=== PATIENT | female | born 1975 | race Caucasian/White ===

== ENCOUNTER 2017-11-22 15:17 | Emergency (ER) | payer OTHER ==
[2017-11-22 16:37] LABS: Absolute Lymphocytes (CBC) 1.5 K/uL (0.7-4.9); Absolute Monocytes 0.5 K/uL (0.1-1.3); Absolute Neutrophil 6.2 K/uL (1.8-8.0); Basophils % 0.7 % (0-1.3); Eosinophils % 3.8 % (0-4.4); Hematocrit 44.1 % (36.0-45.0); Lymphocytes % 17.9 % (15.3-44.8); MCH 28.2 pg (27.0-35.0); MCV 85.8 fL (80-100); MPV 7.6 fL (7.6-11.3); Monocytes % 6.1 % (3.3-12.3); RBC Red Blood Cell Count 5.14 M/uL (3.86-4.86)
[2017-11-22 16:46] LABS: ALT/SGPT 32 U/L (12-78); AST/SGOT 16 U/L (15-37); Albumin 3.3 g/dL (3.4-5.0); Alkaline Phosphatase 123 U/L (45-117); BUN Blood Urea Nitrogen 10 mg/dL (7-18); Bicarbonate 27 mmol/L (21-32); Bilirubin Direct < 0.1 mg/dL (0-0.2); Bilirubin Total 0.3 mg/dL (0.2-1.0); Glucose Level 90 mg/dL (74-106); Protein, Total 7.1 g/dL (6.4-8.2); Sodium Level 141 mmol/L (136-145)
--- NOTE | 2017-11-22 16:50 | ER ---
Nurse's Notes [facility] Name: Skye Figueroa Age: 42 yrs Sex: Female : 1975 Arrival Date: 11/22/2017 Time: 15:19 Bed 25 Private MD: Terry Felix E Diagnosis: Tinea corporis Presentation: 11/22 15:29 Presenting complaint: Patient states: " I was dx w/ a fungal infection at Dr Hood's ph office and he gave me some cream to put on it. It started getting better but then yesterday it started swelling up and burning." Rash noted to L outer calve, redness and swelling noted, pt reports itching, burning and pain, denies fever. Transition of care: patient was not received from another setting of care. Onset of symptoms was November 22, 2017. Risk Assessment: Do you want to hurt yourself or someone else? Patient reports no desire to harm self or others. Initial Sepsis Screen: Does the patient meet any 2 criteria? No. Patient's initial sepsis screen is negative. Does the patient have a suspected source of infection? No. Patient's initial sepsis screen is negative. Care prior to arrival: None. 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 - Social history:: Smoking status: Patient/guardian denies using tobacco. - Ebola Screening: : No symptoms or risks identified at this time. Screenin:26 Abuse screen: Denies threats or abuse. Denies injuries from another. Nutritional kr2 screening: No deficits noted. Tuberculosis screening: No symptoms or risk factors identified. Fall Risk None identified. Assessment: 15:40 General: Appears in no apparent distress. comfortable, obese, Behavior is calm, kr2 cooperative. Pain: Complains of pain in left lower leg Pain does not radiate. Pain currently is 2 out of 10 on a pain scale. Quality of pain is described as burning, tender, Is continuous, Alleviated by nothing. Neuro: Level of Consciousness is awake, alert, obeys commands, Oriented to person, place, time, situation. Cardiovascular: Capillary refill < 3 seconds in bilateral fingers Patient's skin is warm and dry. Respiratory: Airway is patent Respiratory effort is even, unlabored, Respiratory pattern is regular. Derm: Skin is healthy with good turgor, Skin is pink, warm \\T\\ dry. Rash noted that is itchy, red, Patient reports she was seen by her primary doctor and given an antifungal cream. Initially it got better but today it was worse. Rash is contained to small area on left lower leg. 17:02 Reassessment: Patient appears in no apparent distress at this time. Patient and/or kr2 family updated on plan of care and expected duration. Pain level reassessed. Patient is alert, oriented x 3, equal unlabored respirations, skin warm/dry/pink. Vital Signs: 15:34 BP 132 / 70; Pulse 75; Resp 18; Temp 98.3; Pulse Ox 97% on R/A; Pain 7/10; ph ED Course: 15:19 Patient arrived in ED. mr 15:19 Terry Felix MD is Private Physician. mr 15:32 Triage completed. ph 15:34 Arm band placed on Patient placed in an exam room. ph 15:35 Gallito Kincaid PA is PHCP. cp 15:36 Gallito Navarrete MD is Attending Physician. cp 15:40 Patient has correct armband on for positive identification. Bed in low position. Call kr2 light in reach. Side rails up X 1. Pulse ox on. NIBP on. Head of bed elevated. 15:46 Jazmin Nj, CALEB is Primary Nurse. kr2 16:18 Inserted saline lock: 20 gauge antecubital area, using aseptic technique. Blood ss collected. 16:49 Terry Felix MD is Referral Physician. cp 17:02 No provider procedures requiring assistance completed. IV discontinued, intact, kr2 bleeding controlled, No redness/swelling at site. Pressure dressing applied. Administered Medications: No medications were administered Outcome: 16:49 Discharge ordered by . cp 17:02 Discharged to home ambulatory. kr2 17:02 Condition: good 17:02 Discharge instructions given to patient, Instructed on discharge instructions, follow up and referral plans. medication usage, Demonstrated understanding of instructions, follow-up care, medications, Prescriptions given X 2. 17:03 Patient left the ED. kr2 Signatures: Maya Roe Shelby, RN RN Geri Almeida RN RN Gallito Corbett PA PA cp Reaves, Karey, RN RN kr2
--- NOTE | 2017-11-22 16:51 | EDPHYS ---
Physician Documentation [facility] Name: Skye Figueroa Age: 42 yrs Sex: Female : 1975 Arrival Date: 11/22/2017 Time: 15:19 Bed 25 Private MD: Terry Felix E ED Physician Gallito Navarrete HPI: 11/22 16:00 This 42 yrs old Female presents to ER via Ambulatory with complaints of Leg cp Infection. 16:00 Onset: The symptoms/episode began/occurred at an unknown time. cp 16:00 Associated signs and symptoms: Pertinent positives: burning pain, Pertinent negatives: cp fever. Patient reports she was prescribed antifungual and steroid cream to use twice per day. Has been using cream for past 1 week. Initial improvement, but now appears worse. 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 - Social history:: Smoking status: Patient/guardian denies using tobacco. - Ebola Screening: : No symptoms or risks identified at this time. ROS: 16:05 Constitutional: Negative for body aches, chills, fever, poor PO intake. cp 16:05 Eyes: Negative for injury, pain, redness, and discharge. cp 16:05 ENT: Negative for drainage from ear(s), ear pain, sore throat, difficulty swallowing, difficulty handling secretions. 16:05 Cardiovascular: Negative for chest pain, palpitations. 16:05 Respiratory: Negative for cough, shortness of breath, wheezing. 16:05 Abdomen/GI: Negative for abdominal pain, nausea, vomiting, and diarrhea, constipation. 16:05 MS/extremity: Positive for pain, of the left lower leg. 16:05 Skin: Positive for rash, of the left lower leg. 16:05 All other systems are negative. Exam: 16:11 Constitutional: The patient appears in no acute distress, alert, awake, non-toxic, well cp developed, well nourished. 16:11 Head/Face: Normocephalic, atraumatic. cp 16:11 Eyes: Periorbital structures: appear normal, Conjunctiva: normal, no exudate, no injection, Lids and lashes: appear normal, bilaterally. 16:11 ENT: External ear(s): are unremarkable, Nose: is normal, Mouth: is normal, Posterior pharynx: is normal, airway is patent. 16:11 Chest/axilla: Inspection: normal. 16:11 Cardiovascular: Rate: normal. 16:11 Respiratory: the patient does not display signs of respiratory distress, Respirations: normal, no use of accessory muscles, no retractions, no splinting, no tachypnea, labored breathing, is not present. 16:11 Skin: abscess, not appreciated, cellulitis, is not appreciated, injury, is not appreciated, consistent with ringworm, on the lateral aspect left lower leg. Vital Signs: 15:34 BP 132 / 70; Pulse 75; Resp 18; Temp 98.3; Pulse Ox 97% on R/A; Pain 7/10; ph MDM: 15:37 Patient medically screened. 11/22 15:54 Order name: CBC with Diff; Complete Time: 16:44 cp 11/22 16:45 Interpretation: Normal except: RBC 5.14; MCV 85.8. cp 11/22 15:54 Order name: BMP; Complete Time: 16:48 cp 11/22 16:48 Interpretation: Normal except: GFR 79. cp 11/22 15:54 Order name: LFT's; Complete Time: 16:48 cp 11/22 16:48 Interpretation: Normal except: ALK 123; ALB 3.3; GLOB 3.8; A/G 0.9. cp Administered Medications: No medications were administered Disposition: 11/23 06:44 Co-signature as Attending Physician, Gallito Navarrete MD I agree with the assessment and cj plan of care. Disposition: 11/22/17 16:49 Discharged to Home. Impression: Tinea corporis. - Condition is Stable. - Discharge Instructions: Body Ringworm. - Prescriptions for Diflucan 100 mg Oral tablet - take 1 tablet by ORAL route once daily for 7 days; 7 tablet. Clotrimazole 1 % Topical Cream - Apply to affected area 1 application by TOPICAL route every 12 hours; 15 gram. - Medication Reconciliation Form, Thank You Letter, Antibiotic Education, Prescription Opioid Use form. - Follow up: Terry Felix MD; When: 1 week; Reason: rash persists. - Problem is new. - Symptoms are unchanged. Signatures: Dispatcher [employer] EDOK Gallito Navarrete MD MD cha Hall, Patricia RN RN Galilto Kincaid PA PA cp Jazmin Nj RN RN kr2 Corrections: (The following items were deleted from the chart) 11/22 17:03 16:49 11/22/2017 16:49 Discharged to Home. Impression: Tinea corporis. Condition is kr2 Stable. Forms are Medication Reconciliation Form, Thank You Letter, Antibiotic Education, Prescription Opioid Use. Follow up: Terry Felix; When: 1 week; Reason: rash persists. Problem is new. Symptoms are unchanged. cp
[2017-11-22 17:08] VITALS: BP 132/70; TEMP 98.3; O2SAT 97
== END 2017-11-22 17:03 | disposition home or self-care (01) ==
LOC: ER 15:17
DX: B35.4 Tinea corporis (principal); Z88.5 Allergy status to narcotic agent; Z88.6 Allergy status to analgesic agent
CPT/HCPCS: 36415; 80048; 80076; 85025; 99284

== ENCOUNTER 2018-05-14 02:03 | Emergency (ER) | payer OTHER ==
--- OUTSIDE RECORDS SUMMARY | 2018-05-14 02:06 | XMS REPORT ---
:1975 [facility] Address [address] [place] [address] Dr. Antoine. [address] [place] [id number] Care Team Providers Name Role Phone Unavailable Unavailable Unavailable Problems This patient has no known problems. Allergies, Adverse Reactions, Alerts This patient has no known allergies or adverse reactions. Medications This patient has no known medications.
--- NOTE | 2018-05-14 02:40 | EDPHYS ---
Physician Documentation [facility] Name: Skye Figueroa Age: 43 yrs Sex: Female : 1975 Arrival Date: 05/14/2018 Time: 02:08 Bed 14 Private MD: Terry Felix E ED Physician Tima Black HPI: 05/14 02:34 This 43 yrs old Female presents to ER via Ambulatory with complaints of Rash. pkl 02:34 The rash is located on the both upper extremities, neck and anterior chest. The rash pkl can be described as papular. Onset: The symptoms/episode began/occurred 2 week(s) ago. Associated signs and symptoms: Pertinent positives: itching. The patient has not experienced similar symptoms in the past. 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 - Social history:: Smoking status: Patient/guardian denies using tobacco, Patient/guardian denies using alcohol. - Ebola Screening: : No symptoms or risks identified at this time. ROS: 02:34 Eyes: Negative for injury, pain, redness, and discharge, ENT: Negative for injury, pkl pain, and discharge, Neck: Negative for injury, pain, and swelling, Cardiovascular: Negative for chest pain, palpitations, and edema, Respiratory: Negative for shortness of breath, cough, wheezing, and pleuritic chest pain, Abdomen/GI: Negative for abdominal pain, nausea, vomiting, diarrhea, and constipation, Back: Negative for injury and pain, : Negative for injury, bleeding, discharge, and swelling, MS/Extremity: Negative for injury and deformity, Neuro: Negative for headache, weakness, numbness, tingling, and seizure. 02:34 Skin: Positive for rash, of the both upper extremities, neck and anterior chest. Exam: 02:34 Head/Face: Normocephalic, atraumatic. Eyes: Pupils equal round and reactive to light, pkl extra-ocular motions intact. Lids and lashes normal. Conjunctiva and sclera are non-icteric and not injected. Cornea within normal limits. Periorbital areas with no swelling, redness, or edema. ENT: Nares patent. No nasal discharge, no septal abnormalities noted. Tympanic membranes are normal and external auditory canals are clear. Oropharynx with no redness, swelling, or masses, exudates, or evidence of obstruction, uvula midline. Mucous membranes moist. Neck: Trachea midline, no thyromegaly or masses palpated, and no cervical lymphadenopathy. Supple, full range of motion without nuchal rigidity, or vertebral point tenderness. No Meningismus. Chest/axilla: Normal chest wall appearance and motion. Nontender with no deformity. No lesions are appreciated. Cardiovascular: Regular rate and rhythm with a normal S1 and S2. No gallops, murmurs, or rubs. Normal PMI, no JVD. No pulse deficits. Respiratory: Lungs have equal breath sounds bilaterally, clear to auscultation and percussion. No rales, rhonchi or wheezes noted. No increased work of breathing, no retractions or nasal flaring. Abdomen/GI: Soft, non-tender, with normal bowel sounds. No distension or tympany. No guarding or rebound. No evidence of tenderness throughout. Back: No spinal tenderness. No costovertebral tenderness. Full range of motion. MS/ Extremity: Pulses equal, no cyanosis. Neurovascular intact. Full, normal range of motion. Neuro: Awake and alert, GCS 15, oriented to person, place, time, and situation. Cranial nerves II-XII grossly intact. Motor strength 5/5 in all extremities. Sensory grossly intact. Cerebellar exam normal. Normal gait. 02:34 Skin: on the both upper extremities, neck and anterior chest. Vital Signs: 02:10 BP 131 / 96; Pulse 77; Resp 16; Temp 97.9(O); Pulse Ox 100% on R/A; Weight 113.4 kg jb4 (R); Height 5 ft. 4 in. (162.56 cm) (R); Pain 0/10; 02:45 BP 126 / 69; Pulse 81; Resp 16; Pulse Ox 95% ; jb4 02:10 Body Mass Index 42.91 (113.40 kg, 162.56 cm) jb4 MDM: 02:28 Patient medically screened. pkl 02:34 Data reviewed: vital signs, nurses notes. pkl Administered Medications: 02:44 Drug: Decadron 10 mg Route: IM; Site: right gluteus; jb4 03:09 Follow up: Response: No adverse reaction jb4 Disposition: 05/14/18 02:40 Discharged to Home. Impression: Contact dermatitis. - Condition is Stable. - Medication Reconciliation Form, Thank You Letter, Antibiotic Education, Prescription Opioid Use form. - Follow up: Christiano Cool MD; When: 2 - 3 days; Reason: Re-evaluation by your physician. - Problem is new. - Symptoms are unchanged. Signatures: Tima Black MD MD pkl Charlie Abbott RN RN jb4 Corrections: (The following items were deleted from the chart) 03:10 02:40 05/14/2018 02:40 Discharged to Home. Impression: Contact dermatitis. Condition is jb4 Stable. Forms are Medication Reconciliation Form, Thank You Letter, Antibiotic Education, Prescription Opioid Use. Follow up: Christiano Cool; When: 2 - 3 days; Reason: Re-evaluation by your physician. Problem is new. Symptoms are unchanged. pkl
--- NOTE | 2018-05-14 02:40 | ER ---
Nurse's Notes [facility] Name: Skye Figueroa Age: 43 yrs Sex: Female : 1975 Arrival Date: 05/14/2018 Time: 02:08 Bed 14 Private MD: Terry Felix E Diagnosis: Contact dermatitis Presentation: 05/14 02:10 Presenting complaint: Patient states: I have had a rash for the past 2 weeks and it has jb4 not gotten any better and is now getting worse. I took Benadryl at 2330 tonight. Transition of care: patient was not received from another setting of care. Onset of symptoms was April 29, 2018. Risk Assessment: Do you want to hurt yourself or someone else? Patient reports no desire to harm self or others. Initial Sepsis Screen: Does the patient meet any 2 criteria? No. Patient's initial sepsis screen is negative. Does the patient have a suspected source of infection? No. Patient's initial sepsis screen is negative. Care prior to arrival: None. 02:10 Method Of Arrival: Ambulatory jb4 02:10 Acuity: NIDA 4 jb4 Triage Assessment: 02:10 General: Appears in no apparent distress. comfortable, Behavior is calm, cooperative, jb4 appropriate for age. Pain: Denies pain. EENT: No signs and/or symptoms were reported regarding the EENT system. Neuro: Level of Consciousness is awake, alert, obeys commands, Oriented to person, place, time, situation. Cardiovascular: Patient's skin is warm and dry. Respiratory: Airway is patent Respiratory effort is even, unlabored, Respiratory pattern is regular, symmetrical, Breath sounds are clear bilaterally. Denies shortness of breath labored breathing. GI: No signs and/or symptoms were reported involving the gastrointestinal system. : No signs and/or symptoms were reported regarding the genitourinary system. Derm: Skin is intact, Skin is pink, warm \T\ dry. Rash noted that is itchy, red, Reports itching. Musculoskeletal: Circulation, motion, and sensation intact. 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 - Social history:: Smoking status: Patient/guardian denies using tobacco, Patient/guardian denies using alcohol. - Ebola Screening: : No symptoms or risks identified at this time. Screenin:10 Abuse screen: Denies threats or abuse. Nutritional screening: No deficits noted. jb4 Tuberculosis screening: No symptoms or risk factors identified. Fall Risk None identified. Assessment: 02:10 General: see triage assessment.. jb4 03:00 Reassessment: Patient appears in no apparent distress at this time. Patient and/or jb4 family updated on plan of care and expected duration. Pain level reassessed. Patient is alert, oriented x 3, equal unlabored respirations, skin warm/dry/pink. Vital Signs: 02:10 BP 131 / 96; Pulse 77; Resp 16; Temp 97.9(O); Pulse Ox 100% on R/A; Weight 113.4 kg jb4 (R); Height 5 ft. 4 in. (162.56 cm) (R); Pain 0/10; 02:45 BP 126 / 69; Pulse 81; Resp 16; Pulse Ox 95% ; jb4 02:10 Body Mass Index 42.91 (113.40 kg, 162.56 cm) jb4 ED Course: 02:08 Patient arrived in ED. es 02:08 Terry Felix MD is Private Physician. es 02:10 Arm band placed on left wrist. jb4 02:10 Patient has correct armband on for positive identification. Bed in low position. Call jb4 light in reach. Side rails up X 1. Pulse ox on. NIBP on. 02:16 Charlie Abbott, CALEB is Primary Nurse. jb4 02:18 Triage completed. jb4 02:28 Tima Black MD is Attending Physician. pkl 02:39 Christiano Cool MD is Referral Physician. pkl 03:08 No provider procedures requiring assistance completed. Patient did not have IV access jb4 during this emergency room visit. Administered Medications: 02:44 Drug: Decadron 10 mg Route: IM; Site: right gluteus; jb4 03:09 Follow up: Response: No adverse reaction jb4 Outcome: 02:40 Discharge ordered by . roman 03:08 Discharged to home ambulatory. jb4 03:08 Condition: stable 03:08 Discharge instructions given to patient, Instructed on discharge instructions, follow up and referral plans. medication usage, Demonstrated understanding of instructions, follow-up care, medications, Prescriptions given X 3. 03:10 Patient left the ED. jb4 Signatures: Tima Black MD MD pkl Salyer, Edna es Bryson, James, RN RN jb4
[2018-05-14] MEDS ORDERED: DEXAMETHASONE 4 MG/ML VIAL ONE (02:48)
[2018-05-14 03:14] VITALS: TEMP 97.9
[2018-05-14 03:15] VITALS: BP 126/69; O2SAT 95
== END 2018-05-14 03:10 | disposition home or self-care (01) ==
LOC: ER 02:03
DX: L25.9 Unspecified contact dermatitis, unspecified cause (principal); G43.909 Migraine, unspecified, not intractable, without status migrainosus; Z79.899 Other long term (current) drug therapy
CPT/HCPCS: 96372; 99283

== ENCOUNTER 2018-06-21 17:14 | Emergency (ER) | payer OTHER ==
--- OUTSIDE RECORDS SUMMARY | 2018-06-21 17:17 | XMS REPORT ---
:1975 [facility] Address [address] [place] [address] Dr. Antoine. [address] [place] [id number] Care Team Providers Name Role Phone Unavailable Unavailable Unavailable Problems This patient has no known problems. Allergies, Adverse Reactions, Alerts This patient has no known allergies or adverse reactions. Medications This patient has no known medications.
--- NOTE | 2018-06-21 18:12 | ER ---
Nurse's Notes [facility] Name: Skye Figueroa Age: 43 yrs Sex: Female : 1975 Arrival Date: 06/21/2018 Time: 17:17 Bed 12 Private MD: Terry Felix E Diagnosis: Allergic contact dermatitis Presentation: 06/21 17:18 Presenting complaint: Patient states: "rash all over my body. Last time this came up I sv was seen here and Dr Navarrete gave me some prescriptions. I'm under a lot of stress and that's what flares it up.". Transition of care: patient was not received from another setting of care. Onset of symptoms was June 19, 2018. Care prior to arrival: None. 17:18 Method Of Arrival: Ambulatory sv 17:18 Acuity: NIDA 5 sv 18:17 Risk Assessment: Do you want to hurt yourself or someone else? Patient reports no sv desire to harm self or others. Initial Sepsis Screen: Does the patient meet any 2 criteria? No. Patient's initial sepsis screen is negative. Does the patient have a suspected source of infection? No. Patient's initial sepsis screen is negative. Triage Assessment: 17:18 General: Appears in no apparent distress. comfortable, obese, well groomed, well sv developed, Behavior is calm, cooperative, appropriate for age. Pain: Denies pain. Neuro: Level of Consciousness is awake, alert, obeys commands, Oriented to person, place, time, situation, Moves all extremities. Full function Gait is steady. Respiratory: Respiratory effort is even, unlabored, Respiratory pattern is regular, symmetrical. Derm: Skin is pink, warm \\T\\ dry. Rash noted that is itchy, raised, on chest, right arm and left arm. Musculoskeletal: Range of motion: intact in all extremities. Historical: - Allergies: 17:20 Naproxen; sv 17:20 tramadol; sv - PMHx: 17:20 BRAIN TUMOR; Hydrocephalus; Migraines; sv - PSHx: 17:20 shunt; Knee surgery; Appendectomy; Cholecystectomy; new shunt 2010; eye sx; brain; sv - Immunization history:: Flu vaccine is not up to date. - Social history:: Smoking status: Patient/guardian denies using tobacco. - Ebola Screening: : No symptoms or risks identified at this time. Screenin:18 Abuse screen: Denies threats or abuse. Denies injuries from another. Nutritional sv screening: No deficits noted. Tuberculosis screening: No symptoms or risk factors identified. Fall Risk None identified. Assessment: 18:01 Reassessment: Patient appears in no apparent distress at this time. No changes from sv previously documented assessment. Patient and/or family updated on plan of care and expected duration. Pain level reassessed. Patient is alert, oriented x 3, equal unlabored respirations, skin warm/dry/pink. 18:16 Reassessment: Patient appears in no apparent distress at this time. No changes from sv previously documented assessment. Patient and/or family updated on plan of care and expected duration. Pain level reassessed. Patient is alert, oriented x 3, equal unlabored respirations, skin warm/dry/pink. Vital Signs: 17:20 BP 155 / 90; Pulse 90; Resp 18; Temp 98.2; Pulse Ox 96% ; Weight 127.01 kg; Height 5 sv ft. 4 in. (162.56 cm); Pain 0/10; 17:20 Body Mass Index 48.06 (127.01 kg, 162.56 cm) sv ED Course: 17:17 Patient arrived in ED. mr 17:18 Terry Felix MD is Private Physician. mr 17:18 Patient has correct armband on for positive identification. Call light in reach. Door sv closed. 17:19 Triage completed. sv 17:20 Arm band placed on. sv 17:39 Susan Wilson FNP-C is PHCP. snw 17:39 Gallito Navarrete MD is Attending Physician. snw 17:59 Hollie Marks, ACLEB is Primary Nurse. iw 18:11 Terry Felix MD is Referral Physician. snw 18:16 No provider procedures requiring assistance completed. Patient did not have IV access sv during this emergency room visit. Administered Medications: 18:16 Drug: Atarax 50 mg Route: PO; sv 18:16 Follow up: Response: Medication administered at discharge. sv Outcome: 18:11 Discharge ordered by . snw 18:16 Discharged to home ambulatory. sv 18:16 Condition: stable 18:16 Discharge instructions given to patient, Instructed on discharge instructions, follow up and referral plans. medication usage, Demonstrated understanding of instructions, follow-up care, medications, Prescriptions given X 2. 18:17 Patient left the ED. sv Signatures: Antonieta Bullock, RN RN Susan Morrison, ESTHETICIAN FACIALIST-C ESTHETICIAN FACIALIST-Csnw Bhupinder Talita mr Hollie Marks, CALEB RN iw
--- NOTE | 2018-06-21 18:12 | EDPHYS ---
Physician Documentation [facility] Name: Skye Figueroa Age: 43 yrs Sex: Female : 1975 Arrival Date: 06/21/2018 Time: 17:17 Bed 12 Private MD: Terry Felix E ED Physician Gallito Navarrete HPI: 06/21 18:09 This 43 yrs old Female presents to ER via Ambulatory with complaints of Rash. snw 18:09 The patient's rash thought to be caused by Dermatitis. The rash is located on the left snw arm and right arm and chest. The rash can be described as erythematous, papular, patchy. Onset: The symptoms/episode began/occurred suddenly. Associated signs and symptoms: Pertinent positives: itching. Severity of symptoms: At their worst the symptoms were mild moderate. The patient has experienced similar episodes in the past. It is unknown whether or not the patient has recently seen a physician. Historical: - Allergies: 17:20 Naproxen; sv 17:20 tramadol; sv - PMHx: 17:20 BRAIN TUMOR; Hydrocephalus; Migraines; sv - PSHx: 17:20 shunt; Knee surgery; Appendectomy; Cholecystectomy; new shunt 2010; eye sx; brain; sv - Immunization history:: Flu vaccine is not up to date. - Social history:: Smoking status: Patient/guardian denies using tobacco. - Ebola Screening: : No symptoms or risks identified at this time. ROS: 18:09 Constitutional: Negative for fever, chills, and weight loss, Eyes: Negative for injury, snw pain, redness, and discharge, ENT: Negative for injury, pain, and discharge, Neck: Negative for injury, pain, and swelling, Cardiovascular: Negative for chest pain, palpitations, and edema, Respiratory: Negative for shortness of breath, cough, wheezing, and pleuritic chest pain, Abdomen/GI: Negative for abdominal pain, nausea, vomiting, diarrhea, and constipation, Back: Negative for injury and pain, : Negative for injury, bleeding, discharge, and swelling, MS/Extremity: Negative for injury and deformity, Neuro: Negative for headache, weakness, numbness, tingling, and seizure, Psych: Negative for depression, anxiety, suicide ideation, homicidal ideation, and hallucinations. 18:09 Skin: Positive for rash. Exam: 18:10 Constitutional: This is a well developed, well nourished patient who is awake, alert, snw and in no acute distress. Head/Face: Normocephalic, atraumatic. Eyes: Pupils equal round and reactive to light, extra-ocular motions intact. Lids and lashes normal. Conjunctiva and sclera are non-icteric and not injected. Cornea within normal limits. Periorbital areas with no swelling, redness, or edema. ENT: Nares patent. No nasal discharge, no septal abnormalities noted. Tympanic membranes are normal and external auditory canals are clear. Oropharynx with no redness, swelling, or masses, exudates, or evidence of obstruction, uvula midline. Mucous membranes moist. Neck: Trachea midline, no thyromegaly or masses palpated, and no cervical lymphadenopathy. Supple, full range of motion without nuchal rigidity, or vertebral point tenderness. No Meningismus. Chest/axilla: Normal chest wall appearance and motion. Nontender with no deformity. No lesions are appreciated. Cardiovascular: Regular rate and rhythm with a normal S1 and S2. No gallops, murmurs, or rubs. Normal PMI, no JVD. No pulse deficits. Respiratory: Lungs have equal breath sounds bilaterally, clear to auscultation and percussion. No rales, rhonchi or wheezes noted. No increased work of breathing, no retractions or nasal flaring. Abdomen/GI: Soft, non-tender, with normal bowel sounds. No distension or tympany. No guarding or rebound. No evidence of tenderness throughout. Back: No spinal tenderness. No costovertebral tenderness. Full range of motion. MS/ Extremity: Pulses equal, no cyanosis. Neurovascular intact. Full, normal range of motion. Neuro: Awake and alert, GCS 15, oriented to person, place, time, and situation. Cranial nerves II-XII grossly intact. Motor strength 5/5 in all extremities. Sensory grossly intact. Cerebellar exam normal. Normal gait. Psych: Awake, alert, with orientation to person, place and time. Behavior, mood, and affect are within normal limits. 18:10 Skin: Appearance: normal except for affected area, rash can be described as erythematous, papular, contact dermatitis, on the left arm and right arm and chest. Vital Signs: 17:20 BP 155 / 90; Pulse 90; Resp 18; Temp 98.2; Pulse Ox 96% ; Weight 127.01 kg; Height 5 sv ft. 4 in. (162.56 cm); Pain 0/10; 17:20 Body Mass Index 48.06 (127.01 kg, 162.56 cm) sv MDM: 17:39 Patient medically screened. [facility] 18:12 Data reviewed: vital signs, nurses notes. Data interpreted: Pulse oximetry: on room air snw is 96 %. Interpretation: normal. Counseling: I had a detailed discussion with the patient and/or guardian regarding: the historical points, exam findings, and any diagnostic results supporting the discharge/admit diagnosis, the need for outpatient follow up, to return to the emergency department if symptoms worsen or persist or if there are any questions or concerns that arise at home. Special discussion: Based on the history and exam findings, there is no indication for further emergent testing or inpatient evaluation. I discussed with the patient/guardian the need to see the primary care provider for further evaluation of the symptoms. Administered Medications: 18:16 Drug: Atarax 50 mg Route: PO; 18:16 Follow up: Response: Medication administered at discharge. Disposition: 06/22 08:22 Co-signature as Attending Physician, Gallito Navarrete MD I agree with the assessment and [facility] plan of care. Disposition: 06/21/18 18:11 Discharged to Home. Impression: Allergic contact dermatitis. - Condition is Stable. - Discharge Instructions: Allergies, Adult, Contact Dermatitis. - Prescriptions for Vistaril 25 mg Oral capsule - take 1 capsule by ORAL route 3 times per day As needed; 30 capsule. Pepcid 20 mg Oral Tablet - take 1 tablet by ORAL route every 12 hours for 10 days; 20 tablet. - Medication Reconciliation Form, Thank You Letter, Antibiotic Education, Prescription Opioid Use form. - Follow up: Terry Felix MD; When: 2 - 3 days; Reason: Recheck today's complaints, Continuance of care, Re-evaluation by your physician. Follow up: Emergency Department; When: As needed; Reason: Worsening of condition. Signatures: Antonieta Bullock RN RN sv Anderson, Corey, MD MD cha Therrien, Shelly, SOLID DIE CUTTER-C SOLID DIE CUTTER-Csnw Corrections: (The following items were deleted from the chart) 06/21 18:17 18:11 06/21/2018 18:11 Discharged to Home. Impression: Allergic contact dermatitis. sv Condition is Stable. Forms are Medication Reconciliation Form, Thank You Letter, Antibiotic Education, Prescription Opioid Use. Follow up: Terry Felix; When: 2 - 3 days; Reason: Recheck today's complaints, Continuance of care, Re-evaluation by your physician. Follow up: Emergency Department; When: As needed; Reason: Worsening of condition. snw
[2018-06-21] MEDS ORDERED: hydrOXYzine HCl 25 MG TAB ONE (18:23)
[2018-06-21 18:53] VITALS: BP 155/90; TEMP 98.2; O2SAT 96
== END 2018-06-21 18:17 | disposition home or self-care (01) ==
LOC: ER 17:14
DX: L23.9 Allergic contact dermatitis, unspecified cause (principal); Z88.5 Allergy status to narcotic agent; Z98.2 Presence of cerebrospinal fluid drainage device
CPT/HCPCS: 99283

== ENCOUNTER 2018-09-21 14:51 | Emergency (ER) | payer OTHER ==
--- OUTSIDE RECORDS SUMMARY | 2018-09-21 14:53 | XMS REPORT ---
:1975 [facility] Address [address] [place] [address] Dr. Antoine. [address] [place] [id number] Care Team Providers Name Role Phone Unavailable Unavailable Unavailable Problems This patient has no known problems. Allergies, Adverse Reactions, Alerts This patient has no known allergies or adverse reactions. Medications This patient has no known medications.
--- NOTE | 2018-09-21 15:49 | RAD REPORT ---
EXAM DESCRIPTION: CT - Head Brain Wo Cont - 09/21/2018 3:39 pm CLINICAL HISTORY: brain tumor Headache, drowsiness COMPARISON: Head Brain Wo Cont dated 07/18/2015; HEAD BRAIN W O CONTRAST dated 12/19/2013; Head C Spin e Mpr Wo Con dated 08/02/2016 TECHNIQUE: All CT scans are performed using dose optimization technique as appropriate and may inclu de automated exposure control or mA/KV adjustment according to patient size. FINDINGS: No intracranial hemorrhage, hydrocephalus or extra-axial fluid collection.Right-sided shun t tubing is unchanged. Ventricular caliber is stable since comparative studies.No midline shift or ne w intracranial abnormality detected. The paranasal sinuses and mastoids are clear. Left posterior fossa postsurgical changes involving the calvarium. Vertebral arteries are atherosclerotic. IMPRESSION: No acute intracranial abnormality.
[2018-09-21] MEDS ORDERED: ACYCLOVIR 400 MG TABLET ONE (18:15)
[2018-09-21] MEDS ORDERED: predniSONE 20 MG TAB ONE (18:16)
--- NOTE | 2018-09-21 19:26 | EDPHYS ---
Physician Documentation [facility] Name: Skye Figueroa Age: 43 yrs Sex: Female : 1975 Arrival Date: 09/21/2018 Time: 14:52 Bed 13 Private MD: ED Physician Rigo Espino HPI: 09/21 15:42 This 43 yrs old Female presents to ER via Ambulatory with complaints of snw Numbness Of Face. 15:42 The patient's problem is reported as paresthesias, in left side of face. Onset: The snw symptoms/episode began/occurred 1 week(s) ago, and became persistent. Duration: The episodes are intermittent, the symptoms became persistent. Context: occurred at home, occurred while the patient was at rest, Possible contributing factors include: stress, pt with hx of vp of technology shunt, last revised 7 years ago. . Associated signs and symptoms: The patient has no apparent associated signs or symptoms. Severity of symptoms: At their worst the symptoms were mild moderate. Patient's baseline: Neuro: alert and fully oriented, Motor: no deficits, Ambulation: walks without assistance, Speech: normal, The patient has a previous history of hydrocephalus, vp of technology shunt. It is unknown whether or not the patient has had similar symptoms in the past. sees Dr. Eid. 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 - Social history:: Smoking status: Patient/guardian denies using tobacco. - Ebola Screening: : Patient denies travel to an Ebola-affected area in the 21 days before illness onset. ROS: 15:41 Constitutional: Negative for fever, chills, and weight loss, Eyes: Negative for injury, snw pain, redness, and discharge, ENT: Negative for injury, pain, and discharge, Neck: Negative for injury, pain, and swelling, Cardiovascular: Negative for chest pain, palpitations, and edema, Respiratory: Negative for shortness of breath, cough, wheezing, and pleuritic chest pain, Abdomen/GI: Negative for abdominal pain, nausea, vomiting, diarrhea, and constipation, Back: Negative for injury and pain, : Negative for injury, bleeding, discharge, and swelling, MS/Extremity: Negative for injury and deformity, Skin: Negative for injury, rash, and discoloration, Psych: Negative for depression, anxiety, suicide ideation, homicidal ideation, and hallucinations. 15:41 Neuro: Positive for numbness, of the left mormon, left zygomatic area and left cheek. Exam: 15:40 Constitutional: This is a well developed, well nourished patient who is awake, alert, snw and in no acute distress. Eyes: Pupils equal round and reactive to light, extra-ocular motions intact. Lids and lashes normal. Conjunctiva and sclera are non-icteric and not injected. Cornea within normal limits. Periorbital areas with no swelling, redness, or edema. ENT: Nares patent. No nasal discharge, no septal abnormalities noted. Tympanic membranes are normal and external auditory canals are clear. Oropharynx with no redness, swelling, or masses, exudates, or evidence of obstruction, uvula midline. Mucous membranes moist. Neck: Trachea midline, no thyromegaly or masses palpated, and no cervical lymphadenopathy. Supple, full range of motion without nuchal rigidity, or vertebral point tenderness. No Meningismus. Chest/axilla: Normal chest wall appearance and motion. Nontender with no deformity. No lesions are appreciated. Cardiovascular: Regular rate and rhythm with a normal S1 and S2. No gallops, murmurs, or rubs. Normal PMI, no JVD. No pulse deficits. Respiratory: Lungs have equal breath sounds bilaterally, clear to auscultation and percussion. No rales, rhonchi or wheezes noted. No increased work of breathing, no retractions or nasal flaring. Abdomen/GI: Soft, non-tender, with normal bowel sounds. No distension or tympany. No guarding or rebound. No evidence of tenderness throughout. Back: No spinal tenderness. No costovertebral tenderness. Full range of motion. Skin: Warm, dry with normal turgor. Normal color with no rashes, no lesions, and no evidence of cellulitis. MS/ Extremity: Pulses equal, no cyanosis. Neurovascular intact. Full, normal range of motion. Neuro: Awake and alert, GCS 15, oriented to person, place, time, and situation. Cranial nerves II-XII grossly intact. Motor strength 5/5 in all extremities. Sensory grossly intact. Cerebellar exam normal. Normal gait. Psych: Awake, alert, with orientation to person, place and time. Behavior, mood, and affect are within normal limits. 15:40 Head/face: Noted is no obvious of injury or deformity except paresthesias and numbness to left face and tongue. 17:43 Radiologist reports: negative for acute findings snw Vital Signs: 15:07 BP 133 / 82; Pulse 95; Resp 18; Temp 98.4; Pulse Ox 97% on R/A; Height 5 ft. 4 in. aj1 (162.56 cm) (R); Pain 0/10; 16:00 BP 132 / 90; Pulse 92; Resp 17; Temp 98.6(O); Pulse Ox 96% on R/A; Pain 0/10; rb1 16:53 BP 123 / 93; Pulse 94; Resp 17; Pulse Ox 96% on R/A; Pain 0/10; rb1 17:50 BP 161 / 89; Pulse 89; Resp 18; Temp 98.5(O); Pulse Ox 97% on R/A; Pain 0/10; rb1 MDM: 15:13 Patient medically screened. snw 17:42 Data reviewed: vital signs, nurses notes. Data interpreted: Pulse oximetry: on room air snw is 96 %. Interpretation: normal. Counseling: I had a detailed discussion with the patient and/or guardian regarding: the historical points, exam findings, and any diagnostic results supporting the discharge/admit diagnosis, the presence of at least one elevated blood pressure reading (>120/80) during this emergency department visit, radiology results, the need for outpatient follow up, to return to the emergency department if symptoms worsen or persist or if there are any questions or concerns that arise at home. Special discussion: Based on the history and exam findings, there is no indication for further emergent testing or inpatient evaluation. I discussed with the patient/guardian the need to see the primary care provider for further evaluation of the symptoms. 09/21 17:34 Order name: Head Brain Wo Cont; Complete Time: 17:43 EDMS Administered Medications: 18:03 Drug: predniSONE 40 mg Route: PO; rb1 18:09 Follow up: Response: Medication administered at discharge. rb1 18:03 Drug: Acyclovir 800 mg Route: PO; rb1 18:09 Follow up: Response: Medication administered at discharge. rb1 Disposition: 09/22 13:51 Co-signature as Attending Physician, Rigo Espino MD I agree with the assessment and kdr plan of care. Disposition: 09/21/18 17:39 Discharged to Home. Impression: Paresthesia of skin, Peter's palsy. - Condition is Stable. - Discharge Instructions: Peter Palsy, Adult, Paresthesia. - Prescriptions for Valtrex 1 g Oral Tablet - take 1 tablet by ORAL route every 8 hours for 7 days; 21 tablet. Prednisone 20 mg Oral Tablet - take 2 tablet by ORAL route once daily for 5 days; 10 tablet. Pepcid 20 mg Oral Tablet - take 1 tablet by ORAL route once daily for 10 days; 10 tablet. - Medication Reconciliation Form, Thank You Letter, Antibiotic Education, Prescription Opioid Use form. - Follow up: Private Physician; When: 2 - 3 days; Reason: Recheck today's complaints, Continuance of care, Re-evaluation by your physician. Follow up: Emergency Department; When: As needed; Reason: Worsening of condition. Signatures: Dispatcher [employer] [facility] Elma Waldrop RN RN aj1 Rigo Espino MD MD [facility] Susan Wilson, ADULT SCHOOL TEACHER-C ADULT SCHOOL TEACHER-Csnw Tara Hanson, RN RN rb1 Corrections: (The following items were deleted from the chart) 09/21 17:53 17:38 Head Brain Wo Cont+CT.RAD.BRZ ordered. [facility] 18:11 17:39 09/21/2018 17:39 Discharged to Home. Impression: Paresthesia of skin; Peter's rb1 palsy. Condition is Stable. Forms are Medication Reconciliation Form, Thank You Letter, Antibiotic Education, Prescription Opioid Use. Follow up: Private Physician; When: 2 - 3 days; Reason: Recheck today's complaints, Continuance of care, Re-evaluation by your physician. Follow up: Emergency Department; When: As needed; Reason: Worsening of condition. snw
--- NOTE | 2018-09-21 19:26 | ER ---
Nurse's Notes [facility] Name: Skye Figueroa Age: 43 yrs Sex: Female : 1975 Arrival Date: 09/21/2018 Time: 14:52 Bed 13 Private MD: Diagnosis: Paresthesia of skin;Peter's palsy Presentation: 09/21 15:03 Presenting complaint: Patient states: "For the last week I've been having off and on aj1 numbness on the left side of my tongue and mouth. I took Benadryl but it isn't helping." It comes and goes. Patient reports that she is having some numbness right now that started 10 minutes ago. 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 Transition of care: patient was not received from another setting of care. Onset of symptoms was September 21, 2018 at 15:06. Risk Assessment: Do you want to hurt yourself or someone else? Patient reports no desire to harm self or others. Initial Sepsis Screen: Does the patient meet any 2 criteria? No. Patient's initial sepsis screen is negative. Does the patient have a suspected source of infection? No. Patient's initial sepsis screen is negative. Care prior to arrival: None. 15:03 Method Of Arrival: Ambulatory aj1 15:03 Acuity: NIDA 3 aj1 Triage Assessment: 15:07 General: Appears in no apparent distress. comfortable, Behavior is calm, cooperative, aj1 appropriate for age. Pain: Denies pain. Neuro: Level of Consciousness is awake, alert, obeys commands, Oriented to person, place, time, situation, [place] are equal bilaterally Moves all extremities. Full function Speech is normal, Facial symmetry appears normal, Reports numbness left side of face. Cardiovascular: Patient's skin is warm and dry. Respiratory: Airway is patent Respiratory effort is even, unlabored, Respiratory pattern is regular, symmetrical. 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 - Social history:: Smoking status: Patient/guardian denies using tobacco. - Ebola Screening: : Patient denies travel to an Ebola-affected area in the 21 days before illness onset. Screenin:10 Abuse screen: Denies threats or abuse. Nutritional screening: No deficits noted. rb1 Tuberculosis screening: No symptoms or risk factors identified. Fall Risk None identified. Assessment: 15:10 General: Appears in no apparent distress. comfortable, Behavior is calm, cooperative. rb1 Pain: Denies pain. Neuro: Level of Consciousness is awake, alert, obeys commands, Oriented to person, place, time, situation, Reports numbness in left cheek and lips. Cardiovascular: Capillary refill < 3 seconds is brisk in bilateral fingers. Respiratory: Airway is patent Respiratory effort is even, unlabored, Respiratory pattern is regular, symmetrical. GI: No signs and/or symptoms were reported involving the gastrointestinal system. : No signs and/or symptoms were reported regarding the genitourinary system. Derm: Skin is pink, warm \\T\\ dry. Musculoskeletal: Range of motion: intact in all extremities. 16:00 Reassessment: Patient appears in no apparent distress at this time. No changes from rb1 previously documented assessment. 16:48 Reassessment: Called CT to get an update on when we would receive the results. They rb1 said that the results should be sent by fax. 17:00 Reassessment: Patient appears in no apparent distress at this time. Patient and/or rb1 family updated on plan of care and expected duration. Pain level reassessed. Patient is alert, oriented x 3, equal unlabored respirations, skin warm/dry/pink. Patient denies pain at this time. 18:00 Reassessment: Patient appears in no apparent distress at this time. No changes from rb1 previously documented assessment. Vital Signs: 15:07 BP 133 / 82; Pulse 95; Resp 18; Temp 98.4; Pulse Ox 97% on R/A; Height 5 ft. 4 in. aj1 (162.56 cm) (R); Pain 0/10; 16:00 BP 132 / 90; Pulse 92; Resp 17; Temp 98.6(O); Pulse Ox 96% on R/A; Pain 0/10; rb1 16:53 BP 123 / 93; Pulse 94; Resp 17; Pulse Ox 96% on R/A; Pain 0/10; rb1 17:50 BP 161 / 89; Pulse 89; Resp 18; Temp 98.5(O); Pulse Ox 97% on R/A; Pain 0/10; rb1 ED Course: 14:52 Patient arrived in ED. as 15:06 Triage completed. aj1 15:07 Arm band placed on. aj1 15:13 Susan Wilson FNP-C [facility] snw 15:13 Rigo Espino MD is Attending Physician. snw 16:06 Tara Hanson, RN is Primary Nurse. rb1 17:00 Patient has correct armband on for positive identification. Bed in low position. Call rb1 light in reach. Side rails up X 1. Pulse ox on. NIBP on. Warm blanket given. Pillow given. 17:34 Head Brain Wo Cont In Process Unspecified. EDMS 18:09 No provider procedures requiring assistance completed. Patient did not have IV access rb1 during this emergency room visit. Administered Medications: 18:03 Drug: predniSONE 40 mg Route: PO; rb1 18:09 Follow up: Response: Medication administered at discharge. rb1 18:03 Drug: Acyclovir 800 mg Route: PO; rb1 18:09 Follow up: Response: Medication administered at discharge. rb1 Outcome: 17:39 Discharge ordered by . snw 18:09 Discharged to home ambulatory. rb1 18:09 Condition: stable 18:09 Discharge instructions given to patient, Instructed on discharge instructions, follow up and referral plans. medication usage, Demonstrated understanding of instructions, follow-up care, medications, Prescriptions given X 3. 18:11 Patient left the ED. rb1 Signatures: Dispatcher [employer] EDDC Elma Waldrop, RN RN aj1 Susan Wilson FNP-C FNP-Dania Douglas as Tara Hanson, RN RN rb1
[2018-09-21 21:40] VITALS: BP 161/89; TEMP 98.5; O2SAT 97
== END 2018-09-21 18:11 | disposition home or self-care (01) ==
LOC: ER 14:51
DX: G51.0 Bell's palsy (principal); Z88.5 Allergy status to narcotic agent; Z88.6 Allergy status to analgesic agent; Z98.2 Presence of cerebrospinal fluid drainage device
CPT/HCPCS: 70450; 99284; J7512

== ENCOUNTER 2019-04-19 19:07 | Emergency (ER) | payer OTHER ==
--- OUTSIDE RECORDS SUMMARY | 2019-04-19 19:09 | XMS REPORT ---
:1975 [facility] Address [address] [place] [address] Dr. Antoine. [address] [place] [id number] Care Team Providers Name Role Phone Unavailable Unavailable Unavailable Problems This patient has no known problems. Allergies, Adverse Reactions, Alerts This patient has no known allergies or adverse reactions. Medications This patient has no known medications.
--- OUTSIDE RECORDS SUMMARY | 2019-04-19 19:09 | XMS REPORT | Summary of Care ---
:1975 Author Organization [facility] Address [address] [place] [id number] Care Team Providers Name Role Phone [facility] Primary [facility] Provider Unavailable Reason for Visit Reason Comments Notification The patient is requesting pain medication for her left knee. She fell on it and she is in pain Encounter Details Date Type Department Care Team Description 11/27/2018 Telephone [facility] Orthopaedic Denys Vázquez Notification ( The Surgery- Mirella Huston MD patient is requesting [address], [address] pain medication for her [address] left [place]. [place] [address] [place], [place] it and she is in pain ) [phone] [id number] Allergies Active Allergy Reactions Severity Noted Date Comments Tramadol Hallucinations 11/15/2014 documented as of this encounter (statuses as of 11/28/2018) Medications Medication Sig Dispensed Refills Start Date End Date Status gabapentin (NEURONTIN) Take 300 mg 0 Active 300 mg capsule by mouth 2 (two) times daily. norethin-e.estradiol Take 1 1 Package 12 09/29/2016 Active triphasic (ORTHO-NOVUM tablet by , ,) 0.5/0.75/1 mouth daily. mg- 35 mcg tabletIndications: control counseling, Menorrhagia with irregular cycle ibuprofen 800 mg Take 1 30 tablet 0 03/17/2017 Active tabletIndications: Pain tablet by pelvic mouth every 6 (six) hours as needed (heavy vaginal bleeding). HYDROCHLOROTHIAZIDE ORAL Take 10 mg 0 Active by mouth daily. acetaminophen-codeine Take 1 20 tablet 0 08/15/2017 Active 300-30 mg tablet tablet by mouth every 4 (four) hours as needed for Pain (scale 4-6) or Pain (scale 7-10). diclofenac 75 mg EC Take 1 60 tablet 1 11/28/2018 Active tablet tablet by mouth 2 (two) times daily with meals. diclofenac 75 mg EC Take 1 60 tablet 1 05/29/2018 11/29/19 Discontinued tablet tablet by 19 mouth 2 (two) times daily with meals. documented as of this encounter (statuses as of 11/28/2018) Active Problems Problem Noted Date Immune to varicella 09/30/2016 BMI 45.0-49.9, adult 09/29/2016 Excessive or frequent menstruation 09/22/2016 Knee pain, left 07/08/2015 documented as of this encounter (statuses as of 11/28/2018) Social History Tobacco Use Types Packs/Day Years Used Date Never Smoker Smokeless Tobacco: Never Used Alcohol Use Drinks/Week oz/Week Comments No 0 Standard drinks or equivalent 0.0 Sex Assigned at Date Recorded Not on file Job Start Date Occupation Industry Not on file Not on file Not on file Travel History Travel Start Travel End No recent travel history available. documented as of this encounter Last Filed Vital Signs Not on filedocumented in this encounter Plan of Treatment Health Maintenance Due Date Last Done Comments DTaP,Tdap,and Td Vaccines (1 - 1994 Tdap) MAMMOGRAM 2015 INFLUENZA VACCINE (#1) 2018 PAP SMEAR 09/30/2019 09/29/2016 PNEUMOCOCCAL 0-64 YEARS COMBINED Aged Out No longer eligible based on SERIES patient's age to complete this topic documented as of this encounter Results Not on filedocumented in this encounter Insurance Payer Benefit Plan / Subscriber ID Effective Dates Phone Address Type Group [facility] xxxxxxxxx 2016-Present Medicaid COMM PLAN - PLUS MANAGED MEDICAID documented as of this encounter
--- OUTSIDE RECORDS SUMMARY | 2019-04-19 19:09 | XMS REPORT | Summary of Care ---
:1975 Author Organization [facility] Address [address] [place] [address] Care Team Providers Name Role Phone Chrissie Francis [facility] Primary Care Provider Unavailable Reason for Visit Reason Comments Rx Concern/Question Encounter Details Date Type Department Care Team Description 11/28/2018 Telephone [facility] Orthopaedic Ismael Bradshaw, PAC Rx Concern/Question Surgery- [place] [address] [facility], [place] [address] [place] [id number] Allergies Active Allergy Reactions Severity Noted Date Comments Tramadol Hallucinations 11/15/2014 documented as of this encounter (statuses as of 11/29/2018) Medications Medication Sig Dispensed Refills Start Date End Date Status gabapentin (NEURONTIN) 300 Take 300 mg 0 Active mg capsule by mouth 2 (two) times daily. norethin-e.estradiol Take 1 tablet 1 Package 12 09/29/2016 Active triphasic (ORTHO-NOVUM by mouth , ,) 0.5/0.75/1 mg- daily. 35 mcg tabletIndications: control counseling, Menorrhagia with irregular cycle ibuprofen 800 mg Take 1 tablet 30 tablet 0 03/17/2017 Active tabletIndications: Pain by mouth pelvic every 6 (six) hours as needed (heavy vaginal bleeding). HYDROCHLOROTHIAZIDE ORAL Take 10 mg by 0 Active mouth daily. acetaminophen-codeine Take 1 tablet 20 tablet 0 08/15/2017 Active 300-30 mg tablet by mouth every 4 (four) hours as needed for Pain (scale 4-6) or Pain (scale 7-10). diclofenac 75 mg EC tablet Take 1 tablet 60 tablet 1 11/28/2018 Active by mouth 2 (two) times daily with meals. meloxicam (MOBIC) 7.5 mg Take 1 tablet 30 tablet 0 11/29/2018 12/29/2018 Active tablet by mouth daily before a meal for 30 days. documented as of this encounter (statuses as of 11/29/2018) Active Problems Problem Noted Date Immune to varicella 09/30/2016 BMI 45.0-49.9, adult 09/29/2016 Excessive or frequent menstruation 09/22/2016 Knee pain, left 07/08/2015 documented as of this encounter (statuses as of 11/29/2018) Social History Tobacco Use Types Packs/Day Years [...] ID Effective Dates Phone Address Type Group [facility] xxxxxxxxx 2016-Present Medicaid COMM PLAN - PLUS MANAGED MEDICAID documented as of this encounter
[2019-04-19] MEDS ORDERED: NA CHLORIDE 0.9% 500 ML ONE (19:55)
[2019-04-19 20:16] LABS: Absolute Lymphocytes (CBC) 1.6 K/uL (0.7-4.9); Basophils % 0.6 % (0-1.3); Hematocrit 43.7 % (36.0-45.0); Lymphocytes % 13.9 % (15.3-44.8); MPV 7.5 fL (7.6-11.3); RBC Red Blood Cell Count 5.39 M/uL (3.86-4.86)
[2019-04-19 20:29] LABS: Potassium 4.2 mmol/L (3.5-5.1)
--- NOTE | 2019-04-19 20:37 | RAD REPORT ---
EXAM DESCRIPTION: RAD - Chest Pa And Lat (2 Views) - 04/19/2019 8:22 pm CLINICAL HISTORY: Cough;SOB COMPARISON: Chest Single View dated 04/01/2017; Chest Pa And Lat (2 Views) dated 03/26/2017 TECHNIQUE: Frontal and lateral views of the chest were obtained. FINDINGS: The lungs are clear. Lung markings are similar to comparison. COUNTER ATTENDANT shunt tubing overlies th e right-side of the chest. Heart size is normal and central vasculature is within normal limits. No pleural effusion or pneumothorax seen. No acute bony finding noted. No aortic abnormality. Chest f indings are similar to comparison. IMPRESSION: No acute cardiopulmonary process.
--- NOTE | 2019-04-19 20:58 | ER ---
Nurse's Notes [facility] Name: Skye Figueroa Age: 44 yrs Sex: Female : 1975 Arrival Date: 04/19/2019 Time: 19:09 Bed 26 Private MD: Diagnosis: Acute laryngitis;Bronchitis, not specified as acute or chronic Presentation: 04/19 19:22 Presenting complaint: Patient states: "I've been feeling a little bad for the last 4 ca1 days. Then all of a sudden today I lost my voice, I started coughing, it hurts to breathe in and I get short of breath even with just sitting here right now". Reports vomiting 2 days ago. Reports chest pain with coughing. Denies N/V at this time. Denies fever. Transition of care: patient was not received from another setting of care. Onset of symptoms was April 19, 2019. Risk Assessment: Do you want to hurt yourself or someone else? Patient reports no desire to harm self or others. Initial Sepsis Screen: Does the patient meet any 2 criteria? No. Patient's initial sepsis screen is negative. Does the patient have a suspected source of infection? No. Patient's initial sepsis screen is negative. Care prior to arrival: None. 19:22 Method Of Arrival: Ambulatory ca1 19:22 Acuity: NIDA 3 ca1 Triage Assessment: 20:19 General: Appears in no apparent distress. comfortable. Respiratory: Onset: The mg2 symptoms/episode began/occurred 4 days ago, the patient has mild shortness of breath. 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 - Social history:: Smoking status: Patient/guardian denies using tobacco. - Ebola Screening: : Patient negative for fever greater than or equal to 101.5 degrees Fahrenheit, and additional compatible Ebola Virus Disease symptoms Patient denies exposure to infectious person Patient denies travel to an Ebola-affected area in the 21 days before illness onset No symptoms or risks identified at this time. Screenin:17 Abuse screen: Denies threats or abuse. Denies injuries from another. Nutritional mg2 screening: No deficits noted. Tuberculosis screening: No symptoms or risk factors identified. Fall Risk IV access (20 points). Assessment: 20:14 General: Appears in no apparent distress. comfortable, Behavior is calm, cooperative. mg2 Pain: Denies pain. Neuro: Level of Consciousness is awake, alert, obeys commands, Oriented to person, place, time, situation. Cardiovascular: Capillary refill < 3 seconds Patient's skin is warm and dry. Cardiovascular: Rhythm is regular. Respiratory: Airway is patent Respiratory effort is even, unlabored, Respiratory pattern is regular, symmetrical, Respiratory: Reports shortness of breath. GI: No signs and/or symptoms were reported involving the gastrointestinal system. : No signs and/or symptoms were reported regarding the genitourinary system. EENT: No signs and/or symptoms were reported regarding the EENT system. Derm: Skin is intact, is healthy with good turgor, Skin is pink, warm \\T\\ dry. normal. Musculoskeletal: Circulation, motion, and sensation intact. Capillary refill < 3 seconds. 21:09 Reassessment: Patient appears in no apparent distress at this time. Patient states mg2 feeling better. Vital Signs: 19:25 BP 133 / 78; Pulse 108; Resp 20 S; Temp 98.4(O); Pulse Ox 97% on R/A; Weight 117.93 kg ca1 (R); Height 5 ft. 4 in. (162.56 cm) (R); Pain 5/10; 21:00 BP 125 / 78; Pulse 98; Resp 18; Temp 98; Pulse Ox 100% on R/A; mg2 19:25 Body Mass Index 44.63 (117.93 kg, 162.56 cm) ca1 ED Course: 19:09 Patient arrived in ED. as 19:24 Triage completed. ca1 19:25 Arm band placed on right wrist. ca1 19:31 Barron Tinsley FNP-C [facility]. la1 19:31 Sam Parada MD is Attending Physician. la1 19:50 Gardose, Ajay, RN is Primary Nurse. mg2 20:10 Inserted saline lock: 20 gauge in right antecubital area, using aseptic technique. mg2 Blood collected. 20:17 Patient has correct armband on for positive identification. mg2 20:17 No provider procedures requiring assistance completed. mg2 20:23 Chest Pa And Lat (2 Views) XRAY In Process Unspecified. EDMS 21:01 IV discontinued, intact, bleeding controlled, No redness/swelling at site. Pressure mg2 dressing applied. Administered Medications: 20:14 Drug: NS 0.9% 500 ml Route: IV; Rate: bolus; Site: right antecubital; mg2 21:01 Follow up: Response: No adverse reaction; IV Status: Completed infusion; IV Intake: mg2 500ml Intake: 21:01 IV: 500ml; Total: 500ml. mg2 Outcome: 20:57 Discharge ordered by . la1 21:01 Discharged to home ambulatory, with family. mg2 21:01 Condition: stable 21:01 Discharge instructions given to patient, family, Instructed on discharge instructions, follow up and referral plans. medication usage, Demonstrated understanding of instructions, follow-up care, medications, Prescriptions given X 2. 21:10 Patient left the ED. mg2 Signatures: Dispatcher [employer] EDMS Dania Flynn Lee, ASBESTOS CEMENT SHEET SUPERVISOR-C ASBESTOS CEMENT SHEET SUPERVISOR-Cla1 Ajay North RN RN mg2 Candice Salgado RN RN ca1 Corrections: (The following items were deleted from the chart) 19:27 19:22 Presenting complaint: Patient states: "I've been feeling a little bad for the ca1 last 4 days. Then all of a sudden today I lost my voice, I started coughing, it hurts to breathe in and I get short of breath even with just sitting here right now". Reports vomiting 2 days ago. Denies N/V at this time. Denies fever. ca1 22:00 21:10 BP 125 / 78; Pulse 98bpm; Resp 18bpm; Pulse Ox 100% RA; Temp 98F; mg2 mg2
--- NOTE | 2019-04-19 20:58 | EDPHYS ---
Physician Documentation [facility] Name: Skye Figueroa Age: 44 yrs Sex: Female : 1975 Arrival Date: 04/19/2019 Time: 19:09 Bed 26 Private MD: ED Physician Sam Parada HPI: 04/19 19:49 This 44 yrs old Female presents to ER via Ambulatory with complaints of la1 Shortness Of Breath. 19:49 The patient has shortness of breath with light activity. Onset: The symptoms/episode la1 began/occurred 4 day(s) ago. Duration: The symptoms are continuous. The patient's shortness of breath is aggravated by nothing, is alleviated by nothing. Associated signs and symptoms: Pertinent positives: non-productive cough. Severity of symptoms: At their worst the symptoms were moderate. The patient has experienced a previous episode. Pt reports not feeling well for the last four days but cough that is getting worse in the last day along with some SOB. pt reports last time she felt this way she had pneumonia. 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 - Social history:: Smoking status: Patient/guardian denies using tobacco. - Ebola Screening: : Patient negative for fever greater than or equal to 101.5 degrees Fahrenheit, and additional compatible Ebola Virus Disease symptoms Patient denies exposure to infectious person Patient denies travel to an Ebola-affected area in the 21 days before illness onset No symptoms or risks identified at this time. ROS: 19:50 Eyes: Negative for injury, pain, redness, and discharge, ENT: Negative for injury, la1 pain, and discharge, Neck: Negative for injury, pain, and swelling, Cardiovascular: Negative for chest pain, palpitations, and edema. 19:50 Abdomen/GI: Negative for abdominal pain, nausea, vomiting, diarrhea, and constipation, Back: Negative for injury and pain, MS/Extremity: Negative for injury and deformity, Neuro: Negative for headache, weakness, numbness, tingling, and seizure. 19:50 Constitutional: Positive for malaise. 19:50 Respiratory: Positive for cough, with no reported sputum. Exam: 19:51 Constitutional: This is a well developed, well nourished patient who is awake, alert, la1 and in no acute distress. Head/Face: Normocephalic, atraumatic. Eyes: Pupils equal round and reactive to light, extra-ocular motions intact. Periorbital areas with no swelling, redness, or edema. ENT: Mucous membranes moist. Neck: Trachea midline, no thyromegaly or masses palpated, and no cervical lymphadenopathy. Supple, full range of motion without nuchal rigidity, or vertebral point tenderness. No Meningismus. Chest/axilla: Normal chest wall appearance and motion. Nontender with no deformity. No lesions are appreciated. Cardiovascular: Regular rate and rhythm with a normal S1 and S2. No gallops, murmurs, or rubs. Normal PMI, no JVD. No pulse deficits. 19:51 Abdomen/GI: Soft, non-tender, with normal bowel sounds. No distension or tympany. No guarding or rebound. No evidence of tenderness throughout. MS/ Extremity: Pulses equal, no cyanosis. Neurovascular intact. Full, normal range of motion. Neuro: Awake and alert, GCS 15, oriented to person, place, time, and situation. . Normal gait. 19:51 Respiratory: the patient does not display signs of respiratory distress, Respirations: normal, Breath sounds: decreased breath sounds, that are mild. Vital Signs: 19:25 BP 133 / 78; Pulse 108; Resp 20 S; Temp 98.4(O); Pulse Ox 97% on R/A; Weight 117.93 kg ca1 (R); Height 5 ft. 4 in. (162.56 cm) (R); Pain 5/10; 21:00 BP 125 / 78; Pulse 98; Resp 18; Temp 98; Pulse Ox 100% on R/A; mg2 19:25 Body Mass Index 44.63 (117.93 kg, 162.56 cm) ca1 MDM: 19:31 Patient medically screened. la1 20:55 Data reviewed: vital signs, nurses notes, lab test result(s), radiologic studies, and la1 as a result, I will discharge patient. Counseling: I had a detailed discussion with the patient and/or guardian regarding: the historical points, exam findings, and any diagnostic results supporting the discharge/admit diagnosis, lab results, the need for outpatient follow up, a family practitioner, to return to the emergency department if symptoms worsen or persist or if there are any questions or concerns that arise at home. Special discussion: Based on the patient's history, exam, and Dx evaluation, there is no indication for emergent intervention or inpatient Tx. It is understood by the patient/guardian that if the Sx's persist or worsen they need to return immediately for re-evaluation. 04/19 19:48 Order name: CBC with Diff; Complete Time: 20:42 la1 04/19 19:48 Order name: BMP; Complete Time: 20:42 la1 04/19 19:48 Order name: IV; Complete Time: 20:13 la1 04/19 19:48 Order name: Flu; Complete Time: 20:42 la1 04/19 19:48 Order name: Chest Pa And Lat (2 Views) XRAY; Complete Time: 20:42 la1 Administered Medications: 20:14 Drug: NS 0.9% 500 ml Route: IV; Rate: bolus; Site: right antecubital; mg2 21:01 Follow up: Response: No adverse reaction; IV Status: Completed infusion; IV Intake: mg2 500ml Disposition: 04/20 07:34 Co-signature as Attending Physician, Sam Parada MD I agree with the assessment and tw4 plan of care. Disposition: 04/19/19 20:57 Discharged to Home. Impression: Acute laryngitis, Bronchitis, not specified as acute or chronic. - Condition is Stable. - Discharge Instructions: Acute Bronchitis, Adult, Upper Respiratory Infection, Adult, Viral Respiratory Infection, Laryngitis, Yovv-uc-Uptm. - Prescriptions for Tessalon Perles 100 mg Oral Capsule - take 1 capsule by ORAL route every 8 hours As needed; 15 capsule. Zithromax Z- Pancho 250 mg Oral Tablet - take 1 tablet by ORAL route as directed for 5 days Day 1 - take two (2) tablets one time. Day 2, 3, 4 , 5 take one (1) tablet once daily.; 6 tablet. - Medication Reconciliation Form, Thank You Letter, Antibiotic Education, Family Work Release form. - Follow up: Private Physician; When: 2 - 3 days; Reason: Recheck today's complaints, Re-evaluation by your physician. Follow up: Emergency Department; When: As needed. - Problem is new. - Symptoms have improved. Signatures: Dispatcher [employer] EDMS Barron Tinsley, ENGRAVER BLOCK-C ENGRAVER BLOCK-Cla1 Sam Parada MD MD tw4 Ajay North, RN RN mg2 Candice Salgado RN RN ca1 Corrections: (The following items were deleted from the chart) 04/19 20:57 20:57 04/19/2019 20:57 Discharged to Home. Impression: Acute laryngitis; Bronchitis, la1 not specified as acute or chronic. Condition is Stable. Forms are Medication Reconciliation Form, Thank You Letter, Antibiotic Education, Prescription Opioid Use. Follow up: Private Physician; When: 2 - 3 days; Reason: Recheck today's complaints, Re-evaluation by your physician. Follow up: Emergency Department; When: As needed. la1 21:10 20:57 04/19/2019 20:57 Discharged to Home. Impression: Acute laryngitis; Bronchitis, mg2 not specified as acute or chronic. Condition is Stable. Forms are Medication Reconciliation Form, Thank You Letter, Antibiotic Education, Prescription Opioid Use. Follow up: Private Physician; When: 2 - 3 days; Reason: Recheck today's complaints, Re-evaluation by your physician. Follow up: Emergency Department; When: As needed. Problem is new. Symptoms have improved. la1
[2019-04-19 21:41] VITALS: BP 125/78; TEMP 98; O2SAT 100
== END 2019-04-19 21:10 | disposition home or self-care (01) ==
LOC: ER 19:07
DX: J40 Bronchitis, not specified as acute or chronic (principal); J04.0 Acute laryngitis; Z88.6 Allergy status to analgesic agent; G43.909 Migraine, unspecified, not intractable, without status migrainosus
CPT/HCPCS: 85025; 80048; 36415; 87804 ×2; 71046; 96360; 99284; J7040

== ENCOUNTER 2019-05-06 19:23 | Emergency (ER) | payer OTHER ==
--- OUTSIDE RECORDS SUMMARY | 2019-05-06 19:26 | XMS REPORT ---
:1975 [facility] Address [address] [place] [address] Dr. Antoine. [address] [place] [id number] Care Team Providers Name Role Phone Unavailable Unavailable Unavailable Problems This patient has no known problems. Allergies, Adverse Reactions, Alerts This patient has no known allergies or adverse reactions. Medications This patient has no known medications.
[2019-05-06] MEDS ORDERED: LEVALBUTEROL 1.25 MG/3 ML NEB ONE (20:20)
[2019-05-06] MEDS ORDERED: dexAMETHasone 10 MG/ML VIAL ONE (20:59)
[2019-05-06] MEDS ORDERED: WATER FOR INJ,STERILE 10 ML ONE (20:59)
[2019-05-06] MEDS ORDERED: CEFTRIAXONE 1000 MG/VIAL ONE (20:59)
--- NOTE | 2019-05-06 21:27 | EDPHYS ---
Physician Documentation [facility] Name: Skye Figueroa Age: 44 yrs Sex: Female : 1975 Arrival Date: 05/06/2019 Time: 19:26 Bed 23 Private MD: Terry Felix E ED Physician Tima Black HPI: 05/06 20:08 This 44 yrs old Female presents to ER via Ambulatory with complaints of Flu jmm Symptoms. 20:08 Onset: The symptoms/episode began/occurred gradually, 3 day(s) ago. Modifying factors: jmm The symptoms are alleviated by nothing. the symptoms are aggravated by nothing. Associated signs and symptoms: Pertinent positives: chest pain, with cough, with breathing, sore throat. This is a 44 year old female with a history of hydrocephalus that presents to the ED with complaints of cough, congestion, chest pain beginning 3 days ago worsening today. Patient states she awoke to sore throat today. Patient was recently treated for bronchitis. . 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 - Coronavirus screen:: The patient has NOT traveled to [place], [place], or [place] in the past 14 days. - Social history:: Smoking status: Patient/guardian denies using tobacco. - Ebola Screening: : Patient denies travel to an Ebola-affected area in the 21 days before illness onset. ROS: 20:08 Constitutional: Negative for fever, chills, and weight loss. jmm 20:08 ENT: Positive for sore throat. 20:08 Cardiovascular: Positive for chest pain, with cough. 20:08 Respiratory: Positive for cough. 20:08 All other systems are negative. Exam: 20:08 Constitutional: This is a well developed, well nourished patient who is awake, alert, jmm and in no acute distress. Head/Face: atraumatic. Eyes: EOMI, no conjunctival erythema appreciated 20:08 Neck: Trachea midline, Supple Chest/axilla: Normal chest wall appearance and motion. 20:08 Abdomen/GI: Non distended, soft Back: Normal ROM Skin: General appearance color normal MS/ Extremity: Moves all extremities, no obvious deformities appreciated, no edema noted to the lower extremities Neuro: Awake and alert, normal gait Psych: Behavior is normal, Mood is normal, Patient is cooperative and pleasant 20:08 ENT: Posterior pharynx: erythema, that is mild. 20:08 Cardiovascular: Rate: normal, Rhythm: regular, Pulses: no pulse deficits are appreciated. 20:08 Respiratory: the patient does not display signs of respiratory distress, Respirations: normal, Breath sounds: are clear throughout. Vital Signs: 19:55 BP 157 / 91; Pulse 92; Resp 20; Temp 98.9; Pulse Ox 98% on R/A; Weight 111.13 kg (R); aj1 Height 5 ft. 4 in. (162.56 cm) (R); Pain 6/10; 21:47 BP 122 / 90; Pulse 89; Resp 18; Temp 98.5(O); Pulse Ox 100% ; mg2 19:55 Body Mass Index 42.05 (111.13 kg, 162.56 cm) aj1 MDM: 20:08 Patient medically screened. [facility] 21:24 Data reviewed: vital signs, nurses notes. Counseling: I had a detailed discussion with presley the patient and/or guardian regarding: the historical points, exam findings, and any diagnostic results supporting the discharge/admit diagnosis, lab results, radiology results, the need for outpatient follow up, to return to the emergency department if symptoms worsen or persist or if there are any questions or concerns that arise at home. 21:24 ED course: Patient is alert and non toxic in appearance. CXR clear. Labs negative. presley Patient is advised to follow up with pcp and otherwise given strict return precautions. patient understood and agrees with the plan of care. . 05/06 20:01 Order name: Flu; Complete Time: 20:45 mg2 05/06 20:01 Order name: Strep; Complete Time: 20:45 mg2 05/06 20:09 Order name: Chest Single View XRAY [facility] 05/06 20:38 Order name: Throat Culture EDMS Administered Medications: 20:19 Drug: Xopenex (3) 1.25 mg Route: Inhalation; mg2 21:13 Follow up: Response: No adverse reaction; Marked relief of symptoms mg2 21:23 Drug: Rocephin (cefTRIAXone) 1 grams Route: IM; Site: right gluteus; mg2 21:47 Follow up: Response: No adverse reaction mg2 21:23 Drug: Decadron 10 mg Route: IM; Site: right gluteus; mg2 21:46 Follow up: Response: No adverse reaction mg2 Disposition: 22:04 Co-signature as Attending Physician, Tima Black MD. roman Disposition: 05/06/19 21:26 Discharged to Home. Impression: Acute bronchitis, Acute pharyngitis. - Condition is Stable. - Discharge Instructions: Acute Bronchitis, Adult, Pharyngitis. - Prescriptions for Bromfed DM 2- 30-10 mg/5 mL Oral syrup - take 10 milliliter by ORAL route every 4 hours; 1 bottle. cefdinir 300 mg Oral capsule - take 1 capsule by ORAL route every 12 hours; 20 capsule. Albuterol Sulfate 90 mcg/actuation - inhale 1-2 puff by INHALATION route every 4-6 hours; 1 Inhaler. - Medication Reconciliation Form, Thank You Letter, Antibiotic Education, Prescription Opioid Use form. - Follow up: Private Physician; When: 2 - 3 days; Reason: Recheck today's complaints, Continuance of care, Re-evaluation by your physician. Signatures: Dispatcher [employer] EDElma Valdes RN RN aj1 Tima Black MD MD pkl Oz Cote PA PA jmm Gardose, Michele, RN RN mg2 Corrections: (The following items were deleted from the chart) 21:49 21:26 05/06/2019 21:26 Discharged to Home. Impression: Acute bronchitis; Acute mg2 pharyngitis. Condition is Stable. Forms are Medication Reconciliation Form, Thank You Letter, Antibiotic Education, Prescription Opioid Use. Follow up: Private Physician; When: 2 - 3 days; Reason: Recheck today's complaints, Continuance of care, Re-evaluation by your physician. presley
--- NOTE | 2019-05-06 21:27 | ER ---
Nurse's Notes [facility] Name: Skye Figueroa Age: 44 yrs Sex: Female : 1975 Arrival Date: 05/06/2019 Time: 19:26 Bed 23 Private MD: Terry Felix E Diagnosis: Acute bronchitis;Acute pharyngitis Presentation: 05/06 19:53 Presenting complaint: Patient states: "My chest hurts, my whole body aches, I just got aj1 over bronchitis 2 weeks ago, I was feeling fine and then all the sudden, I got sick again" Reports cough, chills. Denies fever. Transition of care: patient was not received from another setting of care. Onset of symptoms was May 2019. Risk Assessment: Do you want to hurt yourself or someone else? Patient reports no desire to harm self or others. Initial Sepsis Screen: Does the patient meet any 2 criteria? Altered Mental Status. No. Patient's initial sepsis screen is negative. Does the patient have a suspected source of infection? Yes: Productive cough/pneumonia. Care prior to arrival: None. 19:53 Method Of Arrival: Ambulatory aj1 19:53 Acuity: NIDA 3 aj1 Triage Assessment: 19:55 General: Appears in no apparent distress. comfortable, Behavior is calm, cooperative, aj1 appropriate for age. Pain: Complains of pain in chest, left aspect of posterior pharynx and right aspect of posterior pharynx. EENT: Reports nasal congestion nasal discharge sore throat. Neuro: Level of Consciousness is awake, alert, obeys commands. Cardiovascular: Reports chest pain, Patient's skin is warm and dry. Respiratory: Reports cough that is hacking, persistent Airway is patent Respiratory effort is even, unlabored, Respiratory pattern is regular, symmetrical. 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 - Coronavirus screen:: The patient has NOT traveled to [place], [place], or [place] in the past 14 days. - Social history:: Smoking status: Patient/guardian denies using tobacco. - Ebola Screening: : Patient denies travel to an Ebola-affected area in the 21 days before illness onset. Screenin:52 Abuse screen: Denies threats or abuse. Denies injuries from another. Nutritional mg2 screening: No deficits noted. Tuberculosis screening: No symptoms or risk factors identified. Fall Risk None identified. Assessment: 20:51 General: Appears in no apparent distress. comfortable, Behavior is calm, cooperative. mg2 Pain: Denies pain. Neuro: Level of Consciousness is awake, alert, obeys commands, Oriented to person, place, time, situation. Cardiovascular: Capillary refill < 3 seconds Patient's skin is warm and dry. Respiratory: Airway is patent Respiratory effort is even, unlabored, Respiratory pattern is regular, symmetrical. Respiratory: Reports cough that is. GI: No signs and/or symptoms were reported involving the gastrointestinal system. : No signs and/or symptoms were reported regarding the genitourinary system. EENT: No signs and/or symptoms were reported regarding the EENT system. Derm: Skin is intact, is healthy with good turgor, Skin is pink, warm \\T\\ dry. normal. Musculoskeletal: Circulation, motion, and sensation intact. Capillary refill < 3 seconds. 21:24 Reassessment: Patient appears in no apparent distress at this time. Patient and/or mg2 family updated on plan of care and expected duration. Pain level reassessed. Patient is alert, oriented x 3, equal unlabored respirations, skin warm/dry/pink. Vital Signs: 19:55 BP 157 / 91; Pulse 92; Resp 20; Temp 98.9; Pulse Ox 98% on R/A; Weight 111.13 kg (R); aj1 Height 5 ft. 4 in. (162.56 cm) (R); Pain 6/10; 21:47 BP 122 / 90; Pulse 89; Resp 18; Temp 98.5(O); Pulse Ox 100% ; mg2 19:55 Body Mass Index 42.05 (111.13 kg, 162.56 cm) aj1 ED Course: 19:26 Patient arrived in ED. es 19:27 Terry Felix MD is Private Physician. es 19:54 Triage completed. aj1 19:55 Arm band placed on Patient placed in an exam room. aj1 19:57 Oz Cote PA is PHCP. [facility] 19:57 Tima Black MD is Attending Physician. [facility] 19:58 Ajay North, RN is Primary Nurse. mg2 20:11 Flu and/or RSV swab sent to lab. Strep swab sent to lab. lt1 20:11 Strep Sent. lt1 20:11 Flu Sent. lt1 20:49 Chest Single View XRAY In Process Unspecified. EDMS 20:52 Patient has correct armband on for positive identification. mg2 20:52 No provider procedures requiring assistance completed. Patient did not have IV access mg2 during this emergency room visit. Administered Medications: 20:19 Drug: Xopenex (3) 1.25 mg Route: Inhalation; mg2 21:13 Follow up: Response: No adverse reaction; Marked relief of symptoms mg2 21:23 Drug: Rocephin (cefTRIAXone) 1 grams Route: IM; Site: right gluteus; mg2 21:47 Follow up: Response: No adverse reaction mg2 21:23 Drug: Decadron 10 mg Route: IM; Site: right gluteus; mg2 21:46 Follow up: Response: No adverse reaction mg2 Outcome: 21:26 Discharge ordered by MD. [facility] 21:48 Discharged to home ambulatory, with family. mg2 21:48 Condition: stable 21:48 Discharge instructions given to patient, family, Instructed on discharge instructions, follow up and referral plans. medication usage, Demonstrated understanding of instructions, follow-up care, medications, Prescriptions given X 2. 21:49 Patient left the ED. mg2 Signatures: Dispatcher [employer] EDMS Elma Waldrop, RN RN aj Oz Cote PA PA jmm Salyer, Edna Ajay North, CALEB RN mg2 Sabi Avina lt1
[2019-05-06 22:11] VITALS: BP 122/90; TEMP 98.5; O2SAT 100
--- NOTE | 2019-05-07 08:03 | RAD REPORT ---
EXAM DESCRIPTION: RAD - Chest Single View - 05/06/2019 8:48 pm CLINICAL HISTORY: fever, cough COMPARISON: Chest Pa And Lat (2 Views) dated 04/19/2019 TECHNIQUE: AP portable chest image was obtained 05/06/2019 8:48 pm . FINDINGS: Lungs are clear. Heart and vasculature are normal. No measurable pleural effusion and no p neumothorax. No acute bony abnormality seen. No acute aortic findings suspected. Shunt tubing overlie s the right side of the chest. IMPRESSION: No acute cardiopulmonary process. No change from prior imaging.
== END 2019-05-06 21:49 | disposition home or self-care (01) ==
LOC: ER 19:23
DX: J20.9 Acute bronchitis, unspecified (principal); Z88.5 Allergy status to narcotic agent; Z88.6 Allergy status to analgesic agent
CPT/HCPCS: 87070; 87081; 87804 ×2; 71045; 96372; 99284; J1100

== ENCOUNTER 2019-09-10 18:50 | Emergency (ER) | payer OTHER ==
--- OUTSIDE RECORDS SUMMARY | 2019-09-10 19:45 | XMS REPORT | Continuity of Care Document ---
:1975 Author Organization [facility] t Address [address] Antoine[address] [place] [address] Care Team Providers Name Role Phone Kenneth Meyers Attending Clinician Betzaida Vázquez MD Attending Clinician Problems This patient has no known problems. Allergies, Adverse Reactions, Alerts This patient has no known allergies or adverse reactions. Medications This patient has no known medications. Procedures This patient has no known procedures. Encounters Start End Encounter Admission Attending Care Care Encounter Source Date/Time Date/Time Type Type Clinicians Facility Department ID 2018-11-28 2018-11-28 Telephone JACKIE Bradshaw [id number] 00:00:00 00:00:00 [facility] [id number] Surgical [id number] Specialti [id number] [address] [place] 2018-11-27 2018-11-27 Telephone JACKIE Vázquez [id number] 00:00[facility]00 [id number] [facility] [id number] Specialti [id number] [address] [place] Results This patient has no known results.
--- NOTE | 2019-09-10 20:34 | EDPHYS ---
Physician Documentation [facility] Name: Skye Figueroa Age: 44 yrs Sex: Female : 1975 Arrival Date: 09/10/2019 Time: 18:51 Bed 8 Private MD: ED Physician Alexander Amezcua HPI: 09/09 20:20 This 44 yrs old Female presents to ER via Ambulatory with complaints of cp Abscess. 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 - Social history:: Smoking status: Patient denies any tobacco usage or history of. ROS: 20:25 Constitutional: Negative for body aches, chills, fever. cp 20:25 ENT: Negative for ear pain, sore throat. cp 20:25 Respiratory: Negative for cough, shortness of breath, wheezing. 20:25 Abdomen/GI: Positive for rectal pain, Negative for abdominal pain, vomiting, diarrhea, constipation, rectal bleeding. 20:25 : Negative for urinary symptoms, flank pain, vaginal bleeding, vaginal discharge. 20:25 Skin: Negative for rash. 20:25 All other systems are negative. Exam: 20:28 Constitutional: The patient appears in no acute distress, alert, awake, well developed, cp well nourished. 20:28 Head/Face: Normocephalic, atraumatic. cp 20:28 Chest/axilla: Inspection: normal. 20:28 Cardiovascular: Rate: tachycardic. 20:28 Respiratory: the patient does not display signs of respiratory distress, Respirations: normal. 20:28 Abdomen/GI: Inspection: abdomen appears normal, Palpation: abdomen is soft and non-tender, in all quadrants, Rectal exam: hemorrhoid(s), external, with pain. Vital Signs: 19:00 Pulse 110; Resp 20; Temp 98.2(TE); Pulse Ox 98% ; Height 5 ft. 4 in. (162.56 cm); Pain ss 5/10; 19:03 BP 133 / 85; ss 20:30 BP 128 / 84; Pulse 98; Resp 18; Pulse Ox 99% on R/A; wh MDM: 20:16 Patient medically screened. 20:30 Differential diagnosis: hemorrhoids, fissure, abscess, pilonidal cyst. 20:33 Data reviewed: vital signs, nurses notes, and as a result, I will discharge patient. 20:33 Counseling: I had a detailed discussion with the patient and/or guardian regarding: the historical points, exam findings, and any diagnostic results supporting the discharge/admit diagnosis, to return to the emergency department if symptoms worsen or persist or if there are any questions or concerns that arise at home. Administered Medications: No medications were administered Disposition: 20:40 Chart complete. 09/10 02:12 Co-signature as Attending Physician, Alexander Amezcua MD. [email or web address] Disposition: 09/10/19 20:33 Discharged to Home. Impression: Hemorrhoids and perianal venous thrombosis. - Condition is Stable. - Discharge Instructions: Hemorrhoids, How to Take a Sitz Bath. - Prescriptions for Colace 100 mg Oral Tablet - take 1 tablet by ORAL route every 12 hours; 14 tablet. Anusol- HC 25 mg Rectal Suppository - insert 1 suppository by RECTAL route every 12 hours As needed; 20 suppository. - Medication Reconciliation Form, Thank You Letter, Antibiotic Education, Prescription Opioid Use form. - Follow up: Edgar Wall MD; When: 2 - 3 days; Reason: Worsening of condition. - Problem is new. - Symptoms are unchanged. Signatures: Raquel Watson RN RN Gallito Hernandez PA PA Tee Fernandez Alexander Amezcua MD MD [email or web address] Corrections: (The following items were deleted from the chart) 09/09 21:00 20:33 09/10/2019 20:33 Discharged to Home. Impression: Hemorrhoids and perianal venous wh thrombosis. Condition is Stable. Forms are Medication Reconciliation Form, Thank You Letter, Antibiotic Education, Prescription Opioid Use. Follow up: Edgar Wall; When: 2 - 3 days; Reason: Worsening of condition. Problem is new. Symptoms are unchanged. cp
--- NOTE | 2019-09-10 20:34 | ER ---
Nurse's Notes [facility] Name: Skye Figueroa Age: 44 yrs Sex: Female : 1975 Arrival Date: 09/10/2019 Time: 18:51 Bed 8 Private MD: Diagnosis: Hemorrhoids and perianal venous thrombosis Presentation: 09/09 19:00 Chief complaint: Patient states: possible abscess to rectal area that began yesterday. ss Denies fever. Coronavirus screen: Proceed with normal triage. Patient denies a cough. Patient denies shortness of breath or difficulty breathing. Patient denies measured and/or subjective temperature greater than 100.4F prior to today's visit. Patient denies travel on a cruise ship or to a country the [facility] currently lists as an affected area. Patient denies contact with known and/or suspected case of COVID-19. Ebola Screen: Patient denies exposure to infectious person. Patient denies travel to an Ebola-affected area in the 21 days before illness onset. Initial Sepsis Screen: Does the patient meet any 2 criteria? No. Patient's initial sepsis screen is negative. Does the patient have a suspected source of infection? No. Patient's initial sepsis screen is negative. Risk Assessment: Do you want to hurt yourself or someone else? Patient reports no desire to harm self or others. Onset of symptoms was September 09, 2019. 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 - Social history:: Smoking status: Patient denies any tobacco usage or history of. Screenin:20 Abuse screen: Denies threats or abuse. Denies injuries from another. Nutritional wh screening: No deficits noted. Tuberculosis screening: No symptoms or risk factors identified. Fall Risk None identified. Assessment: 20:20 General: Appears in no apparent distress. Behavior is calm, cooperative, appropriate wh for age. Pain: Complains of pain in Perianal Area. Neuro: Level of Consciousness is awake, alert, obeys commands, Oriented to person, place, time, situation, Appropriate for age. Cardiovascular: Capillary refill < 3 seconds. Respiratory: Airway is patent Respiratory effort is even, unlabored, Respiratory pattern is regular, symmetrical. GI: Abdomen is flat, non-distended, Reports Perianal Pain. : No signs and/or symptoms were reported regarding the genitourinary system. EENT: No signs and/or symptoms were reported regarding the EENT system. Derm: Skin is intact, is healthy with good turgor, Skin is pink, warm \T\ dry. normal. Musculoskeletal: Circulation, motion, and sensation intact. 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 Vital Signs: 19:00 Pulse 110; Resp 20; Temp 98.2(TE); Pulse Ox 98% ; Height 5 ft. 4 in. (162.56 cm); Pain ss 5/10; 19:03 BP 133 / 85; ss 20:30 BP 128 / 84; Pulse 98; Resp 18; Pulse Ox 99% on R/A; ED Course: 18:51 Patient arrived in ED. as 19:03 Triage completed. ss 19:03 Arm band placed on right wrist. ss 20:07 Tee Fernandez is Primary Nurse. 20:11 Gallito Kincaid PA is PHCP. cp 20:11 Alexander Amezcua MD is Attending Physician. cp 20:20 Patient has correct armband on for positive identification. Placed in gown. Bed in low wh position. Call light in reach. Side rails up X 1. Pulse ox on. NIBP on. 20:32 Edgar Wall MD is Referral Physician. cp 20:57 No provider procedures requiring assistance completed. Patient did not have IV access wh during this emergency room visit. Administered Medications: No medications were administered Outcome: 20:33 Discharge ordered by . cp 20:58 Discharged to home ambulatory. 20:58 Condition: stable 20:58 Discharge instructions given to patient, Instructed on discharge instructions, follow up and referral plans. medication usage, POC Demonstrated understanding of instructions, follow-up care, medications, POC 21:00 Patient left the ED. 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
[2019-09-10 21:13] VITALS: TEMP 98.2
[2019-09-10 21:16] VITALS: BP 128/84; O2SAT 99
== END 2019-09-10 21:00 | disposition home or self-care (01) ==
LOC: ER 18:50
DX: K64.5 Perianal venous thrombosis (principal); Z88.6 Allergy status to analgesic agent; Z88.5 Allergy status to narcotic agent
CPT/HCPCS: 99283

== ENCOUNTER 2019-10-17 01:57 | Emergency (ER) | payer OTHER ==
--- OUTSIDE RECORDS SUMMARY | 2019-10-17 02:01 | XMS REPORT ---
:1975 Author Organization [employer] Care Team Providers Name Role Phone Cal Sunil Provider Role Unavailable Allergies, Adverse Reactions, Alerts Substance Reaction Event Type N.K.D.A. Info Not Available Non Drug Allergy Problems Problem Type Condition Code Onset Dates Condition Statu s Assessment Allergic rhinitis, unspecified J30.9 Active seasonality, unspecified trigger Assessment Migraine without aura and without G43.009 Active status migrainosus, not intractable Assessment Insomnia, unspecified type G47.00 A ctive Assessment Rectal pain K62.89 Active Assessment Hemorrhoids, unspecified hemorrhoid K64.9 Active type Assessment History of benign brain tumor Z86.011 Active Assessment 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 Problem Migraine without aura and without G43.009 Active status migrainosus, not intractable Problem Insomnia, unspecified type G47.00 A ctive Problem Essential hypertension I10 Activ e Assessment Essential hypertension I10 Activ e Assessment Neuropathic pain M79.2 Active Problem Allergic rhinitis, unspecified J30.9 Active seasonality, unspecified trigger Medications Medication Code Code Instructions Start End Status Dosage System Date Date Sumatriptan Succinate [facility] 88262604540 50 MG Orally A ctive 1 tablet Once a day as needed Montelukast Sodium [facility] 61840359698 10 MG Orally Acti ve 1 tablet Once a day Lyrica [facility] 41139658303 75 MG Orally Active 1 capsu le twice a day Hydrochlorothiazide [facility] 73301522757 25 MG Orally Act vivi 1 tablet Once a day in the morning Gabapentin [facility] [address]-03 100 MG Orally Active 1 capsule three times a day Ambien [facility] 87527153447 5 MG Orally Active 1 tablet Once a day at bedtime as needed Results No Known Results Summary Purpose eClinicalWorks Submission
--- OUTSIDE RECORDS SUMMARY | 2019-10-17 02:01 | XMS REPORT | Summary of Care ---
:1975 Author Organization [facility] - Health Address [address] [place] [address] Care Team Providers Name Role Phone Unavailable Primary Care Provider Unavailable Encounter Details Date Type Department Care Team Description 09/20/2019 Orders Only [facility] Doctor Unassigned, No [address] [facility] [place] [address] [address] [place] [address] Allergies Active Allergy Reactions Severity Noted Date Comments Tramadol Hallucinations 11/15/2014 documented as of this encounter (statuses as of 09/24/2019) Medications Medication Sig Dispensed Refills Start Date End Date Status gabapentin (NEURONTIN) 300 Take 300 mg by 0 Active mg capsule mouth 2 (two) times daily. norethin-e.estradiol Take 1 tablet 1 Package 12 09/29/2016 Active triphasic (ORTHO-NOVUM by mouth , ,) 0.5/0.75/1 mg- daily. 35 mcg tabletIndications: control counseling, Menorrhagia with irregular cycle ibuprofen 800 mg Take 1 tablet 30 tablet 0 03/17/2017 Active tabletIndications: Pain by mouth every pelvic 6 (six) hours as needed (heavy vaginal bleeding). HYDROCHLOROTHIAZIDE ORAL Take 10 mg by 0 Active mouth daily. acetaminophen-codeine Take 1 tablet 20 tablet 0 08/15/2017 Active 300-30 mg tablet by mouth every 4 (four) hours as needed for Pain (scale 4-6) or Pain (scale 7-10). diclofenac 75 mg EC tablet Take 1 tablet 60 tablet 1 9 Active by mouth 2 (two) times daily with meals. documented as of this encounter (statuses as of 09/24/2019) Active Problems Problem Noted Date Immune to varicella 09/30/2016 BMI 45.0-49.9, adult 09/29/2016 Excessive or frequent menstruation 09/22/2016 Knee pain, left 07/08/2015 documented as of this encounter (statuses as of 09/24/2019) Social History Tobacco Use Types Packs/Day Years [...] filedocumented in this encounter Plan of Treatment Date Type Specialty Care Team Description 10/11/2019 Office Visit Surgery Angelina Quinones MD [address] [facility] [address] [place] [address] [phone] Health Maintenance Due Date Last Done Comments DTaP,Tdap,and Td Vaccines (1 - 1986 Tdap) Depression Screening 1987 Breast Cancer Screening 2015 (MAMMOGRAM) PAP SMEAR 09/30/2019 09/29/2016 INFLUENZA VACCINE (Season Ended) 2019 PNEUMOCOCCAL 0-64 YEARS COMBINED Aged Out No longer eligible based on SERIES patient's age to complete this topic documented as of this encounter Procedures Procedure Name Priority Date/Time Associated Diagnosis Comme nts REFERRAL- Routine 09/20/2019 12:01 AM CDT REQUEST/RESPONSE documented in this encounter Results Not on filedocumented in this encounter Insurance Payer Benefit Plan / Subscriber ID Effective Dates Phone Addre ss Type Group [facility] xxxxxxxxx 2016-Present Medicaid COMM PLAN - PLUS MANAGED MEDICAID documented as of this encounter
--- OUTSIDE RECORDS SUMMARY | 2019-10-17 02:01 | XMS REPORT | Continuity of Care Document ---
:1975 Author Organization [facility] t Address [address] [place] [address] Care Team Providers Name Role Phone Doctor Unassigned, Name Attending Clinician Unavailable Leeann NAVARRETE, S Attending Clinician Gurpreet HAHN L Attending Clinician Problems Condition Condition Condition Status Onset Resolution Last Treating Co mments Source Name Details Category Date Date Treatment Clinician Date Allergic Allergic Problem [facility], [facility] - unspecifie unspecifie Me moria d d l seasonalit seasonalit Ou tpati y, y, ent unspecifie unspecifie Cl inics d trigger d trigger Migraine [facility]raine Problem [facility] without without [facility] - aura and aura and Memori a without without l status status Outpati migrainosu migrainosu en t s, not s, not Clinics intractabl intractabl e e Insomnia, Insomnia, Problem Active [facility] unspecifie unspecifie Mary kes - d type d type [facility] l [facility] Rectal Rectal Diagnosis Active [facility] pain pain [facility] - Memoria l [facility] Hemorrhoid Hemorrhoid Diagnosis Active [facility] s, s, [facility] - unspecifie unspecifie Me moria d d l hemorrhoid hemorrhoid Ou tpati type type ent Clinics History of History of Diagnosis Active [facility] benign benign [facility] - brain brain Memoria tumor tumor l [facility] S/P S/P Diagnosis Active [facility] ventricula ventricula Mary kes - r shunt r shunt Memoria placement placement l [facility] Essential Essential Diagnosis Active [facility] hypertensi hypertensi Mary kes - on on [facility] ent [facility] Neuropathi Neuropathi Diagnosis Active [facility] c pain c pain [facility] Clinics Allergies, Adverse Reactions, Alerts This patient has no known allergies or adverse reactions. Medications Ordered Filled Start Stop Current Ordering Indication Dosage Frequency Signature Comments Components Source Medication Medication Date Date Medication? Clinician (SIG) Name Name Sumatriptan Sumatriptan Yes Sunil [address] [facility] Succinate Succinate Mccall as needed [facility] Clinics Montelukast Montelukast Yes Sunil [address] [facility] Sodium Sodium Mccall [facility] Clin[facility] Lyrica Lyrica Yes Sunil [address] [facility] [facility] [address] [facility]ics Hydrochloro Hydrochloro Yes Sunil [address] [facility] thiazide thiazide M[place]all in the Luke s - morning [facility] ent Clinics Gabapentin Gabapentin Yes Sunil [address] [facility] Ambien Ambien Yes Sunil 1 tablet [facility] at bedtime [facility] - as needed [facility] Procedures This patient has no known procedures. Encounters Start End Encounter Admission Attending Care Care Encounter Source Date/Time Date/Time Type Type Clinicians Facility Department ID 2019-09-20 2019-09-20 Outpatient Asher Saucedo [id number] 09:00:00 09:00:00 [employer] [facility] Medicine Medicine [facility] 2019-09-20 2019-09-20 Orders Doctor LAUREN [id number] 00:00:00 00:00:00 Only Unassigned, NICHOLAS [id number] [place] [facility] [id number] 2018-11-28 2018-11-28 Telephone JACKIE Bradshaw [id number] 00:00:00 00:00:00 [facility] [id number] Surgical [id number] Specialti [id number] [address] 2018-11-27 2018-11-27 Telephone JACKIE Vázquez [id number] 00:00:00 00:00:00 [facility] [id number] Surgical [id number] Specialti [id number] [address] Results This patient has no known results.
[2019-10-17] MEDS ORDERED: predniSONE 20 MG TAB ONE (02:48)
--- NOTE | 2019-10-17 02:55 | EDPHYS ---
Physician Documentation [facility] Name: Skye Figueroa Age: 44 yrs Sex: Female : 1975 Arrival Date: 10/17/2019 Time: 02:00 Bed 20 Private MD: ED Physician Alexander Amezcua HPI: 10/16 02:37 This 44 yrs old Female presents to ER via Ambulatory with complaints of Rash. [facility] 02:37 The patient's rash thought to be caused by an unknown cause. The rash is located on the mh7 body diffusely. The rash can be described as papular. 02:38 Onset: The symptoms/episode began/occurred 5 day(s) ago. Associated signs and symptoms: [facility] Pertinent positives: itching, Pertinent negatives: burning sensation, difficulty breathing, fever, nausea, Pain swelling of lips, swelling of throat, swelling of tongue, vomiting, wheezing. Severity of symptoms: At their worst the symptoms were moderate last night, in the emergency department the symptoms have improved moderately. Treatment given at home: OTC lotion/cream. Historical: - Allergies: 02:10 Naproxen; jb4 02:10 tramadol; jb4 - Home Meds: 02:10 diclofenac Oral [Active]; Hydrochlorothiazide Oral [Active]; Imitrex Oral [Active]; jb4 Neurontin Oral [Active]; Singulair Oral [Active]; Ambien Oral [Active]; Lyrica Oral [Active]; montelukast oral oral [Active]; - PMHx: 02:10 BRAIN TUMOR; Hydrocephalus; Migraines; Chronic pain; jb4 - PSHx: 02:10 ARISTIDES eyes; Appendectomy; Cholecystectomy; jb4 - Immunization history:: Adult Immunizations up to date. - Social history:: Smoking status: Patient denies any tobacco usage or history of. Patient/guardian denies using alcohol, street drugs. ROS: 02:38 Constitutional: Negative for fever, chills, and weight loss, Eyes: Negative for injury, mh7 pain, redness, and discharge, ENT: Negative for injury, pain, and discharge, Neck: Negative for injury, pain, and swelling, Cardiovascular: Negative for chest pain, palpitations, and edema, Respiratory: Negative for shortness of breath, cough, wheezing, and pleuritic chest pain, Abdomen/GI: Negative for abdominal pain, nausea, vomiting, diarrhea, and constipation, Back: Negative for injury and pain, : Negative for injury, bleeding, discharge, and swelling, MS/Extremity: Negative for injury and deformity, Neuro: Negative for headache, weakness, numbness, tingling, and seizure, Psych: Negative for depression, anxiety, suicide ideation, homicidal ideation, and hallucinations, Allergy/Immunology: Negative for hives, rash, and allergies, Endocrine: Negative for neck swelling, polydipsia, polyuria, polyphagia, and marked weight changes, Hematologic/Lymphatic: Negative for swollen nodes, abnormal bleeding, and unusual bruising. Exam: 02:38 Constitutional: This is a well developed, well nourished patient who is awake, alert, mh7 and in no acute distress. Head/Face: Normocephalic, atraumatic. Eyes: Pupils equal round and reactive to light, extra-ocular motions intact. Lids and lashes normal. Conjunctiva and sclera are non-icteric and not injected. Cornea within normal limits. Periorbital areas with no swelling, redness, or edema. ENT: Nares patent. No nasal discharge, no septal abnormalities noted. Tympanic membranes are normal and external auditory canals are clear. Oropharynx with no redness, swelling, or masses, exudates, or evidence of obstruction, uvula midline. Mucous membranes moist. Neck: Trachea midline, no thyromegaly or masses palpated, and no cervical lymphadenopathy. Supple, full range of motion without nuchal rigidity, or vertebral point tenderness. No Meningismus. Chest/axilla: Normal chest wall appearance and motion. Nontender with no deformity. No lesions are appreciated. Cardiovascular: Regular rate and rhythm with a normal S1 and S2. No gallops, murmurs, or rubs. Normal PMI, no JVD. No pulse deficits. Respiratory: Lungs have equal breath sounds bilaterally, clear to auscultation and percussion. No rales, rhonchi or wheezes noted. No increased work of breathing, no retractions or nasal flaring. Abdomen/GI: Soft, non-tender, with normal bowel sounds. No distension or tympany. No guarding or rebound. No evidence of tenderness throughout. Back: No spinal tenderness. No costovertebral tenderness. Full range of motion. 02:38 MS/ Extremity: Pulses equal, no cyanosis. Neurovascular intact. Full, normal range of motion. Neuro: Awake and alert, GCS 15, oriented to person, place, time, and situation. Cranial nerves II-XII grossly intact. Motor strength 5/5 in all extremities. Sensory grossly intact. Cerebellar exam normal. Normal gait. Psych: Awake, alert, with orientation to person, place and time. Behavior, mood, and affect are within normal limits. 02:38 Skin: rash a mild rash is noted, rash can be described as papular, on the back, abdomen, right arm, left arm, right leg and left leg. Vital Signs: 02:10 BP 133 / 96; Pulse 84; Resp 16; Temp 97.4; Pulse Ox 96% on R/A; Weight 111.13 kg (R); jb4 Height 5 ft. 4 in. (162.56 cm) (R); Pain 0/10; 02:43 BP 119 / 63; Pulse 84; Resp 16; Pulse Ox 98% on R/A; jb4 02:10 Body Mass Index 42.05 (111.13 kg, 162.56 cm) [facility] MDM: 02:[address] [facility] 02:38 Differential diagnosis: allergic reaction, Urticaria, dermatitis, non specific rash. [facility] Data reviewed: vital signs, nurses notes. 02:52 Counseling: I had a detailed discussion with the patient and/or guardian regarding: the [facility] historical points, exam findings, and any diagnostic results supporting the discharge/admit diagnosis, the need for outpatient follow up, to return to the emergency department if symptoms worsen or persist or if there are any questions or concerns that arise at home. Administered Medications: 02:43 Drug: predniSONE 60 mg Route: PO; [facility] 03:00 Follow up: Response: No adverse reaction [facility] 02:43 Not Given (Medication is unavailable at this time.): Pepcid 20 mg PO once 4 Disposition: 10/17/19 02:53 Discharged to Home. Impression: Rash and other nonspecific skin eruption. - Condition is Stable. - Discharge Instructions: Rash, [id number]. - Prescriptions for Benadryl 25 mg Oral Capsule - take 2 capsule by ORAL route every 6 hours As needed; 30 tablet. Pepcid 20 mg Oral Tablet - take 1 tablet by ORAL route every 12 hours for 5 days; 10 tablet. Prednisone 20 mg Oral Tablet - take 2 tablet by ORAL route once daily for 5 days; 10 tablet. - Medication Reconciliation Form, Thank You Letter, Antibiotic Education, Prescription Opioid Use form. - Follow up: Private Physician; When: 1 - 2 days; Reason: Worsening of condition, Recheck today's complaints, Continuance of care, Re-evaluation by your physician. Follow up: Christiano Cool MD; When: 2 - 3 days; Reason: Worsening of condition, Recheck today's complaints. - Problem is an ongoing problem. - Symptoms have improved. Signatures: Charlie Abbott RN RN jb4 Alexander Amezcua MD MD mh7 Corrections: (The following items were deleted from the chart) 03:02 02:53 10/17/2019 02:53 Discharged to Home. Impression: Rash and other nonspecific skin jb4 eruption. Condition is Stable. Forms are Medication Reconciliation Form, Thank You Letter, Antibiotic Education, Prescription Opioid Use. Follow up: Private Physician; When: 1 - 2 days; Reason: Worsening of condition, Recheck today's complaints, Continuance of care, Re-evaluation by your physician. Follow up: Christiano Cool; When: 2 - 3 days; Reason: Worsening of condition, Recheck today's complaints. Problem is an ongoing problem. Symptoms have improved. mh7
--- NOTE | 2019-10-17 02:55 | ER ---
Nurse's Notes [facility] Name: Skye Figueroa Age: 44 yrs Sex: Female : 1975 Arrival Date: 10/17/2019 Time: 02:00 Bed 20 Private MD: Diagnosis: Rash and other nonspecific skin eruption Presentation: 10/16 02:10 Chief complaint: Patient states: I have a rash that started on Tuesday. I came here to [facility] get it looked at and was sent home. It got better until last night when I started to break out again. It's on my lower legs, upper arms, chest, and back. It doesn't hurt really, it just duffy and itches. Coronavirus screen: Proceed with normal triage. Ebola Screen: No symptoms or risks identified at this time. Initial Sepsis Screen: Does the patient meet any 2 criteria? No. Patient's initial sepsis screen is negative. Does the patient have a suspected source of infection? No. Patient's initial sepsis screen is negative. Risk Assessment: Do you want to hurt yourself or someone else? Patient reports no desire to harm self or others. Onset of symptoms was October 12, 2019. Transition of care: patient was not received from another setting of care. 02:10 Method Of Arrival: Ambulatory 4 02:10 Acuity: NIDA 4 jb4 Historical: - Allergies: 02:10 Naproxen; jb4 02:10 tramadol; jb4 - Home Meds: 02:10 diclofenac Oral [Active]; Hydrochlorothiazide Oral [Active]; Imitrex Oral [Active]; jb4 Neurontin Oral [Active]; Singulair Oral [Active]; Ambien Oral [Active]; Lyrica Oral [Active]; montelukast oral oral [Active]; - PMHx: 02:10 BRAIN TUMOR; Hydrocephalus; Migraines; Chronic pain; jb4 - PSHx: 02:10 ARISTIDES eyes; Appendectomy; Cholecystectomy; jb4 - Immunization history:: Adult Immunizations up to date. - Social history:: Smoking status: Patient denies any tobacco usage or history of. Patient/guardian denies using alcohol, street drugs. Screenin:10 Abuse screen: Denies threats or abuse. Nutritional screening: No deficits noted. jb4 Tuberculosis screening: No symptoms or risk factors identified. Fall Risk None identified. Assessment: 02:10 General: Appears in no apparent distress. comfortable, Behavior is calm, cooperative, jb4 appropriate for age. Pain: Denies pain. Neuro: Level of Consciousness is awake, alert, obeys commands, Oriented to person, place, time, situation. Cardiovascular: Patient's skin is warm and dry. Respiratory: Airway is patent Respiratory effort is even, unlabored, Respiratory pattern is regular, symmetrical. GI: No signs and/or symptoms were reported involving the gastrointestinal system. : No signs and/or symptoms were reported regarding the genitourinary system. EENT: No signs and/or symptoms were reported regarding the EENT system. Derm: Skin is intact, Skin is pink, warm \T\ dry. Rash noted that is itchy, red, raised, on ARISTIDES lower extremities and upper extremities, back, and chest. Musculoskeletal: Circulation, motion, and sensation intact. Range of motion: intact in all extremities. 02:43 Reassessment: Patient appears in no apparent distress at this time. Patient and/or jb4 family updated on plan of care and expected duration. Pain level reassessed. Patient is alert, oriented x 3, equal unlabored respirations, skin warm/dry/pink. Vital Signs: 02:10 BP 133 / 96; Pulse 84; Resp 16; Temp 97.4; Pulse Ox 96% on R/A; Weight 111.13 kg (R); jb4 Height 5 ft. 4 in. (162.56 cm) (R); Pain 0/10; 02:43 BP 119 / 63; Pulse 84; Resp 16; Pulse Ox 98% on R/A; jb4 02:10 Body Mass Index 42.05 (111.13 kg, 162.56 cm) jb4 ED Course: 02:00 Patient arrived in ED. ds1 02:10 Arm band placed on right wrist. jb4 02:10 Patient has correct armband on for positive identification. Bed in low position. Call jb4 light in reach. Side rails up X 1. Pulse ox on. NIBP on. 02:12 Tee Fernandez is Primary Nurse. 02:13 Triage completed. jb4 02:16 Alexander Amezcua MD is Attending Physician. 7 02:53 Christiano Cool MD is Referral Physician. 7 03:02 No provider procedures requiring assistance completed. Patient did not have IV access jb4 during this emergency room visit. Administered Medications: 02:43 Drug: predniSONE 60 mg Route: PO; jb4 03:00 Follow up: Response: No adverse reaction jb4 02:43 Not Given (Medication is unavailable at this time.): Pepcid 20 mg PO once jb4 Outcome: 02:53 Discharge ordered by . mh7 03:02 Discharged to home ambulatory. jb4 03:02 Condition: stable 03:02 Discharge instructions given to patient, Instructed on discharge instructions, follow up and referral plans. medication usage, Demonstrated understanding of instructions, follow-up care, medications, Prescriptions given X 3. 03:02 Patient left the ED. jb4 Signatures: Christine Godfrey ds1 Charlie Abbott RN RN jb4 Tee Fernandez Maurice, MD MD mh7
[2019-10-17 03:13] VITALS: TEMP 97.4
[2019-10-17 03:14] VITALS: BP 119/63; O2SAT 98
== END 2019-10-17 03:02 | disposition home or self-care (01) ==
LOC: ER 01:57
DX: R21 Rash and other nonspecific skin eruption (principal); Z88.5 Allergy status to narcotic agent; Z88.6 Allergy status to analgesic agent
CPT/HCPCS: 99283; J7512

== ENCOUNTER 2019-11-25 23:42 | Emergency (ER) | payer OTHER ==
--- OUTSIDE RECORDS SUMMARY | 2019-11-25 23:45 | XMS REPORT | Continuity of Care Document ---
:1975 Author Organization [facility] t Address [address] [place] [address] Care Team Providers Name Role Phone Christiano Mccall DO Primary Care Physician Scarlett Mccall Attending Clinician Unavailable Christiano Mccall DO Attending Clinician Bridgette Mccall MD Attending Clinician Unavailable Joni HAHN Attending Clinician Payers Payer Name Policy Policy Number Effective Expiration Source Type Date Date MEDICAID - MEDICAID MGD xxxxxxxxx [facility] - PLANxxxxxxxxxMedicaid Med ical Contracted Center Problems Condition Condition Condition Status Onset Resolution [...] - d type d type [facility] Essential Essential Problem Active [facility] hypertensi hypertensi [facility] - on on [facility] Hyperthyro Hyperthyro Problem Active [facility] idism idism [facility] Abnormal Abnormal Problem Active [facility] mamm[facility] - of left of left [facility] breast breast l Outpati ent Clinics Morbid Morbid Problem Active [facility] (severe) (severe) [facility] - obesity obesity [facility] due to due to l excess excess Outpati calories calories ent Clinics Body mass Body mass Problem Active [facility] index index [facility] - (BMI) (BMI) Memoria 45.0-49.9, 45.0-49.9, l adult adult [facility] Abnormal Abnormal Problem Active [facility] - test test [facility] Allergies, Adverse Reactions, Alerts This patient has no known allergies or adverse reactions. Social History Social Habit Start Date Stop Date Quantity Comments Source Sex Assigned At [facility] Medications Ordered Filled Start Stop Current Ordering Indication Dosage Frequency Signature Comments Components Source Medication Medication Date Date Medication? Clinician (SIG) Name Name Ondansetron Ondansetron 2019-0 Yes Sunil [address] [facility] 8-18 Mccall on the [facility] - 00:00: tongue and Memoria 00 allow to l dissolve Outpati 30 minutes ent prior to Clinics meals Methimazole Methimazole 2019-0 Yes Sunil [address] [facility] Mccall once a day [facility] - 00:00: x 2 days [facility] 00 then l [facility] Procedures Procedure Date / Time Performed Performing Clinician [facility] THYROID UPTAKE AND 2019-11-08 12:32:00 [facility]all [facility] Encounters Start End Encounter Admission Attending Care Care Encounter Source Date/Time Date/Time Type Type Clinicians Facility Department ID 2019-11-22 2019-11-22 Outpatient Asher Saucedo [id number] [facility] 16:03:00 16:03:00 [facility] l Medicine Outpati ent Clinics 2019-11-19 2019-11-19 Outpatient Asher Saucedo [id number] [facility] 14:35:00 14:35:00 [facility] l Medicine Outpati ent Clinics 2019-11-16 2019-11-16 Outpatient Asher Saucedo [id number] 09:15:00 09:15:00 [facility] Medicine Outpati [facility] Clinics 2019-11-08 2019-11-08 [facility] [id number] [facility] 09[facility]12:00 09:12:00 [facility] Medicine Outpati ent Clinics 2019-10-30 2019-10-30 [facility] [id number] [facility] 17:05:00 17:05:00 [facility] Medicine Outpati ent Clinics 2019-10-29 2019-10-29 [facility] [id number] 15:04:00 15:04:00 [facility] Medicine Outpati ent Clinics 2019-10-29 2019-10-29 [facility] [id number] 08:06:00 08:06:00 [facility] Medicine Outpati ent Clinics 2019-10-23 2019-10-23 [email or web address] [phone] [id number] 15:00:23 15:30:23 Visit Angelina Vu [id number] [place] [id number] [address] 2019-10-22 2019-10-22 [facility] [id number] 12:23:00 12:23:00 [facility] Medicine Outpati ent Clinics 2019-10-18 2019-10-18 [facility] [id number] 14:30:00 14:30:00 [facility] Medicine Outpati ent Clinics 2019-09-20 2019-09-20 [facility] [id number] 09:00:00 09:00:00 t [facility] Medicine Outpati ent Clinics Results Test Description Test Time Test Comments Results Result Sourc e Comments THYROID IMAGING 2019-11-09 FINAL REPORT PATIENT W/ UPTAKE, 09:03:00 ID: [id number] MULTIPLE PROCEDURE: THYROID SCAN AND UPTAKES CPT CODE: 77650 INDICATION: Hyperthyroidism PROTOCOL: 0.238 mCi of I-123 sodium iodide was administered orally. Thyroid radioiodide uptake was measured approximately 4 and 24 hours later. Anterior and anterior-oblique thyroid images were obtained approximately 24 hours after tracer injection. FINDINGS: Thyroid iodide uptake was approximately 18% at four hours and 28% at 24 hours. (Reference Ranges: 4 hours: 5-15%; 24 hours: 10-25%.) Tracer distribution is physiological in the thyroid gland. It has a plump appearance with the left lobe being greater in size in the right. Otherwise the gland has a normal size, shape, and location. IMPRESSION: 1. Normal thyroid scan.2. Borderline elevated overall iodide uptakes. Signed: Indigo Hi Verified Date/Time: 11/09/2019 09:03:02 Reading Location: [address] Reading Room thyroid uptake 2019-11-09 Interface, External [facility] and scan-24 only 09:03:00 Ris In - 11/09/2019 - Medical 9:05 AM [facility] Center REPORT PROCEDURE: THYROID SCAN AND UPTAKES CPT CODE: [id number] INDICATION: Hyperthyroidism PROTOCOL: 0.238 mCi of I-123 sodium iodide was administered orally. Thyroid radioiodide uptake was measured approximately 4 and 24 hours later. Anterior and anterior-oblique thyroid images were obtained approximately 24 hours after tracer injection. FINDINGS: Thyroid iodide uptake was approximately 18% at four hours and 28% at 24 hours. (Reference Ranges: 4 hours: 5-15%; 24 hours: 10-25%.) Tracer distribution is physiological in the thyroid gland. It has a plump appearance with the left lobe being greater in size in the right. Otherwise the gland has a normal size, shape, and location.
--- OUTSIDE RECORDS SUMMARY | 2019-11-25 23:45 | XMS REPORT ---
:1975 Author Organization [employer] Care Team Providers Name Role Phone Mccall [facility] Provider Role Unavailable Allergies No Known Allergies Problems Problem Type Condition Code Onset Dates Condition Statu s Problem Migraine without aura and without G43.009 Active status migrainosus, not intractable Problem Insomnia, unspecified type G47.00 A ctive Problem Subclinical hyperthyroidism E05.90 Active Problem Allergic rhinitis, unspecified J30.9 Active seasonality, unspecified trigger Problem Essential hypertension I10 Activ e Medications No Known Medications Results No Known Results Summary Purpose [employer] Submission
--- OUTSIDE RECORDS SUMMARY | 2019-11-25 23:45 | XMS REPORT ---
:1975 Author Organization [employer] Care Team Providers Name Role Phone [facility] Provider Role Unavailable Allergies No Known Allergies Problems Problem Type Condition Code Onset Dates Condition Statu s Problem Migraine without aura and without G43.009 Active status migrainosus, not intractable Problem Insomnia, unspecified type G47.00 A ctive Problem Subclinical hyperthyroidism E05.90 Active Assessment Abnormal mammogram of both breasts R92.8 Active Problem Allergic rhinitis, unspecified J30.9 Active seasonality, unspecified trigger Problem Essential hypertension I10 Activ e Medications No Known Medications Results No Known Results Summary Purpose eClinicalWorks Submission
--- OUTSIDE RECORDS SUMMARY | 2019-11-25 23:45 | XMS REPORT | Clinical Summary ---
:1975 Author Organization [facility] Address [address] [place] [address] Care Team Providers Name Role Phone Christiano Mccall DO Primary Care Provider Allergies Not on File Medications Not on file Active Problems Not on file Encounters Date Type Specialty Care Team Description 11/08/2019 Hospital Encounter Sunil Mccall 11/08/2019 Hospital Encounter Sunil Mccall Subclini orin hyperthyroidism DO Christiano 10/30/2019 Outside Orders Sunil Mccall Subclinical hyperthyroidism MD Bridgette (Primary Dx) after 11/24/2018 Social History Tobacco Use Types Packs/Day Years Used Date Never Assessed Sex Assigned at Date Recorded Not on file Job Start Date Occupation Industry Not on file Not on file Not on file Travel History Travel Start Travel End No recent travel history available. Last Filed Vital Signs Not on file Plan of Treatment Not on file Procedures Procedure Name Priority Date/Time Associated Diagnosis Comme nts NM THYROID UPTAKE Routine 11/08/2019 12:32 Subclinical Result s for this AND SCAN SINGLE PM CDT hyperthyroidism procedure are in the results section. after 11/24/2018 Results NM thyroid uptake and scan-24 only (11/08/2019 12:32 PM CDT) Specimen Narrative Performed At FINAL REPORT [facility] PROCEDURE: THYROID SCAN AND UPTA KES CPT CODE: [id number] INDICATION: Hyperthyroidism PROTOCOL: 0.238 mCi of I-123 sodium iodide was administered orally. Thyroidradioiodide uptake wa s measured approximately 4 and 24 hours later.Anterior and anterior -oblique thyroid images were obtained approximately 24 hours after tr acer injection. FINDINGS: Thyroid iodide uptake was ap proximately 18% at four hours and 28% at 24 hours. (Reference Ranges:4 hours: 5-15%; 24 hours: 10-25%.) Tracer distribution is physiological in the thyroid gland. It has a plump appearance with the left lobe bein g greater in size in the right. Otherwise the gland has a normal size, shape, and location. IMPRESSION: 1. Normal thyroid scan. 2. Borderline elevated overall iodide up takes. Signed: Indigo Hi MD Report Verified Date/Time:11/09/2019 09:03:02 Reading Location: [address] Nuc Med Reading Room Procedure Note Interface, External Ris In - 11/09/2019 9:05 AM CDT FINAL REPORT PROCEDURE: THYROID SCAN AND UPTAKES CPT CODE: [id number] INDICATION: Hyperthyroidism PROTOCOL: 0.238 mCi of I-123 sodiu m iodide was administered orally. Thyroid radioiodide uptake was measured approximately 4 and 24 hours later. Anterior and anterior-o blique thyroid images were obtained approximately 24 hours after tr acer injection. FINDINGS: Thyroid iodide uptake was approximately 18% at four hours and 28% at 24 hours. (Reference Ranges: 4 hours: 5-15%; 24 hours: 10-25%.) Tracer distribution is physiological in the thyroid gland. It has a plump appearance with the left lobe bein g greater in size in the right. Otherwise the gland has a normal size, shape, and location. IMPRESSION: 1. Normal thyroid scan. 2. Borderline elevated overall iodide up takes. Signed: Indigo Hi MD Report Verified Date/Time: 11/09/2019 0 9:03:02 Reading Location: [address] [employer] Med Reading Room Performing Organization Address City/State/Zipcode Phone Number GE RIS after 11/24/2018 Insurance Payer Benefit Plan / Subscriber ID Type Phone Address Group MEDICAID - MEDICAID [facility] STAR xxxxxxxxx Medicaid Contracted MGD CARE PLAN
--- OUTSIDE RECORDS SUMMARY | 2019-11-25 23:45 | XMS REPORT ---
:1975 Author Organization eClinicalWorks Care Team Providers Name Role Phone Sunil Mccall Provider Role Unavailable Allergies, Adverse Reactions, Alerts Substance Reaction Event Type N.K.D.A. 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 Problem Hyperthyroidism E05.90 Active Problem Insomnia, unspecified type G47.00 A ctive Problem Allergic rhinitis, unspecified J30.9 Active seasonality, unspecified trigger Problem Abnormal mammogram of left breast R92.8 Active Problem Migraine without aura and without G43.009 Active status migrainosus, not intractable Assessment Hemorrhoids, unspecified hemorrhoid K64.9 Active type Assessment History of benign brain tumor Z86.011 Active Assessment Unspecified lump in the left N63.20 Active breast, unspecified quadrant Assessment Rectal pain K62.89 Active Assessment Insomnia, unspecified type G47.00 A ctive Assessment Migraine without aura and without G43.009 Active status migrainosus, not intractable Assessment Body mass index (BMI) 45.0-49.9, Z68.42 Active adult Assessment 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 Assessment Neuropathic pain M79.2 Active Assessment Morbid (severe) obesity due to E66.01 Active excess calories Assessment Allergic rhinitis, unspecified J30.9 Active seasonality, unspecified trigger Assessment Essential hypertension I10 Activ e Medications Medication Code Code Instructions Start End Status Dosage System Date Date Sumatriptan Succinate ND 69500762768 50 MG Orally A ctive 1 tablet Once a day as needed Hydrochlorothiazide ND 78911489055 25 MG Orally Act vivi 1 tablet Once a day in the morning Montelukast Sodium [facility] 86722906898 10 MG Orally Acti ve 1 tablet Once a day Ambien [facility] 54621872519 5 MG Orally Active 1 tablet Once a day at bedtime as needed Lyrica [facility] 25030331317 75 MG Orally Active 1 capsu le twice a day Results No Known Results Summary Purpose eClinicalWorks Submission
--- OUTSIDE RECORDS SUMMARY | 2019-11-25 23:45 | XMS REPORT ---
:1975 Author Organization eClinicalWorks Care Team Providers Name Role Phone Mccall [facility] Provider Role Unavailable Allergies No Known Allergies Problems Problem Type Condition Code Onset Dates Condition Statu s Problem Migraine without aura and without G43.009 Active status migrainosus, not intractable Problem Insomnia, unspecified type G47.00 A ctive Problem Subclinical hyperthyroidism E05.90 Active Assessment Subclinical hyperthyroidism E05.90 Active Problem Allergic rhinitis, unspecified J30.9 Active seasonality, unspecified trigger Problem Essential hypertension I10 Activ e Medications No Known Medications Results No Known Results Summary Purpose eClinicalWorks Submission
--- OUTSIDE RECORDS SUMMARY | 2019-11-25 23:45 | XMS REPORT ---
:1975 Author Organization eClinicalWorks Care Team Providers Name Role Phone Cal [facility] Provider Role Unavailable Allergies No Known Allergies Problems Problem Type Condition Code Onset Dates Condition Statu s Assessment Low TSH level R79.89 Active Problem Migraine without aura and without [...]
--- OUTSIDE RECORDS SUMMARY | 2019-11-25 23:45 | XMS REPORT ---
[...] Status Dosage System Date Date Sumatriptan Succinate [facility] 97759820929 50 MG Orally A ctive 1 tablet Once a day as needed Montelukast Sodium [facility] 23746248340 10 MG Orally Acti ve 1 tablet Once a day Lyrica [facility] 06087706910 75 MG Orally Active 1 capsu le twice a day Hydrochlorothiazide [facility] 77539915537 25 MG Orally Act vivi 1 tablet Once a day in the morning Gabapentin [facility] [address]-91 100 MG Orally Active 1 capsule three times a day Ambien [facility] 16237224964 5 MG Orally Active 1 tablet Once a day at bedtime as needed Results No Known Results Summary Purpose eClinicalWorks Submission
--- OUTSIDE RECORDS SUMMARY | 2019-11-25 23:46 | XMS REPORT ---
:1975 Author Organization eClinicalWorks Care Team Providers Name Role Phone [facility] Provider Role Unavailable Allergies No Known Allergies Problems Problem Type Condition Code Onset Dates Condition Statu s Problem Insomnia, unspecified type G47.00 A ctive Problem Allergic rhinitis, unspecified J30.9 Active seasonality, unspecified trigger Problem Morbid (severe) obesity due to E66.01 Active excess calories Problem Body mass index (BMI) 45.0-49.9, Z68.42 Active adult Problem Abnormal laboratory test R89.9 Act vivi Problem Essential hypertension I10 Activ e Problem Migraine without aura and without G43.009 Active status migrainosus, not intractable Problem Abnormal mammogram of left breast R92.8 Active Problem Hyperthyroidism E05.90 Active Medications No Known Medications Results No Known Results Summary Purpose eClinicalWorks Submission
--- OUTSIDE RECORDS SUMMARY | 2019-11-25 23:46 | XMS REPORT ---
:1975 Author Organization eClinicalWorks Care Team Providers Name Role Phone Sunil Mccall Provider Role Unavailable Allergies No Known Allergies Problems Problem Type Condition Code Onset Dates Condition Statu s Problem Insomnia, unspecified type G47.00 A ctive Problem Allergic rhinitis, unspecified J30.9 Active seasonality, unspecified trigger Assessment Vomiting R11.10 Active Assessment Abnormal laboratory test R89.9 Act vivi Assessment Hyperthyroidism E05.90 Active Problem Morbid (severe) obesity due to E66.01 Active excess calories Problem Body mass index (BMI) 45.0-49.9, Z68.42 Active adult Problem Abnormal laboratory test R89.9 Act vivi Problem Essential hypertension I10 Activ e Problem Migraine without aura and without G43.009 Active status migrainosus, not intractable Problem Abnormal mammogram of left breast R92.8 Active Problem Hyperthyroidism E05.90 Active Medications Medication Code Code Instructions Start End Date Status Dosage System Date Ondansetron [facility] 05263631238 4 MG Orally Nov 19, Active 1 ta blet on three times a 2019 the day and allow to dissolve 30 minutes prior to meals Methimazole ND 88585100603 5 MG Orally Nov 19, Active 1 ta blet twice a day 2019 once a day x 2 days then Results No Known Results Summary Purpose eClinicalWorks Submission
[2019-11-26] MEDS ORDERED: ONDANSETRON 4 MG/2 ML VIAL ONE (00:19)
[2019-11-26] MEDS ORDERED: NA CHLORIDE 0.9% 1,000 ML ONE (00:19)
[2019-11-26 00:30] LABS: Absolute Lymphocytes (CBC) 2.2 K/uL (0.7-4.9); Basophils % 0.6 % (0-1.3); Hematocrit 40.2 % (36.0-45.0); MPV 7.7 fL (7.6-11.3); RBC Red Blood Cell Count 4.86 M/uL (3.86-4.86)
[2019-11-26 00:34] LABS: Protime INR 0.99
[2019-11-26] MEDS ORDERED: LORazepam 2 MG/ML VIAL ONE (00:44)
[2019-11-26 01:20] LABS: ALT/SGPT 18 U/L (12-78); AST/SGOT 8 U/L (15-37); Albumin 3.1 g/dL (3.4-5.0); Alkaline Phosphatase 133 U/L (45-117); BUN Blood Urea Nitrogen 11 mg/dL (7-18); Bicarbonate 27 mmol/L (21-32); Bilirubin Direct < 0.1 mg/dL (0-0.2); Bilirubin Total 0.3 mg/dL (0.2-1.0); Glucose Level 112 mg/dL (74-106); Magnesium 1.9 mg/dL (1.8-2.4); NT PRO-BNP 52 pg/mL (<125); Potassium 3.4 mmol/L (3.5-5.1); Protein, Total 6.7 g/dL (6.4-8.2); Sodium Level 143 mmol/L (136-145); Troponin (Emerg Dept Use Only) < 0.02 ng/mL (0.0-0.045)
[2019-11-26 01:23] LABS: Thyroid Stimulating Hormone < 0.005 uIU/mL (0.360-3.740)
--- NOTE | 2019-11-26 01:56 | EDPHYS ---
Physician Documentation [facility] Name: Skye Figueroa Age: 44 yrs Sex: Female : 1975 Arrival Date: 11/25/2019 Time: 23:46 Bed 20 Private MD: ED Physician Alec Nair HPI: 11/25 00:16 This 44 yrs old Female presents to ER via EMS with complaints of Chest Pain. [facility] 00:16 The patient or guardian reports chest pain that is located primarily in the substernal [facility] area. Onset: today. The pain does not radiate. Associated signs and symptoms: Pertinent positives: palpitations, shortness of breath. Patient presents to the ED with complaints of elevated heart rate throughout the day with sharp chest pain and palpitations. Patient currently takes methimazole 10 mg daily. . 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 - Social history:: Smoking status: Patient denies any tobacco usage or history of. ROS: 00:16 Constitutional: Negative for fever, chills, and weight loss. m 00:16 Cardiovascular: Positive for chest pain, palpitations, Negative for 00:16 Respiratory: Positive for shortness of breath. 00:16 All other systems are negative. Exam: 00:16 Constitutional: This is a well developed, well nourished patient who is awake, alert, jmm and in no acute distress. Head/Face: atraumatic. Eyes: EOMI, no conjunctival erythema appreciated ENT: Moist Mucus Membranes Neck: Trachea midline, Supple Chest/axilla: Normal chest wall appearance and motion. 00:16 Respiratory: Normal respirations, no respiratory distress appreciated Abdomen/GI: Non distended, soft Back: Normal ROM Skin: General appearance color normal MS/ Extremity: Moves all extremities, no obvious deformities appreciated, no edema noted to the lower extremities Neuro: Awake and alert, normal gait Psych: Behavior is normal, Mood is normal, Patient is cooperative and pleasant 00:16 Cardiovascular: Rate: normal, Rhythm: regular, Pulses: no pulse deficits are appreciated. 00:22 ECG was reviewed by the Attending Physician. [facility] Vital Signs: 11/24 23:47 BP 142 / 70; Pulse 100; Resp 17; Temp 98.9(O); Pulse Ox 98% on R/A; Pain 10/10; mt2 11/25 00:05 BP 135 / 61; Pulse 99; Resp 19; Temp 98.1(O); Pulse Ox 97% on R/A; Weight 117.93 kg; mt2 Pain 10/10; 01:03 BP 131 / 45; Pulse 89; Resp 15; Pulse Ox 96% on R/A; Pain 4/10; mt2 02:28 BP 128 / 91; Pulse 78; Resp 16; Pulse Ox 97% on R/A; Pain 0/10; mt2 MDM: 11/24 23:50 Patient medically screened. [facility] 11/25 00:49 Transition of care: After a detail discussion of the patient's case, care is [facility] transferred to Alec Nair MD. 01:55 Differential diagnosis: acute pericarditis, anxiety, costochondritis, pleurisy, rn pneumonia, pneumothorax, pulmonary embolus. Data reviewed: vital signs, nurses notes, lab test result(s), EKG, radiologic studies, plain films, and as a result, I will discharge patient. Counseling: I had a detailed discussion with the patient and/or guardian regarding: the historical points, exam findings, and any diagnostic results supporting the discharge/admit diagnosis, lab results, radiology results, the need for outpatient follow up, to return to the emergency department if symptoms worsen or persist or if there are any questions or concerns that arise at home. Response to treatment: the patient's symptoms have markedly improved after treatment, and as a result, I will discharge patient. Special discussion: I discussed with the patient/guardian in detail that at this point there is no indication for admission to the hospital. It is understood, however, that if the symptoms persist or worsen the patient needs to return immediately for re-evaluation. ED course: Pt with known hyperthyroidism, labs confirm that, already on methimazole, trop neg, ecg no ischemia, cxr clear, will dc home with pcp f/u and endocrine f/u. . 11/24 23:51 Order name: Basic Metabolic Panel [facility] 11/24 23:51 Order name: CBC with Diff; Complete Time: 00:35 [facility] 11/24 23:51 Order name: LFT's [facility] 11/24 23:51 Order name: Magnesium; Complete Time: 01:53 [facility] 11/24 23:51 Order name: NT PRO-BNP; Complete Time: 01:53 [facility] 11/24 23:51 Order name: Troponin (emerg Dept Use Only); Complete Time: 01:53 [facility] 11/24 23:51 Order name: XRAY Chest (1 view); Complete Time: 15:03 [facility] 11/24 23:52 Order name: Basic Metabolic Panel; Complete Time: 01:53 [facility] 11/24 23:52 Order name: Liver (Hepatic) Function; Complete Time: 01:53 [facility] 11/24 23:52 Order name: D-Dimer; Complete Time: 00:41 [facility] 11/24 23:52 Order name: TSH; Complete Time: 01:53 [facility] 11/25 00:20 Order name: Protime (+INR); Complete Time: 00:41 [facility] 11/24 23:51 Order name: EKG; Complete Time: 23:52 [facility] 11/24 23:51 Order name: Cardiac monitoring; Complete Time: 00:17 [facility] 11/24 23:51 Order name: EKG - Nurse/Tech; Complete Time: 23:56 [facility] 11/24 23:51 Order name: IV Saline Lock; Complete Time: 00:02 [facility] 11/24 23:51 Order name: Labs collected and sent; Complete Time: 00:02 [facility] 11/24 23:51 Order name: O2 Per Protocol; Complete Time: 00:17 [facility] 11/24 23:51 Order name: O2 Sat Monitoring; Complete Time: 00:17 [facility] EC:22 Rate is 102 beats/min. Rhythm is regular. QRS [place] is Normal. ID interval is normal. jmm QRS interval is normal. QT interval is normal. No Q waves. T waves are Normal. No ST changes noted. Reviewed by me. Administered Medications: 00:15 Drug: NS 0.9% 1000 ml Route: IV; Rate: 1 bolus; Site: right antecubital; mt2 01:00 Follow up: Response: No adverse reaction; IV Status: Completed infusion mt2 00:17 Drug: Zofran (Ondansetron) 4 mg Route: IVP; Site: right antecubital; mt2 00:47 Follow up: Response: No adverse reaction; Nausea is decreased mt2 00:47 Drug: Ativan 0.5 mg Route: IVP; Site: right antecubital; mt2 01:22 Follow up: Response: No adverse reaction; Anxiety decreased mt2 Disposition: 03:37 Co-signature as Attending Physician, Alec Nair MD. rn Disposition: 11/26/19 01:56 Discharged to Home. Impression: Palpitations, Chest pain, unspecified. - Condition is Stable. - Discharge Instructions: Nonspecific Chest Pain, Palpitations. - Medication Reconciliation Form, Thank You Letter, Antibiotic Education, Prescription Opioid Use form. - Follow up: Emmanuel Durant; When: 2 - 3 days; Reason: Recheck today's complaints, Continuance of care, Re-evaluation by your physician. Signatures: Dispatcher [employer] [facility] Oz Cote PA PA Alec Burton MD MD rn Toscano, Marlene, RN RN mt2 Corrections: (The following items were deleted from the chart) 00:19 11/24 23:52 PROTIME (+INR)+COAG.LAB.BRZ ordered. [facility] 11/25 02:30 01:56 11/26/2019 01:56 Discharged to Home. Impression: Palpitations; Chest pain, mt2 unspecified. Condition is Stable. Discharge Instructions: Nonspecific Chest Pain, Palpitations. Forms are Medication Reconciliation Form, Thank You Letter, Antibiotic Education, Prescription Opioid Use. Follow up: Emmanuel Durant; When: 2 - 3 days; Reason: Recheck today's complaints, Continuance of care, Re-evaluation by your physician. rn
--- NOTE | 2019-11-26 01:56 | ER ---
Nurse's Notes [facility] Name: Skye Figueroa Age: 44 yrs Sex: Female : 1975 Arrival Date: 11/25/2019 Time: 23:46 Bed 20 Private MD: Diagnosis: Palpitations;Chest pain, unspecified Presentation: 11/24 23:47 Coronavirus screen: At this time, the client does not indicate any symptoms associated mt2 with coronavirus-19. Ebola Screen: No symptoms or risks identified at this time. Initial Sepsis Screen: Does the patient meet any 2 criteria? No. Patient's initial sepsis screen is negative. Does the patient have a suspected source of infection? No. Patient's initial sepsis screen is negative. Risk Assessment: Do you want to hurt yourself or someone else? Patient reports no desire to harm self or others. Onset of symptoms was November 25, 2019. 23:47 Method Of Arrival: EMS: [facility] me2 23:47 Acuity: NIDA 2 mt2 23:47 Chief complaint: EMS states: BIBA FROM HOME WITH CP AND EPIGASTRIC PAIN. N/V X 2 DAYS. mt2 C/O PALPITATIONS AND SOB WAS DIAGNOSED WITH GRAVES DS. 11/25 00:02 Chief complaint:. Chief complaint:. Chief complaint:. Chief complaint:. 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 - Social history:: Smoking status: Patient denies any tobacco usage or history of. Screenin:06 Abuse screen: Denies threats or abuse. Nutritional screening: No deficits noted. mt2 Tuberculosis screening: No symptoms or risk factors identified. Fall Risk None identified. Assessment: 00:10 Musculoskeletal: No deficits noted. mt2 00:45 General: Appears distressed, uncomfortable, Behavior is anxious. Pain: Complains of mt2 pain in chest Pain began gradually. Neuro: No deficits noted. Cardiovascular: Reports chest pain, shortness of breath. Respiratory: Reports shortness of breath on exertion Airway is patent Respiratory effort is labored, Respiratory pattern is regular. GI: Reports upper abdominal pain, epigastric pain, nausea. : No deficits noted. EENT: No deficits noted. Derm: No deficits noted. 01:02 Reassessment: Patient and/or family updated on plan of care and expected duration. Pain mt2 level reassessed. Patient is alert, oriented x 3, equal unlabored respirations, skin warm/dry/pink. Patient states symptoms have improved. General: Appears comfortable, Behavior is calm. 02:28 Reassessment: Patient and/or family updated on plan of care and expected duration. Pain mt2 level reassessed. Patient is alert, oriented x 3, equal unlabored respirations, skin warm/dry/pink. Patient denies pain at this time. Reassessment: Patient states symptoms have improved. General: Appears comfortable, Behavior is calm, cooperative. Pain: Denies pain. Vital Signs: 11/24 23:47 BP 142 / 70; Pulse 100; Resp 17; Temp 98.9(O); Pulse Ox 98% on R/A; Pain 10/10; mt2 11/25 00:05 BP 135 / 61; Pulse 99; Resp 19; Temp 98.1(O); Pulse Ox 97% on R/A; Weight 117.93 kg; mt2 Pain 10/10; 01:03 BP 131 / 45; Pulse 89; Resp 15; Pulse Ox 96% on R/A; Pain 4/10; mt2 02:28 BP 128 / 91; Pulse 78; Resp 16; Pulse Ox 97% on R/A; Pain 0/10; mt2 ED Course: 11/24 23:46 Patient arrived in ED. mt2 23:47 Susan Macario, CALEB is Primary Nurse. mt2 23:48 Oz Cote PA is PHCP. [facility] 23:48 Alec Nair MD is Attending Physician. manny 23:49 Triage completed. mt2 11/25 00:00 Arm band placed on. EKG completed in triage. Results shown to MD. mt2 00:06 Initial lab(s) drawn, by me, sent to lab. Inserted saline lock: 20 gauge in right mt2 antecubital area, using aseptic technique. Blood collected. Patient maintains SpO2 saturation greater than 95% on room air. 00:06 Patient has correct armband on for positive identification. Bed in low position. Call mt2 light in reach. Side rails up X 1. 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 Pulse ox on. NIBP on. 01:01 XRAY Chest (1 view) In Process Unspecified. EDMS 01:56 Emmanuel uDrant MD is Referral Physician. rn 02:28 No provider procedures requiring assistance completed. IV discontinued, intact, mt2 bleeding controlled, No redness/swelling at site. Pressure dressing applied. Administered Medications: 00:15 Drug: NS 0.9% 1000 ml Route: IV; Rate: 1 bolus; Site: right antecubital; mt2 01:00 Follow up: Response: No adverse reaction; IV Status: Completed infusion mt2 00:17 Drug: Zofran (Ondansetron) 4 mg Route: IVP; Site: right antecubital; mt2 00:47 Follow up: Response: No adverse reaction; Nausea is decreased mt2 00:47 Drug: Ativan 0.5 mg Route: IVP; Site: right antecubital; mt2 01:22 Follow up: Response: No adverse reaction; Anxiety decreased mt2 Outcome: 01:56 Discharge ordered by . rn 02:29 Discharged to home via wheelchair. mt2 02:29 Condition: good 02:29 Discharge instructions given to patient, Instructed on discharge instructions, follow up and referral plans. Demonstrated understanding of instructions, follow-up care. 02:30 Patient left the ED. mt2 Signatures: Dispatcher [employer] EDNM Oz Cote PA PA jmm Nieto, Roman, MD MD rn Toscano, Marlene, RN RN mt2 Corrections: (The following items were deleted from the chart) 00:05 11/24 23:47 Chief complaint: EMS states: BIBA FROM HOME WITH CP AND EPIGASTRIC PAIN. mt2 DENIES N/V C/O PALPITATIONS AND SOB mt2 11/25 00:05 0823 23:47 Coronavirus screen: At this time, the client does not indicate any symptoms mt2 associated with coronavirus-19. mt2 11/25 00:05 08 23:47 Initial Sepsis Screen: Does the patient meet any 2 criteria? No. Patient's mt2 initial sepsis screen is negative. Does the patient have a suspected source of infection? No. Patient's initial sepsis screen is negative. mt2
--- NOTE | 2019-11-26 08:46 | RAD REPORT ---
EXAM DESCRIPTION: RAD - Chest Single View - 11/26/2019 1:01 am CLINICAL HISTORY: CHEST PAIN Chest pain. COMPARISON: Chest Single View dated 05/06/2019; Chest Pa And Lat (2 Views) dated 04/19/2019; Chest Sing le View dated 04/01/2017; Chest Pa And Lat (2 Views) dated 03/26/2017 FINDINGS: Portable technique limits examination quality. The lungs are grossly clear. The heart is normal in size. No displaced fractures.Right-sided ventricu lostomy tubing traverses the right chest. IMPRESSION: No acute intrathoracic process suspected.
== END 2019-11-26 02:30 | disposition home or self-care (01) ==
LOC: ER 23:42
DX: R00.2 Palpitations (principal); Z88.5 Allergy status to narcotic agent
CPT/HCPCS: 93005; 85025; 80048; 36415; 83735; 85610; 85379; 80076; 84443; 84484; 83880; 71045; J7030; J2405; 96361; 96374; 96375; 99285

== ENCOUNTER 2019-12-09 18:11 | Emergency (ER) | payer OTHER ==
--- OUTSIDE RECORDS SUMMARY | 2019-12-09 18:13 | XMS REPORT | Clinical Summary ---
:1975 Author Organization [facility] Address [address] [place] [address] Care Team Providers Name Role Phone Christiano Mccall DO Primary Care Provider Allergies Not on File Medications Not on file Active Problems Not on file Encounters Date Type Specialty Care Team Description 11/08/2019 Hospital Encounter Sunil Mccall 11/08/2019 Hospital Encounter Sunil Mccall Subclini orin hyperthyroidism DO Christiano 10/30/2019 Outside Orders Sunil Mccall Subclinical hyperthyroidism MD Bridgette (Primary Dx) after 12/08/2018 Social History Tobacco Use Types Packs/Day Years [...] procedure are in the results section. after 12/08/2018 Results NM thyroid uptake and scan-24 only (11/08/2019 12:32 PM CDT) Specimen Narrative Performed At FINAL REPORT [facility] PROCEDURE: THYROID SCAN AND UPTA KES CPT CODE: 10419 INDICATION: Hyperthyroidism PROTOCOL: 0.238 mCi of I-123 [...] MD Report Verified Date/Time:11/09/2019 09:03:02 Reading Location: [address] Nuc Med Reading Room Procedure Note Interface, External Ris In - 11/09/2019 9:05 AM CDT FINAL REPORT PROCEDURE: THYROID SCAN AND UPTAKES CPT CODE: 30336 INDICATION: Hyperthyroidism PROTOCOL: 0.238 mCi of I-123 [...] Verified Date/Time: 11/09/2019 0 9:03:02 Reading Location: [address] Hello Chair Med Reading Room Performing Organization Address City/State/Zipcode Phone Number GE RIS after 12/08/2018 Insurance Payer Benefit Plan / Subscriber ID Type Phone Address Group MEDICAID - MEDICAID [facility] xxxxxxxxx Medicaid Contracted [employer] CARE PLAN
--- OUTSIDE RECORDS SUMMARY | 2019-12-09 18:14 | XMS REPORT | Continuity of Care Document ---
:1975 Author Organization [facility] t Address [address] [place] [address] Care Team Providers Name Role Phone Christiano Mccall DO Primary Care Physician Scarlett Mccall Attending Clinician Unavailable Christiano Mccall DO Attending Clinician Bridgette Mccall MD Attending Clinician Unavailable Joni HAHN Attending Clinician Payers Payer Name Policy Policy Number Effective Expiration Source Type Date Date MEDICAID - MEDICAID MGD xxxxxxxxx C HI [facility] CARED [facility] STAR [facility] - PLANxxxxxxxxxMedicaid Med ical [...] St idism idism [facility] Clinics Abnormal Abnormal Problem [facility] - of left of left Memoria breast breast l [facility] Clinics Morbid Morbid Problem Active [facility] (severe) (severe[facility] - obesity obesity [facility] due to due to l excess excess [facility] calories calories ent Clinics Body mass Body mass Problem Active [facility] index index [facility] - (BMI) (BMI) Memoria 45.0-49.9, 45.0-49.9, l adult adult [facility] Clinics Abnormal Abnormal Problem Active [facility] Mary kes - test test Memoria l [facility] Clinics Allergies, Adverse Reactions, Alerts This patient has no known allergies or adverse reactions. Social History Social Habit Start Date Stop Date Quantity Comments Source Sex Assigned [facility] Medications Ordered Filled Start Stop Current Ordering Indication Dosage Frequency Signature Comments Components Source Medication Medication Date Date Medication? Clinician (SIG) Name Name Atenolol Atenolol Yes Sunil 1 tablet [facility] 11-25 Cal Rojas - 00:00: Memoria 00 l [facility] ent Clinics Procedures Procedure Date / Time Performed Performing Clinician Becki e NM THYROID UPTAKE AND 2019-11-08 12:32:00 Sunil [facility]ccall [facility] Encounters Start End Encounter Admission Attending Care Care Encounter Source Date/Time Date/Time Type Type Clinicians Facility Department ID 2019-11-26 2019-11-26 Outpatient [facility] [id number] [facility] 15:17:00 15:17:00 [facility] [place] [facility] Medicine Outpati ent Clinics 2019-11-24 2019-11-24 [place] [place] [id number] [facility] 15:24:00 15:24:00 [facility] [place] [facility] Medicine Medicine Outpati ent Clinics 2019-11-22 2019-11-22 [place] [place] [id number] [facility] 16:03:00 16:03:00 [place] [facility] Medicine Outpati ent Clinics 2019-11-19 2019-11-19 [place] [place] [place] [id number] [facility] 14:35:00 14:35:00 [place] [facility] Medicine Outpati ent Clinics 2019-11-16 2019-11-16 [facility] [id number] 09:15:00 09:15:00 [place] [facility] Medicine Outpati ent Clinics 2019-11-08 2019-11-08 [facility] [id number] 09:12:00 09:12:00 [place] [facility] Medicine Outpati ent Clinics 2019-10-30 2019-10-30 [place] [id number] 17:05:00 17:05:00 [place] [facility] Medicine Outpati ent Clinics 2019-10-29 2019-10-29 [facility] [id number] 15:04:00 15:04:00 [place] [facility] Medicine Outpati ent Clinics 2019-10-29 2019-10-29 [facility] [id number] 08:06:00 08:06:00 [place] [facility] Medicine Outpati ent Clinics 2019-10-23 2019-10-23 Office [facility] [id number] 15:00:23 15:30:23 Visit Angelina Vu [id number] [place] [id number] [facility] [id number] [address] 2019-10-22 2019-10-22 [facility] [id number] 12:23:00 12:23:00 [place] [facility] Medicine Outpati ent Clinics 2019-10-18 2019-10-18 [facility] [id number] 14:30:00 14:30:00 [place] [facility] Medicine Outpati ent Clinics 2019-09-20 2019-09-20 [facility] [id number] 09:00:00 09:00:00 [place] [facility] Medicine Outpati ent Clinics Results Test Description Test Time Test Comments Results Result [facility] e Comments THYROID IMAGING 2019-11-09 FINAL REPORT PATIENT W/ UPTAKE, 09:03:00 ID: [id number] MULTIPLE PROCEDURE: THYROID SCAN AND UPTAKES CPT CODE: [id number] INDICATION: Hyperthyroidism PROTOCOL: 0.238 mCi of I-123 [...] Hi Verified Date/Time: 11/09/2019 09:03:02 Reading Location: [address] Reading Room thyroid uptake 2019-11-09 Interface, External [facility] and scan-24 only 09:03:00 Ris In - 11/09/2019 - [facility] 9[facility]05 [facility] PROCEDURE: THYROID SCAN AND UPTAKES CPT CODE: [id number] INDICATION: Hyperthyroidism PROTOCOL: 0.238 mCi of I-123 [...] Hi Verified Date/Time: 11/09/2019 09:03:02 Reading Location: [place] [id number] [facility] Reading Room
--- OUTSIDE RECORDS SUMMARY | 2019-12-09 18:14 | XMS REPORT ---
:1975 Author Organization [employer] Care Team Providers Name Role Phone Cal Replaced By [facility] Provider Role Unavailable Allergies No Known Allergies [...]
--- OUTSIDE RECORDS SUMMARY | 2019-12-09 18:14 | XMS REPORT ---
:1975 Author Organization [employer] Care Team Providers Name Role Phone Cal [facility] Provider Role Unavailable Allergies No [...]
--- OUTSIDE RECORDS SUMMARY | 2019-12-09 18:14 | XMS REPORT ---
:1975 Author Organization [employer] Care Team Providers Name Role Phone Sunil Mccall Provider Role Unavailable Allergies, Adverse Reactions, Alerts Substance Reaction Event Type N.K.D.A. Info Not Available Non Drug Allergy Problems Problem Type Condition Code Onset Dates Condition Statu s Assessment Migraine without aura and without G43.009 Active status migrainosus, not intractable Assessment Neuropathic pain M79.2 Active Assessment Screening mammogram, encounter for Z12.31 Active Problem Migraine without aura and without G43.009 Active status migrainosus, not intractable Problem Insomnia, unspecified type G47.00 A ctive Problem Essential hypertension I10 Activ e Assessment Encounter for wellness examination Z00.00 Active in adult Assessment Essential hypertension I10 Activ e Problem Allergic rhinitis, unspecified J30.9 Active seasonality, unspecified trigger Assessment History of benign brain tumor Z86.011 Active Assessment 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 Assessment Rectal pain K62.89 Active Assessment Allergic rhinitis, unspecified J30.9 Active seasonality, unspecified trigger Assessment Hemorrhoids, unspecified hemorrhoid K64.9 Active type Assessment Insomnia, unspecified type G47.00 A ctive Medications Medication Code Code Instructions Start End Status Dosage System Date Date Hydrochlorothiazide ND 51665781100 25 MG Orally Act vivi 1 tablet Once a day in the morning Sumatriptan Succinate ND 02613297112 50 MG Orally A ctive 1 tablet Once a day as needed Ambien ND 86857168398 5 MG Orally Active 1 tablet Once a day at bedtime as needed Montelukast Sodium ND 95953493239 10 MG Orally Acti ve 1 tablet Once a day Lyrica ND 22710815145 75 MG Orally Active 1 capsu le twice a day Results No Known Results Summary Purpose eClinicalWorks Submission
--- OUTSIDE RECORDS SUMMARY | 2019-12-09 18:14 | XMS REPORT ---
:1975 Author Organization [employer] Care Team Providers Name Role Phone Mccall [facility] Provider Role Unavailable Allergies No [...]
--- OUTSIDE RECORDS SUMMARY | 2019-12-09 18:14 | XMS REPORT ---
[...] Status Dosage System Date Date Sumatriptan Succinate [facility] 22658726652 50 MG Orally A ctive 1 tablet Once a day as needed Montelukast Sodium [facility] 17228449864 10 MG Orally Acti ve 1 tablet Once a day Lyrica [facility] 02673421484 75 MG Orally Active 1 capsu le twice a day Hydrochlorothiazide [facility] 16195568424 25 MG Orally Act vivi 1 tablet Once a day in the morning Gabapentin [facility] [address]-74 100 MG Orally Active 1 capsule three times a day Ambien [facility] 16545926070 5 MG Orally Active 1 tablet Once a day at bedtime as needed Results No Known Results Summary Purpose e[employer]Works Submission
--- OUTSIDE RECORDS SUMMARY | 2019-12-09 18:14 | XMS REPORT ---
[...] End Date Status Dosage System Date Ondansetron [facility] 04224131735 4 MG Orally Nov 19, Active 1 ta blet on three times a 2019 the day and allow to dissolve 30 minutes prior to meals Methimazole ND 33284435501 5 MG Orally Nov 19, Active 1 ta blet twice a day 2019 once a day x 2 days then Results No Known Results Summary Purpose e[employer]Works Submission
--- OUTSIDE RECORDS SUMMARY | 2019-12-09 18:14 | XMS REPORT ---
:1975 Author Organization [employer] Care Team Providers Name Role Phone Cal Sunil Provider Role Unavailable Allergies No Known Allergies Problems Problem Type Condition Code Onset Dates Condition Statu s Problem Insomnia, unspecified type G47.00 A ctive Problem Allergic rhinitis, unspecified J30.9 Active seasonality, unspecified trigger Assessment Essential hypertension I10 Activ e Problem Morbid [...] Problem Hyperthyroidism E05.90 Active Medications Medication Code System Code Instructions Start Date End Date Status Dosage Atenolol [facility] 19387636051 25 MG Orally Once Nov 25, Active 1 tablet a day 2019 Results No Known Results Summary Purpose eClinicalWorks Submission
--- OUTSIDE RECORDS SUMMARY | 2019-12-09 18:14 | XMS REPORT ---
:1975 Author Organization [employer] Care Team Providers Name Role Phone Cal [facility] Provider Role Unavailable Allergies No Known Allergies [...]
--- OUTSIDE RECORDS SUMMARY | 2019-12-09 18:14 | XMS REPORT ---
[...] Dosage System Date Date Sumatriptan Succinate ND 66204010197 50 MG Orally A ctive 1 tablet Once a day as needed Hydrochlorothiazide ND 71045094727 25 MG Orally Act vivi 1 tablet Once a day in the morning Montelukast Sodium [facility] 33244474865 10 MG Orally Acti ve 1 tablet Once a day Ambien [facility] 22495243272 5 MG Orally Active 1 tablet Once a day at bedtime as needed Lyrica [facility] 51112451270 75 MG Orally Active 1 capsu le twice a day Results No Known Results Summary Purpose eClinicalWorks Submission
--- OUTSIDE RECORDS SUMMARY | 2019-12-09 18:14 | XMS REPORT ---
:1975 Author Organization [employer] Care Team Providers Name Role Phone Cal Sunil Provider Role Unavailable Allergies No Known Allergies Problems Problem Type Condition Code Onset Dates Condition Statu s Problem Insomnia, unspecified type G47.00 A ctive Problem Allergic rhinitis, unspecified J30.9 Active seasonality, unspecified trigger Assessment Heart palpitations R00.2 Active Problem Morbid (severe) obesity due to [...]
--- OUTSIDE RECORDS SUMMARY | 2019-12-09 18:14 | XMS REPORT ---
:1975 Author Organization [employer] Care Team Providers Name Role Phone Mccall [facility] Provider Role Unavailable Allergies No Known Allergies [...]
--- OUTSIDE RECORDS SUMMARY | 2019-12-09 18:14 | XMS REPORT ---
:1975 Author Organization e[employer]Works Care Team Providers Name Role Phone Mccall [facility] Provider Role Unavailable Allergies No Known [...]
[2019-12-09 18:51] LABS: Protime INR 1.05
[2019-12-09 18:52] LABS: Absolute Lymphocytes (CBC) 1.7 K/uL (0.7-4.9); Basophils % 0.7 % (0-1.3); Hematocrit 43.8 % (36.0-45.0); Lymphocytes % 19.2 % (15.3-44.8); MPV 7.6 fL (7.6-11.3); RBC Red Blood Cell Count 5.27 M/uL (3.86-4.86)
--- NOTE | 2019-12-09 19:12 | RAD REPORT ---
EXAM DESCRIPTION: [facility] Single View12/09/2019 6:46 pm CLINICAL HISTORY: Chest pain COMPARISON: November 2000 FINDINGS: Lung bases are hazy. Ventricular shunt courses the right hemithorax The lungs appear clear of acute infiltrate. The heart is upper limits normal size IMPRESSION: Lung bases are hazy which could be secondary to infiltrates or overlying soft tissue. PA and lateral chest series recommended
[2019-12-09 19:18] LABS: ALT/SGPT 20 U/L (12-78); AST/SGOT 8 U/L (15-37); Albumin 3.5 g/dL (3.4-5.0); Alkaline Phosphatase 145 U/L (45-117); BUN Blood Urea Nitrogen 11 mg/dL (7-18); Bicarbonate 28 mmol/L (21-32); Bilirubin Direct < 0.1 mg/dL (0-0.2); Bilirubin Total 0.3 mg/dL (0.2-1.0); Glucose Level 90 mg/dL (74-106); Magnesium 2.2 mg/dL (1.8-2.4); NT PRO-BNP 17 pg/mL (<125); Potassium 3.6 mmol/L (3.5-5.1); Protein, Total 7.3 g/dL (6.4-8.2); Sodium Level 140 mmol/L (136-145); Troponin (Emerg Dept Use Only) < 0.02 ng/mL (0.0-0.045)
[2019-12-09 19:20] LABS: Thyroid Stimulating Hormone < 0.005 uIU/mL (0.360-3.740)
[2019-12-09] MEDS ORDERED: MORPHINE 4 MG/ML SYR ONE (19:31)
[2019-12-09] MEDS ORDERED: ONDANSETRON 4 MG/2 ML VIAL ONE (19:31)
--- NOTE | 2019-12-09 19:57 | RAD REPORT ---
EXAM DESCRIPTION: Chapo Adames (2 Views)12/09/2019 7:50 pm CLINICAL HISTORY: Chest pain COMPARISON: December 08 FINDINGS: The lungs appear clear of acute infiltrate. The heart is normal size IMPRESSION: No acute abnormalities displayed
--- NOTE | 2019-12-09 22:54 | ER ---
Nurse's Notes [facility] Name: Skye Figueroa Age: 44 yrs Sex: Female : 1975 Arrival Date: 12/09/2019 Time: 18:13 Bed 14 Private MD: Sunil Mccall Diagnosis: Palpitations;Chest pain, unspecified Presentation: 12/08 18:16 Chief complaint: Patient states: "I've been feeling tired all day today and about 30 aa5 minutes ago I started feeling my heart rate on my back and I checked it and my heart rate was 120 but then it was 50". Pt also reports numbness to jarret arms and legs and chest pain. 18:16 Coronavirus screen: Client denies travel out of the [place] in the last 14 days. At this aa5 time, the client does not indicate any symptoms associated with coronavirus-19. Ebola Screen: Patient negative for fever greater than or equal to 101.5 degrees Fahrenheit, and additional compatible Ebola Virus Disease symptoms. Initial Sepsis Screen: Does the patient meet any 2 criteria? No. Patient's initial sepsis screen is negative. Does the patient have a suspected source of infection? No. Patient's initial sepsis screen is negative. Risk Assessment: Do you want to hurt yourself or someone else? Patient reports no desire to harm self or others. Onset of symptoms was December 09, 2019. 18:16 Acuity: NIDA 3 aa5 18:16 Method Of Arrival: Ambulatory aa5 Triage Assessment: 18:20 General: Appears distressed, uncomfortable, obese, Behavior is cooperative, appropriate bp for age, agitated, anxious. Pain: Complains of pain in chest. EENT: No deficits noted. Neuro: No deficits noted. Cardiovascular: Rhythm is sinus rhythm. Respiratory: No deficits noted. GI: No signs and/or symptoms were reported involving the gastrointestinal system. : No signs and/or symptoms were reported regarding the genitourinary system. Derm: No deficits noted. Musculoskeletal: No deficits noted. Historical: - Allergies: 18:16 Naproxen; aa5 18:16 tramadol; aa5 - PMHx: 18:16 BRAIN TUMOR; Hydrocephalus; Migraines; Graves Disease; aa5 - PSHx: 18:16 Brain Tumor; Brain Shunt; aa5 - Immunization history:: Adult Immunizations unknown. - Social history:: Smoking status: Patient denies any tobacco usage or history of. Screenin:30 Abuse screen: Denies threats or abuse. Denies injuries from another. Nutritional bp screening: No deficits noted. Tuberculosis screening: No symptoms or risk factors identified. Fall Risk None identified. Assessment: 18:30 General: SEE TRIAGE NOTE. bp 21:39 Pain: Complains of pain in chest Pain does not radiate. Pain currently is 4 out of 10 rv on a pain scale. Neuro: Level of Consciousness is awake, alert, obeys commands, Oriented to person, place, time, situation. Cardiovascular: Patient's skin is warm and dry. Rhythm is sinus rhythm. 22:57 Reassessment: Patient states feeling better. Patient states symptoms have improved. rv General: Appears comfortable, Behavior is calm, cooperative. Pain: Denies pain. Neuro: Level of Consciousness is awake, alert, obeys commands, Oriented to person, place, time, situation. Cardiovascular: Rhythm is sinus rhythm. Vital Signs: 18:16 BP 126 / 78; Pulse 82; Resp 18 S; Temp 98.5(O); Pulse Ox 99% on R/A; Weight 120.2 kg aa5 (R); Height 5 ft. 4 in. (162.56 cm) (R); Pain 7/10; 18:30 BP 116 / 63; Pulse 85; Resp 19; Pulse Ox 100% ; bp 19:00 BP 124 / 71; Pulse 75; Resp 15; Pulse Ox 97% on R/A; rv 19:30 BP 117 / 82; Pulse 70; Resp 18; Pulse Ox 96% on R/A; rv 20:05 BP 134 / 73; Pulse 77; Resp 17; Pulse Ox 98% on R/A; rv 21:00 BP 110 / 62; Pulse 69; Resp 16; Pulse Ox 97% on R/A; rv 21:30 BP 105 / 49; Pulse 66; Resp 16; Pulse Ox 97% on R/A; rv 22:30 BP 118 / 66; Pulse 68; Resp 16; Pulse Ox 99% on R/A; rv 23:00 BP 112 / 71; Pulse 77; Resp 17; Temp 98.3; Pulse Ox 98% on R/A; rv 18:16 Body Mass Index 45.49 (120.20 kg, 162.56 cm) aa5 ED Course: 18:13 Patient arrived in ED. as 18:13 Sunil Mccall DO is Private Physician. as 18:16 Delvis Agrawal, RN is Primary Nurse. bp 18:16 Arm band placed on Patient placed in an exam room, on a stretcher. aa5 18:21 Konrad Cardona NP is PHCP. pm1 18:21 Sarmad Hall MD is Attending Physician. pm1 18:30 Patient has correct armband on for positive identification. Bed in low position. Call bp light in reach. Side rails up X2. community cultural development officer on. Pulse ox on. NIBP on. 18:30 Inserted saline lock: 20 gauge in right forearm, using aseptic technique. Blood bp collected. Patient maintains SpO2 saturation greater than 95% on room air. 18:31 Triage completed. aa5 18:46 XRAY Chest (1 view) In Process Unspecified. EDMS 19:50 Chest Pa And Lat (2 Views) XRAY In Process Unspecified. EDMS 22:58 No provider procedures requiring assistance completed. IV discontinued, intact, rv bleeding controlled, No redness/swelling at site. Pressure dressing applied. Administered Medications: 19:30 Drug: morphine 4 mg {Note: rass 0.} Route: IVP; Site: left forearm; rv 21:40 Follow up: Response: No adverse reaction; Marked relief of symptoms; Pain is decreased; rv RASS: Drowsy (-1) 19:56 Drug: Zofran (Ondansetron) 4 mg Route: IVP; Site: right forearm; rv 21:39 Follow up: Response: No adverse reaction rv Outcome: 22:54 Discharge ordered by MD. pm1 23:23 Discharged to home ambulatory. rv 23:23 Condition: good 23:23 Discharge instructions given to patient, Instructed on discharge instructions, follow up and referral plans. Demonstrated understanding of instructions, follow-up care. 23:23 Patient left the ED. rv Signatures: Dispatcher [employer] EDMS Dania Flynn Audri, RN RN aa5 Konrad Cardona, TODD STRAIGHT KNIFE MACHINE CUTTER pm1 Delvis Agrawal, CALEB RN bp Darien Borden RN RN rv Corrections: (The following items were deleted from the chart) 18:32 18:16 Chief complaint: Patient states: "I've been feeling tired all day today and about aa5 30 minutes ago I started feeling my heart rate on my back and I checked it and my heart rate was 120 but then it was 50". Pt also reports numbness to jarret arms and legs and chest pain. aa5
--- NOTE | 2019-12-09 22:54 | EDPHYS ---
Physician Documentation [facility] Name: Skye Figueroa Age: 44 yrs Sex: Female : 1975 Arrival Date: 12/09/2019 Time: 18:13 Bed 14 Private MD: Cal [facility] ED Physician Sarmad Hall HPI: 12/08 18:28 This 44 yrs old Female presents to ER via Ambulatory with complaints of Chest pm1 Pain, Palpitations. 18:28 The patient presents with a history of irregular heart beat. Context: The symptoms pm1 occur at rest, and the patient has a history of grave's disease that is being managed with medications, antithyroid agent and betablocker. Onset: The symptoms/episode began/occurred 1 hour(s) ago. Duration: The patient or guardian reports a single episode, that is now resolved. Associated signs and symptoms: Pertinent positives: chest pain, right arm numbness, Pertinent negatives: cough, nausea, SOB, vomiting. Severity of symptoms: in the emergency department the symptoms have improved. The patient has not experienced similar symptoms in the past. Historical: - Allergies: 18:16 Naproxen; aa5 18:16 tramadol; aa5 - PMHx: 18:16 BRAIN TUMOR; Hydrocephalus; Migraines; Graves Disease; aa5 - PSHx: 18:16 Brain Tumor; Brain Shunt; aa5 - Immunization history:: Adult Immunizations unknown. - Social history:: Smoking status: Patient denies any tobacco usage or history of. ROS: 18:28 Constitutional: Negative for fever, chills, and weight loss, Eyes: Negative for injury, pm1 pain, redness, and discharge, ENT: Negative for injury, pain, and discharge, Neck: Negative for injury, pain, and swelling. 18:28 Respiratory: Negative for shortness of breath, cough, wheezing, and pleuritic chest pain, Abdomen/GI: Negative for abdominal pain, nausea, vomiting, diarrhea, and constipation, Back: Negative for injury and pain, MS/Extremity: Negative for injury and deformity, Skin: Negative for injury, rash, and discoloration. 18:28 Cardiovascular: Positive for chest pain, palpitations, Negative for edema. 18:28 Neuro: Positive for numbness, of the right arm, Negative for headache, weakness. Exam: 18:28 Constitutional: This is a well developed, well nourished patient who is awake, alert, pm1 and in no acute distress. Head/Face: Normocephalic, atraumatic. Neck: Trachea midline, no thyromegaly or masses palpated, and no cervical lymphadenopathy. Supple, full range of motion without nuchal rigidity, or vertebral point tenderness. No Meningismus. Chest/axilla: Normal chest wall appearance and motion. Nontender with no deformity. No lesions are appreciated. Cardiovascular: Regular rate and rhythm with a normal S1 and S2. No gallops, murmurs, or rubs. Respiratory: Lungs have equal breath sounds bilaterally, clear to auscultation and percussion. No rales, rhonchi or wheezes noted. No increased work of breathing, no retractions or nasal flaring. Abdomen/GI: Soft, non-tender. No evidence of tenderness throughout. Back: No spinal tenderness. No costovertebral tenderness. Full range of motion. Skin: Warm, dry with normal turgor. Normal color with no rashes, no lesions, and no evidence of cellulitis. MS/ Extremity: Pulses equal, no cyanosis. Neurovascular intact. Full, normal range of motion. 18:28 Neuro: Exam negative for acute changes, Orientation: is normal, Mentation: is normal, Sensation: no obvious gross deficits. Vital Signs: 18:16 BP 126 / 78; Pulse 82; Resp 18 S; Temp 98.5(O); Pulse Ox 99% on R/A; Weight 120.2 kg aa5 (R); Height 5 ft. 4 in. (162.56 cm) (R); Pain 7/10; 18:30 BP 116 / 63; Pulse 85; Resp 19; Pulse Ox 100% ; bp 19:00 BP 124 / 71; Pulse 75; Resp 15; Pulse Ox 97% on R/A; rv 19:30 BP 117 / 82; Pulse 70; Resp 18; Pulse Ox 96% on R/A; rv 20:05 BP 134 / 73; Pulse 77; Resp 17; Pulse Ox 98% on R/A; rv 21:00 BP 110 / 62; Pulse 69; Resp 16; Pulse Ox 97% on R/A; rv 21:30 BP 105 / 49; Pulse 66; Resp 16; Pulse Ox 97% on R/A; rv 22:30 BP 118 / 66; Pulse 68; Resp 16; Pulse Ox 99% on R/A; rv 23:00 BP 112 / 71; Pulse 77; Resp 17; Temp 98.3; Pulse Ox 98% on R/A; rv 18:16 Body Mass Index 45.49 (120.20 kg, 162.56 cm) aa5 MDM: 18:28 Patient medically screened. pm1 22:53 Data reviewed: vital signs. Data interpreted: Pulse oximetry: on room air is 97 %. pm1 Interpretation: normal. Counseling: I had a detailed discussion with the patient and/or guardian regarding: the historical points, exam findings, and any diagnostic results supporting the discharge/admit diagnosis, lab results, radiology results, the need for outpatient follow up, to return to the emergency department if symptoms worsen or persist or if there are any questions or concerns that arise at home. 12/08 18:28 Order name: Basic Metabolic Panel; Complete Time: 19:23 pm1 12/08 18:28 Order name: CBC with Diff; Complete Time: 18:57 pm1 12/08 18:28 Order name: LFT's; Complete Time: 19:23 pm1 12/08 18:28 Order name: Magnesium; Complete Time: 19:23 pm1 12/08 18:28 Order name: NT PRO-BNP; Complete Time: 19:23 pm1 12/08 18:28 Order name: PT-INR; Complete Time: 18:57 pm1 12/08 18:28 Order name: Troponin (emerg Dept Use Only); Complete Time: 19:23 pm1 12/08 18:28 Order name: XRAY Chest (1 view); Complete Time: 19:16 pm1 12/08 18:57 Order name: TSH pm1 12/08 18:59 Order name: Thyroid Stimulating Hormone; Complete Time: 19:23 EDMS 12/08 19:17 Order name: Chest Pa And Lat (2 Views) XRAY; Complete Time: 20:25 pm1 12/08 21:27 Order name: Troponin (emerg Dept Use Only); Complete Time: 22:55 rv 12/08 18:28 Order name: EKG; Complete Time: 18:29 pm1 12/08 18:28 Order name: Cardiac monitoring; Complete Time: 18:31 pm1 12/08 18:28 Order name: EKG - Nurse/Tech; Complete Time: 18:29 pm1 12/08 18:28 Order name: IV Saline Lock; Complete Time: 18:51 pm1 12/08 18:28 Order name: Labs collected and sent; Complete Time: 18:51 pm1 12/08 18:28 Order name: O2 Per Protocol; Complete Time: 18:30 pm1 12/08 18:28 Order name: O2 Sat Monitoring; Complete Time: 18:30 pm1 12/08 18:28 Order name: Urine Dipstick-Ancillary (obtain specimen); Complete Time: 20:12 pm1 12/08 18:28 Order name: Urine Test (obtain specimen); Complete Time: 20:12 pm1 Administered Medications: 19:30 Drug: morphine 4 mg {Note: rass 0.} Route: IVP; Site: left forearm; rv 21:40 Follow up: Response: No adverse reaction; Marked relief of symptoms; Pain is decreased; rv RASS: Drowsy (-1) 19:56 Drug: Zofran (Ondansetron) 4 mg Route: IVP; Site: right forearm; rv 21:39 Follow up: Response: No adverse reaction rv Disposition: 12/09 07:37 Co-signature as Attending Physician, Sarmad Hall MD. al2 Disposition: 12/09/19 22:54 Discharged to Home. Impression: Palpitations, Chest pain, unspecified. - Condition is Stable. - Discharge Instructions: Nonspecific Chest Pain, Palpitations. - Medication Reconciliation Form, Thank You Letter, Antibiotic Education, Prescription Opioid Use form. - Follow up: Emergency Department; When: As needed; Reason: Worsening of condition. Follow up: Private Physician; When: 2 - 3 days; Reason: Recheck today's complaints, Continuance of care, Re-evaluation by your physician. - Problem is new. - Symptoms have improved. Signatures: Dispatcher [employer] EDMS Monae Horton, RN RN aa5 Konrad Cardona, TODD ROTARY ROCK DRILLING MACHINE OPERATOR pm1 Sarmad Hall MD MD ma2 Darien Borden RN RN rv Corrections: (The following items were deleted from the chart) 12/08 18:59 18:57 Thyroid Stimulating Hormone ordered. EDMS EDMS 23:23 22:54 12/09/2019 22:54 Discharged to Home. Impression: Palpitations; Chest pain, rv unspecified. Condition is Stable. Forms are Medication Reconciliation Form, Thank You Letter, Antibiotic Education, Prescription Opioid Use. Follow up: Emergency Department; When: As needed; Reason: Worsening of condition. Follow up: Private Physician; When: 2 - 3 days; Reason: Recheck today's complaints, Continuance of care, Re-evaluation by your physician. Problem is new. Symptoms have improved. pm1
[2019-12-10 18:04] VITALS: BP 112/71; TEMP 98.3; O2SAT 98
--- NOTE | 2019-12-11 05:21 | EKG ---
Test Date: 2019-12-09 Test Time: 18:25:56 Blanket Maker: SOTO MEASUREMENT RESULTS: Intervals: Rate: 80 [place]: 152 QRSD: 82 QT: 370 QTc: 426 [place]: P: 30 [place]: 152 QRS: 47 T: 18 INTERPRETIVE STATEMENTS: Normal sinus rhythm with sinus arrhythmia Normal ECG Compared to ECG 11/25/2019 23:56:28 Sinus tachycardia no longer present Myocardial infarct finding no longer present Electronically Signed On 12-11-19 05:20:33 CDT by Neel Sosa
--- NOTE | 2019-12-11 20:03 | EKG ---
Test Date: 2019-12-10 Test Time: 00:53:03 Music Teacher: SOTO MEASUREMENT RESULTS: Intervals: Rate: 64 DC: 222 QRSD: 92 QT: 432 QTc: 445 [place]: P: 45 DC: 222 QRS: -29 T: 40 INTERPRETIVE STATEMENTS: Sinus rhythm with 1st degree AV block Cannot rule out Anterior infarct, age undetermined Abnormal ECG Compared to ECG 12/09/2019 18:25:56 First degree AV block now present Myocardial infarct finding now present Sinus arrhythmia no longer present Electronically Signed On 12-11-19 19:59:36 CDT by Neel Sosa
== END 2019-12-09 23:23 | disposition home or self-care (01) ==
LOC: ER 18:11
DX: R00.2 Palpitations (principal); E05.00 Thyrotoxicosis with diffuse goiter without thyrotoxic crisis or storm; Z88.5 Allergy status to narcotic agent; Z86.011 Personal history of benign neoplasm of the brain
CPT/HCPCS: 93005; 85025; 80048; 36415; 83735; 85610; 80076; 84443; 84484 ×2; 83880; 71045; 71046; 99285; J2405

== ENCOUNTER 2020-01-15 00:55 | Emergency (ER) | payer OTHER ==
--- OUTSIDE RECORDS SUMMARY | 2020-01-15 00:59 | XMS REPORT | Continuity of Care Document ---
:1975 Author Organization [facility] t Address [address] [place] [address] Care Team Providers Name Role Phone Christiano Mccall DO Primary Care Physician Doctor Unassigned, Name Attending Clinician Unavailable Joni HAHN Attending Clinician Scarlett Mccall Attending Clinician Unavailable Christiano Mccall DO Attending Clinician Bridgette Mccall MD Attending Clinician Unavailable Payers Payer Name Policy Type Policy Effective Date Expiration Date Sour ce Number MEDICAID - [id number] 2019 [facility] MEDICAID MGD 00:00:00 - [facility] [id number] caid Contracted Problems This patient has no known problems. Allergies, Adverse Reactions, Alerts This patient has no known allergies or adverse reactions. Social History Social Habit Start Date Stop Date Quantity Comments Source Sex Assigned At [facility] Medications Ordered Filled Start Stop Current Ordering Indication Dosage Frequency Signature Comments Components Source Medication Medication Date Date Medication? Clinician (SIG) Name Name Propranolol Propranolol 0 Yes Sunil [address] [facility] HCl HCl 9-10 [facility] Ondansetron Ondansetron Yes Sunil [address] [facility] 8-18 [facility] - [facility]: tongue and [facility] 00 allow to l dissolve Outpati 30 minutes ent prior to Clinics meals Ambien Ambien Yes Sunil [facility] Sumatriptan Sumatriptan Yes Sunil [address] [facility] Succinate Succinate [facility] as [facility] Methimazole Methimazole Yes Sunil [address] [facility] Montelukast Montelukast Yes Sunil [address] [facility] Sodium Sodium [facility] Lyrica Lyrica Yes Sunil [address] [facility] Hydrochloro Hydrochloro Yes Sunil [address] [facility] thiazide thiazide [facility] Procedures Procedure Date / Time Performed Performing Clinician [facility] e NM THYROID UPTAKE AND 2019-11-08 12:32:00 Sunil [facility]onya [facility] Plan of Care Planned Activity Planned Date Details Comments Source Future Scheduled 2020-01-[address] [facility] Test 00:00:00 (procedure) [code = [facility] [id number]] Future Scheduled 2019-12-[address] [facility] - Test 00:00:00 (#1) [code = [facility] INFLUENZA VACCINE (#1)] Future Scheduled 1996-01-[address] [facility] - Test 00:00:00 malignant neoplasm Medical C enter of cervix (procedure) [code = [id number]] Encounters Start End Encounter Admission Attending Care Care Encounter Source Date/Time Date/Time Type Type Clinicians Facility Department ID 2020-01-07 2020-01-07 Outpatient [facility] [id number] [facility] 2020-01-07 2020-01-07 Orders Doctor AGUILAR [id number] 00:00:00 00:00:00 Only Unassigned, NICHOLAS [id number] [place] [facility] [id number] 2020-01-03 2020-01-03 Office JACKIE Quinones [id number] 11:07:14 12:05:52 Visit Angelina Vu [id number] [place] [id number] [facility] [id number] [address] 2019-12-19 2019-12-19 [facility] [id number] [facility] 16:30:00 16:30:00 t [employer] TROD Medical [facility] Medicine l Medicine Outpati ent Clinics 2019-12-18 2019-12-18 [facility] [id number] [facility] 13:33:00 13:33:00 t [employer] TROD Medical [facility] Medicine l Medicine Outpati ent Clinics 2019-12-09 2019-12-09 [facility] [id number] [facility] 17:43:00 17:43:00 t [employer] s - tuul [facility] Medicine l Medicine Outpati ent Clinics 2019-11-26 2019-11-26 [facility] [id number] [facility] 15:17:00 15:17:00 t [employer] TROD Medical [facility] Medicine l Medicine Outpati ent Clinics 2019-11-24 2019-11-24 [facility] [id number] [facility] 15:24:00 15:24:00 t [employer] TROD Medical [facility] l Medicine Outpati ent Clinics 2019-11-22 2019-11-22 [facility] [id number] [address] 16[facility]03:00 16:03:00 t [employer] TROD Medical [facility] l Medicine Outpati ent Clinics 2019-11-19 2019-11-19 [facility] [id number] [facility] 14:35:00 14:35:00 t [employer] TROD Medical [facility] Medicine l Medicine Outpati ent Clinics 2019-11-16 2019-11-16 [facility] [id number] [address] 09:15:00 09:15:00 t [employer] TROD Medical [facility] l Medicine Outpati ent Clinics 2019-11-08 2019-11-08 [facility] [id number] [facility] 09:12:00 09:12:00 t Notable Limited [facility] Medicine Outpati ent Clinics 2019-10-30 2019-10-30 Outpatient Catalin[facility] [id number] [facility] [address] 17:05:00 17:05:00 t HeTexted - tuul [facility] Medicine Outpati ent Clinics 2019-10-29 2019-10-29 [facility] [id number] [facility] 15:04:00 15:04:00 t HeTexted - tuul [facility] Medicine Outpati ent Clinics 2019-10-29 2019-10-29 [facility] [id number] [address] 08:06:00 08:06:00 t HeTexted - tuul [facility] Medicine Outpati ent Clinics 2019-10-22 2019-10-22 [facility] [id number] [facility] 12:23:00 12:23:00 t Notable Limited [facility] Medicine Outpati ent Clinics 2019-10-18 2019-10-18 [facility] [id number] [facility] 14:30:00 14:30:00 t Notable Limited [facility] Medicine Outpati ent Clinics 2019-09-20 2019-09-20 [facility] [id number] [address] 09:00:00 09:00:00 t Notable Limited [facility] Medicine Outpati ent Clinics Results Test Description Test Time Test Comments Results Result [facility] e Comments THYROID IMAGING 2019-11-09 FINAL REPORT PATIENT W/ UPTAKE, 09:03:00 ID: [id number] MULTIPLE PROCEDURE: THYROID SCAN AND UPTAKES CPT CODE: 07313 INDICATION: Hyperthyroidism PROTOCOL: 0.238 mCi of I-123 [...] scan.2. Borderline elevated overall iodide uptakes. Signed: Konrad Hi Verified Date/Time: 11/09/2019 09:03:02 Reading Location: [address] Reading Room thyroid uptake 2019-11-09 Interface, External [facility] and scan-24 only 09:03:00 Ris In - 11/09/2019 - Medical 9:05 AM CDTFINAL Center REPORT PROCEDURE: THYROID SCAN AND UPTAKES CPT CODE: 41444 INDICATION: Hyperthyroidism PROTOCOL: 0.238 mCi of I-123 [...]
--- OUTSIDE RECORDS SUMMARY | 2020-01-15 00:59 | XMS REPORT ---
[...] Status Dosage System Date Date Hydrochlorothiazide ND 73566417624 25 MG Orally Act vivi 1 tablet Once a day in the morning Sumatriptan Succinate ND 37168530922 50 MG Orally A ctive 1 tablet Once a day as needed Ambien ND 14496795145 5 MG Orally Active 1 tablet Once a day at bedtime as needed Montelukast Sodium ND 37863897673 10 MG Orally Acti ve 1 tablet Once a day Lyrica ND 10887018767 75 MG Orally Active 1 capsu le twice a day Results No Known Results Summary Purpose eClinicalWorks Submission
--- OUTSIDE RECORDS SUMMARY | 2020-01-15 00:59 | XMS REPORT | Clinical Summary ---
:1975 Author Organization [facility] Address [address] [place] [address] Care Team Providers Name Role Phone Christiano Mccall DO Primary Care Provider Allergies Not on File Medications Not on file Active Problems Not on file Encounters Date Type Specialty Care Team Description 11/08/2019 Hospital Encounter Sunil Mccall 11/08/2019 Hospital Encounter Sunil Mccall Subclini orin hyperthyroidism DO Christiano 10/30/2019 Outside Orders Sunil Mccall Subclinical hyperthyroidism MD Bridgette (Primary Dx) after 01/14/2019 Social History Tobacco Use Types Packs/Day Years Used Date Never Assessed Sex Assigned at Date Recorded Not on file Last Filed Vital Signs Not on file Plan of Treatment Health Maintenance Due Date Last Done Comments CERVICAL CANCER SCREENING PAP ONLY (Age 21-65) 01/05/1996 INFLUENZA VACCINE (#1) 2019 LIPID PANEL 01/05/2020 Procedures Procedure Name Priority Date/Time Associated Diagnosis Comme nts NM THYROID UPTAKE Routine 11/08/2019 12:32 Subclinical Result s for this AND SCAN SINGLE PM CDT hyperthyroidism procedure are in the results section. after 01/14/2019 Results NM thyroid uptake and scan-24 only (11/08/2019 12:32 PM CDT) Specimen Narrative Performed At FINAL REPORT [facility] PROCEDURE: THYROID SCAN AND UPTAKE S CPT CODE: [id number] INDICATION: Hyperthyroidism PROTOCOL: 0.238 mCi of I-123 so dium iodide was administered orally. Thyroid radioiodide uptake was measured approximately 4 and 24 hours later. Anterior and anterior- oblique thyroid images were obtained approximately 24 hours after tr acer injection. FINDINGS: Thyroid iodide uptake was approx imately 18% at four hours and 28% at 24 hours. (Reference Ranges: 4 hours: 5-15 %; 24 hours: 10-25%.) Tracer distribution is physiological in the thyroid gland. It has a plump appearance with the left lobe bein g greater in size in the right. Otherwise the gland has a normal size, shape, and location. IMPRESSION: 1. Normal thyroid scan. 2. Borderline elevated overall iodide up takes. Signed: Indigo Hi MD Report Verified Date/Time: 11/09/2019 09:03:02 Reading Location: [address] Nuc Med Reading Room Procedure Note Interface, External Ris In - 11/09/2019 9:05 AM CDT FINAL REPORT PROCEDURE: THYROID SCAN AND UPTAKES CPT CODE: [id number] INDICATION: Hyperthyroidism PROTOCOL: 0.238 mCi of I-123 [...] Verified Date/Time: 11/09/2019 0 9:03:02 Reading Location: [address] [place] Med Reading Room Performing Organization Address City/State/Zipcode Phone Number GE RIS after 01/14/2019 Insurance Payer Benefit Plan Subscriber ID Effective Dates Phone Address Type / Group MEDICAID - [facility] [id number] 2019-Merary Adkins [place]ke MEDICAID MGD STAR PLAN [facility]
--- OUTSIDE RECORDS SUMMARY | 2020-01-15 00:59 | XMS REPORT ---
:1975 Author Organization e[employer] Care Team Providers Name Role Phone Mccall [facility] Provider Role Unavailable Allergies No Known Allergies [...]
--- OUTSIDE RECORDS SUMMARY | 2020-01-15 01:00 | XMS REPORT ---
:1975 Author Organization eClinicalWorks Care Team Providers Name Role Phone Cal [facility] Provider Role Unavailable Allergies No Known [...]
--- OUTSIDE RECORDS SUMMARY | 2020-01-15 01:00 | XMS REPORT ---
:1975 Author Organization eClinicalWorks Care Team Providers Name Role Phone [facility] Provider Role Unavailable Allergies [...]
--- OUTSIDE RECORDS SUMMARY | 2020-01-15 01:00 | XMS REPORT ---
[...] Dosage System Date Date Sumatriptan Succinate ND 32379505035 50 MG Orally A ctive 1 tablet Once a day as needed Hydrochlorothiazide ND 41109340905 25 MG Orally Act vivi 1 tablet Once a day in the morning Montelukast Sodium [facility] 71223834970 10 MG Orally Acti ve 1 tablet Once a day Ambien [facility] 68209617453 5 MG Orally Active 1 tablet Once a day at bedtime as needed Lyrica [facility] 92519458823 75 MG Orally Active 1 capsu le twice a day Results No Known Results Summary Purpose eClinicalWorks Submission
--- OUTSIDE RECORDS SUMMARY | 2020-01-15 01:00 | XMS REPORT ---
:1975 Author Organization eClinicalWorks Care Team Providers Name Role Phone Cal [facility] Provider Role Unavailable Allergies No Known [...]
--- OUTSIDE RECORDS SUMMARY | 2020-01-15 01:00 | XMS REPORT ---
:1975 Author Organization eClinicalWorks Care Team Providers Name Role Phone Mccall [facility] Provider Role Unavailable Allergies No Known [...]
--- OUTSIDE RECORDS SUMMARY | 2020-01-15 01:01 | XMS REPORT ---
[...] Start Date End Date Status Dosage Atenolol [facility] 25486491828 25 MG Orally Once Nov 25, Active 1 tablet a day 2019 Results No Known Results Summary Purpose eClinicalWorks Submission
--- OUTSIDE RECORDS SUMMARY | 2020-01-15 01:01 | XMS REPORT ---
[...] End Date Status Dosage System Date Ondansetron [facility] 36235925555 4 MG Orally Nov 19, Active 1 ta blet on three times a 2019 the day and allow to dissolve 30 minutes prior to meals Methimazole ND 24494828239 5 MG Orally Nov 19, Active 1 ta blet twice a day 2019 once a day x 2 days then Results No Known Results Summary Purpose eClinicalWorks Submission
--- OUTSIDE RECORDS SUMMARY | 2020-01-15 01:01 | XMS REPORT ---
:1975 Author Organization eClinicalWorks Care Team Providers Name Role Phone Cal [facility] Provider Role Unavailable Allergies No Known Allergies [...]
--- OUTSIDE RECORDS SUMMARY | 2020-01-15 01:02 | XMS REPORT ---
:1975 Author Organization eClinicalWorks Care Team Providers Name Role Phone Sunil Mccall Provider Role Unavailable Allergies No Known Allergies Problems Problem Type Condition Code Onset Dates Condition Statu s Problem Essential hypertension I10 Activ e Problem Insomnia, unspecified type G47.00 A ctive Problem Allergic rhinitis, unspecified J30.9 Active seasonality, unspecified trigger Assessment Graves disease E05.00 Active Problem Abnormal laboratory test R89.9 Act vivi Problem Hyperthyroidism E05.90 Active Problem Graves disease E05.00 Active Problem Abnormal mammogram of left breast R92.8 Active Problem Migraine without aura and without G43.009 Active status migrainosus, not intractable Problem Morbid (severe) obesity due to E66.01 Active excess calories Problem Body mass index (BMI) 45.0-49.9, Z68.42 Active adult Medications Medication Code Code Instructions Start End Status Dosage System Date Date Propranolol HCl [facility] 57754871956 20 MG Orally Dec 12, Active 1 tablet three times a 2019 day Atenolol [facility] 36897627424 25 MG Orally Nov 25, Inactive 1 tab let Once a day 2019 Results No Known Results Summary Purpose eClinicalWorks Submission
--- OUTSIDE RECORDS SUMMARY | 2020-01-15 01:03 | XMS REPORT | Summary of Care ---
:1975 Author Organization [facility] Address [address] [place] [address] Care Team Providers Name Role Phone Sunil Mccall Primary Care Provider Reason for Visit Reason Comments Refill Request Encounter Details Date Type Department Care Team Description 12/13/2019 Refill [facility] Cardiology- Imani De Leon MD Refill Request [address], [address] [facility] [address] [place] [address] [place] [address] [phone] Allergies Active Allergy Reactions Severity Noted Date Comments Tramadol Hallucinations 11/15/2014 documented as of this encounter (statuses as of 12/14/2019) Medications Medication Sig Dispensed Refills Start Date End Date Status HYDROCHLOROTHIAZIDE ORAL Take 10 mg 0 Active by mouth daily. pregabalin (LYRICA ORAL) Take by 0 Active mouth daily. montelukast 10 mg tablet Take 10 mg 0 Active by mouth daily. methazolAMIDE 50 mg Take 50 mg 0 Active tablet by mouth daily. sumatriptan Take by 0 Active succ/naproxen sod mouth as (SUMATRIPTAN-NAPROXEN needed. ORAL) PROPRANOLOL 20 mg TAKE 1 270 tablet 2 12/14/2019 01/13/20 Active tabletIndications: TABLET BY 20 Atypical chest pain MOUTH 3 (THREE) TIMES DAILY FOR 30 DAYS. propranoloL 20 mg Take 1 90 tablet 3 12/13/2019 12/14/19 D iscontinued tabletIndications: tablet by 20 Atypical chest pain mouth 3 (three) times daily for 30 days. documented as of this encounter (statuses as of 12/14/2019) Active Problems Problem Noted Date Immune to varicella 09/30/2016 BMI 45.0-49.9, adult 09/29/2016 Excessive or frequent menstruation 09/22/2016 Knee pain, left 07/08/2015 documented as of this encounter (statuses as of 12/14/2019) Social History Tobacco Use Types Packs/Day Years Used Date Never Smoker Smokeless Tobacco: Never Used Alcohol Use Drinks/Week oz/Week Comments No 0 Standard drinks or equivalent 0.0 Sex Assigned at Date Recorded Not on file COVID-19 Exposure Response Date Recorded In the last month, have you been in contact with No / Unsure 12/13/2019 10:58 AM CDT someone who was confirmed or suspected to have Coronavirus / COVID-19? documented as of this encounter Last Filed Vital Signs Not on filedocumented in this encounter Plan of Treatment Date Type Specialty Care Team Description 12/18/2019 Laboratory Only Cardiology Pc, Adc Echo Room 1 - 12/18/2019 Office Visit Surgery Angelina Quinones MD [address] [facility] [address] [place] [address] [phone] 01/29/2020 Office Visit Cardiology Imani De Leon MD [address] [facility] [place] [phone] Health Maintenance Due Date Last Done Comments DTaP,Tdap,and Td Vaccines (1 - 1994 Tdap) Breast Cancer Screening 2015 (MAMMOGRAM) PAP SMEAR 09/30/2019 09/29/2016 INFLUENZA VACCINE (#1) 2019 Depression Screening 12/12/2020 12/13/2019 PNEUMOCOCCAL 0-64 YEARS COMBINED Aged Out No longer eligible based on SERIES patient's age to complete this topic documented as of this encounter Results Not on filedocumented in this encounter Visit Diagnoses Diagnosis Atypical chest pain Other chest pain documented in this encounter Insurance Payer Benefit Plan / Subscriber ID Effective Dates Phone Addre ss Type Group [facility] [id number] 2019-Present Medicaid COMM PLAN - PLUS MANAGED MEDICAID documented as of this encounter
--- OUTSIDE RECORDS SUMMARY | 2020-01-15 01:03 | XMS REPORT | Summary of Care ---
:1975 Author Organization [facility] - [facility] Address [address] [place] [address] Care Team Providers Name Role Phone CalMarizolh Jed Primary Care Provider Reason for Referral (Routine) Status Reason Specialty Diagnoses / Referred By Referred To Procedures Contact Contact Authorized Cardiology Diagnoses Atypical chest pain De Leon Sendtequila Procedures ECHO ROUTINE W/DOPPLER COLOR Preferred Location: [facility] MD Sheyla [address] [place] [address] Reason for Visit Reason Comments New Patient Establish Care Ekg Done today in office Encounter Details Date Type Department Care Team Description 12/13/2019 Office Visit [facility] De LeonImani aranda Atypical ches t pain (Primary Dx); Cardiology- Mirella Carrion MD Palpitations; [address] Hyperthyroidism; Drive, [address] OROPEZA (dyspnea on exertion) [place] [phone] Allergies Active Allergy Reactions Severity Noted Date Comments Tramadol Hallucinations 11/15/2014 documented as of this encounter (statuses as of 12/16/2019) Medications Medication Sig Dispensed Refills Start End Date Status Date HYDROCHLOROTHIAZIDE Take 10 mg 0 Active ORAL by mouth daily. pregabalin (LYRICA Take by 0 A ctive ORAL) mouth daily. montelukast 10 mg Take 10 mg 0 A ctive tablet by mouth daily. methazolAMIDE 50 mg Take 50 mg 0 Active tablet by mouth daily. sumatriptan Take by 0 Active succ/naproxen sod mouth as (SUMATRIPTAN-NAPROXEN needed. ORAL) gabapentin (NEURONTIN) Take 300 mg 0 12/12 Discontinued 300 mg capsule by mouth 2 20 (The rapy (two) times complete d) daily. norethin-e.estradiol Take 1 1 Package 12 12/13/19 Discontinued triphasic (ORTHO-NOVUM tablet by 7 20 (Therapy ,) 0.5/0.75/1 mouth completed) mg- 35 mcg daily. tabletIndications: control counseling, Menorrhagia with irregular cycle ibuprofen 800 mg Take 1 30 tablet 0 12/13/19 Dis continued tabletIndications: Pain tablet by 7 20 (Therapy pelvic mouth every complete d) 6 (six) hours as needed (heavy vaginal bleeding). acetaminophen-codeine Take 1 20 tablet 0 12/13/19 Discontinued 300-30 mg tablet tablet by 8 20 (Th erapy mouth every complete d) 4 (four) hours as needed for Pain (scale 4-6) or Pain (scale 7-10). diclofenac 75 mg EC Take 1 60 tablet 1 12/13/19 Discontinued tablet tablet by 9 20 (Therapy mouth 2 completed) (two) times daily with meals. atenoloL 50 mg tablet Take 50 mg 0 0 Discontinued by mouth 20 daily. propranoloL 20 mg Take 1 90 tablet 3 12/14/19 Di scontinued tabletIndications: tablet by 0 20 Atypical chest pain mouth 3 (three) times daily for 30 days. documented as of this encounter (statuses as of 12/16/2019) Active Problems Problem Noted Date Immune to varicella 09/30/2016 BMI 45.0-49.9, adult 09/29/2016 Excessive or frequent menstruation 09/22/2016 Knee pain, left 07/08/2015 documented as of this encounter (statuses as of 12/16/2019) Social History Tobacco Use Types Packs/Day Years [...] of this encounter Last Filed Vital Signs Vital Sign Reading Time Taken Comments Blood Pressure 126/80 12/13/2019 11:05 AM CDT Pulse 79 12/13/2019 11:05 AM CDT Temperature - - Respiratory Rate 19 12/13/2019 11:05 AM CDT Oxygen Saturation 93% 12/13/2019 11:05 AM CDT Inhaled Oxygen Concentration - - Weight 123 kg (271 lb 3.2 oz) 12/13/2019 11:05 AM CDT Height 162.6 cm (5' 4") 12/13/2019 11:05 AM CDT Body Mass Index 46.55 12/13/2019 11:05 AM CDT documented in this encounter Progress Notes Imani De Leon MD - 12/13/2019 11:00 AM CDT [facility] Cardiology Consult Note Patient: Skye Figueroa Date of : 1975 Date of service: 12/13/2019 Primary Care Physician: Sunil Mccall CHIEF COMPLAINT: Chief Complaint Patient presents with New Patient Establish Care Ekg Done today in office HISTORY OF PRESENT ILLNESS: Skye Figueroa is a 44 year old female presented to the clinic for evaluation for chest pain/palpitations. History from patient. Patient seen and examined in the room. Pertinent cardiac related history reviewed from chart Reports in last one month, noted to have hyperthyroidism. Saw Endo. Diagnosed to have grave's diease. Started on methimazole and atenolol. Reports in last 2 weeks, noted to have chest pain Patient reports has been having chest pain, felt like tightness/squeezing in her retrosternal area, lasted for few mins to 15 mins, with no clear aggravating or alleviating factors. No radiation. No typical exertional symptoms noted. OROPEZA NYHA Class II. Palpitations at random. Frequency varies. Happens fews times in a month. Starts and stops quickly. No associated complaints noted. No syncope. No PND or orthopnea. No pedal edema. No exertional palpitations or palpitations at rest. No syncopalattacks. Previous Cardiac Studies: IMAGING - I personally reviewed, pertinent results as below: ECG awaiting from PCP office Labs reviewed from Care everywhere PAST MEDICAL HISTORY Past Medical History: Diagnosis Date Cancer brain cancer Nerve damage Past Surgical History: Procedure Laterality Date APPENDECTOMY CHOLECYSTECTOMY ENDOSCOPIC V-P SHUNT PLACEMENT 2009 EYE SURGERY EYE SURGERY "lazy eye" KNEE ARTHROSCOPY Left 11/2014 SURGERY,BRAIN/SPINE,W/COMPUTER Family History Problem Relation Age of Onset Cancer Mother Diabetes Father Diabetes Maternal Grandmother Heart Maternal Grandmother SOCIAL HISTORY Social History Socioeconomic History Marital status: Single Spouse name: Not on file Number of children: Not on file Years of education: Not on file Highest education level: Not on file Occupational History Not on file Social Needs Financial resource strain: Not on file Food insecurity Worry: Not on file Inability: Not on file Transportation needs Medical: Not on file Non-medical: Not on file Tobacco Use Smoking status: Never Smoker Smokeless tobacco: Never Used Substance and Sexual Activity Alcohol use: No Alcohol/week: 0.0 standard drinks Drug use: Not on file Sexual activity: Not on file Lifestyle Physical activity Days per week: Not on file Minutes per session: Not on file Stress: Not on file Relationships Social connections Talks on phone: Not on file Gets together: Not on file Attends jewish service: Not on file Active member of club or organization: Not on file Attends meetings of clubs or organizations: Not on file Relationship status: Not on file Intimate partner violence Fear of current or ex partner: Not on file Emotionally abused: Not on file Physically abused: Not on file Forced sexual activity: Not on file Other Topics Concern Not on file Social History Narrative Not on file ALLERGIES Allergies Allergen Reactions Tramadol Hallucinations MEDICATIONS Patient's Medications START taking these medications PROPRANOLOL 20 MG TABLET TAKE 1 TABLET BY MOUTH 3 (THREE) TIMES DAILY FOR 30 DAYS. CONTINUE taking these medications which have NOT CHANGED HYDROCHLOROTHIAZIDE ORAL Take 10 mg by mouth daily. METHAZOLAMIDE 50 MG TABLET Take 50 mg by mouth daily. MONTELUKAST 10 MG TABLET Take 10 mg by mouth daily. PREGABALIN (LYRICA ORAL) Take by mouth daily. SUMATRIPTAN SUCC/NAPROXEN SOD (SUMATRIPTAN-NAPROXEN ORAL) Take by mouth as needed. START taking Modified Medications as Prescribed No medications on file STOP taking these medications ACETAMINOPHEN-CODEINE 300-30 MG TABLET Take 1 tablet by mouth every 4 (four) hours as needed forPain (scale 4-6) or Pain (scale 7-10). ATENOLOL 50 MG TABLET Take 50 mg by mouth daily. DICLOFENAC 75 MG EC TABLET Take 1 tablet by mouth 2 (two) times daily with meals. GABAPENTIN (NEURONTIN) 300 MG CAPSULE Take 300 mg by mouth 2 (two) times daily. IBUPROFEN 800 MG TABLET Take 1 tablet by mouth every 6 (six) hours as needed (heavy vaginal bleeding). NORETHIN-E.ESTRADIOL TRIPHASIC (ORTHO-NOVUM , 28,) 0.5/0.75/1 MG- 35 MCG TABLET Take 1 tablet by mouth daily. REVIEW OF SYSTEMS: Comprehensive 10-system review was conducted and were negative except for what's noted in the HPI. The following systems were reviewed: Constitutional, cardiovascular, respiratory, gastrointestinal, genitourinary, musculoskeletal, neurologic, psychiatric, endocrinological, and hematological. PHYSICAL EXAMINATION: Vitals: 12/13/19 1105 BP: 126/80 BP Location: Left arm Patient Position: Sitting BP CUFF SIZE: Adult Large Pulse: 79 Resp: 19 SpO2: 93% Weight: 271 lb 3.2 oz (123 kg) Height: 5' 4" (1.626 m) General: no apparent distress HEENT: normocephalic atraumatic Neck: supple, no lymphadenopathy, no bruits, no JVD Lungs: clear to auscultation bilaterally. No wheezes or rhonchi. No increased work of breathing. Cardio: Regular rate and rhythm, S1&S2 normal, no murmurs, rubs or gallops Abdomen: soft; non-tender; non-distended; normoactive bowel sounds. : not examined Rectal: not examined Extremities: no clubbing, cyanosis, or edema. Skin: no rashes, no visible lesions. Neuro: no gross focal deficits LABS - Reviewed pertinent labs as below: CBC BMP PT/INR WBC (10*3/L) Date Value 09/22/2016 8.35 NA (mmol/L) Date Value 08/15/2017 138 No results found for: PT PLT (10*3/L) Date Value 09/22/2016 409 (H) K (mmol/L) Date Value 08/15/2017 4.5 No results found for: PTINR HGB (g/dL) Date Value 09/22/2016 15.0 BUN (mg/dL) Date Value 08/15/2017 13 HCT (%) Date Value 09/22/2016 45.8 (H) CREATININE (mg/dL) Date Value 08/15/2017 0.80 LIPID PROFILE GLUCOSE (mg/dL) Date Value 08/15/2017 92 No results found for: CHOL TSH No results found for: LDL TSH (mIU/L) Date Value 09/22/2016 2.51 CARDIAC ENZYMES No results found for: HDL No results found for: CK No results found for: TRIG LFTs No results found for: CKMB No results found for: AST No results found for: TROPNI No results found for: ALT No results found for: BNP No results found for: LDL There are no current results on file for these tests and/or test for 1 year. There are no current results on file for these tests and/or test for 1 year. No results found for: LDL No results found for: NTBNP Labs 12.09.2019 BMP: Normal Trop: neg BNP Normal CBC Normal CMP Normal except ALK Phos 145 ASSESSMENT/PLAN 1. Atypical chest pain ECHO ROUTINE W/DOPPLER COLOR Preferred Location: [facility] DISCONTINUED: propranoloL 20 mg tablet 2. Palpitations 3. Hyperthyroidism 4. OROPEZA (dyspnea on exertion) Atypical chest pain by history/OROPEZA: Awaiting ECG from PCP office Labs reviewed from Care everywhere which was within acceptable limits. In view of symptoms of OROPEZA NYHA Class II/atypical chest pain and palpitations, recommended echo to assess for structural abnormalities in terms of regional wall abnormalities, VHD, diastolic dysfunction and RV function. Based on Echo, may need event monitor or Ex TMT. Palpitations: like Sinus tachycardiac in the setting of hyperthyroidism Recommend to change Atenolol to Inderal 20 mg TID. Will titrate based on HR. BP/HR log in 2 weeks. Recommend to keep resting HR around 80 Hyperthyroidism: Follows [facility]. Follow up in 6 weeks. Orders Placed This Encounter Procedures ECHO ROUTINE W/DOPPLER COLOR Preferred Location: [facility] Requested Prescriptions No prescriptions requested or ordered in this encounter Patient's diease process and its evaluation and treatment were discussed. We discussed each of for cardio vascular-related problems and discussed long-term goals and expectations for the each problem.I reviewed each of the cardiac medications in detail. Reviewed the medication with patient in detail recommended to continue taking the current medications without further changes other than changes mentioned above. Recommended goal BP < 130/80 consistently, LDL << 70, HbA1c < 6.5. Recommended, explained and stressed the importance of healthy eating habits and exercises and lifestyle modifications Follow up as planned is predicated on symptoms stability and/or acceptable test results. Patient is urged to call in sooner should problems arise or if there is no improvement in cardiac symptoms. ER warning signs and symptoms explained and patient verbalized understanding. My diagnostic impression and treatment plans were discussed at length with the patient. All side effects as well as drug-drug interactions and risks discussed at length. Ample opportunity was offered and encouraged to ask questions during this visit and patient appreciated the answers given by me [email or web address] statisfcation in the answers given. We reviewed the [place] [employer] recommendations for reduction of overall cardio vascular risk. The importance of monitoring the blood pressure carefully both at home on regular basis along with other physicians appointment was stressed in detail. In addition we discussed target LDL levels for optimal risk reduction. It was advised that to daily physical activity be performed with 30 minutes of sustained exercise for both cardio vascular fitness and improvement for generalized medical health and well-being. Thank you for allowing us to participate in the care of Skye Figueroa. If you have any questions or concerns please feel free to call our office at [phone]. I would be happy to be of further assistance for Skye Figueroa wellbeing. Rommel De Leon MD Crime Scene Photographer, Division of Cardiology [facility] documented in this encounter Plan of Treatment Date Type Specialty Care Team Description 12/18/2019 Laboratory Only Cardiology Pc, Adc Echo Room 1 - 12/18/2019 Office Visit Surgery Angelina Quinones MD [address] [facility] [address] [place], [place] [address] 01/29/2020 Office Visit Cardiology Imani De Leon MD [address] [place] [phone] Health Maintenance Due Date Last Done [...] encounter Visit Diagnoses Diagnosis Atypical chest pain - Primary Other chest pain Palpitations Hyperthyroidism Thyrotoxicosis without mention of goiter or other cause, without mention of thyrotoxic crisis or storm OROPEZA (dyspnea on exertion) Other dyspnea and respiratory abnormalit y documented in this encounter Insurance Payer Benefit Plan / Subscriber ID Effective Dates Phone Addre ss Type Group [facility] [id number] 2019-Present Medicaid COMM PLAN - PLUS MANAGED MEDICAID documented as of this encounter
--- OUTSIDE RECORDS SUMMARY | 2020-01-15 01:03 | XMS REPORT | Summary of Care ---
:1975 Author Organization [facility] - [facility] Address [address] [place] [address] Care Team Providers Name Role Phone CalMarizolh Jed Primary Care Provider Reason for Referral (Routine) Status Reason Specialty Diagnoses / Referred By Referred To Procedures Contact Contact Authorized Cardiology Diagnoses Atypical chest pain De Leon Sendtequila Procedures ECHO ROUTINE W/DOPPLER COLOR Preferred Location: [facility] MD Sheyla [address] [place] [address] Reason for Visit Reason Comments New Patient Establish Care Ekg Done today in office Encounter Details Date Type Department Care Team Description 12/13/2019 Office Visit [facility] De LeonImani aranda Atypical ches t pain (Primary Dx); Cardiology- Mirella Carrion MD Palpitations; [address] Hyperthyroidism; Drive, [address] [address] OROPEZA (dyspnea on exertion) [place] [phone] Allergies Active Allergy Reactions [...] Leon MD - 12/13/2019 11:00 AM CDT [facility] Cardiology Consult Note Patient: Skye Figueroa Date [...] file Gets together: Not on file Attends yazidi service: Not on file Active member of [...] pain ECHO ROUTINE W/DOPPLER COLOR Preferred Location: [facility] DISCONTINUED: propranoloL 20 mg tablet 2. [...] Procedures ECHO ROUTINE W/DOPPLER COLOR Preferred Location: [facility] Requested Prescriptions No prescriptions requested or [...] in the answers given. We reviewed the [place] [employer] recommendations for reduction of overall [...] feel free to call our office at [phone]. I would be happy to be of further assistance for Skye Figueroa wellbeing. Rommel De Leno MD Business Information Analyst, Division of Cardiology [facility] documented in this encounter Plan of Treatment Date Type Specialty Care Team Description 12/18/2019 Laboratory Only Cardiology Pc, Adc Echo Room 1 - 12/18/2019 Office Visit Surgery Angelina Quinones MD [address] [facility] [address] [place], [place] [address] 01/29/2020 Office Visit Cardiology Imani De Leon MD [address] [place] [phone] Health Maintenance Due Date Last Done [...] Effective Dates Phone Addre ss Type Group [facility] [id number] 2019-Present Medicaid COMM PLAN - PLUS MANAGED MEDICAID documented as of this encounter
--- OUTSIDE RECORDS SUMMARY | 2020-01-15 01:04 | XMS REPORT ---
:1975 Author Organization [employer] Care Team Providers Name Role Phone Sunil Mccall Provider Role Unavailable Allergies, Adverse Reactions, Alerts Substance Reaction Event Type N.K.D.A. Info Not Available Non Drug Allergy Problems Problem Type Condition Code Onset Dates Condition Statu s Assessment Body mass index (BMI) 45.0-49.9, Z68.42 Active adult Assessment Morbid (severe) obesity due to E66.01 Active excess calories Assessment Thyroid receptor antibody positive R76.8 Active Assessment Hyperthyroidism E05.90 Active Assessment Abnormal mammogram of both breasts R92.8 Active Assessment Unspecified lump in the right N63.10 Active breast, unspecified quadrant Problem Essential hypertension I10 Activ e Problem Insomnia, unspecified type G47.00 A ctive Problem Allergic rhinitis, unspecified J30.9 Active seasonality, unspecified trigger Problem Abnormal laboratory test R89.9 Act vivi Problem Hyperthyroidism E05.90 Active Assessment Hemorrhoids, unspecified hemorrhoid K64.9 Active type Assessment Rectal pain K62.89 Active Problem Graves disease E05.00 Active Assessment Unspecified lump in the left N63.20 Active breast, unspecified quadrant Problem Abnormal mammogram of left breast R92.8 Active Problem Migraine without aura and without G43.009 Active status migrainosus, not intractable Problem Morbid (severe) obesity due to E66.01 Active excess calories Problem Body mass index (BMI) 45.0-49.9, Z68.42 Active adult Assessment Allergic rhinitis, unspecified J30.9 Active seasonality, unspecified trigger Assessment Insomnia, unspecified type G47.00 A ctive Assessment History of benign brain tumor Z86.011 Active Assessment 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 Assessment Neuropathic pain M79.2 Active Assessment Essential hypertension I10 Activ e Assessment Tachycardia R00.0 Active Assessment Migraine without aura and without G43.009 Active status migrainosus, not intractable Medications Medication Code Code Instructions Start End Status Dosage System Date Date [facility] 08544245181 5 MG Orally Active 1 tablet Once a day at bedtime as needed Sumatriptan Succinate ND 42481943618 50 MG Orally A ctive 1 tablet Once a day as needed Ondansetron ND 10338535088 4 MG Orally Nov 19, Active 1 ta blet three times a 2019 on the day tongue and allow to dissolve 30 minutes prior to meals Methimazole ND 96285333692 5 MG Orally Active 3 ta blet Once a day Montelukast Sodium ND 87521756332 10 MG Orally Acti ve 1 tablet Once a day Propranolol HCl ND 65766150577 20 MG Orally Sept Active 1 tablet three times a 2019 Lyrica ND 69929256501 75 MG Orally Active 1 capsu le twice a day Hydrochlorothiazide ND 67771951072 25 MG Orally Act vivi 1 tablet Once a day in the morning Results No Known Results Summary Purpose [employer]Clinical[employer] Submission
--- OUTSIDE RECORDS SUMMARY | 2020-01-15 01:04 | XMS REPORT | Summary of Care ---
:1975 Author Organization [facility] - Health Address [address] [place] [address] Care Team Providers Name Role Phone Sunil Mccall Primary Care Provider Encounter Details Date Type Department Care Team Description 12/13/2019 Orders Only [facility] Doctor Unassigned, No [address] [facility] [place] [address] [address] [place] [address] Allergies Active Allergy Reactions Severity Noted Date Comments Tramadol Hallucinations 11/15/2014 documented as of this encounter (statuses as of 12/27/2019) Medications Medication Sig Dispensed Refills Start Date End Date Status HYDROCHLOROTHIAZIDE ORAL Take 10 mg 0 Active by mouth daily. pregabalin (LYRICA ORAL) Take by 0 Active mouth daily. montelukast 10 mg tablet Take 10 mg 0 Active by mouth daily. methazolAMIDE 50 mg tablet Take 50 mg 0 Active by mouth daily. sumatriptan succ/naproxen Take by 0 Active sod (SUMATRIPTAN-NAPROXEN mouth as ORAL) needed. PROPRANOLOL 20 mg TAKE 1 270 tablet 2 12/14/2019 01/13/2020 Active tabletIndications: TABLET BY Atypical chest pain MOUTH 3 (THREE) TIMES DAILY FOR 30 DAYS. documented as of this encounter (statuses as of 12/27/2019) Active Problems Problem Noted Date Immune to varicella 09/30/2016 BMI 45.0-49.9, adult 09/29/2016 Excessive or frequent menstruation 09/22/2016 Knee pain, left 07/08/2015 documented as of this encounter (statuses as of 12/27/2019) Social History Tobacco Use Types Packs/Day Years [...] Treatment Date Type Specialty Care Team Description 01/01/2020 Office Visit Surgery Angelina Quinones MD [address] [facility] [address] [place] [address] [phone] 01/29/2020 Office Visit Cardiology Imani De Leon MD [address] [facility] [address] [place], [place] [phone] Health Maintenance Due Date Last Done [...] Name Priority Date/Time Associated Diagnosis Comme nts AUTHORIZATION TO RELEASE Routine 12/13/2019 12:01 AM [facility] TO [facility] CDT documented in this encounter Results Not on filedocumented in this encounter Insurance Payer Benefit Plan / Subscriber ID Effective Dates Phone Addre ss Type Group [facility] STAR [id number] 2019-Present Medicaid COMM PLAN - PLUS MANAGED MEDICAID documented as of this encounter
--- OUTSIDE RECORDS SUMMARY | 2020-01-15 01:04 | XMS REPORT | Summary of Care ---
:1975 Author Organization [facility] - [facility] Address [address] [place] [id number] Care Team Providers Name Role Phone Sunil Mccall Jed Primary Care Provider Reason for Visit (Routine) Status Reason Specialty Diagnoses / Procedures Referred By C ontact Referred To Contact Closed Cardiology Diagnoses Atypical chest pain Imani Martino Procedures ECHO ROUTINE W/DOPPLER COLOR Preferred Location: [facility] Sheyla [address] [address] Phone: Encounter Details Date Type Department Care Team Description 12/18/2019 Laboratory Only [facility] Imani Martino MD [address] [facility] [address] [place] [address] [place] [phone] Atypical chest pain Cardiology- [facility] [address] [place] [address], [address] [address] Allergies Active Allergy Reactions Severity Noted Date Comments Tramadol Hallucinations 11/15/2014 documented as of this encounter (statuses as of 12/18/2019) Medications Medication Sig Dispensed Refills Start Date [...] 3 (THREE) TIMES DAILY FOR 30 DAYS. Hospital, Clinic, or Other Ordered Dose Route Frequency Start Date End Date Status Facility Administered Medication sulfur hexafluoride 5 mL IV ONCE 12/18/2019 0 Ended microsphr (LUMASON) injection 5 mL documented as of this encounter (statuses as of 12/18/2019) Active Problems Problem Noted Date Immune to varicella 09/30/2016 BMI 45.0-49.9, adult 09/29/2016 Excessive or frequent menstruation 09/22/2016 Knee pain, left 07/08/2015 documented as of this encounter (statuses as of 12/18/2019) Social History Tobacco Use Types Packs/Day Years [...] Sign Reading Time Taken Comments Blood Pressure 117/70 12/18/2019 10:10 AM CDT Pulse 66 12/18/2019 10:10 AM CDT Temperature - - Respiratory Rate - - Oxygen Saturation - - Inhaled Oxygen Concentration - - Weight 122.9 kg (271 lb) 12/18/2019 10:10 AM CDT Height 162.6 cm (5' 4") 12/18/2019 10:10 AM CDT Body Mass Index 46.52 12/18/2019 10:10 AM CDT documented in this encounter Plan of Treatment Date Type Specialty Care Team Description 01/01/2020 Office Visit Surgery Angelina Quinones MD [address] [facility] [address] [place] [address] [phone] 01/29/2020 Office Visit Cardiology Imani Martino MD [address] [place] [address] [place] [phone] Health Maintenance Due Date Last Done [...] Other chest pain documented in this encounter Administered Medications Medication Order MAR Action Action Date Dose Rate Site sulfur hexafluoride microsphr Given 12/18/2019 10:41 AM CDT 5 mL (LUMASON) injection 5 mL 5 mL, Intravenous, ONCE, 1 dose, 12/18/19 at 1045, Routine, 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
--- OUTSIDE RECORDS SUMMARY | 2020-01-15 01:04 | XMS REPORT ---
[...] index (BMI) 45.0-49.9, Z68.42 Active adult Medications No Known Medications Results No Known Results Summary Purpose eClinicalWorks Submission
--- OUTSIDE RECORDS SUMMARY | 2020-01-15 01:05 | XMS REPORT ---
:[address] [facility] Address [address] Cardenas, Ar[address]. [address] [place] [address] Care Team Providers Name Role Phone Sunil Mccall Unavailable [phone] PROBLEMS Type Condition ICD9-CM [id number] Onset Condition SNOMED Code Notes Code Code Dates Status Problem Allergic rhinitis, J30.9 Active 36567797 unspecified seasonality, unspecified trigger Problem Insomnia, G47.00 Active 346551174 unspecified type Problem Migraine without G43.009 Active 708354152 aura and without status migrainosus, not intractable Problem Abnormal R89.9 Active 400933874 laboratory test Problem Essential I10 Active 57283681 hypertension Problem Graves disease E05.00 Active 418256120 Problem Abnormal mammogram R92.8 Active 960686546 of left breast Problem Body mass index Z68.42 Active 603747842 (BMI) 45.0-49.9, adult Problem Morbid (severe) E66.01 Active 00462538279117 obesity due to excess calories Problem Hyperthyroidism E05.90 Active 03602453 ALLERGIES No Known Allergies ENCOUNTERS from 1975 to 2020-01-08 Encounter Location Date Provider Diagnosis [facility] [place] [address], Sunil [place] [address]th[address] o[address] [place], [place] [address] test R89.9 IMMUNIZATIONS No Information SOCIAL HISTORY Tobacco Use: Social History Observation Description Date Details (start date - stop date) Never Smoker Sex Assigned At : Social History Observation Description Sex Assigned At Unknown PHQ9 Question Answer Notes Little interest or pleasure in doing things Several days Feeling down, depressed, or hopeless Several days Trouble falling or staying asleep or sleeping too much Sever al days Feeling tired or having little energy Several days Poor appetite or overeating Several days Feeling bad about yourself, or that you are a failure, or mendez ve Not at all let yourself or your family down Trouble concentrating on things, such as reading the newspap er Not at all or watching television Moving or speaking so slowly that other people could have No t at all noticed; or the opposite, being so fidgety or restless that you have been moving around a lot more than usual Total Score 5 Interpretation Mild Depression Thoughts that you would be better off or of hurting Not at all yourself in some way Alcohol Screen Question Answer Notes Did you have a drink containing alcohol in the past year? No Points 0 Interpretation Negative Tobacco Use/Smoking Question Answer Notes Are you a never smoker REASON FOR REFERRAL No Information VITAL SIGNS No information MEDICATIONS Medication SIG (Take, Route, Frequency, Start Date End Date Status Duration) Lyrica 75 MG 1 capsule Orally twice a day Active for 90 days Methimazole 5 MG 3 tablet Orally Once a day Active for 90 days Montelukast Sodium 10 MG 1 tablet Orally Once a day Active for 90 days Ondansetron 4 MG 1 tablet on the tongue and Nov, Active allow to dissolve 30 minutes prior to meals Orally three times a day for 5 days Sumatriptan Succinate 50 MG 1 tablet as needed Orally Active Once a day for 30 days Hydrochlorothiazide 25 MG 1 tablet in the morning Active Orally Once a day for 90 days Ambien 5 MG 1 tablet at bedtime as Activ e needed Orally Once a day for 30 days Propranolol HCl 20 MG 1 tablet Orally three times Dec, Active a day for 90 days PROCEDURES No Information RESULTS No Results REASON FOR VISIT Lab Result Request MEDICAL (GENERAL) HISTORY Type Description Date Medical History allergies Medical History memory problems Medical History swelling Surgical History brain tumor 1977 Surgical History lazy eye 1977 Surgical History appendix removed 1997 Surgical History gallbladder 2005 Surgical History brain stunt replaced 2010 Goals Section No Information Health Concerns No Information MEDICAL EQUIPMENT No Information MENTAL STATUS No Information FUNCTIONAL STATUS No Information ASSESSMENTS Encounter Date Diagnosis Notes Jan, Abnormal laboratory test (ICD-10 - R89.9 ) Jan, Hyperthyroidism (ICD-10 - E05.90) PLAN OF TREATMENT Medication Medication Name Sig Start Date Stop Date Lyrica 75 MG 1 capsule Orally twice a day for 90 days Hydrochlorothiazide 25 MG 1 tablet in the morning Orally Once a day for 90 days Ambien 5 MG 1 tablet at bedtime as needed Orally Once a day for 30 days Sumatriptan Succinate 50 MG 1 tablet as needed Orally Once a day for 30 days Methimazole 5 MG 3 tablet Orally Once a day for 90 days Montelukast Sodium 10 MG 1 tablet Orally Once a day for 90 days Propranolol HCl 20 MG 1 tablet Orally three times a day Dec, for 90 days Treatment Notes Test Name Order Date TSH+T3+Free T4+T3 Free 2020-01-08 Next Appt Details Provider Name:[facility], 2020-03-20 1 1:30:00 AM, [address], [address], [place], [address], Insurance Providers Payer Name Payer Payer Insured Patient Coverage Coverage End Address Phone Name Relationship to Start Date Shane e Insured [employer] [phone] Kaleb Figueroa [employer] [id number] [facility] [address] [facility] [address]
--- OUTSIDE RECORDS SUMMARY | 2020-01-15 01:05 | XMS REPORT | Summary of Care ---
:1975 Author Organization [facility] - [facility] Address [address] [place] [id number] Care Team Providers Name Role Phone Sunil Mccall Primary Care Provider Reason for Visit Reason Comments Follow-up fissure follow up Encounter Details Date Type Department Care Team Description 01/03/2020 Office Visit [facility] General Angelina Quinones Ana l fissure (Primary Dx); Surgery- [place] Anal itching; [address] [place] [address] [address] [facility] Anal or rectal pain [address] [place], [place] Arash [address] [place], [place] [phone] Allergies Active Allergy Reactions Severity Noted Date Comments Tramadol Hallucinations 11/15/2014 documented as of this encounter (statuses as of 01/03/2020) Medications Medication Sig Dispensed Refills Start Date [...] as of this encounter (statuses as of 01/03/2020) Active Problems Problem Noted Date Immune to varicella 09/30/2016 BMI 45.0-49.9, adult 09/29/2016 Excessive or frequent menstruation 09/22/2016 Knee pain, left 07/08/2015 documented as of this encounter (statuses as of 01/03/2020) Social History Tobacco Use Types Packs/Day Years [...] Sign Reading Time Taken Comments Blood Pressure 133/87 01/03/2020 11:41 AM CDT Pulse 64 01/03/2020 11:41 AM CDT Temperature 36.7 C (98.1 F) 01/03/2020 11:41 AM CDT Respiratory Rate - - Oxygen Saturation 97% 01/03/2020 11:41 AM CDT Inhaled Oxygen Concentration - - Weight 127 kg (280 lb) 01/03/2020 11:41 AM CDT Height 162.6 cm (5' 4") 01/03/2020 11:41 AM CDT Body Mass Index 48.06 01/03/2020 11:41 AM CDT documented in this encounter Progress Notes Angelina Quinones MD - 01/03/2020 11:15 AM CDT GENERAL SURGERY CLINIC NOTE Reason for Visit / Chief Complaint: Perianal itching History of Present Illness: Skye Figueroa is a 44 year old female with PMHx as below who presents for evaluation of perianal itching. Approximately 3 weeks ago she was seen at an outside ED for perianal itching after failed outpatient management of her symptoms with Preparation H. She was given a "shot" and discharged with a diagnosis of "hemorrhoids". She states the itching resolved until a few days ago. She states soaking in a bath helps control the itching. She has a BM daily. She denies diarrhea, constipation, straining, rectal bleeding. She does report rectal "discomfort" after defecation. She has had 3 children. She denies abnormal PAP smears or history of HPV. She denies anal intercourse. She does not have a family history of colon or rectal cancer. Patient has not had prior endoscopy. 01/03/2020 Interval follow up: The patient is doing well and has no further anal pain or itching. She denies rectal bleeding. Her BM's are soft, she takes a stool softener if she feels she is getting constipated. 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 METHAZOLAMIDE 50 MG TABLET Take 50 mg by mouth daily. MONTELUKAST 10 MG TABLET Take 10 mg by mouth daily. PREGABALIN (LYRICA ORAL) Take by mouth daily. PROPRANOLOL 20 MG TABLET TAKE 1 TABLET BY MOUTH 3 (THREE) TIMES DAILY FOR 30 DAYS. SUMATRIPTAN SUCC/NAPROXEN SOD (SUMATRIPTAN-NAPROXEN ORAL) Take by mouth as needed. START taking Modified Medications as Prescribed No medications on file STOP taking these medications No medications on file Current Outpatient Medications Medication Sig Dispense Refill PROPRANOLOL 20 mg tablet TAKE 1 TABLET BY MOUTH 3 (THREE) TIMES DAILY FOR 30 DAYS. 270 tablet 2 methazolAMIDE 50 mg tablet Take 50 mg by mouth daily. montelukast 10 mg tablet Take 10 mg by mouth daily. pregabalin (LYRICA ORAL) Take by mouth daily. HYDROCHLOROTHIAZIDE ORAL Take 10 mg by mouth daily. sumatriptan succ/naproxen sod (SUMATRIPTAN-NAPROXEN ORAL) Take by mouth as needed. No current facility-administered medications for this visit. Family History: Family History Problem Relation Age of Onset Cancer Mother Diabetes Father Diabetes Maternal Grandmother Heart Maternal Grandmother Social History: Social History Socioeconomic History Marital status: Single [...] file Gets together: Not on file Attends restoration service: Not on file Active member of [...] file Social History Narrative Not on file Review of Systems: A 14 point ROS was obtained, only positive responses are in BOLD Constitutional: Fever, chills, loss of appetite, fatigue, unexplained weight loss, unexplained weight gain, weakness Head/Ears/Nose/Mouth/Throat: Head: Headache, head injury, neck pain, neck stiffness Ears: Ear discharge, hearing loss, ear pain, tinnitus Nose: Nose bleeds, sinus congestion, runny nose, postnasal drip, sneezing, sinus pressure Mouth: Dental problems, mouth sores, sore tongue, dry mouth Throat: Sore throat, trouble swallowing, voice change Eyes: Discharge, itching, pain, redness, pain, vision disturbance, blurred vision, vision loss, cataracts, glaucoma CV: Chest pain, palpitations, arrhythmias, dyspnea on exertion, othopnea, claudication, edema, coronary artery disease/history of [place] Respiratory: Cough, sputum production, hemoptysis, wheezing, shortness of breath, sleep apnea GI: Dysphagia, abdominal pain, abdominal distention, indigestion, nausea, vomiting, diarrhea, constipation, hematemesis, blood in stool or dark stool, rectal bleeding, rectal pain, jaundice : Frequency, urgency, pain or burning with urination, flank pain, hematuria, incontinence, change in urinary stream, discharge, bleeding, pelvic pain, irregular menses Musculoskeletal: Muscle pain, joint pain, joint swelling, back pain, stiffness, weakness, limitationof motion, arthritis, trauma Integumentary/Breast: Integumentary: Rash, itching, pigmented lesions, lumps, tenderness, swelling, wound Breast: Pain, lumps, nipple discharge, skin changes Neurological: Weakness, sensory changes, syncope, seizures, headache, numbness, tingling, tremor, trauma Hematologic/Lymphatic: Hematologic: Bleeding tendency, easy bruising, history of blood clots, anticoagulation/antiplatelet therapy Lymphatic: Lymphadenopathy Endocrine: Polyuria, polydipsia, polyphagia, heat or cold intolerance, hair loss, appetite changes Allergic/Immunologic: Allergic: Allergic reactions Immunologic: Recurrent infections Psychiatric: Agitation, confusion, decreased concentration, hallucinations, anxiety, self-injury, sleep disturbance, suicidal ideation Physical Exam: BP 133/87 (BP Location: Left arm, Patient Position: Sitting, BP CUFF SIZE: Adult Medium) | Pulse 64 | Temp 36.7 C (98.1 F) (Temporal Artery) | Ht 1.626 m (5' 4") | Wt 127 kg (280 lb) | SpO2 97% | BMI 48.06 kg/m Constitutional: Awake, alert, oriented, in no acute distress Head: Normocephalic, atraumatic Eyes: Extraocular movements grossly intact, pupils equal and reactive to light and accomodation, anicteric sclerae Ears: Normal external exam Nose: Normal external exam Mouth: Moist mucous membranes Neck: Supple, no jugular venous distention Respiratory: No respiratory distress GI: Soft, nontender, non-distended Rectal: Normal sphincter tone, no tenderness with KAYDEN, no masses, no gross blood, anal skin tags Extremities: No clubbing, cyanosis, or edema Musculoskeletal: Normal tone and strength, normal range of motion Neurologic: CN II through XII grossly intact, no focal deficits Skin: Warm and dry, capillary refill <2 seconds, no jaundice, rashes, lesions, or erythema Hematologic/lymphatic: No inguinal lymphadenopathy Psychiatric: Appropriate mood and affect, no obvious deficits of insight or judgment Assessment: Skye Figueroa is a 44 year old female with resolved perianal itching, and discomfort after BM's and healed anal fissure. Plan: 1. RTC as needed Angelina Quinones M.D. 01/03/2020 13:20 Quintin Chaparro/01/2020 11:15 AM CDT GENERAL SURGERY CLINIC NOTE Reason for Visit / Chief Complaint: 6 week follow up History of Present Illness: Skye Figueroa is a 44 year old female with PMHx as below who presents for 6 week follow up of anal fissure. She reports feeling very well and is no longer in pain. She denies nausea, vomiting, diarrhea, constipation, melena, hematochezia, and changes in bowel habit or alfonso cterization. 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 METHAZOLAMIDE 50 MG TABLET Take 50 mg by mouth daily. MONTELUKAST 10 MG TABLET Take 10 mg by mouth daily. PREGABALIN (LYRICA ORAL) Take by mouth daily. PROPRANOLOL 20 MG TABLET TAKE 1 TABLET BY MOUTH 3 (THREE) TIMES DAILY FOR 30 DAYS. SUMATRIPTAN SUCC/NAPROXEN SOD (SUMATRIPTAN-NAPROXEN ORAL) Take by mouth as needed. START taking Modified Medications as Prescribed No medications on file STOP taking these medications No medications on file Current Outpatient Medications Medication Sig Dispense Refill PROPRANOLOL 20 mg tablet TAKE 1 TABLET BY MOUTH 3 (THREE) TIMES DAILY FOR 30 DAYS. 270 tablet 2 methazolAMIDE 50 mg tablet Take 50 mg by mouth daily. montelukast 10 mg tablet Take 10 mg by mouth daily. pregabalin (LYRICA ORAL) Take by mouth daily. HYDROCHLOROTHIAZIDE ORAL Take 10 mg by mouth daily. sumatriptan succ/naproxen sod (SUMATRIPTAN-NAPROXEN ORAL) Take by mouth as needed. No current facility-administered medications for this visit. Family History: Family History Problem Relation Age of Onset Cancer Mother Diabetes Father Diabetes Maternal Grandmother Heart Maternal Grandmother Social History: Social History Socioeconomic History Marital status: Single [...] file Gets together: Not on file Attends restoration service: Not on file Active member of [...] file Social History Narrative Not on file Review of Systems (BOLDED if positive. Otherwise negative.) General: weight changes, fatigue, fever Eyes: corrective lenses, pain, blurred vision ENT: hearing problems, earaches, allergies, nose bleeds Skin: rashes, lumps Respiratory: cough, wheeze, shortness of breath Cardiac: chest discomfort, palpitations Gastrointestinal: swallowing problems, nausea/vomiting, blood in stool, abdominal pain Musculoskeletal: muscle cramps, back pain, joint pain, weakness, tingling, pain in feet Immunologic: food allergies, recurrent infections Urinary: increased frequency, burning, urinating at night, incontinence, blood in urine Psychiatric: anxiety, depression Endocrine: thyroid trouble, diabetes Neurologic: fainting, seizures, loss of memory, headaches, numbness, stroke Hematologic: anemia, bleeding problems, transfusion reaction Physical Exam: BP 133/87 (BP Location: Left arm, Patient Position: Sitting, BP CUFF SIZE: Adult Medium) | Pulse 64 | Temp 36.7 C (98.1 F) (Temporal Artery) | Ht 5' 4" (1.626 m) | Wt 280 lb (127 kg) | SpO2 97% | BMI 48.06 kg/m General: alert and oriented in no apparent distress Head: normocephalic, atraumatic Eyes: extraocular movements intact; no scleral icterus ENT: no rhinorrhea, moist mucus membranes Neck: supple, trachea midline CV: hemodynamically stable Resp: unlabored, no increased work of breathing, equal bilateral chest rise Gi: abdomen soft, nondistended, no tenderness to palpation, no peritonitis Extremities/Musculoskeletal: moves extremities well, no edema or cyanosis Skin: skin color, texture, and turgor normal; no rashes or lesions Neuro: unremarkable without focal findings Psych: normal mood and affect; judgement intact : skin tag on anterior anus, mild tenderness on anal penetration, rectal tone normal, stool in rectal vault, no palpable masses or strictures, no visible anal fissure, no blood on glove. Assessment: Skye Figueroa is a 44 year old female presenting for 6 week follow up of anal fissure. No longer in pain. Plan: 1. RTC as needed. 2. Discussed lifestyle modifications including stool softeners, and increased fiber and water intake. 3. May continue to use topical diltiazem PRN. Quintin Root, MS3 documented in this encounter Plan of Treatment Date Type Specialty Care Team Description 01/29/2020 Office Visit Cardiology Imani De Leon MD [address] [place] [phone] Health Maintenance Due Date Last Done [...] filedocumented in this encounter Visit Diagnoses Diagnosis Anal fissure - Primary Anal itching Pruritus ani Anal or rectal pain documented in this encounter Insurance Payer Benefit Plan / Subscriber ID Effective Dates Phone Addre ss Type Group [facility] [id number] 2019-Present Medicaid COMM PLAN - PLUS MANAGED MEDICAID documented as of this encounter
--- OUTSIDE RECORDS SUMMARY | 2020-01-15 01:05 | XMS REPORT | Summary of Care ---
:1975 Author Organization [facility] - [facility] Address [address] [place] [id number] Care Team Providers Name Role Phone Sunil Mccall Primary Care Provider Reason for Visit Reason Comments Follow-up fissure follow up Encounter Details Date Type Department Care Team Description 01/03/2020 Office Visit [facility] General Angelina Quinones Ana l fissure (Primary Dx); Surgery- [place] Anal itching; [address] [place] [address] [address] [facility] Anal or rectal pain [address] [place], [place] [id number] [place], [place] [phone] Allergies Active Allergy Reactions Severity Noted Date [...] "lazy eye" KNEE ARTHROSCOPY Left 11/2014 SURGERY,BRAIN/SPINE,W/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 Allergies: Allergies Allergen Reactions Tramadol Hallucinations [...] file Gets together: Not on file Attends cheondoism service: Not on file Active member of [...] othopnea, claudication, edema, coronary artery disease/history of [place] Respiratory: Cough, sputum production, hemoptysis, wheezing, shortness [...] file Gets together: Not on file Attends cheondoism service: Not on file Active member of [...] Imani De Leon MD [address] [place] [phone] Health Maintenance Due Date Last Done [...] Effective Dates Phone Addre ss Type Group [facility] [id number] 2019-Present Medicaid COMM PLAN - PLUS MANAGED MEDICAID documented as of this encounter
--- OUTSIDE RECORDS SUMMARY | 2020-01-15 01:06 | XMS REPORT | Summary of Care ---
:1975 Author Organization [facility] - Health Address [address] [place] [address] Care Team Providers Name Role Phone Sunil Mccall Primary Care Provider Encounter Details Date Type Department Care Team Description 01/07/2020 Orders Only [facility] Doctor Unassigned, No [address] [facility] [place] [address] [address] [place] [address] Allergies Active Allergy Reactions Severity Noted Date Comments Tramadol Hallucinations 11/15/2014 documented as of this encounter (statuses as of 01/10/2020) Medications Medication Sig Dispensed Refills Start Date [...] as of this encounter (statuses as of 01/10/2020) Active Problems Problem Noted Date Immune to varicella 09/30/2016 BMI 45.0-49.9, adult 09/29/2016 Excessive or frequent menstruation 09/22/2016 Knee pain, left 07/08/2015 documented as of this encounter (statuses as of 01/10/2020) Social History Tobacco Use Types Packs/Day Years [...] Leon MD [address] [place] [address] [place] [address] [phone] Health Maintenance Due Date Last Done Comments DTaP,Tdap,and Td Vaccines (1 - 1994 Tdap) Breast Cancer Screening 2015 (MAMMOGRAM) PAP SMEAR 09/30/2019 09/29/2016 INFLUENZA VACCINE (#1) 2019 Depression Screening 12/12/2020 12/13/2019 Colorectal Cancer Screening 2025 PNEUMOCOCCAL 0-64 YEARS COMBINED Aged Out No longer eligible based on SERIES patient's age to complete this topic documented as of this encounter Procedures Procedure Name Priority Date/Time Associated Diagnosis Comme nts EXTERNAL PROVIDER - ADC Routine 01/07/2020 12:01 AM CARDIOLOGY CDT documented in this encounter Results Not on filedocumented in this encounter Insurance Payer Benefit Plan / Subscriber ID Effective Dates Phone Addre ss Type Group [facility] [id number] 2019-Present Medicaid COMM PLAN - PLUS MANAGED MEDICAID documented as of this encounter
[2020-01-15 01:32] LABS: Absolute Lymphocytes (CBC) 2.4 K/uL (0.7-4.9); Basophils % 0.9 % (0-1.3); Hematocrit 42.7 % (36.0-45.0); Lymphocytes % 23.7 % (15.3-44.8); MPV 7.3 fL (7.6-11.3); RBC Red Blood Cell Count 5.17 M/uL (3.86-4.86)
[2020-01-15 01:34] LABS: Protime INR 1.02
[2020-01-15 01:50] LABS: ALT/SGPT 26 U/L (12-78); AST/SGOT 12 U/L (15-37); Albumin 3.6 g/dL (3.4-5.0); Alkaline Phosphatase 165 U/L (45-117); BUN Blood Urea Nitrogen 11 mg/dL (7-18); Bicarbonate 30 mmol/L (21-32); Bilirubin Direct < 0.1 mg/dL (0-0.2); Bilirubin Total 0.3 mg/dL (0.2-1.0); Glucose Level 114 mg/dL (74-106); Magnesium 2.2 mg/dL (1.8-2.4); NT PRO-BNP 27 pg/mL (<125); Potassium 3.3 mmol/L (3.5-5.1); Protein, Total 7.5 g/dL (6.4-8.2); Sodium Level 138 mmol/L (136-145); Troponin (Emerg Dept Use Only) < 0.02 ng/mL (0.0-0.045)
[2020-01-15] MEDS ORDERED: MORPHINE 4 MG/ML SYR ONE (02:36)
[2020-01-15] MEDS ORDERED: ONDANSETRON 4 MG/2 ML VIAL ONE (02:36)
--- NOTE | 2020-01-15 05:46 | EDPHYS ---
Physician Documentation [facility] Name: Skye Figueroa Age: 45 yrs Sex: Female : 1975 Arrival Date: 01/15/2020 Time: 00:57 Bed 13 Private MD: Cal [facility] ED Physician Alexander Amezcua HPI: 01/14 03:33 This 45 yrs old Female presents to ER via Ambulatory with complaints of Chest mh7 Pain, high hr. 03:34 The patient or guardian reports chest pain that is located primarily in the substernal mh7 area. 03:34 Onset: yesterday. The pain does not radiate. Associated signs and symptoms: Pertinent mh7 positives: palpitations, Pertinent negatives: abdominal pain, cough, diaphoresis, dizziness, headache, lower extremity pain, lower extremity swelling, lightheadedness, nausea, near syncope, recent travel, shortness of breath, syncope, vomiting. The chest pain is described as sharp. Duration: The patient or guardian reports multiple episodes, that are intermittent, that wax and wane. Modifying factors: The symptoms are alleviated by nothing. the symptoms are aggravated by nothing. Severity of pain: At its worst the pain was moderate yesterday, in the emergency department the pain has improved moderately. The patient has experienced similar episodes in the past, multiple times. Historical: - Allergies: 01:17 Naproxen; fc 01:17 tramadol; fc - Home Meds: 01:17 propranolol 20 mg Oral tab 1 tab 3 times per day [Active]; Lyrica 75 mg Oral 1 cap 2 fc times per day for Fibromyalgia [Active]; methimazole 10 mg Oral tab 1 tab once daily [Active]; hydrochlorothiazide 25 mg oral tab 1 tab once daily [Active]; Singulair 10 mg Oral tab 1 tab once daily [Active]; - PMHx: 01:17 graves disease; BRAIN TUMOR; Hydrocephalus; Migraines; Seizures; fc - PSHx: 01:17 Brain Tumor; Brain Shunt; Appendectomy; Cholecystectomy; fc - Immunization history:: Last tetanus immunization: up to date Flu vaccine is not up to date. - Social history:: Smoking status: Patient denies any tobacco usage or history of. Patient/guardian denies using alcohol, street drugs. ROS: 03:34 Constitutional: Negative for fever, chills, and weight loss, Eyes: Negative for injury, mh7 pain, redness, and discharge, ENT: Negative for injury, pain, and discharge, Neck: Negative for injury, pain, and swelling, Respiratory: Negative for shortness of breath, cough, wheezing, and pleuritic chest pain, Abdomen/GI: Negative for abdominal pain, nausea, vomiting, diarrhea, and constipation, Back: Negative for injury and pain, : Negative for injury, bleeding, discharge, and swelling, MS/Extremity: Negative for injury and deformity, Skin: Negative for injury, rash, and discoloration, Neuro: Negative for headache, weakness, numbness, tingling, and seizure, Psych: Negative for depression, anxiety, suicide ideation, homicidal ideation, and hallucinations, Allergy/Immunology: Negative for hives, rash, and allergies, Endocrine: Negative for neck swelling, polydipsia, polyuria, polyphagia, and marked weight changes, Hematologic/Lymphatic: Negative for swollen nodes, abnormal bleeding, and unusual bruising. Exam: 03:34 Constitutional: This is a well developed, well nourished patient who is awake, alert, mh7 and in no acute distress. Head/Face: Normocephalic, atraumatic. Eyes: Pupils equal round and reactive to light, extra-ocular motions intact. Lids and lashes normal. Conjunctiva and sclera are non-icteric and not injected. Cornea within normal limits. Periorbital areas with no swelling, redness, or edema. Chest/axilla: Normal chest wall appearance and motion. Nontender with no deformity. No lesions are appreciated. Cardiovascular: Regular rate and rhythm with a normal S1 and S2. No gallops, murmurs, or rubs. Normal PMI, no JVD. No pulse deficits. Respiratory: Lungs have equal breath sounds bilaterally, clear to auscultation and percussion. No rales, rhonchi or wheezes noted. No increased work of breathing, no retractions or nasal flaring. Abdomen/GI: Soft, non-tender, with normal bowel sounds. No distension or tympany. No guarding or rebound. No evidence of tenderness throughout. Back: No spinal tenderness. No costovertebral tenderness. Full range of motion. Skin: Warm, dry with normal turgor. Normal color with no rashes, no lesions, and no evidence of cellulitis. MS/ Extremity: Pulses equal, no cyanosis. Neurovascular intact. Full, normal range of motion. Neuro: Awake and alert, GCS 15, oriented to person, place, time, and situation. Cranial nerves II-XII grossly intact. Motor strength 5/5 in all extremities. Sensory grossly intact. Cerebellar exam normal. Normal gait. Psych: Awake, alert, with orientation to person, place and time. Behavior, mood, and affect are within normal limits. Vital Signs: 01:00 BP 138 / 93; Pulse 77; Resp 18; Temp 98.3(O); Pulse Ox 99% on R/A; Weight 122.47 kg fc (R); Height 5 ft. 4 in. (162.56 cm) (R); Pain 5/10; 01:05 BP 138 / 93; Pulse 83; Resp 20; Pulse Ox 98% ; Pain 5/10; bb3 02:02 BP 123 / 64; Pulse 70; Resp 17; Pulse Ox 96% ; Pain 6/10; bb3 02:40 BP 116 / 61; Pulse 74; Resp 19; Pulse Ox 99% ; Pain 6/10; bb3 03:57 BP 104 / 53; Pulse 74; Resp 18; Pulse Ox 95% ; Pain 0/10; bb3 05:00 BP 100 / 53; Pulse 62; Resp 15; Pulse Ox 96% ; Pain 0/10; bb3 01:00 Body Mass Index 46.34 (122.47 kg, 162.56 cm) MDM: 01:34 Patient medically screened. [facility] 05:42 Differential diagnosis: acute myocardial infarction, acute pericarditis, anxiety, [facility] coronary artery disease chest wall pain, congestive heart failure pleurisy, pneumonia, pneumothorax. HEART Score: History: Slightly Suspicious (0), ECG: Normal (0), Age: < or = 45 years (0), Risk Factors: No Risk Factors Known (0), Troponin: < or = 1 x Normal Limit (0), Total Score = 0. Data reviewed: vital signs, nurses notes, old medical records, lab test result(s), cardiac enzymes, CBC, electrolytes, urinalysis. Data interpreted: Pulse oximetry: on room air is 96 %. Interpretation: normal. Counseling: I had a detailed discussion with the patient and/or guardian regarding: the historical points, exam findings, and any diagnostic results supporting the discharge/admit diagnosis, lab results, radiology results, the need for outpatient follow up, to return to the emergency department if symptoms worsen or persist or if there are any questions or concerns that arise at home. Response to treatment: the patient's symptoms have resolved after treatment, the patient's blood pressure is in an acceptable range, mental status has returned to baseline, the patient no longer shows bradycardia, the patient is not short of breath, the patient is not tachycardic, the patient's pain is gone, the patient's temperature has normalized. 01/14 01:05 Order name: Basic Metabolic Panel; Complete Time: 03:53 01/14 01:05 Order name: CBC with Diff; Complete Time: 03:53 01/14 01:05 Order name: LFT's; Complete Time: 03:53 01/14 01:05 Order name: Magnesium; Complete Time: 03:53 01/14 01:05 Order name: NT PRO-BNP; Complete Time: 03:53 01/14 01:05 Order name: PT-INR; Complete Time: 03:53 01/14 01:05 Order name: Troponin (emerg Dept Use Only); Complete Time: 03:53 01/14 01:05 Order name: XRAY Chest (1 view) 01/14 01:05 Order name: EKG; Complete Time: 01:06 01/14 01:05 Order name: Cardiac monitoring; Complete Time: : 01/14 01:05 Order name: EKG - Nurse/Tech; Complete Time: : 01/14 04:24 Order name: Troponin (emerg Dept Use Only); Complete Time: 05:39 01/14 01:05 Order name: IV Saline Lock; Complete Time: : 01/14 01:05 Order name: Labs collected and sent; Complete Time: : 01/14 01:05 Order name: O2 Per Protocol; Complete Time: : 01/14 01:05 Order name: O2 Sat Monitoring; Complete Time: 01:16 ea Administered Medications: 02:38 Drug: Zofran (Ondansetron) 4 mg Route: IVP; Site: right antecubital; bb3 06:12 Follow up: Response: No adverse reaction bb3 02:39 Drug: morphine 4 mg Route: IVP; Site: right antecubital; bb3 06:11 Follow up: Response: No adverse reaction; Marked relief of symptoms; Pain is decreased bb3 Disposition: 01/15/20 05:45 Discharged to Home. Impression: Chest pain, unspecified, Palpitations. - Condition is Stable. - Discharge Instructions: Nonspecific Chest Pain, Opry-ae-Cdtw, Palpitations, Hzus-bz-Ookg. - Medication Reconciliation Form, Thank You Letter, Antibiotic Education, Prescription Opioid Use form. - Follow up: Private Physician; When: 1 - 2 days; Reason: Worsening of condition, Recheck today's complaints, Continuance of care, Re-evaluation by your physician. - Problem is an acute exacerbation. - Symptoms have improved. Signatures: Dispatcher [employer] EDMS Patricia Swenson RN Di Braswell RN RN ea Borel, Brandy bb3 Alexander Amezcua MD MD mh7 Corrections: (The following items were deleted from the chart) 06:06 05:45 01/15/2020 05:45 Discharged to Home. Impression: Chest pain, unspecified; bb3 Palpitations. Condition is Stable. Forms are Medication Reconciliation Form, Thank You Letter, Antibiotic Education, Prescription Opioid Use. Follow up: Private Physician; When: 1 - 2 days; Reason: Worsening of condition, Recheck today's complaints, Continuance of care, Re-evaluation by your physician. Problem is an acute exacerbation. Symptoms have improved. mh7 06:10 06:06 01/15/2020 05:45 Discharged to Home. Impression: Chest pain, unspecified; bb3 Palpitations. Condition is Stable. Discharge Instructions: Nonspecific Chest Pain, Ozvs-nh-Jzmg, Palpitations, Vwpk-md-Ctyd. Forms are Medication Reconciliation Form, Thank You Letter, Antibiotic Education, Prescription Opioid Use. Follow up: Private Physician; When: 1 - 2 days; Reason: Worsening of condition, Recheck today's complaints, Continuance of care, Re-evaluation by your physician. Problem is an acute exacerbation. Symptoms have improved. bb3
--- NOTE | 2020-01-15 05:46 | ER ---
Nurse's Notes [facility] Name: Skye Figueroa Age: 45 yrs Sex: Female : 1975 Arrival Date: 01/15/2020 Time: 00:57 Bed 13 Private MD: Sunil Mccall Diagnosis: Chest pain, unspecified;Palpitations Presentation: 01/14 01:00 Chief complaint: Patient states: that she has been having issues all night with heart fc rate going up and down which is causing her to have chest pain. States that she called and spoke with [facility] from her Dr's office and was told to go to ER because things could go bad quickly due to her Grave's disease. Coronavirus screen: Client denies travel out of the [place] in the last 14 days. Client indicates they have traveled out of the [place] in the last 14 days. At this time, unable to obtain information related to travel outside the [place] Ebola Screen: Patient negative for fever greater than or equal to 101.5 degrees Fahrenheit, and additional compatible Ebola Virus Disease symptoms Patient denies exposure to infectious person. Patient denies travel to an Ebola-affected area in the 21 days before illness onset. Initial Sepsis Screen: Does the patient meet any 2 criteria? No. Patient's initial sepsis screen is negative. Does the patient have a suspected source of infection? No. Patient's initial sepsis screen is negative. Risk Assessment: Do you want to hurt yourself or someone else? Patient reports no desire to harm self or others. Onset of symptoms was January 14, 2020. 01:00 Method Of Arrival: Ambulatory fc 01:00 Acuity: NIDA 3 fc Triage Assessment: 06:00 General: Appears in no apparent distress. comfortable, Behavior is calm, cooperative. bb3 Pain: Denies pain. Historical: - Allergies: 01:17 Naproxen; fc 01:17 tramadol; fc - Home Meds: 01:17 propranolol 20 mg Oral tab 1 tab 3 times per day [Active]; Lyrica 75 mg Oral 1 cap 2 fc times per day for Fibromyalgia [Active]; methimazole 10 mg Oral tab 1 tab once daily [Active]; hydrochlorothiazide 25 mg oral tab 1 tab once daily [Active]; Singulair 10 mg Oral tab 1 tab once daily [Active]; - PMHx: 01:17 graves disease; BRAIN TUMOR; Hydrocephalus; Migraines; Seizures; fc - PSHx: 01:17 Brain Tumor; Brain Shunt; Appendectomy; Cholecystectomy; fc - Immunization history:: Last tetanus immunization: up to date Flu vaccine is not up to date. - Social history:: Smoking status: Patient denies any tobacco usage or history of. Patient/guardian denies using alcohol, street drugs. Screenin:00 Abuse screen: Denies threats or abuse. Denies injuries from another. Nutritional fc screening: No deficits noted. Tuberculosis screening: No symptoms or risk factors identified. Fall Risk None identified. Assessment: 01:29 Reassessment: No changes from previously documented assessment. Patient and/or family bb3 updated on plan of care and expected duration. Pain level reassessed. Patient is alert, oriented x 3, equal unlabored respirations, skin warm/dry/pink. General: Appears distressed, uncomfortable. Pain: Complains of pain in anterior aspect of left upper chest and mid-sternal area Pain radiates to left wrist Pain currently is 5 out of 10 on a pain scale. Quality of pain is described as heavy, pressure, Pain began 1 day ago. 02:01 Cardiovascular: Reports chest pain, fatigue, Chest pain quality is heaviness, pressure, bb3 is located in substernal area. 02:40 Reassessment: Patient and/or family updated on plan of care and expected duration. Pain bb3 level reassessed. Patient is alert, oriented x 3, equal unlabored respirations, skin warm/dry/pink. Pain: Pain currently is 6 out of 10 on a pain scale. 03:22 Reassessment: Patient appears in no apparent distress at this time. Patient and/or bb3 family updated on plan of care and expected duration. Pain level reassessed. Patient is alert, oriented x 3, equal unlabored respirations, skin warm/dry/pink. General: Appears in no apparent distress. comfortable. Pain: Pain currently is 3 out of 10 on a pain scale. 04:36 Reassessment: Patient appears in no apparent distress at this time. Patient and/or bb3 family updated on plan of care and expected duration. Pain level reassessed. Patient is alert, oriented x 3, equal unlabored respirations, skin warm/dry/pink. General: Appears comfortable. Pain: Denies pain. 05:37 Reassessment: Patient appears in no apparent distress at this time. No changes from bb3 previously documented assessment. Patient and/or family updated on plan of care and expected duration. Pain level reassessed. Patient is alert, oriented x 3, equal unlabored respirations, skin warm/dry/pink. General: Appears in no apparent distress. comfortable. Pain: Denies pain. Vital Signs: 01:00 BP 138 / 93; Pulse 77; Resp 18; Temp 98.3(O); Pulse Ox 99% on R/A; Weight 122.47 kg fc (R); Height 5 ft. 4 in. (162.56 cm) (R); Pain 5/10; 01:05 BP 138 / 93; Pulse 83; Resp 20; Pulse Ox 98% ; Pain 5/10; bb3 02:02 BP 123 / 64; Pulse 70; Resp 17; Pulse Ox 96% ; Pain 6/10; bb3 02:40 BP 116 / 61; Pulse 74; Resp 19; Pulse Ox 99% ; Pain 6/10; bb3 03:57 BP 104 / 53; Pulse 74; Resp 18; Pulse Ox 95% ; Pain 0/10; bb3 05:00 BP 100 / 53; Pulse 62; Resp 15; Pulse Ox 96% ; Pain 0/10; bb3 01:00 Body Mass Index 46.34 (122.47 kg, 162.56 cm) ED Course: 00:57 Patient arrived in ED. am2 00:58 Sunil Mccall, DO is Private Physician. am2 01:00 Arm band placed on Patient placed in an exam room, on a stretcher. 01:00 Patient has correct armband on for positive identification. Bed in low position. Call light in reach. Side rails up X 1. quality assurance monitor on. Pulse ox on. NIBP on. 01:00 No provider procedures requiring assistance completed. Patient maintains SpO2 saturation greater than 95% on room air. 01:13 Triage completed. 01:13 Alexander Amezcua MD is Attending Physician. 7 01:14 Inserted saline lock: 20 gauge in right antecubital area, using aseptic technique. ea Blood collected. 01:26 XRAY Chest (1 view) In Process Unspecified. EDMS 04:36 Troponin (emerg Dept Use Only) Sent. bb3 06:12 IV discontinued, intact, bleeding controlled, No redness/swelling at site. Pressure bb3 dressing applied. Administered Medications: 02:38 Drug: Zofran (Ondansetron) 4 mg Route: IVP; Site: right antecubital; bb3 06:12 Follow up: Response: No adverse reaction bb3 02:39 Drug: morphine 4 mg Route: IVP; Site: right antecubital; bb3 06:11 Follow up: Response: No adverse reaction; Marked relief of symptoms; Pain is decreased bb3 Outcome: 05:45 Discharge ordered by . 7 06:10 Patient left the ED. bb3 06:12 Discharged to home bb3 06:12 Condition: improved 06:12 Discharge instructions given to patient, Instructed on discharge instructions, follow up and referral plans. Demonstrated understanding of instructions, follow-up care, Prescriptions given X Signatures: Dispatcher [employer] EDMS Patricia Swenson RN RN fc Moreno, Amanda am2 Di Zafar RN Sanjuanita Rainey ea bb3 Alexander Amezcua MD MD 7 Corrections: (The following items were deleted from the chart) 06:11 06:10 General: Appears in no apparent distress. comfortable, Behavior is calm, bb3 cooperative, appropriate for age, bb3 06:11 06:10 Pain: Denies pain. bb3 bb3
[2020-01-15 06:39] VITALS: TEMP 98.3
[2020-01-15 06:47] VITALS: BP 100/53; O2SAT 96
--- NOTE | 2020-01-15 15:28 | RAD REPORT ---
EXAM DESCRIPTION: Chest Single View CLINICAL HISTORY: CHEST PAIN COMPARISON: None. FINDINGS: Single frontal radiograph view of the chest. Cardiomediastinal silhouette: Normal size and contour. Lungs: No consolidation, pneumothorax, or pleural effusion. Bones: No acute osseous abnormality. Right abdominal wall [employer]GER shunt tubing and abandoned PROPERTY CLAIMS [employer]GER shunt tubi ng tract. Leads overlie the chest. Upper abdomen: No abnormality identified. IMPRESSION: 1. No acute pulmonary process identified. Electronically signed by: Reece Cortes 01/15/2020 4:29 AM CDT Due to temporary technical issues with the PACS/Fluency reporting system, reports are being signed by the in house radiologist without review as a courtesy to ensure prompt reporting. The interpreting r adiologist is fully responsible for the content of the report.
--- NOTE | 2020-01-16 07:15 | EKG ---
Test Date: 2020-01-15 Test Time: 01:11:00 Store Promoter: DIAMANTE MEASUREMENT RESULTS: Intervals: Rate: 76 GA: 176 QRSD: 86 QT: 366 QTc: 411 Kingsley: P: 38 GA: 176 QRS: 21 T: 39 INTERPRETIVE STATEMENTS: Normal sinus rhythm Cannot rule out Anterior infarct, age undetermined Abnormal ECG Compared to ECG 12/10/2019 00:53:03 First degree AV block no longer present Myocardial infarct finding still present Electronically Signed On 01-16-20 07:13:35 CDT by Neel Sosa
== END 2020-01-15 06:10 | disposition home or self-care (01) ==
LOC: ER 00:55
DX: R00.2 Palpitations (principal); G40.909 Epilepsy, unspecified, not intractable, without status epilepticus; Z88.5 Allergy status to narcotic agent; Z88.6 Allergy status to analgesic agent; Z86.011 Personal history of benign neoplasm of the brain
CPT/HCPCS: 93005; 85025; 80048; 36415; 83735; 85610; 80076; 84484 ×2; 83880; 71045; 96375; 96374; 99285; J2405

== ENCOUNTER 2020-06-02 00:34 | Emergency (ER) | payer OTHER ==
--- OUTSIDE RECORDS SUMMARY | 2020-06-02 00:38 | XMS REPORT | Continuity of Care Document ---
:[address] [facility] t Address [address] Antoine. [address] [place] [address] Care Team Providers Name Role Phone Christiano Mccall DO Primary Care Physician Moises HAHN, K.H. Attending Clinician Doctor Unassigned, Name Attending Clinician Unavailable Ramses Cool MD Attending Clinician Scarlett Mccall Attending Clinician Unavailable Christiano Mccall DO Attending Clinician Bridgette Mccall MD Attending Clinician Unavailable Payers Payer Name Policy Type Policy Effective Date Expiration Date Sour ce Number MEDICAID - [id number] 2019 [facility] MEDICAID MGD 00:00:00 - [facility] STAR [id number] caid Contracted Problems This patient has no [...] Medication? Clinician (SIG) Name Name Propranolol Propranolol Yes Sunil [address] [facility] [...] Procedure Date / Time Performed Performing Clinician Sourc e NM THYROID UPTAKE AND 2019-11-08 12:32:00 Mccall, Sunil J[facility] Plan of Care Planned Activity Planned Date Details Comments Source Future Scheduled 2020-04-[address] [facility] - Test 00:00:00 (12+) [code = [facility] DEPRESSION SCREENING (12+)] Future Scheduled 2020-01-[address] [facility]00 (procedure) [code = [facility] [id number]] Future Scheduled 2019-12-[address] [facility] Test 00:00:00 (#1) [code = [facility] INFLUENZA VACCINE (#1)] Future Scheduled 1996-01-[address] [facility] 00:00:00 malignant neoplasm of [facility] cervix (procedure) [code = 524249911] Future Scheduled 1993 HEPATITIS C [facility]CRE[facility]ING [facility] 00:00:00 [code = HEPATITIS C [facility] SCREENING] Future Scheduled 1982 DTAP/TDAP/TD VACCINES [facility] Test 00:00:00 (1 - Tdap) [code = Medical C enter DTAP/TDAP/TD VACCINES (1 - Tdap)] Encounters Start End Encounter Admission Attending Care Care Encounter Source Date/Time Date/Time Type Type Clinicians Facility Department ID 2020-05-07 2020-05-07 Outpatient [facility] [id number] [facility] 2020-05-05 2020-05-05 [facility] [id number] 00:00:00 00:00:00 Sendtequila K.HDonya Vu [id number] [place] [id number] [facility] [id number] nal 059 [facility] 2020-05-02 2020-05-02 [facility] [id number] 08:58:15 23:59:00 Encounter [facility] SPECIAL[facility] [id number] CARE [id number] CENTER AT [id number] [address] 2020-05-02 2020-05-02 [facility] [id number] 08:32:07 08:57:00 Encounter Sendil [facility]. SPECIALTY [id number] CARE [id number] CENTER AT [id number] [facility] [address] [place] [address] 2020-05-02 2020-05-02 [facility] [id number] 08:31:50 08:31:50 Encounter Sendil [facility] SPECIALTY [id number] CARE [id number] CENTER AT [id number] [facility] [address] [place] [address] 2020-05-02 2020-05-02 [facility] [id number] 08:31:12 08:31:12 Encounter Sendil [facility] SPECIALTY [id number] CARE [id number] CENTER AT [id number] [facility] [address] [place] [address] 2020-04-16 2020-04-16 Outpatient [facility] [id number] [facility] 2020-04-11 2020-04-11 Orders Doctor LAUREN [id number] 00:00:00 00:00:00 Only Unassigned, NICHOLAS [id number] [place] [facility] 4.2.7.2.686 [id number] 2020-04-08 2020-04-08 Telephone De Leon [facility] [id number] 00:00:00 00:00:00 Imani Vu [id number] [place] 4.2.7.2.686 [facility] [id number] [facility], [id number] [facility] 2020-04-01 2020-04-01 Outpatient [facility] [id number] [facility] 2020-03-31 2020-03-31 Outpatient [facility] [id number] [facility] 2020-03-27 2020-03-27 Office [place], LO [id number] 13:04:09 13:34:09 Visit Pratibha Pearce AMBULATOR 350.1.13.21 Y 0.2.7.2.686 [id number] 2020-03-24 2020-03-24 Outpatient [facility] [id number] [facility] 2020-03-17 2020-03-17 Outpatient [facility] [id number] [facility] 2020-03-12 2020-03-12 Outpatient [facility] [id number] [facility] 2020-03-11 2020-03-11 Outpatient [facility] [id number] [facility] 2020-03-03 2020-03-03 Outpatient [facility] [id number] [facility] 2020-02-14 2020-02-14 Outpatient [facility] [id number] [facility] 2020-02-11 2020-02-11 Outpatient [facility] [id number] [facility] 2020-02-08 2020-02-08 Outpatient [facility] [id number] [facility] 2020-01-30 2020-01-30 Outpatient [facility] [id number] [facility] 2020-01-23 2020-01-23 Outpatient [facility] [id number] [facility] 2020-01-22 2020-01-22 Outpatient [facility] [id number] [facility] 2020-01-15 2020-01-15 Outpatient [facility] [id number] [facility] 2020-01-09 2020-01-09 Outpatient [facility] [id number] [facility] 2020-01-07 2020-01-07 Outpatient [facility] [id number] [facility] 2019-12-19 2019-12-19 [facility] [id number] [address] 16:30:00 16:30:00 t [employer] [facility] Medicine Outpati ent Clinics 2019-12-18 2019-12-18 [facility] [id number] 13:33:00 13:33:00 [employer] [facility] Clinics 2019-12-09 2019-12-09 [facility] [id number] 17:43:00 17:43:00 t [employer] - [employer] [facility] Outpati ent Clinics 2019-11-26 2019-11-26 [facility] [id number] 15:17:00 15:17:00 [employer] [facility] Outpati ent Clinics 2019-11-24 2019-11-24 [facility] [id number] 15:24:00 15:24:00 [employer] [facility] Outpati ent Clinics 2019-11-22 2019-11-22 [facility] [id number] 16:03:00 16:03:00 [employer] [facility] Outpati ent Clinics 2019-11-19 2019-11-19 [facility] [id number] 14:35:00 14:35:00 [employer] [facility] Outpati ent Clinics 2019-11-16 2019-11-16 [facility] [id number] 09:15:00 09:15:00 [employer] [facility] Medicine Outpati ent Clinics 2019-11-08 2019-11-08 [facility] [id number] 09:12:00 09:12:00 [employer] [facility] Outpati ent Clinics 2019-10-30 2019-10-30 [facility] [id number] 17:05:00 17:05:00 [employer] [facility] Outpat[facility] ent Clinics 2019-10-29 2019-10-29 [facility] [id number] 15:04:00 15:04:00 [employer] [facility] Outpati ent Clinics 2019-10-29 2019-10-29 [facility] [id number] 08:06:00 08:06:00 [facility] Clin[facility] 2019-10-22 2019-10-22 Outpatient Asher Saucedo [id number] 12:23:00 12:23:00 [facility] ent Clinics 2019-10-18 2019-10-18 Outpatient Asher Sterlingt [id number] 14:30:00 14:30:00 [facility] 2019-09-20 2019-09-20 Outpatient Asher Sterlingt [id number] 09:00:00 09:00:00 [facility] Results Test Description Test Time Test Comments Results Result Sourc e Comments THYROID IMAGING 2019-11-09 FINAL REPORT PATIENT W/ UPTAKE, 09:03:00 ID: [id number] MULTIPLE PROCEDURE: THYROID SCAN AND UPTAKES CPT CODE: 79440 INDICATION: Hyperthyroidism PROTOCOL: 0.238 mCi of I-123 [...] elevated overall iodide uptakes. Signed: Konrad Hi MDReport Verified Date/Time: 11/09/2019 09:03:02 Reading Location: [address] Reading Room thyroid uptake 2019-11-09 Interface, External [facility] and scan-24 only 09:03:00 Ris In - 11/09/2019 - Medical 9:05 AM [facility] Center REPORT PROCEDURE: THYROID SCAN AND UPTAKES CPT CODE: 59588 INDICATION: Hyperthyroidism PROTOCOL: 0.238 mCi of I-123 [...] elevated overall iodide uptakes. Signed: Konrad Hi MDReport Verified Date/Time: 11/09/2019 09:03:02 Reading Location: [address] [place] [address] Reading Room
[2020-06-02 02:57] LABS: SARS-COV-2 RT PCR POSITIVE (NEGATIVE)
[2020-06-02 03:05] LABS: Absolute Lymphocytes (CBC) 1.2 K/uL (0.7-4.9); Basophils % 0.6 % (0-1.3); Hematocrit 41.8 % (36.0-45.0); Lymphocytes % 20.7 % (15.3-44.8); MPV 7.7 fL (7.6-11.3); RBC Red Blood Cell Count 4.83 M/uL (3.86-4.86)
[2020-06-02 03:06] LABS: Protime INR 1.04
[2020-06-02 03:17] LABS: ALT/SGPT 24 U/L (12-78); AST/SGOT 14 U/L (15-37); Albumin 3.3 g/dL (3.4-5.0); Alkaline Phosphatase 152 U/L (45-117); BUN Blood Urea Nitrogen 11 mg/dL (7-18); Bicarbonate 29 mmol/L (21-32); Bilirubin Direct < 0.1 mg/dL (0-0.2); Bilirubin Total 0.2 mg/dL (0.2-1.0); Glucose Level 101 mg/dL (74-106); Lipase 137 U/L (73-393); Magnesium 2.3 mg/dL (1.8-2.4); NT PRO-BNP 58 pg/mL (<125); Protein, Total 7.1 g/dL (6.4-8.2); Sodium Level 140 mmol/L (136-145); Troponin (Emerg Dept Use Only) < 0.02 ng/mL (0.0-0.045)
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
[2020-06-02] MEDS ORDERED: predniSONE 20 MG TAB ONE (04:00)
[2020-06-02 07:20] VITALS: TEMP 98.6
[2020-06-02 07:22] VITALS: BP 104/89; O2SAT 98
--- NOTE | 2020-06-02 11:00 | RAD REPORT ---
EXAM DESCRIPTION: RAD - Chest Single View - 06/02/2020 1:46 am CLINICAL HISTORY: The patient is 45 years old and is Female; COUGH TECHNIQUE: Frontal view of the chest. COMPARISON: Chest x-ray 01/15/2020. FINDINGS: Lungs: Low lung volumes bilaterally. There is pulmonary vascular congestion versus vascular crowding. Left hemidiaphragm is obscured which can be seen with left lower lobe consolidation or atele ctasis. Pleural space: Left costophrenic angle is obscured; cannot exclude left pleural effusion. No pneumothorax. Heart: Unremarkable. Mediastinum: Unremarkable. Bones/joints: Unremarkable. Tubes, lines and devices: There is right CUSTOMER RETENTION REPRESENTATIVE shunt tubing overlying the chest. There is an abandoned right CUSTOMER RETENTION REPRESENTATIVE shunt tract overlying the chest. IMPRESSION: 1. Low lung volumes bilaterally. 2. There is pulmonary vascular congestion versus vascular crowding. 3. Left hemidiaphragm is obscured which can be seen with left lower lobe consolidation or atelectas is. 4. Left costophrenic angle is obscured; cannot exclude left pleural effusion. Electronically signed by: Jose Luis Valdes MD 06/02/2020 1:57 AM C WPF DEVELOPER Due to temporary technical issues with the PACS/Fluency reporting system, reports are being signed by the in house radiologist without review as a courtesy to ensure prompt reporting. The interpreting r adiologist is fully responsible for the content of the report.
--- NOTE | 2020-06-02 17:08 | EKG ---
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
== END 2020-06-02 03:53 | disposition home or self-care (01) ==
LOC: ER 00:34
DX: U07.1 COVID-19 (principal); Z88.5 Allergy status to narcotic agent
CPT/HCPCS: 93005; 87040 ×2; 87070; 85025; 80048; 36415; 83735; 85610; 80076; 87081; 85730; 84484; 83690; 83880; 0240U; 71045; 99284; J7512

== ENCOUNTER 2020-06-06 10:58 | Emergency (ER) | payer OTHER ==
--- OUTSIDE RECORDS SUMMARY | 2020-06-06 21:01 | XMS REPORT | Continuity of Care Document ---
:1975 Author Organization [facility] t Address [address] Anto[place]. [address] [place] [id number] Care Team Providers Name Role Phone Christiano Mccall DO Primary Care Physician Moises HAHN, K.H. Attending Clinician Doctor Unassigned, Name Attending Clinician Unavailable Ramses Cool MD Attending Clinician Scarlett Mccall Attending Clinician Unavailable Christiano Mccall DO Attending Clinician Bridgette Mccall MD Attending Clinician Unavailable Payers Payer Name Policy Type Policy Effective Date Expiration Date Sour ce Number MEDICAID - [id number] 2019 [facility] MEDICAID MGD 00:00:00 - Medical [facility] STAR [id number] caid Contracted Problems This patient has no known problems. Allergies, Adverse Reactions, Alerts This patient has no known allergies or adverse reactions. Social History Social Habit Start Date Stop Date Quantity Comments Source Sex Assigned At [facility] Medications Ordered Filled Start Stop Current [...] [facility] Plan of Care Planned Activity Planned Date Details Comments Source Future Scheduled 2020-04-[address] [facility] - Test 00:00:00 (12+) [code = [facility] DEPRESSION SCREENING (12+)] Future Scheduled 2020-01-[address] [facility] Test 00:00:00 (procedure) [code = [facility] 97065597] Future Scheduled 2019-12-[address] [facility] - Test 00:00:00 (#1) [code = [facility] INFLUENZA VACCINE (#1)] Future Scheduled 1996-01-[address] [facility] Test 00:00:00 malignant neoplasm of [facility] cervix (procedure) [code = 577206631] Future Scheduled 1993 HEPATITIS C [facility]CRE[facility]ING [facility] Test 00:00:00 [code = [facility]IS [facility] SCREENING] Future Scheduled 1982 DTAP/TDAP/TD VACCINES [facility] Test 00:00:00 (1 - Tdap) [code = Medical C enter DTAP/TDAP/TD VACCINES (1 - Tdap)] Encounters Start End Encounter Admission Attending Care Care Encounter Source Date/Time Date/Time Type Type Clinicians Facility Department ID 2020-06-03 2020-06-[address] [facility] [id number] [facility] 00:00:00 00:00:00 [facility] Outpati ent [facility] 2020-06-02 2020-06-02 [facility] [id number] 00:00:00 00:00:00 Imani Vu [id number] [place] [id number] Professio [phone] nal [address] [place] [address] 2020-05-31 2020-05-[address] [facility] [id number] [facility] 00[facility]00:00 00:00:00 [facility] Outpati [facility] Clinics 2020-05-07 2020-05-[address] [facility] [id number] [facility] 00:00:00 00:00:00 [facility] Outpati ent [facility] 2020-05-05 2020-05-05 [facility] [id number] 00:00:00 00:00:00 Imani Vu [id number] [place] [id number] Professio [phone] nal 9 [facility] 2020-05-02 2020-05-02 [facility] [id number] 08:58:15 23:59:00 Encounter Sendil KDonyaHDonya SPECIALTY [id number] CARE [id number] CENTER AT [id number] DANIELLE 805 [facility] 2020-05-02 2020-05-02 [facility] [id number] 08:32:07 08:57:00 Encounter Sendil KDonyaHDonya SPECIALTY [id number] CARE [id number] CENTER AT [id number] DANIELLE 805 [facility] 2020-05-02 2020-05-02 [facility] [id number] 08:31:50 08:31:50 Encounter Imani Carrion SPECIALTY [id number] [facility] [id number] CENTER AT [id number] DANIELLE 805 [facility] 2020-05-02 2020-05-02 [facility] [id number] 08:31:12 08:31:12 Encounter Imani Carrion SPECIALTY [id number] CARE [id number] CENTER AT [id number] DANIELLE 805 [facility] 2020-04-16 2020-04-16 [facility] [id number] 2020-04-11 2020-04-11 Orders Doctor AGUILAR [id number] 00:00:00 00:00:00 Only Unassigned, NICHOLAS [id number] [place] [facility] [id number] 2020-04-08 2020-04-08 [facility] [id number] 00:00:00 00:00:00 Imani Vu [id number] [place] [id number] [facility] [id number] [facility] health9 [facility] 2020-04-01 2020-04-[facility] [id number] 2020-03-31 2020-03-31 Outpatient [facility] [id number] [facility] 2020-03-27 2020-03-27 Office LO Cool [id number] 13:04:09 13:34:09 Visit Pratibha Pearce AMBULATOR [id number] Y [id number] [id number] 2020-03-24 2020-03-24 Outpatient [facility] [id number] [facility] 2020-03-17 2020-03-17 Outpatient [facility] [id number] [facility] 2020-03-12 2020-03-12 Outpatient [facility] [id number] [facility] 2020-03-11 2020-03-11 Outpatient [facility] [id number] [facility] 2020-03-03 2020-03-03 Outpatient [facility] [id number] [facility] 2020-02-14 2020-02-14 Outpatient [facility] [id number] [facility] 2020-02-11 2020-02-11 Outpatient [facility] [id number] [facility] 2020-02-08 2020-02-08 Outpatient [facility] [id number] [facility] 2020-01-30 2020-01-30 Outpatient [facility] [id number] [facility] 2020-01-23 2020-01-23 Outpatient [facility] [id number] [facility] 2020-01-22 2020-01-22 Outpatient [facility] [id number] [facility] 2020-01-15 2020-01-15 Outpatient [facility] [id number] [facility] 2020-01-09 2020[facility]01-09 [id number] 2020-01-07 2020[facility]01-[facility] [id number] [facility] 2019-12-19 2019-12-19 [facility] [id number] 16:30:00 16:30:00 t Instaradio s Droplr [facility] Medicine Outpati ent Clinics 2019-12-18 2019-12-18 [facility] [id number] 13:33:00 13:33:00 t Instaradio s - PellePharm [facility] Outpati ent Clinics 2019-12-09 2019-12-09 [facility] [id number] 17:43:00 17:43:00 t Instaradio s Droplr [facility] Outpati [facility] Clinics 2019-11-26 2019-11-26 [facility] [id number] 15:17:00 15:17:00 t Instaradio s Droplr [facility] Outpati [facility] Clinics 2019-11-24 2019-11-24 [facility] [id number] 15:24:00 15:24:00 t Instaradio s Droplr [facility] Outpat[facility] Clinics 2019-11-22 2019-11-22 [facility] [id number] 16:03:00 16:03:00 t Instaradio s Droplr [facility] Outpati [facility] Clinics 2019-11-19 2019-11-19 [facility] [id number] 14:35:00 14:35:00 t Instaradio s Droplr [facility] Outpati [facility] Clinics 2019-11-16 2019-11-16 [facility] [id number] 09:15:00 09:15:00 t Instaradio s Droplr [facility] Out[facility] Clinics 2019-11-08 2019-11-08 [facility] [id number] 09:12:00 09:12:[address] [facility] Outpati [facility] Clinics 2019-10-30 2019-10-30 [facility] [id number] 17:05:00 17:05:[address] [facility] Outpati [facility] Clinics 2019-10-29 2019-10-29 [facility] [id number] 15:04:00 15:04:[address] [facility] Outpati [facility] Clinics 2019-10-29 2019-10-29 [facility] [id number] 08:06:00 08:06:[address] [facility] Outpati [facility] Clinics 2019-10-22 2019-10-22 [facility] [id number] 12:23:00 12:23:[address] [facility] Outpati [facility] Clinics 2019-10-18 2019-10-18 [facility] [id number] 14:30:00 14:30:[address] [facility] Outpat[facility] Clin[facility] 2019-09-20 2019-09-20 [facility] [id number] 09:00:00 09:00:00 t Talend [facility] Outpati ent Clinics Results Test Description Test Time Test Comments Results Result [facility] e Comments THYROID IMAGING 2019-11-09 FINAL REPORT PATIENT W/ UPTAKE, 09:03:00 ID: [id number] MULTIPLE PROCEDURE: THYROID SCAN AND UPTAKES CPT CODE: 62582 INDICATION: Hyperthyroidism PROTOCOL: 0.238 mCi of I-123 [...] Hi Verified Date/Time: 11/09/2019 09:03:02 Reading Location: [address] [employer] [facility] Reading Room thyroid uptake 2019-11-09 Interface, External [facility] and scan-24 only 09:03:00 Ris In - 11/09/2019 - Medical 9:05 AM [facility] Center REPORT PROCEDURE: THYROID SCAN AND UPTAKES CPT CODE: 20700 INDICATION: Hyperthyroidism PROTOCOL: 0.238 mCi of I-123 [...]
--- NOTE | 2020-06-06 21:58 | ER ---
Nurse's Notes [facility] Name: Skye Figueroa Age: 45 yrs Sex: Female : 1975 Arrival Date: 06/06/2020 Time: 20:59 Bed 26 Private MD: Diagnosis: Coronavirus infection, unspecified Presentation: 06/06 21:05 Chief complaint: Patient states: COVID+ 05/31/2020, SS started 05/28/2020. Meds completed ca1 for Covid but I lost my voice. I had Grave's disease and brain tumor so maybe I need more treatment. Denies cough, Denies SOB at this time. Coronavirus screen: Client reports previous positive COVID test result. Date of collection: May 31, 2020 Staff notified of need for isolation. Ebola Screen: Patient negative for fever greater than or equal to 101.5 degrees Fahrenheit, and additional compatible Ebola Virus Disease symptoms Patient denies exposure to infectious person. Patient denies travel to an Ebola-affected area in the 21 days before illness onset. No symptoms or risks identified at this time. Initial Sepsis Screen: Does the patient meet any 2 criteria? No. Patient's initial sepsis screen is negative. Does the patient have a suspected source of infection? No. Patient's initial sepsis screen is negative. Risk Assessment: Do you want to hurt yourself or someone else? Patient reports no desire to harm self or others. Onset of symptoms was June 06, 2020. 21:05 Method Of Arrival: Ambulatory ca1 21:05 Acuity: NIDA 3 ca1 [employer] INS[employer]OR: 21:22 LMP N/A - Irregular menses ca1 Historical: - Allergies: 21:22 Naproxen; ca1 21:22 tramadol; ca1 - PMHx: 21:22 BRAIN TUMOR; graves disease; Hydrocephalus; Migraines; Seizures; ca1 - PSHx: 21:22 Appendectomy; Cholecystectomy; ca1 - Immunization history:: Flu vaccine is not up to date. - Social history:: Smoking status: Patient denies any tobacco usage or history of. Screenin:10 Abuse screen: Denies threats or abuse. Denies injuries from another. Nutritional zb screening: No deficits noted. Tuberculosis screening: No symptoms or risk factors identified. Fall Risk None identified. Assessment: :28 Reassessment: ECP at bedside. zb 22:00 Musculoskeletal: Capillary refill < 3 seconds, in bilateral fingers. Range of motion: zb intact in all extremities. 22:09 General: Appears in no apparent distress. comfortable, Behavior is calm, cooperative, zb appropriate for age. Pain: Denies pain. Neuro: Level of Consciousness is awake, alert, obeys commands, Oriented to person, place, time, situation. Cardiovascular: Denies chest pain, diaphoresis, fatigue, lightheadedness, nausea, palpitations, shortness of breath, syncope, vomiting, Capillary refill < 3 seconds in bilateral fingers Patient's skin is warm and dry. Respiratory: Reports cough that is productive, persistent Airway is patent Respiratory effort is even, unlabored, Respiratory pattern is regular, symmetrical. GI: Abdomen is round. : No signs and/or symptoms were reported regarding the genitourinary system. EENT: No signs and/or symptoms were reported regarding the EENT system. Derm: Skin is intact, is healthy with good turgor, Skin is dry, Skin is normal, Skin temperature is warm. 22:15 Reassessment: d/c instructions given. patient aox4. states she feels better. gait even zb and steady. ambulated out. Vital Signs: 21:05 BP 125 / 68; Pulse 64; Resp 16 S; Temp 97.4(TE); Pulse Ox 97% on R/A; Weight 122.47 kg ca1 (R); Height 5 ft. 4 in. (162.56 cm) (R); Pain 0/10; 22:14 BP 120 / 70; Pulse 64; Resp 16; Pulse Ox 94% on R/A; zb 21:05 Body Mass Index 46.34 (122.47 kg, 162.56 cm) ca1 ED Course: 20:59 Patient arrived in ED. am4 21:13 Gallito Kincaid PA is PHCP. cp 21:13 Alexander Amezcua MD is Attending Physician. cp 21:21 Triage completed. ca1 21:22 Arm band placed on right wrist. ca1 21:28 Liza Lauren, CALEB is Primary Nurse. zb 22:10 Patient has correct armband on for positive identification. Pulse ox on. NIBP on. zb 22:10 No provider procedures requiring assistance completed. Patient did not have IV access zb during this emergency room visit. Administered Medications: 21:48 Drug: SOLU-Medrol 125 mg Route: IM; Site: right deltoid; zb 22:07 Follow up: Response: No adverse reaction zb Outcome: 21:58 Discharge ordered by . cp 22:10 Discharged to home ambulatory. zb 22:10 Condition: good 22:10 Discharge instructions given to patient, Instructed on discharge instructions, follow up and referral plans. medication usage, Demonstrated understanding of instructions, follow-up care, medications, Prescriptions given X 1. 22:15 Patient left the ED. zb Signatures: Gallito Kincaid PA PA cp Acob, Cheryl RN RN ca1 Liza Lauren RN RN zb Jennifer Flynn Corrections: (The following items were deleted from the chart) 22:11 22:09 Respiratory: Airway is patent Respiratory effort is even, unlabored, Respiratory zb pattern is regular, symmetrical, zb 22:11 22:09 EENT: No signs and/or symptoms were reported regarding the EENT system. zb zb
--- NOTE | 2020-06-06 21:58 | EDPHYS ---
Physician Documentation [facility] Name: Skye Figueroa Age: 45 yrs Sex: Female : 1975 Arrival Date: 06/06/2020 Time: 20:59 Bed 26 Private MD: ED Physician Alexander Amezcua HPI: 06/06 21:47 This 45 yrs old Female presents to ER via Ambulatory with complaints of cp DOESNT FEEL RIGHT. 21:47 Patient reports symptoms of cough, congestion started 05-28-2020. Diagnosed with cp COVID-19 05-31-20 and completed 5 days course of antibiotic and oral steroids. Patient reports overall symptoms have improved, but continues to have cough and loss of voice. Requesting injection of steroid to help symptoms. 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 - Social history:: Smoking status: Patient denies any tobacco usage or history of. ROS: 21:50 Constitutional: Negative for body aches, chills, fever, poor PO intake. cp 21:50 Eyes: Negative for injury, pain, redness, and discharge. cp 21:50 ENT: Positive for hoarseness, Negative for drainage from ear(s), ear pain, sore throat, difficulty swallowing, difficulty handling secretions. 21:50 Cardiovascular: Negative for chest pain, edema, palpitations. 21:50 Respiratory: Positive for cough, with no reported sputum, Negative for shortness of breath, wheezing. 21:50 Abdomen/GI: Negative for abdominal pain, nausea, vomiting, and diarrhea. 21:50 Neuro: Negative for altered mental status, headache. 21:50 All other systems are negative. Exam: 21:55 Constitutional: The patient appears in no acute distress, alert, awake, non-toxic, well cp developed, well nourished, obese. 21:55 Head/Face: Normocephalic, atraumatic. cp 21:55 Eyes: Periorbital structures: appear normal, Conjunctiva: normal, no exudate, no injection, Lids and lashes: appear normal, bilaterally. 21:55 ENT: External ear(s): are unremarkable, Nose: is normal, Posterior pharynx: Airway: no evidence of obstruction, patent. 21:55 Neck: ROM/movement: is normal, is supple, without pain, no range of motions limitations, no meningismus. 21:55 Chest/axilla: Inspection: normal. 21:55 Cardiovascular: Rate: normal. 21:55 Respiratory: the patient does not display signs of respiratory distress, Respirations: normal, no use of accessory muscles, no retractions, labored breathing, is not present, Breath sounds: bronchial sounds, that are mild, are heard diffusely, decreased breath sounds, are not appreciated, stridor, is not appreciated, + upper airway congestion. wheezing: is not appreciated. 21:55 Abdomen/GI: Exam negative for discomfort, distension, guarding, Inspection: abdomen appears normal. Vital Signs: 21:05 BP 125 / 68; Pulse 64; Resp 16 S; Temp 97.4(TE); Pulse Ox 97% on R/A; Weight 122.47 kg ca1 (R); Height 5 ft. 4 in. (162.56 cm) (R); Pain 0/10; 22:14 BP 120 / 70; Pulse 64; Resp 16; Pulse Ox 94% on R/A; zb 21:05 Body Mass Index 46.34 (122.47 kg, 162.56 cm) ca1 MDM: 21:46 Patient medically screened. cp 21:55 Differential diagnosis: viral Infection, bacterial infection, URI, pneumonia meningitis.cp 21:57 Data reviewed: vital signs, nurses notes, and as a result, I will discharge patient. cp 21:57 Counseling: I had a detailed discussion with the patient and/or guardian regarding: the cp historical points, exam findings, and any diagnostic results supporting the discharge/admit diagnosis, to return to the emergency department if symptoms worsen or persist or if there are any questions or concerns that arise at home. Administered Medications: 21:48 Drug: SOLU-Medrol 125 mg Route: IM; Site: right deltoid; zb 22:07 Follow up: Response: No adverse reaction zb Disposition: 06/07 03:14 Co-signature as Attending Physician, Alexander Amezcua MD. [email or web address] Disposition: 06/06/20 21:58 Discharged to Home. Impression: Coronavirus infection, unspecified. - Condition is Stable. - Discharge Instructions: Cough, Adult, COVID-19. - Prescriptions for Tessalon Perles 100 mg Oral Capsule - take 2 capsule by ORAL route every 8 hours As needed; 30 capsule. - Medication Reconciliation Form, Thank You Letter, Antibiotic Education, Prescription Opioid Use form. - Follow up: Private Physician; When: 2 - 3 days; Reason: Worsening of condition. - Problem is new. - Symptoms have improved. Signatures: Gallito Kincaid PA PA cp Candice Salgado, RN RN ca1 Alexander Amezcua MD MD 7 Liza Lauren RN RN zb Corrections: (The following items were deleted from the chart) 06/06 22:15 21:58 06/06/2020 21:58 Discharged to Home. Impression: Coronavirus infection, zb unspecified. Condition is Stable. Forms are Medication Reconciliation Form, Thank You Letter, Antibiotic Education, Prescription Opioid Use. Follow up: Private Physician; When: 2 - 3 days; Reason: Worsening of condition. Problem is new. Symptoms have improved. cp
[2020-06-06] MEDS ORDERED: METHYLPREDNISOLONE 125 MG INJ ONE (22:01)
[2020-06-07 00:59] VITALS: TEMP 97.4
[2020-06-07 01:00] VITALS: BP 120/70; O2SAT 94
== END 2020-06-06 22:15 | disposition home or self-care (01) ==
LOC: ER 20:58
DX: U07.1 COVID-19 (principal); Z88.5 Allergy status to narcotic agent; Z88.6 Allergy status to analgesic agent
CPT/HCPCS: 96372; 99283; J2930

== ENCOUNTER 2020-06-10 19:32 | Emergency (ER) | payer OTHER ==
--- OUTSIDE RECORDS SUMMARY | 2020-06-10 19:35 | XMS REPORT | Continuity of Care Document ---
:[address] [facility] t Address [address] [place] [address] Care Team Providers Name Role Phone Christiano Mccall DO Primary Care Physician Moises HAHN, K.H. Attending Clinician Doctor Unassigned, Name Attending Clinician Unavailable Ramses Cool MD Attending Clinician Scarlett Mccall Attending Clinician Unavailable Christiano Mccall DO Attending Clinician Bridgette Mccall MD Attending Clinician Unavailable Payers Payer Name Policy Type Policy Effective Date Expiration Date Sour ce Number MEDICAID - [id number] 2019 [facility] MEDICAID MGD 00:00:00 - Medical CAREFORMERLY [facility] Center STAR [id number] caid Contracted Problems This patient has no known problems. Allergies, Adverse Reactions, Alerts This patient has no known allergies or adverse reactions. Social History Social Habit Start Date Stop Date Quantity Comments Source Sex Assigned At [facility] Medications Ordered Filled Start Stop [...] [facility] Plan of Care Planned Activity Planned Date Details Comments Source Future Scheduled 2020-04-[address] [facility] - Test 00:00:00 (12+) [code = [facility] DEPRESSION SCREENING (12+)] Future Scheduled 2020-01-[address] [facility] Test 00:00:00 (procedure) [code = [facility] [id number]] Future Scheduled 2019-12-[address] [facility] - Test 00:00:00 (#1) [code = [facility] INFLUENZA VACCINE (#1)] Future Scheduled 1996-01-[address] [facility] Test 00:00:00 malignant neoplasm of [facility] cervix (procedure) [code = 241868890] Future Scheduled 1993 HEPATITIS C SCREENING CH [...] Clinicians Facility Department ID 2020-06-03 2020-06-03 Outpatient [facility] [id number] [facility] St 00:00:00 00:00:00 [facility] Outpati ent [facility] 2020-06-02 2020-06-02 [facility] [id number] 00:00:00 00:00:00 Imani Vu [id number] [place] [id number] Professio [phone] nal [address] [place] [address] 2020-05-31 2020-05-31 Outpatient [facility] [id number] [facility] St 00:00:00 00:00:00 [facility] Outpati ent Clinics 2020-05-07 2020-05-07 Outpatient [facility] [id number] [facility] St 00:00:00 00:00:00 [facility] Outpati ent [facility] 2020-05-05 2020-05-05 [facility] [id number] 00:00:00 00:00:00 Imani Vu [id number] [place] [id number] Professio [phone] nal 9 [facility] 2020-05-02 2020-05-02 [facility] [id number] 08:58:15 23:59:00 Encounter Sendil KDonyaHDonya SPECIALTY [id number] CARE [id number] CENTER AT [id number] DANIELLE 805 [facility] 2020-05-02 2020-05-02 [facility] [id number] 08:32:07 08:57:00 Encounter Sendil KDonyaHDonya SPECIALTY [id number] CARE [id number] CENTER AT [id number] DANIELLE 805 [facility] 2020-05-02 2020-05-02 [facility] [id number] 08:31:50 08:31:50 Encounter Imani Carrion SPECIALTY [id number] [facility] [id number] CENTER AT [id number] DANIELLE 805 [facility] 2020-05-02 2020-05-02 [facility] [id number] 08:31:12 08:31:12 Encounter Imani Carrion SPECIALTY [id number] CARE [id number] CENTER AT [id number] DANIELLE 805 [facility] 2020-04-16 2020-04-16 Outpatient [facility] [id number] [facility] 2020-04-11 2020-04-11 Orders Doctor AGUILAR [id number] 00:00:00 00:00:00 Only Unassigned, NICHOLAS [id number] [place] [facility] [id number] 2020-04-08 2020-04-08 [facility] [id number] 00:00:00 00:00:00 Imani Vu [id number] [place] [id number] [facility] [phone] [email or web address] 2020-04-01 2020-04-01 Outpatient [facility] [id number] 2020-03-31 2020-03-31 Outpatient [facility] [id number] [facility] 2020-03-27 2020-03-27 Office LO Cool [id number] 13:04:09 13:34:09 Visit Pratibha Pearce AMBULATOR [id number] Y [id number] [id number] 2020-03-24 2020-03-24 Outpatient [facility] [id number] [facility] 2020-03-17 2020-03-17 Outpatient [facility] [id number] [facility] 2020-03-12 2020-03-12 Outpatient [facility] [id number] [facility] 2020-03-11 2020-03-11 Outpatient [facility] [id number] [facility] 2020-03-03 2020-03-03 Outpatient [facility] [id number] [facility] 2020-02-14 2020-02-14 Outpatient [facility] [id number] [facility] 2020-02-11 2020-02-11 Outpatient [facility] [id number] [facility] 2020-02-08 2020-02-08 Outpatient [facility] [id number] [facility] 2020-01-30 2020-01-30 Outpatient [facility] [id number] [facility] 2020-01-23 2020-01-23 Outpatient [facility] [id number] [facility] 2020-01-22 2020-01-22 Outpatient [facility] [id number] [facility] 2020-01-15 2020-01-15 Outpatient [facility] [id number] [facility] 2020-01-09 2020-01-09 [facility] [id number] 2020-01-07 2020-01-07 [facility] [id number] [facility] 2019-12-19 2019-12-19 [facility] [id number] 16:30:00 16:30:00 t [employer] [place] [facility] Outpati [facility] Clinics 2019-12-18 2019-12-18 [facility] [id number] 13:33:00 13:33:00 t BigML s - [place] [facility] 2019-12-09 2019-12-09 [facility] [id number] 17:43:00 17:43:00 t [employer] [place] [facility] 2019-11-26 2019-11-26 [facility] [id number] 15:17:00 15:17:00 t [employer] [place] [facility] 2019-11-24 2019-11-24 [facility] [id number] 15:24:00 15:24:00 t [employer] [place] [facility] 2019-11-22 2019-11-22 [facility] [id number] 16:03:00 16:03:00 t [employer] [place] [facility] 2019-11-19 2019-11-19 [facility] [id number] 14:35:00 14:35:00 t [employer] [place] [facility] 2019-11-16 2019-11-16 [facility] [id number] 09:15:00 09:15:00 t [employer] [place] [facility] 2019-11-08 2019-11-08 [facility] [id number] 09:12:00 09:12:00 t [employer] [facility] 2019-10-30 2019-10-30 [facility] [id number] 17:05:00 17:05:00 t [employer] [facility] 2019-10-29 2019-10-29 [facility] [id number] 15:04:00 15:04:00 t [employer] [facility] 2019-10-29 2019-10-29 [facility] [id number] 08:06:00 08:06:00 t [employer] [facility] 2019-10-22 2019-10-22 [facility] [id number] 12:23:00 12:23:00 t [employer] [facility] 2019-10-18 2019-10-18 [facility] [id number] 14:30:00 14:30:00 t [employer] [facility] 2019-09-20 2019-09-20 [facility] [id number] 09:00:00 09:00:00 t [employer] [facility] Outpati ent Clinics Results Test Description Test Time Test Comments Results Result [facility] e Comments THYROID IMAGING 2019-11-09 FINAL REPORT PATIENT W/ UPTAKE, 09:03:00 ID: [id number] MULTIPLE PROCEDURE: THYROID SCAN AND UPTAKES CPT CODE: 72014 INDICATION: Hyperthyroidism PROTOCOL: 0.238 mCi of I-123 [...] Hi Verified Date/Time: 11/09/2019 09:03:02 Reading Location: [address] [email or web address] [facility] Reading Room thyroid uptake 2019-11-09 Interface, External [facility] and scan-24 only 09:03:00 Ris In - 11/09/2019 - Medical 9:05 AM [facility] Center REPORT PROCEDURE: THYROID SCAN AND UPTAKES CPT CODE: 32100 INDICATION: Hyperthyroidism PROTOCOL: 0.238 mCi of I-123 [...]
[2020-06-10] MEDS ORDERED: LEVALBUTEROL 1.25 MG/3 ML NEB ONE (21:29)
--- NOTE | 2020-06-10 22:24 | ER ---
Nurse's Notes [facility] Name: Skye Figueroa Age: 45 yrs Sex: Female : 1975 Arrival Date: 06/10/2020 Time: 19:34 Bed 19 Private MD: Diagnosis: Coronavirus infection, unspecified Presentation: 06/10 19:49 Chief complaint: Patient states: Took azithromycin and steroids for her covid, hasn't ll1 gotten better yet. Fatigue. Coronavirus screen: Client denies travel out of the [place] in the last 14 days. congestion, cough unrelated to allergies, difficulty breathing, nausea, Client presents with at least one sign or symptom that may indicate coronavirus-19. Standard/surgical mask placed on the client. Ebola Screen: Patient denies travel to an Ebola-affected area in the 21 days before illness onset. Initial Sepsis Screen: Does the patient meet any 2 criteria? No. Patient's initial sepsis screen is negative. Does the patient have a suspected source of infection? Yes: Productive cough/pneumonia. Risk Assessment: Do you want to hurt yourself or someone else? Patient reports no desire to harm self or others. Onset of symptoms was May 20, 2020. 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 - Social history:: Smoking status: Patient denies any tobacco usage or history of. Screenin:00 Abuse screen: Denies threats or abuse. Denies injuries from another. Nutritional wh screening: No deficits noted. Tuberculosis screening: No symptoms or risk factors identified. Fall Risk None identified. Assessment: 21:00 General: Appears in no apparent distress. Behavior is calm, cooperative, appropriate wh for age. Pain: Complains of pain in sore throat. Neuro: Level of Consciousness is awake, alert, obeys commands, Oriented to person, place, time, situation, Appropriate for age. Cardiovascular: Heart tones S1 S2. Respiratory: Reports shortness of breath cough that is Airway is patent Respiratory effort is even, unlabored, Respiratory pattern is regular, symmetrical, Breath sounds are clear bilaterally. GI: Abdomen is flat, non-distended. : No signs and/or symptoms were reported regarding the genitourinary system. EENT: Throat is pink. Derm: Skin is intact, is healthy with good turgor, Skin is pink, warm \T\ dry. normal. Musculoskeletal: Circulation, motion, and sensation intact. 22:30 Reassessment: Patient appears in no apparent distress at this time. No changes from previously documented assessment. Patient and/or family updated on plan of care and expected duration. Pain level reassessed. Patient is alert, oriented x 3, equal unlabored respirations, skin warm/dry/pink. Vital Signs: 19:49 BP 118 / 86; Pulse 87; Resp 17; Temp 99.4; Pulse Ox 96% ; Weight 124.74 kg; Height 5 ll1 ft. 4 in. (162.56 cm); Pain 8/10; 22:15 BP 110 / 58; Pulse 72; Resp 18; Pulse Ox 96% on R/A; wh 19:49 Body Mass Index 47.20 (124.74 kg, 162.56 cm) ll1 ED Course: 19:34 Patient arrived in ED. bp1 19:51 Triage completed. ll1 19:51 Arm band placed on. ll1 20:46 Tee Fernandez, RN is Primary Nurse. 20:58 Oz Cote PA is PHCP. [facility] 20:58 Alexander Amezcua MD is Attending Physician. [facility] 21:00 Patient has correct armband on for positive identification. Bed in low position. Call light in reach. Side rails up X 1. Pulse ox on. NIBP on. 21:57 Chest Single View XRAY In Process Unspecified. EDMS 22:42 No provider procedures requiring assistance completed. Patient did not have IV access during this emergency room visit. Administered Medications: 21:27 Drug: Xopenex (3) 1.25 mg Route: Inhalation; 22:44 Follow up: Response: No adverse reaction; Marked relief of symptoms Outcome: 22:24 Discharge ordered by . [facility] 22:42 Discharged to home ambulatory. 22:42 Condition: stable 22:42 Discharge instructions given to patient, Instructed on discharge instructions, follow up and referral plans. medication usage, POC Demonstrated understanding of instructions, follow-up care, medications, POC Prescriptions given X 1. 22:44 Patient left the ED. Signatures: Dispatcher [employer] EDMS Oz Cote PA PA jmm Habalo, Winsy, RN RN Yamil Ledezma RN RN [facility] Juana Mccrary [facility]
--- NOTE | 2020-06-10 22:24 | EDPHYS ---
Physician Documentation [facility] Name: Skye Figueroa Age: 45 yrs Sex: Female : 1975 Arrival Date: 06/10/2020 Time: 19:34 Bed 19 Private MD: ED Physician Alexander Amezcua HPI: 06/10 22:10 This 45 yrs old Female presents to ER via Wheelchair with complaints of jmm Chills. 22:10 The patient or guardian reports cough. Onset: The symptoms/episode began/occurred jmm gradually, 10 day(s) ago. Modifying factors: The symptoms are alleviated by nothing. the symptoms are aggravated by nothing. Associated signs and symptoms: Pertinent positives: fever, sore throat. This is a 45 year old female with a history of graves disease that presents to the ED with complaints of cough, fatigue, chills beginning approx 10 days ago. Patient has been seen multiple times since diagnosis of covid 19. Today her pcp was concerned about what her chest xray would show as well has how the virus has been affected by graves disease. Patient states her home pulse ox has been around 95 to 96. 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 - Social history:: Smoking status: Patient denies any tobacco usage or history of. ROS: 22:10 Constitutional: Positive for chills. jmm 22:10 ENT: Positive for sore throat. 22:10 Respiratory: Positive for cough. 22:10 All other systems are negative. Exam: 22:10 Constitutional: This is a well developed, well nourished patient who is awake, alert, jmm and in no acute distress. Head/Face: atraumatic. Eyes: EOMI, no conjunctival erythema appreciated ENT: Moist Mucus Membranes Neck: Trachea midline, Supple Chest/axilla: Normal chest wall appearance and motion. Cardiovascular: Regular rate and rhythm. No edema appreciated Respiratory: Normal respirations, no respiratory distress appreciated Abdomen/GI: Non distended, soft Back: Normal ROM Skin: General appearance color normal MS/ Extremity: Moves all extremities, no obvious deformities appreciated, no edema noted to the lower extremities Neuro: Awake and alert, normal gait Psych: Behavior is normal, Mood is normal, Patient is cooperative and pleasant Vital Signs: 19:49 BP 118 / 86; Pulse 87; Resp 17; Temp 99.4; Pulse Ox 96% ; Weight 124.74 kg; Height 5 ll1 ft. 4 in. (162.56 cm); Pain 8/10; 22:15 BP 110 / 58; Pulse 72; Resp 18; Pulse Ox 96% on R/A; wh 19:49 Body Mass Index 47.20 (124.74 kg, 162.56 cm) ll1 MDM: 21:06 Patient medically screened. [facility] 22:22 Data reviewed: vital signs, nurses notes. Counseling: I had a detailed discussion with presley the patient and/or guardian regarding: the historical points, exam findings, and any diagnostic results supporting the discharge/admit diagnosis, radiology results, to return to the emergency department if symptoms worsen or persist or if there are any questions or concerns that arise at home. ED course: Patient is alert and non toxic in appearance in the ED. No signs of resp distress. Patient advised to follow up with pcp for further evaluation. patient understood and agrees with the plan of care. . 06/10 21:06 Order name: Chest Single View XRAY [facility] Administered Medications: 21:27 Drug: Xopenex (3) 1.25 mg Route: Inhalation; 22:44 Follow up: Response: No adverse reaction; Marked relief of symptoms Disposition: 06/11 07:15 Co-signature as Attending Physician, Alexander Amezcua MD. [email or web address] Disposition: 06/10/20 22:24 Discharged to Home. Impression: Coronavirus infection, unspecified. - Condition is Stable. - Discharge Instructions: COVID-19. - Prescriptions for ivermectin 3 mg Oral tablet - take 6 tablet by ORAL route every 4-6 hours one dose now and one dose on day 3; 12 tablet. - Medication Reconciliation Form, Thank You Letter, Antibiotic Education, Prescription Opioid Use form. - Follow up: Private Physician; When: 2 - 3 days; Reason: Recheck today's complaints, Continuance of care, Re-evaluation by your physician. - Notes: Please take 10,000 IU of vitamin D daily along with zinc and vitamin C Please take 1000 MG of NAC three times a day. Signatures: Dispatcher [employer] EDOz Scott PA PA jmm Habalo, Winsy, RN RN Yamil Ledezma RN RN ll1 Alexander Amezcua MD MD [email or web address] Corrections: (The following items were deleted from the chart) 06/10 22:44 22:24 06/10/2020 22:24 Discharged to Home. Impression: Coronavirus infection, wh unspecified. Condition is Stable. Forms are Medication Reconciliation Form, Thank You Letter, Antibiotic Education, Prescription Opioid Use. Follow up: Private Physician; When: 2 - 3 days; Reason: Recheck today's complaints, Continuance of care, Re-evaluation by your physician. presley
--- NOTE | 2020-06-11 12:04 | RAD REPORT ---
EXAM DESCRIPTION: Chest Single View RadLex: XR CHEST 1 VIEW CLINICAL HISTORY: Cough, fever, vrad. COMPARISON: Chest radiograph from June 02, 2020. TECHNIQUE: Single view AP chest radiograph(s). FINDINGS: Slightly increased mild to moderate diffuse pulmonary interstitial thickening and hazy pat doni opacities. Low lung volumes. No definite pleural effusion. No pneumothorax. Mild cardiomegaly. No significant osseous abnormality. Right-sided ventriculoperitoneal shunt catheter tubing. IMPRESSION: 1. Slightly increased mild to moderate diffuse pulmonary interstitial thickening and h azy patchy opacities. 2. Mild cardiomegaly. 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 The interpreting r adiologist is fully responsible for the content of the report.
[2020-06-11 15:51] VITALS: TEMP 99.4; O2SAT 96
[2020-06-11 15:52] VITALS: BP 110/58
== END 2020-06-10 22:44 | disposition home or self-care (01) ==
LOC: ER 19:32
DX: U07.1 COVID-19 (principal); Z88.5 Allergy status to narcotic agent; Z88.6 Allergy status to analgesic agent
CPT/HCPCS: 71045; 99284

== ENCOUNTER 2020-08-20 23:37 | Emergency (ER) | payer OTHER ==
--- OUTSIDE RECORDS SUMMARY | 2020-08-20 23:41 | XMS REPORT | Continuity of Care Document ---
:1975 Author Organization [facility] t Address [address] [place] [address] Care Team Providers Name Role Phone Christiano Mccall DO Primary Care Physician Moises HAHN, K.H. Attending Clinician Doctor Unassigned, Name Attending Clinician Unavailable Scarlett Mccall Attending Clinician Unavailable Christiano Mccall DO Attending Clinician Bridgette Mccall MD Attending Clinician Unavailable Payers Payer Name Policy Type Policy Effective Date Expiration Date Sour ce Number MEDICAID - [id number] 2019 [facility] MEDICAID MGD 00:00[facility]00 [facility] [id number] [facility] Contracted Problems This patient has no known problems. Allergies, Adverse Reactions, Alerts This patient has no known allergies or adverse reactions. Social History Social Habit Start Date Stop Date Quantity Comments Source Sex Assigned At [facility] Medications Ordered Filled Start Stop Current [...] Mccall [facility] Plan of Care Planned Activity Planned Date Details Comments Source Future Scheduled 2020-04-[address] [facility] Test 00:00:00 (12+) [code = [facility] DEPRESSION SCREENING (12+)] Future Scheduled 2020-01-[address] [facility]:00 (procedure) [code = [facility] 90704608] Future Scheduled 2019-12-[address] [facility] Test 00:00:00 (#1) [code = [facility] INFLUENZA VACCINE (#1)] Future Scheduled 1996-01-[address] [facility]00 malignant neoplasm of Medica l Center cervix (procedure) [code = 435852618] Future Scheduled 1993 HEPATITIS C [facility]CRE[facility]ING [facility] 00:[facility]:00 [code = HEPATITIS C Medical Center SCREENING] Future Scheduled 1982 DTAP/TDAP/TD VACCINES [facility] Test 00:[facility]:00 (1 - Tdap) [code = Medical C enter DTAP/TDAP/TD VACCINES (1 - Tdap)] Encounters Start End Encounter Admission Attending Care Care Encounter Source Date/Time Date/Time Type Type Clinicians Facility Department ID 2020-07-11 2020-07-11 Outpatient [facility] [id number] [facility] 2020-07-10 2020-07-10 Outpatient [facility] [id number] [facility] 2020-07-02 2020-07-02 Outpatient [facility] [id number] [facility] 2020-06-29 2020-06-29 Outpatient [facility] [id number] [facility] 2020-06-10 2020-06-10 Outpatient [facility] [id number] [facility] 2020-06-03 2020-06-03 Outpatient [facility] [id number] [facility] 2020-06-02 2020-06-02 Telephone Moises [facility] [id number] 00:00:00 00:00:00 Imani Vu [id number] [place] [id number] Professio [id number] nal 9 [facility] 2020-05-31 2020-05-31 Outpatient [facility] [id number] [facility] 2020-05-07 2020-05-07 Outpatient [facility] [id number] [facility] 2020-05-05 2020-05-05 Telephone Moises [facility] [id number] 00:00:00 00:00:00 Imani Vu [id number] [place] [id number] [place] [id number] nal 059 [facility] 2020-05-02 2020-05-02 [facility] [id number] 08:58:15 23:59:00 Encounter [facility] [id number] CARE [id number] CENTER AT [id number] [facility] [address] [place] [address] 2020-05-02 2020-05-02 [facility] [id number] 08:32:07 08:57:00 Encounter [facility] [id number] CARE [id number] CENTER AT [id number] [address] 2020-05-02 2020-05-02 [facility] [id number] 08:31:50 08:31:50 Encounter [facility] [id number] CARE [id number] CENTER AT [id number] [address] 2020-05-02 2020-05-02 [facility] [id number] 08:31:12 08:31:12 Encounter [facility] [id number] CARE [id number] CENTER AT [id number] [address] 2020-04-16 2020-04-16 Outpatient [facility] [id number] [facility] 00:00:00 00:00:00 [facility] 2020-04-11 2020-04-11 Orders Doctor LAUREN [id number] 00:00:00 00:00:00 Only Unassigned, NICHOLAS [id number] [place] [facility] [id number] 2020-04-08 2020-04-08 [facility] [id number] 00:00:00 00:00:00 Sendtequila K.HDonya Vu [id number] [place] [id number] [facility] [id number] [address] 2020-04-01 2020-04-01 Outpatient [facility] [id number] [facility] 2020-03-31 2020-03-31 Outpatient [facility] [id number] [facility] 2020-03-24 2020-03-24 Outpatient [facility] [id number] [facility] 2020-03-17 2020-03-17 Outpatient [facility] [id number] [facility] 2020-03-12 2020-03-12 Outpatient [facility] [id number] [facility] 2020-03-11 2020-03-11 Outpatient [facility] [id number] [facility] 2020-03-03 2020-03-03 Outpatient [facility] [id number] [facility] 2020-02-14 2020-02-14 Outpatient [facility] [id number] [facility] 2020-02-11 2020-02-11 Outpatient [facility] [id number] [facility] 2020-02-08 2020-02-08 Outpatient [facility] [id number] [facility] 2020-01-30 2020-01-30 Outpatient [facility] [id number] [facility] 2020-01-23 2020-01-23 Outpatient [facility] [id number] [facility] 2020-01-22 2020-01-22 Outpatient [facility] [id number] [facility] 2020-01-15 2020-01-15 Outpatient [facility] [id number] [facility] 2020-01-09 2020-01-09 Outpatient [facility] [id number] [facility] 2020-01-07 2020-01-07 Outpatient [facility] [id number] [facility] 2019-12-19 2019-12-19 [facility] [id number] 16:30:00 16:30:00 t Forever His Transport s Viewpoints [facility] Medicine l Medicine Outpati ent Clinics 2019-12-18 2019-12-18 [facility] [id number] 13:33:00 13:33:00 t Forever His Transport s - Healcerion [facility] Medicine l Medicine Outpati ent Clinics 2019-12-09 2019-12-09 [facility] [id number] 17:43:00 17:43:00 t Forever His Transport s - Healcerion [facility] l Medicine Outpati ent Clinics 2019-11-26 2019-11-26 [facility] [id number] 15:17:00 15:17:00 t Forever His Transport s - Healcerion [facility] Medicine l Medicine Outpati ent Clinics 2019-11-24 2019-11-24 [facility] [id number] [facility] 15:24:00 15:24:00 t Forever His Transport s - Healcerion [facility] Medicine l Medicine Outpati ent Clinics 2019-11-22 2019-11-22 [facility] [id number] [facility] 16:03:00 16:03:00 t Forever [employer] s Viewpoints [facility] Medicine l Medicine Outpati ent Clinics 2019-11-19 2019-11-19 [facility] [id number] 14:35:00 14:35:00 t [place] [email or web address] s Viewpoints [facility] Medicine l Medicine Outpati ent Clinics 2019-11-16 2019-11-16 [facility] [id number] 09:15:00 09:15:00 t Forever [employer] s Viewpoints [facility] Medicine l Medicine Outpati ent Clinics 2019-11-08 2019-11-08 [facility] [id number] 09:12:00 09:12:00 t Forever His [employer] s Viewpoints [facility] Medicine l Medicine Outpati ent Clinics 2019-10-30 2019-10-30 [facility] [id number] 17:05:00 17:05:00 t Forever [employer] s Viewpoints [facility] Medicine l Medicine Outpati ent Clinics 2019-10-29 2019-10-29 [facility] [id number] 15:04:00 15:04:00 t Forever His Transport s Viewpoints [facility] l Medicine Outpati ent Clinics 2019-10-29 2019-10-29 [facility] [id number] 08:06:00 08:06:00 t Forever His [employer] s Viewpoints [facility] l Medicine Outpati ent Clinics 2019-10-22 2019-10-22 [facility] [id number] 12:23:00 12:23:00 t Forever [employer] s Viewpoints [facility] Medicine l Medicine Outpati ent Clinics 2019-10-18 2019-10-18 [facility] [id number] 14:30:00 14:30:00 t Forever [employer] s Viewpoints [facility] Medicine Medicine Outpati ent Clinics 2019-09-20 2019-09-20 [facility] [id number] 09:00:00 09:00:00 t Forever His Transport s Viewpoints [facility] Medicine Outpati ent Clinics Results Test Description Test Time Test Comments Results Result Sourc e Comments THYROID IMAGING 2019-11-09 FINAL REPORT PATIENT W/ UPTAKE, 09:03:00 ID: [id number] MULTIPLE PROCEDURE: THYROID SCAN AND UPTAKES CPT CODE: [id number] INDICATION: Hyperthyroidism PROTOCOL: 0.238 mCi of I-123 [...] Hi Verified Date/Time: 11/09/2019 09:03:02 Reading Location: [address] Reading Room thyroid uptake 2019-11-09 Interface, External [facility] and scan-24 only 09:03:00 Ris In - 11/09/2019 - [facility]05 [facility] PROCEDURE: THYROID SCAN AND UPTAKES CPT CODE: [id number] INDICATION: Hyperthyroidism PROTOCOL: 0.238 mCi of I-123 [...] Hi Verified Date/Time: 11/09/2019 09:03:02 Reading Location: [address] [email or web address] [facility] Reading Room
[2020-08-21] MEDS ORDERED: ASPIRIN 81 MG CHEWABLE TABLET ONE (00:45)
[2020-08-21] MEDS ORDERED: NA CHLORIDE 0.9% 1,000 ML ONE (00:46)
[2020-08-21 01:11] LABS: Absolute Lymphocytes (CBC) 2.3 K/uL (0.7-4.9); Hematocrit 43.2 % (36.0-45.0); Lymphocytes % 20.5 % (15.3-44.8); MPV 8.1 fL (7.6-11.3); RBC Red Blood Cell Count 4.94 M/uL (3.86-4.86)
[2020-08-21 01:27] LABS: Protime INR 1.03
[2020-08-21 01:28] LABS: ALT/SGPT 27 U/L (12-78); AST/SGOT 13 U/L (15-37); Albumin 3.6 g/dL (3.4-5.0); Alkaline Phosphatase 150 U/L (45-117); BUN Blood Urea Nitrogen 13 mg/dL (7-18); Bicarbonate 30 mmol/L (21-32); Bilirubin Direct < 0.1 mg/dL (0-0.2); Bilirubin Total 0.3 mg/dL (0.2-1.0); Glucose Level 97 mg/dL (74-106); Lipase 139 U/L (73-393); Magnesium 2.1 mg/dL (1.8-2.4); NT PRO-BNP 41 pg/mL (<125); Potassium 3.3 mmol/L (3.5-5.1); Protein, Total 7.4 g/dL (6.4-8.2); Sodium Level 140 mmol/L (136-145); Troponin (Emerg Dept Use Only) 0.02 ng/mL (0.0-0.045)
[2020-08-21] MEDS ORDERED: MORPHINE 4 MG/ML SYR ONE (02:38)
[2020-08-21] MEDS ORDERED: POTASSIUM 25 MEQ EFFERV TAB ONE (02:39)
[2020-08-21] MEDS ORDERED: ONDANSETRON 4 MG/2 ML VIAL ONE (02:39)
--- NOTE | 2020-08-21 03:45 | ER ---
Nurse's Notes [facility] Name: Skye Figueroa Age: 45 yrs Sex: Female : 1975 Arrival Date: 08/20/2020 Time: 23:42 Bed 24 Private MD: Sunil Mccall Diagnosis: Chest pain, unspecified;Thyrotoxicosis [hyperthyroidism];Hypokalemia Presentation: 08/20 23:53 Chief complaint: Patient states: I have graves disease and yesterday my blood pressure iw has been low and yesterday I passed out. I saw my Dr today and he changed my propanolol and now I feel like I am having chest spasms. Last time I had blood work my TSH was high so my Dr wanted me to come get checked out. Coronavirus screen: Client denies travel out of the [place] in the last 14 days. At this time, the client does not indicate any symptoms associated with coronavirus-19. Ebola Screen: Patient negative for fever greater than or equal to 101.5 degrees Fahrenheit, and additional compatible Ebola Virus Disease symptoms Patient denies exposure to infectious person. Patient denies travel to an Ebola-affected area in the 21 days before illness onset. Initial Sepsis Screen: Does the patient meet any 2 criteria? No. Patient's initial sepsis screen is negative. Does the patient have a suspected source of infection? No. Patient's initial sepsis screen is negative. Risk Assessment: Do you want to hurt yourself or someone else? Patient reports no desire to harm self or others. Onset of symptoms was August 18, 2018. 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 [facility] 08/17/2020 iw Historical: - Allergies: 08/21 00:00 Naproxen; iw 00:00 tramadol; iw - Home Meds: 00:00 hydrochlorothiazide 25 mg Oral tab 1 tab once daily for Hypertension [Active]; Lyrica iw 75 mg Oral 1 cap 2 times per day for Fibromyalgia [Active]; methimazole 10 mg Oral tab 1 tab once daily [Active]; propranolol 20 mg oral tab [Active]; Singulair 10 mg Oral tab 1 tab once daily [Active]; 00:02 Zoloft 100 mg Oral tab 1 tab once daily [Active]; iw - PMHx: 00:00 BRAIN TUMOR; graves disease; Hydrocephalus; Migraines; Seizures; iw - PSHx: 00:00 Cholecystectomy; Appendectomy; eye surgery; brain tumor removal; evp operations shunt; iw - Immunization history:: Adult Immunizations up to date. - Social history:: Smoking status: Patient denies any tobacco usage or history of. Patient/guardian denies using alcohol, street drugs. Screenin:33 Abuse screen: Denies threats or abuse. Denies injuries from another. Nutritional iw screening: No deficits noted. Tuberculosis screening: No symptoms or risk factors identified. Fall Risk IV access (20 points). Assessment: 00:32 General: Appears in no apparent distress. Behavior is calm, cooperative. Pain: iw Complains of pain in chest Pain does not radiate. Pain began Is intermittent, episodic, lasting a few seconds. Neuro: Level of Consciousness is awake, alert, obeys commands, Oriented to person, place, time, situation, Moves all extremities. Full function. Cardiovascular: Patient's skin is warm and dry. Respiratory: Respiratory effort is even, unlabored, Respiratory pattern is regular, symmetrical. Derm: Skin is intact, is healthy with good turgor. Musculoskeletal: Range of motion: intact in all extremities. 03:43 Reassessment: Patient appears in no apparent distress at this time. Patient and/or iw family updated on plan of care and expected duration. Pain level reassessed. Patient is alert, oriented x 3, equal unlabored respirations, skin warm/dry/pink. Vital Signs: 08/20 23:57 BP 101 / 67; Pulse 84; Resp 17; Temp 98.5; Pulse Ox 97% ; Weight 122.47 kg; Height 5 iw ft. 4 in. (162.56 cm); Pain 8/10; 08/21 03:19 BP 128 / 74; Pulse 74; Resp 16; Pulse Ox 98% on R/A; iw 04:54 BP 109 / 56; Pulse 86; Resp 16 S; Pulse Ox 95% on R/A; Pain 0/10; ad5 08/20 23:57 Body Mass Index 46.34 (122.47 kg, 162.56 cm) iw ED Course: 08/20 23:42 Patient arrived in ED. am4 23:42 Sunil Mccall DO is Private Physician. am4 23:57 Triage completed. iw 23:58 Gallito Navarrete MD is Attending Physician. cj 08/21 00:00 Arm band placed on right wrist. iw 00:01 Hollie Marks, RN is Primary Nurse. iw 00:30 Patient has correct armband on for positive identification. secured entrance monitor on. iw 00:32 Initial lab(s) drawn, by me, sent to lab. Inserted saline lock: 20 gauge in right iw antecubital area, using aseptic technique. Blood collected. Patient maintains SpO2 saturation greater than 95% on room air. 02:13 XRAY Chest (1 view) In Process Unspecified. EDMS 03:19 Troponin (emerg Dept Use Only): 300 am Sent. iw 03:19 No provider procedures requiring assistance completed. iw 03:43 Sunil Mccall DO is Referral Physician. cj 03:43 Neel Sosa MD is Referral Physician. cj 04:57 IV discontinued, intact, bleeding controlled, No redness/swelling at site. Pressure ad5 dressing applied. Administered Medications: 00:29 Drug: NS 0.9% 1000 ml Route: IV; Rate: 125 ml/hr; Site: right antecubital; ad5 04:56 Follow up: IV Status: Completed infusion ad5 00:29 Drug: Aspirin Chewable Tablet 162 mg Route: PO; ad5 04:55 Follow up: Response: No adverse reaction; Pain is decreased ad5 02:30 Drug: morphine 4 mg Route: IVP; Site: right antecubital; iw 04:55 Follow up: Response: No adverse reaction; Pain is decreased ad5 02:30 Drug: Zofran (Ondansetron) 4 mg Route: IVP; Site: right antecubital; iw 04:55 Follow up: Response: No adverse reaction; Nausea is decreased ad5 02:41 Drug: Potassium Effervescent Tablet 50 mEq Route: PO; iw 04:54 Follow up: Response: No adverse reaction ad5 Outcome: 03:44 Discharge ordered by . cj 04:56 Discharged to home ambulatory. ad5 04:56 Condition: stable 04:56 Discharge instructions given to patient, Instructed on discharge instructions, follow up and referral plans. medication usage, Demonstrated understanding of instructions, follow-up care, medications, Prescriptions given X 1. 05:03 Patient left the ED. ad5 Signatures: Dispatcher [employer] EDUT Gallito Navarrete MD MD cha Williams, Irene, RN RN Jennifer Sanders am4 Gonzalo, Shan ad5
--- NOTE | 2020-08-21 03:45 | EDPHYS ---
Physician Documentation [facility] Name: Skye Figueroa Age: 45 yrs Sex: Female : 1975 Arrival Date: 08/20/2020 Time: 23:42 Bed 24 Private MD: Cal [facility] ED Physician Gallito Navarrete HPI: 08/21 00:15 This 45 yrs old Female presents to ER via Ambulatory with complaints of Chest cj Pain, Shortness Of Breath, High Blood Pressure. 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 LMP 08/17/2020 iw Historical: - Allergies: 08/21 00:00 Naproxen; iw 00:00 tramadol; iw - Home Meds: 00:00 hydrochlorothiazide 25 mg Oral tab 1 tab once daily for Hypertension [Active]; Lyrica iw 75 mg Oral 1 cap 2 times per day for Fibromyalgia [Active]; methimazole 10 mg Oral tab 1 tab once daily [Active]; propranolol 20 mg oral tab [Active]; Singulair 10 mg Oral tab 1 tab once daily [Active]; 00:02 Zoloft 100 mg Oral tab 1 tab once daily [Active]; iw - PMHx: 00:00 BRAIN TUMOR; graves disease; Hydrocephalus; Migraines; Seizures; iw - PSHx: 00:00 Cholecystectomy; Appendectomy; eye surgery; brain tumor removal; vp of 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 - Social history:: Smoking status: Patient denies any tobacco usage or history of. Patient/guardian denies using alcohol, street drugs. ROS: 00:16 Constitutional: Negative for fever, chills, and weight loss, Eyes: Negative for injury, cj pain, redness, and discharge, ENT: Negative for injury, pain, and discharge, Neck: Negative for injury, pain, and swelling, Respiratory: Negative for shortness of breath, cough, wheezing, and pleuritic chest pain, Abdomen/GI: Negative for abdominal pain, nausea, vomiting, diarrhea, and constipation, Back: Negative for injury and pain, : Negative for injury, bleeding, discharge, and swelling, MS/Extremity: Negative for injury and deformity, Skin: Negative for injury, rash, and discoloration, Neuro: Negative for headache, weakness, numbness, tingling, and seizure, Psych: Negative for depression, anxiety, suicide ideation, homicidal ideation, and hallucinations, Allergy/Immunology: Negative for hives, rash, and allergies, Endocrine: Negative for neck swelling, polydipsia, polyuria, polyphagia, and marked weight changes. 00:16 Cardiovascular: Positive for chest pain, of the chest. 00:16 MS/extremity: Negative for acute changes. Exam: 00:16 Constitutional: This is a well developed, well nourished patient who is awake, alert, cj and in no acute distress. Head/Face: Normocephalic, atraumatic. Eyes: Pupils equal round and reactive to light, extra-ocular motions intact. Lids and lashes normal. Conjunctiva and sclera are non-icteric and not injected. Cornea within normal limits. Periorbital areas with no swelling, redness, or edema. ENT: Nares patent. No nasal discharge, no septal abnormalities noted. Tympanic membranes are normal and external auditory canals are clear. Oropharynx with no redness, swelling, or masses, exudates, or evidence of obstruction, uvula midline. Mucous membranes moist. Neck: Trachea midline, no thyromegaly or masses palpated, and no cervical lymphadenopathy. Supple, full range of motion without nuchal rigidity, or vertebral point tenderness. No Meningismus. Chest/axilla: Normal chest wall appearance and motion. Nontender with no deformity. No lesions are appreciated. Cardiovascular: Regular rate and rhythm with a normal S1 and S2. No gallops, murmurs, or rubs. Normal PMI, no JVD. No pulse deficits. Respiratory: Lungs have equal breath sounds bilaterally, clear to auscultation and percussion. No rales, rhonchi or wheezes noted. No increased work of breathing, no retractions or nasal flaring. Abdomen/GI: Soft, non-tender, with normal bowel sounds. No distension or tympany. No guarding or rebound. No evidence of tenderness throughout. Back: No spinal tenderness. No costovertebral tenderness. Full range of motion. Skin: Warm, dry with normal turgor. Normal color with no rashes, no lesions, and no evidence of cellulitis. MS/ Extremity: Pulses equal, no cyanosis. Neurovascular intact. Full, normal range of motion. Neuro: Awake and alert, GCS 15, oriented to person, place, time, and situation. Cranial nerves II-XII grossly intact. Motor strength 5/5 in all extremities. Sensory grossly intact. Cerebellar exam normal. Normal gait. Psych: Awake, alert, with orientation to person, place and time. Behavior, mood, and affect are within normal limits. 00:16 Musculoskeletal/extremity: DVT Exam: No signs of deep vein thrombosis. no pain, no swelling, no tenderness, negative Homans' sign noted on exam, no appreciated bluish discoloration, no erythema, no increased warmth. 01:26 ECG was reviewed by the Attending Physician. cj Vital Signs: 08/20 23:57 BP 101 / 67; Pulse 84; Resp 17; Temp 98.5; Pulse Ox 97% ; Weight 122.47 kg; Height 5 iw ft. 4 in. (162.56 cm); Pain 8/10; 08/21 03:19 BP 128 / 74; Pulse 74; Resp 16; Pulse Ox 98% on R/A; iw 04:54 BP 109 / 56; Pulse 86; Resp 16 S; Pulse Ox 95% on R/A; Pain 0/10; ad5 08/20 23:57 Body Mass Index 46.34 (122.47 kg, 162.56 cm) iw MDM: 00:02 Patient medically screened. cj 00:18 Differential diagnosis: abnormal EKG, acute pericarditis, congestive heart failure cj cholecystitis, Cholelithiasis esophagitis, gastroesophageal reflux disease (GERD), hiatal hernia, pancreatitis, pneumonia, pneumothorax, pulmonary embolus, stable angina, unstable angina. HEART Score: History: Slightly Suspicious (0), ECG: Normal (0), Age: < or = 45 years (0), Risk Factors: 1 or 2 risk factors (1), [Hypertension] [+ Family HX]. The patient was given aspirin in the Emergency Department. The patient's deep vein thrombosis risk score was calculated as follows: Total Score: 0. This patient was found to be at low risk for a deep vein thrombosis by using the Well's assessment criteria. The patient's pulmonary embolism risk score was calculated as follows: Total Score: 0-2 points. This patient was found to be at low risk for a pulmonary embolism by using the Well's assessment criteria. AMANDA Risk Score: TOTAL SCORE = 0. Data reviewed: vital signs, nurses notes, lab test result(s), EKG, radiologic studies, plain films. Data interpreted: property assessment monitor: rate is 84 beats/min, rhythm is regular, Pulse oximetry: on room air is 97 %. Test interpretation: by ED physician or midlevel provider: ECG, plain radiologic studies. 08/21 00:06 Order name: Basic Metabolic Panel [facility] 08/21 00:06 Order name: CBC with Diff [facility] 08/21 00:06 Order name: LFT's [facility] 08/21 00:06 Order name: Magnesium [facility] 08/21 00:06 Order name: NT PRO-BNP [facility] 08/21 00:06 Order name: PT-INR [facility] 08/21 00:06 Order name: Troponin (emerg Dept Use Only) [facility] 08/21 00:06 Order name: TSH [facility] 08/21 00:06 Order name: Lipase [facility] 08/21 00:16 Order name: D-Dimer [facility] 08/21 01:15 Order name: CBC with Automated Diff; Complete Time: 01:22 [facility] 08/21 01:31 Order name: Basic Metabolic Panel; Complete Time: 02:07 [facility] 08/21 01:31 Order name: Liver (Hepatic) Function; Complete Time: 02:07 [facility] 08/21 01:31 Order name: Troponin (Emerg Dept Use Only); Complete Time: 02:07 [facility] 08/21 00:06 Order name: XRAY Chest (1 view) [facility] 08/21 00:06 Order name: EKG; Complete Time: 00:08 [facility] 08/21 00:06 Order name: Cardiac monitoring; Complete Time: 00:45 [facility] 08/21 01:31 Order name: NT PRO-BNP; Complete Time: 02:07 [facility] 08/21 01:31 Order name: Magnesium; Complete Time: 02:07 [facility] 08/21 01:31 Order name: Lipase; Complete Time: 02:07 [facility] 08/21 01:31 Order name: Thyroid Stimulating Hormone; Complete Time: 02:07 [facility] 08/21 01:32 Order name: Protime (+INR); Complete Time: 01:35 [facility] 08/21 01:32 Order name: D-Dimer; Complete Time: 01:35 [facility] 08/21 01:37 Order name: Troponin (emerg Dept Use Only): 300 am; Complete Time: 03:50 [facility] 08/21 01:45 Order name: T4 Free; Complete Time: 02:07 [facility] 08/21 00:06 Order name: EKG - Nurse/Tech; Complete Time: 00:45 [facility] 08/21 00:06 Order name: IV Saline Lock; Complete Time: 00: [facility] 08/21 00:06 Order name: Labs collected and sent; Complete Time: 00: [facility] 08/21 00:06 Order name: O2 Per Protocol; Complete Time: 00:45 [facility] 08/21 00:06 Order name: O2 Sat Monitoring; Complete Time: 00:45 [facility] EC:26 Rate is 68 beats/min. Rhythm is regular. QRS [place] is Normal. [place] interval is normal. QRS cj interval is normal. QT interval is normal. No Q waves. T waves are Normal. No ST changes noted. Clinical impression: NSR w/ Non-specific ST/T Changes and No evidence of ischemia. Interpreted by me. Reviewed by me. Administered Medications: 00:29 Drug: NS 0.9% 1000 ml Route: IV; Rate: 125 ml/hr; Site: right antecubital; ad5 04:56 Follow up: IV Status: Completed infusion ad5 00:29 Drug: Aspirin Chewable Tablet 162 mg Route: PO; ad5 04:55 Follow up: Response: No adverse reaction; Pain is decreased ad5 02:30 Drug: morphine 4 mg Route: IVP; Site: right antecubital; iw 04:55 Follow up: Response: No adverse reaction; Pain is decreased ad5 02:30 Drug: Zofran (Ondansetron) 4 mg Route: IVP; Site: right antecubital; iw 04:55 Follow up: Response: No adverse reaction; Nausea is decreased ad5 02:41 Drug: Potassium Effervescent Tablet 50 mEq Route: PO; iw 04:54 Follow up: Response: No adverse reaction ad5 Disposition: 08/21/20 03:44 Discharged to Home. Impression: Chest pain, unspecified, Thyrotoxicosis [hyperthyroidism], Hypokalemia. - Condition is Stable. - Discharge Instructions: Nonspecific Chest Pain, Chest Wall Pain, Potassium Content of Foods, Chest Wall Pain, [id number], Nonspecific Chest Pain, [id number], Aspirin and Your Heart, Hypokalemia. - Prescriptions for Pepcid 20 mg Oral Tablet - take 1 tablet by ORAL route every 12 hours for 10 days; 20 tablet. - Medication Reconciliation Form, Thank You Letter, Antibiotic Education, Prescription Opioid Use form. - Follow up: Sunil Mccall; When: 2 - 3 days; Reason: Recheck today's complaints, Continuance of care, Re-evaluation by your physician. Follow up: Neel Sosa; When: 2 - 3 days; Reason: Recheck today's complaints, Re-evaluation by your physician. - Problem is new. - Symptoms have improved. Signatures: Dispatcher [employer] EDMS Gallito Navarrete MD MD cha Williams, Irene, RN RN iw Davidson, Andrea ad5 Corrections: (The following items were deleted from the chart) 05:03 03:44 08/21/2020 03:44 Discharged to Home. Impression: Chest pain, unspecified; ad5 Thyrotoxicosis [hyperthyroidism]; Hypokalemia. Condition is Stable. Discharge Instructions: Nonspecific Chest Pain, Chest Wall Pain, Chest Wall Pain, [id number], Nonspecific Chest Pain, Iwry-[id number], Aspirin and Your Heart, Potassium Content of Foods, Hypokalemia. Prescriptions for Pepcid 20 mg Oral Tablet - take 1 tablet by ORAL route every 12 hours for 10 days; 20 tablet. and Forms are Medication Reconciliation Form, Thank You Letter, Antibiotic Education, Prescription Opioid Use. Follow up: Sunil Mccall; When: 2 - 3 days; Reason: Recheck today's complaints, Continuance of care, Re-evaluation by your physician. Follow up: Neel Sosa; When: 2 - 3 days; Reason: Recheck today's complaints, Re-evaluation by your physician. Problem is new. Symptoms have improved. cj
[2020-08-21 05:13] VITALS: TEMP 98.5
[2020-08-21 05:16] VITALS: BP 109/56; O2SAT 95
--- NOTE | 2020-08-21 07:23 | RAD REPORT ---
EXAM DESCRIPTION: [facility] Single View08/21/2020 12:26 am CLINICAL HISTORY: Chest pain COMPARISON: June 2020 FINDINGS: The lungs appear clear of acute infiltrate. The heart is normal size IMPRESSION: No acute abnormalities displayed
== END 2020-08-21 05:03 | disposition home or self-care (01) ==
LOC: ER 23:37
DX: E05.90 Thyrotoxicosis, unspecified without thyrotoxic crisis or storm (principal); E87.6 Hypokalemia; I10 Essential (primary) hypertension; Z98.2 Presence of cerebrospinal fluid drainage device; Z88.5 Allergy status to narcotic agent
CPT/HCPCS: 96361; 93005; 85025; 80048; 36415; 83735; 85610; 85379; 80076; 84443; 84484 ×2; 84439; 83690; 83880; 71045; 96375; 96374; 99285; J7030; J2405

== ENCOUNTER 2021-01-25 22:04 | Emergency (ER) | payer OTHER ==
[2021-01-25 22:53] LABS: Hematocrit 41.8 % (36.0-45.0); Lymphocytes % 26.7 % (15.3-44.8); MPV 7.6 fL (7.6-11.3); RBC Red Blood Cell Count 4.74 M/uL (3.86-4.86)
[2021-01-25 23:00] LABS: Protime INR 0.94
[2021-01-25 23:05] LABS: Urine Blood Trace-intact (Negative); Urine Glucose Negative (Negative); Urine Protein Negative (Negative); Urine Specific Gravity 1.025 (1.005-1.030)
[2021-01-25 23:17] LABS: ALT/SGPT 29 U/L (12-78); AST/SGOT 15 U/L (15-37); Albumin 3.6 g/dL (3.4-5.0); Alkaline Phosphatase 148 U/L (45-117); BUN Blood Urea Nitrogen 13 mg/dL (7-18); Bicarbonate 31 mmol/L (21-32); Bilirubin Direct < 0.1 mg/dL (0-0.2); Bilirubin Total 0.3 mg/dL (0.2-1.0); Glucose Level 83 mg/dL (74-106); Magnesium 2.3 mg/dL (1.8-2.4); NT PRO-BNP 245 pg/mL (<125); Potassium 3.7 mmol/L (3.5-5.1); Protein, Total 7.4 g/dL (6.4-8.2); Sodium Level 142 mmol/L (136-145); Troponin (Emerg Dept Use Only) < 0.02 ng/mL (0.0-0.045)
[2021-01-25 23:40] LABS: Barbiturates NEGATIVE (NEGATIVE); Benzodiazepines NEGATIVE (NEGATIVE); Cocaine NEGATIVE (NEGATIVE); METHAMPHETAM NEGATIVE (NEGATIVE); Methadone NEGATIVE (NEGATIVE); Opiates NEGATIVE (NEGATIVE); Phencyclidine NEGATIVE (NEGATIVE); THC Cannibis NEGATIVE (NEGATIVE)
[2021-01-26 00:01] LABS: SARS-COV-2 RT PCR NEGATIVE (NEGATIVE)
[2021-01-26] MEDS ORDERED: MORPHINE 4 MG/ML SYR ONE (00:22)
[2021-01-26] MEDS ORDERED: ONDANSETRON 4 MG/2 ML VIAL ONE (00:22)
--- NOTE | 2021-01-26 02:53 | ER ---
Nurse's Notes [facility] Name: Skye Figueroa Age: 46 yrs Sex: Female : 1975 Arrival Date: 01/25/2021 Time: 22:06 Bed 20 Private MD: Diagnosis: Palpitations;Chest pain, unspecified Presentation: 01/25 22:17 Chief complaint: Patient states: had low BP at home, 76/58, reports palpitations and em dizziness, also reports chest pain, hx of graves disease. Coronavirus screen: Vaccine status: Patient reports being unvaccinated. Ebola Screen: Patient negative for fever greater than or equal to 101.5 degrees Fahrenheit, and additional compatible Ebola Virus Disease symptoms Patient denies exposure to infectious person. Patient denies travel to an Ebola-affected area in the 21 days before illness onset. No symptoms or risks identified at this time. Initial Sepsis Screen: Does the patient meet any 2 criteria? No. Patient's initial sepsis screen is negative. Does the patient have a suspected source of infection? No. Patient's initial sepsis screen is negative. Risk Assessment: Do you want to hurt yourself or someone else? Patient reports no desire to harm self or others. Onset of symptoms was January 25, 2021. 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 - Social history:: Smoking status: Patient denies any tobacco usage or history of. Screenin:00 Abuse screen: Denies threats or abuse. Denies injuries from another. Nutritional mr2 screening: No deficits noted. Tuberculosis screening: No symptoms or risk factors identified. Fall Risk Assessment: 23:00 Pain: Complains of pain in chest Pain does not radiate. mr2 Vital Signs: 22:17 BP 131 / 78; Pulse 66; Resp 18; Temp 98.6; Pulse Ox 99% on R/A; Weight 120.2 kg; Height em 5 ft. 4 in. (162.56 cm); Pain 8/10; 01/26 03:03 BP 118 / 73; Pulse 55; Resp 18; Pulse Ox 95% ; Pain 0/10; dc2 01/25 22:17 Body Mass Index 45.49 (120.20 kg, 162.56 cm) ED Course: 01/25 22:06 Patient arrived in ED. 22:20 Triage completed. em 22:20 Arm band placed on. em 22:21 Alexander Amezcua MD is Attending Physician. [facility] 22:24 Inserted saline lock: 20 gauge in right antecubital area, using aseptic technique. dc2 Blood collected. 22:24 Basic Metabolic Panel Sent. dc2 22:24 CBC with Diff Sent. dc2 22:25 LFT's Sent. dc2 22:25 NT PRO-BNP Sent. dc2 22:25 PT-INR Sent. dc2 22:25 Troponin (emerg Dept Use Only) Sent. dc2 22:34 Manas Sanz, CALEB is Primary Nurse. mr2 22:58 XRAY Chest (1 view) In Process Unspecified. EDAK 01/26 02:52 Neel Sosa MD is Referral Physician. [facility] 03:04 IV discontinued, intact, bleeding controlled, No redness/swelling at site. Pressure dc2 dressing applied. Administered Medications: 01/25 22:58 Drug: NS 0.9% 1000 ml Route: IV; Rate: 1000 ml; Site: right antecubital; mr2 01/26 00:01 Drug: Zofran (Ondansetron) 4 mg Route: IVP; Site: right antecubital; mr2 00:02 Drug: morphine 4 mg Route: IVP; Site: right antecubital; mr2 Outcome: 02:52 Discharge ordered by . [facility] 03:05 Discharged to home ambulatory. dc2 03:05 Condition: stable 03:05 Discharge instructions given to patient, Instructed on discharge instructions, follow up and referral plans. Demonstrated understanding of instructions, follow-up care. 03:27 Patient left the ED. dc2 Signatures: Dispatcher [employer] EDAK Eben Bush RN RN Alexander Amezcua MD MD [facility] Megan Peres Manas Sanz RN RN 2 RonitTamika contreras RN RN dc2
--- NOTE | 2021-01-26 02:53 | EDPHYS ---
Physician Documentation [facility] Name: Skye Figueroa Age: 46 yrs Sex: Female : 1975 Arrival Date: 01/25/2021 Time: 22:06 Bed 20 Private MD: ED Physician Alexander Amezcua HPI: 01/25 22:37 This 46 yrs old Female presents to ER via Wheelchair with complaints of mh7 Palpitations, High Blood Pressure - and low. 22:37 The patient presents with a history of heart racing. Context: The symptoms occur at mh7 rest. Onset: The symptoms/episode began/occurred today. Duration: The patient or guardian reports multiple episodes, that are intermittent, that wax and wane, with no pattern. Modifying factors: The symptoms are aggravated by nothing. The symptoms are alleviated by nothing. Associated signs and symptoms: Pertinent positives: chest pain, Low blood pressure, Pertinent negatives: anxiety, cough, fever, nausea, SOB, syncope, near-syncope, unusual stressors, vertigo. Severity of symptoms: At their worst the symptoms were moderate today, in the emergency department the symptoms have improved moderately. The patient has experienced similar episodes in the past, multiple times. 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 - Social history:: Smoking status: Patient denies any tobacco usage or history of. ROS: 22:37 Constitutional: Negative for fever, chills, and weight loss, Eyes: Negative for injury, mh7 pain, redness, and discharge, ENT: Negative for injury, pain, and discharge, Neck: Negative for injury, pain, and swelling, Respiratory: Negative for shortness of breath, cough, wheezing, and pleuritic chest pain, Abdomen/GI: Negative for abdominal pain, nausea, vomiting, diarrhea, and constipation, Back: Negative for injury and pain, : Negative for injury, bleeding, discharge, and swelling, MS/Extremity: Negative for injury and deformity, Skin: Negative for injury, rash, and discoloration, Neuro: Negative for headache, weakness, numbness, tingling, and seizure, Psych: Negative for depression, anxiety, suicide ideation, homicidal ideation, and hallucinations, Allergy/Immunology: Negative for hives, rash, and allergies, Endocrine: Negative for neck swelling, polydipsia, polyuria, polyphagia, and marked weight changes, Hematologic/Lymphatic: Negative for swollen nodes, abnormal bleeding, and unusual bruising. Exam: 22:37 Constitutional: This is a well developed, well nourished patient who is awake, alert, mh7 and in no acute distress. Head/Face: Normocephalic, atraumatic. Eyes: Pupils equal round and reactive to light, extra-ocular motions intact. Lids and lashes normal. Conjunctiva and sclera are non-icteric and not injected. Cornea within normal limits. Periorbital areas with no swelling, redness, or edema. Neck: Trachea midline, no thyromegaly or masses palpated, and no cervical lymphadenopathy. Supple, full range of motion without nuchal rigidity, or vertebral point tenderness. No Meningismus. 22:37 Cardiovascular: Regular rate and rhythm with a normal S1 and S2. No gallops, murmurs, mh7 or rubs. Normal PMI, no JVD. No pulse deficits. Respiratory: Lungs have equal breath sounds bilaterally, clear to auscultation and percussion. No rales, rhonchi or wheezes noted. No increased work of breathing, no retractions or nasal flaring. Abdomen/GI: Soft, non-tender, with normal bowel sounds. No distension or tympany. No guarding or rebound. No evidence of tenderness throughout. Back: No spinal tenderness. No costovertebral tenderness. Full range of motion. Skin: Warm, dry with normal turgor. Normal color with no rashes, no lesions, and no evidence of cellulitis. MS/ Extremity: Pulses equal, no cyanosis. Neurovascular intact. Full, normal range of motion. Neuro: Awake and alert, GCS 15, oriented to person, place, time, and situation. Cranial nerves II-XII grossly intact. Motor strength 5/5 in all extremities. Sensory grossly intact. Cerebellar exam normal. Normal gait. Psych: Awake, alert, with orientation to person, place and time. Behavior, mood, and affect are within normal limits. 22:37 Chest/axilla: Inspection: normal, Palpation: tenderness, that is moderate, of the mid-sternal area, that totally reproduces the patient's complaints, Axilla: are normal, Lymph nodes: lymphadenopathy is not appreciated. Vital Signs: 22:17 BP 131 / 78; Pulse 66; Resp 18; Temp 98.6; Pulse Ox 99% on R/A; Weight 120.2 kg; Height em 5 ft. 4 in. (162.56 cm); Pain 8/10; 01/26 03:03 BP 118 / 73; Pulse 55; Resp 18; Pulse Ox 95% ; Pain 0/10; dc2 01/25 22:17 Body Mass Index 45.49 (120.20 kg, 162.56 cm) em MDM: 02:49 Differential diagnosis: arrythmia, dehydration, stress disorder, Palpitations, chest mh7 pain, chest wall pain. Data reviewed: vital signs, nurses notes, old medical records, lab test result(s), cardiac enzymes, CBC, electrolytes, urinalysis, urine drug screen, EKG, radiologic studies, plain films. Data interpreted: Pulse oximetry: on room air is 99 %. Interpretation: normal. Counseling: I had a detailed discussion with the patient and/or guardian regarding: the historical points, exam findings, and any diagnostic results supporting the discharge/admit diagnosis, lab results, radiology results, the need for outpatient follow up, to return to the emergency department if symptoms worsen or persist or if there are any questions or concerns that arise at home. Response to treatment: the patient's symptoms have resolved after treatment, the patient's blood pressure is in an acceptable range, mental status has returned to baseline, the patient no longer shows bradycardia, the patient is not short of breath, the patient is not tachycardic, the patient's pain is gone, the patient's temperature has normalized. 02:52 Patient medically screened. mh7 01/25 22:21 Order name: Basic Metabolic Panel em 01/25 22:21 Order name: CBC with Diff; Complete Time: 23:02 em 01/25 22: Order name: LFT's; Complete Time: 23:38 em 01/25 22:21 Order name: Magnesium; Complete Time: 23:38 em 01/25 22: Order name: NT PRO-BNP; Complete Time: 23:38 em 01/25 22:21 Order name: PT-INR; Complete Time: 23:24 em 01/25 22:21 Order name: Troponin (emerg Dept Use Only); Complete Time: 23:38 em 01/25 22:21 Order name: Basic Metabolic Panel; Complete Time: 23:38 EDMS 01/25 22:36 Order name: UDS; Complete Time: 23:52 [facility] 01/25 22:53 Order name: Thyroid Stimulating Hormone; Complete Time: 23:38 EDMS 01/25 22:21 Order name: XRAY Chest (1 view) em 01/25 22:21 Order name: EKG; Complete Time: 22:22 em 01/25 22:21 Order name: Cardiac monitoring; Complete Time: 22:24 01/25 22:21 Order name: EKG - Nurse/Tech 01/25 22:21 Order name: IV Saline Lock; Complete Time: 22:24 01/25 22:21 Order name: Labs collected and sent; Complete Time: 22:24 01/25 22:21 Order name: O2 Per Protocol; Complete Time: 22:24 01/25 22:53 Order name: D-Dimer; Complete Time: 23:24 EDMS 01/25 23:04 Order name: Urine Dipstick-Ancillary; Complete Time: 23:24 MS 01/25 23:22 Order name: T4 Free; Complete Time: 23:38 EDMS 01/26 00:01 Order name: COVID-19/FLU A+B; Complete Time: 00:50 EDMS 01/26 01:20 Order name: Troponin (emerg Dept Use Only) [facility] 01/26 01:21 Order name: Troponin (Emerg Dept Use Only); Complete Time: 02:45 EDMS 01/25 22:21 Order name: O2 Sat Monitoring; Complete Time: 22:24 01/25 22:36 Order name: Urine Dipstick-Ancillary (obtain specimen); Complete Time: 23:10 [facility] 01/25 22:36 Order name: Urine Test (obtain specimen); Complete Time: 23:10 [facility] 01/25 22:36 Order name: Orthostatics [facility] Administered Medications: 01/25 22:58 Drug: NS 0.9% 1000 ml Route: IV; Rate: 1000 ml; Site: right antecubital; mr2 01/26 00:01 Drug: Zofran (Ondansetron) 4 mg Route: IVP; Site: right antecubital; mr2 00:02 Drug: morphine 4 mg Route: IVP; Site: right antecubital; mr2 Disposition Summary: 01/26/21 02:52 Discharge Ordered Location: Home [facility] Problem: an acute exacerbation [facility] Symptoms: have improved [facility] Condition: Stable 7 Diagnosis - Palpitations mh7 - Chest pain, unspecified mh7 Followup: [facility] - With: Private Physician - When: 1 - 2 days - Reason: Worsening of condition, Recheck today's complaints, Continuance of care, Re-evaluation by your physician Followup: [facility] - With: Neel Sosa MD - When: 1 - 2 days - Reason: Worsening of condition, Recheck today's complaints Discharge Instructions: - Discharge Summary Sheet [facility] - Palpitations 7 - Chest Wall Pain, Uxrm-sg-Prel 7 - Nonspecific Chest Pain, Adult, [id number]-[id number] [facility] Forms: - Medication Reconciliation Form [facility] - Thank You Letter [facility] - Antibiotic Education [facility] - Prescription Opioid Use [facility] Signatures: Dispatcher [employer] EDMS Eben Bush RN RN Alexander Mcmahon MD MD 7 Manas Sanz RN RN mr2 Corrections: (The following items were deleted from the chart) 01/25 22:53 22:37 THYROID STIMULAT HORMONE+C.LAB.BRZ ordered. EDAK EDMS 22:53 22:37 D-DIMER+COAG.LAB.BRZ ordered. EDAK EDMS 23:07 22:37 Influenza Screen (A \T\ B)+BA.LAB.BRZ ordered. EDAK EDMS 23:08 22:37 CORONAVIRUS+MR.LAB.BRZ ordered. EDAK EDMS 01/26 01:26 01/25 22:37 Constitutional: This is a well developed, well nourished patient who is 7 awake, alert, and in no acute distress. Head/Face: Normocephalic, atraumatic. Eyes: Pupils equal round and reactive to light, extra-ocular motions intact. Lids and lashes normal. Conjunctiva and sclera are non-icteric and not injected. Cornea within normal limits. Periorbital areas with no swelling, redness, or edema. Neck: Trachea midline, no thyromegaly or masses palpated, and no cervical lymphadenopathy. Supple, full range of motion without nuchal rigidity, or vertebral point tenderness. No Meningismus. Chest/axilla: Normal chest wall appearance and motion. Nontender with no deformity. No lesions are appreciated. Cardiovascular: Regular rate and rhythm with a normal S1 and S2. No gallops, murmurs, or rubs. Normal PMI, no JVD. No pulse deficits. Respiratory: Lungs have equal breath sounds bilaterally, clear to auscultation and percussion. No rales, rhonchi or wheezes noted. No increased work of breathing, no retractions or nasal flaring. Abdomen/GI: Soft, non-tender, with normal bowel sounds. No distension or tympany. No guarding or rebound. No evidence of tenderness throughout. Back: No spinal tenderness. No costovertebral tenderness. Full range of motion. Skin: Warm, dry with normal turgor. Normal color with no rashes, no lesions, and no evidence of cellulitis. MS/ Extremity: Pulses equal, no cyanosis. Neurovascular intact. Full, normal range of motion. Neuro: Awake and alert, GCS 15, oriented to person, place, time, and situation. Cranial nerves II-XII grossly intact. Motor strength 5/5 in all extremities. Sensory grossly intact. Cerebellar exam normal. Normal gait. Psych: Awake, alert, with orientation to person, place and time. Behavior, mood, and affect are within normal limits. mh7
[2021-01-26 03:33] VITALS: TEMP 98.6
[2021-01-26 03:34] VITALS: BP 118/73; O2SAT 95
--- NOTE | 2021-01-26 08:46 | RAD REPORT ---
EXAM DESCRIPTION: RAD - Chest Single View - 01/25/2021 10:58 pm CLINICAL HISTORY: CHEST PAIN Chest pain. COMPARISON: Chest Single View dated 08/21/2020; Chest Single View dated 06/10/2020; Chest Single View d ated 06/02/2020; Chest Single View dated 01/15/2020 FINDINGS: Portable technique limits examination quality. Mild interstitial prominence likely represents mild interstitial pulmonary edema or volume overload. The heart is upper limit of normal in size. Right-sided shunt tubing noted.
== END 2021-01-26 03:27 | disposition home or self-care (01) ==
LOC: ER 22:04
DX: R00.2 Palpitations (principal); R07.9 Chest pain, unspecified; Z88.6 Allergy status to analgesic agent; Z20.822 Contact with and (suspected) exposure to COVID-19
CPT/HCPCS: 93005; 85025; 80048; 36415; 83735; 85610; 85379; 80076; 84443; 81003; 84484 ×2; 84439; 83880; 0240U; 80307; 71045; 96375; 96374; 99284

== ENCOUNTER 2021-02-13 12:11 | Emergency (ER) | payer OTHER ==
--- NOTE | 2021-02-13 13:29 | EDPHYS ---
Physician Documentation [facility] Name: Skye Figueroa Age: 46 yrs Sex: Female : 1975 Arrival Date: 02/13/2021 Time: 12:12 Bed 6 Private MD: Cal [facility]ly [facility] ED Physician Rigo Espino HPI: 02/13 13:25 This 46 yrs old Female presents to ER via Ambulatory with complaints of kb Allergic Reaction, Facial Swelling. 13:25 The patient has not experienced similar symptoms in the past. kb 13:26 The patient presents with broken tooth/teeth, pain, redness, swelling. The problem is kb located in the upper left third molar (#16) and upper left second molar (#15). Onset: The symptoms/episode began/occurred 4 day(s) ago. Duration: The symptoms are continuous. Modifying factors: The symptoms are alleviated by nothing, the symptoms are aggravated by nothing. Associated signs and symptoms: Pertinent positives: pain, redness in area, swelling. Severity of symptoms: At their worst the symptoms were moderate, in the emergency department the symptoms are unchanged. The patient has been recently seen by a physician: a dentist, in the office, yesterday, with similar presenting complaints, and apparently given a diagnosis of dental abscess, was given a prescription for antibiotics. Pt states she developed some swelling after a tooth broke. States she went to the dentist yesterday and was told he couldn't pull the tooth until the infection was down. Started Clindamycin last night, but swelling is worse today so she came in. . 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 kb 13:24 ENT: Positive for Teeth pain 13:24 Skin: Positive for swelling, of the left cheek. 13:24 All other systems are negative. Exam: 13:24 Constitutional: This is a well developed, well nourished patient who is awake, alert, kb and in no acute distress. Head/Face: Normocephalic, atraumatic. Respiratory: Respirations even and unlabored. No increased work of breathing, no retractions or nasal flaring. Skin: Warm, dry with normal turgor. Normal color. MS/ Extremity: Pulses equal, no cyanosis. Neurovascular intact. Full, normal range of motion. Neuro: Awake and alert, GCS 15, oriented to person, place, time, and situation. Moves all extremities. Normal gait. Psych: Awake, alert, with orientation to person, place and time. Behavior, mood, and affect are within normal limits. 13:24 ENT: Dental exam: dental caries, gum swelling, that is moderate, specifically in the upper left second molar (#15) and upper left third molar (#16), pain, that is moderate. 13:24 Skin: Appearance: normal except for affected area, swelling, noted on the left cheek, that are moderate. Vital Signs: 12:42 BP 137 / 63; Pulse 63; Resp 16; Pulse Ox 94% on R/A; Height 5 ft. 4 in. (162.56 cm); ss Pain 8/10; MDM: 12:36 Patient medically screened. kb 13:22 Data reviewed: vital signs, nurses notes. Data interpreted: Pulse oximetry: on room air kb is 94 %. Interpretation: normal. Counseling: I had a detailed discussion with the patient and/or guardian regarding: the historical points, exam findings, and any diagnostic results supporting the discharge/admit diagnosis, the need for outpatient follow up, a dentist, to return to the emergency department if symptoms worsen or persist or if there are any questions or concerns that arise at home. Administered Medications: 13:40 Drug: SOLU-Medrol (methylPREDNISolone sodium succinate) 125 mg Route: IM; Site: right tw2 ventrogluteal; 13:48 Follow up: Response: No adverse reaction tw2 13:40 Drug: Augmentin (Amoxicillin-Clavulanate) 875 mg Route: PO; tw2 13:48 Follow up: Response: No adverse reaction tw2 Disposition: 14:20 Co-signature as Attending Physician, Rigo Espino MD I agree with the assessment and kdr plan of care. Disposition Summary: 02/13/21 13:28 Discharge Ordered Location: Home kb Condition: Stable kb Diagnosis - Periapical abscess without sinus kb Followup: kb - With: Private Physician - When: 2 - 3 days - Reason: Recheck today's complaints, Continuance of care, Re-evaluation by your physician Followup: kb - With: Emergency Department - When: As needed - Reason: Worsening of condition Discharge Instructions: - Discharge Summary Sheet kb - Dental Pain, [id number]-[id number] kb - Dental Abscess, Yeml-[id number]-Iuyk kb Forms: - Medication Reconciliation Form kb - Thank You Letter kb - Antibiotic Education kb - Prescription Opioid Use kb Prescriptions: - Augmentin 875-125 mg Oral Tablet - take 1 tablet by ORAL route every 12 hours for 10 days; 20 tablet; Refills: 0, kb Product Selection Permitted Signatures: Mattie Mi, BERHANE BRUMFIELD-Rigo Medina MD MD [facility] Raquel Watson RN RN ss Deonna Monterroso RN RN tw2 Corrections: (The following items were deleted from the chart) 13:28 13:25 The patient has not recently seen a physician, kb braden 13:28 13:25 The patient presents with kb kb
--- NOTE | 2021-02-13 13:29 | ER ---
Nurse's Notes [facility] Name: Skye Figueroa Age: 46 yrs Sex: Female : 1975 Arrival Date: 02/13/2021 Time: 12:12 Bed 6 Private MD: Sunil Mccall Diagnosis: Periapical abscess without sinus Presentation: 02/13 12:38 Chief complaint: Patient states: L sided facial swelling that began this morning. Pt ss was seen at this dentist yesterday and told to take Clindamycin prior to having tooth extracted. Coronavirus screen: Client denies travel out of the [place] in the last 14 days. Ebola Screen: Patient denies exposure to infectious person. Patient denies travel to an Ebola-affected area in the 21 days before illness onset. Onset: The symptoms/episode began/occurred this morning. Anaphylaxis evaluation, no signs or symptoms of anaphylaxis were noted. Initial Sepsis Screen: Does the patient have a suspected source of infection? Yes: Other: dental. Initial Sepsis Screen: Does the patient meet any 2 criteria? No. Patient's initial sepsis screen is negative. Risk Assessment: Do you want to hurt yourself or someone else? Patient reports no desire to harm self or others. Onset of symptoms was February 12, 2021. 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 Nutritional screening: No deficits noted. tw2 Tuberculosis screening: No symptoms or risk factors identified. Fall Risk None identified. Assessment: 12:33 General: Appears in no apparent distress. Behavior is calm, cooperative, appropriate tw2 for age. Pain: Complains of pain in upper left third molar (#16) and upper left second molar (#15). Neuro: Level of Consciousness is awake, alert, obeys commands, Oriented to person, place, time, situation. Respiratory: Airway is patent Respiratory effort is even, unlabored, Respiratory pattern is regular, symmetrical. EENT: Reports pain in upper left second molar (#15) and upper left third molar (#16). 13:48 Reassessment: Patient appears in no apparent distress at this time. No changes from tw2 previously documented assessment. Patient and/or family updated on plan of care and expected duration. Pain level reassessed. Patient is alert, oriented x 3, equal unlabored respirations, skin warm/dry/pink. Vital Signs: 12:42 BP 137 / 63; Pulse 63; Resp 16; Pulse Ox 94% on R/A; Height 5 ft. 4 in. (162.56 cm); ss Pain 8/10; ED Course: 12:12 Patient arrived in ED. as 12:12 Sunil Mccall DO is Private Physician. as 12:33 Bed in low position. Call light in reach. Pulse ox on. NIBP on. tw2 12:36 Mattie Mi FNP-C is PSYCHIATRICP. kb 12:36 Rigo Espino MD is Attending Physician. kb 12:41 Triage completed. ss 12:41 Arm band placed on right wrist. ss 13:21 Ayla David, CALEB is Primary Nurse. ll3 13:48 Primary Nurse role handed off by Ayla David RN tw2 13:48 Deonna Monterroso, CALEB is Primary Nurse. tw2 13:48 No provider procedures requiring assistance completed. Patient did not have IV access tw2 during this emergency room visit. Administered Medications: 13:40 Drug: SOLU-Medrol (methylPREDNISolone sodium succinate) 125 mg Route: IM; Site: right tw2 ventrogluteal; 13:48 Follow up: Response: No adverse reaction tw2 13:40 Drug: Augmentin (Amoxicillin-Clavulanate) 875 mg Route: PO; tw2 13:48 Follow up: Response: No adverse reaction tw2 Outcome: 13:28 Discharge ordered by . kb 13:48 Patient left the ED. tw2 13:48 Discharged to home ambulatory. tw2 13:48 Condition: stable 13:48 Discharge instructions given to patient, Instructed on discharge instructions, follow up and referral plans. medication usage, Demonstrated understanding of instructions, follow-up care, medications, Prescriptions given X 1. Signatures: Mattie Mi FNP-C FNP-Dania Wyatt Shelby RN RN ss Monterroso, Deonna, RN RN tw2 Ayla David, RN RN ll3
[2021-02-13] MEDS ORDERED: METHYLPREDNISOLONE 125 MG INJ ONE (13:34)
[2021-02-13] MEDS ORDERED: AMOX/K CLAV 875 MG TAB ONE (13:35)
[2021-02-13 15:00] VITALS: BP 137/63; O2SAT 94
--- OUTSIDE RECORDS SUMMARY | 2021-02-14 22:40 | XMS REPORT | Continuity of Care Document ---
:[address] [facility] t Address [address] [place] [address] Care Team Providers Name Role Phone MCCALL MANJINDER MATT Primary Care Physician Unavailable SALENA, K.H. Attending Clinician Unavailable Kenneth BRAMBILA Attending Clinician Unavailable Kosta NAVARRETE S Attending Clinician Doctor Unassigned, Name Attending Clinician Unavailable Salena HAHN, K.H. Attending Clinician Ramses Cool MD Attending Clinician CHEMA Attending Clinician Unavailable Payers Payer Name Policy Type Policy Number Effective Date Expiration Date S ource [facility] [place] STAR [id number] 2019 00:00:00 PLUS WILFREDO [facility] STAR [id number] 2019 00:00:00 PLAN Problems Condition Condition Condition Status Onset Resolution Last Treating Co mments Source Name Details Category Date Date Treatment Clinician Date Immune to Immune to Disease Active Uni vers varicella varicella 6- ity of 00:00: [place] [address] Medical Branch BMI BMI Disease Active Univers 45.0-49.9, 45.0-49.9, 6-28 it y of adult adult 00:00: [place] 00 Medical Branch Excessive Excessive Disease Active Uni vers or or 6-21 ity of frequent frequent 00:00: [place] menstruati menstruati 00 Me dical on on Branch Knee pain, Knee pain, Disease Active U nivers left left 4-05 ity of 00:00: [place] 00 Medical Branch No known No known Disease [facility] problems problems of Medicin e Allergies, Adverse Reactions, Alerts Allergy Allergy Status Severity Reaction(s) Onset Inactive Treating Comm ents Source Name Type Date Date Clinician Tramadol Propensi Active Hallucinatio [facility] ty to 8-14 [place] adverse 00:00: of reaction 00 Medicin s to e drug Tramadol Propensi Active Hallucinatio [facility] ty to ns 814 ity of adverse 00:00: [place] reaction 00 Medical s Branch TRAMADOL DRUG Active Hallucinates Un vale INGREDI 11-15 ity of 00:00: [place] 00 Medical Branch Social History Social Habit Start Date Stop Date Quantity Comments Source Exposure to Not sure University of SARS-CoV-2 [place] Medical (event) Branch History [facility] ge of Alcohol Std Medicine Drinks History [facility] ge of Alcohol Binge Medicine Tobacco use and 2020-03-27 2020-03-27 Never used [facility] llege of exposure 00:00:00 00:00:00 Medicine Alcohol intake 2020-03-27 2020-03-27 Current drinker [facility] of 00:00:00 00:00:00 of alcohol Medicine (finding) History [facility] 2019-11-22 2019-11-22 3 [facility] ge of Alcohol Frequency 00:00:00 00:00:00 Medicin e Sex [birth year] [facility] llege of 00:00:00 00:00:00 Medicine Smoking Status Start Date Stop Date Source Never smoker [facility] o f Medicine Medications Ordered Filled Start Stop Current Ordering Indication Dosage Frequency Signature Comments Components Source Medication Medication Date Date Medication? Clinician (SIG) Name Name ketorolac 2020-04- No 60mg 60 mg, Unive rs (TORADOL) 04-12 Intramuscu ity of injection 05:30: 05:30 lar, ONCE, [place] 60 mg 00 :00 1 dose, On Medical Mon Branch 02/09/21 at 2330, JOSE LUIS
Fa [facility] member approving Restricted medication : FANNIE BRAMBILA ondansetron 2020-04 No 4mg 4 mg, Univ ers (ZOFRAN-ODT 04-12 Oral, ity of ) 04:15: 03:45 ONCE, 1 [place] disintegrat 00 :00 dose, On Medi orin ing tablet Mon Branch 4 mg 02/09/21 at 2215, Routine ondansetron 2020-04 Yes [id number] 4mg Take 1 Univers (ZOFRAN 1-08 tablet by ity of ODT) 4 mg 00:00: mouth [place] disintegrat 00 every 8 Medic al ing tablet (eight) Branch hours as needed for Nausea and Vomiting (N/V). meclizine 2020-04 Yes [id number] 25mg Take 1 Un vale 25 mg 1-08 tablet by ity of tablet 00:00: mouth [place] 00 every 6 Medical (six) Branch hours. naproxen 2020-04 Yes [id number] 500mg Take 1 Un vale (NAPROSYN) 1-08 tablet by ity of 500 mg 00:00: mouth 2 [place] tablet 00 (two) Medical times Branch daily with meals. methocarbam 2020-04 Yes [id number] 500mg Take 1 Univers oL 500 mg 1-08 tablet by ity o f tablet 00:00: mouth 4 [place] 00 (four) Medical times Branch daily as needed for Pain (scale 4-6). SERTraline 2020-04 Yes 100mg Take 100 Un vale 100 mg 0-26 mg by ity of tablet 08:49: mouth [place] 58 daily. Medical Branch SERTraline 2020-04 Yes 100mg Take 100 Un vale 100 mg 0-26 mg by ity of tablet 08:49: mouth [place] 58 daily. Medical Branch SERTraline 2020-04 Yes 100mg Take 100 Un vale 100 mg 0-26 mg by ity of tablet 08:49: mouth [place] 58 daily. Medical Branch SERTraline 2020-04 Yes 100mg Take 100 Un vale 100 mg 0-26 mg by ity of tablet 08:49: mouth [place] 58 daily. Medical Branch HYDROCHLORO 2020-04 Yes 10mg Take 10 mg Univers THIAZIDE 0-26 by mouth ity of ORAL 08:48: daily. [address] Branch pregabalin 2020-04 Yes Take by Uni vers (LYRICA 0-26 mouth ity of ORAL) 08:48: daily. [address] Branch montelukast 2020-04 Yes 10mg Take 10 mg Univers 10 mg 0-26 by mouth ity of tablet 08:48: daily. [address] sumatriptan 2020-04 Yes Take by Un vale succ/naprox 0-26 mouth as ity of en sod 08:48: needed. [place] (SUMATRIPTA 52 Medical N-NAPROXEN Branch ORAL) propranoloL 2020-04 Yes 10mg Take 10 mg Univers 10 mg 0-26 by mouth 2 ity of tablet 08:48: (two) [place] [address] times Medical daily. Branch HYDROCHLORO 2020-04 Yes 10mg Take 10 mg Univers THIAZIDE 0-26 by mouth ity of ORAL 08:48: daily. [address] pregabalin 2020-04 Yes Take by Uni vers (LYRICA 0-26 mouth ity of ORAL) 08:48: daily. [address] montelukast 2020-04 Yes 10mg Take 10 mg Univers 10 mg 0-26 by mouth ity of tablet 08:48: daily. [address] sumatriptan 2020-04 Yes Take by Un vale succ/naprox 0-26 mouth as ity of en sod 08:48: needed. [place] (SUMATRIPTA Medical N-NAPROXEN Branch ORAL) propranoloL 2020-04 Yes 10mg Take 10 mg Univers 10 mg 0-26 by mouth 2 ity of tablet 08:48: (two) [place] [address] times Medical daily. Branch HYDROCHLORO 2020-04 Yes 10mg Take 10 mg Univers THIAZIDE 0-26 by mouth ity of ORAL 08:48: daily. [address] pregabalin 2020-04 Yes Take by Uni vers (LYRICA 0-26 mouth ity of ORAL) 08:48: daily. [address] montelukast 2020-04 Yes 10mg Take 10 mg Univers 10 mg 0-26 by mouth ity of tablet 08:48: daily. [address] sumatriptan 2020-04 Yes Take by Un vale succ/naprox 0-26 mouth as ity of en sod 08:48: needed. [place] (SUMATRIPTA 52 Medical N-NAPROXEN Branch ORAL) propranoloL 2020-04 Yes 10mg Take 10 mg Univers 10 mg 0-26 by mouth 2 ity of tablet 08:48: (two) [place] 52 times Medical daily. Branch HYDROCHLORO 2020-04 Yes 10mg Take 10 mg Univers THIAZIDE 0-26 by mouth ity of ORAL 08:48: daily. [address] Branch pregabalin 2020-04 Yes Take by Uni vers (LYRICA 0-26 mouth ity of ORAL) 08:48: daily. [address] Branch montelukast 2020-04 Yes 10mg Take 10 mg Univers 10 mg 0-26 by mouth ity of tablet 08:48: daily. [address] Branch sumatriptan 2020-04 Yes Take by Un vale succ/naprox 0-26 mouth as ity of en sod 08:48: needed. [place] (SUMATRIPTA 52 Medical N-NAPROXEN Branch ORAL) propranoloL 2020-04 Yes 10mg Take 10 mg Univers 10 mg 0-26 by mouth 2 ity of tablet 08:48: (two) [place] [address] times Medical daily. Branch methIMAzole 2019-04 Yes 10mg Take 1 Univ ers 10 mg 2-29 tablet by ity of tablet 00:00: mouth. [address] Branch methIMAzole 2019-04 Yes 10mg Take 1 Univ ers 10 mg 2-29 tablet by ity of tablet 00:00: mouth. [address] methIMAzole 2019-04 Yes 10mg Take 1 Univ ers 10 mg 2-29 tablet by ity of tablet 00:00: mouth. [address] Branch methIMAzole 2019-04 Yes 10mg Take 1 Univ ers 10 mg 2-29 tablet by ity of tablet 00:00: mouth. [address] Branch methazolAMI 2019-04 Yes 50mg Take 50 mg [facility] DE 50 MG 2-24 by mouth College TABS 19:13: daily. of 25 Medicin e Pregabalin 2019-04 Yes Take by Quinn esthela (LYRICA OR) 2-24 mouth. Colleg e 19:13: of 10 Medicin e zolpidem 2019-04 Yes 5mg Take 5 mg [facility] (AMBIEN) 5 2-24 by mouth Colle ge MG tablet 19:13: nightly as of 10 needed for Medicin Sleep. e montelukast 2019-04 Yes 10mg Take 10 mg [facility] (SINGULAIR) 2-24 by mouth Mayra ege 10 MG 19:13: daily. of tablet 10 Medicin e propranolol 2019-04 Yes 10mg Take 10 mg [facility] (INDERAL) 2-24 by mouth Colleg e 10 MG 19:13: two times of tablet 10 daily. Medicin e methimazole 0 Yes [id number] 15mg Take 1.5 [facility] (TAPAZOLE) 9-14 Tabs by Colleg e 10 MG 00:00: mouth of tablet 00 daily. Medicin e Propranolol Propranolol 0 Yes Manjinder [address] HCl HCl 9-10 [facility] - 00:[facility]: [facility] atenolol Yes 50mg Take 2 [facility] (TENORMIN) 9-09 Tabs by Rahatg e 25 MG 00:00: mouth of tablet 00 daily. Medicin e Ondansetron Ondansetron Yes Manjinder [address] 8-18 [facility] on the [facility] - 00:00: tongue and Memoria 00 allow to l dissolve Outpati 30 minutes ent prior to Clinics meals Ambien Ambien Yes Manjinder 1 [facility] at bedtime [facility] - as needed [facility] Sumatriptan Sumatriptan Yes Manjinder [address] Succinate Succinate [facility] as needed [facility] Methimazole Methimazole Yes Manjinder [address] [facility] Montelukast Montelukast Yes Manjinder [address] Sodium Sodium [facility] Lyrica Lyrica Yes Manjinder [address] [facility] [facility] Hydrochloro Hydrochloro Yes Manjinder [address] thiazide thiazide [facility] in the Luke s - morning [facility]ics Immunizations Ordered Filled Immunization Date Status Comments Sour e Immunization Name Name Influenza Virus 2020-04-01 Completed Universit y of Vaccine [place] .5 mL 00:00:00 [facility] 6+ MO Branch Influenza Virus 2020-04-01 Completed Universit y of Vaccine [place] .5 mL 00:00:00 [facility] [place] IM 6+ MO Branch Influenza Virus 2020-04-01 Completed Universit y of Vaccine [place] .5 mL 00:00:00 [facility] [place] IM 6+ MO Branch Influenza Virus 2020-04-01 Completed Universit y of Vaccine Quad .5 mL 00:00:00 [facility] 6+ MO Branch TDAP (ADACEL) 2019-10-03 Completed University of VACCINE 00:00:00 [facility] TDAP (ADACEL) 2019-10-03 Completed University of VACCINE 00:00:00 [facility] TDAP (ADACEL) 2019-10-03 Completed University of VACCINE 00:00:00 [facility] TDAP (ADACEL) 2019-10-03 Completed [place] of VACCINE 00:00:00 [facility] Vital Signs Vital Name Observation Time Observation Value Comments Source Systolic blood 2021-02-10 03:01:00 152 mm[Hg] Univer sity of pressure [facility] Diastolic blood 2021-02-10 03:01:00 75 mm[Hg] Unive rsity of pressure [facility] Heart rate 2021-02-10 03:01:00 61 /min [facility] Body temperature 2021-02-10 03:01:[address] [facility] Respiratory rate 2021-02-10 03:01:00 20 /min [facility] Body weight 2021-02-10 03:01:00 136.079 kg [facility] BMI 2021-02-10 03:01:00 51.49 kg/m2 [facility] Oxygen saturation in 2021-02-10 03:01:00 100 /min [facility] Arterial blood by [facility] Pulse oximetry Branch Systolic blood 2021-01-27 13:51:00 110 mm[Hg] Univer sity of pressure [facility] Diastolic blood 2021-01-27 13:51:00 67 mm[Hg] Unive rsity of pressure [facility] Heart rate 2021-01-27 13:51:00 62 /min [facility] Respiratory rate 2021-01-27 13:48:00 19 /min [facility] Body height 2021-01-27 13:48:00 162.6 cm [facility] Body weight 2021-01-27 13:48:00 136.034 kg [facility] BMI 2021-01-27 13:48:00 51.48 kg/m2 [facility] Oxygen saturation in 2021-01-27 13:48:00 93 /min [facility] blood by [facility] Pulse oximetry Branch Systolic blood 2020-03-27 19:08:00 118 mm[Hg] [facility] of pressure Medicine Diastolic blood 2020-03-27 19:08:00 74 mm[Hg] [facility] Medicine Heart rate 2020-03-27 19:08:00 60 /min [facility] ollege of Medicine Respiratory rate 2020-03-27 19:08:00 18 /min [facility] Body height 2020-03-27 19:08:00 162.6 cm [facility] ollege of [facility] Body weight 2020-03-27 19:08:00 130.999 kg [facility] ollege of Medicine BMI 2020-03-27 19:08:00 49.57 kg/m2 [facility] Systolic blood 2020-03-27 19:08:00 118 mm[Hg] [facility] pressure Medicine Diastolic blood 2020-03-27 19:08:00 74 mm[Hg] [facility] Medicine Heart rate 2020-03-27 19:08:00 60 /min [facility] ollege of Medicine Respiratory rate 2020-03-27 19:08:00 18 /min [facility] Body height 2020-03-27 19:08:00 162.6 cm [facility] ollege of [facility] Body weight 2020-03-27 19:08:00 130.999 kg [facility] ollege of Medicine BMI 2020-03-27 19:08:00 49.57 kg/m2 [facility] Procedures Procedure Date / Time Performed Performing Clinician Sourc e CT HEAD WO CONTRAST 2021-02-10 03:42:17 Fannie Brambila [facility] NOTICE OF PRIVACY 2021-02-10 02:58:16 Doctor Unassigned, No Univ [facility] PRACTICES Name Medical Branch CONSENT/REFUSAL FOR 2021-02-10 02:52:19 Doctor Unassigned, No Un [facility] [place] DIAGNOSIS AND Name [facility] Branch TREATMENT Plan of Care Planned Activity Planned Date Details Comments Source Future Scheduled TSH [code = Ordered: [facility] Mayra ege of Test 59024-9] 03/27/2020 Medicine Future Scheduled T4 FREE [code = Ordered: Yared C ollege of Test 3024-7] 03/27/2020 Medicine Future Scheduled T3 [code = 3053-6] Ordered: [facility] [employer] of Test 03/27/2020 Medicine Future Scheduled MAMMOGRAM ANNUAL [facility] College of Test [code = MAMMOGRAM Medicine ANNUAL] Future Scheduled TETANUS SHOT [facility] Mayra ege of Test (ADULT) [code = Medicine TETANUS SHOT (ADULT)] Future Scheduled BMI FOLLOW UP PLAN [facility] r College of Test [code = BMI FOLLOW Medicine UP PLAN] Future Scheduled HEPATITIS C [facility] Mayra ege of Test SCREENING [code = Medicine HEPATITIS C SCREENING] Future Scheduled HIV SCREENING [code [facility] [employer] of Test = HIV SCREENING] Medicine Future Scheduled CERVICAL CANCER [facility] C ollege of Test SCREENING 3 YEAR Medicine FOLLOW UP [code = CERVICAL CANCER SCREENING 3 YEAR FOLLOW UP] Future Scheduled FLU VACCINE > 6 Y[facility] C ollege of Test MONTHS [code = FLU Medicine VACCINE > 6 MONTHS] Encounters Start End Encounter Admission Attending Care Care Encounter Source Date/Time Date/Time Type Type Clinicians Facility Department ID 2021-07-28 2021-07-28 Outpatient R SALENA [facility] [id number] Univers 09:00:00 09:00:00 SENDIL [id number] [facility] 2021-02-12 2021-02-12 ambulatory [facility] [id number] St 00:00:00 00:00:00 [facility] 2021-02-09 2021-02-09 Emergency X KOSTA MOYAAKOV ERT [id number] Univers 21:28:00 23:35:00 [facility] 2021-02-09 2021-02-09 Emergency Kosta MOYAAKOV [id number] Univers 21:28:00 23:35:00 Fannie S BEAMAN [id number] i ty of [place] [id number] [facility] [phone] [address] 2021-02-09 2021-02-09 Orders Doctor LAUREN [id number] Univers 00:00:00 00:00:00 Only Unassigned, NICHOLAS [id number] ity of [facility] [id number] Ronnie as [phone] [facility] 009 [place] 2021-02-05 2021-02-05 [facility] [id number] Univers 14:00:00 14:00:00 SENDIL [id number] [facility] 2021-01-29 2021-01-29 ambulatory [facility]LMLC [facility] [id number] [facility] 2021-01-27 2021-01-27 Office Salena [facility] [id number] Univers 08:24:21 09:10:00 Visit Sendalcira Vu [id number] ity [facility] [id number] [place] Profess[place] [phone] [place]ical [facility] 059 [facility] 2021-01-27 2021-01-27 [facility] [id number] Univers 08:30:00 08:30:00 SENDIL [id number] [facility] 2021-01-27 2021-01-27 Outpatient Tayler MARTINO [facility] [id number] Univers 08:30:00 08:30:00 SENDIL [facility] 2021-01-25 2021-01-25 Outpatient [facility]LMLC [facility] [id number] [facility] 2021-01-22 2021-01-22 Outpatient [facility]MLC [facility] [id number] [facility] 2021-01-19 2021-01-19 Outpatient [facility]MLC [facility] [id number] [facility] 2020-12-10 2020-12-10 Outpatient [facility]MLC [facility] [id number] [facility] 2020-11-21 2020-11-21 Outpatient [facility]MLC [facility] [id number] [facility] 2020-11-18 2020-11-18 Outpatient [facility]MLC [facility] [id number] [facility] 2020-11-05 2020-11-05 Outpatient [facility]MLC [facility] [id number] [facility] 2020-10-30 2020-10-30 Outpatient Tayler MARTINO [facility] [id number] Univers 11:30:00 11:30:00 SENDIL [id number] [facility] 2020-10-30 2020-10-30 Outpatient Tayler MARTINO [facility] [id number] Univers 11:30:00 11:30:00 SENDIL [facility] 2020-10-02 2020-10-02 Outpatient Tayler MARTINO [facility] [id number] Univers 09:00:00 09:00:00 SENDIL [id number] [facility] 2020-09-15 2020-09-15 Outpatient [facility]LMLC [facility] [id number] [facility] 2020-09-04 2020-09-04 Outpatient Tayler MARTINO [facility] [id number] Univers 11:00:00 11:00:00 SENDIL [id number] [facility] 2020-09-04 2020-09-04 Outpatient Tayler MARTINO [facility] [id number] Univers 11:00:00 11:00:00 SENDIL [facility] 2020-08-20 2020-08-20 Outpatient [facility]LMLC [facility] [id number] [facility] 2020-08-19 2020-08-19 Outpatient [facility]MLC [facility] [id number] [facility] 2020-07-15 2020-07-15 Outpatient Tayler SALENA [facility] [id number] Univers 10:00:00 10:00:00 SENDIL [id number] [facility] 2020-07-15 2020-07-15 Outpatient Tayler MARTINO [facility] [id number] Univers 10:00:00 10:00:00 SENDIL [facility] 2020-07-11 2020-07-11 Outpatient [facility]MLC [facility] [id number] [facility] 2020-07-10 2020-07-10 Outpatient [facility]MLC [facility] [id number] [facility] 2020-07-02 2020-07-02 Outpatient [facility]MLC [facility] [id number] [facility] 2020-06-29 2020-06-29 Outpatient [facility]MLC [facility] [id number] [facility] 2020-06-10 2020-06-10 Outpatient [facility]MLC [facility] [id number] [facility] 2020-06-03 2020-06-03 Outpatient [facility]MLC [facility] [id number] [facility] 2020-06-02 2020-06-02 [facility] [id number] 00:00:00 00:00:00 Imani Vu [id number] Yohan [id number] [place] [id number] [facility] 059 [facility] 2020-05-31 2020-05-31 Outpatient STLMLC ST[facility] [id number] [facility] 2020-05-07 2020-05-07 Outpatient STLMLC [facility] [id number] [facility] 00[facility]:00 [facility] l Outpati ent Clinics 2020-05-05 2020-05-05 [facility] [id number] 00:00:00 00:00:00 Sendalcira [place] [id number] [place] [id number] [facility] [id number] nal 059 [facility] 2020-05-02 2020-05-02 [facility] [id number] 08:58:15 23:59:00 Encounter Sendil [facility] [id number] CARE [id number] CENTER AT [id number] DANIELLE [address] [place] [address] 2020-05-02 2020-05-02 Outpatient R [facility] [id number] [facility] 09:00:00 09:00:00 SENDALCIRA howard [facility] 2020-05-02 2020-05-02 [facility] [id number] 08:32:07 08:57:00 Encounter Sendalcira [facility]. SPECIALTY [id number] CARE [id number] CENTER AT [id number] [address] 2020-05-02 2020-05-02 [facility] [id number] 08:31:50 08:31:50 Encounter Sendil [facility] SPECIALTY [id number] CARE [id number] CENTER AT [id number] DANIELLE 805 [facility] 2020-05-02 2020-05-02 [facility] [id number] 08:31:12 08:31:12 Encounter Sendil [facility] SPECIALTY [id number] CARE [id number] CENTER AT [id number] DANIELLE 805 [facility] 2020-04-24 2020-04-24 Outpatient R [facility] [id number] Univers 13:00:00 13:00:00 [id number] [facility] 2020-04-24 2020-04-24 [facility] [id number] Univers 10:30:00 10:30:00 SENDIL [facility] 2020-04-16 2020-04-[address] [id number] 2020-04-11 2020-04-11 Orders Doctor LAUREN [id number] 00:00:00 00:00:00 Only Unassigned, NICHOLAS [id number] [place] [facility] [id number] [id number] 2020-04-08 2020-04-08 [facility]phone [facility] [id number] 00:00:00 00:00:00 Sendil Sheyla Vu [id number] [place] [id number] Professio [phone] [facility]9 [facility] 2020-04-01 2020-04-01 [facility] [id number] Univers 11:00:00 11:00:00 SENDIL [id number] [facility] 2020-04-01 2020-04-01 [facility] [id number] Univers 11:00:00 11:00:00 SENDIL [facility] 2020-04-01 2020-04-[address] [id number] 2020-03-31 2020-03-31 [id number] 2020-03-27 2020-03-27 Office LO Cool [id number] 13:04:09 13:34:09 Visit Pratibha Pearce AMBULATOR [id number] Y [id number] [id number] 2020-03-27 2020-03-27 Office Travon, BCJed [id number] [place] [address] 13:04:09 13:34:09 Visit Pratibha Pearce AMBULATOR [id number] College Y [id number] of [id number] [facility] 310 e 2020-03-24 2020-03-24 Outpatient STLMLC [facility] [id number] [facility] 2020-03-17 2020-03-17 Outpatient [facility]MLC [facility] [id number] [facility] 2020-03-12 2020-03-12 Outpatient [facility]MLC [facility] [id number] [facility] Clinics 2020-03-11 2020-03-11 Outpatient [facility] [id number] [facility] 2020-03-03 2020-03-03 Outpatient [facility] [id number] [facility] 2020-02-14 2020-02-14 Outpatient [facility] [id number] [facility] 2020-02-11 2020-02-11 Outpatient [facility] [id number] [facility] 2020-02-08 2020-02-08 Outpatient [facility] [id number] [facility] 2020-02-01 2020-02-01 Outpatient [facility] [id number] [facility] 16:00[facility]00 [facility]00[facility]00 [id number] 2020-02-01 Outpatient R [facility] [id number] Univers 16:00:00 16:00:00 [facility] 2020-01-30 2020-01-30 Outpatient [facility] [id number] [facility] 2020-01-29 2020-01-29 Outpatient Tayler [place] [facility] [id number] Univers 11:30:00 11:30:00 SENDIL [id number] [facility] 2020-01-29 2020-01-29 Outpatient Tayler MARTINO [facility] [id number] Univers 11:30:00 11:30:00 SENDIL [facility] 2020-01-23 2020-01-23 Outpatient [facility] [id number] [facility] 2020-01-22 2020-01-22 Outpatient [facility] [id number] [facility] 2020-01-15 2020-01-15 Outpatient [facility] [id number] [facility] 2020-01-09 2020-01-09 Outpatient [facility] [id number] [facility] 2020-01-07 2020-01-07 Outpatient [facility] [id number] [facility] 2020-01-03 2020-01-03 Outpatient Tayler BEAR [facility] [id number] Univers 11:15:00 11:15:00 ISAMAR [facility] 2020-01-03 2020-01-03 Outpatient Tayler BEAR [facility] [id number] Univers 11:15:00 11:15:00 ISAMAR [facility] 2020-01-01 2020-01-01 Outpatient Tayler BEAR [facility] [id number] Univers 15:30:00 15:30:00 ISAMAR [id number] [facility] 2020-01-01 2020-01-01 Outpatient Tayler BEAR [facility] [id number] Univers 15:30:00 15:30:00 ISAMAR [facility]y of [facility] 2019-12-19 2019-12-19 [facility] [id number] 16:30:00 16:30:00 [employer] [facility] 2019-12-18 2019-12-18 Outpatient R CHEMA, [facility] [id number] Univers 15:30:00 15:30:00 ISAMAR [id number] [facility] 2019-12-18 2019-12-18 [facility] [id number] 13:33:00 13:33:00 Siine [employer] [facility] 2019-12-18 2019-12-18 Outpatient R [facility] [id number] Univers 10:00:00 10:00:00 [facility] of [facility] 2019-12-13 2019-12-13 Outpatient [place], [facility] [id number] Univers 11:00:00 11:00:00 SENDIL ity of [facility] 2019-12-13 2019-12-13 Outpatient R MARTINO, [facility] [id number] Univers 11:00:00 11:00:00 SENDIL [facility] of [facility] 2019-12-09 2019-12-09 [facility] [id number] 17:43:00 17:43:00 Siine [employer] [facility] 2019-12-04 2019-12-04 Outpatient R BEAR, [facility] [id number] Univers 13:30:00 13:30:00 ISAMAR it[facility] of [facility] 2019-12-04 2019-12-04 Outpatient R BEAR, [facility] [id number] Univers 13:30:00 13:30:00 ISAMAR [facility] of [facility] 2019-11-26 2019-11-26 [facility] [id number] 15:17:00 15:17:00 Siine [employer] [facility] 2019-11-24 2019-11-24 [facility] [id number] 15:24:00 15:24:00 t [place] [employer] [place] [place] [facility] 2019-11-22 2019-11-22 [facility] [id number] [facility] 16:03:00 16:03:00 t [place] [facility] 2019-11-19 2019-11-19 [facility] [id number] [facility] 14:35:00 14:35:00 t [place] [facility] 2019-11-16 2019-11-16 [facility] [id number] [facility] 09:15:00 09:15:00 t [employer] [facility] 2019-11-09 2019-11-09 Outpatient SLSL [facility] [id number] [facility] 00:00:00 00:00:00 2019-11-08 2019-11-08 [facility] [id number] 09:12:00 09:12:00 t [employer] [facility] 2019-11-08 2019-11-08 Outpatient [facility] [id number] [facility] 00:00:00 00:00:00 2019-11-08 2019-11-08 Outpatient EL [facility]SL [facility] [id number] [facility] 00:00:00 00:00:00 2019-11-02 2019-11-02 Outpatient SLSL [facility] [id number] [facility] 00:00:00 00:00:00 2019-11-01 2019-11-01 Outpatient SLSL [facility] [id number] [facility] 00:00:00 00:00:00 2019-11-01 2019-11-01 Outpatient EL [facility]SL [facility] [id number] [facility] 00:00:00 00:00:00 2019-10-30 2019-10-30 [facility] [id number] 17:05:00 17:05:00 t [place] [facility] 2019-10-29 2019-10-29 [facility] [id number] [facility] 15:04:00 15:04:00 [facility] NotesFirst [facility] 2019-10-29 2019-10-29 Outpatient Asher Ashert [id number] 08:06:00 08:06:00 [facility] [employer] [facility] 2019-10-23 2019-10-23 Outpatient Tayler [facility] [id number] Univers 15:00:00 15:00:00 ISAMAR [id number] [facility] 2019-10-23 2019-10-23 [facility] [id number] Univers 15:00:00 15:00:00 ISAMAR [facility] 2019-10-22 2019-10-22 Outpatient Asher Ashert [id number] [facility] 12:23:00 12:23:00 [facility] Out[facility] ent Clin[facility] 2019-10-18 2019-10-18 Outpatient Catalinodiane Ashert [id number] 14:30:00 14:30:00 [facility] Clin[facility] 2019-10-11 2019-10-11 Outpatient Tayler BEAR [facility] [id number] Univers 09:45:00 09:45:00 ISAMAR [id number] [facility] 2019-09-20 2019-09-20 Outpatient Asher Ashert [id number] [facility] 09:00:00 09:00:00 [facility] [place] [facility] Results Test Description Test Time Test Comments Results Result Sour e Comments THYROID IMAGING / 2019-11-09 FINAL REPORT PATIENT UPTAKE, MULTIPLE 09:03:00 ID: [id number] PROCEDURE: THYROID SCAN AND UPTAKES CPT CODE: 40586 INDICATION: Hyperthyroidism PROTOCOL: 0.238 mCi of I-123 [...] MDReport Verified Date/Time: 11/09/2019 09:03:02 Reading Location: [address] Reading Room
== END 2021-02-13 13:48 | disposition home or self-care (01) ==
LOC: ER 12:11
DX: K04.7 Periapical abscess without sinus (principal); E05.00 Thyrotoxicosis with diffuse goiter without thyrotoxic crisis or storm
CPT/HCPCS: 96372; 99283; J2930

== ENCOUNTER 2021-05-14 02:46 | Emergency (ER) | payer OTHER ==
--- OUTSIDE RECORDS SUMMARY | 2021-05-14 02:50 | XMS REPORT | Continuity of Care Document ---
:1975 Author Organization [facility] t Address [address] [place] [address] Care Team Providers Name Role Phone MATT MCCALL Primary Care Physician Unavailable Jed Mccall Attending Clinician Unavailable SALENA, K.H. Attending Clinician Unavailable KOSTA, Kenneth Attending Clinician Unavailable Kosta PAC, S Attending Clinician Doctor Unassigned, Name Attending Clinician Unavailable Salena HAHN, K.H. Attending Clinician Ramses Cool MD Attending Clinician CHEMA Attending Clinician Unavailable KOSTA, S Admitting Clinician Unavailable Payers Payer Name Policy Type Policy Number Effective Date Expiration Date S wilmabarbara [facility] STAR [id number] 2019 00:00:00 PLUS [facility] [id number] 2019 00:00:00 PLAN Problems Condition Condition Condition Status Onset Resolution Last Treating Co mments Source Name Details Category Date Date Treatment Clinician Date Immune to Immune to Disease Active Uni vers varicella varicella 09-30 ity of 00:00: [place] 00 Medical Branch BMI BMI Disease Active Univers 45.0-49.9, 45.0-49.9, 6-28 it y of adult adult 00:00: [place] Medical Branch Excessive Excessive Disease Active Uni vers or or 6-21 ity of frequent frequent 00:00: [place] menstruati menstruati 00 Me dical on on Branch Knee pain, Knee pain, Disease Active U nivers left left 4-05 ity of 00:00: [place] [address] Medical Branch No known No known Disease [facility] problems problems of Medicin e Allergies, Adverse Reactions, Alerts Allergy Allergy Status Severity Reaction(s) Onset Inactive Treating Comm ents Source Name Type Date Date Clinician Tramadol Propensi Active Hallucinatio [facility] ty to 8-14 [place] adverse 00:00: of reaction 00 Medicin s to e drug Tramadol Propensi Active Hallucinatio [facility] ty to ns 8 ity of adverse 00:00: [place] reaction 00 Medical s Branch TRAMADOL DRUG Active Hallucinates Un vale INGREDI 11-15 ity of 00:00: [place] [address] Medical Branch Social History Social Habit Start Date Stop Date Quantity Comments Source Exposure to Not sure [facility] SARS-CoV-2 [place] Medical (event) Branch History [facility] ge of Alcohol Std Medicine Drinks History [facility] ge of Alcohol Binge Medicine Tobacco use and 2020-03-27 2020-03-27 Never used [facility] llege of exposure 00:00:00 00:00:00 Medicine Alcohol intake 2020-03-27 2020-03-27 Current drinker [facility] of 00:00:00 00:00:00 of alcohol Medicine (finding) History [facility] 2019-11-22 2019-11-22 3 [facility] ge of Alcohol Frequency 00:00:00 00:00:00 Medicin e Sex [birth year] [facility] llege of 00:00:00 00:00:00 Medicine Smoking Status Start Date Stop Date Source Never smoker [facility] o f Medicine Medications Ordered [...] Branch 02/09/21 at 2330, JOSE LUIS
[facility] medication : FANNIE BRAMBILA ondansetron 2020-04- No 4mg 4 mg, Univ ers (ZOFRAN-ODT 04-12 Oral, ity of ) 04:15: 03:45 ONCE, 1 [place] disintegrat 00 :00 dose, On Medi orin ing tablet Mon Branch 4 mg 02/09/21 at 2215, Routine ondansetron 2020-04 Yes [id number] 4mg Take 1 Univers (ZOFRAN 1-08 tablet by ity of ODT) 4 mg 00:00: mouth [place] disintegrat 00 every 8 Medic al ing tablet (eight) Branch hours as needed for Nausea and Vomiting (N/V). meclizine 2020-04 Yes [id number] 25mg Take 1 Un vale 25 mg 1-08 tablet by ity of tablet 00:00: mouth [place] 00 every 6 Medical (six) Branch hours. naproxen 2020-04 Yes [id number] 500mg Take 1 Un vale (NAPROSYN) 1-08 tablet by ity of 500 mg 00:00: mouth 2 [place] tablet 00 (two) Medical times Branch daily with meals. methocarbam 2020-04 Yes [id number] 500mg Take 1 Univers oL 500 mg [...] mouth [place] 58 daily. Medical Branch HYDROCHLORO 2020- Yes 10mg Take 10 mg Univers THIAZIDE 0-26 by mouth ity of ORAL 08:48: daily. [address] Branch pregabalin 2020-04 Yes Take by Uni vers (LYRICA 0-26 mouth ity of ORAL) 08:48: daily. [address] montelukast 2020-04 Yes 10mg Take 10 mg Univers 10 mg 0-26 by mouth ity of tablet 08:48: daily. [address] Branch sumatriptan 2020-04 Yes Take by Un vale succ/naprox 0-26 mouth as ity of en sod 08:48: needed. [place] (SUMATRIPTA Medical N-NAPROXEN Branch ORAL) propranoloL 2020-04 Yes 10mg Take 10 mg Univers 10 mg 0-26 by mouth 2 ity of tablet 08:48: (two) [address] Medical daily. Branch HYDROCHLORO 2020-04 Yes 10mg Take 10 mg Univers THIAZIDE 0-26 by mouth ity of ORAL 08:48: daily. [address] pregabalin 2020-04 Yes Take by Uni vers (LYRICA 0-26 mouth ity of ORAL) 08:48: daily. [address] montelukast 2020-04 Yes 10mg Take 10 mg Univers 10 mg 0-26 by mouth ity of tablet 08:48: daily. [address] sumatriptan 2020-04 Yes Take by Un vale succ/naprox 0-26 mouth as ity of en sod 08:48: needed. [place] (SUMATRIPTA Medical N-NAPROXEN Branch ORAL) propranoloL 2020-04 Yes 10mg Take 10 mg Univers 10 mg 0-26 by mouth 2 ity of tablet 08:48: (two) [place] [address] times Medical daily. Branch HYDROCHLORO 2020-04 Yes 10mg Take 10 mg Univers THIAZIDE 0-26 by mouth ity of ORAL 08:48: daily. [address] pregabalin 2020-04 Yes Take by Uni vers (LYRICA 0-26 mouth ity of ORAL) 08:48: daily. [address] montelukast 2020-04 Yes 10mg Take 10 mg Univers 10 mg 0-26 by mouth ity of tablet 08:48: daily. [address] sumatriptan 2020-04 Yes Take by Un vale succ/naprox 0-26 mouth as ity of en sod 08:48: needed. [place] (SUMATRIPTA 52 Medical N-NAPROXEN Branch ORAL) propranoloL 2020-04 Yes 10mg Take 10 mg Univers 10 mg 0-26 by mouth 2 ity of tablet 08:48: (two) [place] [address] times Medical daily. Branch HYDROCHLORO 2020-04 Yes 10mg Take 10 mg Univers THIAZIDE 0-26 by mouth ity of ORAL 08:48: daily. [address] Branch pregabalin 2020-04 Yes Take by Uni vers (LYRICA 0-26 mouth ity of ORAL) 08:48: daily. [address] montelukast 2020-04 Yes 10mg Take 10 mg Univers 10 mg 0-26 by mouth ity of tablet 08:48: daily. [address] sumatriptan 2020-04 Yes Take by Un vale succ/naprox 0-26 mouth as ity of en sod 08:48: needed. [place] (SUMATRIPTA 52 Medical N-NAPROXEN Branch ORAL) propranoloL 2020-04 Yes 10mg Take 10 mg Univers 10 mg 0-26 by mouth 2 ity of tablet 08:48: (two) [place] [address] times Medical daily. Branch methIMAzole 2019-04 Yes 10mg Take 1 Univ ers 10 mg 2-29 tablet by ity of tablet 00:00: mouth. [address] methIMAzole 2019-04 Yes 10mg Take 1 Univ ers 10 mg 2-29 tablet by ity of tablet 00:00: mouth. [address] methIMAzole 2019-04 Yes 10mg Take 1 Univ ers 10 mg 2-29 tablet by ity of tablet 00:00: mouth. [address] methIMAzole 2019-04 Yes 10mg Take 1 Univ ers 10 mg 2-29 tablet by ity of tablet 00:00: mouth. [address] methazolAMI 2019-04 Yes 50mg Take 50 mg [facility] DE 50 MG 2-24 by mouth College TABS 19:13: daily. of 25 Medicin e Pregabalin 2019-04 Yes Take by [place] esthela (LYRICA OR) 2-24 mouth. Colleg e [...] of tablet 10 daily. Medicin e methimazole Yes [id number] 15mg Take 1.5 Yared (TAPAZOLE) 9-14 Tabs by Colleg e 10 MG 00:00: mouth of tablet 00 daily. Medicin e Propranolol Propranolol Yes Sunil [address] HCl HCl 9-10 [facility] atenolol Yes 50mg Take 2 Yared (TENORMIN) 9-09 Tabs by Rahatg e 25 MG 00:00: mouth of tablet 00 daily. Medicin e Ondansetron Ondansetron Yes Sunil 1 tablet [facility] [...] Sodium Sodium [facility] Lyrica Lyrica Yes Sunil [address] [facility] Hydrochloro Hydrochloro Yes Sunil [address] thiazide thiazide Mccall in the [facility] Immunizations Ordered Filled Immunization Date Status Comments [facility] e Immunization Name Name Influenza Virus 2020-04-01 Completed Universit y of Vaccine Quad .5 mL 00:00:00 [facility] IM 6+ [place] Branch Influenza Virus 2020-04-01 Completed Universit y of Vaccine Quad .5 mL 00:00:00 [facility] IM 6+ [place] Branch Influenza Virus 2020-04-01 Completed Universit y of Vaccine Quad .5 mL 00:00:00 [facility] IM 6+ [place] Branch Influenza Virus 2020-04-01 Completed Universit y of Vaccine Quad .5 mL 00:00:00 [facility] IM 6+ [place] Branch TDAP (ADACEL) 2019-10-03 Completed University of VACCINE 00:00:00 [facility] TDAP (ADACEL) 2019-10-03 Completed University of VACCINE 00:00:00 [facility] TDAP (ADACEL) 2019-10-03 Completed University of VACCINE 00:00:00 [facility] TDAP (ADACEL) 2019-10-03 Completed University of VACCINE 00:00:00 [facility] Vital Signs Vital Name Observation Time Observation Value Comments Source Systolic blood 2021-02-10 03:01:00 152 mm[Hg] Univer sity of pressure [facility] Diastolic blood 2021-02-10 03:01:00 75 mm[Hg] Unive rsity of pressure [facility] Heart rate 2021-02-10 03:01:00 61 /min [facility] Body temperature 2021-02-10 03:01:00 36.78 Tegan [facility] Respiratory rate 2021-02-10 03:01:00 20 /min [facility] Body weight 2021-02-10 03:01:00 136.079 kg [facility] BMI 2021-02-10 03:01:00 51.49 kg/m2 [facility] Oxygen saturation in 2021-02-10 03:01:00 100 /min [facility] Arterial blood by [facility] Pulse oximetry Branch Systolic blood 2021-01-27 13:51:00 110 mm[Hg] Univer sity of pressure [facility] Diastolic blood 2021-01-27 13:51:00 67 mm[Hg] Unive rsity of pressure [facility] Heart rate 2021-01-27 13:51:00 62 /min [facility] Respiratory rate 2021-01-27 13:48:00 19 /min [facility] Branch Body height 2021-01-27 13:48:00 [facility] 2021-01-27 13:48:00 136.034 kg [facility] BMI 2021-01-27 13:48:00 51.48 kg/m2 [facility] Oxygen saturation in 2021-01-27 13:48:00 93 /min University Arterial blood by [facility] Pulse oximetry Branch Systolic blood 2020-03-27 19:08:00 118 mm[Hg] [facility] of pressure Medicine Diastolic blood 2020-03-27 19:08:00 74 mm[Hg] [facility] pressure Medicine Heart rate 2020-03-27 19:08:00 60 /min [facility] ollege of Medicine Respiratory rate 2020-03-27 19:08:00 18 /min [facility] Body height 2020-03-27 19:08:00 162.6 cm [facility] ollege of [facility] Body weight 2020-03-27 19:08:00 130.999 kg [facility] ollege of Medicine BMI 2020-03-27 19:08:00 49.57 [facility] Systolic blood 2020-03-27 19:08:00 118 mm[Hg] [facility] pressure Medicine Diastolic blood 2020-03-27 19:08:00 74 mm[Hg] [facility] Medicine Heart rate 2020-03-27 19:08:00 60 /min [facility] ollege of Medicine Respiratory rate 2020-03-27 19:08:00 18 /min [facility] Body height 2020-03-27 19:08:00 162.6 cm [facility] ollege of [facility] Body weight 2020-03-27 19:08:00 130.999 kg [facility] ollege of Medicine BMI 2020-03-27 19:08:00 49.57 kg/m2 [facility] ol[facility] of Medicine Procedures Procedure Date / Time Performed Performing Clinician Sourc e CT HEAD WO CONTRAST 2021-02-10 03:42:17 Fannie Brambila [facility] NOTICE OF PRIVACY 2021-02-10 02:58:16 Doctor Unassigned, No [facility] PRACTICES Name Medical Branch CONSENT/REFUSAL FOR 2021-02-10 02:52:19 Doctor Unassigned, No Un [facility] DIAGNOSIS AND Name Medical Branch TREATMENT Plan of Care Planned Activity Planned Date Details Comments Source Future Scheduled TSH [code = Ordered: Yared Mayra e[facility] of Test 86926-0] 03/27/2020 Medicine Future Scheduled T4 FREE [code = Ordered: [facility] C ollege of Test 3024-7] 03/27/2020 Medicine Future Scheduled T3 [code = 3053-6] Ordered: [employer] 03/27/2020 Medicine Future Scheduled MAMMOGRAM ANNUAL [facility] College of Test [code = MAMMOGRAM Medicine ANNUAL] Future Scheduled TETANUS SHOT [facility] Mayra e[facility] of Test (ADULT) [code = Medicine TETANUS SHOT (ADULT)] Future Scheduled BMI FOLLOW UP PLAN [employer] [facility] [employer] [facility] [code = BMI FOLLOW Medicine UP PLAN] Future Scheduled HEPATITIS C [facility] Mayra e[facility] of Test SCREENING [code = Medicine HEPATITIS C SCREENING] Future Scheduled HIV SCREENING [code [employer] [facility] = HIV SCREENING] Medicine Future Scheduled CERVICAL CANCER [facility] C ollege of Test SCREENING 3 YEAR Medicine FOLLOW UP [code = CERVICAL CANCER SCREENING 3 YEAR FOLLOW UP] Future Scheduled FLU VACCINE > 6 Yared C ollege of Test MONTHS [code = FLU Medicine VACCINE > 6 MONTHS] Encounters Start End Encounter Admission Attending Care Care Encounter Source Date/Time Date/Time Type Type Clinicians Facility Department ID 2021-05-07 Outpatient Mccall, [facility] [id number] 13:30:02 [facility] 2021-05-01 Outpatient Mccall, [facility] [id number] 08:23:02 [facility] 2021-04-29 Outpatient Mccall, [facility] [id number] 14:31:29 [facility] 2021-04-29 Outpatient Mccall, [facility] [id number] 14:12:21 [facility] 2021-04-29 Outpatient Mccall, [facility] [id number] 12:44:58 [facility]il 71622 [facility] 2021-04-29 Outpatient Mccall, [facility] [id number] 12:34:29 Sunil [id number] [facility] 2021-04-29 Outpatient Mccall, [facility] [id number] 12:27:16 Sunil 87075 [facility] 2021-04-29 Outpatient Mccall, [facility] [id number] 12:20:23 Sunil 77020 [facility] 2021-04-29 Outpatient Mccall, [facility] [id number] 11:59:35 Sunil [id number] [facility] 2021-04-29 [facility] 11:46[facility]14 Sunil 34136 [facility] 2021-04-29 [facility] 11:27:12 Sunil 73318 [facility] 2021-07-28 2021-07-28 Outpatient Tayler MARTINO [facility] [id number] Univers 09:00:00 09:00:00 SENDIL [id number] [facility] 2021-05-07 2021-05-07 ambulatory [facility] [id number] [facility] 2021-05-05 2021-05-05 ambulatory [facility] [id number] [facility] 2021-05-01 2021-05-01 ambulatory [facility] [id number] [facility] 2021-04-10 2021-04-10 ambulatory [facility] [id number] [facility] 2021-04-06 2021-04-06 ambulatory [facility] [id number] [facility] 2021-04-06 2021-04-06 ambulatory [facility] [id number] [facility] 2021-02-12 2021-02-12 ambulatory [facility] [id number] [facility] 2021-02-09 2021-02-09 [facility] [id number] Univers 21:28:00 23:35:00 [facility]-09 2021-02-09 [facility] [id number] Univers 21:28:00 23:35:00 Fannie VU [id number] i ty [facility] [id number] [place] [phone] [facility] 084 [place] 2021-02-09 2021-02-09 Orders Doctor LAUREN [id number] Univers 00:00:00 00:00:00 Only Unassigned, NICHOLAS [id number] ity of [facility] [id number] Ronnie as [phone] [facility] 009 Branch 2021-02-05 2021-02-05 Outpatient R SALENA [facility] [id number] Univers 14:00:00 14:00:00 SENDIL [id number] ity [facility] 2021-01-29 2021-01-29 [facility] [id number] [facility] 2021-01-27 2021-01-27 Office Salena [facility] [id number] Univers 08:24:21 09:10:00 Visit Nehemias Vu [id number] itkirill [facility] [place] [id number] [facility] [phone] [place] [id number] [facility] 2021-01-27 2021-01-27 Outpatient Tayler MARTINO [facility] [id number] Univers 08:30:00 08:30:00 SENDIL [id number] [facility] 2021-01-27 2021-01-27 Outpatient Tayler MARTINO [facility] [id number] Univers 08:30:00 08:30:00 SENDIL [facility] 2021-01-25 2021-01-25 Outpatient [facility] [id number] [facility] 2021-01-22 2021-01-22 Outpatient [facility] [id number] [facility] 2021-01-19 2021-01-19 Outpatient [facility] [id number] [facility] 2020-12-10 2020-12-10 Outpatient [facility] [id number] [facility] 2020-11-21 2020-11-21 Outpatient [facility] [id number] [facility] 2020-11-18 2020-11-18 Outpatient [facility] [id number] [facility] 2020-11-05 2020-11-05 Outpatient [facility] [id number] [facility] 2020-10-30 2020-10-30 Outpatient Tayler MARTINO [facility] [id number] Univers 11:30:00 11:30:00 SENDIL [id number] [facility] 2020-10-30 2020-10-30 Outpatient Tayler MARTINO [facility] [id number] Univers 11:30:00 11:30:00 SENDIL [facility] 2020-10-02 2020-10-02 Outpatient Tayler MARTINO [facility] [id number] Univers 09:00:00 09:00:00 SENDIL [id number] [facility] 2020-09-15 2020-09-15 Outpatient [facility] [id number] [facility] 2020-09-04 2020-09-04 Outpatient Tayler SALENA [facility] [id number] Univers 11:00:00 11:00:00 SENDIL [id number] [facility] 2020-09-04 2020-09-04 Outpatient Tayler MARTINO [facility] [id number] Univers 11:00:00 11:00:00 SENDIL [facility] 2020-08-20 2020-08-20 Outpatient [facility] [id number] [facility] 2020-08-19 2020-08-19 Outpatient [facility] [id number] [facility] 2020-07-15 2020-07-15 Outpatient Tayler MARTINO [facility] [id number] Univers 10:00:00 10:00:00 SENDIL [id number] [facility] 2020-07-15 2020-07-15 Outpatient Tayler MARTINO [facility] [id number] Univers 10:00:00 10:00:00 SENDIL [facility] 2020-07-11 2020-07-11 Outpatient [facility] [id number] [facility] 2020-07-10 2020-07-10 Outpatient [facility] [id number] [facility] 2020-07-02 2020-07-02 Outpatient [facility] [id number] [facility] 2020-06-29 2020-06-29 Outpatient [facility] [id number] [facility] 2020-06-10 2020-06-10 Outpatient [facility] [id number] [facility] 2020-06-03 2020-06-03 Outpatient [facility] [id number] [facility] 2020-06-02 2020-06-02 [id number] 00:00:00 00:00:00 Nehemias Vu [id number] Vass [id number] [phone] nal 059 [facility] 2020-05-31 2020-05-31 Outpatient [facility] [id number] [facility] 2020-05-07 2020-05-07 Outpatient [facility] [id number] [facility] 2020-05-05 2020-05-[id number] 00:00:00 00:00:00 Nehemias Vu [id number] Vass [id number] Professio [id number] nal 9 [facility] 2020-05-02 2020-05-02 [facility] [id number] 08:58:15 23:59:00 Encounter Nehemias CRAIN [id number] [facility] [id number] CENTER AT [id number] DANIELLE 805 [facility] 2020-05-02 2020-05-02 [facility] [id number] Univers 09:00:00 09:00:00 SENDIL [facility] 2020-05-02 2020-05-02 [facility] [id number] 08:32:07 08:57:00 Encounter Sendtequila K.HDonya SPECIALTY [id number] CARE [id number] CENTER AT [id number] RAFFY 805 [facility] 2020-05-02 2020-05-02 [facility] [id number] 08:31:50 08:31:50 Encounter Sendil K.HDonya SPECIALTY [id number] CARE [id number] CENTER AT [id number] [facility] 805 [facility] 2020-05-02 2020-05-02 [facility] [id number] 08:31:12 08:31:12 Encounter Sendtequila K.HDonya SPECIALTY [id number] CARE [id number] CENTER AT [id number] [facility] [address] [place] [address] 2020-04-24 2020-04-24 Outpatient R [facility] [id number] Univers 13:00:00 13:00:00 [id number] [facility] 2020-04-24 2020-04-24 Outpatient [facility] [id number] Univers 10:30:00 10:30:00 SENDIL [facility] 2020-04-16 2020-04-16 [facility]patient [facility] [id number] [facility] St 00:00:00 00:00:00 [facility] 2020-04-11 2020-04-11 Orders Doctor LAUREN [id number] 00:00:00 00:00:00 Only Unassigned, NICHOLAS [id number] [facility] [id number] 2020-04-08 2020-04-08 Telephone [facility] [id number] 00:00:00 00:00:00 Sendtequila Vu [id number] Yohan [id number] [facility] [phone] [facility] 059 [facility] 2020-04-01 2020-04-01 Outpatient Tayler MARTINO [facility] [id number] Univers 11:00:00 11:00:00 SENDIL [id number] [facility] 2020-04-01 2020-04-01 Outpatient Tayler MARTINO [facility] [id number] Univers 11:00:00 11:00:00 SENDIL [facility] 2020-04-01 2020-04-01 Outpatient [facility] [id number] [facility] 2020-03-31 2020-03-31 Outpatient [facility] [id number] [facility] 00:00:00 00:00:00 [facility] 2020-03-27 2020-03-27 Office Cool, BCM [id number] 13:04:09 13:34:09 Visit Dimpi Ramses AMBULATOR [id number] Y [id number] [facility] 2020-03-27 2020-03-27 Office Cool, BCM [id number] [facility] 13:04:09 13:34:09 Visit Dimpi Ramses AMBULATOR [id number] College Y [id number] of [id number] [facility] 310 e 2020-03-24 2020-03-24 Outpatient [facility] [id number] [facility] 2020-03-17 2020-03-17 Outpatient [facility] [id number] [facility] 2020-03-12 2020-03-12 Outpatient [facility] [id number] [facility] 2020-03-11 2020-03-11 Outpatient [facility] [id number] [facility] 2020-03-03 2020-03-03 Outpatient [facility] [id number] [facility] 2020-02-14 2020-02-14 Outpatient [facility] [id number] [facility] 2020-02-11 2020-02-11 Outpatient [facility] [id number] [facility] 2020-02-08 2020-02-08 Outpatient [facility] [id number] [facility] 2020-02-01 2020-02-01 Outpatient [facility] [id number] Univers 16:00:00 16:00:00 [facility] 2020-02-01 2020-02-01 Outpatient R [facility] [id number] [facility] 16:00:00 16:00:00 [facility] 2020-01-30 2020-01-30 Outpatient [facility] [id number] [facility] 2020-01-29 2020-01-29 Outpatient R [place], [facility] [id number] Univers 11:30:00 11:30:00 SENDIL [id number] [facility] 2020-01-29 2020-01-29 Outpatient R [place], [facility] [id number] Univers 11:30:00 11:30:00 SENDIL [facility] 2020-01-23 2020-01-23 Outpatient [facility] [id number] [facility] 2020-01-22 2020-01-22 Outpatient [facility] [id number] [facility] 2020-01-15 2020-01-15 Outpatient [facility] [id number] [facility] 2020-01-09 2020-01-09 [facility] [id number] [facility] 2020-01-07 2020-01-07 [facility] [id number] [facility] 2020-01-03 2020-01-03 Outpatient R BEAR [facility] [id number] [facility] 11:15:00 11:15:[facility] 2020-01-03 Outpatient R BEAR [facility] [id number] [facility] 11:15:00 11:15:00 ISAMAR [facility] 2020-01-01 2020-01-01 Outpatient R CHEMA [facility] [id number] Univers 15:30:00 15:30:00 [id number] [facility] 2020-01-01 2020-01-01 Outpatient R BEAR, [facility] [id number] Univers 15:30:00 15:30:00 ISAMAR [facility] 2019-12-19 2019-12-19 [facility] [id number] [facility] 16:30:00 16:30:00 [facility] Medicine Outpati ent [facility] 2019-12-18 2019-12-18 Outpatient R [facility]AR [facility] [id number] Univers 15:30:00 15:30:00 [facility] [id number] [facility] 2019-12-18 2019-12-18 [facility] [id number] [facility] 13:33:00 13:33:00 [facility] Medicine Medicine Outpati ent Clinics 2019-12-18 2019-12-18 Outpatient R [facility] [id number] Univers 10:00:00 10:00:[facility] 2019-12-13 2019-12-13 Outpatient [place], [facility] [id number] Univers 11:00:00 11:00:00 [facility] 2019-12-13 2019-12-13 Outpatient Tayler [place] [facility] [id number] Univers 11:00:00 11:00:00 SENDIL [facility] 2019-12-09 2019-12-09 [facility] [id number] [facility] 17:43:00 17:43:00 t [facility] Medicine Medicine Outpati ent Clinics 2019-12-04 2019-12-04 Outpatient Tayler [facility] [id number] Univers 13:30:00 13:30:00 ISAMAR [id number] [facility] 2019-12-04 2019-12-04 Outpatient Tayler [facility] [id number] Univers 13:30:00 13:30:00 ISAMAR [facility] 2019-11-26 2019-11-26 [facility] [id number] [facility] 15:17:00 15:17:00 t [facility] Medicine Medicine Outpati ent Clinics 2019-11-24 2019-11-24 [facility] [id number] [facility] 15:24:00 15:24:00 t [facility] Family Medicine l Medicine Outpati ent Clinics 2019-11-22 2019-11-22 [facility] [id number] 16:03:00 16:03:00 t [facility] Family Medicine l Medicine Outpati ent Clinics 2019-11-19 2019-11-19 [facility] [id number] [facility] 14:35:00 14:35:00 t [facility] Family Medicine l Medicine Outpati ent Clinics 2019-11-16 2019-11-16 [facility] [id number] 09:15:00 09:15:00 t [facility] Medicine l Medicine Outpati ent Clinics 2019-11-09 2019-11-09 Outpatient [facility] [id number] [facility] 00:00:00 00:00:00 2019-11-08 2019-11-08 [facility] [id number] [facility] 09:12:00 09:12:00 t [facility] Medicine Outpati ent Clinics 2019-11-08 2019-11-08 Outpatient [facility] [id number] [facility] 00:00:00 00:00:00 2019-11-08 2019-11-08 Outpatient EL [facility] [id number] [facility] 00:00:00 00:00:00 2019-11-02 2019-11-02 Outpatient [facility] [id number] [facility] 00:00:00 00:00:00 2019-11-01 2019-11-01 Outpatient [facility] [id number] [facility] 00:00:00 00:00:00 2019-11-01 2019-11-01 Outpatient EL [facility] [id number] [facility] 00:00:00 00:00:00 2019-10-30 2019-10-30 [facility] [id number] [facility] 17:05:00 17:05:00 t [facility] Medicine Outpati ent Clinics 2019-10-29 2019-10-29 [facility] [id number] 15:04:00 15:04:00 t [facility] Medicine Outpati ent Clinics 2019-10-29 2019-10-29 [facility] [id number] 08:06:00 08:06:00 t [facility] Medicine Outpati ent Clinics 2019-10-23 2019-10-23 Outpatient Tayler [facility] [id number] Univers 15:00:00 15:00:00 ISAMAR [id number] [facility] 2019-10-23 2019-10-23 Outpatient Tayler [facility] [id number] Univers 15:00:00 15:00:00 ISAMAR [facility] 2019-10-22 2019-10-22 [facility] [id number] 12:23:00 12:23:00 t [facility] Medicine Outpati ent Clinics 2019-10-18 2019-10-18 [facility] [id number] 14:30:00 14:30:00 [facility] 2019-10-11 2019-10-11 Outpatient Tayler [facility] [id number] Univers 09:45:00 09:45:00 ISAMAR [id number] [facility] 2019-09-20 2019-09-20 Outpatient Asher Saucedo [id number] 09:[facility] 09[facility] [facility] [place] [place] ent [facility] Results Test Description Test Time Test Comments Results Result Sourc e Comments THYROID IMAGING 2019-11-09 FINAL REPORT PATIENT UPTAKE, MULTIPLE 09:03:00 ID: [id number] PROCEDURE: THYROID SCAN AND UPTAKES CPT CODE: 94781 INDICATION: Hyperthyroidism PROTOCOL: 0.238 mCi of I-123 [...] Borderline elevated overall iodide uptakes. Signed: Konrad Goode MDReport Verified Date/Time: 11/09/2019 09:03:02 Reading Location: [address] Reading Room
[2021-05-14 03:26] LABS: Lymphocytes % 23.7 % (15.3-44.8); MPV 7.2 fL (7.6-11.3); RBC Red Blood Cell Count 4.71 M/uL (3.86-4.86)
[2021-05-14] MEDS ORDERED: NA CHLORIDE 0.9% 500 ML ONE (03:38)
[2021-05-14 04:25] LABS: Potassium 3.7 mmol/L (3.5-5.1)
[2021-05-14] MEDS ORDERED: HYDROCODONE/APAP 5/325 MG TAB ONE ×2 (06:07→06:12)
--- NOTE | 2021-05-14 06:11 | EDPHYS ---
Physician Documentation [facility] Name: Skye Figueroa Age: 46 yrs Sex: Female : 1975 Arrival Date: 05/14/2021 Time: 02:48 Bed 5 Private MD: ED Physician Alec Nair HPI: 05/14 02:49 This 46 yrs old Female presents to ER via Unassigned with complaints of chest pain. rn 02:49 The patient or guardian reports chest pain that is located primarily in the substernal rn area. Onset: 3 day(s) ago. The pain does not radiate. Associated signs and symptoms: Pertinent negatives: abdominal pain, cough, diaphoresis, palpitations, shortness of breath. The chest pain is described as cramping. Duration: The patient or guardian reports multiple episodes, that are intermittent, the episodes last approximately 15 minute(s). Modifying factors: The symptoms are alleviated by nothing. the symptoms are aggravated by nothing. Severity of pain: At its worst the pain was mild in the emergency department the pain is unchanged. The patient has not experienced similar symptoms in the past. The patient has not recently seen a physician. Denies fever/cough/hemoptysis. No pain with deep inspiration. No hx of dvt/pe. No hx of cardiac problems. . 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 ll3 Historical: - Allergies: 02:59 Naproxen; ll3 02:59 tramadol; ll3 03:03 Naproxen; st1 03:03 tramadol; st1 - Home Meds: 02:59 hydrochlorothiazide Oral [Active]; methimazole 10 mg Oral tab 1 tab once daily ll3 [Active]; Zoloft 100 mg Oral tab 1 tab once daily [Active]; propranolol 20 mg Oral tab [Active]; Singulair 10 mg Oral tab 1 tab once daily [Active]; Hydrochlorothiazide Oral [Active]; 03:03 Hydrochlorothiazide Oral for Hypertension [Active]; Lyrica 75 mg Oral 1 cap 2 times [address] st1 day for Fibromyalgia [Active]; methimazole 10 mg Oral tab 1 tab once daily [Active]; Singulair 10 mg Oral tab 1 tab once daily [Active]; propranolol 20 mg Oral tab [Active]; Zoloft 100 mg Oral tab 1 tab once daily [Active]; - PMHx: 02:59 BRAIN TUMOR; graves disease; Hydrocephalus; Migraines; Seizures; Anxiety; ll3 03:03 Anxiety; BRAIN TUMOR; graves disease; Hydrocephalus; Migraines; Seizures; st1 - PSHx: 02:59 Appendectomy; Cholecystectomy; GRINDER SET UP OPERATOR INTERNAL shunt; Eye SX; Brain SX; ll3 03:03 Appendectomy; Brain sx; Cholecystectomy; eye sx; GRINDER SET UP OPERATOR INTERNAL shunt; st1 - Immunization history:: Client reports having NOT received the Covid vaccine. Client reports having NOT received the Covid vaccine. - Family history:: not pertinent. - Social history:: Smoking status: Patient denies any tobacco usage or history of. Patient/guardian denies using alcohol, street drugs, IV drugs, tobacco products. - Hospitalizations: : No recent hospitalization is reported. - Code Status:: Full code. ROS: 02:51 Constitutional: Negative for fever, chills, and weight loss, Eyes: Negative for injury, rn pain, redness, and discharge, Neck: Negative for injury, pain, and swelling, Cardiovascular: Negative for edema Respiratory: Negative for shortness of breath, cough, wheezing, and pleuritic chest pain, Abdomen/GI: Negative for abdominal pain, nausea, vomiting, diarrhea, and constipation, Back: Negative for injury and pain, : Negative for injury, bleeding, discharge, and swelling, MS/Extremity: Negative for injury and deformity, Skin: Negative for injury, rash, and discoloration, Neuro: Negative for headache, weakness, numbness, tingling, and seizure. Exam: 02:51 Constitutional: Overweight female, no acute distress Head/Face: Normocephalic, rn atraumatic. Eyes: Periorbital areas with no swelling, redness, or edema. Cardiovascular: Regular rate and rhythm. No pulse deficits. Respiratory: No increased work of breathing, no retractions or nasal flaring. Abdomen/GI: soft, non-tender Skin: Warm, dry MS/ Extremity: Pulses equal, no cyanosis. Equal circumference. Neuro: Awake and alert, GCS 15 Vital Signs: 02:41 BP 123 / 61; Pulse 61; Resp 16; Pulse Ox 100% ; st1 02:55 BP 123 / 61; Pulse 55; Resp 17; Temp 97.8(O); Pulse Ox 100% on R/A; Weight 128.82 kg ll3 (R); Height 5 ft. 4 in. (162.56 cm) (R); Pain 9/10; 03:11 BP 100 / 63; Pulse 60; Resp 16; Pulse Ox 98% ; st1 04:15 BP 110 / 48; Pulse 58; Resp 14; Pulse Ox 97% on R/A; ll3 05:15 BP 101 / 53; Pulse 60; Resp 15; Pulse Ox 96% on R/A; ll3 06:10 BP 118 / 77; Pulse 83; Resp 16; Pulse Ox 100% on R/A; st1 02:55 Body Mass Index 48.75 (128.82 kg, 162.56 cm) ll3 Procedures: 06:08 Ultrasound: Type: Bedside ECHO, performed by the emergency department physician, rn Bedside ECHO performed to rule out pericardial effusion, no pericardial effusion noted, good contraction. MDM: 02:51 Patient medically screened. rn 06:08 Differential diagnosis: acute myocardial infarction, acute pericarditis, anxiety, chest rn wall pain, costochondritis, esophagitis, gastritis, gastroesophageal reflux disease (GERD), pericarditis, pleurisy, pneumonia, pneumothorax. Data reviewed: vital signs, nurses notes, lab test result(s), EKG, radiologic studies, plain films, and as a result, I will discharge patient. Counseling: I had a detailed discussion with the patient and/or guardian regarding: the historical points, exam findings, and any diagnostic results supporting the discharge/admit diagnosis, lab results, radiology results, the need for outpatient follow up, to return to the emergency department if symptoms worsen or persist or if there are any questions or concerns that arise at home. Special discussion: Based on the patient's history, exam, and Dx evaluation, there is no indication for emergent intervention or inpatient Tx. It is understood by the patient/guardian that if the Sx's persist or worsen they need to return immediately for re-evaluation. I discussed with the patient/guardian in detail that at this point there is no indication for admission to the hospital. It is understood, however, that if the symptoms persist or worsen the patient needs to return immediately for re-evaluation. 05/14 02:49 Order name: Basic Metabolic Panel; Complete Time: 05:26 rn 05/14 02:49 Order name: CBC with Diff; Complete Time: 03:35 rn 05/14 02:49 Order name: NT PRO-BNP; Complete Time: 05:26 rn 05/14 02:49 Order name: Troponin HS; Complete Time: 05:26 rn 05/14 02:49 Order name: XRAY Chest (1 view) rn 05/14 02:49 Order name: IV Start; Complete Time: 03:01 rn 05/14 02:49 Order name: EKG; Complete Time: 02:49 rn 05/14 02:49 Order name: Cardiac monitoring; Complete Time: 03:00 rn 05/14 02:49 Order name: EKG - Nurse/Tech; Complete Time: 03:01 rn 05/14 02:49 Order name: IV Saline Lock; Complete Time: 03:01 rn 05/14 02:49 Order name: Labs collected and sent; Complete Time: 03: rn 05/14 02:49 Order name: O2 Per Protocol; Complete Time: 03:01 rn 05/14 02:49 Order name: O2 Sat Monitoring; Complete Time: 03:01 rn Administered Medications: 03:52 Drug: NS 0.9% 500 ml Route: IV; Rate: bolus; Site: right antecubital; st1 06:10 Drug: HYDROcodone-acetaminophen 5 mg-325 mg 1 tabs Route: PO; st1 Disposition Summary: 05/14/21 06:10 Discharge Ordered Location: Home rn Problem: new rn Symptoms: have improved rn Condition: Stable rn Diagnosis - Chest pain, unspecified rn Followup: rn - With: Private Physician - When: As needed - Reason: Recheck today's complaints, Re-evaluation by your physician Discharge Instructions: - Discharge Summary Sheet rn - Nonspecific Chest Pain, Adult rn - Pain Without a Known Cause rn Forms: - Medication Reconciliation Form rn - Thank You Letter rn - Antibiotic or rn - Prescription Opioid Use rn - Work release form ll3 Signatures: Dispatcher [employer] Alec Hale MD MD rn Loubet, Lynsea RN RN ll3 Blanca Bowden RN RN st1 Corrections: (The following items were deleted from the chart) 03:03 02:59 PMHx: GRINDER SET UP OPERATOR INTERNAL Shunt; ll3 ll3
--- NOTE | 2021-05-14 06:11 | ER ---
Nurse's Notes [facility] Name: Skye Figueroa Age: 46 yrs Sex: Female : 1975 Arrival Date: 05/14/2021 Time: 02:48 Bed 5 Private MD: Diagnosis: Chest pain, unspecified Presentation: 05/14 02:55 Chief complaint: Patient states: EMS toned out for chest pain. Coronavirus screen: ll3 Vaccine status: Patient reports being unvaccinated. At this time, the client does not indicate any symptoms associated with coronavirus-19. Ebola Screen: No symptoms or risks identified at this time. Initial Sepsis Screen: Does the patient meet any 2 criteria? No. Patient's initial sepsis screen is negative. Does the patient have a suspected source of infection? No. Patient's initial sepsis screen is negative. Risk Assessment: Do you want to hurt yourself or someone else? Patient reports no desire to harm self or others. Onset of symptoms was May 13, 2021. Care prior to arrival: None. 02:55 Method Of Arrival: EMS: [facility] 3 02:55 Acuity: NIDA 3 ll3 Triage Assessment: 02:59 General: Appears in no apparent distress. uncomfortable, Behavior is calm, cooperative, ll3 anxious. Pain: Complains of pain in chest Pain currently is 9 out of 10 on a pain scale. Is continuous. Neuro: Level of Consciousness is awake, alert, obeys commands, Oriented to person, place, time, situation, Speech is normal, Facial symmetry appears normal. Cardiovascular: Chest pain is described as vague, Pain is 9 out of 10 on a pain scale. is located in right left anterior chest wall radiates to right arm(s). Respiratory: Respiratory effort is even, unlabored, Respiratory pattern is regular, symmetrical. Derm: Skin is pink, warm \T\ dry. 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 ll3 Historical: - Allergies: 02:59 Naproxen; ll3 02:59 tramadol; ll3 03:03 Naproxen; st1 03:03 tramadol; st1 - Home Meds: 02:59 hydrochlorothiazide Oral [Active]; methimazole 10 mg Oral tab 1 tab once daily ll3 [Active]; Zoloft 100 mg Oral tab 1 tab once daily [Active]; propranolol 20 mg Oral tab [Active]; Singulair 10 mg Oral tab 1 tab once daily [Active]; Hydrochlorothiazide Oral [Active]; 03:03 Hydrochlorothiazide Oral for Hypertension [Active]; Lyrica 75 mg Oral 1 cap 2 times per st1 day for Fibromyalgia [Active]; methimazole 10 mg Oral tab 1 tab once daily [Active]; Singulair 10 mg Oral tab 1 tab once daily [Active]; propranolol 20 mg Oral tab [Active]; Zoloft 100 mg Oral tab 1 tab once daily [Active]; - PMHx: 02:59 BRAIN TUMOR; graves disease; Hydrocephalus; Migraines; Seizures; Anxiety; ll3 03:03 Anxiety; BRAIN TUMOR; graves disease; Hydrocephalus; Migraines; Seizures; st1 - PSHx: 02:59 Appendectomy; Cholecystectomy; MANUFACTURING WORKER shunt; Eye SX; Brain SX; ll3 03:03 Appendectomy; Brain sx; Cholecystectomy; eye sx; MANUFACTURING WORKER shunt; st1 - Immunization history:: Client reports having NOT received the Covid vaccine. Client reports having NOT received the Covid vaccine. - Family history:: not pertinent. - Social history:: Smoking status: Patient denies any tobacco usage or history of. Patient/guardian denies using alcohol, street drugs, IV drugs, tobacco products. - Hospitalizations: : No recent hospitalization is reported. - Code Status:: Full code. Screenin:01 Abuse screen: Denies threats or abuse. Nutritional screening: No deficits noted. st1 Tuberculosis screening: No symptoms or risk factors identified. Fall Risk None identified. No fall in past 12 months (0 pts). No secondary diagnosis (0 pts). IV access (20 points). Ambulatory Aid- None/Bed Rest/Nurse Assist (0 pts). Gait- Normal/Bed Rest/Wheelchair (0 pts) Mental Status- Oriented to own ability (0 pts). Total Aburto Fall Scale indicates No Risk (0-24 pts). Assessment: 03:03 General: Appears in no apparent distress. uncomfortable, obese, well groomed, well ll3 developed, Behavior is cooperative, anxious, See triage assessment. 04:15 Reassessment: Patient and/or family updated on plan of care and expected duration. Pain ll3 level reassessed. Patient is alert, oriented x 3, equal unlabored respirations, skin warm/dry/pink. 05:15 Reassessment: Patient and/or family updated on plan of care and expected duration. Pain ll3 level reassessed. Patient is alert, oriented x 3, equal unlabored respirations, skin warm/dry/pink. Vital Signs: 02:41 BP 123 / 61; Pulse 61; Resp 16; Pulse Ox 100% ; st1 02:55 BP 123 / 61; Pulse 55; Resp 17; Temp 97.8(O); Pulse Ox 100% on R/A; Weight 128.82 kg ll3 (R); Height 5 ft. 4 in. (162.56 cm) (R); Pain 9/10; 03:11 BP 100 / 63; Pulse 60; Resp 16; Pulse Ox 98% ; st1 04:15 BP 110 / 48; Pulse 58; Resp 14; Pulse Ox 97% on R/A; ll3 05:15 BP 101 / 53; Pulse 60; Resp 15; Pulse Ox 96% on R/A; ll3 06:10 BP 118 / 77; Pulse 83; Resp 16; Pulse Ox 100% on R/A; st1 02:55 Body Mass Index 48.75 (128.82 kg, 162.56 cm) ll3 ED Course: 02:48 Patient arrived in ED. rn 02:50 Alec Nair MD is Attending Physician. rn 02:55 Arm band placed on right wrist. EKG completed in triage. Results shown to MD. st1 Antipyretics given from triage as ordered by an ER provider. Antipyretics given from triage as ordered by an ER provider. EKG done per protocol. Labs ordered per protocol. Drawn by ED staff. 02:59 Triage completed. ll3 03:00 Blanca Bowden, CALEB is Primary Nurse. st1 03:00 XRAY Chest (1 view) Sent. st1 03:01 Basic Metabolic Panel Sent. st1 03:01 CBC with Diff Sent. st1 03:01 NT PRO-BNP Sent. st1 03:01 Troponin HS Sent. st1 03:01 Patient has correct armband on for positive identification. Placed in gown. Bed in low st1 position. Call light in reach. Side rails up X2. lunchroom monitor on. Pulse ox on. NIBP on. Verbal reassurance given. 03:02 Inserted saline lock: 22 gauge in right antecubital area, using aseptic technique. st1 03:03 XRAY Chest (1 view) In Process Unspecified. EDMS 07:00 No provider procedures requiring assistance completed. IV discontinued, intact, ll3 bleeding controlled, No redness/swelling at site. Pressure dressing applied. Administered Medications: 03:52 Drug: NS 0.9% 500 ml Route: IV; Rate: bolus; Site: right antecubital; st1 06:10 Drug: HYDROcodone-acetaminophen 5 mg-325 mg 1 tabs Route: PO; st1 Outcome: 06:10 Discharge ordered by MD. rn 07:00 Discharged to home ambulatory. ll3 07:00 Condition: stable 07:00 Discharge instructions given to patient, Instructed on discharge instructions, follow up and referral plans. Demonstrated understanding of instructions, follow-up care. 07:01 Patient left the ED. 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 uncomfortable, obese, well groomed, ll3 well developed, Behavior is cooperative, anxious, st1 05:46 03:03 General: Appears in no apparent distress. uncomfortable, obese, well groomed, ll3 well developed, Behavior is cooperative, anxious, See triage assessment. ll3
[2021-05-14 07:21] VITALS: TEMP 97.8
[2021-05-14 07:25] VITALS: BP 118/77; O2SAT 100
--- NOTE | 2021-05-14 09:25 | RAD REPORT ---
EXAM DESCRIPTION: RAD - Chest Single View - 05/14/2021 3:03 am CLINICAL HISTORY: CHEST PAIN Chest pain. COMPARISON: Chest Single View dated 01/25/2021; Chest Single View dated 08/21/2020; Chest Single View dated 06/10/2020; Chest Single View dated 06/02/2020 FINDINGS: Portable technique limits examination quality. The lungs are grossly clear. The heart is normal in size. No displaced fractures.Right-sided shunt tu kristin is present. IMPRESSION: No acute intrathoracic process suspected.
== END 2021-05-14 07:01 | disposition home or self-care (01) ==
LOC: ER 02:46
DX: R07.9 Chest pain, unspecified (principal); F41.9 Anxiety disorder, unspecified; Z98.2 Presence of cerebrospinal fluid drainage device
CPT/HCPCS: 93005; 85025; 80048; 36415; 84484; 83880; 71045; 99285; J7040

== ENCOUNTER 2021-06-20 01:03 | Emergency (ER) | payer OTHER ==
--- OUTSIDE RECORDS SUMMARY | 2021-06-20 01:08 | XMS REPORT | Continuity of Care Document ---
:1975 Author Organization [facility] t Address [address] Anto[address]. [address] [place] [address] Care Team Providers Name Role Phone MATT MCCALL Primary Care Physician Unavailable Jed Mccall Attending Clinician Unavailable SALENA, K.H. Attending Clinician Unavailable Mendez ELLIS Attending Clinician Unavailable Kenneth BRAMBILA Attending Clinician Unavailable Kosta PAC, S Attending Clinician Doctor Unassigned, Name Attending Clinician Unavailable Salena HAHN, K.H. Attending Clinician Ramses Cool MD Attending Clinician CHEMA Attending Clinician Unavailable Kenneth BRAMBILA Admitting Clinician Unavailable Payers Payer Name Policy Type Policy Number Effective Date Expiration Date Kenneth hunter [employer] [id number] 2019 00:00:00 PLAN Problems Condition Condition Condition Status Onset Resolution Last Treating Co mments Source Name Details Category Date Date Treatment Clinician Date Immune to Immune to Disease Active Uni vers varicella varicella 6-29 ity of 00:00: [address] BMI BMI Disease Active Univers 45.0-49.9, 45.0-49.9, 6-28 it y of adult adult 00:00: [place] 00 Medical Branch Excessive Excessive Disease Active Uni vers or or 6-21 ity of frequent frequent 00:00: [place] menstruati menstruati 00 Me dical on on Branch Knee pain, Knee pain, Disease Active U nivers left left 4-05 ity of 00:00: [place] 00 Medical Branch No known No known Disease [facility] problems problems of Medicin e Allergies, Adverse Reactions, Alerts Allergy Allergy Status Severity Reaction(s) Onset Inactive Treating Comm ents Source Name Type Date Date Clinician Tramadol Propensi Active Hallucinatio [facility] ty to ns 8-14 ity of adverse 00:00: [place] reaction 00 Medical s Branch TRAMADOL DRUG Active Hallucinates Un vale INGREDI 814 ity of 00:00: [place] 00 Medical Branch Tramadol Propensi Active Hallucinatio [facility] ty to 8-14 College adverse 00:00: of reaction 00 Medicin s to e drug Social History Social Habit Start Date Stop Date Quantity Comments Source Exposure to Not sure [facility]-CoV2 [place] [facility] (event) Branch History [facility] ge of Alcohol Std Medicine Drinks History [facility] ge of Alcohol Binge Medicine Tobacco use and 2020-03-27 2020-03-27 Never used [facility] llege of exposure 00:00:00 00:00:00 Medicine Alcohol intake 2020-03-27 2020-03-27 Current drinker [facility] of 00:00:00 00:00:00 of alcohol Medicine (finding) History [facility] 2019-11-22 2019-11-22 3 [facility] ge of Alcohol Frequency 00:00:00 00:00:00 Medicin e Sex [birth year] [facility] llege of 00:00:00 00:00:00 Medicine Smoking Status Start Date Stop Date Source Never smoker [facility] Medical Branch Medications Ordered Filled Start Stop Current Ordering Indication Dosage Frequency Signature Comments Components Source Medication Medication Date Date Medication? Clinician (SIG) Name Name ketorolac 2020-04 60mg 60 mg, Unive rs (TORADOL) 04-12 Intramuscu ity of injection 05:30: 05:30 [place], [place]CE[place] 60 mg 00 :00 1 dose, On Medical Mon Branch 02/09/21 at 2330, JOSE LUIS
[facility] Restricted medication : FANNIE BRAMBILA ondansetron 2020-04 No 4mg 4 mg, Univ ers (ZOFRAN-ODT 04-12 Oral, ity of ) 04:15: 03:45 ONCE, 1 [place] disintegrat 00 :00 dose, On Medi orin ing tablet Mon Branch 4 mg 02/09/21 at 2215, Routine ondansetron 2020-04 Yes [id number] 4mg Take 1 Univers (ZOFRAN 1-08 tablet by ity of ODT) 4 mg 00:00: mouth [place] disintegrat 00 every 8 Medic al ing tablet (eight) Branch hours as needed for Nausea and Vomiting (N/V). meclizine 2020-04 Yes [id number] 25mg Take 1 Un vale 25 mg 1-08 tablet by ity of tablet 00:00: mouth [place] 00 every 6 Medical (six) Branch hours. naproxen 2020-04 Yes [id number] 500mg Take 1 Un vale (NAPROSYN) 1-08 tablet by ity of 500 mg 00:00: mouth 2 [place] tablet 00 (two) Medical times Branch daily with meals. methocarbam 2020-04 Yes [id number] 500mg Take 1 Univers oL 500 mg 1-08 tablet by ity o f tablet 00:00: mouth 4 [place] 00 (four) Medical times Branch daily as needed for Pain (scale 4-6). ondansetron 2020-04 Yes [id number] 4mg Take 1 Univers (ZOFRAN 1-08 tablet by ity of ODT) 4 mg 00:00: mouth [place] disintegrat 00 every 8 Medic al ing tablet (eight) Branch hours as needed for Nausea and Vomiting (N/V). meclizine 2020-04 Yes [id number] 25mg Take 1 Un vale 25 mg 1-08 tablet by ity of tablet 00:00: mouth [place] 00 every 6 Medical (six) Branch hours. naproxen 2020-04 Yes [id number] 500mg Take 1 Un vale (NAPROSYN) 1-08 tablet by ity of 500 mg 00:00: mouth 2 [place] tablet 00 (two) Medical times Branch daily with meals. methocarbam 2020-04 Yes [id number] 500mg Take 1 Univers oL 500 mg [...] by mouth ity of ORAL 08:48: daily. [address] Branch pregabalin 2020-04 Yes Take by Uni vers (LYRICA 0-26 mouth ity of ORAL) 08:48: daily. [address] Branch montelukast 2020-04 Yes 10mg Take 10 mg Univers 10 mg 0-26 by mouth ity of tablet 08:48: daily. [address] Branch sumatriptan 2020-04 Yes Take by Un vale succ/naprox 0-26 mouth as ity of en sod 08:48: needed. [place] (SUMATRIPTA Medical N-NAPROXEN Branch ORAL) propranoloL 2020-04 Yes 10mg Take 10 mg Univers 10 mg 0-26 by mouth 2 ity of tablet 08:48: (two) [place] [id number] times Medical daily. Branch HYDROCHLORO 2020-04 Yes 10mg Take 10 mg Univers THIAZIDE 0-26 by mouth ity of ORAL 08:48: daily. [address] Branch pregabalin 2020-04 Yes Take by Uni vers (LYRICA 0-26 mouth ity of ORAL) 08:48: daily. [address] montelukast 2020-04 Yes 10mg Take 10 mg Univers 10 mg 0-26 by mouth ity of tablet 08:48: daily. [address] sumatriptan 2020-04 Yes Take by Un vale succ/naprox 0-26 mouth as ity of en sod 08:48: needed. [place] (SUMATRIPTA Medical N-NAPROXEN Branch ORAL) propranoloL 2020-04 Yes 10mg Take 10 mg Univers 10 mg 0-26 by mouth 2 ity of tablet 08:48: (two) [place] [address] times Medical daily. Branch HYDROCHLORO 2020-04 Yes 10mg Take 10 mg Univers THIAZIDE 0-26 by mouth ity of ORAL 08:48: daily. [address] pregabalin 2020-04 Yes Take by Uni vers (LYRICA 0-26 mouth ity of ORAL) 08:48: daily. [address] montelukast 2020-04 Yes 10mg Take 10 mg Univers 10 mg 0-26 by mouth ity of tablet 08:48: daily. [address] sumatriptan 2020-04 Yes Take by Un vale succ/naprox 0-26 mouth as ity of en sod 08:48: needed. [place] (SUMATRIPTA Medical N-NAPROXEN Branch ORAL) propranoloL 2020-04 Yes 10mg Take 10 mg Univers 10 mg 0-26 by mouth 2 ity of tablet 08:48: (two) [place] [address] times Medical daily. Branch HYDROCHLORO 2020-04 Yes 10mg Take 10 mg Univers THIAZIDE 0-26 by mouth ity of ORAL 08:48: daily. [address] pregabalin 2020-04 Yes Take by Uni vers (LYRICA 0-26 mouth ity of ORAL) 08:48: daily. [address] montelukast 2020-04 Yes 10mg Take 10 mg Univers 10 mg 0-26 by mouth ity of tablet 08:48: daily. [address] sumatriptan 2020-04 Yes Take by Un vale succ/naprox 0-26 mouth as ity of en sod 08:48: needed. [place] (SUMATRIPTA Medical N-NAPROXEN Branch ORAL) propranoloL 2020 Yes 10mg Take 10 mg Univers 10 mg 0-26 by mouth 2 ity of tablet 08:48: (two) [place] [address] times Medical daily. Branch HYDROCHLORO 2020-04 Yes 10mg Take 10 mg Univers THIAZIDE 0-26 by mouth ity of ORAL 08:48: daily. [address] Branch pregabalin 2020-04 Yes Take by Uni vers (LYRICA 0-26 mouth ity of ORAL) 08:48: daily. [address] Branch montelukast 2020-04 Yes 10mg Take 10 mg Univers 10 mg 0-26 by mouth ity of tablet 08:48: daily. [address] Branch sumatriptan 2020-04 Yes Take by Un vale succ/naprox 0-26 mouth as ity of en sod 08:48: needed. [place] (SUMATRIPTA Medical N-NAPROXEN Branch ORAL) propranoloL 2020-04 Yes 10mg Take 10 mg Univers 10 mg 0-26 by mouth 2 ity of tablet 08:48: (two) [place] [address] times Medical daily. Branch methIMAzole 2019-04 Yes 10mg Take 1 Univ ers 10 mg 2-29 tablet by ity of tablet 00:00: mouth. [address] Branch methIMAzole 2019-04 Yes 10mg Take 1 Univ ers 10 mg 2-29 tablet by ity of tablet 00:00: mouth. [address] Branch methIMAzole 2019-04 Yes 10mg Take 1 Univ ers 10 mg 2-29 tablet by ity of tablet 00:00: mouth. [address] methIMAzole 2019-04 Yes 10mg Take 1 Univ ers 10 mg 2-29 tablet by ity of tablet 00:00: mouth. [address] Branch methIMAzole 2019-04 Yes 10mg Take 1 Univ ers 10 mg 2-29 tablet by ity of tablet 00:00: mouth. [address] Branch methazolAMI 2019-04 Yes 50mg Take 50 mg [facility] DE 50 MG 2-24 by mouth College TABS 19:13: daily. of 25 Medicin e Pregabalin 2019-04 Yes Take by [place] esthela (LYRICA OR) 2-24 mouth. Colleg e 19:13: of 10 Medicin e zolpidem 2019-04 Yes 5mg Take 5 mg [facility] (AMBIEN) 5 2-24 by mouth Colle ge MG tablet 19:13: nightly as of 10 needed for Medicin Sleep. e montelukast 2019-04 Yes 10mg Take 10 mg [facility] (SINGULAIR) 2-24 by mouth Mayra ege 10 MG 19:13: daily. of tablet 10 Medicin e propranolol 2019-04 Yes 10mg Take 10 mg Yared (INDERAL) 2-24 by mouth Colleg e 10 MG 19:13: two times of tablet 10 daily. Medicin e methimazole Yes [id number] 15mg Take 1.5 [facility] (TAPAZOLE) 9-14 Tabs by Tavo e 10 MG 00:00: mouth of tablet 00 daily. Medicin e Propranolol Propranolol 0 Yes Sunil [address] HCl HCl 9-10 [facility] atenolol Yes 50mg Take 2 Yared (TENORMIN) 9-09 Tabs by Tavo e 25 MG 00:00: mouth of tablet 00 daily. Medicin e Ondansetron Ondansetron Yes Sunil [address] [facility] 8-18 Mccall on the [facility] - 00:00: tongue and Memoria 00 allow to l dissolve Outpati 30 minutes ent prior to Clinics meals Ambien Ambien Yes Sunil 1 tablet [facility] at bedtime [facility] - as needed [facility] Sumatriptan Sumatriptan Yes Sunil [address] Succinate Succinate [facility] as needed [facility] Methimazole Methimazole Yes Sunil [address] [facility] [facility] Montelukast Montelukast Yes Sunil [address] Sodium Sodium [facility] Lyrica Lyrica Yes Sunil [address] [facility] [facility] Hydrochloro Hydrochloro Yes Sunil [address] thiazide thiazide Mccall in the Luke s - morning [facility] Immunizations Ordered Filled Immunization Date Status Comments [facility] e Immunization Name Name Influenza Virus 2020-04-01 Completed Universit y of Vaccine Quad .5 mL 00:00:00 [facility] 6+ MO Branch Influenza Virus 2020-04-01 Completed Universit y of Vaccine Quad .5 mL 00:00:00 [facility] IM 6+ MO Branch Influenza Virus 2020-04-01 Completed Universit y of Vaccine Quad .5 mL 00:00:00 [facility] IM 6+ MO Branch Influenza Virus 2020-04-01 Completed Universit y of Vaccine Quad .5 mL 00:00:00 [facility] IM 6+ MO Branch Influenza Virus 2020-04-01 Completed Universit y of Vaccine Quad .5 mL 00:00:00 [facility] 6+ MO Branch TDAP (ADACEL) 2019-10-03 Completed University of VACCINE 00:00:00 [facility] TDAP (ADACEL) 2019-10-03 Completed University of VACCINE 00:00:00 [facility] TDAP (ADACEL) 2019-10-03 Completed University of VACCINE 00:00:00 [facility] TDAP (ADACEL) 2019-10-03 Completed University of VACCINE 00:00:00 [facility] TDAP (ADACEL) 2019-10-03 Completed University of VACCINE 00:00:00 [facility] Vital Signs Vital Name Observation Time Observation Value Comments Source Systolic blood 2021-02-10 03:01:00 152 mm[Hg] Univer sity of pressure [facility] Diastolic blood 2021-02-10 03:01:00 75 mm[Hg] Unive rsity of [facility] Heart rate 2021-02-10 03:01:00 61 /min [facility] Body temperature 2021-02-10 03:01:00 36.78 Tegan [facility] Respiratory rate 2021-02-10 03:01:00 20 /min [facility] Body weight 2021-02-10 03:01:00 136.079 kg [facility] BMI 2021-02-10 03:01:00 51.49 kg/m2 [facility] Oxygen saturation in 2021-02-10 03:01:00 100 /min [facility] Arterial blood by [facility] Pulse oximetry Branch Systolic blood 2021-01-27 13:51:00 110 mm[Hg] Univer sity of pressure [facility] Diastolic blood 2021-01-27 13:51:00 67 mm[Hg] Unive rsity of pressure [facility] Heart rate 2021-01-27 13:51:00 62 /min [facility] Respiratory rate 2021-01-27 13:48:00 19 /min [facility] Body height 2021-01-27 13:48:00 162.6 cm [facility] Body weight 2021-01-27 13:48:00 136.034 kg [facility] BMI 2021-01-27 13:48:00 51.48 kg/m2 [facility] Oxygen saturation in 2021-01-27 13:48:00 93 /min [facility] Arterial blood by [facility] Pulse oximetry Branch Systolic blood 2020-03-27 19:08:00 118 mm[Hg] [facility] pressure Medicine Diastolic blood 2020-03-27 19:08:00 74 mm[Hg] [facility] Medicine Heart rate 2020-03-27 19:08:00 60 /min [facility] ollege of Medicine Respiratory rate 2020-03-27 19:08:00 18 /min [facility] Body height 2020-03-27 19:08:00 162.6 cm [facility] ollege of [facility] Body weight 2020-03-27 19:08:00 130.999 kg [facility] of Medicine BMI 2020-03-27 19:08:00 49.57 [facility] Systolic blood 2020-03-27 19:08:00 118 mm[Hg] [facility] pressure Medicine Diastolic blood 2020-03-27 19:08:00 74 mm[Hg] [facility] Medicine Heart rate 2020-03-27 19:08:00 60 /min [facility] of Medicine Respiratory rate 2020-03-27 19:08:00 18 /min [facility] Body height 2020-03-27 19:08:00 162.6 cm [facility] ollege of [facility] Body weight 2020-03-27 19:08:00 130.999 kg [facility] of Medicine BMI 2020-03-27 19:08:00 49.57 kg/m2 [facility] of Medicine Procedures Procedure Date / Time Performed Performing Clinician Sourc e CT HEAD WO CONTRAST 2021-02-10 03:42:17 Fannie Brambila [facility] NOTICE OF PRIVACY 2021-02-10 02:58:16 Doctor Unassigned, No [facility] [place] PR[facility] Name [facility] CONSENT/REFUSAL FOR 2021-02-10 02:52:19 Doctor Unassigned, No Un iversity [facility] DIAGNOSIS AND Name Medical Branch TREATMENT Plan of Care Planned Activity Planned Date Details Comments Source Future Scheduled TSH [code = Ordered: [facility] Mayra ege of Test 57348-7] 03/27/2020 Medicine Future Scheduled T4 FREE [code = Ordered: [facility] C ollege of Test 3024-7] 03/27/2020 Medicine Future Scheduled T3 [code = 3053-6] Ordered: [employer] of Test 03/27/2020 Medicine Future Scheduled MAMMOGRAM ANNUAL [facility] of Test [code = MAMMOGRAM Medicine ANNUAL] Future Scheduled TETANUS SHOT [facility] Mayra ege of Test (ADULT) [code = Medicine TETANUS SHOT (ADULT)] Future Scheduled BMI FOLLOW [place] PLAN [facility] of Test [code = BMI FOLLOW Medicine UP PLAN] Future Scheduled HEPATITIS C [facility] Mayra ege of Test SCREENING [code = Medicine HEPATITIS C SCREENING] Future Scheduled HIV SCREENING [code [facility] College of Test = HIV SCREENING] Medicine Future Scheduled CERVICAL CANCER [facility] C ollege of Test SCREENING 3 YEAR Medicine FOLLOW UP [code = CERVICAL CANCER SCREENING 3 YEAR FOLLOW UP] Future Scheduled FLU VACCINE > 6 Yared C ollege of Test MONTHS [code = FLU Medicine VACCINE > 6 MONTHS] Encounters Start End Encounter Admission Attending Care Care Encounter Source Date/Time Date/Time Type Type Clinicians Facility Department ID 2021-05-07 Outpatient Mccall, [facility] [id number] 13:30[facility]02 [facility] 2021-05-01 Outpatient Mccall, [facility] [id number] 08:23:02 [facility] 2021-04-29 Outpatient Mccall, [facility] [id number] 14:31:29 [facility] 2021-04-29 Outpatient Mccall, [facility] [id number] 14:12:21 [facility] 2021-04-29 [facility], [facility] [id number] 12:44:58 Sunil [id number] [facility] 2021-04-29 Outpatient Mccall, [facility] [id number] 12:34:29 Sunil [id number] [facility] 2021-04-29 [facility] [id number] 12:27:16 Sunil [id number] [facility] 2021-04-29 [facility] [id number] 12:20:23 Sunil [id number] [facility] 2021-04-29 [facility] [id number] 11:59:35 Sunil [id number] [facility] 2021-04-29 [facility] [id number] 11:46:14 Sunil [id number] [facility] 2021-04-29 [facility] [id number] 11:27:12 Sunil [id number] [facility] 2021-07-28 2021-07-28 Outpatient Tayler MARTINO [facility] [id number] Univers 09:00:00 09:00:00 SENDIL [id number] ity [facility] 2021-05-24 2021-05-24 Nurse LAUREN Simms [id number] Univers 00:00:00 00:00:00 Triage Rupinder PETERSON [id number] it [facility] [id number] Ronnie as [phone] [address] 2021-05-23 2021-05-23 ambulatory [facility] [id number] [facility] 2021-05-14 2021-05-14 [facility] [id number] [facility] 2021-05-07 2021-05-07 ambulatory [facility] [id number] [facility] 2021-05-05 2021-05-05 ambulatory [facility] [id number] [facility] 2021-05-01 2021-05-01 ambulatory [facility] [id number] [facility] 2021-04-10 2021-04-10 ambulatory [facility] [id number] [facility] 2021-04-06 2021-04-06 ambulatory [facility] [id number] [facility] 2021-04-06 2021-04-06 ambulatory [facility] [id number] [facility] 2021-02-12 2021-02-12 ambulatory [facility] [id number] [facility] 2021-02-09 2021-02-09 [facility] [id number] Univers 21:28:00 23:35:00 FANNIE howard [facility] 2021-02-09 2021-02-09 Emergency Kosta [facility] [id number] Univers 21:28:00 23:35:00 Fannie [place] [id number] i ty of [place] [id number] [facility] [phone] [address] 2021-02-09 2021-02-09 Orders Doctor LAUREN [id number] Univers 00:00:00 00:00:00 Only Unassigned, NICHOLAS [id number] ity of [place] [facility] [id number] [facility] [phone] [address] 2021-02-05 2021-02-05 [facility] [id number] Univers 14:00:00 14:00:00 SENDIL [id number] [facility] 2021-01-29 2021-01-29 ambulatory [facility] [id number] [facility] 2021-01-27 2021-01-27 [facility] [id number] Univers 08:24:21 09:10:00 Visit Sendil Sheyla Cunningham [id number] [facility] [id number] Airam Samson [id number] [address] 2021-01-27 2021-01-27 [facility] [id number] Univers 08:30:00 08:30:00 SENDIL [id number] [facility] 2021-01-27 2021-01-27 [facility] [id number] Univers 08:30:00 08:30:00 SENDIL [facility] 2021-01-25 2021-01-25 Outpatient [facility] [id number] [facility] 2021-01-22 2021-01-22 Outpatient [facility] [id number] [facility] 2021-01-19 2021-01-19 Outpatient [facility] [id number] [facility] 2020-12-10 2020-12-10 Outpatient [facility] [id number] [facility] 2020-11-21 2020-11-21 Outpatient [facility] [id number] [facility] 2020-11-18 2020-11-18 Outpatient [facility] [id number] [facility] 2020-11-05 2020-11-05 Outpatient [facility] [id number] [facility] 2020-10-30 2020-10-30 Outpatient Tayler MARTINO [facility] [id number] Univers 11:30:00 11:30:00 SENDIL [id number] [facility] 2020-10-30 2020-10-30 Outpatient Tayler MARTINO [facility] [id number] Univers 11:30:00 11:30:00 SENDIL [facility] 2020-10-02 2020-10-02 Outpatient Tayler MARTINO [facility] [id number] Univers 09:00:00 09:00:00 SENDIL [id number] [facility] 2020-09-15 2020-09-15 Outpatient [facility] [id number] [facility] 2020-09-04 2020-09-04 Outpatient Tayler MARTINO [facility] [id number] Univers 11:00:00 11:00:00 SENDIL [id number] [facility] 2020-09-04 2020-09-04 Outpatient Tayler MARTINO [facility] [id number] Univers 11:00:00 11:00:00 SENDIL [facility] 2020-08-20 2020-08-20 Outpatient [facility] [id number] [facility] 2020-08-19 2020-08-19 Outpatient [facility] [id number] [facility] 2020-07-15 2020-07-15 Outpatient Tayler MARTINO [facility] [id number] Univers 10:00:00 10:00:00 SENDIL [id number] [facility] 2020-07-15 2020-07-15 Outpatient R SALENA [facility] [id number] Univers 10:00:00 10:00:00 SENDIL [facility] 2020-07-11 2020-07-11 Outpatient [facility] [id number] [facility] 2020-07-10 2020-07-10 Outpatient [facility] [id number] [facility] 2020-07-02 2020-07-02 Outpatient [facility] [id number] [facility] 2020-06-29 2020-06-29 Outpatient [facility] [id number] [facility] 2020-06-10 2020-06-10 Outpatient [facility] [id number] [facility] 2020-06-03 2020-06-03 Outpatient [facility] [id number] [facility] 2020-06-02 2020-06-02 Telephone Salena [facility] [id number] 00:00:00 00:00:00 Sendil Sheyla Cunningham [id number] [place] [id number] [place] [id number] nal 059 [facility] 2020-05-31 2020-05-31 Outpatient [facility]ML[facility] [id number] [facility] 2020-05-07 2020-05-07 Outpatient [facility] [id number] [facility] 2020-05-05 2020-05-05 [facility] [id number] 00:00:00 00:00:00 [facility] 350.1.13.10 [place] 4.2.7[facility]2.686 [id number] nal 059 [facility] 2020-05-02 2020-05-02 [facility] [id number] 08:58:15 23:59:00 Encounter Sendil [facility]. SPECIALTY 350.1.13.10 CARE 4.2.7.2.686 CENTER AT [id number] [facility] [address] [place] [address] 2020-05-02 2020-05-02 Outpatient [facility] [id number] [facility] 09:00:00 09:00:00 SENDIL [facility] 2020-05-02 2020-05-02 [facility] [id number] 08:32:07 08:57:00 Encounter Sendil [facility] SPECIALTY 350.1.13.10 CARE 4.2.7.2.686 CENTER AT [id number] [facility] [address] [place] [address] 2020-05-02 2020-05-02 [facility] [id number] 08:31:50 08:31:50 Encounter Sendil [facility] SPECIALTY 350.1.13.10 CARE 4.2.7.2.686 CENTER AT [id number] [facility] [address] [place] [address] 2020-05-02 2020-05-02 [facility] [id number] 08:31:12 08:31:12 Encounter Sendil [facility] SPECIALTY 350.1.13.10 CARE 4.2.7.2.686 CENTER AT [id number] [facility] 80[facility] 2020-04-24 2020-04-24 Outpatient R [facility] [id number] Univers 13:00:00 13:00:00 [id number] [facility] 2020-04-24 2020-04-24 Outpatient [facility] [id number] [facility] 10:30:00 10:30:00 SEND[facility] 2020-04-16 2020-04-16 [id number] 2020-04-11 2020-04-11 Orders Doctor LAUREN [id number] 00:00:00 00:00:00 Only Unassigned, NICHOLAS 350.1.13.10 [place] [facility] 4.2.7.2.686 [id number] 2020-04-08 2020-04-08 [facility] [id number] 00:00:00 00:00:00 Sendil Sheyla Cunningham 350.1.13.10 [place] 4.2.7.2.686 [facility] [id number] [facility] 2020-04-01 2020-04-01 [facility] [id number] Univers 11:00:00 11:00:00 SENDIL [id number] [facility] 2020-04-01 2020-04-01 [facility] [id number] Univers 11:00:00 11:00:00 SENDIL [facility] 2020-04-01 2020-04-01 [facility] [id number] 2020-03-31 2020-03-31 [facility] [id number] 2020-03-27 2020-03-27 Office Cool, BCM [id number] 13:04:09 13:34:09 Visit Dimpi Ramses AMBULATOR 350.1.13.21 Y 0.2.7.2.686 [id number] 2020-03-27 2020-03-27 Office Cool, BCM [id number] [facility] 13:04:09 13:34:09 Visit Dimpi Ramses AMBULATOR 350.1.13.21 College Y 0.2.7.2.686 [id number] [facility] shin 310 e 2020-03-24 2020-03-24 Outpatient [facility]MLC [facility] [id number] [facility] 2020-03-17 2020-03-17 Outpatient [facility] [id number] [facility] 2020-03-12 2020-03-12 Outpatient [facility] [id number] [facility] 2020-03-11 2020-03-11 Outpatient [facility] [id number] [facility] 2020-03-03 2020-03-03 Outpatient [facility] [id number] [facility] 2020-02-14 2020-02-14 Outpatient [facility] [id number] [facility] 2020-02-11 2020-02-11 Outpatient [facility] [id number] [facility] 2020-02-08 2020-02-08 Outpatient [facility] [id number] [facility] 2020-02-01 2020-02-01 Outpatient [facility] [id number] Univers 16:00:00 16:00:00 [id number] ity [facility] 2020-02-01 2020-02-01 Outpatient R [facility] [id number] Univers 16:00:00 16:00:00 [facility] 2020-01-30 2020-01-30 Outpatient [facility] [id number] [facility] 2020-01-29 2020-01-29 Outpatient R SALENA [facility] [id number] Univers 11:30:00 11:30:00 SENDIL [id number] [facility] 2020-01-29 2020-01-29 Outpatient Tayler MARTINO [facility] [id number] Univers 11:30:00 11:30:00 SENDIL [facility] 2020-01-23 2020-01-23 Outpatient [facility] [id number] [facility] 2020-01-22 2020-01-22 Outpatient [facility] [id number] [facility] 2020-01-15 2020-01-15 Outpatient [facility] [id number] [facility] 2020-01-09 2020-01-09 Outpatient [facility] [id number] [facility] 2020-01-07 2020-01-07 Outpatient [facility] [id number] [facility] 2020-01-03 2020-01-03 Outpatient Tayler BEAR [facility] [id number] Univers 11:15:00 11:15:00 [facility] 2020-01-03 2020-01-03 Outpatient Tayler BEAR [facility] [id number] Univers 11:15:00 11:15:00 [facility] 2020-01-01 2020-01-01 Outpatient Tayler BEAR [facility] [id number] Univers 15:30:00 15:30:00 ISAMAR [id number] [facility] 2020-01-01 2020-01-01 Outpatient Tayler BEAR [facility] [id number] Univers 15:30:00 15:30:00 [facility] 2019-12-19 2019-12-19 [facility] [id number] 16:30:00 16:30:00 [employer] [facility] Medicine Outpati ent Clinics 2019-12-18 2019-12-18 Outpatient R BEAR, [facility] [id number] Univers 15:30:00 15:30:00 ISAMAR [id number] [facility] 2019-12-18 2019-12-18 [facility] [id number] [facility] 13:33:00 13:33:00 Chomp Drop Messages [facility] Medicine Outpati ent Clinics 2019-12-18 2019-12-18 Outpatient R [facility] [id number] Univers 10:00:00 10:00:00 [facility] 2019-12-13 2019-12-13 Outpatient MARTINO, [facility] [id number] Univers 11:00:00 11:00:00 SENDIL [id number] [facility] 2019-12-13 2019-12-13 Outpatient R SALENA, [facility] [id number] Univers 11:00:00 11:00:00 SENDIL ity [facility] 2019-12-09 2019-12-09 [facility] [id number] [facility] 17:43:00 17:43:00 Chomp Drop Messages [facility] Medicine Outpati ent Clinics 2019-12-04 2019-12-04 Outpatient R BEAR, [facility] [id number] Univers 13:30:00 13:30:00 ISAMAR [facility] 2019-12-04 2019-12-04 Outpatient R CHEMA, [facility] [id number] Univers 13:30:00 13:30:00 ISAMAR ity [facility] 2019-11-26 2019-11-26 [facility] [id number] [facility] 15:17:00 15:17:00 t Chomp Drop Messages [facility] Medicine Medicine Outpati ent Clinics 2019-11-24 2019-11-24 [facility] [id number] [facility] 15:24:00 15:24:00 t [employer] [facility] Medicine l Medicine Outpati ent Clinics 2019-11-22 2019-11-22 [facility] [id number] [facility] 16:03:00 16:03:00 t Todd Todd [employer] s - Drop Messages [facility] Medicine Outpati ent Clinics 2019-11-19 2019-11-19 [facility] [id number] [facility] 14:35:00 14:35:00 t [employer] [facility] Medicine Outpati ent Clinics 2019-11-16 2019-11-16 [facility] [id number] [facility] 09:15:00 09:15:00 t [employer] [facility] Medicine Outpati ent Clinics 2019-11-09 2019-11-09 Outpatient SLSL [facility] [id number] [facility] 00:00:00 00:00:00 2019-11-08 2019-11-08 [facility] [id number] [facility] 09:12:00 09:12:00 t [employer] [facility] Medicine Outpati ent Clinics 2019-11-08 2019-11-08 Outpatient SLSL [facility] [id number] [facility] 00:00:00 00:00:00 2019-11-08 2019-11-08 Outpatient EL [facility]SL [facility] [id number] [facility] 00:00:00 00:00:00 2019-11-02 2019-11-02 Outpatient SLSL [facility] [id number] [facility] 00:00:00 00:00:00 2019-11-01 2019-11-01 Outpatient EL SLSL [facility] [id number] [facility] 00:00:00 00:00:00 2019-11-01 2019-11-01 Outpatient SLSL [facility] [id number] [facility] 00:00:00 00:00:00 2019-10-30 2019-10-30 [facility] [id number] [facility] 17:05:00 17:05:00 t [employer] [facility] Medicine Outpati ent Clinics 2019-10-29 2019-10-29 [facility] [id number] [facility] 15:04:00 15:04:00 t [employer] [facility] Medicine Outpati ent Clinics 2019-10-29 2019-10-29 [facility] [id number] 08:06:00 08:06:00 [facility] Outpati ent [facility] 2019-10-23 2019-10-23 Outpatient Tayler BEAR [facility] [id number] Univers 15:00:00 15:00:00 ISAMAR [id number] [facility] 2019-10-23 2019-10-23 Outpatient Tayler BEAR [facility] [id number] Univers 15:00:00 15:00:00 [facility]AR [facility] 2019-10-22 2019-10-22 Outpatient Asher Sterlingt [id number] 12:23:00 12:23:00 [facility] Outpati ent [facility] 2019-10-18 2019-10-18 Outpatient Asher Sterlingt [id number] [facility] 14:30:00 14:30:00 [facility] Outpati ent [facility] 2019-10-11 2019-10-11 [facility] [id number] Univers 09:45:00 09:45:00 ISAMAR [id number] [facility] 2019-09-20 2019-09-20 Outpatient Asher Sterlingt [id number] [facility] 09:00:00 09:00:00 [facility] Results Test Description Test Time Test Comments Results Result Sour e Comments THYROID IMAGING 2019-11-09 FINAL REPORT PATIENT UPTAKE, MULTIPLE 09:03:00 ID: [id number] PROCEDURE: THYROID SCAN AND UPTAKES CPT CODE: 75339 INDICATION: Hyperthyroidism PROTOCOL: 0.238 mCi of I-123 [...] Hi Verified Date/Time: 11/09/2019 09:03:02 Reading Location: [address] Reading Room
[2021-06-20 01:57] LABS: Absolute Lymphocytes (CBC) 2.1 K/uL (0.7-4.9); Hematocrit 43.3 % (36.0-45.0); Lymphocytes % 22.7 % (15.3-44.8); RBC Red Blood Cell Count 4.96 M/uL (3.86-4.86)
[2021-06-20 02:16] LABS: ALT/SGPT 26 U/L (12-78); AST/SGOT 11 U/L (15-37); Albumin 3.6 g/dL (3.4-5.0); Alkaline Phosphatase 167 U/L (45-117); BUN Blood Urea Nitrogen 12 mg/dL (7-18); Bicarbonate 29 mmol/L (21-32); Bilirubin Total 0.2 mg/dL (0.2-1.0); Glucose Level 103 mg/dL (74-106); NT PRO-BNP 20 pg/mL (<125); Potassium 3.2 mmol/L (3.5-5.1); Protein, Total 7.8 g/dL (6.4-8.2); Sodium Level 138 mmol/L (136-145)
[2021-06-20 02:17] LABS: Bilirubin Direct < 0.1 mg/dL (0-0.2)
[2021-06-20] MEDS ORDERED: MORPHINE 4 MG/ML SYR ONE ×2 (02:54→04:36)
[2021-06-20] MEDS ORDERED: ONDANSETRON 4 MG/2 ML VIAL ONE (02:54)
[2021-06-20 04:22] LABS: T3 Free 2.46 pg/mL (2.18-3.98); Thyroid Stimulating Hormone 2.06 uIU/mL (0.360-3.740)
[2021-06-20] MEDS ORDERED: POTASSIUM CL SA 10 MEQ TAB PO ONE (04:36)
--- NOTE | 2021-06-20 07:19 | EDPHYS ---
Physician Documentation [facility] Name: Skye Figueroa Age: 46 yrs Sex: Female : 1975 Arrival Date: 06/20/2021 Time: 01:07 Bed 2 Private MD: [facility] ED Physician Rigo Espino HPI: 06/20 08:18 This 46 yrs old Female presents to ER via Wheelchair with complaints of Chest Pain, kdr Blood Pressure Problem. 08:18 The patient or guardian reports chest pain that is located primarily in the anterior kdr chest wall, bilaterally, chest diffusely. Onset: gradually, at 23:30. The pain does not radiate. Associated signs and symptoms: Pertinent positives: None. Pertinent negatives: abdominal pain, cough, diaphoresis, dizziness. The chest pain is described as aching, dull, a pressure. Duration: The patient or guardian reports a single episode, that is still ongoing, that lasted an unknown period of time, . Severity of pain: At its worst the pain was mild. The patient has not experienced similar symptoms in the past. Patient presents to the ED complaining of chest pressure since about 1130 last evening. Patient denies shortness of breath. Patient otherwise not in any acute distress and does not appear to be toxic or needing emergent intervention of any sort at this time her pain has been coming and going for several days. She states that her blood pressure and pulse have been very erratic.. Historical: - Allergies: 07:13 Naproxen; mendez 07:13 tramadol; mendez - Home Meds: 07:13 Hydrochlorothiazide Oral for Hypertension [Active]; pregabalin 50 mg oral cap [Active]; mendez methimazole 10 mg Oral tab 1 tab once daily [Active]; propranolol 20 mg Oral tab [Active]; Singulair 10 mg Oral tab 1 tab once daily [Active]; Zoloft 100 mg Oral tab 1 tab once daily [Active]; - PMHx: 01:27 Anxiety; BRAIN TUMOR; graves disease; Hydrocephalus; Migraines; Seizures; al4 - PSHx: 01:27 Appendectomy; Brain sx; Cholecystectomy; eye sx; [employer] shunt; al4 - Immunization history:: Adult Immunizations Pneumococcal vaccine is up to date, Flu vaccine is up to date. - Social history:: Smoking status: Patient denies any tobacco usage or history of. ROS: 08:18 Constitutional: Negative for fever, chills, and weight loss, Eyes: Negative for injury, kdr pain, redness, and discharge, ENT: Negative for injury, pain, and discharge, Neck: Negative for injury, pain, and swelling, Respiratory: Negative for shortness of breath, cough, wheezing, and pleuritic chest pain, Abdomen/GI: Negative for abdominal pain, nausea, vomiting, diarrhea, and constipation, Back: Negative for injury and pain, : Negative for injury, bleeding, discharge, and swelling, MS/Extremity: Negative for injury and deformity, Skin: Negative for injury, rash, and discoloration, Neuro: Negative for headache, weakness, numbness, tingling, and seizure activity. Psych: Negative for depression, anxiety, suicide ideation, homicidal ideation, and hallucinations, Allergy/Immunology: Negative for hives, rash, and allergies, Endocrine: Negative for neck swelling, polydipsia, polyuria, polyphagia, and marked weight changes, Hematologic/Lymphatic: Negative for swollen nodes, abnormal bleeding, and unusual bruising. 08:18 Cardiovascular: Positive for chest pain, Negative for edema, orthopnea, palpitations, paroxysmal nocturnal dyspnea, acute changes. Exam: 08:18 Constitutional: This is a well developed, well nourished obese patient who is awake, kdr alert, and in no acute distress. Head/Face: Normocephalic, atraumatic. Eyes: Pupils equal round and reactive to light, extra-ocular motions intact. Lids and lashes normal. Conjunctiva and sclera are non-icteric and not injected. Cornea within normal limits. Periorbital areas with no swelling, redness, or edema. Neck: Trachea midline, no thyromegaly or masses palpated, and no cervical lymphadenopathy. Supple, full range of motion without nuchal rigidity, or vertebral point tenderness. No Meningismus. Chest/axilla: Normal chest wall appearance and motion. Nontender with no deformity. No lesions are appreciated. Cardiovascular: Regular rate and rhythm with a normal S1 and S2. No gallops, murmurs, or rubs. Normal PMI, no JVD. No pulse deficits. Respiratory: Lungs have equal breath sounds bilaterally, clear to auscultation and percussion. No rales, rhonchi or wheezes noted. No increased work of breathing, no retractions or nasal flaring. Abdomen/GI: Soft, non-tender, with normal bowel sounds. No distension or tympany. No guarding or rebound. No evidence of tenderness throughout. Back: No spinal tenderness. No costovertebral tenderness. Full range of motion. Skin: Warm, dry with normal turgor. Normal color with no rashes, no lesions, and no evidence of cellulitis. MS/ Extremity: Pulses equal, no cyanosis. Neurovascular intact. Full, normal range of motion. Neuro: Awake and alert, GCS 15, oriented to person, place, time, and situation. Cranial nerves II-XII grossly intact. Motor strength 5/5 in all extremities. Sensory grossly intact. Cerebellar exam normal. Normal gait. Psych: Awake, alert, with orientation to person, place and time. Behavior, mood, and affect are within normal limits. Vital Signs: 01:12 BP 119 / 78; Pulse 70; Resp 16; Pulse Ox 100% on R/A; al4 02:15 BP 115 / 53; Pulse 66; Resp 25; Pulse Ox 96% on R/A; ll3 03:15 BP 121 / 59; Pulse 69; Resp 21; Pulse Ox 94% on R/A; ll3 04:41 BP 117 / 65; Pulse 76; Resp 20 S; Pulse Ox 98% on R/A; al4 06:02 BP 106 / 64; Pulse 60; Resp 16; Pulse Ox 94% on R/A; ll3 07:13 BP 112 / 60; Pulse 63; Resp 17; Pulse Ox 95% on R/A; mendez MDM: 07:19 Patient medically screened. kdr 08:22 Data reviewed: vital signs, nurses notes, lab test result(s), EKG, radiologic studies. kdr Counseling: I had a detailed discussion with the patient and/or guardian regarding: the need for further work-up and treatment in the hospital, the need to transfer to another facility. 08:22 Counseling: I had a detailed discussion with the patient and/or guardian regarding: lab kdr results, radiology results, the need for outpatient follow up. 06/20 01:27 Order name: Basic Metabolic Panel cp 06/20 01:27 Order name: CBC with Diff cp 06/20 01:27 Order name: LFT's cp 06/20 01:27 Order name: NT PRO-BNP cp 06/20 01:27 Order name: PT-INR; Complete Time: 04:17 cp 06/20 01:27 Order name: Troponin HS; Complete Time: 04:17 cp 06/20 01:28 Order name: Basic Metabolic Panel; Complete Time: 04:17 EDMS 06/20 01:28 Order name: Liver (Hepatic) Function; Complete Time: 04:17 EDMS 06/20 01:28 Order name: NT PRO-BNP; Complete Time: 04:17 EDMS 06/20 01:28 Order name: CBC with Automated Diff; Complete Time: 04:17 EDMS 06/20 03:40 Order name: TSH kdr 06/20 03:40 Order name: T3 Free kdr 06/20 03:40 Order name: T4 Free kdr 06/20 03:41 Order name: Thyroid Stimulating Hormone; Complete Time: 05:10 EDMS 06/20 01:27 Order name: XRAY Chest (1 view) cp 06/20 01:27 Order name: EKG; Complete Time: 01:28 cp 06/20 01:27 Order name: Cardiac monitoring; Complete Time: 01:34 cp 06/20 01:27 Order name: EKG - Nurse/Tech; Complete Time: 01:34 cp 06/20 01:27 Order name: IV Saline Lock; Complete Time: 01:54 cp 06/20 01:27 Order name: Labs collected and sent; Complete Time: 01:54 cp 06/20 01:27 Order name: O2 Per Protocol; Complete Time: 01:34 cp 06/20 01:27 Order name: O2 Sat Monitoring; Complete Time: 01:34 cp 06/20 03:41 Order name: T3 Free; Complete Time: 05:10 EDMS 06/20 03:41 Order name: T4 Free; Complete Time: 05:10 EDMS 06/20 05:10 Order name: Troponin High Sensitivity; Complete Time: 06:47 kdr Administered Medications: 03:00 Drug: morphine 4 mg Route: IVP; Site: right antecubital; ll3 03:55 Follow up: Response: No adverse reaction; Marked relief of symptoms ll3 03:00 Drug: Zofran (Ondansetron) 4 mg Route: IVP; Site: right antecubital; ll3 03:55 Follow up: Response: No adverse reaction ll3 04:41 Drug: Potassium Chloride 40 mEq Route: PO; al4 07:33 Follow up: Response: No adverse reaction mendez 04:41 Drug: morphine 4 mg Route: IVP; Site: right antecubital; al4 07:33 Follow up: Response: No adverse reaction mendez Disposition Summary: 06/20/21 07:19 Discharge Ordered Location: Home kdr Problem: an acute exacerbation kdr Symptoms: have improved kdr Condition: Stable kdr Diagnosis - Chest pain, unspecified kdr - Hypertensive heart disease without heart failure kdr - Other specified hypothyroidism kdr Followup: kdr - With: Sunil Mccall, DO - When: 2 - 3 days - Reason: If symptoms return, Further diagnostic work-up, Recheck today's complaints, Continuance of care, Re-evaluation by your physician Discharge Instructions: - Discharge Summary Sheet kdr - Hypothyroidism kdr - Nonspecific Chest Pain, Adult, [id number] kdr - Hypertension, Adult, [id number] kdr Forms: - Medication Reconciliation Form kdr - Thank You Letter kdr Signatures: Dispatcher [employer] Rigo Fagan MD MD kdr Gallito Kincaid PA PA cp Loubet, Lynsea, RN RN 3 Asif Saab al4 Pat Perez RN RN mendez
--- NOTE | 2021-06-20 07:19 | ER ---
Nurse's Notes [facility] Name: Skye Figueroa Age: 46 yrs Sex: Female : 1975 Arrival Date: 06/20/2021 Time: 01:07 Bed 2 Private MD: Sunil Mccall Diagnosis: Chest pain, unspecified;Hypertensive heart disease without heart failure;Other specified hypothyroidism Presentation: 06/20 01:12 Initial Sepsis Screen: Does the patient meet any 2 criteria? No. Patient's initial al4 sepsis screen is negative. Does the patient have a suspected source of infection? No. Patient's initial sepsis screen is negative. Risk Assessment: Do you want to hurt yourself or someone else? Patient reports no desire to harm self or others. Onset of symptoms was June 19, 2021. 01:12 Acuity: NIDA 3 al4 01:25 Chief complaint: Patient states: c/o chest pain that feels like pressure since 2330 al4 last night. denies sob. 01:25 Method Of Arrival: Wheelchair al4 01:25 Coronavirus screen: Vaccine status: Patient reports being unvaccinated. Ebola Screen: al4 No symptoms or risks identified at this time. Triage Assessment: 01:27 General: Appears in no apparent distress. uncomfortable, Behavior is calm, cooperative. al4 Pain: Complains of pain in chest. 01:27 Neuro: Level of Consciousness is awake, alert, obeys commands, Oriented to person, al4 place, time, situation. Cardiovascular: Capillary refill < 3 seconds Patient's skin is warm and dry. Chest pain quality is heaviness. Respiratory: Airway is patent Respiratory effort is unlabored, Respiratory pattern is regular. Musculoskeletal: Circulation, motion, and sensation intact. 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 - Social history:: Smoking status: Patient denies any tobacco usage or history of. Screenin:35 Abuse screen: Denies threats or abuse. Nutritional screening: No deficits noted. ll3 Tuberculosis screening: No symptoms or risk factors identified. 07:13 Fall Risk IV access (20 points). mendez Assessment: 01:35 General: Appears uncomfortable, Behavior is calm, cooperative. Pain: Complains of pain ll3 in chest Pain does not radiate. Pain currently is 9 out of 10 on a pain scale. at worst was 10 out of 10 on a pain scale. Quality of pain is described as heavy, pressure, Pain began 11:30 PM last night Is intermittent, Noted to be guarding. Neuro: Level of Consciousness is awake, alert, obeys commands, Oriented to person, place, time, situation. Cardiovascular: Reports chest pain, Denies shortness of breath, Patient's skin is warm and dry. Chest pain is described as Pain is 9 out of 10 on a pain scale. quality is heaviness, began 3 hours prior to arrival episodes are intermittent. Respiratory: Respiratory effort is even, unlabored, Respiratory pattern is regular, symmetrical. Derm: Skin is pink, warm \\T\\ dry. 02:30 Reassessment: Patient and/or family updated on plan of care and expected duration. Pain ll3 level reassessed. Patient is alert, oriented x 3, equal unlabored respirations, skin warm/dry/pink. States pain is 9/10. 03:48 Reassessment: Patient and/or family updated on plan of care and expected duration. Pain ll3 level reassessed. Patient is alert, oriented x 3, equal unlabored respirations, skin warm/dry/pink. Pain is 3/10 Patient states feeling better. 05:00 Reassessment: Patient and/or family updated on plan of care and expected duration. Pain ll3 level reassessed. Patient is alert, oriented x 3, equal unlabored respirations, skin warm/dry/pink. States pain is 4/10, "It feels like an elephant is sitting on my chest" Patient states feeling better. 06:02 Reassessment: Patient and/or family updated on plan of care and expected duration. Pain ll3 level reassessed. Patient is alert, oriented x 3, equal unlabored respirations, skin warm/dry/pink. Patient states feeling better. Vital Signs: 01:12 BP 119 / 78; Pulse 70; Resp 16; Pulse Ox 100% on R/A; al4 02:15 BP 115 / 53; Pulse 66; Resp 25; Pulse Ox 96% on R/A; ll3 03:15 BP 121 / 59; Pulse 69; Resp 21; Pulse Ox 94% on R/A; ll3 04:41 BP 117 / 65; Pulse 76; Resp 20 S; Pulse Ox 98% on R/A; al4 06:02 BP 106 / 64; Pulse 60; Resp 16; Pulse Ox 94% on R/A; ll3 07:13 BP 112 / 60; Pulse 63; Resp 17; Pulse Ox 95% on R/A; mendez ED Course: 01:07 Patient arrived in ED. es 01:07 Sunil Mccall DO is Private Physician. es 01:22 EKG done. al4 01:27 Triage completed. al4 01:27 Arm band placed on. al4 01:35 Rigo Espino MD is Attending Physician. kdr 01:35 Patient has correct armband on for positive identification. Placed in gown. Bed in low ll3 position. Call light in reach. Side rails up X 1. operations dispatcher on. Pulse ox on. NIBP on. 01:35 Patient maintains SpO2 saturation greater than 95% on room air. ll3 01:54 Initial lab(s) drawn, by me, sent to lab. Inserted saline lock: 22 gauge in right ll3 antecubital area, using aseptic technique. Blood collected. 02:00 XRAY Chest (1 view) In Process Unspecified. EDMS 07:13 No provider procedures requiring assistance completed. mendez 07:17 Sunil Mccall DO is Referral Physician. kdr 07:33 IV discontinued, intact, Pressure dressing applied. mendez Administered Medications: 03:00 Drug: morphine 4 mg Route: IVP; Site: right antecubital; ll3 03:55 Follow up: Response: No adverse reaction; Marked relief of symptoms ll3 03:00 Drug: Zofran (Ondansetron) 4 mg Route: IVP; Site: right antecubital; ll3 03:55 Follow up: Response: No adverse reaction ll3 04:41 Drug: Potassium Chloride 40 mEq Route: PO; al4 07:33 Follow up: Response: No adverse reaction mendez 04:41 Drug: morphine 4 mg Route: IVP; Site: right antecubital; al4 07:33 Follow up: Response: No adverse reaction mendez Outcome: 07:19 Discharge ordered by . kdr 07:33 Discharged to home ambulatory. mendez 07:33 Condition: good 07:33 Discharge instructions given to patient. 07:33 Patient left the ED. mendez Signatures: Dispatcher [employer] Rigo Fagan MD MD kdr Salyer, Edna es Loubet, Lynsea, RN RN 3 Asif Saab al4 Pat Perez RN RN mendez Corrections: (The following items were deleted from the chart) 01:27 01:12 Onset of symptoms was June 20, 2021 michael al4
[2021-06-20 07:45] VITALS: BP 112/60; O2SAT 95
--- NOTE | 2021-06-20 20:02 | RAD REPORT ---
EXAM DESCRIPTION: RAD - Chest Single View - 06/20/2021 2:00 am CLINICAL HISTORY: 46 years, Female, CHEST PAIN COMPARISON: 01/15/2020 FINDINGS: Single view of the chest was obtained portable. Prior films were compared. End there is tu bular structure within the right medial chest corresponding to most likely ventriculoperitoneal shunt s. External EKG leads within the [id number] limits diagnosis. The cardiomediastinal silhouette d emonstrate to be unremarkable. The heart is not enlarged. The thoracic aorta is unremarkable. Costo phrenic angles are sharp. No areas of consolidation or masses are seen. The rest of the soft tiss ue and bony structures demonstrate to be unremarkable. IMPRESSION: No acute cardiopulmonary disease. Ventriculoperitoneal shunts. Electronically signed by: Brendan Alejo MD 06/20/2021 2:15 AM CDT Due to temporary technical issues with the PACS/Fluency reporting system, reports are being signed by the in house radiologists without review as a courtesy to insure prompt reporting. The interpreting radiologist is fully responsible for the content of the report.
--- NOTE | 2021-06-22 08:24 | EKG ---
Test Date: 2021-06-20 Test Time: 01:23:07 C Engineer: DWAYNE MEASUREMENT RESULTS: Intervals: Rate: 66 MI: 178 QRSD: 80 QT: 406 QTc: 425 [place]: P: 34 MI: 178 QRS: 29 T: 38 INTERPRETIVE STATEMENTS: Normal sinus rhythm Cannot rule out Anterior infarct, age undetermined Abnormal ECG Compared to ECG 05/14/2021 05:50:46 Myocardial infarct finding now present Sinus bradycardia no longer present Electronically Signed On 06-22-21 08:21:02 CDT by Neel Sosa
== END 2021-06-20 07:33 | disposition home or self-care (01) ==
LOC: ER 01:03
DX: I11.9 Hypertensive heart disease without heart failure (principal); E03.8 Other specified hypothyroidism; F41.9 Anxiety disorder, unspecified; I10 Essential (primary) hypertension; Z98.2 Presence of cerebrospinal fluid drainage device; Z88.5 Allergy status to narcotic agent
CPT/HCPCS: 93005; 85025; 80048; 36415; 85610; 80076; 84443; 84484 ×2; 84481; 84439; 83880; 71045; 96375; 96374; 99285; J2405

== ENCOUNTER 2021-08-03 19:26 | Inpatient (IN) | payer OTHER ==
--- OUTSIDE RECORDS SUMMARY | 2021-08-03 19:28 | XMS REPORT | Continuity of Care Document ---
:1975 Author Organization [facility] t Address [address] [place] [address] Care Team Providers Name Role Phone Jed Mccall Primary Care Physician Jed Mccall Attending Clinician Unavailable Moises HAHN, K.H. Attending Clinician Doctor Unassigned, Name Attending Clinician Unavailable Ramses Cool MD Attending Clinician Payers Payer Name Policy Type Policy Number Effective Date Expiration Date Kenneth hunter [facility] [id number] 2019 00:00:00 PLAN Problems Condition Condition Condition Status Onset Resolution Last Treating Co mments Source Name Details Category Date Date Treatment Clinician Date Immune to Immune to Disease Active Uni vers varicella varicella 6- ity of 00:00: [address] BMI BMI Disease Active Univers 45.0-49.9, 45.0-49.9, 6-28 it y of adult adult 00:00: [address] Excessive Excessive Disease Active Uni vers or or 6-21 ity of frequent frequent 00:00: [place] menstruati menstruati 00 Me dical on on Branch Knee pain, Knee pain, Disease Active U nivers left left 4-05 ity of 00:00: [place] 00 Medical Branch No known No known [facility] problems problems of Medicin e Allergies, Adverse Reactions, Alerts Allergy Allergy Status Severity Reaction(s) Onset Inactive Treating Comm ents Source Name Type Date Date Clinician Tramadol Propensi Active Hallucinatio [facility] ty to 8-14 College adverse 00:00: of reaction 00 Medicin s to e drug Tramadol Propensi Active Hallucinatio [facility] ty to 814 ity of adverse 00:00: [place] reaction 00 Medical s Branch Social History Social Habit Start Date Stop Date Quantity Comments Source History [facility] of Alcohol Std Medicine Drinks History [facility] of Alcohol Binge Medicine Exposure to 2021-07-13 2021-07-23 Not sure [facility]-CoV-2 00:00:00 12:59:00 [place] Medical (event) Branch Tobacco use and 2020-03-27 2020-03-27 [facility]00 Medicine Alcohol intake 2020-03-27 2020-03-27 Current drinker [facility] of 00:00:00 00:00:00 of alcohol Medicine (finding) History [facility] 2019-11-22 2019-11-22 3 [facility] of Alcohol Frequency 00:00:00 00:00:00 Medicin e Sex [birth year] [facility] llege of 00:00:00 00:00:00 Medicine Smoking Status Start Date Stop Date Source Never smoker [facility] Medications Ordered Filled Start Stop Current Ordering Indication Dosage Frequency Signature Comments Components Source Medication Medication Date Date Medication? Clinician (SIG) Name Name SERTraline Yes 100mg Take 100 Un vale 100 mg 4-21 mg by ity of tablet 13:25: mouth [place] 20 daily. Medical Branch sertraline Yes Take by Uni vers HCl (ZOLOFT 4-21 mouth. ity of ORAL) 13:25: [place] 20 Medical Branch SERTraline 2022-0 Yes 100mg Take 100 Un vale 100 mg 4-21 mg by ity of tablet 13:25: mouth [place] 20 daily. Medical Branch sertraline Yes Take by Uni vers HCl (ZOLOFT 4-21 mouth. ity of ORAL) 13:25: [place] 20 Medical Branch sumatriptan 0 Yes Take by Un vale succ/naprox 4-21 mouth as ity of en sod 13:23: needed. [place] (SUMATRIPTA 09 Medical N-NAPROXEN Branch ORAL) propranoloL 0 Yes 10mg Take 10 mg Univers 10 mg 4-21 by mouth 2 ity of tablet 13:23: (two) [place] 09 times Medical daily. Branch sumatriptan Yes Take by Un vale succ/naprox 4-21 mouth as ity of en sod 13:23: needed. [place] (SUMATRIPTA 09 Medical N-NAPROXEN Branch ORAL) propranoloL 0 Yes 10mg Take 10 mg Univers 10 mg 4-21 by mouth 2 ity of tablet 13:23: (two) [place] 09 times Medical daily. Branch ondansetron 2020-04 Yes [id number] 4mg Take 1 Univers (ZOFRAN 1-08 tablet by ity of ODT) 4 mg 00:00: mouth [place] disintegrat 00 every 8 Medic al ing tablet (eight) Branch hours as needed for Nausea and Vomiting (N/V). meclizine 2020-04 Yes [id number] 25mg Take 1 Un vale 25 mg 1-08 tablet by ity of tablet 00:00: mouth [place] 00 every 6 Medical (six) Branch hours. naproxen 2020-04 Yes [id number] 500mg Take 1 Un vale (NAPROSYN) 1-08 tablet by ity of 500 mg 00:00: mouth 2 [place] tablet 00 (two) Medical times Branch daily with meals. methocarbam 2020-04 Yes [id number] 500mg Take 1 Univers oL 500 mg 1-08 tablet by ity o f tablet 00:00: mouth 4 [place] 00 (four) Medical times Branch daily as needed for Pain (scale 4-6). ondansetron 2020-04 Yes [id number] 4mg Take 1 Univers (ZOFRAN 1-08 tablet by ity of ODT) 4 mg 00:00: mouth [place] disintegrat 00 every 8 Medic al ing tablet (eight) Branch hours as needed for Nausea and Vomiting (N/V). meclizine 2020-04 Yes [id number] 25mg Take 1 Un vale 25 mg 1-08 tablet by ity of tablet 00:00: mouth [place] 00 every 6 Medical (six) Branch hours. naproxen 2020-04 Yes [id number] 500mg Take 1 Un vale (NAPROSYN) 1-08 tablet by ity of 500 mg 00:00: mouth 2 [place] tablet 00 (two) Medical times Branch daily with meals. methocarbam 2020-04 Yes [id number] 500mg Take 1 Univers oL 500 mg 1-08 tablet by ity o f tablet 00:00: mouth 4 [place] 00 (four) Medical times Branch daily as needed for Pain (scale 4-6). HYDROCHLORO 2020-04 Yes 10mg Take 10 mg Univers THIAZIDE 0-26 by mouth ity of ORAL 08:48: daily. [address] pregabalin 2020-04 Yes Take by Uni vers (LYRICA 0-26 mouth ity of ORAL) 08:48: daily. [address] montelukast 2020-04 Yes 10mg Take 10 mg Univers 10 mg 0-26 by mouth ity of tablet 08:48: daily. [address] HYDROCHLORO 2020-04 Yes 10mg Take 10 mg Univers THIAZIDE 0-26 by mouth ity of ORAL 08:48: daily. [address] pregabalin 2020-04 Yes Take by Uni vers (LYRICA 0-26 mouth ity of ORAL) 08:48: daily. [address] montelukast 2020-04 Yes 10mg Take 10 mg Univers 10 mg 0-26 by mouth ity of tablet 08:48: daily. [address] methIMAzole 2019-04 Yes 10mg Take 1 Univ ers 10 mg 2-29 tablet by ity of tablet 00:00: mouth. [address] methIMAzole 2019-04 Yes 10mg Take 1 Univ ers 10 mg 2-29 tablet by ity of tablet 00:00: mouth. [address] methazolAMI 2019-04 Yes 50mg Take [address] [facility] DE 50 MG 2-24 by mouth College TABS 19:13: daily. of 25 Medicin e propranolol 2019-04 Yes 10mg Take 10 mg [facility] (INDERAL) 2-24 by mouth Colleg e 10 MG 19:13: two times of tablet 10 daily. Medicin e Pregabalin 2019-04 Yes Take by [place] est[facility]a (LYRICA OR) 2-24 mouth. Colleg e 19:13: of 10 Medicin e zolpidem 2019-04 Yes 5mg Take 5 mg [facility] (AMBIEN) 5 2-24 by mouth Colle ge MG tablet 19:13: nightly as of 10 needed for Medicin Sleep. e montelukast 2019-04 Yes 10mg Take [address] [facility] (SINGULAIR) 2-24 by mouth Mayra ege 10 MG 19:13: daily. of tablet 10 Medicin e methimazole Yes [id number] 15mg Take 1.[address] [facility] (TAPAZOLE) 9-14 Tabs by Colleg e 10 MG 00:00: mouth of tablet 00 daily. Medicin e Propranolol Propranolol Yes Sunil [address] [facility] [address] HCl HCl 9-10 [facility] atenolol Yes 50mg Take [address] [facility] (TENORMIN) 9-09 Tabs by Colleg e 25 MG 00:00: mouth of tablet 00 daily. Medicin e Ondansetron Ondansetron Yes Sunil [address] [facility] 8-18 M[facility]all on the [facility] - 00:00: tongue and Memoria 00 allow to l dissolve Outpati 30 minutes ent prior to Clinics meals Ambien Ambien Yes Sunil [facility] - as needed [facility] Sumatriptan Sumatriptan Yes Sunil [address] Succinate Succinate [facility] as needed [facility] Methimazole Methimazole Yes Sunil [address] [facility] [address] [facility] Montelukast Montelukast Yes Sunil [address] Sodium Sodium [facility] Lyrica Lyrica Yes Sunil [address] [facility] [facility] Hydrochloro Hydrochloro Yes Sunil [address] thiazide thiazide Mccall in the Luke s - morning [facility] Immunizations Ordered Filled Immunization Date Status Comments Sour e Immunization Name Name Influenza Virus 2020-04-01 Completed Universit y of Vaccine Quad .5 mL 00:00:00 [facility] IM 6+ MO Branch Influenza Virus 2020-04-01 Completed Universit y of Vaccine Quad .5 mL 00:00:00 [facility] 6+ MO Branch TDAP (ADACEL) 2019-10-03 Completed University of VACCINE 00:00:00 [facility] TDAP (ADACEL) 2019-10-03 Completed University of VACCINE 00:00:00 [facility] Vital Signs Vital Name Observation Time Observation Value Comments Source Systolic blood 2021-07-23 18:20:00 114 mm[Hg] Univer sity of pressure [facility] Diastolic blood 2021-07-23 18:20:00 81 mm[Hg] Unive rsity of [facility] Heart rate 2021-07-23 18:20:00 72 /min Universi ty [facility] Respiratory rate 2021-07-23 18:20:00 18 /min [facility] Body height 2021-07-23 18:20:00 162.6 cm Universi ty [facility] Body weight 2021-07-23 18:20:00 135.535 kg Universi ty [facility] BMI 2021-07-23 18:20:00 51.29 kg/m2 [facility] Oxygen saturation in 2021-07-23 18:20:00 96 /min [facility] Arterial blood by [facility] Pulse oximetry Branch Systolic blood 2020-03-27 19:08:00 118 mm[Hg] [facility] pressure Medicine Diastolic blood 2020-03-27 19:08:00 74 mm[Hg] [facility] Medicine Heart rate 2020-03-27 19:08:00 60 /min [facility] Respiratory rate 2020-03-27 19:08:00 18 /min [facility] Body height 2020-03-27 19:08:00 162.6 cm [facility] Body weight 2020-03-27 19:08:00 130.999 kg [facility] BMI 2020-03-27 19:08:00 49.57 kg/m2 [facility] Systolic blood 2020-03-27 19:08:00 118 mm[Hg] [facility] pressure Medicine Diastolic blood 2020-03-27 19:08:00 74 mm[Hg] [facility] pressure Medicine Heart rate 2020-03-27 19:08:00 60 /min [facility] Respiratory rate 2020-03-27 19:08:00 18 /min [facility] Body height 2020-03-27 19:08:00 162.6 cm [facility] Body weight 2020-03-27 19:08:00 130.999 kg [facility] BMI 2020-03-27 19:08:00 49.57 kg/m2 [facility] Procedures This patient has no known procedures. Plan of Care Planned Activity Planned Date Details Comments Source Future Scheduled TSH [code = Ordered: [facility] ege of Test 70868-5] 03/27/2020 Medicine Future Scheduled T4 FREE [code = Ordered: [facility] ollege of Test 3024-7] 03/27/2020 Medicine Future Scheduled T3 [code = 3053-6] Ordered: [facility] [place] [facility] of Test 03/27/2020 Medicine Future Scheduled MAMMOGRAM ANNUAL [facility] Test [code = MAMMOGRAM Medicine ANNUAL] Future Scheduled TETANUS SHOT [facility] ege of Test (ADULT) [code = Medicine TETANUS SHOT (ADULT)] Future Scheduled BMI FOLLOW UP PLAN [facility] of Test [code = BMI FOLLOW Medicine UP PLAN] Future Scheduled HEPATITIS C [facility] Mayra ege of Test SCREENING [code = Medicine HEPATITIS C SCREENING] Future Scheduled HIV SCREENING [code [facility] of Test = HIV SCREENING] Medicine Future Scheduled CERVICAL CANCER [facility] ollege of Test SCREENING 3 YEAR Medicine FOLLOW UP [code = CERVICAL CANCER SCREENING 3 YEAR FOLLOW UP] Future Scheduled FLU VACCINE > 6 [facility] ollege of Test MONTHS [code = FLU Medicine VACCINE > 6 MONTHS] Encounters Start End Encounter Admission Attending Care Care Encounter Source Date/Time Date/Time Type Type Clinicians Facility Department ID 2021-08-03 Outpatient ABRAHAM Mccall [facility] [id number] 16:18:01 [facility]il [facility] 2021-05-07 Outpatient ABRAHAM Mccall [facility] [id number] 13:30:02 [facility] 2021-05-01 Outpatient [place]all, [place] [id number] 08:23:02 [facility] 2021-04-29 Outpatient Mccall, [place] [id number] 14:31:29 [facility] 2021-04-29 Outpatient Mccall, [place] [id number] 14:12:21 [facility]il [id number] [facility] 2021-04-29 Outpatient Mccall, [place] [id number] 12:44:58 Sunil [id number] [facility] 2021-04-29 Outpatient Mccall, [place] [id number] 12:34:29 Sunil [id number] [facility] 2021-04-29 Outpatient Mccall, [place] [id number] 12:27:16 Sunil [id number] [facility] 2021-04-29 Outpatient Mccall, [place] [id number] 12:20:23 Sunil [id number] [facility] 2021-04-29 Outpatient Mccall, [place] [id number] 11:59:35 Sunil [id number] [facility] 2021-04-29 Outpatient Mccall, [place] [id number] 11:46:14 Sunil [id number] [facility] 2021-04-29 Outpatient Mccall, [place] [id number] 11:27:12 Sunil [id number] [facility] 2021-08-03 2021-08-03 Telephone LAUREN De Leon [id number] Univers 00:00:00 00:00:00 Imani PETERSON [id number] [facility] [id number] Ronnie as [id number] [facility] orin 008 Branch 2021-07-23 2021-07-23 Office [facility] [id number] Univers 13:00:00 14:06:54 Visit Imani ShereenDonyaRohanDonya VU 350.1.13.10 kirill [facility] [id number] Ronniea s KAYLA [id number] Vt dical [facility] 059 [facility] 2021-06-23 2021-06-23 ambulatory [facility]LMLC [facility] [id number] [facility] 2021-05-23 2021-05-23 ambulatory [facility]LMLC [facility] [id number] [facility] 2021-05-14 2021-05-14 ambulatory [facility]LMLC [facility] [id number] [facility] 2021-05-07 2021-05-07 ambulatory [facility]LMLC [facility] [id number] [facility] 2021-05-05 2021-05-05 ambulatory [facility]LMLC [facility] [id number] [facility] 2021-05-01 2021-05-01 ambulatory [facility]LMLC [facility] [id number] [facility] 2021-04-10 2021-04-10 ambulatory [facility]LMLC [facility] [id number] [facility] 2021-04-06 2021-04-06 ambulatory [facility]LMLC [facility] [id number] [facility] 2021-04-06 2021-04-06 ambulatory [facility]MLC [facility] [id number] [facility] 2021-02-12 2021-02-12 ambulatory [facility]MLC [facility] [id number] [facility] 2021-01-29 2021-01-29 ambulatory [facility]ML[facility] [id number] [facility] 2021-01-25 2021-01-25 Outpatient [facility] [id number] [facility] 2021-01-22 2021-01-22 Outpatient [facility] [id number] [facility] 2021-01-19 2021-01-19 Outpatient [facility]MLC [facility] [id number] [facility] 2020-12-10 2020-12-10 Outpatient [facility]ML[facility] [id number] [facility] 2020-11-21 2020-11-21 Outpatient [facility]ML[facility] [id number] [facility] 2020-11-18 2020-11-18 Outpatient [facility]ML[facility] [id number] [facility] 2020-11-05 2020-11-05 Outpatient [facility] [id number] [facility] 2020-09-15 2020-09-15 Outpatient [facility] [id number] [facility] 2020-08-20 2020-08-20 Outpatient [facility]ML[facility] [id number] [facility] 2020-08-19 2020-08-19 Outpatient [facility] [id number] [facility] 2020-07-11 2020-07-11 Outpatient [facility] [id number] [facility] 2020-07-10 2020-07-10 Outpatient [facility] [id number] [facility] 2020-07-02 2020-07-02 Outpatient [facility] [id number] [facility] 2020-06-29 2020-06-29 [facility] [id number] [facility] 2020-06-10 2020-06-10 [id number] 2020-06-03 2020-06-03 [facility] [id number] [facility] 2020-06-02 2020-06-02 [facility] [id number] 00:00:00 00:00:00 Imani Vu [id number] [place] [id number] [facility] [id number] [facility]9 [facility] 2020-05-31 2020-05-31 [facility] [id number] [facility] 2020-05-07 2020-05-07 [facility] [id number] [facility] 2020-05-05 2020-05-05 [facility] [id number] 00:00:00 00:00:00 Sendil [facility] [id number] [place] 4.2.7.2.686 [place] [id number] nal 059 [facility] 2020-05-02 2020-05-02 [facility] [id number] 08:58:15 23:59:00 Encounter Sendil K.H. SPECIALTY [id number] CARE [id number] CENTER AT [id number] [facility] [address] [place] [address] 2020-05-02 2020-05-02 [facility] [id number] 08:32:07 08:57:00 Encounter Sendil K.H. SPECIALTY [id number] CARE [id number] CENTER AT [id number] [facility] [address] [place] [address] 2020-05-02 2020-05-02 [facility] [id number] 08:31:50 08:31:50 Encounter Sendil K.H. SPECIALTY [id number] CARE [id number] CENTER AT [id number] [facility] [address] [place] [address] 2020-05-02 2020-05-02 [facility] [id number] 08:31:12 08:31:12 Encounter Sendil K.[facility]. SPECIALTY [id number] CARE [id number] CENTER AT [id number] [address] 2020-04-16 2020-04-16 Outpatient STLMLC ST[facility] [id number] [facility] 00:00:00 00:00:00 [facility] 2020-04-11 2020-04-11 Orders Doctor LAUREN [id number] 00:00:00 00:00:00 Only Unassigned, NICHOLAS 350.1.13.10 [place] [facility] 4.2.7.2.686 [id number] 2020-04-08 2020-04-08 [facility] [id number] 00:00:00 00:00:00 Imani Vu 350.1.13.10 [place] 4.2.7.2.686 [facility] [id number] [address] 2020-04-01 2020-04-01 Outpatient [facility] [id number] [facility] 2020-03-31 2020-03-31 Outpatient [facility] [id number] [facility] St 00:00:00 00:00:00 [facility] 2020-03-27 2020-03-27 Office Cool, BCM [id number] [facility] 13:04:09 13:34:09 Visit Dimpi Ramses AMBULATOR 350.1.13.21 College Y 0.2.7.2.686 of [id number] [facility] 310 e 2020-03-27 2020-03-27 Office Cool, BCM [id number] 13:04:09 13:34:09 Visit Dimpi Ramses AMBULATOR 350.1.13.21 Y 0.2.7.2.686 [id number] 310 2020-03-24 2020-03-24 Outpatient [facility] [id number] [facility] St 00[facility]00:00 00:00:00 [facility] 2020-03-17 2020-03-17 [facility] [id number] [facility] St 00[facility]00:00 00:00:00 [facility] 2020-03-12 2020-03-12 [facility] [id number] [facility] 2020-03-11 2020-03-11 [facility] [id number] [facility] 2020-03-03 2020-03-03 Outpatient [facility] [id number] [facility] 2020-02-14 2020-02-14 Outpatient [facility] [id number] [facility] 2020-02-11 2020-02-11 Outpatient [facility] [id number] [facility] 2020-02-08 2020-02-08 Outpatient [facility] [id number] [facility] 2020-01-30 2020-01-30 Outpatient [facility] [id number] [facility] 2020-01-23 2020-01-23 Outpatient [facility] [id number] [facility] 2020-01-22 2020-01-22 Outpatient [facility] [id number] [facility] 2020-01-15 2020-01-15 Outpatient [facility] [id number] [facility] 2020-01-09 2020-01-09 Outpatient [facility] [id number] [facility] 2020-01-07 2020-01-07 Outpatient [facility] [id number] [facility] 2019-12-19 2019-12-19 [facility] [id number] 16:30:00 16:30:[address] [employer] s - Drive [facility] l Medicine Outpati ent Clinics 2019-12-18 2019-12-18 [facility] [id number] 13:33:00 13:33:00 [place] [employer] s - Drive [facility] l Medicine Outpati ent Clinics 2019-12-09 2019-12-09 [facility] [id number] 17:43:00 17:43:00 [place] [employer] [facility] [email or web address] [facility] Medicine Outpati ent Clinics 2019-11-26 2019-11-26 [facility] [id number] 15:17:00 15:17:00 [place] [employer] [facility] Medicine Outpati ent Clinics 2019-11-24 2019-11-24 [facility] [id number] 15:24:00 15:24:00 [place] [email or web address] [facility] Medicine Outpati ent Clinics 2019-11-22 2019-11-22 [facility] [id number] 16:03:00 16:03:00 [place] [email or web address] [facility] Medicine Outpati ent Clinics 2019-11-19 2019-11-19 [facility] [id number] 14:35:00 14:35:00 t [email or web address] [facility] Medicine Outpati ent Clinics 2019-11-16 2019-11-16 [facility] [id number] 09:15:00 09:15:00 t [email or web address] [facility] Medicine Outpati ent Clinics 2019-11-09 2019-11-09 Outpatient [facility] [id number] [facility] 00:00:00 00:00:00 2019-11-08 2019-11-08 [facility] [id number] 09:12:00 09:12:00 t [email or web address] [facility] Medicine Outpati ent Clinics 2019-11-08 2019-11-08 Outpatient [facility]SL [facility] [id number] [facility] 00:00:00 00:00:00 2019-11-08 2019-11-08 Outpatient EL [facility] [id number] [facility] 00:00:00 00:00:00 2019-11-02 2019-11-02 Outpatient SLSL [facility] [id number] [facility] 00:00:00 00:00:00 2019-11-01 2019-11-01 Outpatient SLSL [facility] [id number] [facility] 00:00:00 00:00:00 2019-11-01 2019-11-01 Outpatient EL [facility] [id number] [facility] 00:00:00 00:00:00 2019-10-30 2019-10-30 Outpatient Asher Baedianet [id number] [facility] 17:05:00 17:05:00 t Sympoz [facility] Out[facility] Clin[facility] 2019-10-29 2019-10-29 Outpatient Asher Ashert [id number] [facility] 15:04:00 15:04:00 t ClassBadges NOWBOX [facility] Out[facility] 2019-10-29 2019-10-29 Outpatient Asher Catalinoosport [id number] [facility] 08:06:00 08:06:00 t ClassBadges NOWBOX [facility] 2019-10-22 2019-10-22 Outpatient Catalinodiane Ashert [id number] [facility] 12:23:00 12:23:00 t ClassBadges NOWBOX [facility] Out[facility] Clin[facility] 2019-10-18 2019-10-18 Outpatient Catalinodiane Ashert [id number] [facility] 14:30:00 14:30:00 t ClassBadges NOWBOX [facility] Out[facility] Clin[facility] 2019-09-20 2019-09-20 Outpatient Catalinodiane Ashert [id number] [facility] 09:00:00 09:00:00 Sympoz [facility] Results Test Description Test Time Test Comments Results Result [facility] e Comments THYROID IMAGING W/ 2019-11-09 FINAL REPORT PATIENT UPTAKE, MULTIPLE 09:03:00 ID: [id number] PROCEDURE: THYROID SCAN AND UPTAKES CPT CODE: 12009 INDICATION: Hyperthyroidism PROTOCOL: 0.238 mCi of I-123 [...] Hi Verified Date/Time: 11/09/2019 09:03:02 Reading Location: [address] Reading Room
--- NOTE | 2021-08-03 20:33 | RAD REPORT ---
EXAM DESCRIPTION: CT - Ct Stroke Brain Wo Cont - 08/03/2021 8:23 pm CLINICAL HISTORY: Neuro deficit, acute, stroke suspected COMPARISON: Head Brain Wo Cont dated 07/08/2021Head Brain Wo Cont dated 09/21/2018 TECHNIQUE: Axial 5 millimeter thick images of the head were obtained without IV contrast. All CT scans are performed using dose optimization technique as appropriate and may include automated exposure control or mA/KV adjustment according to patient size. FINDINGS: No intracranial hemorrhage, mass, or cerebral edema. No acute cortical level infarction. N o cortical edema or sulcal effacement. Right parietal shunt tube is in place with the tip in the midl ine. Ventricles are decompressed 2009 study. This does not appear to be extrinsic compression of the cerebral edema. No significant atrophy changes are present. Decreased attenuation in the right occipi marcia lobe and posterior right temporal lobe white matter more prominent on the prior study. This is pr obably not acute. Stroke in this region would probably not result in motor sensory deficit. Masterson lashell er-white matter differentiation is preserved. Visualized portions of the mastoid air cells, paranasal sinuses, and orbits are unremarkable. Findings telephoned to Oz Cote at 8:29 p.m. IMPRESSION: No intracranial hemorrhage is present. No cortical based infarction seen. Diminished right occipital white matter attenuation is probably no t acute. Nonhemorrhagic CVA changes are potentially masked. If tolerable by the patient, follow-up MR imaging could be utilized for more sensitive parenchymal assessment.
[2021-08-03] MEDS ORDERED: TENECTEPLASE 50 MG/10 ML VIAL IV ONE (20:50)
[2021-08-03 20:52] LABS: Absolute Lymphocytes (CBC) 1.9 K/uL (0.7-4.9); Hematocrit 42.8 % (36.0-45.0); Lymphocytes % 19.5 % (15.3-44.8); MPV 7.4 fL (7.6-11.3)
[2021-08-03 20:58] LABS: Protime INR 1.01
[2021-08-03 21:16] LABS: ALT/SGPT 29 U/L (12-78); AST/SGOT 15 U/L (15-37); Albumin 3.4 g/dL (3.4-5.0); Alkaline Phosphatase 134 U/L (45-117); BUN Blood Urea Nitrogen 11 mg/dL (7-18); Bicarbonate 32 mmol/L (21-32); Bilirubin Direct 0.1 mg/dL (0-0.2); Bilirubin Total 0.3 mg/dL (0.2-1.0); Creatine Phosphokinase 72 U/L (26-192); Glomerular Filtration Rate 60 mL/min (=/>90); Glucose Level 91 mg/dL (74-106); Magnesium 2.1 mg/dL (1.8-2.4); Protein, Total 7.4 g/dL (6.4-8.2); Sodium Level 137 mmol/L (136-145)
[2021-08-03 21:19] LABS: CKMB Creatine Kinase MB < 1.0 ng/mL (1.0-3.6)
--- NOTE | 2021-08-03 21:34 | RAD REPORT ---
EXAM DESCRIPTION: US - Extremity Venous Uni Ltd - 08/03/2021 9:24 pm CLINICAL HISTORY: SWELLING COMPARISON: None. TECHNIQUE: Real-time sonographic evaluation of the left lower extremity deep venous system was perfo rmed. FINDINGS: Normal compressibility, flow augmentation, phasic flow and spontaneous flow are identified in the left lower extremity common femoral, superficial femoral, popliteal and posterior tibial vein s. No intraluminal filling defects seen. IMPRESSION: No DVT in the left lower extremity.
--- NOTE | 2021-08-03 21:36 | RAD REPORT ---
EXAM DESCRIPTION: RAD - Chest Single View - 08/03/2021 9:16 pm CLINICAL HISTORY: left sided weakness COMPARISON: Portable 06/20/2021 TECHNIQUE: AP portable chest image was obtained 08/03/2021 9:16 pm . FINDINGS: Lung volumes are low. Under penetrated technique and overlying prominent soft tissues acce ntuate lung markings. An acute lung parenchymal process is not seen. 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 Heart and vasculature are normal. No measurable pleural effusion a nd no pneumothorax. No acute bony abnormality seen. No acute aortic findings suspected. IMPRESSION: No acute cardiopulmonary process. No significant change from comparison study.
[2021-08-03 21:56] LABS: SARS-COV-2 RT PCR NEGATIVE (NEGATIVE)
[2021-08-03 21:58] LABS: Barbiturates NEGATIVE (NEGATIVE); Benzodiazepines NEGATIVE (NEGATIVE); Cocaine NEGATIVE (NEGATIVE); METHAMPHETAM NEGATIVE (NEGATIVE); Methadone NEGATIVE (NEGATIVE); Opiates NEGATIVE (NEGATIVE); Phencyclidine NEGATIVE (NEGATIVE); THC Cannibis NEGATIVE (NEGATIVE)
[2021-08-03] MEDS ORDERED: POTASSIUM 25 MEQ EFFERV TAB ONE (23:22)
[2021-08-03] MEDS ORDERED: ACETAMINOPHEN 325 MG TABLET ONE (23:35)
--- NOTE | 2021-08-03 23:48 | ER ---
Nurse's Notes [facility] Name: Skye Figueroa Age: 46 yrs Sex: Female : 1975 Arrival Date: 08/03/2021 Time: 19:44 Bed 8 Private MD: Diagnosis: Cerebral infarction, unspecified Presentation: 08/03 19:47 Chief complaint: Patient states: left leg swelling started yesterday. recently saw al4 mortgage loan processor who wants to get an angiogram scheduled for possible blood clot. patient wants to get leg checked out. Coronavirus screen: Vaccine status: Patient reports being unvaccinated. Ebola Screen: No symptoms or risks identified at this time. Initial Sepsis Screen: Does the patient meet any 2 criteria? Systolic BP < 90 mmHg. No. Patient's initial sepsis screen is negative. Does the patient have a suspected source of infection? No. Patient's initial sepsis screen is negative. Risk Assessment: Do you want to hurt yourself or someone else? Patient reports no desire to harm self or others. Onset of symptoms was August 02, 2021. 19:47 Method Of Arrival: Wheelchair al4 19:47 Acuity: NIDA 2 as6 20:00 An acute neurological deficit is present. The patients blood glucose was checked before as6 arriving to the hospital and was found to be normal. Triage Assessment: 19:50 General: Appears in no apparent distress. uncomfortable, Behavior is calm, cooperative, al4 patient able to wheel self into triage room from waiting room . Pain: Complains of pain in left leg. Neuro: Reports numbness in lateral aspect of left foot. Neuro: Level of Consciousness is awake, alert, obeys commands, Oriented to person, place, time, situation, Speech is normal. Cardiovascular: Patient's skin is warm and dry. Cardiovascular: Pulses are 2+ in right dorsalis pedis artery and left dorsalis pedis artery. Respiratory: Airway is patent Respiratory effort is unlabored, Respiratory pattern is regular. : Reports small amount of blood in urine, foul smell in urine. 20:00 The onset of the patients symptoms was August 03, 2021 at 16:45. 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 LMP 07/18/2021 al4 Stroke Activation: Symtpom onset >3 hours and < 6 hours Physician: Stroke Attending; Name: ; Notified At: ; Arrived At: Physician: Chief Stroke Resident; Name: ; Notified At: ; Arrived At: Physician: Stroke Resident; Name: ; Notified At: ; Arrived At: Physician: ED Attending; Name: ; Notified At: ; Arrived At: Physician: ED Resident; Name: ; Notified At: ; Arrived At: Historical: - Allergies: 19:50 Naproxen; al4 19:50 tramadol; al4 - PMHx: 19:50 Anxiety; BRAIN TUMOR; graves disease; Hydrocephalus; Migraines; Seizures; al4 - PSHx: 19:50 Appendectomy; Brain sx; Cholecystectomy; eye sx; IT ASSISTANT shunt; al4 - Immunization history:: Adult Immunizations up to date. - Social history:: Smoking status: Patient denies any tobacco usage or history of. Screenin:26 The patient has not been NPO before screening. The patient is currently on the as6 following diet: regular The patient is alert, able to follow commands. The patient does not exhibit slurred or garbled speech The patient is not exhibiting difficulty speaking. The patient does not exhibit difficulty understanding words. The patient is able to swallow own secretions with no drooling or need for suction. Patient tolerated one teaspoon of water. No drooling, immediate coughing, gurgling, or clearing of the throat was noted. The patient tolerated 90mL of water. No drooling, immediate coughing, gurgling, or clearing of the throat was noted. The patient passed the bedside swallow screening. Oral medications may be given as ordered. Contact Physician for further diet orders. Provider notified of bedside swallow screening results: Oz LORENZ. 08/04 00:32 Abuse screen: Denies threats or abuse. Denies injuries from another. Nutritional as6 screening: No deficits noted. Tuberculosis screening: No symptoms or risk factors identified. Fall Risk None identified. Assessment: 08/03 20:10 General: Appears in no apparent distress. obese, Behavior is cooperative, anxious. as6 Pain: Complains of pain in left leg. Neuro: Reports numbness in left arm and left leg since 1644 weakness in left arm and left leg since 1644. Cardiovascular: Reports chest pain. Respiratory: Respiratory effort is even, unlabored, Respiratory pattern is regular, symmetrical. 20:26 The patient has not been NPO before screening. The patient is currently on the as6 following diet: regular The patient is alert, and able to follow commands. The patient does not exhibit slurred or garbled speech. The patient is not exhibiting difficulty speaking. The patient does not exhibit difficulty understanding words. The patient is able to swallow own secretions with no drooling or need for suction. Patient tolerated one teaspoon of water. No drooling, immediate coughing, gurgling, or clearing of the throat was noted. The patient tolerated 90mL of water. No drooling, immediate coughing, gurgling, or clearing of the throat was noted. The patient passed the bedside swallow screening. Oral medications may be given as ordered. Contact Physician for further diet orders. Provider notified of bedside swallow screening results: Oz LORENZ. 20:36 VAN Scoring: Arm Drift: Severe drift Visual Disturbance: No visual disturbance noted. as6 Aphasia: No aphasia noted. Neglect: No neglect noted. T-PA (Activase) Screening: Indications: Definite evidence of stroke, ischemic, embolic, or hypertensive: Yes. Treatment will start within 4.5 hours onset of symptoms: Yes. No evidence of intracranial hemorrhage or CT of head and no evidence of peripheral hemorrhage or recent CVA: Yes. Consent for thrombolytic therapy: Yes. Vital Signs: 19:47 BP 84 / 69; Pulse 73; Resp 20; Temp 98.7; Pulse Ox 98% ; Weight 129.27 kg (R); Height 5 al4 ft. 4 in. (162.56 cm); Pain 8/10; 20:30 BP 100 / 50; Pulse 64; Resp 20 S; Pulse Ox 94% on R/A; as6 21:00 BP 142 / 61; Pulse 68; Resp 13 S; Pulse Ox 97% on R/A; as6 21:15 BP 126 / 74; Pulse 69; Resp 21 S; Pulse Ox 96% on R/A; as6 22:22 BP 110 / 57; Pulse 60; Resp 9 S; Pulse Ox 99% on R/A; as6 22:30 BP 116 / 58; Pulse 64; Resp 23 S; Pulse Ox 94% on R/A; as6 23:30 BP 110 / 63; Pulse 63; Resp 13 S; Pulse Ox 99% on R/A; as6 05/03 00:30 BP 109 / 83; Pulse 59; Resp 14 S; Pulse Ox 98% on R/A; as6 01:30 BP 115 / 55; Pulse 65; Resp 21 S; Pulse Ox 95% on R/A; as6 02:30 BP 116 / 64; Pulse 59; Resp 21 S; Pulse Ox 96% on R/A; as6 08/03 19:47 Body Mass Index 48.92 (129.27 kg, 162.56 cm) al4 NIH Stroke Scale Scores: 08/03 20:26 NIHSS Score: 9 as6 20:26 NIHSS Score: 9 as6 20:37 NIHSS Score: 7 [facility] ED Course: 19:44 Patient arrived in ED. kz 19:50 Triage completed. al4 19:54 Arm band placed on right wrist. al4 19:56 Oz Cote PA is PHCP. [facility] 19:56 Glalito Navarrete MD is Attending Physician. [facility] 19:56 Brett Oliveros, CALEB is Primary Nurse. as6 20:25 CT Stroke Brain w/o Contrast In Process Unspecified. EDMS 20:31 Inserted saline lock: 20 gauge in right antecubital area, using aseptic technique. as6 Blood collected. 21:17 Stroke CXR 1 View In Process Unspecified. EDMS 21:25 US Extremity Venous Unilateral Ltd In Process Unspecified. EDMS 21:57 CT Head Angio In Process Unspecified. EDMS 21:57 CT Neck Angio In Process Unspecified. EDMS 23:47 Sarmad Nolasco MD is Hospitalizing Provider. [facility] 08/04 04:53 Placed in gown. Bed in low position. Call light in reach. Side rails up X2. Client as6 placed on continuous cardiac and pulse oximetry monitoring. NIBP monitoring applied. Warm blanket given. 04:53 No provider procedures requiring assistance completed. Patient admitted, IV remains in as6 place. Administered Medications: 08/03 20:49 Drug: TNK FOR STROKE - Tenecteplase 0.25 mg/kg {Co-Signature: ridge (Guillermina Naranjo as6 RN).} Route: IV; Rate: per protocol; Site: right antecubital; 08/04 00:31 Follow up: Response: No adverse reaction; IV Status: Completed infusion; IV Intake: 5ml as6 05/02 23:21 Not Given (Other Intervention Used): Potassium Chloride Liquid 40 mEq PO once as6 23:28 Drug: Potassium Effervescent Tablet 50 mEq Route: PO; 6 08/04 00:31 Follow up: Response: No adverse reaction as6 08/03 23:34 Drug: Tylenol 650 mg Route: PO; as6 08/04 00:32 Follow up: Response: No adverse reaction as6 Point of Care Testing: Blood Glucose: 08/03 20:31 Blood Glucose: 91 mg/dL; as6 Ranges: Intake: 08/04 00:31 IV: 5ml; Total: 5ml. as6 Outcome: 08/03 23:47 Decision to Hospitalize by Provider. [facility] 08/04 04:53 Admitted to ER Hold. Please see [employer] for further documentation. as6 Condition: stable Instructed on the need for admit. 14:29 Patient left the ED. NIH Stroke Scale - NIH Stroke Score Date: 08/03/2021 Time: 20:26 Total Score = 9 1a. Level of Consciousness (LOC) - 0(Alert) 1b. Level of Consciousness (LOC) (Month \T\ Age) - 0(Both) 1c. LOC Commands (Open \T\ Closes Eyes/Merchandising Specialist) - 0(Both) 2. Best Gaze (Lateral Gaze Paresis) - 0(Normal) 3. Visual Field Loss - 0(No visual loss) 4. Facial Palsy - 1(Minor Paralysis) 5a. Left Arm: Motor (10-second hold) - 3(No effort against gravity) 5b. Right Arm: Motor (10-second hold) - 0(No drift) 6a. Left Leg: Motor (5-second hold - always test supine) - 3(No effort against gravity) 6b. Right Leg: Motor (5-second hold - always test supine) - 0(No drift) 7. Limb Ataxia (finger/nose \T\ heel/cintron - test with eyes open) - 1(Present in one limb) 8. Sensory Loss (pinprick arms/legs/face) - 1(Mild to moderate loss) 9. Best Language: Aphasia (description/naming/reading) - 0(No aphasia) 10. Dysarthria (speech clarity - read or repeat words) - 0(Normal) 11. Extinction and Inattention (visual/tactile/auditory/spatial/personal) - 0(No abnormality) Initials: as6 NIH Stroke Scale - NIH Stroke Score Date: 08/03/2021 Time: 20:26 Total Score = 9 1a. Level of Consciousness (LOC) - 0(Alert) 1b. Level of Consciousness (LOC) (Month \T\ Age) - 0(Both) 1c. LOC Commands (Open \T\ Closes Eyes/Merchandising Specialist) - 0(Both) 2. Best Gaze (Lateral Gaze Paresis) - 0(Normal) 3. Visual Field Loss - 0(No visual loss) 4. Facial Palsy - 1(Minor Paralysis) 5a. Left Arm: Motor (10-second hold) - 3(No effort against gravity) 5b. Right Arm: Motor (10-second hold) - 0(No drift) 6a. Left Leg: Motor (5-second hold - always test supine) - 3(No effort against gravity) 6b. Right Leg: Motor (5-second hold - always test supine) - 0(No drift) 7. Limb Ataxia (finger/nose \T\ heel/cintron - test with eyes open) - 1(Present in one limb) 8. Sensory Loss (pinprick arms/legs/face) - 1(Mild to moderate loss) 9. Best Language: Aphasia (description/naming/reading) - 0(No aphasia) 10. Dysarthria (speech clarity - read or repeat words) - 0(Normal) 11. Extinction and Inattention (visual/tactile/auditory/spatial/personal) - 0(No abnormality) Initials: as6 NIH Stroke Scale - NIH Stroke Score Date: 08/03/2021 Time: 20:37 Total Score = 7 1a. Level of Consciousness (LOC) - 0(Alert) 1b. Level of Consciousness (LOC) (Month \T\ Age) - 0(Both) 1c. LOC Commands (Open \T\ Closes Eyes/Merchandising Specialist) - 0(Both) 2. Best Gaze (Lateral Gaze Paresis) - 0(Normal) 3. Visual Field Loss - 0(No visual loss) 4. Facial Palsy - 0(Normal) 5a. Left Arm: Motor (10-second hold) - 3(No effort against gravity) 5b. Right Arm: Motor (10-second hold) - 0(No drift) 6a. Left Leg: Motor (5-second hold - always test supine) - 2(Drift, some effort against gravity) 6b. Right Leg: Motor (5-second hold - always test supine) - 0(No drift) 7. Limb Ataxia (finger/nose \T\ heel/cintron - test with eyes open) - 0(Absent) 8. Sensory Loss (pinprick arms/legs/face) - 2(Severe to total loss) 9. Best Language: Aphasia (description/naming/reading) - 0(No aphasia) 10. Dysarthria (speech clarity - read or repeat words) - 0(Normal) 11. Extinction and Inattention (visual/tactile/auditory/spatial/personal) - 0(No abnormality) Initials: presley Signatures: Dispatcher [employer] EDMS Oz Cote PA PA jmm Hall, Patricia, RN RN Brett Bach RN RN as6 Asif Saab alNarcisa Ballesteros RN bb Corrections: (The following items were deleted from the chart) 08/03 19:59 19:47 Acuity: NIDA 3 al4 as6 20:47 19:47 Chief complaint: Patient states: left leg swelling started yesterday. al4 recently saw mortgage loan processor who wants to get an angiogram scheduled for possible blood clot. al4 20:47 19:50 Neuro: Reports numbness in lateral aspect of left foot al4 al4 20:49 19:50 General: Appears in no apparent distress. uncomfortable, Behavior is al4 calm, cooperative, al4 20:58 19:50 Neuro: Level of Consciousness is awake, alert, obeys commands, Oriented al4 to person, place, time, situation, al4
--- NOTE | 2021-08-03 23:48 | EDPHYS ---
Physician Documentation [facility] Name: Skye Figueroa Age: 46 yrs Sex: Female : 1975 Arrival Date: 08/03/2021 Time: 19:44 Bed 8 Private MD: VLADIMIR Physician Gallito Navarrete HPI: 08/03 20:14 This 46 yrs old Female presents to ER via Wheelchair with complaints of Possible UTI, jmm Leg Swelling. 20:14 The patient presents with pain, swelling. This is a 46-year-old female with history of jmm anxiety, brain tumor, Graves' disease, migraines, epilepsy the presents emerged part with complaints of left lower leg extremity swelling beginning approximately 2 weeks ago. Patient states that about 2 hours prior to arrival she developed numbness to her left leg. Patient states that now she has weakness to the entire left side of her body.. 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 - Social history:: Smoking status: Patient denies any tobacco usage or history of. ROS: 20:14 Constitutional: Negative for fever, chills, and weight loss, Cardiovascular: Negative jmm for chest pain, palpitations, and edema, Respiratory: Negative for shortness of breath, cough, wheezing, and pleuritic chest pain. 20:14 MS/extremity: Positive for pain, paresthesias. 20:14 Neuro: Positive for weakness. 20:14 All other systems are negative. Exam: 20:14 Constitutional: This is a well developed, well nourished patient who is awake, alert, jmm and in no acute distress. Head/Face: atraumatic. Eyes: EOMI, no conjunctival erythema appreciated ENT: Moist Mucus Membranes Neck: Trachea midline, Supple Chest/axilla: Normal chest wall appearance and motion. Cardiovascular: Regular rate and rhythm. No edema appreciated Respiratory: Normal respirations, no respiratory distress appreciated Abdomen/GI: Non distended, soft Back: Normal ROM Skin: General appearance color normal 20:14 Musculoskeletal/extremity: ROM: intact in all extremities. 20:14 Skin: Appearance: Color: normal in color. 20:14 Neuro: Orientation: is normal, Mentation: is normal, Memory: is normal, Left upper extremity pronator drift appreciated, left lower extremity drift appreciated. 20:14 Psych: Behavior/mood is pleasant, cooperative, anxious. Vital Signs: 19:47 BP 84 / 69; Pulse 73; Resp 20; Temp 98.7; Pulse Ox 98% ; Weight 129.27 kg (R); Height 5 al4 ft. 4 in. (162.56 cm); Pain 8/10; 20:30 BP 100 / 50; Pulse 64; Resp 20 S; Pulse Ox 94% on R/A; as6 21:00 BP 142 / 61; Pulse 68; Resp 13 S; Pulse Ox 97% on R/A; as6 21:15 BP 126 / 74; Pulse 69; Resp 21 S; Pulse Ox 96% on R/A; as6 22:22 BP 110 / 57; Pulse 60; Resp 9 S; Pulse Ox 99% on R/A; as6 22:30 BP 116 / 58; Pulse 64; Resp 23 S; Pulse Ox 94% on R/A; as6 23:30 BP 110 / 63; Pulse 63; Resp 13 S; Pulse Ox 99% on R/A; as6 05/ 00:30 BP 109 / 83; Pulse 59; Resp 14 S; Pulse Ox 98% on R/A; as6 01:30 BP 115 / 55; Pulse 65; Resp 21 S; Pulse Ox 95% on R/A; as6 02:30 BP 116 / 64; Pulse 59; Resp 21 S; Pulse Ox 96% on R/A; as6 08/03 19:47 Body Mass Index 48.92 (129.27 kg, 162.56 cm) al4 NIH Stroke Scale Scores: 08/03 20:26 NIHSS Score: 9 as6 20:26 NIHSS Score: 9 as6 20:37 NIHSS Score: 7 presley MDM: 20:14 Patient medically screened. presley 20:16 Patient medically screened. presley 23:46 Data reviewed: vital signs, nurses notes. Counseling: I had a detailed discussion with presley the patient and/or guardian regarding: the historical points, exam findings, and any diagnostic results supporting the discharge/admit diagnosis, lab results, radiology results, the need for further work-up and treatment in the hospital. ED course: I discussed the patient with Dr. Mueller whom recommended admission for observation. Discussed the patient with Leonidas who accepted the patient to Dr. Brooklyn schumacher.. 08/03 20:16 Order name: Basic Metabolic Panel; Complete Time: 13:19 [facility] 08/03 20:16 Order name: CBC with Diff; Complete Time: 21:06 [facility] 08/03 20:16 Order name: CPK; Complete Time: 13:19 [facility] 08/03 20:16 Order name: Ckmb; Complete Time: 13:19 [facility] 08/03 20:16 Order name: Hepatic Function; Complete Time: 13:19 [facility] 08/03 20:16 Order name: Magnesium; Complete Time: 13:19 [facility] 08/03 20:16 Order name: Protime (+inr); Complete Time: 21: [facility] 08/03 20:16 Order name: Ptt, Activated; Complete Time: 21:06 [facility] 08/03 20:16 Order name: UDS; Complete Time: 21:59 [facility] 08/03 20:55 Order name: Glucose, Ancillary Testing; Complete Time: 21:06 [facility] 08/03 21:02 Order name: COVID-19/FLU A+B (Document "Date of Onset" if Symptomatic); Complete Time: as6 21:59 08/03 23:17 Order name: Thyroid Stimulating Hormone; Complete Time: 13:19 [facility] 08/04 05:28 Order name: Lipid Profile; Complete Time: 13:19 [facility] 08/03 20:16 Order name: CT Stroke Brain w/o Contrast; Complete Time: 20:36 [facility] 08/03 20:16 Order name: Stroke CXR 1 View; Complete Time: 21:45 [facility] 08/03 20:16 Order name: EKG; Complete Time: 20:17 [facility] 08/03 20:16 Order name: Accucheck; Complete Time: 20:43 [facility] 08/03 20:16 Order name: Cardiac monitoring; Complete Time: 20:43 [facility] 08/03 20:16 Order name: EKG - Nurse/Tech; Complete Time: 20:54 [facility] 08/03 20:16 Order name: IV Saline Lock; Complete Time: 20:43 [facility] 08/03 20:16 Order name: Labs collected and sent; Complete Time: 20:43 [facility] 08/03 20:16 Order name: NPO; Complete Time: 20:43 [facility] 08/03 20:24 Order name: US Extremity Venous Unilateral Ltd; Complete Time: 21:34 [facility] 08/03 20:42 Order name: CT Head Angio; Complete Time: 13:45 [facility] 08/03 20:42 Order name: CT Neck Angio; Complete Time: 13:45 [facility] 08/03 20:16 Order name: O2 Per Protocol; Complete Time: 20:43 [facility] 08/03 20:16 Order name: O2 Sat Monitoring; Complete Time: 20:43 [facility] 08/03 20:16 Order name: Stroke Swallow Screen; Complete Time: 20:43 [facility] Administered Medications: 20:49 Drug: TNK FOR STROKE - Tenecteplase 0.25 mg/kg {Co-Signature: ridge Naranjo as6 RN).} Route: IV; Rate: per protocol; Site: right antecubital; 08/04 00:31 Follow up: Response: No adverse reaction; IV Status: Completed infusion; IV Intake: 5ml 08/03 23:21 Not Given (Other Intervention Used): Potassium Chloride Liquid 40 mEq PO once as 23:28 Drug: Potassium Effervescent Tablet 50 mEq Route: PO; 6 08/04 00:31 Follow up: Response: No adverse reaction 08/03 23:34 Drug: Tylenol 650 mg Route: PO; 08/04 00:32 Follow up: Response: No adverse reaction Point of Care Testing: Blood Glucose: 08/03 20:31 Blood Glucose: 91 mg/dL; as6 Ranges: Critical Glucose Levels:Adult <50 mg/dl or >400 mg/dl <40 mg/dl or >180 mg/dl Disposition Summary: 08/03/21 23:47 Hospitalization Ordered Hospitalization Status: Inpatient [facility]mission [facility] Provider: Sarmad Nolasco Condition: Stable jmm Problem: new jmm Symptoms: are unchanged jmm Bed/Room Type: [facility] Location: Telemetry/MedSurg (Inpatient)(08/04/21 10:53) bd Room Assignment: 431(08/04/21 10:53) bd Diagnosis - Cerebral infarction, unspecified [facility] Forms: - Medication Reconciliation Form [facility] - SBAR form [facility] NIH Stroke Scale - NIH Stroke Score Date: 08/03/2021 Time: Total Score = 9 1a. Level of Consciousness (LOC) - 0(Alert) 1b. Level of Consciousness (LOC) (Month \\T\\ Age) - 0(Both) 1c. LOC Commands (Open \\T\\ Closes Eyes/Skimmer Reverberatory) - 0(Both) 2. Best Gaze (Lateral Gaze Paresis) - 0(Normal) 3. Visual Field Loss - 0(No visual loss) 4. Facial Palsy - 1(Minor Paralysis) 5a. Left Arm: Motor (10-second hold) - 3(No effort against gravity) 5b. Right Arm: Motor (10-second hold) - 0(No drift) 6a. Left Leg: Motor (5-second hold - always test supine) - 3(No effort against gravity) 6b. Right Leg: Motor (5-second hold - always test supine) - 0(No drift) 7. Limb Ataxia (finger/nose \\T\\ heel/cintron - test with eyes open) - 1(Present in one limb) 8. Sensory Loss (pinprick arms/legs/face) - 1(Mild to moderate loss) 9. Best Language: Aphasia (description/naming/reading) - 0(No aphasia) 10. Dysarthria (speech clarity - read or repeat words) - 0(Normal) 11. Extinction and Inattention (visual/tactile/auditory/spatial/personal) - 0(No abnormality) Initials: as6 NIH Stroke Scale - NIH Stroke Score Date: 08/03/2021 Time: Total Score = 9 1a. Level of Consciousness (LOC) - 0(Alert) 1b. Level of Consciousness (LOC) (Month \\T\\ Age) - 0(Both) 1c. LOC Commands (Open \\T\\ Closes Eyes/Skimmer Reverberatory) - 0(Both) 2. Best Gaze (Lateral Gaze Paresis) - 0(Normal) 3. Visual Field Loss - 0(No visual loss) 4. Facial Palsy - 1(Minor Paralysis) 5a. Left Arm: Motor (10-second hold) - 3(No effort against gravity) 5b. Right Arm: Motor (10-second hold) - 0(No drift) 6a. Left Leg: Motor (5-second hold - always test supine) - 3(No effort against gravity) 6b. Right Leg: Motor (5-second hold - always test supine) - 0(No drift) 7. Limb Ataxia (finger/nose \\T\\ heel/cintron - test with eyes open) - 1(Present in one limb) 8. Sensory Loss (pinprick arms/legs/face) - 1(Mild to moderate loss) 9. Best Language: Aphasia (description/naming/reading) - 0(No aphasia) 10. Dysarthria (speech clarity - read or repeat words) - 0(Normal) 11. Extinction and Inattention (visual/tactile/auditory/spatial/personal) - 0(No abnormality) Initials: as6 NIH Stroke Scale - NIH Stroke Score Date: 08/03/2021 Time: 20:37 Total Score = 7 1a. Level of Consciousness (LOC) - 0(Alert) 1b. Level of Consciousness (LOC) (Month \\T\\ Age) - 0(Both) 1c. LOC Commands (Open \\T\\ Closes Eyes/Skimmer Reverberatory) - 0(Both) 2. Best Gaze (Lateral Gaze Paresis) - 0(Normal) 3. Visual Field Loss - 0(No visual loss) 4. Facial Palsy - 0(Normal) 5a. Left Arm: Motor (10-second hold) - 3(No effort against gravity) 5b. Right Arm: Motor (10-second hold) - 0(No drift) 6a. Left Leg: Motor (5-second hold - always test supine) - 2(Drift, some effort against gravity) 6b. Right Leg: Motor (5-second hold - always test supine) - 0(No drift) 7. Limb Ataxia (finger/nose \\T\\ heel/cintron - test with eyes open) - 0(Absent) 8. Sensory Loss (pinprick arms/legs/face) - 2(Severe to total loss) 9. Best Language: Aphasia (description/naming/reading) - 0(No aphasia) 10. Dysarthria (speech clarity - read or repeat words) - 0(Normal) 11. Extinction and Inattention (visual/tactile/auditory/spatial/personal) - 0(No abnormality) Initials: [facility] Signatures: Dispatcher [employer] EDMS Dirrim, Oz Givens PA PA jmm Garcia, Cindy, RN RN Brett Oliveros, CALEB RN as6 Asif Saab4 Guillermina Naranjo RN bb Corrections: (The following items were deleted from the chart) 23:17 21:31 THYROID STIMULAT HORMONE+C.LAB.BRZ ordered. EDMS EDMS 08/04 00:08/03 23:47 Telemetry/MedSurg (Inpatient) [facility] 08/04 00:08/03 23:47 [facility] 08/04 10:53 00:26 [facility] ER HOLD cg bd 10:53 00:26 ERHOLD- cg bd
--- NOTE | 2021-08-04 02:18 | P.HP ---
Certification for Inpatient Patient admitted to: Observation With expected LOS: <2 Midnights Patient will require the following post-hospital care: None Practitioner: I am a practitioner with admitting privileges, knowledge of patient current condition, hospital course, and medical plan of care. Services: Services provided to patient in accordance with Admission requirements found in Title 42 Section 412.3 of the Code of Federal Regulations <Arti Lauren - Last Filed: 08/04/21 03:49> Patient History Date of Service: 08/04/21 Primary Care Provider: Cal Reason for admission: CVA History of Present Illness: Patient is a 46-year-old female with past medical history of Graves' disease, brain tumor, migraines who presented to the ED with complaints of left lower extremity weakness. There was initially concern for DVT however upon assessment her stroke screen was positive. CT head negative, CT head/neck angio showed no evidence of occlusion or stenosis and 2.2 cm rim-enhancing intra-axial stricture in the posterior right temporal lobe. She was given TNKase in the ED. Venous ultrasound negative for DVT. Upon my assessment, patient states that most of her symptoms have resolved. She states that she does not remember everything that happened when she initially got to the emergency department and feels very tired. She has decreased sensation and strength in her left lower extremity but improving. Dr. Kaur was notified and wishes for patient to be admitted for observation with him consulting and for MRI stroke protocol in the morning. Home medications list reviewed: Yes - Past Medical/Surgical History Diabetic: No -: Graves' disease -: Brain tumor -: Anxiety -: Migraine -: Seizures -: FORENSIC IDENTIFICATION SPECIALIST shunt -: Brain surgery -: Appendectomy -: Cholecystectomy Psychosocial/ Personal History: Patient lives at home with her daughter. - Family History Mother -: Cancer (Breast) Father -: Blood disorders (Blood clot) - Social History Smoking Status: Never smoker Alcohol use: No CD- Drugs: No Caffeine use: Yes Place of Residence: Home <Arti Lauren - Last Filed: 08/04/21 03:49> Date of Service: 08/04/21 <Sarmad Nolasco - Last Filed: 08/05/21 09:56> Allergies naproxen Allergy (Intermediate, Verified 08/04/21 14:56) Unknown tramadol Allergy (Intermediate, Verified 08/04/21 14:55) Hives Home Medications: Montelukast Sodium [Singulair] 10 mg PO DAILY 08/04/21 Pregabalin [Lyrica] 25 mg PO DAILY 08/04/21 Propranolol [Inderal*] 10 mg PO BID 08/04/21 SUMAtriptan succinate [Sumatriptan Succinate] 1 tab PO DAILY PRN 08/04/21 Sertraline [Zoloft] 50 mg PO DAILY 08/04/21 hydroCHLOROthiazide [Hydrochlorothiazide] 25 mg PO DAILY 08/04/21 Review of Systems Neurological: Weakness, Confusion, As per HPI <Arti Lauren - Last Filed: 08/04/21 03:49> Physical Examination - Physical Exam General: Alert, In no apparent distress, Oriented x3, Obese HEENT: Atraumatic, PERRLA, Mucous membr. moist/pink, EOMI, Sclerae nonicteric Neck: Supple, 2+ carotid pulse no bruit, No LAD, Without JVD or thyroid abnormality Respiratory: Clear to auscultation bilaterally, Normal air movement Cardiovascular: Regular rate/rhythm, Normal S1 S2 Gastrointestinal: Normal bowel sounds, No tenderness Musculoskeletal: No tenderness Integumentary: No rashes Neurological: Normal speech, Normal tone, Normal affect, Abnormal strength (Left lower extremity 2/5 strength), Abnormal sensation (Left lower extremity) - Studies Laboratory Data (last 24 hrs) 08/03/21 20:39: PT 11.1, INR 1.01, APTT 34.6 08/03/21 20:39: WBC 9.6, Hgb 14.4, Hct 42.8, Plt Count 373 08/03/21 20:39: Sodium 137, Potassium 3.0 L, BUN 11, Creatinine 1.00, Glucose 91, Magnesium 2.1, Total Bilirubin 0.3, AST 15, ALT 29, Alkaline Phosphatase 134 H <Arti Lauren - Last Filed: 08/04/21 03:49> Assessment and Plan - Problems (Diagnosis) (1) CVA (cerebral vascular accident) Current Visit: Yes Status: Acute Qualifiers: CVA mechanism: unspecified Qualified Code(s): I63.9 - Cerebral infarction, unspecified (2) S/P FORENSIC IDENTIFICATION SPECIALIST shunt Current Visit: Yes Status: Chronic (3) Graves disease Current Visit: Yes Status: Chronic (4) Hypokalemia Current Visit: Yes Status: Acute (5) Obesity Current Visit: Yes Status: Acute Qualifiers: Obesity type: due to excess calories Obesity classification: adult class 3 (BMI >= 40) Serious obesity comorbidity presence: without serious comorbidity Body mass index: BMI 45.0-49.9 Qualified Code(s): E66.01 - Morbid (severe) obesity due to excess calories; Z68.42 - Body mass index [BMI] 45.0-49.9, adult (6) Brain tumor Current Visit: Yes Status: Chronic - Plan -Patient admitted observation for CVA rule out. family history of blood clots and personal history of brain tumor -CT head negative for acute findings. CT head/neck angio negative for stenosis/occlusion -MRI stroke protocol and echo ordered for the morning. however, patient states that she cannot have an MRI due to her FORENSIC IDENTIFICATION SPECIALIST shunt that was placed 13 years ago. Need to verify. Dr. Kaur consulted. -Given TNKase in the ED. Folic acid and atorvastatin ordered daily -continue neuro checks overnight -Lovenox for VTE ppx Discharge Plan: Home Plan to discharge in: 24 Hours - Advance Directives Does patient have a Living Will: No Does patient have a Durable POA for Healthcare: No - Code Status/Comfort Care Code Status Assessed: Yes (Full) Critical Care: No Time Spent Managing Pts Care (In Minutes): 70 <Arti Lauren - Last Filed: 08/04/21 03:49> Date of Service: 08/04/21 Subjective: HPI as mentioned above Physical Examination: Vitals: Afebrile vital signs are stable Physical exam: Cardiovascular: Within normal limits. Lungs: Within normal limits Abdomen: Within normal limits Neuro: Awake, alert, oriented to person place and time Assessment: 1. TIA Plan: 1. Continue with current plan of care as mentioned above <Sarmad Nolasco - Last Filed: 08/05/21 09:56>
[2021-08-04] MEDS ORDERED: ONDANSETRON 4 MG/2 ML VIAL IV PRN (04:07)
[2021-08-04] MEDS ORDERED: ACETAMINOPHEN 500 MG TAB PO PRN (04:07)
[2021-08-04] MEDS: ATORVASTATIN 40 MG TAB PO SCH ×2 (04:07→20:48)
[2021-08-04] MEDS: FOLIC ACID 1 MG TABLET PO SCH (09:00)
[2021-08-04] MEDS ORDERED: ENOXAPARIN 40 MG/0.4 ML SQ ONE (09:14)
[2021-08-04] MEDS ORDERED: FOLIC ACID 1 MG TABLET ONE (09:14)
--- NOTE | 2021-08-04 10:50 | EKG ---
Test Date: 2021-08-03 Test Time: 20:49:19 Interlocking Installer: KAREN MEASUREMENT RESULTS: Intervals: Rate: 63 AL: 180 QRSD: 90 QT: 422 QTc: 431 [place]: P: 59 AL: 180 QRS: 3 T: 10 INTERPRETIVE STATEMENTS: Normal sinus rhythm Inferior infarct, age undetermined Cannot rule out Anterior infarct, age undetermined Abnormal ECG Compared to ECG 06/20/2021 01:23:07 No significant changes Electronically Signed On 08-04-21 10:50:01 CDT by Neel Sosa
--- NOTE | 2021-08-04 11:02 | ECHO ---
HEIGHT: 5 ft 4 in WEIGHT: 280 lb oz DATE OF STUDY: 08/04/[address]: Arti Lauren 2-DIMENSIONAL: YES M.MODE: YES DOPPLER: YES COLOR FLOW: YES TDS: NO PORTABLE: YES DEFINITY: NO BUBBLE STUDY: NO DIAGNOSIS: CEREBRAL VASCULAR ACCIDENT CARDIAC HISTORY: CATHERIZATION: SURGERY: PROSTHETIC VALVE: PACEMAKER: MEASUREMENTS (cm) DIASTOLIC (NORMALS) SYSTOLIC (NORMALS) IVSd 0.9 (0.6-1.2) LA Diam 3.8 (1.9-4.0) LVEF 55% LVIDd 3.9 (3.5-5.7) LVIDs 2.8 (2.0-3.5) %FS 28% LVPWd 1.1 (0.6-1.2) Ao Diam 2.3 (2.0-3.7) 2 DIMENSIONAL ASSESSMENT: RIGHT ATRIUM: NORMAL LEFT ATRIUM: NORMAL RIGHT VENTRICLE: NORMAL LEFT VENTRICLE: NORMAL TRICUSPID VALVE: NORMAL MITRAL VALVE: NORMAL PULMONIC VALVE: NORMAL AORTIC VALVE: NORMAL PERICARDIAL EFFUSION: NONE AORTIC ROOT: NORMAL LEFT VENTRICULAR WALL MOTION: NORMAL. DOPPLER/COLOR FLOW: NORMAL. COMMENTS: NORMAL 2D ECHO WITH DOPPLER. NO VEGETATION. NO THROMBUS. NO ATRIAL SEPTAL DEFECT. TECHNOLOGIST: VAIBHAV EDMONDS
--- NOTE | 2021-08-04 13:15 | RAD REPORT ---
EXAM DESCRIPTION: ADDENDUM #1 Urgent finding reported to KELECHI Cote at 08/03/2021 10: 42 PM CDT Electronically signed by: Reece Cortes 08/04/2021 12:38 AM CDT End of Addendum EXAM DESCRIPTION: 1. CTA of the head with contrast. 2. CTA of the neck with contrast. CLINICAL HISTORY: 46 years, Female, Transient ischemic attack (TIA) COMPARISON: None. TECHNIQUE: Axial CTA images of the head and neck obtained following the uncomplicated intravenous ad ministration of iodinated contrast. 3-D/MIP reformatted images available. This exam was performed acc ording to our departmental dose-optimization program, which includes automated exposure control, adju stment of the mA and/or kV according to patient size and/or use of iterative reconstruction technique . FINDINGS: CTA head: In the anterior circulation, the intracranial internal carotid arteries have normal course and calibe r. Nonflow limiting atherosclerotic plaque at the paraclinoid intracranial internal carotid arteries. The internal carotid arteries bifurcate into widely patent A1 and M1 segments of the anterior and mi ddle cerebral arteries respectively. No evidence of flow-limiting stenosis, aneurysm, occlusion, or d issection in the anterior circulation. The anterior communicating artery is patent. In the posterior circulation, the intracranial vertebral arteries combine to form a patent basilar ar katelyn. Circumferential atherosclerotic plaque of the proximal intracranial vertebral arteries. The bas ilar artery bifurcates into widely patent P1 segments of the posterior cerebral artery. No evidence o f stenosis, aneurysm, occlusion, or dissection in the posterior circulation. There is a rim-enhancing intra-axial structure in the posterior right temporal lobe measuring 2.2 cm best seen on image #47, series #605. Right ventriculoperitoneal shunt tubing is stable. No acute abno rmality of the osseous calvarium. Paranasal sinuses and mastoid air cells are well aerated. CTA NECK: The aortic arch has normal anatomic configuration. The origin of the great vessels are widely patent. The right common carotid artery is widely patent and bifurcates into widely patent internal and exter nal carotid arteries. Mild nonflow limiting atherosclerotic plaque at the carotid bulb. 0% stenosis b y NASCET criteria. No evidence of occlusion or dissection. The left common carotid artery is widely patent and bifurcates into widely patent internal and senior director of strategy al carotid arteries. 0% stenosis by NASCET criteria. No evidence of occlusion or dissection. The cervical vertebral arteries are widely patent throughout their course. No evidence of occlusion, stenosis, or dissection. No definite acute abnormalities in the neck soft tissues. No apical pneumothorax. No acute osseous ab normalities. Multilevel endplate spondylosis. IMPRESSION: 1. No evidence of occlusion, flow-limiting stenosis, or aneurysm in the intracranial a rterial circulation. 2. No evidence of stenosis/occlusion of the cervical carotid or vertebral arteries. 3. There is a 2.2 cm rim-enhancing intra-axial structure in the posterior right temporal lobe. Diff erential considerations include but are not limited to neoplasm, abscess, and inflammatory etiology. Follow-up contrast-enhanced MRI recommended for more complete characterization. Electronically signed by: Reece Cortes 08/03/2021 10:43 PM CDT Due to temporary technical issues with the PACS/Fluency reporting system, reports are being signed by the in house radiologists without review as a courtesy to insure prompt reporting. The interpreting radiologist is fully responsible for the content of the report.
--- NOTE | 2021-08-04 13:18 | RAD REPORT ---
EXAM DESCRIPTION: ADDENDUM #1 Urgent finding reported to KELECHI Cote at 08/03/2021 10: 42 PM CDT Electronically signed by: Reece Cortes 08/04/2021 12:38 AM CDT End of Addendum EXAM DESCRIPTION: 1. CTA of the head with contrast. 2. CTA of the neck with contrast. CLINICAL HISTORY: 46 years, Female, Transient ischemic attack (TIA) COMPARISON: None. TECHNIQUE: Axial CTA images of the head and neck obtained following the uncomplicated intravenous ad ministration of iodinated contrast. 3-D/MIP reformatted images available. This exam was performed acc ording to our departmental dose-optimization program, which includes automated exposure control, adju stment of the mA and/or kV according to patient size and/or use of iterative reconstruction technique . FINDINGS: CTA head: In the anterior circulation, the intracranial internal carotid arteries have normal course and calibe r. Nonflow limiting atherosclerotic plaque at the paraclinoid intracranial internal carotid arteries. The internal carotid arteries bifurcate into widely patent A1 and M1 segments of the anterior and mi ddle cerebral arteries respectively. No evidence of flow-limiting stenosis, aneurysm, occlusion, or d issection in the anterior circulation. The anterior communicating artery is patent. In the posterior circulation, the intracranial vertebral arteries combine to form a patent basilar ar katelyn. Circumferential atherosclerotic plaque of the proximal intracranial vertebral arteries. The bas ilar artery bifurcates into widely patent P1 segments of the posterior cerebral artery. No evidence o f stenosis, aneurysm, occlusion, or dissection in the posterior circulation. There is a rim-enhancing intra-axial structure in the posterior right temporal lobe measuring 2.2 cm best seen on image #47, series #605. Right ventriculoperitoneal shunt tubing is stable. No acute abno rmality of the osseous calvarium. Paranasal sinuses and mastoid air cells are well aerated. CTA NECK: The aortic arch has normal anatomic configuration. The origin of the great vessels are widely patent. The right common carotid artery is widely patent and bifurcates into widely patent internal and exter nal carotid arteries. Mild nonflow limiting atherosclerotic plaque at the carotid bulb. 0% stenosis b y NASCET criteria. No evidence of occlusion or dissection. The left common carotid artery is widely patent and bifurcates into widely patent internal and tomato pulper operator al carotid arteries. 0% stenosis by NASCET criteria. No evidence of occlusion or dissection. The cervical vertebral arteries are widely patent throughout their course. No evidence of occlusion, stenosis, or dissection. No definite acute abnormalities in the neck soft tissues. No apical pneumothorax. No acute osseous ab normalities. Multilevel endplate spondylosis. IMPRESSION: 1. No evidence of occlusion, flow-limiting stenosis, or aneurysm in the intracranial a rterial circulation. 2. No evidence of stenosis/occlusion of the cervical carotid or vertebral arteries. 3. There is a 2.2 cm rim-enhancing intra-axial structure in the posterior right temporal lobe. Diff erential considerations include but are not limited to neoplasm, abscess, and inflammatory etiology. Follow-up contrast-enhanced MRI recommended for more complete characterization. Electronically signed by: Reece Cortes 08/03/2021 10:43 PM CDT Due to temporary technical issues with the PACS/Fluency reporting system, reports are being signed by the in house radiologists without review as a courtesy to insure prompt reporting. The interpreting radiologist is fully responsible for the content of the report.
[2021-08-04 14:51] VITALS: BMI 48.0
[2021-08-04] MEDS: ENOXAPARIN 40 MG/0.4 ML SQ SCH (15:34)
[2021-08-04] MEDS: MORPHINE 2 MG/ML SYR IV PRN ×2 (15:34→15:51)
[2021-08-04 16:49] VITALS: O2SAT 96
[2021-08-04] MEDS ORDERED: POTASSIUM 25 MEQ EFFERV TAB PO ONE (20:00)
[2021-08-04] MEDS: DIAZEPAM 5 MG TABLET PO PRN (23:24)
[2021-08-05 03:00] LABS: Urine Appearance Cloudy (Clear); Urine Blood 3+ (Negative); Urine Color Yellow (Yellow); Urine Glucose Negative (Negative); Urine Protein 2+ (Negative); Urine Urobilinogen >=8.0 mg/dL (0.2-1.0)
[2021-08-05 03:02] LABS: Urine Microscopic Reflex ORDER UMIC
[2021-08-05 03:14] LABS: Urine Bacteria >50 /HPF (<20); Urine Urothelial Cells <5 /HPF (NONE SEEN)
[2021-08-05 03:36] LABS: Urine Bilirubin NEGATIVE (Negative)
[2021-08-05 04:27] LABS: Potassium 3.3 mmol/L (3.5-5.1)
[2021-08-05] MEDS: SERTRALINE HCL 50 MG TAB PO SCH (08:47)
[2021-08-05] MEDS: hydroCHLOROthiazide 25 MG TAB PO SCH (08:48)
[2021-08-05] MEDS: PROPRANOLOL HCL 10 MG TAB PO SCH ×2 (08:48→21:41)
[2021-08-05] MEDS: FOLIC ACID 1 MG TABLET PO SCH (08:48)
[2021-08-05] MEDS: ENOXAPARIN 40 MG/0.4 ML SQ SCH (08:49)
[2021-08-05] MEDS ORDERED: POTASSIUM 25 MEQ EFFERV TAB PO ONE (09:00)
--- NOTE | 2021-08-05 10:09 | P.PN ---
Subjective Date of Service: 08/05/21 CT Angio did reveal a 2.2 cm ring-enhancing lesion in the right temporal lobe. Spoke with neurology and we will do a EEG, CT abdomen pelvis and chest to rule out malignancy, lumbar puncture to rule out infectious acute etiology as well as cytology for malignancy. Started on Keppra and then if work-up is negative outpatient follow-up. Review of Systems 10-point ROS is otherwise unremarkable Physical Examination - Vital Signs Temperature: 96.9 F Blood Pressure: 106/54 Pulse: 64 Respirations: 14 Pulse Ox (%): 96 - Physical Exam General: Alert, In no apparent distress HEENT: Atraumatic, PERRLA, EOMI Neck: Supple, JVD not distended Respiratory: Clear to auscultation bilaterally, Normal air movement Cardiovascular: Regular rate/rhythm, Normal S1 S2 Gastrointestinal: Normal bowel sounds, No tenderness Musculoskeletal: No tenderness Integumentary: No rashes Neurological: Normal speech, Normal tone, Normal affect Lymphatics: No axilla or inguinal lymphadenopathy - Studies Medications List Reviewed: Yes Assessment & Plan - Problems (Diagnosis) (1) TIA (transient ischemic attack) Current Visit: Yes Status: Acute (2) Brain lesion Current Visit: Yes Status: Acute (3) S/P METAL PATTERNMAKER APPRENTICE shunt Current Visit: Yes Status: Chronic - Plan 1. MRI of the brain unable to obtain because of-METAL PATTERNMAKER APPRENTICE shunt 2. Antiplatelet and statin therapy; hold antiplatelet therapy 3. Lipid profile performed 4. Physical therapy and speech therapy consultation pending 5. DVT prophylaxis-on hold for lumbar puncture 6. Neurochecks every 4 hours 7. Reassess stroke scale 8. Appreciate neurology input 9. GI and DVT prophylaxis Discharge Plan: Home Plan to discharge in: Greater than 2 days - Advance Directives Does patient have a Living Will: No Does patient have a Durable POA for Healthcare: No - Code Status/Comfort Care Code Status Assessed: Yes Code Status: Full Code Critical Care: No Time Spent Managing PTS Care (In Minutes): 35
[2021-08-05] MEDS: levETIRAcetam 500 MG in NA CHLORIDE 0.9% 100 ML IV SCH ×2 (11:16→23:24)
--- NOTE | 2021-08-05 13:17 | RAD REPORT ---
EXAM DESCRIPTION: CT - Head Brain W Cont - 08/05/2021 12:51 pm CLINICAL HISTORY: brain lesion COMPARISON: Head angio dated 08/03/2021; Ct Stroke Brain Wo Cont dated 08/03/2021; Chest Abdomen Pelvis W Cont dated 08/05/2021 TECHNIQUE: All CT scans are performed using dose optimization technique as appropriate and may inclu de automated exposure control or mA/KV adjustment according to patient size. Contrast was administere d. FINDINGS: Right parietal approach ventriculostomy. No hydrocephalus. 2 cm peripherally enhancing mas s which contacts the dura along the right posterior temporal lobe with resultant vasogenic edema. As noted, the lesion does contact the right aspect of the cerebellar falx. It does however appear to be more intraparenchymal rather than an extra-axial mass such as a meningioma. There are some small calc ified masses along the inner table of the skull at the right frontal and parietal calvarium that may represent calcified meningiomas. Dural-based enhancing lesion along the left temporal lobe measures 1 2 millimeters. This lesion is extra-axial and may be a meningioma. . IMPRESSION: Peripherally enhancing brain lesion along the right posterior temporal lobe consistent w ith neoplasm. There are several other meningiomas identified. Whether this lesion also represents a m eningioma with aggressive features is unclear. Recommend neurosurgical consultation.
--- NOTE | 2021-08-05 13:23 | RAD REPORT ---
EXAM DESCRIPTION: CTChest Abdomen Pelvis W Cont - 08/05/2021 12:51 pm CLINICAL HISTORY: malignancy COMPARISON: Head Brain Wo Cont dated 09/21/2018 TECHNIQUE: CT of the chest, abdomen, and pelvis was performed. All CT scans are performed using dose optimization technique as appropriate and may include automated exposure control or mA/KV adjustment according to patient size. FINDINGS: Thorax: Chest Wall: 14 mm rounded presumed lymph node in the right axilla has a normal appearance of a lymph node in the coronal plane and is of doubtful significance. WALLPAPERER HELPER shunt tube in the anterior chest wall o n the right side. Lungs: No acute abnormality. Pleura: No effusions or pneumothorax. Belia/Mediastinum: No lymphadenopathy. Aorta/Pulmonary Arteries: Unremarkable Heart: Normal size. Abdomen/Pelvis: Liver: Hepatic steatosis. Biliary: Cholecystectomy Stomach: No significant focal abnormality. Duodenum: No significant focal abnormality. Pancreas: No significant abnormality. Spleen: No significant abnormality. Adrenal: No suspicious lesions. Kidney/ureter: No hydronephrosis. No renal calculi. Retroperitoneum: No retroperitoneal adenopathy. Vascular: No aneurysm. Bowel: No significant focal abnormality. Peritoneum: No ascites or free air. Bladder: Grossly unremarkable. Reproductive: No adnexal masses. Bones: No acute fracture. Other: n/a IMPRESSION: No primary lesion or evidence of metastatic disease is identified in the chest, abdomen, or pelvis.
[2021-08-05] MEDS: ATORVASTATIN 40 MG TAB PO SCH (21:41)
[2021-08-05] MEDS: MORPHINE 2 MG/ML SYR IV PRN (23:05)
--- NOTE | 2021-08-05 23:44 | CON ---
Reason For Consultation: Consultation called because of possible stroke. History Of Present Illness: Ms. Figueroa is a 46-year-old patient with a history of Graves disease and a history of benign central nervous system tumors that required resection due to mass eff ect and obstructive hydrocephalus since a young age, the patient said 2 years old. Surgery was done and she subsequently developed hydrocephalus and required a ventriculoperitoneal shunt. The shunt wa s working well until about 13 years ago when it became obstructed. She had worsening hydrocephalus a nd it was revised by her neurologist, Dr. Rogers, in [place] and has not been evaluated since the n. The direct reason for coming to [facility] is she developed left lower and then upper ex tremity weakness and was seen at [facility], had a negative head CT scan for any acute ische maninder or hemorrhagic change. She did have a CT scan finding, a 2.2 cm ring-enhancing structure in the right posterior temporal lobe. It should be noted she did come to [facility] within the [facility] for TNKs and did receive TNKs in the emergency room and her symptoms have not worsened any. She did have a negative ultrasound of the lower extremity for DVT. The MRI in addition to the right temp oral lobe possible meningioma identified several other meningiomas in the right frontal and parietal calvarium in addition to a 12 mm dural-based left temporal lobe extra-axial meningioma. There is no evidence of acute ischemic or hemorrhagic stroke in the patient's MRI. She had the possibility of a urinary tract infection with esterase 3+, white blood cells greater than 50, bacteria greater than 50 and she was treated with intravenous hydration. No antibiotics as cultures so far negative. She wa s given Keppra 500 mg IV and 250 mg twice daily given the possibility of seizures given the location of the meningiomas. Past Medical History: As noted including anxiety and migraines. Surgical History: Ventriculoperitoneal shunt, central nervous system meningioma resection, appendect fernando, and cholecystectomy. Social History: The patient denies alcohol, tobacco, or IV drug use. She lives at home with her bin freeman. Family History: Breast cancer in mother and father with history of blood clots. Current Medications: Zoloft 50 mg daily, Inderal 10 mg twice daily, Keppra 500 mg every 12 hours, fo lic acid 1 mg daily, HydroDIURIL 25 mg daily, Lovenox 40 mg subcutaneously daily, Lipitor 40 mg at be dtime, extra-strength Tylenol 500 mg every 4 hours as needed, and diazepam 5 mg at bedtime as needed for insomnia. Review of Systems: As mentioned above. She has had some issues with her balance, coordination, difficulty with articula tion and had some memory loss since having the hydrocephalus with shunt placement and more recent wea kness in the left arm and leg, which is left arm around 50% back to normal. Left leg also is slightl y weak as well. Physical Examination: VITAL SIGNS: Blood pressure 109/46, pulse 59, respiratory rate 14, temperature 97.9, and oxygen satu ration 96% on room air. Weight 280 pounds, height 5 feet 4 inches, BMI 48.1. GENERAL: Ms. Figueroa is resting in bed. She is in no significant distress. HEENT: She is normocephalic and atraumatic. Sclerae are anicteric. She does have left eye exotropi a. NEUROLOGIC: Otherwise, cranial nerves are intact. Motor examination, right upper and lower extremit ies mild weakness, but rated around 5-/5 in the left upper extremity, 3 to 4/5 in the lower extremity , 3 to 4/5 proximally and distally. Sensation is slightly decreased in the left arm and leg compared to the right side. Coordination is slow in the upper and lower extremities. No yolis dysmetria. T he patient was not ambulated. She will be ambulated with physical therapy using a gait belt in her h igh risk of falling and she does have a ventriculoperitoneal shunt. Laboratory Studies: Complete blood count with differential essentially unremarkable. Coagulation pa gina is normal. Chemistries showed low potassium on admission around 3, now corrected to 3.8. Her li larry function studies show elevated alkaline phosphate of 134, normal AST and ALT. LDL cholesterol 10 7, HDL 36. TSH 1.18. Urine drug screen is negative. COVID testing is negative. Assessment: Ms. Figueroa is a 46-year-old patient with multiple medical problems including Graves dis ease, multiple brain meningiomas, anxiety, migraine, seizures, and a potential new more aggressive ri ght posterior temporal masses showing ring enhancement suggestive of edema and compression. Plan: 1.Should be seen by her neurologist and neurosurgeon for possible intervention here, her neurosurgeo n is in [place]. 2.She should continue Keppra 500 mg twice daily. 3.The patient's mother will actually take her to [place] to follow up with her neurologist and jaquan potter. 4.The patient's shunt that was evaluated by CT scan of chest, abdomen, and pelvis did not show any a bnormalities and she has no evidence of any primary tumors in the chest, abdomen, and pelvis on CT sc an. 5.She did have an EEG, this study was normal. 6.She again may be discharged and follow up with her neurosurgeon in [place]. LIZET/CHARISMA Voice ID: [id number] Report ID: [id number]
[2021-08-06] MEDS: DIAZEPAM 5 MG TABLET PO PRN (00:50)
[2021-08-06 05:59] LABS: Hematocrit 40.3 % (36.0-45.0); Lymphocytes % 23.4 % (15.3-44.8); RBC Red Blood Cell Count 4.61 M/uL (3.86-4.86)
[2021-08-06 06:12] LABS: Potassium 3.5 mmol/L (3.5-5.1)
--- NOTE | 2021-08-06 08:03 | EEG ---
CHART: [id number] TEST ID#: [id number] DATE OF STUDY: 08/05/2021 THE EEG WAS RECORDED PORTABLE IN THE PATIENT'S ROOM ON A 17 CHANNEL MACHINE. ELECTRODES WERE APPLIED IN THE USUAL MANNER USING THE INTERNATIONAL 10-20 SYSTEM. THE WAKING BACKGROUND RHYTHM IN THIS RECORD CONSISTS OF WELL DEVELOPED AND WELL ORGANIZED WAVES OF 10 HZ., MAXIMAL IN THE POSTERIOR HEAD REGIONS WHICH ATTENUATE NORMALLY WITH EYE OPENING. LOW-VOLTAGE 18-22 HZ IS EXPRESSED IN THE FRONTAL REGIONS. THERE ARE NO FOCAL OR LATERALIZING FEATURES. NO EPILEPTIFORM ACTIVITY APPEARS. SLEEP DID NOT OCCUR. HYPERVENTILATION WAS NOT PERFORMED. PHOTIC STIMULATION PRODUCED FAIR DRIVING BILATERALLY. IMPRESSION: NORMAL EEG FOR THE AGE OF THE PATIENT IN [place].
[2021-08-06] MEDS: ENOXAPARIN 40 MG/0.4 ML SQ SCH (09:00)
[2021-08-06] MEDS ORDERED: POTASSIUM CL SA 10 MEQ TAB PO ONE (09:00)
[2021-08-06] MEDS: hydroCHLOROthiazide 25 MG TAB PO SCH (09:32)
[2021-08-06] MEDS: FOLIC ACID 1 MG TABLET PO SCH (09:32)
[2021-08-06] MEDS: SERTRALINE HCL 50 MG TAB PO SCH (09:32)
[2021-08-06] MEDS: PROPRANOLOL HCL 10 MG TAB PO SCH (09:35)
[2021-08-06] MEDS: levETIRAcetam 500 MG in NA CHLORIDE 0.9% 100 ML IV SCH (10:25)
[2021-08-06 13:05] VITALS: TEMP 97.3
[2021-08-06 17:37] VITALS: BP 116/65
--- NOTE | 2021-08-29 05:03 | P.DS ---
Discharge Date: 08/06/21 Primary Care Provider: Cal Disposition: ROUTINE DISCHARGE Discharge Condition: GOOD Reason for Admission: CVA - Problems (1) TIA (transient ischemic attack) Status: Acute (2) Brain lesion Status: Acute (3) S/P HAT RENOVATOR shunt Status: Chronic Brief History of Present Illness: Patient is a 46-year-old female with past medical history of Graves' disease, brain tumor, migraines who presented to the ED with complaints of left lower extremity weakness. There was initially concern for DVT however upon assessment her stroke screen was positive. CT head negative, CT head/neck angio showed no evidence of occlusion or stenosis and 2.2 cm rim-enhancing intra-axial stricture in the posterior right temporal lobe. She was given TNKase in the ED. Venous ultrasound negative for DVT. Upon my assessment, patient states that most of her symptoms have resolved. She states that she does not remember everything that happened when she initially got to the emergency department and feels very tired. She has decreased sensation and strength in her left lower extremity but improving. Dr. Kaur was notified and wishes for patient to be admitted for observation with him consulting and for MRI stroke protocol in the morning. Hospital Course: Had a lesion on the CT scan that will need to be followed up as an outpatient. Dr. Kaur will follow the patient, and he will arrange for outpatient neurosurgery follow-up. At this time, patient is clinically doing well and is stable for discharge home. Vital Signs/Physical Exam: Temp Pulse Resp BP Pulse Ox 97.3 F 63 18 116/65 93 08/06/21 16:00 08/06/21 16:00 08/06/21 16:00 08/06/21 16:00 08/06/21 16:00 General: Alert, In no apparent distress, Oriented x3 Laboratory Data at Discharge: WBC 8.3 K/uL (4.3-10.9) 08/06/21 05:44 Hgb 13.5 g/dL (12.0-15.0) 08/06/21 05:44 Hct 40.3 % (36.0-45.0) 08/06/21 05:44 Plt Count 329 K/uL (152-406) 08/06/21 05:44 PT 11.1 SECONDS (9.5-12.5) 08/03/21 20:39 INR 1.01 08/03/21 20:39 APTT 34.6 SECONDS (24.3-36.9) 08/03/21 20:39 Sodium 137 mmol/L (136-145) 08/06/21 05:44 Potassium 3.5 mmol/L (3.5-5.1) 08/06/21 05:44 BUN 8 mg/dL (7-18) 08/06/21 05:44 Creatinine 0.75 mg/dL (0.55-1.3) 08/06/21 05:44 Glucose 91 mg/dL (74-106) 08/06/21 05:44 Magnesium 2.1 mg/dL (1.8-2.4) 08/03/21 20:39 Total Bilirubin 0.3 mg/dL (0.2-1.0) 08/03/21 20:39 AST 15 U/L (15-37) 08/03/21 20:39 ALT 29 U/L (12-78) 08/03/21 20:39 Alkaline Phosphatase 134 U/L (45-117) H 08/03/21 20:39 Triglycerides 122 mg/dL (<150) 08/04/21 05:01 Cholesterol 167 mg/dL (<200) 08/04/21 05:01 HDL Cholesterol 36 mg/dL (40-60) L 08/04/21 05:01 Cholesterol/HDL Ratio 4.64 08/04/21 05:01 Home Medications: Montelukast Sodium [Singulair] 10 mg PO DAILY 08/04/21 Pregabalin [Lyrica] 25 mg PO DAILY 08/04/21 Propranolol [Inderal*] 10 mg PO BID 08/04/21 SUMAtriptan succinate [Sumatriptan Succinate] 1 tab PO DAILY PRN 08/04/21 Sertraline [Zoloft] 50 mg PO DAILY 08/04/21 hydroCHLOROthiazide [Hydrochlorothiazide] 25 mg PO DAILY 08/04/21 Physician Discharge Instructions: -DC IV and DC home -Follow-up with PCP in 1 to 2 weeks -Follow-up with Neurology-Vincent, and Neurosurgery in 1 to 2 weeks -Please call Dr. Nolasco at [phone] if any questions regarding hospital stay -Please call nursing station at [phone] if any nursing or medication questions -Return to the emergency room if symptoms worsen Diet: Regular Activity: Fall precautions Followup: Hema Kaur MD [ASSOCIATE-ACTIVE - CAN ADMIT] - 1-2 Weeks Sunil Mccall DO [Primary Care Provider] - (Call to schedule appointment.) Time spent managing pt's care (in minutes): 35
== END 2021-08-06 19:46 | disposition home or self-care (01) | DRG 62 ==
LOC: ER 19:26 → ERHOLD 08-04 00:45 → 4TH 08-04 10:58 → OBSVTOIN 08-04 18:06 → 2ND 08-05 18:09
PROVIDERS: ADMIT Hospitalist; ATTEND Hospitalist
DX: G45.9 Transient cerebral ischemic attack, unspecified (principal); Z68.42 Body mass index [BMI] 45.0-49.9, adult; E05.00 Thyrotoxicosis with diffuse goiter without thyrotoxic crisis or storm; E87.6 Hypokalemia; E66.01 Morbid (severe) obesity due to excess calories; D32.0 Benign neoplasm of cerebral meninges; G43.909 Migraine, unspecified, not intractable, without status migrainosus; F41.9 Anxiety disorder, unspecified; Z98.2 Presence of cerebrospinal fluid drainage device; Z80.3 Family history of malignant neoplasm of breast; Z20.822 Contact with and (suspected) exposure to COVID-19
CPT/HCPCS: 0240U; 36415; 70450; 70460; 70496; 70498; 71045; 71260; 74177; 80048; 80061; 80076; 80307; 81003; 81015; 82550; 82553; 82947; 83735; 84132; 84443; 85025; 85610; 85730; 87086; 87088; 92977; 93005; 93306; 93971; 95816; 96365; 96366; 97161; 97530; 99291; 99292; G0378; J1650; J1953; J2270; J2405; J3101; Q9967

== ENCOUNTER 2022-03-23 22:24 | Emergency (ER) | payer OTHER ==
--- OUTSIDE RECORDS SUMMARY | 2022-03-23 22:34 | XMS REPORT | Continuity of Care Document ---
:1975 Author Organization [facility] Address [address] [place] [address] Care Team Providers Name Role Phone MANJINDER CHACON MATT Primary Care Physician Unavailable Manjinder Chacon Attending Clinician Unavailable IMANI MARTINO K.H. Attending Clinician Unavailable Doctor Unassigned, [place] Attending Clinician Unavailable Katherine BROOKS, Kathryn Velasquez Attending Clinician [phone] Alonso Herrera MD Attending Clinician Norman Nguyễn RN Attending Clinician Unavailable Carol ELLIS, Shila Attending Clinician Unavailable Salena HAHN, Sendtequila K.H. Attending Clinician Acacia Lewis MD Attending Clinician Kelvin HAHN, Joel Mendez Attending Clinician [phone] Binu HAHN, Fredi Attending Clinician Lauren Francois MD Attending Clinician iRchelle Lowry MD Attending Clinician Alex Dillon MD Attending Clinician Mendez ELLIS, Rupinder Attending Clinician Unavailable FANNIE BRAMBILA Attending Clinician Unavailable Fannie Leonard Attending Clinician Pratibha Cool MD Attending Clinician Visit, Adc Nurse Attending Clinician Unavailable Angelina Quinones MD Attending Clinician ANGELINA QUINONES Attending Clinician Unavailable Pc, Adc Echo Room 1 - Attending Clinician Unavailable Ismael Meyers Attending Clinician Denys Vázquez MD Attending Clinician ACACIA LEWIS Admitting Clinician Unavailable FREDI SCHMID Admitting Clinician Unavailable FANNIE BRAMBILA Admitting Clinician Unavailable Payers Payer Name Policy Type Policy Number Effective Date Expiration Date S elsa [facility] STAR [id number] 2019 PLUS 00:00:00 [place] [id number] 2019 Common HEALTHCARE 00:00:00 [facility] STAR [id number] 2019 PLAN 00:00:00 Problems Condition Condition Condition Status Onset Resolution Last Treating Co mments Source Name Details Category Date Date Treatment Clinician Date Mass of Mass of Disease Active Methodi brain brain 08-26 00:00: Hospita 00 l Brain mass Brain mass Disease Active M ethodi 08-08 st 00:00: Hospita 00 l Immune to Immune to Disease Active Uni vers varicella varicella 6-29 ity of 00:00: [address] Excessive Excessive Disease Active Uni vers or or 6-21 ity of frequent frequent 00:00: [place] menstruati menstruati 00 Me dical on on Branch Knee pain, Knee pain, Disease Active U nivers left left 4-05 ity of 00:00: [place] [facility] [place] Knee pain, Knee pain, Disease Active U nivers left left 4-05 ity of 00:00: [address] Subclinica Subclinica Problem Active C ommon l l Spirit [facility]ro [facility] [id number] Allergic Problem Active Commo n rhinitis, Spirit unspecifie - [facility] d [facility] y, Medical unspecifie Center d trigger [id number] Morbid Problem Active Commo n 9104 (severe) Spirit obesity - [facility] due to [facility] [id number] Hyperthyro Problem Active Com mon idism Spirit - [facility] Laboratory Abnormal Problem Active Com mon test laboratory Spirit result test - CHI abnormal [facility] Graves Graves Problem Active Common disease disease Spirit - [facility] 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 of brain tumor [facility] [id number] Migraine Problem Active Comm on without Spirit aura and - CHI without [facility] migrainosu Medica l s, not Center intractabl e [id number] Abnormal Problem Active Comm on mammogram Spirit of left - CHI breast [facility] [id number] Body mass Problem Active Com mon index Spirit (BMI) - CHI 45.0-49.9, [facility] [id number] Essential Problem Active Comm on hypertensi Spirit on - CHI [facility] [id number] MARYBETH Problem Active Common (generaliz Spirit ed anxiety - CHI disorder) [facility] [id number] Insomnia, Problem Active Com mon unspecifie Spirit d type - CHI [facility] No known No known Disease [facility] active active [facility] problems problems of Medicin e Allergies, Adverse Reactions, Alerts Allergy Allergy Status Severity Reaction(s) Onset Inactive Treating Comm ents Source Name Type Date Date Clinician PECAN DRUG Active High Anaphylaxis Unive rs NUT INGREDI 09-09 ity of 00:: [address] Pecan Propensi Active Anaphylaxis Met hodi Nut ty to 09-09 st adverse 00:00: Hospita reaction 00 l s to drug IODINE DRUG Active Med Rash Univers INGREDI 08-10 ity of 00:00: [place] 00 Medical Branch Iodine Propensi Active Rash Methodi ty to 08-10 st adverse 00:00: Hospita reaction 00 l s to drug NAPROXEN DRUG Active Hives Univers INGREDI 08-08 ity of 00:00: [place] 00 Medical Branch Naproxen Propensi Active Hives Method i ty to 08-08 st adverse 00:00: Hospita reaction 00 l s to drug Tramadol Propensi Active Hives Method i ty to 08-08 st adverse 00:00: Hospita reaction 00 l s to drug Tramadol Propensi Active Hallucinatio [facility] ty to ns 814 College adverse 00:00: of reaction 00 Medicin s to e drug Tramadol Propensi Active Hallucinatio [facility] ty to ns 14 ity of adverse 00:00: [place] reaction 00 Medical s Branch TRAMADOL DRUG Active Hallucinates Un vale INGREDI 11-15 ity of 00:00: [place] 00 Medical Branch Social History Social Habit Start Date Stop Date Quantity Comments Source History of Common Spirit - Tobacco Use [facility] History [facility] ge of Alcohol Std Medicine Drinks History [facility] ge of Alcohol Binge Medicine Exposure to 2022-03-07 2022-03-17 Not sure University of SARS-CoV-2 00:00:00 15:21:00 [place] Medical (event) Branch Alcohol intake 2021-08-26 2021-08-26 Ex-drinker [facility] 00:00:00 00:00:00 (finding) Hospital Tobacco use and 2021-08-08 2021-08-08 Smokeless tobacco [facility] exposure 00:00:00 00:00:00 non-user Hospital History [facility] 2019-11-22 2019-11-22 3 [facility] ge of Alcohol Frequency 00:00:00 00:00:00 Medicin e Sex [birth year] At [birth year] [facility] 00:00:00 00:00:00 Hospital Smoking Status Start Date Stop Date Source Never Smoker [facility] Spirit - [facility] Medications Ordered Filled Start Stop Current Ordering Indication Dosage Frequency Signature Comments Components Source Medication Medication Date Date Medication? Clinician (SIG) Name Name Macrobid Macrobid 2021- No BID Macrobid 100 MG 100 MG 8-12 08-17 100 MG 00:00: 00:00 00 :00 diazePAM 2021- No Take 1 tab Me thodi (Valium) 5 - 07-19 (5mg) 60m [facility] MG tablet 00:00: 04:59 prior to Hos florencio 00 :00 MRI for l anxiety, may repeat up to one dose every 30m as needed diazePAM 2021- No Take 1 tab Me thodi (Valium) 5 09-29 07-19 (5mg) 60m st MG tablet 00:00: 04:59 prior to Hos florencio 00 :00 MRI for l anxiety, may repeat up to one dose every 30m as needed Pregabalin Pregabalin No Pregabalin 75 MG 75 MG 6-22 75 MG 00:00: 00 Pregabalin Pregabalin 2021-0 No Pregabalin 75 MG 75 MG 6-22 75 MG 00:00: 00 Pregabalin Pregabalin 2021-0 No Pregabalin 75 MG 75 MG 6-22 75 MG 00:00: 00 Pregabalin Pregabalin 2021-0 No Pregabalin 75 MG 75 MG 6-22 75 MG 00:00: 00 acetaminoph 2021- No [id number] 1{tbl} Q6H Take 1 Methodi en-codeine 09-[address] (TYLENOL 00:00: 04:59 mouth Hospita WITH 00 :00 every 6 l CODEINE #3) (six) 300-30 mg hours as per tablet needed for moderate pain for up to 10 [place] [id number] 1{tbl} Q6H Take 1 Methodi en-codeine 09-14-[address] (TYLENOL 00:00: 04:59 mouth Hospita WITH 00 :00 every 6 l CODEINE #3) (six) 300-30 mg hours as per tablet needed for moderate pain for up to 10 days .acute pain. sertraline 2022- No 50mg QD Take 1 Meth shay (ZOLOFT) 50 09-10-10 tablet (50 s t MG tablet 00:00: 04:59 mg total) Ho spita 00 :00 by mouth l daily. sertraline 2022- No 50mg QD Take 1 Meth shay (ZOLOFT) 50 09-10 tablet (50 s t MG tablet 00:00: 04:59 mg total) Ho spita 00 :00 by mouth l daily. hydroCHLORO 2021-0 Yes 25mg QD Take 25 mg Methodi thiazide 6-[address] (HYDRODIURI 20:07: daily. Hosp isael L) 25 MG 00 l tablet hydroCHLORO 2021-0 Yes 25mg QD Take 25 mg Methodi thiazide 6-[address] (HYDRODIURI 20:07: daily. Hosp isael L) 25 MG 00 l tablet butalbitaL- 2021-0 Yes 1{tbl} Q4H Take 1 Me thodi acetaminoph 6-[address] en (BUPAP) 00:00: mouth Hospit a 50-325 mg 00 every 4 l tablet (four) hours as needed (headaches ). butalbitaL- 2021-0 Yes 1{tbl} Q4H Take 1 Me thodi acetaminoph 6-[address] en (BUPAP) 00:00: mouth Hospit a 50-325 mg 00 every 4 l tablet (four) hours as needed (headaches ). levETIRAcet 2021-2022- No 500mg Q.5D Take 1 Me thodi am (KEPPRA) 09-[address] 500 MG 00:00: 04:59 (500 mg Hospita tablet 00 :00 total) by l mouth 2 (two) times a day. levETIRAcet 2021-0 2022- No 500mg Q.5D Take 1 Me thodi am (KEPPRA) 09-[address] 500 MG 00:00: 04:59 (500 mg Hospita tablet 00 :00 total) by l mouth 2 (two) times a day. dexamethaso 2021-2021- No 2mg Q.5D Take 1 Met hodi ne 09-0916 tablet (2 st (DECADRON) 00:00: 04:59 mg total) H ospita 2 MG tablet 00 :00 by mouth l every 12 (twelve) hours for 7 days. dexamethaso 2021-0 2021- No 2mg Q.5D Take 1 Met hodi ne 6-08 06-16 tablet (2 st (DECADRON) 00:00: 04:59 mg total) H ospita 2 MG tablet 00 :00 by mouth l every 12 (twelve) hours for 7 days. SERTraline 2-0 Yes 100mg Take 100 Un vale 100 mg 4-21 mg by ity of tablet 13:25: mouth [place] 20 daily. Medical Branch sertraline 2021-0 Yes Take by Univ ers HCl (ZOLOFT 4-21 mouth. ity of ORAL) 13:25: [place] 20 Medical Branch SERTraline 2-0 Yes 100mg Take 100 Un vale 100 mg 4-21 mg by ity of tablet 13:25: mouth [place] 20 daily. Medical Branch sertraline 2021-0 Yes Take by Univ ers HCl (ZOLOFT 4-21 mouth. ity of ORAL) 13:25: [place] 20 Medical Branch SERTraline 2-0 Yes 100mg Take 100 Un vale 100 mg 4-21 mg by ity of tablet 13:25: mouth [place] 20 daily. Medical Branch sertraline 2-0 Yes Take by Univ ers HCl (ZOLOFT 4-21 mouth. ity of ORAL) 13:25: [place] 20 Medical Branch SERTraline 2-0 Yes 100mg Take 100 Un vale 100 mg 4-21 mg by ity of tablet 13:25: mouth [place] 20 daily. Medical Branch sertraline 2-0 Yes Take by Univ ers HCl (ZOLOFT 4-21 mouth. ity of ORAL) 13:25: [place] 20 Medical Branch sumatriptan 2021-0 Yes Take by Uni vers succ/naprox 4-21 mouth as ity of en sod 13:23: needed. [place] (SUMATRIPTA 09 Medical N-NAPROXEN Branch ORAL) propranoloL 2-0 Yes 10mg Take 10 mg Univers 10 mg 4-21 by mouth 2 ity of tablet 13:23: (two) [place] 09 times Medical daily. Branch sumatriptan 2021-0 Yes Take by Uni vers succ/naprox 4-21 mouth as ity of en sod 13:23: needed. [place] (SUMATRIPTA 09 Medical N-NAPROXEN Branch ORAL) propranoloL 2022-0 Yes 10mg Take 10 mg Univers 10 mg 4-21 by mouth 2 ity of tablet 13:23: (two) [place] 09 times Medical daily. Branch sumatriptan 0 Yes Take by Uni vers succ/naprox 4-21 mouth as ity of en sod 13:23: needed. [place] (SUMATRIPTA 09 Medical N-NAPROXEN Branch ORAL) propranoloL 2021-0 Yes 10mg Take 10 mg Univers 10 mg 4-21 by mouth 2 ity of tablet 13:23: (two) [place] 09 times Medical daily. Branch sumatriptan 2021-0 Yes Take by Uni vers succ/naprox 4-21 mouth as ity of en sod 13:23: needed. [place] (SUMATRIPTA 09 Medical N-NAPROXEN Branch ORAL) propranoloL 2021-0 Yes 10mg Take 10 mg Univers 10 mg 4-21 by mouth 2 ity of tablet 13:23: (two) [place] 09 times Medical daily. Branch Lyrica 75 Lyrica 75 No 1{capsu QD Lyrica 75 MG MG 2-03 le} MG 00:00: 00 Lyrica 75 Lyrica 75 0 No 1{capsu QD Lyrica 75 MG MG 2-03 le} MG 00:00: 00 Lyrica 75 Lyrica 75 0 No 1{capsu QD Lyrica 75 MG MG 2-03 le} MG 00:00: 00 Lyrica 75 Lyrica 75 0 No 1{capsu QD Lyrica 75 MG MG 2-03 le} MG 00:00: 00 Lyrica 75 Lyrica 75 2021-0 No 1{capsu QD Lyrica 75 MG MG 2-03 le} MG 00:00: 00 Lyrica 75 Lyrica 75 0 No 1{capsu QD Lyrica 75 MG MG 2-03 le} MG 00:00: 00 Lyrica 75 Lyrica 75 2021-0 No 1{capsu QD Lyrica 75 MG MG 2-03 le} MG 00:00: 00 Lyrica 75 Lyrica 75 0 No 1{capsu QD Lyrica 75 MG MG 2-03 le} MG 00:00: 00 Lyrica 75 Lyrica 75 2021-0 No 1{capsu QD Lyrica 75 MG MG 2-03 le} MG 00:00: 00 Lyrica 75 Lyrica 75 2-0 No 1{capsu QD Lyrica 75 MG MG 2-03 le} MG 00:00: 00 Lyrica 75 Lyrica 75 2-0 No 1{capsu QD Lyrica 75 MG MG 2-03 le} MG 00:00: 00 Amoxicillin Amoxicillin 2-0 2022- No 1{table BID Amoxicilli -Pot -Pot 205-14 t} n-Pot Clavulanate Clavulanate 00:00: 00:00 Clavulanat 875-125 MG 875-125 MG 00 :00 e 875-125 MG Pregabalin Pregabalin 2-0 No Pregabalin 75 MG 75 MG 1-23 75 MG 00:00: 00 Pregabalin Pregabalin 2022-0 No Pregabalin 75 MG 75 MG 1-23 75 MG 00:00: 00 Pregabalin Pregabalin 2-0 No Pregabalin 75 MG 75 MG 1-23 75 MG 00:00: 00 Pregabalin Pregabalin 2022-0 No Pregabalin 75 MG 75 MG 1-23 75 MG 00:00: 00 Pregabalin Pregabalin 2022-0 No Pregabalin 75 MG 75 MG 1-23 75 MG 00:00: 00 Pregabalin Pregabalin 2022-0 No Pregabalin 75 MG 75 MG 1-23 75 MG 00:00: 00 Pregabalin Pregabalin 2022-0 No Pregabalin 75 MG 75 MG 1-23 75 MG 00:00: 00 Pregabalin Pregabalin 2022-0 No Pregabalin 75 MG 75 MG 1-23 75 MG 00:00: 00 Pregabalin Pregabalin 2022-0 No Pregabalin 75 MG 75 MG 1-23 75 MG 00:00: 00 Pregabalin Pregabalin 2022-0 No Pregabalin 75 MG 75 MG 1-23 75 MG 00:00: 00 Pregabalin Pregabalin 2022-0 No Pregabalin 75 MG 75 MG 1-23 75 MG 00:00: 00 Pregabalin Pregabalin 2022-0 No Pregabalin 75 MG 75 MG 1-23 75 MG 00:00: 00 Pregabalin Pregabalin 2022-0 No Pregabalin 75 MG 75 MG 1-23 75 MG 00:00: 00 Rocephin Rocephin 2021-0 No 1g Commo n (Ceftriaxon (Ceftriaxon 1-03 S pirit e) e) 00:00: - CHI 00 [facility] Rocephin Rocephin 2-0 No 1g Commo n (Ceftriaxon (Ceftriaxon 1-03 S pirit e) e) 00:00: - CHI 00 [facility] Rocephin Rocephin 2021-0 No 1g Commo n (Ceftriaxon (Ceftriaxon 1-03 S pirit e) e) 00:00: - CHI 00 [facility] Rocephin Rocephin 2021-0 No 1g Commo n (Ceftriaxon (Ceftriaxon 1-03 S pirit e) e) 00:00: - CHI 00 [facility] Rocephin Rocephin 2021-0 No 1g Commo n (Ceftriaxon (Ceftriaxon 1-03 S pirit e) e) 00:00: - CHI 00 [facility] Rocephin Rocephin 2021-0 No 1g Commo n (Ceftriaxon (Ceftriaxon 1-03 S pirit e) e) 00:00: - CHI 00 [facility] Rocephin Rocephin 2021-0 No 1g Commo n (Ceftriaxon (Ceftriaxon 1-03 S pirit e) e) 00:00: - CHI 00 [facility] Rocephin Rocephin 2-0 No 1g Commo n (Ceftriaxon (Ceftriaxon 1-03 S pirit e) e) 00:00: - CHI 00 [facility] Rocephin Rocephin 2021-0 No 1g Commo n (Ceftriaxon (Ceftriaxon 1-03 S pirit e) e) 00:00: - CHI 00 [facility] Rocephin Rocephin 2-0 No 1g Commo n (Ceftriaxon (Ceftriaxon 1-03 S pirit e) e) 00:00: - CHI 00 [facility] Rocephin Rocephin 2-0 No 1g Commo n (Ceftriaxon (Ceftriaxon 1-03 S pirit e) e) 00:00: - CHI 00 [facility] Rocephin Rocephin 0 No 1g Commo n (Ceftriaxon (Ceftriaxon 04-06 S pirit e) e) 00:00: - CHI 00 [facility] Sulfamethox Sulfamethox 202- No 1{table BID azole-Trime azole-Trime 04-06 t} thoprim thoprim 00:00: 00:00 800-160 MG 800-160 MG 00 :00 Sulfamethox Sulfamethox 2021- No 1{table BID Sulfametho azole-Trime azole-Trime 04-06 t} xazole-Tri thoprim thoprim 00:00: 00:00 methoprim 800-160 MG 800-160 MG 00 :00 800-160 MG Sulfamethox Sulfamethox 2021- No 1{table BID Sulfametho azole-Trime azole-Trime 04-06 t} xazole-Tri thoprim thoprim 00:00: 00:00 methoprim 800-160 MG 800-160 MG 00 :00 800-160 MG sertraline 2020-04- No 25mg QD Take 25 mg [facility] (ZOLOFT) 25 05-[address] MG tablet 00:00: 00:00 daily. Hospi ta 00 :00 l sertraline 2020-04- No 25mg QD Take 25 mg [facility] (ZOLOFT) 25 05-05-[address] MG tablet 00:00: 00:00 daily. Hospi ta 00 :00 l ondansetron 2020-04 Yes [id number] 4mg Take 1 Univers (ZOFRAN 1-08 tablet by ity of ODT) 4 mg 00:00: mouth [place] disintegrat 00 every 8 Medic al ing tablet (eight) Branch hours as needed for Nausea and Vomiting (N/V). meclizine 2020-04 Yes [id number] 25mg Take 1 Un vale 25 mg 1-08 tablet by ity of tablet 00:00: mouth [place] 00 every 6 Medical (six) Branch hours. naproxen 2020-04 Yes [id number] 500mg Take 1 Un vale (NAPROSYN) 1-08 tablet by ity of 500 mg 00:00: mouth 2 [place] tablet 00 (two) Medical times Branch daily with meals. methocarbam 2020-04 Yes [id number] 500mg Take 1 Univers oL 500 mg 1-08 tablet by ity o f tablet 00:00: mouth 4 [place] 00 (four) Medical times Branch daily as needed for Pain (scale 4-6). ondansetron 2020-04 Yes [id number] 4mg Take 1 Univers (ZOFRAN 1-08 tablet by ity of ODT) 4 mg 00:00: mouth [place] disintegrat 00 every 8 Medic al ing tablet (eight) Branch hours as needed for Nausea and Vomiting (N/V). meclizine 2020-04 Yes [id number] 25mg Take 1 Un vale 25 mg 1-08 tablet by ity of tablet 00:00: mouth [place] 00 every 6 Medical (six) Branch hours. naproxen 2020-04 Yes [id number] 500mg Take 1 Un vale (NAPROSYN) 1-08 tablet by ity of 500 mg 00:00: mouth 2 [place] tablet 00 (two) Medical times Branch daily with meals. methocarbam 2020-04 Yes [id number] 500mg Take 1 Univers oL 500 mg 1-08 tablet by ity o f tablet 00:00: mouth 4 [place] 00 (four) Medical times Branch daily as needed for Pain (scale 4-6). ondansetron 2020-04 Yes [id number] 4mg Take 1 Univers (ZOFRAN 1-08 tablet by ity of ODT) 4 mg 00:00: mouth [place] disintegrat 00 every 8 Medic al ing tablet (eight) Branch hours as needed for Nausea and Vomiting (N/V). meclizine 2020-04 Yes [id number] 25mg Take 1 Un vale 25 mg 1-08 tablet by ity of tablet 00:00: mouth [place] 00 every 6 Medical (six) Branch hours. naproxen 2020-04 Yes [id number] 500mg Take 1 Un vale (NAPROSYN) 1-08 tablet by ity of 500 mg 00:00: mouth 2 [place] tablet 00 (two) Medical times Branch daily with meals. methocarbam 2020-04 Yes [id number] 500mg Take 1 Univers oL 500 mg 1-08 tablet by ity o f tablet 00:00: mouth 4 [place] 00 (four) Medical times Branch daily as needed for Pain (scale 4-6). ondansetron 2020-04 Yes [id number] 4mg Take 1 Univers (ZOFRAN 1-08 tablet by ity of ODT) 4 mg 00:00: mouth [place] disintegrat 00 every 8 Medic al ing tablet (eight) Branch hours as needed for Nausea and Vomiting (N/V). meclizine 2020-04 Yes [id number] 25mg Take 1 Un vale 25 mg 1-08 tablet by ity of tablet 00:00: mouth [place] 00 every 6 Medical (six) Branch hours. naproxen 2020-04 Yes [id number] 500mg Take 1 Un vale (NAPROSYN) 1-08 tablet by ity of 500 mg 00:00: mouth 2 [place] tablet 00 (two) Medical times Branch daily with meals. methocarbam 2020-04 Yes [id number] 500mg Take 1 Univers oL 500 mg 1-08 tablet by ity o f tablet 00:00: mouth 4 [place] 00 (four) Medical times Branch daily as needed for Pain (scale 4-6). HYDROCHLORO 2020-04 Yes 10mg Take 10 mg Univers THIAZIDE 0-26 by mouth ity of ORAL 08:48: daily. [address] pregabalin 2020-04 Yes Take by [facility] [place] ers (LYRICA 0-26 mouth ity of ORAL) 08:48: daily. [address] montelukast 2020-04 Yes 10mg Take 10 mg Univers 10 mg 0-26 by mouth ity of tablet 08:48: daily. [address] HYDROCHLORO 2020-04 Yes 10mg Take 10 mg Univers THIAZIDE 0-26 by mouth ity of ORAL 08:48: daily. [address] pregabalin 2020-04 Yes Take by Univ ers (LYRICA 0-26 mouth ity of ORAL) 08:48: daily. [address] montelukast 2020-04 Yes 10mg Take 10 mg Univers 10 mg 0-26 by mouth ity of tablet 08:48: daily. [address] HYDROCHLORO 2020-04 Yes 10mg Take 10 mg Univers THIAZIDE 0-26 by mouth ity of ORAL 08:48: daily. [address] pregabalin 2020-04 Yes Take by Univ ers (LYRICA 0-26 mouth ity of ORAL) 08:48: daily. [address] montelukast 2020-04 Yes 10mg Take 10 mg Univers 10 mg 0-26 by mouth ity of tablet 08:48: daily. [address] HYDROCHLORO 2020-04 Yes 10mg Take 10 mg Univers THIAZIDE 0-26 by mouth ity of ORAL 08:48: daily. [address] pregabalin 2020-04 Yes Take by Univ ers (LYRICA 0-26 mouth ity of ORAL) 08:48: daily. [address] montelukast 2020-04 Yes 10mg Take 10 mg Univers 10 mg 0-26 by mouth ity of tablet 08:48: daily. [address] Lyrica 75 Lyrica 75 No 1{capsu QD Lyrica 75 MG MG 9-08 le} MG 00:00: 00 Lyrica 75 Lyrica 75 2020-0 No 1{capsu QD Lyrica 75 MG MG 9-08 le} MG 00:00: 00 Lyrica 75 Lyrica 75 2020-0 No 1{capsu QD Lyrica 75 MG MG 9-08 le} MG 00:00: 00 Lyrica 75 Lyrica 75 2020-0 No 1{capsu QD Lyrica 75 MG MG 9-08 le} MG 00:00: 00 Lyrica 75 Lyrica 75 2020-0 No 1{capsu QD Lyrica 75 MG MG 9-08 le} MG 00:00: 00 Lyrica 75 Lyrica 75 2020-0 No 1{capsu QD Lyrica 75 MG MG 9-08 le} MG 00:00: 00 propranoloL 2020-0 2021- No 10mg Q.5D Take 10 mg [facility] (INDERAL) 08-09-[address] 10 MG 00:00: 00:00 (two) Hospita tablet 00 :00 times a l day. propranoloL 2020-2021- No 10mg Q.5D Take 10 mg [facility] (INDERAL) 08-09-[address] 10 MG 00:00: 00:00 (two) Hospita tablet 00 :00 times a l day. methIMAzole 2019-04 Yes 10mg Take 1 Univ ers 10 mg 2-29 tablet by ity of tablet 00:00: mouth. [address] methIMAzole 2019- Yes 10mg Take 1 Univ ers 10 mg 2-29 tablet by ity of tablet 00:00: mouth. [address] methIMAzole 2019-04 Yes 10mg Take 1 Univ ers 10 mg 2-29 tablet by ity of tablet 00:00: mouth. [place] [facility] methIMAzole 2019- Yes 10mg Take 1 Univ ers 10 mg 2-29 tablet by ity of tablet 00:00: mouth. [address] methazolAMI 2019-04 Yes 50mg Take 50 mg [facility] DE 50 MG 2-24 by mouth College TABS 19:13: daily. of 25 Medicin e Pregabalin 2019-04 Yes Take by [facility] (LYRICA OR) 2-24 mouth. Colleg e 19:13: of 10 Medicin e zolpidem 2019-04 Yes 5mg Take 5 mg [facility] (AMBIEN) 5 2-24 by mouth Colle ge MG tablet 19:13: nightly as of 10 needed for Medicin Sleep. e montelukast 2019-04 Yes 10mg Take 10 mg [facility] (SINGULAIR) 2-24 by mouth Mayra ege 10 MG 19:13: daily. of tablet 10 Medicin e propranolol 2019-04 Yes 10mg Take 10 mg [facility] (INDERAL) 2-24 by mouth Colleg e 10 MG 19:13: two times of tablet 10 daily. Medicin e methimazole 2019-0 Yes [id number] 15mg Take 1.5 [facility] (TAPAZOLE) 9-14 Tabs by Colleg e 10 MG 00:00: mouth of tablet 00 daily. Medicin e Propranolol Propranolol 2020-0 Yes Manjinder 1 tablet Common HCl HCl 9-10 [place] [facility] 00:00: - CHI 00 [facility] atenolol 2020-0 Yes 50mg Take 2 [facility] (TENORMIN) 9-09 Tabs by Colleg e 25 MG 00:00: mouth of tablet 00 daily. Medicin e Ondansetron Ondansetron 2020-0 Yes Manjinder 1 tablet Common 8-18 [place] [facility] the Spirit 00:00: tongue and - CHI 00 allow to [facility] 30 minutes Medical prior to Center meals Ondansetron Ondansetron 2019-0 No TID Ondansetro 4 MG 4 MG 8-18 n 4 MG 00:00: 00 Ondansetron Ondansetron 2020-0 No TID Ondansetro 4 MG 4 MG 8-18 n 4 MG 00:00: 00 Ondansetron Ondansetron 2020-0 No TID Ondansetro 4 MG 4 MG 8-18 n 4 MG 00:00: 00 Ondansetron Ondansetron 2020-0 No TID Ondansetro 4 MG 4 MG 8-18 n 4 MG 00:00: 00 Ondansetron Ondansetron 2020-0 No TID Ondansetro 4 MG 4 MG 8-18 n 4 MG 00:00: 00 Ondansetron Ondansetron 2020-0 No TID Ondansetro 4 MG 4 MG 8-18 n 4 MG 00:00: 00 Ondansetron Ondansetron 2020-0 No TID Ondansetro 4 MG 4 MG 8-18 n 4 MG 00:00: 00 Ondansetron Ondansetron 2020-0 No TID Ondansetro 4 MG 4 MG 8-18 n 4 MG 00:00: 00 Ondansetron Ondansetron 2020-0 No TID 4 MG 4 MG 8-18 00:00: 00 Ondansetron Ondansetron 2020-0 No TID Ondansetro 4 MG 4 MG 8-18 n 4 MG 00:00: 00 Ondansetron Ondansetron 2020-0 No TID Ondansetro 4 MG 4 MG 8-18 n 4 MG 00:00: 00 Ondansetron Ondansetron 2020-0 No TID Ondansetro 4 MG 4 MG 8-18 n 4 MG 00:00: 00 Ondansetron Ondansetron 2020-0 No TID Ondansetro 4 MG 4 MG 8-18 n 4 MG 00:00: 00 Ondansetron Ondansetron 2020-0 No TID Ondansetro 4 MG 4 MG 8-18 n 4 MG 00:00: 00 Ondansetron Ondansetron 2020-0 No TID Ondansetro 4 MG 4 MG 8-18 n 4 MG 00:00: 00 Ondansetron Ondansetron 2020-0 No TID Ondansetro 4 MG 4 MG 8-18 n 4 MG 00:00: 00 Ondansetron Ondansetron 2020-0 No TID Ondansetro 4 MG 4 MG 8-18 n 4 MG 00:00: 00 Ondansetron Ondansetron 2020-0 No TID Ondansetro 4 MG 4 MG 8-18 n 4 MG 00:00: 00 Ondansetron Ondansetron 2020-0 No TID Ondansetro 4 MG 4 MG 8-18 n 4 MG 00:00: 00 Ondansetron Ondansetron 2020-0 No TID Ondansetro 4 MG 4 MG 8-18 n 4 MG 00:00: 00 Ondansetron Ondansetron 2020-0 No TID Ondansetro 4 MG 4 MG 8-18 n 4 MG 00:00: 00 Ondansetron Ondansetron 2020-0 No TID Ondansetro 4 MG 4 MG 8-18 n 4 MG 00:00: 00 Ondansetron Ondansetron 2020-0 No TID Ondansetro 4 MG 4 MG 8-18 n 4 MG 00:00: 00 Ondansetron Ondansetron 2020-0 No TID Ondansetro 4 MG 4 MG 8-18 n 4 MG 00:00: 00 Ondansetron Ondansetron 2020-0 No TID Ondansetro 4 MG 4 MG 8-18 n 4 MG 00:00: 00 Ondansetron Ondansetron 2020-0 No TID Ondansetro 4 MG 4 MG 8-18 n 4 MG 00:00: 00 Ondansetron Ondansetron 2020-0 No TID Ondansetro 4 MG 4 MG 8-18 n 4 MG 00:00: 00 Ondansetron Ondansetron 2020-0 No TID Ondansetro 4 MG 4 MG 8-18 n 4 MG 00:00: 00 pregabalin 2020-0 Yes 75mg QD Take 75 mg [facility] ([facility]RICA) 75 6-[address] MG capsule 00:00: daily. [facility] 00 [facility] pregabalin 2020-0 Yes 75mg QD Take 75 mg [facility] (LYRICA) 75 6-[address] MG capsule 00:00: daily. [facility]pi [facility] 00 l montelukast 2019-0 Yes 10mg QD Take 10 mg [facility] ([facility]) 4-[address] 10 mg 00:00: daily. [facility] tablet 00 l montelukast 2019-0 Yes 10mg QD Take 10 mg [facility] ([facility]) 4-[address] 10 mg 00:00: daily. [facility] tablet 00 l SUMAtriptan 0 Yes 50mg Take 50 mg [facility] (IMITREX) 08-[address] 50 MG 00:00: once as [facility] tablet 00 needed for l migraine. May repeat in 2 hours if unresolved . Do not exceed 200 mg in 24 hours. SUMAtriptan Yes 50mg Take 50 mg [facility] (IMITREX) 08-[address] 50 MG 00:00: once as [facility] tablet 00 needed for l migraine. May repeat in 2 hours if unresolved . Do not exceed 200 mg in 24 hours. methIMAzole methIMAzole No 1{table QD methIMAzol 10 MG 10 MG t} e 10 MG Propranolol Propranolol No BID Propranolo HCl 10 MG HCl 10 MG l HCl 10 MG Zoloft 50 Zoloft 50 No 1{table QD Zoloft 50 MG MG t} MG Phentermine Phentermine No 1{capsu QD Phentermin HCl 30 MG HCl 30 MG le} e HCl 30 MG hydroCHLORO hydroCHLORO No 1{table QD hydroCHLOR thiazide 25 thiazide 25 t_in_th Othiazide MG MG e_morni 25 MG ng} Montelukast Montelukast No 1{table QD Montelukas Sodium 10 Sodium 10 t} t Sodium MG MG 10 MG Propranolol Propranolol No 1{table BID Propranolo HCl 10 MG HCl 10 MG t} l HCl 10 MG SUMAtriptan SUMAtriptan No SUMAtripta Succinate Succinate n 50 MG 50 MG Succinate 50 MG hydroCHLORO hydroCHLORO No hydroCHLOR thiazide 25 thiazide 25 Othiazide MG MG 25 MG Zoloft 100 Zoloft 100 No 1{table QD Zoloft 100 MG MG t} MG Zoloft 100 Zoloft 100 No QD Zoloft 100 MG MG MG Montelukast Montelukast No Montelukas Sodium 10 Sodium 10 t Sodium MG MG 10 MG SUMAtriptan SUMAtriptan No 1{table QD SUMAtripta Succinate Succinate t_as_ne n 50 MG 50 MG eded} Succinate 50 MG methIMAzole methIMAzole No 1{table QD methIMAzol 10 MG 10 MG t} e 10 MG Propranolol Propranolol No BID Propranolo HCl 10 MG HCl 10 MG l HCl 10 MG Zoloft 50 Zoloft 50 No 1{table QD Zoloft 50 MG MG t} MG Phentermine Phentermine No 1{capsu QD Phentermin HCl 30 MG HCl 30 MG le} e HCl 30 MG hydroCHLORO hydroCHLORO No 1{table QD hydroCHLOR thiazide 25 thiazide 25 t_in_th Othiazide MG MG e_morni 25 MG ng} Montelukast Montelukast No 1{table QD Montelukas Sodium 10 Sodium 10 t} t Sodium MG MG 10 MG Propranolol Propranolol No 1{table BID Propranolo HCl 10 MG HCl 10 MG t} l HCl 10 MG SUMAtriptan SUMAtriptan No SUMAtripta Succinate Succinate n 50 MG 50 MG Succinate 50 MG hydroCHLORO hydroCHLORO No hydroCHLOR thiazide 25 thiazide 25 Othiazide MG MG 25 MG Zoloft 100 Zoloft 100 No 1{table QD Zoloft 100 MG MG t} MG Zoloft 100 Zoloft 100 No QD Zoloft 100 MG MG MG Montelukast Montelukast No Montelukas Sodium 10 Sodium 10 t Sodium MG MG 10 MG SUMAtriptan SUMAtriptan No 1{table QD SUMAtripta Succinate Succinate t_as_ne n 50 MG 50 MG eded} Succinate 50 MG methIMAzole methIMAzole No 1{table QD methIMAzol 10 MG 10 MG t} e 10 MG Propranolol Propranolol No BID Propranolo HCl 10 MG HCl 10 MG l HCl 10 MG Zoloft 50 Zoloft 50 No 1{table QD Zoloft 50 MG MG t} MG Phentermine Phentermine No 1{capsu QD Phentermin HCl 30 MG HCl 30 MG le} e HCl 30 MG hydroCHLORO hydroCHLORO No 1{table QD hydroCHLOR thiazide 25 thiazide 25 t_in_th Othiazide MG MG e_morni 25 MG ng} Montelukast Montelukast No 1{table QD Montelukas Sodium 10 Sodium 10 t} t Sodium MG MG 10 MG Propranolol Propranolol No 1{table BID Propranolo HCl 10 MG HCl 10 MG t} l HCl 10 MG SUMAtriptan SUMAtriptan No SUMAtripta Succinate Succinate n 50 MG 50 MG Succinate 50 MG hydroCHLORO hydroCHLORO No hydroCHLOR thiazide 25 thiazide 25 Othiazide MG MG 25 MG Zoloft 100 Zoloft 100 No 1{table QD Zoloft 100 MG MG t} MG Zoloft 100 Zoloft 100 No QD Zoloft 100 MG MG MG Montelukast Montelukast No Montelukas Sodium 10 Sodium 10 t Sodium MG MG 10 MG SUMAtriptan SUMAtriptan No 1{table QD SUMAtripta Succinate Succinate t_as_ne n 50 MG 50 MG eded} Succinate 50 MG methIMAzole methIMAzole No 1{table QD methIMAzol 10 MG 10 MG t} e 10 MG Propranolol Propranolol No BID Propranolo HCl 10 MG HCl 10 MG l HCl 10 MG Zoloft 50 Zoloft 50 No 1{table QD Zoloft 50 MG MG t} MG Phentermine Phentermine No 1{capsu QD Phentermin HCl 30 MG HCl 30 MG le} e HCl 30 MG hydroCHLORO hydroCHLORO No 1{table QD hydroCHLOR thiazide 25 thiazide 25 t_in_th Othiazide MG MG e_morni 25 MG ng} Montelukast Montelukast No 1{table QD Montelukas Sodium 10 Sodium 10 t} t Sodium MG MG 10 MG Propranolol Propranolol No 1{table BID Propranolo HCl 10 MG HCl 10 MG t} l HCl 10 MG SUMAtriptan SUMAtriptan No SUMAtripta Succinate Succinate n 50 MG 50 MG Succinate 50 MG hydroCHLORO hydroCHLORO No hydroCHLOR thiazide 25 thiazide 25 Othiazide MG MG 25 MG Zoloft 100 Zoloft 100 No 1{table QD Zoloft 100 MG MG t} MG Zoloft 100 Zoloft 100 No QD Zoloft 100 MG MG MG Montelukast Montelukast No Montelukas Sodium 10 Sodium 10 t Sodium MG MG 10 MG SUMAtriptan SUMAtriptan No 1{table QD SUMAtripta Succinate Succinate t_as_ne n 50 MG 50 MG eded} Succinate 50 MG methIMAzole methIMAzole No 1{table QD methIMAzol 10 MG 10 MG t} e 10 MG Propranolol Propranolol No BID Propranolo HCl 10 MG HCl 10 MG l HCl 10 MG Zoloft 50 Zoloft 50 No 1{table QD Zoloft 50 MG MG t} MG Phentermine Phentermine No 1{capsu QD Phentermin HCl 30 MG HCl 30 MG le} e HCl 30 MG hydroCHLORO hydroCHLORO No 1{table QD hydroCHLOR thiazide 25 thiazide 25 t_in_th Othiazide MG MG e_morni 25 MG ng} Montelukast Montelukast No 1{table QD Montelukas Sodium 10 Sodium 10 t} t Sodium MG MG 10 MG Propranolol Propranolol No 1{table BID Propranolo HCl 10 MG HCl 10 MG t} l HCl 10 MG SUMAtriptan SUMAtriptan No SUMAtripta Succinate Succinate n 50 MG 50 MG Succinate 50 MG hydroCHLORO hydroCHLORO No hydroCHLOR thiazide 25 thiazide 25 Othiazide MG MG 25 MG Zoloft 100 Zoloft 100 No 1{table QD Zoloft 100 MG MG t} MG Zoloft 100 Zoloft 100 No QD Zoloft 100 MG MG MG Montelukast Montelukast No Montelukas Sodium 10 Sodium 10 t Sodium MG MG 10 MG SUMAtriptan SUMAtriptan No 1{table QD SUMAtripta Succinate Succinate t_as_ne n 50 MG 50 MG eded} Succinate 50 MG methIMAzole methIMAzole No 1{table QD methIMAzol 10 MG 10 MG t} e 10 MG Propranolol Propranolol No BID Propranolo HCl 10 MG HCl 10 MG l HCl 10 MG Zoloft 50 Zoloft 50 No 1{table QD MG MG t} methIMAzole methIMAzole No 10 MG 10 MG Phentermine Phentermine No 1{capsu QD HCl 30 MG HCl 30 MG le} Zoloft 100 Zoloft 100 No 1{table QD MG MG t} Propranolol Propranolol No HCl 10 MG HCl 10 MG Sertraline Sertraline No HCl 100 MG HCl 100 MG Montelukast Montelukast No Sodium 10 Sodium 10 MG MG Propranolol Propranolol No 1{table BID HCl 10 MG HCl 10 MG t} SUMAtriptan SUMAtriptan No Succinate Succinate 50 MG 50 MG Zoloft 100 Zoloft 100 No QD MG MG Lyrica 75 Lyrica 75 No 1{capsu QD MG MG le} Montelukast Montelukast No 1{table QD Sodium 10 Sodium 10 t} MG MG hydroCHLORO hydroCHLORO No thiazide 25 thiazide 25 MG MG Sertraline Sertraline No Sertraline HCl 100 MG HCl 100 MG HCl 100 MG Phentermine Phentermine No 1{capsu QD Phentermin HCl 30 MG HCl 30 MG le} e HCl 30 MG Zoloft 100 Zoloft 100 No 1{table QD Zoloft 100 MG MG t} MG Propranolol Propranolol No Propranolo HCl 10 MG HCl 10 MG l HCl 10 MG SUMAtriptan SUMAtriptan No SUMAtripta Succinate Succinate n 50 MG 50 MG Succinate 50 MG Propranolol Propranolol No 1{table BID Propranolo HCl 10 MG HCl 10 MG t} l HCl 10 MG Montelukast Montelukast No Montelukas Sodium 10 Sodium 10 t Sodium MG MG 10 MG methIMAzole methIMAzole No methIMAzol 10 MG 10 MG e 10 MG hydroCHLORO hydroCHLORO No hydroCHLOR thiazide 25 thiazide 25 Othiazide MG MG 25 MG Lyrica 75 Lyrica 75 No 1{capsu QD Lyrica 75 MG MG le} MG Zoloft 100 Zoloft 100 No QD Zoloft 100 MG MG MG Zoloft 50 Zoloft 50 No 1{table QD Zoloft 50 MG MG t} MG Sertraline Sertraline No Sertraline HCl 100 MG HCl 100 MG HCl 100 MG Phentermine Phentermine No 1{capsu QD Phentermin HCl 30 MG HCl 30 MG le} e HCl 30 MG Zoloft 100 Zoloft 100 No 1{table QD Zoloft 100 MG MG t} MG Propranolol Propranolol No Propranolo HCl 10 MG HCl 10 MG l HCl 10 MG SUMAtriptan SUMAtriptan No SUMAtripta Succinate Succinate n 50 MG 50 MG Succinate 50 MG Propranolol Propranolol No 1{table BID Propranolo HCl 10 MG HCl 10 MG t} l HCl 10 MG Montelukast Montelukast No Montelukas Sodium 10 Sodium 10 t Sodium MG MG 10 MG methIMAzole methIMAzole No methIMAzol 10 MG 10 MG e 10 MG hydroCHLORO hydroCHLORO No hydroCHLOR thiazide 25 thiazide 25 Othiazide MG MG 25 MG Lyrica 75 Lyrica 75 No 1{capsu QD Lyrica 75 MG MG le} MG Zoloft 100 Zoloft 100 No QD Zoloft 100 MG MG MG Zoloft 50 Zoloft 50 No 1{table QD Zoloft 50 MG MG t} MG SUMAtriptan SUMAtriptan No SUMAtripta Succinate Succinate n 50 MG 50 MG Succinate 50 MG Zoloft 100 Zoloft 100 No QD Zoloft 100 MG MG MG Zoloft 100 Zoloft 100 No 1{table QD Zoloft 100 MG MG t} MG Propranolol Propranolol No 1{table BID Propranolo HCl 10 MG HCl 10 MG t} l HCl 10 MG Phentermine Phentermine No 1{capsu QD Phentermin HCl 30 MG HCl 30 MG le} e HCl 30 MG Montelukast Montelukast No Montelukas Sodium 10 Sodium 10 t Sodium MG MG 10 MG hydroCHLORO hydroCHLORO No hydroCHLOR thiazide 25 thiazide 25 Othiazide MG MG 25 MG methIMAzole methIMAzole No methIMAzol 10 MG 10 MG e 10 MG Zoloft 50 Zoloft 50 No 1{table QD Zoloft 50 MG MG t} MG Propranolol Propranolol No Propranolo HCl 10 MG HCl 10 MG l HCl 10 MG Sertraline Sertraline No Sertraline HCl 100 MG HCl 100 MG HCl 100 MG SUMAtriptan SUMAtriptan No SUMAtripta Succinate Succinate n 50 MG 50 MG Succinate 50 MG Zoloft 100 Zoloft 100 No QD Zoloft 100 MG MG MG Zoloft 100 Zoloft 100 No 1{table QD Zoloft 100 MG MG t} MG Propranolol Propranolol No 1{table BID Propranolo HCl 10 MG HCl 10 MG t} l HCl 10 MG Phentermine Phentermine No 1{capsu QD Phentermin HCl 30 MG HCl 30 MG le} e HCl 30 MG Montelukast Montelukast No Montelukas Sodium 10 Sodium 10 t Sodium MG MG 10 MG hydroCHLORO hydroCHLORO No hydroCHLOR thiazide 25 thiazide 25 Othiazide MG MG 25 MG methIMAzole methIMAzole No methIMAzol 10 MG 10 MG e 10 MG Zoloft 50 Zoloft 50 No 1{table QD Zoloft 50 MG MG t} MG Propranolol Propranolol No Propranolo HCl 10 MG HCl 10 MG l HCl 10 MG Sertraline Sertraline No Sertraline HCl 100 MG HCl 100 MG HCl 100 MG Propranolol Propranolol No Propranolo HCl 10 MG HCl 10 MG l HCl 10 MG hydroCHLORO hydroCHLORO No 1{table QD hydroCHLOR thiazide 25 thiazide 25 t_in_th Othiazide MG MG e_morni 25 MG ng} SUMAtriptan SUMAtriptan No SUMAtripta Succinate Succinate n 50 MG 50 MG Succinate 50 MG Montelukast Montelukast No 1{table QD Montelukas Sodium 10 Sodium 10 t} t Sodium MG MG 10 MG SUMAtriptan SUMAtriptan No 1{table QD SUMAtripta Succinate Succinate t_as_ne n 50 MG 50 MG eded} Succinate 50 MG Propranolol Propranolol No 1{table BID Propranolo HCl 10 MG HCl 10 MG t} l HCl 10 MG Zoloft 100 Zoloft 100 No 1{table QD Zoloft 100 MG MG t} MG Sertraline Sertraline No Sertraline HCl 100 MG HCl 100 MG HCl 100 MG hydroCHLORO hydroCHLORO No hydroCHLOR thiazide 25 thiazide 25 Othiazide MG MG 25 MG Phentermine Phentermine No 1{capsu QD Phentermin HCl 30 MG HCl 30 MG le} e HCl 30 MG Montelukast Montelukast No Montelukas Sodium 10 Sodium 10 t Sodium MG MG 10 MG methIMAzole methIMAzole No methIMAzol 10 MG 10 MG e 10 MG Propranolol Propranolol No Propranolo HCl 10 MG HCl 10 MG l HCl 10 MG Sertraline Sertraline No Sertraline HCl 100 MG HCl 100 MG HCl 100 MG Montelukast Montelukast No 1{table QD Montelukas Sodium 10 Sodium 10 t} t Sodium MG MG 10 MG SUMAtriptan SUMAtriptan No 1{table QD SUMAtripta Succinate Succinate t_as_ne n 50 MG 50 MG eded} Succinate 50 MG Propranolol Propranolol No 1{table BID Propranolo HCl 10 MG HCl 10 MG t} l HCl 10 MG Montelukast Montelukast No Montelukas Sodium 10 Sodium 10 t Sodium MG MG 10 MG Zoloft 100 Zoloft 100 No 1{table QD Zoloft 100 MG MG t} MG hydroCHLORO hydroCHLORO No hydroCHLOR thiazide 25 thiazide 25 Othiazide MG MG 25 MG SUMAtriptan SUMAtriptan No SUMAtripta Succinate Succinate n 50 MG 50 MG Succinate 50 MG methIMAzole methIMAzole No methIMAzol 10 MG 10 MG e 10 MG Phentermine Phentermine No 1{capsu QD Phentermin HCl 30 MG HCl 30 MG le} e HCl 30 MG hydroCHLORO hydroCHLORO No 1{table QD hydroCHLOR thiazide 25 thiazide 25 t_in_th Othiazide MG MG e_morni 25 MG ng} Propranolol Propranolol No Propranolo HCl 10 MG HCl 10 MG l HCl 10 MG Sertraline Sertraline No Sertraline HCl 100 MG HCl 100 MG HCl 100 MG Montelukast Montelukast No 1{table QD Montelukas Sodium 10 Sodium 10 t} t Sodium MG MG 10 MG SUMAtriptan SUMAtriptan No 1{table QD SUMAtripta Succinate Succinate t_as_ne n 50 MG 50 MG eded} Succinate 50 MG Propranolol Propranolol No 1{table BID Propranolo HCl 10 MG HCl 10 MG t} l HCl 10 MG Montelukast Montelukast No Montelukas Sodium 10 Sodium 10 t Sodium MG MG 10 MG Zoloft 100 Zoloft 100 No 1{table QD Zoloft 100 MG MG t} MG hydroCHLORO hydroCHLORO No hydroCHLOR thiazide 25 thiazide 25 Othiazide MG MG 25 MG SUMAtriptan SUMAtriptan No SUMAtripta Succinate Succinate n 50 MG 50 MG Succinate 50 MG methIMAzole methIMAzole No methIMAzol 10 MG 10 MG e 10 MG Phentermine Phentermine No 1{capsu QD Phentermin HCl 30 MG HCl 30 MG le} e HCl 30 MG hydroCHLORO hydroCHLORO No 1{table QD hydroCHLOR thiazide 25 thiazide 25 t_in_th Othiazide MG MG e_morni 25 MG ng} Propranolol Propranolol No Propranolo HCl 10 MG HCl 10 MG l HCl 10 MG Sertraline Sertraline No Sertraline HCl 100 MG HCl 100 MG HCl 100 MG Montelukast Montelukast No 1{table QD Montelukas Sodium 10 Sodium 10 t} t Sodium MG MG 10 MG SUMAtriptan SUMAtriptan No 1{table QD SUMAtripta Succinate Succinate t_as_ne n 50 MG 50 MG eded} Succinate 50 MG Propranolol Propranolol No 1{table BID Propranolo HCl 10 MG HCl 10 MG t} l HCl 10 MG Montelukast Montelukast No Montelukas Sodium 10 Sodium 10 t Sodium MG MG 10 MG Zoloft 100 Zoloft 100 No 1{table QD Zoloft 100 MG MG t} MG hydroCHLORO hydroCHLORO No hydroCHLOR thiazide 25 thiazide 25 Othiazide MG MG 25 MG SUMAtriptan SUMAtriptan No SUMAtripta Succinate Succinate n 50 MG 50 MG Succinate 50 MG methIMAzole methIMAzole No methIMAzol 10 MG 10 MG e 10 MG Phentermine Phentermine No 1{capsu QD Phentermin HCl 30 MG HCl 30 MG le} e HCl 30 MG hydroCHLORO hydroCHLORO No 1{table QD hydroCHLOR thiazide 25 thiazide 25 t_in_th Othiazide MG MG e_morni 25 MG ng} Propranolol Propranolol No Propranolo HCl 10 MG HCl 10 MG l HCl 10 MG Sertraline Sertraline No Sertraline HCl 100 MG HCl 100 MG HCl 100 MG Montelukast Montelukast No 1{table QD Montelukas Sodium 10 Sodium 10 t} t Sodium MG MG 10 MG SUMAtriptan SUMAtriptan No 1{table QD SUMAtripta Succinate Succinate t_as_ne n 50 MG 50 MG eded} Succinate 50 MG Propranolol Propranolol No 1{table BID Propranolo HCl 10 MG HCl 10 MG t} l HCl 10 MG Montelukast Montelukast No Montelukas Sodium 10 Sodium 10 t Sodium MG MG 10 MG Zoloft 100 Zoloft 100 No 1{table QD Zoloft 100 MG MG t} MG hydroCHLORO hydroCHLORO No hydroCHLOR thiazide 25 thiazide 25 Othiazide MG MG 25 MG SUMAtriptan SUMAtriptan No SUMAtripta Succinate Succinate n 50 MG 50 MG Succinate 50 MG methIMAzole methIMAzole No methIMAzol 10 MG 10 MG e 10 MG Phentermine Phentermine No 1{capsu QD Phentermin HCl 30 MG HCl 30 MG le} e HCl 30 MG hydroCHLORO hydroCHLORO No 1{table QD hydroCHLOR thiazide 25 thiazide 25 t_in_th Othiazide MG MG e_morni 25 MG ng} Propranolol Propranolol No Propranolo HCl 10 MG HCl 10 MG l HCl 10 MG Sertraline Sertraline No Sertraline HCl 100 MG HCl 100 MG HCl 100 MG Montelukast Montelukast No 1{table QD Montelukas Sodium 10 Sodium 10 t} t Sodium MG MG 10 MG SUMAtriptan SUMAtriptan No 1{table QD SUMAtripta Succinate Succinate t_as_ne n 50 MG 50 MG eded} Succinate 50 MG Propranolol Propranolol No 1{table BID Propranolo HCl 10 MG HCl 10 MG t} l HCl 10 MG Montelukast Montelukast No Montelukas Sodium 10 Sodium 10 t Sodium MG MG 10 MG Zoloft 100 Zoloft 100 No 1{table QD Zoloft 100 MG MG t} MG hydroCHLORO hydroCHLORO No hydroCHLOR thiazide 25 thiazide 25 Othiazide MG MG 25 MG SUMAtriptan SUMAtriptan No SUMAtripta Succinate Succinate n 50 MG 50 MG Succinate 50 MG methIMAzole methIMAzole No methIMAzol 10 MG 10 MG e 10 MG Phentermine Phentermine No 1{capsu QD Phentermin HCl 30 MG HCl 30 MG le} e HCl 30 MG hydroCHLORO hydroCHLORO No 1{table QD hydroCHLOR thiazide 25 thiazide 25 t_in_th Othiazide MG MG e_morni 25 MG ng} Propranolol Propranolol No Propranolo HCl 10 MG HCl 10 MG l HCl 10 MG Sertraline Sertraline No Sertraline HCl 100 MG HCl 100 MG HCl 100 MG Montelukast Montelukast No 1{table QD Montelukas Sodium 10 Sodium 10 t} t Sodium MG MG 10 MG SUMAtriptan SUMAtriptan No 1{table QD SUMAtripta Succinate Succinate t_as_ne n 50 MG 50 MG eded} Succinate 50 MG Propranolol Propranolol No 1{table BID Propranolo HCl 10 MG HCl 10 MG t} l HCl 10 MG Montelukast Montelukast No Montelukas Sodium 10 Sodium 10 t Sodium MG MG 10 MG Zoloft 100 Zoloft 100 No 1{table QD Zoloft 100 MG MG t} MG hydroCHLORO hydroCHLORO No hydroCHLOR thiazide 25 thiazide 25 Othiazide MG MG 25 MG SUMAtriptan SUMAtriptan No SUMAtripta Succinate Succinate n 50 MG 50 MG Succinate 50 MG methIMAzole methIMAzole No methIMAzol 10 MG 10 MG e 10 MG Phentermine Phentermine No 1{capsu QD Phentermin HCl 30 MG HCl 30 MG le} e HCl 30 MG hydroCHLORO hydroCHLORO No 1{table QD hydroCHLOR thiazide 25 thiazide 25 t_in_th Othiazide MG MG e_morni 25 MG ng} Propranolol Propranolol No Propranolo HCl 10 MG HCl 10 MG l HCl 10 MG Sertraline Sertraline No Sertraline HCl 100 MG HCl 100 MG HCl 100 MG Montelukast Montelukast No 1{table QD Montelukas Sodium 10 Sodium 10 t} t Sodium MG MG 10 MG SUMAtriptan SUMAtriptan No 1{table QD SUMAtripta Succinate Succinate t_as_ne n 50 MG 50 MG eded} Succinate 50 MG Propranolol Propranolol No 1{table BID Propranolo HCl 10 MG HCl 10 MG t} l HCl 10 MG Montelukast Montelukast No Montelukas Sodium 10 Sodium 10 t Sodium MG MG 10 MG Zoloft 100 Zoloft 100 No 1{table QD Zoloft 100 MG MG t} MG hydroCHLORO hydroCHLORO No hydroCHLOR thiazide 25 thiazide 25 Othiazide MG MG 25 MG SUMAtriptan SUMAtriptan No SUMAtripta Succinate Succinate n 50 MG 50 MG Succinate 50 MG methIMAzole methIMAzole No methIMAzol 10 MG 10 MG e 10 MG Phentermine Phentermine No 1{capsu QD Phentermin HCl 30 MG HCl 30 MG le} e HCl 30 MG hydroCHLORO hydroCHLORO No 1{table QD hydroCHLOR thiazide 25 thiazide 25 t_in_th Othiazide MG MG e_morni 25 MG ng} Propranolol Propranolol No Propranolo HCl 10 MG HCl 10 MG l HCl 10 MG Sertraline Sertraline No Sertraline HCl 100 MG HCl 100 MG HCl 100 MG Montelukast Montelukast No 1{table QD Montelukas Sodium 10 Sodium 10 t} t Sodium MG MG 10 MG SUMAtriptan SUMAtriptan No 1{table QD SUMAtripta Succinate Succinate t_as_ne n 50 MG 50 MG eded} Succinate 50 MG Propranolol Propranolol No 1{table BID Propranolo HCl 10 MG HCl 10 MG t} l HCl 10 MG Montelukast Montelukast No Montelukas Sodium 10 Sodium 10 t Sodium MG MG 10 MG Zoloft 100 Zoloft 100 No 1{table QD Zoloft 100 MG MG t} MG hydroCHLORO hydroCHLORO No hydroCHLOR thiazide 25 thiazide 25 Othiazide MG MG 25 MG SUMAtriptan SUMAtriptan No SUMAtripta Succinate Succinate n 50 MG 50 MG Succinate 50 MG methIMAzole methIMAzole No methIMAzol 10 MG 10 MG e 10 MG Phentermine Phentermine No 1{capsu QD Phentermin HCl 30 MG HCl 30 MG le} e HCl 30 MG hydroCHLORO hydroCHLORO No 1{table QD hydroCHLOR thiazide 25 thiazide 25 t_in_th Othiazide MG MG e_morni 25 MG ng} Propranolol Propranolol No Propranolo HCl 10 MG HCl 10 MG l HCl 10 MG Sertraline Sertraline No Sertraline HCl 100 MG HCl 100 MG HCl 100 MG Montelukast Montelukast No 1{table QD Montelukas Sodium 10 Sodium 10 t} t Sodium MG MG 10 MG SUMAtriptan SUMAtriptan No 1{table QD SUMAtripta Succinate Succinate t_as_ne n 50 MG 50 MG eded} Succinate 50 MG Propranolol Propranolol No 1{table BID Propranolo HCl 10 MG HCl 10 MG t} l HCl 10 MG Montelukast Montelukast No Montelukas Sodium 10 Sodium 10 t Sodium MG MG 10 MG Zoloft 100 Zoloft 100 No 1{table QD Zoloft 100 MG MG t} MG hydroCHLORO hydroCHLORO No hydroCHLOR thiazide 25 thiazide 25 Othiazide MG MG 25 MG SUMAtriptan SUMAtriptan No SUMAtripta Succinate Succinate n 50 MG 50 MG Succinate 50 MG methIMAzole methIMAzole No methIMAzol 10 MG 10 MG e 10 MG Phentermine Phentermine No 1{capsu QD Phentermin HCl 30 MG HCl 30 MG le} e HCl 30 MG hydroCHLORO hydroCHLORO No 1{table QD hydroCHLOR thiazide 25 thiazide 25 t_in_th Othiazide MG MG e_morni 25 MG ng} Propranolol Propranolol No Propranolo HCl 10 MG HCl 10 MG l HCl 10 MG Sertraline Sertraline No Sertraline HCl 100 MG HCl 100 MG HCl 100 MG Montelukast Montelukast No 1{table QD Montelukas Sodium 10 Sodium 10 t} t Sodium MG MG 10 MG SUMAtriptan SUMAtriptan No 1{table QD SUMAtripta Succinate Succinate t_as_ne n 50 MG 50 MG eded} Succinate 50 MG Propranolol Propranolol No 1{table BID Propranolo HCl 10 MG HCl 10 MG t} l HCl 10 MG Montelukast Montelukast No Montelukas Sodium 10 Sodium 10 t Sodium MG MG 10 MG Zoloft 100 Zoloft 100 No 1{table QD Zoloft 100 MG MG t} MG hydroCHLORO hydroCHLORO No hydroCHLOR thiazide 25 thiazide 25 Othiazide MG MG 25 MG SUMAtriptan SUMAtriptan No SUMAtripta Succinate Succinate n 50 MG 50 MG Succinate 50 MG methIMAzole methIMAzole No methIMAzol 10 MG 10 MG e 10 MG Phentermine Phentermine No 1{capsu QD Phentermin HCl 30 MG HCl 30 MG le} e HCl 30 MG hydroCHLORO hydroCHLORO No 1{table QD hydroCHLOR thiazide 25 thiazide 25 t_in_th Othiazide MG MG e_morni 25 MG ng} methIMAzole methIMAzole No methIMAzol 10 MG 10 MG e 10 MG hydroCHLORO hydroCHLORO No 1{table QD hydroCHLOR thiazide 25 thiazide 25 t_in_th Othiazide MG MG e_morni 25 MG ng} levETIRAcet levETIRAcet No 1{table BID levETIRAce am 500 MG am 500 MG t} howe 500 MG Montelukast Montelukast No 1{table QD Montelukas Sodium 10 Sodium 10 t} t Sodium MG MG 10 MG Phentermine Phentermine No 1{capsu QD Phentermin HCl 30 MG HCl 30 MG le} e HCl 30 MG Ly[place] 75 [place] 75 No 1{capsu QD Ly[place] 75 MG MG le} MG SUMAtriptan SUMAtriptan No 1{table QD SUMAtripta Succinate Succinate t_as_ne n 50 MG 50 MG eded} Succinate 50 MG Zoloft 100 Zoloft 100 No 1{table QD Zoloft 100 MG MG t} MG methIMAzole methIMAzole No methIMAzol 10 MG 10 MG e 10 MG hydroCHLORO hydroCHLORO No 1{table QD hydroCHLOR thiazide 25 thiazide 25 t_in_th Othiazide MG MG e_morni 25 MG ng} levETIRAcet levETIRAcet No 1{table BID levETIRAce am 500 MG am 500 MG t} howe 500 MG SUMAtriptan SUMAtriptan No SUMAtripta Succinate Succinate n 50 MG 50 MG Succinate 50 MG Phentermine Phentermine No 1{capsu QD Phentermin HCl 30 MG HCl 30 MG le} e HCl 30 MG [place] 75 [place] 75 No 1{capsu QD [place] 75 MG MG le} MG Montelukast Montelukast No 1{table QD Montelukas Sodium 10 Sodium 10 t} t Sodium MG MG 10 MG Zoloft 100 Zoloft 100 No 1{table QD Zoloft 100 MG MG t} MG Montelukast Montelukast No 1{table QD Montelukas Sodium 10 Sodium 10 t} t Sodium MG MG 10 MG Zoloft 100 Zoloft 100 No 1{table QD Zoloft 100 MG MG t} MG levETIRAcet levETIRAcet No 1{table BID levETIRAce am 500 MG am 500 MG t} howe 500 MG Phentermine Phentermine No 1{capsu QD Phentermin HCl 30 MG HCl 30 MG le} e HCl 30 MG [place] 75 [place] 75 No 1{capsu QD [place] 75 MG MG le} MG SUMAtriptan SUMAtriptan No SUMAtripta Succinate Succinate n 50 MG 50 MG Succinate 50 MG methIMAzole methIMAzole No methIMAzol 10 MG 10 MG e 10 MG hydroCHLORO hydroCHLORO No 1{table QD hydroCHLOR thiazide 25 thiazide 25 t_in_th Othiazide MG MG e_morni 25 MG ng} methIMAzole methIMAzole No methIMAzol 10 MG 10 MG e 10 MG Phentermine Phentermine No 1{capsu QD Phentermin HCl 30 MG HCl 30 MG le} e HCl 30 MG levETIRAcet levETIRAcet No 1{table BID levETIRAce am 500 MG am 500 MG t} howe 500 MG Montelukast Montelukast No 1{table QD Montelukas Sodium 10 Sodium 10 t} t Sodium MG MG 10 MG Lyrica 75 Lyrica 75 No 1{capsu QD Lyrica 75 MG MG le} MG Zoloft 100 Zoloft 100 No 1{table QD Zoloft 100 MG MG t} MG SUMAtriptan SUMAtriptan No SUMAtripta Succinate Succinate n 50 MG 50 MG Succinate 50 MG hydroCHLORO hydroCHLORO No 1{table QD hydroCHLOR thiazide 25 thiazide 25 t_in_th Othiazide MG MG e_morni 25 MG ng} Ambien Ambien Yes Manjinder 1 tablet Commo n [place] at bedtime [facility] as needed [facility] Sumatriptan Sumatriptan Yes Manjinder 1 tablet Common Succinate Succinate [place] as needed [facility] Methimazole Methimazole Yes Manjinder 3 tablet Common [place] [facility] Montelukast Montelukast Yes Manjinder 1 tablet Common Sodium Sodium [place] [facility] Lyrica Lyrica Yes Manjinder 1 capsule Comm on [place] [facility] Hydrochloro Hydrochloro Yes Manjinder 1 tablet Common thiazide thiazide [place] in the Spir it morning [facility] SUMAtriptan SUMAtriptan No SUMAtripta Succinate Succinate n 50 MG 50 MG Succinate 50 MG hydroCHLORO hydroCHLORO No hydroCHLOR thiazide 25 thiazide 25 Othiazide MG MG 25 MG SUMAtriptan SUMAtriptan No 1{table QD SUMAtripta Succinate Succinate t_as_ne n 50 MG 50 MG eded} Succinate 50 MG Propranolol Propranolol No 1{table BID Propranolo HCl 10 MG HCl 10 MG t} l HCl 10 MG Lyrica 75 Lyrica 75 No 1{capsu QD Lyrica 75 MG MG le} MG Montelukast Montelukast No 1{table QD Montelukas Sodium 10 Sodium 10 t} t Sodium MG MG 10 MG Montelukast Montelukast No Montelukas Sodium 10 Sodium 10 t Sodium MG MG 10 MG Propranolol Propranolol No BID Propranolo HCl 10 MG HCl 10 MG l HCl 10 MG Phentermine Phentermine No 1{capsu QD Phentermin HCl 30 MG HCl 30 MG le} e HCl 30 MG Zoloft 100 Zoloft 100 No QD Zoloft 100 MG MG MG methIMAzole methIMAzole No 2.5{tab QD methIMAzol 5 MG 5 MG let} e 5 MG hydroCHLORO hydroCHLORO No 1{table QD hydroCHLOR thiazide 25 thiazide 25 t_in_th Othiazide MG MG e_morni 25 MG ng} Zoloft 100 Zoloft 100 No 1{table QD Zoloft 100 MG MG t} MG Zoloft 50 Zoloft 50 No 1{table QD Zoloft 50 MG MG t} MG SUMAtriptan SUMAtriptan No SUMAtripta Succinate Succinate n 50 MG 50 MG Succinate 50 MG hydroCHLORO hydroCHLORO No hydroCHLOR thiazide 25 thiazide 25 Othiazide MG MG 25 MG SUMAtriptan SUMAtriptan No 1{table QD SUMAtripta Succinate Succinate t_as_ne n 50 MG 50 MG eded} Succinate 50 MG Propranolol Propranolol No 1{table BID Propranolo HCl 10 MG HCl 10 MG t} l HCl 10 MG Lyrica 75 Lyrica 75 No 1{capsu QD Lyrica 75 MG MG le} MG Montelukast Montelukast No 1{table QD Montelukas Sodium 10 Sodium 10 t} t Sodium MG MG 10 MG Montelukast Montelukast No Montelukas Sodium 10 Sodium 10 t Sodium MG MG 10 MG Propranolol Propranolol No BID Propranolo HCl 10 MG HCl 10 MG l HCl 10 MG Phentermine Phentermine No 1{capsu QD Phentermin HCl 30 MG HCl 30 MG le} e HCl 30 MG Zoloft 100 Zoloft 100 No QD Zoloft 100 MG MG MG methIMAzole methIMAzole No 2.5{tab QD methIMAzol 5 MG 5 MG let} e 5 MG hydroCHLORO hydroCHLORO No 1{table QD hydroCHLOR thiazide 25 thiazide 25 t_in_th Othiazide MG MG e_morni 25 MG ng} Zoloft 100 Zoloft 100 No 1{table QD Zoloft 100 MG MG t} MG Zoloft 50 Zoloft 50 No 1{table QD Zoloft 50 MG MG t} MG Zoloft 50 Zoloft 50 No 1{table QD Zoloft 50 MG MG t} MG Phentermine Phentermine No 1{capsu QD Phentermin HCl 30 MG HCl 30 MG le} e HCl 30 MG hydroCHLORO hydroCHLORO No 1{table QD hydroCHLOR thiazide 25 thiazide 25 t_in_th Othiazide MG MG e_morni 25 MG ng} Montelukast Montelukast No 1{table QD Montelukas Sodium 10 Sodium 10 t} t Sodium MG MG 10 MG Propranolol Propranolol No 1{table BID Propranolo HCl 10 MG HCl 10 MG t} l HCl 10 MG SUMAtriptan SUMAtriptan No SUMAtripta Succinate Succinate n 50 MG 50 MG Succinate 50 MG hydroCHLORO hydroCHLORO No hydroCHLOR thiazide 25 thiazide 25 Othiazide MG MG 25 MG Zoloft 100 Zoloft 100 No 1{table QD Zoloft 100 MG MG t} MG Zoloft 100 Zoloft 100 No QD Zoloft 100 MG MG MG Montelukast Montelukast No Montelukas Sodium 10 Sodium 10 t Sodium MG MG 10 MG SUMAtriptan SUMAtriptan No 1{table QD SUMAtripta Succinate Succinate t_as_ne n 50 MG 50 MG eded} Succinate 50 MG Immunizations Ordered Filled Immunization Date Status Comments [facility] e Immunization Name Name Influenza Virus 2020-04-01 Completed [facility]:00[facility]00 [facility] Influenza Virus 2020-04-01 Completed [facility] .5 mL 00:00:00 [facility] Influenza Virus 2020-04-01 Completed [facility] .5 mL 00:00:00 [facility] Influenza Virus 2020-04-01 Completed [facility] .5 mL 00:00:00 [facility] TDAP (ADACEL) 2019-10-03 Completed [facility] VACCINE 00:00:00 [facility] TDAP (ADACEL) 2019-10-03 Completed [facility] VACCINE 00:00:00 [facility] TDAP (ADACEL) 2019-10-03 Completed [facility] VACCINE 00:00:00 [facility] TDAP (ADACEL) 2019-10-03 Completed [facility] VACCINE 00:00:00 [facility] Vital Signs Vital Name Observation Time Observation Value Comments Source height 2021-11-13 16:20:00 64 [in_i] Common S pirit - [facility] weight 2021-11-13 16:20:00 305.3 [lb_av] Common [facility] temperature 2021-11-13 16:20:00 97.3 [degF] Common S pirit - [facility] bmi 2021-11-13 16:20:00 52.4 kg/m2 [facility] S pirit [facility] oximetry 2021-11-13 16:20:00 95 % Common S pirit - [facility] respiratory rate 2021-11-13 16:20:00 18 /min Comm on [facility] blood pressure 2021-11-13 16:20:00 129 mm[Hg] Common [facility] - systolic [facility] blood pressure 2021-11-13 16:20:00 67 mm[Hg] Common [facility] - diastolic [facility] height 2021-09-30 09:20:00 64 [in_i] Common S [facility] weight 2021-09-30 09:20:00 314.3 [lb_av] [facility] temperature 2021-09-30 09:20:00 97.2 [degF] Common S [facility] bmi 2021-09-30 09:20:00 53.94 kg/m2 [facility] oximetry 2021-09-30 09:20:00 93 % Common [facility] respiratory rate 2021-09-30 09:20:00 16 /min Comm on [facility] blood pressure 2021-09-30 09:20:00 132 mm[Hg] Common [facility] - systolic [facility] blood pressure 2021-09-30 09:20:00 67 mm[Hg] Common [facility] - diastolic [facility] height 2021-05-07 13:50:00 64 [in_i] Common S [facility] weight 2021-05-07 13:50:00 287.7 [lb_av] [facility] temperature 2021-05-07 13:50:00 97.2 [degF] Common S [facility] bmi 2021-05-07 13:50:00 49.38 kg/m2 Common S [facility] oximetry 2021-05-07 13:50:00 94 % Common [facility] respiratory rate 2021-05-07 13:50:00 16 /min Comm on [facility] blood pressure 2021-05-07 13:50:00 136 mm[Hg] Common [facility] - systolic [facility] blood pressure 2021-05-07 13:50:00 76 mm[Hg] Common [facility] - diastolic [facility] height 2021-04-06 16:00:00 64 [in_i] Common [facility] weight 2021-04-06 16:00:00 286.0 [lb_av] Common [facility] temperature 2021-04-06 16:00:00 97.6 [degF] Common [facility] bmi 2021-04-06 16:00:00 49.09 kg/m2 Common [facility] oximetry 2021-04-06 16:00:00 97 % Common [facility] respiratory rate 2021-04-06 16:00:00 17 /min Comm on [facility] blood pressure 2021-04-06 16:00:00 127 mm[Hg] Common [facility] - systolic [facility] blood pressure 2021-04-06 16:00:00 62 mm[Hg] Common [facility] - diastolic [facility] height 2020-12-10 10:20:00 64 [in_i] Common [facility] weight 2020-12-10 10:20:00 288.7 [lb_av] [facility] temperature 2020-12-10 10:20:00 97.5 [degF] Common [facility] bmi 2020-12-10 10:20:00 49.55 kg/m2 Common [facility] oximetry 2020-12-10 10:20:00 93 % Common [facility] respiratory rate 2020-12-10 10:20:00 17 /min Comm on [facility] blood pressure 2020-12-10 10:20:00 124 mm[Hg] Common [facility] - systolic [facility] blood pressure 2020-12-10 10:20:00 68 mm[Hg] Common [facility] - diastolic [facility] Systolic blood 2020-03-27 19:08:00 118 mm[Hg] [facility] pressure Medicine Diastolic blood 2020-03-27 19:08:00 74 mm[Hg] [facility] Medicine Heart rate 2020-03-27 19:08:00 60 /min [facility] [employer] [employer] Respiratory rate 2020-03-27 19:08:00 18 /min [facility] Body height 2020-03-27 19:08:00 162.6 cm [facility] Body weight 2020-03-27 19:08:00 130.999 kg [facility] BMI 2020-03-27 19:08:00 49.57 kg/m2 [facility] [employer] [facility] Systolic blood 2020-03-27 19:08:00 118 mm[Hg] [facility] Medicine Diastolic blood 2020-03-27 19:08:00 74 mm[Hg] [facility] Medicine Heart rate 2020-03-27 19:08:00 60 /min [facility] [facility] Respiratory rate 2020-03-27 19:08:00 18 /min [facility] Body height 2020-03-27 19:08:00 162.6 cm [facility] [facility] Body weight 2020-03-27 19:08:00 130.999 kg [facility] BMI 2020-03-27 19:08:00 49.57 kg/m2 [facility] Systolic blood 2021-09-09 22:24:07 133 mm[Hg] [facility] pressure Diastolic blood 2021-09-09 22:24:07 65 mm[Hg] [facility] pressure Heart rate 2021-09-09 22:24:07 62 /min [facility] Body temperature 2021-09-09 22:24:07 36.28 Tegan [facility] Respiratory rate 2021-09-09 22:24:07 18 /min [facility] Oxygen saturation in 2021-09-09 22:24:07 96 /min [facility] Arterial blood by Pulse oximetry Body weight 2021-09-02 08:51:24 136.896 kg [facility] BMI 2021-09-02 08:51:24 51.80 kg/m2 [facility] Body height 2021-08-27 02:47:26 162.6 cm [facility] Procedures Procedure Date / Time Performing Clinician Source Performed CONSENT/REFUSAL FOR 2022-03-17 21:23:03 Doctor Unassigned, [facility] DIAGNOSIS AND TREATMENT [facility] MRI HEAD EXTERNAL STUDY 2021-10-19 15:25:00 Alonso Herrera [facility] POC GLUCOSE 2021-09-09 22:23:00 JoglekShane leblancati [facility] POC GLUCOSE 2021-09-09 17:43:00 Joglekar Acacia [facility] POC GLUCOSE 2021-09-09 12:46:00 JoglekarShaneAcacia [facility] POC GLUCOSE 2021-09-09 02:10:00 Joglekar Acacia [facility] POC GLUCOSE 2021-09-08 22:50:00 Joglekar Acacia [facility] POC GLUCOSE 2021-09-08 18:35:00 Joglekar Acacia [facility] POC GLUCOSE 2021-09-08 13:10:00 Joglekar Acacia [facility] POC GLUCOSE 2021-09-08 02:28:00 Joglekar Acacia [facility] POC GLUCOSE 2021-09-07 23:10:00 Joglekar Acacia [facility] POC GLUCOSE 2021-09-07 17:46:00 JoglekarShaneAcacia [facility] POC GLUCOSE 2021-09-07 13:20:00 Joglekar Acacia [facility] POC GLUCOSE 2021-09-07 02:07:00 Joglekar Acacia [facility] POC GLUCOSE 2021-09-06 23:51:00 Joglekar Acacia [facility] POC GLUCOSE 2021-09-06 17:26:00 Joglekar Acacia [facility] POC GLUCOSE 2021-09-06 13:13:00 Joglekar Acacia [facility] POC GLUCOSE 2021-09-06 02:43:00 Joglekar Acacia [facility] POC GLUCOSE 2021-09-05 23:55:00 Joglekar Acacia [facility] POC GLUCOSE 2021-09-05 17:41:00 Joglekar, Acacia [facility] POC GLUCOSE 2021-09-05 13:45:00 Joglekar, Acacia [facility] ECG 12-LEAD 2021-09-05 05:50:02 Joglekar, Acacia [facility] POC GLUCOSE 2021-09-05 03:25:00 Joglekar, Acacia [facility] POC GLUCOSE 2021-09-05 01:53:00 Joglekar, Acacia [facility] POC GLUCOSE 2021-09-04 23:28:00 Joglekar, Acacia [facility] POC GLUCOSE 2021-09-04 17:44:00 Joglekar, Acacia [facility] SIX MINUTE WALK W/ PULSE 2021-09-04 16:54:41 JoglAcacia carrasco [facility] OXIMETRY POC GLUCOSE 2021-09-04 13:27:00 JoglekAcacia leblanc [facility] POC GLUCOSE 2021-09-04 02:14:00 Joglekar, Acacia [facility] POC GLUCOSE 2021-09-03 23:15:00 Joglekar, Acacia [facility] POC GLUCOSE 2021-09-03 17:35:00 Joglekar, Acacia [facility] POC GLUCOSE 2021-09-03 13:29:00 Joglekar, Acacia [facility] POC GLUCOSE 2021-09-03 03:43:00 Joglekar, Acacia [facility] POC GLUCOSE 2021-09-02 22:37:00 Joglekar, Acacia [facility] POC GLUCOSE 2021-09-02 17:32:00 Joglekar, Acacia [facility] POC GLUCOSE 2021-09-02 13:55:00 Joglekar, Acacia [facility] POC GLUCOSE 2021-09-02 02:06:00 Joglekar, Acacia [facility] POC GLUCOSE 2021-09-01 22:59:00 Joglekar, Acacia [facility] XR ABDOMEN 1 VW PORTABLE 2021-09-01 21:44:00 Daphney Bronw [facility] HC COMPLETE BLD COUNT 2021-09-01 17:49:00 Brown Daphney [facility] W/AUTO DIFF COMPREHENSIVE METABOLIC 2021-09-01 17:49:00 [facility] Daphney [facility] PANEL ESTIMATED GFR 2021-09-01 17:49:00 Daphney Brown Ho spital POC GLUCOSE 2021-09-01 17:31:00 JoglekarShaneAcacia [facility] POC GLUCOSE 2021-09-01 13:36:00 Joglekar, Acacia [facility] POC GLUCOSE 2021-09-01 01:58:00 JoglekarShaneAcacia [facility] POC GLUCOSE 2021-08-31 23:12:00 JoglekarShaneAcacia [facility] POC GLUCOSE 2021-08-31 17:21:00 JoglekarShaneAcacia [facility] POC GLUCOSE 2021-08-31 13:08:00 JoglekarShaneAcacia [facility] POC GLUCOSE 2021-08-31 01:41:00 Joglekar, Acacia [facility] POC GLUCOSE 2021-08-30 23:36:00 Joglekar, Acacia [facility] POC GLUCOSE 2021-08-30 17:36:00 Joglekar, Acacia [facility] POC GLUCOSE 2021-08-30 13:15:00 JoglekarShaneAcacia [facility] POC GLUCOSE 2021-08-30 02:00:00 Joglekar, Acacia [facility] POC GLUCOSE 2021-08-29 23:05:00 Joglekar, Acacia [facility] POC GLUCOSE 2021-08-29 17:57:00 Joglekar, Acacia [facility] POC GLUCOSE 2021-08-29 13:41:00 Joglekar, Acacia [facility] POC GLUCOSE 2021-08-29 01:29:00 Joglekar, Acacia [facility] POC GLUCOSE 2021-08-28 22:55:00 Joglekar, Acacia [facility] POC GLUCOSE 2021-08-28 17:23:00 Joglekar, Acacia [facility] POC GLUCOSE 2021-08-28 13:45:00 Joglekar, Acacia [facility] POC GLUCOSE 2021-08-28 01:28:00 Joglekar, Acacia [facility] COVID-19 QUALITATIVE 2021-08-27 22:41:00 Joglekbenji, [facility]SE 2021-08-27 22:33:00 Joglekar, Acacia [facility] POC GLUCOSE 2021-08-27 17:33:00 Joglekar, Acacia [facility] POC GLUCOSE 2021-08-27 12:35:00 Joglekar, Acacia [facility] POC GLUCOSE 2021-08-27 02:48:00 Joglekar, Acacia [facility] POC GLUCOSE 2021-08-26 22:44:00 Joglekar, Acacia [facility] POC GLUCOSE 2021-08-26 16:43:00 Joglekar, Acacia [facility] POC GLUCOSE 2021-08-26 13:42:00 Joglekar, Acacia [facility] POC GLUCOSE 2021-08-26 01:50:00 Joglekar, Acacia [facility] POC GLUCOSE 2021-08-25 23:14:00 Joglekar, Acacia [facility] COVID-19 QUALITATIVE 2021-08-25 21:42:00 [facility] POC GLUCOSE 2021-08-25 17:35:00 Joglekar, Acacia [facility] POC GLUCOSE 2021-08-25 12:51:00 Joglekar, Acacia [facility] POC GLUCOSE 2021-08-24 21:45:00 Joglekar, Acacia [facility] POC GLUCOSE 2021-08-24 16:30:00 Joglekar, Acacia [facility] POC GLUCOSE 2021-08-24 13:01:00 Joglekar, Acacia [facility] XR CHEST 1 VW PORTABLE 2021-08-24 06:11:07 [facility] ECG 12-LEAD 2021-08-24 05:35:00 [facility] TROPONIN T 2021-08-24 05:14:00 [facility] B NATRIURETIC PEPTIDE 2021-08-24 05:14:00 [facility] D-DIMER 2021-08-24 05:14:00 [facility] POC GLUCOSE 2021-08-24 01:34:00 JoglekAcacia leblanc [facility] POC GLUCOSE 2021-08-23 22:13:00 Shane Lewisati [facility] POC GLUCOSE 2021-08-23 16:50:00 JojacquelynekShane leblancati [facility] POC GLUCOSE 2021-08-23 12:50:00 Acacia Lewis [facility] POC GLUCOSE 2021-08-23 02:07:00 Posani, Richelle [facility] POC GLUCOSE 2021-08-22 22:43:00 Posani, Richelle [facility] POC GLUCOSE 2021-08-22 16:45:00 Posani, Richelle [facility] POC GLUCOSE 2021-08-22 12:29:00 Posani, Richelle Daigle [facility] XR SKULL < 4 VW 2021-08-22 04:41:17 Mary Jane Rico [facility] POC GLUCOSE 2021-08-22 00:46:00 Posani, Richelle [facility] POC GLUCOSE 2021-08-21 22:41:00 Posani, Richelle [facility] POC GLUCOSE 2021-08-21 16:36:00 Posani, Richelle [facility] POC GLUCOSE 2021-08-21 13:46:00 Posani, Richelle [facility] BASIC METABOLIC PANEL 2021-08-21 09:48:00 [facility] HC COMPLETE BLD COUNT 2021-08-21 09:48:00 [facility] W/AUTO DIFF PHOSPHORUS LEVEL 2021-08-21 09:48:00 Green, [facility] MAGNESIUM LEVEL 2021-08-21 09:48:00 Green [facility] ospital IONIZED CALCIUM 2021-08-21 09:48:00 Green [facility] ESTIMATED GFR 2021-08-21 09:48:00 Green [facility] MRI BRAIN W WO CONTRAST 2021-08-21 04:00:00 Norma [facility] POC GLUCOSE 2021-08-21 01:14:00 PosRichelle james Ho spital POC GLUCOSE 2021-08-20 20:59:00 PosRichelle james spital IR EPIDURAL BLOOD PATCH 2021-08-20 19:49:00 Bren [facility] [place] POC GLUCOSE 2021-08-20 16:26:00 Richelle Lowry spital POC GLUCOSE 2021-08-20 12:21:00 Richelle Lowry Ho spital POC GLUCOSE 2021-08-20 09:12:00 PosRichelle james Ho spital POC GLUCOSE 2021-08-20 05:11:00 PosRichelle james spital BASIC METABOLIC PANEL 2021-08-20 04:57:00 Desiree Baez [facility] HC COMPLETE BLD COUNT 2021-08-20 04:57:[address] [facility] W/AUTO DIFF THYROID STIMULATING 2021-08-20 04:57:00 Joelle Alvares [facility] HORMONE Liong T4, FREE 2021-08-20 04:57:00 Joelle Alvares [facility] Liong ESTIMATED GFR 2021-08-20 04:57:00 PosRichelle james spital MAGNESIUM LEVEL 2021-08-20 04:57:00 PosRichelle james spital PHOSPHORUS LEVEL 2021-08-20 04:57:00 Richelle Lowry H ospital IONIZED CALCIUM 2021-08-20 04:57:00 Richelle Lowry spital POC GLUCOSE 2021-08-20 01:05:[address] HEAD WO CONTRAST 2021-08-19 22:19:25 Nestor [facility] ARTERIAL LINE 2021-08-19 20:28:13 Alex Dillon spital Art MISCELLANEOUS REFERRAL 2021-08-19 19:31:00 Essence [facility] TEST SURGICAL PATHOLOGY 2021-08-19 19:31:00 Essence [facility] REQUEST URINE CULTURE 2021-08-19 17:20:00 Richelle Lowrytal [place] AN ELECTIVE 2021-08-19 17:02:00 Alex Dillon ENDOTRACHEAL AIRWAY Art CRANIOTOMY 2021-08-19 16:44:00 Alonso Herrera [facility] XR SKULL < 4 VW 2021-08-19 15:03:00 CorreiaLauren POC GLUCOSE 2021-08-19 12:52:00 Richelle Lowry POC GLUCOSE 2021-08-19 00:22:00 Richelle Lowrytal COVID-19 QUALITATIVE 2021-08-18 21:40:00 [facility] [place] ABO AND RH CONFIRMATION 2021-08-18 20:31:[address] [facility] BY PROTOCOL [place] PARTIAL THROMBOPLASTIN 2021-08-18 16:57:00 [facility] TIME (PTT) [place] PROTHROMBIN TIME WITH INR 2021-08-18 16:57:00 [facility] [place] TYPE AND SCREEN 2021-08-18 16:57:00 [facility] coty Salvador MRI BRAIN W WO CONTRAST 2021-08-18 15:18:[address] [facility] [place] POC GLUCOSE 2021-08-18 13:28:00 Richelle Lowry HC COMPLETE BLD COUNT 2021-08-18 10:06:00 [facility] W/AUTO DIFF [place] POC GLUCOSE 2021-08-17 22:14:00 Richelle Lowry spital POC GLUCOSE 2021-08-17 18:05:00 Richelle Lowry spital POC GLUCOSE 2021-08-17 14:36:00 Posani, Richelle Daigle [facility] spital TTE COMPLETE, W CONTRAST, 2021-08-17 13:00:00 PosRichelle james [facility] W DOPPLER ([id number]) HC COMPLETE BLD COUNT 2021-08-17 10:27:00 Conway [facility] W/AUTO DIFF [place] TROPONIN T 2021-08-17 10:27:00 Posani, Richelle Daigle [facility] BASIC METABOLIC PANEL 2021-08-17 10:27:00 Posani, Richelle [facility] ESTIMATED GFR 2021-08-17 10:27:00 PosaniRichelle Ho spital ECG 12-LEAD 2021-08-17 05:20:42 Posani, Richelle [facility] POC GLUCOSE 2021-08-17 03:20:00 Posani, Richelle [facility] POC GLUCOSE 2021-08-16 22:56:00 Posani, Richelle [facility] POC GLUCOSE 2021-08-16 17:38:00 Posani, Richelle Daigle [facility] POC GLUCOSE 2021-08-16 13:51:00 Posani, Richelle Daigle [facility] sp[facility] HC COMPLETE BLD COUNT 2021-08-16 10:14:00 [facility] W/AUTO DIFF [place] BASIC METABOLIC PANEL 2021-08-16 10:14:00 Posani, Richelle [facility] ESTIMATED GFR 2021-08-16 10:14:00 PosRichelle james Ho spital B NATRIURETIC PEPTIDE 2021-08-16 04:37:00 Zoie Rendon [facility] TROPONIN T 2021-08-16 04:37:00 JusticeZoie apodaca [facility] D-DIMER 2021-08-16 04:37:00 JusticeZioe apodaca [facility] ECG 12-LEAD 2021-08-16 04:34:46 Zoie Rendon [facility] POC GLUCOSE 2021-08-16 02:27:00 Posani, Richelle Daigle [facility] POC GLUCOSE 2021-08-15 23:05:00 Posani, Richelle Daigle Ho spital BASIC METABOLIC PANEL 2021-08-15 21:03:00 Poserika, [facility] ESTIMATED GFR 2021-08-15 21:03:00 Posani, Richelle Daigle [facility] spital POC GLUCOSE 2021-08-15 18:03:00 Posani, Richelle Daigle [facility]ital POC GLUCOSE 2021-08-15 13:24:00 Posani, Richelle Daig[facility] POC GLUCOSE 2021-08-15 02:11:00 Posani, [facility]helle [facility] POC GLUCOSE 2021-08-14 22:57:00 Posani, Richelle [employer] [facility] POC GLUCOSE 2021-08-14 17:36:00 Posani, Richelle [facility] POC GLUCOSE 2021-08-14 13:23:00 Posani, [facility]helle [facility] POC GLUCOSE 2021-08-14 01:21:00 Posani, [facility]helle [facility] POC GLUCOSE 2021-08-13 22:46:00 Posani, Richelle [facility] POC GLUCOSE 2021-08-13 17:17:00 Posani, Richelle [facility] POC GLUCOSE 2021-08-13 13:06:00 Posani, [facility]helle [facility] URINE CULTURE 2021-08-13 13:02:00 Charli Wang spital URINE DRUGS OF ABUSE 2021-08-13 10:52:00 [place] [facility] SCREEN URINALYSIS SCREEN AND 2021-08-13 10:52:00 [facility] MICROSCOPY, WITH REFLEX TO CULTURE HEMOGLOBIN A1C 2021-08-13 09:13:00 [facility]ital LIPID PANEL 2021-08-13 09:13[facility]00 [facility] 2021-08-13 09:13:00 [facility] FOLATE LEVEL 2021-08-13 09:13:00 [facility] VITAMIN B12 LEVEL 2021-08-13 09:13:00 [facility] THYROID STIMULATING 2021-08-13 09:13:00 [facility] HORMONE T4, FREE 2021-08-13 09:13:00 [facility] spital SEDIMENTATION RATE 2021-08-13 09:13:00 [facility] C-REACTIVE PROTEIN 2021-08-13 09:13:00 [facility] PROTHROMBIN TIME WITH INR 2021-08-13 09:13:00 [facility] PARTIAL THROMBOPLASTIN 2021-08-13 09:13:00 [facility] TIME (PTT) HIV 1/2 ANTIGEN/ANTIBODY, 2021-08-13 09:13:00 [facility] FOURTH GENERATION, WITH REFLEXES SYPHILIS TREPONEMA SCREEN 2021-08-13 09:13:00 [facility] WITH RPR CONFIRMATION (REVERSE ALGORITHM) POC GLUCOSE 2021-08-13 03:11:00 Lauren Francois spital POC GLUCOSE 2021-08-12 23:38:00 Lauren Francois spital TROPONIN T 2021-08-11 18:20:00 Lauren Francois spital THYROID STIMULATING 2021-08-11 18:20:00 Lauren Francois [facility] HORMONE T4, FREE 2021-08-11 18:20:00 Lauren Francois spital ECG 12-LEAD 2021-08-11 17:05:13 Lauren Francois spital MRI THORACIC SPINE W WO 2021-08-10 14:20:00 [facility] CONTRAST MRI LUMBAR SPINE W WO 2021-08-10 13:30:00 [facility] CONTRAST MRI CERVICAL SPINE W WO 2021-08-10 12:45:00 [facility] CONTRAST COVID-19 ANTI-SPIKE IGG 2021-08-10 08:20:00 [facility] ANTIBODY TITER Terry BENAVIDES COMPLETE BLD COUNT 2021-08-10 08:20:00 [facility] W/AUTO DIFF COMPREHENSIVE METABOLIC 2021-08-10 08:20:00 [facility] PANEL COVID-19 SEROLOGY PATIENT 2021-08-10 08:20:00 Modesto Sung [facility] SURVEILLANCE Terry ESTIMATED GFR 2021-08-10 08:20:00 Irene Elena [facility] TROPONIN T 2021-08-09 09:19:00 Manas Mcghee spital MRI BRAIN W WO CONTRAST 2021-08-09 06:35:00 Asim Almanza [facility] ECG ED PRELIMINARY 2021-08-09 03:18:13 Taz Manas [facility] INTERPRETATION CT HEAD WO CONTRAST 2021-08-09 03:04:32 [facility] 2021-08-09 02:52:00 Joel Warren [facility] Andrea COVID-19 QUALITATIVE 2021-08-09 02:37:00 Taz Manas [facility] RT-PCR HC COMPLETE BLD COUNT 2021-08-09 02:37:00 Taz Manas [facility] W/AUTO DIFF PROTHROMBIN TIME WITH INR 2021-08-09 02:37:00 Manas Mcghee [facility] PARTIAL THROMBOPLASTIN 2021-08-09 02:37:00 Taz Manas [facility] TIME (PTT) COMPREHENSIVE METABOLIC 2021-08-09 02:37:00 [facility] PANEL ESTIMATED GFR 2021-08-09 02:37:00 Manas Mcghee spital TROPONIN T 2021-08-09 02:37:00 [facility] B NATRIURETIC PEPTIDE 2021-08-09 02:37:00 Manas Mcghee [facility] XR SKULL < 4 VW 2021-08-09 02:09:31 Manas Mcghee spital ECG 12-LEAD 2021-08-09 01:42:14 Manas Mcghee spital XR ABDOMEN AP AND LATERAL 2021-08-09 01:40:26 Manas Mcghee [facility] XR CERVICAL SPINE 2 OR 3 2021-08-09 01:40:07 Manas Mcghee [facility] VW XR CHEST 2 VW 2021-08-09 01:39:53 Manas Mcghee spital Plan of Care Planned Activity Planned Date Details Comments Source Future Scheduled 2022-03-19 COVID-19 VACCINE (#1) [facility] 04:23:42 [code = COVID-19 Hospital VACCINE (#1)] Future Scheduled 2022-03-19 Hepatitis C screening [facility] 04:23:42 (procedure) [code = Hospital 312769337] Future Scheduled 2022-03-19 BREAST CANCER [facility] Test 04:23:42 SCREENING [code = Hospital BREAST CANCER SCREENING] Future Scheduled 2022-03-19 COLONOSCOPY SCREENING [facility] 04:23:42 [code = COLONOSCOPY Hospital SCREENING] Future Scheduled 2022-03-19 INFLUENZA VACCINE Method ist Test 04:23:42 [code = INFLUENZA Hospital VACCINE] Future Scheduled 2021-12-26 HEPATITIS B VACCINES [facility] 19:34:27 (1 of 3 - 3-dose Hospital series) [code = HEPATITIS B VACCINES (1 of 3 - 3-dose series)] Future Scheduled 2021-12-26 COVID-19 VACCINE (#1) [facility] 19:34:27 [code = COVID-19 Hospital VACCINE (#1)] Future Scheduled 2021-12-26 Hepatitis C screening [facility] 19:34:27 (procedure) [code = Hospital 923628986] Future Scheduled 2021-12-26 Screening for [facility] Test 19:34:27 malignant neoplasm of Hospit al cervix (procedure) [code = 379531554] Future Scheduled 2021-12-26 BREAST CANCER [facility] Test 19:34:27 SCREENING [code = Hospital BREAST CANCER SCREENING] Future Scheduled 2021-12-26 COLONOSCOPY SCREENING [facility] 19:34:27 [code = COLONOSCOPY Hospital SCREENING] Future Scheduled 2021-12-26 INFLUENZA VACCINE Method ist Test 19:34:27 [code = INFLUENZA Hospital VACCINE] Future Scheduled 2021-12-[address] [facility] Test 00:00:00 (#1) [code = Medical Center INFLUENZA VACCINE (#1)] Future Scheduled 2021-04-[address] [facility] Test 00:00:00 (12+) [code = Medical Center DEPRESSION SCREENING (12+)] Future Scheduled 2020-01-[address] [facility] Test 00:00:00 (procedure) [code = [facility] 43827738] Future Scheduled 1996-01-[address] [facility] Test 00:[facility]:00 malignant neoplasm of Medica l Center cervix (procedure) [code = 446749515] Future Scheduled 1994 DTAP/TDAP/TD VACCINES [facility] Test 00:00:00 (1 - Tdap) [code = Medical C enter DTAP/TDAP/TD VACCINES (1 - Tdap)] Future Scheduled 1993 HEPATITIS C SCRE[facility]ING [facility] Test 00:00:00 [code = HEPATITIS C Medical Center SCREENING] Future Scheduled [address] [facility] Test 00:00:00 Counseling and Medical Cente r Screening (12+) [code = Tobacco Cessation Counseling and Screening (12+)] Future Scheduled 1975 COVID-19 VACCINE (#1) [facility] Test 00:00:00 [code = COVID-[address] VACCINE (#1)] Future Scheduled [address] [facility] Test 00:00:00 (combo) [code = CT Medical C enter Colonography (combo)] Future Scheduled [address] [facility] [facility] Test 00:00:00 malignant neoplasm of Medica l Center colon (procedure) [code = 148962036] Future Scheduled [address] [facility] Test 00:00:00 malignant neoplasm of Medica l Center colon (procedure) [code = 437802827] Future Scheduled [address] [facility] [facility] Test 00:00:00 malignant neoplasm of Medica l Center colon (procedure) [code = 036021342] Future Scheduled [address] [facility] Test 00:00:00 malignant neoplasm of Medica l Center colon (procedure) [code = 918745857] Future Scheduled 1975 Sigmoidoscopy [code = [facility] Test 00:00:00 Sigmoidoscopy] Medical Cente r Future Scheduled TSH [code = 06675-8] Ordered: [facility] Test 03/27/2020 of Medicine Future Scheduled T4 FREE [code = Ordered: [facility] C ollege Test 3024-7] 03/27/2020 of Medicine Future Scheduled T3 [code = 3053-6] Ordered: [facility] Test 03/27/2020 of Medicine Future Scheduled MAMMOGRAM ANNUAL [facility] Test [code = MAMMOGRAM of Medicin e ANNUAL] Future Scheduled TETANUS SHOT (ADULT) [employer] Test [code = TETANUS SHOT of Medi cine (ADULT)] Future Scheduled BMI FOLLOW UP PLAN [facility] Test [code = BMI FOLLOW UP of Med icine PLAN] Future Scheduled HEPATITIS C SCREENING [employer] Test [code = HEPATITIS C of Medic ine SCREENING] Future Scheduled HIV SCREENING [code = [employer] Test HIV SCREENING] of Medicine Future Scheduled CERVICAL CANCER [facility] C ollege Test SCREENING 3 YEAR of Medicine FOLLOW UP [code = CERVICAL CANCER SCREENING 3 YEAR FOLLOW UP] Future Scheduled FLU VACCINE > 6 [facility] C ollege Test MONTHS [code = FLU of Medici ne VACCINE > 6 MONTHS] Encounters Start End Encounter Admission Attending Care Care Encounter Source Date/Time Date/Time Type Type Clinicians Facility Department ID 2022-03-10 Outpatient Chacon, [facility] [id number] Common 09:34:02 Manjinder [facility] 2022-02-03 Outpatient Chacon, [facility] [id number] Common 14:59:00 Manjinder [facility] 2022-02-01 Outpatient Chacon, [facility] [id number] Common 11:11:01 Manjinder [facility] 2021-08-03 Outpatient Chacon, [facility] [id number] Common 16:18:01 Manjinder [facility] 2021-05-07 Outpatient Chacon, [facility] [id number] Common 13:30:02 Manjinder [facility] 2021-05-01 Outpatient Chacon, [facility] [id number] Common 08:23:02 Manjinder [facility] 2021-04-29 Outpatient Chacon, [facility] [id number] Common 14:31:29 Manjinder [facility] 2021-04-29 Outpatient Chacon, [facility] [id number] Common 14:12:21 Manjinder [facility] 2021-04-29 Outpatient Chacon, [facility] [id number] Common 12:44:58 Manjinder [id number] [facility] 2021-04-29 Outpatient Chacon, [facility] [id number] Common 12:34:29 Manjinder [id number] [facility] 2021-04-29 Outpatient Chacon, STLMLC [facility] [id number] Common 12:27:16 Manjinder [id number] [facility] 2021-04-29 Outpatient Chacon, [facility] [id number] Common 12:20:23 Manjinder [id number] [facility] 2021-04-29 Outpatient Chacon, [facility] [id number] Common 11:59:35 Manjinder [id number] [facility] 2021-04-29 Outpatient Chacon, STLC [facility] [id number] Common 11:46:14 Manjinder [id number] [facility] 2021-04-29 Outpatient Chacon, [facility] [id number] Common 11:27:12 Manjinder [id number] [facility] 2022-04-12 2022-04-12 Outpatient Tayler [facility] [id number] Univers 08:00:00 08:00:[address] [facility] 2022-03-23 2022-03-23 Outpatient Tayler [facility] [id number] Univers 16:00:00 16:00:[address] [facility] 2022-03-17 2022-03-17 Outpatient Tayler [facility] [id number] Univers 15:30:00 15:30:[address] [facility] 2022-03-17 2022-03-17 Orders Doctor LAUREN 1.2.840.114 [id number] Univers 00:00:00 00:00:00 Only Unassigned, NICHOLAS 350.1.13.10 [place] [facility] 4.2.7.2.686 Ronnie as [phone] [address] 2022-02-18 2022-02-18 Documentat Katherine 1.2.840.1 [id number] Methodi 00:00:00 00:00:00 ion Kathryn 56904.1.[address] [place] 3.430.2.7 Hospit a .3.870943 l .8 2021-10-19 2021-12-27 Office [facility], 1.2.840.1 [id number] Methodi 13:30:00 00:12:59 Visit Alonso Buckner 50811.1.[address] 3.430.2.7 Hospit a .3.071686 l .8 2021-10-19 2021-12-27 Office [facility], 1.2.840.1 [id number] Methodi 13:30:00 00:12:59 Visit Alonso Buckner 52212.1.[address] 3.430.2.7 Hospit a .3.616821 l .8 2021-11-13 2021-11-13 OFFICE STLMLC STLMLC [id number] Co mmon 00:00:00 00:00:00 VISIT EST Spir it PT LEVEL 3 [facility] 2021-10-26 2021-10-26 (TEL) STLMLC STLMLC [id number] Co mmon 00:00:00 00:00:00 [facility] 2021-10-19 2021-10-19 [facility], 1.2.840.1 [id number] Methodi 13:21:54 23:59:00 Encounter Alonso Buckner 96184.1.[address] 3.430.2.7 Hospit a .3.327828 l .8 2021-10-19 2021-10-19 [facility], 1.2.840.1 [id number] Methodi 13:21:54 23:59:00 Encounter Alonso Buckner 36491.1.[address] 3.430.2.7 Hospit a .3.210251 l .8 2021-10-19 2021-10-19 Travel 1.2.840.1 1.2.451.257 [id number] Methodi 00:00:00 00:00:[address] 3.430.2.7 0.2.7.3.698 Ho spita .3.834281 084.8 l .8 2021-10-19 2021-10-19 Travel 1.2.840.1 1.2.548.422 5498 [id number] Methodi 00:00:00 00:00:[address] 3.430.2.7 0.2.7.3.698 Ho spita .3.007232 084.8 l .8 2021-10-14 2021-10-14 Outpatient R [facility] [id number] Univers 09:30:00 09:30:[address] [facility] 2021-10-14 2021-10-14 Outpatient R [facility] [id number] Univers 09:30:00 09:30:[address] [facility] 2021-10-13 2021-10-13 (TEL) STLMLC STLMLC [id number] Co mmon 00:00:00 00:00:00 [facility] 2021-09-30 2021-09-30 OFFICE STLMLC STLMLC [id number] Co mmon 00:00:00 00:00:00 VISIT Spirit ESTAB PT - CHI LEVEL 5 [facility] 2021-09-29 2021-09-29 Travel 1.2.840.1 1.2.041.919 [id number] Methodi 00:00:00 00:00:[address] 3.430.2.7 0.2.7.3.698 Ho spita .3.828020 084.8 l .8 2021-09-29 2021-09-29 Orders Katherine, 1.2.840.1 [id number] [id number] Methodi 00:00:00 00:00:00 Only Kathryn 83264.1.[address] [place] 3.430.2.7 Hospit a .3.420411 l .8 2021-09-29 2021-09-29 Travel 1.2.840.1 1.2.905.655 3380 [id number] Methodi 00:00:00 00:00:[address] 3.430.2.7 0.2.7.3.698 Ho spita .3.676144 084.8 l .8 2021-09-29 2021-09-29 Orders Katherine, 1.2.840.1 [id number] Methodi 00:00:00 00:00:00 Only Kathryn 89146.1.[address] [place] 3.430.2.7 Hospit a .3.282641 l .8 2021-09-19 2021-09-19 Nurse LAUREN Nguyễn 1.2.840.114 [id number] Univers 00:00:00 00:00:00 Triage Norman [facility] 4.2.7.2.686 Ronnie as [phone] [address] 2021-09-15 2021-09-15 Orders Katherine, 1.2.840.1 [id number] Methodi 00:00:00 00:00:00 Only Kathryn 75693.1.[address] [place] 3.430.2.7 Hospit a .3.779401 l .8 2021-09-15 2021-09-15 Orders Medina, 1.2.840.1 [id number] Methodi 00:00:00 00:00:00 Only Shila 07490.1.[address] 3.430.2.7 Hospit a .3.347855 l .8 2021-09-15 2021-09-15 Orders Katherine, 1.2.840.1 [id number] 85427 [id number] Methodi 00:00:00 00:00:00 Only Kathryn 66708.1.[address] [place] 3.430.2.7 Hospit a .3.731725 l .8 2021-09-15 2021-09-15 Orders Medina, 1.2.840.1 [id number] Methodi 00:00:00 00:00:00 Only Shila 48704.1.[address] 3.430.2.7 Hospit a .3.398300 l .8 2021-09-14 2021-09-14 Orders Katherine, 1.2.840.1 [id number] [id number] Methodi 00:00:00 00:00:00 Only Kathryn 53639.1.[address] [place] 3.430.2.7 Hospit a .3.073750 l .8 2021-09-14 2021-09-14 Documentat Medina, 1.2.840.1 [id number] Methodi 00:00:00 00:00:00 ion Shila 78688.1.[address] 3.430.2.7 Hospit a .3.344243 l .8 2021-09-14 2021-09-14 (TEL) STLMLC STLMLC [id number] Co mmon 00:00:00 00:00:00 [facility] 2021-09-14 2021-09-14 Orders Katherine, 1.2.840.1 [id number] [id number] Methodi 00:00:00 00:00:00 Only Kathryn 38893.1.[address] [place] 3.430.2.7 Hospit a .3.219408 l .8 2021-09-14 2021-09-14 Documentat Medina, 1.2.840.1 [id number] Methodi 00:00:00 00:00:00 ion Shila 40172.1.[address] 3.430.2.7 Hospit a .3.510334 l .8 2021-09-14 2021-09-[address] [facility] 1.2.628.510 [id number] Univers 00:00:00 00:00:00 [facility] 350.1.13.10 ity of [place] 4[place]2.7.2.686 [place] [facility] [phone] [place] [address] [address] OFFICE BUILDING 2021-08-26 2021-09-09 [facility], 1.2.840.1 [id number] Methodi 21:45:00 20:00:00 Encounter Acacia 36787.1.[address] 3.430.2.7 Hospit a .3.417750 l .8 2021-08-26 2021-09-09 [facility], 1.2.840.1 [id number] Methodi 21:45:00 20:00:00 Encounter Acacia 80171.1.[address] 3.430.2.7 Hospit a .3.986389 l .8 2021-09-09 2021-09-09 (TEL) STLMLC STLMLC [id number] Co mmon 00:00:00 00:00:00 [facility] 2021-08-08 2021-08-26 [facility] 1.2.840.1 [id number] Methodi 18:19:00 21:44:00 Encounter Fredi Schmid 52565.1.1 022 [facility], [place] 3.430.2.7 Hospita PriscilaLauren parr .3.358955 l Poserika, Richelle .8 2021-08-08 2021-08-26 [facility] 1.2.840.1 [id number] Methodi 18:19:00 21:44:00 Encounter Fredi Schmid 92697.1.1 022 [facility], [place] 3.430.2.7 Hospita Lauren Francois .3.400661 l Posani, Richelle .8 2021-08-19 2021-08-19 Anesthesia Groen, 1.2.840.1 [id number] 077 [id number] Methodi 11:42:00 16:30:00 Event Alex 63456.1.[address] [place] 3.430.2.7 Hospit a .3.742483 l .8 2021-08-19 2021-08-19 Anesthesia Groen, 1.2.840.1 [id number] [id number] Methodi 11:42:00 16:30:00 Event Alex 60221.1.[address] [place] 3.430.2.7 Hospit a .3.637316 l .8 2021-08-19 2021-08-19 Surgery Sharon, 1.2.840.1 [id number] 0446 Methodi 10:55:00 15:10:00 Alonso Buckner 10654.1.[address] 3.430.2.7 Hospit a .3.383475 l .8 2021-08-19 2021-08-19 Surgery Sharon, 1.2.840.1 [id number] 3313 Methodi 10:55:00 15:10:00 Alonso Buckner 03277.1.[address] 3.430.2.7 Hospit a .3.070721 l .8 2021-08-13 2021-08-13 (TEL) STLMLC STLMLC [id number] Co mmon 00:00:00 00:00:00 [facility] 2021-08-12 2021-08-12 (TEL) STLMLC STLMLC [id number] Co mmon 00:00:00 00:00:00 [facility] 2021-08-11 2021-08-11 (TEL) STLMLC STLMLC [id number] Co mmon 00:00:00 00:00:00 [facility] 2021-08-08 2021-08-08 Travel 1.2.840.1 1.2.617.672 [id number] [id number] Methodi 00:00:00 00:00:[address] 3.430.2.7 0.2.7.3.698 Ho spita .3.616736 084.8 l .8 2021-08-08 2021-08-08 Travel 1.2.840.1 1.2.401.453 9795 [id number] Methodi 00:00:00 00:00:[address] 3.430.2.7 0.2.7.3.698 Ho spita .3.015619 084.8 l .8 2021-08-07 2021-08-07 (TEL) STLMLC STLMLC [id number] Co mmon 00:00:00 00:00:00 [facility] 2021-08-04 2021-08-04 (TEL) STLMLC STLMLC [id number] Co mmon 00:00:00 00:00:00 [facility] 2021-08-03 2021-08-03 Telephone LAUREN Martino 1.2.195.932 [id number] [facility] 00:00:00 00:00:00 Sendil Sheyla PETERSON 350.1.13.10 ity [facility] 4.2.7.2.686 Ronnie as [phone] [facility] [address] 2021-07-23 2021-07-23 Outpatient R [facility] [id number] Univers 13:00:00 14:06:54 SENDIL ity [facility] 2021-07-23 2021-07-[address] [facility] 1.2.840.114 [id number] Univers 13:00:00 14:06:54 Visit Imani [place] [facility] 4.[place].7.2.[place] [phone] [place] [address] [facility] 2021-06-23 2021-06-23 (TEL) STLMLC STLMLC [id number] Co mmon 00:00:00 00:00:00 [facility] 2021-05-24 2021-05-24 Nurse LAUREN Simms 1.2.840.114 [id number] Univers 00:00:00 00:00:00 Triage Rupinder PETERSON 350.1.13.10 it y [facility] 4.2.7.2.686 Ronnie as [phone] [facility] [address] 2021-05-23 2021-05-23 (TEL) STLMLC STLMLC [id number] Co mmon 00:00:00 00:00:00 [facility] 2021-05-14 2021-05-14 (TEL) STLMLC STLMLC [id number] Co mmon 00:00:00 00:00:00 [facility] 2021-05-07 2021-05-07 OFFICE STLMLC STLMLC [id number] Co mmon 00:00:00 00:00:00 VISIT [facility] ESTAB PT - CHI LEVEL 4 [facility] 2021-05-05 2021-05-05 (TEL) STLMLC STLMLC [id number] Co mmon 00:00:00 00:00:00 [facility] 2021-05-01 2021-05-01 (TEL) STLMLC STLMLC [id number] Co mmon 00:00:00 00:00:00 [facility] 2021-04-10 2021-04-10 (TEL) STLMLC STLMLC [id number] Co mmon 00:00:00 00:00:00 [facility] 2021-04-06 2021-04-06 (TEL) STLMLC STLMLC [id number] Co mmon 00:00:00 00:00:00 [facility] 2021-04-06 2021-04-06 OFFICE STLMLC STLMLC [id number] Co mmon 00:00:00 00:00:00 VISIT [facility] PT - CHI LEVEL 4 [facility] 2021-02-12 2021-02-12 (TEL) STLMLC STLMLC [id number] Co mmon 00:00:00 00:00:00 [facility] 2021-02-09 2021-02-[address] [facility] ERT [id number] Univers 21:28:00 23:35:00 FANNIE howard [facility] 2021-02-09 2021-02-[address] [facility] 1.2.500.209 [id number] Univers 21:28:00 23:35:00 Fannie [place] 350.1.13.10 i Gee 4.2.7.2.686 [facility] [phone] [place] [address] [address] 2021-02-09 2021-02-09 Orders Doctor AGUILAR 1.2.840.114 [id number] Univers 00:00:00 00:00:00 Only Unassigned, NICHOLAS 350.1.13.10 ity [place] [facility] 4.2.7.2.686 Ronnie as [phone] [address] 2021-01-29 2021-01-29 (TEL) STLMLC STLMLC [id number] Co mmon 00:00:00 00:00:00 [facility] 2021-01-27 2021-01-27 [facility] 1.2.840.114 [id number] Univers 08:24:21 09:10:00 Visit Imani Cunningham 350.1.13.10 ity of [place].7.2.[place] [phone] Mt dicmi nal [address] [place] [address] 2021-01-27 2021-01-27 [facility] [id number] Univers 08:30:00 08:30:00 SENDIL ity [facility] 2021-01-27 2021-01-27 Orders Doctor AGUILAR 1.2.840.114 [id number] Univers 00:00:00 00:00:00 Only Unassigned, NICHOLAS 350.1.13.10 it[place] [facility] 4.2.7.2.686 Ronnie as [phone] [address] 2021-01-27 2021-01-27 Letter [facility] 1.2.840.114 [id number] Univers 00:00:00 00:00:00 (Out) Imani Cunningham 350.1.13.10 [place] [phone] Mt dical nal 9 [facility] 2021-01-25 2021-01-25 (TEL) STLMLC STLMLC [id number] Co mmon 00:00:00 00:00:00 [facility] 2021-01-22 2021-01-22 (TEL) STLMLC STLMLC [id number] Co mmon 00:00:00 00:00:00 [facility] 2021-01-19 2021-01-19 (TEL) STLMLC STLMLC [id number] Co mmon 00:00:00 00:00:00 [facility] 2020-12-10 2020-12-10 OFFICE STLMLC STLMLC [id number] Co mmon 00:00:00 00:00:00 VISIT [facility] LEVEL 4 [facility] 2020-11-21 2020-11-21 (TEL) STLMLC STLMLC [id number] Co mmon 00:00:00 00:00:00 [facility] 2020-11-18 2020-11-18 (TEL) STLMLC STLMLC [id number] Co mmon 00:00:00 00:00:00 [facility] 2020-11-05 2020-11-05 Outpatient STLMLC STLMLC [id number] Common 00:00:00 00:00:00 [facility] 2020-10-30 2020-10-30 Outpatient [place] [id number] Univers 11:30[facility]00 [facility] 2020-[facility]15 [facility] STLMLC STLMLC [id number] Common 00:00:00 00:00:00 [facility] 2020-09-04 2020-09-04 Outpatient [place] [id number] Univers 11:00:00 [facility] 2020-08-20 Outpatient STLMLC STLMLC [id number] Common 00:00:00 00:00:00 [facility] 2020-08-19 2020-08-19 Outpatient STLMLC STLMLC [id number] Common 00:00:00 00:00:00 [facility] 2020-07-15 2020-07-15 Outpatient Tayler [facility] [id number] Univers 10:00:00 10:00:[address] [facility] 2020-07-11 2020-07-11 Outpatient STLMLC STLMLC [id number] Common 00:00:00 00:00:00 [facility] 2020-07-10 2020-07-10 Outpatient STLMLC STLMLC [id number] Common 00:00:00 00:00:00 [facility] 2020-07-02 2020-07-02 Outpatient STLMLC STLMLC [id number] Common 00:00:00 00:00:00 [facility] 2020-06-29 2020-06-29 Outpatient STLMLC STLMLC [id number] Common 00:00:00 00:00:00 [facility] 2020-06-10 2020-06-10 Outpatient STLMLC STLMLC [id number] Common 00:00:00 00:00:00 [facility] 2020-06-03 2020-06-03 Outpatient STLMLC STLMLC [id number] Common 00:00:00 00:00:00 [facility] 2020-06-02 2020-06-[address] [facility] [id number] 00:00:00 00:00:00 Imani Cunningham [id number] [place] 4.2.7.2.686 Professio [phone] [address] 2020-06-02 2020-06-[address] [facility] 1.2.528.156 [id number] Univers 00:00:00 00:00:00 Imani Cunningham 350.1.13.10 it[place] [phone] [address] 2020-05-31 2020-05-31 Outpatient STLMLC STLMLC [id number] Common 00:00:00 00:00:00 [facility] 2020-05-07 2020-05-07 Outpatient STLMLC STLMLC [id number] Common 00:00:00 00:00:00 [facility] 2020-05-05 2020-05-[address] [facility] 1.2.349.036 [id number] 00:00:00 00:00:00 Sendil K.[facility]. Kittrell 350.1.13.10 [place] 4.2.7.2.686 Professio [phone] [address] 2020-05-05 2020-05-05 [facility] 1.2.579.257 [id number] Univers 00:00:00 00:00:00 Sendil K.[facility]. Kittrell 350.1.13.10 ity [place] [phone] Mt dical nal [address] [place] [address] 2020-05-02 2020-05-02 [facility] 1.2.840.114 [id number] 08:58:15 23:59:00 Encounter Sendil [facility]. SPECIALTY 350.1.13.10 CARE 4.2.7.2.686 CENTER AT [phone] [address] 2020-05-02 2020-05-02 [facility] 1.2.840.114 [id number] [facility] 08:58:15 23:59:00 Encounter Sendil K.[facility]. SPECIALTY 350.1.13.10 it[place] AT [phone] Mt aliza[address] 2020-05-02 2020-05-02 Outpatient R [facility] [id number] Univers 09:00:00 09:00:00 SENDIL ity of [facility] 2020-05-02 2020-05-02 [facility] 1.2.840.114 [id number] 08:32:07 08:57:00 Encounter Sendil K.[facility]. SPECIALTY 350.1.13.10 CARE 4.2.7.2.686 CENTER AT [phone] [address] 2020-05-02 2020-05-02 [facility] 1.2.840.114 [id number] Univers 08:32:07 08:57:00 Encounter Sendil K.[facility]. SPECIALTY 350.1.13.10 it[place] [phone] Me dicterry AKBAR[address] 2020-05-02 2020-05-02 [facility] 1.2.840.114 [id number] 08:31:50 08:31:50 Encounter Sendil [facility]. SPECIALTY 350.1.13.10 CARE 4.2.7.2.686 CENTER AT [phone] [address] 2020-05-02 2020-05-02 [facility] 1.2.840.114 [id number] Univers 08:31:50 08:31:50 Encounter Sendil K.[facility]. SPECIALTY 350.1.13.10 it[place] [phone] Mt dicterry SANTOS [address] [place] [address] 2020-05-02 2020-05-02 [facility] 1.2.840.114 [id number] 08:31:12 08:31:12 Encounter Sendil K.[facility]. SPECIALTY 350.1.13.10 CARE 4.2.7.2.686 CENTER AT [phone] [address] 2020-05-02 2020-05-02 [facility] 1.2.840.114 [id number] Univers 08:31:12 08:31:12 Encounter Sendil K.[facility]. SPECIALTY 350.1.13.10 ity [place] [phone] Mt pamella ROOSEVELTKirill [address] [place] [address] 2020-04-24 2020-04-24 Outpatient [facility] [id number] Univers 10:30:00 10:30:00 SENDIL ity [facility] 2020-04-16 2020-04-16 Outpatient STREGENCY MERIDIAN [id number] Common 00:00:00 00:00:00 [facility] 2020-04-11 2020-04-11 Orders Doctor AGUILAR 1.2.840.114 [id number] 00:00:00 00:00:00 Only Unassigned, NICHOLAS 350.1.13.10 [facility] 4.2.7.2.686 [phone] 009 2020-04-11 2020-04-11 Orders Doctor LAUREN 1.2.840.114 [id number] Univers 00:00:00 00:00:00 Only Unassigned, NICHOLAS 350.1.13.10 ity [place] [facility] 4.2.7.2.686 Ronnie as [phone] [address] 2020-04-10 2020-04-10 Telephone [facility] 1.2.971.204 [id number] Univers 00:00:00 00:00:00 Imani Cunningham 350.1.13.10 [place] [phone] [address] 2020-04-09 2020-04-09 [facility] 1.2.935.915 [id number] Univers 00:00:00 00:00:00 Imani Cunningham 350.1.13.10 it[place] [phone] [address] 2020-04-08 2020-04-08 [facility] 1.2.502.625 [id number] [facility] 00:00:00 00:00:00 Imani Cunningham 350.1.13.10 it[place] [phone] [address] 2020-04-08 2020-04-08 [facility] 1.2.729.757 [id number] 00:00:00 00:00:00 Imani Cunningham 350.1.13.10 [place] 4.2.7.2.686 Professio [phone] [address] 2020-04-01 2020-04-01 Office [facility] 1.2.840.114 [id number] Univers 10:44:06 12:00:21 Visit Imani Cunningham 350.1.13.10 ity [place] [phone] [address] 2020-04-01 2020-04-01 [facility] [id number] Univers 11:00:00 11:00:00 SENDIL ity [facility] 2020-04-01 2020-04-[address] [facility] 1.2.634.073 [id number] Univers 00:00:00 00:00:00 Sendil Sheyla Cunningham 350.1.13.10 it[place]2.[place] [phone] [address] 2020-04-01 2020-04-01 Outpatient STLMLC STLMLC [id number] Common 00:00:00 00:00:00 [facility] 2020-03-31 2020-03-31 Outpatient STLMLC STLMLC [id number] Common 00:00:00 00:00:00 [facility] 2020-03-27 2020-03-27 Office Cool, [facility] 1.2.840.114 [id number] [facility] 13:04:09 13:34:09 Visit Dimpi Ramses AMBULATOR 350.1.13.21 College Y 0.2.7.2.686 of [phone] [facility] 310 e 2020-03-27 2020-03-27 Office [place], [place] 1.2.840.114 [id number] 13:04:09 13:34:09 Visit Dimpi Ramses AMBULATOR 350.1.13.21 Y 0.2.7.2.686 [phone] 310 2020-03-24 2020-03-24 Outpatient STLMLC STLMLC [id number] Common 00:00:00 00:00:00 [facility] 2020-03-17 2020-03-17 [facility] [id number] Univers 00:00:00 00:00:00 Sendil Sheyla Cunningham 350.1.13.10 it[place] of [place]2.[place] [phone] [facility] nal [address] [place] [address] 2020-03-17 2020-03-17 Outpatient STLMLC STLMLC [id number] Common 00:00:00 00:00:00 [facility] 2020-03-12 2020-03-12 Outpatient STLMLC STLMLC [id number] Common 00:00:00 00:00:00 [facility] 2020-03-11 2020-03-11 Outpatient STLMLC STLMLC [id number] Common 00:00:00 00:00:00 [facility] 2020-03-03 2020-03-03 Outpatient STLMLC STLMLC [id number] Common 00:00:00 00:00:00 [facility] 2020-02-14 2020-02-14 Outpatient STLMLC STLMLC [id number] Common 00:00:00 00:00:00 [facility] 2020-02-11 2020-02-11 Outpatient STLMLC STLMLC [id number] Common 00:00:00 00:00:00 [facility] 2020-02-08 2020-02-08 Outpatient STLMLC STLMLC [id number] Common 00:00:00 00:00:00 [facility] 2020-02-01 2020-02-01 Outpatient R [facility] [id number] Univers 16:00:00 16:00:00 ity [facility] 2020-02-01 2020-02-01 Nurse Visit, Adc Nurse [facility] 1.2.840.1 [id number] [facility] 07:53:14 08:46:38 Visit [facility]mani [facility] 350.1.13. 10 [facility] [place] [phone] [address] 2020-01-30 2020-01-30 Outpatient STLMLC STLMLC [id number] Common 00:00:00 00:00:00 [facility] 2020-01-29 2020-01-[address] [facility] 1.2.840.114 [id number] Univers 11:10:54 12:45:41 Visit Imani Cunningham 350.1.13.10 ity [facility] 4[place]2.7.2.[place] [phone] Mt dical nal 059 [facility] 2020-01-29 2020-01-29 Outpatient R SALENA [facility] [id number] Univers 11:30:00 11:30:00 SENDIL ity of [facility] 2020-01-29 2020-01-29 Orders Doctor AGUILAR 1.2.840.114 [id number] Univers 00:00:00 00:00:00 Only Unassigned, NICHOLAS 350.1.13.10 [place]2.7.2.686 Ronnie as [phone] [address] 2020-01-23 2020-01-23 Outpatient STLMLC STLMLC [id number] Common 00:00:00 00:00:00 [facility] 2020-01-22 2020-01-22 Outpatient STLMLC STLMLC [id number] Common 00:00:00 00:00:00 [facility] 2020-01-16 2020-01-16 Orders Doctor AGUILAR 1.2.840.114 [id number] Univers 00:00:00 00:00:00 Only Unassigned, NICHOLAS 350.1.13.10 [place].2.686 Ronnie as [phone] [address] 2020-01-15 2020-01-15 Outpatient STLMLC STLMLC [id number] Common 00:00:00 00:00:00 [facility] 2020-01-10 2020-01-[address] [facility] 1.2.100.363 [id number] Univers 00:00:00 00:00:00 Sendil Sheyla Cunningham 350.1.13.10 it[place] [phone] Mt dical nal [address] [place] [address] 2020-01-09 2020-01-09 Outpatient STLMLC STLMLC [id number] Common 00:00:00 00:00:00 [facility] 2020-01-07 2020-01-07 Orders Doctor AGUILAR 1.2.840.114 [id number] Univers 00:00:00 00:00:00 Only Unassigned, NICHOLAS 350.1.13.10 it[place] [facility] 4.2.7.2.686 Ronnie as [phone] [address] 2020-01-07 2020-01-07 Outpatient STLMLC STLMLC [id number] Common 00:00:00 00:00:00 [facility] 2020-01-03 2020-01-[address] [facility] [id number] Univers 11:07:14 12:05:52 Visit Angelina Cunningham 350.1.13.10 i ty [facility] 4[place] [phone] Me dical nal 188 [facility] 2020-01-03 2020-01-03 [facility] [id number] Univers 11:15:00 11:15:00 ANGELINA kirill [facility] 2020-01-01 2020-01-01 [facility] [id number] Univers 15:30:00 15:30:00 [facility] 2019-12-19 2019-12-19 [facility] [id number] Common 16:30:00 16:30:[address] [facility] 2019-12-18 2019-12-18 Out[facility] [id number] Common 13:33:00 13:33:[address] [facility] 2019-12-18 2019-12-18 Laboratory Pc, Adc Echo Room 1 - [facility] 1 .2.840.114 [id number] Univers 09:52:20 11:27:29 Only Imain Martino 350.1.13. 10 ity [facility] 4[place]2.7.2.[place] [phone] Mt dical nal 059 [facility] 2019-12-18 2019-12-18 Outpatient R [facility] [id number] Univers 10:00:00 10:00:00 [facility] 2019-12-13 2019-12-[address] [facility] 1.2.840.114 [id number] Univers 10:43:37 11:48:34 Visit Imani Cunningham 350.1.13.10 ity [place] [phone] [address] 2019-12-13 2019-12-13 Outpatient Tayler MARTINO [facility] [id number] Univers 11:00:00 11:00:00 SENDIL ity [facility] 2019-12-13 2019-12-13 Orders Doctor LAUREN 1.2.840.114 [id number] Univers 00:00:00 00:00:00 Only Unassigned, NICHOLAS 350.1.13.10 it[place] [facility] 4.2.7.2.686 Ronnie as [phone] [address] 2019-12-13 2019-12-[address] [facility] 1.2.840.114 [id number] Univers 00:00:00 00:00:00 Imani Cunningham 350.1.13.10 it[place] [phone] Mt dicmi nal 9 [facility] 2019-12-09 2019-12-09 Out[facility] [id number] Common 17:43:00 17:43:00 [address] [place] [address] [facility] 2019-12-04 2019-12-04 Outpatient Tayler QUINONES [facility] [id number] Univers 13:30:00 13:30:00 ANGELINA howard [facility] 2019-11-26 2019-11-26 Out[facility] [id number] Common 15:17:00 15:17:00 [address] [place] [address] [facility] 2019-11-24 2019-11-24 Outpatient [facility] [id number] Common 15:24:00 15:24:00 [address] [place] [address] [facility] 2019-11-22 2019-11-22 Outpatient [facility] [id number] Common 16:03:00 16:03:00 [address] [place] [address] [facility] 2019-11-19 2019-11-19 Outpatient [facility] [id number] Common 14:35:00 14:35:00 [place] [address] [facility] 2019-11-16 2019-11-16 Outpatient [facility] [id number] Common 09:15:00 09:15:00 [address] [place] [address] [facility] 2019-11-09 2019-11-09 Outpatient SLSL SLSL [id number] SLSL 00:00:00 00:00:00 2019-11-08 2019-11-08 [facility] [id number] Common 09:12:00 09:12:00 [place] [address] [facility] 2019-11-08 2019-11-08 Outpatient SLSL SLSL [id number] SLSL 00:00:00 00:00:00 2019-11-08 2019-11-08 Outpatient EL SLSL [facility]SL [id number] SLSL 00:00:00 00:00:00 2019-11-02 2019-11-02 Outpatient SLSL SLSL [id number] SLSL 00:00:00 00:00:00 2019-11-01 2019-11-01 Outpatient SLSL SLSL [id number] SLSL 00:00:00 00:00:00 2019-11-01 2019-11-01 Outpatient EL SLSL SLSL [id number] SLSL 00:00:00 00:00:00 2019-10-30 2019-10-30 [facility] [id number] Common 17:05:00 17:05:00 [address] [place] [address] [facility] 2019-10-29 2019-10-29 Outpatient [facility] [id number] Common 15:04:00 15:04:00 [address] [place] [address] [facility] 2019-10-29 2019-10-29 Outpatient [facility] [id number] Common 08:06:00 08:06:00 [address] [place] [address] [facility] 2019-10-23 2019-10-[address] [facility] [id number] Univers 15:00:23 15:30:23 Visit Angelina Cunningham 350.1.13.10 i ty [place] [phone] Mt dical nal 377 [facility] 2019-10-23 2019-10-23 [facility] [id number] Univers 15:00:00 15:00:00 ANGELINA howard of [facility] 2019-10-23 2019-10-23 Orders Doctor LAUREN 1.2.840.114 [id number] Univers 00:00:00 00:00:00 Only Unassigned, NICHOLAS 350.1.13.10 [facility] [place] [facility] 4.2.7.2.686 Ronnie as [phone] [address] 2019-10-22 2019-10-22 Outpatient [facility] [id number] Common 12:23:00 12:23:00 [address] [place] [address] [facility] 2019-10-18 2019-10-18 Outpatient [facility] [id number] Common 14:30:00 14:30:00 [place] [address] [facility] 2019-09-20 2019-09-20 Outpatient [facility] [id number] Common 09:00:00 09:00:00 [address] [place] [address] [facility] 2019-09-20 2019-09-20 Orders Doctor LAUREN 1.2.840.114 [id number] Univers 00:00:00 00:00:00 Only Unassigned, NICHOLAS 350.1.13.10 [facility] [place] [facility] 4.2.7.2.686 Ronnie as [phone] [address] 2018-11-28 2018-11-[address] [facility] 1.2.435.432 [id number] Univers 00:00:00 00:00:[facility] 350.1.13.10 it y of Surgical 4.2.7.2.686 Ronnie as Specialti [phone] Mt dical es 198 [facility] 2018-11-27 2018-11-27 Telephone JACKIE Vázquez 1.2.840.114 [id number] Univers 00:00:00 00:00:00 Denys Xtraice 350.1.13.10 it y of Surgical 4.2.7.2.686 Ronnie as Specialti [phone] Mt dical es 198 Rodriguez Cunningham Results Test Description Test Time Test Comments Results Result Comments Source Miscellaneous referral test 2021-09-17 15:05:00 Test Item Value Reference Range Interpretation Comme nts Misc test name (test CUEVAS 79 GMT code = 2566) Misc test result see comment Neuro-Onc E xpanded Panel Result Provided (test code = 1730) diagnosis : Atypical meningioma The following CLINI SHEEBA RELEVANT VARIANT was identified: Gene: NF2DNA Change: c.599+1G>A NO r eportable SEQUENCE VARIANTS were i dentified in theremaining tested genes, i ncluding TERT, TRAF7, AKT1, PIK3CA,PO LR2A, SMO, SMARCB1, KLF4, SMARCE1 and BAP 1. NO reportable FUSIONS/TRANSCR IPT VARIANTS wereidentified involving the tested genes, includin g YAP1. Interpretation ASSOCIATIONS BE TWEEN NF2 MUTATIONS AND MENINGIOMAAppro ximately 33?60% of individuals wit h a meningioma have asomatic mutati on in the NF2 gene (1?4). NF2 encodes ed mira, astructural protein that functions as a tumor suppressor byregulating mu ltiple signaling pathways (e.g. MAPK, PI3 K/AKT,WNT/beta-catenin, hippo). Functio nal loss of NF2 results inaberrant sign aling of these pathways and is implicat ed inmeningioma tumorigenesis. Germline (i.e. inherited) [id number] ar e associated with neurofibromatos is type 2 (5).Among meningiomas, NF 2 mutations have been observedprimari ly in fibrous (fibroblastic) and transitional subtypes as wellas in hi gher grade (atypical and anaplastic) bladimir ors (6, 7). Lessfrequently, NF2 mutations have also been described in radiationinduce dmeningiomas (8?10), and in meningotheli al, secretoryand microcystic sub types (3).Of note, NF2 mutations in me ningiomas can be somatic (i.e.tumor-spec ific mutation in sporadic tumors) or germ line (i.e.inherited mutation in bladimir ors arising in the setting ofNeuro fibromatosis type 2) in origin. Neurofi bromatosis type2-associate d meningiomas harbor an NF2 mutation in mostcases and frequently present during childhood. This test doesnot disting uish between germline and somatic alterat ions.Consider follow-up germline testin g on a blood specimen inconjunction w ith genetic counseling if there is clinic al evidenceand/or family history suggest ing an underlying hereditary canc ersyndrome.Currently, there are no own clinically approved therapies thats pecifically target NF2 mutations. REFGhazala FLORES1. cancer-beta.[facility].ac.uk/CellCentricic; Nucleic Acids Res. 2017 ;45(D1):S154-W485 (PMID 29060963) 2. cbioportal.org (Version 1.5.1) ; Cancer discov. 2012;2(5):401?4 ([id number]); Sci Signal. 2013;6( 269):pl1 (PMID 50234198)3. Liz is DN, Abdoulaye Gaitan ,Nico Cordero , Rachelle, WDonyaK. (Eds). WHOClassificati on of Tumours of the Central Nervous System (Revised 4thedition). [place] RC: Frans[place] 2016.4. Brain Tumor Pathol. O ct 2016;33(4):237?47 (PMID 87413872) 5. [email or web address]. Nature communications. May 18 2017;8:16602 (PMID 48279801) 7. NPJ Genom Med. 2017;2 (PMID 91259484) 8. Int J Cancer. Jan 16 2001;94(2):218? 21 (PMID 77814231)9. Acta Neuropathol. Ju l 2017;134(1):155?8 (PMID 99475573)10. Mylene lemus communications. Nov 05 2017;8(1):186 (PMID 34705450)ADDITI ONAL INFORMATIONMicr oscopic examination was performed by a pathologist toidentify areas of tumor for enrichment by macrodissection . Nextgeneration sequencing was performed to test for the presence ofa mu tation within approximately 9 5% of exonic regions andexon/intron boundaries of the following 118 t argeted genes:ACVR1 (ALK2), AKT1, A KT2, AKT3, APC, ARID1A, ARID2, GREALDO,ATRX , BAP1, BCOR, BCORL1, BRAF, CBL, CDK6 , CDKN2A,CDKN2B, CDKN2C, CHEK2, CIC, CTD NEP1, CTNNB1, DAXX,DDX3X, DNMT3A, EGFR, E ZH2, FGFR1, FGFR2, FGFR3,FUBP1, GL I2, GLI3, GNA11, GNAQ, GNAS, GPS2, H3F 3A,DLJM7B8O, YCNB2C4G, IDH1, IDH2, TERRI 2, KDM5A, KDM5C,KDM6A, KLF4, KMT2B (ML L4), KMT2C (MLL3), KMT2D (MLL2),KRAS, LD B1, LRP1B, LZTR1, MAP2K1, MDM2, MLH1, MSH 2,MSH3, MSH6, MYB, MYBL1, MYC, MYCN, NF1, NF2,NOTCH1, NOTCH2, NRAS, PARP1, PD GFRA, UYY6E2Y,PIK3CA, PIK3R1, PIK3R2, POLE, POLR2A, POT1, PPM1D,VPCGF6T, PTCH1, PTCH2, PTEN, PTPN11, PTPRD, QKI,RAF1, RB1, RELA, RPL5, SDHA, SDH B, SDHC, SDHD, SETD2,SHH, SHOC2, SMARCA4 (BRG1), SMARCB1, SMARCE1, SMO,SOS1, STAG2 , STAT3, SUFU, TCF12, TERT (including promoterregion), TET1, TET2, TP53, TPT E2, TRAF7, TSC1, TSC2, WRN,WT1, YAP1 a nd ZBTB20.Next-generation sequencing was performed to test for thepresence of rearrangements in the following 81 ta rgeted genes,including 104 known gene fusions and 29 known abnormal genetr anscript variants: AFAP1, AGBL4, ATG7, BC AN, BEND2,BIRC5, BRAF, BTBD1, Z70tha70 , S9vhc82, CLCN6, CLIP2,CXXC5, DD X31, DIP2C, EGFR, ELAVL3, ESR1, ETV6, EWS R1,QMG142V, GRQ807S, FGFR1, FGFR3, F LI1, FOXR2, FXR1,FYCO1, GFI1, GFI1B, GL I1, GNAI1, JPX, QFJY8124,NTS923 643, MACF1, MAMLD1, MET, MKRN1, MMP16, M N1,MST1R, MYB, MYBL1, MYC, NAB2, NACC 2, NAV1, NDRG1,NELFE, NFASC, NRF1, NT RK1, NTRK2, NTRK3, PCDHGA1,PCSK5, PDGFRA, PKD1, PRKCA, PTPRZ1, PVT1, Q KI, RAF1,SUNI, RELA, FRU971, SEPT14, UXH72Y2, SLIT1, SRGAP3,GM2UPW8, STAT6, TACC1, TACC3, TFG, TPM3, UBE2 J2, VCL,WHSC1, and YAP1.Mutation n omenclature is based on build GRCh37 (h g19). Fordetails about gene reference transcripts (RefSeq accessionnumber s), specific targeted regions of each gene, andadditional information abo ut this test, seewww.[email or web address].[employer](Test ID NONCP). CLINICA L CORRELATIONSTest results should be interpreted in context of clinical fin dings,tumor sampling, histopathology, and other laboratory data. Ifresults obtained do not match other clinical or laboratoryfindings, please contact the laboratory for possible interpretation. Misinterpretation of results may occ ur if the information providedis [facility] curate or incomplete.This test does not d ifferentiate between somatic and jonas mlinealterations. Additional test ing may be necessary to clarify thesign ificance of results if there is a pote ntial hereditary risk.The presence or abs ence of a mutation or rearrangement m aynot be predictive of response to the rapy in all patients. TECHNICAL LIMIT ATIONSThe DNA mutation portion of the assay has been shown todetect >97% o f single base substitutions, insertions, anddeletions within the repo rtable range of this assay.The RNA f usion portion of the test exhibited 94.2% sensitivity(49/52) in detecting fusio n transcripts (confirmed detection byrev erse transcriptase polymerase ashley n reaction or chromosomalmicr oarray). No fusion transcripts wer e detected in 25 uniquesamples ( 100% specificity compared to chromosomalm icroarray) resulting in an overall conc ordance of 96.1%.This test does not d etect large insertions, deletions, ordu plications or genomic copy number spring iants (such asamplification ).Rare polymorphisms may be present that could lead to falsenegative o r false positive results.A negat vivi (wild-type) result does not rule o ut the presence of amutation or re arrangement that may be present but bel ow thelimits of detection of this assay. The analytical sensitivity of thisassay for sequence reportable alte rations is 15% mutant allelefrequency with a minimum coverage of 100X in a sa mple with?30% tumor content, and fo r rearrangements is a minimumcoverage of 10 targeted fusion reads with 5 un ique fusionmolecules in a sample with ?10 % tumor content.Genes may be added or rem mary based on updated clinicalrelevan ce. See [email or web address](Test ID NONCP) for the most up to date list of genes included inthis test. Additional Information CLI NICAL TRIALSPossible clinical trials of benefit for this patient can bef ound at the following sites:1) ClinicalTrials. gov:www.clinicaltrials.go v/ct2/search/ad vanced2) [facility]: www.[email or web address].[facility]/re search/clinical-trials/3) [facility] [place]: <www.cancer.gov /clinicaltrials/search> REFERENCETRANSC RIPTSequence variant nomenclature is based on the following RefSeqaccession number (build GRCh37 (hg19)):[id number]. Specimen Tissue, Tumor Tissue ID [id number] Released By Linda Yu M.D. Laboratory NotesThis test was developed and its performance cj racteristics determined by [facility] in a manner consistent with CLIA requi rements. This test has not been cleare d orapproved by the U.S. Food and Drug A dministration. Performing [facility] - [address] [address] BEHZAD (test code = [place] TEST ID: NONCP - BEHZAD) 79 GENE MUTATION ANALYSIS- RIGHT BRAIN [id number] (B9)DOS 08/[facility] [id number] 15:05:00 Test Item Value Reference Interpretation Comments Range [facility] [place] test [place] 79 GMT name (test code = 2566) [facility] [place] test see comment Neuro-Onc Expan ded Panel Result result Provided diagno sis: Atypical (test code meningioma The following = 1730) CLINICALLY RELE VANT VARIANT was identified:Gene : NF2DNA Change: c.599+1G>A NO r eportable SEQUENCE VARIAN TS were identified in t heremaining tested genes, i ncluding TERT, TRAF7, AKT1, PI K3CA,POLR2A, SMO, SMARCB1, KLF4, SMARCE1 and BAP1. NO reportable F USIONS/TRANSCRIPT VARIANTS wereid entified involving the t ested genes, including YAP1. Interpretation ASSOCIATIONS BE TWEEN NF2 MUTATIONS AND MENINGIOMAAppro ximately 33?60% of individuals with a meningioma have asomatic m utation in the NF2 gene (1?4). NF2 encodes heather, astruct ural protein that functions as a tumor suppressor byregulating mu ltiple signaling pathways (e.g. MAPK, PI3K/AKT,WNT/be ta-catenin, hippo). Functio nal loss of NF2 results inaberr ant signaling of these pathways and is implicated inmeningioma tu morigenesis. Germline (i.e. inherited) [id number] ar e associated with neurofibromatos is type 2 (5).Among menin giomas, NF2 mutations have been observedprimari ly in fibrous (fibroblastic) and transitional subtypes as wel las in higher grade (atypical and anaplastic) tumors (6, 7). Lessfrequently, NF2 mutations h ave also been described in radiationinduce dmeningiomas (8?10), and in meningothelial, secretoryand mi crocystic subtypes (3).Of note, NF2 mutations in me ningiomas can be somatic (i.e.tu mor-specific mutation in spo radic tumors) or germline (i.e.i nherited mutation in tumors arisi ng in the setting ofNeurofibromat osis type 2) in origin. Neurofi bromatosis type2-associate d meningiomas harbor an NF2 m utation in mostcases and f requently present during childhoo d. This test doesnot disting uish between germline and so matic alterations.Con sifting operator follow-up germline testin g on a blood specimen inconj unction with genetic cruise counselor ing if there is clinical eviden ceand/or family history suggest ing an underlying hereditary cancersyndrome. Currently, there are no known cl inically approved therapies thats pecifically target NF2 muta tions. REFERENCES1. cancer-beta.[facility].ac.uk/cosmic; Nucleic Acids R es. 2017 ;45(D1):D77 7-D783 (PMID [id number])2. cbi oportal.org (Version 1.5.1) ; Cancer discov. 2012;2(5):401?4 ([id number]); Sci Signal. 201 ;6(269):pl1 (PMID 49369026) 3. Mayank BERRIOS, Abdoulaye Gaitan ,Paulie goddard O.D., Rachelle WMaurice. ( Eds). WHOClassificati on of Tumours of the Central Ner vous System (Revised 4thedi tion). IARC: Moody 2016.4. Brain T umor Pathol. Jan 2016;33(4):237? 47 (PMID 43268123)5. [email or web address]. Nature communications. May 18 2017;8:65890 (P MID [id number])7. NPJ Genom Med. 2017;2 (PMID 65654255)8. Int J Cancer. Jan 16 2001;94(2):218? 21 (PMID 31577029)9. Act a Neuropathol. Oct 2016;134(1) :155?8 (PMID 15235121)10. Na ture communications. Nov 05 2017;8(1):186 ( PMID 30879389)ADDITI ONAL INFORMATIONMicr oscopic examination was performed by a pathologist davidghazala salguero areas of tumor for enric hment by macrodissection . Nextgeneration sequencing was performed to test for the presenc e ofa mutation within approxim ately 95% of exonic regions andexon/intron boundaries of t he following 118 targeted genes: ACVR1 (ALK2), AKT1, AKT2, AKT 3, APC, ARID1A, ARID2, GERALDO,ATRX , BAP1, BCOR, BCORL1, BRAF, C BL, CDK6, CDKN2A,CDKN2B, CDKN2C, CHEK2, CIC, CTDNEP1, C TNNB1, DAXX,DDX3X, DNM T3A, EGFR, EZH2, FGFR1, FGFR2, F GFR3,FUBP1, GLI2, GLI3, GNA11, GN AQ, GNAS, GPS2, H3F3A,JEJZ1I5E, AADD4A1B, IDH1, IDH2, JAK2, KDM 5A, KDM5C,KDM6A, KLF4, KMT2B (ML L4), KMT2C (MLL3), KMT2D ( MLL2),KRAS, LDB1, LRP1B, LZTR1, M AP2K1, MDM2, MLH1, MSH2,MSH3 , MSH6, MYB, MYBL1, MYC, MYC N, NF1, NF2,NOTCH1, NOT CH2, NRAS, PARP1, PDGFRA, PMA6T8Q ,PIK3CA, PIK3R1, PIK3R2, POLE, P OLR2A, POT1, PPM1D,SLFRH9T, PTCH1, PTCH2, PTEN, PTPN11, P TPRD, QKI,RAF1, RB1, RELA, RPL5 , SDHA, SDHB, SDHC, SDHD, SET D2,SHH, SHOC2, SMARCA4 (BRG1), SMARCB1, SMARCE1, SMO,SO S1, STAG2, STAT3, SUFU, TCF12, TE RT (including promoterregion) , TET1, TET2, TP53, TPTE2, TR AF7, TSC1, TSC2, WRN,WT1, YAP1 a nd ZBTB20.Next-gen eration sequencing was performed to test for thepresence of rearrangements in the following 81 targeted gen es,including 104 known gene fusi ons and 29 known abnormal genetr anscript variants: AFAP1 , AGBL4, ATG7, BCAN, BEND2,BIR C5, BRAF, BTBD1, Y11pmz11, C8orf 34, CLCN6, CLIP2,CXXC5, DD X31, DIP2C, EGFR, ELAVL3, ESR1, E TV6, EWSR1,UFR143P, LQK187I, FGFR1, FGFR3, FLI1, FO XR2, FXR1,FYCO1, GFI1, GFI1B, GL I1, GNAI1, JPX, JWQS5139,CQX822 643, MACF1, MAMLD1, MET, MK RN1, MMP16, MN1,MST1R, MYB, MYBL1, MYC, NAB2, NACC2, NA V1, NDRG1,NELFE, NFASC, NRF1, NT RK1, NTRK2, NTRK3, PCDHGA1, PCSK5, PDGFRA, PKD1, PRKCA, PT PRZ1, PVT1, QKI, RAF1,SUNI, RELA , JJK383, SEPT14, UKS24Q6, SLIT1, SRGAP3,JO0CGI8, STAT6, TACC1, T ACC3, TFG, TPM3, UBE2J2, VCL,WHS C1, and YAP1.Mutation n omenclature is based on build GRCh37 (hg19). Fordetails abou t gene reference transcripts (Re fSeq accessionnumber s), specific targeted region s of each gene, andadditional i nformation about this test, seewww.Genesant.[employer](Test ID NONCP). CLIN ICAL CORRELATIONSTes t results should be interpreted in context of clinical findin gs,tumor sampling, histo pathology, and other laborator y data. Ifresults obtained do not match other clinical or lab oratoryfindings, please contact the laboratory for possible interpretation. Misinterpretation of results may occur if the information pro videdis inaccurate or i ncomplete.This test does not d ifferentiate between somatic and germlinealterat ions. Additional testing may be necessary to clarify thesign ificance of results if ther e is a potential hereditary risk .The presence or absence of a mu tation or rearrangement m aynot be predictive of r esponse to therapy in all patients. TECHNICAL LIMIT ATIONSThe DNA mutation portio n of the assay has been shown todetect >97% of single base sub stitutions, insertions, and deletions within the reportable range of this assay.The RNA f usion portion of the test exhibi ramonita 94.2% sensitivity(49/ 52) in detecting fusion transcri pts (confirmed detection byrev erse transcriptase p olymerase chain reaction or chromosomalmicr oarray). No fusion transcri pts were detected in 25 [address]es (100% specificity com pared to chromosomalmicr oarray) resulting in an overall c oncordance of 96.1%.This test does not detect large insertion s, deletions, orduplications or genomic copy number variants (such asamplification ).Rare polymorphisms m ay be present that could lead to falsenegative or false positi ve results.A negative (wild- type) result does not rule out th e presence of amutation or re arrangement that may be present but below thelimits of de tection of this assay. The anal ytical sensitivity of thisassay for sequence report able alterations is 15% mutant a llelefrequency with a minimum coverage of 100X in a sample wit h?30% tumor content, and fo r rearrangements is a minimumcov erage of 10 targeted fusion reads with 5 unique fusionmo lecules in a sample with ?10 % tumor content.Genes m ay be added or removed based o n updated clinicalrelevan ce. See www.[email or web address] (H[employer]).com(Test ID NONCP) for the most up to date list of genes i ncluded inthis test. Additiona l Information CLINICAL TRIALS Possible clinical trials of benef it for this patient can bef ound at the following sites :1) ClinicalTrials. gov:www.clinicalt rials.gov/ct2/s earch/advanced2) [facility]: www.[place].[facility]/re search/clinical-t rials/3) [facility] [place]: <www.cancer.gov /clinicaltrials/s earch> REFERENCETRANSC RIPTSequence variant nomencl ature is based on the following R efSeqaccession number (build G RCh37 (hg19)):NF2 [id number]. Spec imen Tissue, Tumor Tissue ID [id number] Released By Katie Yu M.D. Laboratory NotesThis test was developed and its performance characteristics determined by doyle Polk in a manner consiste nt with CLIA requirements. T his test has not been cleared or approved by the U.S. Food and D rug Administration. Performing [facility] - [address] [address] BEHZAD (test [place] TEST ID: code = BEHZAD) NONCP - 79 GENE MUTATION ANALYSIS- RIGHT BRAIN [id number] (B9)DOS 08/19/2021 [facility] [id number] 22:24:00 Test Item Value Reference Range Interpretation Comments POC glucose (test code 125 mg/dL 65-99 H Opera tor Name: = [id number]) John Holloway Emilie ID : [id number] able: PENDING SALE TO [facility] Notified ethnoarchaeology professor Interpretation Abnormal (test code = 62724-1) [facility] [id number] 22:24:00 Test Item Value Reference Range Interpretation Comments POC glucose (test code 125 mg/dL 65-99 H Opera tor Name: = [id number]) Johncarlos Holloway Chenvice ID : [id number] able: PENDING SALE TO [facility] Notified ethnoarchaeology professor Interpretation Abnormal (test code = 63856-7) [place] [address] [id number] 14:47:26 Test Item Value Reference Range Interpretation Comments Ventricular rate (test code = 253) Atrial rate (test code = 255) NJ interval (test code = 266) QRSD interval (test code = 260) QT interval (test code = 264) QTC interval (test code = 265) P axis 1 (test code = 267) QRS axis 1 (test code = 268) T wave axis (test code = 270) EKG impression (test Normal sinus code = 273) rhythm-Normal ECG-In automated comparison with ECG of 24-AUG-2021 00:35,-No significant change was found- [place] [address] [id number] 14:47:26 Test Item Value Reference Range Interpretation Comments Ventricular rate (test code = 253) Atrial rate (test code = 255) NJ interval (test code = 266) QRSD interval (test code = 260) QT interval (test code = 264) QTC interval (test code = 265) P axis 1 (test code = 267) QRS axis 1 (test code = 268) T wave axis (test code = 270) EKG impression (test Normal sinus code = 273) rhythm-Normal ECG-In automated comparison with ECG of 24-AUG-2021 00:35,-No significant change was found- [facility]/ pulse [id number] 16:54:41 Test Item Value Reference Range Interpretation Comments Six Minute Walk Distance (ft) (test Feet code = 7665) Six Minute Walk Distance (m) (test 310 m 292.46-570.46 code = 7614) Six Minute Walk Distance Predicted (test code = 5645) Six Minute Walk Distance % 71.8 % Predicted (test code = 5646) SP02 at Rest (test code = 7617) 95 % SP02 at after 1 minute (test code = 95 % 7630) SP02 at after 2 minutes (test code 93 % = 7636) SP02 at after 3 minutes (test code 96 % = 7642) SP02 at after 4 minutes (test code 96 % = 7648) SP02 at after 5 minutes (test code 96 % = 7654) SP02 at after 6 minutes (test code 97 % = 7660) Heart Rate at Rest (test code = 66 1/min 7615) Heart Rate after 1 minute (test 104 1/min code = 7629) Heart Rate after 2 minutes (test 114 1/min code = 7635) Heart Rate after 3 minutes (test 111 1/min code = 7641) Heart Rate after 4 minutes (test 103 1/min code = 7647) Heart Rate after 5 minutes (test 96 1/min code = 7653) Heart Rate after 6 minutes (test 101 1/min code = 7659) Supplemental O2 During Rest (test 0 L/min code = 7624) Supplemental O2 after 1 minute 0 L/min (test code = 7634) Supplemental O2 after 2 minutes 0 L/min (test code = 7640) Supplemental O2 after 3 minutes 0 L/min (test code = 7646) Supplemental O2 after 4 minutes 0 L/min (test code = 7652) Supplemental O2 after 5 minutes 0 L/min (test code = 7658) Supplemental O2 after 6 minutes 0 L/min (test code = 7664) BP Systolic at Rest (test code = mmHg 7622) BP Systolic after 6 minutes (test mmHg code = 7662) BP Diastolic at Rest (test code = mmHg 7623) BP Diastolic after 6 minutes (test mmHg code = 7663) Telma Dyspnea Scale at Rest (test code = 7619) Telma Dyspnea Scale after 6 minutes (test code = 7661) Lowest SpO2 (test code = 7618) 93 % Highest Heart Rate (test code = BPM 7616) Lap Count (test code = 7625) Premature Stop (test code = 7621) Number of Stops (test code = 7626) Gait Speed (test code = 7627) sec Lap Distance in meters (test code = 40 m 7620) [facility] w/ pulse [id number] 16:54:41 Test Item Value Reference Range Interpretation Comments Six Minute Walk Distance (ft) (test Feet code = 7665) Six Minute Walk Distance (m) (test 310 m 292.46-570.46 code = 7614) Six Minute Walk Distance Predicted (test code = 5645) Six Minute Walk Distance % 71.8 % Predicted (test code = 5646) SP02 at Rest (test code = 7617) 95 % SP02 at after 1 minute (test code = 95 % 7630) SP02 at after 2 minutes (test code 93 % = 7636) SP02 at after 3 minutes (test code 96 % = 7642) SP02 at after 4 minutes (test code 96 % = 7648) SP02 at after 5 minutes (test code 96 % = 7654) SP02 at after 6 minutes (test code 97 % = 7660) Heart Rate at Rest (test code = 66 1/min 7615) Heart Rate after 1 minute (test 104 1/min code = 7629) Heart Rate after 2 minutes (test 114 1/min code = 7635) Heart Rate after 3 minutes (test 111 1/min code = 7641) Heart Rate after 4 minutes (test 103 1/min code = 7647) Heart Rate after 5 minutes (test 96 1/min code = 7653) Heart Rate after 6 minutes (test 101 1/min code = 7659) Supplemental O2 During Rest (test 0 L/min code = 7624) Supplemental O2 after 1 minute 0 L/min (test code = 7634) Supplemental O2 after 2 minutes 0 L/min (test code = 7640) Supplemental O2 after 3 minutes 0 L/min (test code = 7646) Supplemental O2 after 4 minutes 0 L/min (test code = 7652) Supplemental O2 after 5 minutes 0 L/min (test code = 7658) Supplemental O2 after 6 minutes 0 L/min (test code = 7664) BP Systolic at Rest (test code = mmHg 7622) BP Systolic after 6 minutes (test mmHg code = 7662) BP Diastolic at Rest (test code = mmHg 7623) BP Diastolic after 6 minutes (test mmHg code = 7663) Telma Dyspnea Scale at Rest (test code = 7619) Telma Dyspnea Scale after 6 minutes (test code = 7661) Lowest SpO2 (test code = 7618) 93 % Highest Heart Rate (test code = BPM 7616) Lap Count (test code = 7625) Premature Stop (test code = 7621) Number of Stops (test code = 7626) Gait Speed (test code = 7627) sec Lap Distance in meters (test code = 40 m 7620) [facility] [Presence] in Respiratory specimen by FELIPA with probe [id number] 23:48:49 Test Item Value Reference Range Interpretation Comments SARS-CoV-2 (COVID-19) RNA Not detected [Presence] in Respiratory specimen by FELIPA with probe detection (test code = 45400-5) Whether patient is employed in a Unknown healthcare setting (test code = 82337-8) Whether the patient has symptoms Unknown related to condition of interest (test code = 81013-1) Whether the patient was Unknown hospitalized for condition of interest (test code = 04468-5) Whether the patient was admitted Unknown to intensive care unit (ICU) for condition of interest (test code = 13242-7) Whether patient resides in a Unknown congregate care setting (test code = 93352-6) status (test code = Unknown 08641-9) Date and time of symptom onset Unknown (test code = 25006-8) [facility] [id number] 20:53:10 Test Item Value Reference Range Interpretation Comments Case number (test code = [id number]) Surgical pathology See link below for report (test code = PDF Lab Report 1573) Result status (test code This is Final Report = [id number]) [id number] [facility] [id number] 20:53:10 Test Item Value Reference Range Interpretation Comments Case number (test code = [id number]) Surgical pathology See link below for report (test code = PDF Lab Report 2256) Result status (test code This is Final Report = [id number]) [facility] [id number] [facility] RNA [Presence] in Respiratory specimen by FELIPA with probe [id number] 20:28:44 Test Item Value Reference Range Interpretation Comments SARS-CoV-2 (COVID-19) RNA Not detected [Presence] in Respiratory specimen by FELIPA with probe detection (test code = 91095-3) Whether patient is employed in a Unknown healthcare setting (test code = 69940-0) Whether the patient has symptoms Unknown related to condition of interest (test code = 63406-9) Whether the patient was Unknown hospitalized for condition of interest (test code = 27900-8) Whether the patient was admitted Unknown to intensive care unit (ICU) for condition of interest (test code = 34417-2) Whether patient resides in a Unknown congregate care setting (test code = 51655-5) status (test code = Unknown 56094-7) Date and time of symptom onset Unknown (test code = 60295-5) [facility] [id number] 07:40:00 Test Item Value Reference Range Interpretation Comments Urine culture No growth Specimen isolate (test [facility] 74992-3) hours Source: [facility] [id number] 07:40:00 Test Item Value Reference Range Interpretation Comments Urine culture No growth Specimen isolate (test after 24 [facility] code = 64791-4) hours Source: Urin eSpecimen Site: [facility] (COVID-19) RNA [Presence] in Respiratory specimen by FELIPA with probe [id number] 20:09:14 Test Item Value Reference Range Interpretation Comments SARS-CoV-2 (COVID-19) RNA Not detected [Presence] in Respiratory specimen by FELIPA with probe detection (test code = 93085-2) Whether patient is employed in a Unknown healthcare setting (test code = 73601-6) Whether the patient has symptoms Unknown related to condition of interest (test code = 92126-6) Whether the patient was Unknown hospitalized for condition of interest (test code = 00314-3) Whether the patient was admitted Unknown to intensive care unit (ICU) for condition of interest (test code = 20017-6) Whether patient resides in a Unknown congregate care setting (test code = 34740-2) status (test code = Unknown 64202-3) Date and time of symptom onset Unknown (test code = 95660-7) [facility] , [id number] 02:52:00 Test Item Value Reference Range Interpretation Comments test urine, POC (test Negative code = 8174562) Internal QC (test code = 257) QC acceptable [facility] , [id number] 02:52:00 Test Item Value Reference Range Interpretation Comments test urine, POC (test Negative code = 0107035) Internal QC (test code = 257) QC acceptable [facility] RNA [Presence] in Respiratory specimen by FELIPA with probe [id number] 00:32:04 Test Item Value Reference Range Interpretation Comments SARS-CoV-2 (COVID-19) RNA Not detected [Presence] in Respiratory specimen by FELIPA with probe detection (test code = 84456-2) Whether patient is employed in a Unknown healthcare setting (test code = 47131-4) Whether the patient has symptoms Unknown related to condition of interest (test code = 88208-1) Whether the patient was Unknown hospitalized for condition of interest (test code = 80163-1) Whether the patient was admitted Unknown to intensive care unit (ICU) for condition of interest (test code = 19646-6) Whether patient resides in a Unknown congregate care setting (test code = 79602-0) status (test code = Unknown 67462-5) Date and time of symptom onset Unknown (test code = 78883-1) [facility], [id number] 09:03:00 FINAL REPORT PROCEDURE: THYROID SCAN AND UPTAKES CPT CODE: 38178 INDICATION: Hyperthyroidism PROTOCOL: 0.238 mCi of I-123 sodium iodide was administered orally. Thyroid radioiodideuptake was measured approximately 4 and 24 hours later. Anterior and anterior-oblique thyroid imageswere obtained approximately 24 hours after tracer injection. [...] elevated overall iodide uptakes. Signed: [place] [facility] Verified Date/Time: 11/09/2019 09:03:02 Reading Location: [address] [address] Reading Room
[2022-03-23] MEDS ORDERED: FAMOTIDINE 20 MG TAB ONE (22:53)
[2022-03-23] MEDS ORDERED: hydrOXYzine HCL 25 MG TAB ONE (22:53)
[2022-03-23] MEDS ORDERED: predniSONE 20 MG TAB ONE (22:53)
--- NOTE | 2022-03-23 22:54 | ER ---
Nurse's Notes [facility] Name: Skye Figueroa Age: 47 yrs Sex: Female : 1975 Arrival Date: 03/23/2022 Time: 22:30 Bed 19 Private MD: Diagnosis: Rash and other nonspecific skin eruption Presentation: 03/23 22:34 Chief complaint: Patient states: RASH ON UPPER ARMS SINCE THANKSGI. TODAY STARTED jj7 WITH ITCHING AND BURNING. Coronavirus screen: At this time, the client does not indicate any symptoms associated with coronavirus-19. Ebola Screen: No symptoms or risks identified at this time. Onset: The symptoms/episode began/occurred last month. Anaphylaxis evaluation, no signs or symptoms of anaphylaxis were noted. Initial Sepsis Screen: Does the patient meet any 2 criteria? No. Patient's initial sepsis screen is negative. Does the patient have a suspected source of infection? No. Patient's initial sepsis screen is negative. Risk Assessment: Do you want to hurt yourself or someone else? Patient reports no desire to harm self or others. Onset of symptoms is unknown. 22:34 Method Of Arrival: Ambulatory [facility] 22:34 Acuity: NIDA 4 j7 Triage Assessment: 22:39 General: Appears in no apparent distress. comfortable, obese, Behavior is calm, jj7 cooperative, appropriate for age. Pain: Denies pain. Derm: Reports burning, itching, RASH. 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 Historical: - Allergies: 22:39 Iodine; jj7 22:39 Naproxen; jj7 22:39 tramadol; jj7 - PMHx: 22:39 Anxiety; BRAIN TUMOR; graves disease; Hydrocephalus; Migraines; Seizures; jj7 - PSHx: 22:39 Appendectomy; Brain sx; Cholecystectomy; eye sx; QUAHOGGER shunt; jj7 - Immunization history:: Adult Immunizations unknown. - Social history:: Smoking status: Patient denies any tobacco usage or history of. Patient/guardian denies using alcohol, street drugs. Screenin:07 [facility] ED Fall Risk Assessment (Adult) Score/Fall Risk Level 0 - 2 = Low Risk. Liamy as6 Dumpty Scale Fall Assessment Tool (age< 18yrs) Fall Risk Score/ Level Low Fall Risk: </= 11 points. Abuse screen: Denies threats or abuse. Denies injuries from another. Nutritional screening: No deficits noted. Tuberculosis screening: No symptoms or risk factors identified. Fall Risk Total Aburto Fall Scale indicates No Risk (0-24 pts). Assessment: 23:06 General: Appears in no apparent distress. Behavior is calm, cooperative. Pain: Denies as6 pain. Neuro: Level of Consciousness is awake, alert, obeys commands, Oriented to person, place, time, situation. Cardiovascular: Capillary refill < 3 seconds Patient's skin is warm and dry. Respiratory: Respiratory effort is even, unlabored. Derm: Rash noted that is itchy, red, raised, on left bicep. Vital Signs: 22:34 BP 130 / 78; Pulse 66; Resp 20; Temp 98.1; Pulse Ox 98% ; Weight 127.01 kg; Height 5 j7 ft. 4 in. (162.56 cm); Pain 0/10; 22:34 Body Mass Index 48.06 (127.01 kg, 162.56 cm) [facility] ED Course: 22:30 Patient arrived in ED. ja2 22:31 Brett Oliveros, CALEB is Primary Nurse. as6 22:33 Antonieta Ramires MD is Attending Physician. sd2 22:39 Triage completed. jj7 22:39 Arm band placed on right wrist. j7 23:07 Bed in low position. Call light in reach. as6 23:07 No provider procedures requiring assistance completed. Patient did not have IV access as6 during this emergency room visit. Administered Medications: 22:57 Drug: predniSONE 60 mg Route: PO; as6 23:06 Follow up: Response: No adverse reaction as6 22:57 Drug: hydrOXYzine 50 mg Route: PO; as6 23:06 Follow up: Response: No adverse reaction as6 22:57 Drug: Pepcid (famotidine) 20 mg Route: PO; as6 23:06 Follow up: Response: No adverse reaction as6 Medication: 23:07 VIS not applicable for this client. as6 Outcome: 22:54 Discharge ordered by . sd2 23:07 Discharged to home ambulatory, with family. as6 23:07 Condition: stable 23:07 Discharge instructions given to patient, Instructed on discharge instructions, follow up and referral plans. medication usage, Demonstrated understanding of instructions, follow-up care, medications, Prescriptions given X 2. 23:08 Patient left the ED. as6 Signatures: Judi Landry Ashby, RN RN as6 Antonieta Ramires MD MD sd2 Antonette Waldrop RN RN jj7
--- NOTE | 2022-03-23 22:55 | EDPHYS ---
Physician Documentation [facility] Name: Skye Figueroa Age: 47 yrs Sex: Female : 1975 Arrival Date: 03/23/2022 Time: 22:30 Bed 19 Private MD: ED Physician Antonieta Ramires HPI: 03/23 22:49 This 47 yrs old Female presents to ER via Ambulatory with complaints of Allergic sd2 Reaction. 22:49 47 yo F presents with CC of rash to bilateral arms. Reports rash has been present since august when she had a surgery for her brain tumor and had IVs in both arms. Reports the rash just started becoming burning and itching since last night though and was previously only present on the left arm and has now spread to the right arm. Took Benadryl yesterday and today without significant relief. Denies facial, lip or tongue swelling or difficulty breathing. . 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 - Social history:: Smoking status: Patient denies any tobacco usage or history of. Patient/guardian denies using alcohol, street drugs. ROS: 22:49 Constitutional: Negative for fever, chills, and weight loss, Eyes: Negative for injury, sd2 pain, redness, and discharge, ENT: Negative for injury, pain, and discharge, Cardiovascular: Negative for chest pain, palpitations, and edema, Respiratory: Negative for shortness of breath, cough, wheezing. Abdomen/GI: Negative for abdominal pain, nausea, vomiting, diarrhea. Skin: Negative for injury and discoloration, Positive for rash Neuro: Negative for headache, numbness and tingling. Exam: 22:49 Constitutional: This is a well developed, well nourished patient who is awake, alert, sd2 and in no acute distress. Head/Face: Normocephalic, atraumatic. Eyes: EOMI, normal conjunctiva bilaterally Chest/axilla: Normal chest wall appearance and motion. Nontender with no deformity. Cardiovascular: Regular rate and rhythm with a normal S1 and S2. No gallops, murmurs, or rubs. 2+ distal pulses. Respiratory: Lungs have equal breath sounds bilaterally, clear to auscultation and percussion. No rales, rhonchi or wheezes noted. No increased work of breathing, no retractions or nasal flaring. Abdomen/GI: Soft, non-tender, with normal bowel sounds. No guarding or rebound. No evidence of tenderness throughout. Skin: Warm, dry with normal turgor. Erythematous maculopapular rash noted to bilateral arms, mostly to bicep areas with some circular, well circumscribed areas that appear almost as bites. No warmth or induration to suggest infection. MS/ Extremity: Pulses equal, no cyanosis. Neurovascular intact. Full, normal range of motion. Ambulatory without difficulty. Psych: Awake, alert, with orientation to person, place and time. Behavior, mood, and affect are within normal limits. Vital Signs: 22:34 BP 130 / 78; Pulse 66; Resp 20; Temp 98.1; Pulse Ox 98% ; Weight 127.01 kg; Height 5 jj7 ft. 4 in. (162.56 cm); Pain 0/10; 22:34 Body Mass Index 48.06 (127.01 kg, 162.56 cm) jj7 MDM: 22:33 Patient medically screened. sd2 22:49 Differential diagnosis: anaphylaxis, urticaria, contact dermatitis, thrombophlebitis sd2 among others. Data reviewed: vital signs, nurses notes. Counseling: I had a detailed discussion with the patient and/or guardian regarding: the historical points, exam findings, and any diagnostic results supporting the discharge/admit diagnosis, the need for outpatient follow up, to return to the emergency department if symptoms worsen or persist or if there are any questions or concerns that arise at home. Medical screen evaluation completed. [facility] emergency medical condition absent. ED course: Clinical exam consistent with rash without signs of infection or anaphylaxis. Suspect contact dermatitis vs reaction to insect bite. Will treat with allergy medications and discharge home with supportive care. pt comfortable with plan for discharge and outpatient follow up and verbalizes understanding of strict return precautions. . Administered Medications: 22:57 Drug: predniSONE 60 mg Route: PO; as6 23:06 Follow up: Response: No adverse reaction as6 22:57 Drug: hydrOXYzine 50 mg Route: PO; as6 23:06 Follow up: Response: No adverse reaction as6 22:57 Drug: Pepcid (famotidine) 20 mg Route: PO; as6 23:06 Follow up: Response: No adverse reaction as6 Disposition Summary: 03/23/22 22:54 Discharge Ordered Location: Home sd2 Problem: an ongoing problem sd2 Symptoms: have improved sd2 Condition: Stable sd2 Diagnosis - Rash and other nonspecific skin eruption sd2 Followup: sd2 - With: Private Physician - When: 2 - 3 days - Reason: Recheck today's complaints, Continuance of care, Re-evaluation by your physician Discharge Instructions: - Discharge Summary Sheet sd2 - Allergies, Adult sd2 - Rash, Adult sd2 Forms: - Medication Reconciliation Form sd2 - Thank You Letter sd2 - Antibiotic Education sd2 - Prescription Opioid Use sd2 Prescriptions: - Hydroxyzine HCl 25 mg Oral Tablet - take 1 tablet by ORAL route every 6 hours As needed May increase to 2 tablets sd2 if needed; 20 tablet; Refills: 0, Product Selection Permitted - Prednisone 20 mg Oral Tablet - take 2 tablets by ORAL route once daily for 5 days; 10 tablet; Refills: 0, sd2 Product Selection Permitted Signatures: Brett Oliveros RN RN as6 Antonieta Ramires MD MD sd2 Antonette Waldrop RN RN jj7
[2022-03-23 23:14] VITALS: BP 130/78; TEMP 98.1; O2SAT 98
== END 2022-03-23 23:08 | disposition home or self-care (01) ==
LOC: ER 22:24
DX: R21 Rash and other nonspecific skin eruption (principal); Z88.5 Allergy status to narcotic agent; Z91.048 Other nonmedicinal substance allergy status; Z98.2 Presence of cerebrospinal fluid drainage device
CPT/HCPCS: 99283; J7512

== ENCOUNTER 2022-04-21 14:40 | Emergency (ER) | payer OTHER ==
--- OUTSIDE RECORDS SUMMARY | 2022-04-21 14:49 | XMS REPORT | Continuity of Care Document ---
:1975 Author Organization [facility] Address [address] [place] [address] Care Team Providers Name Role Phone Cal DANG [facility] Primary Care Physician [phone] [facility] Attending Clinician Unavailable IAMNI MARTINO K.H. Attending Clinician Unavailable Salena HAHN, Imani K.H. Attending Clinician Doctor Unassigned, [place] Attending Clinician Unavailable Katherine BROOKS, Kathryn Velasquez Attending Clinician [phone] Alonso Herrera MD Attending Clinician Gopi ELLIS, Norman Mckay Attending Clinician Unavailable Carol ELLIS, Shila Attending Clinician Unavailable Acacia Lewis MD Attending Clinician Joel Warren MD Attending Clinician [phone] Fredi Schmid MD Attending Clinician Lauren Francois MD Attending Clinician Richelle Lowry MD Attending Clinician Wilma HAHN, Alex Cordova Attending Clinician Mendez ELLIS, Rupinder Attending Clinician Unavailable FANNIE BRAMBILA Attending Clinician Unavailable Rayo PAC, Fannie Cooper Attending Clinician Travon HAHN, Pratibha Pearce Attending Clinician Visit, Adc Nurse Attending Clinician Unavailable Joni HAHN, Angelina Attending Clinician ANGELINA BEAR Attending Clinician Unavailable , Adc Echo Room 1 - Attending Clinician Unavailable Ismael Meyers Attending Clinician Denys Vázquez MD Attending Clinician ACACIA LEWIS Admitting Clinician Unavailable FREDI SCHMID Admitting Clinician Unavailable FANNIE BRAMBILA Admitting Clinician Unavailable Payers Payer Name Policy Type Policy Number Effective Date Expiration Date Kenneth hunter [place] [address] [id number] 2019 Common HEALTHCARE 00:00:00 [facility] - [facility] [id number] 2019 PLAN 00:00:00 Problems Condition Condition Condition [...] vers varicella varicella 6-29 ity of 00:00: [place] [address] Medical Branch Excessive Excessive Disease Active Uni vers or or 6-21 ity of frequent frequent 00:00: [place] menstruati menstruati 00 Me dical on on Branch Knee pain, Knee pain, Disease Active U nivers left left 4-05 ity of 00:00: [place] [facility] Knee pain, Knee pain, Disease Active U nivers left left 4-05 ity of 00:00: [place] [facility] Subclinica Subclinica Problem C ommon l l [id number] Allergic Problem Commo n rhinitis, Spirit unspecifie - [facility]I d [facility], Medical unspecifie Center d trigger [id number] Morbid Problem Commo n 9104 (severe) Spirit obesity - CHI due to [facility] [id number] Hyperthyro Problem Com mon idism Spirit - [facility] Laboratory Abnormal Problem Com mon test laboratory Spirit result test - [facility] abnormal [facility] Graves Graves Problem Common disease disease Spirit - [facility] 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 - CHI placement [facility] [id number] Mixed Problem Common hyperlipid Spirit emia [facility] 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 [facility] [id number] Migraine Problem Comm on without [facility] aura and - CHI without [facility] migrainosu Medica l s, not Center intractabl e [id number] Abnormal Problem Comm on mammogram Spirit of left - CHI breast [facility] [id number] Body mass Problem Com mon index [facility] (BMI) - CHI 45.0-49.9, [facility] [id number] Essential Problem Comm on hypertensi Spirit on [facility] [id number] MARYBETH Problem Common (generaliz Spirit ed anxiety - CHI disorder) [facility] [id number] Insomnia, Problem Com mon unspecifie Spirit d type - [facility] No known No known Disease [facility] r active active College problems problems of Medicin e Allergies, Adverse Reactions, Alerts Allergy Allergy Status Severity Reaction(s) Onset Inactive Treating Comm ents Source Name Type Date Date Clinician PECAN DRUG Active High Anaphylaxis Unive rs NUT INGREDI 09-09 ity of 00:00: [place] 00 Medical Branch Pecan Propensi Active Anaphylaxis Uni vers Nut ty to 09-09 ity of adverse 00:00: [place] reaction 00 Medical s Branch Pecan Propensi Active Anaphylaxis Met hodi Nut ty to 09-09 st adverse 00:00: Hospita reaction 00 l s to drug IODINE DRUG Active Med Rash Univers INGREDI 5-09 ity of 00:00: [place] 00 Medical Branch Iodine Propensi Active Rash 2021-0 Univers ty to 08-10 ity of adverse 00:00: [place] reaction 00 Medical s Branch Iodine Propensi Active Rash 2021-0 Methodi ty to 08-10 st adverse 00:00: Hospita reaction 00 l s to drug NAPROXEN DRUG Active Hives 2021-0 Univers INGREDI 08-08 ity of 00:00: [place] 00 Medical Branch Naproxen Propensi Active Hives 2021-0 Univer s ty to 08-08 ity of adverse 00:00: [place] reaction 00 Medical s Branch Naproxen Propensi Active Hives 2021-0 Method i ty to 08-08 st adverse 00:00: Hospita reaction 00 l s to drug Tramadol Propensi Active Hives 2021-0 Method i ty to 08-08 st adverse 00:00: Hospita reaction 00 l s to drug Tramadol Propensi Active [facility]uc[facility] ty to ns 8-14 ity of adverse 00:00: [place] reaction 00 Medical s Branch TRAMADOL DRUG Active Hallucinates 2014- Un vale INGREDI 8-14 ity of 00:00: [place] 00 Medical Branch Tramadol Propensi Active Hallucinatio 2014-0 [facility] ty to ns 8-14 College adverse 00:00: of reaction 00 Medicin s to e drug Social History Social Habit Start Date Stop Date Quantity Comments Source History of Common Spirit - Tobacco Use [facility] History [facility] ge of Alcohol Std Medicine Drinks History [facility] ge of Alcohol Binge Medicine Exposure to 2022-04-02 2022-04-12 Not sure University of SARS-CoV-2 00:00:00 07:44:00 [facility] (event) Branch Alcohol intake 2021-08-26 2021-08-26 Ex-drinker [employer] 00:00:00 00:00:00 (finding) Hospital Tobacco use and 2021-08-08 2021-08-08 Smokeless tobacco [facility] exposure 00:00:00 00:00:00 non-user Hospital History [facility] 2019-11-22 2019-11-22 3 [facility] ge of Alcohol Frequency 00:00:00 00:00:00 Medicin e Sex [birth year] [employer] 00:00:00 00:00:00 Hospital Smoking Status Start Date Stop Date Source Never Smoker [facility] Medications Ordered Filled Start Stop Current Ordering Indication Dosage Frequency Signature Comments Components Source Medication Medication Date Date Medication? Clinician (SIG) Name Name Pregabalin Pregabalin 2021-04 No Pregabalin 75 MG 75 MG 2-19 75 MG 00:00: 00 Pregabalin Pregabalin 2021-04 No Pregabalin 75 MG 75 MG 2-19 75 MG 00:00: 00 propranoloL 2021-04- No 10mg Take 10 mg Univers 10 mg 2-14 12-14 by mouth 2 ity of tablet 15:56: 00:00 (two) [place] 39 :00 times Medical daily. [place] propranoloL 2021-04 No 10mg Take 10 mg Univers 10 mg 2-14 12-14 by mouth 2 ity of tablet 15:56: 00:00 (two) [place] 39 :00 times Medical daily. [place] Macrobid Macrobid 2021- No BID Macrobid 100 MG 100 MG 8-12 08-17 100 MG 00:00: 00:00 00 :00 diazePAM 2021- No Take 1 tab Me thodi (Valium) 5 6-28 07-19 (5mg) 60[address] [facility] MG tablet 00:00: 04:59 prior to Hos florencio 00 :00 MRI for l anxiety, may repeat up to one dose every 30m as needed diazePAM 2021- No Take 1 tab Me thodi (Valium) 5 6-28 07-19 (5mg) 60[address] [facility] MG tablet 00:00: 04:59 prior to Hos florencio 00 :00 MRI for l anxiety, may repeat up to one dose every 30m as needed diazePAM 2021- No Take 1 tab Me thodi (Valium) 5 6-28 07-19 (5mg) 60m [facility] MG tablet 00:00: 04:59 prior to Hos florencio 00 :00 MRI for l anxiety, may repeat up to one dose every 30m as needed Pregabalin Pregabalin No Pregabalin 75 MG 75 MG 6-22 75 MG 00:00: 00 Pregabalin Pregabalin No Pregabalin 75 MG 75 MG 6-22 75 MG 00:00: 00 Pregabalin Pregabalin 2-0 No Pregabalin 75 MG 75 MG 6-22 75 MG 00:00: 00 Pregabalin Pregabalin 2022-0 No Pregabalin 75 MG 75 MG 6-22 75 MG 00:00: 00 acetaminoph 2021- No [id number] 1{tbl} Q6H Take 1 Methodi en-codeine -[address] (TYLENOL 00:00: 04:59 mouth Hospita WITH 00 :00 every 6 l CODEINE #3) (six) 300-30 mg hours as per tablet needed for moderate pain for up to 10 days .acute pain. acetaminoph 2021- [place] [id number] 1{tbl} Q6H Take 1 Methodi en-codeine -09-[address] (TYLENOL 00:00: 04:59 mouth Hospita WITH 00 :00 every 6 l CODEINE #3) (six) 300-30 mg hours as per tablet needed for moderate pain for up to 10 [place] [id number] 1{tbl} Q6H Take 1 Methodi en-codeine 09-[address] (TYLENOL 00:00: 04:59 mouth [...] 00 :00 by mouth l daily. sertraline 2021-0 2022- No 50mg QD Take 1 Meth shay (ZOLOFT) 50 09-10-10 tablet (50 s t MG tablet 00:00: 04:59 mg total) Ho spita 00 :00 by mouth l daily. sertraline 2021-2022- No 50mg QD Take 1 Meth shay (ZOLOFT) 50 09-10-10 tablet (50 s t MG tablet 00:00: 04:59 mg total) Ho spita 00 :00 by mouth l daily. hydroCHLORO 2022-0 Yes 25mg QD Take 25 mg Methodi thiazide 6-[address] (HYDRODIURI 20:07: daily. Hosp isael L) 25 MG 00 l tablet hydroCHLORO 2022-0 Yes 25mg QD Take 25 mg Methodi thiazide 6-[address] (HYDRODIURI 20:07: daily. Hosp isael L) 25 MG 00 l tablet hydroCHLORO 2022-0 Yes 25mg QD Take 25 mg Methodi [...] mouth 2 (two) times a day. levETIRAcet 2021-2022- No 500mg Q.5D Take 1 Me thodi am (KEPPRA) -11 07- tablet st 500 MG 00:00: 04:59 (500 mg Hospita tablet 00 :00 total) by l mouth 2 (two) times a day. levETIRAcet 2021-2022- No 500mg Q.5D Take 1 Me thodi am (KEPPRA) 09-[address] 500 MG 00:00: 04:59 (500 mg Hospita tablet 00 :00 total) by l mouth 2 (two) times a day. dexamethaso 2022-0 2022- No 2mg Q.5D Take 1 Met hodi ne 09-09-16 tablet (2 st (DECADRON) 00:00: 04:59 mg total) H ospita 2 MG tablet 00 :00 by mouth l every 12 (twelve) hours for 7 days. dexamethaso 2022-0 2022- No 2mg Q.5D Take 1 Met hodi ne 09-09-16 tablet (2 st (DECADRON) 00:00: 04:59 mg total) H ospita 2 MG tablet 00 :00 by mouth l every 12 (twelve) hours for 7 days. dexamethaso 2-0 2022- No 2mg Q.5D Take 1 Met hodi ne 09-0916 tablet (2 st (DECADRON) 00:00: 04:59 mg total) H ospita 2 MG tablet 00 :00 by mouth l every 12 (twelve) hours for 7 days. SERTraline 2021-0 Yes 100mg Take 100 Un vale 100 mg 4-21 mg by ity of tablet 13:25: mouth [place] 20 daily. Medical Branch sertraline 2021-0 Yes Take by Univ ers HCl (ZOLOFT 4-21 mouth. ity of ORAL) 13:25: [place] 20 Medical Branch SERTraline 2021-0 Yes 100mg Take 100 Un vale 100 mg 4-21 mg by ity of tablet 13:25: mouth [place] 20 daily. Medical Branch sertraline 2021-0 Yes Take by Univ ers HCl (ZOLOFT 4-21 mouth. ity of ORAL) 13:25: [place] 20 Medical Branch SERTraline 2021-0 Yes 100mg Take 100 Un vale 100 mg 4-21 mg by ity of tablet 13:25: mouth [place] 20 daily. Medical Branch sertraline 2021-0 Yes Take by Univ ers HCl (ZOLOFT 4-21 mouth. ity of ORAL) 13:25: [place] 20 Medical Branch SERTraline 2021-0 Yes 100mg Take 100 Un vale 100 mg 4-21 mg by ity of tablet 13:25: mouth [place] 20 daily. Medical Branch sertraline 2021-0 Yes Take by Univ ers HCl (ZOLOFT 4-21 mouth. ity of ORAL) 13:25: [place] [address] Medical Branch SERTraline 2021-0 Yes 100mg Take 100 Un vale 100 mg 4-21 mg by ity of tablet 13:25: mouth [place] 20 daily. Medical Branch sertraline 2021-0 Yes Take by Univ ers HCl (ZOLOFT 4-21 mouth. ity of ORAL) 13:25: [place] [address] Medical Branch SERTraline 2021-0 Yes 100mg Take 100 Un vale 100 mg 4-21 mg by ity of tablet 13:25: mouth [place] 20 daily. Medical Branch sertraline 2021-0 Yes Take by Univ ers HCl (ZOLOFT 4-21 mouth. ity of ORAL) 13:25: [place] [address] Medical Branch SERTraline 2021-0 Yes 100mg Take 100 Un vale 100 mg 4-21 mg by ity of tablet 13:25: mouth [place] 20 daily. Medical Branch sertraline 2021-0 Yes Take by Univ ers HCl (ZOLOFT 4-21 mouth. ity of ORAL) 13:25: [place] [address] Medical Branch sumatriptan 2021-0 Yes Take by Uni vers succ/naprox 4-21 mouth as ity of en sod 13:23: needed. [place] (SUMATRIPTA 09 Medical N-NAPROXEN Branch ORAL) propranoloL 2021-0 Yes 10mg Take 10 mg Univers 10 mg 4-21 by mouth 2 ity of tablet 13:23: (two) [place] 09 times Medical daily. Branch sumatriptan 2021-0 Yes Take by Uni vers succ/naprox 4-21 mouth as ity of en sod 13:23: needed. [place] (SUMATRIPTA 09 Medical N-NAPROXEN Branch ORAL) propranoloL 2-0 Yes 10mg Take 10 mg Univers 10 mg 4-21 by mouth 2 ity of tablet 13:23: (two) [place] 09 times Medical daily. Branch sumatriptan 2021-0 Yes Take by Uni vers succ/naprox 4-21 mouth as ity of en sod 13:23: needed. [place] (SUMATRIPTA 09 Medical N-NAPROXEN Branch ORAL) propranoloL 2-0 Yes 10mg Take 10 mg Univers 10 mg 4-21 by mouth 2 ity of tablet 13:23: (two) [place] 09 times Medical daily. Branch sumatriptan 2021-0 Yes Take by Uni vers succ/naprox 4-21 mouth as ity of en sod 13:23: needed. [place] (SUMATRIPTA 09 Medical N-NAPROXEN Branch ORAL) propranoloL 0 Yes 10mg Take 10 mg Univers 10 mg 4-21 by mouth 2 ity of tablet 13:23: (two) [place] 09 times Medical daily. Branch sumatriptan 2021-0 Yes Take by Uni vers succ/naprox 4-21 mouth as ity of en sod 13:23: needed. [place] (SUMATRIPTA 09 Medical N-NAPROXEN Branch ORAL) sumatriptan 2021-0 Yes Take by Uni vers succ/naprox 4-21 mouth as ity of en sod 13:23: needed. [place] (SUMATRIPTA 09 Medical N-NAPROXEN Branch ORAL) sumatriptan 2021-0 Yes Take by Uni vers succ/naprox 4-21 mouth as ity of en sod 13:23: needed. [place] (SUMATRIPTA 09 Medical N-NAPROXEN Branch ORAL) Lyrica 75 Lyrica 75 No 1{capsu QD [...] MG 00:00: 00 Lyrica 75 Lyrica 75 2022-0 No 1{capsu QD Lyrica 75 MG MG [...] 2022- No 1{table BID Amoxicilli -Pot -Pot 2-03 02-10 t} n-Pot Clavulanate Clavulanate 00:00: 00:00 Clavulanat [...] 1-23 75 MG 00:00: 00 Rocephin Rocephin 2-0 No 1g Commo n (Ceftriaxon (Ceftriaxon 1-03 S pirit e) e) 00:00: - CHI 00 [facility] Rocephin Rocephin 2-0 No 1g Commo n (Ceftriaxon (Ceftriaxon 1-03 S pirit e) e) 00:00: - CHI 00 [facility] Rocephin Rocephin 2-0 No 1g Commo n (Ceftriaxon (Ceftriaxon 1-03 S pirit e) e) 00:00: - CHI 00 [facility] Rocephin Rocephin 2-0 No 1g Commo n (Ceftriaxon (Ceftriaxon 1-03 S pirit e) e) 00:00: - CHI 00 [facility] Rocephin Rocephin 2-0 No 1g Commo n (Ceftriaxon (Ceftriaxon 1-03 S pirit e) e) 00:00: - CHI 00 [facility] Rocephin Rocephin 2-0 No 1g Commo n (Ceftriaxon (Ceftriaxon 1-03 S pirit e) e) 00:00: - CHI 00 [facility] Rocephin Rocephin 2-0 No 1g Commo n (Ceftriaxon (Ceftriaxon 1-03 S pirit e) e) 00:00: - CHI 00 [facility] Rocephin Rocephin 2-0 No 1g Commo n (Ceftriaxon (Ceftriaxon 1-03 S pirit e) e) 00:00: - CHI 00 [facility] Rocephin Rocephin 2-0 No 1g Commo n (Ceftriaxon (Ceftriaxon 1-03 S pirit e) e) 00:00: - CHI 00 [facility] Rocephin Rocephin 2-0 No 1g Commo n (Ceftriaxon (Ceftriaxon 1-03 S pirit e) e) 00:00: - CHI 00 [facility] Rocephin Rocephin 2-0 No 1g Commo n (Ceftriaxon (Ceftriaxon 1-03 S pirit e) e) 00:00: - CHI 00 [facility] Rocephin Rocephin 2-0 No 1g Commo n (Ceftriaxon (Ceftriaxon 1-03 S pirit e) e) 00:00: - CHI 00 [facility] Rocephin Rocephin 2-0 No 1g Commo n (Ceftriaxon (Ceftriaxon 1-03 S pirit e) e) 00:00: - CHI 00 [facility] Rocephin Rocephin 2-0 No 1g Commo n (Ceftriaxon (Ceftriaxon 1-03 S pirit e) e) 00:00: - CHI 00 [facility] Sulfamethox Sulfamethox 2-0 2022- No 1{table BID azole-Trime azole-Trime 04-06 t} thoprim thoprim 00:00: 00:00 800-160 MG 800-160 MG 00 :00 Sulfamethox Sulfamethox 2-0 2022- No 1{table BID Sulfametho azole-Trime azole-Trime 04-06 t} xazole-Tri thoprim thoprim 00:00: 00:00 methoprim 800-160 MG 800-160 MG 00 :00 800-160 MG Sulfamethox Sulfamethox 2022-0 2022- No 1{table BID Sulfametho azole-Trime azole-Trime 04-06 t} xazole-Tri thoprim thoprim 00:00: 00:00 methoprim 800-160 MG 800-160 MG 00 :00 800-160 MG sertraline 2020-2021- No 25mg QD Take 25 mg [facility] (ZOLOFT) 25 05-[address] MG tablet 00:00: 00:00 daily. Hospi ta 00 :00 l sertraline 2020-2021- No 25mg QD Take 25 mg [facility] (ZOLOFT) 25 05-05-[address] MG tablet 00:00: 00:00 daily. Hospi ta 00 :00 l sertraline 2020-04- No 25mg QD Take 25 mg [facility] (ZOLOFT) 25 2-[address] MG tablet 00:00: 00:00 daily. Hospi ta 00 :00 l ondansetron 2020-04 Yes [id number] 4mg Take 1 Univers (ZOFRAN 1-08 tablet by ity of ODT) 4 mg 00:00: mouth [place] disintegrat 00 every 8 Medic al ing tablet (eight) Branch hours as needed for Nausea and Vomiting (N/V). meclizine 2020-04 Yes [id number] 25mg Take 1 Un vale 25 mg 1-08 tablet by ity of tablet 00:00: mouth [place] 00 every 6 Medical (six) Branch hours. naproxen 2020-04 Yes [id number] 500mg Take 1 Un vale (NAPROSYN) 1-08 tablet by ity of 500 mg 00:00: mouth 2 [place] tablet 00 (two) Medical times Branch daily with meals. methocarbam 2020-04 Yes [id number] 500mg Take 1 Univers oL 500 mg 1-08 tablet by ity o f tablet 00:00: mouth 4 [place] 00 (four) Medical times Branch daily as needed for Pain (scale 4-6). ondansetron 2020-04 Yes [id number] 4mg Take 1 Univers (ZOFRAN 1-08 tablet by ity of ODT) 4 mg 00:00: mouth [place] disintegrat 00 every 8 Medic al ing tablet (eight) Branch hours as needed for Nausea and Vomiting (N/V). meclizine 2020-04 Yes [id number] 25mg Take 1 Un vale 25 mg 1-08 tablet by ity of tablet 00:00: mouth [place] 00 every 6 Medical (six) Branch hours. naproxen 2020-04 Yes [id number] 500mg Take 1 Un vale (NAPROSYN) 1-08 tablet by ity of 500 mg 00:00: mouth 2 [place] tablet 00 (two) Medical times Branch daily with meals. methocarbam 2020-04 Yes [id number] 500mg Take 1 Univers oL 500 mg 1-08 tablet by ity o f tablet 00:00: mouth 4 [place] 00 (four) Medical times Branch daily as needed for Pain (scale 4-6). ondansetron 2020-04 Yes [id number] 4mg Take 1 Univers (ZOFRAN 1-08 tablet by ity of ODT) 4 mg 00:00: mouth [place] disintegrat 00 every 8 Medic al ing tablet (eight) Branch hours as needed for Nausea and Vomiting (N/V). meclizine 2020-04 Yes [id number] 25mg Take 1 Un vale 25 mg 1-08 tablet by ity of tablet 00:00: mouth [place] 00 every 6 Medical (six) Branch hours. naproxen 2020-04 Yes [id number] 500mg Take 1 Un vale (NAPROSYN) 1-08 tablet by ity of 500 mg 00:00: mouth 2 [place] tablet 00 (two) Medical times Branch daily with meals. methocarbam 2020-04 Yes [id number] 500mg Take 1 Univers oL 500 mg 1-08 tablet by ity o f tablet 00:00: mouth 4 [place] 00 (four) Medical times Branch daily as needed for Pain (scale 4-6). ondansetron 2020-04 Yes [id number] 4mg Take 1 Univers (ZOFRAN 1-08 tablet by ity of ODT) 4 mg 00:00: mouth [place] disintegrat 00 every 8 Medic al ing tablet (eight) Branch hours as needed for Nausea and Vomiting (N/V). meclizine 2020-04 Yes [id number] 25mg Take 1 Un vale 25 mg 1-08 tablet by ity of tablet 00:00: mouth [place] 00 every 6 Medical (six) Branch hours. naproxen 2020-04 Yes [id number] 500mg Take 1 Un vale (NAPROSYN) 1-08 tablet by ity of 500 mg 00:00: mouth 2 [place] tablet 00 (two) Medical times Branch daily with meals. methocarbam 2020-04 Yes [id number] 500mg Take 1 Univers oL 500 mg 1-08 tablet by ity o f tablet 00:00: mouth 4 [place] 00 (four) Medical times Branch daily as needed for Pain (scale 4-6). ondansetron 2020-04 Yes [id number] 4mg Take 1 Univers (ZOFRAN 1-08 tablet by ity of ODT) 4 mg 00:00: mouth [place] disintegrat 00 every 8 Medic al ing tablet (eight) Branch hours as needed for Nausea and Vomiting (N/V). meclizine 2020-04 Yes [id number] 25mg Take 1 Un vale 25 mg 1-08 tablet by ity of tablet 00:00: mouth [place] 00 every 6 Medical (six) Branch hours. naproxen 2020-04 Yes [id number] 500mg Take 1 Un vale (NAPROSYN) 1-08 tablet by ity of 500 mg 00:00: mouth 2 [place] tablet 00 (two) Medical times Branch daily with meals. methocarbam 2020-04 Yes [id number] 500mg Take 1 Univers oL 500 mg 1-08 tablet by ity o f tablet 00:00: mouth 4 [place] 00 (four) Medical times Branch daily as needed for Pain (scale 4-6). ondansetron 2020-04 Yes [id number] 4mg Take 1 Univers (ZOFRAN 1-08 tablet by ity of ODT) 4 mg 00:00: mouth [place] disintegrat 00 every 8 Medic al ing tablet (eight) Branch hours as needed for Nausea and Vomiting (N/V). meclizine 2020-04 Yes [id number] 25mg Take 1 Un vale 25 mg 1-08 tablet by ity of tablet 00:00: mouth [place] 00 every 6 Medical (six) Branch hours. naproxen 2020-04 Yes [id number] 500mg Take 1 Un vale (NAPROSYN) 1-08 tablet by ity of 500 mg 00:00: mouth 2 [place] tablet 00 (two) Medical times Branch daily with meals. methocarbam 2020-04 Yes [id number] 500mg Take 1 Univers oL 500 mg 1-08 tablet by ity o f tablet 00:00: mouth 4 [place] 00 (four) Medical times Branch daily as needed for Pain (scale 4-6). ondansetron 2020-04 Yes [id number] 4mg Take 1 Univers (ZOFRAN 1-08 tablet by ity of ODT) 4 mg 00:00: mouth [place] disintegrat 00 every 8 Medic al ing tablet (eight) Branch hours as needed for Nausea and Vomiting (N/V). meclizine 2020-04 Yes [id number] 25mg Take 1 Un vale 25 mg 1-08 tablet by ity of tablet 00:00: mouth [place] 00 every 6 Medical (six) Branch hours. naproxen 2020-04 Yes [id number] 500mg Take 1 Un vale (NAPROSYN) 1-08 tablet by ity of 500 mg 00:00: mouth 2 [place] tablet 00 (two) Medical times Branch daily with meals. methocarbam 2020-04 Yes [id number] 500mg Take 1 Univers oL 500 mg 1-08 tablet by ity o f tablet 00:00: mouth 4 [place] 00 (four) Medical times Branch daily as needed for Pain (scale 4-6). HYDROCHLORO 2020-04 Yes 10mg Take 10 mg Univers THIAZIDE 0-26 by mouth ity of ORAL 08:48: daily. [address] pregabalin 2020-04 Yes Take by [employer] [facility] (LYRICA 0-26 mouth ity of ORAL) 08:48: daily. [address] montelukast 2020-04 Yes 10mg Take 10 mg Univers 10 mg 0-26 by mouth ity of tablet 08:48: daily. [address] HYDROCHLORO 2020-04 Yes 10mg Take 10 mg Univers THIAZIDE 0-26 by mouth ity of ORAL 08:48: daily. [address] pregabalin 2020-04 Yes Take by [employer] [facility] (LYRICA 0-26 mouth ity of ORAL) 08:48: daily. [address] montelukast 2020-04 Yes 10mg Take 10 mg Univers 10 mg 0-26 by mouth ity of tablet 08:48: daily. [address] HYDROCHLORO 2020-04 Yes 10mg Take 10 mg Univers THIAZIDE 0-26 by mouth ity of ORAL 08:48: daily. [address] pregabalin 2020-04 Yes Take by [employer] [facility] (LYRICA 0-26 mouth ity of ORAL) 08:48: daily. [address] montelukast 2020-04 Yes 10mg Take 10 mg Univers 10 mg 0-26 by mouth ity of tablet 08:48: daily. [address] HYDROCHLORO 2020-04 Yes 10mg Take 10 mg Univers THIAZIDE 0-26 by mouth ity of ORAL 08:48: daily. [address] pregabalin 2020-04 Yes Take by Univ ers (LYRICA 0-26 mouth ity of ORAL) 08:48: daily. [address] montelukast 2020-04 Yes 10mg Take 10 mg Univers 10 mg 0-26 by mouth ity of tablet 08:48: daily. [address] HYDROCHLORO 2020-04 Yes 10mg Take 10 mg Univers THIAZIDE 0-26 by mouth ity of ORAL 08:48: daily. [address] pregabalin 2020-04 Yes Take by Univ ers (LYRICA 0-26 mouth ity of ORAL) 08:48: daily. [address] montelukast 2020-04 Yes 10mg Take 10 mg Univers 10 mg 0-26 by mouth ity of tablet 08:48: daily. [address] HYDROCHLORO 2020-04 Yes 10mg Take 10 mg Univers THIAZIDE 0-26 by mouth ity of ORAL 08:48: daily. [address] pregabalin 2020-04 Yes Take by Univ ers (LYRICA 0-26 mouth ity of ORAL) 08:48: daily. [address] montelukast 2020-04 Yes 10mg Take 10 mg Univers 10 mg 0-26 by mouth ity of tablet 08:48: daily. [address] HYDROCHLORO 2020-04 Yes 10mg Take 10 mg Univers THIAZIDE 0-26 by mouth ity of ORAL 08:48: daily. [address] pregabalin 2020-04 Yes Take by Univ ers (LYRICA 0-26 mouth ity of ORAL) 08:48: daily. [address] montelukast 2020-04 Yes 10mg Take 10 mg Univers 10 mg 0-26 by mouth ity of tablet 08:48: daily. [address] Lyrica 75 Lyrica 75 No 1{capsu [...] MG 00:00: 00 Lyrica 75 Lyrica 75 No 1{capsu QD Lyrica 75 MG MG 9-08 le} MG 00:00: 00 propranoloL 2020-2021- No 10mg Q.5D Take 10 mg [facility] (INDERAL) 08-09-08 by mouth 2 [facility] 10 MG 00:00: 00:00 (two) [facility]osp[facility] tablet 00 :00 times a l day. propranoloL 2021- No 10mg Q.5D Take 10 mg [facility] (INDERAL) 08-09-[address] 10 MG 00:00: 00:00 (two) [facility]ospita tablet 00 :00 times a l day. propranoloL 2021- No 10mg Q.5D Take 10 mg [facility] (INDERAL) 08-09-[address] 10 MG 00:00: 00:00 (two) Hospita tablet 00 :00 times a l day. methIMAzole 2019-04 Yes 10mg Take 1 Univ ers 10 mg 2-29 tablet by ity of tablet 00:00: mouth. [address] methIMAzole 2019-04 Yes 10mg Take 1 Univ ers 10 mg 2-29 tablet by ity of tablet 00:00: mouth. [place] [facility] methIMAzole 2019-04 Yes 10mg Take 1 Univ ers 10 mg 2-29 tablet by ity of tablet 00:00: mouth. [place] [facility] methIMAzole 2019-04 Yes 10mg Take 1 Univ ers 10 mg 2-29 tablet by ity of tablet 00:00: mouth. [place] [facility] methIMAzole 2019-04- No 10mg Take 1 Uni vers 10 mg 2-29 12-14 tablet by ity of tablet 00:00: 00:00 mouth. [place] 00 :00 [facility] methIMAzole 2019-04- No 10mg Take 1 Uni vers 10 mg 2-29 12-14 tablet by ity of tablet 00:00: 00:00 mouth. [place] 00 :00 [facility] methazolAMI 2019-04 Yes 50mg Take 50 mg Yared DE 50 MG 2-24 by mouth College TABS 19:13: daily. of 25 Medicin e Pregabalin 2019-04 Yes Take by [facility] (LYRICA OR) 2-24 mouth. Colleg e 19:13: of 10 Medicin e zolpidem 2019-04 Yes 5mg Take 5 mg [facility] (AMBIEN) 5 2-24 by mouth Colle ge MG tablet 19:13: nightly as of 10 needed for Medicin Sleep. e montelukast 2019- Yes 10mg Take 10 mg Yared (SINGULAIR) 2-24 by mouth Mayra ege 10 MG 19:13: daily. of tablet 10 Medicin e propranolol 2019- Yes 10mg Take 10 mg [facility] (INDERAL) 2-24 by mouth [facility] e 10 MG 19:13: two times of tablet 10 daily. Medicin e methimazole 2019-0 Yes [id number] 15mg Take 1.5 [facility] (TAPAZOLE) 9-14 Tabs by [facility] 10 MG 00:00: mouth of tablet 00 daily. Medicin e Propranolol Propranolol 2019-0 Yes Sunil 1 tablet Common HCl HCl 9-10 [facility] 00:00: - [facility] 00 [facility] atenolol 2019-0 Yes 50mg Take 2 [facility] (TENORMIN) 9-09 Tabs by Rahatg e 25 MG 00:00: mouth of tablet 00 daily. Medicin e Ondansetron Ondansetron 2019-0 Yes Sunil 1 tablet Common 8-18 [facility] 00:00: tongue and - [facility] Medical prior to Center meals Ondansetron Ondansetron 2019-0 No TID Ondansetro 4 MG 4 MG 8-18 n 4 MG 00:00: 00 Ondansetron Ondansetron 2019-0 No TID Ondansetro 4 MG 4 MG 8-18 n 4 MG 00:00: 00 Ondansetron Ondansetron 2019-0 No TID Ondansetro 4 [...] 00:00: daily. Hospi ta 00 l montelukast 2020-0 Yes 10mg QD Take 10 mg [facility] (SINGULAIR) 4-[address] 10 mg 00:00: daily. Hospita tablet 00 l montelukast 2020-0 Yes 10mg QD Take 10 mg [facility] (SINGULAIR) 4-[address] 10 mg 00:00: daily. Hospita tablet 00 l montelukast 0 Yes 10mg QD Take 10 mg [facility] (SINGULAIR) 4- by mouth st 10 mg 00:00: daily. Hospita tablet 00 l SUMAtriptan Yes 50mg Take 50 mg [facility] (IMITREX) [address] 50 MG 00:00: once [...] not exceed 200 mg in 24 hours. Carito Arzate Yes Sunil 1 tablet Commo n [facility] at bedtime [facility] as needed - [facility] Sumatriptan Sumatriptan Yes Sunil 1 tablet Common Succinate Succinate [facility] as needed [facility] Methimazole Methimazole Yes Sunil 3 tablet Common [facility] Yes Sunil 1 tablet Common Sodium Sodium [facility] Lyrica Lyrica Yes Sunil 1 capsule Comm on [facility] Hydrochloro Hydrochloro Yes Sunil 1 tablet Common thiazide thiazide [facility] in the [facility] it morning [facility] SUMAtriptan SUMAtriptan No SUMAtripta Succinate Succinate [...] Othiazide MG MG e_morni 25 MG ng} Sertraline Sertraline No Sertraline HCl 100 MG [...] t} t Sodium MG MG 10 MG methIMAzole methIMAzole No methIMAzol 10 MG 10 MG e 10 MG Lyrica 75 Lyrica 75 No 1{capsu QD Lyrica 75 MG MG le} MG SUMAtriptan SUMAtriptan No SUMAtripta Succinate Succinate n 50 MG 50 MG Succinate 50 MG hydroCHLORO hydroCHLORO No hydroCHLOR thiazide 25 thiazide 25 Othiazide MG MG 25 MG Montelukast Montelukast No Montelukas Sodium 10 Sodium 10 t Sodium MG MG 10 MG levETIRAcet levETIRAcet No 1{table BID levETIRAce am 500 MG am 500 MG t} howe 500 MG Sertraline Sertraline No Sertraline HCl 100 [...] t} t Sodium MG MG 10 MG methIMAzole methIMAzole No methIMAzol 10 MG 10 MG e 10 MG Lyrica 75 Lyrica 75 No 1{capsu QD Lyrica 75 MG MG le} MG SUMAtriptan SUMAtriptan No SUMAtripta Succinate Succinate n 50 MG 50 MG Succinate 50 MG hydroCHLORO hydroCHLORO No hydroCHLOR thiazide 25 thiazide 25 Othiazide MG MG 25 MG Montelukast Montelukast No Montelukas Sodium 10 Sodium 10 t Sodium MG MG 10 MG levETIRAcet levETIRAcet No 1{table BID levETIRAce am 500 MG am 500 MG t} howe 500 MG Immunizations Ordered Filled Immunization Date Status Comments Sour e Immunization Name Name Influenza Virus 2020-04-01 Completed [facility]it [facility] of Vaccine Quad .5 mL 00:00:00 [facility] 6+ [place] Influenza Virus 2020-04-01 Completed Universit y of Vaccine Quad .5 mL 00:00:00 [facility] 6+ [place] Branch Influenza Virus 2020-04-01 Completed Universit y of Vaccine Quad .5 mL 00:00:00 [facility] 6+ MO Branch Influenza Virus 2020-04-01 Completed Universit y of Vaccine Quad .5 mL 00:00:00 [facility] 6+ MO Branch Influenza Virus 2020-04-01 Completed Universit y of Vaccine Quad .5 mL 00:00:00 [facility] 6+ MO Branch Influenza Virus 2020-04-01 Completed Universit y of Vaccine Quad .5 mL 00:00:00 [facility] 6+ MO Branch Influenza Virus 2020-04-01 Completed Universit y of Vaccine Quad .5 mL 00:00:00 [facility] 6+ MO Branch TDAP (ADACEL) 2019-10-03 Completed University of VACCINE 00:00:00 [facility] TDAP (ADACEL) 2019-10-03 Completed University of VACCINE 00:00:00 [facility] TDAP (ADACEL) 2019-10-03 Completed University of VACCINE 00:00:00 [facility] TDAP (ADACEL) 2019-10-03 Completed University of VACCINE 00:00:00 [facility] TDAP (ADACEL) 2019-10-03 Completed University of VACCINE 00:00:00 [facility] TDAP (ADACEL) 2019-10-03 Completed University of VACCINE 00:00:00 [facility] TDAP (ADACEL) 2019-10-03 Completed [facility] VACCINE 00:00:00 [facility] Vital Signs Vital Name Observation Time Observation Value Comments Source Systolic blood 2022-03-17 21:36:00 115 mm[Hg] Univer sity of pressure [facility] Diastolic blood 2022-03-17 21:36:00 69 mm[Hg] Unive rsity of pressure [facility] Heart rate 2022-03-17 21:36:00 76 /min Universi ty [facility] Body height 2022-03-17 21:36:00 162.6 cm Universi ty [facility] Body weight 2022-03-17 21:36:00 133.176 kg Universi [facility] BMI 2022-03-17 21:36:00 50.40 kg/m2 [facility] Oxygen saturation in 2022-03-17 21:36:00 95 /min [facility] blood by [facility] Pulse oximetry Branch height 2021-11-13 16:20:00 64 [in_i] [facility] weight 2021-11-13 16:20:00 305.3 [lb_av] [facility] temperature 2021-11-13 16:20:00 97.3 [degF] [facility] bmi 2021-11-13 16:20:00 52.4 kg/m2 [facility] oximetry 2021-11-13 16:20:00 95 % [facility] respiratory rate 2021-11-13 16:20:00 18 /min Comm on [facility] blood pressure 2021-11-13 16:20:00 129 mm[Hg] Common [facility] - systolic [facility] blood pressure 2021-11-13 16:20:00 67 mm[Hg] Common [facility] - diastolic [facility] height 2021-09-30 09:20:00 64 [in_i] [facility] weight 2021-09-30 09:20:00 314.3 [lb_av] [facility] temperature 2021-09-30 09:20:00 97.2 [degF] Common S pirit [facility] bmi 2021-09-30 09:20:00 53.94 kg/m2 [facility] oximetry 2021-09-30 09:20:00 93 % Common [facility] respiratory rate 2021-09-30 09:20:00 16 /min Comm on [facility] blood pressure 2021-09-30 09:20:00 132 mm[Hg] Common [facility] - systolic [facility] blood pressure 2021-09-30 09:20:00 67 mm[Hg] Common [facility] - diastolic [facility] height 2021-05-07 13:50:00 64 [in_i] Common [facility] weight 2021-05-07 13:50:00 287.7 [lb_av] [facility] temperature 2021-05-07 13:50:00 97.2 [degF] Common S [facility] bmi 2021-05-07 13:50:00 49.38 kg/m2 [facility] oximetry 2021-05-07 13:50:00 94 % [facility] respiratory rate 2021-05-07 13:50:00 16 /min Comm on [facility] blood pressure 2021-05-07 13:50:00 136 mm[Hg] Common [facility] - systolic [facility] blood pressure 2021-05-07 13:50:00 76 mm[Hg] Common [facility] - diastolic [facility] height 2021-04-06 16:00:00 64 [in_i] [facility] weight 2021-04-06 16:00:00 286.0 [lb_av] [facility] temperature 2021-04-06 16:00:00 97.6 [degF] Common S pirit [facility] bmi 2021-04-06 16:00:00 49.09 kg/m2 Common S pirit - [facility] oximetry 2021-04-06 16:00:00 97 % Common S [facility] respiratory rate 2021-04-06 16:00:00 17 /min Comm on [facility] blood pressure 2021-04-06 16:00:00 127 mm[Hg] Common [facility] - systolic [facility] blood pressure 2021-04-06 16:00:00 62 mm[Hg] Common [facility] - diastolic [facility] height 2020-12-10 10:20:00 64 [in_i] Common [facility] weight 2020-12-10 10:20:00 288.7 [lb_av] [facility] temperature 2020-12-10 10:20:00 97.5 [degF] Common [facility] bmi 2020-12-10 10:20:00 49.55 kg/m2 Common [facility] oximetry 2020-12-10 10:20:00 93 % Common [facility] respiratory rate 2020-12-10 10:20:00 17 /min Comm on [facility] blood pressure 2020-12-10 10:20:00 124 mm[Hg] Common [facility] - systolic [facility] blood pressure 2020-12-10 10:20:00 68 mm[Hg] Common [facility] - diastolic [facility] Systolic blood 2020-03-27 19:08:00 118 mm[Hg] [facility] Medicine Diastolic blood 2020-03-27 19:08:00 74 mm[Hg] [facility] Medicine Heart rate 2020-03-27 19:08:00 60 /min [facility] Respiratory rate 2020-03-27 19:08:00 18 /min [facility] Body height 2020-03-27 19:08:00 162.6 cm [facility] Body weight 2020-03-27 19:08:00 130.999 kg [facility] BMI 2020-03-27 19:08:00 49.57 kg/m2 [facility] Systolic blood 2020-03-27 19:08:00 118 mm[Hg] [facility] pressure Medicine Diastolic blood 2020-03-27 19:08:00 74 mm[Hg] [facility] Medicine Heart rate 2020-03-27 19:08:00 60 /min [facility] Respiratory rate 2020-03-27 19:08:00 18 /min [facility] Body height 2020-03-27 19:08:00 162.6 cm [facility] Body weight 2020-03-27 19:08:00 130.999 kg [facility] BMI 2020-03-27 19:08:00 49.57 kg/m2 [facility] Systolic blood 2021-09-09 22:24:07 133 mm[Hg] [facility] pressure Diastolic blood 2021-09-09 22:24:07 65 mm[Hg] [facility] pressure Heart rate 2021-09-09 22:24:07 62 /min [facility] Body temperature 2021-09-09 22:24:07 36.28 Tegan [facility] Respiratory rate 2021-09-09 22:24:07 18 /min [facility] Oxygen saturation in 2021-09-09 22:24:07 96 /min [facility] Arterial blood by Pulse oximetry Body weight 2021-09-02 08:51:[address] [facility] BMI 2021-09-02 08:51:24 51.80 kg/m2 [facility] Body height 2021-08-27 02:47:[address] [facility] Procedures Procedure Date / Time Performing Clinician Source Performed HB ECG ROUTINE & RHYTHM 2022-03-17 21:43:30 Imani Martino [facility] CONSENT/REFUSAL FOR 2022-03-17 21:23:03 Doctor Unassigned, [facility] DIAGNOSIS AND TREATMENT [facility] MRI HEAD EXTERNAL STUDY 2021-10-19 15:25:00 Alonso Herrera [facility] POC GLUCOSE 2021-09-09 22:23:00 Acacia Lewis [facility] POC GLUCOSE 2021-09-09 17:43:00 Joglekar, Acacia [facility] POC GLUCOSE 2021-09-09 12:46:00 Joglekar, Acacia [facility] POC GLUCOSE 2021-09-09 02:10:00 Joglekar, Acacia [facility] POC GLUCOSE 2021-09-08 22:50:00 Joglekar, Acacia [facility] POC GLUCOSE 2021-09-08 18:35:00 Joglekar, Acacia [facility] POC GLUCOSE 2021-09-08 13:10:00 Joglekar, Acacia [facility] POC GLUCOSE 2021-09-08 02:28:00 Joglekar, Acacia [facility] POC GLUCOSE 2021-09-07 23:10:00 Joglekar, Acacia [facility] POC GLUCOSE 2021-09-07 17:46:00 Joglekar, Acacia [facility] POC GLUCOSE 2021-09-07 13:20:00 Joglekar, Acacia [facility] POC GLUCOSE 2021-09-07 02:07:00 Joglekar, Acacia [facility] POC GLUCOSE 2021-09-06 23:51:00 Joglekar, Acacia [facility] POC GLUCOSE 2021-09-06 17:26:00 Joglekar, Acacia [facility] POC GLUCOSE 2021-09-06 13:13:00 Joglekar, Acacia [facility] POC GLUCOSE 2021-09-06 02:43:00 Joglekar, Acacia [facility] POC GLUCOSE 2021-09-05 23:55:00 Joglekar, Acacia [facility] POC GLUCOSE 2021-09-05 17:41:00 Joglekar, Acacia [facility] POC GLUCOSE 2021-09-05 13:45:00 Joglekar, Acacia [facility] ECG 12-LEAD 2021-09-05 05:50:02 Joglekar, Acacia [facility] POC GLUCOSE 2021-09-05 03:25:00 Joglekar, Acacia [facility] POC GLUCOSE 2021-09-05 01:53:00 Joglekbenji, Acacia [facility] POC GLUCOSE 2021-09-04 23:28:00 Joglekar, Acacia [facility] POC GLUCOSE 2021-09-04 17:44:00 Joglekbenji, Acacia [facility] SIX MINUTE WALK W/ PULSE 2021-09-04 16:54:41 Acacia Lewis [facility] OXIMETRY POC GLUCOSE 2021-09-04 13:27:00 Joglekbenji, Acacia [facility] POC GLUCOSE 2021-09-04 02:14:00 Joglekar, Acacia [facility] POC GLUCOSE 2021-09-03 23:15:00 Joglekar, Acacia [facility] POC GLUCOSE 2021-09-03 17:35:00 Joglekar, Acacia [facility] POC GLUCOSE 2021-09-03 13:29:00 Joglekar, Acacia [facility] POC GLUCOSE 2021-09-03 03:43:00 Joglekar, Acacia [facility] POC GLUCOSE 2021-09-02 22:37:00 Joglekar, Acacia [facility] POC GLUCOSE 2021-09-02 17:32:00 Joglekar, Acacia [facility] POC GLUCOSE 2021-09-02 13:55:00 Joglekar, Acacia [facility] POC GLUCOSE 2021-09-02 02:06:00 Joglekar, Acacia [facility] POC GLUCOSE 2021-09-01 22:59:00 Joglekar, Acacia [facility] XR ABDOMEN 1 VW PORTABLE 2021-09-01 21:44:00 [facility] AND 2021-09-01 17:49:00 Daphney Brown [facility] DIFFERENTIAL COMPREHENSIVE METABOLIC 2021-09-01 17:49:00 Daphney Brown [facility] PANEL ESTIMATED GFR 2021-09-01 17:49:00 Daphney Brown Ho spital POC GLUCOSE 2021-09-01 17:31:00 JoglekarAcacia Ho spital POC GLUCOSE 2021-09-01 13:36:00 Joglekar, Acacia [facility] POC GLUCOSE 2021-09-01 01:58:00 Joglekbenji, Acacia [facility] POC GLUCOSE 2021-08-31 23:12:00 JoglekShane leblancati [facility] POC GLUCOSE 2021-08-31 17:21:00 JoglekAcacia leblanc [facility] POC GLUCOSE 2021-08-31 13:08:00 JoglekarAcacia [facility] POC GLUCOSE 2021-08-31 01:41:00 JoglekarAcacia [facility] POC GLUCOSE 2021-08-30 23:36:00 JoglekarAcacia [facility] POC GLUCOSE 2021-08-30 17:36:00 JoglekAcacia leblanc [facility] POC GLUCOSE 2021-08-30 13:15:00 JoglekAcacia leblanc Ho spital POC GLUCOSE 2021-08-30 02:00:00 JoglekAcacia leblanc Ho spital POC GLUCOSE 2021-08-29 23:05:00 JoglekarAcacia Ho spital POC GLUCOSE 2021-08-29 17:57:00 JoglekarAcacia Ho spital POC GLUCOSE 2021-08-29 13:41:00 JoglekAcacia leblanc Ho spital POC GLUCOSE 2021-08-29 01:29:00 JoglekAcacia leblanc Ho spital POC GLUCOSE 2021-08-28 22:55:00 JoglekarAcacia Ho spital POC GLUCOSE 2021-08-28 17:23:00 JoglekarAcacia [facility] POC GLUCOSE 2021-08-28 13:45:00 JoglekAcacia leblanc [facility] POC GLUCOSE 2021-08-28 01:28:00 JoglekAcacia leblanc Ho spital COVID-19 QUALITATIVE 2021-08-27 22:41:00 Acacia Lewis [facility] RT-PCR POC GLUCOSE 2021-08-27 22:33:00 Shane Lewisati [facility] POC GLUCOSE 2021-08-27 17:33:00 Joglekar, Acacia [facility] POC GLUCOSE 2021-08-27 12:35:00 Joglekbenji, Acacia [facility] POC GLUCOSE 2021-08-27 02:48:00 Joglekbenji, Acacia [facility] POC GLUCOSE 2021-08-26 22:44:00 Joglekar, Acacia [facility] POC GLUCOSE 2021-08-26 16:43:00 JoglekarAcacia [facility] POC GLUCOSE 2021-08-26 13:42:00 JoglekarAcacia [facility] POC GLUCOSE 2021-08-26 01:50:00 Joglekbenji, Acacia [facility] POC GLUCOSE 2021-08-25 23:14:00 JoglekAcacia leblanc [facility] COVID-19 QUALITATIVE 2021-08-25 21:42:00 Andrews [facility] RT-PCR POC GLUCOSE 2021-08-25 17:35:00 JoglekAcacia leblanc [facility] POC GLUCOSE 2021-08-25 12:51:00 JoglekAcacia leblanc [facility] POC GLUCOSE 2021-08-24 21:45:00 Joglekbenji, Acacia [facility] POC GLUCOSE 2021-08-24 16:30:00 JoglekAcacia leblanc [facility] POC GLUCOSE 2021-08-24 13:01:00 JoglAcacia carrasco Ho spital XR CHEST 1 VW PORTABLE 2021-08-24 06:11:07 Justice [facility] ECG 12-LEAD 2021-08-24 05:35:00 Justice [facility] TROPONIN T 2021-08-24 05:14:00 Justice [facility] B NATRIURETIC PEPTIDE 2021-08-24 05:14:00 Zoie Rendon [facility] D-DIMER 2021-08-24 05:14:00 Justice [facility] POC GLUCOSE 2021-08-24 01:34:00 Acacia Lewis [facility] POC GLUCOSE 2021-08-23 22:13:00 JoAcacia rivera [facility] POC GLUCOSE 2021-08-23 16:50:00 Joglekbenji, Acacia [facility] POC GLUCOSE 2021-08-23 12:50:00 Acacia Lewis [facility] POC GLUCOSE 2021-08-23 02:07:00 Posani, Richelle [facility] POC GLUCOSE 2021-08-22 22:43:00 Posani, Richelle [facility] POC GLUCOSE 2021-08-22 16:45:00 Posani, Richelle [facility] POC GLUCOSE 2021-08-22 12:29:00 Posani, Richelle [facility] XR SKULL < 4 VW 2021-08-22 04:41:17 Jacky, Mary Jane [facility] POC GLUCOSE 2021-08-22 00:46:00 Posani, Richelle [facility] POC GLUCOSE 2021-08-21 22:41:00 Posani, Richelle [facility] POC GLUCOSE 2021-08-21 16:36:00 Posani, Richelle [facility] POC GLUCOSE 2021-08-21 13:46:00 Posani, Richelle [facility] BASIC METABOLIC PANEL 2021-08-21 09:48:00 [facility] CBC WITH PLATELET AND 2021-08-21 09:48:00 [facility] DIFFERENTIAL PHOSPHORUS LEVEL 2021-08-21 09:48:00 [facility] MAGNESIUM LEVEL 2021-08-21 09:48:00 [facility] ospital IONIZED CALCIUM 2021-08-21 09:48:00 [facility] ospital ESTIMATED GFR 2021-08-21 09:48:00 [facility] ospital MRI BRAIN W WO CONTRAST 2021-08-21 04:00:00 [facility] POC GLUCOSE 2021-08-21 01:14:00 Richelle Lowry spital POC GLUCOSE 2021-08-20 20:59:00 Richelle Lowry spital IR EPIDURAL BLOOD PATCH 2021-08-20 19:49:00 Bren [facility] [place] POC GLUCOSE 2021-08-20 16:26:00 Richelle Lowry spital POC GLUCOSE 2021-08-20 12:21:00 Richelle Lowry spital POC GLUCOSE 2021-08-20 09:12:00 PosRichelle james spital POC GLUCOSE 2021-08-20 05:11:00 Richelle Lowry spital BASIC METABOLIC PANEL 2021-08-20 04:57:00 [facility] WITH PLATELET AND 2021-08-20 04:57:00 Essence [facility] DIFFERENTIAL THYROID STIMULATING 2021-08-20 04:57:00 Giorgio [facility] HORMONE [facility] T4, FREE 2021-08-20 04:57:00 Giorgio [facility] Liong ESTIMATED GFR 2021-08-20 04:57:00 Richelle Lowry spital MAGNESIUM LEVEL 2021-08-20 04:57:00 Richelle Lowry spital PHOSPHORUS LEVEL 2021-08-20 04:57:00 Richelle Lowry ospital IONIZED CALCIUM 2021-08-20 04:57:00 Richelle Lowry spital POC GLUCOSE 2021-08-20 01:05:[address] HEAD WO CONTRAST 2021-08-19 22:19:25 [facility] 2021-08-19 20:28:13 Alex Dillon spital Art MISCELLANEOUS REFERRAL 2021-08-19 19:31:00 Richelle Lowry [facility] TEST SURGICAL PATHOLOGY 2021-08-19 19:31:00 Essence [facility] REQUEST URINE CULTURE 2021-08-19 17:20:00 Richelle Lowry spital [place] AN ELECTIVE 2021-08-19 17:02:00 Alex Dillon spital ENDOTRACHEAL AIRWAY Art CRANIOTOMY 2021-08-19 16:44:00 Alonso Herrera [facility] XR SKULL < 4 VW 2021-08-19 15:03:00 CorreiaLauren spital [place] POC GLUCOSE 2021-08-19 12:52:00 PosRichelle james spital POC GLUCOSE 2021-08-19 00:22:00 PosRichelle james spital COVID-19 QUALITATIVE 2021-08-18 21:40:00 [facility] RT-PCR [place] ABO AND RH CONFIRMATION 2021-08-18 20:31:00 [facility] BY PROTOCOL [place] PARTIAL THROMBOPLASTIN 2021-08-18 16:57:00 [facility] TIME (PTT) [place] PROTHROMBIN TIME WITH INR 2021-08-18 16:57:00 [facility] [place] TYPE AND SCREEN 2021-08-18 16:57:00 [facility] coty Salvador MRI BRAIN W WO CONTRAST 2021-08-18 15:18:00 [facility] [place] POC GLUCOSE 2021-08-18 13:28:00 PosRichelle james spital CBC WITH PLATELET AND 2021-08-18 10:06:00 [facility] DIFFERENTIAL [place] POC GLUCOSE 2021-08-17 22:14:00 PosRichelle james spital POC GLUCOSE 2021-08-17 18:05:00 PosRichelle james spital POC GLUCOSE 2021-08-17 14:36:00 PosRichelle james spital TTE COMPLETE, W CONTRAST, 2021-08-17 13:00:00 Essence [facility] W DOPPLER ([id number]) CBC WITH PLATELET AND 2021-08-17 10:27:00 [facility] DIFFERENTIAL [place] TROPONIN T 2021-08-17 10:27:00 Richelle Lowry spital BASIC METABOLIC PANEL 2021-08-17 10:27:00 Poserika [facility] ESTIMATED GFR 2021-08-17 10:27:00 PosRichelle james Ho spital ECG 12-LEAD 2021-08-17 05:20:42 Poserika, Richelle [facility] spital POC GLUCOSE 2021-08-17 03:20:00 Posani, Richelle [facility] spital POC GLUCOSE 2021-08-16 22:56:00 Posani, Richelle [facility] POC GLUCOSE 2021-08-16 17:38:00 Posani, Richelle [facility] spital POC GLUCOSE 2021-08-16 13:51:00 Posani, Richelle [facility]ital CBC WITH PLATELET AND 2021-08-16 10:14:00 Lauren Correia [facility] DIFFERENTIAL [place] BASIC METABOLIC PANEL 2021-08-16 10:14:00 Poserika [facility] ESTIMATED GFR 2021-08-16 10:14:00 PosRichelle james spital B NATRIURETIC PEPTIDE 2021-08-16 04:37:00 [facility] TROPONIN T 2021-08-16 04:37:00 [facility] D-DIMER 2021-08-16 04:37:00 [facility] ECG 12-LEAD 2021-08-16 04:34:46 [facility] POC GLUCOSE 2021-08-16 02:27:00 PosRichelle james Ho spital POC GLUCOSE 2021-08-15 23:05:00 PosRichelle james Ho spital BASIC METABOLIC PANEL 2021-08-15 21:03:00 Poserika [facility] ESTIMATED GFR 2021-08-15 21:03:00 PosRichelle james Ho spital POC GLUCOSE 2021-08-15 18:03:00 Posani, Richelle [facility]cleod [facility] spital POC GLUCOSE 2021-08-15 13:24:00 Posani, Richelle [facility]cleod [facility] spital POC GLUCOSE 2021-08-15 02:11:00 Posani, Richelle [facility]cleod [facility] spital POC GLUCOSE 2021-08-14 22:57:00 Posani, Richelle [facility] spital POC GLUCOSE 2021-08-14 17:36:00 Posani, Richelle Mckeonist Ho spital POC GLUCOSE 2021-08-14 13:23:00 Posani, Richelle Mckeonist Ho spital POC GLUCOSE 2021-08-14 01:21:00 Posani, Richelle Mckeonist Ho spital POC GLUCOSE 2021-08-13 22:46:00 Posani, Richelle Mckeonist Ho spital POC GLUCOSE 2021-08-13 17:17:00 Posani, Richelle Mcleod Ho spital POC GLUCOSE 2021-08-13 13:06:00 Posani, Richelle Mckeonist Ho spital URINE CULTURE 2021-08-13 13:02:00 Charli Wang spital URINE DRUGS OF ABUSE 2021-08-13 10:52:00 [facility] SCREEN URINALYSIS SCREEN AND 2021-08-13 10:52:00 [facility] MICROSCOPY, WITH REFLEX TO CULTURE HEMOGLOBIN A1C 2021-08-13 09:13:00 [facility] spital LIPID PANEL 2021-08-13 09:13:00 [facility]ASMA 2021-08-13 09:13:00 [facility] FOLATE LEVEL 2021-08-13 09:13:00 [facility] VITAMIN B12 LEVEL 2021-08-13 09:13:00 [facility] THYROID STIMULATING 2021-08-13 09:13:00 [facility] HORMONE T4, FREE 2021-08-13 09:13:00 [facility] SEDIMENTATION RATE 2021-08-13 09:13:00 [facility] C-REACTIVE PROTEIN 2021-08-13 09:13:00 [facility] PROTHROMBIN TIME WITH INR 2021-08-13 09:13:00 [facility] PARTIAL THROMBOPLASTIN 2021-08-13 09:13:00 [facility] TIME (PTT) HIV 1/2 ANTIGEN/ANTIBODY, 2021-08-13 09:13[facility]00 [facility], WITH REFLEXES SYPHILIS TREPONEMA SCREEN 2021-08-13 09:13:00 [facility] CONFIRMATION (REVERSE ALGORITHM) POC GLUCOSE 2021-08-13 03:11:00 Lauren Francois spital POC GLUCOSE 2021-08-12 23:38:00 [facility] TROPONIN T 2021-08-11 18:20:00 [facility] THYROID STIMULATING 2021-08-11 18:20:00 [facility] T4, FREE 2021-08-11 18:20:00 [facility] ECG 12-LEAD 2021-08-11 17:05:13 Lauren Francois spital MRI THORACIC SPINE W WO 2021-08-10 14:20:00 [facility] CONTRAST MRI LUMBAR SPINE W WO 2021-08-10 13:30:00 [facility] CONTRAST MRI CERVICAL SPINE W WO 2021-08-10 12:45:00 [facility] CONTRAST ZZCOVID-19 ANTI-SPIKE IGG 2021-08-10 08:20:00 [facility] ANTIBODY TITER Terry CBC WITH PLATELET AND 2021-08-10 08:20:00 [facility] DIFFERENTIAL COMPREHENSIVE METABOLIC 2021-08-10 08:20:00 [facility] PANEL ZZCOVID-19 SEROLOGY 2021-08-10 08:20:00 [facility] PATIENT SURVEILLANCE Terry ESTIMATED GFR 2021-08-10 08:20:00 [facility] spital TROPONIN T 2021-08-09 09:19:[address] [facility] spital MRI BRAIN W WO CONTRAST 2021-08-09 06:35:00 Asim Almanza [facility] ECG ED PRELIMINARY 2021-08-09 03:18:13 [facility] WO CONTRAST 2021-08-09 03:04:[address] [facility] POC , URINE 2021-08-09 02:52:00 Joel Warren [facility] Andrea COVID-19 QUALITATIVE 2021-08-09 02:37:00 [facility] CBC WITH PLATELET AND 2021-08-09 02:37:00 Taz [facility] DIFFERENTIAL PROTHROMBIN TIME WITH INR 2021-08-09 02:37:00 Taz Manas [facility] PARTIAL THROMBOPLASTIN 2021-08-09 02:37:00 Manas Mcghee [facility] TIME (PTT) COMPREHENSIVE METABOLIC 2021-08-09 02:37:00 Taz Manas [facility] PANEL ESTIMATED GFR 2021-08-09 02:37:00 Manas Mcghee spital TROPONIN T 2021-08-09 02:37:00 Manas Mcghee spital B NATRIURETIC PEPTIDE 2021-08-09 02:37:00 Manas Mcghee [facility] XR SKULL < 4 VW 2021-08-09 02:09:31 Manas Mcghee spital ECG 12-LEAD 2021-08-09 01:42:14 Manas Mcghee spital XR ABDOMEN AP AND LATERAL 2021-08-09 01:40:26 Manas Mcghee [facility] XR CERVICAL SPINE 2 OR 3 2021-08-09 01:40:07 Manas Mcghee [facility] VW XR CHEST 2 VW 2021-08-09 01:39:53 [facility] Plan of Care Planned Activity Planned Date Details Comments Source Future Scheduled 2022-04-[address] [facility] Test 00:00:00 (12+) [code = [facility] DEPRESSION SCREENING (12+)] Future Scheduled 2022-03-26 COVID-19 VACCINE (#1) [facility] 11:14:58 [facility] (#1)] Future Scheduled 2022-03-26 Hepatitis C screening [facility] 11:14:58 (procedure) [code = Hospital 960028732] Future Scheduled 2022-03-26 Screening for [employer] Test 11:14:58 malignant neoplasm of Hospit al cervix (procedure) [code = 431717015] Future Scheduled 2022-03-26 BREAST CANCER [facility] Test 11:14:58 SCREENING [code = Hospital BREAST CANCER SCREENING] Future Scheduled 2022-03-26 COLONOSCOPY SCREENING [facility] 11:14:58 [code = COLONOSCOPY Hospital SCREENING] Future Scheduled 2022-03-26 INFLUENZA VACCINE Method ist Test 11:14:58 [code = INFLUENZA Hospital VACCINE] Future Scheduled 2022-03-19 COVID-19 VACCINE (#1) [facility] 04:23:42 [code = COVID-19 Hospital VACCINE (#1)] Future Scheduled 2022-03-19 Hepatitis C screening [facility] 04:23:42 (procedure) [code = Hospital 552142535] Future Scheduled 2022-03-19 BREAST CANCER [facility] Test 04:23:42 SCREENING [code = Hospital BREAST [...] [facility]odist Test 19:34:27 (procedure) [code = Hospital 540303149] Future Scheduled 2021-12-26 Screening for [employer] Test 19:34:27 malignant neoplasm of Hospit al cervix (procedure) [code = 609530288] Future Scheduled 2021-12-26 BREAST CANCER [employer] Test 19:34:27 SCREENING [code = Hospital BREAST CANCER SCREENING] Future Scheduled 2021-12-26 COLONOSCOPY SCREENING [facility] 19:34:27 [code = COLONOSCOPY Hospital SCREENING] Future Scheduled 2021-12-26 INFLUENZA VACCINE Method ist Test 19:34:27 [code = INFLUENZA Hospital VACCINE] Future Scheduled 2021-12-[address] [facility] Test 00:00:00 (#1) [code = [facility] INFLUENZA VACCINE (#1)] Future Scheduled 2021-12-[address] [facility] Test 00:00:00 (#1) [code = Medical Center INFLUENZA VACCINE (#1)] Future Scheduled 2021-04-[address] [facility] Test 00:00:00 (12+) [code = [facility] DEPRESSION SCREENING (12+)] Future Scheduled 2020-01-[address] [facility] Test 00:00:00 (procedure) [code = [facility] 13794982] Future Scheduled 2020-01-[address] [facility] Test 00:00:00 (procedure) [code = [facility] 10946977] Future Scheduled 1996-01-[address] [facility] 00:[facility]:00 [facility] [code = 391303779] Future Scheduled 1996-01-[address] [facility] Test 00:00:00 [facility] cervix (procedure) [code = 543814796] Future Scheduled 1994 DTAP/TDAP/TD VACCINES [facility] 00:00:00 (1 - Tdap) [code = Medical C enter DTAP/TDAP/TD VACCINES (1 - Tdap)] Future Scheduled 1994 DTAP/TDAP/TD VACCINES [facility] 00:00:00 (1 - Tdap) [code = Medical C enter DTAP/TDAP/TD VACCINES (1 - Tdap)] Future Scheduled 1993 HEPATITIS C [facility]CRE[facility]ING [facility] 00:00:00 [code = HEPATITIS C Medical Center SCREENING] Future Scheduled 1993 HEPATITIS C [facility] 00:00:00 [code = HEPATITIS C Medical Center SCREENING] Future Scheduled [address] [facility] Test 00:00:00 Counseling and Medical Cente r Screening (12+) [code = Tobacco Cessation Counseling and Screening (12+)] Future Scheduled [address] [facility] Test 00:00:00 [facility] Cent[facility] r Screening (12+) [code = Tobacco Cessation Counseling and Screening (12+)] Future Scheduled 1975 COVID-19 VACCINE (#1) [facility] 00:00:00 [code = COVID-[address] VACCINE (#1)] Future Scheduled 1975 COVID-19 VACCINE (#1) [facility] 00:00:00 [code = COVID-[address] VACCINE (#1)] Future Scheduled [address] Test 00:00:00 (combo) [code = CT Medical C enter Colonography (combo)] Future Scheduled [address] [facility] [facility] Test 00:00:00 malignant neoplasm of Medica l Center colon (procedure) [code = 411209370] Future Scheduled [address] [facility] Test 00:00:00 malignant neoplasm of [facility] Center colon (procedure) [code = 457176581] Future Scheduled [address] [facility] Test 00:00:00 malignant neoplasm of [facility]ica [facility] Center colon (procedure) [code = 584588404] Future Scheduled [address] [facility] Test 00:00:00 malignant neoplasm of Medica [facility] Center colon (procedure) [code = 508059681] Future Scheduled 1975 Sigmoidoscopy [code [facility] Sigmoidoscopy] Medical Wille r Future Scheduled [address] [facility] 00:00:00 (combo) [code = CT Medical C enter Colonography (combo)] Future Scheduled [address] [facility] [facility] Test 00:00:00 malignant neoplasm of Medica l Center colon (procedure) [code = 135496441] Future Scheduled [address] [facility] Test 00:00:00 malignant neoplasm of Medica l Center colon (procedure) [code = 339587590] Future Scheduled [address] [facility] Test 00:00:00 malignant neoplasm of Medica l Center colon (procedure) [code = 365681115] Future Scheduled [address] [facility] Test 00:00:00 malignant neoplasm of Medica l Center colon (procedure) [code = 922002823] Future Scheduled 1975 Sigmoidoscopy [[facility] S[facility]oscopy] Medical Cente r Future Scheduled TSH [code = 84924-7] Ordered: [employer] Test 03/27/2020 of Medicine Future Scheduled T4 FREE [code = Ordered: [facility] [employer] Test 3024-7] 03/27/2020 of Medicine Future Scheduled T3 [code = 3053-6] Ordered: [employer] Test 03/27/2020 of Medicine Future Scheduled MAMMOGRAM ANNUAL [facility] Test [code = MAMMOGRAM of Medicin e ANNUAL] Future Scheduled TETANUS SHOT (ADULT) [employer] [facility] [code = TETANUS SHOT of Medi cine (ADULT)] Future Scheduled BMI FOLLOW UP PLAN [facility] Test [code = BMI FOLLOW UP of Med icine PLAN] Future Scheduled HEPATITIS C SCREENING [facility] [code = HEPATITIS C of Medic ine SCREENING] Future Scheduled HIV SCREENING [code = [employer] [facility] HIV SCREENING] of Medicine Future Scheduled CERVICAL CANCER [facility] C ollege Test SCREENING 3 YEAR of Medicine FOLLOW UP [code = CERVICAL CANCER SCREENING 3 YEAR FOLLOW UP] Future Scheduled FLU VACCINE > 6 [facility] C [facility]lege Test MONTHS [code = FLU of Medici ne VACCINE > 6 MONTHS] Encounters Start End Encounter Admission Attending Care Care Encounter Source Date/Time Date/Time Type Type Clinicians Facility Department ID 2022-03-10 Outpatient Mccall, [facility] [id number] Common 09:34:02 Sunil [facility] 2022-02-03 Outpatient Mccall, [facility] [id number] Common 14:59:00 Sunil [facility] 2022-02-01 Outpatient Mccall, [facility] [id number] Common 11:11:01 Sunil [facility] 2021-08-03 Outpatient Mccall, [facility] [id number] Common 16:18:01 Sunil [facility] 2021-05-07 Outpatient Mccall, [facility] [id number] Common 13:30:02 Sunil [facility] 2021-05-01 Outpatient Mccall, [facility] [id number] Common 08:23:02 Sunil [facility] 2021-04-29 Outpatient Mccall, [facility] [id number] Common 14:31:29 Sunil [facility] 2021-04-29 Outpatient Mccall, [facility] [id number] Common 14:12:21 Sunil [facility] 2021-04-29 Outpatient Mccall, [facility] [id number] Common 12:44:58 Sunil [facility] 2021-04-29 Outpatient Mccall, [facility] [id number] Common 12:34:29 Sunil [facility] 2021-04-29 Outpatient Mccall, [facility] [id number] Common 12:27:16 Sunil 77431 [facility] 2021-04-29 Outpatient Mccall, [facility] [id number] Common 12:20:23 Sunil 35818 [facility] 2021-04-29 Outpatient Mccall, [facility] [id number] Common 11:59:35 Sunil 27037 [facility] 2021-04-29 Outpatient Mccall, [facility] [id number] Common 11:46:14 Sunil 99388 [facility] 2021-04-29 Outpatient Mccall, [facility] [id number] Common 11:27:12 Sunil 39835 [facility] 2022-04-13 2022-04-13 Roshni Martino [facility] [id number] Univers 00:00:00 00:00:00 Sendil Sheyla [place] [facility].13.10 [facility]2.7[facility]2.686 Airam GARZA [phone] [address] 2022-04-12 2022-04-12 Outpatient R SALENA [facility] [id number] Univers 07:44:55 23:59:00 SENDIL ity [facility] 2022-03-24 2022-03-24 (TEL) [facility] [id number] Co mmon 00:00:00 00:00:00 [facility] 2022-03-23 2022-03-23 Outpatient R [facility] [id number] Univers 16:00:00 16:00:00 SENDIL ity [facility] 2022-03-17 2022-03-17 Outpatient R [facility] [facility] [id number] Univers 15:30:00 16:18:08 SENDIL ity [facility] 2022-03-17 2022-03-17 Office Salena [facility] [id number] Univers 15:30:00 16:18:08 Visit Sendil Sheyla [place] 350.1.13.10 ity [facility] 4.2.7.2.686 [phone] 2022-03-17 2022-03-17 Orders Doctor LAUREN 1.2.840.114 [id number] Univers 00:00:00 00:00:00 Only Unassigned, NICHOLAS 350.1.13.[address] [facility] 4.2.7.2.686 Ronnie as [phone] [address] 2022-03-12 2022-03-12 (TEL) [facility] [id number] Co mmon 00:00:00 00:00:00 [facility] 2022-02-18 2022-02-18 Documentat Katherine, 1.2.840.1 [id number] Methodi 00:00:00 00:00:00 ion Kathryn 20194.1.[address] [place] 3.430.2.7 Hospit a .3.417891 l .8 2022-02-18 2022-02-18 Documentat Katherine, 1.2.840.1 [id number] Methodi 00:00:00 00:00:00 ion Kathryn 52991.1.[address] [place] 3.430.2.7 Hospit a .3.659423 l .8 2021-10-19 2021-12-27 Office Sharon, 1.2.840.1 [id number] Methodi 13:30:00 00:12:59 Visit Alonso Buckner 93606.1.[address] 3.430.2.7 Hospit a .3.704803 l .8 2021-10-19 2021-12-27 Office [facility], 1.2.840.1 [id number] Methodi 13:30:00 00:12:59 Visit Alonso Buckner 34967.1.[address] 3.430.2.7 Hospit a .3.022827 l .8 2021-11-13 2021-11-13 OFFICE [facility] [id number] Co mmon 00:00:00 00:00:00 VISIT EST Spir it PT LEVEL 3 [facility] 2021-10-26 2021-10-26 (TEL) [facility] [id number] Co mmon 00:00:00 00:00:00 [facility] 2021-10-19 2021-10-[address] [facility], 1.2.840.1 [id number] Methodi 13:21:54 23:59:00 Encounter Alonso Buckner 87400.1.[address] 3.430.2.7 Hospit a .3.116678 l .8 2021-10-19 2021-10-[address] [facility], 1.2.840.1 [id number] Methodi 13:21:54 23:59:00 Encounter Alonso Buckner 24973.1.[address] 3.430.2.7 Hospit a .3.979892 l .8 2021-10-19 2021-10-19 Travel 1.2.840.1 1.2.747.504 [id number] Methodi 00:00:00 00:00:[address] 3.430.2.7 0.2.7.3.698 Ho spita .3.614736 084.8 l .8 2021-10-19 2021-10-19 Travel 1.2.840.1 1.2.504.279 6702 [id number] Methodi 00:00:00 00:00:[address] 3.430.2.7 0.2.7.3.698 Ho spita .3.264456 084.8 l .8 2021-10-14 2021-10-14 Outpatient R [facility] [id number] Univers 09:30:00 09:30:00 SENDIL [facility] 2021-10-14 2021-10-14 Outpatient R SALENA, [facility] [id number] Univers 09:30:00 09:30:00 SENDIL [facility] 2021-10-13 2021-10-13 (TEL) [facility] [id number] Co mmon 00:00:00 00:00:00 [facility] 2021-09-30 2021-09-30 OFFICE STLMLC STL[facility] [id number] Co mmon 00:00:00 00:00:00 VISIT [facility] LEVEL 5 [facility] 2021-09-29 2021-09-29 Travel 1.2.840.1 1.2.789.556 [id number] Methodi 00:00:00 00:00:[address] 3.430.2.7 0.2.7.3.698 Ho spita .3.663791 084.8 l .8 2021-09-29 2021-09-29 Orders Katherine, 1.2.840.1 [id number] Methodi 00:00:00 00:00:00 Only Kathryn 33345.1.[address] [facility] 3.430.2.7 Hospit a .3.963720 l .8 2021-09-29 2021-09-29 Travel 1.2.840.1 1.2.632.157 0567 [id number] Methodi 00:00:00 00:00:[address] 3.430.2.7 0.2.7.3.698 Ho spita .3.794401 084.8 l .8 2021-09-29 2021-09-29 Orders Katherine, 1.2.840.1 [id number] Methodi 00:00:00 00:00:00 Only Kathryn 35549.1.[address] [facility] 3.430.2.7 Hospit a .3.716697 l .8 2021-09-19 2021-09-19 Nurse LAUREN Nguyễn 1.2.840.114 [id number] Univers 00:00:00 00:00:00 [facility] Ronnie as [phone] [address] 2021-09-15 2021-09-15 Orders Katherine, 1.2.840.1 [id number] Methodi 00:00:00 00:00:00 Only Kathryn 44235.1.[address] [facility] 3.430.2.7 Hospit a .3.956593 l .8 2021-09-15 2021-09-15 Orders Medina, 1.2.840.1 [id number] 2288 Methodi 00:00:00 00:00:00 Only Shila 89900.1.[address] 3.430.2.7 Hospit a .3.692780 l .8 2021-09-15 2021-09-15 Orders Katherine, 1.2.840.1 [id number] Methodi 00:00:00 00:00:00 Only Kathryn 91311.1.[address] [facility] 3.430.2.7 Hospit a .3.240469 l .8 2021-09-15 2021-09-15 Orders Medina, 1.2.840.1 [id number] Methodi 00:00:00 00:00:00 Only Shila 54527.1.[address] 3.430.2.7 Hospit a .3.395899 l .8 2021-09-14 2021-09-14 Orders Katherine, 1.2.840.1 [id number] [id number] Methodi 00:00:00 00:00:00 Only Kathryn 52463.1.[address] [facility] 3.430.2.7 Hospit a .3.702275 l .8 2021-09-14 2021-09-14 Documentat Medina, 1.2.840.1 [id number] Methodi 00:00:00 00:00:00 ion Shila 41589.1.[address] 3.430.2.7 Hospit a .3.392225 l .8 2021-09-14 2021-09-14 Orders Katherine, 1.2.840.1 [id number] Methodi 00:00:00 00:00:00 Only Kathryn 92592.1.[address] [facility] 3.430.2.7 Hospit a .3.776862 l .8 2021-09-14 2021-09-14 Documentat Medina, 1.2.840.1 [id number] Methodi 00:00:00 00:00:00 ion Shila 95435.1.[address] 3.430.2.7 Hospit a .3.662014 l .8 2021-09-14 2021-09-14 (TEL) [facility] [id number] Co mmon 00:00:00 00:00:00 [facility] 2021-09-14 2021-09-14 Telephone RUTH ANN Martino 1.2.163.195 [id number] Univers 00:00:00 00:00:00 [facility] 350.1.13.10 ity of CLEAR 4.2.7.2.686 [facility] [phone] [facility] [address] OFFICE BUILDING 2021-08-26 2021-09-09 [facility], 1.2.840.1 [id number] Methodi 21:45:00 20:00:00 Encounter Acacia 39231.1.[address] 3.430.2.7 Hospit a .3.887857 l .8 2021-08-26 2021-09-09 [facility], 1.2.840.1 [id number] Methodi 21:45:00 20:00:00 Encounter Acacia 81066.1.[address] 3.430.2.7 Hospit a .3.743022 l .8 2021-09-09 2021-09-09 (TEL) [facility] [id number] Co mmon 00:00:00 00:00:00 [facility] 2021-08-08 2021-08-26 [facility] 1.2.840.1 [id number] Methodi 18:19:00 21:44:00 Encounter Fredi Schmid 97817.1.1 022 [facility] 3.430.2.7 Hospita Lauren Francois .3.586521 l Poserika, Richelle .8 2021-08-08 2021-08-26 [facility] 1.2.840.1 [id number] Methodi 18:19:00 21:44:00 Encounter Fredi Schmid 84021.1.1 022 [facility] 3.430.2.7 Hospita Priscila Lauren .3.702670 l Posani, Richelle .8 2021-08-19 2021-08-19 Anesthesia Gro, 1.2.840.1 [id number] Methodi 11:42:00 16:30:00 Event Alex 00663.1.[address] Art 3.430.2.7 Hospit a .3.978529 l .8 2021-08-19 2021-08-19 Anesthesia Groen, 1.2.840.1 [id number] Methodi 11:42:00 16:30:00 Event Alex 68975.1.[address] Art 3.430.2.7 Hospit a .3.890346 l .8 2021-08-19 2021-08-19 Surgery Sharon, 1.2.840.1 [id number] 7552 Methodi 10:55:00 15:10:00 Alonso Buckner 38555.1.[address] 3.430.2.7 Hospit a .3.443149 l .8 2021-08-19 2021-08-19 Surgery Sharon, 1.2.840.1 [id number] 0477 Methodi 10:55:00 15:10:00 Alonso Buckner 47445.1.[address] 3.430.2.7 Hospit a .3.532468 l .8 2021-08-13 2021-08-13 (TEL) [facility] [id number] Co mmon 00:00:00 00:00:00 [facility] 2021-08-12 2021-08-12 (TEL) STLMLC [facility] [id number] Co mmon 00:00:00 00:00:00 [facility] 2021-08-11 2021-08-11 (TEL) STLMLC [facility] [id number] Co mmon 00:00:00 00:00:00 [facility] 2021-08-08 2021-08-08 Travel 1.2.840.1 1.2.774.802 [id number] [id number] Methodi 00:00:00 00:00:[address] 3.430.2.7 0.2.7.3.698 Ho spita .3.841745 084.8 l .8 2021-08-08 2021-08-08 Travel 1.2.840.1 1.2.595.892 7665 [id number] Methodi 00:00:00 00:00:[address] 3.430.2.7 0.2.7.3.698 Ho spita .3.004306 084.8 l .8 2021-08-07 2021-08-07 (TEL) [facility]C [facility] [id number] Co mmon 00:00:00 00:00:00 [facility] 2021-08-04 2021-08-04 (TEL) STLMLC [facility] [id number] Co mmon 00:00:00 00:00:00 [facility] 2021-08-03 2021-08-03 Telephone LAUREN Martino 1.2.314.892 [id number] [facility] 00:00:00 00:00:00 Sendil Sheyla PETERSON [id number].7.2.686 Ronnie as [phone] [facility] [address] 2021-07-23 2021-07-23 Outpatient R [facility] [id number] [facility] 13:00:00 14:06:54 SENDIL ity [facility] 2021-07-23 2021-07-23 [facility] [id number] Univers 13:00:00 14:06:54 Visit Imani [place] [id number]7.2.[place] [phone] [place] [id number] [facility] 2021-06-23 2021-06-23 (TEL) STLMLC STLMLC [id number] Co mmon 00:00:00 00:00:00 [facility] 2021-05-24 2021-05-24 Nurse LAUREN Simms [id number] Univers 00:00:00 00:00:00 Triage Rupinder PETERSON [id number] [facility] [id number] Ronnie as [phone] [facility] [address] 2021-05-23 2021-05-23 (TEL) STLMLC STLMLC [id number] [place] mmon 00:00:00 00:00:00 [facility] 2021-05-14 2021-05-14 (TEL) STLMLC STLMLC [id number] Co mmon 00:00:00 00:00:00 [facility] 2021-05-07 2021-05-07 OFFICE STLMLC STLMLC [id number] [place] m[place] 00:00:00 00:00:00 VISIT [facility] LEVEL 4 [facility] 2021-05-05 2021-05-05 (TEL) STLMLC STLMLC [id number] Co mmon 00:00:00 00:00:00 [facility] 2021-05-01 2021-05-01 (TEL) STLMLC STLMLC [id number] [place] mmon 00:00:00 00:00:00 [facility] 2021-04-10 2021-04-10 (TEL) STLMLC STLMLC [id number] Co mmon 00:00:00 00:00:00 [facility] 2021-04-06 2021-04-06 (TEL) STLMLC STLMLC [id number] Co mmon 00:00:00 00:00:00 [facility] 2021-04-06 2021-04-06 OFFICE STLMLC STLMLC [id number] [place] m[place] 00:00:00 00:00:00 VISIT [facility] LEVEL 4 [facility] 2021-02-12 2021-02-12 (TEL) STLC STLC [id number] Co mmon 00:00:00 00:00:00 [facility] 2021-02-09 2021-02-09 Emergency [facility] [id number] Univers 21:28:00 23:35:00 FANNIE ity of [facility] 2021-02-09 2021-02-09 Emergency [facility] 1.2.577.769 [id number] Univers 21:28:00 23:35:00 Fannie [place] 350.1.13.10 i ty of [place] 4.2.7.2.686 [facility] [phone] [facility] [address] Branch 2021-02-09 2021-02-09 Orders Doctor LAUREN 1.2.840.114 [id number] Univers 00:00:00 00:00:00 Only Unassigned, NICHOLAS 350.1.13.10 [place] [facility] 4.2.7.2.686 [facility] [phone] [facility] 009 Branch 2021-01-29 2021-01-29 (TEL) STLC STLMLC [id number] Co mmon 00:00:00 00:00:00 [facility] 2021-01-27 2021-01-27 Office [facility] 1.2.840.114 [id number] Univers 08:24:21 09:10:00 Visit Imani Cunningham 350.1.13.10 it[place] [phone] [address] 2021-01-27 2021-01-27 Outpatient R SALENA [facility] [id number] Univers 08:30:00 08:30:00 SENDIL ity [facility] 2021-01-27 2021-01-27 Orders Doctor LAUREN 1.2.840.114 [id number] Univers 00:00:00 00:00:00 Only Unassigned, NICHOLAS 350.1.13.10 [place] [facility] 4.2.7.2.686 Ronnie as [phone] [address] 2021-01-27 2021-01-27 Letter Salena [facility] 1.2.840.114 [id number] Univers 00:00:00 00:00:00 (Out) Imani Cunningham 350.1.13.10 [phone] [place] [address] [place] [address] 2021-01-25 2021-01-25 (TEL) STLMLC STLMLC [id number] Co mmon 00:00:00 00:00:00 [facility] 2021-01-22 2021-01-22 (TEL) STLMLC STLMLC [id number] Co mmon 00:00:00 00:00:00 [facility] 2021-01-19 2021-01-19 (TEL) STLMLC STLMLC [id number] Co mmon 00:00:00 00:00:00 [facility] 2020-12-10 2020-12-10 OFFICE STLMLC STLMLC [id number] Co mmon 00:00:00 00:00:00 VISIT [facility] CHI LEVEL 4 [facility] 2020-11-21 2020-11-21 (TEL) STLMLC STLMLC [id number] Co mmon 00:00:00 00:00:00 [facility] 2020-11-18 2020-11-18 (TEL) STLMLC STLMLC [id number] Co mmon 00:00:00 00:00:00 [facility] 2020-11-05 2020-11-05 Outpatient STLMLC STLMLC [id number] Common 00:00:00 00:00:00 [facility] 2020-10-30 2020-10-30 Outpatient Tayler MARTINO [facility] [id number] Univers 11:30:00 [facility] 2020-09-[facility] 2020-09-15 Outpatient STLMLC STLMLC [id number] Common 00:00:00 00:00:00 [facility] 2020-09-04 2020-09-04 Outpatient Tayler MARTINO [facility] [id number] Univers 11:00:00 11:00:00 [facility] 2020-08-20 2020-08-20 Outpatient STLMLC STLMLC [id number] Common 00:00:00 00:00:00 [facility] 2020-08-19 2020-08-19 Outpatient STLMLC STLMLC [id number] Common 00:00:00 00:00:00 [facility] 2020-07-15 2020-07-15 Outpatient Tayler MARTINO [facility] [id number] Univers 10:00:00 10:00:00 [facility] 2020-07-11 2020-07-11 Outpatient STLMLC STLMLC [id number] Common 00:00:00 00:00:00 [facility] 2020-07-10 2020-07-10 Outpatient STLMLC STLMLC [id number] Common 00:00:00 00:00:00 [facility] 2020-07-02 2020-07-02 Outpatient STLMLC STLMLC [id number] Common 00:00:00 00:00:00 [facility] 2020-06-29 2020-06-29 Outpatient STLMLC STLMLC [id number] Common 00:00:00 00:00:00 [facility] 2020-06-10 2020-06-10 Outpatient STLMLC STLMLC [id number] Common 00:00:00 00:00:00 [facility] 2020-06-03 2020-06-03 Outpatient STLMLC STLMLC [id number] Common 00:00:00 00:00:00 [facility] 2020-06-02 2020-06-02 Telephone [facility] [id number] Univers 00:00:00 00:00:00 Imani Cunningham 350.1.13.10 [place] [phone] [address] 2020-06-02 2020-06-02 Telephone [facility] [id number] 00:00:00 00:00:00 Imani Cunningham 350.1.13.10 [place] 4.2.7.2.686 Professio [phone] [address] 2020-05-31 2020-05-31 Outpatient STLMLC STLMLC [id number] Common 00:00:00 00:00:00 [facility] 2020-05-07 2020-05-07 Outpatient STLMLC STLMLC [id number] Common 00:00:00 00:00:00 [facility] 2020-05-05 2020-05-05 Telephone [facility] 1.2.333.053 [id number] Univers 00:00:00 00:00:00 Imani Cunningham 350.1.13.10 ity [facility] [place] [phone] [address] 2020-05-05 2020-05-05 Telephone [facility] 1.2.551.132 [id number] 00:00:00 00:00:00 [facility]il [facility] 350.1.13.10 [place] 4.2.7.2.686 Professio [phone] [address] 2020-05-02 2020-05-02 [facility] 1.2.840.114 [id number] Univers 08:58:15 23:59:00 Encounter Sendil [facility] 350.1.13.10 [place] AT [phone] [address] 2020-05-02 2020-05-02 [facility] 1.2.840.114 [id number] [facility] 08:58:15 23:59:00 Encounter Sendil [facility] 350.1.13.10 CARE 4.2.7.2.686 CENTER AT [phone] [address] 2020-05-02 2020-05-02 Outpatient R [facility] [id number] [facility] 09:00:00 09:00:00 SENDIL ity [facility] 2020-05-02 2020-05-02 [facility] 1.2.840.114 [id number] [facility] 08:32:07 08:57:00 Encounter Sendil [facility] 350.1.13.10 [place] [phone] [address] 2020-05-02 2020-05-02 [facility] 1.2.840.114 [id number] 08:32:07 08:57:00 Encounter Sendil [facility] 350.1.13.10 CARE 4.2.7.2.686 CENTER AT [phone] [address] 2020-05-02 2020-05-02 [facility] 1.2.840.114 [id number] Univers 08:31:50 08:31:50 Encounter Sendil [facility] 350.1.13.10 [place] [phone] [place] pamella [address] 2020-05-02 2020-05-02 [facility] 1.2.840.114 [id number] 08:31:50 08:31:50 Encounter Sendil [facility] 350.1.13.10 CARE 4.2.7.2.686 CENTER AT [phone] [address] 2020-05-02 2020-05-02 [facility] 1.2.840.114 [id number] Univers 08:31:12 08:31:12 Encounter Sendil [facility] 350.1.13.10 [place] [phone] [address] 2020-05-02 2020-05-02 [facility] 1.2.840.114 [id number] 08:31:12 08:31:12 Encounter Sendil [facility] 350.1.13.10 CARE 4.2.7.2.686 CENTER AT [phone] [address] 2020-04-24 2020-04-24 Outpatient [facility] [id number] Univers 10:30:00 10:30:00 SENDIL ity of [facility] 2020-04-16 2020-04-16 Outpatient STLC STLC [id number] Common 00:00:00 00:00:00 [facility] 2020-04-11 2020-04-11 Orders Doctor AGUILAR 1.2.840.114 [id number] Univers 00:00:00 00:00:00 Only Unassigned, NICHOLAS 350.1.13.10 [place] [facility] 4.2.7.2.686 Ronnie as [phone] [address] 2020-04-11 2020-04-11 Orders Doctor LAUREN 1.2.840.114 [id number] 00:00:00 00:00:00 Only Unassigned, NICHOLAS 350.1.13.10 [place] [facility] 4.2.7.2.686 [id number] 009 2020-04-10 2020-04-10 Telephone [facility] 1.2.942.732 [id number] Univers 00:00:00 00:00:00 Imani Cunningham 350.1.13.10 [place] [phone] [address] 2020-04-09 2020-04-09 Telephone [facility] 1.2.596.558 [id number] Univers 00:00:00 00:00:00 Imani Cuninngham 350.1.13.10 it[place] of [place]2.[place] [phone] [address] 2020-04-08 2020-04-08 [place] [facility] 1.2.618.983 [id number] Univers 00:00:00 00:00:00 Imani Cunningham 350.1.13.10 it[place] of [place].2.[place] [phone] [address] 2020-04-08 2020-04-08 [place] [facility] 1.2.932.156 [id number] 00:00:00 00:00:00 Imani Cunningham 350.1.13.10 [place] 4.2.7.2.686 Professio [phone] [address] 2020-04-01 2020-04-01 Office Salena [facility] 1.2.840.114 [id number] Univers 10:44:06 12:00:21 Visit Imani Cunningham 350.1.13.10 it[place] of [place]2.[place] [phone] [address] 2020-04-01 2020-04-01 Outpatient R SALENA ORYAAKOV [facility] [id number] Univers 11:00:00 11:00:00 SENDIL ity of [facility] 2020-04-01 2020-04-01 Telephone [facility] 1.2.482.859 [id number] Univers 00:00:00 00:00:00 Imani Cunningham 350.1.13.10 it[place] of [place].2.[place] [phone] [place] 059 [facility] 2020-04-01 2020-04-01 Outpatient STLMLC STLMLC [id number] Common 00:00:00 00:00:00 [facility] 2020-03-31 2020-03-31 Outpatient STLMLC STLMLC [id number] Common 00:00:00 00:00:00 [facility] 2020-03-27 2020-03-27 [place] 1.2.840.114 [id number] 13:04:09 13:34:09 Visit Dimpi Ramses AMBULATOR 350.1.13.21 Y 0.2.7.2.686 [id number] [facility] 2020-03-27 2020-03-27 Office [place], [facility] 1.2.840.114 [id number] [facility] 13:04:09 13:34:09 Visit Dimpi Ramses AMBULATOR 350.1.13.21 College Y 0.2.7.2.686 of [phone] [facility] 310 e 2020-03-24 2020-03-24 Outpatient STLMLC STLMLC [id number] Common 00:00:00 00:00:00 [facility] 2020-03-17 2020-03-17 Telephone [facility] 1.2.842.146 [id number] Univers 00:00:00 00:00:00 Imani Cunningham 350.1.13.10 it[place] of [place].2.[place] [phone] [facility] nal [address] [place] [address] 2020-03-17 2020-03-17 Outpatient STLMLC STLMLC [id number] Common 00:00:00 00:00:00 [facility] 2020-03-12 2020-03-12 Outpatient STLMLC STLMLC [id number] Common 00:00:00 00:00:00 [facility] 2020-03-11 2020-03-11 Outpatient STLMLC STLMLC [id number] Common 00:00:00 00:00:00 [facility] 2020-03-03 2020-03-03 Outpatient STLMLC STLMLC [id number] Common 00:00:00 00:00:00 [facility] 2020-02-14 2020-02-14 Outpatient STLMLC STLMLC [id number] Common 00:00:00 00:00:00 [facility] 2020-02-11 2020-02-11 Outpatient STLMLC STLMLC [id number] Common 00:00:00 00:00:00 [facility] 2020-02-08 2020-02-08 Outpatient STLMLC STLMLC [id number] Common 00:00:00 00:00:00 [facility] 2020-02-01 2020-02-01 Outpatient R [facility] [id number] Univers 16:00:00 16:00:00 ity [facility] 2020-02-01 2020-02-01 Nurse Visit, Adc Nurse [facility] 1.2.840.1 14 [id number] Univers 07:53:14 08:46:38 Visit Imani [facility] 350.1.13. [facility] 4[facility]686 [facility] [place] [phone] [place] [address] [place] [address] 2020-01-30 2020-01-30 Outpatient STLMLC STLMLC [id number] Common 00:00:00 00:00:00 [facility] 2020-01-29 2020-01-29 Office Salena [facility] 1.2.840.114 [id number] Univers 11:10:54 12:45:41 Visit Imani Cunningham 350.1.13.10 [facility] 4.2.7.2.686 [facility] [place] [phone] [place] [address] [place] [address] 2020-01-29 2020-01-29 Outpatient R SALENA [facility] [id number] Univers 11:30:00 11:30:00 SENDIL itkirill [facility] 2020-01-29 2020-01-29 Orders Doctor LAUREN 1.2.840.114 [id number] Univers 00:00:00 00:00:00 Only Unassigned, NICHOLAS 350.1.13.10 [place] [facility] 4.2.7.2.686 Ronnie as [phone] [address] 2020-01-23 2020-01-23 Outpatient STLMLC STLMLC [id number] Common 00:00:00 00:00:00 [facility] 2020-01-22 2020-01-22 Outpatient STLMLC STLMLC [id number] Common 00:00:00 00:00:00 [facility] 2020-01-16 2020-01-16 Orders Doctor LAUREN 1.2.840.114 [id number] Univers 00:00:00 00:00:00 Only Unassigned, NICHOLAS 350.1.13.10 it[place] of [place] [facility] 4.2.7.2.686 Ronnie as [phone] [address] 2020-01-15 2020-01-15 Outpatient STLMLC STLMLC [id number] Common 00:00:00 00:00:00 [facility] 2020-01-10 2020-01-10 Telephone JACKIE Martino 1.2.855.974 [id number] Univers 00:00:00 00:00:00 Imani Cunningham 350.1.13.10 [place] [phone] [address] 2020-01-09 2020-01-09 Outpatient STLMLC STLMLC [id number] Common 00:00:00 00:00:00 [facility] 2020-01-07 2020-01-07 Orders Doctor LAUREN 1.2.840.114 [id number] Univers 00:00:00 00:00:00 Only Unassigned, NICHOLAS 350.1.13.10 [place] [facility] 4.2.7.2.686 Ronnie as [phone] [address] 2020-01-07 2020-01-07 Outpatient STLMLC STLMLC [id number] Common 00:00:00 00:00:00 [facility] 2020-01-03 2020-01-03 [facility] 1.2.023.832 [id number] Univers 11:07:14 12:05:52 Visit Angelina Cunningham 350.1.13.10 i [place] of [place].2.[place] [phone] [place] 188 [facility] 2020-01-03 2020-01-03 [facility] [id number] Univers 11:15:00 11:15:00 ANGELINA kirill [facility] 2020-01-01 2020-01-01 Outpatient [facility] [id number] Univers 15:30:00 15:30:00 ANGELINA kirill [facility] 2019-12-19 2019-12-19 Outpatient [facility] [id number] Common 16:30:00 16:30:[address] [facility] 2019-12-18 2019-12-18 Outpatient [facility] [id number] Common 13:33:00 13:33:[address] [facility] 2019-12-18 2019-12-18 Laboratory Pc, Adc Echo Room 1 - [facility] 1 .2.840.114 [id number] [facility] 09:52:20 11:27:29 Only Imani Martino 350.1.13. 10 it[place].2.[place] [phone] [place] 059 [facility] 2019-12-18 2019-12-18 Outpatient R [facility] [id number] Univers 10:00:00 10:00:00 ity [facility] 2019-12-13 2019-12-13 Office Salena [facility] 1.2.840.114 [id number] Univers 10:43:37 11:48:34 Visit Imani Cunningham 350.1.13.10 it[place] of [place] 4[place].2.[place] [phone] [place] [address] [place] [address] 2019-12-13 2019-12-13 Outpatient [facility] [id number] Univers 11:00:00 11:00:00 SENDIL itkirill [facility] 2019-12-13 2019-12-13 Orders Doctor LAUREN 1.2.840.114 [id number] Univers 00:00:00 00:00:00 Only Unassigned, NICHOLAS 350.1.13.10 [place] [facility] 4.2.7.2.686 Ronnei as [phone] [address] 2019-12-13 2019-12-13 Refill Salena [facility] 1.2.840.114 [id number] Univers 00:00:00 00:00:00 Sendil Sheyla Cunningham 350.1.13.10 it[place] 4[place].2.[place] [phone] [place] 9 [facility] 2019-12-09 2019-12-09 Outpatient [facility] [id number] Common 17:43:00 17:43:[address] [facility] 2019-12-04 2019-12-04 Outpatient Tayler BEAR [facility] [id number] Univers 13:30:00 13:30:00 ANGELINA kirill [facility] 2019-11-26 2019-11-26 Outpatient [facility] [id number] Common 15:17:00 15:17:[address] [facility] 2019-11-24 2019-11-24 Outpatient [facility] [id number] Common 15:24:00 15:24:[address] [facility] 2019-11-22 2019-11-22 Outpatient [facility] [id number] Common 16:03:00 16:03:[address] [facility] 2019-11-19 2019-11-19 Outpatient [facility] [id number] Common 14:35:00 14:35:[address] [facility] 2019-11-16 2019-11-16 Outpatient [facility] [id number] Common 09:15:00 09:15:[address] [facility] 2019-11-09 2019-11-09 Outpatient SLSL SLSL [id number] SLSL 00:00:00 00:00:00 2019-11-08 2019-11-08 Outpatient [facility] [id number] Common 09:12:00 09:12:[address] [facility] 2019-11-08 2019-11-08 Outpatient SLSL SLSL [id number] SLSL 00:00:00 00:00:00 2019-11-08 2019-11-08 Outpatient EL SLSL SLSL [id number] SLSL 00:00:00 00:00:00 2019-11-02 2019-11-02 Outpatient SLSL SLSL [id number] SLSL 00:00:00 00:00:00 2019-11-01 2019-11-01 Outpatient SLSL SLSL [id number] SLSL 00:00:00 00:00:00 2019-11-01 2019-11-01 Outpatient EL SLSL SLSL [id number] SLSL 00:00:00 00:00:00 2019-10-30 2019-10-30 Outpatient [facility] [id number] Common 17:05:00 17:05:[address] [facility] 2019-10-29 2019-10-29 Outpatient [facility] [id number] Common 15:04:00 15:04:[address] [facility] 2019-10-29 2019-10-29 Outpatient [facility] [id number] Common 08:06:00 08:06:[address] [facility] 2019-10-23 2019-10-23 Office Joni [facility] 1.2.292.008 [id number] Univers 15:00:23 15:30:23 Visit Angelina Cunningham 350.1.13.10 i [place]evin 4.2.7.2.686 Airam Garza [phone] [place] 377 [facility] 2019-10-23 2019-10-23 [facility]patient [facility] [id number] Univers 15:00:00 15:00:00 ANGELINA howard [facility] 2019-10-23 2019-10-23 Orders Doctor LAUREN 1.2.840.114 [id number] Univers 00:00:00 00:00:00 Only Unassigned, NICHOLAS 350.1.13.10 it[place] [facility] 4.2.7.2.686 Ronnie as [phone] [address] 2019-10-22 2019-10-22 Outpatient [facility] [id number] Common 12:23:00 12:23:[address] [facility] 2019-10-18 2019-10-18 Outpatient [facility] [id number] Common 14:30:00 14:30:[address] [facility] 2019-09-20 2019-09-20 Outpatient [facility] [id number] Common 09:00:00 09:00:[address] [facility] 2019-09-20 2019-09-20 Orders Doctor LAUREN 1.2.840.114 [id number] Univers 00:00:00 00:00:00 Only Unassigned, NICHOLAS 350.1.13.10 ity of [place] [facility] 4.2.7.2.686 Ronnie as [phone] [address] 2018-11-28 2018-11-28 Telephone [facility] 1.2.172.766 [id number] Univers 00:00:00 00:00:00 Ismael S Health 350.1.13.10 it y of Surgical 4.2.7.2.686 Ronnie as Specialti [phone] [place] dical es 198 [facility] 2018-11-27 2018-11-27 Telephone [facility] 1.2.840.114 [id number] Univers 00:00:00 00:00:00 Denys L Health 350.1.13.10 it y of Surgical 4.2.7.2.686 Ronnie as Specialti [phone] Me dical es [address] [place] Results Test Description Test Time Test Comments Results Result Comments Source Miscellaneous referral test 2021-09-17 15:05:00 Test Item Value Reference Range Interpretation Comme nts Misc test name (test FAITH 79 GMT code = 2566) Misc test [...] implicat ed inmeningioma tumorigenesis. Germline (i.e. inherited) AC6eoaepjqyc ar e associated with neurofibromatos is type [...] approved therapies thats pecifically target NF2 mutations. OPALGhazala VANDANARASHI1. cancer-beta.banner.ac.uk/cosmic; Nucleic Acids Res. 2017 ;45(D1):R040-M010 (PMID 20420089) 2. [email or web address].org (Version 1.5.1) ; Cancer discov. 2012;2(5):401?4 ([id number]); Sci Signal. 2013;6( 269):pl1 (PMID 48419832)3. Liz BERRIOS, Abdoulaye Gaitan ,Nico Cordero , Rachelle, WMaurice. (Eds). WHOClassificati on of Tumours of the Central Nervous System (Revised 4thedition). [place] RC: Fransisco 2016.4. Brain Tumor Pathol. O ct 2016;33(4):237?47 (PMID 41036088) 5. [email or web address]. Nature communications. May 18 2017;8:05238 (PMID 47814670) 7. NPJ Genom Med. 2017;2 (PMID 06083495) 8. Int J Cancer. Jan 16 2001;94(2):218? 21 (PMID 36575403)9. Acta Neuropathol. Ju l 2017;134(1):155?8 (PMID 48767567)10. Na allan communications. Nov 05 2017;8(1):186 (PMID 70493371)ADDITI ONAL INFORMATIONMicr oscopic examination was performed by a pathologist toidentify areas of tumor for enrichment by macrodissection . Nextgeneration sequencing was performed to test for the presence ofa mu tation within approximately 9 5% of exonic regions andexon/intron boundaries of the following 118 t argeted genes:ACVR1 (ALK2), AKT1, A KT2, AKT3, APC, ARID1A, ARID2, GERALDO,ATRX , BAP1, BCOR, BCORL1, BRAF, CBL, CDK6 , CDKN2A,CDKN2B, CDKN2C, CHEK2, CIC, CTD NEP1, CTNNB1, DAXX,DDX3X, DNMT3A, EGFR, E ZH2, FGFR1, FGFR2, FGFR3,FUBP1, GL I2, GLI3, GNA11, GNAQ, GNAS, GPS2, H3F 3A,YOMU0H6R, ZQQK1Q9J, IDH1, IDH2, TERRI 2, KDM5A, KDM5C,KDM6A, KLF4, KMT2B (ML L4), KMT2C (MLL3), KMT2D (MLL2),KRAS, LD B1, LRP1B, LZTR1, MAP2K1, MDM2, MLH1, MSH 2,MSH3, MSH6, MYB, MYBL1, MYC, MYCN, NF1, NF2,NOTCH1, NOTCH2, NRAS, PARP1, PD GFRA, RKA0I1W,PIK3CA, PIK3R1, PIK3R2, POLE, POLR2A, POT1, PPM1D,BHVGF4H, PTCH1, PTCH2, PTEN, PTPN11, PTPRD, QKI,RAF1, RB1, [...] AGBL4, ATG7, BC AN, BEND2,BIRC5, BRAF, BTBD1, K16qzv59 , F2mls92, CLCN6, CLIP2,CXXC5, DD X31, DIP2C, EGFR, ELAVL3, ESR1, ETV6, EWS R1,BSX869X, PVG721E, FGFR1, FGFR3, F LI1, FOXR2, FXR1,FYCO1, GFI1, GFI1B, GL I1, GNAI1, JPX, LTAM8339,CZR444 643, MACF1, MAMLD1, MET, MKRN1, MMP16, M N1,MST1R, MYB, MYBL1, MYC, NAB2, NACC 2, NAV1, NDRG1,NELFE, NFASC, NRF1, NT RK1, NTRK2, NTRK3, PCDHGA1,PCSK5, PDGFRA, PKD1, PRKCA, PTPRZ1, PVT1, Q KI, RAF1,SUNI, RELA, KAM552, SEPT14, UNI34A9, SLIT1, SRGAP3,KD8TEW5, STAT6, TACC1, TACC3, TFG, TPM3, UBE2 J2, VCL,WHSC1, and YAP1.Mutation n omenclature is based on build GRCh37 (h g19). Fordetails about gene reference transcripts (RefSeq accessionnumber s), specific targeted regions of each gene, andadditional information abo ut this test, seewww.FullContact.[employer]Vision(Test ID NONCP). CLINICA L CORRELATIONSTest results should be interpreted in context of clinical fin dings,tumor sampling, histopathology, and other laboratory data. Ifresults obtained do not match other clinical or laboratoryfindings, please contact the laboratory for possible interpretation. Misinterpretation of results may occ ur if the information providedis [facility] curate or incomplete.This test does not d [...] mary based on updated clinicalrelevan ce. See [email or web address](Test ID NONCP) for the most up to date list of genes included inthis test. Additional Information CLI NICAL TRIALSPossible clinical trials of benefit for this patient can bef ound at the following sites:1) ClinicalTrials. gov:www.clinicaltrials.go v/ct2/search/ad vanced2) [facility]: www.[facility]/re search/clinical-trials/3) [facility]: <www.cancer.gov /clinicaltrials/search> REFERENCETRANSC RIPTSequence variant nomenclature is based on the following RefSeqaccession number (build GRCh37 (hg19)):[id number]. Specimen Tissue, Tumor Tissue ID [id number] Released By Linda Yu M.D. Laboratory NotesThis test was developed and its performance cj racteristics determined by [facility] in a manner consistent with CLIA requi rements. This test has not been cleare d orapproved by the U.S. Food and Drug A dministration. Per[facility] - [address] [address] [place] (test code = [place] TEST ID: NONCP - BEHZAD) 79 GENE MUTATION ANALYSIS- RIGHT BRAIN [id number] (B9)DOS 08/19/2021 [facility] [id number] 15:05:00 Test Item Value Reference Interpretation Comments Range Misc test [place] 79 GMT name (test code = 2566) Misc test see comment Neuro-Onc Expan ded Panel [...] implicated inmeningioma tu morigenesis. Germline (i.e. inherited) [id number] ar e associated with neurofibromatos is type [...] uish between germline and so matic alterations.Con personal care worker follow-up germline testin g on a blood specimen inconj unction with genetic career guidance counselor ing if there is clinical eviden ceand/or family history suggest ing an underlying hereditary cancersyndrome. Currently, there are no known cl inically approved therapies thats pecifically target NF2 muta tions. REFERENCES1. cancer-beta.banner.ac.uk/cosmic; Nucleic Acids R es. 2016;45(D1):D77 7-D790 (PMID 11890267)2. cbi oportal.org (Version 1.5.1) ; Cancer discov. 2012;2(5):401?4 ([id number]); Sci Signal. 201 3;6(269):pl1 (PMID 81620901) 3. Mayank BERRIOS, Abdoulaye Gaitan ,Paulie goddard O.D., Rachelle, WMaurice. ( Eds). WHOClassificati on of Tumours of the Central Ner vous System (Revised 4thedi tion). IARC: Moody 2016.4. Brain T umor Pathol. Jan 2016;33(4):237? 47 (PMID 07594847)5. [email or web address]. Nature communications. May 18 2017;8:45295 (P MID [id number])7. NPJ Genom Med. 2017;2 (PMID 80027852)8. Int J Cancer. Jan 16 2001;94(2):218? 21 (PMID 30118404)9. Act a Neuropathol. Oct 2016;134(1) :155?8 (PMID 95656728)10. Na senthile communications. Nov 05 2016;8(1):186 ( PMID 60035987)ADDITI ONAL INFORMATIONMicr oscopic examination was performed by [...] GLI2, GLI3, GNA11, GN AQ, GNAS, GPS2, H3F3A,TFWU2K8S, MVIW2Y7H, IDH1, IDH2, JAK2, KDM 5A, KDM5C,KDM6A, KLF4, KMT2B (ML L4), KMT2C (MLL3), KMT2D ( MLL2),KRAS, LDB1, LRP1B, LZTR1, M AP2K1, MDM2, MLH1, MSH2,MSH3 , MSH6, MYB, MYBL1, MYC, MYC N, NF1, NF2,NOTCH1, NOT CH2, NRAS, PARP1, PDGFRA, DWD6M5S ,PIK3CA, PIK3R1, PIK3R2, POLE, P OLR2A, POT1, PPM1D,AIRQQ9W, PTCH1, PTCH2, PTEN, PTPN11, P TPRD, QKI,RAF1, [...] AGBL4, ATG7, BCAN, BEND2,BIR C5, BRAF, BTBD1, K15rul16, C8orf 34, CLCN6, CLIP2,CXXC5, DD X31, DIP2C, EGFR, ELAVL3, ESR1, E TV6, EWSR1,HJW790S, OGG798D, FGFR1, FGFR3, FLI1, FO XR2, FXR1,FYCO1, GFI1, GFI1B, GL I1, GNAI1, JPX, QHMC3115,MMV457 643, MACF1, MAMLD1, MET, MK RN1, MMP16, MN1,MST1R, MYB, MYBL1, MYC, NAB2, NACC2, NA V1, NDRG1,NELFE, NFASC, NRF1, NT RK1, NTRK2, NTRK3, PCDHGA1, PCSK5, PDGFRA, PKD1, PRKCA, PT PRZ1, PVT1, QKI, RAF1,SUNI, RELA , PFP532, SEPT14, NYY03P2, SLIT1, SRGAP3,FS9YRA3, STAT6, TACC1, T ACC3, TFG, TPM3, UBE2J2, VCL,WHS C1, and YAP1.Mutation n omenclature is based on build GRCh37 (hg19). Fordetails abou t gene reference transcripts (Re fSeq accessionnumber s), specific targeted region s of each gene, andadditional i nformation about this test, [email or web address](Test ID NONCP). CLIN ICAL CORRELATIONSTes t results [...] based o n updated clinicalrelevan ce. See www.[employer].ImageVision(Test ID NONCP) for the most up to date list of genes i ncluded inthis test. Additiona l Information CLINICAL TRIALS Possible clinical trials of benef it for this patient can bef ound at the following sites :1) ClinicalTrials. gov:www.clinicalt rials.gov/ct2/s earch/advanced2) [facility]: www.[facility]/re search/clinical-t rials/3) [facility]: <www.cancer.gov /clinicaltrials/s earch> REFERENCETRANSC RIPTSequence variant nomencl ature is based on the following R efSeqaccession number (build G RCh37 (hg19)):[id number] [id number]. Spec imen Tissue, Tumor Tissue ID [id number] Released By Katie Yu M.D. Laboratory NotesThis test was developed and its performance characteristics determined by [facility] in a manner consiste nt with CLIA requirements. T his test has not been cleared or approved by the U.S. Food and D rug Administration. Per[facility] - [address] [address] BEHZAD (test [place] TEST ID: code = BEHZAD) NONCP - 79 GENE MUTATION ANALYSIS- RIGHT BRAIN [id number] (B9)DOS 08/19/2021 [facility] [id number] 15:05:00 Test Item Value Reference Interpretation Comments Range Mis test [place] 79 GMT name (test code = 7723) Misc test see comment Neuro-Onc Expan ded Panel [...] implicated inmeningioma tu morigenesis. Germline (i.e. inherited) VP8esbtppxdr ar e associated with neurofibromatos is type [...] uish between germline and so matic alterations.Con personal care worker follow-up germline testin g on a blood specimen inconj unction with genetic career guidance counselor ing if there is clinical eviden ceand/or family history suggest ing an underlying hereditary cancersyndrome. Currently, there are no known cl inically approved therapies thats pecifically target NF2 muta tions. REFERENCES1. cancer-beta.banner.ac.uk/cosmic; Nucleic Acids R es. 2016;45(D1):D77 7-D783 (PMID 92938512)2. cbi oportal.org (Version 1.5.1) ; Cancer discov. 2012;2(5):401?4 ([id number]); Sci Signal. 201 3;6(269):pl1 (PMID 89482646) 3. Mayank BERRIOS, Abdoulaye Gaitan ,Paulie goddard O.D., Rachelle WMaurice. ( Eds). WHOClassificati on of Tumours of the Central Ner vous System (Revised 4thedi tion). IARC: Moody 2016.4. Brain T umor Pathol. Jan 2016;33(4):237? 47 (PMID 36545425)5. [email or web address]. Nature communications. May 18 2017;8:12654 (P MID 37614603)7. NPJ Genom Med. 2017;2 (PMID 38054401)8. Int J Cancer. Jan 16 2001;94(2):218? 21 (PMID 07138131)9. Act a Neuropathol. Oct 2016;134(1) :155?8 (PMID 16717060)10. Na senthile communications. Nov 05 2017;8(1):186 ( PMID 96010591)ADDITI ONAL INFORMATIONMicr oscopic examination was performed by a pathologist david salguero areas of tumor for enric hment [...] GLI2, GLI3, GNA11, GN AQ, GNAS, GPS2, H3F3A,ZZDM7U8H, MULC8S9F, IDH1, IDH2, JAK2, KDM 5A, KDM5C,KDM6A, KLF4, KMT2B (ML L4), KMT2C (MLL3), KMT2D ( MLL2),KRAS, LDB1, LRP1B, LZTR1, M AP2K1, MDM2, MLH1, MSH2,MSH3 , MSH6, MYB, MYBL1, MYC, MYC N, NF1, NF2,NOTCH1, NOT CH2, NRAS, PARP1, PDGFRA, APB6R7I ,PIK3CA, PIK3R1, PIK3R2, POLE, P OLR2A, POT1, PPM1D,ZHYFW2Y, PTCH1, PTCH2, PTEN, PTPN11, P TPRD, QKI,RAF1, [...] AGBL4, ATG7, BCAN, BEND2,BIR C5, BRAF, BTBD1, R03pto48, C8orf 34, CLCN6, CLIP2,CXXC5, DD X31, DIP2C, EGFR, ELAVL3, ESR1, E TV6, EWSR1,GCR826K, QSQ488G, FGFR1, FGFR3, FLI1, FO XR2, FXR1,FYCO1, GFI1, GFI1B, GL I1, GNAI1, JPX, DXTK9420,ZMS619 643, MACF1, MAMLD1, MET, MK RN1, MMP16, MN1,MST1R, MYB, MYBL1, MYC, NAB2, NACC2, NA V1, NDRG1,NELFE, NFASC, NRF1, NT RK1, NTRK2, NTRK3, PCDHGA1, PCSK5, PDGFRA, PKD1, PRKCA, PT PRZ1, PVT1, QKI, RAF1,SUNI, RELA , JDD612, SEPT14, BIT96R7, SLIT1, SRGAP3,GQ4BZS6, STAT6, TACC1, T ACC3, TFG, TPM3, UBE2J2, VCL,WHS C1, and YAP1.Mutation n omenclature is based on build GRCh37 (hg19). Fordetails abou t gene reference transcripts (Re fSeq accessionnumber s), specific targeted region s of each gene, andadditional i nformation about this test, seewww.[email or web address](Test ID NONCP). CLIN ICAL CORRELATIONSTes t results [...] based o n updated clinicalrelevan ce. See www.[employer] OpTrip.com(Test ID NONCP) for the most up to date list of genes i ncluded inthis test. Additiona l Information CLINICAL TRIALS Possible clinical trials of benef it for this patient can bef ound at the following sites :1) ClinicalTrials. gov:www.clinicalt rials.gov/ct2/s earch/advanced2) [facility]: www.[facility]/re search/clinical-t rials/3) [facility]: <www.cancer.gov /clinicaltrials/s earch> REFERENCETRANSC RIPTSequence variant nomencl ature is based on the following R efSeqaccession number (build G RCh37 (hg19)):[id number] [id number]. Spec imen Tissue, Tumor Tissue ID [id number] Released By Katie Yu M.D. Laboratory NotesThis test was developed and its performance characteristics determined by [facility] in a manner consiste nt with CLIA requirements. T his test has not been cleared or approved by the U.S. Food and D rug Administration. Per[facility] - [address] [address] BEHZAD (test [place] TEST ID: code = BEHZAD) NONCP - 79 GENE MUTATION ANALYSIS- RIGHT BRAIN [id number] (B9)DOS 08/19/2021 [facility] [id number] 22:24:00 Test Item Value Reference Range Interpretation Comments POC glucose (test code 125 mg/dL 65-99 H Opera tor Name: = 51106-4) John Holloway Emilie ID : [id number] able: TMH Notified barrel stave inspector Interpretation Abnormal (test code = 27467-9) [facility] [id number] 22:24:00 Test Item Value Reference Range Interpretation Comments POC glucose (test code 125 mg/dL 65-99 H Opera tor Name: = 01226-4) John Holloway Frede ID : [id number] able: TMH Notified barrel stave inspector Interpretation Abnormal (test code = 33888-3) [facility] [id number] 22:24:00 Test Item Value Reference Range Interpretation Comments POC glucose (test code 125 mg/dL 65-99 H Opera tor Name: = 15536-8) John CervantesClydee ID : [id number] able: TM Notified barrel stave inspector Interpretation Abnormal (test code = 48373-1) [address]2022-06-05 14:47:26 Test Item Value Reference Range Interpretation Comments Ventricular rate (test code = 253) Atrial rate (test code = 255) [place] interval (test code = 266) QRSD interval [...] of 24-AUG-2021 00:35,-No significant change was found- [address]2022-06-05 14:47:26 Test Item Value Reference Range Interpretation Comments Ventricular rate (test code = 253) Atrial rate (test code = 255) [place] interval (test code = 266) QRSD interval [...] of 24-AUG-2021 00:35,-No significant change was found- [facility] [id number] 14:47:26 Test Item Value Reference Range Interpretation Comments Ventricular rate (test code = 253) Atrial rate (test code = 255) [place] interval (test code = 266) QRSD interval [...] of 24-AUG-2021 00:35,-No significant change was found- [facility] minute walk w/ pulse [id number] 16:54:41 Test Item Value Reference Range Interpretation [...] meters (test code = 40 m 7620) [facility]/ [facility] [id number] 16:54:41 Test Item Value Reference Range Interpretation [...] meters (test code = 40 m 7620) [facility] atrlsbmh2864-64-71 16:54:41 Test Item Value Reference Range Interpretation [...] meters (test code = 40 m 7620) [facility] OaktnfyuERYJ-HzJ-5 (COVID-19) RNA [Presence] in Respiratory specimen by FELIPA with probe trxcecxzt3778-06-89 23:48:49 Test Item Value Reference Range Interpretation Comments SARS-CoV-2 (COVID-19) RNA Not detected [Presence] in Respiratory specimen by FELIPA with probe detection (test code = 28428-1) Whether patient is employed in a Unknown healthcare setting (test code = 29661-9) Whether the patient has symptoms Unknown related to condition of interest (test code = 17802-7) Whether the patient was Unknown hospitalized for condition of interest (test code = 21450-3) Whether the patient was admitted Unknown to intensive care unit (ICU) for condition of interest (test code = 28572-1) Whether patient resides in a Unknown congregate care setting (test code = 72032-6) status (test code = Unknown 40155-5) Date and time of symptom onset Unknown (test code = 20230-6) [facility] [id number] 20:53:10 Test Item Value Reference Range Interpretation Comments Case number (test code = [id number]) Surgical pathology See link below for report (test code = PDF Lab Report 2255) Result status (test code This is Final Report = [id number]) for [id number] [place], [place] [address]urgical pathology [id number] 20:53:10 Test Item Value Reference Range Interpretation Comments Case number (test code = [id number]) Surgical pathology See link below for report (test code = PDF Lab Report 2255) Result status (test code This is Final Report = [id number]) for [id number] [place] [address] pathology [id number] 20:53:10 Test Item Value Reference Range Interpretation Comments Case number (test code = [id number]) Surgical pathology See link below for report (test code = PDF Lab Report 2255) Result status (test code This is Final Report = [id number]) [address]-2 (COVID-19) RNA [Presence] in Respiratory specimen by FELIPA with probe aesaopckh0037-54-10 20:28:44 Test Item Value Reference Range Interpretation Comments SARS-CoV-2 (COVID-19) RNA Not detected [Presence] in Respiratory specimen by FELIPA with probe detection (test code = 21868-3) Whether patient is employed in a Unknown healthcare setting (test code = 46750-1) Whether the patient has symptoms Unknown related to condition of interest (test code = 78707-2) Whether the patient was Unknown hospitalized for condition of interest (test code = 62856-4) Whether the patient was admitted Unknown to intensive care unit (ICU) for condition of interest (test code = 35113-6) Whether patient resides in a Unknown congregate care setting (test code = 33698-5) status (test code = Unknown 25659-8) Date and time of symptom onset Unknown (test code = 97391-8) [facility] sgnkuoz2942-16-36 07:40:00 Test Item Value Reference Range Interpretation Comments Urine culture No growth Specimen isolate (test after 24 InformationSpe cimen code = 39381-1) hours Source: [facility] [id number] 07:40:00 Test Item Value Reference Range Interpretation Comments Urine culture No growth Specimen isolate (test after 24 InformationSpe cimen code = 42677-4) hours Source: Urin eSpecimen Site: [facility] [id number] 07:40:00 Test Item Value Reference Range Interpretation Comments Urine culture No growth Specimen isolate (test after 24 InformationSpe cimen code = 46058-3) hours Source: Urin eSpecimen [facility] RNA [Presence] in Respiratory specimen by FELIPA with probe vfzahpmcw0855-30-02 20:09:14 Test Item Value Reference Range Interpretation Comments SARS-CoV-2 (COVID-19) RNA Not detected [Presence] in Respiratory specimen by FELIPA with probe detection (test code = 57667-4) Whether patient is employed in a Unknown healthcare setting (test code = 83132-6) Whether the patient has symptoms Unknown related to condition of interest (test code = 14427-9) Whether the patient was Unknown hospitalized for condition of interest (test code = 65798-8) Whether the patient was admitted Unknown to intensive care unit (ICU) for condition of interest (test code = 43293-5) Whether patient resides in a Unknown congregate care setting (test code = 60194-0) status (test code = Unknown 45549-6) Date and time of symptom onset Unknown (test code = 17789-8) [facility] , [id number] 02:52:00 Test Item Value Reference Range Interpretation Comments test urine, POC (test Negative code = 7568523) Internal QC (test code = 257) QC acceptable [facility] , [id number] 02:52:00 Test Item Value Reference Range Interpretation Comments test urine, POC (test Negative code = 9256954) Internal QC (test code = 257) QC acceptable [facility] , [id number] 02:52:00 Test Item Value Reference Range Interpretation Comments test urine, POC (test Negative code = 3369924) Internal QC (test code = 257) QC acceptable [facility] RNA [Presence] in Respiratory specimen by FELIPA with probe ybcyokmew1165-91-96 00:32:04 Test Item Value Reference Range Interpretation Comments SARS-CoV-2 (COVID-19) RNA Not detected [Presence] in Respiratory specimen by FELIPA with probe detection (test code = 63028-4) Whether patient is employed in a Unknown healthcare setting (test code = 15798-4) Whether the patient has symptoms Unknown related to condition of interest (test code = 00538-0) Whether the patient was Unknown hospitalized for condition of interest (test code = 21729-4) Whether the patient was admitted Unknown to intensive care unit (ICU) for condition of interest (test code = 67643-8) Whether patient resides in a Unknown congregate care setting (test code = 09411-7) status (test code = Unknown 04987-8) Date and time of symptom onset Unknown (test code = 92604-8) [facility]/ [facility]PTAKE, [id number] 09:03:00 FINAL REPORT PROCEDURE: THYROID SCAN AND UPTAKES CPT CODE: 69327 INDICATION: Hyperthyroidism PROTOCOL: 0.238 mCi of I-123 [...] Hi Verified Date/Time: 11/09/2019 09:03:02 Reading Location: [address] [address] Reading [facility]
[2022-04-21 15:11] LABS: Absolute Lymphocytes (CBC) 1.9 K/uL (0.7-4.9); Hematocrit 43.9 % (36.0-45.0); Lymphocytes % 19.6 % (15.3-44.8); MCV 85.4 fL (80-100); MPV 6.7 fL (7.6-11.3); Protime INR 1.08; RBC Red Blood Cell Count 5.14 M/uL (3.86-4.86)
[2022-04-21 15:38] LABS: Albumin 3.5 g/dL (3.4-5.0); Bilirubin Direct 0.1 mg/dL (0-0.2); Bilirubin Total 0.3 mg/dL (0.2-1.0); Magnesium 2.1 mg/dL (1.6-2.4); Protein, Total 7.5 g/dL (6.4-8.2); Thyroid Stimulating Hormone 0.059 uIU/mL (0.358-3.740); Troponin High Sensitivity 37.4 pg/mL (<58.9)
[2022-04-21] MEDS ORDERED: dexAMETHasone 10 MG/ML VIAL ONE (15:47)
--- NOTE | 2022-04-21 15:58 | RAD REPORT ---
EXAM DESCRIPTION: CT - Head Brain Wo Cont - 04/21/2022 3:25 pm CLINICAL HISTORY: Visual disturbance COMPARISON: August 2021 TECHNIQUE: Computed axial tomography of the head was obtained. IV contrast was not requested. All CT scans are performed using dose optimization technique as appropriate and may include automated exposure control or mA/KV adjustment according to patient size. FINDINGS: Right sided shunt enters the right lateral ventricle. The tip lies in the adjacent brain p arenchyma. It is unchanged in appearance. Hydrocephalus is not present. Postsurgical changes left suboccipital craniotomy with gliosis. Intracranial bleed is not seen. No acute cerebral hypodensity noted . Fluid within the sinuses/ mastoids is not seen. IMPRESSION: No acute intracranial abnormality is seen. If patient's symptoms persist MRI of the bra in would be recommended.
--- NOTE | 2022-04-21 16:33 | RAD REPORT ---
EXAM DESCRIPTION: [place] Single View04/21/2022 4:09 pm CLINICAL HISTORY: Chest pain COMPARISON: August 2021 FINDINGS: Lungs appear grossly clear. The heart is normal size. Battery pack overlies the left ches t IMPRESSION: No acute abnormalities displayed
--- NOTE | 2022-04-21 16:49 | ER ---
Nurse's Notes [facility] Name: Skye Figueroa Age: 47 yrs Sex: Female : 1975 Arrival Date: 04/21/2022 Time: 14:41 Bed 12 Private MD: Diagnosis: Abnormal results of thyroid function studies;Hypokalemia Presentation: 04/21 14:42 Chief complaint: EMS states: chest discomfort radiating to left arm and SOB started 30 eh3 minutes ago. Coronavirus screen: Vaccine status: Patient reports being unvaccinated. Ebola Screen: No symptoms or risks identified at this time. Initial Sepsis Screen: Does the patient meet any 2 criteria? No. Patient's initial sepsis screen is negative. Does the patient have a suspected source of infection? No. Patient's initial sepsis screen is negative. Risk Assessment: Do you want to hurt yourself or someone else? Patient reports no desire to harm self or others. Onset of symptoms was April 21, 2022. 14:42 Method Of Arrival: EMS: [facility] 14:42 Acuity: NIDA 2 eh3 14:42 Care prior to arrival: Medication(s) given: 324mg chewable aspirin. eh3 Triage Assessment: 14:44 General: Appears in no apparent distress. uncomfortable, Behavior is cooperative, eh3 appropriate for age, anxious. Pain: Complains of pain in chest Pain radiates to left arm. EENT: No signs and/or symptoms were reported regarding the EENT system. Neuro: Level of Consciousness is awake, alert, obeys commands, Oriented to person, place, time, situation. Cardiovascular: Capillary refill < 3 seconds Patient's skin is warm and dry. Respiratory: Airway is patent Respiratory effort is even, labored, Respiratory pattern is regular, symmetrical. GI: No signs and/or symptoms were reported involving the gastrointestinal system. Abdomen is round non-distended. : No signs and/or symptoms were reported regarding the genitourinary system. Derm: No signs and/or symptoms reported regarding the dermatologic system. Skin is healthy with good turgor, Skin is pink, warm \T\ dry. Musculoskeletal: No signs and/or symptoms reported regarding the musculoskeletal system. Circulation, motion, and sensation intact. Range of motion: intact in all extremities. SHOP HAND: 17:16 LMP 04/21/2022 eh3 Historical: - Allergies: 14:44 Iodine; eh3 14:44 Naproxen; eh3 14:44 tramadol; eh3 - Home Meds: 14:44 Hydrochlorothiazide Oral for Hypertension [Active]; methimazole 10 mg Oral tab 1 tab eh3 once daily [Active]; pregabalin 50 mg Oral cap for Fibromyalgia [Active]; propranolol 20 mg Oral tab [Active]; Singulair 10 mg Oral tab 1 tab once daily [Active]; Zoloft 100 mg Oral tab 1 tab once daily [Active]; - PMHx: 14:44 Anxiety; BRAIN TUMOR; graves disease; Hydrocephalus; Migraines; Seizures; eh3 - PSHx: 14:44 Appendectomy; Brain sx; Cholecystectomy; eye sx; [employer] shunt; eh3 - Immunization history:: Adult Immunizations up to date. - Social history:: Smoking status: Patient denies any tobacco usage or history of. Patient/guardian denies using alcohol. Screenin:46 [facility] ED Fall Risk Assessment (Adult) History of falling in the last 3 months, eh3 including since admission No falls in past 3 months (0 pts) Confusion or Disorientation No (0 pts) Intoxicated or Sedated No (0 pts) Impaired Gait No (0 pts) Mobility Assist Device Used No (0 pt) Altered Elimination No (0 pt) Score/Fall Risk Level 0 - 2 = Low Risk. Abuse screen: Denies threats or abuse. Denies injuries from another. Nutritional screening: No deficits noted. Tuberculosis screening: No symptoms or risk factors identified. Assessment: 14:46 Reassessment: No changes from previously documented assessment. See triage assessment. eh3 Pain: Pain began suddenly, 30 min ago. 15:45 Reassessment: Patient and/or family updated on plan of care and expected duration. Pain eh3 level reassessed. Patient is alert, oriented x 3, equal unlabored respirations, skin warm/dry/pink. Pain: Complains of pain in chest Pain radiates to left arm Pain currently is 7 out of 10 on a pain scale. Quality of pain is described as pressure, sharp, Is continuous, Alleviated by nothing. 16:45 Reassessment: Patient appears in no apparent distress at this time. Patient and/or eh3 family updated on plan of care and expected duration. Pain level reassessed. Patient is alert, oriented x 3, equal unlabored respirations, skin warm/dry/pink. Vital Signs: 14:42 BP 142 / 84; Pulse 100; Resp 18; Pulse Ox 95% on R/A; Weight 117.93 kg; Height 5 ft. 4 eh3 in. (162.56 cm); Pain 8/10; 16:45 BP 119 / 82; Pulse 88; Resp 16; Temp 98.0(O); Pulse Ox 97% on R/A; eh3 14:42 Body Mass Index 44.63 (117.93 kg, 162.56 cm) eh3 ED Course: 14:41 Patient arrived in ED. eh3 14:41 [facility]C [facility] snw 14:41 Rigo Espino MD is Attending Physician. snw 14:44 Triage completed. eh3 14:44 Arm band placed on. eh3 14:46 Patient has correct armband on for positive identification. Bed in low position. Call eh3 light in reach. Side rails up X2. Client placed on continuous cardiac and pulse oximetry monitoring. NIBP monitoring applied. Door closed. Noise minimized. 14:46 Patient maintains SpO2 saturation greater than 95% on room air. eh3 14:49 Elinor Eng, RN is Primary Nurse. eh3 15:00 Inserted saline lock: 20 gauge in right antecubital area, using aseptic technique. eh3 Blood collected. 15:26 CT Head Brain wo Cont In Process Unspecified. EDMS 16:11 XRAY Chest (1 view) In Process Unspecified. EDMS 17:16 No provider procedures requiring assistance completed. IV discontinued, intact, eh3 bleeding controlled, No redness/swelling at site. Pressure dressing applied. Administered Medications: 14:45 Drug: Decadron - Dexamethasone 10 mg Route: IVP; Site: left antecubital; eh3 16:49 Follow up: Response: No adverse reaction eh3 14:50 Not Given (per EMS): Aspirin Chewable Tablet 324 mg PO once; 81 mg tablets x 4 snw 16:52 Drug: Potassium Effervescent Tablet 50 mEq Route: PO; eh3 17:15 Follow up: Response: No adverse reaction eh3 16:52 Drug: Tylenol 1000 mg Route: PO; eh3 17:15 Follow up: Response: No adverse reaction 3 Medication: 17:16 VIS not applicable for this client. eh3 Outcome: 16:49 Discharge ordered by MD. contreras 17:17 Patient left the ED. 3 Signatures: Dispatcher [employer] Susan York FNP-C MUD LOGGER-Csnw Elinor Eng, RN RN eh3 Corrections: (The following items were deleted from the chart) 16:26 15:45 Pain: Complains of pain in chest eh3 3 17:15 16:52 BP 119 / 82; Pulse 88bpm; Resp 16bpm; Pulse Ox 97% RA; Temp 98.0F Oral; eh3 eh3
--- NOTE | 2022-04-21 16:49 | EDPHYS ---
Physician Documentation [facility] Name: Skye Figueroa Age: 47 yrs Sex: Female : 1975 Arrival Date: 04/21/2022 Time: 14:41 Bed 12 Private MD: ED Physician Rigo Espino HPI: 04/21 14:54 This 47 yrs old Female presents to ER via EMS with complaints of Chest Pain. snw 14:54 The patient or guardian reports chest pain that is located primarily in the anterior snw chest wall, bilaterally. Onset: 1 week(s) ago, and became persistent. The pain radiates to both arms. Associated signs and symptoms: Pertinent positives: anxiety/fatigue. The chest pain is described as aching. Severity of pain: At its worst the pain was mild. EMS care prior to arrival includes: aspirin, saline lock. The patient has experienced similar episodes in the past. sees Dr. Mcc[place]. 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 04/21/2022 eh3 Historical: - Allergies: 14:44 Iodine; eh3 14:44 Naproxen; eh3 14:44 tramadol; eh3 - Home Meds: 14:44 Hydrochlorothiazide Oral for Hypertension [Active]; methimazole 10 mg Oral tab 1 tab eh3 once daily [Active]; pregabalin 50 mg Oral cap for Fibromyalgia [Active]; propranolol 20 mg Oral tab [Active]; Singulair 10 mg Oral tab 1 tab once daily [Active]; Zoloft 100 mg Oral tab 1 tab once daily [Active]; - PMHx: 14:44 Anxiety; BRAIN TUMOR; graves disease; Hydrocephalus; Migraines; Seizures; eh3 - PSHx: 14:44 Appendectomy; Brain sx; Cholecystectomy; eye sx; [employer] shunt; eh3 - Immunization history:: Adult Immunizations up to date. - Social history:: Smoking status: Patient denies any tobacco usage or history of. Patient/guardian denies using alcohol. ROS: 14:52 Eyes: Negative for injury, pain, redness, and discharge, ENT: Negative for injury, snw pain, and discharge, Neck: Negative for injury, pain, and swelling, Respiratory: Negative for shortness of breath, cough, wheezing, and pleuritic chest pain, Abdomen/GI: Negative for abdominal pain, nausea, vomiting, diarrhea, and constipation, Back: Negative for injury and pain, : Negative for injury, bleeding, discharge, and swelling, MS/Extremity: Negative for injury and deformity, Skin: Negative for injury, rash, and discoloration. 14:52 Constitutional: Positive for body aches, fatigue, malaise. 14:52 Cardiovascular: Positive for chest pain. 14:52 Neuro: Positive for anxiety/fatigue/visual disturbance. Exam: 16:50 Constitutional: This is a well developed, well nourished patient who is awake, alert, snw and in no acute distress. Head/Face: Normocephalic, atraumatic. Eyes: Pupils equal round and reactive to light, extra-ocular motions intact. Lids and lashes normal. Conjunctiva and sclera are non-icteric and not injected. Cornea within normal limits. Periorbital areas with no swelling, redness, or edema. ENT: Nares patent. No nasal discharge, no septal abnormalities noted. Tympanic membranes are normal and external auditory canals are clear. Oropharynx with no redness, swelling, or masses, exudates, or evidence of obstruction, uvula midline. Mucous membranes moist. Neck: Trachea midline, no thyromegaly or masses palpated, and no cervical lymphadenopathy. Supple, full range of motion without nuchal rigidity, or vertebral point tenderness. No Meningismus. Chest/axilla: Normal chest wall appearance and motion. Nontender with no deformity. No lesions are appreciated. 16:50 Respiratory: Lungs have equal breath sounds bilaterally, clear to auscultation and percussion. No rales, rhonchi or wheezes noted. No increased work of breathing, no retractions or nasal flaring. Abdomen/GI: Soft, non-tender, with normal bowel sounds. No distension or tympany. No guarding or rebound. No evidence of tenderness throughout. Back: No spinal tenderness. No costovertebral tenderness. Full range of motion. Skin: Warm, dry with normal turgor. Normal color with no rashes, no lesions, and no evidence of cellulitis. MS/ Extremity: Pulses equal, no cyanosis. Neurovascular intact. Full, normal range of motion. Neuro: Awake and alert, GCS 15, oriented to person, place, time, and situation. Cranial nerves II-XII grossly intact. Motor strength 5/5 in all extremities. Sensory grossly intact. Cerebellar exam normal. Normal gait. 16:50 Cardiovascular: Rate: tachycardic, Rhythm: regular. Vital Signs: 14:42 BP 142 / 84; Pulse 100; Resp 18; Pulse Ox 95% on R/A; Weight 117.93 kg; Height 5 ft. 4 eh3 in. (162.56 cm); Pain 8/10; 16:45 BP 119 / 82; Pulse 88; Resp 16; Temp 98.0(O); Pulse Ox 97% on R/A; eh3 14:42 Body Mass Index 44.63 (117.93 kg, 162.56 cm) eh3 MDM: 14:42 Patient medically screened. snw 14:51 Differential diagnosis: bacterial infection, bronchitis, pneumonia shunt malfunction. snw Data reviewed: vital signs, nurses notes, EMS record. I considered the following discharge prescriptions or medication management in the emergency department Medications were administered in the Emergency Department. See SATHISH ESPINAL per EMS. Care significantly affected by the following chronic conditions: brain tumor/graves/anxiety. Counseling: I had a detailed discussion with the patient and/or guardian regarding: the historical points, exam findings, and any diagnostic results supporting the discharge/admit diagnosis, the presence of at least one elevated blood pressure reading (>120/80) during this emergency department visit, lab results, radiology results. 14:55 HEART Score: History: Slightly Suspicious (0), ECG: Non specific repolarization snw disturbance / LBTB / PM (1), Age: > 45 and < 65 years (1), Risk Factors: No Risk Factors Known (0). The patient was not given aspirin in the Emergency Department. Administered by EMS. 16:47 Response to treatment: There is no appreciated change of the patient's symptoms at this snw time. 16:50 Special discussion: Based on the patient's history, exam, and Dx evaluation, there is snw no indication for emergent intervention or inpatient Tx. It is understood by the patient/guardian that if the Sx's persist or worsen they need to return immediately for re-evaluation. 04/21 14:49 Order name: TSH; Complete Time: 15:39 snw 04/21 14:49 Order name: Basic Metabolic Panel; Complete Time: 15:39 snw 04/21 14:49 Order name: CBC with Diff; Complete Time: 15:17 04/21 14:49 Order name: LFT's; Complete Time: 15:39 snw 04/21 14:49 Order name: Magnesium; Complete Time: 15:39 w 04/21 14:49 Order name: NT PRO-BNP; Complete Time: 15:39 w 04/21 14:49 Order name: PT-INR; Complete Time: 15:17 w 04/21 14:49 Order name: Troponin HS; Complete Time: 15:39 w 04/21 14:49 Order name: XRAY Chest (1 view); Complete Time: 16:46 w 04/21 14:49 Order name: CT Head Brain wo Cont; Complete Time: 16:03 04/21 14:49 Order name: EKG; Complete Time: 14:50 04/21 14:49 Order name: Cardiac monitoring; Complete Time: 14:49 w 04/21 14:49 Order name: EKG - Nurse/Tech; Complete Time: 14:49 04/21 14:49 Order name: IV Saline Lock; Complete Time: 15:10 04/21 14:49 Order name: Labs collected and sent; Complete Time: 15:10 04/21 14:49 Order name: O2 Per Protocol; Complete Time: 14:49 04/21 14:49 Order name: O2 Sat Monitoring; Complete Time: 14:49 snw EC:49 Rate is 95 beats/min. Rhythm is regular. QRS Nunez is Normal. AL interval is normal. T snw waves are Flattened in leads III, V3, V4, V5, V6. Clinical impression: NSR w/ Non-specific ST/T Changes. Administered Medications: 14:45 Drug: Decadron - Dexamethasone 10 mg Route: IVP; Site: left antecubital; eh3 16:49 Follow up: Response: No adverse reaction eh3 14:50 Not Given (per EMS): Aspirin Chewable Tablet 324 mg PO once; 81 mg tablets x 4 snw 16:52 Drug: Potassium Effervescent Tablet 50 mEq Route: PO; eh3 17:15 Follow up: Response: No adverse reaction eh3 16:52 Drug: Tylenol 1000 mg Route: PO; eh3 17:15 Follow up: Response: No adverse reaction eh3 Disposition: 04/22 12:38 Co-signature as Attending Physician, Rigo Espino MD I agree with the assessment and kdr plan of care. Disposition Summary: 04/21/22 16:49 Discharge Ordered Location: Home snw Condition: Stable snw Diagnosis - Abnormal results of thyroid function studies snw - Hypokalemia snw Followup: snw - With: Emergency Department - When: As needed - Reason: Worsening of condition Followup: snw - With: Private Physician - When: 2 - 3 days - Reason: Recheck today's complaints, Continuance of care, Re-evaluation by your physician Discharge Instructions: - Discharge Summary Sheet snw - Potassium Content of Foods snw - Hyperthyroidism snw - Hypokalemia snw Forms: - Medication Reconciliation Form snw - Thank You Letter snw - Antibiotic Education snw - Prescription Opioid Use snw - Family Work Release eh3 Prescriptions: - Propranolol 20 mg Oral Tablet - take 1 tablet by ORAL route every 6 hours; 100 tablet; Refills: 0, Product snw Selection Permitted - Protonix 40 mg Oral Tablet - take 1 tablet by ORAL route once daily; 30 tablet; Refills: 0, Product snw Selection Permitted Signatures: Dispatcher [employer] EDMS Rigo Espino MD MD kdr Waters, Shelly, MANAGER SCIENTIFIC-C MANAGER SCIENTIFIC-Dudleyw Elinor Eng RN RN eh3
[2022-04-21] MEDS ORDERED: POTASSIUM 25 MEQ EFFERV TAB ONE (16:51)
[2022-04-21] MEDS ORDERED: ACETAMINOPHEN 500 MG TAB ONE (16:52)
[2022-04-21 17:37] VITALS: BP 119/82; TEMP 98; O2SAT 97
--- NOTE | 2022-04-22 15:33 | EKG ---
Test Date: 2022-04-21 Test Time: 14:46:39 Feeder Associate: HILARY MEASUREMENT RESULTS: Intervals: Rate: 95 NC: 164 QRSD: 90 QT: 352 QTc: 442 Hustler: P: 31 NC: 164 QRS: 23 T: 19 INTERPRETIVE STATEMENTS: Normal sinus rhythm Cannot rule out Anterior infarct, age undetermined Abnormal ECG Compared to ECG 08/03/2021 20:49:19 No significant changes Electronically Signed On 04-22-22 15:31:13 HOME RESTORATION SERVICE SUPERVISOR by Emmanuel Durant
== END 2022-04-21 17:17 | disposition home or self-care (01) ==
LOC: ER 14:40
DX: E87.6 Hypokalemia (principal); R94.6 Abnormal results of thyroid function studies; F41.9 Anxiety disorder, unspecified; Z88.5 Allergy status to narcotic agent; Z91.048 Other nonmedicinal substance allergy status
CPT/HCPCS: 85025; 80048; 36415; 83735; 85610; 80076; 84443; 84484; 83880; 70450; 71045; J1100; 93005; 96374; 99284

== ENCOUNTER 2022-09-17 05:41 | Emergency (ER) | payer OTHER ==
--- OUTSIDE RECORDS SUMMARY | 2022-09-17 05:54 | XMS REPORT | Continuity of Care Document ---
:1975 Author Organization [facility] t Address [address] [place] [address] [address] [place] [address] Care Team Providers Name Role Phone MANJINDER CHACON Primary Care Physician Unavailable Manjinder Chacon Attending Clinician Unavailable MAGUI RAMIREZ Attending Clinician Unavailable DINO ROSARIO Attending Clinician Unavailable NICOLAS AGUAYO Attending Clinician Unavailable NICOLAS AGUAYO Attending Clinician Unavailable EDUARDO ESCALANTE Attending Clinician Unavailable EDUARDO ESCALANTE Attending Clinician Unavailable Joelle SALCIDOCChayo Attending Clinician Shila Medina RN Attending Clinician Unavailable Edyta HAHN, Yogesh Leon Attending Clinician Darlin HAHN, Lilian Kathleen Attending Clinician GULSHAN COX Attending Clinician Unavailable Gulshan Cox MD Attending Clinician Doctor Unassigned, [place] Attending Clinician Unavailable ANGELA ZUNIGA Attending Clinician Unavailable Nimtz MECHANICAL STRIPER, Angela L Attending Clinician Avery HAHN, Dino Attending Clinician YUMIKO MARRERO Attending Clinician Unavailable Nahun Ortez MD Attending Clinician Ju Frey MD, Kathy Attending Clinician Yumiko Marrero MD Attending Clinician Salena HAHN, Imani KDonyaH. Attending Clinician [facility] Lab Main Attending Clinician Unavailable IMANI MARTINO K.H. Attending Clinician Unavailable Katherine BROOKS, Kathryn Velasquez Attending Clinician [phone] Sharon HAHN, Alonso Buckner Attending Clinician oGpi ELLIS, Norman Mckay Attending Clinician Unavailable Debbie HAHN, Acacia Attending Clinician Kelvin HAHN, Joel Mendez Attending Clinician [phone] Binu HAHN, Fredi Attending Clinician Lauren Francois MD Attending Clinician Richelle Lowry MD Attending Clinician Alex Dillon MD Attending Clinician Mendez ELLIS, Rupinder Attending Clinician Unavailable FANNIE BRAMBILA S Attending Clinician Unavailable Giorgio Leonardya S Attending Clinician Travon AHHN, Pratibha Pearce Attending Clinician [facility] Nurse Attending Clinician Unavailable Angelina Quinones MD Attending Clinician ANGELINA QUINONES Attending Clinician Unavailable , Adc Echo Room 1 - Attending Clinician Unavailable Ismael Meyers Attending Clinician Denys Vázquez MD Attending Clinician LILIAN SAEED Admitting Clinician Unavailable GULSHAN COX Admitting Clinician Unavailable Gulshan Cox MD Admitting Clinician KATHY CHEUNG Admitting Clinician Unavailable Ju Frey MD, Kathy Admitting Clinician IMANI MARTINO Admitting Clinician Unavailable ACACIA LEWIS Admitting Clinician Unavailable FREDI SCHMID Admitting Clinician Unavailable FANNIE BRAMBILA Admitting Clinician Unavailable Payers Payer Name Policy Type Policy Number Effective Date Expiration Date S elsa [facility] [place] STAR [id number] 2019 PLUS 00:00:00 [place] [address] [id number] 2019 Common HEALTHCARE 00:00:00 [facility] STAR [id number] 2019 PLAN 00:00:00 Problems Condition Condition Condition Status Onset Resolution Last Treating Co mments Source Name Details Category Date Date Treatment Clinician Date SVT SVT Disease Active Overview: Univer s (supravent (supravent 3-10 Formattin ity of ricular ricular 00:00: g of this [place] tachycardi tachycardi 00 note Me dical a) a) might be Branch different from the original. Added automatic ally from request for surgery [id number] Chest Chest Disease Active Univers pain, pain, 2-20 ity of unspecif[place] type d type 00 Medical [place] Morbid Morbid Disease Active Univers obesity obesity 2-20 [place] of with body [place] mass index mass index 00 Me dical of of Branch 40.0-49.9 40.0-49.9 Mass of Mass of Disease Active Methodi brain brain 08-26 st 00:00: Hospita 00 l Brain mass Brain mass Disease Active M ethodi 08-08 st 00:00: Hospita 00 l Immune to Immune to Disease Active Uni vers varicella varicella 6-29 ity of 00:00: [place] [facility] BMI BMI Disease Active Univers 45.0-49.9, 45.0-49.9, 6-28 it y of adult adult 00:00: [place] [address] Medical Branch Excessive Excessive Disease Active Uni vers or or 6-21 ity of frequent frequent 00:00: [place] menstruati menstruati 00 Me dical on on Branch Knee pain, Knee pain, Disease Active U nivers left left 4-05 ity of 00:00: Medical Branch Knee pain, Knee pain, Disease Active U nivers left left 4-05 ity of 00:: Medical Branch Subclinica Subclinica Problem C ommon l l Spirit [id number] Allergic Problem Commo n rhinitis, Spirit unspecifie - [facility]I d [facility] y, Medical unspecifie Center d trigger [id number] Morbid Problem Commo n 9104 (severe) Spirit obesity - [facility]I due to [facility] [id number] Hyperthyro Problem Com mon idism Spirit - [facility] Laboratory Abnormal Problem Com mon test laboratory Spirit result test - [facility] abnormal [facility] Graves Graves Problem Common disease disease Spirit - [facility] 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 - CHI placement [facility] [id number] Mixed Problem Common hyperlipid Spirit emia - [facility] 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 [facility] [id number] Migraine Problem Comm on without [facility] aura and - CHI without [facility] migrainosu Medica l s, not Center intractabl e [id number] Abnormal Problem Comm on mammogram Spirit of left - CHI breast [facility] [id number] Essential Problem Comm on hypertensi Spirit on - [facility] [id number] MARYBETH Problem Common (generaliz Spirit ed anxiety - CHI disorder) [facility] [id number] Insomnia, Problem Com mon unspecifie Spirit d type - [facility] No known No known Disease Bay[place] r [...] to drug IODINE DRUG Active Med Rash 2021-0 Univers INGREDI 08-10 ity of 00:00: [place] [...] s to drug Tramadol Propensi Active Hallucinatio 2014-0 [facility] ty to ns 8-14 College adverse 00:00: of reaction 00 Medicin s to e drug Tramadol Propensi Active Hallucinatio 2014-0 Univers ty to ns 8-14 ity of adverse 00:00: [place] reaction 00 Medical s Branch TRAMADOL DRUG Active Hallucinates 2014- Un vale INGREDI 8-14 ity of 00:00: [place] 00 [facility] Social History Social Habit Start Date Stop Date Quantity Comments Source History of Tobacco Common Spirit - Use [facility] Gender identity [facility] Sexual orientation [facility] History [facility] Colle ge of Alcohol Std Drinks Medici ne History [facility] [address] ge of Alcohol Binge Medicine History of Social 2022-08-04 2022-08-[address] function 00:00:00 00:00:00 Hospital Exposure to 2022-06-22 2022-07-02 Not sure University of SARS-CoV-2 (event) 00:00:00 10:15:00 [facility] Education 2022-05-24 2022-05-24 21 University of 00:00:00 00:00:00 [facility] Alcohol intake 2021-08-26 2021-08-26 Ex-drinker [facility] 00:[facility] 00:00:00 (finding) Hospital Tobacco use and 2021-08-08 2021-08-08 Smokeless [facility] exposure 00:00:00 00:00:00 tobacco non-user Hospital History SDPR 2019-11-22 2019-11-22 3 [facility] of Alcohol Frequency 00:00:00 00:00:00 Medicin e Sex Ass[birth year] [facility] 00:[facility]00 Hospital Smoking Status Start Date Stop Date Source Never smoked tobacco [facility] Medications Ordered Filled Start Stop Current Ordering Indication Dosage Frequency Signature Comments Components Source Medication Medication Date Date Medication? Clinician (SIG) Name Name LORAZepam Yes 1mg Q6H Take 1 Method i (Ativan) 1 6-15 tablet (1 st MG tablet 00:00: mg total) Hos florencio 00 by mouth l every 6 (six) hours as needed for anxiety. fexofenadin 0 Yes 60mg Q.5D Take 1 Meth shay e (Eulalia 6-14 tablet (60 st Allergy) 60 00:00: mg total) H ospita MG tablet 00 by mouth 2 l (two) times a day. methylPREDN Yes 32mg Q.5D Take 1 Meth shay ISolone 6-14 tablet (32 st (MEDROL) 32 00:00: mg total) H ospita MG tablet 00 by mouth 2 l (two) times a day. famotidine 2023- Yes 20mg Q.5D Take 1 Meth shay (Pepcid) 20 6-14 06-14 tablet (20 s t MG tablet 00:00: 04:59 mg total) Ho spita 00 :00 by mouth 2 l (two) times a day. hydroCHLORO 0 Yes 25mg QD Take 1 Meth shay thiazide 5-04 tablet (25 st (HYDRODIURI 18:30: mg total) H ospita L) 25 MG 39 by mouth l tablet daily. levETIRAcet 2022- No 500mg [id number] Take 1 Methodi am (KEPPRA) -04 06-[id number] 500 MG 00:00: 04:59 3D (500 mg Hospita tablet 00 :00 total) by l mouth 3 (three) times a day for 30 days. sertraline 3-0 3- No 100mg QD Take 2 Met hodi (ZOLOFT) 50 5-04 -[address] MG tablet 00:00: 04:59 (100 mg Hosp isael 00 :00 total) by l mouth daily for 30 days. sumatriptan 2022-0 Yes Take by Uni vers succ/naprox 4-20 mouth as ity of en sod 08:29: needed. [place] (SUMATRIPTA 03 Medical N-NAPROXEN Branch ORAL) sertraline 2022-0 Yes Take by Univ ers HCl (ZOLOFT 4-20 mouth. ity of ORAL) 08:29: [place] [facility] sumatriptan 3-0 Yes Take by Uni vers succ/naprox 4-20 mouth as ity of en sod 08:29: needed. [place] (SUMATRIPTA 03 Medical N-NAPROXEN Branch ORAL) sertraline 2022-0 Yes Take by Univ ers HCl (ZOLOFT 4-20 mouth. ity of ORAL) 08:29: [place] [address] Medical Branch sumatriptan 3-0 Yes Take by Uni vers succ/naprox 4-20 mouth as ity of en sod 08:29: needed. [place] (SUMATRIPTA 03 Medical N-NAPROXEN Branch ORAL) sertraline 3-0 Yes Take by Univ ers HCl (ZOLOFT 4-20 mouth. ity of ORAL) 08:29: [place] [address] Medical Branch sumatriptan 3-0 Yes Take by Uni vers succ/naprox 4-20 mouth as ity of en sod 08:29: needed. [place] (SUMATRIPTA 03 Medical N-NAPROXEN Branch ORAL) sertraline 3-0 Yes Take by Univ ers HCl (ZOLOFT 4-20 mouth. ity of ORAL) 08:29: [place] [facility] sumatriptan 2023-0 Yes Take by Uni vers succ/naprox 4-20 mouth as ity of en sod 08:29: needed. [place] (SUMATRIPTA 03 Medical N-NAPROXEN Branch ORAL) sertraline 3-0 Yes Take by Univ ers HCl (ZOLOFT 4-20 mouth. ity of ORAL) 08:29: [place] 03 Medical Branch diltiazem 2023-0 Yes [id number] 30mg Take 1 Un vale 30 mg 4-20 tablet by ity of tablet 00:00: mouth [place] 00 every 8 Medical (eight) Branch hours. diltiazem 2023-0 Yes [id number] 30mg Take 1 Un vale 30 mg 4-20 tablet by ity of tablet 00:00: mouth [place] 00 every 8 Medical (eight) Branch hours. diltiazem 2023-0 Yes [id number] 30mg Take 1 Un vale 30 mg 4-20 tablet by ity of tablet 00:00: mouth [place] 00 every 8 Medical (eight) Branch hours. diltiazem 2023-0 Yes [id number] 30mg Take 1 Un vale 30 mg 4-20 tablet by ity of tablet 00:00: mouth [place] 00 every 8 Medical (eight) Branch hours. diltiazem 3-0 Yes 30mg Q.5D Take 1 Method i (CardIZEM) 4-20 tablet (30 st 30 MG 00:00: mg total) Hospita tablet 00 by mouth 2 l (two) times a day. FENTanyl PF 0 Yes 25ug 25 mcg, Uni vers (SUBLIMAZE 3-31 Slow IV ity of (PF)) 19:50: Push, [place] injection 41 Q5MIN PRN, Medi orin 25 mcg 4 doses, Branch Starting on Tue07/02/22 at 1450, Until Discontinu ed, Routine, Pain (scale 4-6), PACU ondansetron 0 Yes 4mg 4 mg, Slow Univers (ZOFRAN 3- IV Push, ity of (PF)) 19:50: PRN, 1 [place] injection 4 41 dose, Medical mg Starting Branch on Tue07/02/22 at 1450, Until Discontinu ed, Routine, Nausea and Vomiting (N/V), PACU FENTanyl PF 0 2022- No 25ug 25 mcg, Un vale (SUBLIMAZE 3-31 07-03 Slow IV ity o f (PF)) 19:50: 01:24 Push, [place] injection 41 :04 Q5MIN PRN, Medi orin 25 mcg 4 doses, Branch Starting on Tue07/02/22 at 1450, Until Tue07/02/22 at 2024, Routine, Pain (scale 4-6), PACU ondansetron 2022- No 4mg 4 mg, Slow Univers (ZOFRAN 07-02 IV Push, ity of (PF)) 19:50: 01:24 PRN, 1 [place] injection 4 41 :04 dose, Medical mg Starting Branch on Tue07/02/22 at 1450, Until Tue07/02/22 at 2023, Routine, Nausea and Vomiting (N/V), PACU FENTanyl PF 2022- No 25ug 25 mcg, Un vale (SUBLIMAZE 07-02 Slow IV ity o f (PF)) 19:50: 01:24 Push, [place] injection 41 :04 Q5MIN PRN, Medi orin 25 mcg 4 doses, Branch Starting on Tue07/02/22 at 1450, Until Tue07/02/22 at 2023, Routine, Pain (scale 4-6), PACU ondansetron 2022- No 4mg 4 mg, Slow Univers (ZOFRAN 07-02 IV Push, ity of (PF)) 19:50: 01:24 PRN, 1 [place] injection 4 41 :04 dose, Medical mg Starting Branch on Tue07/02/22 at 1450, Until Tue07/02/22 at 2023, Routine, Nausea and Vomiting (N/V), PACU lidocaine 2022- No ONCE INTRA U nivers 1% (PF) 07-02 PROCEDURE, ity o f (XYLOCAINE) 18:41: 19:38 [place] injection 09 :23 on Tue07/02/22 at Branch 1341, Until Tue07/02/22 at 1438, Routine, CV Intraproce dure lidocaine 2022- No ONCE INTRA U nivers 1% (PF) 07-02 PROCEDURE, ity o f (XYLOCAINE) 18:41: 19:38 Starting [place] injection 09 :23 on Tue07/02/22 at Branch 1341, Until Tue07/02/22 at 1438, Routine, CV Intraproce dure HYDROCHLORO Yes 10mg Take 10 mg Univers THIAZIDE 3-31 by mouth ity of ORAL 18:24: daily. [place] [facility] pregabalin 2022-0 Yes Take by Univ ers (LYRICA 3-31 mouth ity of ORAL) 18:24: daily. [place] [facility] montelukast 2022-0 Yes 10mg Take 10 mg Univers 10 mg 3-31 by mouth ity of tablet 18:24: daily. [place] [facility] sumatriptan 2022-0 Yes Take by Uni vers succ/naprox 3-31 mouth as ity of en sod 18:24: needed. [place] (SUMATRIPTA Medical N-NAPROXEN Branch ORAL) SERTraline 2022-0 Yes 100mg Take 100 Un vale 100 mg 3-31 mg by ity of tablet 18:24: mouth daily. Medical Branch sertraline 2022-0 Yes Take by Univ ers HCl (ZOLOFT 3-31 mouth. ity of ORAL) 18:24: [place] [address] Medical Branch HYDROCHLORO 2022-0 Yes 10mg Take 10 mg Univers THIAZIDE 3-31 by mouth ity of ORAL 18:24: daily. [place] [address] Medical Branch pregabalin 2022-0 Yes Take by Univ ers (LYRICA 3-31 mouth ity of ORAL) 18:24: daily. [place] [facility] montelukast 2022-0 Yes 10mg Take 10 mg Univers 10 mg 3-31 by mouth ity of tablet 18:24: daily. [place] [address] Medical Branch sumatriptan 2022-0 Yes Take by Uni vers succ/naprox 3-31 mouth as ity of en sod 18:24: needed. [place] (SUMATRIPTA Medical N-NAPROXEN Branch ORAL) SERTraline 2022-0 Yes 100mg Take 100 Un vale 100 mg 3-31 mg by ity of tablet 18:24: mouth daily. Medical Branch sertraline 2022-0 Yes Take by Univ ers HCl (ZOLOFT 3-31 mouth. ity of ORAL) 18:24: [place] [address] Medical Branch HYDROCHLORO 3-0 Yes 10mg Take 10 mg Univers THIAZIDE 3-31 by mouth ity of ORAL 18:24: daily. [place] [address] Medical Branch pregabalin 2022-0 Yes Take by Univ ers (LYRICA 3-31 mouth ity of ORAL) 18:24: daily. [place] [address] Medical Branch montelukast 2022-0 Yes 10mg Take 10 mg Univers 10 mg 3-31 by mouth ity of tablet 18:24: daily. [place] [facility] sumatriptan 2022-0 Yes Take by Uni vers succ/naprox 3-31 mouth as ity of en sod 18:24: needed. [place] (SUMATRIPTA 01 Medical N-NAPROXEN Branch ORAL) SERTraline 2022-0 Yes 100mg Take 100 Un vale 100 mg 3-31 mg by ity of tablet 18:24: mouth daily. Medical Branch sertraline 2022-0 Yes Take by Univ ers HCl (ZOLOFT 3-31 mouth. ity of ORAL) 18:24: [place] [facility] HYDROCHLORO 2022-0 Yes 10mg Take 10 mg Univers THIAZIDE 3-31 by mouth ity of ORAL 18:24: daily. [place] [facility] Branch pregabalin 2022-0 Yes Take by Univ ers (LYRICA 3-31 mouth ity of ORAL) 18:24: daily. [place] [facility] montelukast 2022-0 Yes 10mg Take 10 mg Univers 10 mg 3-31 by mouth ity of tablet 18:24: daily. [place] [facility] sumatriptan 2022-0 Yes Take by Uni vers succ/naprox 3-31 mouth as ity of en sod 18:24: needed. [place] (SUMATRIPTA Medical N-NAPROXEN Branch ORAL) SERTraline 2022-0 Yes 100mg Take 100 Un vale 100 mg 3-31 mg by ity of tablet 18:24: mouth daily. Medical Branch sertraline 2022-0 Yes Take by Univ ers HCl (ZOLOFT 3-31 mouth. ity of ORAL) 18:24: [place] [facility] HYDROCHLORO 2022-0 Yes 10mg Take 10 mg Univers THIAZIDE 3-31 by mouth ity of ORAL 18:24: daily. [place] [facility] pregabalin 2022-0 Yes Take by Univ ers (LYRICA 3-31 mouth ity of ORAL) 18:24: daily. [place] [facility] montelukast 2022-0 Yes 10mg Take 10 mg Univers 10 mg 3-31 by mouth ity of tablet 18:24: daily. [place] [facility] sumatriptan 2022-0 Yes Take by Uni vers succ/naprox 3-31 mouth as ity of en sod 18:24: needed. [place] (SUMATRIPTA Medical N-NAPROXEN Branch ORAL) SERTraline 2022-0 Yes 100mg Take 100 Un vale 100 mg 3-31 mg by ity of tablet 18:24: mouth [place] daily. Medical Branch sertraline 2022-0 Yes Take by Univ ers HCl (ZOLOFT 3-31 mouth. ity of ORAL) 18:24: [place] [facility] HYDROCHLORO 2022-0 Yes 10mg Take 10 mg Univers THIAZIDE 3-31 by mouth ity of ORAL 18:24: daily. [place] [facility] pregabalin 2022-0 Yes Take by Univ ers (LYRICA 3-31 mouth ity of ORAL) 18:24: daily. [place] [facility] montelukast 2022-0 Yes 10mg Take 10 mg Univers 10 mg 3-31 by mouth ity of tablet 18:24: daily. [place] [facility] SERTraline 2022-0 Yes 100mg Take 100 Un vale 100 mg 3-31 mg by ity of tablet 18:24: mouth [place] daily. Medical Branch HYDROCHLORO 2022-0 Yes 10mg Take 10 mg Univers THIAZIDE 3-31 by mouth ity of ORAL 18:24: daily. [place] [facility] pregabalin 2022-0 Yes Take by [facility] ers (LYRICA 3-31 mouth ity of ORAL) 18:24: daily. [place] [facility] montelukast 2022-0 Yes 10mg Take 10 mg Univers 10 mg 3-31 by mouth ity of tablet 18:24: daily. [place] [facility] SERTraline 2022-0 Yes 100mg Take 100 Un vale 100 mg 3-31 mg by ity of tablet 18:24: mouth [place] daily. Medical Branch HYDROCHLORO 2022-0 Yes 10mg Take 10 mg Univers THIAZIDE 3-31 by mouth ity of ORAL 18:24: daily. [place] [facility] pregabalin 2022-0 Yes Take by Univ ers (LYRICA 3-31 mouth ity of ORAL) 18:24: daily. [place] [facility] montelukast 2022-0 Yes 10mg Take 10 mg Univers 10 mg 3-31 by mouth ity of tablet 18:24: daily. [place] [facility] SERTraline 2023-0 Yes 100mg Take 100 Un vale 100 mg 3-31 mg by ity of tablet 18:24: mouth daily. [facility] Branch HYDROCHLORO 0 Yes 10mg Take 10 mg Univers THIAZIDE 3-31 by mouth ity of ORAL 18:24: daily. [address] pregabalin Yes Take by Univ ers (LYRICA 3-31 mouth ity of ORAL) 18:24: daily. [address] montelukast Yes 10mg Take 10 mg Univers 10 mg 3-31 by mouth ity of tablet 18:24: daily. [address] SERTraline Yes 100mg Take 100 Un vale 100 mg 3-31 mg by ity of tablet 18:24: mouth daily. [facility] Branch HYDROCHLORO 0 Yes 10mg Take 10 mg Univers THIAZIDE 3-31 by mouth ity of ORAL 18:24: daily. [address] pregabalin Yes Take by Univ ers (LYRICA 3-31 mouth ity of ORAL) 18:24: daily. [address] montelukast Yes 10mg Take 10 mg Univers 10 mg 3-31 by mouth ity of tablet 18:24: daily. [address] SERTraline Yes 100mg Take 100 Un vale 100 mg 3-31 mg by ity of tablet 18:24: mouth daily. [facility] atorvastati Yes 40mg 40 mg, Univ ers n (LIPITOR) 2-20 Oral, QPM, it y of tablet 40 23:00: [place] dose [place] mg 00 on [facility] 05/24/22 at [place] 1700, Until Discontinu ed, Routine HYDROCHLORO Yes 10mg Take 10 mg Univers THIAZIDE 2-20 by mouth ity of ORAL 20:15: daily. [address] pregabalin Yes Take by Univ ers (LYRICA 2-20 mouth ity of ORAL) 20:15: daily. [address] montelukast 0 Yes 10mg Take 10 mg Univers 10 mg 2-20 by mouth ity of tablet 20:15: daily. [address] sumatriptan Yes Take by Uni vers succ/naprox 2-20 mouth as ity of en sod 20:15: needed. [place] (SUMATRIPTA 52 Medical N-NAPROXEN Branch ORAL) SERTraline 2022-0 Yes 100mg Take 100 Un vale 100 mg 2-20 mg by ity of tablet 20:15: mouth [place] [address] daily. Medical Branch sertraline 2022-0 Yes Take by Univ ers HCl (ZOLOFT 2-20 mouth. ity of ORAL) 20:15: [place] [address] Medical Branch HYDROCHLORO 3-0 Yes 10mg Take 10 mg Univers THIAZIDE 2-20 by mouth ity of ORAL 20:15: daily. [place] [address] Medical Branch pregabalin 2022-0 Yes Take by Univ ers (LYRICA 2-20 mouth ity of ORAL) 20:15: daily. [address] Branch montelukast 2022-0 Yes 10mg Take 10 mg Univers 10 mg 2-20 by mouth ity of tablet 20:15: daily. [place] [address] Medical Branch sumatriptan 2022-0 Yes Take by Uni vers succ/naprox 2-20 mouth as ity of en sod 20:15: needed. [place] (SUMATRIPTA Medical N-NAPROXEN Branch ORAL) SERTraline 2022-0 Yes 100mg Take 100 Un vale 100 mg 2-20 mg by ity of tablet 20:15: mouth [place] [address] daily. Medical Branch sertraline 2022-0 Yes Take by Univ ers HCl (ZOLOFT 2-20 mouth. ity of ORAL) 20:15: [place] [address] Medical Branch HYDROCHLORO 3-0 Yes 10mg Take 10 mg Univers THIAZIDE 2-20 by mouth ity of ORAL 20:15: daily. [place] [address] Medical Branch pregabalin 2022-0 Yes Take by Univ ers (LYRICA 2-20 mouth ity of ORAL) 20:15: daily. [address] Branch montelukast 2022-0 Yes 10mg Take 10 mg Univers 10 mg 2-20 by mouth ity of tablet 20:15: daily. [place] [address] Medical Branch sumatriptan 2022-0 Yes Take by Uni vers succ/naprox 2-20 mouth as ity of en sod 20:15: needed. [place] (SUMATRIPTA 52 Medical N-NAPROXEN Branch ORAL) SERTraline 3-0 Yes 100mg Take 100 Un vale 100 mg 2-20 mg by ity of tablet 20:15: mouth [place] [address] daily. Medical Branch sertraline 2022-0 Yes Take by Univ ers HCl (ZOLOFT 2-20 mouth. ity of ORAL) 20:15: [place] [address] Medical Branch HYDROCHLORO 2022-0 Yes 10mg Take 10 mg Univers THIAZIDE 2-20 by mouth ity of ORAL 20:15: daily. [place] [address] Medical Branch pregabalin 2022-0 Yes Take by Univ ers (LYRICA 2-20 mouth ity of ORAL) 20:15: daily. [address] Branch montelukast 2022-0 Yes 10mg Take 10 mg Univers 10 mg 2-20 by mouth ity of tablet 20:15: daily. [place] [address] Medical Branch sumatriptan 2022-0 Yes Take by Uni vers succ/naprox 2-20 mouth as ity of en sod 20:15: needed. [place] (SUMATRIPTA Medical N-NAPROXEN Branch ORAL) SERTraline 2022-0 Yes 100mg Take 100 Un vale 100 mg 2-20 mg by ity of tablet 20:15: mouth [place] [address] daily. Medical Branch sertraline 2022-0 Yes Take by Univ ers HCl (ZOLOFT 2-20 mouth. ity of ORAL) 20:15: [address] Branch HYDROCHLORO 2022-0 Yes 10mg Take 10 mg Univers THIAZIDE 2-20 by mouth ity of ORAL 20:15: daily. [address] Branch pregabalin 2022-0 Yes Take by Univ ers (LYRICA 2-20 mouth ity of ORAL) 20:15: daily. [address] Branch montelukast 2022-0 Yes 10mg Take 10 mg Univers 10 mg 2-20 by mouth ity of tablet 20:15: daily. [place] [address] Medical Branch sumatriptan 2022-0 Yes Take by Uni vers succ/naprox 2-20 mouth as ity of en sod 20:15: needed. [place] (SUMATRIPTA 52 Medical N-NAPROXEN Branch ORAL) SERTraline 2022-0 Yes 100mg Take 100 Un vale 100 mg 2-20 mg by ity of tablet 20:15: mouth [place] [address] daily. Medical Branch sertraline 2022-0 Yes Take by Univ ers HCl (ZOLOFT 2-20 mouth. ity of ORAL) 20:15: [place] [address] Medical Branch HYDROCHLORO 3-0 Yes 10mg Take 10 mg Univers THIAZIDE 2-20 by mouth ity of ORAL 20:15: daily. [place] [address] Medical Branch pregabalin 2022-0 Yes Take by Univ ers (LYRICA 2-20 mouth ity of ORAL) 20:15: daily. [place] [address] Medical Branch montelukast 2022-0 Yes 10mg Take 10 mg Univers 10 mg 2-20 by mouth ity of tablet 20:15: daily. [place] [address] Medical Branch sumatriptan 2022-0 Yes Take by Uni vers succ/naprox 2-20 mouth as ity of en sod 20:15: needed. [place] (SUMATRIPTA Medical N-NAPROXEN Branch ORAL) SERTraline 2022-0 Yes 100mg Take 100 Un vale 100 mg 2-20 mg by ity of tablet 20:15: mouth [place] [address] daily. Medical Branch sertraline 2022-0 Yes Take by Univ ers HCl (ZOLOFT 2-20 mouth. ity of ORAL) 20:15: [place] [address] Medical Branch HYDROCHLORO 3-0 Yes 10mg Take 10 mg Univers THIAZIDE 2-20 by mouth ity of ORAL 20:15: daily. [place] [address] Medical Branch pregabalin 2022-0 Yes Take by Univ ers (LYRICA 2-20 mouth ity of ORAL) 20:15: daily. [place] [address] Medical Branch montelukast 2022-0 Yes 10mg Take 10 mg Univers 10 mg 2-20 by mouth ity of tablet 20:15: daily. [place] [address] Medical Branch sumatriptan 2022-0 Yes Take by [facility] vers succ/naprox 2-20 mouth as ity of en sod 20:15: needed. [place] (SUMATRIPTA Medical N-NAPROXEN Branch ORAL) SERTraline 3-0 Yes 100mg Take 100 Un vale 100 mg 2-20 mg by ity of tablet 20:15: mouth [place] [address] daily. Medical Branch sertraline 2022-0 Yes Take by Univ ers HCl (ZOLOFT 2-20 mouth. ity of ORAL) 20:15: [place] [address] Medical Branch HYDROCHLORO 3-0 Yes 10mg Take 10 mg [facility] THIAZIDE 2-20 by mouth ity of ORAL 20:15: daily. [place] [address] Medical Branch pregabalin 2022-0 Yes Take by Univ ers (LYRICA 2-20 mouth ity of ORAL) 20:15: daily. [place] [address] Medical Branch montelukast 2022-0 Yes 10mg Take 10 mg [facility] 10 mg 2-20 by mouth ity of tablet 20:15: daily. [place] [address] Medical Branch sumatriptan 2022-0 Yes Take by Uni vers succ/naprox 2-20 mouth as ity of en sod 20:15: needed. [place] (SUMATRIPTA 52 Medical N-NAPROXEN Branch ORAL) SERTraline 2022-0 Yes 100mg Take 100 Un vale 100 mg 2-20 mg by ity of tablet 20:15: mouth [place] [address] daily. Medical Branch sertraline 2022-0 Yes Take by Univ ers HCl (ZOLOFT 2-20 mouth. ity of ORAL) 20:15: [place] [address] Medical Branch HYDROCHLORO 2022-0 Yes 10mg Take 10 mg [facility] THIAZIDE 2-20 by mouth ity of ORAL 20:15: daily. [place] [address] Medical Branch pregabalin 2022-0 Yes Take by Univ ers (LYRICA 2-20 mouth ity of ORAL) 20:15: daily. [place] [address] Medical Branch montelukast 2022-0 Yes 10mg Take 10 mg Univers 10 mg 2-20 by mouth ity of tablet 20:15: daily. [place] [address] Medical Branch sumatriptan 2022-0 Yes Take by Uni vers succ/naprox 2-20 mouth as ity of en sod 20:15: needed. [place] (SUMATRIPTA 52 Medical N-NAPROXEN Branch ORAL) SERTraline 2022-0 Yes 100mg Take 100 Un vale 100 mg 2-20 mg by ity of tablet 20:15: mouth [place] [address] daily. Medical Branch sertraline 2022-0 Yes Take by Univ ers HCl (ZOLOFT 2-20 mouth. ity of ORAL) 20:15: [place] [address] Medical Branch HYDROCHLORO 2022-0 Yes 10mg Take 10 mg [facility] THIAZIDE 2-20 by mouth ity of ORAL 20:15: daily. [place] [address] Medical Branch pregabalin 2022-0 Yes Take by Univ ers (LYRICA 2-20 mouth ity of ORAL) 20:15: daily. [address] Branch montelukast 2022-0 Yes 10mg Take 10 mg Univers 10 mg 2-20 by mouth ity of tablet 20:15: daily. [place] [address] Medical Branch sumatriptan 2022-0 Yes Take by Uni vers succ/naprox 2-20 mouth as ity of en sod 20:15: needed. [place] (SUMATRIPTA 52 Medical N-NAPROXEN Branch ORAL) SERTraline 2022-0 Yes 100mg Take 100 Un vale 100 mg 2-20 mg by ity of tablet 20:15: mouth [place] [address] daily. Medical Branch sertraline 2022-0 Yes Take by Univ ers HCl (ZOLOFT 2-20 mouth. ity of ORAL) 20:15: [place] [address] Medical Branch HYDROCHLORO 2022-0 Yes 10mg Take 10 mg [facility] THIAZIDE 2-20 by mouth ity of ORAL 20:15: daily. [address] Branch pregabalin 2022-0 Yes Take by Univ ers (LYRICA 2-20 mouth ity of ORAL) 20:15: daily. [address] Branch montelukast 2022-0 Yes 10mg Take 10 mg Univers 10 mg 2-20 by mouth ity of tablet 20:15: daily. [place] [address] Medical Branch sumatriptan 2022-0 Yes Take by Uni vers succ/naprox 2-20 mouth as ity of en sod 20:15: needed. [place] (SUMATRIPTA Medical N-NAPROXEN Branch ORAL) SERTraline 2022-0 Yes 100mg Take 100 Un vale 100 mg 2-20 mg by ity of tablet 20:15: mouth [place] [address] daily. Medical Branch sertraline 2022-0 Yes Take by [facility] ers HCl (ZOLOFT 2-20 mouth. ity of ORAL) 20:15: [address] Branch HYDROCHLORO 3-0 Yes 10mg Take 10 mg Univers THIAZIDE 2-20 by mouth ity of ORAL 20:15: daily. [address] Branch pregabalin 2022-0 Yes Take by Univ ers (LYRICA 2-20 mouth ity of ORAL) 20:15: daily. [address] Branch montelukast 2022-0 Yes 10mg Take 10 mg Univers 10 mg 2-20 by mouth ity of tablet 20:15: daily. [address] sumatriptan 2022-0 Yes Take by Uni vers succ/naprox 2-20 mouth as ity of en sod 20:15: needed. [place] (SUMATRIPTA 52 Medical N-NAPROXEN Branch ORAL) SERTraline 3-0 Yes 100mg Take 100 Un vale 100 mg 2-20 mg by ity of tablet 20:15: mouth [place] [address] daily. Medical Branch sertraline 3-0 Yes Take by Univ ers HCl (ZOLOFT 2-20 mouth. ity of ORAL) 20:15: [place] [address] Medical Branch HYDROCHLORO 3-0 Yes 10mg Take 10 mg [facility] THIAZIDE 2-20 by mouth ity of ORAL 20:15: daily. [place] [address] Medical Branch pregabalin 3-0 Yes Take by Univ ers (LYRICA 2-20 mouth ity of ORAL) 20:15: daily. [place] [address] Medical Branch montelukast 3-0 Yes 10mg Take 10 mg Univers 10 mg 2-20 by mouth ity of tablet 20:15: daily. [place] [address] Medical Branch sumatriptan 3-0 Yes Take by Uni vers succ/naprox 2-20 mouth as ity of en sod 20:15: needed. [place] (SUMATRIPTA 52 Medical N-NAPROXEN Branch ORAL) SERTraline 3-0 Yes 100mg Take 100 Un vale 100 mg 2-20 mg by ity of tablet 20:15: mouth [place] [address] daily. Medical Branch sertraline 3-0 Yes Take by Univ ers HCl (ZOLOFT 2-20 mouth. ity of ORAL) 20:15: [place] [address] Medical Branch HYDROCHLORO 3-0 Yes 10mg Take 10 mg Univers THIAZIDE 2-20 by mouth ity of ORAL 20:15: daily. [place] [address] Medical Branch pregabalin 3-0 Yes Take by Univ ers (LYRICA 2-20 mouth ity of ORAL) 20:15: daily. [place] [address] Medical Branch montelukast 3-0 Yes 10mg Take 10 mg Univers 10 mg 2-20 by mouth ity of tablet 20:15: daily. [place] [address] Medical Branch sumatriptan 2023-0 Yes Take by Uni vers succ/naprox 2-20 mouth as ity of en sod 20:15: needed. [place] (SUMATRIPTA 52 Medical N-NAPROXEN Branch ORAL) SERTraline 2023-0 Yes 100mg Take 100 Un vale 100 mg 2-20 mg by ity of tablet 20:15: mouth [place] 52 daily. Medical Branch sertraline Yes Take by [facility] ers HCl (ZOLOFT 2-20 mouth. ity of ORAL) 20:15: [place] 52 Medical Branch sulfur 2022-0 2022- No [id number] 5mL 5 mL, Unive rs hexafluorid 05-24 Intravenou i ty of e microsphr 17:45: 17:45 s, ONCE, 1 [place] (LUMASON) 00 :00 dose, On Medica l injection 5 [facility] Branch mL 05/24/22 at 1145, Routine
[employer] operations [employer] member approving Restricted medication : FARSHAD CHACON pantoprazol Yes 40mg 40 mg, Univ ers e 2-20 Oral, ity of (PROTONIX) 15:00: DAILY, [place] EC tablet 00 First dose Medi orin 40 mg on [facility] 05/24/22 at 0900, Until Discontinu ed, Routine aspirin 2022- No 81mg 81 mg, Univers chewable 05-24 Oral, ity of tablet 81 15:00: 19:14 DAILY, [place] mg 00 :40 First dose Medical on [facility] Branch 05/24/22 at 0900, Until Discontinu ed, Routine heparin Yes 5000U 5,000 Univers (porcine) 2-20 Units, ity of injection 14:00: [place] 5,000 Units 00 us, Q12H, Med ical First dose Branch on Tue05/24/22 at 0800, Until Discontinu ed, Routine ondansetron Yes 4mg 4 mg, Slow Univers (ZOFRAN 2-20 IV Push, ity of (PF)) 11:05: Q6HPRN, [place] injection 4 33 Starting Medi orin mg on [facility] Branch 05/24/22 at 0505, Until Discontinu ed, Routine, Nausea and Vomiting (N/V) morpHINE (4 2022- No 4mg 4 mg, Slow Univers mg/mL) 05-24 IV Push, ity of injection 4 11:05: 11:04 Q4HPRN, [place] mg 16 :16 Starting Medical on Tue Branch 05/24/22 at 0505, Until Tu05/25/22 at 0504, Routine, Pain (scale 7-10) acetaminoph 2022-0 Yes 650mg 650 mg, Un vale en 2-20 Oral, ity of (TYLENOL) 11:04: Q6HPRN, [place] tablet 650 52 Starting Medic al mg on Tue05/24/22 at 0504, Until Discontinu ed, Routine, Pain (scale 1-3) ondansetron 2022-0 202- No 4mg 4 mg, Slow Univers (ZOFRAN 2-20 02-20 IV Push, ity of (PF)) 07:15: 06:38 ONCE, 1 [place] injection 4 00 :00 dose, On Medi orin mg Tue [place] 05/24/22 at 0115, JOSE LUIS HYDROCHLORO 2022-0 Yes 10mg Take 10 mg Univers THIAZIDE 2-20 by mouth ity of ORAL 05:03: daily. [address] Branch pregabalin 0 Yes Take by [facility] ers (LYRICA 2-20 mouth ity of ORAL) 05:03: daily. [address] montelukast 2022-0 Yes 10mg Take 10 mg Univers 10 mg 2-20 by mouth ity of tablet 05:03: daily. [address] Branch sumatriptan 2022-0 Yes Take by Uni vers succ/naprox 2-20 mouth as ity of en sod 05:03: needed. [place] (SUMATRIPTA 28 Medical N-NAPROXEN Branch ORAL) SERTraline 2022-0 Yes 100mg Take 100 Un vale 100 mg 2-20 mg by ity of tablet 05:03: mouth [place] [address] daily. Medical Branch sertraline 2022-0 Yes Take by [facility] ers HCl (ZOLOFT 2-20 mouth. ity of ORAL) 05:03: [address] Branch sumatriptan 2022-0 Yes Take by Uni vers succ/naprox 2-14 mouth as ity of en sod 08:48: needed. [place] (SUMATRIPTA 19 Medical N-NAPROXEN Branch ORAL) SERTraline 2022-0 Yes 100mg Take 100 Un vale 100 mg 2-14 mg by ity of tablet 08:48: mouth [place] 19 daily. Medical Branch sumatriptan 2022-0 Yes Take by Uni vers succ/naprox 2-14 mouth as ity of en sod 08:48: needed. [place] (SUMATRIPTA 19 Medical N-NAPROXEN Branch ORAL) SERTraline 2023-0 Yes 100mg Take 100 Un vale 100 mg 2-14 mg by ity of tablet 08:48: mouth [place] 19 daily. Medical Branch sumatriptan 2023-0 Yes Take by Uni vers succ/naprox 2-14 mouth as ity of en sod 08:48: needed. [place] (SUMATRIPTA 19 Medical N-NAPROXEN Branch ORAL) SERTraline 2023-0 Yes 100mg Take 100 Un vale 100 mg 2-14 mg by ity of tablet 08:48: mouth [place] 19 daily. Medical Branch sumatriptan 2023-0 Yes Take by Uni vers succ/naprox 2-14 mouth as ity of en sod 08:48: needed. [place] (SUMATRIPTA 19 Medical N-NAPROXEN Branch ORAL) SERTraline 2023-0 Yes 100mg Take 100 Un vale 100 mg 2-14 mg by ity of tablet 08:48: mouth [place] 19 daily. Medical Branch sumatriptan 2023-0 Yes Take by Uni vers succ/naprox 2-14 mouth as ity of en sod 08:48: needed. [place] (SUMATRIPTA 19 Medical N-NAPROXEN Branch ORAL) SERTraline 3-0 Yes 100mg Take 100 Un vale 100 mg 2-14 mg by ity of tablet 08:48: mouth [place] 19 daily. Medical Branch sumatriptan 2023-0 Yes Take by Uni vers succ/naprox 2-14 mouth as ity of en sod 08:48: needed. [place] (SUMATRIPTA 19 Medical N-NAPROXEN Branch ORAL) SERTraline 3-0 Yes 100mg Take 100 Un vale 100 mg 2-14 mg by ity of tablet 08:48: mouth [place] 19 daily. Medical Branch Pregabalin Pregabalin 2021- No Pregabalin 75 MG 75 MG 2-19 75 MG 00:00: 00 Pregabalin Pregabalin 2021-1 No Pregabalin 75 MG 75 MG 2-19 75 MG 00:00: 00 Pregabalin Pregabalin 2021-1 No Pregabalin 75 MG 75 MG 2-19 75 MG 00:00: 00 Pregabalin Pregabalin 2021-1 No Pregabalin 75 MG 75 MG 2-19 75 MG 00:00: 00 Pregabalin Pregabalin 2021-04 No Pregabalin 75 MG 75 MG 2-19 75 MG 00:00: 00 propranoloL 2021-04- No 10mg Take 10 mg Univers 10 mg 2- 12-14 by mouth 2 ity of tablet 15:56: 00:00 (two) [place] 39 :00 times Medical daily. Branch propranoloL 2021-04 No 10mg Take 10 mg Univers 10 mg - 12-14 by mouth 2 ity of tablet 15:56: 00:00 (two) [place] 39 :00 times Medical daily. Branch Macrobid Macrobid 2021- No BID Macrobid 100 MG 100 MG -12 08-17 100 MG 00:00: 00:00 00 :00 diazePAM 2021- No Take 1 tab [facility] (Valium) 5 6- 07-19 (5mg) [facility] [facility] MG tablet 00:00: 04:59 prior to Hos [place] 00 :00 MRI for l anxiety, may repeat up to one dose every 30m as needed diazePAM 2021- No Take 1 tab [facility] (Valium) 5 6- 07-19 (5mg) [facility] [facility] MG tablet 00:00: 04:59 prior to Hos [place] 00 :00 MRI for l anxiety, may repeat up to one dose every 30m as needed diazePAM 2021- No Take 1 tab [facility] (Valium) 5 6- 07-19 (5mg) [address] [facility] MG tablet 00:00: [...] dose every 30m as needed Pregabalin Pregabalin 2-0 No Pregabalin 75 MG 75 MG 6-22 75 MG 00:00: 00 Pregabalin Pregabalin 2-0 No Pregabalin 75 MG 75 MG 6-22 75 MG 00:00: 00 Pregabalin Pregabalin 2-0 No Pregabalin 75 MG 75 MG 6-22 75 MG 00:00: 00 Pregabalin Pregabalin 2-0 No Pregabalin 75 MG 75 MG 6-22 75 MG 00:00: 00 acetaminoph No 1{tbl} Q6H Take 1 Methodi en-codeine 6-13 -[address] (TYLENOL 00:00: 04:59 mouth [facility]osp[facility] WITH 00 :00 every 6 l CODEINE #3) (six) 300-30 mg hours as per tablet needed for moderate pain for up to 10 days .acute pain. acetaminoph 1{tbl} Q6H Take 1 Methodi en-codeine 6-14 09-[address] (TYLENOL 00:00: 04:59 mouth [facility]osp[facility] WITH 00 :00 every 6 l CODEINE #3) (six) 300-30 mg hours as per tablet needed for moderate pain for up to 10 days .acute pain. acetaminoph 1{tbl} Q6H Take 1 Methodi en-codeine 6-13 -[address] (TYLENOL 00:00: 04:59 mouth [facility]osp[facility] WITH 00 :00 every 6 l CODEINE #3) (six) 300-30 mg hours as per tablet needed for moderate pain for up to 10 days .acute pain. acetaminoph No 1{tbl} Q6H Take 1 Methodi en-codeine 6-13 -[address] (TYLENOL 00:00: 04:59 mouth [facility]osp[facility] WITH 00 :00 every 6 l CODEINE #3) (six) 300-30 mg hours as per tablet needed for moderate pain for up to 10 days .acute pain. acetaminoph No 1{tbl} Q6H Take 1 Methodi en-codeine 6-13 06-[address] (TYLENOL 00:00: 04:59 mouth [facility]osp[facility] WITH 00 :00 every 6 l CODEINE #3) (six) 300-30 mg hours as per tablet needed for moderate pain for up to 10 days .acute pain. sertraline 2021-0 2022- No 50mg QD Take 1 Meth shay (ZOLOFT) 50 09-10 06-10 tablet (50 s t MG tablet 00:00: 04:59 mg total) [facility] 00 :00 by mouth l daily. sertraline 2021-0 2022- No 50mg QD Take 1 Meth shay (ZOLOFT) 50 09-10 06-10 tablet (50 s t MG tablet 00:00: [...] Take 1 Meth shay (ZOLOFT) 50 09-10 05-04 tablet (50 s t MG tablet 00:00: 00:00 mg total) [facility] 00 :00 by [...] L) 25 MG 00 l tablet butalbitaL- Yes 1{tbl} Q4H Take 1 [facility] acetaminoph 6-[address] en (BUPAP) 00:00: mouth Hospit a 50-325 mg 00 every 4 l tablet (four) hours as needed (headaches ). butalbitaL- Yes 1{tbl} Q4H Take 1 [facility] acetaminoph 6-[address] en (BUPAP) 00:00: mouth Hospit a 50-325 mg 00 every 4 l tablet (four) hours as needed (headaches ). butalbitaL- Yes 1{tbl} Q4H Take 1 [facility] acetaminoph 6-[address] en (BUPAP) 00:00: mouth Hospit a 50-325 mg 00 every 4 l tablet (four) hours as needed (headaches ). butalbitaL- Yes 1{tbl} Q4H Take 1 [facility] acetaminoph 6-[address] en (BUPAP) 00:00: mouth Hospit a 50-325 mg 00 every 4 l tablet (four) hours as needed (headaches ). levETIRAcet 2022- No 500mg Q.5D Take 1 [facility] am (KEPPRA) 09-[address] 500 MG 00:00: 04:59 (500 mg Hospita tablet 00 :00 total) by l mouth 2 (two) times a day. levETIRAcet 2022- No 500mg Q.5D Take 1 [facility] (KEPPRA) 09-[address] 500 MG 00:00: 04:59 (500 mg Hospita tablet 00 :00 total) by l mouth 2 (two) times a day. levETIRAcet 2022- No 500mg Q.5D Take 1 [facility] am (KEPPRA) 09-[address] 500 MG 00:00: 04:59 (500 mg Hospita tablet 00 :00 total) by l mouth 2 (two) times a day. levETIRAcet 2022- No 500mg Q.5D Take 1 [facility] am (KEPPRA) 09-[address] 500 MG 00:00: 04:59 (500 mg Hospita tablet 00 :00 total) by l mouth 2 (two) times a day. levETIRAcet 2021-0 2022- No 500mg Q.5D Take 1 [facility] am (KEPPRA) 09-09- tablet st 500 MG 00:00: 00:00 (500 mg Hospita tablet 00 :00 total) by l mouth 2 (two) times a day. butalbitaL- 2021-0 2022- No 1{tbl} Q4H Take 1 M ethodi acetaminoph 09-[address] en (BUPAP) 00:00: 00:00 mouth Hospi ta 50-325 mg 00 :00 every 4 l tablet (four) hours as needed (headaches ). dexamethaso 2021-0 2022- No 2mg Q.5D Take 1 Met hodi ne 09-09-16 tablet (2 st (DECADRON) 00:00: 04:59 mg total) H ospita 2 MG tablet 00 :00 by mouth l every 12 (twelve) hours for 7 days. dexamethaso 2021-0 2022- No 2mg Q.5D Take 1 Met hodi ne 09-09-16 tablet (2 st (DECADRON) 00:00: 04:59 mg total) H ospita 2 MG tablet 00 :00 by mouth l every 12 (twelve) hours for 7 days. dexamethaso 2021-0 2022- No 2mg Q.5D Take 1 Met hodi ne 09-09-16 tablet (2 st (DECADRON) 00:00: 04:59 mg total) H [facility]spita 2 MG tablet 00 :00 by mouth l every 12 (twelve) hours for 7 days. dexamethaso 2021-0 2022- No 2mg Q.5D Take 1 Met hodi ne 09-09-16 tablet (2 st (DECADRON) 00:00: 04:59 mg total) H [facility]spita 2 MG tablet 00 :00 by mouth l every 12 (twelve) hours for 7 days. sertraline 2021-0 Yes Take by [facility] ers HCl (ZOLOFT 4-21 mouth. ity of ORAL) 13:25: [place] [facility] Branch sertraline 2021-0 Yes Take by Univ ers HCl (ZOLOFT 4-21 mouth. ity of ORAL) 13:25: Medical Branch sertraline 2021-0 Yes Take by Univ ers HCl (ZOLOFT 4-21 mouth. ity of ORAL) 13:25: Medical Branch sertraline 2021-0 Yes Take by Univ ers HCl (ZOLOFT 4-21 mouth. ity of ORAL) 13:25: [place] [address] Medical Branch sertraline 2021-0 Yes Take by Univ ers HCl (ZOLOFT 4-21 mouth. ity of ORAL) 13:25: [place] [address] Medical Branch sertraline 2021-0 Yes Take by Univ ers HCl (ZOLOFT 4-21 mouth. ity of ORAL) 13:25: Medical Branch SERTraline 2021-0 Yes 100mg Take 100 Un vale 100 mg 4-21 mg by ity of tablet 13:25: mouth [place] 20 daily. Medical Branch sertraline 0 Yes Take by Univ ers HCl (ZOLOFT 4-21 mouth. ity of ORAL) 13:25: [place] [address] Medical Branch SERTraline 2021-0 Yes 100mg Take 100 Un vale 100 mg 4-21 mg by ity of tablet 13:25: mouth [place] 20 daily. Medical Branch sertraline 0 Yes Take by Univ ers HCl (ZOLOFT 4-21 mouth. ity of ORAL) 13:25: Medical Branch SERTraline 2021-0 Yes 100mg Take 100 Un vale 100 mg 4-21 mg by ity of tablet 13:25: mouth [place] 20 daily. Medical Branch sertraline 2021-0 Yes Take by Univ ers HCl (ZOLOFT 4-21 mouth. ity of ORAL) 13:25: [place] [facility] Branch SERTraline 2021-0 Yes 100mg Take 100 Un vale 100 mg 4-21 mg by ity of tablet 13:25: mouth [place] 20 daily. Medical Branch sertraline 2021-0 Yes Take by Univ ers HCl (ZOLOFT 4-21 mouth. ity of ORAL) 13:25: [place] [facility] Branch SERTraline 2021-0 Yes 100mg Take 100 Un vale 100 mg 4-21 mg by ity of tablet 13:25: mouth [place] 20 daily. Medical Branch sertraline 2021-0 Yes Take by Univ ers HCl (ZOLOFT 4-21 mouth. ity of ORAL) 13:25: Medical Branch SERTraline 2021-0 Yes 100mg Take 100 Un vale 100 mg 4-21 mg by ity of tablet 13:25: mouth [place] 20 daily. Medical Branch sertraline 2021-0 Yes Take by Univ ers HCl (ZOLOFT 4-21 mouth. ity of ORAL) 13:25: Medical Branch SERTraline 2021-0 Yes 100mg Take 100 Un vale 100 mg 4-21 mg by ity of tablet 13:25: mouth [place] 20 daily. Medical Branch sertraline 2021-0 Yes Take by Univ ers HCl (ZOLOFT 4-21 mouth. ity of ORAL) 13:25: Medical Branch SERTraline 2021-0 Yes 100mg Take 100 Un vale 100 mg 4-21 mg by ity of tablet 13:25: mouth [place] 20 daily. Medical Branch sertraline 0 Yes Take by Univ ers HCl (ZOLOFT 4-21 mouth. ity of ORAL) 13:25: Medical Branch SERTraline 2021-0 Yes 100mg Take 100 Un vale 100 mg 4-21 mg by ity of tablet 13:25: mouth [place] 20 daily. Medical Branch sertraline 2021-0 Yes Take by Univ ers HCl (ZOLOFT 4-21 mouth. ity of ORAL) 13:25: Medical Branch SERTraline 2021-0 Yes 100mg Take 100 Un vale 100 mg 4-21 mg by ity of tablet 13:25: mouth [place] 20 daily. Medical Branch sertraline 2021-0 Yes Take by Univ ers HCl (ZOLOFT 4-21 mouth. ity of ORAL) 13:25: Medical Branch SERTraline 2021-0 Yes 100mg Take 100 Un vale 100 mg 4-21 mg by ity of tablet 13:25: mouth [place] 20 daily. Medical Branch sertraline 2021-0 Yes Take by Univ ers HCl (ZOLOFT 4-21 mouth. ity of ORAL) 13:25: Medical Branch sumatriptan 2021-0 Yes Take by Uni vers succ/naprox 4-21 mouth as ity of en sod 13:23: needed. [place] (SUMATRIPTA 09 Medical N-NAPROXEN Branch ORAL) propranoloL 2022-0 Yes 10mg Take 10 mg Univers 10 mg 4-21 by mouth 2 ity of tablet 13:23: (two) [place] 09 times Medical daily. Branch sumatriptan 2022-0 Yes Take by Uni vers succ/naprox 4-21 mouth as ity of en sod 13:23: needed. [place] (SUMATRIPTA 09 Medical N-NAPROXEN Branch ORAL) propranoloL 2022-0 Yes 10mg Take 10 mg Univers 10 mg 4-21 by mouth 2 ity of tablet 13:23: (two) [place] 09 times Medical daily. Branch sumatriptan 2-0 Yes Take by Uni vers succ/naprox 4-21 mouth as ity of en sod 13:23: needed. [place] (SUMATRIPTA 09 Medical N-NAPROXEN Branch ORAL) propranoloL 2022-0 Yes 10mg Take 10 mg Univers 10 mg 4-21 by mouth 2 ity of tablet 13:23: (two) [place] 09 times Medical daily. Branch sumatriptan 2-0 Yes Take by Uni vers succ/naprox 4-21 mouth as ity of en sod 13:23: needed. [place] (SUMATRIPTA 09 Medical N-NAPROXEN Branch ORAL) propranoloL 2-0 Yes 10mg Take 10 mg Univers 10 mg 4-21 by mouth 2 ity of tablet 13:23: (two) [place] 09 times Medical daily. Branch sumatriptan 2022-0 Yes Take by Uni vers succ/naprox 4-21 mouth as ity of en sod 13:23: needed. [place] (SUMATRIPTA 09 Medical N-NAPROXEN Branch ORAL) sumatriptan 2022-0 Yes Take by Uni vers succ/naprox 4-21 mouth as ity of en sod 13:23: needed. [place] (SUMATRIPTA 09 Medical N-NAPROXEN Branch ORAL) sumatriptan 2022-0 Yes Take by Uni vers succ/naprox 4-21 mouth as ity of en sod 13:23: needed. [place] (SUMATRIPTA 09 Medical N-NAPROXEN Branch ORAL) sumatriptan 2-0 Yes Take by Uni vers succ/naprox 4-21 mouth as ity of en sod 13:23: needed. [place] (SUMATRIPTA 09 Medical N-NAPROXEN Branch ORAL) sumatriptan 0 Yes Take by Uni vers succ/naprox 4-21 mouth as ity of en sod 13:23: needed. [place] (SUMATRIPTA 09 Medical N-NAPROXEN Branch ORAL) sumatriptan 2021-0 Yes Take by Uni vers succ/naprox 4-21 mouth as ity of en sod 13:23: needed. [place] (SUMATRIPTA 09 Medical N-NAPROXEN Branch ORAL) sumatriptan 2021-0 Yes Take by Uni vers succ/naprox 4-21 mouth as ity of en sod 13:23: needed. [place] (SUMATRIPTA 09 Medical N-NAPROXEN Branch ORAL) Lyrica 75 Lyrica 75 0 No 1{capsu [...] 2-03 le} MG 00:00: 00 Amoxicillin Amoxicillin 2022-0 2022- No 1{table BID Amoxicilli -Pot -Pot [...] 1-23 75 MG 00:00: 00 Rocephin Rocephin 2022-0 No 1g Commo n (Ceftriaxon (Ceftriaxon 1-03 S pirit e) e) 00:00: - [facility] Rocephin Rocephin 2021-0 No 1g Commo n (Ceftriaxon (Ceftriaxon 1-03 S pirit e) e) 00:00: - [facility] Rocephin Rocephin 2021-0 No 1g Commo n (Ceftriaxon (Ceftriaxon 1-03 S pirit e) e) 00:00: - [facility] Rocephin Rocephin 2021-0 No 1g Commo n (Ceftriaxon (Ceftriaxon 1-03 S pirit e) e) 00:00: - [facility] Rocephin Rocephin 2021-0 No 1g Commo n (Ceftriaxon (Ceftriaxon 1-03 S pirit e) e) 00:00: - [facility] Rocephin Rocephin 2021-0 No 1g Commo n (Ceftriaxon (Ceftriaxon 1-03 S pirit e) e) 00:00: - [facility] Rocephin Rocephin 2021-0 No 1g Commo n (Ceftriaxon (Ceftriaxon 1-03 S pirit e) e) 00:00: - [facility] Rocephin Rocephin 2021-0 No 1g Commo n (Ceftriaxon (Ceftriaxon 1-03 S pirit e) e) 00:00: - [facility] Rocephin Rocephin 2021-0 No 1g Commo n (Ceftriaxon (Ceftriaxon 1-03 S pirit e) e) 00:00: - [facility] Rocephin Rocephin 2021-0 No 1g Commo n (Ceftriaxon (Ceftriaxon 1-03 S pirit e) e) 00:00: - [facility] Rocephin Rocephin 2021-0 No 1g Commo n (Ceftriaxon (Ceftriaxon 1-03 S pirit e) e) 00:00: - [facility] Rocephin Rocephin 2021-0 No 1g Commo n (Ceftriaxon (Ceftriaxon 1-03 S pirit e) e) 00:00: - [facility] Roceppan Rocephin 2-0 No 1g Commo n (Ceftriaxon (Ceftriaxon 1-03 S pirit e) e) 00:00: - [facility] Rocephin Rocephin 2-0 No 1g Commo n (Ceftriaxon (Ceftriaxon 1-03 S pirit e) e) 00:00: - [facility] Rocephin Rocephin 2-0 No 1g Commo n (Ceftriaxon (Ceftriaxon 1-03 S pirit e) e) 00:00: - [facility] Marjpan Rocephin 2-0 No 1g Commo n (Ceftriaxon (Ceftriaxon 1-03 S pirit e) e) 00:00: - [facility] Marjpan Rocephin 2-0 No 1g Commo n (Ceftriaxon (Ceftriaxon 1-03 S pirit e) e) 00:00: - [facility] Sulfamethox Sulfamethox 2021-0 2022- No 1{table BID azole-Trime azole-Trime 04-06 t} thoprim thoprim 00:00: 00:00 800-160 MG 800-160 MG 00 :00 Sulfamethox Sulfamethox 2-0 2022- No 1{table BID Sulfametho azole-Trime azole-Trime 04-06 t} xazole-Tri thoprim thoprim 00:00: 00:00 methoprim 800-160 MG 800-160 MG 00 :00 800-160 MG Sulfamethox Sulfamethox 2-0 2022- No 1{table BID Sulfametho azole-Trime azole-Trime 04-06 t} xazole-Tri thoprim thoprim 00:00: 00:00 methoprim 800-160 MG 800-160 MG 00 :00 800-160 MG sertraline 2020-1 2022- No 25mg QD Take 25 mg [facility] (ZOLOFT) 25 2- 06-[address] MG tablet 00:00: 00:00 [...] ta 00 :00 l ondansetron 2020-04 Yes [id number] 4mg Take 1 [facility] (ZOFRAN 1-08 tablet by ity of ODT) 4 mg 00:00: mouth [place] disintegrat 00 every 8 Medic al ing tablet (eight) Branch hours as needed for Nausea and Vomiting (N/V). meclizine 2020-04 Yes [id number] 25mg Take 1 [facility] 25 mg 1-08 tablet by [facility] tablet 00:00: mouth [place] 00 every 6 Medical (six) Branch hours. naproxen 2020-04 Yes [id number] 500mg Take 1 [facility] (NAPROSYN) 1-08 tablet by [facility] 500 mg 00:00: mouth 2 [place] tablet 00 (two) Medical times Branch daily with meals. methocarbam 2020-04 Yes [id number] 500mg Take 1 [facility] 500 mg 1-08 tablet by [facility] tablet 00:00: mouth 4 [place] 00 (four) Medical times Branch daily as needed for Pain (scale 4-6). ondansetron 2020-04 Yes [id number] 4mg Take 1 [facility] (ZOFRAN 1-08 tablet by [facility] ODT) 4 mg 00:00: mouth [place] disintegrat 00 every 8 Medic al ing tablet (eight) Branch hours as needed for Nausea and Vomiting (N/V). meclizine 2020-04 Yes [id number] 25mg Take 1 [facility] 25 mg 1-08 tablet by [facility] tablet 00:00: mouth [place] 00 every 6 Medical (six) Branch hours. naproxen 2020-04 Yes [id number] 500mg Take 1 [facility] (NAPROSYN) 1-08 tablet by [facility] 500 mg 00:00: mouth 2 [place] tablet 00 (two) Medical times Branch daily with meals. methocarbam 2020-04 Yes [id number] 500mg Take 1 [facility] 500 mg 1-08 tablet by [facility] tablet 00:00: mouth 4 [place] 00 (four) Medical times Branch daily as needed for Pain (scale 4-6). ondansetron 2020-04 Yes [id number] 4mg Take 1 [facility] (ZOFRAN 1-08 tablet by [facility] ODT) 4 mg 00:00: mouth [place] disintegrat 00 every 8 Medic al ing tablet (eight) Branch hours as needed for Nausea and Vomiting (N/V). meclizine 2020-04 Yes [id number] 25mg Take 1 [facility] 25 mg 1-08 tablet by [facility] tablet 00:00: mouth [place] 00 every 6 Medical (six) Branch hours. naproxen 2020-04 Yes [id number] 500mg Take 1 [facility] (NAPROSYN) 1-08 tablet by [facility] 500 mg 00:00: mouth 2 [place] tablet 00 (two) Medical times Branch daily with meals. methocarbam 2020-04 Yes [id number] 500mg Take 1 [facility] o[facility] 500 mg 1-08 tablet by [facility] tablet 00:00: mouth 4 [place] 00 (four) Medical times Branch daily as needed for Pain (scale 4-6). ondansetron 2020-04 Yes [id number] 4mg Take 1 [facility] (ZOFRAN 1-08 tablet by [facility] ODT) 4 mg 00:00: mouth [place] disintegrat 00 every 8 Medic al ing tablet (eight) Branch hours as needed for Nausea and Vomiting (N/V). meclizine 2020-04 Yes [id number] 25mg Take 1 [facility] 25 mg 1-08 tablet by [facility] tablet 00:00: mouth [place] 00 every 6 Medical (six) Branch hours. naproxen 2020-04 Yes [id number] 500mg Take 1 [facility] (NAPROSYN) 1-08 tablet by [facility] 500 mg 00:00: mouth 2 [place] tablet 00 (two) Medical times Branch daily with meals. methocarbam 2020-04 Yes [id number] 500mg Take 1 [facility] 500 mg 1-08 tablet by [facility] f tablet 00:00: mouth 4 [place] 00 (four) Medical times Branch daily as needed for Pain (scale 4-6). ondansetron 2020-04 Yes [id number] 4mg Take 1 [facility] (ZOFRAN 1-08 tablet by [facility] ODT) 4 mg 00:00: mouth [place] disintegrat 00 every 8 [facility] al ing tablet (eight) Branch hours as needed for Nausea and Vomiting (N/V). meclizine 2020-04 Yes [id number] 25mg Take 1 [facility] 25 mg 1-08 tablet by [facility] tablet 00:00: mouth [place] 00 every 6 Medical (six) Branch hours. naproxen 2020-04 Yes [id number] 500mg Take 1 [facility] (NAPROSYN) 1-08 tablet by [facility] 500 mg 00:00: mouth 2 [place] tablet 00 (two) Medical times Branch daily with meals. methocarbam 2020-04 Yes [id number] 500mg Take 1 [facility] 500 mg 1-08 tablet by [facility] f tablet 00:00: mouth 4 [place] 00 (four) Medical times Branch daily as needed for Pain (scale 4-6). ondansetron 2020-04 Yes [id number] 4mg Take 1 [facility] (ZOFRAN 1-08 tablet by [facility] ODT) 4 mg 00:00: mouth [place] disintegrat 00 every 8 Medic al ing tablet (eight) Branch hours as needed for Nausea and Vomiting (N/V). meclizine 2020-04 Yes [id number] 25mg Take 1 [facility] 25 mg 1-08 tablet by [facility] tablet 00:00: mouth [place] 00 every 6 Medical (six) Branch hours. naproxen 2020-04 Yes [id number] 500mg Take 1 [facility] (NAPROSYN) 1-08 tablet by [facility] 500 mg 00:00: mouth 2 [place] tablet 00 (two) Medical times Branch daily with meals. methocarbam 2020-04 Yes [id number] 500mg Take 1 [facility] 500 mg 1-08 tablet by [facility] tablet 00:00: mouth 4 [place] 00 (four) Medical times Branch daily as needed for Pain (scale 4-6). ondansetron 2020-04 Yes [id number] 4mg Take 1 [facility] (ZOFRAN 1-08 tablet by [facility] ODT) 4 mg 00:00: mouth [place] disintegrat 00 every 8 Medic al ing tablet (eight) Branch hours as needed for Nausea and Vomiting (N/V). meclizine 2020-04 Yes [id number] 25mg Take 1 [facility] 25 mg 1-08 tablet by [facility] tablet 00:00: mouth [place] 00 every 6 Medical (six) Branch hours. naproxen 2020-04 Yes [id number] 500mg Take 1 [facility] (NAPROSYN) 1-08 tablet by [facility] 500 mg 00:00: mouth 2 [place] tablet 00 (two) Medical times Branch daily with meals. methocarbam 2020-04 Yes [id number] 500mg Take 1 [facility] 500 mg 1-08 tablet by [facility] f tablet 00:00: mouth 4 [place] 00 (four) Medical times Branch daily as needed for Pain (scale 4-6). ondansetron 2020-04 Yes [id number] 4mg Take 1 [facility] (ZOFRAN 1-08 tablet by [facility] ODT) 4 mg 00:00: mouth [place] disintegrat 00 every 8 Medic al ing tablet (eight) Branch hours as needed for Nausea and Vomiting (N/V). meclizine 2020-04 Yes [id number] 25mg Take 1 [facility] 25 mg 1-08 tablet by [facility] tablet 00:00: mouth [place] 00 every 6 Medical (six) Branch hours. naproxen 2020-04 Yes [id number] 500mg Take 1 [facility] (NAPROSYN) 1-08 tablet by [facility] 500 mg 00:00: mouth 2 [place] tablet 00 (two) Medical times Branch daily with meals. methocarbam 2020-04 Yes [id number] 500mg Take 1 [facility] 500 mg 1-08 tablet by [facility] tablet 00:00: mouth 4 [place] 00 (four) Medical times Branch daily as needed for Pain (scale 4-6). ondansetron 2020-04 Yes [id number] 4mg Take 1 [facility] (ZOFRAN 1-08 tablet by [facility] ODT) 4 mg 00:00: mouth [place] disintegrat 00 every 8 Medic al ing tablet (eight) Branch hours as needed for Nausea and Vomiting (N/V). meclizine 2020-04 Yes [id number] 25mg Take 1 [facility] 25 mg 1-08 tablet by [facility] tablet 00:00: mouth [place] 00 every 6 Medical (six) Branch hours. naproxen 2020-04 Yes [id number] 500mg Take 1 [facility] (NAPROSYN) 1-08 tablet by [facility] 500 mg 00:00: mouth 2 [place] tablet 00 (two) Medical times Branch daily with meals. methocarbam 2020-04 Yes [id number] 500mg Take 1 [facility] 500 mg 1-08 tablet by [facility] f tablet 00:00: mouth 4 [place] 00 (four) Medical times Branch daily as needed for Pain (scale 4-6). ondansetron 2020-04 Yes [id number] 4mg Take 1 [facility] (ZOFRAN 1-08 tablet by [facility] ODT) 4 mg 00:00: mouth [place] disintegrat 00 every 8 Medic al ing tablet (eight) Branch hours as needed for Nausea and Vomiting (N/V). meclizine 2020-04 Yes [id number] 25mg Take 1 [facility] 25 mg 1-08 tablet by [facility] tablet 00:00: mouth [place] 00 every 6 Medical (six) Branch hours. naproxen 2020-04 Yes [id number] 500mg Take 1 [facility] (NAPROSYN) 1-08 tablet by [facility] 500 mg 00:00: mouth 2 [place] tablet 00 (two) Medical times Branch daily with meals. methocarbam 2020-04 Yes [id number] 500mg Take 1 [facility] 500 mg 1-08 tablet by [facility] f tablet 00:00: mouth 4 [place] 00 (four) Medical times Branch daily as needed for Pain (scale 4-6). ondansetron 2020-04 Yes [id number] 4mg Take 1 [facility] (ZOFRAN 1-08 tablet by [facility] ODT) 4 mg 00:00: mouth [place] disintegrat 00 every 8 Medic al ing tablet (eight) Branch hours as needed for Nausea and Vomiting (N/V). meclizine 2020-04 Yes [id number] 25mg Take 1 [facility] 25 mg 1-08 tablet by [facility] tablet 00:00: mouth [place] 00 every 6 Medical (six) Branch hours. naproxen 2020-04 Yes [id number] 500mg Take 1 [facility] (NAPROSYN) 1-08 tablet by [facility] 500 mg 00:00: mouth 2 [place] tablet 00 (two) Medical times Branch daily with meals. methocarbam 2020-04 Yes [id number] 500mg Take 1 [facility] 500 mg 1-08 tablet by [facility] f tablet 00:00: mouth 4 [place] 00 (four) Medical times Branch daily as needed for Pain (scale 4-6). ondansetron 2020-04 Yes [id number] 4mg Take 1 [facility] (ZOFRAN 1-08 tablet by [facility] ODT) 4 mg 00:00: mouth [place] disintegrat 00 every 8 Medic al ing tablet (eight) Branch hours as needed for Nausea and Vomiting (N/V). meclizine 2020-04 Yes [id number] 25mg Take 1 [facility] 25 mg 1-08 tablet by [facility] tablet 00:00: mouth [place] 00 every 6 Medical (six) Branch hours. naproxen 2020-04 Yes [id number] 500mg Take 1 [facility] (NAPROSYN) 1-08 tablet by [facility] 500 mg 00:00: mouth 2 [place] tablet 00 (two) Medical times Branch daily with meals. methocarbam 2020-04 Yes [id number] 500mg Take 1 [facility] o[facility] 500 mg 1-08 tablet by [facility] f tablet 00:00: mouth 4 [place] 00 (four) Medical times Branch daily as needed for Pain (scale 4-6). ondansetron 2020-04 Yes [id number] 4mg Take 1 [facility] (ZOFRAN 1-08 tablet by [facility] ODT) 4 mg 00:00: mouth [place] disintegrat 00 every 8 Medic al ing tablet (eight) Branch hours as needed for Nausea and Vomiting (N/V). meclizine 2020-04 Yes [id number] 25mg Take 1 [facility] 25 mg 1-08 tablet by [facility] tablet 00:00: mouth [place] 00 every 6 Medical (six) Branch hours. naproxen 2020-04 Yes [id number] 500mg Take 1 [facility] (NAPROSYN) 1-08 tablet by [facility] 500 mg 00:00: mouth 2 [place] tablet 00 (two) Medical times Branch daily with meals. methocarbam 2020-04 Yes [id number] 500mg Take 1 [facility] 500 mg 1-08 tablet by [facility] f tablet 00:00: mouth 4 [place] 00 (four) Medical times Branch daily as needed for Pain (scale 4-6). ondansetron 2020-04 Yes [id number] 4mg Take 1 [facility] (ZOFRAN 1-08 tablet by [facility] ODT) 4 mg 00:00: mouth [place] disintegrat 00 every 8 Medic al ing tablet (eight) Branch hours as needed for Nausea and Vomiting (N/V). meclizine 2020-04 Yes [id number] 25mg Take 1 [facility] 25 mg 1-08 tablet by [facility] tablet 00:00: mouth [place] 00 every 6 Medical (six) Branch hours. naproxen 2020-04 Yes [id number] 500mg Take 1 [facility] (NAPROSYN) 1-08 tablet by [facility] 500 mg 00:00: mouth 2 [place] tablet 00 (two) Medical times Branch daily with meals. methocarbam 2020-04 Yes [id number] 500mg Take 1 [facility] o[facility] 500 mg 1-08 tablet by [facility] f tablet 00:00: mouth 4 [place] 00 (four) Medical times Branch daily as needed for Pain (scale 4-6). ondansetron 2020-04 Yes [id number] 4mg Take 1 [facility] (ZOFRAN 1-08 tablet by [facility] ODT) 4 mg 00:00: mouth [place] disintegrat 00 every 8 Medic al ing tablet (eight) Branch hours as needed for Nausea and Vomiting (N/V). meclizine 2020-04 Yes [id number] 25mg Take 1 [facility] 25 mg 1-08 tablet by [facility] tablet 00:00: mouth [place] 00 every 6 Medical (six) Branch hours. naproxen 2020-04 Yes [id number] 500mg Take 1 [facility] (NAPROSYN) 1-08 tablet by [facility] 500 mg 00:00: mouth 2 [place] tablet 00 (two) Medical times Branch daily with meals. methocarbam 2020-04 Yes [id number] 500mg Take 1 [facility] o[facility] 500 mg 1-08 tablet by [facility] o f tablet 00:00: mouth 4 [place] 00 (four) Medical times Branch daily as needed for Pain (scale 4-6). ondansetron 2020-04 Yes [id number] 4mg Take 1 [facility] (ZOFRAN 1-08 tablet by [facility] ODT) 4 mg 00:00: mouth [place] disintegrat 00 every 8 Medic al ing tablet (eight) Branch hours as needed for Nausea and Vomiting (N/V). meclizine 2020-04 Yes [id number] 25mg Take 1 [facility] 25 mg 1-08 tablet by [facility] tablet 00:00: mouth [place] 00 every 6 Medical (six) Branch hours. naproxen 2020-04 Yes [id number] 500mg Take 1 [facility] (NAPROSYN) 1-08 tablet by [facility] 500 mg 00:00: mouth 2 [place] tablet 00 (two) Medical times Branch daily with meals. methocarbam 2020-04 Yes [id number] 500mg Take 1 [facility] o[facility] 500 mg 1-08 tablet by [facility] o f tablet 00:00: mouth 4 [place] 00 (four) Medical times Branch daily as needed for Pain (scale 4-6). ondansetron 2020-04 Yes [id number] 4mg Take 1 [facility] (ZOFRAN 1-08 tablet by [facility] ODT) 4 mg 00:00: mouth [place] disintegrat 00 every 8 Medic al ing tablet (eight) Branch hours as needed for Nausea and Vomiting (N/V). meclizine 2020-04 Yes [id number] 25mg Take 1 [facility] 25 mg 1-08 tablet by [facility] tablet 00:00: mouth [place] 00 every 6 Medical (six) Branch hours. naproxen 2020-04 Yes [id number] 500mg Take 1 [facility] (NAPROSYN) 1-08 tablet by [facility] 500 mg 00:00: mouth 2 [place] tablet 00 (two) Medical times Branch daily with meals. methocarbam 2020-04 Yes [id number] 500mg Take 1 [facility] o[facility] 500 mg 1-08 tablet by [facility] o f tablet 00:00: mouth 4 [place] 00 (four) Medical times Branch daily as needed for Pain (scale 4-6). ondansetron 2020-04 Yes [id number] 4mg Take 1 [facility] (ZOFRAN 1-08 tablet by [facility] of ODT) 4 mg 00:00: mouth [place] disintegrat 00 every 8 Medic al ing tablet (eight) Branch hours as needed for Nausea and Vomiting (N/V). meclizine 2020-04 Yes [id number] 25mg Take 1 [facility] 25 mg 1-08 tablet by [facility] tablet 00:00: mouth [place] 00 every 6 Medical (six) Branch hours. naproxen 2020-04 Yes [id number] 500mg Take 1 [facility] (NAPROSYN) 1-08 tablet by [facility] 500 mg 00:00: mouth 2 [place] tablet 00 (two) Medical times Branch daily with meals. methocarbam 2020-04 Yes [id number] 500mg Take 1 [facility] o[facility] 500 mg 1-08 tablet by [facility] o f tablet 00:00: mouth 4 [place] 00 (four) Medical times Branch daily as needed for Pain (scale 4-6). ondansetron 2020-04 Yes [id number] 4mg Take 1 [facility] (ZOFRAN 1-08 tablet by [facility] ODT) 4 mg 00:00: mouth [place] disintegrat 00 every 8 Medic al ing tablet (eight) Branch hours as needed for Nausea and Vomiting (N/V). meclizine 2020-04 Yes [id number] 25mg Take 1 [facility] 25 mg 1-08 tablet by [facility] tablet 00:00: mouth [place] 00 every 6 Medical (six) Branch hours. naproxen 2020-04 Yes [id number] 500mg Take 1 [facility] (NAPROSYN) 1-08 tablet by [facility] 500 mg 00:00: mouth 2 [place] tablet 00 (two) Medical times Branch daily with meals. methocarbam 2020-04 Yes [id number] 500mg Take 1 [facility] o[facility] 500 mg 1-08 tablet by [facility] o f tablet 00:00: mouth 4 [place] 00 (four) Medical times Branch daily as needed for Pain (scale 4-6). ondansetron 2020-04 Yes [id number] 4mg Take 1 [facility] (ZOFRAN 1-08 tablet by [facility] of ODT) 4 mg 00:00: mouth [place] disintegrat 00 every 8 Medic al ing tablet (eight) Branch hours as needed for Nausea and Vomiting (N/V). meclizine 2020-04 Yes [id number] 25mg Take 1 [facility] 25 mg 1-08 tablet by [facility] tablet 00:00: mouth [place] 00 every 6 Medical (six) Branch hours. naproxen 2020-04 Yes [id number] 500mg Take 1 [facility] (NAPROSYN) 1-08 tablet by [facility] 500 mg 00:00: mouth 2 [place] tablet 00 (two) Medical times Branch daily with meals. methocarbam 2020-04 Yes [id number] 500mg Take 1 [facility] o[facility] 500 mg 1-08 tablet by [facility] o f tablet 00:00: mouth 4 [place] 00 (four) Medical times Branch daily as needed for Pain (scale 4-6). ondansetron 2020-04 Yes [id number] 4mg Take 1 [facility] (ZOFRAN 1-08 tablet by [facility] of ODT) 4 mg 00:00: mouth [place] disintegrat 00 every 8 Medic al ing tablet (eight) Branch hours as needed for Nausea and Vomiting (N/V). meclizine 2020-04 Yes [id number] 25mg Take 1 [facility] 25 mg 1-08 tablet by [facility] tablet 00:00: mouth [place] 00 every 6 Medical (six) Branch hours. naproxen 2020-04 Yes [id number] 500mg Take 1 [facility] (NAPROSYN) 1-08 tablet by [facility] 500 mg 00:00: mouth 2 [place] tablet 00 (two) Medical times Branch daily with meals. methocarbam 2020-04 Yes [id number] 500mg Take 1 [facility] o[facility] 500 mg 1-08 tablet by [facility] o f tablet 00:00: mouth 4 [place] 00 (four) Medical times Branch daily as needed for Pain (scale 4-6). ondansetron 2020-04 Yes [id number] 4mg Take 1 [facility] (ZOFRAN 1-08 tablet by [facility] of ODT) 4 mg 00:00: mouth [place] disintegrat 00 every 8 Medic al ing tablet (eight) Branch hours as needed for Nausea and Vomiting (N/V). meclizine 2020-04 Yes [id number] 25mg Take 1 [facility] 25 mg 1-08 tablet by [facility] tablet 00:00: mouth [place] 00 every 6 Medical (six) Branch hours. naproxen 2020-04 Yes [id number] 500mg Take 1 [facility] (NAPROSYN) 1-08 tablet by [facility] 500 mg 00:00: mouth 2 [place] tablet 00 (two) Medical times Branch daily with meals. methocarbam 2020-04 Yes [id number] 500mg Take 1 [facility] o[facility] 500 mg 1-08 tablet by [facility] o f tablet 00:00: mouth 4 [place] 00 (four) Medical times Branch daily as needed for Pain (scale 4-6). ondansetron 2020-04 Yes [id number] 4mg Take 1 [facility] (ZOFRAN 1-08 tablet by [facility] of ODT) 4 mg 00:00: mouth [place] disintegrat 00 every 8 Medic al ing tablet (eight) Branch hours as needed for Nausea and Vomiting (N/V). meclizine 2020-04 Yes [id number] 25mg Take 1 [facility] 25 mg 1-08 tablet by [facility] tablet 00:00: mouth [place] 00 every 6 Medical (six) Branch hours. naproxen 2020-04 Yes [id number] 500mg Take 1 [facility] (NAPROSYN) 1-08 tablet by [facility] 500 mg 00:00: mouth 2 [place] tablet 00 (two) Medical times Branch daily with meals. methocarbam 2020-04 Yes [id number] 500mg Take 1 [facility] o[facility] 500 mg 1-08 tablet by [facility] o f tablet 00:00: mouth 4 [place] 00 (four) Medical times Branch daily as needed for Pain (scale 4-6). ondansetron 2020-04 Yes [id number] 4mg Take 1 [facility] (ZOFRAN 1-08 tablet by [facility] of ODT) 4 mg 00:00: mouth [place] disintegrat 00 every 8 Medic al ing tablet (eight) Branch hours as needed for Nausea and Vomiting (N/V). meclizine 2020-04 Yes [id number] 25mg Take 1 [facility] 25 mg 1-08 tablet by [facility] tablet 00:00: mouth [place] 00 every 6 Medical (six) Branch hours. naproxen 2020-04 Yes [id number] 500mg Take 1 [facility] (NAPROSYN) 1-08 tablet by [facility] 500 mg 00:00: mouth 2 [place] tablet 00 (two) Medical times Branch daily with meals. methocarbam 2020-04 Yes [id number] 500mg Take 1 [facility] o[facility] 500 mg 1-08 tablet by [facility] o f tablet 00:00: mouth 4 [place] 00 (four) Medical times Branch daily as needed for Pain (scale 4-6). ondansetron 2020-04 Yes [id number] 4mg Take 1 [facility] (ZOFRAN 1-08 tablet by [facility] of ODT) 4 mg 00:00: mouth [place] disintegrat 00 every 8 Medic al ing tablet (eight) Branch hours as needed for Nausea and Vomiting (N/V). meclizine 2020-04 Yes [id number] 25mg Take 1 [facility] 25 mg 1-08 tablet by [facility] tablet 00:00: mouth [place] 00 every 6 Medical (six) Branch hours. naproxen 2020-04 Yes [id number] 500mg Take 1 [facility] (NAPROSYN) 1-08 tablet by [facility] 500 mg 00:00: mouth 2 [place] tablet 00 (two) Medical times Branch daily with meals. methocarbam 2020-04 Yes [id number] 500mg Take 1 [facility] o[facility] 500 mg 1-08 tablet by [facility] o f tablet 00:00: mouth 4 [place] 00 (four) Medical times Branch daily as needed for Pain (scale 4-6). ondansetron 2020-04 Yes [id number] 4mg Take 1 [facility] (ZOFRAN 1-08 tablet by [facility] of ODT) 4 mg 00:00: mouth [place] disintegrat 00 every 8 Medic al ing tablet (eight) Branch hours as needed for Nausea and Vomiting (N/V). meclizine 2020-04 Yes [id number] 25mg Take 1 [facility] 25 mg 1-08 tablet by [facility] tablet 00:00: mouth [place] 00 every 6 Medical (six) Branch hours. naproxen 2020-04 Yes [id number] 500mg Take 1 [facility] (NAPROSYN) 1-08 tablet by [facility] 500 mg 00:00: mouth 2 [place] tablet 00 (two) Medical times Branch daily with meals. methocarbam 2020-04 Yes [id number] 500mg Take 1 [facility] 500 mg 1-08 tablet by [facility] o f tablet 00:00: mouth 4 [place] 00 (four) Medical times Branch daily as needed for Pain (scale 4-6). ondansetron 2020-04 Yes [id number] 4mg Take 1 [facility] (ZOFRAN 1-08 tablet by [facility] of ODT) 4 mg 00:00: mouth [place] disintegrat 00 every 8 Medic al ing tablet (eight) Branch hours as needed for Nausea and Vomiting (N/V). meclizine 2020-04 Yes [id number] 25mg Take 1 [facility] 25 mg 1-08 tablet by [facility] tablet 00:00: mouth [place] 00 every 6 Medical (six) Branch hours. naproxen 2020-04 Yes [id number] 500mg Take 1 [facility] (NAPROSYN) 1-08 tablet by [facility] 500 mg 00:00: mouth 2 [place] tablet 00 (two) Medical times Branch daily with meals. methocarbam 2020-04 Yes [id number] 500mg Take 1 [facility] 500 mg 1-08 tablet by [facility] o f tablet 00:00: mouth 4 [place] 00 (four) Medical times Branch daily as needed for Pain (scale 4-6). ondansetron 2020-04 Yes [id number] 4mg Take 1 [facility] (ZOFRAN 1-08 tablet by [facility] of ODT) 4 mg 00:00: mouth [place] disintegrat 00 every 8 Medic al ing tablet (eight) Branch hours as needed for Nausea and Vomiting (N/V). meclizine 2020-04 Yes [id number] 25mg Take 1 [facility] 25 mg 1-08 tablet by [facility] tablet 00:00: mouth [place] 00 every 6 Medical (six) Branch hours. naproxen 2020-04 Yes [id number] 500mg Take 1 [facility] (NAPROSYN) 1-08 tablet by [facility] 500 mg 00:00: mouth 2 [place] tablet 00 (two) Medical times Branch daily with meals. methocarbam 2020-04 Yes [id number] 500mg Take 1 [facility] 500 mg 1-08 tablet by [facility] o f tablet 00:00: mouth 4 [place] 00 (four) Medical times Branch daily as needed for Pain (scale 4-6). ondansetron 2020-04 Yes [id number] 4mg Take 1 [facility] (ZOFRAN 1-08 tablet by [facility] of ODT) 4 mg 00:00: mouth [place] disintegrat 00 every 8 Medic al ing tablet (eight) Branch hours as needed for Nausea and Vomiting (N/V). meclizine 2020-04 Yes [id number] 25mg Take 1 [facility] 25 mg 1-08 tablet by [facility] tablet 00:00: mouth [place] 00 every 6 Medical (six) Branch hours. naproxen 2020-04 Yes [id number] 500mg Take 1 [facility] (NAPROSYN) 1-08 tablet by [facility] 500 mg 00:00: mouth 2 [place] tablet 00 (two) Medical times Branch daily with meals. methocarbam 2020-04 Yes [id number] 500mg Take 1 [facility] o[facility] 500 mg 1-08 tablet by [facility] o f tablet 00:00: mouth 4 [place] 00 (four) Medical times Branch daily as needed for Pain (scale 4-6). ondansetron 2020-04 Yes [id number] 4mg Take 1 [facility] (ZOFRAN 1-08 tablet by [facility] of ODT) 4 mg 00:00: mouth [place] disintegrat 00 every 8 Medic al ing tablet (eight) Branch hours as needed for Nausea and Vomiting (N/V). meclizine 2020-04 Yes [id number] 25mg Take 1 [facility] 25 mg 1-08 tablet by [facility] tablet 00:00: mouth [place] 00 every 6 Medical (six) Branch hours. naproxen 2020-04 Yes [id number] 500mg Take 1 [facility] (NAPROSYN) 1-08 tablet by [facility] 500 mg 00:00: mouth 2 [place] tablet 00 (two) Medical times Branch daily with meals. methocarbam 2020-04 Yes [id number] 500mg Take 1 [facility] o[facility] 500 mg 1-08 tablet by [facility] o f tablet 00:00: mouth 4 [place] 00 (four) Medical times Branch daily as needed for Pain (scale 4-6). ondansetron 2020-04 Yes [id number] 4mg Take 1 [facility] (ZOFRAN 1-08 tablet by [facility] of ODT) 4 mg 00:00: mouth [place] disintegrat 00 every 8 Medic al ing tablet (eight) Branch hours as needed for Nausea and Vomiting (N/V). meclizine 2020-04 Yes [id number] 25mg Take 1 [facility] 25 mg 1-08 tablet by [facility] tablet 00:00: mouth [place] 00 every 6 Medical (six) Branch hours. naproxen 2020-04 Yes [id number] 500mg Take 1 [facility] (NAPROSYN) 1-08 tablet by [facility] 500 mg 00:00: mouth 2 [place] tablet 00 (two) Medical times Branch daily with meals. methocarbam 2020-04 Yes [id number] 500mg Take 1 [facility] o[facility] 500 mg 1-08 tablet by [facility] o f tablet 00:00: mouth 4 [place] 00 (four) Medical times Branch daily as needed for Pain (scale 4-6). ondansetron 2020-04 Yes [id number] 4mg Take 1 [facility] (ZOFRAN 1-08 tablet by [facility] of ODT) 4 mg 00:00: mouth [place] disintegrat 00 every 8 Medic al ing tablet (eight) Branch hours as needed for Nausea and Vomiting (N/V). meclizine 2020-04 Yes [id number] 25mg Take 1 [facility] 25 mg 1-08 tablet by [facility] tablet 00:00: mouth [place] 00 every 6 Medical (six) Branch hours. naproxen 2020-04 Yes [id number] 500mg Take 1 [facility] (NAPROSYN) 1-08 tablet by [facility] 500 mg 00:00: mouth 2 [place] tablet 00 (two) Medical times Branch daily with meals. methocarbam 2020-04 Yes [id number] 500mg Take 1 [facility] o[facility] 500 mg 1-08 tablet by [facility] o f tablet 00:00: mouth 4 [place] 00 (four) Medical times Branch daily as needed for Pain (scale 4-6). ondansetron 2020-04 Yes [id number] 4mg Take 1 [facility] (ZOFRAN 1-08 tablet by [facility] of ODT) 4 mg 00:00: mouth [place] disintegrat 00 every 8 Medic al ing tablet (eight) Branch hours as needed for Nausea and Vomiting (N/V). meclizine 2020-04 Yes [id number] 25mg Take 1 [facility] 25 mg 1-08 tablet by [facility] tablet 00:00: mouth [place] 00 every 6 Medical (six) Branch hours. naproxen 2020-04 Yes [id number] 500mg Take 1 [facility] (NAPROSYN) 1-08 tablet by [facility] 500 mg 00:00: mouth 2 [place] tablet 00 (two) Medical times Branch daily with meals. methocarbam 2020-04 Yes [id number] 500mg Take 1 [facility] o[facility] 500 mg 1-08 tablet by [facility] o f tablet 00:00: mouth 4 [place] 00 (four) Medical times Branch daily as needed for Pain (scale 4-6). ondansetron 2020-04 Yes [id number] 4mg Take 1 [facility] (ZOFRAN 1-08 tablet by [facility] of ODT) 4 mg 00:00: mouth [place] disintegrat 00 every 8 Medic al ing tablet (eight) Branch hours as needed for Nausea and Vomiting (N/V). meclizine 2020-04 Yes [id number] 25mg Take 1 [facility] 25 mg 1-08 tablet by [facility] tablet 00:00: mouth [place] 00 every 6 Medical (six) Branch hours. naproxen 2020-04 Yes [id number] 500mg Take 1 [facility] (NAPROSYN) 1-08 tablet by [facility] 500 mg 00:00: mouth 2 [place] tablet 00 (two) Medical times Branch daily with meals. methocarbam 2020-04 Yes [id number] 500mg Take 1 [facility] o[facility] 500 mg 1-08 tablet by [facility] o f tablet 00:00: mouth 4 [place] 00 (four) Medical times Branch daily as needed for Pain (scale 4-6). ondansetron 2020-04 Yes [id number] 4mg Take 1 [facility] (ZOFRAN 1-08 tablet by ity of ODT) 4 mg 00:00: mouth [place] disintegrat 00 every 8 Medic al ing tablet (eight) Branch hours as needed for Nausea and Vomiting (N/V). meclizine 2020-04 Yes [id number] 25mg Take 1 Un vale 25 mg 1-08 tablet by ity of tablet 00:00: mouth [place] 00 every 6 Medical (six) Branch hours. naproxen 2020-04 Yes [id number] 500mg Take 1 Un vale (NAPROSYN) 1-08 tablet by ity of 500 mg 00:00: mouth 2 [place] tablet 00 (two) Medical times Branch daily with meals. methocarbam 2020-04 Yes [id number] 500mg Take 1 [facility] oL 500 mg 1-08 tablet by ity o f tablet 00:00: mouth 4 [place] 00 (four) Medical times Branch daily as needed for Pain (scale 4-6). ondansetron 2020-04 Yes [id number] 4mg Take 1 [facility] (ZOFRAN 1-08 tablet by ity of ODT) 4 mg 00:00: mouth [place] disintegrat 00 every 8 Medic al ing tablet (eight) Branch hours as needed for Nausea and Vomiting (N/V). meclizine 2020-04 Yes [id number] 25mg Take 1 Un vale 25 mg 1-08 tablet by ity of tablet 00:00: mouth [place] 00 every 6 Medical (six) Branch hours. naproxen 2020-04 Yes [id number] 500mg Take 1 Un vale (NAPROSYN) 1-08 tablet by ity of 500 mg 00:00: mouth 2 [place] tablet 00 (two) Medical times Branch daily with meals. methocarbam 2021-1 Yes [id number] 500mg Take 1 [facility] oL 500 mg 1-08 tablet by ity o f tablet 00:00: mouth 4 [place] 00 (four) Medical times Branch daily as needed for Pain (scale 4-6). ondansetron 2020-04 Yes [id number] 4mg Take 1 [facility] (ZOFRAN 1-08 tablet by ity of ODT) 4 mg 00:00: mouth [place] disintegrat 00 every 8 Medic al ing tablet (eight) Branch hours as needed for Nausea and Vomiting (N/V). meclizine 2020-04 Yes [id number] 25mg Take 1 Un vale 25 mg 1-08 tablet by ity of tablet 00:00: mouth [place] 00 every 6 Medical (six) Branch hours. naproxen 2020-04 Yes [id number] 500mg Take 1 Un vale (NAPROSYN) 1-08 tablet by ity of 500 mg 00:00: mouth 2 [place] tablet 00 (two) Medical times Branch daily with meals. methocarbam 2020-04 Yes [id number] 500mg Take 1 [facility] oL 500 mg 1-08 tablet by ity o f tablet 00:00: mouth 4 [place] 00 (four) Medical times Branch daily as needed for Pain (scale 4-6). ondansetron 2020-04 Yes [id number] 4mg Take 1 [facility] (ZOFRAN 1-08 tablet by ity of ODT) 4 mg 00:00: mouth [place] disintegrat 00 every 8 Medic al ing tablet (eight) Branch hours as needed for Nausea and Vomiting (N/V). meclizine 2020-04 Yes [id number] 25mg Take 1 Un vale 25 mg 1-08 tablet by ity of tablet 00:00: mouth [place] 00 every 6 Medical (six) Branch hours. naproxen 2020-04 Yes [id number] 500mg Take 1 Un vale (NAPROSYN) 1-08 tablet by ity of 500 mg 00:00: mouth 2 [place] tablet 00 (two) Medical times Branch daily with meals. methocarbam 2020-04 Yes [id number] 500mg Take 1 [facility] oL 500 mg 1-08 tablet by ity o f tablet 00:00: mouth 4 [place] 00 (four) Medical times Branch daily as needed for Pain (scale 4-6). ondansetron 2020-04 Yes [id number] 4mg Take 1 [facility] (ZOFRAN 1-08 tablet by ity of ODT) 4 mg 00:00: mouth [place] disintegrat 00 every 8 Medic al ing tablet (eight) Branch hours as needed for Nausea and Vomiting (N/V). meclizine 2020-04 Yes [id number] 25mg Take 1 Un vale 25 mg 1-08 tablet by ity of tablet 00:00: mouth [place] 00 every 6 Medical (six) Branch hours. naproxen 2020-04 Yes [id number] 500mg Take 1 Un vale (NAPROSYN) 1-08 tablet by ity of 500 mg 00:00: mouth 2 [place] tablet 00 (two) Medical times Branch daily with meals. methocarbam 2020-04 Yes [id number] 500mg Take 1 [facility] oL 500 mg 1-08 tablet by ity o f tablet 00:00: mouth 4 [place] 00 (four) Medical times Branch daily as needed for Pain (scale 4-6). ondansetron 2020-04 Yes [id number] 4mg Take 1 [facility] (ZOFRAN 1-08 tablet by ity of ODT) 4 mg 00:00: mouth [place] disintegrat 00 every 8 Medic al ing tablet (eight) Branch hours as needed for Nausea and Vomiting (N/V). meclizine 2020-04 Yes [id number] 25mg Take 1 Un vale 25 mg 1-08 tablet by ity of tablet 00:00: mouth [place] 00 every 6 Medical (six) Branch hours. naproxen 2020-04 Yes [id number] 500mg Take 1 Un vale (NAPROSYN) 1-08 tablet by ity of 500 mg 00:00: mouth 2 [place] tablet 00 (two) Medical times Branch daily with meals. methocarbam 2020-04 Yes [id number] 500mg Take 1 [facility] oL 500 mg 1-08 tablet by ity o f tablet 00:00: mouth 4 [place] 00 (four) Medical times Branch daily as needed for Pain (scale 4-6). ondansetron 2020-04 Yes [id number] 4mg Take 1 [facility] (ZOFRAN 1-08 tablet by ity of ODT) 4 mg 00:00: mouth [place] disintegrat 00 every 8 Medic al ing tablet (eight) Branch hours as needed for Nausea and Vomiting (N/V). meclizine 2020-04 Yes [id number] 25mg Take 1 Un vale 25 mg 1-08 tablet by ity of tablet 00:00: mouth [place] 00 every 6 Medical (six) Branch hours. naproxen 2020-04 Yes [id number] 500mg Take 1 Un vale (NAPROSYN) 1-08 tablet by ity of 500 mg 00:00: mouth 2 [place] tablet 00 (two) Medical times Branch daily with meals. methocarbam 2020-04 Yes [id number] 500mg Take 1 [facility] oL 500 mg 1-08 tablet by ity o f tablet 00:00: mouth 4 [place] 00 (four) Medical times Branch daily as needed for Pain (scale 4-6). ondansetron 2020-04 Yes [id number] 4mg Take 1 Univers (ZOFRAN 1-08 tablet by ity of ODT) 4 mg 00:00: mouth [place] disintegrat 00 every 8 Medic al ing tablet (eight) Branch hours as needed for Nausea and Vomiting (N/V). meclizine 2020-04 Yes [id number] 25mg Take 1 Un vale 25 mg 1-08 tablet by ity of tablet 00:00: mouth [place] 00 every 6 Medical (six) Branch hours. naproxen 2020-04 Yes [id number] 500mg Take 1 Un vale (NAPROSYN) 1-08 tablet by ity of 500 mg 00:00: mouth 2 [place] tablet 00 (two) Medical times Branch daily with meals. methocarbam 2020-04 Yes [id number] 500mg Take 1 [facility] oL 500 mg 1-08 tablet by ity o f tablet 00:00: mouth 4 [place] 00 (four) Medical times Branch daily as needed for Pain (scale 4-6). HYDROCHLORO 2020-04 Yes 10mg Take 10 mg [facility] THIAZIDE 0-26 by mouth ity of ORAL 08:48: daily. [address] pregabalin 2020-04 Yes Take by [facility] ers (LYRICA 0-26 mouth ity of ORAL) 08:48: daily. [address] montelukast 2020-04 Yes 10mg Take 10 mg Univers 10 mg 0-26 by mouth ity of tablet 08:48: daily. [address] HYDROCHLORO 2020-04 Yes 10mg Take 10 mg [facility] THIAZIDE 0-26 by mouth ity of ORAL 08:48: daily. [address] pregabalin 2020-04 Yes Take by Univ ers (LYRICA 0-26 mouth ity of ORAL) 08:48: daily. [address] montelukast 2020-04 Yes 10mg Take 10 mg Univers 10 mg 0-26 by mouth ity of tablet 08:48: daily. [address] HYDROCHLORO 2020-04 Yes 10mg Take 10 mg [facility] THIAZIDE 0-26 by mouth ity of ORAL 08:48: daily. [address] pregabalin 2020-04 Yes Take by Univ ers (LYRICA 0-26 mouth ity of ORAL) 08:48: daily. [address] montelukast 2020-04 Yes 10mg Take 10 mg Univers 10 mg 0-26 by mouth ity of tablet 08:48: daily. [address] HYDROCHLORO 2020-04 Yes 10mg Take 10 mg [facility] THIAZIDE 0-26 by mouth ity of ORAL 08:48: daily. [address] pregabalin 2020-04 Yes Take by Univ ers (LYRICA 0-26 mouth ity of ORAL) 08:48: daily. [address] montelukast 2020-04 Yes 10mg Take 10 mg Univers 10 mg 0-26 by mouth ity of tablet 08:48: daily. [address] HYDROCHLORO 2020-04 Yes 10mg Take 10 mg [facility] THIAZIDE 0-26 by mouth ity of ORAL 08:48: daily. [address] pregabalin 2020-04 Yes Take by Univ ers (LYRICA 0-26 mouth ity of ORAL) 08:48: daily. [address] montelukast 2020-04 Yes 10mg Take 10 mg Univers 10 mg 0-26 by mouth ity of tablet 08:48: daily. [address] HYDROCHLORO 2020-04 Yes 10mg Take 10 mg Univers THIAZIDE 0-26 by mouth ity of ORAL 08:48: daily. [address] pregabalin 2020-04 Yes Take by Univ ers (LYRICA 0-26 mouth ity of ORAL) 08:48: daily. [address] montelukast 2020-04 Yes 10mg Take 10 mg Univers 10 mg 0-26 by mouth ity of tablet 08:48: daily. [address] HYDROCHLORO 2020-04 Yes 10mg Take 10 mg Univers THIAZIDE 0-26 by mouth ity of ORAL 08:48: daily. [address] pregabalin 2020-04 Yes Take by Univ ers (LYRICA 0-26 mouth ity of ORAL) 08:48: daily. [address] montelukast 2020-04 Yes 10mg Take 10 mg Univers 10 mg 0-26 by mouth ity of tablet 08:48: daily. [address] HYDROCHLORO 2020-04 Yes 10mg Take 10 mg Univers THIAZIDE 0-26 by mouth ity of ORAL 08:48: daily. [address] pregabalin 2020-04 Yes Take by Univ ers (LYRICA 0-26 mouth ity of ORAL) 08:48: daily. [address] montelukast 2020-04 Yes 10mg Take 10 mg Univers 10 mg 0-26 by mouth ity of tablet 08:48: daily. [address] HYDROCHLORO 2020-04 Yes 10mg Take 10 mg Univers THIAZIDE 0-26 by mouth ity of ORAL 08:48: daily. [address] pregabalin 2020-04 Yes Take by Univ ers (LYRICA 0-26 mouth ity of ORAL) 08:48: daily. [address] montelukast 2020-04 Yes 10mg Take 10 mg Univers 10 mg 0-26 by mouth ity of tablet 08:48: daily. [address] HYDROCHLORO 2020-04 Yes 10mg Take 10 mg Univers THIAZIDE 0-26 by mouth ity of ORAL 08:48: daily. [address] pregabalin 2020-04 Yes Take by Univ ers (LYRICA 0-26 mouth ity of ORAL) 08:48: daily. [address] montelukast 2020-04 Yes 10mg Take 10 mg Univers 10 mg 0-26 by mouth ity of tablet 08:48: daily. [address] HYDROCHLORO 2020-04 Yes 10mg Take 10 mg Univers THIAZIDE 0-26 by mouth ity of ORAL 08:48: daily. [address] pregabalin 2020-04 Yes Take by Univ ers (LYRICA 0-26 mouth ity of ORAL) 08:48: daily. [address] montelukast 2020-04 Yes 10mg Take 10 mg Univers 10 mg 0-26 by mouth ity of tablet 08:48: daily. [address] HYDROCHLORO 2020-04 Yes 10mg Take 10 mg Univers THIAZIDE 0-26 by mouth ity of ORAL 08:48: daily. [address] pregabalin 2020-04 Yes Take by Univ ers (LYRICA 0-26 mouth ity of ORAL) 08:48: daily. [address] montelukast 2020-04 Yes 10mg Take 10 mg Univers 10 mg 0-26 by mouth ity of tablet 08:48: daily. [address] HYDROCHLORO 2020-04 Yes 10mg Take 10 mg Univers THIAZIDE 0-26 by mouth ity of ORAL 08:48: daily. [address] pregabalin 2020-04 Yes Take by Univ ers (LYRICA 0-26 mouth ity of ORAL) 08:48: daily. [address] montelukast 2020-04 Yes 10mg Take 10 mg Univers 10 mg 0-26 by mouth ity of tablet 08:48: daily. [address] HYDROCHLORO 2020-04 Yes 10mg Take 10 mg Univers THIAZIDE 0-26 by mouth ity of ORAL 08:48: daily. [address] pregabalin 2020-04 Yes Take by Univ ers (LYRICA 0-26 mouth ity of ORAL) 08:48: daily. [address] montelukast 2020-04 Yes 10mg Take 10 mg Univers 10 mg 0-26 by mouth ity of tablet 08:48: daily. [address] HYDROCHLORO 2020-04 Yes 10mg Take 10 mg [facility] THIAZIDE 0-26 by mouth ity of ORAL 08:48: daily. [address] pregabalin 2020-04 Yes Take by Univ ers (LYRICA 0-26 mouth ity of ORAL) 08:48: daily. [address] montelukast 2020-04 Yes 10mg Take 10 mg Univers 10 mg 0-26 by mouth ity of tablet 08:48: daily. [address] HYDROCHLORO 2020-04 Yes 10mg Take 10 mg Univers THIAZIDE 0-26 by mouth ity of ORAL 08:48: daily. [address] pregabalin 2020-04 Yes Take by Univ ers (LYRICA 0-26 mouth ity of ORAL) 08:48: daily. [address] montelukast 2020-04 Yes 10mg Take 10 mg Univers 10 mg 0-26 by mouth ity of tablet 08:48: daily. [address] HYDROCHLORO 2020-04 Yes 10mg Take 10 mg Univers THIAZIDE 0-26 by mouth ity of ORAL 08:48: daily. [address] pregabalin 2020-04 Yes Take by Univ ers (LYRICA 0-26 mouth ity of ORAL) 08:48: daily. [address] montelukast 2020-04 Yes 10mg Take 10 mg Univers 10 mg 0-26 by mouth ity of tablet 08:48: daily. [address] Lyrica 75 Lyrica 75 0 No 1{capsu [...] MG 9-08 le} MG 00:00: 00 propranoloL 2021- No 10mg Q.5D Take 10 [...] 10mg Q.5D Take 10 mg [facility] (INDERAL) 5-[address] 10 MG 00:00: 00:00 (two) Hospita tablet 00 :00 times a l day. methIMAzole 2019-04 Yes 10mg Take 1 Univ ers 10 mg 2-29 tablet by ity of tablet 00:00: mouth. [place] [facility] methIMAzole 2019-04 Yes 10mg Take 1 Univ ers 10 mg 2-29 tablet by ity of tablet 00:00: mouth. [place] [facility] methIMAzole 2019-04 Yes 10mg Take 1 Univ ers 10 mg 2-29 tablet by ity of tablet 00:00: mouth. [place] [facility] methIMAzole 2019-04 Yes 10mg Take 1 Univ ers 10 mg 2-29 tablet by ity of tablet 00:00: mouth. [place] [facility] methIMAzole 2019-04- No 10mg Take 1 Uni vers 10 mg 2-29 12-14 tablet by ity of tablet 00:00: 00:00 mouth. [place] 00 : [facility] methIMAzole 2019-04- No 10mg Take 1 Uni vers 10 mg 2-29 12-14 tablet by ity of tablet 00:00: 00:00 mouth. [place] 00 :00 [facility] methazolAMI 2019-04 Yes 50mg Take 50 [...] propranolol 2019-04 Yes 10mg Take 10 mg [facility] (INDERAL) 2-24 by mouth Colleg e 10 MG 19:13: two times of tablet 10 daily. Medicin e methimazole 2020-0 Yes [id number] 15mg Take 1.5 [facility] (TAPAZOLE) 9-14 Tabs by Rahatg e 10 MG 00:00: mouth of tablet 00 daily. Medicin e Propranolol Propranolol 2020-0 Yes Manjinder 1 tablet Common HCl HCl 9-10 [place] [facility] 00:00: - [facility] 00 [facility] atenolol 2020-0 Yes 50mg Take 2 [facility] (TENORMIN) 9-09 Tabs by Tavo estrella 25 MG 00:00: mouth of tablet 00 daily. Medicin e Ondansetron Ondansetron 2020-0 Yes Manjinder 1 tablet Common 8-18 [place] [facility] 00:00: tongue and - [facility] 00 allow to [facility] 30 minutes Medical prior to Center meals Ondansetron Ondansetron 2020-0 No TID Ondansetro 4 [...] l pregabalin 2020-0 Yes 75mg QD Take 1 [facility] di (LYRICA) 75 6-[address] MG capsule 00:00: (75 mg Hospi ta 00 total) by l mouth daily. (per [facility] on Drug Monitoring [facility], last filled 07/12/2022 , quantity: 30, day supply: 30) montelukast 2020-0 Yes 10mg QD Take 10 [...] l montelukast 2020-0 Yes 10mg QD Take 1 Meth shay (SINGULAIR) 4-01 tablet (10 st 10 mg 00:00: mg total) Hospita tablet 00 by mouth l daily. SUMAtriptan 2013-0 Yes 50mg Take 50 mg [facility] (IMITREX) 5-[address] 50 MG 00:00: once as Hospita tablet 00 needed for l migraine. May repeat in 2 hours if unresolved . Do not exceed 200 mg in 24 hours. SUMAtriptan 2012-0 Yes 50mg Take 50 mg [facility] (IMITREX) 5-[address] 50 MG 00:00: once as Hospita tablet 00 needed for l migraine. May repeat in 2 hours if unresolved . Do not exceed 200 mg in 24 hours. SUMAtriptan 2013-0 Yes 50mg Take 50 mg [facility] (IMITREX) 5-[address] 50 MG 00:00: once as Hospita tablet 00 needed for l migraine. May repeat in 2 hours if unresolved . Do not exceed 200 mg in 24 hours. SUMAtriptan 2013-0 Yes 50mg Take 50 mg [facility] (IMITREX) 5-[address] 50 MG 00:00: once as Hospita tablet 00 needed for l migraine. May repeat in 2 hours if unresolved . Do not exceed 200 mg in 24 hours. SUMAtriptan 2013-0 Yes 50mg Take 1 Meth shay (IMITREX) 5-01 tablet (50 st 50 MG 00:00: mg total) Hospita tablet 00 by mouth l once as needed for migraine. May repeat in 2 hours if unresolved . Do not exceed 200 mg in 24 hours. Montelukast Montelukast No Montelukas Sodium 10 Sodium [...] am 500 MG t} howe 500 MG Ambien Ambien Yes Manjinder 1 tablet Commo n [place] at bedtime [facility] as needed - [facility] Sumatriptan Sumatriptan Yes Manjinder 1 tablet Common Succinate Succinate [place] as needed [facility] Methimazole Methimazole Yes Manjinder 3 tablet Common [place] [facility] Montelukast Montelukast Yes Manjinder 1 tablet Common Sodium Sodium [place] [facility] Lyrica Lyrica Yes Manjinder 1 capsule Comm on [place] [facility] Hydrochloro Hydrochloro Yes Manjinder 1 tablet Common thiazide thiazide [place] in the Spir it morning [facility] SUMAtriptan SUMAtriptan No SUMAtripta Succinate Succinate n [...] No QD Zoloft 100 MG MG MG Immunizations Ordered Filled Immunization Date Status Comments [facility] e Immunization Name Name Influenza Virus 2020-04-01 Completed Universit y of Vaccine Quad .5 mL 00:00:00 [facility] 6+ MO Branch Influenza Virus 2020-04-01 Completed Universit y of Vaccine Quad .5 mL 00:00:00 [facility] 6+ MO Branch Influenza Virus 2020-04-01 Completed Universit y of Vaccine Quad .5 mL 00:00:00 [facility] 6+ MO Branch Influenza Virus 2020-04-01 Completed Universit y of Vaccine Quad .5 mL 00:00:00 [place] [facility] 6[facility] MO Branch Influenza Virus 2020-04-01 Completed Universit y of Vaccine Quad .5 mL 00:00:00 [place] [facility] 6+ MO Branch Influenza Virus 2020-04-01 Completed Universit y of Vaccine Quad .5 mL 00:00:00 [place] [facility] 6+ MO Branch Influenza Virus 2020-04-01 Completed Universit y of Vaccine Quad .5 mL 00:00:00 [place] [facility] 6+ MO Branch Influenza Virus 2020-04-01 Completed Universit y of Vaccine Quad .5 mL 00:00:00 [place] [facility] 6+ MO Branch Influenza Virus 2020-04-01 Completed Universit y of Vaccine Quad .5 mL 00:00:00 [facility] 6+ MO Branch Influenza Virus 2020-04-01 Completed Universit y of Vaccine Quad .5 mL 00:00:00 [place] [facility] 6+ MO Branch Influenza Virus 2020-04-01 Completed Universit y of Vaccine Quad .5 mL 00:00:00 [place] [facility] IM 6+ MO Branch Influenza Virus 2020-04-01 Completed Universit y of Vaccine Quad .5 mL 00:00:00 [place] [facility] IM 6+ MO Branch Influenza Virus 2020-04-01 Completed Universit y of Vaccine Quad .5 mL 00:00:00 [place] [facility] IM 6+ MO Branch Influenza Virus 2020-04-01 Completed Universit y of Vaccine Quad .5 mL 00:00:00 [place] [facility] IM 6+ MO Branch Influenza Virus 2020-04-01 Completed Universit y of Vaccine Quad .5 mL 00:00:00 [place] [facility] IM 6+ MO Branch Influenza Virus 2020-04-01 Completed Universit y of Vaccine Quad .5 mL 00:00:00 [place] [facility] IM 6+ MO Branch Influenza Virus 2020-04-01 Completed Universit y of Vaccine Quad .5 mL 00:00:00 [place] [facility] IM 6+ MO Branch Influenza Virus 2020-04-01 Completed Universit y of Vaccine Quad .5 mL 00:00:00 [place] [facility] IM 6+ MO Branch Influenza Virus 2020-04-01 Completed Universit y of Vaccine Quad .5 mL 00:00:00 [place] [facility] IM 6+ MO Branch Influenza Virus 2020-04-01 Completed Universit y of Vaccine Quad .5 mL 00:00:00 [place] [facility] IM 6+ MO Branch Influenza Virus 2020-04-01 Completed Universit y of Vaccine Quad .5 mL 00:00:00 [place] [facility] IM 6+ MO Branch Influenza Virus 2020-04-01 Completed Universit y of Vaccine Quad .5 mL 00:00:00 [place] [facility] IM 6+ MO Branch Influenza Virus 2020-04-01 Completed Universit y of Vaccine Quad .5 mL 00:00:00 [place] [facility] IM 6+ MO Branch Influenza Virus 2020-04-01 Completed Universit y of Vaccine Quad .5 mL 00:00:00 [place] [facility] IM 6+ MO Branch Influenza Virus 2020-04-01 Completed Universit y of Vaccine Quad .5 mL 00:00:00 [place] [facility] IM 6+ MO Branch Influenza Virus 2020-04-01 Completed Universit y of Vaccine Quad .5 mL 00:00:00 [place] [facility] IM 6+ MO Branch Influenza Virus 2020-04-01 Completed Universit y of Vaccine Quad .5 mL 00:00:00 [place] [facility] IM 6+ MO Branch Influenza Virus 2020-04-01 Completed Universit y of Vaccine Quad .5 mL 00:00:00 [place] [facility] IM 6+ MO Branch Influenza Virus 2020-04-01 Completed Universit y of Vaccine Quad .5 mL 00:00:00 [place] [facility] IM 6+ MO Branch Influenza Virus 2020-04-01 Completed Universit y of Vaccine Quad .5 mL 00:00:00 [place] [facility] IM 6+ MO Branch Influenza Virus 2020-04-01 Completed Universit y of Vaccine Quad .5 mL 00:00:00 [place] [facility] IM 6+ MO Branch Influenza Virus 2020-04-01 Completed Universit y of Vaccine Quad .5 mL 00:00:00 [place] [facility] IM 6+ MO Branch Influenza Virus 2020-04-01 Completed Universit y of Vaccine Quad .5 mL 00:00:00 [place] [facility] IM 6+ MO Branch Influenza Virus 2020-04-01 Completed Universit y of Vaccine Quad .5 mL 00:00:00 [place] [facility] 6+ MO Branch Influenza Virus 2020-04-01 Completed Universit y of Vaccine Quad .5 mL 00:00:00 [place] [facility] IM 6+ MO Branch Influenza Virus 2020-04-01 Completed Universit y of Vaccine Quad .5 mL 00:00:00 [place] [facility] IM 6+ MO Branch Influenza Virus 2020-04-01 Completed Universit y of Vaccine Quad .5 mL 00:00:00 [place] [facility] IM 6+ MO Branch Influenza Virus 2020-04-01 Completed Universit y of Vaccine Quad .5 mL 00:00:00 [place] [facility] IM 6+ MO Branch Influenza Virus 2020-04-01 Completed Universit y of Vaccine Quad .5 mL 00:00:00 [place] [facility] IM 6+ MO Branch Influenza Virus 2020-04-01 Completed Universit y of Vaccine Quad .5 mL 00:00:00 [place] [facility] IM 6+ MO Branch Influenza Virus 2020-04-01 Completed Universit y of Vaccine Quad .5 mL 00:00:00 [place] [facility] IM 6+ MO Branch Influenza Virus 2020-04-01 Completed Universit y of Vaccine Quad .5 mL 00:00:00 [place] [facility] 6+ MO Branch TDAP (ADACEL) 2019-10-03 Completed University of VACCINE 00:00:00 [facility] TDAP (ADACEL) 2019-10-03 Completed University of VACCINE 00:00:00 [facility] TDAP (ADACEL) 2019-10-03 Completed University of VACCINE 00:00:00 [place] [facility] TDAP (ADACEL) 2019-10-03 Completed University of VACCINE 00:00:00 [place] [facility] TDAP (ADACEL) 2019-10-03 Completed University of VACCINE 00:00:00 [place] [facility] TDAP (ADACEL) 2019-10-03 Completed University of VACCINE 00:00:00 [place] [facility] TDAP (ADACEL) 2019-10-03 Completed University of VACCINE 00:00:00 [place] [facility] TDAP (ADACEL) 2019-10-03 Completed University of VACCINE 00:00:00 [place] [facility] TDAP (ADACEL) 2019-10-03 Completed University of VACCINE 00:00:00 [place] [facility] TDAP (ADACEL) 2019-10-03 Completed University of VACCINE 00:00:00 [place] [facility] TDAP (ADACEL) 2019-10-03 Completed University of VACCINE 00:00:00 [place] [facility] TDAP (ADACEL) 2019-10-03 Completed University of VACCINE 00:00:00 [place] [facility] TDAP (ADACEL) 2019-10-03 Completed University of VACCINE 00:00:00 [place] [facility] TDAP (ADACEL) 2019-10-03 Completed University of VACCINE 00:00:00 [place] [facility] TDAP (ADACEL) 2019-10-03 Completed University of VACCINE 00:00:00 [place] [facility] TDAP (ADACEL) 2019-10-03 Completed University of VACCINE 00:00:00 [place] [facility] TDAP (ADACEL) 2019-10-03 Completed University of VACCINE 00:00:00 [place] [facility] TDAP (ADACEL) 2019-10-03 Completed University of VACCINE 00:00:00 [place] [facility] TDAP (ADACEL) 2019-10-03 Completed University of VACCINE 00:00:00 [place] [facility] TDAP (ADACEL) 2019-10-03 Completed University of VACCINE 00:00:00 [place] [facility] TDAP (ADACEL) 2019-10-03 Completed University of VACCINE 00:00:00 [place] [facility] TDAP (ADACEL) 2019-10-03 Completed University of VACCINE 00:00:00 [place] [facility] TDAP (ADACEL) 2019-10-03 Completed University of VACCINE 00:00:00 [place] [facility] TDAP (ADACEL) 2019-10-03 Completed University of VACCINE 00:00:00 [place] [facility] TDAP (ADACEL) 2019-10-03 Completed University of VACCINE 00:00:00 [place] [facility] TDAP (ADACEL) 2019-10-03 Completed University of VACCINE 00:00:00 [place] [facility] TDAP (ADACEL) 2019-10-03 Completed University of VACCINE 00:00:00 [place] [facility] TDAP (ADACEL) 2019-10-03 Completed University of VACCINE 00:00:00 [place] [facility] TDAP (ADACEL) 2019-10-03 Completed University of VACCINE 00:00:00 [place] [facility] TDAP (ADACEL) 2019-10-03 Completed University of VACCINE 00:00:00 [place] [facility] TDAP (ADACEL) 2019-10-03 Completed University of VACCINE 00:00:00 [facility] [place] [facility] TDAP (ADACEL) 2019-10-03 Completed University of VACCINE 00:00:00 [facility] [place] [facility] TDAP (ADACEL) 2019-10-03 Completed University of VACCINE 00:00:00 [facility] [place] [facility] TDAP (ADACEL) 2019-10-03 Completed University of VACCINE 00:00:00 [facility] [place] [facility] TDAP (ADACEL) 2019-10-03 Completed University of VACCINE 00:00:00 [facility] [place] [facility] TDAP (ADACEL) 2019-10-03 Completed University of VACCINE 00:00:00 [facility] [place] [facility] TDAP (ADACEL) 2019-10-03 Completed University of VACCINE 00:00:00 [facility] [place] [facility] TDAP (ADACEL) 2019-10-03 Completed University of VACCINE 00:00:00 [facility] [facility] TDAP (ADACEL) 2019-10-03 Completed [facility] VACCINE 00:00:00 [facility] TDAP (ADACEL) 2019-10-03 Completed [facility] VACCINE 00:00:00 [facility] TDAP (ADACEL) 2019-10-03 Completed [facility] VACCINE 00:00:00 [facility] TDAP (ADACEL) 2019-10-03 Completed [facility] VACCINE 00:00:00 [facility] Vital Signs Vital Name Observation Time Observation Value Comments Source Systolic blood 2022-07-22 13:31:00 130 mm[Hg] Univer sity of pressure [facility] Diastolic blood 2022-07-22 13:31:00 84 mm[Hg] Unive rsity of pressure [facility] Heart rate 2022-07-22 13:31:00 104 /min [facility] Body temperature 2022-07-22 13:31:00 36.11 Tegan [facility] Respiratory rate 2022-07-22 13:31:00 18 /min [facility] Body height 2022-07-22 13:31:00 162.6 cm [facility] Body weight 2022-07-22 13:31:00 132.904 kg [facility] BMI 2022-07-22 13:31:00 50.29 kg/m2 [facility] Oxygen saturation in 2022-07-22 13:31:00 96 /min [facility] Arterial blood by [facility] Pulse oximetry Branch Systolic blood 2022-07-02 22:30:00 153 mm[Hg] [facility] pressure [facility] Diastolic blood 2022-07-02 22:30:00 86 mm[Hg] Unive rsity [facility] pressure [facility] Respiratory rate 2022-07-02 22:30:00 22 /min [facility] Oxygen saturation in 2022-07-02 22:30:00 96 /min [facility] Arterial blood by [facility] Pulse oximetry Branch Body height 2022-07-02 16:34:00 162.6 cm [facility] Body weight 2022-07-02 16:34:00 133.811 kg [facility] BMI 2022-07-02 16:34:00 50.64 kg/m2 [facility] Systolic blood 2022-07-02 19:43:00 134 mm[Hg] [facility] Diastolic blood 2022-07-02 19:43:00 74 mm[Hg] Unive rsity [facility] pressure [facility] Respiratory rate 2022-07-02 19:43:00 25 /min [facility] Oxygen saturation in 2022-07-02 19:43:00 95 /min [facility] Arterial blood by [facility] Pulse oximetry Branch Body height 2022-07-02 16:34:00 162.6 cm [facility] Body weight 2022-07-02 16:34:00 133.811 kg [facility] BMI 2022-07-02 16:34:00 50.64 kg/m2 [facility] Systolic blood 2022-06-09 14:41:00 129 mm[Hg] [facility] Diastolic blood 2022-06-09 14:41:00 74 mm[Hg] [facility] Heart rate 2022-06-09 14:41:00 82 /min [facility] Body temperature 2022-06-09 14:41:00 36.61 Tegan [facility] Body weight 2022-06-09 14:41:00 133.811 kg [facility] BMI 2022-06-09 14:41:00 50.64 kg/m2 [facility] Oxygen saturation in 2022-06-09 14:41:00 94 /min [facility] Arterial blood by [facility] orin Pulse oximetry Branch Systolic blood 2022-05-24 23:45:00 119 mm[Hg] [facility]iver [facility] Diastolic blood 2022-05-24 23:45:00 53 mm[Hg] Unive rsity [facility] pressure [facility] Heart rate 2022-05-24 23:45:00 79 /min [facility] Body temperature 2022-05-24 23:45:00 36.61 Tegan [facility] Respiratory rate 2022-05-24 23:45:00 20 /min [facility] Oxygen saturation in 2022-05-24 23:45:00 90 /min [facility] Arterial blood by [place] [employer] orin Pulse oximetry Branch Body height 2022-05-24 10:06:00 162.6 cm [facility] Body weight 2022-05-24 10:06:00 129.5 kg bed scale [facility] BMI 2022-05-24 10:06:00 49.01 kg/m2 [facility] Systolic blood 2022-05-20 14:07:00 140 mm[Hg] [facility] Diastolic blood 2022-05-20 14:07:00 85 mm[Hg] Unive [facility]ity [facility] Heart rate 2022-05-20 14:07:00 78 /min [facility] Respiratory rate 2022-05-20 14:07:00 19 /min [facility] Body weight 2022-05-20 14:07:00 139.254 kg [facility] BMI 2022-05-20 14:07:00 52.70 kg/m2 [facility] Oxygen saturation in 2022-05-20 14:07:00 93 /min [facility] Arterial blood by [facility] Pulse oximetry Branch Systolic blood 2022-05-18 14:46:00 113 mm[Hg] [facility] Diastolic blood 2022-05-18 14:46:00 76 mm[Hg] Unive rsity [facility] pressure [facility] Heart rate 2022-05-18 14:46:00 77 /min [facility] Respiratory rate 2022-05-18 14:46:00 14 /min [facility] Body weight 2022-05-18 14:46:00 138.801 kg [facility] BMI 2022-05-18 14:46:00 52.52 kg/m2 [facility] Oxygen saturation in 2022-05-18 14:46:00 92 /min room air [facility] Arterial blood by [facility] Pulse oximetry Branch Systolic blood 2022-03-17 21:36:00 115 mm[Hg] [facility] Diastolic blood 2022-03-17 21:36:00 69 mm[Hg] Unive rsity [facility] pressure [facility] Heart rate 2022-03-17 21:36:00 76 /min [facility] Body height 2022-03-17 21:36:00 162.6 cm [facility] Body weight 2022-03-17 21:36:00 133.176 kg [facility] BMI 2022-03-17 21:36:00 50.40 kg/m2 [facility] Oxygen saturation in 2022-03-17 21:36:00 95 /min [facility] Arterial blood by [place] [employer] orin Pulse oximetry Branch height 2021-11-13 16:20:00 64 [in_i] Common S [facility] weight 2021-11-13 16:20:00 305.3 [lb_av] Common [facility] temperature 2021-11-13 16:20:00 97.3 [degF] Common S pirit [facility] bmi 2021-11-13 16:20:00 52.4 kg/m2 Common S pirit [facility] oximetry 2021-11-13 16:20:00 95 % Common S pirit [facility] respiratory rate 2021-11-13 16:20:00 18 /min Comm on [facility] blood pressure 2021-11-13 16:20:00 129 mm[Hg] Common [facility] - systolic [facility] blood pressure 2021-11-13 16:20:00 67 mm[Hg] [facility] - diastolic [facility] height 2021-09-30 09:20:00 64 [in_i] Common [facility] weight 2021-09-30 09:20:00 314.3 [lb_av] [facility] temperature 2021-09-30 09:20:00 97.2 [degF] [facility] 2021-09-30 09:20:00 53.94 kg/m2 Common S [facility] oximetry 2021-09-30 09:20:00 93 % [facility] respiratory rate 2021-09-30 09:20:00 16 /min Comm on [facility] blood pressure 2021-09-30 09:20:00 132 mm[Hg] [facility] - systolic [facility] blood pressure 2021-09-30 09:20:00 67 mm[Hg] [facility] - diastolic [facility] height 2021-05-07 13:50:00 64 [in_i] Common S [facility] weight 2021-05-07 13:50:00 287.7 [lb_av] [facility] temperature 2021-05-07 13:50:00 97.2 [degF] Common S pirit [facility] bmi 2021-05-07 13:50:00 49.38 kg/m2 [facility] oximetry 2021-05-07 13:50:00 94 % Common S [facility] respiratory rate 2021-05-07 13:50:00 16 /min Comm on [facility] blood pressure 2021-05-07 13:50:00 136 mm[Hg] Common [facility] - systolic [facility] blood pressure 2021-05-07 13:50:00 76 mm[Hg] Common [facility] - diastolic [facility] height 2021-04-06 16:00:00 64 [in_i] Common S [facility] weight 2021-04-06 16:00:00 286.0 [lb_av] [facility] temperature 2021-04-06 16:00:00 97.6 [degF] Common [facility] bmi 2021-04-06 16:00:00 49.09 kg/m2 [facility] oximetry 2021-04-06 16:00:00 97 % [facility] respiratory rate 2021-04-06 16:00:00 17 /min Comm on [facility] blood pressure 2021-04-06 16:00:00 127 mm[Hg] Common [facility] - systolic [facility] blood pressure 2021-04-06 16:00:00 62 mm[Hg] Common [facility] - diastolic [facility] height 2020-12-10 10:20:00 64 [in_i] Common S [facility] weight 2020-12-10 10:20:00 288.7 [lb_av] [facility] temperature 2020-12-10 10:20:00 97.5 [degF] [facility] bmi 2020-12-10 10:20:00 49.55 kg/m2 [facility] oximetry 2020-12-10 10:20:00 93 % Common S [facility] respiratory rate 2020-12-10 10:20:00 17 /min Comm on [facility] blood pressure 2020-12-10 10:20:00 124 mm[Hg] [facility] - systolic [facility] blood pressure 2020-12-10 10:20:00 68 mm[Hg] [facility] - diastolic [facility] Systolic blood 2020-03-27 19:08:00 118 mm[Hg] [facility] Diastolic blood 2020-03-27 19:08:00 74 mm[Hg] [facility] Heart rate 2020-03-27 19:08:00 60 /min [facility] Respiratory rate 2020-03-27 19:08:00 18 /min [facility] Body height 2020-03-27 19:08:00 162.6 cm [facility] Body weight 2020-03-27 19:08:00 130.999 kg [facility] BMI 2020-03-27 19:08:00 49.57 kg/m2 [facility] Systolic blood 2020-03-27 19:08:00 118 mm[Hg] [facility] Diastolic blood 2020-03-27 19:08:00 74 mm[Hg] [facility] Medicine Heart rate 2020-03-27 19:08:00 60 /min [facility] Respiratory rate 2020-03-27 19:08:00 18 /min [facility] Body height 2020-03-27 19:08:00 162.6 cm [facility] Body weight 2020-03-27 19:08:00 130.999 kg [facility] BMI 2020-03-27 19:08:00 49.57 kg/m2 [facility] Systolic blood 2022-08-05 20:45:09 107 mm[Hg] [facility] Diastolic blood 2022-08-05 20:45:09 54 mm[Hg] [facility] pressure Heart rate 2022-08-05 20:45:09 63 /min [facility] O[facility] saturation in 2022-08-05 20:45:09 93 /min [facility] Arterial blood by Pulse oximetry Body temperature 2022-08-05 20:44:27 35.56 Tegan [facility] Respiratory rate 2022-08-05 20:44:27 16 /min [facility] Body weight 2022-08-05 04:15:00 129.956 kg [facility] BMI 2022-08-05 04:15:00 49.18 kg/m2 [facility] Body height 2022-08-04 17:14:00 162.6 cm [facility] Systolic blood 2021-09-09 22:24:07 133 mm[Hg] [facility] pressure Diastolic blood 2021-09-09 22:24:07 65 mm[Hg] [facility] pressure Heart rate 2021-09-09 22:24:07 62 /min [facility] Body temperature 2021-09-09 22:24:07 36.28 Tegan [facility] Respiratory rate 2021-09-09 22:24:07 18 /min [facility] Oxygen saturation in 2021-09-09 22:24:07 96 /min [facility] Arterial blood by Pulse oximetry Body weight 2021-09-02 08:51:24 136.896 kg [facility] BMI 2021-09-02 08:51:24 51.80 kg/m2 [facility] Body height 2021-08-27 02:47:26 162.6 cm [facility] Procedures Procedure Date / Time Performing Clinician Source Performed ECG 12-LEAD 2022-08-05 18:37:07 Lilian Saeed TROPONIN T 2022-08-05 15:12:00 Lilian Saeed EEG AWAKE/DROWSY LESS THAN 2022-08-05 10:40:00 [facility] 41 MIN [place] CBC WITH PLATELET AND 2022-08-05 09:06:00 Lilian Saeed [facility] DIFFERENTIAL [place] BASIC METABOLIC PANEL 2022-08-05 09:06:00 Lilian Saeed [facility] Kathleen MAGNESIUM LEVEL 2022-08-05 09:06:00 Lilian Saeed PHOSPHORUS LEVEL 2022-08-05 09:06:00 Lilian Saeed ESTIMATED GFR 2022-08-05 09:06:00 Lilian Saeed XR ABDOMEN 1 VW PORTABLE 2022-08-05 03:52:27 Lilian Saeed [facility] [place] ECG 12-LEAD 2022-08-04 21:36:[address] HEAD WO CONTRAST 2022-08-04 20:49:53 [facility] LACTIC ACID LEVEL, SEPSIS - 2022-08-04 20:10:00 [facility] NOW AND REPEAT 2X EVERY 3 HOURS XR SHUNT SERIES CHEST ABD 2 2022-08-04 18:15:32 [facility] VIEW XR SHUNT SERIES HEAD NECK 2 2022-08-04 18:15:06 [facility] VIEW CBC WITH PLATELET AND 2022-08-04 17:25:00 [facility] DIFFERENTIAL COMPREHENSIVE METABOLIC 2022-08-04 17:25:00 [facility] PANEL LACTIC ACID LEVEL, SEPSIS - 2022-08-04 17:25:00 [facility] NOW AND REPEAT 2X EVERY 3 HOURS ESTIMATED GFR 2022-08-04 17:25:00 [facility] ECG ED PRELIMINARY 2022-08-04 17:07:38 [facility] INTERPRETATION ELECTROPHYSIOLOGY PROCEDURE 2022-07-02 19:12:46 Gulshan Cox [facility] HB ECG ROUTINE & RHYTHM 2022-07-02 16:28:34 Brooke Gulshan [facility] BASIC METABOLIC PANEL (NA, 2022-07-02 16:23:00 Gulshan Cox [facility] K, CL, CO2, GLUCOSE, BUN, Medica l Branch CREATININE, CA) CBC WITH DIFF 2022-07-02 16:23:00 Brooke Gulshan [place] [facility] PROTHROMBIN TIME / INR 2022-07-02 16:23:00 Gulshan [facility] BASIC METABOLIC PANEL (NA, 2022-07-02 16:23:00 [facility], CL, CO2, GLUCOSE, BUN, Medica l Branch CREATININE, CA) CBC WITH DIFF 2022-07-02 16:23:[address] [facility] PROTHROMBIN TIME / INR 2022-07-02 16:23:00 Gulshan [facility] EP PROCEDURE 2022-07-02 05:01:00 Doctor Margarito, [facility] Name Medical [facility] PATIENT FINANCIAL 2022-06-09 14:27:57 Doctor Margarito, [facility] POLICY [facility] TROPONIN I 2022-05-24 22:10:00 Ju Frey [facility] TRANSTHORACIC ECHO (TTE) 2022-05-24 17:43:19 Ju Frey [facility] COMPLETE W/ CONTRAST [facility] TROPONIN I 2022-05-24 13:58:00 Ju Frey [facility] XR CHEST 1 VW 2022-05-24 06:01:[address] [facility] NOTICE OF PRIVACY PRACTICES 2022-05-24 05:47:06 [facility] FOR 2022-05-24 05:46:30 Doctor Pimentel [facility] DIAGNOSIS AND TREATMENT [place] Medical [place] LIPASE 2022-05-24 05:42:[address] [facility] TROPONIN I 2022-05-24 05:42:[address] [facility] COMP. METABOLIC PANEL 2022-05-24 05:42:00 Nahun Ortez [facility] ([id number]) Medical [place] LIPID PANEL ([id number])(TOTAL 2022-05-24 05:42:00 Ju Frey [facility] CHOLESTEROL, TRIGLYCERIDES, [facility] HDL) CBC WITH DIFF 2022-05-24 05:42:[address] [facility] PROTHROMBIN TIME / INR 2022-05-24 05:42:00 Nahun [facility]tez [facility] ACTIVATED PARTIAL THRMPLAS 2022-05-24 05:42:00 Nahun Ortez [facility] N-TERMINAL PRO-BNP 2022-05-24 05:42:00 Nahun Ortez [facility] HB ECG ROUTINE & RHYTHM 2022-05-24 05:38:29 Nahun Ortez [facility] ASSIGNMENT OF BENEFITS 2022-05-20 15:01:15 Doctor Unassigned, [facility] [place] [facility] HB ECG ROUTINE & RHYTHM 2022-03-17 21:43:30 Imani Martino [facility] CONSENT/REFUSAL FOR 2022-03-17 21:23:03 Doctor Unassigned, [facility] DIAGNOSIS AND TREATMENT [place] [facility] MRI HEAD EXTERNAL STUDY 2021-10-19 15:25:00 Alonso Herrera [facility] POC GLUCOSE 2021-09-09 22:23:00 Acacia Lewis [facility] POC GLUCOSE 2021-09-09 17:43:00 JoAcacia rivera [facility] spital POC GLUCOSE 2021-09-09 12:46:00 Acacia Lewis [facility] POC GLUCOSE 2021-09-09 02:10:00 JoAcacia rivera Ho [facility]ital POC GLUCOSE 2021-09-08 22:50:00 Acacia [facility] POC GLUCOSE 2021-09-08 18:35:00 JoAcacia rivera [facility] POC GLUCOSE 2021-09-08 13:10:00 JoglAcacia carrasco [facility] POC GLUCOSE 2021-09-08 02:28:00 Acacia Lewis [facility] POC GLUCOSE 2021-09-07 23:10:00 JoglAcacia carrasco [facility] POC GLUCOSE 2021-09-07 17:46:00 JoglAcacia carrasco Ho spital POC GLUCOSE 2021-09-07 13:20:00 JoglAcacia carrasco Ho spital POC GLUCOSE 2021-09-07 02:07:00 Joglekar, Acacia [facility] POC GLUCOSE 2021-09-06 23:51:00 Joglekar, Acacia [facility] POC GLUCOSE 2021-09-06 17:26:00 Joglekar, Acacia [facility] POC GLUCOSE 2021-09-06 13:13:00 Joglekar, Acacia [facility] POC GLUCOSE 2021-09-06 02:43:00 Joglekar, Acacia [facility] POC GLUCOSE 2021-09-05 23:55:00 Joglekar, Acacia [facility] POC GLUCOSE 2021-09-05 17:41:00 Joglekar, Acacia [facility] POC GLUCOSE 2021-09-05 13:45:00 Joglekar, Acacia Daigle Ho spital ECG 12-LEAD 2021-09-05 05:50:02 Joglekar, Acacia [facility] POC GLUCOSE 2021-09-05 03:25:00 Joglekar, Acacia [facility] POC GLUCOSE 2021-09-05 01:53:00 Joglekar, Acacia [facility] POC GLUCOSE 2021-09-04 23:28:00 Joglekar, Acacia [facility] POC GLUCOSE 2021-09-04 17:44:00 Joglekar, Acacia Daigle Ho spital SIX MINUTE WALK W/ PULSE 2021-09-04 16:54:41 Acacia Lewis [facility] OXIMETRY POC GLUCOSE 2021-09-04 13:27:00 JoglekAcacia leblanc [facility] POC GLUCOSE 2021-09-04 02:14:00 Joglekar, Acacia [facility] POC GLUCOSE 2021-09-03 23:15:00 Joglekar, Acacia [facility] POC GLUCOSE 2021-09-03 17:35:00 Joglekar, Acacia [facility] POC GLUCOSE 2021-09-03 13:29:00 JoglekarAcacia [facility] POC GLUCOSE 2021-09-03 03:43:00 Joglekar, Acacia [facility] POC GLUCOSE 2021-09-02 22:37:00 Joglekar, Acacia [facility] POC GLUCOSE 2021-09-02 17:32:00 Joglekar, Acacia [facility] POC GLUCOSE 2021-09-02 13:55:00 Joglekar, Acacia [facility] POC GLUCOSE 2021-09-02 02:06:00 Joglekar, Acacia [facility] POC GLUCOSE 2021-09-01 22:59:00 Joglekar, Acacia [facility] XR ABDOMEN 1 VW PORTABLE 2021-09-01 21:44:00 [facility] CBC WITH PLATELET AND 2021-09-01 17:49:00 [facility] DIFFERENTIAL COMPREHENSIVE METABOLIC 2021-09-01 17:49:00 [facility] PANEL ESTIMATED GFR 2021-09-01 17:49:00 [facility] POC GLUCOSE 2021-09-01 17:31:00 Joglekar, Acacia [facility] POC GLUCOSE 2021-09-01 13:36:00 Joglekar, Acacia [facility] POC GLUCOSE 2021-09-01 01:58:00 Joglekar, Acacia [facility] POC GLUCOSE 2021-08-31 23:12:00 Joglekar, Acacia [facility] POC GLUCOSE 2021-08-31 17:21:00 JoglekarShaneAcacia [facility] POC GLUCOSE 2021-08-31 13:08:00 Joglekar, Acacia [facility] POC GLUCOSE 2021-08-31 01:41:00 Joglekar, Acacia [facility] POC GLUCOSE 2021-08-30 23:36:00 Joglekar, Acacia [facility] POC GLUCOSE 2021-08-30 17:36:00 Joglekar, Acacia [facility] POC GLUCOSE 2021-08-30 13:15:00 Joglekar, Acacia [facility] POC GLUCOSE 2021-08-30 02:00:00 Joglekar, Acacia [facility] POC GLUCOSE 2021-08-29 23:05:00 Joglekar, Acaica [facility] POC GLUCOSE 2021-08-29 17:57:00 Joglekar, Acacia [facility] POC GLUCOSE 2021-08-29 13:41:00 Joglekar, Acacia [facility] POC GLUCOSE 2021-08-29 01:29:00 Joglekar, Acacia [facility] POC GLUCOSE 2021-08-28 22:55:00 Joglekar, Acacia [facility] POC GLUCOSE 2021-08-28 17:23:00 Joglekar, Acacia [facility] POC GLUCOSE 2021-08-28 13:45:00 Joglekar, Acacia [facility] POC GLUCOSE 2021-08-28 01:28:00 Joglekar, Acacia [facility] COVID-19 QUALITATIVE RT-PCR 2021-08-27 22:41:00 JoglAcacia carrasco [facility] POC GLUCOSE 2021-08-27 22:33:00 Joglekar, Acacia [facility] POC GLUCOSE 2021-08-27 17:33:00 Joglekar, Acacia [facility] POC GLUCOSE 2021-08-27 12:35:00 Joglekar, Acacia [facility] POC GLUCOSE 2021-08-27 02:48:00 Joglekar, Acacia [facility] POC GLUCOSE 2021-08-26 22:44:00 Joglekar, Acacia [facility] POC GLUCOSE 2021-08-26 16:43:00 Joglekar, Acacia [facility] POC GLUCOSE 2021-08-26 13:42:00 Joglekar, Acacia [facility] POC GLUCOSE 2021-08-26 01:50:00 Joglekar, Acacia [facility] POC GLUCOSE 2021-08-25 23:14:00 Joglekar, Acacia [facility] COVID-19 QUALITATIVE RT-PCR 2021-08-25 21:42:00 Andrews Ventura [facility] POC GLUCOSE 2021-08-25 17:35:00 Joglekar, Acacia [facility] POC GLUCOSE 2021-08-25 12:51:00 JoglAcacia carrasco [facility] POC GLUCOSE 2021-08-24 21:45:00 JoAcacia rivera [facility] POC GLUCOSE 2021-08-24 16:30:00 JoAcacia rivera [facility] POC GLUCOSE 2021-08-24 13:01:00 Acacia Lewis [facility] XR CHEST 1 VW PORTABLE 2021-08-24 06:11:07 Justice [facility] ECG 12-LEAD 2021-08-24 05:35:00 Justice, [facility] TROPONIN T 2021-08-24 05:14:00 Justice, [facility] B NATRIURETIC PEPTIDE 2021-08-24 05:14:00 Justice, [facility] D-DIMER 2021-08-24 05:14:00 Justice [facility] POC GLUCOSE 2021-08-24 01:34:00 JoAcacia rivera Ho spital POC GLUCOSE 2021-08-23 22:13:00 JoAcacia rivera [facility] POC GLUCOSE 2021-08-23 16:50:00 JoglAcacia carrasco [facility] POC GLUCOSE 2021-08-23 12:50:00 JoAcacia rivera [facility] POC GLUCOSE 2021-08-23 02:07:00 PosaniRichelle [facility] POC GLUCOSE 2021-08-22 22:43:00 PosaniRichelle [facility] POC GLUCOSE 2021-08-22 16:45:00 PosaniRichelle [facility] POC GLUCOSE 2021-08-22 12:29:00 PosaniRichelle Ho spital XR SKULL < 4 VW 2021-08-22 04:41:17 Mary Jane Rico [facility] POC GLUCOSE 2021-08-22 00:46:00 PosaniRichelle [facility] POC GLUCOSE 2021-08-21 22:41:00 PosRichelle james Ho spital POC GLUCOSE 2021-08-21 16:36:00 PosRichelle james [facility] spital POC GLUCOSE 2021-08-21 13:46:00 PosRichelle james Ho spital BASIC METABOLIC PANEL 2021-08-21 09:48:00 [facility] CBC WITH PLATELET AND 2021-08-21 09:48:00 [facility] DIFFERENTIAL PHOSPHORUS LEVEL 2021-08-21 09:48:00 [facility] MAGNESIUM LEVEL 2021-08-21 09:48:00 [facility] ospital IONIZED CALCIUM 2021-08-21 09:48:00 [facility] ospital ESTIMATED GFR 2021-08-21 09:48:00 [facility] ospital MRI BRAIN W WO CONTRAST 2021-08-21 04:00:00 [facility] POC GLUCOSE 2021-08-21 01:14:00 PosRichelle james Ho spital POC GLUCOSE 2021-08-20 20:59:00 PosRichelle james Ho spital IR EPIDURAL BLOOD PATCH 2021-08-20 19:49:00 [facility] [place] POC GLUCOSE 2021-08-20 16:26:00 PosRichelle james Ho spital POC GLUCOSE 2021-08-20 12:21:00 PosRichelle james Ho spital POC GLUCOSE 2021-08-20 09:12:00 PosRichelle james Ho spital POC GLUCOSE 2021-08-20 05:11:00 PosRichelle james Ho spital BASIC METABOLIC PANEL 2021-08-20 04:57:00 Desiree Baez [facility] CBC WITH PLATELET AND 2021-08-20 04:57:00 [facility] DIFFERENTIAL THYROID STIMULATING HORMONE 2021-08-20 04:57:00 Joelle Alvares [facility] Liong T4, FREE 2021-08-20 04:57:00 Joelle Alvares [facility] Liong ESTIMATED GFR 2021-08-20 04:57:00 Billy [facility] MAGNESIUM LEVEL 2021-08-20 04:57:00 Poserika [facility] spital PHOSPHORUS LEVEL 2021-08-20 04:57:00 Richelle Lowry ospital IONIZED CALCIUM 2021-08-20 04:57:00 [facility]ence [facility] spital POC GLUCOSE 2021-08-20 01:05:00 Billy Lowryuna [facility] HEAD WO CONTRAST 2021-08-19 22:19:25 [facility] ARTERIAL LINE 2021-08-19 20:28:13 Wilma [facility] Art MISCELLANEOUS REFERRAL TEST 2021-08-19 19:31:00 Essence [facility] SURGICAL PATHOLOGY REQUEST 2021-08-19 19:31:00 Essence [facility] URINE CULTURE 2021-08-19 17:20:00 [facility] ND AN ELECTIVE ENDOTRACHEAL 2021-08-19 17:02:00 [facility] CRANIOTOMY 2021-08-19 16:44:00 Alonso Herrera [facility] XR SKULL < 4 VW 2021-08-19 15:03:00 Bren [facility] [place] POC GLUCOSE 2021-08-19 12:52:00 [facility] 2021-08-19 00:22:00 [facility] COVID-19 QUALITATIVE RT-PCR 2021-08-18 21:40:00 [facility] [place] ABO AND RH CONFIRMATION BY 2021-08-18 20:31:00 [facility] PROTOCOL [place] PARTIAL THROMBOPLASTIN TIME 2021-08-18 16:57:00 [facility] (PTT[facility] [place] PROTHROMBIN TIME WITH INR 2021-08-18 16:57:00 [facility] [place] TYPE AND SCREEN 2021-08-18 16:57:00 [facility] [place] MRI BRAIN W WO CONTRAST 2021-08-18 15:18:00 [facility] [place] POC GLUCOSE 2021-08-18 13:28:00 Posani, Richelle [facility] CBC WITH PLATELET AND 2021-08-18 10:06:00 [facility] DIFFERENTIAL [place] POC GLUCOSE 2021-08-17 22:14:00 Posani, Richelle [facility] POC GLUCOSE 2021-08-17 18:05:00 Posani, Richelle [facility] POC GLUCOSE 2021-08-17 14:36:00 Posani, [facility] TTE COMPLETE, W CONTRAST, W 2021-08-17 13:00:00 Poserika [facility] DOPPLER ([id number]) CBC WITH PLATELET AND 2021-08-17 10:27:00 [facility] DIFFERENTIAL [place] TROPONIN T 2021-08-17 10:27:00 Posani, Richelle [facility] BASIC METABOLIC PANEL 2021-08-17 10:27:00 Posani, [facility] ESTIMATED GFR 2021-08-17 10:27:00 Posani, Richelle [facility] ECG 12-LEAD 2021-08-17 05:20:42 Posani, Richelle [facility] POC GLUCOSE 2021-08-17 03:20:00 Posani, Richelle [facility] POC GLUCOSE 2021-08-16 22:56:00 Posani, Richelle [facility] POC GLUCOSE 2021-08-16 17:38:00 Posani, Richelle [facility] POC GLUCOSE 2021-08-16 13:51:00 Posani, Richelle [facility] CBC WITH PLATELET AND 2021-08-16 10:14:00 [facility] DIFFERENTIAL [place] BASIC METABOLIC PANEL 2021-08-16 10:14:00 Posani, [facility] ESTIMATED GFR 2021-08-16 10:14:00 Posani, Richelle [facility] B NATRIURETIC PEPTIDE 2021-08-16 04:37:00 Zoie Rendon [facility] TROPONIN T 2021-08-16 04:37:00 JusticeZoie cortescarlmilagros [facility] D-DIMER 2021-08-16 04:37:00 Justice[facility]oie [facility] ECG 12-LEAD 2021-08-16 04:34:46 [facility] POC GLUCOSE 2021-08-16 02:27:00 Posani, Richelle [facility] POC GLUCOSE 2021-08-15 23:05:00 Posani, Richelle [facility] BASIC METABOLIC PANEL 2021-08-15 21:03:00 Posani, [facility] ESTIMATED GFR 2021-08-15 21:03:00 Posani, Richelle [facility] POC GLUCOSE 2021-08-15 18:03:00 Posani, Richelle [facility] POC GLUCOSE 2021-08-15 13:24:00 Posani, Richelle [facility] POC GLUCOSE 2021-08-15 02:11:00 Posani, Richelle [facility] POC GLUCOSE 2021-08-14 22:57:00 Posani, Richelle [facility] POC GLUCOSE 2021-08-14 17:36:00 Posani, Richelle [facility] POC GLUCOSE 2021-08-14 13:23:00 Posani, Richelle [facility] POC GLUCOSE 2021-08-14 01:21:00 Posani, Richelle [facility] POC GLUCOSE 2021-08-13 22:46:00 Posani, Richelle [facility] POC GLUCOSE 2021-08-13 17:17:00 Posani, Richelle [facility] POC GLUCOSE 2021-08-13 13:06:00 Posani, Richelle Daig[facility] spital URINE CULTURE 2021-08-13 13:02:00 Charli Wang spital URINE DRUGS OF ABUSE SCREEN 2021-08-13 10:52:00 [facility] URINALYSIS SCREEN AND 2021-08-13 10:52:00 [facility] MICROSCOPY, WITH REFLEX TO CULTURE HEMOGLOBIN A1C 2021-08-13 09:13:00 [facility] spital LIPID PANEL 2021-08-13 09:13:00 [facility] HOMOCYSTINE, PLASMA 2021-08-13 09:13:00 [facility] FOLATE LEVEL 2021-08-13 09:13:00 [facility] spital VITAMIN B12 LEVEL 2021-08-13 09:13:00 [facility] THYROID STIMULATING HORMONE 2021-08-13 09:13:00 [facility] T4, FREE 2021-08-13 09:13:00 [facility] spital SEDIMENTATION RATE 2021-08-13 09:13:00 [facility] C-REACTIVE PROTEIN 2021-08-13 09:13:00 [facility] PROTHROMBIN TIME WITH INR 2021-08-13 09:13:00 [facility] PARTIAL THROMBOPLASTIN TIME 2021-08-13 09:13:00 [facility] (PTT) HIV 1/2 ANTIGEN/ANTIBODY, 2021-08-13 09:13:00 [facility] FOURTH GENERATION, WITH REFLEXES SYPHILIS TREPONEMA SCREEN 2021-08-13 09:13:00 [facility] WITH RPR CONFIRMATION (REVERSE ALGORITHM) POC GLUCOSE 2021-08-13 03:11:00 [facility] POC GLUCOSE 2021-08-12 23:38:00 Priscila [facility] spital TROPONIN T 2021-08-11 18:20:00 [facility] THYROID STIMULATING HORMONE 2021-08-11 18:20:00 [facility] T[facility], FREE 2021-08-11 18:20:00 [facility] ECG 12-LEAD 2021-08-11 17:05:13 [facility] MRI THORACIC SPINE W WO 2021-08-10 14:20:00 [facility] CONTRAST MRI LUMBAR SPINE W WO 2021-08-10 13:30:00 [facility] CONTRAST MRI CERVICAL SPINE W WO 2021-08-10 12:45:00 Elena, [facility] CONTRAST ZZCOVID-19 ANTI-SPIKE IGG 2021-08-10 08:20:00 [facility] ANTIBODY TITER Terry CBC WITH PLATELET AND 2021-08-10 08:20:00 [facility] DIFFERENTIAL COMPREHENSIVE METABOLIC 2021-08-10 08:20:00 [facility] PANEL ZZCOVID-19 SEROLOGY PATIENT 2021-08-10 08:20:00 [facility] SURVEILLANCE Terry ESTIMATED GFR 2021-08-10 08:20:00 [facility] TROPONIN T 2021-08-09 09:19:00 [facility] MRI BRAIN W WO CONTRAST 2021-08-09 06:35:00 Asim Almanza [facility] ECG ED PRELIMINARY 2021-08-09 03:18:13 [facility] INTERPRETATION CT HEAD WO CONTRAST 2021-08-09 03:04:32 [facility] POC , URINE 2021-08-09 02:52:00 Joel Warren [facility] Andrea COVID-19 QUALITATIVE RT-PCR 2021-08-09 02:37:00 [facility] CBC WITH PLATELET AND 2021-08-09 02:37:00 [facility] DIFFERENTIAL PROTHROMBIN TIME WITH INR 2021-08-09 02:37:00 [facility] PARTIAL THROMBOPLASTIN TIME 2021-08-09 02:37:00 [facility] (PTT) COMPREHENSIVE METABOLIC 2021-08-09 02:37:00 [facility] PANEL ESTIMATED GFR 2021-08-09 02:37:00 [facility] spital TROPONIN T 2021-08-09 02:37:00 [facility] spital B NATRIURETIC PEPTIDE 2021-08-09 02:37:00 [facility] XR SKULL < 4 VW 2021-08-09 02:09:31 Taz [facility] spital ECG 12-LEAD 2021-08-09 01:42:14 Taz Manas [facility] XR ABDOMEN AP AND LATERAL 2021-08-09 01:40:26 Manas Mcghee [facility] XR CERVICAL SPINE 2 OR 3 VW 2021-08-09 01:40:07 Manas Mcghee [facility] XR CHEST 2 VW 2021-08-09 01:39:53 Manas Mcghee Ho spital Plan of Care Planned Activity Planned Date Details Comments Source Future Scheduled 2022-12-[address] [facility] Test 00:00:00 (Season Ended) [code Medical Center = Influenza Vaccine (Season Ended)] Future Scheduled 2022-09-16 Scre[facility] 16:43:42 malignant neoplasm of Hospit al colon (procedure) [code = 916059918] Future Scheduled 2022-09-16 [facility] 16:43:42 malignant neoplasm of Hospit al colon (procedure) [code = 608387964] Future Scheduled 2022-09-16 [facility] 16:43:42 malignant neoplasm of Hospit al colon (procedure) [code = 066552248] Future Scheduled 2022-09-16 COVID-19 VACCINE (#1) [facility] 16:43:42 [code = COVID-19 Hospital VACCINE (#1)] Future Scheduled 2022-09-16 Hepatitis C screening [facility] 16:43:42 (procedure) [code = Hospital 540774321] Future Scheduled 2022-09-16 [facility] 16:43:42 malignant neoplasm of Hospit al cervix (procedure) [code = 271095220] Future Scheduled 2022-09-16 BREAST CANCER [facility] 16:43:42 SCREENING [code = Hospital BREAST CANCER SCREENING] Future Scheduled 2022-09-16 [facility] for [facility] 16:43:42 malignant neoplasm of Hospit al colon (procedure) [code = 326038958] Future Scheduled 2022-09-16 [facility] 16:43:42 malignant neoplasm of Hospit al colon (procedure) [code = 501207189] Future Scheduled 2022-09-16 INFLUENZA VACCINE [facility] Test 16:43:42 [code = INFLUENZA Hospital VACCINE] Future Scheduled 2022-07-02 COVID-19 VACCINE (#1) [facility] 10:16:08 [code = COVID-19 Hospital VACCINE (#1)] Future Scheduled 2022-07-02 Hepatitis C screening [facility] 10:16:08 (procedure) [code = Hospital 382043956] Future Scheduled 2022-07-02 Scre[facility] for [facility] 10:16:08 malignant neoplasm of Hospit al cervix (procedure) [code = 738250697] Future Scheduled 2022-07-02 BREAST CANCER [facility] 10:16:08 SCREENING [code = Hospital BREAST CANCER SCREENING] Future Scheduled 2022-07-02 COLONOSCOPY SCREENING [facility] 10:16:08 [code = COLONOSCOPY Hospital SCREENING] Future Scheduled 2022-07-02 INFLUENZA VACCINE [facility] Test 10:16:08 [code = INFLUENZA Hospital VACCINE] Future Scheduled 2022-04-[address] [facility] Test 00:00:00 (12+) [code = Medical Center DEPRESSION SCREENING (12+)] Future Scheduled 2022-04-[address] [facility] Test 00:00:00 (12+) [code = Medical Center DEPRESSION SCREENING (12+)] Future Scheduled 2022-04-[address] [facility] Test 00:00:00 (12+) [code = Medical Center DEPRESSION SCREENING (12+)] Future Scheduled 2022-03-26 COVID-19 VACCINE (#1) [facility] 11:14:58 [code = COVID-19 Hospital VACCINE (#1)] Future Scheduled 2022-03-26 Hepatitis C screening [facility] 11:14:58 (procedure) [code = Hospital 197225865] Future Scheduled 2022-03-26 Screening for [facility] 11:14:58 malignant neoplasm of Hospit al cervix (procedure) [code = 282323094] Future Scheduled 2022-03-26 BREAST CANCER [facility] 11:14:58 SCREENING [code = Hospital BREAST [...] thodist Test 04:23:42 (procedure) [code = Hospital 366543470] Future Scheduled 2022-03-19 BREAST CANCER [facility] 04:23:42 SCREENING [code = Hospital BREAST [...] thodist Test 19:34:27 (procedure) [code = Hospital 454025625] Future Scheduled 2021-12-26 Screening for [facility] 19:34:27 malignant neoplasm of Hospit al cervix (procedure) [code = 734868111] Future Scheduled 2021-12-26 BREAST CANCER [facility] 19:34:27 SCREENING [code = Hospital BREAST CANCER SCREENING] Future Scheduled 2021-12-26 COLONOSCOPY SCREENING [facility] 19:34:27 [code = COLONOSCOPY Hospital SCREENING] Future Scheduled 2021-12-26 INFLUENZA VACCINE [facility] 19:34:27 [code = INFLUENZA Hospital VACCINE] Future Scheduled 2021-12-[address] [facility] Test 00:00:00 (#1) [code = Medical Center INFLUENZA VACCINE (#1)] Future Scheduled 2021-12-[address] [facility] Test 00:00:00 (#1) [code = Medical Center INFLUENZA VACCINE (#1)] Future Scheduled 2021-12-[address] [facility] Test 00:00:00 (#1) [code = Medical Center INFLUENZA VACCINE (#1)] Future Scheduled 2021-04-[address] [facility] Test 00:00:00 (12+) [code = Medical Center DEPRESSION SCREENING (12+)] Future Scheduled 2020-01-[address] [facility] 00:[facility]:00 (procedure) [code = [facility] 91124719] Future Scheduled 2020-01-[address] [facility] 00:00:00 (procedure) [code = [facility] 50469389] Future Scheduled 2020-01-[address] [facility] 00:00:00 (procedure) [code = [facility] 05439437] Future Scheduled 2020-01-[address] [facility] 00:00:00 (procedure) [code = [facility] 84957662] Future Scheduled 1996-01-[address] [facility]oplasm of [facility]ica [facility] Center cervix (procedure) [code = 123425727] Future Scheduled 1996-01-[address] [facility] 00:00:00 malignant [facility]oplasm of [facility]ica [facility] Center cervix (procedure) [code = 833167772] Future Scheduled 1996-01-[address] [facility] 00:00:00 malignant neoplasm of [facility]ica [facility] Center cervix (procedure) [code = 289818728] Future Scheduled 1996-01-[address] [facility] 00:00:00 malignant neoplasm of [facility]ica [facility] Center cervix (procedure) [code = 524343973] Future Scheduled 1994 DTAP/TDAP/TD VACCINES CH I [...] Medica l Center colon (procedure) [code = 540249330] Future Scheduled [address] [facility] 00:00:00 malignant neoplasm of [facility]ica [facility] Center colon (procedure) [code = 393931637] Future Scheduled [address] [facility] 00:00:00 malignant neoplasm of [facility]ica [facility] Center colon (procedure) [code = 965062496] Future Scheduled [address] [facility] 00:00:00 malignant neoplasm of [facility]ica [facility] Center colon (procedure) [code = 522121532] Future Scheduled 1975 Sigmoidoscopy [facility] Cent[facility] r Future Scheduled [address] [facility] 00:00:00 (combo) [code = CT Medical C enter Colonography (combo)] Future Scheduled [address] [facility] 00:00:00 malignant neoplasm of Medica [facility] Center colon (procedure) [code = 725600206] Future Scheduled [address] [facility] 00:00:00 malignant neoplasm of Medica l Center colon (procedure) [code = 082125394] Future Scheduled [address] [facility] 00:00:00 malignant neoplasm of Medica l Center colon (procedure) [code = 180040798] Future Scheduled [address] [facility] 00:00:00 (combo) [code = CT Medical C enter Colonography (combo)] Future Scheduled [address] [facility] 00:00:00 malignant neoplasm of Medica l Center colon (procedure) [code = 226011586] Future Scheduled 1975 Sigmoidoscopy [facility] Medical Cente r Future Scheduled [address] [facility] 00:00:00 malignant neoplasm of Medica l Center colon (procedure) [code = 702698618] Future Scheduled [address] [facility] 00:00:00 (combo) [code = CT Medical C enter Colonography (combo)] Future Scheduled [address] [facility] 00:00:00 malignant neoplasm of Medica l Center colon (procedure) [code = 317615425] Future Scheduled [address] [facility] 00:00:00 malignant neoplasm of Medica l Center colon (procedure) [code = 303332688] Future Scheduled [address] [facility] 00:00:00 malignant neoplasm of Medica l Center colon (procedure) [code = 692771023] Future Scheduled [address] [facility] 00:00:00 malignant neoplasm of Medica l Center colon (procedure) [code = 147629894] Future Scheduled 1975 Sigmoidoscopy [facility] Medical Cente r Future Scheduled [address] [facility] 00[facility]00:00 malignant neoplasm of Medica l Center colon (procedure) [code = 439906601] Future Scheduled [address] [facility] Test 00:00:00 malignant neoplasm of Medica l Center colon (procedure) [code = 769598136] Future Scheduled [address] [facility] 00:00:00 malignant neoplasm of Medica l Center colon (procedure) [code = 254370087] Future Scheduled 1975 Sigmoidoscopy [facility] Medical Cente r Future Scheduled TSH [code = 89854-7] Ordered: [facility] [employer] [facility] 03/27/2020 of Medicine Future Scheduled T4 FREE [code = [facility] 3024-7] 03/27/2020 of Medicine Future Scheduled T3 [code = 3053-6] Ordered: [facility] Test 03/27/2020 of Medicine Future Scheduled MAMMOGRAM ANNUAL [facility] Test [code = MAMMOGRAM of Medicin e ANNUAL] Future Scheduled TETANUS SHOT (ADULT) [facility] Test [code = TETANUS SHOT of Medi cine (ADULT)] Future Scheduled BMI FOLLOW UP PLAN [facility] Test [code = BMI FOLLOW UP of Med icine PLAN] Future Scheduled HEPATITIS C SCREENING [facility] Test [code = HEPATITIS C of Medic ine SCREENING] Future Scheduled HIV SCREENING [code = [facility] Test HIV SCREENING] of Medicine Future Scheduled CERVICAL CANCER [facility] Test SCREENING 3 YEAR of Medicine FOLLOW UP [code = CERVICAL CANCER SCREENING 3 YEAR FOLLOW UP] Future Scheduled FLU VACCINE > 6 [facility] Test MONTHS [code = FLU of Medici ne VACCINE > 6 MONTHS] Encounters Start End Encounter Admission Attending Care Care Encounter Source Date/Time Date/Time Type Type Clinicians Facility Department ID 2022-03-10 Out[facility] [id number] Common 09:34:02 Manjinder [facility] 2022-02-03 Outpatient Chacon[facility] [id number] Common 14:59:00 Manjinder [facility] 2022-02-01 Outpatient Chacon, [facility] [id number] Common 11:11:01 Manjinder [facility] 2021-08-03 Outpatient Chacon, [facility] [id number] Common 16:18:01 Manjinder [facility] 2021-05-07 Outpatient Chacon, [facility]ML[facility] [id number] Common 13:30:02 Manjinder [facility] 2021-05-01 Outpatient Chacon, [facility]ML[facility] [id number] Common 08:23:02 Manjinder [facility] 2021-04-29 Outpatient Chacon, [facility] [id number] Common 14:31:29 Manjinder [facility] 2021-04-29 Outpatient Chacon, [facility] [id number] Common 14:12:21 Manjinder [facility] 2021-04-29 Outpatient Chacon, STLC [facility] [id number] Common 12:44:58 Manjinder [facility] 2021-04-29 Outpatient Chacon, [facility]ML[facility] [id number] Common 12:34:29 Manjinder [facility] 2021-04-29 Outpatient Chacon, [facility] [id number] Common 12:27:16 Manjinder [id number] [facility] 2021-04-29 Outpatient Chacon, STLMLC STLMLC [id number] Common 12:20:23 Manjinder 82527 [facility] 2021-04-29 Outpatient Chacon, STLMLC STLMLC [id number] Common 11:59:35 Manjinder [id number] [facility] 2021-04-29 Outpatient Chacon, STLMLC STLMLC [id number] Common 11:46:14 Manjinder [id number] [facility] 2021-04-29 Outpatient Chacon, STLMLC STLC [id number] Common 11:27:12 Manjinder 75557 [facility] 2022-09-16 2022-09-16 Orders Chayo Lai 1.2.840.1 [id number] Methodi 00:00:00 00:00:[address] 3.430.2.7 Hospit a .3.686893 l .8 2022-09-15 2022-09-15 Orders Chayo Lai 1.2.840.1 [id number] Methodi 00:00:00 00:00:[address] 3.430.2.7 Hospit a .3.595535 l .8 2022-09-15 2022-09-15 Orders Carol 1.2.840.1 [id number] Methodi 00:00:00 00:00:00 Only Shila 47561.1.[address] 3.430.2.7 Hospit a .3.120553 l .8 2022-09-06 2022-09-06 Outpatient R NICOLAS AGUAYO [facility] [id number] Univers 10:00:00 10:00:00 NICOLAS AGUAYO [facility] 2022-08-04 2022-08-05 [facility] Yogesh Lan 1.2.840.1 [id number] Methodi 12:20:00 18:30:00 Encounter Lilian Saeed Hever 29072.1.[address] 3.430.2.7 Hospit a .3.966093 l .8 2022-08-04 2022-08-05 Outpatient DARLIN [facility] [id number] [place] 00:00:00 00:00:[address] 2022-08-04 2022-08-04 Travel 1.2.840.1 1.2.121.544 [id number] Methodi 00:00:00 00:00:[address] 3.430.2.7 0.2.7.3.698 Ho spita .3.881047 084.8 l .8 2022-07-22 2022-07-22 [facility] [id number] Univers 08:40:00 09:00:26 GULSHAN ity of [facility] 2022-07-22 2022-07-22 Office [facility] 1.2.840.114 [id number] Univers 08:40:00 09:00:00 Visit Gulshan [place] 350.1.13.10 i ty of [place] [id number] Mn dicok NAL [address] [place] [address] 2022-07-22 2022-07-22 Letter [facility] 1.2.840.114 [id number] Univers 00:00:00 00:00:00 (Out) Gulshan [place] 350.1.13.10 i ty of [place] [id number] Mn dical NAL [address] [place] [address] 2022-07-22 2022-07-22 Refill [facility] 1.2.840.114 [id number] Univers 00:00:00 00:00:00 Gulshan [place] 350.1.13.10 i ty of [place] [id number] Mn dical NAL [address] [place] [address] 2022-07-05 2022-07-05 Telephone [facility] 1.2.645.912 [id number] Univers 00:00:00 00:00:00 Gulshan [place] 350.1.13.10 i ty [place] [id number] [place] 694859 [facility] 2022-07-03 2022-07-03 [facility] 1.2.633.132 [id number] Univers 00:00:00 00:00:00 Gulshan [place] 350.1.13.10 i ty [place] [id number] [address] 2022-07-02 2022-07-02 [facility] [id number] Univers 10:16:00 18:00:00 GULSHAN ity of [facility] 2022-07-02 2022-07-02 Hospital [facility] 1.2.840.114 [id number] Univers 10:16:00 18:00:00 Encounter Gulshan NICHOLAS 350.1.13.10 ity of [facility] 4.2.7.2.686 Ronnie as [id number] [place] 015910 [place] 2022-07-02 2022-07-02 Surgery [facility]SH [facility] 1.2.840.114 [id number] Univers 12:45:00 14:45:00 Gulshan NICHOLAS 350.1.13.10 it y of [facility] 4.2.7.2.686 Ronnie as [id number] [place] 015910 [place] 2022-07-02 2022-07-02 Orders Doctor LAUREN 1.2.840.114 [id number] Univers 00:00:00 00:00:00 Only Unassigned, NICHOLAS 350.1.13.10 ity of [place] [facility] 4.2.7.2.686 Ronnie as [id number] [address] 2022-07-01 2022-07-01 [facility]phone [facility] 1.2.401.789 [id number] Univers 00:00:00 00:00:00 Gulshan [place] 350.1.13.10 i ty [facility] 4[place]2.7.[place] [id number] Mn dical NAL 059 [facility] 2022-06-29 2022-06-29 Telephone [facility] 1.2.832.367 [id number] Univers 00:00:00 00:00:00 Gulshan [place] 350.1.13.10 i [place] of [place] [phone] [address] 2022-06-11 2022-06-11 Telephone Brooke ASH 1.2.957.082 [id number] Univers 00:00:00 00:00:00 Gulshan NICHOLAS 350.1.13.10 it y of HOSPITAL 4.2.7.2.686 Ronnie as [phone] [facility] [address] [place] 2022-06-09 2022-06-09 [facility] [id number] Univers 08:40:00 09:05:19 ANGELA ity of [facility] 2022-06-09 2022-06-09 Office [facility] 1.2.840.114 [id number] Univers 08:40:00 09:05:19 Visit Angela [place] 350.1.13.10 i ty of [place] [phone] [address] 2022-06-09 2022-06-09 Orders Doctor LAUREN 1.2.840.114 [id number] Univers 00:00:00 00:00:00 Only Unassigned, NICHOLAS 350.1.13.10 ity of [place] [facility] 4.2.7.2.686 Ronnie as [phone] [facility] [address] [place] 2022-06-09 2022-06-09 Letter [facility] 1.2.840.114 [id number] Univers 00:00:00 00:00:00 (Out) Angela [place] 350.1.13.10 i ty of [place] [phone] [address] 2022-06-09 2022-06-09 Telephone [facility] 1.2.707.342 [id number] [id number] Univers 00:00:00 00:00:00 Angela [place] 350.1.13.10 i ty of [facility] 4.2.7.2.[place] [phone] [place] 694859 [facility] 2022-06-08 2022-06-08 Telephone [facility] 1.2.009.168 6184 [id number] Univers 00:00:00 00:00:00 Gulshan OCTAVIO 350.1.13.10 i ty of [facility] 4.2.7.2.[place] [id number] [address] 2022-06-02 2022-06-02 Outpatient R NICOLAS AGUAYO [facility] [id number] Univers 13:30:00 13:30:00 INCOLAS AGUAYO [facility] 2022-05-27 2022-05-27 [facility] 1.2.662.122 [id number] Univers 00:00:00 00:00:00 [facility] 350.1.13.10 it y of [place] 4.2.7.2.686 Ronnie as MITUL?BLEA [phone] [address] 2022-05-27 2022-05-27 [facility] 1.2.595.491 0617 [id number] Univers 00:00:00 00:00:00 Gulshan OCTAVIO 350.1.13.10 i ty of [facility] 4[place]2.7.2.[place] [id number] [address] 2022-05-25 2022-05-25 Outpatient R AVERY [facility] [id number] Univers 10:30:00 10:30:00 [facility] [place] 2022-05-23 2022-05-24 Outpatient U DAYSI [facility] [id number] Univers 23:33:00 20:15:00 YUMIKO [facility] 2022-05-23 2022-05-24 Emergency Nahun Ortez [facility] 1.2.840. 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 Kingsley Sebastian Lab Main [facility] 1.2.8 40.114 [id number] Univers 09:30:00 09:45:00 Visit Gulshan Cox 350.1.13.10 ity of [place] [phone] [facility] NAL 353 [facility] 2022-05-20 2022-05-20 Office Brooke [facility] 1.2.840.114 [id number] Univers 08:00:00 08:27:27 Visit Gulshan [place] 350.1.13.10 i ty of [place] [phone] [facility] 059 [facility] 2022-05-20 2022-05-20 Outpatient R BROOKE [facility] [id number] Univers 08:00:00 08:27:27 GULSHAN ity of [facility] 2022-05-20 2022-05-20 Orders Doctor LAUREN 1.2.840.114 [id number] Univers 00:00:00 00:00:00 Only Unassigned, NICHOLAS 350.1.13.10 ity of [place] [facility] 4.2.7.2.686 Ronnie as [phone] [address] 2022-05-18 2022-05-18 Office Nadia [facility] 1.2.840.114 [id number] Univers 08:40:00 09:26:57 Visit Angela [place] 350.1.13.10 i ty of [facility] 4.2.7.2.[place] [phone] [address] 2022-05-18 2022-05-18 Outpatient R NADIA [facility] [id number] Univers 08:40:00 09:26:57 ANGELA [facility]us [facility] 2022-05-11 2022-05-11 [facility] 1.2.403.286 [id number] Univers 00:00:00 00:00:00 Sendil Sheyla [place] 350.1.13.10 ity of [place] [id number] [address] 2022-05-10 2022-05-10 Outpatient R SALENA [facility] [id number] Univers 09:00:00 09:00:00 SENDIL [facility] 2022-04-30 2022-04-30 (TEL) STLMLC STLMLC [id number] Co mmon 00:00:00 00:00:00 [facility] 2022-04-22 2022-04-22 (TEL) STLMLC STLMLC [id number] Co mmon 00:00:00 00:00:00 [facility] 2022-04-22 2022-04-22 Telephone [facility] 1.2.961.132 [id number] Univers 00:00:00 00:00:00 Sendil Sheyla [place] 350.1.13.10 ity [facility] 4[place]2.7.2.[place] [id number] [address] 2022-04-20 2022-04-20 (TEL) STLMLC STLMLC [id number] Co mmon 00:00:00 00:00:00 [facility] 2022-04-13 2022-04-13 Telephone [facility] 1.2.998.363 [id number] [id number] Univers 00:00:00 00:00:00 Sendil Sheyla [place] 350.1.13.10 ity of [place] [phone] Mn dical NAL 059 [facility] 2022-04-12 2022-04-12 Outpatient R SALENA [facility] [id number] Univers 07:44:55 23:59:00 SENDIL ity [facility] 2022-03-24 2022-03-24 (TEL) STLMLC STLMLC [id number] Co mmon 00:00:00 00:00:00 [facility] 2022-03-23 2022-03-23 [facility] [id number] Univers 16:00:00 16:00:00 SENDIL ity [facility] 2022-03-17 2022-03-17 Outpatient [facility] [id number] Univers 15:30:00 16:18:08 SENDIL ity [facility] 2022-03-17 2022-03-17 Office [facility] 1.2.840.114 [id number] Univers 15:30:00 16:18:08 Visit Imani [place] 350.1.13.10 ity of [place] [phone] [address] 2022-03-17 2022-03-17 Orders Doctor LAUREN 1.2.840.114 [id number] Univers 00:00:00 00:00:00 Only Unassigned, NICHOLAS 350.1.13.10 ity of [facility] 4.2.7.2.686 Ronnie as [phone] [address] 2022-03-12 2022-03-12 (TEL) STLMLC STLMLC [id number] Co mmon 00:00:00 00:00:00 [facility] 2022-02-18 2022-02-18 Documentat Katherine, 1.2.840.1 [id number] 21 [id number] Methodi 00:00:00 00:00:00 ion Kathryn 71221.1.[address] [place] 3.430.2.7 Hospit a .3.047652 l .8 2022-02-18 2022-02-18 Documentat Katherine, 1.2.840.1 [id number] 21 [id number] Methodi 00:00:00 00:00:00 ion Kathryn 74414.1.[address] [place] 3.430.2.7 Hospit a .3.702441 l .8 2021-10-19 2021-12-27 Office Sharon, 1.2.840.1 [id number] 7569 Methodi 13:30:00 00:12:59 Visit Alonso Buckner 74424.1.[address] 3.430.2.7 Hospit a .3.099742 l .8 2021-10-19 2021-12-27 Office Sharon, 1.2.840.1 [id number] 0522 Methodi 13:30:00 00:12:59 Visit Alonso Buckner 38572.1.[address] 3.430.2.7 Hospit a .3.817710 l .8 2021-11-13 2021-11-13 OFFICE STLMLC STLMLC [id number] Co mmon 00:00:00 00:00:00 VISIT EST Spir it PT LEVEL 3 [facility] 2021-10-26 2021-10-26 (TEL) STLMLC STLMLC [id number] Co mmon 00:00:00 00:00:00 [facility] 2021-10-19 2021-10-19 [facility], 1.2.840.1 [id number] [id number] Methodi 13:21:54 23:59:00 Encounter Alonso Buckner 58325.1.[address] 3.430.2.7 Hospit a .3.491176 l .8 2021-10-19 2021-10-19 [facility], 1.2.840.1 [id number] 92399 Methodi 13:21:54 23:59:00 Encounter Alonso Buckner 66073.1.[address] 3.430.2.7 Hospit a .3.426395 l .8 2021-10-19 2021-10-19 Travel 1.2.840.1 1.2.245.514 7836 [id number] Methodi 00:00:00 00:00:[address] 3.430.2.7 0.2.7.3.698 Ho spita .3.733897 084.8 l .8 2021-10-19 2021-10-19 Travel 1.2.840.1 1.2.633.599 5224 024897 Methodi 00:00:00 00:00:[address] 3.430.2.7 0.2.7.3.698 Ho spita .3.543798 084.8 l .8 2021-10-14 2021-10-14 Out[facility] [id number] Univers 09:30:00 09:30:00 [facility] 2021-10-14 2021-10-14 Outpatient Tayler [facility] [id number] Univers 09:30:00 09:30:00 [facility] 2021-10-13 2021-10-13 (TEL) STLMLC STLMLC [id number] Co mmon 00:00:00 00:00:00 [facility] 2021-09-30 2021-09-30 OFFICE STLMLC STLMLC [id number] Co mmon 00:00:00 00:00:00 VISIT Spirit ESTAB PT - [facility] LEVEL 5 [facility] 2021-09-29 2021-09-29 Travel 1.2.840.1 1.2.408.830 0913 [id number] Methodi 00:00:00 00:00:[address] 3.430.2.7 0.2.7.3.698 Ho spita .3.451630 084.8 l .8 2021-09-29 2021-09-29 Orders Katherine, 1.2.840.1 [id number] 67335 Methodi 00:00:00 00:00:00 Only Kathryn 23087.1.[address] [place] 3.430.2.7 Hospit a .3.517456 l .8 2021-09-29 2021-09-29 Travel 1.2.840.1 1.2.815.794 6903 628786 Methodi 00:00:00 00:00:[address] 3.430.2.7 0.2.7.3.698 Ho spita .3.286257 084.8 l .8 2021-09-29 2021-09-29 Orders Katherine, 1.2.840.1 [id number] 46734 Methodi 00:00:00 00:00:00 Only Kathryn 52596.1.[address] [place] 3.430.2.7 Hospit a .3.275028 l .8 2021-09-19 2021-09-19 Nurse LAUREN Nguyễn 1.2.840.114 [id number] 00 Univers 00:00:00 00:00:00 Triage Norman [facility].13.10 [facility] 4.2.7.2.686 [place]nie [place] [phone] [place] [address] [place] 2021-09-15 2021-09-15 Orders Katherine, 1.2.840.1 [id number] [id number] Methodi 00:00:00 00:00:00 Only Kathryn 62067.1.[address] [place] 3.430.2.7 Hospit a .3.925831 l .8 2021-09-15 2021-09-15 Orders Medina, 1.2.840.1 [id number] 8936 Methodi 00:00:00 00:00:00 Only Shila 63337.1.[address] 3.430.2.7 Hospit a .3.226885 l .8 2021-09-14 2021-09-14 (TEL) STLMLC STLMLC [id number] Co mmon 00:00:00 00:00:00 [facility] 2021-09-14 2021-09-14 Telephone JACKIE Martino 1.2.130.396 [id number] [id number] Univers 00:00:00 00:00:00 [facility] 350.1.13.10 ity of [place] 4.2.7.2.686 Airam ESCOBEDO [id number] [place] 998299 Branch OFFICE BUILDING 2021-09-14 2021-09-14 Orders Katherine, 1.2.840.1 [id number] 28204 Methodi 00:00:00 00:00:00 Only Kathryn 83965.1.[address] [place] 3.430.2.7 Hospit a .3.513835 l .8 2021-09-14 2021-09-14 Documentat Medina, 1.2.840.1 [id number] Methodi 00:00:00 00:00:00 ion Shila 57732.1.[address] 3.430.2.7 Hospit a .3.059547 l .8 2021-08-26 2021-09-09 [facility], 1.2.840.1 [id number] 967 [id number] Methodi 21:45:00 20:00:00 Encounter Acacia 61569.1.[address] 3.430.2.7 Hospit a .3.604471 l .8 2021-09-09 2021-09-09 (TEL) STLMLC STLMLC [id number] Co mmon 00:00:00 00:00:00 [facility] 2021-08-08 2021-08-26 [facility].840.1 [id number] Methodi 18:19:00 21:44:00 Encounter Fredi Schmid 03303.1.[address] [facility] 3.430.2.7 Hospita Lauren Francois .3.727442 l Richelle Lowry .8 2021-08-19 2021-08-19 Anesthesia Wilma, 1.2.840.1 [id number] 954 [id number] Methodi 11:42:00 16:30:00 Event Alex 79852.1.[address] [place] 3.430.2.7 Hospit a .3.417538 l .8 2021-08-19 2021-08-19 Surgery Sharon, 1.2.840.1 [id number] 079166 2388 Methodi 10:55:00 15:10:00 Alonso Buckner 51018.1.[address] 3.430.2.7 Hospit a .3.502666 l .8 2021-08-13 2021-08-13 (TEL) STLMLC STLMLC [id number] Co mmon 00:00:00 00:00:00 [facility] 2021-08-12 2021-08-12 (TEL) STLMLC STLMLC [id number] Co mmon 00:00:00 00:00:00 [facility] 2021-08-11 2021-08-11 (TEL) STLMLC STLMLC [id number] Co mmon 00:00:00 00:00:00 [facility] 2021-08-08 2021-08-08 Travel 1.2.840.1 1.2.793.316 0753 [id number] Methodi 00:00:00 00:00:[address] 3.430.2.7 0.2.7.3.698 spita .3.086750 084.8 l .8 2021-08-07 2021-08-07 (TEL) STLMLC STLMLC [id number] Co mmon 00:00:00 00:00:00 [facility] 2021-08-04 2021-08-04 (TEL) STLMLC STLMLC [id number] Co mmon 00:00:00 00:00:00 [facility] 2021-08-03 2021-08-03 LAUREN Peralta 1.2.683.622 1803 4753 [facility] 00:00:00 00:00:00 Imani PETERSON 350.1.13.10 [facility] 4.2.7.2.686 Ronnie as [phone] [address] 2021-07-23 2021-07-23 Outpatient R SALENA [facility] [id number] Univers 13:00:00 14:06:54 SENDIL ity of [facility] 2021-07-23 2021-07-23 Office Salena [facility] 1.2.840.114 [id number] Univers 13:00:00 14:06:54 Visit Sendtequila [place] 350.1.13.10 [facility] 4[facility]2.7.2.[place] [phone] Mn dical [facility] 2021-06-23 2021-06-23 (TEL) STLMLC STLMLC [id number] Co mmon 00:00:00 00:00:00 [facility] 2021-05-24 2021-05-24 Nurse LAUREN Simms 1.2.840.114 [id number] Univers 00:00:00 00:00:00 Triage Rupinder PETERSON 350.1.13.[address] [facility] 4.2.7.2.686 Ronnie as [phone] [address] 2021-05-23 2021-05-23 (TEL) STLMLC STLMLC [id number] Co mmon 00:00:00 00:00:00 [facility] 2021-05-14 2021-05-14 (TEL) STLMLC STLMLC [id number] Co mmon 00:00:00 00:00:00 [facility] 2021-05-07 2021-05-07 OFFICE STLMLC STLMLC [id number] Co mmon 00:00:00 00:00:00 VISIT [facility] LEVEL 4 [facility] 2021-05-05 2021-05-05 (TEL) STLMLC STLMLC [id number] Co mmon 00:00:00 00:00:00 [facility] 2021-05-01 2021-05-01 (TEL) STLMLC STLMLC [id number] Co mmon 00:00:00 00:00:00 [facility] 2021-04-10 2021-04-10 (TEL) STLMLC STLMLC [id number] Co mmon 00:00:00 00:00:00 [facility] 2021-04-06 2021-04-06 (TEL) STLMLC STLMLC [id number] Co mmon 00:00:00 00:00:00 [facility] 2021-04-06 2021-04-06 OFFICE STLMLC STLMLC [id number] Co mmon 00:00:00 00:00:00 VISIT [facility] LEVEL 4 [facility] 2021-02-12 2021-02-12 (TEL) STLMLC STLMLC [id number] Co mmon 00:00:00 00:00:00 [facility] 2021-02-09 2021-02-09 Emergency X RAYO [facility] ERT [id number] Univers 21:28:00 23:35:00 FANNIE ity of [facility] 2021-02-09 2021-02-09 Emergency Rayo [facility] 1.2.442.260 [id number] 1598 Univers 21:28:00 23:35:00 Fannie [place] 350.1.13.10 i ty of [place] 4[place]2.7.2.[place] [id number] [facility] [address] 2021-02-09 2021-02-09 Orders Doctor LAUREN 1.2.840.114 [id number] Univers 00:00:00 00:00:00 Only Unassigned, NICHOLAS 350.1.13.10 ity of [place] [facility] 4.2.7.2.686 Ronnie as [phone] [facility] [address] 2021-01-29 2021-01-29 (TEL) [facility] [id number] Co mmon 00:00:00 00:00:00 [facility] 2021-01-27 2021-01-27 Office Salena [facility] 1.2.840.114 [id number] Univers 08:24:21 09:10:00 Visit Imani Cunningham 350.1.13.10 ity [facility] 4.2.7.2.[place] [facility] [phone] [facility] 059 [facility] 2021-01-27 2021-01-27 Outpatient R SALENA [facility] [id number] Univers 08:30:00 08:30:00 SENDIL ity of [facility] 2021-01-27 2021-01-27 Orders Doctor AGUILAR 1.2.840.114 [id number] Univers 00:00:00 00:00:00 Only Unassigned, NICHOLAS 350.1.13.10 ity of [facility] 4.2.7.2.686 Ronnie as [phone] [address] 2021-01-27 2021-01-27 Letter Salena [facility] 1.2.840.114 [id number] Univers 00:00:00 00:00:00 (Out) Sendtequila Cunningham 350.1.13.10 ity of [place] 4[place].7.2.686 [place] Profess[place] [phone] Mn dical nal 059 [facility] 2021-01-25 2021-01-25 (TEL) STLMLC STLMLC [id number] Co mmon 00:00:00 00:00:00 [facility] 2021-01-22 2021-01-22 (TEL) STLMLC STLMLC [id number] Co mmon 00:00:00 00:00:00 [facility] 2021-01-19 2021-01-19 (TEL) STLMLC STLMLC [id number] Co mmon 00:00:00 00:00:00 [facility] 2020-12-10 2020-12-10 OFFICE STLMLC STLMLC [id number] Co mmon 00:00:00 00:00:00 VISIT [facility] LEVEL 4 [facility] 2020-11-21 2020-11-21 (TEL) STLMLC STLMLC [id number] Co mmon 00:00:00 00:00:00 [facility] 2020-11-18 2020-11-18 (TEL) STLMLC STLMLC [id number] Co mmon 00:00:00 00:00:00 [facility] 2020-11-05 2020-11-05 Outpatient STLMLC STLMLC [id number] Common 00:00:00 00:00:00 [facility] 2020-10-30 2020-10-30 Outpatient Tayler SALENA [facility] [id number] Univers 11:30:00 11:30:00 [facility] 2020-09-15 2020-09-15 Outpatient STLMLC STLMLC [id number] Common 00:00:00 00:00:00 [facility] 2020-09-04 2020-09-04 Outpatient Tayler MARTINO [facility] [id number] Univers 11:00:00 11:00:00 [facility] 2020-08-20 2020-08-20 Outpatient STLMLC STLMLC [id number] Common 00:00:00 00:00:00 [facility] 2020-08-19 2020-08-19 Outpatient STLMLC STLMLC [id number] Common 00:00:00 00:00:00 [facility] 2020-07-15 2020-07-15 Outpatient Tayler MARTINO [facility] [id number] Univers 10:00:00 10:00:00 [facility] 2020-07-11 2020-07-11 Outpatient STLMLC STLMLC [id number] Common 00:00:00 00:00:00 [facility] 2020-07-10 2020-07-10 Outpatient STLMLC STLMLC [id number] Common 00:00:00 00:00:00 [facility] 2020-07-02 2020-07-02 Outpatient STLMLC STLMLC [id number] Common 00:00:00 00:00:00 [facility] 2020-06-29 2020-06-29 Outpatient STLMLC STLMLC [id number] Common 00:00:00 00:00:00 [facility] 2020-06-10 2020-06-10 Outpatient STLMLC STLMLC [id number] Common 00:00:00 00:00:00 [facility] 2020-06-03 2020-06-03 Outpatient STLMLC STLMLC [id number] Common 00:00:00 00:00:00 [facility] 2020-06-02 2020-06-02 Telephone [facility] 1.2.578.858 [id number] Univers 00:00:00 00:00:00 Sendtequila Cunningham 350.1.13.10 ity [facility] [place]2.7.2.[place] [phone] [address] 2020-06-02 2020-06-02 [facility] 1.2.739.595 [id number] 3514 00:00:00 00:00:00 Imani Cunningham 350.1.13.10 [place] 4.2.7.2.686 Professio [id number] [address] 2020-05-31 2020-05-31 Outpatient STLMLC STLMLC [id number] Common 00:00:00 00:00:00 [facility] 2020-05-07 2020-05-07 Outpatient STLMLC STLMLC [id number] Common 00:00:00 00:00:00 [facility] 2020-05-05 2020-05-05 [facility] 1.2.727.216 [id number] [id number] Univers 00:00:00 00:00:00 Imani Cunningham 350.1.13.10 ity [facility] 4.2.7.2.[place] Profess[place] [phone] [address] 2020-05-05 2020-05-05 [facility] 1.2.451.230 [id number] 6549 00:00:00 00:00:00 Imani Cunningham 350.1.13.10 [place] 4.2.7.2.686 Professio [phone] [address] 2020-05-02 2020-05-[address] [facility] 1.2.840.114 [id number] Univers 08:58:15 23:59:00 Encounter Sendil [facility] 350.1.13.10 ity of [place].2.[place] CENTER AT [phone] Mn pamella SANTOS [address] [place] [address] 2020-05-02 2020-05-[address] [facility] 1.2.840.114 [id number] 376 08:58:15 23:59:00 Encounter Sendil [facility] 350.1.13.10 CARE 4.2.7.2.686 CENTER AT [phone] [address] 2020-05-02 2020-05-02 Outpatient R [facility] [id number] Univers 09:00:00 09:00:00 SENDIL ity [facility] 2020-05-02 2020-05-[address] [facility] 1.2.840.114 [id number] 377 [facility] 08:32:07 08:57:00 Encounter Sendil [facility] 350.1.13.10 ity of [place] 4[place]2.7.2.[place] CENTER AT [phone] Mn aliza[address] 2020-05-02 2020-05-[address] [facility] 1.2.840.114 [id number] [facility] 08:32:07 08:57:00 Encounter Sendil [facility] 350.1.13.10 CARE 4.2.7.2.686 CENTER AT [phone] [address] 2020-05-02 2020-05-[address] [facility] 1.2.840.114 [id number] [facility] 08:31:50 08:31:50 Encounter [facility]. SPECIALTY 350.1.13.10 [place] [phone] Mn pamella [address] 2020-05-02 2020-05-[address] [facility] 1.2.840.114 [id number] [facility] 08:31:50 08:31:50 Encounter [facility]. SPECIALTY 350.1.13.10 CARE 4.2.7.2.686 CENTER AT [phone] [address] 2020-05-02 2020-05-02 Hospital [facility] 1.2.840.114 [id number] [facility] 08:31:12 08:31:12 Encounter Sendil K.HDonya SPECIALTY 350.1.13.10 [place] [phone] Mn dical VICTORY 805 [facility] 2020-05-02 2020-05-[address] [facility] 1.2.840.114 [id number] 08:31:12 08:31:12 Encounter Sendil K.HDonya SPECIALTY 350.1.13.10 CARE 4.2.7.2.686 CENTER AT [phone] [address] 2020-04-24 2020-04-24 [facility] [id number] Univers 10:30:00 10:30:00 SENDIL ity of [facility] 2020-04-16 2020-04-16 [facility] [id number] Common 00:00:00 00:00:00 [facility] 2020-04-11 2020-04-11 Orders Doctor LAUREN 1.2.840.114 [id number] Univers 00:00:00 00:00:00 Only Unassigned, NICHOLAS 350.1.13.10 ity of [place] 4.2.7.2.686 Ronnie as [phone] [facility] [address] [place] 2020-04-11 2020-04-11 Orders Doctor AGUILAR 1.2.840.114 [id number] 00:00:00 00:00:00 Only Unassigned, NICHOLAS 350.1.13.10 [place] 4.2.7.2.686 [id number] 009 2020-04-10 2020-04-10 Telephone [facility] [id number] [id number] Univers 00:00:00 00:00:00 Sendtequila Regan.Abdoulaye [place] 350.1.13.10 ity [place] [phone] Mn dical nal 059 [facility] 2020-04-09 2020-04-09 Telephone [facility] 1.2.268.351 [id number] Univers 00:00:00 00:00:00 Imani Cunningham 350.1.13.10 [place] [phone] [place] dic[address] 2020-04-08 2020-04-08 [facility] 1.2.526.454 [id number] Univers 00:00:00 00:00:00 Imani Cunningham 350.1.13.10 [place] 4[place]2.[place] [phone] [place] dic[address] 2020-04-08 2020-04-08 [facility] 1.2.382.720 [id number] 00:00:00 00:00:00 Imani Cunningham 350.1.13.10 [place] 4.2.7.2.686 Professio [phone] [address] 2020-04-01 2020-04-01 [facility] 1.2.840.114 [id number] Univers 10:44:06 12:00:21 Visit Imani Cunningham 350.1.13.10 [place] [phone] [address] 2020-04-01 2020-04-01 [facility] [id number] Univers 11:00:00 11:00:00 SENDIL ity [facility] 2020-04-01 2020-04-01 Outpatient [facility] [id number] Common 00:00:00 00:00:00 [facility] 2020-04-01 2020-04-01 [facility] 1.2.416.711 [id number] Univers 00:00:00 00:00:00 Imani Cunningham 350.1.13.10 [place] [phone] [address] 2020-03-31 2020-03-31 Outpatient [facility]LML[facility] [id number] Common 00:00:00 00:00:00 [facility] [facility] 2020-03-27 2020-03-27 Office Cool, BCM 1.2.840.114 [id number] [facility] 13:04:09 13:34:09 Visit Dimpi Ramses AMBULATOR 350.1.13.21 College Y 0.2.7.2.686 of [phone] [facility] 310 e 2020-03-27 2020-03-27 Office Cool, BCM 1.2.840.114 [id number] 13:04:09 13:34:09 Visit Dimpi Ramses AMBULATOR 350.1.13.21 Y 0.2.7.2.686 [id number] 310 2020-03-24 2020-03-24 Outpatient STLMLC STLMLC [id number] Common 00:00:00 00:00:00 [facility] 2020-03-17 2020-03-17 Outpatient STLMLC STLMLC [id number] Common 00:00:00 00:00:00 [facility] 2020-03-17 2020-03-17 Telephone Salena [facility] [id number] Univers 00:00:00 00:00:[address] [facility] 4.2.7.2.686 Airam Samson [phone] Mn dical nal 059 [facility] 2020-03-12 2020-03-12 Outpatient STLMLC STLMLC [id number] Common 00:00:00 00:00:00 [facility] 2020-03-11 2020-03-11 Outpatient STLMLC STLMLC [id number] Common 00:00:00 00:00:00 [facility] 2020-03-03 2020-03-03 Outpatient STLMLC STLMLC [id number] Common 00:00:00 00:00:00 [facility] 2020-02-14 2020-02-14 Outpatient STLMLC STLMLC [id number] Common 00:00:00 00:00:00 [facility] 2020-02-11 2020-02-11 Outpatient STLMLC STLMLC [id number] Common 00:00:00 00:00: [facility] 2020-02-08 2020-02-08 Outpatient STLMLC STLMLC [id number] Common 00:00:00 00:00:00 [facility] 2020-02-01 2020-02-01 Outpatient R [facility] [id number] Univers 16:00:00 16:00:00 ity of [facility] 2020-02-01 2020-02-01 Nurse Visit, [facility] Nurse [facility] 1.2.840.1 [id number] Univers 07:53:14 08:46:38 Visit Imani Martino 350.1.13. 10 ity [facility] [place] [phone] Mn dical nal [address] [place] [address] 2020-01-30 2020-01-30 Outpatient STLMLC STLMLC [id number] Common 00:00:00 00:00: [facility] 2020-01-29 2020-01-29 Office Salena [facility] 1.2.840.114 [id number] Univers 11:10:54 12:45:41 Visit Imani Cunningham 350.1.13.10 ity [facility] [place] [phone] Mn dical nal [address] [place] [address] 2020-01-29 2020-01-29 Outpatient R SALENA [facility] [id number] Univers 11:30:00 11:30:00 SENDIL ity [facility] 2020-01-29 2020-01-29 Orders Doctor AGUILAR 1.2.840.114 [id number] Univers 00:00:00 00:00:00 Only Unassigned, NICHOLAS 350.1.13.10 [facility] 4.2.7.2.686 Ronnie as [phone] [address] 2020-01-23 2020-01-23 Outpatient STLMLC STLMLC [id number] Common 00:00:00 00:00: [facility] 2020-01-22 2020-01-22 Outpatient STLMLC STLMLC [id number] Common 00:00:00 00:00:00 [facility] 2020-01-16 2020-01-16 Orders Doctor LAUREN 1.2.840.114 [id number] Univers 00:00:00 00:00:00 Only Unassigned, NICHOLAS 350.1.13.10 [place] [facility] 4.2.7.2.686 Ronnie as [phone] [facility] [address] [place] 2020-01-15 2020-01-15 Outpatient STLMLC STLMLC [id number] Common 00:00:00 00:00:00 [facility] 2020-01-10 2020-01-10 Telephone Salena [facility] [id number] Univers 00:00:00 00:00:00 Sendtequila Cunningham 350.1.13.10 ity of [place] [phone] Mn dical nal 059 [facility] 2020-01-09 2020-01-09 Outpatient STLMLC STLMLC [id number] Common 00:00:00 00:00:00 [facility] 2020-01-07 2020-01-07 Orders Doctor LAUREN 1.2.840.114 [id number] Univers 00:00:00 00:00:00 Only Unassigned, NICHOLAS 350.1.13.10 [facility] 4.2.7.2.686 Ronnie as [phone] [facility] [address] [place] 2020-01-07 2020-01-07 Outpatient STLMLC STLMLC [id number] Common 00:00:00 00:00:00 [facility] 2020-01-03 2020-01-03 [facility] [id number] Univers 11:07:14 12:05:52 Visit Angelina Cunningham 350.1.13.10 i ty of [place] [phone] Mn dical nal 188 [facility] 2020-01-03 2020-01-03 Outpatient R JONI [facility] [id number] Univers 11:15:00 11:15:00 ANGELINA kirill [facility] 2020-01-01 2020-01-01 [facility] [id number] Univers 15:30:00 15:30:00 ANGELINA howard [facility] 2019-12-19 2019-12-19 [facility] [id number] Common 16:30:00 16:30:[address] [facility] 2019-12-18 2019-12-18 Out[facility] [id number] Common 13:33:00 13:33:[address] [facility] 2019-12-18 2019-12-18 Laboratory Pc, Adc Echo Room 1 - [facility] 1 .2.840.114 [id number] Univers 09:52:20 11:27:29 Only Imani Martino 350.1.13. 10 ity [facility] 4.2.7.2.[place] [phone] Mn dical nal 9 [facility] 2019-12-18 2019-12-18 Outpatient R [facility] [id number] Univers 10:00:00 10:00:00 ity of [facility] 2019-12-13 2019-12-13 Office Salena [facility] 1.2.840.114 [id number] Univers 10:43:37 11:48:34 Visit Imani Cunningham 350.1.13.10 ity [facility] 4.2.7.2.[place] [phone] Mn dical nal 059 [facility] 2019-12-13 2019-12-13 Outpatient R SALENA [facility] [id number] Univers 11:00:00 11:00:00 IMANI howard [facility] 2019-12-13 2019-12-13 Orders Doctor AGUILAR 1.2.840.114 [id number] Univers 00:00:00 00:00:00 Only Unassigned, NICHOLAS 350.1.13.10 [facility] 4.2.7.2.686 Ronnie as [phone] [place] [address] [place] 2019-12-13 2019-12-13 [facility] 1.2.840.114 [id number] Univers 00:00:00 00:00:00 Imani [place].1.13.10 [place] [phone] Mn dical [facility] 059 [facility] 2019-12-09 2019-12-09 Outpatient [facility] [id number] Common 17:43:00 17:43:00 [address] [place] [address] [facility] 2019-12-04 2019-12-04 [facility]patient [facility] [id number] Univers 13:30:00 13:30:00 ANGELINA [facility] 2019-11-26 2019-11-26 Out[facility] [id number] Common 15:17:00 15:17:00 [address] [place] [address] [facility] 2019-11-24 2019-11-24 Outpatient [facility] [id number] Common 15:24:00 15:24:00 [place] [address] [facility] 2019-11-22 2019-11-22 Outpatient [facility] [id number] Common 16:03:00 16:03:00 [place] [address] [facility] 2019-11-19 2019-11-19 Outpatient [facility] [id number] Common 14:35:00 14:35:00 [place] [address] Family [facility] 2019-11-16 2019-11-16 Out[facility] [id number] Common 09:15:00 09:15:00 [address] [place] [address] [facility] 2019-11-09 2019-11-09 Outpatient SLSL SLSL [id number] SLSL 00:00:00 00:00:00 2019-11-08 2019-11-08 Out[facility] [id number] Common 09:12:00 09:12:00 [address] [place] [address] Family [facility] 2019-11-08 2019-11-08 Outpatient SLSL SLSL [id number] SLSL 00:00:00 00:00:00 2019-11-08 2019-11-08 Outpatient EL SLSL [facility]SL [id number] [facility]SL 00:00:00 00:00:00 2019-11-02 2019-11-02 Outpatient SLSL SLSL [id number] SLSL 00:00:00 00:00:00 2019-11-01 2019-11-01 Outpatient SLSL [facility]SL [id number] SLSL 00:00:00 00:00:00 2019-11-01 2019-11-01 Outpatient EL SLSL SLSL [id number] SLSL 00:00:00 00:00:00 2019-10-30 2019-10-30 Out[facility] [id number] Common 17:05:00 17:05:00 [address] [place] [address] [facility] 2019-10-29 2019-10-29 Outpatient [facility] [id number] Common 15:04:00 15:04:00 [place] [address] [facility] 2019-10-29 2019-10-29 Outpatient [facility] [id number] Common 08:06:00 08:06:00 [place] [address] [facility] 2019-10-23 2019-10-23 Office Joni [facility] [id number] Univers 15:00:23 15:30:23 Visit Angelina Cunningham 350.1.13.10 ghazala fontenot [facility] 4.2.7.2.686 Airam s Professio [phone] Mn dical [address] 2019-10-23 2019-10-23 [facility] [id number] Univers 15:00:00 15:00:00 ANGELINA howard of [facility] 2019-10-23 2019-10-23 Orders Doctor AGUILAR 1.2.840.114 [id number] Univers 00:00:00 00:00:00 Only Unassigned, NICHOLAS 350.1.13.10 ity [place] [facility] 4.2.7.2.686 Ronnie as [phone] [address] 2019-10-22 2019-10-22 Outpatient Asher Sterlingt [id number] Common 12:23:00 12:23:00 [place] [address] [facility] 2019-10-18 2019-10-18 Outpatient [facility] [id number] Common 14:30:00 14:30:00 [place] [address] [facility] 2019-09-20 2019-09-20 Outpatient Asher [facility] [id number] Common 09:00:00 09:00:00 [address] [place] [address] [facility] 2019-09-20 2019-09-20 Orders Doctor AGUILAR 1.2.840.114 [id number] Univers 00:00:00 00:00:00 Only Unassigned, NICHOLAS 350.1.13.10 ity [place] [facility] 4.2.7.2.686 Ronnie as [phone] [address] 2018-11-28 2018-11-28 [facility] 1.2.403.572 [id number] Univers 00:00:00 00:00:00 [facility]mael [facility] 350.1.13.10 it y of Surgical 4.2.7.2.686 Ronnie as Specialti [phone] Mn dical es [address] [facility] 2018-11-27 2018-11-27 Telephone [facility] 1.2.840.114 [id number] Univers 00:00:00 00:00:00 Denys [facility] 350.1.13.10 it y of Surgical 4.2.7.2.686 Ronnie as Specialti [phone] Mn dical es 198 [facility] Results Test Description Test Time Test Comments Results Result Comments Source ECG 12 lead 2022-08-05 22:59:20 Test Item Value Reference Range Interpretation Comme nts Ventricular rate (test code = 253) 62 Atrial rate (test code = 255) 62 ND interval (test code = 266) 196 QRSD interval (test code = 260) 88 QT interval (test code = 264) 428 QTC interval (test code = 265) 434 P axis 1 (test code = 267) 27 QRS axis 1 (test code = 268) 18 T wave axis (test code = 270) 22 EKG impression (test code = 273) Normal sinus rhythm-Normal ECG-In automated comparison with ECG of 04-AUG-2022 16:36,-No significant change was found- [facility] METABOLIC PANEL (NA, K, CL, CO2, GLUCOSE, BUN, CREATININE, CA)2022-07-02 17:07:27 Test Item Value Reference Range Interpretation Comments NA (test code = 137 mmol/L 135-145 9120451354) K (test code = 3.2 mmol/L 3.5-5.0 L 8688369786) CL (test code = 100 mmol/L 98-108 1135419553) CO2 TOTAL (test code = 30 mmol/L 23-31 6150646592) AGAP (test code = 7 2-16 8590932087) BUN (test code = 16 mg/dL 7-23 2554918553) GLUCOSE (test code = 104 mg/dL 70-110 9490559671) CREATININE (test code = 0.77 mg/dL 0.50-1.04 0215107515) CALCIUM (test code = 8.8 mg/dL 8.6-10.6 9080138440) eGFR (test code = 80.4 mL/min/1.73m2 9440274382) BEHZAD (test code = BEHZAD) Association of Glomerular Filtration Rate (GFR) and Staging of Kidney Disease* + --+ --+ ------+| GFR (mL/min/1.73 m2) ?| With Kidney Damage ?| ?Without Kidney Damage+ --------+ --------+ +| ?>90 ?| ?Stage one ?| ? Normal ?+ ---+ ---+ -------+| ?60-89 ?| ?Stage two ?| ? Decreased GFR ? + --+ --+ ------+| ?30-59 ?| ?Stage three ?| ? Stage three ? + --+ --+ ------+| ?15-29 ?| ?Stage four ? | ? Stage four ?+ ---+ ---+ -------+| ?<15 (or dialysis) ? ?| ?Stage five ? | ? Stage five ?+ ---+ ---+ -------+ *Each stage assumes the associated GFR level has been in effect for at least three months. ?Stages 1 to 5, with or without kidney disease, indicate chronic kidney disease. Notes: Determination of stages one and two (with eGFR >59mL/min/1.73 m2) requires estimation of kidney damage for at least three months as defined by structural or functional abnormalities of the kidney, manifested by either:Pathological abnormalities or Markers of kidney damage (including abnormalities in the composition of the blood or urine or abnormalities in imaging tests). Lab Interpretation Abnormal (test code = 12479-3) [facility] (NA, K, CL, CO2, GLUCOSE, BUN, CREATININE, CA)2022-07-02 17:07:27 Test Item Value Reference Range Interpretation Comments NA (test code = 137 mmol/L 135-145 4857268384) K (test code = 3.2 mmol/L 3.5-5.0 L 3607348225) CL (test code = 100 mmol/L 98-108 7668574327) CO2 TOTAL (test code = 30 mmol/L 23-31 6255104338) AGAP (test code = 7 2-16 3918796977) BUN (test code = 16 mg/dL 7-23 9462372719) GLUCOSE (test code = 104 mg/dL 70-110 8753154584) CREATININE (test code = 0.77 mg/dL 0.50-1.04 7118665940) CALCIUM (test code = 8.8 mg/dL 8.6-10.6 6272493787) eGFR (test code = 80.4 mL/min/1.73m2 8561696982) BEHZAD (test code = BEHZAD) Association of Glomerular Filtration Rate (GFR) and Staging of Kidney Disease* + --+ --+ ------+| GFR (mL/min/1.73 m2) ?| With Kidney Damage ?| ?Without Kidney Damage+ --------+ --------+ +| ?>90 ?| ?Stage one ?| ? Normal ?+ ---+ ---+ -------+| ?60-89 ?| ?Stage two ?| ? Decreased GFR ? + --+ --+ ------+| ?30-59 ?| ?Stage three ?| ? Stage three ? + --+ --+ ------+| ?15-29 ?| ?Stage four ? | ? Stage four ?+ ---+ ---+ -------+| ?<15 (or dialysis) ? ?| ?Stage five ? | ? Stage five ?+ ---+ ---+ -------+ *Each stage assumes the associated GFR level has been in effect for at least three months. ?Stages 1 to 5, with or without kidney disease, indicate chronic kidney disease. Notes: Determination of stages one and two (with eGFR >59mL/min/1.73 m2) requires estimation of kidney damage for at least three months as defined by structural or functional abnormalities of the kidney, manifested by either:Pathological abnormalities or Markers of kidney damage (including abnormalities in the composition of the blood or urine or abnormalities in imaging tests). Lab Interpretation Abnormal (test code = 44918-1) [facility]IC [facility] (NA, K, CL, CO2, GLUCOSE, BUN, CREATININE, CA)2022-07-02 17:07:27 Test Item Value Reference Range Interpretation Comments NA (test code = 137 mmol/L 135-145 3787555498) K (test code = 3.2 mmol/L 3.5-5.0 L 0198944193) CL (test code = 100 mmol/L 98-108 7855519069) CO2 TOTAL (test code = 30 mmol/L 23-31 5813486591) AGAP (test code = 7 2-16 7065935584) BUN (test code = 16 mg/dL 7-23 1154163164) GLUCOSE (test code = 104 mg/dL 70-110 0047773163) CREATININE (test code = 0.77 mg/dL 0.50-1.04 6673346387) CALCIUM (test code = 8.8 mg/dL 8.6-10.6 8822482032) eGFR (test code = 80.4 mL/min/1.73m2 0399000534) BEHZAD (test code = BEHZAD) Association of Glomerular Filtration Rate (GFR) and Staging of Kidney Disease* + --+ --+ ------+| GFR (mL/min/1.73 m2) ?| With Kidney Damage ?| ?Without Kidney Damage+ --------+ --------+ +| ?>90 ?| ?Stage one ?| ? Normal ?+ ---+ ---+ -------+| ?60-89 ?| ?Stage two ?| ? Decreased GFR ? + --+ --+ ------+| ?30-59 ?| ?Stage three ?| ? Stage three ? + --+ --+ ------+| ?15-29 ?| ?Stage four ? | ? Stage four ?+ ---+ ---+ -------+| ?<15 (or dialysis) ? ?| ?Stage five ? | ? Stage five ?+ ---+ ---+ -------+ *Each stage assumes the associated GFR level has been in effect for at least three months. ?Stages 1 to 5, with or without kidney disease, indicate chronic kidney disease. Notes: Determination of stages one and two (with eGFR >59mL/min/1.73 m2) requires estimation of kidney damage for at least three months as defined by structural or functional abnormalities of the kidney, manifested by either:Pathological abnormalities or Markers of kidney damage (including abnormalities in the composition of the blood or urine or abnormalities in imaging tests). Lab Interpretation Abnormal (test code = 25574-8) [facility] / [id number] 16:54:42 Test Item Value Reference Range Interpretation Comments PROTIME PATIENT (test 12.8 See_Comment H [Auto mated message] code = 5964-2) The system Simio generated this result transmitted ref erence range: 10.1 - 1 2.6 Seconds. The reference range was not used to int erpret this result as normal/abnormal . INR (test code = 6301-6) 1.2 Nor mal INR <1.1; Warfarin Therap eutic range 2.0 to 3. 0 or 2.5 to 3.5, dep ending upon the indica tions. Lab Interpretation (test Abnormal code = 91893-9) [facility] / [id number] 16:54:42 Test Item Value Reference Range Interpretation Comments PROTIME PATIENT (test 12.8 See_Comment H [Auto mated message] code = 5964-2) The system Simio generated this result transmitted ref erence range: 10.1 - 1 2.6 Seconds. The reference range was not used to int erpret this result as normal/abnormal . INR (test code = 6301-6) 1.2 Nor mal INR <1.1; Warfarin Therap eutic range 2.0 to 3. 0 or 2.5 to 3.5, dep ending upon the indica tions. Lab Interpretation (test Abnormal code = 53632-5) [facility] / [id number] 16:54:42 Test Item Value Reference Range Interpretation Comments PROTIME PATIENT (test 12.8 See_Comment H [Auto mated message] code = 5964-2) The system wh ich generated this result transmitted ref erence range: 10.1 - 1 2.6 Seconds. The reference range was not used to int erpret this result as normal/abnormal . INR (test code = 6301-6) 1.2 Nor mal INR <1.1; Warfarin Therap eutic range 2.0 to 3. 0 or 2.5 to 3.5, dep ending upon the indica tions. Lab Interpretation (test Abnormal code = 11144-1) [facility] Center[facility] WITH [id number] 16:53:20 Test Item Value Reference Range Interpretation Comments WBC (test code = 8.10 See_Comment [Automated 7790-2) message] The sy stem which generated this result transmitted reference range : 4.30 - 11.10 10*3/?L. The reference range was not used to interpret this result as normal/abnormal . RBC (test code = 5.22 See_Comment [Automated 349-8) message] The sy stem which generated this result transmitted reference range : 3.93 - 5.25 10*6/?L. The reference range was not used to interpret this result as normal/abnormal . HGB (test code = 14.6 g/dL 11.6-15.0 718-7) HCT (test code = 44.1 % 35.7-45.2 4544-3) MCV (test code = 84.5 fL 80.6-95.5 787-2) MCH (test code = 28.0 pg 25.9-32.8 785-6) MCHC (test code = 33.1 g/dL 31.6-35.1 786-4) RDW-SD (test code = 40.9 fL 39.0-49.9 01377-2) RDW-CV (test code = 13.3 % 12.0-15.5 788-0) PLT (test code = 363 See_Comment H [Automated 777-3) message] The sy stem which generated this result transmitted reference range : 166 - 358 10*3/ ?L. The reference r benito was not used to interpret this result as normal/abnormal . MPV (test code = 8.9 fL 9.5-12.9 L 18875-9) NRBC/100 WBC (test 0.0 See_Comment [Automat ed code = 0989958387) message] The system which generated this result transmitted reference range : 0.0 - 10.0 /100 WBCs. The refer ence range was not u sed to interpret th is result as normal/abnormal . NRBC x10^3 (test code See_Comment [Auto mated = 2875569208) message] The s ystem which generated this result transmitted reference range : 10*3/?L. The reference range was not used to interpret this result as normal/abnormal . GRAN MAT (NEUT) % 65.9 % (test code = 770-8) IMM GRAN % (test code 0.20 % = 7264083291) LYMPH % (test code = 22.7 % 736-9) MONO % (test code = 8.0 % 5905-5) EOS % (test code = 2.5 % 713-8) BASO % (test code = 0.7 % 706-2) GRAN MAT x10^3(ANC) 5.33 10*3/uL 1.88-7.09 (test code = 7554945903) IMM GRAN x10^3 (test 0.00-0.06 code = 8763124584) LYMPH x10^3 (test code 1.84 10*3/uL 1.32-3.29 = 731-0) MONO x10^3 (test code 0.65 10*3/uL 0.33-0.92 = 742-7) EOS x10^3 (test code = 0.20 10*3/uL 0.03-0.39 711-2) BASO x10^3 (test code 0.06 10*3/uL 0.01-0.07 = 704-7) Lab Interpretation Abnormal (test code = 74152-9) [facility] WITH [id number] 16:53:20 Test Item Value Reference Range Interpretation Comments WBC (test code = 8.10 See_Comment [Automated 6690-2) message] The sy stem which generated this result transmitted reference range : 4.30 - 11.10 10*3/?L. The reference range was not used to interpret this result as normal/abnormal . RBC (test code = 5.22 See_Comment [Automated 789-8) message] The sy stem which generated this result transmitted reference range : 3.93 - 5.25 10*6/?L. The reference range was not used to interpret this result as normal/abnormal . HGB (test code = 14.6 g/dL 11.6-15.0 718-7) HCT (test code = 44.1 % 35.7-45.2 4544-3) MCV (test code = 84.5 fL 80.6-95.5 787-2) MCH (test code = 28.0 pg 25.9-32.8 785-6) MCHC (test code = 33.1 g/dL 31.6-35.1 786-4) RDW-SD (test code = 40.9 fL 39.0-49.9 52284-4) RDW-CV (test code = 13.3 % 12.0-15.5 788-0) PLT (test code = 363 See_Comment H [Automated 777-3) message] The sy stem which generated this result transmitted reference range : 166 - 358 10*3/ ?L. The reference r benito was not used to interpret this result as normal/abnormal . MPV (test code = 8.9 fL 9.5-12.9 L 73724-7) NRBC/100 WBC (test 0.0 See_Comment [Automat ed code = 3194362055) message] The system which generated this result transmitted reference range : 0.0 - 10.0 /100 WBCs. The refer ence range was not u sed to interpret th is result as normal/abnormal . NRBC x10^3 (test code See_Comment [Auto mated = 3620175826) message] The s ystem which generated this result transmitted reference range : 10*3/?L. The reference range was not used to interpret this result as normal/abnormal . GRAN MAT (NEUT) % 65.9 % (test code = 770-8) IMM GRAN % (test code 0.20 % = 9842788350) LYMPH % (test code = 22.7 % 736-9) MONO % (test code = 8.0 % 5905-5) EOS % (test code = 2.5 % 713-8) BASO % (test code = 0.7 % 706-2) GRAN MAT x10^3(ANC) 5.33 10*3/uL 1.88-7.09 (test code = 1125584972) IMM GRAN x10^3 (test 0.00-0.06 code = 9287078269) LYMPH x10^3 (test code 1.84 10*3/uL 1.32-3.29 = 731-0) MONO x10^3 (test code 0.65 10*3/uL 0.33-0.92 = 742-7) EOS x10^3 (test code = 0.20 10*3/uL 0.03-0.39 711-2) BASO x10^3 (test code 0.06 10*3/uL 0.01-0.07 = 704-7) Lab Interpretation Abnormal (test code = 77583-6) [facility] WITH [id number] 16:53:20 Test Item Value Reference Range Interpretation Comments WBC (test code = 8.10 See_Comment [Automated 7164-2) message] The sy stem which generated this result transmitted reference range : 4.30 - 11.10 10*3/?L. The reference range was not used to interpret this result as normal/abnormal . RBC (test code = 5.22 See_Comment [Automated 158-8) message] The sy stem which generated this result transmitted reference range : 3.93 - 5.25 10*6/?L. The reference range was not used to interpret this result as normal/abnormal . HGB (test code = 14.6 g/dL 11.6-15.0 718-7) HCT (test code = 44.1 % 35.7-45.2 4544-3) MCV (test code = 84.5 fL 80.6-95.5 787-2) MCH (test code = 28.0 pg 25.9-32.8 785-6) MCHC (test code = 33.1 g/dL 31.6-35.1 786-4) RDW-SD (test code = 40.9 fL 39.0-49.9 54609-3) RDW-CV (test code = 13.3 % 12.0-15.5 788-0) PLT (test code = 363 See_Comment H [Automated 777-3) message] The sy stem which generated this result transmitted reference range : 166 - 358 10*3/ ?L. The reference r benito was not used to interpret this result as normal/abnormal . MPV (test code = 8.9 fL 9.5-12.9 L 82780-7) NRBC/100 WBC (test 0.0 See_Comment [Automat ed code = 3189198759) message] The system which generated this result transmitted reference range : 0.0 - 10.0 /100 WBCs. The refer ence range was not u sed to interpret th is result as normal/abnormal . NRBC x10^3 (test code See_Comment [Auto mated = [id number]) message] The s ystem which generated this result transmitted reference range : 10*3/?L. The reference range was not used to interpret this result as normal/abnormal . GRAN MAT (NEUT) % 65.9 % (test code = 770-8) IMM GRAN % (test code 0.20 % = 3075465158) LYMPH % (test code = 22.7 % 736-9) MONO % (test code = 8.0 % 5905-5) EOS % (test code = 2.5 % 713-8) BASO % (test code = 0.7 % 706-2) GRAN MAT x10^3(ANC) 5.33 10*3/uL 1.88-7.09 (test code = 8593775548) IMM GRAN x10^3 (test 0.00-0.06 code = 3524958934) LYMPH x10^3 (test code 1.84 10*3/uL 1.32-3.29 = 731-0) MONO x10^3 (test code 0.65 10*3/uL 0.33-0.92 = 742-7) EOS x10^3 (test code = 0.20 10*3/uL 0.03-0.39 711-2) BASO x10^3 (test code 0.06 10*3/uL 0.01-0.07 = 704-7) Lab Interpretation Abnormal (test code = 35341-8) [facility]Total Cholesterol, Triglycerides, HDL)2022-05-24 11:25:37 Test Item Value Reference Range Interpretation Comments CHOL (test code = 7380122771) 222 mg/dL 120-200 H HDL (test code = 4612346773) 31 mg/dL >=50 L HDLC RATIO (test code = 4587391578) 7.2 <=4.5 H TRIG (test code = 8497249832) 214 mg/dL 30-170 H LDL CHOL (test code = 94640-5) 148 mg/dL <=160 VLDL (test code = 1656170286) 43 mg/dL 5-60 Lab Interpretation (test code = Abnormal 37071-4) [facility] [id number] 06:16:00 Test Item Value Reference Range Interpretation Comments TROPONIN I (test code = 0.003 ng/mL <=0.034 2090002094) BEHZAD (test code = BEHZAD) Reference (Normal) Range (defined by the 99th percentile reference limit): <= 0.034 ng/mL Note: Cardiac troponin begins to rise 3-4 hours after the onset of ischemia. Repeat in 4-6 hours if the sample was drawn within 3-4 hours of the onset of the symptom and found normal. Diagnosis of myocardial injury is made with acute changes in cTn concentrations with at least one serial sample above the 99th percentile upper reference limit (URL), taken together with the patient's clinical presentation. Biotin has been reported to cause a negative bias, interpret results relative to patient's use of biotin. Lab Interpretation Normal (test code = 41571-2) [facility] CenterN-[facility]MINAL [id number] 06:13:00 Test Item Value Reference Range Interpretation Comments NT-proBNP (test code = 28 pg/mL <=125 2292856667) BEHZAD (test code = BEHZAD) Biotin has been reported to cause a negative bias, interpret results relative to patient's use of biotin. Lab Interpretation (test Normal code = 69063-8) [facility]. METABOLIC PANEL (07417)2022-05-24 06:04:03 Test Item Value Reference Range Interpretation Comments NA (test code = 134 mmol/L 135-145 L 0675959313) K (test code = 3.8 mmol/L 3.5-5.0 4310231178) CL (test code = 101 mmol/L 98-108 1920674772) CO2 TOTAL (test code = 23 mmol/L 23-31 3029131100) AGAP (test code = 10 2-16 5911210755) BUN (test code = 15 mg/dL 7-23 4531128389) GLUCOSE (test code = 173 mg/dL 70-110 H 0330427261) CREATININE (test code = 0.85 mg/dL 0.50-1.04 1702866629) TOTAL BILI (test code = 0.7 mg/dL 0.1-1.9 8242465819) CALCIUM (test code = 8.8 mg/dL 8.6-10.6 1333804623) T PROTEIN (test code = 7.1 g/dL 6.3-8.2 3294747399) ALBUMIN (test code = 4.0 g/dL 3.5-5.0 8193189559) ALK PHOS (test code = 132 U/L 34-122 H 4857856892) ALTv (test code = 65 U/L 5-35 H 1742-6) AST(SGOT) (test code = 57 U/L 13-40 H 4450003507) eGFR (test code = 71.7 mL/min/1.73m2 4849212326) BEHZAD (test code = BEHZAD) Association of Glomerular Filtration Rate (GFR) and Staging of Kidney Disease* + --+ --+ ------+| GFR (mL/min/1.73 m2) ?| With Kidney Damage ?| ?Without Kidney Damage+ --------+ --------+ +| ?>90 ?| ?Stage one ?| ? Normal ?+ ---+ ---+ -------+| ?60-89 ?| ?Stage two ?| ? Decreased GFR ? + --+ --+ ------+| ?30-59 ?| ?Stage three ?| ? Stage three ? + --+ --+ ------+| ?15-29 ?| ?Stage four ? | ? Stage four ?+ ---+ ---+ -------+| ?<15 (or dialysis) ? ?| ?Stage five ? | ? Stage five ?+ ---+ ---+ -------+ *Each stage assumes the associated GFR level has been in effect for at least three months. ?Stages 1 to 5, with or without kidney disease, indicate chronic kidney disease. Notes: Determination of stages one and two (with eGFR >59mL/min/1.73 m2) requires estimation of kidney damage for at least three months as defined by structural or functional abnormalities of the kidney, manifested by either:Pathological abnormalities or Markers of kidney damage (including abnormalities in the composition of the blood or urine or abnormalities in imaging tests). Lab Interpretation Abnormal (test code = 28025-6) [facility]2023-[facility] 06:03:58 Test Item Value Reference Range Interpretation Comments LIPASE (test code = 3810233590) 59 U/L 0-220 Lab Interpretation (test code = Normal 58687-5) [facility] CenterACTIVATED PARTIAL THRMPLAS [id number] 05:59:40 Test Item Value Reference Range Interpretation Comments APTT Patient (test 26 See_Comment [Automat ed code = 3173-2) message] The system which generated this result transmitted reference range : 23 - 38 Seconds . The reference range was not used to interpr et this result as normal/abnormal . BEHZAD (test code = BEHZAD) The [facility] patient population mean normal value for aPTT is 30 seconds. Lab Interpretation Normal (test code = 77917-2) [facility] CenterPROTHROMBIN TIME / [id number] 05:57:19 Test Item Value Reference Range Interpretation Comments PROTIME PATIENT (test 12.8 See_Comment [Auto mated message] code = 5964-2) The system wh ich generated this result transmitted ref erence range: 12.0 - 1 4.7 Seconds. The re ference range was not u sed to interpret this result as normal/abnor mal. INR (test code = 6301-6) 1.0 Nor mal INR <1.1; Warfarin Therap eutic range 2.0 to 3. 0 or 2.5 to 3.5, dep ending upon the indica tions. Lab Interpretation (test Normal code = 07681-2) [facility] WITH [id number] 05:48:58 Test Item Value Reference Range Interpretation Comments WBC (test code = 9.02 See_Comment [Automated 8590-2) message] The sy stem which generated this result transmitted reference range : 4.30 - 11.10 10*3/?L. The reference range was not used to interpret this result as normal/abnormal . RBC (test code = 5.23 See_Comment [Automated 459-8) message] The sy stem which generated this result transmitted reference range : 3.93 - 5.25 10*6/?L. The reference range was not used to interpret this result as normal/abnormal . HGB (test code = 14.9 g/dL 11.6-15.0 718-7) HCT (test code = 44.9 % 35.7-45.2 4544-3) MCV (test code = 85.9 fL 80.6-95.5 787-2) MCH (test code = 28.5 pg 25.9-32.8 785-6) MCHC (test code = 33.2 g/dL 31.6-35.1 786-4) RDW-SD (test code = 43.1 fL 39.0-49.9 47820-6) RDW-CV (test code = 13.8 % 12.0-15.5 788-0) PLT (test code = 405 See_Comment H [Automated 887-3) message] The sy stem which generated this result transmitted reference range : 166 - 358 10*3/ ?L. The reference r benito was not used to interpret this result as normal/abnormal . MPV (test code = 8.7 fL 9.5-12.9 L 16740-4) NRBC/100 WBC (test 0.0 See_Comment [Automat ed code = 7893316291) message] The system which generated this result transmitted reference range : 0.0 - 10.0 /100 WBCs. The refer ence range was not u sed to interpret th is result as normal/abnormal . NRBC x10^3 (test code See_Comment [Auto mated = 7336858861) message] The s ystem which generated this result transmitted reference range : 10*3/?L. The reference range was not used to interpret this result as normal/abnormal . GRAN MAT (NEUT) % 71.9 % (test code = 770-8) IMM GRAN % (test code 0.30 % = 2259588655) LYMPH % (test code = 20.4 % 736-9) MONO % (test code = 4.0 % 5905-5) EOS % (test code = 2.8 % 713-8) BASO % (test code = 0.6 % 706-2) GRAN MAT x10^3(ANC) 6.49 10*3/uL 1.88-7.09 (test code = 5159862248) IMM GRAN x10^3 (test 0.03 10*3/uL 0.00-0.06 code = 3967302394) LYMPH x10^3 (test code 1.84 10*3/uL 1.32-3.29 = 731-0) MONO x10^3 (test code 0.36 10*3/uL 0.33-0.92 = 742-7) EOS x10^3 (test code = 0.25 10*3/uL 0.03-0.39 711-2) BASO x10^3 (test code 0.05 10*3/uL 0.01-0.07 = 704-7) Lab Interpretation Abnormal (test code = 66805-2) [facility] CenterMiscellaneous referral [id number] 15:05:00 Test Item Value Reference Interpretation Comments Range [place] test CAMILLUS 79 GMT name (test code = 2566) Mis test see comment Neuro-Onc Expan ded Panel [...] implicated inmeningioma tu morigenesis. Germline (i.e. inherited) FD8ibvgodwul ar e associated with neurofibromatos is type [...] uish between germline and so matic alterations.Con commercial relationship manager follow-up germline testin g on a blood specimen inconj unction with genetic addiction counselor ing if there is clinical eviden ceand/or family history suggest ing an underlying hereditary cancersyndrome. Currently, there are no known cl inically approved therapies thats pecifically target NF2 muta tions. REFERENCES1. cancer-beta.olson jonas.ac.uk/cosmic; Nucleic Acids R es. 2016;45(D1):D77 7-D783 (PMID 64817039)2. cbi [email or web address].org (Version 1.5.1) ; Cancer discov. 2012;2(5):401?4 (XHVW69700774); Sci Signal. 201 3;6(269):pl1 (PMID 74623889) 3. Mayank BERRIOS, Abdoulaye Gaitan ,Paulie goddard O.D., Tim Bush ( Eds). WHOClassificati on of Tumours of the Central Ner vous System (Revised 4thedi tion). IARC: Moody 2016.4. Brain T umor Pathol. Jan 2016;33(4):237? 47 (PMID 37029029)5. [email or web address]. Nature communications. May 18 2017;8:18725 (P MID 29624852)7. NPJ Genom Med. 2017;2 (PMID 40530933)8. Int J Cancer. Jan 16 2001;94(2):218? 21 (PMID 38202168)9. Act a Neuropathol. Oct 2016;134(1) :155?8 (PMID 96773857)10. Na senthile communications. Nov 05 2017;8(1):186 ( PMID 32126916)ADDITI ONAL INFORMATIONMicr oscopic examination was performed by a pathologist david dentify areas of tumor for enric hment by [...] GLI2, GLI3, GNA11, GN AQ, GNAS, GPS2, H3F3A,VHRJ5X0O, ULLS3W4H, IDH1, IDH2, JAK2, KDM 5A, KDM5C,KDM6A, KLF4, KMT2B (ML L4), KMT2C (MLL3), KMT2D ( MLL2),KRAS, LDB1, LRP1B, LZTR1, M AP2K1, MDM2, MLH1, MSH2,MSH3 , MSH6, MYB, MYBL1, MYC, MYC N, NF1, NF2,NOTCH1, NOT CH2, NRAS, PARP1, PDGFRA, VZT8T0M ,PIK3CA, PIK3R1, PIK3R2, POLE, P OLR2A, POT1, PPM1D,NDJCD8M, PTCH1, PTCH2, PTEN, PTPN11, P TPRD, QKI,RAF1, [...] AGBL4, ATG7, BCAN, BEND2,BIR C5, BRAF, BTBD1, Z19vbp11, C8orf 34, CLCN6, CLIP2,CXXC5, DD X31, DIP2C, EGFR, ELAVL3, ESR1, E TV6, EWSR1,SWK205R, HSH846J, FGFR1, FGFR3, FLI1, FO XR2, FXR1,FYCO1, GFI1, GFI1B, GL I1, GNAI1, JPX, ENWL1513,AQN809 643, MACF1, MAMLD1, MET, MK RN1, MMP16, MN1,MST1R, MYB, MYBL1, MYC, NAB2, NACC2, NA V1, NDRG1,NELFE, NFASC, NRF1, NT RK1, NTRK2, NTRK3, PCDHGA1, PCSK5, PDGFRA, PKD1, PRKCA, PT PRZ1, PVT1, QKI, RAF1,SUNI, RELA , ONX769, SEPT14, LHF30Y9, SLIT1, SRGAP3,DM6MSQ0, STAT6, TACC1, T ACC3, TFG, TPM3, UBE2J2, VCL,WHS C1, and YAP1.Mutation n omenclature is based on build GRCh37 (hg19). Fordetails abou t gene reference transcripts (Re fSeq accessionnumber s), specific targeted region s of each gene, andadditional i nformation about this test, seewww.[employer]Korbitec(Test ID NONCP). CLIN ICAL CORRELATIONSTes t results [...] based o n updated clinicalrelevan ce. See [email or web address](Test ID NONCP) for the most up to date list of genes i ncluded inthis test. Additiona l Information CLINICAL TRIALS Possible clinical trials of benef it for this patient can bef ound at the following sites :1) ClinicalTrials. gov:www.clinicalt rials.gov/ct2/s earch/advanced2) [facility]: www.[email or web address]/re search/clinical-t rials/3) [facility] [place]: <www.cancer.gov /clinicaltrials/s earch> REFERENCETRANSC RIPTSequence variant nomencl ature is based on the following R efSeqaccession number (build G RCh37 (hg19)):NF2 [id number]. Spec imen Tissue, Tumor Tissue ID [id number] Released By Katie Yu M.D. Laboratory NotesThis test was developed and its performance characteristics determined by [facility] in a manner consiste nt with CLIA requirements. T his test has not been cleared or approved by the U.S. Food and D rug Administration. Per[facility] [place] [address] BEHZAD (test CAMILLUS TEST ID: code = BEHZAD) NONCP - 79 GENE MUTATION ANALYSIS- RIGHT BRAIN [id number] (B9)DOS 08/19/2021 [facility] [id number] 15:05:00 Test Item Value Reference Interpretation Comments Range [place] test CAMILLUS 79 GMT name (test code = 2566) [place] test see comment Neuro-Onc Expan ded Panel [...] implicated inmeningioma tu morigenesis. Germline (i.e. inherited) OV4acbhozhac ar e associated with neurofibromatos is type [...] uish between germline and so matic alterations.Con commercial relationship manager follow-up germline testin g on a blood specimen inconj unction with genetic addiction counselor ing if there is clinical eviden ceand/or family history suggest ing an underlying hereditary cancersyndrome. Currently, there are no known cl inically approved therapies thats pecifically target NF2 muta tions. REFERENCES1. cancer-beta.olson jonas.ac.uk/cosmic; Nucleic Acids R es. 2016;45(D1):D77 7-D783 (PMID 85681599)2. cbi [email or web address].org (Version 1.5.1) ; Cancer discov. 2012;2(5):401?4 ([id number]); Sci Signal. 201 3;6(269):pl1 (PMID 78916652) 3. Mayank BERRIOS, Abdoulaye Gaitan ,Paulie goddard O.D., Karyn Bush. ( Eds). WHOClassificati on of Tumours of the Central Ner vous System (Revised 4thedi tion). IARC: Moody 2016.4. Brain T umor Pathol. Jan 2016;33(4):237? 47 (PMID 47614620)5. [email or web address]. Nature communications. May 18 2017;8:36749 (P MID 92159227)7. NPJ Genom Med. 2017;2 (PMID 18923215)8. Int J Cancer. Jan 16 2001;94(2):218? 21 (PMID 97654369)9. Act a Neuropathol. Oct 2016;134(1) :155?8 (PMID 30403893)10. Na senthile communications. Nov 05 2017;8(1):186 ( PMID 23057725)ADDITI ONAL INFORMATIONMicr oscopic examination was performed by a pathologist david jimbofy areas of tumor for enric hment by [...] GLI2, GLI3, GNA11, GN AQ, GNAS, GPS2, H3F3A,WCWW1U5O, NWRK9U2B, IDH1, IDH2, JAK2, KDM 5A, KDM5C,KDM6A, KLF4, KMT2B (ML L4), KMT2C (MLL3), KMT2D ( MLL2),KRAS, LDB1, LRP1B, LZTR1, M AP2K1, MDM2, MLH1, MSH2,MSH3 , MSH6, MYB, MYBL1, MYC, MYC N, NF1, NF2,NOTCH1, NOT CH2, NRAS, PARP1, PDGFRA, STU1E0W ,PIK3CA, PIK3R1, PIK3R2, POLE, P OLR2A, POT1, PPM1D,OQKQI1T, PTCH1, PTCH2, PTEN, PTPN11, P TPRD, QKI,RAF1, [...] AGBL4, ATG7, BCAN, BEND2,BIR C5, BRAF, BTBD1, T72htw41, C8orf 34, CLCN6, CLIP2,CXXC5, DD X31, DIP2C, EGFR, ELAVL3, ESR1, E TV6, EWSR1,LVM876J, UAD388F, FGFR1, FGFR3, FLI1, FO XR2, FXR1,FYCO1, GFI1, GFI1B, GL I1, GNAI1, JPX, YUBS2130,GST027 643, MACF1, MAMLD1, MET, MK RN1, MMP16, MN1,MST1R, MYB, MYBL1, MYC, NAB2, NACC2, NA V1, NDRG1,NELFE, NFASC, NRF1, NT RK1, NTRK2, NTRK3, PCDHGA1, PCSK5, PDGFRA, PKD1, PRKCA, PT PRZ1, PVT1, QKI, RAF1,SUNI, RELA , KGF169, SEPT14, EKS47R3, SLIT1, SRGAP3,CU3GTT7, STAT6, TACC1, T ACC3, TFG, TPM3, UBE2J2, VCL,WHS C1, and YAP1.Mutation n omenclature is based on build GRCh37 (hg19). Fordetails abou t gene reference transcripts (Re fSeq accessionnumber s), specific targeted region s of each gene, andadditional i nformation about this test, seewww.[employer] Monitoring [employer]Korbitec(Test ID NONCP). CLIN ICAL CORRELATIONSTes t results [...] based o n updated clinicalrelevan ce. See [email or web address](Test ID NONCP) for the most up to date list of genes i ncluded inthis test. Additiona l Information CLINICAL TRIALS Possible clinical trials of benef it for this patient can bef ound at the following sites :1) ClinicalTrials. gov:www.clinicalt rials.gov/ct2/s earch/advanced2) [facility]: www.[email or web address].[facility]/re search/clinical-t rials/3) [facility] [place]: <www.cancer.gov /clinicaltrials/s earch> REFERENCETRANSC RIPTSequence variant nomencl ature is based on the following R efSeqaccession number (build G RCh37 (hg19)):NF2 [id number]. Spec imen Tissue, Tumor Tissue ID [id number] Released By Katie Yu M.D. Laboratory NotesThis test was developed and its performance characteristics determined by [facility] in a manner consiste nt with CLIA requirements. T his test has not been cleared or approved by the U.S. Food and D rug Administration. Per[facility] Site[facility] [place] [address] BEHZAD (test CAMILLUS TEST ID: code = BEHZAD) NONCP - 79 GENE MUTATION ANALYSIS- RIGHT BRAIN [id number] (B9)DOS 08/19/2021 [facility] [id number] 15:05:00 Test Item Value Reference Interpretation Comments Range [place] test CAMILLUS 79 GMT name (test code = 2566) Mis test see comment Neuro-Onc Expan ded Panel [...] implicated inmeningioma tu morigenesis. Germline (i.e. inherited) HK1fagzahyuz ar e associated with neurofibromatos is type [...] uish between germline and so matic alterations.Con commercial relationship manager follow-up germline testin g on a blood specimen inconj unction with genetic addiction counselor ing if there is clinical eviden ceand/or family history suggest ing an underlying hereditary cancersyndrome. Currently, there are no known cl inically approved therapies thats pecifically target NF2 muta tions. REFERENCES1. cancer-beta.olson jonas.ac.uk/cosmic; Nucleic Acids R es. 2016;45(D1):D77 7-D783 (PMID 47026823)2. cbi oportal.org (Version 1.5.1) ; Cancer discov. 2012;2(5):401?4 ([id number]); Sci Signal. 201 3;6(269):pl1 (PMID 71348973) 3. Mayank BERRIOS, Abdoulaye Gaitan ,Paulie goddard O.D., Karyn Bush. ( Eds). WHOClassificati on of Tumours of the Central Ner vous System (Revised 4thedi tion). IARC: Moody 2016.4. Brain T umor Pathol. Jan 2016;33(4):237? 47 (PMID 12431892)5. [email or web address] Think [email or web address]. Nature communications. May 18 2017;8:50394 (P MID 26773007)7. NPJ Genom Med. 2017;2 (PMID 21635958)8. Int J Cancer. Jan 16 2001;94(2):218? 21 (PMID 51949368)9. Act a Neuropathol. Oct 2016;134(1) :155?8 (PMID 33196083)10. Na senthile communications. Nov 05 2017;8(1):186 ( PMID 28810211)ADDITI ONAL INFORMATIONMicr oscopic examination was performed by a pathologist david alecy areas of tumor for enric hment by [...] GLI2, GLI3, GNA11, GN AQ, GNAS, GPS2, H3F3A,DFPP2H9C, VQIZ9W1L, IDH1, IDH2, JAK2, KDM 5A, KDM5C,KDM6A, KLF4, KMT2B (ML L4), KMT2C (MLL3), KMT2D ( MLL2),KRAS, LDB1, LRP1B, LZTR1, M AP2K1, MDM2, MLH1, MSH2,MSH3 , MSH6, MYB, MYBL1, MYC, MYC N, NF1, NF2,NOTCH1, NOT CH2, NRAS, PARP1, PDGFRA, AON0J9G ,PIK3CA, PIK3R1, PIK3R2, POLE, P OLR2A, POT1, PPM1D,KKUIV7L, PTCH1, PTCH2, PTEN, PTPN11, P TPRD, QKI,RAF1, [...] AGBL4, ATG7, BCAN, BEND2,BIR C5, BRAF, BTBD1, D72lxe51, C8orf 34, CLCN6, CLIP2,CXXC5, DD X31, DIP2C, EGFR, ELAVL3, ESR1, E TV6, EWSR1,AHN822A, BFS604Y, FGFR1, FGFR3, FLI1, FO XR2, FXR1,FYCO1, GFI1, GFI1B, GL I1, GNAI1, JPX, RVOF3829,EXR073 643, MACF1, MAMLD1, MET, MK RN1, MMP16, MN1,MST1R, MYB, MYBL1, MYC, NAB2, NACC2, NA V1, NDRG1,NELFE, NFASC, NRF1, NT RK1, NTRK2, NTRK3, PCDHGA1, PCSK5, PDGFRA, PKD1, PRKCA, PT PRZ1, PVT1, QKI, RAF1,SUNI, RELA , ORX892, SEPT14, OVY99Y7, SLIT1, SRGAP3,QA7QFW0, STAT6, TACC1, T ACC3, TFG, TPM3, UBE2J2, VCL,WHS C1, and YAP1.Mutation n omenclature is based on build GRCh37 (hg19). Fordetails abou t gene reference transcripts (Re fSeq accessionnumber s), specific targeted region s of each gene, andadditional i nformation about this test, seewww.Blood Monitoring [employer]Korbitec(Test ID NONCP). CLIN ICAL CORRELATIONSTes t results [...] based o n updated clinicalrelevan ce. See [email or web address](Test ID NONCP) for the most up to date list of genes i ncluded inthis test. Additiona l Information CLINICAL TRIALS Possible clinical trials of benef it for this patient can bef ound at the following sites :1) ClinicalTrials. gov:www.clinicalt rials.gov/ct2/s earch/advanced2) [facility]: www.[email or web address].[facility]/re search/clinical-t rials/3) [facility] [place]: <www.cancer.gov /clinicaltrials/s earch> REFERENCETRANSC RIPTSequence variant nomencl ature is based on the following R efSeqaccession number (build G RCh37 (hg19)):NF2 [id number]. Spec imen Tissue, Tumor Tissue ID [id number] Released By Katie Yu M.D. Laboratory NotesThis test was developed and its performance characteristics determined by [facility] in a manner consiste nt with CLIA requirements. T his test has not been cleared or approved by the U.S. Food and D rug Administration. [facility] [place] [address] BEHZAD (test CAMILLUS TEST ID: code = BEHZAD) NONCP - 79 GENE MUTATION ANALYSIS- RIGHT BRAIN [id number] (B9)DOS 08/19/2021 [facility] [id number] 15:05:00 Test Item Value Reference Interpretation Comments Range [place] test CAMILLUS 79 GMT name (test code = 2566) [place] test see comment Neuro-Onc Expan ded Panel [...] implicated inmeningioma tu morigenesis. Germline (i.e. inherited) QC9rphxztdig ar e associated with neurofibromatos is type [...] uish between germline and so matic alterations.Con commercial relationship manager follow-up germline testin g on a blood specimen inconj unction with genetic addiction counselor ing if there is clinical eviden ceand/or family history suggest ing an underlying hereditary cancersyndrome. Currently, there are no known cl inically approved therapies thats pecifically target NF2 muta tions. REFERENCES1. cancer-beta.olson jonas.ac.uk/cosmic; Nucleic Acids R es. 2016;45(D1):D77 7-D783 (PMID 32956439)2. cbi oportal.org (Version 1.5.1) ; Cancer discov. 2012;2(5):401?4 ([id number]); Sci Signal. 201 3;6(269):pl1 (PMID 58419195) 3. Mayank BERRIOS, Abdoulaye Gaitan ,Paulie goddard O.D., Karyn Bush. ( Eds). WHOClassificati on of Tumours of the Central Ner vous System (Revised 4thedi tion). IARC: Moody 2016.4. Brain T umor Pathol. Jan 2016;33(4):237? 47 (PMID 76712074)5. [email or web address]. Nature communications. May 18 2017;8:89049 (P MID 84539154)7. NPJ Genom Med. 2017;2 (PMID 46952793)8. Int J Cancer. Jan 16 2001;94(2):218? 21 (PMID 35820417)9. Act a Neuropathol. Oct 2016;134(1) :155?8 (PMID 63672705)10. Na senthile communications. Nov 05 2016;8(1):186 ( PMID 45694257)ADDITI ONAL INFORMATIONMicr oscopic examination was performed by a pathologist david jimbofy areas of tumor for enric hment by [...] GLI2, GLI3, GNA11, GN AQ, GNAS, GPS2, H3F3A,BRPU7T5P, CLUL4P6I, IDH1, IDH2, JAK2, KDM 5A, KDM5C,KDM6A, KLF4, KMT2B (ML L4), KMT2C (MLL3), KMT2D ( MLL2),KRAS, LDB1, LRP1B, LZTR1, M AP2K1, MDM2, MLH1, MSH2,MSH3 , MSH6, MYB, MYBL1, MYC, MYC N, NF1, NF2,NOTCH1, NOT CH2, NRAS, PARP1, PDGFRA, SMC4B8N ,PIK3CA, PIK3R1, PIK3R2, POLE, P OLR2A, POT1, PPM1D,QKTCA4R, PTCH1, PTCH2, PTEN, PTPN11, P TPRD, QKI,RAF1, [...] AGBL4, ATG7, BCAN, BEND2,BIR C5, BRAF, BTBD1, G62pov24, C8orf 34, CLCN6, CLIP2,CXXC5, DD X31, DIP2C, EGFR, ELAVL3, ESR1, E TV6, EWSR1,OJP973Y, YUV372I, FGFR1, FGFR3, FLI1, FO XR2, FXR1,FYCO1, GFI1, GFI1B, GL I1, GNAI1, JPX, [id number],TXM308 643, MACF1, MAMLD1, MET, MK RN1, MMP16, MN1,MST1R, MYB, MYBL1, MYC, NAB2, NACC2, NA V1, NDRG1,NELFE, NFASC, NRF1, NT RK1, NTRK2, NTRK3, PCDHGA1, PCSK5, PDGFRA, PKD1, PRKCA, PT PRZ1, PVT1, QKI, RAF1,SUNI, RELA , ICI317, SEPT14, DKL63T1, SLIT1, SRGAP3,ZJ1GAD6, STAT6, TACC1, T ACC3, TFG, TPM3, UBE2J2, VCL,WHS C1, and YAP1.Mutation n omenclature is based on build GRCh37 (hg19). Fordetails abou t gene reference transcripts (Re fSeq accessionnumber s), specific targeted region s of each gene, andadditional i nformation about this test, seewww.[employer]Korb[employer]c(Test ID NONCP). CLIN ICAL CORRELATIONSTes t results [...] based o n updated clinicalrelevan ce. See [email or web address](Test ID NONCP) for the most up to date list of genes i ncluded inthis test. Additiona l Information CLINICAL TRIALS Possible clinical trials of benef it for this patient can bef ound at the following sites :1) ClinicalTrials. gov:www.clinicalt rials.gov/ct2/s earch/advanced2) [facility]: www.[email or web address]/re search/clinical-t rials/3) [facility]: <www.cancer.gov /clinicaltrials/s earch> REFERENCETRANSC RIPTSequence variant nomencl ature is based on the following R efSeqaccession number (build G RCh37 (hg19)):[id number]. Spec imen Tissue, Tumor Tissue ID [id number] Released By Katie Yu M.D. Laboratory NotesThis test was developed and its performance characteristics determined by doyle Polk in a manner consiste nt with CLIA requirements. T his test has not been cleared or approved by the U.S. Food and D rug Administration. Performing [facility] [place] [address] BEHZAD (test CAMILLUS TEST ID: code = BEHZAD) NONCP - 79 GENE MUTATION ANALYSIS- RIGHT BRAIN JOKKWOL-[id number] 757 (B9)DOS 08/19/2021 [facility] [id number] 22:24:00 Test Item Value Reference Range Interpretation Comments POC glucose (test code 125 mg/dL 65-99 H Opera tor Name: = 68507-8) John Ibarrae ID : [id number] able: [facility] Notified library media specialist Interpretation Abnormal (test code = 84651-6) [facility] [id number] 22:24:00 Test Item Value Reference Range Interpretation Comments POC glucose (test code 125 mg/dL 65-99 H Opera tor Name: = 00980-6) John Ibarrae ID : [id number] able: [facility] Notified library media specialist Interpretation Abnormal (test code = 96922-5) [facility] [id number] 22:24:00 Test Item Value Reference Range Interpretation Comments POC glucose (test code 125 mg/dL 65-99 H Opera tor Name: = 69771-6) John Holloway TanikaDevice ID : [id number] able: [facility] Notified library media specialist Interpretation Abnormal (test code = 71263-6) [facility] [id number] 22:24:00 Test Item Value Reference Range Interpretation Comments POC glucose (test code 125 mg/dL 65-99 H Opera tor Name: = 21119-9) Johnsophia Holloway BillyinaDevice ID : [id number] able: [facility] Notified library media specialist Interpretation Abnormal (test code = 79553-0) [place] [address] [id number] 14:47:26 Test Item Value Reference Range Interpretation Comments Ventricular rate (test code = 253) Atrial rate (test code = 255) ND interval (test code = 266) QRSD interval [...] of 24-AUG-2021 00:35,-No significant change was found- [place] [address] [id number] 14:47:26 Test Item Value Reference Range Interpretation Comments Ventricular rate (test code = 253) Atrial rate (test code = 255) ND interval (test code = 266) QRSD interval [...] of 24-AUG-2021 00:35,-No significant change was found- [place] [address] [id number] 14:47:26 Test Item Value Reference Range Interpretation Comments Ventricular rate (test code = 253) Atrial rate (test code = 255) ND interval (test code = 266) QRSD interval [...] of 24-AUG-2021 00:35,-No significant change was found- [place] [address] [id number] 14:47:26 Test Item Value Reference Range Interpretation Comments Ventricular rate (test 63 code = 253) Atrial rate (test code 63 = 255) ND interval (test code 172 = 266) QRSD interval (test 88 code = 260) QT interval (test code 404 = 264) QTC interval (test code 413 = 265) P axis 1 (test code = 36 267) QRS axis 1 (test code = 20 268) T wave axis (test code 21 = 270) EKG impression (test Normal sinus code = 273) rhythm-Normal ECG-In automated comparison with ECG of 24-AUG-2021 00:35,-No significant change was found- [facility] minute walk w/ pulse [id number] 16:54:41 Test Item Value Reference Range Interpretation [...] meters (test code = 40 m 7620) [facility] [id number] 16:54:41 Test Item Value Reference Range Interpretation [...] meters (test code = 40 m 7620) [facility] [id number] 16:54:41 Test Item Value Reference Range Interpretation [...] meters (test code = 40 m 7620) [facility] [id number] 16:54:41 Test Item Value Reference Range Interpretation Comments Six Minute Walk Distance (ft) (test 1017 Feet code = 7665) Six Minute Walk Distance (m) (test 310 m 292.46-570.46 code = 7614) Six Minute Walk Distance Predicted 431 (test code = 5645) Six Minute Walk [...] BP Systolic at Rest (test code = 128 mmHg 7622) BP Systolic after 6 minutes (test 157 mmHg code = 7662) BP Diastolic at Rest (test code = 60 mmHg 7623) BP Diastolic after 6 minutes (test 84 mmHg code = 7663) Telma Dyspnea Scale at Rest (test 0 code = 7619) Telma Dyspnea Scale after 6 minutes 2 (test code = 7661) Lowest SpO2 (test code = 7618) 93 % Highest Heart Rate (test code = 114 BPM 7616) Lap Count (test code = 7625) 7 Premature Stop (test code = 7621) 1 Number of Stops (test code = 7626) 2 Gait Speed (test code = 7627) 5.56 sec Lap Distance in meters (test code = 40 m 7620) [facility] [Presence] in Respiratory specimen by FELIPA with probe [id number] 23:48:49 Test Item Value Reference Range Interpretation Comments SARS-CoV-2 (COVID-19) RNA Not detected [Presence] in Respiratory specimen by FELIPA with probe detection (test code = 29926-3) Whether patient is employed in a Unknown healthcare setting (test code = 42045-7) Whether the patient has symptoms Unknown related to condition of interest (test code = 11101-8) Whether the patient was Unknown hospitalized for condition of interest (test code = 26917-5) Whether the patient was admitted Unknown to intensive care unit (ICU) for condition of interest (test code = 01565-7) Whether patient resides in a Unknown congregate care setting (test code = 67648-3) status (test code = Unknown 46883-3) Date and time of symptom onset Unknown (test code = 84092-7) [facility] [id number] 20:53:10 Test Item Value Reference Range Interpretation Comments Case number (test code = [id number]) Surgical pathology See link below for report (test code = PDF Lab Report 2255) Result status (test code This is Final Report = [id number]) for [id number] [facility] [id number] 20:53:10 Test Item Value Reference Range Interpretation Comments Case number (test code = [id number]) Surgical pathology See link below for report (test code = PDF Lab Report 2255) Result status (test code This is Final Report = [id number]) for [id number] [facility] [id number] 20:53:10 Test Item Value Reference Range Interpretation Comments Case number (test code = [id number]) Surgical pathology See link below for report (test code = PDF Lab Report 2255) Result status (test code This is Final Report = [id number]) for [id number] [id number] 20:53:10 Test Item Value Reference Range Interpretation Comments Case number (test code = [id number]) Surgical pathology See link below for report (test code = PDF Lab Report 2255) Result status (test code This is Final Report = [id number]) for [id number] [facility] (COVID-19) RNA [Presence] in Respiratory specimen by FELIPA with probe [id number] 20:28:44 Test Item Value Reference Range Interpretation Comments SARS-CoV-2 (COVID-19) RNA Not detected [Presence] in Respiratory specimen by FELIPA with probe detection (test code = 13992-6) Whether patient is employed in a Unknown healthcare setting (test code = 87634-6) Whether the patient has symptoms Unknown related to condition of interest (test code = 12336-6) Whether the patient was Unknown hospitalized for condition of interest (test code = 88643-8) Whether the patient was admitted Unknown to intensive care unit (ICU) for condition of interest (test code = 15455-3) Whether patient resides in a Unknown congregate care setting (test code = 15136-9) status (test code = Unknown 42244-7) Date and time of symptom onset Unknown (test code = 54260-5) [facility] [id number] 07:40:00 Test Item Value Reference Range Interpretation Comments Urine culture No growth Specimen isolate (test after 24 [facility]Spe [facility] code = 57763-1) hours Source: Urin eSpecimen Site: Catheteri zed [facility] [id number] 07:40:00 Test Item Value Reference Range Interpretation Comments Urine culture No growth Specimen isolate (test after 24 [facility] code = 76924-0) hours Source: [facility]Specimen [facility] [id number] 07:40:00 Test Item Value Reference Range Interpretation Comments Urine culture No growth Specimen isolate (test after 24 [facility] code = 14125-8) hours Source: Urin eSpecimen Site: [facility] [id number] 07:40:00 Test Item Value Reference Range Interpretation Comments Urine culture No growth Specimen isolate (test after 24 [facility] code = 94348-1) hours Source: Urin eSpecimen [facility] [Presence] in Respiratory specimen by FELIPA with probe [id number] 20:09:14 Test Item Value Reference Range Interpretation Comments SARS-CoV-2 (COVID-19) RNA Not detected [Presence] in Respiratory specimen by FELIPA with probe detection (test code = 13414-9) Whether patient is employed in a Unknown healthcare setting (test code = 60959-9) Whether the patient has symptoms Unknown related to condition of interest (test code = 35056-1) Whether the patient was Unknown hospitalized for condition of interest (test code = 52785-6) Whether the patient was admitted Unknown to intensive care unit (ICU) for condition of interest (test code = 95257-6) Whether patient resides in a Unknown congregate care setting (test code = 90628-3) status (test code = Unknown 35653-2) Date and time of symptom onset Unknown (test code = 66067-5) [facility] , [id number] 02:52:00 Test Item Value Reference Range Interpretation Comments test urine, POC (test Negative code = 2603142) Internal QC (test code = 257) QC acceptable [facility] , [id number] 02:52:00 Test Item Value Reference Range Interpretation Comments test urine, POC (test Negative code = 5891268) Internal QC (test code = 257) QC acceptable [facility] , [id number] 02:52:00 Test Item Value Reference Range Interpretation Comments test urine, POC (test Negative code = 0799495) Internal QC (test code = 257) QC acceptable [facility] , [id number] 02:52:00 Test Item Value Reference Range Interpretation Comments test urine, POC (test Negative code = 6795046) Internal QC (test code = 257) QC acceptable [facility] ([facility]OVID-19) RNA [Presence] in Respiratory specimen by FELIPA with probe [id number] 00:32:04 Test Item Value Reference Range Interpretation Comments SARS-CoV-2 (COVID-19) RNA Not detected [Presence] in Respiratory specimen by FELIPA with probe detection (test code = 09691-4) Whether patient is employed in a Unknown healthcare setting (test code = 46097-6) Whether the patient has symptoms Unknown related to condition of interest (test code = 42376-3) Whether the patient was Unknown hospitalized for condition of interest (test code = 26781-5) Whether the patient was admitted Unknown to intensive care unit (ICU) for condition of interest (test code = 90689-1) Whether patient resides in a Unknown congregate care setting (test code = 68220-1) status (test code = Unknown 19733-6) Date and time of symptom onset Unknown (test code = 69850-2) [facility], [id number] 09:03:00 FINAL REPORT PROCEDURE: THYROID SCAN AND UPTAKES CPT CODE: 02034 INDICATION: Hyperthyroidism PROTOCOL: 0.238 mCi of I-123 [...] It has a plump appearance with the leftlobe being greater in size in the right. Otherwise the gland has a normal size, shape, and location. IMPRESSION: 1. Normal thyroid scan.2. Borderline elevated overall iodide uptakes. Signed: [place] [place] MDRep[place] Verified Date/Time: 11/09/2019 09:03:02 Reading Location: [address] [address] Reading Room "
[2022-09-17] MEDS ORDERED: DIPHENHYDRAMINE 50 MG/ML VIAL ONE (06:05)
[2022-09-17] MEDS ORDERED: METOCLOPRAMIDE 10 MG/2mL INJ ONE (06:05)
[2022-09-17] MEDS ORDERED: MORPHINE 4 MG/ML SYR ONE (06:06)
[2022-09-17] MEDS ORDERED: KETOROLAC 30 MG/ML INJ ONE (06:06)
[2022-09-17] MEDS ORDERED: NA CHLORIDE 0.9% 1,000 ML ONE (06:06)
--- NOTE | 2022-09-17 07:37 | RAD REPORT ---
EXAM DESCRIPTION: CT - Head Brain Wo Cont - 09/17/2022 7:30 am CLINICAL HISTORY: acute headache, history of tumor COMPARISON: Head Brain Wo Cont dated 04/21/2022; Head Brain W Cont dated 08/05/2021 TECHNIQUE: All CT scans are performed using dose optimization technique as appropriate and may inclu de automated exposure control or mA/KV adjustment according to patient size. FINDINGS: No intracranial hemorrhage, hydrocephalus or extra-axial fluid collection.No areas of brai n edema or evidence of midline shift. Right parietal approach COMPUTER SUPPORT ANALYST shunt. The tip is in the body of the right lateral ventricle. Encephalomalacia in the lower portion of the right and left cerebellar shayy spheres. The paranasal sinuses and mastoids are clear. Right parietal craniotomy. Suboccipital craniotomy. IMPRESSION: No acute intracranial abnormality. COMPUTER SUPPORT ANALYST shunt in similar position. No hydrocephalus.
--- NOTE | 2022-09-17 08:23 | EDPHYS ---
Physician Documentation [facility] Name: Skye Song Age: 47 yrs Sex: Female : 1975 Arrival Date: 09/17/2022 Time: 05:41 Bed 18 Private MD: ED Physician Mick Connors HPI: 09/17 05:44 This 47 yrs old Female presents to ER via Unassigned with complaints of sp4 headache . 05:52 This is a 47-year-old female who arrives with EMS for moderate to severe headache that sp4 has intensified in the last 2 hours. Patient states she had headache on and off for the past 1 week, she has had experienced vomiting as well. Sumatriptan at home did not alleviate headache, patient has history of [facility] [place] [facility] [place] Alonso Roca. Patient states that brain tumor was removed in August 2021 patient also has history of hydrocephalus and COUNTERINTELLIGENCE SPECIALIST shunt. COUNTERINTELLIGENCE SPECIALIST shunt is on the right side. Patient has called her neurosurgeon today to report headache and she was advised to go to the emergency room to obtain CT head. . Historical: - Allergies: 05:51 Iodine; ha1 05:51 Naproxen; ha1 05:51 tramadol; ha1 - Home Meds: 05:51 diltiazem Oral [Active]; Zoloft 100 mg Oral tab 1 tab once daily [Active]; propranolol ha1 20 mg Oral tab [Active]; - PMHx: 05:51 Anxiety; BRAIN TUMOR; graves disease; Hydrocephalus; Migraines; Seizures; ha1 - PSHx: 05:51 Appendectomy; Brain sx; Cholecystectomy; eye sx; COUNTERINTELLIGENCE SPECIALIST shunt; ha1 - Immunization history:: Adult Immunizations unknown. - Social history:: Smoking status: unknown. - Family history:: not pertinent. ROS: 05:52 Constitutional: Negative for fever, chills, and weight loss, positive for headache, sp4 positive for vomiting. Eyes: Negative for injury, pain, redness, and discharge, ENT: Negative for injury, pain, and discharge, Neck: Negative for injury, pain, and swelling, Cardiovascular: Negative for chest pain, palpitations, and edema, Respiratory: Negative for shortness of breath, cough, wheezing, and pleuritic chest pain, Abdomen/GI: Negative for abdominal pain, diarrhea, and constipation, positive for nausea vomiting associated with headache Back: Negative for injury and pain, : Negative for injury, bleeding, discharge, and swelling, MS/Extremity: Negative for injury and deformity, Skin: Negative for injury, rash, and discoloration, Neuro: Negative for weakness, numbness, tingling, and seizure, positive for headache Psych: Negative for depression, anxiety, Allergy/Immunology: Negative for hives, rash, and allergies Endocrine: Negative for neck swelling, polydipsia, polyuria, polyphagia, and weight changes Hematologic/Lymphatic: Negative for swollen nodes, abnormal bleeding, and unusual bruising Exam: 05:52 Constitutional: This is a well developed, well nourished patient who is awake, alert, sp4 and in no acute distress. Overweight female Head/Face: Normocephalic, atraumatic. Eyes: Pupils equal round and reactive to light, extra-ocular motions intact. Lids and lashes normal. Conjunctiva and sclera are not injected. Cornea within normal limits. Periorbital areas with no swelling, redness, or edema. ENT: Nares patent. No nasal discharge, no septal abnormalities noted. Tympanic membranes are normal and external auditory canals are clear. Oropharynx with no redness, swelling, or masses, exudates, or evidence of obstruction, uvula midline. Mucous membranes moist. Neck: Trachea midline, no thyromegaly or masses palpated, and no cervical lymphadenopathy. Supple, full range of motion without nuchal rigidity, or vertebral point tenderness. Chest/axilla: Normal chest wall appearance and motion. Nontender with no deformity. No lesions are appreciated. Cardiovascular: Regular rate and rhythm with a normal S1 and S2. No gallops, murmurs, or rubs. Normal PMI, no JVD. No pulse deficits. Respiratory: Lungs have equal breath sounds bilaterally, clear to auscultation and percussion. No rales, rhonchi or wheezes noted. No increased work of breathing, no retractions or nasal flaring. Abdomen/GI: Soft, non-tender, with normal bowel sounds. No distension or tympany. No guarding or rebound. No evidence of tenderness throughout. Back: No spinal tenderness. No costovertebral tenderness. Skin: Warm, dry with normal turgor. Normal color with no rashes, no lesions, and no evidence of cellulitis. MS/ Extremity: Pulses equal, no cyanosis. Neurovascular intact. Full, normal range of motion. Neuro: Awake and alert, GCS 15, oriented to person, place, time, and situation. Cranial nerves II-XII grossly intact. Motor strength 5/5 in all extremities. Sensory grossly intact. Psych: Awake, alert, with orientation to person, place and time. Behavior, mood, and affect are within normal limits Vital Signs: 05:43 BP 127 / 71; Pulse 72; Resp 18 S; Temp 98.1; Pulse Ox 97% on R/A; Weight 129.27 kg; ha1 06:50 BP 140 / 61; Pulse 76; Resp 18 S; Pulse Ox 94% on R/A; ha1 08:53 BP 116 / 78; Pulse 74; Resp 17; Pulse Ox 98% ; os MDM: 05:52 Differential Diagnosis altered mental status. Data reviewed: vital signs, nurses notes, sp4 EMS record, old medical records, lab test result(s), Serum test, radiologic studies, CT scan. 06:07 Patient medically screened. sp4 07:27 Transition of care: After a detail discussion of the patient's case, care is sp4 transferred to Mick Connors MD. ED course: Patient CT was ordered secondary to her prior history of craniotomy and benign brain tumor resection also history of COUNTERINTELLIGENCE SPECIALIST shunt.. Since she is not done at this time we will transfer care to Dr. Adams to follow-up CT report. 08:21 ED course: CT head to my read without any hydrocephalus, patient feeling significantly jr11 better and would like to go home. We did put a page out to her neurologist, have not heard.Dr Herrera.. 08:28 ED course: Spok with Dr Herrera, agreed with OP follow up . jr11 09/17 05:52 Order name: Test, Serum; Complete Time: 07:47 sp4 09/17 05:52 Order name: CT Head Brain wo Cont; Complete Time: 07:47 sp4 09/17 05:52 Order name: Saline Lock; Complete Time: 07:05 sp4 Administered Medications: 06:50 Drug: NS 0.9% IV 1000 ml Route: IV; Rate: 1 bolus; Site: right forearm; ha1 06:50 Drug: morphine IVP or IV 4 mg Route: IVP; Infused Over: 4 mins; Site: right forearm; ha1 06:53 Drug: diphenhydrAMINE IVP 50 mg Route: IVP; Site: right forearm; ha1 06:58 Drug: metoCLOPramide IVP 10 mg Route: IVP; Site: right forearm; ha1 07:03 Drug: Ketorolac IVP 30 mg Route: IVP; Site: right forearm; ha1 Disposition Summary: 09/17/22 08:23 Discharge Ordered Location: Home [facility] Condition: Stable jr11 Diagnosis - Headache jr11 Followup: jr11 - With: Private Physician - When: 1 - 2 days - Reason: If symptoms return Discharge Instructions: - Discharge Summary Sheet jr11 - General Headache Without Cause jr Forms: - Medication Reconciliation Form jr11 - Thank You Letter jr11 - Antibiotic Education jr11 - Prescription Opioid Use jr11 Signatures: Dispatcher [employer] EDMick Vitale MD MD jr11 Narcisa Veloz RN RN ha1 Aniket Mcleod MD MD sp4 Karyn Shen RN RN os
--- NOTE | 2022-09-17 08:23 | ER ---
Nurse's Notes [facility] Name: Skye Song Age: 47 yrs Sex: Female : 1975 Arrival Date: 09/17/2022 Time: 05:41 Bed 18 Private MD: Diagnosis: Headache Presentation: 09/17 05:43 Chief complaint: EMS states: 47 year old female reports headache with burning sensation ha1 and vomiting. pt. reports having history of brain tumors. she says that she has two tumors on the left side of her brain. reports having a shunt to drain her cerebral fluids. Coronavirus screen: Vaccine status:. Ebola Screen: No symptoms or risks identified at this time. Initial Sepsis Screen: Does the patient meet any 2 criteria? No. Patient's initial sepsis screen is negative. Does the patient have a suspected source of infection? No. Patient's initial sepsis screen is negative. Risk Assessment: Do you want to hurt yourself or someone else? Patient reports no desire to harm self or others. Onset of symptoms was September 17, 2022. 05:43 Method Of Arrival: EMS: [facility] ha1 05:43 Acuity: NIDA 3 ha1 Triage Assessment: 05:42 General: Appears uncomfortable, Behavior is calm, cooperative. Pain: Complains of pain ha1 in head Pain does not radiate. Pain currently is 10 out of 10 on a pain scale. Neuro: Level of Consciousness is awake, alert, obeys commands, Oriented to person, place, time, situation. Neuro: Reports blurred vision headache in entire photophobia. Cardiovascular: Capillary refill < 3 seconds Patient's skin is warm and dry. Respiratory: Airway is patent Respiratory effort is even, unlabored, Respiratory pattern is regular, symmetrical. GI: Abdomen is non-distended, obese. GI: Reports vomiting. : No signs and/or symptoms were reported regarding the genitourinary system. Musculoskeletal: Circulation, motion, and sensation intact. Historical: - Allergies: 05:51 Iodine; ha1 05:51 Naproxen; ha1 05:51 tramadol; ha1 - Home Meds: 05:51 diltiazem Oral [Active]; Zoloft 100 mg Oral tab 1 tab once daily [Active]; propranolol ha1 20 mg Oral tab [Active]; - PMHx: 05:51 Anxiety; BRAIN TUMOR; graves disease; Hydrocephalus; Migraines; Seizures; ha1 - PSHx: 05:51 Appendectomy; Brain sx; Cholecystectomy; eye sx; TIN ASSORTER shunt; ha1 - Immunization history:: Adult Immunizations unknown. - Social history:: Smoking status: unknown. - Family history:: not pertinent. Screenin:56 Abuse screen: Denies threats or abuse. Denies injuries from another. Nutritional ha1 screening: No deficits noted. Tuberculosis screening: No symptoms or risk factors identified. 08:53 [facility] ED Fall Risk Assessment (Adult) History of falling in the last 3 months, os including since admission No falls in past 3 months (0 pts) Confusion or Disorientation No (0 pts) Intoxicated or Sedated No (0 pts) Impaired Gait No (0 pts) Mobility Assist Device Used No (0 pt) Altered Elimination No (0 pt) Score/Fall Risk Level 0 - 2 = Low Risk. Assessment: 05:42 Reassessment: see triage assessment. ha1 06:50 Reassessment: Patient and/or family updated on plan of care and expected duration. Pain ha1 level reassessed. Patient is alert, oriented x 3, equal unlabored respirations, skin warm/dry/pink. Vital Signs: 05:43 BP 127 / 71; Pulse 72; Resp 18 S; Temp 98.1; Pulse Ox 97% on R/A; Weight 129.27 kg; ha1 06:50 BP 140 / 61; Pulse 76; Resp 18 S; Pulse Ox 94% on R/A; ha1 08:53 BP 116 / 78; Pulse 74; Resp 17; Pulse Ox 98% ; os ED Course: 05:42 Patient arrived in ED. ha1 05:42 Patient has correct armband on for positive identification. Bed in low position. Call ha1 light in reach. Side rails up X 1. 05:43 Aniket Mcleod MD is Attending Physician. sp4 05:43 Narcisa Veloz RN is Primary Nurse. ha1 05:50 Missed attempt(s): 22 gauge in right hand. ha1 05:51 Triage completed. ha1 06:05 Missed attempt(s): 22 gauge in right wrist. ha1 06:08 Radiology exam delayed due to. eh4 06:45 Inserted saline lock: 20 gauge in right forearm, using aseptic technique. Blood ha1 collected. IV inserted by CALEB Camejo. 07:06 Test, Serum Sent. ha1 07:30 Attending Physician role handed off by Aniket Mcleod MD [email or web address] 07:30 Mick Connors MD is Attending Physician. [email or web address] 07:31 CT Head Brain wo Cont In Process Unspecified. EDMS 08:09 called and left message with Yessenia at the [facility]/ She will eb page Dr. Herrera patient neurosurgeon. 08:[address] Herrera with Dr Connors for patient consultation. eb 08:53 No provider procedures requiring assistance completed. os 08:53 IV discontinued. os Administered Medications: 06:50 Drug: NS 0.9% IV 1000 ml Route: IV; Rate: 1 bolus; Site: right forearm; ha1 06:50 Drug: morphine IVP or IV 4 mg Route: IVP; Infused Over: 4 mins; Site: right forearm; ha1 06:53 Drug: diphenhydrAMINE IVP 50 mg Route: IVP; Site: right forearm; ha1 06:58 Drug: metoCLOPramide IVP 10 mg Route: IVP; Site: right forearm; ha1 07:03 Drug: Ketorolac IVP 30 mg Route: IVP; Site: right forearm; ha1 Outcome: 08:23 Discharge ordered by . [email or web address] 08:53 Discharged to home ambulatory. os 08:53 Condition: stable 08:53 Discharge instructions given to patient. 08:54 Patient left the ED. os Signatures: Dispatcher [employer] EDNJ Chrissie Tovar Mick Connors MD MD [email or web address] Narcisa Veloz RN RN ha1 [facility] Aniket Mcleod MD MD sp4 Karyn Shen RN RN os
[2022-09-17 09:04] VITALS: TEMP 98.1
[2022-09-17 09:16] VITALS: BP 116/78; O2SAT 98
== END 2022-09-17 08:54 | disposition home or self-care (01) ==
LOC: ER 05:41
DX: R51.9 Headache, unspecified (principal); Z98.2 Presence of cerebrospinal fluid drainage device; Z88.5 Allergy status to narcotic agent; Z91.048 Other nonmedicinal substance allergy status
CPT/HCPCS: 36415; 84703; 70450; 96375; 96374; 99284; J2765; J1200; J7030

== ENCOUNTER 2022-11-02 02:34 | Emergency (ER) | payer OTHER ==
--- OUTSIDE RECORDS SUMMARY | 2022-11-02 02:50 | XMS REPORT | Continuity of Care Document ---
:[address] [facility] t Address [address] [facility] [address] [place] [address] Care Team Providers Name Role Phone MANJINDER CHACON Primary Care Physician Unavailable Manjinder Chacon Attending Clinician Unavailable MAGUI RAMIREZ Attending Clinician Unavailable Sharon HAHN, Heaven Buckner Attending Clinician Joelle AGER OPERATOR-[place] Attending Clinician DINO ROSARIO Attending Clinician Unavailable NICOLAS AGUAYO Attending Clinician Unavailable NICOLAS AGUAYO Attending Clinician Unavailable EDUARDO ESCALANTE Attending Clinician Unavailable EDUARDO ESCALANTE Attending Clinician Unavailable Carol ELLIS, Shila Attending Clinician Unavailable Edyta HAHN, Yogesh Leon Attending Clinician Khadra HAHN, Lilian Kathleen Attending Clinician GULSHAN COX Attending Clinician Unavailable Gulshan Cox MD Attending Clinician Doctor Unassigned, [place] Attending Clinician Unavailable ANGELA ZUNIGA Attending Clinician Unavailable [place]tz STUDIO PRODUCER, Angela L Attending Clinician Avery HAHN, Dino Attending Clinician YUMIKO MARRERO Attending Clinician Unavailable Nahun Ortez MD Attending Clinician Ju Frey MD, Kathy Attending Clinician Yumiko Marrero MD Attending Clinician Salena HAHN, Imani K.H. Attending Clinician [facility], [facility] Main Attending Clinician Unavailable IMANI MARTINO K.H. Attending Clinician Unavailable Katherine AGER OPERATOR, Kathryn Velasquez Attending Clinician [phone] Gopi ELLIS, Norman Mckay Attending Clinician Unavailable Debbie HAHN, Acacia Attending Clinician Kelvin HAHN, Jole Mendez Attending Clinician [phone] Binu HAHN, Fredi Attending Clinician Lauren Francois MD Attending Clinician Richelle Lowry MD Attending Clinician Alex Dillon MD Attending Clinician Mendez ELLIS, Rupinder Attending Clinician Unavailable FANNIE BRAMBILA Attending Clinician Unavailable Fannie Leonard S Attending Clinician [facility], [facility] Nurse Attending Clinician Unavailable Angelina Quinones MD Attending Clinician ANGELINA QUINONES Attending Clinician Unavailable , Adc Echo Room 1 - Attending Clinician Unavailable Ismael Meyers Attending Clinician Denys Vázquez MD Attending Clinician LILIAN SAEED Admitting Clinician Unavailable GULSHAN COX Admitting Clinician Unavailable Gulshan Cox MD Admitting Clinician KATHY CHEUNG Admitting Clinician Unavailable Ju Frey MD, Kathy Admitting Clinician IMANI MARTINO K.HDonya Admitting Clinician Unavailable ACACIA LEWIS Admitting Clinician Unavailable FREDI SCHMID Admitting Clinician Unavailable FANNIE BRAMBILA Admitting Clinician Unavailable Payers Payer Name Policy Type Policy Number Effective Date Expiration Date Kenneth hunter [facility] STAR [id number] 2019 PLUS 00:00:00 [place] [id number] 2019 Common HEALTHCARE 00:00:00 [facility] STAR [id number] 2019 PLAN 00:00:00 Problems Condition Condition Condition Status Onset Resolution Last Treating Co mments Source Name Details Category Date Date Treatment Clinician Date SVT SVT Disease Active Overview: Univer s (supravent (supravent 3-10 Formattin ity of ricular ricular 00:00: g of this [place] tachycardi tachycardi 00 note Me dical a) a) might be Branch different from the original. Added automatic ally from request for surgery [id number] Chest Chest Disease Active Univers pain, pain, [...] mass Brain mass Disease Active M ethodi - st 00:00: Hospita 00 l Immune to Immune to Disease Active Uni vers varicella varicella 6-29 ity of 00:00: [place] [facility] BMI BMI Disease Active Univers 45.0-49.9, 45.0-49.9, 6-28 it y of adult adult 00:00: [place] [address] Medical Branch Excessive Excessive Disease Active Uni vers or or 6-21 ity of frequent frequent 00:00: [place] menstruati menstruati 00 Me dical on on Branch Knee pain, Knee pain, Disease Active U nivers left left 4-05 ity of 00:00: [place] [facility] Knee pain, Knee pain, Disease Active U nivers left left 4-05 ity of 00:00: 00 Medical Branch Subclinica Subclinica Problem C ommon l l Spirit hyperthyro hyperthyro - CHI idism idism [facility] [id number] Allergic Problem Commo n rhinitis, Spirit unspecifie - CHI d [facility] y, Medical unspecifie Center d trigger [id number] Morbid Problem Commo n 9104 (severe) Spirit obesity - CHI due to [facility] [id number] Hyperthyro Problem Com mon idism Spirit - CHI [facility] Laboratory Abnormal Problem Com mon test laboratory Spirit result test - [facility]I abnormal [facility] Graves Graves Problem Common disease disease Spirit - [facility] 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 - CHI placement [facility] [id number] Mixed Problem Common hyperlipid Spirit emia [facility] 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 [facility] [id number] Migraine Problem Comm on without Spirit aura and - CHI without [facility] migrainosu Medica l s, not Center intractabl e [id number] Abnormal Problem Comm on mammogram Spirit of left - CHI breast [facility] [id number] Essential Problem Comm on hypertensi Spirit on CHI [facility] [id number] MARYBETH Problem Common (generaliz Spirit ed anxiety - CHI disorder) [facility] [id number] Insomnia, Problem Com mon unspecifie Spirit d type - CHI [facility] Allergies, Adverse Reactions, Alerts Allergy Allergy Status Severity Reaction(s) Onset Inactive Treating Comm ents Source Name Type Date Date Clinician PECAN DRUG Active High Anaphylaxis Unive rs NUT INGREDI - ity of 00:00: [place] 00 Medical Branch [...] 00 Medical Branch Iodine Propensi Active Rash 2022-0 Univers ty to 08-10 ity of adverse 00:00: [place] reaction 00 Medical s Branch Iodine Propensi Active Rash 2021- Methodi ty to 08-10 st adverse 00:00: Hospita reaction 00 l s to drug NAPROXEN DRUG Active Hives 2021- Univers INGREDI - ity of 00:00: [place] 00 Medical Branch Naproxen Propensi Active Hives Univer s ty to 08-08 ity of adverse 00:00: [place] reaction 00 Medical s Branch Naproxen Propensi Active Hives Method i ty to 08-08 st adverse 00:00: Hospita reaction 00 l s to drug Tramadol Propensi Active Hives Method i ty to 08-08 st adverse 00:00: Hospita reaction 00 l s to drug Tramadol Propensi Active Hallucinatio Univers ty to ns 8-14 ity of adverse 00:00: [place] reaction 00 [facility] s Branch TRAMADOL DRUG Active Hallucinates Un vale INGREDI 8-14 ity of 00:00: [place] 00 [facility] Social History Social Habit Start Date Stop Date Quantity Comments Source History of Tobacco Common [facility] - Use [facility] Gender identity [facility] Sexual orientation [facility] History of Social 2022-08-04 2022-08-[address] function 00:00:00 00:00:00 Hospital Exposure to 2022-06-22 2022-07-02 Not sure [facility] SARS-CoV-2 (event) 00:00:00 10:15:00 [facility] Education 2022-05-24 2022-05-24 21 University of 00:00:00 00:00:00 [facility] Alcohol intake 2021-08-26 2021-08-26 Ex-drinker [facility] 00:00:00 00:00:00 (finding) Hospital Tobacco use and 2021-08-08 2021-08-08 Smokeless [facility] exposure 00:00:00 00:00:00 tobacco non-user Hospital Sex Assigned At [birth year] [facility] [place] [facility] 00:00:00 00:[facility]:00 [facility] Center Smoking Status Start Date Stop Date Source Never smoked tobacco [facility] Medications Ordered Filled Start Stop Current Ordering Indication Dosage Frequency Signature Comments Components Source Medication Medication Date Date Medication? Clinician (SIG) Name Name LORAZepam 2023-0 Yes 1mg Q6H Take 1 Method i (Ativan) 1 6-15 tablet (1 st MG tablet 00:00: mg total) Hos florencio 00 by mouth l every 6 (six) hours as needed for anxiety. LORAZepam 2023-0 Yes 1mg Q6H Take 1 Method i (Ativan) 1 6-15 tablet (1 st MG tablet 00:00: mg total) Hos florencio 00 by mouth l every 6 (six) hours as needed for anxiety. fexofenadin 2023-0 Yes 60mg Q.5D Take 1 Meth shay e (Eulalia 6-14 tablet (60 st Allergy) 60 00:00: mg total) H ospita MG tablet 00 by mouth 2 l (two) times a day. methylPREDN 2023-0 Yes 32mg Q.5D Take 1 Meth shay ISolone 6-14 tablet (32 st (MEDROL) 32 00:00: mg total) H ospita MG tablet 00 by mouth 2 l (two) times a day. fexofenadin 2023-0 Yes 60mg Q.5D Take 1 Meth shay e (Eulalia 6-14 tablet (60 st Allergy) 60 00:00: mg total) H ospita MG tablet 00 by mouth 2 l (two) times a day. methylPREDN 2023-0 Yes 32mg Q.5D Take 1 Meth shay ISolone 6-14 tablet (32 st (MEDROL) 32 00:00: mg total) H ospita MG tablet 00 by mouth 2 l (two) times a day. famotidine 2023-0 2024- Yes 20mg Q.5D Take 1 Meth shay (Pepcid) 20 6-14 06-14 tablet (20 s t MG tablet 00:00: 04:59 mg total) Ho spita 00 :00 by mouth 2 l (two) times a day. famotidine 2023-0 2024- Yes 20mg Q.5D Take 1 Meth shay (Pepcid) 20 6-14 06-14 tablet (20 s t MG tablet 00:00: 04:59 mg total) Ho spita 00 :00 by mouth 2 l (two) times a day. hydroCHLORO 2023-0 Yes 25mg QD Take 1 Meth shay thiazide 5-04 tablet (25 st (HYDRODIURI 18:30: mg total) H ospita L) 25 MG 39 by mouth l tablet daily. hydroCHLORO 2023-0 Yes 25mg QD Take 1 Meth shay thiazide 5-04 tablet (25 st (HYDRODIURI 18:30: mg total) H ospita L) 25 MG 39 by mouth l tablet daily. levETIRAcet 2022-0 2023- No 500mg [id number] Take 1 Methodi am (KEPPRA) -07 08- [id number] tablet st 500 MG 00:00: 04:59 3D (500 mg Hospita tablet 00 :00 total) by l mouth 3 (three) times a day for 30 days. sertraline 2022-0 2022- No 100mg QD Take 2 Met hodi (ZOLOFT) 50 5-07 08-[address] MG tablet 00:00: 04:59 (100 mg Hosp isael 00 :00 total) by l mouth daily for 30 days. levETIRAcet 2022-0 2022- No 500mg Q.[id number] Take 1 Methodi am (KEPPRA) -07 08- [id number] tablet st 500 MG 00:00: 04:59 3D (500 mg Hospita tablet 00 :00 total) by l mouth 3 (three) times a day for 30 days. sertraline 3-0 3- No 100mg QD Take 2 Met hodi (ZOLOFT) 50 5- 06-[address] MG tablet 00:00: 04:59 (100 mg Hosp isael 00 :00 total) by l mouth daily for 30 days. sumatriptan 2022-0 Yes Take by Uni vers succ/naprox 4-20 mouth as ity of en sod 08:29: needed. [place] (SUMATRIPTA 03 Medical N-NAPROXEN Branch ORAL) sertraline 2022-0 Yes Take by Univ ers HCl (ZOLOFT 4-20 mouth. ity of ORAL) 08:29: [address] Branch sumatriptan 2023-0 Yes Take by Uni vers succ/naprox 4-20 mouth as ity of en sod 08:29: needed. [place] (SUMATRIPTA 03 Medical N-NAPROXEN Branch ORAL) sertraline 3-0 Yes Take by Univ ers HCl (ZOLOFT 4-20 mouth. ity of ORAL) 08:29: [place] [address] Medical Branch sumatriptan 2023-0 Yes Take by Uni vers succ/naprox 4-20 mouth as ity of en sod 08:29: needed. [place] (SUMATRIPTA 03 Medical N-NAPROXEN Branch ORAL) sertraline 3-0 Yes Take by Univ ers HCl (ZOLOFT 4-20 mouth. ity of ORAL) 08:29: [place] [address] Medical Branch sumatriptan 2023-0 Yes Take by Uni vers succ/naprox 4-20 mouth as ity of en sod 08:29: needed. [place] (SUMATRIPTA 03 Medical N-NAPROXEN Branch ORAL) sertraline 3-0 Yes Take by Univ ers HCl (ZOLOFT 4-20 mouth. ity of ORAL) 08:29: [place] [address] Medical Branch sumatriptan 2023-0 Yes Take by Uni vers succ/naprox 4-20 mouth as ity of en sod 08:29: needed. [place] (SUMATRIPTA 03 Medical N-NAPROXEN Branch ORAL) sertraline 3-0 Yes Take by Univ ers HCl (ZOLOFT 4-20 mouth. ity of ORAL) 08:29: [place] [address] Medical Branch diltiazem 2023-0 Yes [id number] 30mg Take 1 Un vale 30 mg 4-20 tablet by ity of tablet 00:00: mouth [place] 00 every 8 Medical (eight) Branch hours. diltiazem 2023-0 Yes [id number] 30mg Take 1 Un vale 30 mg 4-20 tablet by ity of tablet 00:00: mouth [place] 00 every 8 Medical (eight) Branch hours. diltiazem 2023-0 Yes [id number] 30mg Take 1 Un vale 30 mg 4-20 tablet by ity of tablet 00:00: mouth [place] every 8 Medical (eight) Branch hours. diltiazem 2023-0 Yes [id number] 30mg Take 1 Un vale 30 mg 4-20 tablet by ity of tablet 00:00: mouth [place] every 8 Medical (eight) Branch hours. diltiazem 2023-0 Yes 30mg Q.5D Take 1 Method i (CardIZEM) 4-20 tablet (30 st 30 MG 00:00: mg total) Hospita tablet 00 by mouth 2 l (two) times a day. diltiazem 0 Yes 30mg Q.5D Take 1 Method i (CardIZEM) 4-20 tablet (30 st 30 MG 00:00: mg total) Hospita tablet 00 by mouth 2 l (two) times a day. FENTanyl PF 0 Yes 25ug 25 mcg, Uni vers (SUBLIMAZE 3 Slow IV ity of (PF)) 19:50: Push, [place] injection 41 Q5MIN PRN, Medi orin 25 mcg 4 doses, Branch Starting on Tue07/02/22 at 1450, Until Discontinu ed, Routine, Pain (scale 4-6), PACU ondansetron Yes 4mg 4 mg, Slow Univers (ZOFRAN 07-02 IV Push, ity of (PF)) 19:50: PRN, [...] 2023, Routine, Pain (scale 4-6), PACU ondansetron 2022-0 2022- No 4mg 4 mg, Slow Univers (ZOFRAN 07-02 IV Push, ity of (PF)) 19:50: 01:24 PRN, 1 [place] injection 4 41 :04 dose, Medical mg Starting Branch on Tue07/02/22 at 1450, Until Tue07/02/22 at 2023, Routine, Nausea and Vomiting (N/V), PACU FENTanyl PF 2022-0 2022- No 25ug 25 mcg, Un vale [...] Routine, Nausea and Vomiting (N/V), PACU lidocaine 2022-2022- No ONCE INTRA U nivers 1% (PF) [...] at 1438, Routine, CV Intraproce dure HYDROCHLORO 0 Yes 10mg Take 10 mg Univers THIAZIDE 07-02 by mouth ity of ORAL 18:24: daily. [address] pregabalin 0 Yes Take by [facility] [place] ers (LYRICA 07-02 mouth ity of ORAL) 18:24: daily. [place] [facility] montelukast 0 Yes 10mg Take 10 mg Univers 10 mg 07-02 by mouth ity of tablet 18:24: daily. [place] [facility] sumatriptan Yes Take by Uni vers succ/naprox 07-02 mouth as ity of en sod 18:24: needed. [place] (SUMATRIPTA [facility] N-NAPROXEN Branch ORAL) SERTraline 0 Yes 100mg Take 100 Un vale 100 mg 3-31 mg by ity of tablet 18:24: mouth [place] daily. Medical Branch sertraline 2023-0 Yes Take by Univ ers HCl (ZOLOFT 3-31 mouth. ity of ORAL) 18:24: [place] [address] Medical Branch HYDROCHLORO 2022-0 Yes 10mg Take 10 mg Univers THIAZIDE 3-31 by mouth ity of ORAL 18:24: daily. [place] [facility] pregabalin 2022-0 Yes Take by Univ ers (LYRICA 3-31 mouth ity of ORAL) 18:24: daily. [place] [facility] montelukast 2022-0 Yes 10mg Take 10 mg Univers 10 mg 3-31 by mouth ity of tablet 18:24: daily. [place] [facility] sumatriptan 2022-0 Yes Take by Uni vers succ/naprox 3-31 mouth as ity of en sod 18:24: needed. [place] (SUMATRIPTA Medical N-NAPROXEN Branch ORAL) SERTraline 2022-0 Yes 100mg Take 100 Un vale 100 mg 3-31 mg by ity of tablet 18:24: mouth daily. Medical Branch sertraline 2022-0 Yes Take by Univ ers HCl (ZOLOFT 3-31 mouth. ity of ORAL) 18:24: [place] [address] Medical Branch HYDROCHLORO 2022-0 Yes 10mg Take 10 mg Univers THIAZIDE 3-31 by mouth ity of ORAL 18:24: daily. [place] [address] Medical Branch pregabalin 2022-0 Yes Take by Univ ers (LYRICA 3-31 mouth ity of ORAL) 18:24: daily. [place] [address] Medical Branch montelukast 2022-0 Yes 10mg Take 10 mg Univers 10 mg 3-31 by mouth ity of tablet 18:24: daily. [place] [address] Medical Branch sumatriptan 2022-0 Yes Take by Uni vers succ/naprox 3-31 mouth as ity of en sod 18:24: needed. [place] (SUMATRIPTA 01 Medical N-NAPROXEN Branch ORAL) SERTraline 2022-0 Yes 100mg Take 100 Un vale 100 mg 3-31 mg by ity of tablet 18:24: mouth [place] daily. Medical Branch sertraline 2022-0 Yes Take by Univ ers HCl (ZOLOFT 3-31 mouth. ity of ORAL) 18:24: [place] [address] Medical Branch HYDROCHLORO 3-0 Yes 10mg Take 10 mg Univers THIAZIDE 3-31 by mouth ity of ORAL 18:24: daily. [place] [facility] pregabalin 2022-0 Yes Take by Univ ers (LYRICA 3-31 mouth ity of ORAL) 18:24: daily. [place] [facility] montelukast 2022-0 Yes 10mg Take 10 mg Univers 10 mg 3-31 by mouth ity of tablet 18:24: daily. [place] [facility] sumatriptan 2022-0 Yes Take by Uni vers succ/naprox 3-31 mouth as ity of en sod 18:24: needed. [place] (SUMATRIPTA Medical N-NAPROXEN Branch ORAL) SERTraline 2022-0 Yes 100mg Take 100 Un vale 100 mg 3-31 mg by ity of tablet 18:24: mouth daily. Medical Branch sertraline 2022-0 Yes Take by Univ ers HCl (ZOLOFT 3-31 mouth. ity of ORAL) 18:24: [place] [facility] HYDROCHLORO 2022-0 Yes 10mg Take 10 mg Univers THIAZIDE 3-31 by mouth ity of ORAL 18:24: daily. [place] [facility] pregabalin 2022-0 Yes Take by Univ ers (LYRICA 3-31 mouth ity of ORAL) 18:24: daily. [place] [facility] montelukast 2022-0 Yes 10mg Take 10 mg Univers 10 mg 3-31 by mouth ity of tablet 18:24: daily. [place] [facility] sumatriptan 2022-0 Yes Take by Uni vers succ/naprox 3-31 mouth as ity of en sod 18:24: needed. [place] (SUMATRIPTA 01 Medical N-NAPROXEN Branch ORAL) SERTraline 3-0 Yes 100mg Take 100 Un vale 100 mg 3-31 mg by ity of tablet 18:24: mouth daily. Medical Branch sertraline 2022-0 Yes Take by Univ ers HCl (ZOLOFT 3-31 mouth. ity of ORAL) 18:24: [place] [address] Medical Branch HYDROCHLORO 3-0 Yes 10mg Take 10 mg Univers THIAZIDE 3-31 by mouth ity of ORAL 18:24: daily. [place] [address] Medical Branch pregabalin 2022-0 Yes Take by Univ ers (LYRICA 3-31 mouth ity of ORAL) 18:24: daily. Medical Branch montelukast 3-0 Yes 10mg Take 10 mg Univers 10 mg 3-31 by mouth ity of tablet 18:24: daily. Medical Branch SERTraline 3-0 Yes 100mg Take 100 Un vale 100 mg 3-31 mg by ity of tablet 18:24: mouth [place] daily. Medical Branch HYDROCHLORO 3-0 Yes 10mg Take 10 mg Univers THIAZIDE 3-31 by mouth ity of ORAL 18:24: daily. Medical Branch pregabalin 3-0 Yes Take by Univ ers (LYRICA 3-31 mouth ity of ORAL) 18:24: daily. Medical Branch montelukast 2022-0 Yes 10mg Take 10 mg Univers 10 mg 3-31 by mouth ity of tablet 18:24: daily. Medical Branch SERTraline 3-0 Yes 100mg Take 100 Un vale 100 mg 3-31 mg by ity of tablet 18:24: mouth daily. Medical Branch HYDROCHLORO 3-0 Yes 10mg Take 10 mg Univers THIAZIDE 3-31 by mouth ity of ORAL 18:24: daily. Medical Branch pregabalin 3-0 Yes Take by Univ ers (LYRICA 3-31 mouth ity of ORAL) 18:24: daily. Medical Branch montelukast 3-0 Yes 10mg Take 10 mg Univers 10 mg 3-31 by mouth ity of tablet 18:24: daily. Medical Branch SERTraline 3-0 Yes 100mg Take 100 Un vale 100 mg 3-31 mg by ity of tablet 18:24: mouth daily. Medical Branch HYDROCHLORO 3-0 Yes 10mg Take 10 mg Univers THIAZIDE 3-31 by mouth ity of ORAL 18:24: daily. Medical Branch pregabalin 3-0 Yes Take by Univ ers (LYRICA 3-31 mouth ity of ORAL) 18:24: daily. Medical Branch montelukast 3-0 Yes 10mg Take 10 mg Univers 10 mg 3-31 by mouth ity of tablet 18:24: daily. Medical Branch SERTraline 3-0 Yes 100mg Take 100 Un vale 100 mg 3-31 mg by ity of tablet 18:24: mouth [place] daily. Medical Branch HYDROCHLORO 2022-0 Yes 10mg Take 10 mg Univers THIAZIDE 3-31 by mouth ity of ORAL 18:24: daily. [place] [facility] pregabalin 0 Yes Take by Univ ers (LYRICA 3-31 mouth ity of ORAL) 18:24: daily. [place] [facility] montelukast 2022-0 Yes 10mg Take 10 mg Univers 10 mg 3-31 by mouth ity of tablet 18:24: daily. [place] [address] Medical Branch SERTraline 0 Yes 100mg Take 100 Un vale 100 mg 3-31 mg by ity of tablet 18:24: mouth daily. Medical Branch atorvastati Yes 40mg 40 mg, Univ ers n (LIPITOR) 2-20 Oral, QPM, it y of tablet 40 23:00: [place] dose [place] mg 00 on Tue [facility] 05/24/22 at [place] 1700, Until Discontinu ed, Routine HYDROCHLORO Yes 10mg Take 10 mg Univers THIAZIDE 2-20 by mouth ity of ORAL 20:15: daily. [address] Branch pregabalin Yes Take by Uni vers (LYRICA 2-20 mouth ity of ORAL) 20:15: daily. [address] Branch montelukast 0 Yes 10mg Take 10 mg Univers 10 mg 2-20 by mouth ity of tablet 20:15: daily. [address] Branch sumatriptan Yes Take by Uni vers succ/naprox 2-20 mouth as ity of en sod 20:15: needed. [place] (SUMATRIPTA [address] [place] [address] N-NAPROXEN Branch ORAL) SERTraline 0 Yes 100mg Take 100 Un vale 100 mg 2-20 mg by ity of tablet 20:15: mouth [place] [address] daily. Medical Branch sertraline 2022-0 Yes Take by Univ ers HCl (ZOLOFT 2-20 mouth. ity of ORAL) 20:15: [address] Branch HYDROCHLORO 2022-0 Yes 10mg Take 10 mg Univers THIAZIDE 2-20 by mouth ity of ORAL 20:15: daily. [address] pregabalin 2022-0 Yes Take by Univ ers (LYRICA 2-20 mouth ity of ORAL) 20:15: daily. [place] [address] Medical Branch montelukast 2022-0 Yes 10mg Take 10 mg Univers 10 mg 2-20 by mouth ity of tablet 20:15: daily. [place] [address] Medical Branch sumatriptan 2022-0 Yes Take by Uni vers succ/naprox 2-20 mouth as ity of en sod 20:15: needed. [place] (SUMATRIPTA 52 Medical N-NAPROXEN Branch ORAL) SERTraline 2022-0 Yes 100mg Take 100 Un vale 100 mg 2-20 mg by ity of tablet 20:15: mouth [place] [address] daily. Medical Branch sertraline 2022-0 Yes Take by Univ ers HCl (ZOLOFT 2-20 mouth. ity of ORAL) 20:15: [place] [address] Medical Branch HYDROCHLORO 2022-0 Yes 10mg Take 10 mg Univers THIAZIDE 2-20 by mouth ity of ORAL 20:15: daily. [place] [address] Medical Branch pregabalin 2022-0 Yes Take by Univ ers (LYRICA 2-20 mouth ity of ORAL) 20:15: daily. [place] [address] Medical Branch montelukast 2022-0 Yes 10mg Take 10 mg Univers 10 mg 2-20 by mouth ity of tablet 20:15: daily. [place] [address] Medical Branch sumatriptan 2022-0 Yes Take by Uni vers succ/naprox 2-20 mouth as ity of en sod 20:15: needed. [place] (SUMATRIPTA 52 Medical N-NAPROXEN Branch ORAL) SERTraline 2022-0 Yes 100mg Take 100 Un vale 100 mg 2-20 mg by ity of tablet 20:15: mouth [place] [address] daily. Medical Branch sertraline 2022-0 Yes Take by Univ ers HCl (ZOLOFT 2-20 mouth. ity of ORAL) 20:15: [place] [address] Medical Branch HYDROCHLORO 2022-0 Yes 10mg Take 10 mg Univers THIAZIDE 2-20 by mouth ity of ORAL 20:15: daily. [place] [address] Medical Branch pregabalin 2022-0 Yes Take by Univ ers (LYRICA 2-20 mouth ity of ORAL) 20:15: daily. [address] Branch montelukast 2022-0 Yes 10mg Take 10 mg Univers 10 mg 2-20 by mouth ity of tablet 20:15: daily. [place] [address] Medical Branch sumatriptan 2022-0 Yes Take by Uni vers succ/naprox 2-20 mouth as ity of en sod 20:15: needed. [place] (SUMATRIPTA 52 Medical N-NAPROXEN Branch ORAL) SERTraline 2022-0 Yes 100mg Take 100 Un vale 100 mg 2-20 mg by ity of tablet 20:15: mouth [place] [address] daily. Medical Branch sertraline 2022-0 Yes Take by Univ ers HCl (ZOLOFT 2-20 mouth. ity of ORAL) 20:15: [place] [address] Medical Branch HYDROCHLORO 3-0 Yes 10mg Take 10 mg Univers THIAZIDE 2-20 by mouth ity of ORAL 20:15: daily. [place] [address] Medical Branch pregabalin 2022-0 Yes Take by Univ ers (LYRICA 2-20 mouth ity of ORAL) 20:15: daily. [address] Branch montelukast 2022-0 Yes 10mg Take 10 mg Univers 10 mg 2-20 by mouth ity of tablet 20:15: daily. [place] [address] Medical Branch sumatriptan 2022-0 Yes Take by Uni vers succ/naprox 2-20 mouth as ity of en sod 20:15: needed. [place] (SUMATRIPTA Medical N-NAPROXEN Branch ORAL) SERTraline 2022-0 Yes 100mg Take 100 Un vale 100 mg 2-20 mg by ity of tablet 20:15: mouth [place] [address] daily. Medical Branch sertraline 2022-0 Yes Take by Univ ers HCl (ZOLOFT 2-20 mouth. ity of ORAL) 20:15: [place] [address] Medical Branch HYDROCHLORO 3-0 Yes 10mg Take 10 mg Univers THIAZIDE 2-20 by mouth ity of ORAL 20:15: daily. [place] [address] Medical Branch pregabalin 3-0 Yes Take by Univ ers (LYRICA 2-20 mouth ity of ORAL) 20:15: daily. [address] Branch montelukast 3-0 Yes 10mg Take 10 mg Univers 10 mg 2-20 by mouth ity of tablet 20:15: daily. [place] [address] Medical Branch sumatriptan 3-0 Yes Take by Uni vers succ/naprox 2-20 mouth as ity of en sod 20:15: needed. [place] (SUMATRIPTA Medical N-NAPROXEN Branch ORAL) SERTraline 2023-0 Yes 100mg Take 100 Un vale 100 mg 2-20 mg by ity of tablet 20:15: mouth [place] [address] daily. Medical Branch sertraline 2022-0 Yes Take by Univ ers HCl (ZOLOFT 2-20 mouth. ity of ORAL) 20:15: [place] [address] Medical Branch HYDROCHLORO 2022-0 Yes 10mg Take 10 mg [facility] THIAZIDE 2-20 by mouth ity of ORAL 20:15: daily. [place] [address] [facility] Branch pregabalin 2022-0 Yes Take by Univ ers (LYRICA 2-20 mouth ity of ORAL) 20:15: daily. [place] [address] [facility] Branch montelukast 2022-0 Yes 10mg Take 10 mg [facility] 10 mg 2-20 by mouth ity of tablet 20:15: daily. [place] [address] [facility] Branch sumatriptan 2022-0 Yes Take by Uni vers succ/naprox 2-20 mouth as ity of en sod 20:15: needed. [place] (SUMATRIPTA Medical N-NAPROXEN Branch ORAL) SERTraline 2022-0 Yes 100mg Take 100 Un vale 100 mg 2-20 mg by ity of tablet 20:15: mouth [place] [address] daily. Medical Branch sertraline 2022-0 Yes Take by Univ ers HCl (ZOLOFT 2-20 mouth. ity of ORAL) 20:15: [place] [address] Medical Branch HYDROCHLORO 2022-0 Yes 10mg Take 10 mg [facility] THIAZIDE 2-20 by mouth ity of ORAL 20:15: daily. [place] [address] [facility] Branch pregabalin 2022-0 Yes Take by Univ ers (LYRICA 2-20 mouth ity of ORAL) 20:15: daily. [place] [address] [facility] Branch montelukast 2022-0 Yes 10mg Take 10 mg [facility] 10 mg 2-20 by mouth ity of tablet 20:15: daily. [place] [address] Medical Branch sumatriptan 2022-0 Yes Take by Uni vers succ/naprox 2-20 mouth as ity of en sod 20:15: needed. [place] (SUMATRIPTA 52 Medical N-NAPROXEN Branch ORAL) SERTraline 3-0 Yes 100mg Take 100 Un vale 100 mg 2-20 mg by ity of tablet 20:15: mouth [place] [address] daily. Medical Branch sertraline 2022-0 Yes Take by Univ ers HCl (ZOLOFT 2-20 mouth. ity of ORAL) 20:15: [place] [address] Medical Branch HYDROCHLORO 2022-0 Yes 10mg Take 10 mg [facility] THIAZIDE 2-20 by mouth ity of ORAL 20:15: daily. [place] [address] Medical Branch pregabalin 2022-0 Yes Take by Univ ers (LYRICA 2-20 mouth ity of ORAL) 20:15: daily. [address] Branch montelukast 2022-0 Yes 10mg Take 10 mg [facility] 10 mg 2-20 by mouth ity of tablet 20:15: daily. [place] [address] Medical Branch sumatriptan 2022-0 Yes Take by Uni vers succ/naprox 2-20 mouth as ity of en sod 20:15: needed. [place] (SUMATRIPTA Medical N-NAPROXEN Branch ORAL) SERTraline 2022-0 Yes 100mg Take 100 Un vale 100 mg 2-20 mg by ity of tablet 20:15: mouth [place] [address] daily. Medical Branch sertraline 2022-0 Yes Take by Univ ers HCl (ZOLOFT 2-20 mouth. ity of ORAL) 20:15: [address] Branch HYDROCHLORO 2022-0 Yes 10mg Take 10 mg [facility] THIAZIDE 2-20 by mouth ity of ORAL 20:15: daily. [address] Branch pregabalin 2022-0 Yes Take by Univ ers (LYRICA 2-20 mouth ity of ORAL) 20:15: daily. [address] montelukast 2022-0 Yes 10mg Take 10 mg [facility] 10 mg 2-20 by mouth ity of tablet 20:15: daily. [place] [address] [facility] Branch sumatriptan 2022-0 Yes Take by Uni vers succ/naprox 2-20 mouth as ity of en sod 20:15: needed. [place] (SUMATRIPTA Medical N-NAPROXEN Branch ORAL) SERTraline 2022-0 Yes 100mg Take 100 Un vale 100 mg 2-20 mg by ity of tablet 20:15: mouth [place] [address] daily. Medical Branch sertraline 2022-0 Yes Take by Univ ers HCl (ZOLOFT 2-20 mouth. ity of ORAL) 20:15: [address] HYDROCHLORO 2022-0 Yes 10mg Take 10 mg [facility] THIAZIDE 2-20 by mouth ity of ORAL 20:15: daily. [place] 52 Medical Branch pregabalin 2022-0 Yes Take by Univ ers (LYRICA 2-20 mouth ity of ORAL) 20:15: daily. [place] [address] Medical Branch montelukast 2022-0 Yes 10mg Take 10 mg [facility] 10 mg 2-20 by mouth ity of tablet 20:15: daily. [place] [address] Medical Branch sumatriptan 2022-0 Yes Take by Uni vers succ/naprox 2-20 mouth as ity of en sod 20:15: needed. [place] (SUMATRIPTA 52 Medical N-NAPROXEN Branch ORAL) SERTraline 2022-0 Yes 100mg Take 100 Un vale 100 mg 2-20 mg by ity of tablet 20:15: mouth [place] [address] daily. Medical Branch sertraline 2022-0 Yes Take by Univ ers HCl (ZOLOFT 2-20 mouth. ity of ORAL) 20:15: [place] [address] Medical Branch HYDROCHLORO 3-0 Yes 10mg Take 10 mg [facility] THIAZIDE 2-20 by mouth ity of ORAL 20:15: daily. [place] [address] Medical Branch pregabalin 2022-0 Yes Take by Univ ers (LYRICA 2-20 mouth ity of ORAL) 20:15: daily. [place] [address] Medical Branch montelukast 2022-0 Yes 10mg Take 10 mg [facility] 10 mg 2-20 by mouth ity of tablet 20:15: daily. [place] [address] Medical Branch sumatriptan 2022-0 Yes Take by Uni vers succ/naprox 2-20 mouth as ity of en sod 20:15: needed. [place] (SUMATRIPTA 52 Medical N-NAPROXEN Branch ORAL) SERTraline 3-0 Yes 100mg Take 100 Un vale 100 mg 2-20 mg by ity of tablet 20:15: mouth [place] [address] daily. Medical Branch sertraline 2022-0 Yes Take by Univ ers HCl (ZOLOFT 2-20 mouth. ity of ORAL) 20:15: [place] [address] Medical Branch HYDROCHLORO 3-0 Yes 10mg Take 10 mg [facility] THIAZIDE 2-20 by mouth ity of ORAL 20:15: daily. [address] Branch pregabalin 3-0 Yes Take by Univ ers (LYRICA 2-20 mouth ity of ORAL) 20:15: daily. [place] [address] Medical Branch montelukast 2022-0 Yes 10mg Take 10 mg [facility] 10 mg 2-20 by mouth ity of tablet 20:15: daily. [place] [address] Medical Branch sumatriptan 2022-0 Yes Take by Uni vers succ/naprox 2-20 mouth as ity of en sod 20:15: needed. [place] (SUMATRIPTA 52 Medical N-NAPROXEN Branch ORAL) SERTraline 2022-0 Yes 100mg Take 100 Un vale 100 mg 2-20 mg by ity of tablet 20:15: mouth [place] [address] daily. Medical Branch sertraline 2022-0 Yes Take by Univ ers HCl (ZOLOFT 2-20 mouth. ity of ORAL) 20:15: [address] Branch HYDROCHLORO 2022-0 Yes 10mg Take 10 mg [facility] THIAZIDE 2-20 by mouth ity of ORAL 20:15: daily. [address] Branch pregabalin Yes Take by Univ ers (LYRICA 2-20 mouth ity of ORAL) 20:15: daily. [address] Branch montelukast 2022-0 Yes 10mg Take 10 mg [facility] 10 mg 2-20 by mouth ity of tablet 20:15: daily. [address] Branch sumatriptan Yes Take by Uni vers succ/naprox 2-20 mouth as ity of en sod 20:15: needed. [place] (SUMATRIPTA Medical N-NAPROXEN Branch ORAL) SERTraline 0 Yes 100mg Take 100 Un vale 100 mg 2-20 mg by ity of tablet 20:15: mouth [place] [address] daily. Medical Branch sertraline 2022-0 Yes Take by Univ ers HCl (ZOLOFT 2-20 mouth. ity of ORAL) 20:15: [address] sulfur 2022-0 3- No [id number] 5mL 5 mL, Unive rs hexafluorid 2-20 -20 Intravenou i ty of e microsphr 17:45: 17:45 s, ONCE, 1 [place] (LUMASON) 00 :00 dose, On Medica l injection 5 Mon Branch mL 05/24/22 at 1145, Routine
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 Restricted medication : FARSHAD CHACON pantoprazol 0 Yes 40mg 40 mg, Univ ers e 2-20 Oral, ity of (PROTONIX) 15:00: DAILY, [place] EC tablet 00 First dose Medi orin 40 mg on Tue Branch 05/24/22 at 0900, Until Discontinu ed, Routine aspirin 2022-0 2022- No 81mg 81 mg, Univers chewable 2-20 02-20 Oral, ity of tablet 81 15:00: 19:14 DAILY, [place] mg 00 :40 First dose Medical on Tue Branch 05/24/22 at 0900, Until Discontinu ed, Routine heparin 0 Yes 5000U 5,000 [facility] (porcine) 2-20 Units, ity of injection 14:00: [place] 5,000 Units 00 us, Q12H, Med ical First dose Branch on Tue05/24/22 at 0800, Until Discontinu ed, Routine ondansetron Yes 4mg 4 mg, Slow [facility] (ZOFRAN 2-20 IV Push, ity of (PF)) 11:05: Q6HPRN, [place] injection 4 33 Starting Medi orin mg on Tue Branch 05/24/22 at 0505, Until Discontinu ed, Routine, Nausea and Vomiting (N/V) morpHINE (4 2022- No 4mg 4 mg, Slow [facility] mg/mL) 05-24- IV Push, ity of injection 4 11:05: 11:04 Q4HPRN, [place] mg 16 :16 Starting Medical on Tue Branch 05/24/22 at 0505, Until Tue05/25/22 at 0504, Routine, Pain (scale 7-10) acetaminoph Yes 650mg 650 mg, Un vale en 2-20 Oral, ity of (TYLENOL) 11:04: Q6HPRN, [place] tablet 650 52 Starting Medic al mg on Tue Branch 05/24/22 at 0504, Until Discontinu ed, Routine, Pain (scale 1-3) ondansetron 2022-0 2022- No 4mg 4 mg, Slow [facility] (ZOFRAN 2-20 02-20 IV Push, ity of (PF)) 07:15: 06:38 ONCE, 1 [place] injection 4 00 :00 dose, On Medi orin mg Tue [place] 05/24/22 at 0115, JOSE LUIS HYDROCHLORO 2022-0 Yes 10mg Take 10 mg [facility] THIAZIDE 2-20 by mouth ity of ORAL 05:03: daily. [place] [address] Medical Branch pregabalin 2022-0 Yes Take by [facility] [place] ers (LYRICA 2-20 mouth ity of ORAL) 05:03: daily. [place] [address] Medical Branch montelukast 2022-0 Yes 10mg Take 10 mg [facility] 10 mg 2-20 by mouth ity of tablet 05:03: daily. [place] [address] Medical Branch sumatriptan 2022-0 Yes Take by Uni vers succ/naprox 2-20 mouth as ity of en sod 05:03: needed. [place] (SUMATRIPTA 28 Medical N-NAPROXEN Branch ORAL) SERTraline 2022-0 Yes 100mg Take 100 Un vale 100 mg 2-20 mg by ity of tablet 05:03: mouth daily. Medical Branch sertraline 2022-0 Yes Take by [facility] [place] ers HCl (ZOLOFT 2-20 mouth. ity of ORAL) 05:03: [place] [address] Medical Branch sumatriptan 2022-0 Yes Take by Uni vers succ/naprox 2-14 mouth as ity of en sod 08:48: needed. [place] (SUMATRIPTA 19 Medical N-NAPROXEN Branch ORAL) SERTraline 3-0 Yes 100mg Take 100 Un vale 100 mg 2-14 mg by ity of tablet 08:48: mouth [place] 19 daily. Medical Branch sumatriptan 3-0 Yes Take by Uni vers succ/naprox 2-14 mouth as ity of en sod 08:48: needed. [place] (SUMATRIPTA 19 Medical N-NAPROXEN Branch ORAL) SERTraline 3-0 Yes 100mg Take 100 Un vale 100 mg 2-14 mg by ity of tablet 08:48: mouth [place] 19 daily. Medical Branch sumatriptan 3-0 Yes Take by Uni vers succ/naprox 2-14 mouth as ity of en sod 08:48: needed. [place] (SUMATRIPTA 19 Medical N-NAPROXEN Branch ORAL) SERTraline 3-0 Yes 100mg Take 100 Un vale 100 mg 2-14 mg by ity of tablet 08:48: mouth [place] 19 daily. Medical Branch sumatriptan 3-0 Yes Take by Uni vers succ/naprox 2-14 mouth as ity of en sod 08:48: needed. [place] (SUMATRIPTA 19 Medical N-NAPROXEN Branch ORAL) SERTraline 2022-0 Yes 100mg Take 100 Un vale 100 mg 2-14 mg by ity of tablet 08:48: mouth [place] 19 daily. Medical Branch sumatriptan 2022-0 Yes Take by Uni vers succ/naprox 2-14 mouth as ity of en sod 08:48: needed. [place] (SUMATRIPTA 19 Medical N-NAPROXEN Branch ORAL) SERTraline 2022-0 Yes 100mg Take 100 Un vale 100 mg 2-14 mg by ity of tablet 08:48: mouth [place] 19 daily. Medical Branch sumatriptan 2022-0 Yes Take by Uni vers succ/naprox 2-14 mouth as ity of en sod 08:48: needed. [place] (SUMATRIPTA 19 Medical N-NAPROXEN Branch ORAL) SERTraline 2022-0 Yes 100mg Take 100 Un vale 100 mg 2-14 mg by ity of tablet 08:48: mouth [place] 19 daily. Medical Branch Pregabalin Pregabalin 2021-04 No Pregabalin 75 MG [...] 2 ity of tablet 15:56: 00:00 (two) [place] 39 :00 times Medical daily. Branch propranoloL 2021-04- No 10mg Take 10 mg [facility] 10 mg 2-14 12-14 by mouth 2 ity of tablet 15:56: 00:00 (two) [place] 39 :00 times Medical daily. Branch Macrobid Macrobid 2021- No BID Macrobid 100 MG 100 MG 8-12 08-17 100 MG 00:00: 00:00 00 :00 diazePAM 2021-0 2021- No Take 1 tab [facility] [...] Take 1 tab [facility] (Valium) 5 09-29-19 (5mg) 60m [facility] MG tablet 00:00: 04:59 prior to Hos florencio 00 :00 MRI for l anxiety, may repeat up to one dose every 30m as needed Pregabalin Pregabalin 0 No Pregabalin 75 MG 75 MG 6-22 75 MG 00:00: 00 Pregabalin Pregabalin 2021-0 No Pregabalin 75 MG 75 MG 6-22 75 MG 00:00: 00 Pregabalin Pregabalin 2021-0 No Pregabalin 75 MG 75 MG 6-22 75 MG 00:00: 00 Pregabalin Pregabalin 2021-0 No Pregabalin 75 MG 75 MG 6-22 75 MG 00:00: 00 acetaminoph 2021-0 2021- No [id number] 1{tbl} Q6H Take 1 [facility] en-codeine 09-[address] (TYLENOL 00:00: 04:59 mouth [facility]osp[facility] WITH 00 :00 every 6 l CODEINE #3) (six) 300-30 mg hours as per tablet needed for moderate pain for up to 10 days .acute pain. acetaminoph 28 1{tbl} Q6H Take 1 [facility] en-codeine 6-13 -[address] (TYLENOL 00:00: 04:59 mouth [facility]osp[facility] WITH 00 :00 every 6 l CODEINE #3) (six) 300-30 mg hours as per tablet needed for moderate pain for up to 10 days .acute pain. acetaminoph 28 1{tbl} Q6H Take 1 [facility] en-codeine 6-13 -[address] (TYLENOL 00:00: 04:59 mouth [facility]osp[facility] WITH 00 :00 every 6 l CODEINE #3) (six) 300-30 mg hours as per tablet needed for moderate pain for up to 10 days .acute pain. acetaminoph 28 1{tbl} Q6H Take 1 [facility] en-codeine 6-13 -[address] (TYLENOL 00:00: 04:59 mouth [facility]osp[facility] WITH 00 :00 every 6 l CODEINE #3) (six) 300-30 mg hours as per tablet needed for moderate pain for up to 10 days .acute pain. acetaminoph 28 1{tbl} Q6H Take 1 [facility] en-codeine 6-13 -[address] (TYLENOL 00:00: 04:59 mouth [facility]osp[facility] WITH 00 :00 every 6 l CODEINE #3) (six) 300-30 mg hours as per tablet needed for moderate pain for up to 10 days .acute pain. sertraline No 50mg QD Take 1 Meth [facility] (ZOLOFT) 50 09-10-10 tablet (50 s t MG tablet 00:00: 04:59 mg total) [facility] 00 :00 by mouth l daily. sertraline 2022- No 50mg QD Take 1 Meth shay (ZOLOFT) 50 09-10-10 tablet (50 s t MG tablet 00:00: 04:59 mg total) [facility] 00 :00 by mouth l daily. sertraline 0 2022- No 50mg QD Take 1 Meth shay (ZOLOFT) 50 6- 06-10 tablet (50 s t MG tablet 00:00: 04:59 mg total) [facility] 00 :00 by mouth l daily. sertraline 2-0 2022- No 50mg QD Take 1 Meth shay (ZOLOFT) 50 6- 06-10 tablet (50 s t MG tablet 00:00: 04:59 mg total) [facility] 00 :00 by mouth l daily. sertraline 2021-0 2022- No 50mg QD Take 1 Meth shay (ZOLOFT) 50 6- 05-04 tablet (50 s t MG tablet 00:00: 00:00 mg total) [facility] 00 :00 by mouth l daily. sertraline 2-0 2022- No 50mg QD Take 1 Meth shay (ZOLOFT) 50 6- 05-04 tablet (50 s t MG tablet [...] L) 25 MG 00 l tablet butalbitaL- 2022-0 Yes 1{tbl} Q4H Take 1 [facility] acetaminoph 6-[address] en (BUPAP) 00:00: mouth [facility] 50-325 mg 00 every 4 l tablet (four) hours as needed (headaches ). butalbitaL- 2022-0 Yes 1{tbl} Q4H Take 1 [facility] acetaminoph 6-[address] en (BUPAP) 00:00: mouth Hospit a 50-325 mg 00 every 4 l tablet (four) hours as needed (headaches ). butalbitaL- 0 Yes 1{tbl} Q4H Take 1 Me thodi [...] (KEPPRA) 09-09- tablet st 500 MG 00:00: 04:59 (500 mg Hospita tablet 00 :00 total) by l mouth 2 (two) times a day. levETIRAcet 2021-2022- No 500mg Q.5D Take 1 [facility] am (KEPPRA) 09-09- tablet st 500 MG 00:00: 04:59 (500 mg Hospita tablet 00 :00 total) by l mouth 2 (two) times a day. levETIRAcet 2021-2022- No 500mg Q.5D Take 1 [facility] am (KEPPRA) 09-09- tablet st 500 MG 00:00: 04:59 (500 mg Hospita tablet 00 :00 total) by l mouth 2 (two) times a day. levETIRAcet 2021-0 2022- No 500mg Q.5D Take 1 [facility] am (KEPPRA) 09-09-[address] 500 MG 00:00: 00:00 (500 mg Hospita tablet 00 :00 total) by l mouth 2 (two) times a day. butalbitaL- 2021-0 3- No 1{tbl} Q4H Take 1 M ethodi acetaminoph 6- 05-[address] en (BUPAP) 00:00: 00:00 mouth Hospi ta 50-325 mg 00 :00 every 4 l tablet (four) hours as needed (headaches ). levETIRAcet 2021-2022- No 500mg Q.5D Take 1 [facility]odi am (KEPPRA) 09-09 05-[address] 500 MG 00:00: 00:00 (500 mg Hospita tablet 00 :00 total) by l mouth 2 (two) times a day. butalbitaL- 2021-0 2022- No 1{tbl} Q4H Take 1 M ethodi acetaminoph 6- 05-[address] en (BUPAP) 00:00: 00:00 mouth Hospi ta 50-325 mg 00 :00 every 4 l tablet (four) hours as needed (headaches ). dexamethaso 2022-0 2022- No 2mg Q.5D Take [...] 2mg Q.5D Take 1 Met hodi ne 6- 06-16 tablet (2 st (DECADRON) 00:00: 04:59 mg total) H ospita 2 MG tablet 00 :00 by mouth l every 12 (twelve) hours for 7 days. dexamethaso 2022-0 2022- No 2mg Q.5D Take 1 Met hodi ne 6- 06-16 tablet (2 st (DECADRON) 00:00: 04:59 mg total) H ospita 2 MG tablet 00 :00 by mouth l every 12 (twelve) hours for 7 days. sertraline 2021-0 Yes Take by Univ ers HCl (ZOLOFT 4-21 mouth. ity of ORAL) 13:25: [place] [address] Medical Branch sertraline 2021-0 Yes Take by Univ ers HCl (ZOLOFT 4-21 mouth. ity of ORAL) 13:25: [address] sertraline 2021-0 Yes Take by Univ ers HCl (ZOLOFT 4-21 mouth. ity of ORAL) 13:25: [address] Branch sertraline 2021-0 Yes Take by Univ ers HCl (ZOLOFT 4-21 mouth. ity of ORAL) 13:25: [address] Branch sertraline 2021-0 Yes Take by Univ ers HCl (ZOLOFT 4-21 mouth. ity of ORAL) 13:25: [address] sertraline 2021-0 Yes Take by Univ ers HCl (ZOLOFT 4-21 mouth. ity of ORAL) 13:25: [address] SERTraline 2021-0 Yes 100mg Take 100 Un vale 100 mg 4-21 mg by ity of tablet 13:25: mouth [place] 20 daily. Medical Branch sertraline 0 Yes Take by Univ ers HCl (ZOLOFT 4-21 mouth. ity of ORAL) 13:25: [address] SERTraline 2021-0 Yes 100mg Take 100 Un vale 100 mg 4-21 mg by ity of tablet 13:25: mouth [place] 20 daily. Medical Branch sertraline 2021-0 Yes Take by Univ ers HCl (ZOLOFT 4-21 mouth. ity of ORAL) 13:25: [address] SERTraline 2021-0 Yes 100mg Take 100 Un vale 100 mg 4-21 mg by ity of tablet 13:25: mouth [place] 20 daily. Medical Branch sertraline 2021-0 Yes Take by Univ ers HCl (ZOLOFT 4-21 mouth. ity of ORAL) 13:25: [address] SERTraline 2021-0 Yes 100mg Take 100 Un [...] ity of ORAL) 13:25: Medical Branch SERTraline 2-0 Yes 100mg Take 100 Un vale 100 mg 4-21 mg by ity of tablet 13:25: mouth [place] 20 daily. Medical Branch sertraline 2021-0 Yes Take by Univ ers HCl (ZOLOFT 4-21 mouth. ity of ORAL) 13:25: Medical Branch SERTraline 2-0 Yes 100mg Take 100 Un vale 100 mg 4-21 mg by ity of tablet 13:25: mouth [place] 20 daily. Medical Branch sertraline 2021-0 Yes Take by Univ ers HCl (ZOLOFT 4-21 mouth. ity of ORAL) 13:25: Medical Branch sumatriptan 2-0 Yes Take by Uni vers succ/naprox 4-21 mouth as ity of en sod 13:23: needed. [place] (SUMATRIPTA 09 Medical N-NAPROXEN Branch ORAL) propranoloL 2-0 Yes 10mg Take 10 mg Univers 10 mg 4-21 by mouth 2 ity of tablet 13:23: (two) [place] 09 times Medical daily. Branch sumatriptan 2-0 Yes Take by Uni vers succ/naprox 4-21 mouth as ity of en sod 13:23: needed. [place] (SUMATRIPTA 09 Medical N-NAPROXEN Branch ORAL) propranoloL 2-0 Yes 10mg Take 10 mg Univers 10 mg 4-21 by mouth 2 ity of tablet 13:23: (two) [place] 09 times Medical daily. Branch sumatriptan 2-0 Yes Take by Uni vers succ/naprox 4-21 mouth as ity of en sod 13:23: needed. [place] (SUMATRIPTA 09 Medical N-NAPROXEN Branch ORAL) propranoloL 2-0 Yes 10mg Take 10 mg [facility] 10 mg 4-21 by mouth 2 ity of tablet 13:23: (two) [place] 09 times Medical daily. Branch sumatriptan 2-0 Yes Take by Uni vers succ/naprox 4-21 mouth as ity of en sod 13:23: needed. [place] (SUMATRIPTA 09 Medical N-NAPROXEN Branch ORAL) propranoloL 2-0 Yes 10mg Take 10 mg [facility] 10 mg 4-21 by mouth 2 ity of tablet 13:23: (two) [place] 09 times Medical daily. Branch sumatriptan 2-0 Yes Take by Uni vers succ/naprox 4-21 mouth as ity of en sod 13:23: needed. [place] (SUMATRIPTA 09 Medical N-NAPROXEN Branch ORAL) sumatriptan 2-0 Yes Take by Uni vers succ/naprox 4-21 mouth as ity of en sod 13:23: needed. [place] (SUMATRIPTA 09 Medical N-NAPROXEN Branch ORAL) sumatriptan 2-0 Yes Take by Uni vers succ/naprox 4-21 mouth as ity of en sod 13:23: needed. [place] (SUMATRIPTA 09 Medical N-NAPROXEN Branch ORAL) sumatriptan Yes Take by Uni vers succ/naprox 4-21 mouth as ity of en sod 13:23: needed. [place] (SUMATRIPTA 09 Medical N-NAPROXEN Branch ORAL) sumatriptan 0 Yes Take by Uni vers succ/naprox 4-21 mouth as ity of en sod 13:23: needed. [place] (SUMATRIPTA 09 Medical N-NAPROXEN Branch ORAL) sumatriptan Yes Take by Uni vers succ/naprox 4-21 mouth as ity of en sod 13:23: needed. [place] (SUMATRIPTA 09 Medical N-NAPROXEN Branch ORAL) sumatriptan Yes Take by Uni vers succ/naprox 4-21 mouth as ity of en sod 13:23: needed. [place] (SUMATRIPTA 09 Medical N-NAPROXEN Branch ORAL) Lyrica [...] 2022- No 1{table BID Amoxicilli -Pot -Pot 2-05-14 t} n-Pot Clavulanate Clavulanate 00:00: 00:00 Clavulanat [...] pirit e) e) 00:00: - [facility] 00 [facility] Rocephin Rocephin 2021-0 No 1g Commo n (Ceftriaxon (Ceftriaxon 1-03 S pirit e) e) 00:00: - [facility] 00 [facility] Rocephin Rocephin 2021-0 No 1g Commo n (Ceftriaxon (Ceftriaxon 1-03 S pirit e) e) 00:00: - [facility] 00 [facility] Rocephin Rocephin 2021-0 No 1g Commo n (Ceftriaxon (Ceftriaxon 1-03 S pirit e) e) 00:00: - [facility] 00 [facility] Rocephin Rocephin 2021-0 No 1g Commo n (Ceftriaxon (Ceftriaxon 1-03 S pirit e) e) 00:00: - [facility] 00 [facility] Rocephin Rocephin 2021-0 No 1g Commo n (Ceftriaxon (Ceftriaxon 1-03 S pirit e) e) 00:00: - [facility] 00 [facility] Rocephin Rocephin 2021-0 No 1g Commo n (Ceftriaxon (Ceftriaxon 1-03 S pirit e) e) 00:00: - [facility] 00 [facility] Rocephin Rocephin 2021-0 No 1g Commo n (Ceftriaxon (Ceftriaxon 1-03 S pirit e) e) 00:00: - [facility] 00 [facility] Rocephin Rocephin 2021-0 No 1g Commo n (Ceftriaxon (Ceftriaxon 1-03 S pirit e) e) 00:00: - [facility] 00 [facility] Rocephin Rocephin 2021-0 No 1g Commo n (Ceftriaxon (Ceftriaxon 1-03 S pirit e) e) 00:00: - [facility] 00 [facility] Rocephin Rocephin 2-0 No 1g Commo n (Ceftriaxon (Ceftriaxon 1-03 S pirit e) e) 00:00: - [facility] 00 [facility] Rocephin Rocephin 2021-0 No 1g Commo n (Ceftriaxon (Ceftriaxon 1-03 S pirit e) e) 00:00: - [facility] 00 [facility] Rocephin Rocephin 2021-0 No 1g Commo n (Ceftriaxon (Ceftriaxon 1-03 S pirit e) e) 00:00: - [facility] 00 [facility] Rocephin Rocephin 2021-0 No 1g Commo n (Ceftriaxon (Ceftriaxon 1-03 S pirit e) e) 00:00: - [facility] 00 [facility] Rocephin Rocephin 2021-0 No 1g Commo n (Ceftriaxon (Ceftriaxon 1-03 S pirit e) e) 00:00: - [facility] 00 [facility] Rockortneyhin Rocephin 2021-0 No 1g Commo n (Ceftriaxon (Ceftriaxon 1-03 S pirit e) e) 00:00: - [facility] 00 [facility] Rocephin Rocephin 2021-0 No 1g Commo n (Ceftriaxon (Ceftriaxon 1-03 S pirit e) e) 00:00: - [facility] 00 [facility] Sulfamethox Sulfamethox 2021-0 2021- No 1{table BID azole-Trime azole-Trime 04-06 t} thoprim thoprim 00:00: 00:00 800-160 MG 800-160 MG 00 :00 Sulfamethox Sulfamethox 2021-0 2021- No 1{table BID Sulfametho azole-Trime azole-Trime 04-06 t} xazole-Tri thoprim thoprim 00:00: 00:00 methoprim 800-160 MG 800-160 MG 00 :00 800-160 MG Sulfamethox Sulfamethox 2021-0 2021- No 1{table BID Sulfametho azole-Trime azole-Trime [...] QD Take 25 mg [facility] (ZOLOFT) 25 05-[address] MG tablet 00:00: 00:00 daily. Hospi ta 00 :00 l ondansetron 2020-04 Yes [id number] 4mg Take 1 [facility] (ZOFRAN 1-08 tablet by ity of ODT) 4 mg 00:00: mouth [place] disintegrat 00 every 8 Medic al ing tablet (eight) Branch hours as needed for Nausea and Vomiting (N/V). meclizine 2020-04 Yes [id number] 25mg Take 1 Un vale 25 mg 1-08 tablet by ity of tablet 00:00: mouth [place] 00 every 6 Medical (six) Branch hours. naproxen 2020-04 Yes [id number] 500mg Take 1 Un vale (NAPROSYN) 1-08 tablet by ity of 500 mg 00:00: mouth 2 [place] tablet 00 (two) Medical times Branch daily with meals. methocarbam 2020-04 Yes [id number] 500mg Take 1 Univers oL 500 mg 1-08 tablet by ity o f tablet 00:00: mouth 4 [place] 00 (four) Medical times Branch daily as needed for Pain (scale 4-6). ondansetron 2020-04 Yes [id number] 4mg Take 1 [facility] (ZOFRAN 1-08 tablet by ity of ODT) 4 mg 00:00: mouth [place] disintegrat 00 every 8 Medic al ing tablet (eight) Branch hours as needed for Nausea and Vomiting (N/V). meclizine 2020-04 Yes [id number] 25mg Take 1 Un vale 25 mg 1-08 tablet by ity of tablet 00:00: mouth [place] 00 every 6 Medical (six) Branch hours. naproxen 2020-04 Yes [id number] 500mg Take 1 Un vale (NAPROSYN) 1-08 tablet by ity of 500 mg 00:00: mouth 2 [place] tablet 00 (two) Medical times Branch daily with meals. methocarbam 2020-04 Yes [id number] 500mg Take 1 [facility] 500 mg 1-08 tablet by [facility] o f tablet 00:00: mouth 4 [place] 00 (four) Medical times Branch daily as needed for Pain (scale 4-6). ondansetron 2020-04 Yes [id number] 4mg Take 1 [facility] (ZOFRAN 1-08 tablet by [facility] of ODT) 4 mg 00:00: mouth [place] disintegrat 00 every 8 Medic al ing tablet (eight) Branch hours as needed for Nausea and Vomiting (N/V). meclizine 2020-04 Yes [id number] 25mg Take 1 Un vale 25 mg 1-08 tablet by [facility] of tablet 00:00: mouth [place] 00 every 6 Medical (six) Branch hours. naproxen 2020-04 Yes [id number] 500mg Take 1 Un vale (NAPROSYN) 1-08 tablet by [facility]y of 500 mg 00:00: mouth 2 [place] tablet 00 (two) Medical times Branch daily with meals. methocarbam 2020-04 Yes [id number] 500mg Take 1 [facility] oL 500 mg 1-08 tablet by [facility]y o f tablet 00:00: mouth 4 [place] 00 (four) Medical times Branch daily as needed for Pain (scale 4-6). ondansetron 2020-04 Yes [id number] 4mg Take 1 [facility] (ZOFRAN 1-08 tablet by [facility] of ODT) 4 mg 00:00: mouth [place] disintegrat 00 every 8 [facility] tablet (eight) Branch hours as needed for Nausea and Vomiting (N/V). meclizine 2020-04 Yes [id number] 25mg Take 1 [facility] 25 mg 1-08 tablet by [facility] tablet 00:00: mouth [place] 00 every 6 Medical (six) Branch hours. naproxen 2020-04 Yes [id number] 500mg Take 1 [facility] (NAPROSYN) 1-08 tablet by [facility] 500 mg 00:00: mouth 2 [place] tablet 00 (two) Medical times Branch daily with meals. methocarbam 2020-04 Yes [id number] 500mg Take 1 [facility] 500 mg 1-08 tablet by [facility] tablet 00:00: mouth 4 [place] 00 (four) Medical times Branch daily as needed for Pain (scale 4-6). ondansetron 2020-04 Yes [id number] 4mg Take 1 [facility] (ZOFRAN 1-08 tablet by [facility] ODT) 4 mg 00:00: mouth [place] disintegrat 00 every 8 Medic al ing tablet (eight) Branch hours as needed for Nausea and Vomiting (N/V). meclizine 2020-04 Yes [id number] 25mg Take 1 [facility] 25 mg 1-08 tablet by [facility] tablet 00:00: mouth [place] 00 every 6 Medical (six) Branch hours. naproxen 2020-04 Yes [id number] 500mg Take 1 [facility] (NAPROSYN) 1-08 tablet by [facility] 500 mg 00:00: mouth 2 [place] tablet 00 (two) Medical times Branch daily with meals. methocarbam 2020-04 Yes [id number] 500mg Take 1 [facility] 500 mg 1-08 tablet by [facility] o [facility] tablet 00:00: mouth 4 [place] 00 (four) Medical times Branch daily as needed for Pain (scale 4-6). ondansetron 2020-04 Yes [id number] 4mg Take 1 [facility] (ZOFRAN 1-08 tablet by [facility] ODT) 4 mg 00:00: mouth [place] disintegrat 00 every 8 [facility] al ing tablet (eight) Branch hours as needed for Nausea and Vomiting (N/V). meclizine 2020-04 Yes [id number] 25mg Take 1 [facility] 25 mg 1-08 tablet by [facility] tablet 00:00: mouth [place] 00 every 6 Medical (six) Branch hours. naproxen 2020-04 Yes [id number] 500mg Take 1 [facility] (NAPROSYN) 1-08 tablet by [facility] 500 mg 00:00: mouth 2 [place] tablet 00 (two) Medical times Branch daily with meals. methocarbam 2020-04 Yes [id number] 500mg Take 1 [facility] 500 mg 1-08 tablet by [facility] o f tablet 00:00: mouth 4 [place] 00 (four) Medical times Branch daily as needed for Pain (scale 4-6). ondansetron 2020-04 Yes [id number] 4mg Take 1 [facility] (ZOFRAN 1-08 tablet by [facility] ODT) 4 mg 00:00: mouth [place] disintegrat 00 every 8 [facility] al ing tablet (eight) Branch hours as needed for Nausea and Vomiting (N/V). meclizine 2020-04 Yes [id number] 25mg Take 1 [facility] 25 mg 1-08 tablet by [facility] tablet 00:00: mouth [place] 00 every 6 Medical (six) Branch hours. naproxen 2020-04 Yes [id number] 500mg Take 1 [facility] (NAPROSYN) 1-08 tablet by [facility] 500 mg 00:00: mouth 2 [place] tablet 00 (two) Medical times Branch daily with meals. methocarbam 2020-04 Yes [id number] 500mg Take 1 [facility] 500 mg 1-08 tablet by [facility] o f tablet 00:00: mouth 4 [place] 00 (four) Medical times Branch daily as needed for Pain (scale 4-6). ondansetron 2020-04 Yes [id number] 4mg Take 1 [facility] (ZOFRAN 1-08 tablet by [facility] ODT) 4 mg 00:00: mouth [place] disintegrat 00 every 8 [facility] al ing tablet (eight) Branch hours as needed for Nausea and Vomiting (N/V). meclizine 2020-04 Yes [id number] 25mg Take 1 [facility] 25 mg 1-08 tablet by [facility] tablet 00:00: mouth [place] 00 every 6 Medical (six) Branch hours. naproxen 2020-04 Yes [id number] 500mg Take 1 [facility] (NAPROSYN) 1-08 tablet by [facility] 500 mg 00:00: mouth 2 [place] tablet 00 (two) Medical times Branch daily with meals. methocarbam 2020-04 Yes [id number] 500mg Take 1 [facility] 500 mg 1-08 tablet by [facility] o f tablet 00:00: mouth 4 [place] 00 (four) Medical times Branch daily as needed for Pain (scale 4-6). ondansetron 2020-04 Yes [id number] 4mg Take 1 [facility] (ZOFRAN 1-08 tablet by [facility] of ODT) 4 mg 00:00: mouth [place] disintegrat 00 every 8 [facility] al ing tablet (eight) Branch hours as needed for Nausea and Vomiting (N/V). meclizine 2020-04 Yes [id number] 25mg Take 1 [facility] 25 mg 1-08 tablet by [facility] tablet 00:00: mouth [place] 00 every 6 Medical (six) Branch hours. naproxen 2020-04 Yes [id number] 500mg Take 1 [facility] (NAPROSYN) 1-08 tablet by [facility] 500 mg 00:00: mouth 2 [place] tablet 00 (two) Medical times Branch daily with meals. methocarbam 2020-04 Yes [id number] 500mg Take 1 [facility] 500 mg 1-08 tablet by [facility] o f tablet 00:00: mouth 4 [place] 00 (four) Medical times Branch daily as needed for Pain (scale 4-6). ondansetron 2020-04 Yes [id number] 4mg Take 1 [facility] (ZOFRAN 1-08 tablet by [facility] ODT) 4 mg 00:00: mouth [place] disintegrat 00 every 8 [facility] al ing tablet (eight) Branch hours as needed for Nausea and Vomiting (N/V). meclizine 2020-04 Yes [id number] 25mg Take 1 [facility] 25 mg 1-08 tablet by [facility] tablet 00:00: mouth [place] 00 every 6 Medical (six) Branch hours. naproxen 2020-04 Yes [id number] 500mg Take 1 [facility] (NAPROSYN) 1-08 tablet by [facility] 500 mg 00:00: mouth 2 [place] tablet 00 (two) Medical times Branch daily with meals. methocarbam 2020-04 Yes [id number] 500mg Take 1 [facility] 500 mg 1-08 tablet by [facility] o f tablet 00:00: mouth 4 [place] 00 (four) Medical times Branch daily as needed for Pain (scale 4-6). ondansetron 2020-04 Yes [id number] 4mg Take 1 [facility] (ZOFRAN 1-08 tablet by [facility] ODT) 4 mg 00:00: mouth [place] disintegrat 00 every 8 [facility] al ing tablet (eight) Branch hours as needed for Nausea and Vomiting (N/V). meclizine 2020-04 Yes [id number] 25mg Take 1 [facility] 25 mg 1-08 tablet by [facility] tablet 00:00: mouth [place] 00 every 6 Medical (six) Branch hours. naproxen 2020-04 Yes [id number] 500mg Take 1 [facility] (NAPROSYN) 1-08 tablet by [facility] 500 mg 00:00: mouth 2 [place] tablet 00 (two) Medical times Branch daily with meals. methocarbam 2020-04 Yes [id number] 500mg Take 1 [facility] 500 mg 1-08 tablet by [facility] o f tablet 00:00: mouth 4 [place] 00 (four) Medical times Branch daily as needed for Pain (scale 4-6). ondansetron 2020-04 Yes [id number] 4mg Take 1 [facility] (ZOFRAN 1-08 tablet by [facility] ODT) 4 mg 00:00: mouth [place] disintegrat 00 every 8 Medic al ing tablet (eight) Branch hours as needed for Nausea and Vomiting (N/V). meclizine 2020-04 Yes [id number] 25mg Take 1 [facility] 25 mg 1-08 tablet by [facility] tablet 00:00: mouth [place] 00 every 6 Medical (six) Branch hours. naproxen 2020-04 Yes [id number] 500mg Take 1 [facility] (NAPROSYN) 1-08 tablet by [facility] 500 mg 00:00: mouth 2 [place] tablet 00 (two) Medical times Branch daily with meals. methocarbam 2020-04 Yes [id number] 500mg Take 1 [facility] 500 mg 1-08 tablet by [facility] o f tablet 00:00: mouth 4 [place] 00 (four) Medical times Branch daily as needed for Pain (scale 4-6). ondansetron 2020-04 Yes [id number] 4mg Take 1 [facility] (ZOFRAN 1-08 tablet by [facility] ODT) 4 mg 00:00: mouth [place] disintegrat 00 every 8 Medic al ing tablet (eight) Branch hours as needed for Nausea and Vomiting (N/V). meclizine 2020-04 Yes [id number] 25mg Take 1 [facility] 25 mg 1-08 tablet by [facility] tablet 00:00: mouth [place] 00 every 6 Medical (six) Branch hours. naproxen 2020-04 Yes [id number] 500mg Take 1 [facility] (NAPROSYN) 1-08 tablet by [facility] 500 mg 00:00: mouth 2 [place] tablet 00 (two) Medical times Branch daily with meals. methocarbam 2020-04 Yes [id number] 500mg Take 1 [facility] 500 mg 1-08 tablet by [facility] o f tablet 00:00: mouth 4 [place] 00 (four) Medical times Branch daily as needed for Pain (scale 4-6). ondansetron 2020-04 Yes [id number] 4mg Take 1 [facility] (ZOFRAN 1-08 tablet by [facility] ODT) 4 mg 00:00: mouth [place] disintegrat 00 every 8 Medic al ing tablet (eight) Branch hours as needed for Nausea and Vomiting (N/V). meclizine 2020-04 Yes [id number] 25mg Take 1 [facility] 25 mg 1-08 tablet by [facility] tablet 00:00: mouth [place] 00 every 6 Medical (six) Branch hours. naproxen 2020-04 Yes [id number] 500mg Take 1 [facility] (NAPROSYN) 1-08 tablet by [facility] 500 mg 00:00: mouth 2 [place] tablet 00 (two) Medical times Branch daily with meals. methocarbam 2020-04 Yes [id number] 500mg Take 1 [facility] 500 mg 1-08 tablet by [facility] o f tablet 00:00: mouth 4 [place] 00 (four) Medical times Branch daily as needed for Pain (scale 4-6). ondansetron 2020-04 Yes [id number] 4mg Take 1 [facility] (ZOFRAN 1-08 tablet by [facility] ODT) 4 mg 00:00: mouth [place] disintegrat 00 every 8 Medic al ing tablet (eight) Branch hours as needed for Nausea and Vomiting (N/V). meclizine 2020-04 Yes [id number] 25mg Take 1 [facility] 25 mg 1-08 tablet by [facility] tablet 00:00: mouth [place] 00 every 6 Medical (six) Branch hours. naproxen 2020-04 Yes [id number] 500mg Take 1 [facility] (NAPROSYN) 1-08 tablet by [facility] 500 mg 00:00: mouth 2 [place] tablet 00 (two) Medical times Branch daily with meals. methocarbam 2020-04 Yes [id number] 500mg Take 1 [facility] o[facility] 500 mg 1-08 tablet by [facility] o f tablet 00:00: mouth 4 [place] 00 (four) Medical times Branch daily as needed for Pain (scale 4-6). ondansetron 2020-04 Yes [id number] 4mg Take 1 [facility] (ZOFRAN 1-08 tablet by [facility] of ODT) 4 mg 00:00: mouth [place] disintegrat 00 every 8 Medic al ing tablet (eight) Branch hours as needed for Nausea and Vomiting (N/V). meclizine 2020-04 Yes [id number] 25mg Take 1 [facility] 25 mg 1-08 tablet by [facility] tablet 00:00: mouth [place] 00 every 6 Medical (six) Branch hours. naproxen 2020-04 Yes [id number] 500mg Take 1 [facility] (NAPROSYN) 1-08 tablet by [facility] 500 mg 00:00: mouth 2 [place] tablet 00 (two) Medical times Branch daily with meals. methocarbam 2020-04 Yes [id number] 500mg Take 1 [facility] o[facility] 500 mg 1-08 tablet by [facility] o f tablet 00:00: mouth 4 [place] 00 (four) Medical times Branch daily as needed for Pain (scale 4-6). ondansetron 2020-04 Yes [id number] 4mg Take 1 [facility] (ZOFRAN 1-08 tablet by [facility] of ODT) 4 mg 00:00: mouth [place] disintegrat 00 every 8 Medic al ing tablet (eight) Branch hours as needed for Nausea and Vomiting (N/V). meclizine 2020-04 Yes [id number] 25mg Take 1 [facility] 25 mg 1-08 tablet by [facility] tablet 00:00: mouth [place] 00 every 6 Medical (six) Branch hours. naproxen 2020-04 Yes [id number] 500mg Take 1 [facility] (NAPROSYN) 1-08 tablet by [facility] 500 mg 00:00: mouth 2 [place] tablet 00 (two) Medical times Branch daily with meals. methocarbam 2020-04 Yes [id number] 500mg Take 1 [facility] o[facility] 500 mg 1-08 tablet by [facility] o f tablet 00:00: mouth 4 [place] 00 (four) Medical times Branch daily as needed for Pain (scale 4-6). ondansetron 2020-04 Yes [id number] 4mg Take 1 [facility] (ZOFRAN 1-08 tablet by [facility] of ODT) 4 mg 00:00: mouth [place] disintegrat 00 every 8 Medic al ing tablet (eight) Branch hours as needed for Nausea and Vomiting (N/V). meclizine 2020-04 Yes [id number] 25mg Take 1 [facility] 25 mg 1-08 tablet by [facility] tablet 00:00: mouth [place] 00 every 6 Medical (six) Branch hours. naproxen 2020-04 Yes [id number] 500mg Take 1 [facility] (NAPROSYN) 1-08 tablet by [facility] 500 mg 00:00: mouth 2 [place] tablet 00 (two) Medical times Branch daily with meals. methocarbam 2020-04 Yes [id number] 500mg Take 1 [facility] o[facility] 500 mg 1-08 tablet by [facility] o f tablet 00:00: mouth 4 [place] 00 (four) Medical times Branch daily as needed for Pain (scale 4-6). ondansetron 2020-04 Yes [id number] 4mg Take 1 [facility] (ZOFRAN 1-08 tablet by [facility] of ODT) 4 mg 00:00: mouth [place] disintegrat 00 every 8 Medic al ing tablet (eight) Branch hours as needed for Nausea and Vomiting (N/V). meclizine 2020-04 Yes [id number] 25mg Take 1 [facility] 25 mg 1-08 tablet by [facility] tablet 00:00: mouth [place] 00 every 6 Medical (six) Branch hours. naproxen 2020-04 Yes [id number] 500mg Take 1 [facility] (NAPROSYN) 1-08 tablet by [facility] 500 mg 00:00: mouth 2 [place] tablet 00 (two) Medical times Branch daily with meals. methocarbam 2020-04 Yes [id number] 500mg Take 1 [facility] o[facility] 500 mg 1-08 tablet by [facility] o f tablet 00:00: mouth 4 [place] 00 (four) Medical times Branch daily as needed for Pain (scale 4-6). ondansetron 2020-04 Yes [id number] 4mg Take 1 [facility] (ZOFRAN 1-08 tablet by [facility] of ODT) 4 mg 00:00: mouth [place] disintegrat 00 every 8 Medic al ing tablet (eight) Branch hours as needed for Nausea and Vomiting (N/V). meclizine 2020-04 Yes [id number] 25mg Take 1 [facility] 25 mg 1-08 tablet by [facility] tablet 00:00: mouth [place] 00 every 6 Medical (six) Branch hours. naproxen 2020-04 Yes [id number] 500mg Take 1 [facility] (NAPROSYN) 1-08 tablet by [facility] 500 mg 00:00: mouth 2 [place] tablet 00 (two) Medical times Branch daily with meals. methocarbam 2020-04 Yes [id number] 500mg Take 1 [facility] o[facility] 500 mg 1-08 tablet by [facility] o f tablet 00:00: mouth 4 [place] 00 (four) Medical times Branch daily as needed for Pain (scale 4-6). ondansetron 2020-04 Yes [id number] 4mg Take 1 [facility] (ZOFRAN 1-08 tablet by [facility] of ODT) 4 mg 00:00: mouth [place] disintegrat 00 every 8 Medic al ing tablet (eight) Branch hours as needed for Nausea and Vomiting (N/V). meclizine 2020-04 Yes [id number] 25mg Take 1 [facility] 25 mg 1-08 tablet by [facility] tablet 00:00: mouth [place] 00 every 6 Medical (six) Branch hours. naproxen 2020-04 Yes [id number] 500mg Take 1 [facility] (NAPROSYN) 1-08 tablet by [facility] 500 mg 00:00: mouth 2 [place] tablet 00 (two) Medical times Branch daily with meals. methocarbam 2020-04 Yes [id number] 500mg Take 1 [facility] o[facility] 500 mg 1-08 tablet by [facility] o f tablet 00:00: mouth 4 [place] 00 (four) Medical times Branch daily as needed for Pain (scale 4-6). ondansetron 2020-04 Yes [id number] 4mg Take 1 [facility] (ZOFRAN 1-08 tablet by [facility] of ODT) 4 mg 00:00: mouth [place] disintegrat 00 every 8 Medic al ing tablet (eight) Branch hours as needed for Nausea and Vomiting (N/V). meclizine 2020-04 Yes [id number] 25mg Take 1 [facility] 25 mg 1-08 tablet by [facility] tablet 00:00: mouth [place] 00 every 6 Medical (six) Branch hours. naproxen 2020-04 Yes [id number] 500mg Take 1 [facility] (NAPROSYN) 1-08 tablet by [facility] 500 mg 00:00: mouth 2 [place] tablet 00 (two) Medical times Branch daily with meals. methocarbam 2020-04 Yes [id number] 500mg Take 1 [facility] o[facility] 500 mg 1-08 tablet by [facility] o f tablet 00:00: mouth 4 [place] 00 (four) Medical times Branch daily as needed for Pain (scale 4-6). ondansetron 2020-04 Yes [id number] 4mg Take 1 [facility] (ZOFRAN 1-08 tablet by [facility] of ODT) 4 mg 00:00: mouth [place] disintegrat 00 every 8 Medic al ing tablet (eight) Branch hours as needed for Nausea and Vomiting (N/V). meclizine 2020-04 Yes [id number] 25mg Take 1 [facility] 25 mg 1-08 tablet by [facility] tablet 00:00: mouth [place] 00 every 6 Medical (six) Branch hours. naproxen 2020-04 Yes [id number] 500mg Take 1 [facility] (NAPROSYN) 1-08 tablet by [facility] 500 mg 00:00: mouth 2 [place] tablet 00 (two) Medical times Branch daily with meals. methocarbam 2020-04 Yes [id number] 500mg Take 1 [facility] o[facility] 500 mg 1-08 tablet by [facility] o f tablet 00:00: mouth 4 [place] 00 (four) Medical times Branch daily as needed for Pain (scale 4-6). ondansetron 2020-04 Yes [id number] 4mg Take 1 [facility] (ZOFRAN 1-08 tablet by [facility] of ODT) 4 mg 00:00: mouth [place] disintegrat 00 every 8 Medic al ing tablet (eight) Branch hours as needed for Nausea and Vomiting (N/V). meclizine 2020-04 Yes [id number] 25mg Take 1 [facility] 25 mg 1-08 tablet by [facility] tablet 00:00: mouth [place] 00 every 6 Medical (six) Branch hours. naproxen 2020-04 Yes [id number] 500mg Take 1 [facility] (NAPROSYN) 1-08 tablet by [facility] 500 mg 00:00: mouth 2 [place] tablet 00 (two) Medical times Branch daily with meals. methocarbam 2020-04 Yes [id number] 500mg Take 1 [facility] o[facility] 500 mg 1-08 tablet by [facility] o f tablet 00:00: mouth 4 [place] 00 (four) Medical times Branch daily as needed for Pain (scale 4-6). ondansetron 2020-04 Yes [id number] 4mg Take 1 [facility] (ZOFRAN 1-08 tablet by [facility] of ODT) 4 mg 00:00: mouth [place] disintegrat 00 every 8 Medic al ing tablet (eight) Branch hours as needed for Nausea and Vomiting (N/V). meclizine 2020-04 Yes [id number] 25mg Take 1 [facility] 25 mg 1-08 tablet by [facility] tablet 00:00: mouth [place] 00 every 6 Medical (six) Branch hours. naproxen 2020-04 Yes [id number] 500mg Take 1 [facility] (NAPROSYN) 1-08 tablet by [facility] 500 mg 00:00: mouth 2 [place] tablet 00 (two) Medical times Branch daily with meals. methocarbam 2020-04 Yes [id number] 500mg Take 1 [facility] o[facility] 500 mg 1-08 tablet by [facility] o f tablet 00:00: mouth 4 [place] 00 (four) Medical times Branch daily as needed for Pain (scale 4-6). ondansetron 2020-04 Yes [id number] 4mg Take 1 [facility] (ZOFRAN 1-08 tablet by [facility] of ODT) 4 mg 00:00: mouth [place] disintegrat 00 every 8 Medic al ing tablet (eight) Branch hours as needed for Nausea and Vomiting (N/V). meclizine 2020-04 Yes [id number] 25mg Take 1 [facility] 25 mg 1-08 tablet by [facility] tablet 00:00: mouth [place] 00 every 6 Medical (six) Branch hours. naproxen 2020-04 Yes [id number] 500mg Take 1 [facility] (NAPROSYN) 1-08 tablet by [facility] 500 mg 00:00: mouth 2 [place] tablet 00 (two) Medical times Branch daily with meals. methocarbam 2020-04 Yes [id number] 500mg Take 1 [facility] o[facility] 500 mg 1-08 tablet by [facility] o f tablet 00:00: mouth 4 [place] 00 (four) Medical times Branch daily as needed for Pain (scale 4-6). ondansetron 2020-04 Yes [id number] 4mg Take 1 [facility] (ZOFRAN 1-08 tablet by [facility] of ODT) 4 mg 00:00: mouth [place] disintegrat 00 every 8 Medic al ing tablet (eight) Branch hours as needed for Nausea and Vomiting (N/V). meclizine 2020-04 Yes [id number] 25mg Take 1 [facility] 25 mg 1-08 tablet by [facility] tablet 00:00: mouth [place] 00 every 6 Medical (six) Branch hours. naproxen 2020-04 Yes [id number] 500mg Take 1 [facility] (NAPROSYN) 1-08 tablet by [facility] 500 mg 00:00: mouth 2 [place] tablet 00 (two) Medical times Branch daily with meals. methocarbam 2020-04 Yes [id number] 500mg Take 1 [facility] o[facility] 500 mg 1-08 tablet by [facility] o f tablet 00:00: mouth 4 [place] 00 (four) Medical times Branch daily as needed for Pain (scale 4-6). ondansetron 2020-04 Yes [id number] 4mg Take 1 [facility] (ZOFRAN 1-08 tablet by [facility] of ODT) 4 mg 00:00: mouth [place] disintegrat 00 every 8 Medic al ing tablet (eight) Branch hours as needed for Nausea and Vomiting (N/V). meclizine 2020-04 Yes [id number] 25mg Take 1 [facility] 25 mg 1-08 tablet by [facility] tablet 00:00: mouth [place] 00 every 6 Medical (six) Branch hours. naproxen 2020-04 Yes [id number] 500mg Take 1 [facility] (NAPROSYN) 1-08 tablet by [facility] 500 mg 00:00: mouth 2 [place] tablet 00 (two) Medical times Branch daily with meals. methocarbam 2020-04 Yes [id number] 500mg Take 1 [facility] o[facility] 500 mg 1-08 tablet by [facility] o f tablet 00:00: mouth 4 [place] 00 (four) Medical times Branch daily as needed for Pain (scale 4-6). ondansetron 2020-04 Yes [id number] 4mg Take 1 [facility] (ZOFRAN 1-08 tablet by [facility] of ODT) 4 mg 00:00: mouth [place] disintegrat 00 every 8 Medic al ing tablet (eight) Branch hours as needed for Nausea and Vomiting (N/V). meclizine 2020-04 Yes [id number] 25mg Take 1 [facility] 25 mg 1-08 tablet by [facility] tablet 00:00: mouth [place] 00 every 6 Medical (six) Branch hours. naproxen 2020-04 Yes [id number] 500mg Take 1 [facility] (NAPROSYN) 1-08 tablet by [facility] 500 mg 00:00: mouth 2 [place] tablet 00 (two) Medical times Branch daily with meals. methocarbam 2020-04 Yes [id number] 500mg Take 1 [facility] o[facility] 500 mg 1-08 tablet by [facility] o f tablet 00:00: mouth 4 [place] 00 (four) Medical times Branch daily as needed for Pain (scale 4-6). ondansetron 2020-04 Yes [id number] 4mg Take 1 [facility] (ZOFRAN 1-08 tablet by [facility] of ODT) 4 mg 00:00: mouth [place] disintegrat 00 every 8 Medic al ing tablet (eight) Branch hours as needed for Nausea and Vomiting (N/V). meclizine 2020-04 Yes [id number] 25mg Take 1 [facility] 25 mg 1-08 tablet by [facility] tablet 00:00: mouth [place] 00 every 6 Medical (six) Branch hours. naproxen 2020-04 Yes [id number] 500mg Take 1 [facility] (NAPROSYN) 1-08 tablet by [facility] 500 mg 00:00: mouth 2 [place] tablet 00 (two) Medical times Branch daily with meals. methocarbam 2020-04 Yes [id number] 500mg Take 1 [facility] o[facility] 500 mg 1-08 tablet by [facility] o f tablet 00:00: mouth 4 [place] 00 (four) Medical times Branch daily as needed for Pain (scale 4-6). ondansetron 2020-04 Yes [id number] 4mg Take 1 [facility] (ZOFRAN 1-08 tablet by [facility] of ODT) 4 mg 00:00: mouth [place] disintegrat 00 every 8 Medic al ing tablet (eight) Branch hours as needed for Nausea and Vomiting (N/V). meclizine 2020-04 Yes [id number] 25mg Take 1 [facility] 25 mg 1-08 tablet by [facility] tablet 00:00: mouth [place] 00 every 6 Medical (six) Branch hours. naproxen 2020-04 Yes [id number] 500mg Take 1 [facility] (NAPROSYN) 1-08 tablet by [facility] 500 mg 00:00: mouth 2 [place] tablet 00 (two) Medical times Branch daily with meals. methocarbam 2020-04 Yes [id number] 500mg Take 1 [facility] o[facility] 500 mg 1-08 tablet by [facility] o f tablet 00:00: mouth 4 [place] 00 (four) Medical times Branch daily as needed for Pain (scale 4-6). ondansetron 2020-04 Yes [id number] 4mg Take 1 [facility] (ZOFRAN 1-08 tablet by [facility] of ODT) 4 mg 00:00: mouth [place] disintegrat 00 every 8 Medic al ing tablet (eight) Branch hours as needed for Nausea and Vomiting (N/V). meclizine 2020-04 Yes [id number] 25mg Take 1 [facility] 25 mg 1-08 tablet by [facility] tablet 00:00: mouth [place] 00 every 6 Medical (six) Branch hours. naproxen 2020-04 Yes [id number] 500mg Take 1 [facility] (NAPROSYN) 1-08 tablet by [facility] 500 mg 00:00: mouth 2 [place] tablet 00 (two) Medical times Branch daily with meals. methocarbam 2020-04 Yes [id number] 500mg Take 1 [facility] o[facility] 500 mg 1-08 tablet by [facility] o f tablet 00:00: mouth 4 [place] 00 (four) Medical times Branch daily as needed for Pain (scale 4-6). ondansetron 2020-04 Yes [id number] 4mg Take 1 [facility] (ZOFRAN 1-08 tablet by [facility] of ODT) 4 mg 00:00: mouth [place] disintegrat 00 every 8 Medic al ing tablet (eight) Branch hours as needed for Nausea and Vomiting (N/V). meclizine 2020-04 Yes [id number] 25mg Take 1 [facility] 25 mg 1-08 tablet by [facility] tablet 00:00: mouth [place] 00 every 6 Medical (six) Branch hours. naproxen 2020-04 Yes [id number] 500mg Take 1 [facility] (NAPROSYN) 1-08 tablet by [facility] 500 mg 00:00: mouth 2 [place] tablet 00 (two) Medical times Branch daily with meals. methocarbam 2020-04 Yes [id number] 500mg Take 1 [facility] o[facility] 500 mg 1-08 tablet by [facility] o f tablet 00:00: mouth 4 [place] 00 (four) Medical times Branch daily as needed for Pain (scale 4-6). ondansetron 2020-04 Yes [id number] 4mg Take 1 [facility] (ZOFRAN 1-08 tablet by [facility] of ODT) 4 mg 00:00: mouth [place] disintegrat 00 every 8 Medic al ing tablet (eight) Branch hours as needed for Nausea and Vomiting (N/V). meclizine 2020-04 Yes [id number] 25mg Take 1 [facility] 25 mg 1-08 tablet by [facility] tablet 00:00: mouth [place] 00 every 6 Medical (six) Branch hours. naproxen 2020-04 Yes [id number] 500mg Take 1 [facility] (NAPROSYN) 1-08 tablet by [facility] 500 mg 00:00: mouth 2 [place] tablet 00 (two) Medical times Branch daily with meals. methocarbam 2020-04 Yes [id number] 500mg Take 1 [facility] o[facility] 500 mg 1-08 tablet by [facility] o f tablet 00:00: mouth 4 [place] 00 (four) Medical times Branch daily as needed for Pain (scale 4-6). ondansetron 2020-04 Yes [id number] 4mg Take 1 [facility] (ZOFRAN 1-08 tablet by [facility] of ODT) 4 mg 00:00: mouth [place] disintegrat 00 every 8 Medic al ing tablet (eight) Branch hours as needed for Nausea and Vomiting (N/V). meclizine 2020-04 Yes [id number] 25mg Take 1 [facility] 25 mg 1-08 tablet by [facility] tablet 00:00: mouth [place] 00 every 6 Medical (six) Branch hours. naproxen 2020-04 Yes [id number] 500mg Take 1 [facility] (NAPROSYN) 1-08 tablet by [facility] 500 mg 00:00: mouth 2 [place] tablet 00 (two) Medical times Branch daily with meals. methocarbam 2020-04 Yes [id number] 500mg Take 1 [facility] o[facility] 500 mg 1-08 tablet by [facility] o f tablet 00:00: mouth 4 [place] 00 (four) Medical times Branch daily as needed for Pain (scale 4-6). ondansetron 2020-04 Yes [id number] 4mg Take 1 [facility] (ZOFRAN 1-08 tablet by [facility] of ODT) 4 mg 00:00: mouth [place] disintegrat 00 every 8 Medic al ing tablet (eight) Branch hours as needed for Nausea and Vomiting (N/V). meclizine 2020-04 Yes [id number] 25mg Take 1 [facility] 25 mg 1-08 tablet by [facility] tablet 00:00: mouth [place] 00 every 6 Medical (six) Branch hours. naproxen 2020-04 Yes [id number] 500mg Take 1 [facility] (NAPROSYN) 1-08 tablet by [facility] of 500 mg 00:00: mouth 2 [place] tablet 00 (two) Medical times Branch daily with meals. methocarbam 2020-04 Yes [id number] 500mg Take 1 [facility] o[facility] 500 mg 1-08 tablet by [facility] o f tablet 00:00: mouth 4 [place] 00 (four) Medical times Branch daily as needed for Pain (scale 4-6). ondansetron 2020-04 Yes [id number] 4mg Take 1 [facility] (ZOFRAN 1-08 tablet by [facility] of ODT) 4 mg 00:00: mouth [place] disintegrat 00 every 8 Medic al ing tablet (eight) Branch hours as needed for Nausea and Vomiting (N/V). meclizine 2020-04 Yes [id number] 25mg Take 1 [facility] 25 mg 1-08 tablet by [facility] tablet 00:00: mouth [place] 00 every 6 Medical (six) Branch hours. naproxen 2020-04 Yes [id number] 500mg Take 1 [facility] (NAPROSYN) 1-08 tablet by [facility] 500 mg 00:00: mouth 2 [place] tablet 00 (two) Medical times Branch daily with meals. methocarbam 2020-04 Yes [id number] 500mg Take 1 [facility] o[facility] 500 mg 1-08 tablet by [facility] o f tablet 00:00: mouth 4 [place] 00 (four) Medical times Branch daily as needed for Pain (scale 4-6). ondansetron 2020-04 Yes [id number] 4mg Take 1 Univers (ZOFRAN 1-08 tablet by ity of ODT) 4 mg 00:00: mouth [place] disintegrat 00 every 8 Medic al ing tablet (eight) Branch hours as needed for Nausea and Vomiting (N/V). meclizine 2020-04 Yes [id number] 25mg Take 1 Un vale 25 mg 1-08 tablet by ity of tablet 00:00: mouth [place] 00 every 6 Medical (six) Branch hours. naproxen 2020-04 Yes [id number] 500mg Take 1 Un vale (NAPROSYN) 1-08 tablet by ity of 500 mg 00:00: mouth 2 [place] tablet 00 (two) Medical times Branch daily with meals. methocarbam 2020-04 Yes [id number] 500mg Take 1 Univers oL 500 mg 1-08 tablet by ity o f tablet 00:00: mouth 4 [place] 00 (four) Medical times Branch daily as needed for Pain (scale 4-6). ondansetron 2020-04 Yes [id number] 4mg Take 1 Univers (ZOFRAN 1-08 tablet by ity of ODT) 4 mg 00:00: mouth [place] disintegrat 00 every 8 Medic al ing tablet (eight) Branch hours as needed for Nausea and Vomiting (N/V). meclizine 2020-04 Yes [id number] 25mg Take 1 Un vale 25 mg 1-08 tablet by ity of tablet 00:00: mouth [place] 00 every 6 Medical (six) Branch hours. naproxen 2020-04 Yes [id number] 500mg Take 1 Un vale (NAPROSYN) 1-08 tablet by ity of 500 mg 00:00: mouth 2 [place] tablet 00 (two) Medical times Branch daily with meals. methocarbam 2020-04 Yes [id number] 500mg Take 1 Univers oL 500 mg 1-08 tablet by ity o f tablet 00:00: mouth 4 [place] 00 (four) Medical times Branch daily as needed for Pain (scale 4-6). ondansetron 2020-04 Yes [id number] 4mg Take 1 Univers (ZOFRAN 1-08 tablet by ity of ODT) 4 mg 00:00: mouth [place] disintegrat 00 every 8 Medic al ing tablet (eight) Branch hours as needed for Nausea and Vomiting (N/V). meclizine 2020-04 Yes [id number] 25mg Take 1 Un vale 25 mg 1-08 tablet by ity of tablet 00:00: mouth [place] 00 every 6 Medical (six) Branch hours. naproxen 2020-04 Yes [id number] 500mg Take 1 Un vale (NAPROSYN) 1-08 tablet by ity of 500 mg 00:00: mouth 2 [place] tablet 00 (two) Medical times Branch daily with meals. methocarbam 2020-04 Yes [id number] 500mg Take 1 Univers oL 500 mg 1-08 tablet by ity o f tablet 00:00: mouth 4 [place] 00 (four) Medical times Branch daily as needed for Pain (scale 4-6). ondansetron 2020-04 Yes [id number] 4mg Take 1 Univers (ZOFRAN 1-08 tablet by ity of ODT) 4 mg 00:00: mouth [place] disintegrat 00 every 8 Medic al ing tablet (eight) Branch hours as needed for Nausea and Vomiting (N/V). meclizine 2020-04 Yes [id number] 25mg Take 1 Un vale 25 mg 1-08 tablet by ity of tablet 00:00: mouth [place] 00 every 6 Medical (six) Branch hours. naproxen 2020-04 Yes [id number] 500mg Take 1 Un vale (NAPROSYN) 1-08 tablet by ity of 500 mg 00:00: mouth 2 [place] tablet 00 (two) Medical times Branch daily with meals. methocarbam 2020-04 Yes [id number] 500mg Take 1 Univers oL 500 mg 1-08 tablet by ity o f tablet 00:00: mouth 4 [place] 00 (four) Medical times Branch daily as needed for Pain (scale 4-6). ondansetron 2020-04 Yes [id number] 4mg Take 1 Univers (ZOFRAN 1-08 tablet by ity of ODT) 4 mg 00:00: mouth [place] disintegrat 00 every 8 Medic al ing tablet (eight) Branch hours as needed for Nausea and Vomiting (N/V). meclizine 2020-04 Yes [id number] 25mg Take 1 Un vale 25 mg 1-08 tablet by ity of tablet 00:00: mouth [place] 00 every 6 Medical (six) Branch hours. naproxen 2020-04 Yes [id number] 500mg Take 1 Un vale (NAPROSYN) 1-08 tablet by ity of 500 mg 00:00: mouth 2 [place] tablet 00 (two) Medical times Branch daily with meals. methocarbam 2020-04 Yes [id number] 500mg Take 1 Univers oL 500 mg 1-08 tablet by ity o f tablet 00:00: mouth 4 [place] 00 (four) Medical times Branch daily as needed for Pain (scale 4-6). HYDROCHLORO 2020-04 Yes 10mg Take 10 mg Univers THIAZIDE 0-26 by mouth ity of ORAL 08:48: daily. [address] pregabalin 2020-04 Yes Take by [facility] [place] ers (LYRICA 0-26 mouth ity of ORAL) 08:48: daily. [address] montelukast 2020-04 Yes 10mg Take 10 mg Univers 10 mg 0-26 by mouth ity of tablet 08:48: daily. [address] HYDROCHLORO 2020-04 Yes 10mg Take 10 mg Univers THIAZIDE 0-26 by mouth ity of ORAL 08:48: daily. [address] pregabalin 2020-04 Yes Take by Univ ers (LYRICA 0-26 mouth ity of ORAL) 08:48: daily. [address] montelukast 2020-04 Yes 10mg Take 10 mg Univers 10 mg 0-26 by mouth ity of tablet 08:48: daily. [address] HYDROCHLORO 2020-04 Yes 10mg Take 10 mg Univers THIAZIDE 0-26 by mouth ity of ORAL 08:48: daily. [address] pregabalin 2020-04 Yes Take by Univ ers (LYRICA 0-26 mouth ity of ORAL) 08:48: daily. [address] montelukast 2020-04 Yes 10mg Take 10 mg Univers 10 mg 0-26 by mouth ity of tablet 08:48: daily. [address] HYDROCHLORO 2020-04 Yes 10mg Take 10 mg Univers THIAZIDE 0-26 by mouth ity of ORAL 08:48: daily. [address] pregabalin 2020-04 Yes Take by Univ ers (LYRICA 0-26 mouth ity of ORAL) 08:48: daily. [address] montelukast 2020-04 Yes 10mg Take 10 mg Univers 10 mg 0-26 by mouth ity of tablet 08:48: daily. [address] HYDROCHLORO 2020-04 Yes 10mg Take 10 mg Univers THIAZIDE 0-26 by mouth ity of ORAL 08:48: daily. [address] pregabalin 2020-04 Yes Take by Univ ers (LYRICA 0-26 mouth ity of ORAL) 08:48: daily. [address] montelukast 2020-04 Yes 10mg Take 10 mg Univers 10 mg 0-26 by mouth ity of tablet 08:48: daily. [address] HYDROCHLORO 2020-04 Yes 10mg Take 10 mg Univers THIAZIDE 0-26 by mouth ity of ORAL 08:48: daily. [address] pregabalin 2020-04 Yes Take by Univ ers (LYRICA 0-26 mouth ity of ORAL) 08:48: daily. [address] montelukast 2020-04 Yes 10mg Take 10 mg Univers 10 mg 0-26 by mouth ity of tablet 08:48: daily. [address] HYDROCHLORO 2020-04 Yes 10mg Take 10 mg Univers THIAZIDE 0-26 by mouth ity of ORAL 08:48: daily. [address] pregabalin 2020-04 Yes Take by Univ ers (LYRICA 0-26 mouth ity of ORAL) 08:48: daily. [address] montelukast 2020-04 Yes 10mg Take 10 mg Univers 10 mg 0-26 by mouth ity of tablet 08:48: daily. [address] HYDROCHLORO 2020-04 Yes 10mg Take 10 mg Univers THIAZIDE 0-26 by mouth ity of ORAL 08:48: daily. [address] pregabalin 2020-04 Yes Take by [employer] ers (LYRICA 0-26 mouth ity of ORAL) 08:48: daily. [address] montelukast 2020-04 Yes 10mg Take 10 mg Univers 10 mg 0-26 by mouth ity of tablet 08:48: daily. [address] HYDROCHLORO 2020-04 Yes 10mg Take 10 mg Univers THIAZIDE 0-26 by mouth ity of ORAL 08:48: daily. [address] pregabalin 2020-04 Yes Take by [employer] ers (LYRICA 0-26 mouth ity of ORAL) 08:48: daily. [address] montelukast 2020-04 Yes 10mg Take 10 mg Univers 10 mg 0-26 by mouth ity of tablet 08:48: daily. [address] HYDROCHLORO 2020-04 Yes 10mg Take 10 mg Univers THIAZIDE 0-26 by mouth ity of ORAL 08:48: daily. [address] pregabalin 2020-04 Yes Take by [employer] ers (LYRICA 0-26 mouth ity of ORAL) 08:48: daily. [address] montelukast 2020-04 Yes 10mg Take 10 mg Univers 10 mg 0-26 by mouth ity of tablet 08:48: daily. [address] HYDROCHLORO 2020-04 Yes 10mg Take 10 mg Univers THIAZIDE 0-26 by mouth ity of ORAL 08:48: daily. [address] pregabalin 2020-04 Yes Take by Univ ers (LYRICA 0-26 mouth ity of ORAL) 08:48: daily. [address] montelukast 2020-04 Yes 10mg Take 10 mg Univers 10 mg 0-26 by mouth ity of tablet 08:48: daily. [address] HYDROCHLORO 2020-04 Yes 10mg Take 10 mg Univers THIAZIDE 0-26 by mouth ity of ORAL 08:48: daily. [address] pregabalin 2020-04 Yes Take by Univ ers (LYRICA 0-26 mouth ity of ORAL) 08:48: daily. [address] montelukast 2020-04 Yes 10mg Take 10 mg Univers 10 mg 0-26 by mouth ity of tablet 08:48: daily. [address] HYDROCHLORO 2020-04 Yes 10mg Take 10 mg Univers THIAZIDE 0-26 by mouth ity of ORAL 08:48: daily. [address] pregabalin 2020-04 Yes Take by Univ ers (LYRICA 0-26 mouth ity of ORAL) 08:48: daily. [address] montelukast 2020-04 Yes 10mg Take 10 mg Univers 10 mg 0-26 by mouth ity of tablet 08:48: daily. [address] HYDROCHLORO 2020-04 Yes 10mg Take 10 mg Univers THIAZIDE 0-26 by mouth ity of ORAL 08:48: daily. [address] pregabalin 2020-04 Yes Take by Univ ers (LYRICA 0-26 mouth ity of ORAL) 08:48: daily. [address] montelukast 2020-04 Yes 10mg Take 10 mg Univers 10 mg 0-26 by mouth ity of tablet 08:48: daily. [address] HYDROCHLORO 2020-04 Yes 10mg Take 10 mg Univers THIAZIDE 0-26 by mouth ity of ORAL 08:48: daily. [address] pregabalin 2020-04 Yes Take by Univ ers (LYRICA 0-26 mouth ity of ORAL) 08:48: daily. [address] montelukast 2020-04 Yes 10mg Take 10 mg Univers 10 mg 0-26 by mouth ity of tablet 08:48: daily. [address] HYDROCHLORO 2020-04 Yes 10mg Take 10 mg Univers THIAZIDE 0-26 by mouth ity of ORAL 08:48: daily. [address] pregabalin 2020-04 Yes Take by [facility] [place] ers (LYRICA 0-26 mouth ity of ORAL) 08:48: daily. [address] montelukast 2020-04 Yes 10mg Take 10 mg Univers 10 mg 0-26 by mouth ity of tablet 08:48: daily. [address] HYDROCHLORO 2020-04 Yes 10mg Take 10 mg Univers THIAZIDE 0-26 by mouth ity of ORAL 08:48: daily. [address] pregabalin 2020-04 Yes Take by [facility] [place] ers (LYRICA 0-26 mouth ity of ORAL) 08:48: daily. [address] montelukast 2020-04 Yes 10mg Take 10 mg Univers 10 mg 0-26 by mouth ity of tablet 08:48: daily. [address] Lyrica 75 Lyrica 75 2020-0 No 1{capsu [...] Q.5D Take 10 mg [facility] (INDERAL) 5-[address] 10 MG 00:00: 00:00 (two) [facility]osp[facility] tablet 00 :00 times a l day. propranoloL 2020-0 2021- No 10mg Q.5D Take 10 mg [facility] (INDERAL) 08-09-[address] 10 MG 00:00: 00:00 (two) Hospita tablet 00 :00 times a l day. propranoloL 2021- No 10mg Q.5D Take 10 mg [facility] (INDERAL) 508 06-[address] 10 MG 00:00: 00:00 (two) Hospita tablet 00 :00 times a l day. propranoloL 0 2021- No 10mg Q.5D Take 10 mg [facility] (INDERAL) 5-08 06-[address] 10 MG 00:00: 00:00 (two) Hospita tablet 00 :00 times a l day. methIMAzole 2019-04 Yes 10mg Take 1 Univ ers 10 mg 2-29 tablet by ity of tablet 00:00: mouth. [place] 00 Medical Branch methIMAzole 2019- Yes 10mg Take 1 Univ ers 10 mg 2-29 tablet by ity of tablet 00:00: mouth. [place] 00 Medical Branch methIMAzole 2019-04 Yes 10mg Take 1 Univ ers 10 mg 2-29 tablet by ity of tablet 00:00: mouth. [place] 00 [facility] Branch methIMAzole 2019-04 Yes 10mg Take 1 Univ ers 10 mg 2-29 tablet by ity of tablet 00:00: mouth. [place] 00 Medical Branch methIMAzole 2019-04- No 10mg Take 1 Uni vers 10 mg 2-29 12-14 tablet by ity of tablet 00:00: 00:00 mouth. [place] 00 :00 Medical Branch methIMAzole 2019-2021- No 10mg Take 1 Uni vers 10 mg 2-29 12-14 tablet by ity of tablet 00:00: 00:00 mouth. [place] 00 :00 Medical Branch Propranolol Propranolol 2019-0 Yes Manjinder 1 tablet Common HCl HCl 9-10 [place] [facility] 00:00: - [facility] 00 [facility] Ondansetron Ondansetron 2020-0 Yes Manjinder 1 tablet Common 8-18 [place] [facility] 00:00: tongue and - [facility] [address] [facility] 30 minutes Medical prior to Center [...] 00 pregabalin 2020-0 Yes 75mg QD Take 1 Metho di (LYRICA) 75 6-[address] MG capsule 00:00: (75 mg Hospi ta 00 total) by l mouth daily. (per [facility] on Drug Monitoring [facility], last filled 07/12/2022 , quantity: 30, day supply: 30) pregabalin 2020-0 Yes 75mg QD Take 75 [...] 30) montelukast 2020-0 Yes 10mg QD Take 1 Meth shay (SINGULAIR) 4-01 tablet (10 st 10 mg 00:00: mg total) Hospita tablet 00 by mouth l daily. montelukast 2020-0 Yes 10mg QD Take 10 [...] tablet 00 by mouth l daily. SUMAtriptan 2012- Yes 50mg Take 1 Meth shay (IMITREX) 5-01 tablet (50 st 50 MG 00:00: mg total) Hospita tablet 00 by mouth l once as needed for migraine. May repeat in 2 hours if unresolved . Do not exceed 200 mg in 24 hours. SUMAtriptan 2012- Yes 50mg Take 50 mg [facility] (IMITREX) [...] 24 hours. SUMAtriptan 2012-0 Yes 50mg Take 1 Meth shay (IMITREX) 5-01 tablet (50 st 50 MG 00:00: mg total) Hospita tablet 00 by mouth l once as needed for migraine. May repeat in 2 hours if unresolved . Do not exceed 200 mg in 24 hours. [place] Arzate Yes Manjinder 1 tablet Commo n [place] at bedtime [facility] as needed - [facility] Sumatriptan Sumatriptan Yes Manjinder 1 tablet Common Succinate Succinate [place] as needed [facility] Methimazole Methimazole Yes Manjinder 3 tablet Common [place] [facility] Montelukast Montelukast Yes Manjinder 1 tablet Common Sodium Sodium [place] [facility] Lyrica Lyrica Yes Manjinder 1 capsule Comm on [place] [facility] Hydrochloro Hydrochloro Yes Manjinder 1 tablet Common thiazide thiazide [place] in [facility] it morning [facility] SUMAtriptan SUMAtriptan No SUMAtripta Succinate [...] y of Vaccine Quad .5 mL 00:00:00 [place] [facility] 6+ MO Branch Influenza Virus 2020-04-01 Completed Universit y of Vaccine Quad .5 mL 00:00:00 [facility] 6+ MO Branch Influenza Virus 2020-04-01 Completed Universit y of Vaccine Quad .5 mL 00:00:00 [facility] 6+ MO Branch Influenza Virus 2020-04-01 Completed Universit y of Vaccine Quad .5 mL 00:00:00 [facility] 6+ MO Branch Influenza Virus 2020-04-01 Completed Universit y of Vaccine Quad .5 mL 00:00:00 [facility] 6+ MO Branch Influenza Virus 2020-04-01 Completed Universit y of Vaccine Quad .5 mL 00:00:00 [facility] 6+ MO Branch Influenza Virus 2020-04-01 Completed Universit y of Vaccine Quad .5 mL 00:00:00 [place] [facility] 6+ MO Branch Influenza Virus 2020-04-01 Completed Universit y of Vaccine [facility] .5 mL 00:00:00 [place] [facility] 6+ MO Branch Influenza Virus 2020-04-01 Completed Universit y of Vaccine [facility] .5 mL 00:00:00 [place] [facility] 6+ MO Branch Influenza Virus 2020-04-01 Completed Universit y of Vaccine Quad .5 mL 00:00:00 [facility] 6+ MO Branch Influenza Virus 2020-04-01 Completed Universit y of Vaccine Quad .5 mL 00:00:00 [facility] 6+ MO Branch Influenza Virus 2020-04-01 Completed Universit y of Vaccine Quad .5 mL 00:00:00 [facility] 6+ MO Branch Influenza Virus 2020-04-01 Completed [...] y of Vaccine Quad .5 mL 00:00:00 [place] [facility] IM 6+ MO Branch TDAP (ADACEL) 2019-10-03 Completed University of VACCINE 00:00:00 [facility] TDAP (ADACEL) 2019-10-03 Completed University of VACCINE 00:00:00 [facility] TDAP (ADACEL) 2019-10-03 Completed University of VACCINE 00:00:00 [facility] TDAP (ADACEL) 2019-10-03 Completed University of VACCINE 00:00:00 [facility] TDAP (ADACEL) 2019-10-03 Completed University of VACCINE 00:00:00 [facility] TDAP (ADACEL) 2019-10-03 Completed University of [...] (ADACEL) 2019-10-03 Completed University of VACCINE 00:00:00 [place] [facility] TDAP (ADACEL) 2019-10-03 Completed University of VACCINE 00:00:00 [facility] Branch TDAP (ADACEL) 2019-10-03 Completed University of VACCINE 00:00:00 [facility] Branch TDAP (ADACEL) 2019-10-03 Completed University of VACCINE 00:00:00 [place] [facility] TDAP (ADACEL) 2019-10-03 Completed University of VACCINE 00:00:00 [place] [facility] TDAP (ADACEL) 2019-10-03 Completed University of VACCINE 00:00:00 [place] [facility] TDAP (ADACEL) 2019-10-03 Completed University of VACCINE 00:00:00 [place] [facility] TDAP (ADACEL) 2019-10-03 Completed University [...] (ADACEL) 2019-10-03 Completed University of VACCINE 00:00:00 [place] [facility] TDAP (ADACEL) 2019-10-03 Completed University of VACCINE 00:00:00 [place] [facility] TDAP (ADACEL) 2019-10-03 Completed University of VACCINE 00:00:00 [facility] Branch TDAP (ADACEL) 2019-10-03 Completed University of VACCINE 00:00:00 [facility] Branch TDAP (ADACEL) 2019-10-03 Completed University of VACCINE 00:00:00 [place] [facility] TDAP (ADACEL) 2019-10-03 Completed University of VACCINE 00:00:00 [facility] Branch TDAP (ADACEL) 2019-10-03 Completed University of VACCINE 00:00:00 [facility] Branch TDAP (ADACEL) 2019-10-03 Completed University of VACCINE 00:00:00 [facility] Branch TDAP (ADACEL) 2019-10-03 Completed University of VACCINE 00:00:00 [facility] Branch TDAP (ADACEL) 2019-10-03 Completed University of VACCINE 00:00:00 [facility] Branch TDAP (ADACEL) 2019-10-03 Completed University of VACCINE 00:00:00 [facility] Branch TDAP (ADACEL) 2019-10-03 Completed University of VACCINE 00:00:00 [facility] Branch TDAP (ADACEL) 2019-10-03 Completed University of VACCINE 00:00:00 [facility] Branch TDAP (ADACEL) 2019-10-03 Completed University of VACCINE 00:00:00 [facility] Branch TDAP (ADACEL) 2019-10-03 Completed University of VACCINE 00:00:00 [facility] Vital Signs Vital Name Observation Time Observation Value Comments Source Systolic blood 2022-07-22 13:31:00 130 mm[Hg] Univer sity of pressure [facility] Diastolic blood 2022-07-22 13:31:00 84 mm[Hg] Unive rsity of pressure [facility] Heart rate 2022-07-22 13:31:00 104 /min [facility] Body temperature 2022-07-22 13:31:00 36.11 Tegan [facility] [place] [facility] 2022-07-22 13:31:00 18 /min [facility] [place] [facility] height 2022-07-22 13:31:00 162.6 cm [facility] Body weight 2022-07-22 13:31:00 132.904 kg [facility] [place] [facility] BMI 2022-07-22 13:31:00 50.29 kg/m2 [facility] [place] [facility] Oxygen saturation in 2022-07-22 13:31:00 96 /min University of Arterial blood by [facility] Pulse oximetry Branch Systolic blood 2022-07-02 22:30:00 153 mm[Hg] Univer sity of pressure [place] [facility] Diastolic blood 2022-07-02 22:30:00 86 mm[Hg] Unive rsity of pressure [place] [facility] Respiratory rate 2022-07-02 22:30:00 22 /min Univ ersity [facility] [place] [facility] Oxygen saturation in 2022-07-02 22:30:00 96 /min University of Arterial blood by [facility] Pulse oximetry Branch Body height 2022-07-02 16:34:00 162.6 cm [facility] [place] [facility] Body weight 2022-07-02 16:34:00 133.811 kg [facility] [place] [facility] BMI 2022-07-02 16:34:00 50.64 kg/m2 [facility] [place] [facility] Systolic blood 2022-07-02 19:43:00 134 mm[Hg] Univer sity of pressure [place] [facility] Diastolic blood 2022-07-02 19:43:00 74 mm[Hg] Unive rsity of pressure [place] [facility] Respiratory rate 2022-07-02 19:43:00 25 /min Univ ersity of [place] [facility] Oxygen saturation in 2022-07-02 19:43:00 95 /min University of Arterial blood by [facility] Pulse oximetry Branch Body height 2022-07-02 16:34:00 162.6 cm [facility] [place] [facility] Body weight 2022-07-02 16:34:00 133.811 kg [facility] [place] [facility] BMI 2022-07-02 16:34:00 50.64 kg/m2 [facility] [place] [facility] Systolic blood 2022-06-09 14:41:00 129 mm[Hg] Univer sity of pressure [place] [facility] Diastolic blood 2022-06-09 14:41:00 74 mm[Hg] Unive rsity of pressure [place] [facility] Heart rate 2022-06-09 14:41:00 82 /min [facility] [place] [facility] Body temperature 2022-06-09 14:41:00 36.61 Tegan Univ ersity of [place] [facility] Body weight 2022-06-09 14:41:00 133.811 kg [facility] [place] [facility] BMI 2022-06-09 14:41:00 50.64 kg/m2 [facility] [place] [facility] Oxygen saturation in 2022-06-09 14:41:00 94 /min University of Arterial blood by [place] [facility] Pulse oximetry Branch Systolic blood 2022-05-24 23:45:00 119 mm[Hg] Univer sity of pressure [place] [facility] Diastolic blood 2022-05-24 23:45:00 53 mm[Hg] Unive rsity of pressure [place] [facility] Heart rate 2022-05-24 23:45:00 79 /min [facility] [place] [facility] Body temperature 2022-05-24 23:45:00 36.61 Tegan Univ ersity [facility] [place] [facility] Respiratory rate 2022-05-24 23:45:00 20 /min Univ ersity of [place] [facility] Oxygen saturation in 2022-05-24 23:45:00 90 /min University of Arterial blood by [place] [facility] Pulse oximetry Branch Body height 2022-05-24 10:06:00 162.6 cm [facility] [place] [facility] Body weight 2022-05-24 10:06:00 129.5 kg bed scale [facility] [place] [facility] BMI 2022-05-24 10:06:00 49.01 kg/m2 [facility] [place] [facility] Systolic blood 2022-05-20 14:07:00 140 mm[Hg] Univer sity of pressure [place] [facility] Diastolic blood 2022-05-20 14:07:00 85 mm[Hg] Unive rsity of pressure [place] [facility] Heart rate 2022-05-20 14:07:00 78 /min [facility] [place] [facility] Respiratory rate 2022-05-20 14:07:00 19 /min Univ ersity [facility] [place] [facility] Body weight 2022-05-20 14:07:00 139.254 kg [facility] [place] [facility] BMI 2022-05-20 14:07:00 52.70 kg/m2 [facility] [place] [facility] Oxygen saturation in 2022-05-20 14:07:00 93 /min University of Arterial blood by [facility] Pulse oximetry Branch Systolic blood 2022-05-18 14:46:00 113 mm[Hg] Univer sity of pressure [place] [facility] Diastolic blood 2022-05-18 14:46:00 76 mm[Hg] Unive rsity of pressure [facility] Heart rate 2022-05-18 14:46:00 77 /min [facility] [place] [facility] [place] Respiratory rate 2022-05-18 14:46:00 14 /min Univ ersity [facility] [place] [facility] Body weight 2022-05-18 14:46:00 138.801 kg [facility] [place] [facility] [place] BMI 2022-05-18 14:46:00 52.52 kg/m2 Universi ty of [facility] Oxygen saturation in 2022-05-18 14:46:00 92 /min room air University of Arterial blood by [facility] Pulse oximetry Branch Systolic blood 2022-03-17 21:36:00 115 mm[Hg] Univer sity of pressure [place] [facility] [place] Diastolic blood 2022-03-17 21:36:00 69 mm[Hg] Unive rsity of pressure [place] [facility] [place] Heart rate 2022-03-17 21:36:00 76 /min [facility] [place] [facility] [place] Body height 2022-03-17 21:36:00 162.6 cm [facility] [place] [facility] [place] Body weight 2022-03-17 21:36:00 133.176 kg [facility] [place] [facility] [place] BMI 2022-03-17 21:36:00 50.40 kg/m2 [facility] [place] [facility] Oxygen saturation in 2022-03-17 21:36:00 95 /min University of Arterial blood by [facility] Pulse oximetry Branch height 2021-11-13 16:20:00 64 [in_i] Common S [facility] weight 2021-11-13 16:20:00 305.3 [lb_av] Common [facility] temperature 2021-11-13 16:20:00 97.3 [degF] [facility] bmi 2021-11-13 16:20:00 52.4 kg/m2 [facility] oximetry 2021-11-13 16:20:00 95 % Common [facility] respiratory rate 2021-11-13 16:20:00 18 /min [facility] blood pressure 2021-11-13 16:20:00 129 mm[Hg] Common [facility] - systolic [facility] blood pressure 2021-11-13 16:20:00 67 mm[Hg] Common [facility] - diastolic [facility] height 2021-09-30 09:20:00 64 [in_i] Common S [facility] weight 2021-09-30 09:20:00 314.3 [lb_av] [facility] temperature 2021-09-30 09:20:00 97.2 [degF] Common [facility] bmi 2021-09-30 09:20:00 53.94 kg/m2 [facility] oximetry 2021-09-30 09:20:00 93 % [facility] respiratory rate 2021-09-30 09:20:00 16 /min Comm on [facility] blood pressure 2021-09-30 09:20:00 132 mm[Hg] Common [facility] systolic [facility] blood pressure 2021-09-30 09:20:00 67 mm[Hg] Common [facility] - diastolic [facility] height 2021-05-07 13:50:00 64 [in_i] Common S pirit [facility] weight 2021-05-07 13:50:00 287.7 [lb_av] [facility] temperature 2021-05-07 13:50:00 97.2 [degF] Common [facility] bmi 2021-05-07 13:50:00 49.38 kg/m2 [facility] oximetry 2021-05-07 13:50:00 94 % Common [facility] respiratory rate 2021-05-07 13:50:00 16 /min [facility] blood pressure 2021-05-07 13:50:00 136 mm[Hg] [facility] blood pressure 2021-05-07 13:50:00 76 mm[Hg] [facility] height 2021-04-06 16:00:00 64 [in_i] Common [facility] weight 2021-04-06 16:00:00 286.0 [lb_av] Common [facility] temperature 2021-04-06 16:00:00 97.6 [degF] [facility] bmi 2021-04-06 16:00:00 49.09 kg/m2 Common S [facility] oximetry 2021-04-06 16:00:00 97 % Common S [facility] respiratory rate 2021-04-06 16:00:00 17 /min [facility] on [facility] blood pressure 2021-04-06 16:00:00 127 mm[Hg] [facility] blood pressure 2021-04-06 16:00:00 62 mm[Hg] Common [facility] - diastolic [facility] height 2020-12-10 10:20:00 64 [in_i] Common [facility] weight 2020-12-10 10:20:00 288.7 [lb_av] [facility] temperature 2020-12-10 10:20:00 97.5 [degF] Common S pirit [facility] bmi 2020-12-10 10:20:00 49.55 kg/m2 Common S [facility] oximetry 2020-12-10 10:20:00 93 % Common S [facility] respiratory rate 2020-12-10 10:20:00 17 /min [facility] blood pressure 2020-12-10 10:20:00 124 mm[Hg] Common [facility] - systolic [facility] blood pressure 2020-12-10 10:20:00 68 mm[Hg] [facility] Systolic blood 2022-08-05 20:45:09 107 mm[Hg] Method [facility] pressure Diastolic blood 2022-08-05 20:45:09 54 mm[Hg] [facility] Heart rate 2022-08-05 20:45:09 63 /min [facility] Oxygen saturation in 2022-08-05 20:45:09 93 /min [facility] Arterial blood by Pulse oximetry Body temperature 2022-08-05 20:44:27 35.56 Tegan [facility] Respiratory rate 2022-08-05 20:44:27 16 /min [facility] Body weight 2022-08-05 04:15:00 129.956 kg [facility] BMI 2022-08-05 04:15:00 49.18 kg/m2 [facility] Body height 2022-08-04 17:14:00 162.6 cm [facility] Systolic blood 2021-09-09 22:24:07 133 mm[Hg] Method [facility] pressure Diastolic blood 2021-09-09 22:24:07 65 mm[Hg] [facility] pressure Heart rate 2021-09-09 22:24:07 62 /min [facility] Body temperature 2021-09-09 22:24:07 36.28 Tegan [facility] Respiratory rate 2021-09-09 22:24:07 18 /min [facility] Oxygen saturation in 2021-09-09 22:24:07 96 /min [facility] Arterial blood by Pulse oximetry Body weight 2021-09-02 08:51:24 136.896 kg [facility] BMI 2021-09-02 08:51:24 51.80 kg/m2 [facility] Body height 2021-08-27 02:47:26 162.6 cm [facility] Procedures Procedure Date / Time Performing Clinician Source Performed XR SKULL < 4 VW 2022-10-22 19:33:00 [facility] HEAD EXTERNAL STUDY 2022-10-22 15:09:00 [facility] 12-LEAD 2022-08-05 18:37:07 Lilian Saeed [facility] marktal Kathleen TROPONIN T 2022-08-05 15:12:00 Lilian Saeed spimarcia Kathleen EEG AWAKE/DROWSY LESS THAN 2022-08-05 10:40:00 Ocrreia, [facility] 41 MIN [place] CBC WITH PLATELET AND 2022-08-05 09:06:00 [facility] DIFFERENTIAL Kathleen BASIC METABOLIC PANEL 2022-08-05 09:06:00 [facility] MAGNESIUM LEVEL 2022-08-05 09:06:00 Lilian Saeed spital [place] PHOSPHORUS LEVEL 2022-08-05 09:06:00 Lilian Saeed H ospimarcia Kathleen ESTIMATED GFR 2022-08-05 09:06:00 Lilian Saeed XR ABDOMEN 1 VW PORTABLE 2022-08-05 03:52:27 [facility] ECG 12-LEAD 2022-08-04 21:36:50 Lilian S[address] spital [place] [address] HEAD WO CONTRAST 2022-08-04 20:49:53 [facility] LACTIC ACID LEVEL, SEPSIS - 2022-08-04 20:10:00 [facility] NOW AND REPEAT 2X EVERY 3 HOURS XR SHUNT SERIES CHEST ABD 2 2022-08-04 [facility] HEAD NECK 2 2022-08-04 18:15:[facility] CBC WITH PLATELET AND 2022-08-04 17:25:00 [facility] DIFFERENTIAL COMPREHENSIVE METABOLIC 2022-08-04 17:25:00 [facility] PANEL LACTIC ACID LEVEL, SEPSIS - 2022-08-04 17:25:00 [facility] NOW AND REPEAT 2X EVERY 3 HOURS ESTIMATED GFR 2022-08-04 17:25:00 [facility] ECG ED PRELIMINARY 2022-08-04 17:07:38 Yogesh Lan Method [facility] INTERPRETATION ELECTROPHYSIOLOGY PROCEDURE 2022-07-02 19:12:46 [facility] ECG ROUTINE & RHYTHM 2022-07-02 16:28:34 Gulshan [facility] BASIC METABOLIC PANEL (NA, 2022-07-02 16:23:00 [facility], CL, CO2, GLUCOSE, BUN, Medica l Branch CREATININE, CA) CBC WITH DIFF 2022-07-02 16:23:00 [facility] PROTHROMBIN TIME / INR 2022-07-02 16:23:00 Brooke [facility] BASIC METABOLIC PANEL (NA, 2022-07-02 16:23:00 Brooke [facility] K, CL, CO2, GLUCOSE, BUN, Medica l Branch CREATININE, CA) CBC WITH DIFF 2022-07-02 16:23:00 [facility] PROTHROMBIN TIME / INR 2022-07-02 16:23:00 Brooke [facility] EP PROCEDURE 2022-07-02 05:01:00 Doctor Margarito, [facility] Medical [facility] PATIENT FINANCIAL 2022-06-09 14:27:57 Doctor Margarito, [facility] POLICY [facility] TROPONIN I 2022-05-24 22:10:00 Ju Frey [facility] TRANSTHORACIC ECHO (TTE) 2022-05-24 17:43:19 Ju Frey [facility] COMPLETE W/ CONTRAST [facility] TROPONIN I 2022-05-24 13:58:00 Ju Frey [facility] XR CHEST 1 VW 2022-05-24 06:01:00 Nahun Ortez [facility] NOTICE OF PRIVACY PRACTICES 2022-05-24 05:47:06 Doctor Bassam bacon [facility] CONSENT/REFUSAL FOR 2022-05-24 05:46:30 Doctor Margarito [facility] DIAGNOSIS AND TREATMENT [facility] LIPASE 2022-05-24 05:42:00 Nahnu Ortez [facility] TROPONIN I 2022-05-24 05:42:00 Nahun Ortez [facility] COMP. METABOLIC PANEL 2022-05-24 05:42:00 Nahun Ortez [facility] ([id number]) Medical [place] LIPID PANEL ([id number])(TOTAL 2022-05-24 05:42:00 Beverlyo Shante, [facility] CHOLESTEROL, TRIGLYCERIDES, Mahmoud [facility] HDL) CBC WITH DIFF 2022-05-24 05:42:00 Nahun Ortez [facility] PROTHROMBIN TIME / INR 2022-05-24 05:42:00 Nahun Ortez [facility] ACTIVATED PARTIAL THRMPLAS 2022-05-24 05:42:00 Nahun Ortez [facility] N-TERMINAL PRO-BNP 2022-05-24 05:42:00 Nahun Ortez [facility] HB ECG ROUTINE & RHYTHM 2022-05-24 05:38:29 Nahun Ortez [facility] ASSIGNMENT OF BENEFITS 2022-05-20 15:01:15 Doctor Unassigned, [facility] HB ECG ROUTINE & RHYTHM 2022-03-17 21:43:30 Imani Martino [facility] CONSENT/REFUSAL FOR 2022-03-17 21:23:03 Doctor Unassigned, [facility] DIAGNOSIS AND TREATMENT [facility] MRI HEAD EXTERNAL STUDY 2021-10-19 15:25:00 Heaven Herrera [facility] POC GLUCOSE 2021-09-09 22:23:00 Acacia Lewis Ho spital POC GLUCOSE 2021-09-09 17:43:00 Acacia Lewis Ho spital POC GLUCOSE 2021-09-09 12:46:00 Acacia Lewis Ho spital POC GLUCOSE 2021-09-09 02:10:00 Acacia Lewis Ho spital POC GLUCOSE 2021-09-08 22:50:00 Joglekar, Acacia [facility] POC GLUCOSE 2021-09-08 18:35:00 Joglekar, Acacia [facility] POC GLUCOSE 2021-09-08 13:10:00 Joglekar, Acacia [facility] POC GLUCOSE 2021-09-08 02:28:00 Joglekar, Acacia [facility] POC GLUCOSE 2021-09-07 23:10:00 Joglekar, Acacia [facility] POC GLUCOSE 2021-09-07 17:46:00 Joglekar, Acacia [facility] POC GLUCOSE 2021-09-07 13:20:00 Joglekar, Acacia [facility] POC GLUCOSE 2021-09-07 02:07:00 Joglekar, Acacia [facility] POC GLUCOSE 2021-09-06 23:51:00 Joglekar, Acacia [facility] POC GLUCOSE 2021-09-06 17:26:00 Joglekar, Acacia [facility] POC GLUCOSE 2021-09-06 13:13:00 Joglekar, Acacia [facility] POC GLUCOSE 2021-09-06 02:43:00 Joglekar, Acacia [facility] POC GLUCOSE 2021-09-05 23:55:00 Joglekar, Acacia [facility] POC GLUCOSE 2021-09-05 17:41:00 Joglekar, Acacia [facility] POC GLUCOSE 2021-09-05 13:45:00 Joglekar, Acacia [facility] ECG 12-LEAD 2021-09-05 05:50:02 Joglekar, Acacia [facility] POC GLUCOSE 2021-09-05 03:25:00 Joglekar, Acacia [facility] POC GLUCOSE 2021-09-05 01:53:00 Joglekar, Acacia [facility] POC GLUCOSE 2021-09-04 23:28:00 Joglekar, Acacia [facility] POC GLUCOSE 2021-09-04 17:44:00 Joglekar, Acacia [facility] SIX MINUTE WALK W/ PULSE 2021-09-04 16:54:41 Joglekar, Acacia [facility] OXIMETRY POC GLUCOSE 2021-09-04 13:27:00 JoAcacia rivera [facility] POC GLUCOSE 2021-09-04 02:14:00 Joglekbenji, Acacia [facility] POC GLUCOSE 2021-09-03 23:15:00 Joglekbenji, Acacia [facility] POC GLUCOSE 2021-09-03 17:35:00 Joglekbenji, Acacia [facility] POC GLUCOSE 2021-09-03 13:29:00 JoglekAcacia leblanc [facility] POC GLUCOSE 2021-09-03 03:43:00 Joglekar, Acacia [facility] POC GLUCOSE 2021-09-02 22:37:00 Joglekar, Acacia [facility] POC GLUCOSE 2021-09-02 17:32:00 Joglekar, Acacia [facility] POC GLUCOSE 2021-09-02 13:55:00 JoglekAcacia leblanc [facility] POC GLUCOSE 2021-09-02 02:06:00 JoglekAcacia leblanc [facility] POC GLUCOSE 2021-09-01 22:59:00 JoglekAcacia leblanc Ho spital XR ABDOMEN 1 VW PORTABLE 2021-09-01 21:44:00 [facility] WITH [facility]LET AND 2021-09-01 17:49:00 [facility]FFERENTIAL COMPREHENSIVE METABOLIC 2021-09-01 17:49:00 Daphney Brown [facility] PANEL ESTIMATED GFR 2021-09-01 17:49:00 Daphney Brown Ho spital POC GLUCOSE 2021-09-01 17:31:00 JoglekarAcacia [facility] POC GLUCOSE 2021-09-01 13:36:00 JoglekarAcacia [facility] POC GLUCOSE 2021-09-01 01:58:00 JoglekarAcacia [facility] POC GLUCOSE 2021-08-31 23:12:00 JoglekarAcacia [facility] POC GLUCOSE 2021-08-31 17:21:00 JoglekShane leblancati [facility] POC GLUCOSE 2021-08-31 13:08:00 Joglekar, Acacia [facility] POC GLUCOSE 2021-08-31 01:41:00 Joglekbenji, Acacia [facility] POC GLUCOSE 2021-08-30 23:36:00 Joglekbenji, Acacia [facility] POC GLUCOSE 2021-08-30 17:36:00 Joglekar, Acacia [facility] POC GLUCOSE 2021-08-30 13:15:00 Joglekar, Acacia [facility] POC GLUCOSE 2021-08-30 02:00:00 Joglekar, Acacia [facility] POC GLUCOSE 2021-08-29 23:05:00 Joglekar, Acacia [facility] POC GLUCOSE 2021-08-29 17:57:00 JoglekarAcacia [facility] POC GLUCOSE 2021-08-29 13:41:00 JoglekAcacia leblanc [facility] POC GLUCOSE 2021-08-29 01:29:00 Joglekar, Acacia [facility] POC GLUCOSE 2021-08-28 22:55:00 JoglekarAcacia [facility] POC GLUCOSE 2021-08-28 17:23:00 JoglekAcacia leblanc [facility] POC GLUCOSE 2021-08-28 13:45:00 JoglekAcacia leblanc [facility] POC GLUCOSE 2021-08-28 01:28:00 JoglekAcacia leblanc Ho spital COVID-19 QUALITATIVE RT-PCR 2021-08-27 22:41:00 JoglekAcacia leblanc Hospital POC GLUCOSE 2021-08-27 22:33:00 JoglekarShaneAcacia [facility] POC GLUCOSE 2021-08-27 17:33:00 JoglekShane leblancati [facility] POC GLUCOSE 2021-08-27 12:35:00 JoglekAcacia leblanc [facility] POC GLUCOSE 2021-08-27 02:48:00 JoglekarAcacia [facility] POC GLUCOSE 2021-08-26 22:44:00 JoAcacia rivera Ho spital POC GLUCOSE 2021-08-26 16:43:00 JoglAcacia carrasco Ho spital POC GLUCOSE 2021-08-26 13:42:00 Acacia Lewis Ho spital POC GLUCOSE 2021-08-26 01:50:00 JoAcacia rivera Ho spital POC GLUCOSE 2021-08-25 23:14:00 JoAcacia rivera Ho spital COVID-19 QUALITATIVE RT-PCR 2021-08-25 21:42:00 Lorenzo [facility] POC GLUCOSE 2021-08-25 17:35:00 Acacia Lewis Ho spital POC GLUCOSE 2021-08-25 12:51:00 JoAcacia rivera Ho spital POC GLUCOSE 2021-08-24 21:45:00 JoAcacia rivera Ho spital POC GLUCOSE 2021-08-24 16:30:00 JoglAcacia carrasco Ho spital POC GLUCOSE 2021-08-24 13:01:00 JoAcacia rivera spital XR CHEST 1 VW PORTABLE 2021-08-24 06:11:07 [facility] ECG 12-LEAD 2021-08-24 05:35:00 Justice [facility] TROPONIN T 2021-08-24 05:14:00 [facility] B NATRIURETIC PEPTIDE 2021-08-24 05:14:00 Justice [facility] D-DIMER 2021-08-24 05:14:00 Justice, [facility] POC GLUCOSE 2021-08-24 01:34:00 Acacia Lewis Ho spital POC GLUCOSE 2021-08-23 22:13:00 JoAcacia rivera Ho spital POC GLUCOSE 2021-08-23 16:50:00 JoAcacia rivera Ho spital POC GLUCOSE 2021-08-23 12:50:00 JoAcacia rivera Ho spital POC GLUCOSE 2021-08-23 02:07:00 Posani, Richelle Mcleod Ho spital POC GLUCOSE 2021-08-22 22:43:00 Posani, Richelle Mcleod Ho spital POC GLUCOSE 2021-08-22 16:45:00 Posani, Richelle Mcleod Ho spital POC GLUCOSE 2021-08-22 12:29:00 Posani, Richelle Mcleod Ho spital XR SKULL < 4 VW 2021-08-22 04:41:17 Jacky, Mary Jane Wilburn [facility] POC GLUCOSE 2021-08-22 00:46:00 Posani, Richelle Mcleod Ho spital POC GLUCOSE 2021-08-21 22:41:00 Posani, Richelle Mcleod Ho spital POC GLUCOSE 2021-08-21 16:36:00 Posani, Richelle Mcleod Ho spital POC GLUCOSE 2021-08-21 13:46:00 Posani, Richelle Mcleod Ho spital BASIC METABOLIC PANEL 2021-08-21 09:48:00 [facility] CBC WITH PLATELET AND 2021-08-21 09:48:00 [facility] DIFFERENTIAL PHOSPHORUS LEVEL 2021-08-21 09:48:00 [facility] MAGNESIUM LEVEL 2021-08-21 09:48:00 [facility] osp[facility] IONIZED CALCIUM 2021-08-21 09:48:00 [facility] ESTIMATED GFR 2021-08-21 09:48:00 [facility] Evangelical ospital MRI BRAIN W WO CONTRAST 2021-08-21 04:00:00 [facility] POC GLUCOSE 2021-08-21 01:14:00 PosRichelle james Ho spital POC GLUCOSE 2021-08-20 20:59:00 PosRichelle james spital IR EPIDURAL BLOOD PATCH 2021-08-20 19:49:00 Bren [facility] [place] POC GLUCOSE 2021-08-20 16:26:00 PosaniRichelle Ho spital POC GLUCOSE 2021-08-20 12:21:00 Richelle Lowry spital POC GLUCOSE 2021-08-20 09:12:00 Richelle Lowry spital POC GLUCOSE 2021-08-20 05:11:00 Richelle Lowry spital BASIC METABOLIC PANEL 2021-08-20 04:57:00 [facility] WITH [facility]ATELET AND 2021-08-20 04:57:00 [facility] DIFFERENTIAL THYROID STIMULATING HORMONE 2021-08-20 04:57:00 Joelle Alvares [facility] T4, FREE 2021-08-20 04:57:00 Joelle Alvares [facility] ESTIMATED GFR 2021-08-20 04:57:00 PosRichelle james spital MAGNESIUM LEVEL 2021-08-20 04:57:00 PosRichelle james spital PHOSPHORUS LEVEL 2021-08-20 04:57:00 Richelle Lowry ospital IONIZED CALCIUM 2021-08-20 04:57:00 PosRichelle james spital POC GLUCOSE 2021-08-20 01:05:[address] HEAD WO CONTRAST 2021-08-19 22:19:25 [facility] 2021-08-19 20:28:13 [facility] [place] MISCELLANEOUS REFERRAL TEST 2021-08-19 19:31:00 Essence [facility] SURGICAL PATHOLOGY REQUEST 2021-08-19 19:31:00 [facility] 2021-08-19 17:20:00 Richelle Lowry spital [place] AN ELECTIVE ENDOTRACHEAL 2021-08-19 17:02:00 Wilma Alex [facility] AIR[facility] Art CRANIOTOMY 2021-08-19 16:44:00 Heaven Herrera [facility] XR SKULL < 4 VW 2021-08-19 15:03:00 Lauren Correia spital [place] POC GLUCOSE 2021-08-19 12:52:00 Richelle Lowry spital POC GLUCOSE 2021-08-19 00:22:00 Posani, Richelle Mcleod spital COVID-19 QUALITATIVE RT-PCR 2021-08-18 21:40:00 [facility] [place] ABO AND RH CONFIRMATION BY 2021-08-18 20:31:00 [facility] PROTOCOL [place] PARTIAL THROMBOPLASTIN TIME 2021-08-18 16:57:00 [facility] (PTT) [place] PROTHROMBIN TIME WITH INR 2021-08-18 16:57:00 [facility] [place] TYPE AND SCREEN 2021-08-18 16:57:00 [facility] [place] MRI BRAIN W WO CONTRAST 2021-08-18 15:18:00 [facility] [place] POC GLUCOSE 2021-08-18 13:28:00 Poserika, Richelle Villa spital CBC WITH PLATELET AND 2021-08-18 10:06:00 [facility] DIFFERENTIAL [place] POC GLUCOSE 2021-08-17 22:14:00 PosaniRichelle spital POC GLUCOSE 2021-08-17 18:05:00 Poserika, Richelle Mcleod spital POC GLUCOSE 2021-08-17 14:36:00 PosRichelle jamestal TTE COMPLETE, W CONTRAST, W 2021-08-17 13:00:00 Poserika [facility] DOPPLER ([id number]) CBC WITH PLATELET AND 2021-08-17 10:27:00 [facility] DIFFERENTIAL [place] TROPONIN T 2021-08-17 10:27:00 PosRichelle james spital BASIC METABOLIC PANEL 2021-08-17 10:27:00 Posani [facility] ESTIMATED GFR 2021-08-17 10:27:00 PosRichelle james spital ECG 12-LEAD 2021-08-17 05:20:42 PosRichelle james spital POC GLUCOSE 2021-08-17 03:20:00 Posani, Richelle Villa spital POC GLUCOSE 2021-08-16 22:56:00 Posani, Richelle Mcleod Ho spital POC GLUCOSE 2021-08-16 17:38:00 Posani, Richelle Mcleod Ho spital POC GLUCOSE 2021-08-16 13:51:00 Poserika, Richelle Mcleod Ho spital CBC WITH PLATELET AND 2021-08-16 10:14:00 Lauren Correia [facility] DIFFERENTIAL [place] BASIC METABOLIC PANEL 2021-08-16 10:14:00 Poserika [facility] ESTIMATED GFR 2021-08-16 10:14:00 PosRichelle james Ho spital B NATRIURETIC PEPTIDE 2021-08-16 04:37:00 Justice [facility] TROPONIN T 2021-08-16 04:37:00 [facility] D-DIMER 2021-08-16 04:37:00 [facility] ECG 12-LEAD 2021-08-16 04:34:46 [facility] POC GLUCOSE 2021-08-16 02:27:00 PosaniRichelle Ho spital POC GLUCOSE 2021-08-15 23:05:00 PosRichelle james Ho spital BASIC METABOLIC PANEL 2021-08-15 21:03:00 Poserika [facility] ESTIMATED GFR 2021-08-15 21:03:00 PosRichelle james Ho spital POC GLUCOSE 2021-08-15 18:03:00 PosRichelle james Ho spital POC GLUCOSE 2021-08-15 13:24:00 PosaniRichelle Ho spital POC GLUCOSE 2021-08-15 02:11:00 PosaniRichelle Ho spital POC GLUCOSE 2021-08-14 22:57:00 PosaniRichelle Evangel[facility] Ho spital POC GLUCOSE 2021-08-14 17:36:00 Posani, Richelle Mcleod Ho spital POC GLUCOSE 2021-08-14 13:23:00 PosRichelle james Ho spital POC GLUCOSE 2021-08-14 01:21:00 Posani, Richelle Mcleod Ho spital POC GLUCOSE 2021-08-13 22:46:00 PosaniRichelle Ho spital POC GLUCOSE 2021-08-13 17:17:00 PosaniRichelle Ho spital POC GLUCOSE 2021-08-13 13:06:00 Richelle Lowry spital URINE CULTURE 2021-08-13 13:02:00 Charli Wang spital URINE DRUGS OF ABUSE SCREEN 2021-08-13 10:52:00 [facility] URINALYSIS SCREEN AND 2021-08-13 10:52:00 [facility] MICROSCOPY, WITH REFLEX TO CULTURE HEMOGLOBIN A1C 2021-08-13 09:13:00 [facility] spital LIPID PANEL 2021-08-13 09:13:00 [facility] HOMOCYSTINE, PLASMA 2021-08-13 09:13:00 [facility] FOLATE LEVEL 2021-08-13 09:13:00 [facility] VITAMIN B12 LEVEL 2021-08-13 09:13:00 [facility] THYROID STIMULATING HORMONE 2021-08-13 09:13:00 [facility] T4, FREE 2021-08-13 09:13:00 [facility] SEDIMENTATION RATE 2021-08-13 09:13:00 [facility] C-REACTIVE PROTEIN 2021-08-13 09:13:00 [facility] PROTHROMBIN TIME WITH INR 2021-08-13 09:13:00 [facility] PARTIAL THROMBOPLASTIN TIME 2021-08-13 09:13:00 [facility] (PTT) HIV 1/2 ANTIGEN/ANTIBODY, 2021-08-13 09:13:00 [facility] FOURTH GENERATION, WITH REFLEXES SYPHILIS TREPONEMA SCREEN 2021-08-13 09:13:00 [facility] WITH RPR CONFIRMATION (REVERSE ALGORITHM) POC GLUCOSE 2021-08-13 03:11:00 Lauren Francois spital POC GLUCOSE 2021-08-12 23:38:00 Lauren Francois spital TROPONIN T 2021-08-11 18:20:00 Lauren Francois spital THYROID STIMULATING HORMONE 2021-08-11 18:20:00 [facility] FREE 2021-08-11 18:20:00 Priscila, [facility] spital ECG 12-LEAD 2021-08-11 17:05:13 Priscila [facility] spital MRI THORACIC SPINE W WO 2021-08-10 14:20:00 [facility] CONTRAST MRI LUMBAR SPINE W WO 2021-08-10 13:30:00 [facility] CONTRAST MRI CERVICAL SPINE W WO 2021-08-10 12:45:00 [facility] CONTRAST ZZCOVID-19 ANTI-SPIKE IGG 2021-08-10 08:20:00 [facility] ANTIBODY TITER Terry CBC WITH PLATELET AND 2021-08-10 08:20:00 [facility] DIFFERENTIAL COMPREHENSIVE METABOLIC 2021-08-10 08:20:00 [facility] PANEL ZZCOVID-19 SEROLOGY PATIENT 2021-08-10 08:20:00 [facility] SURVEILLANCE Terry ESTIMATED GFR 2021-08-10 08:20:00 [facility] spital TROPONIN T 2021-08-09 09:19:00 [facility] spital MRI BRAIN W WO CONTRAST 2021-08-09 06:35:00 Asim [facility] ECG ED PRELIMINARY 2021-08-09 03:18:13 [facility] INTERPRETATION CT HEAD WO CONTRAST 2021-08-09 03:04:32 [facility] POC , URINE 2021-08-09 02:52:00 [facility] COVID-19 QUALITATIVE RT-PCR 2021-08-09 02:37:00 [facility] CBC WITH PLATELET AND 2021-08-09 02:37:00 [facility] DIFFERENTIAL PROTHROMBIN TIME WITH INR 2021-08-09 02:37:00 [facility] PARTIAL THROMBOPLASTIN TIME 2021-08-09 02:37[facility]00 [facility] METABOLIC 2021-08-09 02:37:00 Manas Mcghee [facility] PANEL ESTIMATED GFR 2021-08-09 02:37:00 Manas [facility] [place] [facility] TROPONIN T 2021-08-09 02:37:00 [facility] [place] [facility] B NATRIURETIC PEPTIDE 2021-08-09 02:37:00 Manas Mcghee [facility] SKULL < 4 VW 2021-08-09 02:09:31 [facility] [place] [facility] ECG 12-LEAD 2021-08-09 01:42:14 Taz, Manas [facility] XR ABDOMEN AP AND LATERAL 2021-08-09 01:40:26 TazManas [place] [facility] XR CERVICAL SPINE 2 OR 3 VW 2021-08-09 01:40:07 [facility] Manas [facility] XR CHEST 2 VW 2021-08-09 01:39:53 Taz, Manas [facility] Plan of Care Planned Activity Planned Date Details Comments Source Future Scheduled 2022-12-03 Influenza Vaccine (#1) [facility] [code = Influenza Vaccine Or dical Center (#1)] Future Scheduled 2022-12-03 Influenza Vaccine (Season [facility] 00:00:00 Ended) [code = Influenza Med ical Center Vaccine (Season Ended)] Future Scheduled 2022-11-01 Screening for malignant [facility] 22:18:26 neoplasm of colon Hospital (procedure) [code = 243423089] Future Scheduled 2022-11-01 Screening for malignant [facility] 22:18:[facility] neoplasm of colon Hospital (procedure) [code = 474361440] Future Scheduled 2022-11-01 Screening for malignant [facility] 22:18:26 neoplasm of colon Hospital (procedure) [code = 602037539] Future Scheduled 2022-11-01 COVID-19 VACCINE (#[facility]) [facility] 22:18:26 [code = COVID-19 VACCINE Hos pital (#1)] Future Scheduled 2022-11-01 Hepatitis C screening [facility] 22:18:26 (procedure) [code = Hospital 661680816] Future Scheduled 2022-11-01 Screening for malignant [facility] 22:18:26 neoplasm of cervix Hospital (procedure) [code = 594733611] Future Scheduled 2022-11-01 BREAST CANCER SCREENING [facility] 22:18:26 [code = BREAST CANCER Hospit al SCREENING] Future Scheduled 2022-11-01 Screening for malignant [facility] 22:18:26 neoplasm of colon Hospital (procedure) [code = 210276867] Future Scheduled 2022-11-01 Screening for malignant [facility] 22:18:26 neoplasm of colon Hospital (procedure) [code = 010620466] Future Scheduled 2022-11-01 INFLUENZA VACCINE [code = [facility] 22:18:26 INFLUENZA VACCINE] Hospital Future Scheduled 2022-09-16 Screening for malignant [facility] 16:43:42 neoplasm of colon Hospital (procedure) [code = 352216763] Future Scheduled 2022-09-16 Screening for malignant [facility] 16:43:42 neoplasm of colon Hospital (procedure) [code = 263895471] Future Scheduled 2022-09-16 Screening for malignant [facility] 16:43:42 neoplasm of colon Hospital (procedure) [code = 546425091] Future Scheduled 2022-09-16 COVID-19 VACCINE (#1) [facility] 16:43:42 [code = COVID-19 VACCINE Hos pital (#1)] Future Scheduled 2022-09-16 Hepatitis C screening [facility] 16:43:42 (procedure) [code = Hospital 248213687] Future Scheduled 2022-09-16 Screening for malignant [facility] 16:43:42 neoplasm of cervix Hospital (procedure) [code = 247881498] Future Scheduled 2022-09-16 BREAST CANCER SCREENING [facility] 16:43:42 [code = BREAST CANCER Hospit al SCREENING] Future Scheduled 2022-09-16 Screening for malignant [facility] 16:43:42 neoplasm of colon Hospital (procedure) [code = 260079479] Future Scheduled 2022-09-16 Screening for malignant [facility] 16:43:42 neoplasm of colon Hospital (procedure) [code = 028089152] Future Scheduled 2022-09-16 INFLUENZA VACCINE [code = [facility] 16:43:42 INFLUENZA VACCINE] Hospital Future Scheduled 2022-07-02 COVID-19 VACCINE (#1) [facility] 10:16:08 [code = COVID-19 VACCINE Hos pital (#1)] Future Scheduled 2022-07-02 Hepatitis C screening [facility] 10:16:08 (procedure) [code = Hospital 769756769] Future Scheduled 2022-07-02 Screening for malignant [facility] 10:16:08 neoplasm of cervix Hospital (procedure) [code = 544188025] Future Scheduled 2022-07-02 BREAST CANCER SCREENING [facility] 10:16:08 [code = BREAST CANCER Hospit al SCREENING] Future Scheduled 2022-07-02 COLONOSCOPY [facility]CREENING [facility] 10:16:08 [code = COLONOSCOPY Hospital SCREENING] Future Scheduled 2022-07-02 INFLUENZA VACCINE [code = [facility] 10:16:08 INFLUENZA VACCINE] Hospital Future Scheduled 2022-04-[address] [facility] 00:00:00 (12+) [code = DEPRESSION Med ical Center SCREENING (12+)] Future Scheduled 2022-04-[address] [facility] 00:00:00 (12+) [code = DEPRESSION Med ical Center SCREENING (12+)] Future Scheduled 2022-04-[address] [facility] 00:00:00 (12+) [code = DEPRESSION Med ical Center SCREENING (12+)] Future Scheduled 2022-04-[address] [facility] 00:00:00 (12+) [code = DEPRESSION Med ical Center SCREENING (12+)] Future Scheduled 2022-03-26 COVID-19 VACCINE (#1) [facility] 11:14:58 [code = COVID-19 VACCINE Hos pital (#1)] Future Scheduled 2022-03-26 Hepatitis C screening [facility] 11:14:58 (procedure) [code = Hospital 766450460] Future Scheduled 2022-03-26 Screening for malignant [facility] 11:14:58 neoplasm of cervix Hospital (procedure) [code = 497601025] Future Scheduled 2022-03-26 BREAST CANCER SCREENING [facility] 11:14:58 [code = BREAST CANCER Hospit al SCREENING] Future Scheduled 2022-03-26 COLONOSCOPY [facility]CRE[facility]ING [facility] 11:14:58 [code = COLONOSCOPY Hospital SCREENING] Future Scheduled 2022-03-26 INFLUENZA VACCINE [code = [facility] 11:14:58 INFLUENZA VACCINE] Hospital Future Scheduled 2022-03-19 COVID-19 VACCINE (#1) [facility] 04:23:42 [code = COVID-19 VACCINE Hos pital (#1)] Future Scheduled 2022-03-19 Hepatitis C screening [facility] 04:23:42 (procedure) [code = Hospital 789264556] Future Scheduled 2022-03-19 BREAST CANCER SCREENING [facility] 04:23:42 [code = BREAST CANCER Hospit al SCREENING] Future Scheduled 2022-03-19 [facility]OSCOPY [facility]CRE[facility]ING [facility] 04:23:42 [code = COLONOSCOPY Hospital SCREENING] Future Scheduled 2022-03-19 INFLUENZA VACCINE [code = [facility] 04:23:42 INFLUENZA VACCINE] Hospital Future Scheduled 2021-12-26 HEPATITIS B VACCINES (1 [facility] 19:34:27 of 3 - 3-dose series) Hospit al [code = HEPATITIS B VACCINES (1 of 3 - 3-dose series)] Future Scheduled 2021-12-26 COVID-19 VACCINE (#1) [facility] 19:34:27 [code = COVID-19 VACCINE Hos pital (#1)] Future Scheduled 2021-12-26 Hepatitis C screening [facility] 19:34:27 (procedure) [code = Hospital 307768269] Future Scheduled 2021-12-26 Screening for malignant [facility] 19:34:27 neoplasm of cervix Hospital (procedure) [code = 802422502] Future Scheduled 2021-12-26 BREAST CANCER SCREENING [facility] 19:34:27 [code = BREAST CANCER Hospit al SCREENING] Future Scheduled 2021-12-26 COLONOSCOPY [facility]CRE[facility]ING [facility] 19:34:27 [code = COLONOSCOPY Hospital SCREENING] Future Scheduled 2021-12-26 INFLUENZA VACCINE [code = [facility] 19:34:27 INFLUENZA VACCINE] Hospital Future Scheduled 2021-12-03 INFLUENZA VACCINE (#1) [facility]00 [code = INFLUENZA VACCINE Me dical Center (#1)] Future Scheduled 2021-12-03 INFLUENZA VACCINE (#1) [facility] 00:00:00 [code = INFLUENZA VACCINE Me dical Center (#1)] Future Scheduled 2021-12-03 INFLUENZA VACCINE (#1) [facility] 00:00:00 [code = INFLUENZA VACCINE Or dical Center (#1)] Future Scheduled 2021-04-[address] [facility] 00:00:00 (12+) [code = DEPRESSION Med [facility] Center SCREENING (12+)] Future Scheduled 2020-01-05 Lipid panel (procedure) [facility] 00:00:00 [code = 12978674] Medical Ce nter Future Scheduled 2020-01-05 Lipid panel (procedure) [facility] 00:00:00 [code = 30520388] Medical Ce nter Future Scheduled 2020-01-05 Lipid panel (procedure) [facility] 00:00:00 [code = 59035574] Medical Ce nter Future Scheduled 2020-01-05 Lipid panel (procedure) [facility] 00:00:00 [code = 92105192] Medical Ce nter Future Scheduled 2020-01-05 Lipid panel (procedure) [facility] 00:00:00 [code = 38439357] Medical Ce nter Future Scheduled 1996-01-05 Screening for malignant [facility] 00:00:00 neoplasm of cervix Medical C enter (procedure) [code = 740118409] Future Scheduled 1996-01-05 Screening for malignant [facility] 00:00:00 neoplasm of cervix Medical C enter (procedure) [code = 208037377] Future Scheduled 1996-01-05 Screening for malignant [facility] 00:00:00 neoplasm of cervix Medical C enter (procedure) [code = 856577310] Future Scheduled 1996-01-05 Screening for malignant [facility] 00:00:00 neoplasm of cervix Medical C enter (procedure) [code = 131610678] Future Scheduled 1996-01-05 Screening for malignant [facility] 00:00:00 neoplasm of cervix Medical C enter (procedure) [code = 172266355] Future Scheduled 1994 DTAP/TDAP/TD VACCINES ([address] [facility] 00:00:00 - Tdap) [code = Medical Cent er DTAP/TDAP/TD VACCINES (1 - Tdap)] Future Scheduled 1994 DTAP/TDAP/TD VACCINES ([address] [facility] 00:00:00 - Tdap) [code = Medical Cent er DTAP/TDAP/TD VACCINES (1 - Tdap)] Future Scheduled 1994 DTAP/TDAP/TD VACCINES ([address] [facility] 00:00:00 - Tdap) [code = Medical Cent er DTAP/TDAP/TD VACCINES (1 - Tdap)] Future Scheduled 1994 DTAP/TDAP/TD VACCINES ([address] [facility] 00:00:00 - Tdap) [code = Medical Cent er DTAP/TDAP/TD VACCINES (1 - Tdap)] Future Scheduled 1994 DTAP/TDAP/TD VACCINES ([address] [facility] 00:00:00 - Tdap) [code = Medical Cent er DTAP/TDAP/TD VACCINES (1 - Tdap)] Future Scheduled [...] HEPATITIS C Medical Center SCREENING] Future Scheduled [address] [facility] 00:[facility]:00 virus screening Medical Cent er (procedure) [code = 139238868] Future Scheduled [address] [facility] 00:00:00 Counseling and Screening Med ical Center (12+) [code = Tobacco Cessation Counseling and Screening (12+)] Future Scheduled [address] [facility] 00:00:00 Counseling and Screening Med ical Center (12+) [code = Tobacco Cessation Counseling and Screening (12+)] Future Scheduled [address] [facility] 00:00:00 Counseling and Screening Med ical Center (12+) [code = Tobacco Cessation Counseling and Screening (12+)] Future Scheduled [address] [facility] 00:00:00 Counseling and Screening Med ical Center (12+) [code = Tobacco Cessation Counseling and Screening (12+)] Future Scheduled [address] [facility] 00:00:00 Counseling and Screening Med ical Center (12+) [code = Tobacco Cessation Counseling and Screening (12+)] Future Scheduled 1975 COVID-19 VACCINE [facility] [code = COVID-19 VACCINE Med ical Center (#1)] Future Scheduled 1975 COVID-19 VACCINE (#1[facility] 00:00:00 [code = COVID-19 VACCINE Med ical Center (#1)] Future Scheduled 1975 COVID-19 VACCINE (#1[facility] 00:00:00 [code = COVID-19 VACCINE Med ical Center (#1)] Future Scheduled 1975 COVID-19 VACCINE (#1[facility] 00:00:00 [code = COVID-19 VACCINE Med ical Center (#1)] Future Scheduled 1975 COVID-19 VACCINE (#1[facility] 00:00:00 [code = COVID-19 VACCINE Med ical Center (#1)] Future Scheduled 1975 CT Colonography (combo) [facility] 00:00:00 [code = CT Colonography [facility] (combo)] Future Scheduled 1975 Screening for malignant [facility] 00:00:00 neoplasm of colon Medical Ce nter (procedure) [code = 297876568] Future Scheduled 1975 Screening for malignant [facility] 00:00:00 neoplasm of colon Medical Ce nter (procedure) [code = 145219326] Future Scheduled 1975 Screening for malignant [facility] 00:00:00 neoplasm of colon Medical Ce nter (procedure) [code = 940970981] Future Scheduled 1975 Screening for malignant [facility] 00:00:00 neoplasm of colon Medical Ce nter (procedure) [code = 032020699] Future Scheduled 1975 Sigmoidoscopy [facility]code = [facility] Future Scheduled 1975 CT Colonography (combo) [facility] 00:00:00 [code = CT Colonography Medi orin Center (combo)] Future Scheduled 1975 Screening for malignant [facility] 00:00:00 neoplasm of colon Medical Ce nter (procedure) [code = 728594503] Future Scheduled 1975 Screening for malignant [facility] 00:00:00 neoplasm of colon Medical Ce nter (procedure) [code = 309930597] Future Scheduled 1975 Screening for malignant [facility] 00:00:00 neoplasm of colon Medical Ce nter (procedure) [code = 352696782] Future Scheduled 1975 CT Colonography (combo) [facility] 00:00:00 [code = CT Colonography Medi orin Center (combo)] Future Scheduled 1975 Screening for malignant [facility] 00:00:00 neoplasm of colon Medical Ce nter (procedure) [code = 542199864] Future Scheduled 1975 Sigmoidoscopy [code = [facility]oscopy] Medical Cente r Future Scheduled 1975 Screening for malignant [facility] 00:00:00 neoplasm of colon Medical Ce nter (procedure) [code = 182501336] Future Scheduled 1975 CT Colonography (combo) [facility] 00:00:00 [code = CT Colonography [facility] (combo)] Future Scheduled 1975 Screening for malignant [facility] 00:00:00 neoplasm of colon Medical Ce nter (procedure) [code = 671165633] Future Scheduled 1975 Screening for malignant [facility] 00:00:00 neoplasm of colon Medical Ce nter (procedure) [code = 856950469] Future Scheduled 1975 Screening for malignant [facility] 00:00:00 neoplasm of colon Medical Ce nter (procedure) [code = 135279290] Future Scheduled 1975 Screening for malignant [facility] 00:00:00 neoplasm of colon Medical Ce nter (procedure) [code = 762273064] Future Scheduled 1975 Sigmoidoscopy [facility]code [facility]oidoscopy] Medical Cente r Future Scheduled 1975 Screening for malignant [facility] 00:00:00 neoplasm of colon Medical Ce nter (procedure) [code = 930100134] Future Scheduled 1975 CT Colonography (combo) [facility] 00:00:00 [code = CT Colonography [facility] (combo)] Future Scheduled 1975 Screening for malignant [facility] 00:00:00 neoplasm of colon Medical Ce nter (procedure) [code = 985534004] Future Scheduled 1975 Screening for malignant [facility] 00:00:00 neoplasm of colon Medical Ce nter (procedure) [code = 840395749] Future Scheduled 1975 Screening for malignant [facility] 00:00:00 neoplasm of colon Medical Ce nter (procedure) [code = 824323684] Future Scheduled 1975 Screening for malignant [facility] 00:00:00 neoplasm of colon Medical Ce nter (procedure) [code = 916552321] Future Scheduled 1975 Sigmoidoscopy [facility]code [facility]oscopy] Medical Cente r Future Scheduled 1975 Screening for malignant [facility] 00:00:00 neoplasm of colon Medical Ce nter (procedure) [code = 506560589] Future Scheduled 1975 Screening for malignant [facility] 00:00:00 neoplasm of colon Medical Ce nter (procedure) [code = 986173003] Future Scheduled 1975 Sigmoidoscopy [facility] S[facility]oscopy] Medical Cente r Encounters Start End Encounter Admission Attending Care Care Encounter Source Date/Time Date/Time Type Type Clinicians Facility Department ID 2022-03-10 [facility] [id number] Common 09:34:02 [facility] [id number] [facility] 2022-02-03 Outpatient ChaconABRAHAM sorto [facility] [id number] Common 14:59:00 [facility] [address] [facility] 2022-02-01 Outpatient Chacon STLMLC STLMLC [id number] Common 11:11:01 Manjinder [facility] 2021-08-03 Outpatient Chacon, STLMLC STLMLC [id number] Common 16:18:01 Manjinder [facility] 2021-05-07 Outpatient Chacon, STLMLC STLMLC [id number] Common 13:30:02 Manjinder [facility] 2021-05-01 Outpatient Chacon, STLMLC STLMLC [id number] Common 08:23:02 Manjinder [facility] 2021-04-29 Outpatient Chacon, STLMLC STLMLC [id number] Common 14:31:29 Manjinder [facility] 2021-04-29 Outpatient Chacon, STLMLC STLMLC [id number] Common 14:12:21 Manjinder [facility] 2021-04-29 Outpatient Chacon, STLMLC STLMLC [id number] Common 12:44:58 Manjinder [id number] [facility] 2021-04-29 Outpatient Chacon, STLMLC STLMLC [id number] Common 12:34:29 Manjinder [facility] 2021-04-29 Outpatient Chacon, STLMLC STLMLC [id number] Common 12:27:16 Manjinder [id number] [facility] 2021-04-29 Outpatient Chacon, STLMLC STLMLC [id number] Common 12:20:23 Manjinder [id number] [facility] 2021-04-29 Outpatient Chacon, STLMLC STLMLC [id number] Common 11:59:35 Manjinder [id number] [facility] 2021-04-29 Outpatient Chacon, STLMLC STLMLC [id number] Common 11:46:14 Manjinder [id number] [facility] 2021-04-29 Outpatient Chacon, STLMLC STLMLC [id number] Common 11:27:12 Manjinder [id number] [facility] 2022-10-22 2022-10-22 [facility], 1.2.840.1 [id number] Methodi 14:00:00 23:59:00 Encounter Heaven Buckner 23389.1.[address] 3.430.2.7 Hospit a .3.909522 l .8 2022-10-22 2022-10-22 Office Chico De Souza 1.2.840.1 [id number] Methodi 13:00:00 17:31:[address] 3.430.2.7 Hospit a .3.089442 l .8 2022-10-22 2022-10-22 [facility] 1.2.840.1 [id number] Methodi 12:52:03 13:59:00 Encounter Heaven Buckner 92721.1.[address] 3.430.2.7 Hospit a .3.464442 l .8 2022-10-22 2022-10-22 Outpatient CHICO DE SOUZA [facility] [id number] [place] 00:00:00 00:00:[address] 2022-10-22 2022-10-22 Outpatient [facility] [id number] [place] 00:00:00 00:00:00 [address] 2022-10-22 2022-10-22 Outpatient [facility], [facility] [id number] [place] 00:00:00 00:00:00 HEAVEN [address] 2022-10-14 2022-10-14 Outpatient R EDUARDO ESCALANTE [facility] [id number] [facility] 08:40:00 08:40:00 EDUARDO ESCALANTE [facility] 2022-09-16 2022-09-16 Chico Bell 1.2.840.1 [id number] Methodi 00:00:00 00:00:[address] 3.430.2.7 Hospit a .3.966667 l .8 2022-09-16 2022-09-16 Chico Bell 1.2.840.1 [id number] 21 [id number] Methodi 00:00:00 00:00:[address] 3.430.2.7 Hospit a .3.970643 l .8 2022-09-15 2022-09-15 Orders Chico De Souza 1.2.840.1 [id number] Methodi 00:00:00 00:00:[address] 3.430.2.7 Hospit a .3.081297 l .8 2022-09-15 2022-09-15 Orders Carol, 1.2.840.1 [id number] Methodi 00:00:00 00:00:00 Only Shila 86776.1.[address] 3.430.2.7 Hospit a .3.117962 l .8 2022-09-15 2022-09-15 Orders Chico De Souza 1.2.840.1 [id number] Methodi 00:00:00 00:00:[address] 3.430.2.7 Hospit a .3.054466 l .8 2022-09-15 2022-09-15 Orders Carlo 1.2.840.1 [id number] Methodi 00:00:00 00:00:00 Only Shila 04798.1.[address] 3.430.2.7 Hospit a .3.384572 l .8 2022-09-06 2022-09-06 Outpatient R NICOLAS AGUAYO [facility] [id number] Univers 10:00:00 10:00:00 NICOLAS AGUAYO [facility] 2022-08-04 2022-08-05 [facility] Yogesh Lan 1.2.840.1 [id number] Methodi 12:20:00 18:30:[address] 3.430.2.7 Hospit a .3.717773 l .8 2022-08-04 2022-08-05 [facility] Yogesh Lan 1.2.840.1 [id number] Methodi 12:20:00 18:30:00 Encounter Lilian Saeed 18080.1.[address] 3.430.2.7 Hospit a .3.842976 l .8 2022-08-04 2022-08-04 Travel 1.2.840.1 1.2.982.138 [id number] Methodi 00:00:00 00:00:[address] 3.430.2.7 0.2.7.3.698 Ho spita .3.636905 084.8 l .8 2022-08-04 2022-08-04 Travel 1.2.840.1 1.2.656.589 [id number] Methodi 00:00:00 00:00:[address] 3.430.2.7 0.2.7.3.698 Ho spita .3.431887 084.8 l .8 2022-07-22 2022-07-22 Outpatient R [facility] [id number] Univers 08:40:00 09:00:26 GULSHAN ity of [facility] 2022-07-22 2022-07-22 Office [facility] 1.2.840.114 [id number] Univers 08:40:00 09:00:00 Visit Gulshan OCTAVIO 350.1.13.10 i ty of [place] [phone] [address] 2022-07-22 2022-07-22 Letter [facility] 1.2.840.114 [id number] Univers 00:00:00 00:00:00 (Out) Gulshan [place] 350.1.13.10 i ty of [place] [phone] Or dicvt NAL [address] [place] [address] 2022-07-22 2022-07-22 Refill [facility] 1.2.840.114 [id number] Univers 00:00:00 00:00:00 Gulshan [place] 350.1.13.10 i [facility] [place] [phone] Or dicvt NAL [address] [place] [address] 2022-07-05 2022-07-05 Telephone [facility] 1.2.033.335 [id number] Univers 00:00:00 00:00:00 Gulshan [place] 350.1.13.10 i [facility] [place] [id number] Or dic[address] 2022-07-03 2022-07-03 [facility] 1.2.333.017 [id number] Univers 00:00:00 00:00:00 Gulshan [place] 350.1.13.10 i ty of [place] [id number] [address] 2022-07-02 2022-07-02 [facility] [id number] Univers 10:16:00 18:00:00 GULSHAN ity of [facility] 2022-07-02 2022-07-02 [facility] ASH Cox 1.2.840.114 [id number] Univers 10:16:00 18:00:00 Encounter Gulshan NICHOLAS 350.1.13.10 ity of [facility] 4.2.7.2.686 Ronnie as [phone] [address] 2022-07-02 2022-07-02 Surgery ASH Cox 1.2.840.114 [id number] Univers 12:45:00 14:45:00 Gulshan NICHOLAS 350.1.13.10 it y of [facility] 4.2.7.2.686 Ronnie as [id number] [address] 2022-07-02 2022-07-02 Orders Doctor AGUILAR 1.2.840.114 [id number] Univers 00:00:00 00:00:00 Only Unassigned, NICHOLAS 350.1.13.10 ity of [place] [facility] 4.2.7.2.686 Ronnie as [phone] [facility] [address] 2022-07-01 2022-07-01 [facility] 1.2.120.920 [id number] Univers 00:00:00 00:00:00 Gulshan [place] 350.1.13.10 i ty [place] [id number] [place] 262069 [facility] 2022-06-29 2022-06-29 Telephone [facility] 1.2.481.641 [id number] Univers 00:00:00 00:00:00 Gulshan [place] 350.1.13.10 i ty of [place] [phone] [address] 2022-06-11 2022-06-11 Telephone ASH Cox 1.2.391.993 [id number] Univers 00:00:00 00:00:00 Gulshan NICHOLAS 350.1.13.10 it y of [facility]PITAL 4.2.7.2.686 Ronnie as [id number] [facility] [address] 2022-06-09 2022-06-09 [facility] [id number] Univers 08:40:00 09:05:19 ANGELA howard of [facility] 2022-06-09 2022-06-09 Office [facility] 1.2.840.114 [id number] Univers 08:40:00 09:05:19 Visit Angela [place] 350.1.13.10 i ty of [place] [id number] [address] 2022-06-09 2022-06-09 Orders Doctor LAUREN 1.2.840.114 [id number] Univers 00:00:00 00:00:00 Only Unassigned, NICHOLAS 350.1.13.10 ity of [place] [facility] 4.2.7.2.686 Ronnie as [phone] [address] 2022-06-09 2022-06-09 Letter [facility] 1.2.840.114 [id number] Univers 00:00:00 00:00:00 (Out) Angela Huston [place] 350.1.13.10 i ty [place] [id number] [facility] [address] [facility] 2022-06-09 2022-06-09 Telephone [facility] [id number] Univers 00:00:00 00:00:00 Angela L [place] [id number] i ty [facility] [id number] [id number] [address] 2022-06-08 2022-06-08 Telephone [facility] [id number] Univers 00:00:00 00:00:00 Gulshan [place] [id number] i ty of [id number] PROFESSIO [phone] [address] 2022-06-02 2022-06-02 Outpatient R NICOLAS AGUAYO [facility] [id number] Univers 13:30:00 13:30:00 NICOLAS AGUAYO [facility] 2022-05-27 2022-05-27 [facility] 1.2.432.612 [id number] Univers 00:00:00 00:00:00 [facility] 350.1.13.10 it y [facility] 4.2.7.2.686 Ronnie as MITUL?BLEA [phone] [address] [facility] 2022-05-27 2022-05-27 Telephone [facility] 1.2.593.873 [id number] Univers 00:00:00 00:00:00 Gulshan [place] 350.1.13.10 i ty of [facility] 4.2.[place].2.[place] [phone] [address] 2022-05-25 2022-05-25 Outpatient R AVERY [facility] [id number] Univers 10:30:00 10:30:00 [facility] 2022-05-23 2022-05-24 Outpatient U DAYSI [facility] MARINO [id number] Univers 23:33:00 20:15:00 YUMIKO ity of [facility] 2022-05-23 2022-05-24 Emergency Nahun Ortez [facility] 1.2.840. 114 [id number] Univers 23:33:00 20:15:00 Pending sale to [facility] 350.1.13 .10 ity of Yumiko Marrero 4.2.7.2.686 [place] [phone] [address] ([facility]) 2022-05-24 2022-05-24 Telephone Salena [facility] 1.2.765.894 [id number] Univers 00:00:00 00:00:00 Sendil Sheyla [place] 350.1.13.10 ity of [facility] 4.2.7.2.[place] [phone] Or dical NAL 059 [facility] 2022-05-20 2022-05-20 Painting Technician Romulo, Adc Lab Main [facility] 1.2.8 40.114 [id number] Univers 09:30:00 09:45:00 Visit Gulshan [place] 350.1.13.10 ity of [place] 4.2.7.2.[place] [phone] Or dical NAL 353 [facility] 2022-05-20 2022-05-20 Office Brooke [facility] 1.2.840.114 [id number] Univers 08:00:00 08:27:27 Visit Gulshan [place] 350.1.13.10 i ty of [facility] 4.2.7.2.[place] [phone] Or dical NAL 059 [facility] 2022-05-20 2022-05-20 Outpatient R BROOKE [facility] [id number] Univers 08:00:00 08:27:27 GULSHAN ity [facility] 2022-05-20 2022-05-20 Orders Doctor AGUILAR 1.2.840.114 [id number] Univers 00:00:00 00:00:00 Only Unassigned, NICHOLAS 350.1.13.10 ity of [place] [facility] 4.2.7.2.686 Ronnie as [phone] [address] 2022-05-18 2022-05-18 Office [facility] 1.2.840.114 [id number] Univers 08:40:00 09:26:57 Visit Angela [place] 350.1.13.10 i ty of [place] 4.2.7.2.[place] [phone] Or dicvt NAL [address] [place] [address] 2022-05-18 2022-05-18 Outpatient R NADIA [facility] [id number] Univers 08:40:00 09:26:57 ANGELA ity of [facility] 2022-05-11 2022-05-11 Telephone [facility] 1.2.226.322 [id number] Univers 00:00:00 00:00:00 Sendil Sheyla [place] 350.1.13.10 ity of [place] 4.2.7.2.[place] [phone] Or dic[address] 2022-05-10 2022-05-10 [facility] [id number] Univers 09:00:00 09:00:00 SENDIL ity of [facility] 2022-04-30 2022-04-30 (TEL) STLMLC STLMLC [id number] Co mmon 00:00:00 00:00:00 [facility] 2022-04-22 2022-04-22 Telephone [facility] 1.2.329.376 [id number] Univers 00:00:00 00:00:00 Sendil Sheyla [place] 350.1.13.10 ity of [place] 4.2.7.2.[place] [phone] Or dicvt NAL [address] [place] [address] 2022-04-22 2022-04-22 (TEL) STLMLC STLMLC [id number] Co mmon 00:00:00 00:00:00 [facility] 2022-04-20 2022-04-20 (TEL) STLMLC STLC [id number] Co mmon 00:00:00 00:00:00 [facility] 2022-04-13 2022-04-13 Telephone [facility] 1.2.617.457 [id number] Univers 00:00:00 00:00:00 Sendil Sheyla [place] 350.1.13.10 ity of [place] 4.2.7.2.[place] [phone] Or dical NAL 059 [facility] 2022-04-12 2022-04-12 [facility] [id number] Univers 07:44:55 23:59:00 SENDIL ity [facility] 2022-03-24 2022-03-24 (TEL) [facility] [id number] Co mmon 00:00:00 00:00:00 [facility] 2022-03-23 2022-03-23 [facility] [id number] Univers 16:00:00 16:00:00 SENDIL ity [facility] 2022-03-17 2022-03-17 Outpatient R [facility] [id number] Univers 15:30:00 16:18:08 SENDIL y [facility] 2022-03-17 2022-03-17 [facility] 1.2.840.114 [id number] Univers 15:30:00 16:18:08 Visit Sendil Sheyla [place] 350.1.13.10 ity of [place] 4.2.7.2.[place] [phone] Or dical NAL 059 [facility] 2022-03-17 2022-03-17 Orders Doctor LAUREN 1.2.840.114 [id number] Univers 00:00:00 00:00:00 Only Unassigned, NICHOLAS 350.1.13.10 ity of [place] [facility] 4.2.7.2.686 Ronnie as [phone] [place] [address] [place] 2022-03-12 2022-03-12 (TEL) [facility] [id number] Co mmon 00:00:00 00:00:00 [facility] 2022-02-18 2022-02-18 Documentat Katherine, 1.2.840.1 [id number] Methodi 00:00:00 00:00:00 ion Kathryn 98576.1.[address] [place] 3.430.2.7 Hospit a .3.089048 l .8 2022-02-18 2022-02-18 Documentat Katherine, 1.2.840.1 [id number] Methodi 00:00:00 00:00:00 ion Kathryn 17647.1.[address] [place] 3.430.2.7 Hospit a .3.494138 l .8 2021-10-19 2021-12-27 Office [facility], 1.2.840.1 [id number] 5239 Methodi 13:30:00 00:12:59 Visit Heaven Buckner 57352.1.[address] 3.430.2.7 Hospit a .3.511325 l .8 2021-11-13 2021-11-13 OFFICE STLMLC STLMLC [id number] Co mmon 00:00:00 00:00:00 VISIT EST Spir it PT LEVEL [address] [place] [address] 2021-10-26 2021-10-26 (TEL) STLMLC STLMLC [id number] Co mmon 00:00:00 00:00:00 [facility] 2021-10-19 2021-10-19 [facility], 1.2.840.1 [id number] [id number] Methodi 13:21:54 23:59:00 Encounter Heaven Ramosne 71125.1.[address] 3.430.2.7 Hospit a .3.412102 l .8 2021-10-19 2021-10-19 Travel 1.2.840.1 1.2.863.980 6058 [id number] Methodi 00:00:00 00:00:[address] 3.430.2.7 0.2.7.3.698 Ho spita .3.573150 084.8 l .8 2021-10-14 2021-10-14 Outpatient R SALENA [facility] [id number] Univers 09:30:00 09:30:00 [facility] 2021-10-14 2021-10-14 Outpatient Tayler [facility] [id number] Univers 09:30:00 09:30:00 SENDIL [facility] 2021-10-13 2021-10-13 (TEL) STLMLC STLMLC [id number] Co mmon 00:00:00 00:00:00 Spirit - CHI [facility] 2021-09-30 2021-09-30 [facility] [id number] Co mmon 00:00:00 00:00:00 VISIT Spirit ESTAB PT - CHI LEVEL 5 [facility] 2021-09-29 2021-09-29 Travel 1.2.840.1 1.2.053.833 2137 [id number] Methodi 00:00:00 00:00:[address] 3.430.2.7 0.2.7.3.698 Ho spita .3.308252 084.8 l .8 2021-09-29 2021-09-29 Orders Katherine, 1.2.840.1 [id number] 57804 Methodi 00:00:00 00:00:00 Only Kathryn 93056.1.[address] [place] 3.430.2.7 Hospit a .3.485333 l .8 2021-09-19 2021-09-19 Nurse LAUREN Nguyễn 1.2.840.114 [id number] 00 Univers 00:00:00 00:00:00 Triage Cherylcarmelinanicky [place] 350.1.13.10 [facility] 4.2.7.2.686 Ronnie as [phone] [address] 2021-09-15 2021-09-15 Orders Katherine, 1.2.840.1 [id number] 91678 Methodi 00:00:00 00:00:00 Only Kathryn 93317.1.[address] [place] 3.430.2.7 Hospit a .3.051671 l .8 2021-09-15 2021-09-15 Orders Medina, 1.2.840.1 [id number] 0369 Methodi 00:00:00 00:00:00 Only Shila 52293.1.[address] 3.430.2.7 Hospit a .3.481738 l .8 2021-09-14 2021-09-14 Documentat Medina, 1.2.840.1 [id number] Methodi 00:00:00 00:00:00 ion Shila 46902.1.[address] 3.430.2.7 Hospit a .3.315230 l .8 2021-09-14 2021-09-14 Telephone Salena [facility] 1.2.015.001 5517 8979 Univers 00:00:00 00:00:00 [facility]ly [facility] 350.1.13.10 ity of [place] 4.2[address]7.[address] [facility] [phone] [place] 074969 Branch OFFICE BUILDING 2021-09-14 2021-09-14 (TEL) STLMLC STLMLC [id number] Co mmon 00:00:00 00:00:00 [facility] 2021-09-14 2021-09-14 Orders Katherine, 1.2.840.1 [id number] 50130 Methodi 00:00:00 00:00:00 Only Kathryn 00268.1.[address] [place] 3.430.2.7 Hospit a .3.573653 l .8 2021-08-26 2021-09-09 Hospital Debbie, 1.2.840.1 [id number] Methodi 21:45:00 20:00:00 Encounter Acacia 55499.1.[address] 3.430.2.7 Hospit a .3.966920 l .8 2021-09-09 2021-09-09 (TEL) STLMLC STLMLC [id number] Co mmon 00:00:00 00:00:00 [facility] 2021-08-08 2021-08-26 Hospital HerkimerJoelien 1.2.840.1 [id number] Methodi 18:19:00 21:44:00 Encounter Fredi Schmid 40202.1.[address] Acacia Lewis 3.430.2.7 Hospita Priscila, Lauren .3.112079 l PosRichelle james .8 2021-08-19 2021-08-19 Anesthesia Groen, 1.2.840.1 [id number] 628 [id number] Methodi 11:42:00 16:30:00 Event Alex 97621.1.[address] Art 3.430.2.7 Hospit a .3.137433 l .8 2021-08-19 2021-08-19 Surgery Sharon, 1.2.840.1 [id number] [id number] 1242 Methodi 10:55:00 15:10:00 Heaven Buckner 89634.1.[address] 3.430.2.7 Hospit a .3.568191 l .8 2021-08-13 2021-08-13 (TEL) STLMLC STLMLC [id number] Co mmon 00:00:00 00:00:00 [facility] 2021-08-12 2021-08-12 (TEL) STLMLC STLMLC [id number] Co mmon 00:00:00 00:00:00 [facility] 2021-08-11 2021-08-11 (TEL) STLMLC STLMLC [id number] Co mmon 00:00:00 00:00:00 [facility] 2021-08-08 2021-08-08 Travel 1.2.840.1 1.2.468.767 8039 322382 Methodi 00:00:00 00:00:[address] 3.430.2.7 0.2.7.3.698 Ho spita .3.687494 084.8 l .8 2021-08-07 2021-08-07 (TEL) STLMLC STLMLC [id number] Co mmon 00:00:00 00:00:00 [facility] 2021-08-04 2021-08-04 (TEL) STLMLC STLMLC [id number] Co mmon 00:00:00 00:00:00 [facility] 2021-08-03 2021-08-03 Telephone LAUREN Martino 1.2.871.135 [id number] [id number] Univers 00:00:00 00:00:00 Sendtequila [place] 350.1.13.10 [facility] 4.2.7.2.686 Ronnie as [phone] [facility] [address] 2021-07-23 2021-07-23 [facility] [id number] Univers 13:00:00 14:06:54 SENDIL ity [facility] 2021-07-23 2021-07-23 Office [facility] 1.2.840.114 [id number] Univers 13:00:00 14:06:54 Visit Imani [place] 350.1.13.10 [facility] [place].7.2.[place] [phone] Or dical [facility] [address] [facility] 2021-06-23 2021-06-23 (TEL) STLMLC STLMLC [id number] Co mmon 00:00:00 00:00:00 [facility] 2021-05-24 2021-05-24 Nurse LAUREN Simms 1.2.840.114 [id number] Univers 00:00:00 00:00:00 Triage Rupinder PET[place] 350.1.13.10 it [facility] 4.2.7.2.686 Ronnie as [phone] [facility] 019 [address] 2021-05-23 2021-05-23 (TEL) STLMLC STLMLC [id number] Co mmon 00:00:00 00:00:00 [facility] 2021-05-14 2021-05-14 (TEL) STLMLC STLMLC [id number] Co mmon 00:00:00 00:00:00 [facility] 2021-05-07 2021-05-07 OFFICE STLMLC STLMLC [id number] Co mmon 00:00:00 00:00:00 VISIT [facility] PT - CHI LEVEL 4 [facility] 2021-05-05 2021-05-05 (TEL) STLMLC STLMLC [id number] Co mmon 00:00:00 00:00:00 [facility] 2021-05-01 2021-05-01 (TEL) STLMLC STLMLC [id number] Co mmon 00:00:00 00:00:00 [facility] 2021-04-10 2021-04-10 (TEL) STLMLC STLMLC [id number] Co mmon 00:00:00 00:00:00 [facility] 2021-04-06 2021-04-06 (TEL) STLMLC STLMLC [id number] Co mmon 00:00:00 00:00:00 [facility] 2021-04-06 2021-04-06 OFFICE STLMLC STLMLC [id number] Co mmon 00:00:00 00:00:00 VISIT [facility] PT - CHI LEVEL 4 [facility] 2021-02-12 2021-02-12 (TEL) STLMLC STLMLC [id number] Co mmon 00:00:00 00:00:00 [facility] 2021-02-09 2021-02-09 Emergency [facility] [id number] Univers 21:28:00 23:35:00 FANNIE ity of [facility] 2021-02-09 2021-02-09 Emergency [facility] 1.2.080.750 [id number] Univers 21:28:00 23:35:00 Fannie [place] 350.1.13.10 i ty of [place] 4.2.7.2.686 [facility] [phone] [place] [address] Branch 2021-02-09 2021-02-09 Orders Doctor LAUREN 1.2.840.114 [id number] Univers 00:00:00 00:00:00 Only Unassigned, NICHOLAS 350.1.13.10 ity of [place] [facility] 4.2.7.2.686 Ronnie as [phone] [address] 2021-01-29 2021-01-29 (TEL) STLMLC STLMLC [id number] Co mmon 00:00:00 00:00:00 [facility] 2021-01-27 2021-01-27 Office Salena [facility] 1.2.840.114 [id number] Univers 08:24:21 09:10:00 Visit Imani [place] 350.1.13.10 ity [facility] 4[place]2.7.2.[place] Profess[place] [phone] Or dic[address] 2021-01-27 2021-01-27 Outpatient R [facility] [id number] Univers 08:30:00 08:30:00 SENDIL ity [facility] 2021-01-27 2021-01-27 Orders Doctor AGUILAR 1.2.840.114 [id number] Univers 00:00:00 00:00:00 Only Unassigned, NICHOLAS 350.1.13.10 ity of [facility] 4.2.7.2.686 Ronnie as [phone] [address] 2021-01-27 2021-01-27 Letter Salena [facility] 1.2.840.114 [id number] Univers 00:00:00 00:00:00 (Out) Imani [place] 350.1.13.10 ity of [place].2.[place] Profess[place] [phone] Or dical nal 9 [facility] 2021-01-25 2021-01-25 (TEL) STLMLC STLMLC [id number] Co mmon 00:00:00 00:00:00 [facility] 2021-01-22 2021-01-22 (TEL) STLMLC STLMLC [id number] Co mmon 00:00:00 00:00:00 [facility] 2021-01-19 2021-01-19 (TEL) STLMLC STLMLC [id number] Co mmon 00:00:00 00:00:00 [facility] 2020-12-10 2020-12-10 OFFICE STLMLC STLMLC [id number] Co mmon 00:00:00 00:00:00 VISIT [facility] 4 [facility] 2020-11-21 2020-11-21 (TEL) STLMLC STLMLC [id number] Co mmon 00:00:00 00:00:00 [facility] 2020-11-18 2020-11-18 (TEL) STLMLC STLMLC [id number] Co mmon 00:00:00 00:00:00 [facility] 2020-11-05 2020-11-05 Outpatient STLMLC STLMLC [id number] Common 00:00:00 00:00:00 [facility] 2020-10-30 2020-10-30 Outpatient Tayler [facility] [id number] Univers 11:30:00 11:30:00 [facility] 2020-09-15 2020-09-15 Outpatient STLMLC STLMLC [id number] Common 00:00:00 00:00:00 [facility] 2020-09-04 2020-09-04 Outpatient Tayler [facility] [id number] Univers 11:00:00 11:00:00 [facility] 2020-08-20 2020-08-20 Outpatient STLMLC STLMLC [id number] Common 00:00:00 00:00:00 [facility] 2020-08-19 2020-08-19 Outpatient STLMLC STLMLC [id number] Common 00:00:00 00:00:00 [facility] 2020-07-15 2020-07-15 Outpatient Tayler [facility] [id number] Univers 10:00:00 10:00:00 [facility] 2020-07-11 2020-07-11 Outpatient STLMLC STLMLC [id number] Common 00:00:00 00:00:00 [facility] 2020-07-10 2020-07-10 Outpatient STLMLC STLMLC [id number] Common 00:00:00 00:00:00 [facility] 2020-07-02 2020-07-02 Outpatient STLMLC STLMLC [id number] Common 00:00:00 00:00:00 [facility] 2020-06-29 2020-06-29 Outpatient STLMLC STLMLC [id number] Common 00:00:00 00:00:00 [facility] 2020-06-10 2020-06-10 Outpatient STLMLC STLMLC [id number] Common 00:00:00 00:00:00 [facility] 2020-06-03 2020-06-03 Outpatient STLMLC STLMLC [id number] Common 00:00:00 00:00:00 [facility] 2020-06-02 2020-06-02 Telephone [facility] 1.2.765.651 [id number] Univers 00:00:00 00:00:00 Imani [place] 350.1.13.10 ity [facility] [place]2.7.2.[place] [phone] [address] 2020-06-02 2020-06-02 [facility]phone [facility] 1.2.242.315 [id number] 3514 00:00:00 00:00:00 Imani Cunningham 350.1.13.10 [place] 4.2.7.2.[address] Professio [phone] 2020-05-31 2020-05-31 Outpatient STLMLC STLMLC [id number] Common 00:00:00 00:00:00 [facility] 2020-05-07 2020-05-07 Outpatient STLMLC STLMLC [id number] Common 00:00:00 00:00:00 [facility] 2020-05-05 2020-05-05 Telephone [facility] 1.2.583.299 [id number] Univers 00:00:00 00:00:00 Imani Cunningham 350.1.13.10 ity of [place].2.[place] [phone] Or dical nal [address] [place] [address] 2020-05-05 2020-05-05 [facility] 1.2.335.401 [id number] 6549 00:00:00 00:00:00 Sendil [facility] 350.1.13.10 [place] 4.2.7.2.686 Professio [phone] [address] 2020-05-02 2020-05-02 [facility] 1.2.840.114 [id number] [facility] 08:58:15 23:59:00 Encounter Sendil [facility] 350.1.13.10 ity [place] AT [phone] Or dic[address] 2020-05-02 2020-05-02 [facility] 1.2.840.114 [id number] 08:58:15 23:59:00 Encounter Sendil [facility] 350.1.13.10 CARE 4.2.7.2.686 CENTER AT [phone] [address] 2020-05-02 2020-05-02 [facility] [id number] Univers 09:00:00 09:00:00 SENDIL ity [facility] 2020-05-02 2020-05-02 [facility] 1.2.840.114 [id number] Univers 08:32:07 08:57:00 Encounter Sendil [facility] 350.1.13.10 ity of [place]2.[place] AT [phone] Or dic[address] 2020-05-02 2020-05-02 [facility] 1.2.840.114 [id number] 08:32:07 08:57:00 Encounter Sendil [facility] 350.1.13.10 CARE 4.2.7.2.686 CENTER AT [phone] [address] 2020-05-02 2020-05-02 [facility] 1.2.840.114 [id number] Univers 08:31:50 08:31:50 Encounter Sendil [facility] 350.1.13.10 ity [place] AT [phone] [address] 2020-05-02 2020-05-02 [facility] 1.2.840.114 [id number] [facility] 08:31:50 08:31:50 Encounter Sendil [facility] 350.1.13.10 CARE 4.2.7.2.686 CENTER AT [phone] [address] 2020-05-02 2020-05-02 [facility] 1.2.840.[id number] [place] [address] 08:31:12 08:31:12 Encounter Sendil [facility] 350.1.13.10 ity of [place] AT [phone] [address] 2020-05-02 2020-05-02 [facility] 1.2.840.114 [id number] [facility] 08:31:12 08:31:12 Encounter Sendil [facility] 350.1.13.10 CARE 4.2.7.2.686 CENTER AT [phone] [address] 2020-04-24 2020-04-24 Outpatient [facility] [id number] Univers 10:30:00 10:30:00 SENDIL ity of [facility] 2020-04-16 2020-04-16 Outpatient STLMLC STLMLC [id number] Common 00:00:00 00:00:00 [facility] 2020-04-11 2020-04-11 Orders Doctor AGUILAR 1.2.840.114 [id number] Univers 00:00:00 00:00:00 Only Unassigned, NICHOLAS 350.1.13.10 ity of [place] [facility] 4.2.7.2.686 Ronnie as [phone] [address] 2020-04-11 2020-04-11 Orders Doctor LAUREN 1.2.840.114 [id number] 00:00:00 00:00:00 Only Unassigned, NICHOLAS 350.1.13.10 [place] [facility] [phone] 009 2020-04-10 2020-04-10 Telephone [facility] 1.2.957.613 [id number] 8005 Univers 00:00:00 00:00:00 Imani Cunningham 350.1.13.10 ity [place]2.[place] [phone] Or dic[address] 2020-04-09 2020-04-09 [facility] 1.2.069.942 [id number] 4515 Univers 00:00:00 00:00:00 Imani Cunningham 350.1.13.10 ity of [place].2.[place] [phone] Or dic[address] 2020-04-08 2020-04-08 [facility] 1.2.211.525 [id number] 4533 Univers 00:00:00 00:00:00 Imani Cunningham 350.1.13.10 ity of [place] 4[place].2.[place] [phone] Or dic[address] 2020-04-08 2020-04-08 [facility] 1.2.779.779 [id number] 4533 00:00:00 00:00:00 Imani Cunningham 350.1.13.10 [place] 4.2.7.2.686 Professio [phone] [address] 2020-04-01 2020-04-01 Office [facility] 1.2.840.114 [id number] Univers 10:44:06 12:00:21 Visit Imani Cunningham 350.1.13.10 ity of [place].2.[place] [phone] Or dic[address] 2020-04-01 2020-04-01 [facility] [id number] Univers 11:00:00 11:00:00 SENDIL itkirill [facility] 2020-04-01 2020-04-01 Telephone [facility] 1.2.943.291 [id number] Univers 00:00:00 00:00:00 Liil Sheyla Cunningham 350.1.13.10 ity [facility] [place] [phone] [address] 2020-04-01 2020-04-01 Outpatient STLMLC ST[facility] [id number] Common 00:00:00 00:00:00 [facility] 2020-03-31 2020-03-31 Outpatient STLMLC ST[facility] [id number] Common 00:00:00 00:00:00 [facility] 2020-03-24 2020-03-24 Outpatient STLMLC STL[facility] [id number] Common 00:00:00 00:00:00 [facility] 2020-03-17 2020-03-17 [facility] [id number] Univers 00:00:00 00:00:00 Imani Cunningham 350.1.13.10 ity [facility] [place] [phone] [address] 2020-03-17 2020-03-17 Outpatient STLMLC STL[facility] [id number] Common 00:00:00 00:00:00 [facility] 2020-03-12 2020-03-12 Outpatient STLMLC STL[facility]C [id number] Common 00:00:00 00:00:00 [facility] 2020-03-11 2020-03-11 Outpatient STLMLC STLMLC [id number] Common 00:00:00 00:00:00 [facility] 2020-03-03 2020-03-03 Outpatient STLMLC ST[facility] [id number] Common 00:00:00 00:00:00 [facility] 2020-02-14 2020-02-14 Outpatient STLMLC ST[facility] [id number] Common 00:00:00 00:00:00 [facility] 2020-02-11 2020-02-11 Outpatient STLMLC ST[facility] [id number] Common 00:00:00 00:00:00 [facility] 2020-02-08 2020-02-08 Outpatient STLMLC ST[facility] [id number] Common 00:00:00 00:00:00 [facility] 2020-02-01 2020-02-01 Outpatient R [facility] [id number] Univers 16:00:00 16:00:00 ity of [facility] 2020-02-01 2020-02-01 Nurse Visit, [facility] Nurse [facility] [id number] Univers 07:53:14 08:46:38 Visit Imani Martino 350.1.13. 10 [place] [phone] Or dical nal [address] [place] [address] 2020-01-30 2020-01-30 Outpatient STLMLC STL[facility] [id number] Common 00:00:00 00:00:00 [facility] 2020-01-29 2020-01-29 Office Salena [facility] [id number] Univers 11:10:54 12:45:41 Visit Imani Cunningham 350.1.13.10 ity [facility] [place] [phone] Or dical nal [address] [place] [address] 2020-01-29 2020-01-29 [facility] [id number] Univers 11:30:00 11:30:00 SENDIL ity [facility] 2020-01-29 2020-01-29 Orders Doctor AGUILAR [id number] Univers 00:00:00 00:00:00 Only Unassigned, NICHOLAS 350.1.13.10 [facility] 4.2.7.2.686 Ronnie as [phone] [address] 2020-01-23 2020-01-23 Outpatient [facility]LMLC ST[facility] [id number] Common 00:00:00 00:00:00 [facility] 2020-01-22 2020-01-22 Outpatient STLMLC ST[facility] [id number] Common 00:00:00 00:00:00 [facility] 2020-01-16 2020-01-16 Orders Doctor LAUREN [id number] Univers 00:00:00 00:00:00 Only Unassigned, NICHOLAS 350.1.13.10 ity of [facility] 4.2.7.2.686 Ronnie as [phone] [address] 2020-01-15 2020-01-15 Outpatient [facility]LMLC ST[facility] [id number] Common 00:00:00 00:00:00 [facility] 2020-01-10 2020-01-10 Telephone Salena [facility] [id number] Univers 00:00:00 00:00:00 Sendtequila Cunningham 350.1.13.10 [place] [phone] Me dical nal [address] [facility] 2020-01-09 2020-01-09 Outpatient STLMLC STLMLC [id number] Common 00:00:00 00:00:00 [facility] 2020-01-07 2020-01-07 Orders Doctor LAUREN [id number] Univers 00:00:00 00:00:00 Only Unassigned, NICHOLAS 350.1.13.10 ity of [facility] 4.2.7.2.686 Ronnie as [phone] [address] 2020-01-07 2020-01-07 Outpatient STLMLC [facility] [id number] Common 00:00:00 00:00:00 [facility] 2020-01-03 2020-01-03 [facility] [id number] Univers 11:07:14 12:05:52 Visit Angelina Cunningham 350.1.13.10 i [place] [phone] Me dical nal [address] [facility] 2020-01-03 2020-01-03 Outpatient R JONI, [facility] [id number] Univers 11:15:00 11:15:00 ANGELINA itkirill [facility] 2020-01-01 2020-01-01 Outpatient R JONI, [facility] [id number] Univers 15:30:00 15:30:00 ANGELINA howard [facility] 2019-12-19 2019-12-19 [facility] [id number] Common 16:30:00 16:30:[address] [employer] [address] [facility] 2019-12-18 2019-12-18 [facility] [id number] Common 13:33:00 13:33:[address] [employer] [address] [facility] 2019-12-18 2019-12-18 Laboratory Pc, Adc Echo Room 1 - [facility] 1 .2.840.114 [id number] Univers 09:52:20 11:27:29 Only Imani Martino 350.1.13. 10 ity [facility] [place] [phone] Or dical nal 059 [facility] 2019-12-18 2019-12-18 Outpatient R [facility] [id number] Univers 10:00:00 10:00:00 ity of [facility] 2019-12-13 2019-12-13 Office Salena [facility] 1.2.840.114 [id number] Univers 10:43:37 11:48:34 Visit Imani Cunningham 350.1.13.10 ity [facility] [place] [phone] Or dical nal 059 [facility] 2019-12-13 2019-12-13 [id number] Univers 11:00:00 11:00:00 SENDIL ity [facility] 2019-12-13 2019-12-13 Orders Doctor AGUILAR 1.2.840.114 [id number] Univers 00:00:00 00:00:00 Only ChristyssNICHOLAS kurtz 350.1.13.10 ity of [facility] 4.2.7.2.686 Ronnie as [phone] [place] [address] [place] 2019-12-13 2019-12-13 [facility] 1.2.840.114 [id number] Univers 00:00:00 00:00:00 Imani Cunningham 350.1.13.10 ity [place] [phone] Or dical [facility] 059 [address] [facility] 2019-12-09 2019-12-09 Out[facility] [id number] Common 17:43:00 17:43:[address] [facility] 2019-12-04 2019-12-04 Outpatient Tayler QUINONES [facility] [id number] Univers 13:30:00 13:30:00 ANGELINA howard [facility] 2019-11-26 2019-11-26 Outpatient [facility] [id number] Common 15:17:00 15:17:[address] [facility] 2019-11-24 2019-11-24 Out[facility] [id number] Common 15:24:00 15:24:[address] [facility] 2019-11-22 2019-11-22 Outpatient [facility] [id number] Common 16:03:00 16:03:[address] [facility] 2019-11-19 2019-11-19 Outpatient [facility] [id number] Common 14:35:00 14:35:[address] [facility] 2019-11-16 2019-11-16 Out[facility] [id number] Common 09:15:00 09:15:[address] [facility] 2019-11-09 2019-11-09 Outpatient SLSL [facility] [id number] [facility] 00:00:00 00:00:00 2019-11-08 2019-11-08 [facility] [id number] Common 09:12:00 09:12:[address] [facility] 2019-11-08 2019-11-08 Outpatient SLSL [facility] [id number] [facility] 00:00:00 00:00:00 2019-11-08 2019-11-08 Outpatient EL [facility]SL [facility] [id number] [facility] 00:00:00 00:00:00 2019-11-02 2019-11-02 Outpatient SLSL [facility] [id number] [facility] 00:00:00 00:00:00 2019-11-01 2019-11-01 Outpatient SLSL [facility] [id number] [facility] 00:00:00 00:00:00 2019-11-01 2019-11-01 Outpatient EL SLSL [facility] [id number] [facility]SL 00:00:00 00:00:00 2019-10-30 2019-10-30 Out[facility] [id number] Common 17:05:00 17:05:[address] [facility] 2019-10-29 2019-10-29 Outpatient [facility] [id number] Common 15:04:00 15:04:[address] [facility] 2019-10-29 2019-10-29 Out[facility] [id number] Common 08:06:00 08:06:[address] [facility] 2019-10-23 2019-10-23 Office Joni [facility] [id number] Univers 15:00:23 15:30:23 Visit Angelina Cunningham 350.1.13.10 ghazala Rooney 4.2.7.2.686 iAram Samson [phone] [address] 2019-10-23 2019-10-23 Outpatient R JONI [facility] [id number] Univers 15:00:00 15:00:00 ANGELINA howard [facility] 2019-10-23 2019-10-23 Orders Doctor AGUILAR 1.2.840.114 [id number] Univers 00:00:00 00:00:00 Only Unassigned, NICHOLAS 350.1.13.10 ity of [place] 4.2.7.2.686 Ronnie as [phone] [address] 2019-10-22 2019-10-22 Outpatient Asher Sterlingt 31 [id number] Common 12:23:00 12:23:[address] [facility] 2019-10-18 2019-10-18 Outpatient [id number] Common 14:30:00 14:30:[address] [facility] 2019-09-20 2019-09-20 Outpatient Asher [facility] [id number] Common 09:00:00 09:00:[address] [facility] 2019-09-20 2019-09-20 Orders Doctor LAUREN 1.2.840.114 [id number] Univers 00:00:00 00:00:00 Only Unassigned, NICHOLAS 350.1.13.10 ity of [place] [facility] 4.2.7.2.686 Ronnie as [phone] [address] 2018-11-28 2018-11-28 [facility] [id number] Univers 00:00:00 00:00:00 Ismael S Health 350.1.13.10 it y of Surgical 4.2.7.2.686 Ronnie as Specialti [phone] Or dical es 198 [facility] 2018-11-27 2018-11-27 Telephone [facility] 1.2.840.114 [id number] Univers 00:00:00 00:00:00 Denys L Health 350.1.13.10 it y of Surgical 4.2.7.2.686 Ronnie as Specialti [phone] Or dical es 198 [facility] Results Test Description Test Time Test Comments Results Result Comments Source ECG 12 lead 2022-08-05 22:59:20 Test Item Value Reference Range Interpretation Comme nts Ventricular rate (test code = 253) 62 Atrial rate (test code = 255) 62 WI interval (test code = 266) 196 QRSD [...] of 04-AUG-2022 16:36,-No significant change was found- [facility] 12 [id number] 22:59:20 Test Item Value Reference Range Interpretation Comments Ventricular rate (test 62 code = 253) Atrial rate (test code 62 = 255) WI interval (test code 196 = 266) QRSD interval (test 88 code = 260) QT interval (test code 428 = 264) QTC interval (test code 434 = 265) P axis 1 (test code = 27 267) QRS axis 1 (test code = 18 268) T wave axis (test code 22 = 270) EKG impression (test Normal sinus code = 273) rhythm-Normal ECG-In automated comparison with ECG of 04-AUG-2022 16:36,-No significant change was found- [facility] METABOLIC PANEL (NA, K, CL, CO2, GLUCOSE, BUN, CREATININE, CA)2022-07-02 17:07:27 Test Item Value Reference Range Interpretation Comments NA (test code = 137 mmol/L 135-145 2988360555) K (test code = 3.2 mmol/L 3.5-5.0 L 5261555430) CL (test code = 100 mmol/L 98-108 4895836638) CO2 TOTAL (test code = 30 mmol/L 23-31 5924510581) AGAP (test code = 7 2-16 3300924906) BUN (test code = 16 mg/dL 7-23 1958565923) GLUCOSE (test code = 104 mg/dL 70-110 2398862299) CREATININE (test code = 0.77 mg/dL 0.50-1.04 4315453863) CALCIUM (test code = 8.8 mg/dL 8.6-10.6 2583373152) eGFR (test code = 80.4 mL/min/1.73m2 7639105375) BEHZAD (test code = BEHZAD) Association of [...] tests). Lab Interpretation Abnormal (test code = 37258-1) [facility] METABOLIC PANEL (NA, K, CL, CO2, GLUCOSE, BUN, CREATININE, CA)2022-07-02 17:07:27 Test Item Value Reference Range Interpretation Comments NA (test code = 137 mmol/L 135-145 0625124459) K (test code = 3.2 mmol/L 3.5-5.0 L 7374261730) CL (test code = 100 mmol/L 98-108 9981638071) CO2 TOTAL (test code = 30 mmol/L 23-31 8968042612) AGAP (test code = 7 2-16 0272815892) BUN (test code = 16 mg/dL 7-23 6600809677) GLUCOSE (test code = 104 mg/dL 70-110 6520011442) CREATININE (test code = 0.77 mg/dL 0.50-1.04 8446558699) CALCIUM (test code = 8.8 mg/dL 8.6-10.6 2028139187) eGFR (test code = 80.4 mL/min/1.73m2 6166867320) BEHZAD (test code = BEHZAD) Association of [...] tests). Lab Interpretation Abnormal (test code = 52213-4) [facility] METABOLIC PANEL (NA, K, CL, CO2, GLUCOSE, BUN, CREATININE, CA)2022-07-02 17:07:27 Test Item Value Reference Range Interpretation Comments NA (test code = 137 mmol/L 135-145 9013028252) K (test code = 3.2 mmol/L 3.5-5.0 L 4988211659) CL (test code = 100 mmol/L 98-108 8942474821) CO2 TOTAL (test code = 30 mmol/L 23-31 0147930423) AGAP (test code = 7 2-16 7543866250) BUN (test code = 16 mg/dL 7-23 0503829495) GLUCOSE (test code = 104 mg/dL 70-110 8410022117) CREATININE (test code = 0.77 mg/dL 0.50-1.04 6480971435) CALCIUM (test code = 8.8 mg/dL 8.6-10.6 4472826665) eGFR (test code = 80.4 mL/min/1.73m2 7092568081) BEHZAD (test code = BEHZAD) Association of [...] tests). Lab Interpretation Abnormal (test code = 56640-4) [facility] [id number] 16:54:42 Test Item Value Reference Range Interpretation Comments PROTIME PATIENT (test 12.8 See_Comment H [Auto mated message] code = 5964-2) The system [employer] generated this result transmitted ref erence range: 10.1 - 1 2.6 Seconds. The reference range was not used to int erpret this result as normal/abnormal . INR (test code = 6301-6) 1.2 Nor mal INR <1.1; Warfarin Therap eutic range 2.0 to 3. 0 or 2.5 to 3.5, dep ending upon the indica tions. Lab Interpretation (test Abnormal code = 27828-2) [facility] [id number] 16:54:42 Test Item Value Reference Range Interpretation Comments PROTIME PATIENT (test 12.8 See_Comment H [Auto mated message] code = 5964-2) The system [employer] generated this result transmitted ref erence range: 10.1 - 1 2.6 Seconds. The reference range was not used to int erpret this result as normal/abnormal . INR (test code = 6301-6) 1.2 Nor mal INR <1.1; Warfarin Therap eutic range 2.0 to 3. 0 or 2.5 to 3.5, dep ending upon the indica tions. Lab Interpretation (test Abnormal code = 87430-1) [facility] / [id number] 16:54:42 Test Item Value Reference Range Interpretation Comments PROTIME PATIENT (test 12.8 See_Comment H [Auto mated message] code = 5964-2) The system [employer] generated this result transmitted ref erence range: 10.1 - 1 2.6 Seconds. The reference range was not used to int erpret this result as normal/abnormal . INR (test code = 6301-6) 1.2 Nor mal INR <1.1; Warfarin Therap eutic range 2.0 to 3. 0 or 2.5 to 3.5, dep ending upon the indica tions. Lab Interpretation (test Abnormal code = 84861-1) [facility] WITH [id number] 16:53:20 Test Item Value Reference Range Interpretation [...] RDW-SD (test code = 40.9 fL 39.0-49.9 58080-3) RDW-CV (test code = 13.3 % 12.0-15.5 788-0) PLT (test code = 363 See_Comment H [Automated 777-3) message] The sy stem which generated this result transmitted reference range : 166 - 358 10*3/ ?L. The reference r benito was not used to interpret this result as normal/abnormal . MPV (test code = 8.9 fL 9.5-12.9 L 80157-4) NRBC/100 WBC (test 0.0 See_Comment [Automat ed code = 9386217687) message] The system which generated this result transmitted reference range : 0.0 - 10.0 /100 WBCs. The refer ence range was not u sed to interpret th is result as normal/abnormal . NRBC x10^3 (test code See_Comment [Auto mated = 0650334545) message] The s ystem which generated this result transmitted reference range : 10*3/?L. The reference range was not used to interpret this result as normal/abnormal . GRAN MAT (NEUT) % 65.9 % (test code = 770-8) IMM GRAN % (test code 0.20 % = 1476519979) LYMPH % (test code = 22.7 % 736-9) MONO % (test code = 8.0 % 5905-5) EOS % (test code = 2.5 % 713-8) BASO % (test code = 0.7 % 706-2) GRAN MAT x10^3(ANC) 5.33 10*3/uL 1.88-7.09 (test code = 7066422916) IMM GRAN x10^3 (test 0.00-0.06 code = 4639671063) LYMPH x10^3 (test code 1.84 10*3/uL 1.32-3.29 = 731-0) MONO x10^3 (test code 0.65 10*3/uL 0.33-0.92 = 742-7) EOS x10^3 (test code = 0.20 10*3/uL 0.03-0.39 711-2) BASO x10^3 (test code 0.06 10*3/uL 0.01-0.07 = 704-7) Lab Interpretation Abnormal (test code = 22016-9) [facility] WITH [id number] 16:53:20 Test Item Value Reference Range Interpretation Comments WBC (test code = 8.10 See_Comment [Automated 6290-2) message] The sy stem which generated this result transmitted reference range : 4.30 - 11.10 10*3/?L. The reference range was not used to interpret this result as normal/abnormal . RBC (test code = 5.22 See_Comment [Automated 009-8) message] The sy stem which generated this [...] RDW-SD (test code = 40.9 fL 39.0-49.9 91769-3) RDW-CV (test code = 13.3 % 12.0-15.5 788-0) PLT (test code = 363 See_Comment H [Automated 777-3) message] The sy stem which generated this result transmitted reference range : 166 - 358 10*3/ ?L. The reference r benito was not used to interpret this result as normal/abnormal . MPV (test code = 8.9 fL 9.5-12.9 L 16092-0) NRBC/100 WBC (test 0.0 See_Comment [Automat ed code = 8363366793) message] The system which generated this result transmitted reference range : 0.0 - 10.0 /100 WBCs. The refer ence range was not u sed to interpret th is result as normal/abnormal . NRBC x10^3 (test code See_Comment [Auto mated = 1042531249) message] The s ystem which generated this result transmitted reference range : 10*3/?L. The reference range was not used to interpret this result as normal/abnormal . GRAN MAT (NEUT) % 65.9 % (test code = 770-8) IMM GRAN % (test code 0.20 % = 2352126462) LYMPH % (test code = 22.7 % 736-9) MONO % (test code = 8.0 % 5905-5) EOS % (test code = 2.5 % 713-8) BASO % (test code = 0.7 % 706-2) GRAN MAT x10^3(ANC) 5.33 10*3/uL 1.88-7.09 (test code = 4994424236) IMM GRAN x10^3 (test 0.00-0.06 code = 3555817143) LYMPH x10^3 (test code 1.84 10*3/uL 1.32-3.29 = 731-0) MONO x10^3 (test code 0.65 10*3/uL 0.33-0.92 = 742-7) EOS x10^3 (test code = 0.20 10*3/uL 0.03-0.39 711-2) BASO x10^3 (test code 0.06 10*3/uL 0.01-0.07 = 704-7) Lab Interpretation Abnormal (test code = 63398-7) [facility] WITH [id number] 16:53:20 Test Item Value Reference Range Interpretation [...] RDW-SD (test code = 40.9 fL 39.0-49.9 20948-8) RDW-CV (test code = 13.3 % 12.0-15.5 788-0) PLT (test code = 363 See_Comment H [Automated 777-3) message] The sy stem which generated this result transmitted reference range : 166 - 358 10*3/ ?L. The reference r benito was not used to interpret this result as normal/abnormal . MPV (test code = 8.9 fL 9.5-12.9 L 84641-9) NRBC/100 WBC (test 0.0 See_Comment [Automat ed code = 2266527488) message] The system which generated this result transmitted reference range : 0.0 - 10.0 /100 WBCs. The refer ence range was not u sed to interpret th is result as normal/abnormal . NRBC x10^3 (test code See_Comment [Auto mated = 8878522803) message] The s ystem which generated this result transmitted reference range : 10*3/?L. The reference range was not used to interpret this result as normal/abnormal . GRAN MAT (NEUT) % 65.9 % (test code = 770-8) IMM GRAN % (test code 0.20 % = 2748800035) LYMPH % (test code = 22.7 % 736-9) MONO % (test code = 8.0 % 5905-5) EOS % (test code = 2.5 % 713-8) BASO % (test code = 0.7 % 706-2) GRAN MAT x10^3(ANC) 5.33 10*3/uL 1.88-7.09 (test code = 1722617765) IMM GRAN x10^3 (test 0.00-0.06 code = 7847764242) LYMPH x10^3 (test code 1.84 10*3/uL 1.32-3.29 = 731-0) MONO x10^3 (test code 0.65 10*3/uL 0.33-0.92 = 742-7) EOS x10^3 (test code = 0.20 10*3/uL 0.03-0.39 711-2) BASO x10^3 (test code 0.06 10*3/uL 0.01-0.07 = 704-7) Lab Interpretation Abnormal (test code = 43003-6) [facility] (Total Cholesterol, Triglycerides, HDL)2022-05-24 11:25:37 Test Item Value Reference Range Interpretation Comments CHOL (test code = 0806242682) 222 mg/dL 120-200 H HDL (test code = 8499080010) 31 mg/dL >=50 L HDLC RATIO (test code = 8197443983) 7.2 <=4.5 H TRIG (test code = 0855094638) 214 mg/dL 30-170 H LDL CHOL (test code = 44673-3) 148 mg/dL <=160 VLDL (test code = 4904663969) 43 mg/dL 5-60 Lab Interpretation (test code = Abnormal 13254-4) [facility] [id number] 06:16:00 Test Item Value Reference Range Interpretation Comments TROPONIN I (test code = 0.003 ng/mL <=0.034 0898256198) BEHZAD (test code = BEHZAD) Reference (Normal) [...] biotin. Lab Interpretation Normal (test code = 80654-5) [facility]AL [id number] 06:13:00 Test Item Value Reference Range Interpretation Comments NT-proBNP (test code = 28 pg/mL <=125 8363904716) BEHZAD (test code = BEHZAD) Biotin has been reported to cause a negative bias, interpret results relative to patient's use of biotin. Lab Interpretation (test Normal code = 83903-6) [facility] (34287)2022-05-24 06:04:03 Test Item Value Reference Range Interpretation Comments NA (test code = 134 mmol/L 135-145 L 6150565541) K (test code = 3.8 mmol/L 3.5-5.0 5637385130) CL (test code = 101 mmol/L 98-108 1203875520) CO2 TOTAL (test code = 23 mmol/L 23-31 4167791025) AGAP (test code = 10 2-16 4721406184) BUN (test code = 15 mg/dL 7-23 3239226808) GLUCOSE (test code = 173 mg/dL 70-110 H 4932597824) CREATININE (test code = 0.85 mg/dL 0.50-1.04 4527408615) TOTAL BILI (test code = 0.7 mg/dL 0.1-1.6 1844353152) CALCIUM (test code = 8.8 mg/dL 8.6-10.6 6081608547) T PROTEIN (test code = 7.1 g/dL 6.3-8.2 9319327490) ALBUMIN (test code = 4.0 g/dL 3.5-5.0 1550258630) ALK PHOS (test code = 132 U/L 34-122 H 6270592309) ALTv (test code = 65 U/L 5-35 H 1742-6) AST(SGOT) (test code = 57 U/L 13-40 H 5620256703) eGFR (test code = 71.7 mL/min/1.73m2 1395785786) BEHZAD (test code = BEHZAD) Association of [...] tests). Lab Interpretation Abnormal (test code = 49046-5) [facility] 06:03:58 Test Item Value Reference Range Interpretation Comments LIPASE (test code = 7133537443) 59 U/L 0-220 Lab Interpretation (test code = Normal 88163-7) [facility] CenterACTIV[facility]IAL THRMPLAS [id number] 05:59:40 Test Item Value Reference Range Interpretation Comments APTT Patient (test 26 See_Comment [Automat ed code = 3173-2) message] The system which generated this result transmitted reference range : 23 - 38 Seconds . The reference range was not used to interpr et this result as normal/abnormal . BEHZAD (test code = BEHZAD) The [facility] patient population mean normal value for aPTT is 30 seconds. Lab Interpretation Normal (test code = 49174-7) [facility] / [id number] 05:57:19 Test Item Value Reference Range Interpretation [...] tions. Lab Interpretation (test Normal code = 78620-6) [facility] WITH [id number] 05:48:58 Test Item Value Reference Range Interpretation Comments WBC (test code = 9.02 See_Comment [Automated 2290-2) message] The sy stem which generated this result transmitted reference range : 4.30 - 11.10 10*3/?L. The reference range was not used to interpret this result as normal/abnormal . RBC (test code = 5.23 See_Comment [Automated 379-8) message] The sy stem which generated this [...] RDW-SD (test code = 43.1 fL 39.0-49.9 50413-8) RDW-CV (test code = 13.8 % 12.0-15.5 788-0) PLT (test code = 405 See_Comment H [Automated 777-3) message] The sy stem which generated this result transmitted reference range : 166 - 358 10*3/ ?L. The reference r benito was not used to interpret this result as normal/abnormal . MPV (test code = 8.7 fL 9.5-12.9 L 42614-1) NRBC/100 WBC (test 0.0 See_Comment [Automat ed code = 3224081608) message] The system which generated this result transmitted reference range : 0.0 - 10.0 /100 WBCs. The refer ence range was not u sed to interpret th is result as normal/abnormal . NRBC x10^3 (test code See_Comment [Auto mated = 2381989792) message] The s ystem which generated this result transmitted reference range : 10*3/?L. The reference range was not used to interpret this result as normal/abnormal . GRAN MAT (NEUT) % 71.9 % (test code = 770-8) IMM GRAN % (test code 0.30 % = 4038771382) LYMPH % (test code = 20.4 % 736-9) MONO % (test code = 4.0 % 5905-5) EOS % (test code = 2.8 % 713-8) BASO % (test code = 0.6 % 706-2) GRAN MAT x10^3(ANC) 6.49 10*3/uL 1.88-7.09 (test code = 2059471928) IMM GRAN x10^3 (test 0.03 10*3/uL 0.00-0.06 code = 0926931207) LYMPH x10^3 (test code 1.84 10*3/uL 1.32-3.29 = 731-0) MONO x10^3 (test code 0.36 10*3/uL 0.33-0.92 = 742-7) EOS x10^3 (test code = 0.25 10*3/uL 0.03-0.39 711-2) BASO x10^3 (test code 0.05 10*3/uL 0.01-0.07 = 704-7) Lab Interpretation Abnormal (test code = 74473-1) [facility] CenterMiscellaneous referral [id number] 15:05:00 Test Item Value Reference Interpretation Comments Range Misc test CUEVAS 79 GMT name (test code = 2566) [...] implicated inmeningioma tu morigenesis. Germline (i.e. inherited) OO8poxzopxpv ar e associated with neurofibromatos is type [...] uish between germline and so matic alterations.Con continuous improvement coordinator follow-up germline testin g on a blood specimen inconj unction with genetic intellectual property counsel ing if there is clinical eviden ceand/or family history suggest ing an underlying hereditary cancersyndrome. Currently, there are no known cl inically approved therapies thats pecifically target NF2 muta tions. REFERENCES1. cancer-beta.[facility].ac.uk/cosmic; Nucleic Acids R es. 2017 ;45(D1):D77 7-D783 (PMID 94516778)2. cbi [email or web address].org (Version 1.5.1) ; Cancer discov. 2012;2(5):401?4 (DCFX55037296); Sci Signal. 201 ;6(269):pl1 (PMID 65716598) 3. Mayank BERRIOS, Abdoulaye Gaitan ,Paulie goddard O.D., Rachelle WDonyaK. ( Eds). WHOClassificati on of Tumours of the Central Ner vous System (Revised 4thedi tion). IARC: Moody 2016.4. Brain T umor Pathol. Jan 2016;33(4):237? 47 (PMID 90971418)5. [email or web address]. Nature communications. May 18 2017;8:12212 (P MID 40425113)7. NPJ Genom Med. 2017;2 (PMID 35161348)8. Int J Cancer. Jan 16 2001;94(2):218? 21 (PMID 92986232)9. Act a Neuropathol. Oct 2016;134(1) :155?8 (PMID 33911391)10. Na allan communications. Nov 05 2017;8(1):186 ( PMID 50308102)ADDITI ONAL INFORMATIONMicr oscopic examination was performed by [...] GLI2, GLI3, GNA11, GN AQ, GNAS, GPS2, H3F3A,EGDB0E2C, ZAZZ0G7V, IDH1, IDH2, JAK2, KDM 5A, KDM5C,KDM6A, KLF4, KMT2B (ML L4), KMT2C (MLL3), KMT2D ( MLL2),KRAS, LDB1, LRP1B, LZTR1, M AP2K1, MDM2, MLH1, MSH2,MSH3 , MSH6, MYB, MYBL1, MYC, MYC N, NF1, NF2,NOTCH1, NOT CH2, NRAS, PARP1, PDGFRA, RLA5S7F ,PIK3CA, PIK3R1, PIK3R2, POLE, P OLR2A, POT1, PPM1D,LWFPR2G, PTCH1, PTCH2, PTEN, PTPN11, P TPRD, QKI,RAF1, [...] AGBL4, ATG7, BCAN, BEND2,BIR C5, BRAF, BTBD1, E88qpc75, C8orf 34, CLCN6, CLIP2,CXXC5, DD X31, DIP2C, EGFR, ELAVL3, ESR1, E TV6, EWSR1,CKW098K, AAQ041M, FGFR1, FGFR3, FLI1, FO XR2, FXR1,FYCO1, GFI1, GFI1B, GL I1, GNAI1, JPX, [id number],HBC665 643, MACF1, MAMLD1, MET, MK RN1, MMP16, MN1,MST1R, MYB, MYBL1, MYC, NAB2, NACC2, NA V1, NDRG1,NELFE, NFASC, NRF1, NT RK1, NTRK2, NTRK3, PCDHGA1, PCSK5, PDGFRA, PKD1, PRKCA, PT PRZ1, PVT1, QKI, RAF1,SUNI, RELA , HBM314, SEPT14, ESG38S0, SLIT1, SRGAP3,FU6KZJ3, STAT6, TACC1, T ACC3, TFG, TPM3, UBE2J2, VCL,WHS C1, and YAP1.Mutation n omenclature is based on build GRCh37 (hg19). Fordetails abou t gene reference transcripts (Re fSeq accessionnumber s), specific targeted region s of each gene, andadditional i nformation about this test, [email or web address](Test ID NONCP). CLIN ICAL CORRELATIONSTes t results [...] based o n updated clinicalrelevan ce. See [email or web address](Test ID NONCP) for the most up to date list of genes i ncluded inthis test. Additiona l Information CLINICAL TRIALS Possible clinical trials of benef it for this patient can bef ound at the following sites :1) ClinicalTrials. gov:www.clinicalt rials.gov/ct2/s earch/advanced2) [facility]: [email or web address]/re search/clinical-t rials/3) [facility] [place]: <www.cancer.gov /clinicaltrials/s earch> REFERENCETRANSC RIPTSequence variant nomencl ature is based on the following R efSeqaccession number (build G RCh37 (hg19)):[id number]. Spec imen Tissue, Tumor Tissue ID [id number] Released By Katie Yu M.D. Laboratory NotesThis test was developed and its performance characteristics determined by [facility] in a manner consiste nt with CLIA requirements. T his test has not been cleared or approved by the U.S. Food and D rug Administration. Performing [facility] - [address], [place] [address] BEHZAD (test STARR TEST ID: code = BEHZAD) [facility] GENE MUTATION ANALYSIS- RIGHT BRAIN [id number] [id number] (B9)DOS 08/19/2021 [facility] [id number] 15:05:00 Test Item Value Reference Interpretation Comments Range Misc test STARR 79 GMT name (test code = 2566) [...] implicated inmeningioma tu morigenesis. Germline (i.e. inherited) PR4posfazftl ar e associated with neurofibromatos is type [...] uish between germline and so matic alterations.Con continuous improvement coordinator follow-up germline testin g on a blood specimen inconj unction with genetic intellectual property counsel ing if there is clinical eviden ceand/or family history suggest ing an underlying hereditary cancersyndrome. Currently, there are no known cl inically approved therapies thats pecifically target NF2 muta tions. REFERENCES1. cancer-beta.[facility].ac.uk/cosmic; Nucleic Acids R es. 2017 ;45(D1):D77 7-D783 (PMID 47318686)2. cbi oportal.org (Version 1.5.1) ; Cancer discov. 2012;2(5):401?4 ([id number]); Sci Signal. 201 ;6(269):pl1 (PMID 80277392) 3. Mayank BERRIOS, Abdoulaye Gaitan ,Paulie goddard O.D., Rachelle, WDonyaK. ( Eds). WHOClassificati on of Tumours of the Central Ner vous System (Revised 4thedi tion). IARC: Moody 2016.4. Brain T umor Pathol. Jan 2016;33(4):237? 47 (PMID 75212342)5. [email or web address]. Nature communications. May 18 2017;8:81404 (P MID 81402801)7. NPJ Genom Med. 2017;2 (PMID 33242191)8. Int J Cancer. Jan 16 2001;94(2):218? 21 (PMID 97519002)9. Act a Neuropathol. Oct 2016;134(1) :155?8 (PMID 27835719)10. Na allan communications. Nov 05 2017;8(1):186 ( PMID 32297320)ADDITI ONAL INFORMATIONMicr oscopic examination was performed by [...] GLI2, GLI3, GNA11, GN AQ, GNAS, GPS2, H3F3A,MQBO6G7C, TROA0O0D, IDH1, IDH2, JAK2, KDM 5A, KDM5C,KDM6A, KLF4, KMT2B (ML L4), KMT2C (MLL3), KMT2D ( MLL2),KRAS, LDB1, LRP1B, LZTR1, M AP2K1, MDM2, MLH1, MSH2,MSH3 , MSH6, MYB, MYBL1, MYC, MYC N, NF1, NF2,NOTCH1, NOT CH2, NRAS, PARP1, PDGFRA, OEB1F8F ,PIK3CA, PIK3R1, PIK3R2, POLE, P OLR2A, POT1, PPM1D,VJEOV9C, PTCH1, PTCH2, PTEN, PTPN11, P TPRD, QKI,RAF1, [...] AGBL4, ATG7, BCAN, BEND2,BIR C5, BRAF, BTBD1, D23kkm81, C8orf 34, CLCN6, CLIP2,CXXC5, DD X31, DIP2C, EGFR, ELAVL3, ESR1, E TV6, EWSR1,WTO899F, LKI993E, FGFR1, FGFR3, FLI1, FO XR2, FXR1,FYCO1, GFI1, GFI1B, GL I1, GNAI1, JPX, YHJW1706,BCZ744 643, MACF1, MAMLD1, MET, MK RN1, MMP16, MN1,MST1R, MYB, MYBL1, MYC, NAB2, NACC2, NA V1, NDRG1,NELFE, NFASC, NRF1, NT RK1, NTRK2, NTRK3, PCDHGA1, PCSK5, PDGFRA, PKD1, PRKCA, PT PRZ1, PVT1, QKI, RAF1,SUNI, RELA , IZH262, SEPT14, QHD61S4, SLIT1, SRGAP3,HS2IGW8, STAT6, TACC1, T ACC3, TFG, TPM3, UBE2J2, VCL,WHS C1, and YAP1.Mutation n omenclature is based on build GRCh37 (hg19). Fordetails abou t gene reference transcripts (Re fSeq accessionnumber s), specific targeted region s of each gene, andadditional i nformation about this test, seewww.MegaPath.[employer](Test ID NONCP). CLIN ICAL CORRELATIONSTes t results [...] based o n updated clinicalrelevan ce. See www.[email or web address] [email or web address](Test ID NONCP) for the most up to date list of genes i ncluded inthis test. Additiona l Information CLINICAL TRIALS Possible clinical trials of benef it for this patient can bef ound at the following sites :1) ClinicalTrials. gov:www.clinicalt rials.gov/ct2/s earch/advanced2) [facility]: www.spencer.[facility]/re search/clinical-t rials/3) [facility] [place]: <www.cancer.gov /clinicaltrials/s earch> REFERENCETRANSC RIPTSequence variant nomencl ature is based on the following R efSeqaccession number (build G RCh37 (hg19)):NF2 [id number]. Spec imen Tissue, Tumor Tissue ID [id number] Released By Katie Yu M.D. Laboratory NotesThis test was developed and its performance characteristics determined by [facility] in a manner consiste nt with CLIA requirements. T his test has not been cleared or approved by the U.S. Food and D rug Administration. Performing [facility] - [address] [address] BEHZAD (test STARR TEST ID: code = BEHZAD) NONCP - 79 GENE MUTATION ANALYSIS- RIGHT BRAIN [id number] [id number] (B9)DOS 08/19/2021 [facility] [id number] 15:05:00 Test Item Value Reference Interpretation Comments Range Misc test STARR 79 GMT name (test code = 2566) [...] implicated inmeningioma tu morigenesis. Germline (i.e. inherited) NX1cfrjkcrxi ar e associated with neurofibromatos is type [...] uish between germline and so matic alterations.Con continuous improvement coordinator follow-up germline testin g on a blood specimen inconj unction with genetic intellectual property counsel ing if there is clinical eviden ceand/or family history suggest ing an underlying hereditary cancersyndrome. Currently, there are no known cl inically approved therapies thats pecifically target NF2 muta tions. REFERENCES1. cancer-beta.[facility].ac.uk/cosmic; Nucleic Acids R es. 2017 ;45(D1):D77 7-D783 (PMID 09072270)2. cbi oportal.org (Version 1.5.1) ; Cancer discov. 2012;2(5):401?4 ([id number]); Sci Signal. 201 ;6(269):pl1 (PMID 66797003) 3. Mayank BERRIOS, Abdoulaye Gaitan ,Paulie goddard O.D., Rachelle, WDonyaK. ( Eds). WHOClassificati on of Tumours of the Central Ner vous System (Revised 4thedi tion). IARC: Moody 2016.4. Brain T umor Pathol. Jan 2016;33(4):237? 47 (PMID 78737271)5. [email or web address]. Nature communications. May 18 2017;8:96144 (P MID 70410493)7. NPJ Genom Med. 2017;2 (PMID 33688986)8. Int J Cancer. Jan 16 2001;94(2):218? 21 (PMID 24990268)9. Act a Neuropathol. Oct 2016;134(1) :155?8 (PMID 48522978)10. Na allan communications. Nov 05 2017;8(1):186 ( PMID 05281109)ADDITI ONAL INFORMATIONMicr oscopic examination was performed by [...] GLI2, GLI3, GNA11, GN AQ, GNAS, GPS2, H3F3A,DVVX7H6G, BKRV7D5R, IDH1, IDH2, JAK2, KDM 5A, KDM5C,KDM6A, KLF4, KMT2B (ML L4), KMT2C (MLL3), KMT2D ( MLL2),KRAS, LDB1, LRP1B, LZTR1, M AP2K1, MDM2, MLH1, MSH2,MSH3 , MSH6, MYB, MYBL1, MYC, MYC N, NF1, NF2,NOTCH1, NOT CH2, NRAS, PARP1, PDGFRA, JMG7Z2W ,PIK3CA, PIK3R1, PIK3R2, POLE, P OLR2A, POT1, PPM1D,TLKIK7E, PTCH1, PTCH2, PTEN, PTPN11, P TPRD, QKI,RAF1, [...] AGBL4, ATG7, BCAN, BEND2,BIR C5, BRAF, BTBD1, X83vca24, C8orf 34, CLCN6, CLIP2,CXXC5, DD X31, DIP2C, EGFR, ELAVL3, ESR1, E TV6, EWSR1,ZHC647X, TUZ675E, FGFR1, FGFR3, FLI1, FO XR2, FXR1,FYCO1, GFI1, GFI1B, GL I1, GNAI1, JPX, OUMI4966,SBE513 643, MACF1, MAMLD1, MET, MK RN1, MMP16, MN1,MST1R, MYB, MYBL1, MYC, NAB2, NACC2, NA V1, NDRG1,NELFE, NFASC, NRF1, NT RK1, NTRK2, NTRK3, PCDHGA1, PCSK5, PDGFRA, PKD1, PRKCA, PT PRZ1, PVT1, QKI, RAF1,SUNI, RELA , NEU665, SEPT14, WLJ45G1, SLIT1, SRGAP3,EP5EPL8, STAT6, TACC1, T ACC3, TFG, TPM3, UBE2J2, VCL,WHS C1, and YAP1.Mutation n omenclature is based on build GRCh37 (hg19). Fordetails abou t gene reference transcripts (Re fSeq accessionnumber s), specific targeted region s of each gene, andadditional i nformation about this test, seewww.MegaPath.[employer](Test ID NONCP). CLIN ICAL CORRELATIONSTes t results [...] based o n updated clinicalrelevan ce. See [email or web address] [email or web address](Test ID NONCP) for the most up to date list of genes i ncluded inthis test. Additiona l Information CLINICAL TRIALS Possible clinical trials of benef it for this patient can bef ound at the following sites :1) ClinicalTrials. gov:www.clinicalt rials.gov/ct2/s earch/advanced2) [facility]: www.spencer.[facility]/re search/clinical-t rials/3) [facility] [place]: <www.cancer.gov /clinicaltrials/s earch> REFERENCETRANSC RIPTSequence variant nomencl ature is based on the following R efSeqaccession number (build G RCh37 (hg19)):NF2 [id number]. Spec imen Tissue, Tumor Tissue ID [id number] Released By Katie Yu M.D. Laboratory NotesThis test was developed and its performance characteristics determined [facility] in a manner consiste nt with CLIA requirements. T his test has not been cleared or approved by the U.S. Food and D rug Administration. Performing [facility] - [address], [place] [address] BEHZAD (test STARR TEST ID: code = BEHZAD) NONCP - 79 GENE MUTATION ANALYSIS- RIGHT BRAIN [id number] 757 (B9)DOS 08/19/2021 [facility] [id number] 15:05:00 Test Item Value Reference Interpretation Comments Range Misc test STARR 79 GMT name (test code = 2566) [...] implicated inmeningioma tu morigenesis. Germline (i.e. inherited) UV4vcrmazcbo ar e associated with neurofibromatos is type [...] uish between germline and so matic alterations.Con continuous improvement coordinator follow-up germline testin g on a blood specimen inconj unction with genetic intellectual property counsel ing if there is clinical eviden ceand/or family history suggest ing an underlying hereditary cancersyndrome. Currently, there are no known cl inically approved therapies thats pecifically target NF2 muta tions. REFERENCES1. cancer-beta.[facility].ac.uk/cosmic; Nucleic Acids R es. 2017 ;45(D1):D77 7-D783 (PMID 58774716)2. cbi oportal.org (Version 1.5.1) ; Cancer discov. 2012;2(5):401?4 ([id number]); Sci Signal. 201 ;6(269):pl1 (PMID 18773863) 3. Mayank BERRIOS, Abdoulaye Gaitan ,Paulie goddard O.D., Rachelle, WDonyaK. ( Eds). WHOClassificati on of Tumours of the Central Ner vous System (Revised 4thedi tion). IARC: Moody 2016.4. Brain T umor Pathol. Jan 2016;33(4):237? 47 (PMID 47195859)5. [email or web address] [email or web address]. Nature communications. May 18 2017;8:98430 (P MID 06160707)7. NPJ Genom Med. 2017;2 (PMID 47575584)8. Int J Cancer. Jan 16 2001;94(2):218? 21 (PMID 17639395)9. Act a Neuropathol. Oct 2016;134(1) :155?8 (PMID 65507697)10. Na allan communications. Nov 05 2017;8(1):186 ( PMID 99852369)ADDITI ONAL INFORMATIONMicr oscopic examination was performed by [...] GLI2, GLI3, GNA11, GN AQ, GNAS, GPS2, H3F3A,CIHB4H2V, PQML7D9Z, IDH1, IDH2, JAK2, KDM 5A, KDM5C,KDM6A, KLF4, KMT2B (ML L4), KMT2C (MLL3), KMT2D ( MLL2),KRAS, LDB1, LRP1B, LZTR1, M AP2K1, MDM2, MLH1, MSH2,MSH3 , MSH6, MYB, MYBL1, MYC, MYC N, NF1, NF2,NOTCH1, NOT CH2, NRAS, PARP1, PDGFRA, JOL1C6X ,PIK3CA, PIK3R1, PIK3R2, POLE, P OLR2A, POT1, PPM1D,STYEB5G, PTCH1, PTCH2, PTEN, PTPN11, P TPRD, QKI,RAF1, [...] AGBL4, ATG7, BCAN, BEND2,BIR C5, BRAF, BTBD1, I12qqt10, C8orf 34, CLCN6, CLIP2,CXXC5, DD X31, DIP2C, EGFR, ELAVL3, ESR1, E TV6, EWSR1,ZUD656P, CJQ432O, FGFR1, FGFR3, FLI1, FO XR2, FXR1,FYCO1, GFI1, GFI1B, GL I1, GNAI1, JPX, XMEE1592,UPZ162 643, MACF1, MAMLD1, MET, MK RN1, MMP16, MN1,MST1R, MYB, MYBL1, MYC, NAB2, NACC2, NA V1, NDRG1,NELFE, NFASC, NRF1, NT RK1, NTRK2, NTRK3, PCDHGA1, PCSK5, PDGFRA, PKD1, PRKCA, PT PRZ1, PVT1, QKI, RAF1,SUNI, RELA , YUN697, SEPT14, IUJ35N1, SLIT1, SRGAP3,JL4SCJ1, STAT6, TACC1, T ACC3, TFG, TPM3, UBE2J2, VCL,WHS C1, and YAP1.Mutation n omenclature is based on build GRCh37 (hg19). Fordetails abou t gene reference transcripts (Re fSeq accessionnumber s), specific targeted region s of each gene, andadditional i nformation about this test, seewww.MegaPath.[employer](Test ID NONCP). CLIN ICAL CORRELATIONSTes t results [...] based o n updated clinicalrelevan ce. See www.[email or web address] [email or web address].com(Test ID NONCP) for the most up to date list of genes i ncluded inthis test. Additiona l Information CLINICAL TRIALS Possible clinical trials of benef it for this patient can bef ound at the following sites :1) ClinicalTrials. gov:www.clinicalt rials.gov/ct2/s earch/advanced2) [facility]: www.spencer.[facility]/re search/clinical-t riaeva/3) [facility] [place] [place]: <www.cancer.gov /clinicaltrials/s earch> REFERENCETRANSC RIPTSequence variant nomencl ature is based on the following R efSeqaccession number (build G RCh37 (hg19)):NF2 [id number]. Spec imen Tissue, Tumor Tissue ID [id number] Released By Katie Yu M.D. Laboratory NotesThis test was developed and its performance characteristics determined by [facility] in a manner consiste nt with CLIA requirements. T his test has not been cleared or approved by the U.S. Food and D rug Administration. Performing [facility] - [address], [place] [address] BEHZAD (test STARR TEST ID: code = BEHZAD) NONCP - 79 GENE MUTATION ANALYSIS- RIGHT BRAIN [id number]-[id number] 757 (B9)DOS 08/19/2021 [facility]20[facility] 22:24:00 Test Item Value Reference Range Interpretation Comments POC glucose (test code 125 mg/dL 65-99 H Opera tor Name: = 00946-2) John Phan ID : [id number] able: TM Notified muck hauler Interpretation Abnormal (test code = 81478-8) [facility]2022-06-08 22:24:00 Test Item Value Reference Range Interpretation Comments POC glucose (test code 125 mg/dL 65-99 H Opera tor Name: = 86419-2) John Phan ID : [id number] able: TM Notified muck hauler Interpretation Abnormal (test code = 68237-7) [facility]2022-06-08 22:24:00 Test Item Value Reference Range Interpretation Comments POC glucose (test code 125 mg/dL 65-99 H Opera tor Name: = 46132-0) John Phan ID : [id number] able: TM Notified muck hauler Interpretation Abnormal (test code = 20603-2) [facility]2022-06-08 22:24:00 Test Item Value Reference Range Interpretation Comments POC glucose (test code 125 mg/dL 65-99 H Opera tor Name: = 10929-4) John Phan ID : [id number] able: TM Notified muck hauler Interpretation Abnormal (test code = 83432-5) [facility] 12 [id number] 14:47:26 Test Item Value Reference Range Interpretation Comments Ventricular rate (test code = 253) Atrial rate (test code = 255) WI interval (test code = 266) QRSD interval [...] of 24-AUG-2021 00:35,-No significant change was found- [address]2022-06-05 14:47:26 Test Item Value Reference Range Interpretation Comments Ventricular rate (test code = 253) Atrial rate (test code = 255) WI interval (test code = 266) QRSD interval [...] of 24-AUG-2021 00:35,-No significant change was found- [address]2022-06-05 14:47:26 Test Item Value Reference Range Interpretation Comments Ventricular rate (test code = 253) Atrial rate (test code = 255) WI interval (test code = 266) QRSD interval [...] of 24-AUG-2021 00:35,-No significant change was found- [address]2022-06-05 14:47:26 Test Item Value Reference Range Interpretation Comments Ventricular rate (test 63 code = 253) Atrial rate (test code 63 = 255) WI interval (test code 172 = 266) QRSD [...] of 24-AUG-2021 00:35,-No significant change was found- [facility][1]ix minute walk w/ pulse cfpeoxnv9199-69-39 16:54:41 Test Item Value Reference Range Interpretation [...] meters (test code = 40 m 7620) [facility] iafqqvhw2679-53-33 16:54:41 Test Item Value Reference Range Interpretation [...] meters (test code = 40 m 7620) [facility] asthsrst7986-27-23 16:54:41 Test Item Value Reference Range Interpretation [...] meters (test code = 40 m 7620) [facility] jfmovdzy7008-71-35 16:54:41 Test Item Value Reference Range Interpretation [...] meters (test code = 40 m 7620) [facility] UdbdlvgrJJQW-DsM-6 (COVID-19) RNA [Presence] in Respiratory specimen by FELIPA with probe fpaivunun6468-43-65 23:48:49 Test Item Value Reference Range Interpretation Comments SARS-CoV-2 (COVID-19) RNA Not detected [Presence] in Respiratory specimen by FELIPA with probe detection (test code = 70140-2) Whether patient is employed in a Unknown healthcare setting (test code = 92926-9) Whether the patient has symptoms Unknown related to condition of interest (test code = 63752-6) Whether the patient was Unknown hospitalized for condition of interest (test code = 77618-8) Whether the patient was admitted Unknown to intensive care unit (ICU) for condition of interest (test code = 39157-7) Whether patient resides in a Unknown congregate care setting (test code = 36768-5) status (test code = Unknown 47863-2) Date and time of symptom onset Unknown (test code = 59513-3) [facility] zojresa0833-34-69 20:53:10 Test Item Value Reference Range Interpretation Comments Case number (test code = [id number]) Surgical pathology See link below for report (test code = PDF Lab Report 2255) Result status (test code This is Final Report = [id number]) for [id number] pathology [id number] 20:53:10 Test Item Value Reference Range Interpretation Comments Case number (test code = [id number]) Surgical pathology See link below for report (test code = PDF Lab Report 2255) Result status (test code This is Final Report = [id number]) for [id number] [place] [address] pathology tlsqlzg3257-50-47 20:53:10 Test Item Value Reference Range Interpretation Comments Case number (test code = [id number]) Surgical pathology See link below for report (test code = PDF Lab Report 2255) Result status (test code This is Final Report = [id number]) for [id number] [place] [address] pathology vuqyyey3993-35-43 20:53:10 Test Item Value Reference Range Interpretation Comments Case number (test code = [id number]) Surgical pathology See link below for report (test code = PDF Lab Report 2255) Result status (test code This is Final Report = [id number]) [address]-2 (COVID-19) RNA [Presence] in Respiratory specimen by FELIPA with probe weyvbonpi6388-13-62 20:28:44 Test Item Value Reference Range Interpretation Comments SARS-CoV-2 (COVID-19) RNA Not detected [Presence] in Respiratory specimen by FELIPA with probe detection (test code = 02691-4) Whether patient is employed in a Unknown healthcare setting (test code = 97280-1) Whether the patient has symptoms Unknown related to condition of interest (test code = 56278-0) Whether the patient was Unknown hospitalized for condition of interest (test code = 24672-2) Whether the patient was admitted Unknown to intensive care unit (ICU) for condition of interest (test code = 87176-2) Whether patient resides in a Unknown congregate care setting (test code = 92207-7) status (test code = Unknown 12712-5) Date and time of symptom onset Unknown (test code = 43667-2) [facility] zimtcvl4389-79-35 07:40:00 Test Item Value Reference Range Interpretation Comments Urine culture No growth Specimen isolate (test after 24 InformationSpe cimen code = 95885-0) hours Source: Urin eSpecimen Site: [facility] qoegslg1569-74-80 07:40:00 Test Item Value Reference Range Interpretation Comments Urine culture No growth Specimen isolate (test after 24 InformationSpe cimen code = 06981-9) hours Source: Urin eSpecimen Site: [facility] locypxd2565-99-75 07:40:00 Test Item Value Reference Range Interpretation Comments Urine culture No growth Specimen isolate (test after 24 InformationSpe cimen code = 71148-1) hours Source: Urin eSpecimen Site: [facility] srscnbf5102-41-52 07:40:00 Test Item Value Reference Range Interpretation Comments Urine culture No growth Specimen isolate (test after 24 InformationSpe cimen code = 33896-1) hours Source: [facility]Spec[facility] RNA [Presence] in Respiratory specimen by FELIPA with probe awopxtldt1451-04-64 20:09:14 Test Item Value Reference Range Interpretation Comments SARS-CoV-2 (COVID-19) RNA Not detected [Presence] in Respiratory specimen by FELIPA with probe detection (test code = 19810-3) Whether patient is employed in a Unknown healthcare setting (test code = 94446-1) Whether the patient has symptoms Unknown related to condition of interest (test code = 07766-5) Whether the patient was Unknown hospitalized for condition of interest (test code = 03839-5) Whether the patient was admitted Unknown to intensive care unit (ICU) for condition of interest (test code = 58335-8) Whether patient resides in a Unknown congregate care setting (test code = 75397-7) status (test code = Unknown 85764-8) Date and time of symptom onset Unknown (test code = 53732-8) [facility] [place] flicz6830-22-61 02:52:00 Test Item Value Reference Range Interpretation Comments test urine, POC (test Negative code = 6819606) Internal QC (test code = 257) QC acceptable [facility] , [id number] 02:52:00 Test Item Value Reference Range Interpretation Comments test urine, POC (test Negative code = 7132596) Internal QC (test code = 257) QC acceptable [facility] , iqqus3312-93-65 02:52:00 Test Item Value Reference Range Interpretation Comments test urine, POC (test Negative code = 8630757) Internal QC (test code = 257) QC acceptable [facility] , [id number] 02:52:00 Test Item Value Reference Range Interpretation Comments test urine, POC (test Negative code = 6492647) Internal QC (test code = 257) QC acceptable [facility][1]ARS-CoV-2 (COVID-19) RNA [Presence] in Respiratory specimen by FELIPA with probe qacmbznnd7209-17-74 00:32:04 Test Item Value Reference Range Interpretation Comments SARS-CoV-2 (COVID-19) RNA Not detected [Presence] in Respiratory specimen by FELIPA with probe detection (test code = 01362-3) Whether patient is employed in a Unknown healthcare setting (test code = 47544-3) Whether the patient has symptoms Unknown related to condition of interest (test code = 96230-5) Whether the patient was Unknown hospitalized for condition of interest (test code = 61300-2) Whether the patient was admitted Unknown to intensive care unit (ICU) for condition of interest (test code = 59996-0) Whether patient resides in a Unknown congregate care setting (test code = 48603-1) status (test code = Unknown 95829-2) Date and time of symptom onset Unknown (test code = 63996-6) [facility]/ [facility]PTA[facility], LUPUUGLX2253-23-65 09:03:00 FINAL REPORT PROCEDURE: THYROID SCAN AND UPTAKES CPT CODE: 59001 INDICATION: Hyperthyroidism PROTOCOL: 0.238 mCi of I-123 [...] MDReport Verified Date/Time: 11/09/2019 09:03:02 Reading Location: [address] [place] [address] Reading Room "
[2022-11-02] MEDS ORDERED: KETOROLAC 30 MG/ML INJ ONE (03:28)
[2022-11-02] MEDS ORDERED: MORPHINE 4 MG/ML SYR ONE (03:28)
[2022-11-02] MEDS ORDERED: METOCLOPRAMIDE 10 MG/2mL INJ ONE (03:28)
[2022-11-02] MEDS ORDERED: DIPHENHYDRAMINE 50 MG/ML VIAL ONE (03:28)
[2022-11-02] MEDS ORDERED: NA CHLORIDE 0.9% 1,000 ML ONE (03:29)
--- NOTE | 2022-11-02 05:44 | EDPHYS ---
Physician Documentation [facility] Name: Skye Song Age: 47 yrs Sex: Female : 1975 Arrival Date: 11/02/2022 Time: 02:34 Bed 5 Private MD: ED Physician Aniket Mcleod HPI: 11/02 02:47 This 47 yrs old Female presents to ER via Ambulatory with complaints of sp4 Headache. 02:52 Patient presents with a cute onset of moderate to severe headache that she commonly has.sp4 02:[address] - EXAM DESCRIPTION: CT - Head Brain Wo Cont - 09/17/2022 7:30 am CLINICAL sp4 HISTORY: acute headache, history of tumor COMPARISON: Head Brain Wo Cont dated 04/21/2022; Head Brain W Cont dated 08/05/2021 TECHNIQUE: All CT scans are performed using dose optimization technique as appropriate and may include automated exposure control or mA/KV adjustment according to patient size. FINDINGS: No intracranial hemorrhage, hydrocephalus or extra-axial fluid collection.No areas of brain edema or evidence of midline shift. Right parietal approach ARTIFICIAL GLASS EYE MAKER shunt. The tip is in the body of the right lateral ventricle. Encephalomalacia in the lower portion of the right and left cerebellar hemispheres. The paranasal sinuses and mastoids are clear. Right parietal craniotomy. Suboccipital craniotomy. IMPRESSION: No acute intracranial abnormality. ARTIFICIAL GLASS EYE MAKER shunt in similar position. No hydrocephalus. Signed By: Srinath Hernandez MD Signed AT: 09/17/22 0737. 05:38 Patient has history of intracranial tumor with prior craniotomy. Also ARTIFICIAL GLASS EYE MAKER shunt. Patient sp4 presents with breakthrough headaches that she often experiences at home. Patient was assessed last time here on 09/17/[address] determined that patient has no residual tumor. 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 . Historical: - Allergies: 02:42 Iodine; as6 02:42 Naproxen; as6 02:42 tramadol; as6 - PMHx: 02:42 Anxiety; BRAIN TUMOR; graves disease; Hydrocephalus; Migraines; Seizures; as6 - PSHx: 02:42 Appendectomy; Brain sx; Cholecystectomy; eye sx; ARTIFICIAL GLASS EYE MAKER shunt; as6 - Immunization history:: Client reports having NOT received the Covid vaccine. - Social history:: Smoking status: Patient denies any tobacco usage or history of. - Family history:: not pertinent. ROS: 05:38 Constitutional: Negative for fever, chills, and weight loss, Neuro: Negative for sp4 weakness, numbness, tingling, and seizure, positive for global headache 05:38 All other systems are negative. Exam: 05:38 Constitutional: This is a well developed, well nourished patient who is awake, alert, sp4 and in no acute distress. Head/Face: Normocephalic, atraumatic. There is a right-sided ARTIFICIAL GLASS EYE MAKER shunt also scar from prior craniotomy. Eyes: Pupils equal round and reactive to light, extra-ocular motions intact. Lids and lashes normal. Conjunctiva and sclera are not injected. Cornea within normal limits. Periorbital areas with no swelling, redness, or edema. ENT: Nares patent. No nasal discharge, no septal abnormalities noted. Tympanic membranes are normal and external auditory canals are clear. Oropharynx with no redness, swelling, or masses, exudates, or evidence of obstruction, uvula midline. Mucous membranes moist. Neck: Trachea midline, no thyromegaly or masses palpated, and no cervical lymphadenopathy. Supple, full range of motion without nuchal rigidity, or vertebral point tenderness. Chest/axilla: Normal chest wall appearance and motion. Nontender with no deformity. No lesions are appreciated. Cardiovascular: Regular rate and rhythm with a normal S1 and S2. No gallops, murmurs, or rubs. Normal PMI, no JVD. No pulse deficits. Respiratory: Lungs have equal breath sounds bilaterally, clear to auscultation and percussion. No rales, rhonchi or wheezes noted. No increased work of breathing, no retractions or nasal flaring. Abdomen/GI: Soft, non-tender, with normal bowel sounds. No distension or tympany. No guarding or rebound. No evidence of tenderness throughout. Back: No spinal tenderness. No costovertebral tenderness. Skin: Warm, dry with normal turgor. Normal color with no rashes, no lesions, and no evidence of cellulitis. MS/ Extremity: Pulses equal, no cyanosis. Neurovascular intact. Full, normal range of motion. Neuro: Awake and alert, GCS 15, oriented to person, place, time, and situation. Cranial nerves II-XII grossly intact. Motor strength 5/5 in all extremities. Sensory grossly intact. Psych: Awake, alert, with orientation to person, place and time. Behavior, mood, and affect are within normal limits Vital Signs: 02:41 BP 122 / 84; Pulse 74; Resp 18 S; Temp 97.8(O); Pulse Ox 97% on R/A; Weight 113.4 kg as6 (R); Height 5 ft. 4 in. (R); Pain 10/10; 04:20 BP 135 / 72; Pulse 66; Resp 17 S; Pulse Ox 98% on R/A; lg3 05:51 BP 123 / 64; Pulse 59; Resp 15 S; Pulse Ox 99% on R/A; lg3 02:41 Body Mass Index 42.91 (113.40 kg, 162.56 cm) as6 02:41 Pain Scale: Adult as6 [place] Coma Score: 05:38 Eye Response: spontaneous(4). Motor Response: obeys commands(6). Verbal Response: sp4 oriented(5). Total: 15. MDM: 02:51 Patient medically screened. sp4 05:38 Differential diagnosis: glaucoma, migraine, otitis, tension headache, vasomotor sp4 headache. Data reviewed: vital signs, nurses notes, old medical records. ED course: Patient's headache was controlled with medications in the emergency department. Patient states she has been monitored by her neurosurgeon on a regular basis. Patient will be prescribed as needed Fioricet for the headache.. 11/02 02:51 Order name: Saline Lock; Complete Time: 03:19 sp4 Administered Medications: 03:23 Drug: morphine IVP or IV 4 mg Route: IVP; Infused Over: 4 mins; Site: right antecubital;rv 05:51 Follow up: Response: No adverse reaction; Marked relief of symptoms lg3 03:23 Drug: Ketorolac IVP 30 mg Route: IVP; Site: right antecubital; rv 05:50 Follow up: Response: No adverse reaction; Marked relief of symptoms lg3 03:23 Drug: metoCLOPramide IVP 10 mg Route: IVP; Site: right antecubital; rv 05:50 Follow up: Response: No adverse reaction; Marked relief of symptoms lg3 03:23 Drug: NS 0.9% IV 1000 ml Route: IV; Rate: 1 bolus; Site: right antecubital; rv 05:50 Follow up: IV Status: Completed infusion; IV Intake: 1000ml lg3 03:23 Drug: diphenhydrAMINE IVP 50 mg Route: IVP; Site: right antecubital; rv 05:50 Follow up: Response: No adverse reaction; Marked relief of symptoms lg3 Disposition Summary: 11/02/22 05:43 Discharge Ordered Location: Home sp4 Problem: new sp4 Symptoms: have improved sp4 Condition: Stable sp4 Diagnosis - Other headache syndrome sp4 - Recurrent migraine headaches sp4 Followup: sp4 - With: Private Physician - When: 7 - 10 days - Reason: Recheck today's complaints Discharge Instructions: - Discharge Summary Sheet sp4 - Migraine Headache, [id number] sp4 Forms: - Patient Portal Instructions sp4 Prescriptions: - Fioricet 50-300-40 mg Oral capsule - take 1 capsule by ORAL route every 6 hours PRN headache; 30 capsule; Refills: sp4 0, Product Selection Permitted Signatures: Darien Borden RN RN Brett Bella RN RN as6 Aniket Mcleod MD MD sp4 Robina Oakley RN lg3
--- NOTE | 2022-11-02 05:44 | ER ---
Nurse's Notes [facility] Name: Skye Song Age: 47 yrs Sex: Female : 1975 Arrival Date: 11/02/2022 Time: 02:34 Bed 5 Private MD: Diagnosis: Other headache syndrome;Recurrent migraine headaches Presentation: 11/02 02:41 Chief complaint: Patient states: "I have a brain tumor and sometimes it gives me as6 horrible headaches and this one started yesterday and won't go away". Coronavirus screen: At this time, the client does not indicate any symptoms associated with coronavirus-19. Ebola Screen: No symptoms or risks identified at this time. Initial Sepsis Screen: Does the patient meet any 2 criteria? No. Patient's initial sepsis screen is negative. Does the patient have a suspected source of infection? No. Patient's initial sepsis screen is negative. Risk Assessment: Do you want to hurt yourself or someone else? Patient reports no desire to harm self or others. Onset of symptoms was November 01, 2022. 02:41 Method Of Arrival: Ambulatory as6 02:41 Acuity: NIDA 3 as6 Triage Assessment: 02:43 Headache History: The patient has had previous headaches. General: Appears in no as6 apparent distress. Behavior is calm, cooperative. Pain: Complains of pain in head. Neuro: Reports headache. 03:19 Pain: Pain currently is 8 out of 10 on a pain scale. Pain began suddenly, Also rv complains of no other associated symptoms. Historical: - Allergies: 02:42 Iodine; as6 02:42 Naproxen; as6 02:42 tramadol; as6 - PMHx: 02:42 Anxiety; BRAIN TUMOR; graves disease; Hydrocephalus; Migraines; Seizures; as6 - PSHx: 02:42 Appendectomy; Brain sx; Cholecystectomy; eye sx; SURVEILLANCE MONITOR shunt; as6 - Immunization history:: Client reports having NOT received the Covid vaccine. - Social history:: Smoking status: Patient denies any tobacco usage or history of. - Family history:: not pertinent. Screenin:18 [facility] ED Fall Risk Assessment (Adult) History of falling in the last 3 months, rv including since admission No falls in past 3 months (0 pts) Confusion or Disorientation No (0 pts) Intoxicated or Sedated No (0 pts) Impaired Gait No (0 pts) Mobility Assist Device Used No (0 pt) Altered Elimination No (0 pt) Score/Fall Risk Level 0 - 2 = Low Risk Oriented to surroundings, Maintained a safe environment, Educated pt \\T\\ family on fall prevention, incl call for assistance when getting out of bed, Assessed \\T\\ reinforced patient's understanding of fall precautions, Provided non-skid footwear, Hourly rounding (assess needs \\T\\ fall precautionary measures) done, Used ambulatory aids as needed (educated on \\T\\ assisted with), Used gait belt as appropriate. Abuse screen: Denies threats or abuse. Denies injuries from another. Nutritional screening: No deficits noted. Tuberculosis screening: No symptoms or risk factors identified. Assessment: 03:18 General: Appears uncomfortable, Behavior is calm, cooperative. Pain: Complains of pain rv in head. Neuro: Level of Consciousness is awake, alert, obeys commands, Oriented to person, place, time, situation, Reports headache. Cardiovascular: Capillary refill < 3 seconds. Respiratory: Airway is patent Respiratory effort is even, unlabored. GI: No signs and/or symptoms were reported involving the gastrointestinal system. : No signs and/or symptoms were reported regarding the genitourinary system. 04:20 Reassessment: Patient appears in no apparent distress at this time. Patient and/or lg3 family updated on plan of care and expected duration. Pain level reassessed. Patient is alert, oriented x 3, equal unlabored respirations, skin warm/dry/pink. Patient states feeling better. Patient states symptoms have improved. 05:51 Reassessment: Patient appears in no apparent distress at this time. No changes from lg3 previously documented assessment. Patient and/or family updated on plan of care and expected duration. Pain level reassessed. Patient is alert, oriented x 3, equal unlabored respirations, skin warm/dry/pink. Patient states feeling better. Patient states symptoms have improved. Vital Signs: 02:41 BP 122 / 84; Pulse 74; Resp 18 S; Temp 97.8(O); Pulse Ox 97% on R/A; Weight 113.4 kg as6 (R); Height 5 ft. 4 in. (R); Pain 10/10; 04:20 BP 135 / 72; Pulse 66; Resp 17 S; Pulse Ox 98% on R/A; lg3 05:51 BP 123 / 64; Pulse 59; Resp 15 S; Pulse Ox 99% on R/A; lg3 02:41 Body Mass Index 42.91 (113.40 kg, 162.56 cm) as6 02:41 Pain Scale: Adult as6 [place] Coma Score: 05:38 Eye Response: spontaneous(4). Motor Response: obeys commands(6). Verbal Response: sp4 oriented(5). Total: 15. ED Course: 02:35 Patient arrived in ED. ag3 02:42 Triage completed. as6 02:43 Arm band placed on. as6 02:47 Aniket Mcleod MD is Attending Physician. sp4 03:17 Darien Borden RN is Primary Nurse. rv 03:18 No provider procedures requiring assistance completed. rv 03:19 Patient has correct armband on for positive identification. Provided Education on: rv blu. 03:22 Inserted saline lock: 20 gauge in right antecubital area, using aseptic technique. rv 05:57 IV discontinued, intact, bleeding controlled, No redness/swelling at site. Pressure lg3 dressing applied. Administered Medications: 03:23 Drug: morphine IVP or IV 4 mg Route: IVP; Infused Over: 4 mins; Site: right antecubital;rv 05:51 Follow up: Response: No adverse reaction; Marked relief of symptoms lg3 03:23 Drug: Ketorolac IVP 30 mg Route: IVP; Site: right antecubital; rv 05:50 Follow up: Response: No adverse reaction; Marked relief of symptoms lg3 03:23 Drug: metoCLOPramide IVP 10 mg Route: IVP; Site: right antecubital; rv 05:50 Follow up: Response: No adverse reaction; Marked relief of symptoms lg3 03:23 Drug: NS 0.9% IV 1000 ml Route: IV; Rate: 1 bolus; Site: right antecubital; rv 05:50 Follow up: IV Status: Completed infusion; IV Intake: 1000ml lg3 03:23 Drug: diphenhydrAMINE IVP 50 mg Route: IVP; Site: right antecubital; rv 05:50 Follow up: Response: No adverse reaction; Marked relief of symptoms lg3 Medication: 03:19 VIS not applicable for this client. rv Intake: 05:50 IV: 1000ml; Total: 1000ml. lg3 Outcome: 05:43 Discharge ordered by . sp4 05:57 Discharged to home ambulatory, with family. lg3 05:57 Condition: stable 05:57 Discharge instructions given to patient, Instructed on discharge instructions, follow up and referral plans. medication usage, Demonstrated understanding of instructions, follow-up care, medications, Prescriptions given X 1. 05:57 Patient left the ED. lg3 Signatures: Darien Borden, RN CALEB Mariposa Lang3 Robina Oakley, CALEB RN lg3 Brett Oliveros, CALEB ELLIS as6 Aniket Mcleod MD MD sp4
[2022-11-02 06:06] VITALS: TEMP 97.8
[2022-11-02 06:17] VITALS: BP 123/64; O2SAT 99
== END 2022-11-02 05:57 | disposition home or self-care (01) ==
LOC: ER 02:34
DX: G44.89 Other headache syndrome (principal); G43.809 Other migraine, not intractable, without status migrainosus; Z88.5 Allergy status to narcotic agent; Z88.6 Allergy status to analgesic agent; Z91.048 Other nonmedicinal substance allergy status; Z86.011 Personal history of benign neoplasm of the brain
CPT/HCPCS: J2765; J1200; J7030

== ENCOUNTER 2022-12-20 10:43 | Emergency (ER) | payer OTHER ==
--- OUTSIDE RECORDS SUMMARY | 2022-12-20 10:55 | XMS REPORT | Continuity of Care Document ---
:1975 Author Organization [facility] t Address [address] [facility] [address] [place] [address] Care Team Providers Name Role Phone MANJINDER CHACON Primary Care Physician Unavailable Manjinder Chacon Attending Clinician Unavailable MAGUI RAMIREZ Attending Clinician Unavailable Sharon HAHN, Alonso Buckner Attending Clinician Joelle FINISHING MACHINE OPERATOR AUTOMATIC-[employer]ay[employer] Attending Clinician DINO VARELA Attending Clinician Unavailable NICOLAS AGUAYO Attending Clinician Unavailable NICOLAS AGUAYO Attending Clinician Unavailable EDUARDO ESCALANTE Attending Clinician Unavailable EDUARDO ESCALANTE Attending Clinician Unavailable Carol ELLIS, Shila Attending Clinician Unavailable Edyta HAHN, Yogesh Leon Attending Clinician Khadra HAHN, Lilian Kathleen Attending Clinician GULSHAN COX Attending Clinician Unavailable Gulsahn Cox MD Attending Clinician Doctor Unassigned, [place] Attending Clinician Unavailable ANGELA ZUNIGA Attending Clinician Unavailable Nimtz AIRPLANE REFUELER, Angela L Attending Clinician Avery HAHN, Dino Attending Clinician YUMIKO MARRERO Attending Clinician Unavailable Nahun Ortez MD Attending Clinician Ju Frey MD, Kathy Attending Clinician Yumiko Marrero MD Attending Clinician Salena HAHN, Imani K.H. Attending Clinician [facility], [facility] Lab Main Attending Clinician Unavailable IMANI MARTINO K.H. Attending Clinician Unavailable Katherine FINISHING MACHINE OPERATOR AUTOMATIC, Kathryn Velasquez Attending Clinician [phone] Gopi ELLIS, Norman Mckay Attending Clinician Unavailable Debbie HAHN, Acacia Attending Clinician Kelvin HAHN, Joel Mendez Attending Clinician [phone] Binu HAHN, Fredi Attending Clinician Lauren Francois MD Attending Clinician Richelle Lowry MD Attending Clinician Alex Dillon MD Attending Clinician Mendez ELLIS, Rupinder Attending Clinician Unavailable FANNIE CADE Attending Clinician Unavailable Fannie Leonard S Attending Clinician [facility], [facility] Nurse Attending Clinician Unavailable Angelina Quinones MD [...] Unavailable FREDI SCHMID Admitting Clinician Unavailable FANNIE CADE Admitting Clinician Unavailable Payers Payer Name Policy Type Policy Number Effective Date Expiration Date Kenneth hunter [facility] STAR [id number] 2019 PLUS 00:00:00 [place] [id number] 2019 Common HEALTHCARE 00:00:00 [facility] - [facility] STAR [id number] 2019 PLAN 00:00:00 Problems Condition Condition Condition Status Onset Resolution Last Treating Co mments Source Name Details Category Date Date Treatment Clinician Date SVT SVT Disease Active Overview: Univer s (supravent (supravent 3-10 Formattin ity of ricular ricular 00:00: g of this [place] tachycardi tachycardi 00 note Me dical a) a) might be Branch different from the original. Added automatic ally from request for surgery [id number] Chest Chest Disease Active Univers pain, pain, [...] vers varicella varicella 6-29 ity of 00:00: [place] [facility] BMI BMI Disease Active Univers 45.0-49.9, 45.0-49.9, 6-28 it y of adult adult 00:00: [place] [address] Medical Branch Excessive Excessive Disease Active Uni vers or or 6-21 ity of frequent frequent 00:00: [place] menstruati menstruati 00 Me dical on on Branch Knee pain, Knee pain, Disease Active U nivers left left 4-05 ity of 00:00: [place] [facility] Knee pain, Knee pain, Disease Active U nivers left left 4-05 ity of 00:00: 00 Medical Branch Subclinica Subclinica Problem C ommon l l Spirit hyperthyro hyperthyro - CHI idism idism [facility] [id number] Allergic Problem Commo n rhinitis, Spirit unspecifie - [facility]I d [facility] y, Medical unspecifie Center d trigger [id number] Morbid Problem Commo n 9104 (severe) Spirit obesity - CHI due to 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 [facility] [id number] Migraine Problem Comm on without Spirit aura and - CHI without [facility] migrainosu Medica l s, not Center intractabl e [id number] Abnormal Problem Comm on mammogram Spirit of left - CHI breast [facility] [id number] Essential Problem Comm on hypertensi Spirit on CH[facility] [id number] MARYBETH Problem Common (generaliz Spirit ed anxiety - CHI disorder) [facility] [id number] Insomnia, Problem Com mon unspecifie Spirit d type - [facility] Allergies, Adverse Reactions, Alerts Allergy Allergy [...] ity of adverse 00:00: [place] reaction 00 [facility] s Branch TRAMADOL DRUG Active Hallucinates Un vale INGREDI 8-14 ity of 00:00: [place] 00 [facility] Social History Social Habit Start Date Stop Date Quantity Comments Source History of Tobacco Common Spirit - Use [facility] Gender identity [facility] History of Social 2022-08-04 2022-08-[address] function 00:00:00 00:00:00 Hospital Exposure to 2022-06-22 2022-07-02 Not sure [facility] SARS-CoV-2 (event) 00:00:00 10:15:[address] [facility] Education 2022-05-24 2022-05-24 21 University of 00:00:00 00:00:[address] [facility] Alcohol intake 2021-08-26 2021-08-26 Ex-drinker [facility] 00:00:00 00:00:00 (finding) Hospital Tobacco use and 2021-08-08 2021-08-08 Smokeless [facility] exposure 00:00:00 00:00:00 tobacco non-user Hospital Sex Assigned At [birth year] [facility] 00:00:00 [facility]:00:00 [facility] Smoking Status Start Date Stop Date Source Never smoked tobacco [facility] Medications Ordered Filled Start Stop [...] l (two) times a day. famotidine 2023-0 4- No 20mg Q.5D Take 1 Meth shay (Pepcid) 20 09-15-14 tablet (20 s t MG tablet 00:00: 04:59 mg total) Ho spita 00 :00 by mouth 2 l (two) times a day. famotidine 2023-0 4- No 20mg Q.5D Take 1 Meth shay (Pepcid) 20 09-15-14 tablet (20 s t MG tablet 00:00: 04:59 mg total) [facility] spita 00 :00 by mouth 2 l (two) times a day. famotidine 3-0 2023- No 20mg Q.5D Take 1 Meth shay (Pepcid) 20 09-1514 tablet (20 s t MG tablet 00:00: [...] 39 by mouth l tablet daily. levETIRAcet 2023-0 3- No 500mg Q.[id number] Take 1 [facility] (KEPPRA) 08-05- [id number] tablet st 500 MG 00:00: 04:59 3D (500 mg Hospita tablet 00 :00 total) by l mouth 3 (three) times a day for 30 days. sertraline 2023-0 2023- No 100mg QD Take 2 Met hodi (ZOLOFT) 50 08-05- tablets st MG tablet 00:00: 04:59 (100 mg Hosp isael 00 :00 total) by l mouth daily for 30 days. levETIRAcet 2022-0 2022- No 500mg Q.[id number] Take 1 [facility] (KEPPRA) 08-05- [id number] tablet st 500 MG 00:00: 04:59 3D (500 mg Hospita tablet 00 :00 total) by l mouth 3 (three) times a day for 30 days. sertraline 2022-0 2022- No 100mg QD Take 2 Met [facility] (ZOLOFT) 50 -07 08-[address] MG tablet 00:00: 04:59 (100 mg Hosp isael 00 :00 total) by l mouth daily for 30 days. levETIRAcet 2022-0 2022- No 500mg Q.[id number] Take 1 [facility] (KEPPRA) 08-05- [id number] tablet st 500 MG 00:00: 04:59 3D (500 mg Hospita tablet 00 :00 total) by l mouth 3 (three) times a day for 30 days. sertraline 2022-0 2022- No 100mg QD Take 2 Met [facility]odi (ZOLOFT) 50 08-05-[address] MG tablet 00:00: 04:59 (100 mg Hosp isael 00 :00 total) by l mouth daily for 30 days. sumatriptan 2022-0 Yes Take by Uni vers succ/naprox 4-20 mouth as ity of en sod 08:29: needed. [place] (SUMATRIPTA 03 Medical N-NAPROXEN Branch ORAL) sertraline 2022-0 Yes Take by [facility] ers HCl (ZOLOFT 4-20 mouth. ity of ORAL) 08:29: [place] [facility] sumatriptan 3-0 Yes Take by Uni vers succ/naprox 4-20 mouth as ity of en sod 08:29: needed. [place] (SUMATRIPTA 03 Medical N-NAPROXEN Branch ORAL) sertraline 2022-0 Yes Take by Univ ers HCl (ZOLOFT 4-20 mouth. ity of ORAL) 08:29: [place] 03 Medical Branch sumatriptan 3-0 Yes Take by Uni vers succ/naprox 4-20 mouth as ity of en sod 08:29: needed. [place] (SUMATRIPTA 03 Medical N-NAPROXEN Branch ORAL) sertraline 3-0 Yes Take by Univ ers HCl (ZOLOFT 4-20 mouth. ity of ORAL) 08:29: [place] [address] Medical Branch sumatriptan 2023-0 Yes Take by Uni vers succ/naprox 4-20 mouth as ity of en sod 08:29: needed. [place] (SUMATRIPTA 03 Medical N-NAPROXEN Branch ORAL) sertraline 3-0 Yes Take by Univ ers HCl (ZOLOFT 4-20 mouth. ity of ORAL) 08:29: [place] [address] Medical Branch sumatriptan 2023-0 Yes Take by Uni vers succ/naprox 4-20 mouth as ity of en sod 08:29: needed. [place] (SUMATRIPTA 03 Medical N-NAPROXEN Branch ORAL) sertraline 2023-0 Yes Take by Univ ers HCl (ZOLOFT 4-20 mouth. ity of ORAL) 08:29: [address] Branch diltiazem 2023-0 Yes 30mg Q.5D Take 1 Method i (CardIZEM) 4-20 tablet (30 st 30 MG 00:00: mg total) Hospita tablet 00 by mouth 2 l (two) times a day. diltiazem 2023-0 Yes 30mg Q.5D Take 1 Method i (CardIZEM) 4-20 tablet (30 st 30 MG 00:00: mg total) Hospita tablet 00 by mouth 2 l (two) times a day. diltiazem 2023-0 Yes [id number] 30mg Take 1 Un vale 30 mg 4-20 tablet by ity of tablet 00:00: mouth [place] 00 every 8 Medical (eight) Branch hours. diltiazem 2023-0 Yes [id number] 30mg Take 1 Un vale 30 mg 4-20 tablet by ity of tablet 00:00: mouth [place] 00 every 8 Medical (eight) Branch hours. diltiazem 2023-0 Yes [id number] 30mg Take 1 Un vale 30 mg 4-20 tablet by ity of tablet 00:00: mouth [place] 00 every 8 Medical (eight) Branch hours. diltiazem 2023-0 Yes [id number] 30mg Take 1 Un vale 30 mg 4-20 tablet by ity of tablet 00:00: mouth [place] 00 every 8 Medical (eight) Branch hours. diltiazem 0 Yes 30mg Q.5D Take 1 Method i (CardIZEM) 4-20 tablet (30 st 30 MG 00:00: mg total) Hospita tablet 00 by mouth 2 l (two) times a day. FENTanyl PF 0 Yes 25ug 25 mcg, Uni vers (SUBLIMAZE 331 Slow IV ity of (PF)) 19:50: Push, [...] by mouth ity of ORAL 18:24: daily. [address] pregabalin Yes Take by [facility] ers (LYRICA 07-02 mouth ity of ORAL) 18:24: daily. [address] montelukast Yes 10mg Take 10 mg Univers 10 mg 07-02 by mouth ity of tablet 18:24: daily. [place] [facility] sumatriptan Yes Take by Uni vers succ/naprox 07-02 mouth as ity of en sod 18:24: needed. [place] (SUMATRIPTA [address] [place] [address] N-NAPROXEN Branch ORAL) SERTraline Yes 100mg Take 100 Un vale 100 mg 3-31 mg by ity of tablet 18:24: mouth [place] daily. [facility] Branch sertraline Yes Take by [facility] ers HCl (ZOLOFT 3-31 mouth. ity of ORAL) 18:24: [place] [address] Medical Branch HYDROCHLORO 3-0 Yes 10mg Take 10 mg Univers THIAZIDE 3-31 by mouth ity of ORAL 18:24: daily. [place] [address] Medical Branch pregabalin 2022-0 Yes Take by Univ ers (LYRICA 3-31 mouth ity of ORAL) 18:24: daily. [place] [facility] montelukast 2022-0 Yes 10mg Take 10 mg Univers 10 mg 3-31 by mouth ity of tablet 18:24: daily. [place] [address] Medical Branch sumatriptan 2022-0 Yes Take by Uni vers succ/naprox 3-31 mouth as ity of en sod 18:24: needed. [place] (SUMATRIPTA Medical N-NAPROXEN Branch ORAL) SERTraline 2022-0 Yes 100mg Take 100 Un vale 100 mg 3-31 mg by ity of tablet 18:24: mouth daily. Medical Branch sertraline 3-0 Yes Take by Univ ers HCl (ZOLOFT 3-31 mouth. ity of ORAL) 18:24: [place] [address] Medical Branch HYDROCHLORO 3-0 Yes 10mg Take 10 mg Univers THIAZIDE 3-31 by mouth ity of ORAL 18:24: daily. [place] [address] Medical Branch pregabalin 2022-0 Yes Take by Univ ers (LYRICA 3-31 mouth ity of ORAL) 18:24: daily. [place] [address] Medical Branch montelukast 2022-0 Yes 10mg Take 10 mg Univers 10 mg 3-31 by mouth ity of tablet 18:24: daily. [place] [address] Medical Branch sumatriptan 3-0 Yes Take by Uni vers succ/naprox 3-31 mouth as ity of en sod 18:24: needed. [place] (SUMATRIPTA Medical N-NAPROXEN Branch ORAL) SERTraline 3-0 Yes 100mg Take 100 Un vale 100 mg 3-31 mg by ity of tablet 18:24: mouth daily. Medical Branch sertraline 3-0 Yes Take by Univ ers HCl (ZOLOFT 3-31 mouth. ity of ORAL) 18:24: [place] [address] Medical Branch HYDROCHLORO 3-0 Yes 10mg Take 10 mg Univers THIAZIDE 3-31 by mouth ity of ORAL 18:24: daily. [place] [address] Medical Branch pregabalin 2022-0 Yes Take by Univ ers (LYRICA 3-31 mouth ity of ORAL) 18:24: daily. [place] [facility] montelukast 2022-0 Yes 10mg Take 10 mg Univers 10 mg 3-31 by mouth ity of tablet 18:24: daily. [place] [facility] sumatriptan 2022-0 Yes Take by Uni vers succ/naprox 3-31 mouth as ity of en sod 18:24: needed. [place] (SUMATRIPTA 01 Medical N-NAPROXEN Branch ORAL) SERTraline 2022-0 Yes 100mg Take 100 Un vale 100 mg 3-31 mg by ity of tablet 18:24: mouth daily. Medical Branch sertraline 2022-0 Yes Take by Univ ers HCl (ZOLOFT 3-31 mouth. ity of ORAL) 18:24: [place] [address] Medical Branch HYDROCHLORO 3-0 Yes 10mg Take 10 mg Univers THIAZIDE 3-31 by mouth ity of ORAL 18:24: daily. [place] [address] Medical Branch pregabalin 2022-0 Yes Take by Univ ers (LYRICA 3-31 mouth ity of ORAL) 18:24: daily. [place] [facility] montelukast 2022-0 Yes 10mg Take 10 mg Univers 10 mg 3-31 by mouth ity of tablet 18:24: daily. [place] [facility] sumatriptan 2022-0 Yes Take by Uni vers succ/naprox 3-31 mouth as ity of en sod 18:24: needed. [place] (SUMATRIPTA Medical N-NAPROXEN Branch ORAL) SERTraline 2022-0 Yes 100mg Take 100 Un vale 100 mg 3-31 mg by ity of tablet 18:24: mouth daily. Medical Branch sertraline 2022-0 Yes Take by Univ ers HCl (ZOLOFT 3-31 mouth. ity of ORAL) 18:24: [place] [address] Medical Branch HYDROCHLORO 3-0 Yes 10mg Take 10 mg Univers THIAZIDE 3-31 by mouth ity of ORAL 18:24: daily. [place] [address] Medical Branch pregabalin 3-0 Yes Take by Univ ers (LYRICA 3-31 mouth ity of ORAL) 18:24: daily. [place] [address] Medical Branch montelukast 2022-0 Yes 10mg Take 10 mg Univers 10 mg 3-31 by mouth ity of tablet 18:24: daily. Medical Branch SERTraline 2022-0 Yes 100mg Take 100 Un vale 100 mg 3-31 mg by ity of tablet 18:24: mouth [place] daily. Medical Branch HYDROCHLORO 3-0 Yes 10mg Take 10 mg Univers THIAZIDE 3-31 by mouth ity of ORAL 18:24: daily. Medical Branch pregabalin 2022-0 Yes Take by Univ ers (LYRICA 3-31 mouth ity of ORAL) 18:24: daily. Medical Branch montelukast 2022-0 Yes 10mg Take 10 mg Univers 10 mg 3-31 by mouth ity of tablet 18:24: daily. Medical Branch SERTraline 2022-0 Yes 100mg Take 100 Un vale 100 mg 3-31 mg by ity of tablet 18:24: mouth [place] daily. Medical Branch HYDROCHLORO 2022-0 Yes 10mg Take 10 mg Univers THIAZIDE 3-31 by mouth ity of ORAL 18:24: daily. Medical Branch pregabalin 2022-0 Yes Take by Univ ers (LYRICA 3-31 mouth ity of ORAL) 18:24: daily. Medical Branch montelukast 2022-0 Yes 10mg Take 10 mg Univers 10 mg 3-31 by mouth ity of tablet 18:24: daily. Medical Branch SERTraline 2022-0 Yes 100mg Take 100 Un vale 100 mg 3-31 mg by ity of tablet 18:24: mouth daily. Medical Branch HYDROCHLORO 3-0 Yes 10mg Take 10 mg Univers THIAZIDE 3-31 by mouth ity of ORAL 18:24: daily. Medical Branch pregabalin 2022-0 Yes Take by [...] by mouth ity of ORAL 18:24: daily. [place] [facility] Branch pregabalin 0 Yes Take by Univ ers (LYRICA 3-31 mouth ity of ORAL) 18:24: daily. [place] [facility] Branch montelukast Yes 10mg Take 10 mg Univers 10 mg 3-31 by mouth ity of tablet 18:24: daily. [address] Branch SERTraline Yes 100mg Take 100 Un vale 100 mg 3-31 mg by ity of tablet 18:24: mouth [place] daily. Medical Branch atorvastati 0 Yes 40mg 40 mg, Univ ers n (LIPITOR) 2-20 Oral, QPM, it y of tablet 40 23:00: First dose [place] mg 00 on Tue05/24/22 at Branch 1700, Until Discontinu ed, Routine HYDROCHLORO 0 Yes 10mg Take 10 mg Univers THIAZIDE 2-20 by mouth ity of ORAL 20:15: daily. [address] pregabalin Yes Take by [facility] ers (LYRICA 2-20 mouth ity of ORAL) 20:15: daily. [address] montelukast Yes 10mg Take 10 mg Univers 10 mg 2-20 by mouth ity of tablet 20:15: daily. [address] sumatriptan Yes Take by Uni vers succ/naprox 2-20 mouth as ity of en sod 20:15: needed. [place] (SUMATRIPTA [address] [place] [address] N-NAPROXEN [place] ORAL) SERTraline Yes 100mg Take 100 Un vale 100 mg 2-20 mg by ity of tablet 20:15: mouth [place] [address] daily. [facility] Branch sertraline 0 Yes Take by Univ ers HCl (ZOLOFT 2-20 mouth. ity of ORAL) 20:15: [address] HYDROCHLORO 2022-0 Yes 10mg Take 10 mg Univers THIAZIDE 2-20 by mouth ity of ORAL 20:15: daily. [address] pregabalin Yes Take by Univ ers (LYRICA 2-20 mouth ity of ORAL) 20:15: daily. [address] montelukast 2023-0 Yes 10mg Take 10 mg Univers 10 mg 2-20 by mouth ity of tablet 20:15: daily. [place] [address] Medical Branch sumatriptan 2022-0 Yes Take by Uni vers succ/naprox 2-20 mouth as ity of en sod 20:15: needed. [place] (SUMATRIPTA 52 Medical N-NAPROXEN Branch ORAL) SERTraline 2022-0 Yes 100mg Take 100 Un vale 100 mg 2-20 mg by ity of tablet 20:15: mouth [place] [address] daily. Medical Branch sertraline 2022-0 Yes Take by Univ ers HCl (ZOLOFT 2-20 mouth. ity of ORAL) 20:15: [place] [address] Medical Branch HYDROCHLORO 2022-0 Yes 10mg Take 10 mg Univers THIAZIDE 2-20 by mouth ity of ORAL 20:15: daily. [place] [address] Medical Branch pregabalin 2022-0 Yes Take by Univ ers (LYRICA 2-20 mouth ity of ORAL) 20:15: daily. [address] Branch montelukast 2022-0 Yes 10mg Take 10 mg Univers 10 mg 2-20 by mouth ity of tablet 20:15: daily. [place] [address] Medical Branch sumatriptan 2022-0 Yes Take by Uni vers succ/naprox 2-20 mouth as ity of en sod 20:15: needed. [place] (SUMATRIPTA 52 Medical N-NAPROXEN Branch ORAL) SERTraline 2022-0 Yes 100mg Take 100 Un vale 100 mg 2-20 mg by ity of tablet 20:15: mouth [place] [address] daily. Medical Branch sertraline 2022-0 Yes Take by Univ ers HCl (ZOLOFT 2-20 mouth. ity of ORAL) 20:15: [place] [address] Medical Branch HYDROCHLORO 2022-0 Yes 10mg Take 10 mg Univers THIAZIDE 2-20 by mouth ity of ORAL 20:15: daily. [address] Branch pregabalin 2022-0 Yes Take by Univ ers (LYRICA 2-20 mouth ity of ORAL) 20:15: daily. [address] Branch montelukast 2022-0 Yes 10mg Take 10 mg Univers 10 mg 2-20 by mouth ity of tablet 20:15: daily. [address] Branch sumatriptan 2022-0 Yes Take by Uni vers succ/naprox 2-20 mouth as ity of en sod 20:15: needed. [place] (SUMATRIPTA 52 Medical N-NAPROXEN Branch ORAL) SERTraline 3-0 Yes 100mg Take 100 Un vale 100 mg 2-20 mg by ity of tablet 20:15: mouth [place] [address] daily. Medical Branch sertraline 2022-0 Yes Take by Univ ers HCl (ZOLOFT 2-20 mouth. ity of ORAL) 20:15: [place] [address] Medical Branch HYDROCHLORO 3-0 Yes 10mg Take 10 mg Univers THIAZIDE 2-20 by mouth ity of ORAL 20:15: daily. [place] [address] Medical Branch pregabalin 2022-0 Yes Take by Univ ers (LYRICA 2-20 mouth ity of ORAL) 20:15: daily. [place] [address] Medical Branch montelukast 2022-0 Yes 10mg Take 10 mg Univers 10 mg 2-20 by mouth ity of tablet 20:15: daily. [place] [address] Medical Branch sumatriptan 2022-0 Yes Take by Uni vers succ/naprox 2-20 mouth as ity of en sod 20:15: needed. [place] (SUMATRIPTA 52 Medical N-NAPROXEN Branch ORAL) SERTraline 2022-0 Yes 100mg Take 100 Un vale 100 mg 2-20 mg by ity of tablet 20:15: mouth [place] [address] daily. Medical Branch sertraline 2022-0 Yes Take by Univ ers HCl (ZOLOFT 2-20 mouth. ity of ORAL) 20:15: [place] [address] Medical Branch HYDROCHLORO 3-0 Yes 10mg Take 10 mg Univers THIAZIDE 2-20 by mouth ity of ORAL 20:15: daily. [place] [address] Medical Branch pregabalin 3-0 Yes Take by Univ ers (LYRICA 2-20 mouth ity of ORAL) 20:15: daily. [place] [address] Medical Branch montelukast 3-0 Yes 10mg Take 10 mg Univers 10 mg 2-20 by mouth ity of tablet 20:15: daily. [place] [address] Medical Branch sumatriptan 3-0 Yes Take by Uni vers succ/naprox 2-20 mouth as ity of en sod 20:15: needed. [place] (SUMATRIPTA 52 Medical N-NAPROXEN Branch ORAL) SERTraline 3-0 Yes 100mg Take 100 Un vale 100 mg 2-20 mg by ity of tablet 20:15: mouth [place] [address] daily. Medical Branch sertraline 2022-0 Yes Take by Univ ers HCl (ZOLOFT 2-20 mouth. ity of ORAL) 20:15: [place] [address] Medical Branch HYDROCHLORO 2022-0 Yes 10mg Take 10 mg Univers THIAZIDE 2-20 by mouth ity of ORAL 20:15: daily. [place] [address] Medical Branch pregabalin 2022-0 Yes Take by Univ ers (LYRICA 2-20 mouth ity of ORAL) 20:15: daily. [place] [address] Medical Branch montelukast 2022-0 Yes 10mg Take 10 mg Univers 10 mg 2-20 by mouth ity of tablet 20:15: daily. [place] [address] Medical Branch sumatriptan 2022-0 Yes Take by Uni vers succ/naprox 2-20 mouth as ity of en sod 20:15: needed. [place] (SUMATRIPTA Medical N-NAPROXEN Branch ORAL) SERTraline 2022-0 Yes 100mg Take 100 Un vale 100 mg 2-20 mg by ity of tablet 20:15: mouth [place] [address] daily. Medical Branch sertraline 2022-0 Yes Take by Univ ers HCl (ZOLOFT 2-20 mouth. ity of ORAL) 20:15: [place] [address] Medical Branch HYDROCHLORO 2022-0 Yes 10mg Take 10 mg Univers THIAZIDE 2-20 by mouth ity of ORAL 20:15: daily. [place] [address] Medical Branch pregabalin 2022-0 Yes Take by Univ ers (LYRICA 2-20 mouth ity of ORAL) 20:15: daily. [address] Branch montelukast 2022-0 Yes 10mg Take 10 mg Univers 10 mg 2-20 by mouth ity of tablet 20:15: daily. [place] [address] Medical Branch sumatriptan 2022-0 Yes Take by Uni vers succ/naprox 2-20 mouth as ity of en sod 20:15: needed. [place] (SUMATRIPTA 52 Medical N-NAPROXEN Branch ORAL) SERTraline 3-0 Yes 100mg Take 100 Un vale 100 mg 2-20 mg by ity of tablet 20:15: mouth [place] [address] daily. Medical Branch sertraline 2022-0 Yes Take by Univ ers HCl (ZOLOFT 2-20 mouth. ity of ORAL) 20:15: [place] [address] Medical Branch HYDROCHLORO 2023-0 Yes 10mg Take 10 mg Univers THIAZIDE 2-20 by mouth ity of ORAL 20:15: daily. [place] [address] Medical Branch pregabalin 2022-0 Yes Take by Univ ers (LYRICA 2-20 mouth ity of ORAL) 20:15: daily. [address] Branch montelukast 2022-0 Yes 10mg Take 10 mg Univers 10 mg 2-20 by mouth ity of tablet 20:15: daily. [place] [address] Medical Branch sumatriptan 2022-0 Yes Take by Uni vers succ/naprox 2-20 mouth as ity of en sod 20:15: needed. [place] (SUMATRIPTA 52 Medical N-NAPROXEN Branch ORAL) SERTraline 2022-0 Yes 100mg Take 100 Un vale 100 mg 2-20 mg by ity of tablet 20:15: mouth [place] [address] daily. Medical Branch sertraline 2022-0 Yes Take by Univ ers HCl (ZOLOFT 2-20 mouth. ity of ORAL) 20:15: [address] Branch HYDROCHLORO 2022-0 Yes 10mg Take 10 mg Univers THIAZIDE 2-20 by mouth ity of ORAL 20:15: daily. [place] [address] Medical Branch pregabalin 2022-0 Yes Take by Univ ers (LYRICA 2-20 mouth ity of ORAL) 20:15: daily. [address] Branch montelukast 2022-0 Yes 10mg Take 10 mg Univers 10 mg 2-20 by mouth ity of tablet 20:15: daily. [address] Branch sumatriptan 2022-0 Yes Take by Uni vers succ/naprox 2-20 mouth as ity of en sod 20:15: needed. [place] (SUMATRIPTA 52 Medical N-NAPROXEN Branch ORAL) SERTraline 2022-0 Yes 100mg Take 100 Un vale 100 mg 2-20 mg by ity of tablet 20:15: mouth [place] [address] daily. Medical Branch sertraline 2022-0 Yes Take by Univ ers HCl (ZOLOFT 2-20 mouth. ity of ORAL) 20:15: [address] Branch HYDROCHLORO 2022-0 Yes 10mg Take 10 mg [facility] THIAZIDE 2-20 by mouth ity of ORAL 20:15: daily. [place] [address] Medical Branch pregabalin 2022-0 Yes Take by [facility] ers (LYRICA 2-20 mouth ity of ORAL) 20:15: daily. [place] [address] Medical Branch montelukast 2022-0 Yes 10mg Take 10 mg [facility] 10 mg 2-20 by mouth ity of tablet 20:15: daily. [place] [address] Medical Branch sumatriptan 2022-0 Yes Take by [facility] vers succ/naprox 2-20 mouth as ity of en sod 20:15: needed. [place] (SUMATRIPTA 52 Medical N-NAPROXEN Branch ORAL) SERTraline 2022-0 Yes 100mg Take 100 Un vale 100 mg 2-20 mg by ity of tablet 20:15: mouth [place] [address] daily. Medical Branch sertraline 2022-0 Yes Take by [facility] ers HCl (ZOLOFT 2-20 mouth. ity of ORAL) 20:15: [place] [address] Medical Branch HYDROCHLORO 2022-0 Yes 10mg Take 10 mg [facility] THIAZIDE 2-20 by mouth ity of ORAL 20:15: daily. [place] [address] Medical Branch pregabalin 2022-0 Yes Take by Univ ers (LYRICA 2-20 mouth ity of ORAL) 20:15: daily. [place] [address] Medical Branch montelukast 2022-0 Yes 10mg Take 10 mg [facility] 10 mg 2-20 by mouth ity of tablet 20:15: daily. [place] [address] Medical Branch sumatriptan 2022-0 Yes Take by Uni vers succ/naprox 2-20 mouth as ity of en sod 20:15: needed. [place] (SUMATRIPTA 52 Medical N-NAPROXEN Branch ORAL) SERTraline 2022-0 Yes 100mg Take 100 Un vale 100 mg 2-20 mg by ity of tablet 20:15: mouth [place] [address] daily. Medical Branch sertraline 2022-0 Yes Take by [facility] ers HCl (ZOLOFT 2-20 mouth. ity of ORAL) 20:15: [place] [address] Medical Branch HYDROCHLORO 3-0 Yes 10mg Take 10 mg [facility] THIAZIDE 2-20 by mouth ity of ORAL 20:15: daily. [place] [address] Medical Branch pregabalin 2022-0 Yes Take by Univ ers (LYRICA 2-20 mouth ity of ORAL) 20:15: daily. [address] Branch montelukast 3-0 Yes 10mg Take 10 mg [facility] 10 mg 2-20 by mouth ity of tablet 20:15: daily. [address] Branch sumatriptan 2022-0 Yes Take by Uni vers succ/naprox 2-20 mouth as ity of en sod 20:15: needed. [place] (SUMATRIPTA 52 Medical N-NAPROXEN Branch ORAL) SERTraline 2022-0 Yes 100mg Take 100 Un vale 100 mg 2-20 mg by ity of tablet 20:15: mouth [place] [address] daily. Medical Branch sertraline 2022-0 Yes Take by [facility] ers HCl (ZOLOFT 2-20 mouth. ity of ORAL) 20:15: [address] HYDROCHLORO 2022-0 Yes 10mg Take 10 mg [facility] THIAZIDE 2-20 by mouth ity of ORAL 20:15: daily. [address] Branch pregabalin 0 Yes Take by Univ ers (LYRICA 2-20 mouth ity of ORAL) 20:15: daily. [address] montelukast 2022-0 Yes 10mg Take 10 mg [facility] 10 mg 2-20 by mouth ity of tablet 20:15: daily. [address] sumatriptan 0 Yes Take by Uni vers succ/naprox 2-20 mouth as ity of en sod 20:15: needed. [place] (SUMATRIPTA Medical N-NAPROXEN Branch ORAL) SERTraline 2022-0 Yes 100mg Take 100 Un vale 100 mg 2-20 mg by ity of tablet 20:15: mouth [place] [address] daily. Medical Branch sertraline 0 Yes Take by [facility] ers HCl (ZOLOFT 2-20 mouth. ity of ORAL) 20:15: [address] sulfur 2022-0 2023- No [id number] 5mL 5 mL, Unive rs hexafluorid 2-20 02-20 Intravenou i ty of e microsphr 17:45: 17:45 s, ONCE, 1 [place] (LUMASON) 00 :00 dose, On Medica l injection 5 [facility] mL 05/24/22 at 1145, Routine
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 : FARSHAD CHACON pantoprazol 2022-0 Yes 40mg 40 mg, Univ ers e 2-20 Oral, ity of (PROTONIX) 15:00: DAILY, [place] EC tablet 00 First dose Medi orin 40 mg on Mon Branch 05/24/22 at 0900, Until Discontinu ed, Routine aspirin 0 2022- No 81mg 81 mg, Univers chewable 05-24-20 Oral, ity of tablet 81 15:00: 19:14 DAILY, [place] mg 00 :40 First dose Medical on [facility] 05/24/22 at 0900, Until Discontinu ed, Routine heparin 0 Yes 5000U 5,000 [facility] (porcine) 2-20 Units, ity of injection 14:00: [place] 5,000 Units 00 us, Q12H, Med ical First dose Branch on Tue05/24/22 at 0800, Until Discontinu ed, Routine ondansetron 0 Yes 4mg 4 mg, Slow [facility] (ZOFRAN 2-20 IV Push, ity of (PF)) 11:05: Q6HPRN, [place] injection 4 33 Starting Medi orin mg on [facility] 05/24/22 at 0505, Until Discontinu ed, Routine, Nausea and Vomiting (N/V) morpHINE (4 2022- No 4mg 4 mg, Slow [facility] mg/mL) 05-24 IV Push, ity of injection 4 11:05: 11:04 Q4HPRN, [place] mg 16 :16 Starting Medical on [facility] 05/24/22 at 0505, Until Tue05/25/22 at 0504, Routine, Pain (scale 7-10) acetaminoph Yes 650mg 650 mg, Un vale en 2-20 Oral, ity of (TYLENOL) 11:04: Q6HPRN, [place] tablet 650 52 Starting Medic al mg on [facility] 05/24/22 at 0504, Until Discontinu ed, Routine, Pain (scale 1-3) ondansetron 2022-0 2022- No 4mg 4 mg, Slow [facility] (ZOFRAN 2-20 -20 IV Push, ity of (PF)) 07:15: 06:38 ONCE, 1 [place] injection 4 00 :00 dose, On Medi orin mg [facility] 05/24/22 at 0115, JOSE LUIS HYDROCHLORO 2022-0 Yes 10mg Take 10 mg [facility] THIAZIDE 2-20 by mouth ity of ORAL 05:03: daily. [place] [address] Medical Branch pregabalin 2022-0 Yes Take by [facility] ers (LYRICA 2-20 mouth ity of ORAL) 05:03: daily. [place] [address] Medical Branch montelukast 2022-0 Yes 10mg Take 10 mg [facility] 10 mg 2-20 by mouth ity of tablet 05:03: daily. [place] [address] Medical Branch sumatriptan 2022-0 Yes Take by Uni vers succ/naprox 2-20 mouth as ity of en sod 05:03: needed. [place] (SUMATRIPTA 28 Medical N-NAPROXEN Branch ORAL) SERTraline 2022-0 Yes 100mg Take 100 Un vale 100 mg 2-20 mg by ity of tablet 05:03: mouth daily. Medical Branch sertraline 2022-0 Yes Take by [facility] ers HCl (ZOLOFT 2-20 mouth. ity of ORAL) 05:03: [place] [address] Medical Branch sumatriptan 2022-0 Yes Take by Uni vers succ/naprox 2-14 mouth as ity of en sod 08:48: needed. [place] (SUMATRIPTA 19 Medical N-NAPROXEN Branch ORAL) SERTraline 2022-0 Yes 100mg Take 100 Un vale 100 mg 2-14 mg by ity of tablet 08:48: mouth [place] 19 daily. Medical Branch sumatriptan 2022-0 Yes Take by Uni vers succ/naprox 2-14 mouth as ity of en sod 08:48: needed. [place] (SUMATRIPTA 19 Medical N-NAPROXEN Branch ORAL) SERTraline 2022-0 Yes 100mg Take 100 Un vale 100 mg 2-14 mg by ity of tablet 08:48: mouth [place] 19 daily. Medical Branch sumatriptan 2022-0 Yes Take by Uni vers succ/naprox 2-14 mouth as ity of en sod 08:48: needed. [place] (SUMATRIPTA 19 Medical N-NAPROXEN Branch ORAL) SERTraline 3-0 Yes 100mg Take 100 Un vale 100 mg 2-14 mg by ity of tablet 08:48: mouth [place] 19 daily. Medical Branch sumatriptan 3-0 Yes Take by Uni vers succ/naprox 2-14 mouth as ity of en sod 08:48: needed. [place] (SUMATRIPTA 19 Medical N-NAPROXEN Branch ORAL) SERTraline 2022-0 Yes 100mg Take 100 Un vale 100 mg 2-14 mg by ity of tablet 08:48: mouth [place] 19 daily. Medical Branch sumatriptan 0 Yes Take by Uni vers succ/naprox 2-14 mouth as ity of en sod 08:48: needed. [place] (SUMATRIPTA 19 Medical N-NAPROXEN Branch ORAL) SERTraline 2022-0 Yes 100mg Take 100 Un vale 100 mg 2-14 mg by ity of tablet 08:48: mouth [place] 19 daily. Medical Branch sumatriptan 0 Yes Take by Uni vers succ/naprox 2-14 mouth as ity of en sod 08:48: needed. [place] (SUMATRIPTA 19 Medical N-NAPROXEN Branch ORAL) SERTraline [...] ity of tablet 15:56: 00:00 (two) [place] 39 :00 times Medical daily. Branch propranoloL 2021-04- No 10mg Take 10 mg [facility] 10 mg 2-14 12-14 by mouth 2 ity of tablet 15:56: 00:00 (two) [place] 39 :00 times Medical daily. Branch Macrobid [...] MG 00:00: 00 acetaminoph 2021-0 2021- [place] [id number] 1{tbl} Q6H Take 1 [facility] en-codeine 6-13 06-[address] (TYLENOL 00:00: 04:59 [facility] WITH [facility] :00 every 6 l CODEINE #3) (six) 300-30 mg hours as per tablet needed for moderate pain for up to 10 days .acute pain. acetaminoph 28 1{tbl} Q6H Take 1 Methodi en-codeine 6-14 09-[address] (TYLENOL 00:00: 04:59 [facility] WITH 00 :00 every 6 l CODEINE #3) (six) 300-30 mg hours as per tablet needed for moderate pain for up to 10 days .acute pain. acetaminoph 28 1{tbl} Q6H Take 1 Methodi en-codeine 6-14 09-[address] (TYLENOL 00:00: 04:59 [facility] WITH 00 :00 every 6 l CODEINE #3) (six) 300-30 mg hours as per tablet needed for moderate pain for up to 10 days .acute pain. acetaminoph 28 1{tbl} Q6H Take 1 Methodi en-codeine -[address] (TYLENOL 00:00: 04:59 mouth [facility] WITH 00 :00 every 6 l CODEINE #3) (six) 300-30 mg hours as per tablet needed for moderate pain for up to 10 days .acute pain. acetaminoph 28 1{tbl} Q6H Take 1 Methodi en-codeine 6-[address] (TYLENOL 00:00: 04:59 mouth [...] QD Take 1 Meth shay (ZOLOFT) 50 09-10- tablet (50 s t MG tablet 00:00: [...] mouth 2 (two) times a day. butalbitaL- 2021-2022- No 1{tbl} Q4H Take 1 M ethodi acetaminoph 6-11 06-[address] en (BUPAP) 00:00: 00:00 mouth [facility] 50-325 mg 00 :00 every 4 l tablet (four) hours as needed (headaches ). levETIRAcet 2021-2022- No 500mg Q.5D Take 1 [facility] (KEPPRA) 09-09-[address] 500 MG 00:00: 00:00 (500 mg [facility]ospita tablet 00 :00 total) by l mouth 2 (two) times a day. butalbitaL- 2021-2022- No 1{tbl} Q4H Take 1 M ethodi acetaminoph -11 06-[address] en (BUPAP) 00:00: 00:00 mouth [facility]pi [facility] 50-325 mg 00 :00 every 4 l tablet (four) hours as needed (headaches ). levETIRAcet 2021-2022- No 500mg Q.5D Take 1 [facility] (KEPPRA) 09-[address] 500 MG 00:00: 00:00 (500 mg [facility]ospita tablet 00 :00 total) by l mouth 2 (two) times a day. butalbitaL- 2021-2022- No 1{tbl} Q4H Take 1 M ethodi acetaminoph 09-09-[address] en (BUPAP) 00:00: 00:00 mouth [facility]pi [facility] 50-325 mg 00 :00 every 4 l tablet (four) hours as needed (headaches ). dexamethaso 2021-0 2021- No 2mg Q.5D Take 1 Met hodi ne 09-09 tablet (2 st (DECADRON) 00:00: 04:59 mg [...] 12 (twelve) hours for 7 days. sertraline 0 Yes Take by Univ ers HCl (ZOLOFT 4-21 mouth. ity of ORAL) 13:25: [address] sertraline 2021-0 Yes Take by Univ ers HCl (ZOLOFT 4-21 mouth. ity of ORAL) 13:25: [address] sertraline 2021-0 Yes Take by Univ ers HCl (ZOLOFT 4-21 mouth. ity of ORAL) 13:25: [address] sertraline 2021-0 Yes Take by Univ ers HCl (ZOLOFT 4-21 mouth. ity of ORAL) 13:25: [address] sertraline 2021-0 Yes Take by Univ ers HCl (ZOLOFT 4-21 mouth. ity of ORAL) 13:25: [address] sertraline 2021-0 Yes Take by Univ ers HCl (ZOLOFT 4-21 mouth. ity of ORAL) 13:25: [address] SERTraline 2021-0 Yes 100mg Take 100 Un vale 100 mg 4-21 mg by ity of tablet 13:25: mouth [place] 20 daily. [facility] [place] sertraline 2021-0 Yes Take by Univ ers HCl (ZOLOFT 4-21 mouth. ity of ORAL) 13:25: [address] SERTraline 2021-0 Yes 100mg Take 100 Un vale 100 mg 4-21 mg by ity of tablet 13:25: mouth [place] 20 daily. Medical Branch sertraline 2-0 Yes Take by Univ ers HCl (ZOLOFT 4-21 mouth. ity of ORAL) 13:25: 20 Medical Branch SERTraline 2-0 Yes 100mg Take 100 Un vale 100 mg 4-21 mg by ity of tablet 13:25: mouth [place] 20 daily. Medical Branch sertraline 2021-0 Yes Take by Univ ers HCl (ZOLOFT 4-21 mouth. ity of ORAL) 13:25: 20 Medical Branch SERTraline 2-0 Yes 100mg [...] (ZOLOFT 4-21 mouth. ity of ORAL) 13:25: 20 Medical Branch SERTraline 2-0 Yes 100mg [...] ity of en sod 13:23: needed. [place] (SUMATRIPTA 09 Medical N-NAPROXEN Branch ORAL) propranoloL 2-0 Yes 10mg Take 10 mg [facility] 10 mg 4-21 by mouth 2 ity of tablet 13:23: (two) [place] 09 times Medical daily. Branch sumatriptan 2021-0 Yes Take by Uni vers succ/naprox 4-21 mouth as ity of en sod 13:23: needed. [place] (SUMATRIPTA 09 Medical N-NAPROXEN Branch ORAL) propranoloL 2-0 Yes 10mg Take 10 mg [facility] 10 mg 4-21 by mouth 2 ity of tablet 13:23: (two) [place] 09 times Medical daily. Branch sumatriptan 2021-0 Yes Take by Uni vers succ/naprox 4-21 mouth as ity of en sod 13:23: needed. [place] (SUMATRIPTA 09 Medical N-NAPROXEN Branch ORAL) propranoloL 2022-0 Yes 10mg Take 10 mg [facility] 10 mg 4-21 by mouth 2 ity of tablet 13:23: (two) [place] 09 times Medical daily. Branch sumatriptan 2-0 Yes Take by Uni vers succ/naprox 4-21 mouth as ity of en sod 13:23: needed. [place] (SUMATRIPTA 09 Medical N-NAPROXEN Branch ORAL) propranoloL 2022-0 Yes 10mg Take 10 mg [facility] 10 mg 4-21 by mouth 2 ity of tablet 13:23: (two) [place] 09 times Medical daily. Branch sumatriptan Yes Take by Uni vers succ/naprox 4-21 mouth as ity of en sod 13:23: needed. [place] (SUMATRIPTA 09 Medical N-NAPROXEN Branch ORAL) sumatriptan 0 Yes Take by Uni vers succ/naprox 4-21 mouth as ity of en sod 13:23: needed. [place] (SUMATRIPTA 09 Medical N-NAPROXEN Branch ORAL) sumatriptan 0 Yes Take by Uni vers succ/naprox 4-21 mouth as ity of en sod 13:23: needed. [place] (SUMATRIPTA 09 Medical N-NAPROXEN Branch ORAL) sumatriptan 0 Yes Take by Uni vers succ/naprox 4-21 mouth as ity of en sod 13:23: needed. [place] (SUMATRIPTA 09 Medical N-NAPROXEN Branch ORAL) sumatriptan 0 Yes Take by Uni vers succ/naprox 4-21 mouth as ity of en sod 13:23: needed. [place] (SUMATRIPTA 09 Medical N-NAPROXEN Branch ORAL) sumatriptan 0 Yes Take by Uni vers succ/naprox 4-21 mouth as ity of en sod 13:23: needed. [place] (SUMATRIPTA 09 Medical N-NAPROXEN Branch ORAL) sumatriptan 0 Yes Take by Uni vers succ/naprox 4-21 mouth as ity of en sod 13:23: needed. [place] (SUMATRIPTA 09 Medical N-NAPROXEN Branch ORAL) [place] [...] 2-03 le} MG 00:00: 00 Amoxicillin Amoxicillin 2021-0 2- No 1{table BID Amoxicilli -Pot -Pot 205-14 t} n-Pot Clavulanate Clavulanate 00:00: 00:00 Clavulanat 875-125 MG 875-125 MG 00 :00 e 875-125 MG Pregabalin Pregabalin 2021-0 No Pregabalin 75 MG 75 MG 1-23 [...] pirit e) e) 00:00: - [facility] 00 [facility] Rocephin Rocephin 2-0 No 1g Commo n (Ceftriaxon (Ceftriaxon 1-03 S pirit e) e) 00:00: - [facility] 00 [facility] Rocephin Rocephin 2022-0 No 1g Commo n (Ceftriaxon (Ceftriaxon 1-03 S pirit e) e) 00:00: - [facility] 00 [facility] Rocephin Rocephin 2022-0 No 1g Commo n (Ceftriaxon (Ceftriaxon 1-03 S pirit e) e) 00:00: - [facility] 00 [facility] Rocephin Rocephin 2022-0 No 1g Commo n (Ceftriaxon (Ceftriaxon 1-03 S pirit e) e) 00:00: - [facility] 00 [facility] Rocephin Rocephin 2022-0 No 1g Commo n (Ceftriaxon (Ceftriaxon 1-03 S pirit e) e) 00:00: - [facility] 00 [facility] Rocephin Rocephin 2022-0 No 1g Commo n (Ceftriaxon (Ceftriaxon 1-03 S pirit e) e) 00:00: - [facility] 00 [facility] Rocephin Rocephin 2021-0 No 1g Commo n (Ceftriaxon (Ceftriaxon 1-03 S pirit e) e) 00:00: - [facility] 00 [facility] Rocephin Rocephin 2021-0 No 1g Commo n (Ceftriaxon (Ceftriaxon 1-03 S pirit e) e) 00:00: - [facility] 00 [facility] Rocephin Rocephin 2021-0 No 1g Commo n (Ceftriaxon (Ceftriaxon 1-03 S pirit e) e) 00:00: - [facility] 00 [facility] Rocephin Rocephin 2021-0 No 1g Commo n (Ceftriaxon (Ceftriaxon 1-03 S pirit e) e) 00:00: - [facility] 00 [facility] Rocephin Rocephin 2021-0 No 1g Commo n (Ceftriaxon (Ceftriaxon 1-03 S pirit e) e) 00:00: - [facility] 00 [facility] Rocephin Rocephin 2021-0 No 1g Commo n (Ceftriaxon (Ceftriaxon 1-03 S pirit e) e) 00:00: - [facility] 00 [facility] Rocephin Rocephin 2021-0 No 1g Commo n (Ceftriaxon (Ceftriaxon 1-03 S pirit e) e) 00:00: - [facility] 00 [facility] Rocephin Rocephin 2021-0 No 1g Commo n (Ceftriaxon (Ceftriaxon 1-03 S pirit e) e) 00:00: - [facility] 00 [facility] Rocephin Rocephin 2021-0 No 1g Commo n (Ceftriaxon (Ceftriaxon 1-03 S pirit e) e) 00:00: - [facility] 00 [facility] Rocephin Rocephin 2021-0 No 1g Commo n (Ceftriaxon (Ceftriaxon 1-03 S pirit e) e) 00:00: - [facility] 00 [facility] Sulfamethox Sulfamethox 0 2021- No 1{table BID azole-Trime azole-Trime 1-03 01-13 t} thoprim thoprim 00:00: 00:00 800-160 MG [...] ta 00 :00 l ondansetron 2020-04 Yes [id number] 4mg Take 1 Univers (ZOFRAN 1-08 tablet by ity of ODT) 4 mg 00:00: mouth [place] disintegrat 00 every 8 Medic al ing tablet (eight) Branch hours as needed for Nausea and Vomiting (N/V). meclizine 2020-04 Yes [id number] 25mg Take 1 Un vale 25 mg 1-08 tablet by ity of tablet 00:00: mouth [place] 00 every 6 Medical (six) Branch hours. naproxen 2020-04 Yes [id number] 500mg Take 1 Un vale (NAPROSYN) 1-08 tablet by ity of 500 mg 00:00: mouth 2 [place] tablet 00 (two) Medical times Branch daily with meals. methocarbam 2020-04 Yes [id number] 500mg Take 1 Univers oL 500 mg 1-08 tablet by ity o f tablet 00:00: mouth 4 [place] 00 (four) Medical times Branch daily as needed for Pain (scale 4-6). ondansetron 2020-04 Yes [id number] 4mg Take 1 [facility] (ZOFRAN 1-08 tablet by ity of ODT) 4 mg 00:00: mouth [place] disintegrat 00 every 8 Medic al ing tablet (eight) Branch hours as needed for Nausea and Vomiting (N/V). meclizine 2020-04 Yes [id number] 25mg Take 1 Un vale 25 mg 1-08 tablet by ity of tablet 00:00: mouth [place] 00 every 6 Medical (six) Branch hours. naproxen 2020-04 Yes [id number] 500mg Take 1 Un vale (NAPROSYN) 1-08 tablet by ity of 500 mg 00:00: mouth 2 [place] tablet 00 (two) Medical times Branch daily with meals. methocarbam 2020-04 Yes [id number] 500mg Take 1 Univers oL 500 mg 1-08 tablet by ity o f tablet 00:00: mouth 4 [place] 00 (four) Medical times Branch daily as needed for Pain (scale 4-6). ondansetron 2020-04 Yes [id number] 4mg Take 1 Univers (ZOFRAN 1-08 tablet by ity of ODT) 4 mg 00:00: mouth [place] disintegrat 00 every 8 Medic al ing tablet (eight) Branch hours as needed for Nausea and Vomiting (N/V). meclizine 2020-04 Yes [id number] 25mg Take 1 Un vale 25 mg 1-08 tablet by ity of tablet 00:00: mouth [place] 00 every 6 Medical (six) Branch hours. naproxen 2020-04 Yes [id number] 500mg Take 1 Un vale (NAPROSYN) 1-08 tablet by ity of 500 mg 00:00: mouth 2 [place] tablet 00 (two) Medical times Branch daily with meals. methocarbam 2020-04 Yes [id number] 500mg Take 1 Univers oL 500 mg 1-08 tablet by ity o f tablet 00:00: mouth 4 [place] 00 (four) Medical times Branch daily as needed for Pain (scale 4-6). ondansetron 2020-04 Yes [id number] 4mg Take 1 [facility] (ZOFRAN 1-08 tablet by ity of ODT) 4 mg 00:00: mouth [place] disintegrat 00 every 8 Medic al ing tablet (eight) Branch hours as needed for Nausea and Vomiting (N/V). meclizine 2020-04 Yes [id number] 25mg Take 1 Un vale 25 mg 1-08 tablet by ity of tablet 00:00: mouth [place] 00 every 6 Medical (six) Branch hours. naproxen 2020-04 Yes [id number] 500mg Take 1 Un vale (NAPROSYN) 1-08 tablet by ity of 500 mg 00:00: mouth 2 [place] tablet 00 (two) Medical times Branch daily with meals. methocarbam 2020-04 Yes [id number] 500mg Take 1 Univers oL 500 mg 1-08 tablet by ity o f tablet 00:00: mouth 4 [place] 00 (four) Medical times Branch daily as needed for Pain (scale 4-6). ondansetron 2020-04 Yes [id number] 4mg Take 1 [facility] (ZOFRAN 1-08 tablet by ity of ODT) 4 mg 00:00: mouth [place] disintegrat 00 every 8 Medic al ing tablet (eight) Branch hours as needed for Nausea and Vomiting (N/V). meclizine 2020-04 Yes [id number] 25mg Take 1 Un vale 25 mg 1-08 tablet by ity of tablet 00:00: mouth [place] 00 every 6 Medical (six) Branch hours. naproxen 2020-04 Yes [id number] 500mg Take 1 Un vale (NAPROSYN) 1-08 tablet by ity of 500 mg 00:00: mouth 2 [place] tablet 00 (two) Medical times Branch daily with meals. methocarbam 2020-04 Yes [id number] 500mg Take 1 Univers oL 500 mg 1-08 tablet by ity o f tablet 00:00: mouth 4 [place] 00 (four) Medical times Branch daily as needed for Pain (scale 4-6). ondansetron 2020-04 Yes [id number] 4mg Take 1 [facility] (ZOFRAN 1-08 tablet by ity of ODT) 4 mg 00:00: mouth [place] disintegrat 00 every 8 Medic al ing tablet (eight) Branch hours as needed for Nausea and Vomiting (N/V). meclizine 2020-04 Yes [id number] 25mg Take 1 Un vale 25 mg 1-08 tablet by ity of tablet 00:00: mouth [place] 00 every 6 Medical (six) Branch hours. naproxen 2020-04 Yes [id number] 500mg Take 1 Un vale (NAPROSYN) 1-08 tablet by ity of 500 mg 00:00: mouth 2 [place] tablet 00 (two) Medical times Branch daily with meals. methocarbam 2020-04 Yes [id number] 500mg Take 1 Univers oL 500 mg 1-08 tablet by ity o f tablet 00:00: mouth 4 [place] 00 (four) Medical times Branch daily as needed for Pain (scale 4-6). ondansetron 2020-04 Yes [id number] 4mg Take 1 [facility] (ZOFRAN 1-08 tablet by ity of ODT) 4 mg 00:00: mouth [place] disintegrat 00 every 8 Medic al ing tablet (eight) Branch hours as needed for Nausea and Vomiting (N/V). meclizine 2020-04 Yes [id number] 25mg Take 1 Un vale 25 mg 1-08 tablet by ity of tablet 00:00: mouth [place] 00 every 6 Medical (six) Branch hours. naproxen 2020-04 Yes [id number] 500mg Take 1 Un vale (NAPROSYN) 1-08 tablet by ity of 500 mg 00:00: mouth 2 [place] tablet 00 (two) Medical times Branch daily with meals. methocarbam 2020-04 Yes [id number] 500mg Take 1 Univers oL 500 mg 1-08 tablet by ity o f tablet 00:00: mouth 4 [place] 00 (four) Medical times Branch daily as needed for Pain (scale 4-6). ondansetron 2020-04 Yes [id number] 4mg Take 1 [facility] (ZOFRAN 1-08 tablet by ity of ODT) 4 mg 00:00: mouth [place] disintegrat 00 every 8 Medic al ing tablet (eight) Branch hours as needed for Nausea and Vomiting (N/V). meclizine 2020-04 Yes [id number] 25mg Take 1 Un vale 25 mg 1-08 tablet by ity of tablet 00:00: mouth [place] 00 every 6 Medical (six) Branch hours. naproxen 2020-04 Yes [id number] 500mg Take 1 Un vale (NAPROSYN) 1-08 tablet by ity of 500 mg 00:00: mouth 2 [place] tablet 00 (two) Medical times Branch daily with meals. methocarbam 2020-04 Yes [id number] 500mg Take 1 Univers oL 500 mg 1-08 tablet by ity o f tablet 00:00: mouth 4 [place] 00 (four) Medical times Branch daily as needed for Pain (scale 4-6). ondansetron 2020-04 Yes [id number] 4mg Take 1 [facility] (ZOFRAN 1-08 tablet by ity of ODT) 4 mg 00:00: mouth [place] disintegrat 00 every 8 Medic al ing tablet (eight) Branch hours as needed for Nausea and Vomiting (N/V). meclizine 2020-04 Yes [id number] 25mg Take 1 Un vale 25 mg 1-08 tablet by ity of tablet 00:00: mouth [place] 00 every 6 Medical (six) Branch hours. naproxen 2020-04 Yes [id number] 500mg Take 1 Un vale (NAPROSYN) 1-08 tablet by ity of 500 mg 00:00: mouth 2 [place] tablet 00 (two) Medical times Branch daily with meals. methocarbam 2020-04 Yes [id number] 500mg Take 1 [facility] oL 500 mg 1-08 tablet by ity o f tablet 00:00: mouth 4 [place] 00 (four) Medical times Branch daily as needed for Pain (scale 4-6). ondansetron 2020-04 Yes [id number] 4mg Take 1 [facility] (ZOFRAN 1-08 tablet by ity of ODT) 4 mg 00:00: mouth [place] disintegrat 00 every 8 Medic al ing tablet (eight) Branch hours as needed for Nausea and Vomiting (N/V). meclizine 2020-04 Yes [id number] 25mg Take 1 Un vale 25 mg 1-08 tablet by ity of tablet 00:00: mouth [place] 00 every 6 Medical (six) Branch hours. naproxen 2020-04 Yes [id number] 500mg Take 1 Un vale (NAPROSYN) 1-08 tablet by ity of 500 mg 00:00: mouth 2 [place] tablet 00 (two) Medical times Branch daily with meals. methocarbam 2020-04 Yes [id number] 500mg Take 1 [facility] oL 500 mg 1-08 tablet by ity o f tablet 00:00: mouth 4 [place] 00 (four) Medical times Branch daily as needed for Pain (scale 4-6). ondansetron 2020-04 Yes [id number] 4mg Take 1 [facility] (ZOFRAN 1-08 tablet by ity of ODT) 4 mg 00:00: mouth [place] disintegrat 00 every 8 Medic al ing tablet (eight) Branch hours as needed for Nausea and Vomiting (N/V). meclizine 2020-04 Yes [id number] 25mg Take 1 Un vale 25 mg 1-08 tablet by ity of tablet 00:00: mouth [place] 00 every 6 Medical (six) Branch hours. naproxen 2020-04 Yes [id number] 500mg Take 1 Un vale (NAPROSYN) 1-08 tablet by ity of 500 mg 00:00: mouth 2 [place] tablet 00 (two) Medical times Branch daily with meals. methocarbam 2020-04 Yes [id number] 500mg Take 1 [facility] oL 500 mg 1-08 tablet by ity o f tablet 00:00: mouth 4 [place] 00 (four) Medical times Branch daily as needed for Pain (scale 4-6). ondansetron 2020-04 Yes [id number] 4mg Take 1 [facility] (ZOFRAN 1-08 tablet by ity of ODT) 4 mg 00:00: mouth [place] disintegrat 00 every 8 Medic al ing tablet (eight) Branch hours as needed for Nausea and Vomiting (N/V). meclizine 2020-04 Yes [id number] 25mg Take 1 Un vale 25 mg 1-08 tablet by ity of tablet 00:00: mouth [place] 00 every 6 Medical (six) Branch hours. naproxen 2020-04 Yes [id number] 500mg Take 1 [facility] (NAPROSYN) 1-08 tablet by [facility] 500 mg 00:00: mouth 2 [place] tablet 00 (two) Medical times Branch daily with meals. methocarbam 2020-04 Yes [id number] 500mg Take 1 [facility] 500 mg 1-08 tablet by [facility] o f tablet 00:00: mouth 4 [place] 00 (four) Medical times Branch daily as needed for Pain (scale 4-6). ondansetron 2020-04 Yes [id number] 4mg Take 1 [facility] (ZOFRAN 1-08 tablet by [facility] of ODT) 4 mg 00:00: mouth [place] disintegrat 00 every 8 Medic al ing tablet (eight) Branch hours as needed for Nausea and Vomiting (N/V). meclizine 2020-04 Yes [id number] 25mg Take 1 [facility] 25 mg 1-08 tablet by [facility] tablet 00:00: mouth [place] 00 every 6 Medical (six) Branch hours. naproxen 2020-04 Yes [id number] 500mg Take 1 [facility] (NAPROSYN) 1-08 tablet by [facility] 500 mg 00:00: mouth 2 [place] tablet 00 (two) Medical times Branch daily with meals. methocarbam 2020-04 Yes [id number] 500mg Take 1 [facility] o[facility] 500 mg 1-08 tablet by [facility] o f tablet 00:00: mouth 4 [place] 00 (four) Medical times Branch daily as needed for Pain (scale 4-6). ondansetron 2020-04 Yes [id number] 4mg Take 1 [facility] (ZOFRAN 1-08 tablet by [facility] of ODT) 4 mg 00:00: mouth [place] disintegrat 00 every 8 Medic al ing tablet (eight) Branch hours as needed for Nausea and Vomiting (N/V). meclizine 2020-04 Yes [id number] 25mg Take 1 [facility] 25 mg 1-08 tablet by [facility] tablet 00:00: mouth [place] 00 every 6 Medical (six) Branch hours. naproxen 2020-04 Yes [id number] 500mg Take 1 [facility] (NAPROSYN) 1-08 tablet by [facility] 500 mg 00:00: mouth 2 [place] tablet 00 (two) Medical times Branch daily with meals. methocarbam 2020-04 Yes [id number] 500mg Take 1 [facility] o[facility] 500 mg 1-08 tablet by [facility] o f tablet 00:00: mouth 4 [place] 00 (four) Medical times Branch daily as needed for Pain (scale 4-6). ondansetron 2020-04 Yes [id number] 4mg Take 1 [facility] (ZOFRAN 1-08 tablet by [facility] of ODT) 4 mg 00:00: mouth [place] disintegrat 00 every 8 Medic al ing tablet (eight) Branch hours as needed for Nausea and Vomiting (N/V). meclizine 2020-04 Yes [id number] 25mg Take 1 [facility] 25 mg 1-08 tablet by [facility] tablet 00:00: mouth [place] 00 every 6 Medical (six) Branch hours. naproxen 2020-04 Yes [id number] 500mg Take 1 [facility] (NAPROSYN) 1-08 tablet by [facility] 500 mg 00:00: mouth 2 [place] tablet 00 (two) Medical times Branch daily with meals. methocarbam 2020-04 Yes [id number] 500mg Take 1 [facility] o[facility] 500 mg 1-08 tablet by [facility] o f tablet 00:00: mouth 4 [place] 00 (four) Medical times Branch daily as needed for Pain (scale 4-6). ondansetron 2020-04 Yes [id number] 4mg Take 1 [facility] (ZOFRAN 1-08 tablet by [facility] of ODT) 4 mg 00:00: mouth [place] disintegrat 00 every 8 Medic al ing tablet (eight) Branch hours as needed for Nausea and Vomiting (N/V). meclizine 2020-04 Yes [id number] 25mg Take 1 [facility] 25 mg 1-08 tablet by [facility] tablet 00:00: mouth [place] 00 every 6 Medical (six) Branch hours. naproxen 2020-04 Yes [id number] 500mg Take 1 [facility] (NAPROSYN) 1-08 tablet by [facility] 500 mg 00:00: mouth 2 [place] tablet 00 (two) Medical times Branch daily with meals. methocarbam 2020-04 Yes [id number] 500mg Take 1 [facility] o[facility] 500 mg 1-08 tablet by [facility] o f tablet 00:00: mouth 4 [place] 00 (four) Medical times Branch daily as needed for Pain (scale 4-6). ondansetron 2020-04 Yes [id number] 4mg Take 1 [facility] (ZOFRAN 1-08 tablet by [facility] of ODT) 4 mg 00:00: mouth [place] disintegrat 00 every 8 Medic al ing tablet (eight) Branch hours as needed for Nausea and Vomiting (N/V). meclizine 2020-04 Yes [id number] 25mg Take 1 [facility] 25 mg 1-08 tablet by [facility] tablet 00:00: mouth [place] 00 every 6 Medical (six) Branch hours. naproxen 2020-04 Yes [id number] 500mg Take 1 [facility] (NAPROSYN) 1-08 tablet by [facility] 500 mg 00:00: mouth 2 [place] tablet 00 (two) Medical times Branch daily with meals. methocarbam 2020-04 Yes [id number] 500mg Take 1 [facility] o[facility] 500 mg 1-08 tablet by [facility] o f tablet 00:00: mouth 4 [place] 00 (four) Medical times Branch daily as needed for Pain (scale 4-6). ondansetron 2020-04 Yes [id number] 4mg Take 1 [facility] (ZOFRAN 1-08 tablet by [facility] of ODT) 4 mg 00:00: mouth [place] disintegrat 00 every 8 Medic al ing tablet (eight) Branch hours as needed for Nausea and Vomiting (N/V). meclizine 2020-04 Yes [id number] 25mg Take 1 [facility] 25 mg 1-08 tablet by [facility] tablet 00:00: mouth [place] 00 every 6 Medical (six) Branch hours. naproxen 2020-04 Yes [id number] 500mg Take 1 [facility] (NAPROSYN) 1-08 tablet by [facility] 500 mg 00:00: mouth 2 [place] tablet 00 (two) Medical times Branch daily with meals. methocarbam 2020-04 Yes [id number] 500mg Take 1 [facility] o[facility] 500 mg 1-08 tablet by [facility] o f tablet 00:00: mouth 4 [place] 00 (four) Medical times Branch daily as needed for Pain (scale 4-6). ondansetron 2020-04 Yes [id number] 4mg Take 1 [facility] (ZOFRAN 1-08 tablet by [facility] of ODT) 4 mg 00:00: mouth [place] disintegrat 00 every 8 Medic al ing tablet (eight) Branch hours as needed for Nausea and Vomiting (N/V). meclizine 2020-04 Yes [id number] 25mg Take 1 [facility] 25 mg 1-08 tablet by [facility] of tablet 00:00: mouth [place] 00 every 6 Medical (six) Branch hours. naproxen 2020-04 Yes [id number] 500mg Take 1 [facility] (NAPROSYN) 1-08 tablet by [facility] 500 mg 00:00: mouth 2 [place] tablet 00 (two) Medical times Branch daily with meals. methocarbam 2020-04 Yes [id number] 500mg Take 1 [facility] o[facility] 500 mg 1-08 tablet by [facility] o f tablet 00:00: mouth 4 [place] 00 (four) Medical times Branch daily as needed for Pain (scale 4-6). ondansetron 2020-04 Yes [id number] 4mg Take 1 [facility] (ZOFRAN 1-08 tablet by [facility] of ODT) 4 mg 00:00: mouth [place] disintegrat 00 every 8 Medic al ing tablet (eight) Branch hours as needed for Nausea and Vomiting (N/V). meclizine 2020-04 Yes [id number] 25mg Take 1 [facility] 25 mg 1-08 tablet by [facility] tablet 00:00: mouth [place] 00 every 6 Medical (six) Branch hours. naproxen 2020-04 Yes [id number] 500mg Take 1 [facility] (NAPROSYN) 1-08 tablet by [facility] 500 mg 00:00: mouth 2 [place] tablet 00 (two) Medical times Branch daily with meals. methocarbam 2020-04 Yes [id number] 500mg Take 1 [facility] o[facility] 500 mg 1-08 tablet by [facility] o f tablet 00:00: mouth 4 [place] 00 (four) Medical times Branch daily as needed for Pain (scale 4-6). ondansetron 2020-04 Yes [id number] 4mg Take 1 [facility] (ZOFRAN 1-08 tablet by [facility] of ODT) 4 mg 00:00: mouth [place] disintegrat 00 every 8 Medic al ing tablet (eight) Branch hours as needed for Nausea and Vomiting (N/V). meclizine 2020-04 Yes [id number] 25mg Take 1 [facility] 25 mg 1-08 tablet by [facility] tablet 00:00: mouth [place] 00 every 6 Medical (six) Branch hours. naproxen 2020-04 Yes [id number] 500mg Take 1 [facility] (NAPROSYN) 1-08 tablet by [facility] 500 mg 00:00: mouth 2 [place] tablet 00 (two) Medical times Branch daily with meals. methocarbam 2020-04 Yes [id number] 500mg Take 1 [facility] o[facility] 500 mg 1-08 tablet by [facility] o f tablet 00:00: mouth 4 [place] 00 (four) Medical times Branch daily as needed for Pain (scale 4-6). ondansetron 2020-04 Yes [id number] 4mg Take 1 [facility] (ZOFRAN 1-08 tablet by [facility] of ODT) 4 mg 00:00: mouth [place] disintegrat 00 every 8 Medic al ing tablet (eight) Branch hours as needed for Nausea and Vomiting (N/V). meclizine 2020-04 Yes [id number] 25mg Take 1 [facility] 25 mg 1-08 tablet by [facility] tablet 00:00: mouth [place] 00 every 6 Medical (six) Branch hours. naproxen 2020-04 Yes [id number] 500mg Take 1 [facility] (NAPROSYN) 1-08 tablet by [facility] 500 mg 00:00: mouth 2 [place] tablet 00 (two) Medical times Branch daily with meals. methocarbam 2020-04 Yes [id number] 500mg Take 1 [facility] o[facility] 500 mg 1-08 tablet by [facility] o f tablet 00:00: mouth 4 [place] 00 (four) Medical times Branch daily as needed for Pain (scale 4-6). ondansetron 2020-04 Yes [id number] 4mg Take 1 [facility] (ZOFRAN 1-08 tablet by [facility] of ODT) 4 mg 00:00: mouth [place] disintegrat 00 every 8 Medic al ing tablet (eight) Branch hours as needed for Nausea and Vomiting (N/V). meclizine 2020-04 Yes [id number] 25mg Take 1 [facility] 25 mg 1-08 tablet by [facility] tablet 00:00: mouth [place] 00 every 6 Medical (six) Branch hours. naproxen 2020-04 Yes [id number] 500mg Take 1 [facility] (NAPROSYN) 1-08 tablet by [facility] 500 mg 00:00: mouth 2 [place] tablet 00 (two) Medical times Branch daily with meals. methocarbam 2020-04 Yes [id number] 500mg Take 1 [facility] o[facility] 500 mg 1-08 tablet by [facility] o f tablet 00:00: mouth 4 [place] 00 (four) Medical times Branch daily as needed for Pain (scale 4-6). ondansetron 2020-04 Yes [id number] 4mg Take 1 [facility] (ZOFRAN 1-08 tablet by [facility] of ODT) 4 mg 00:00: mouth [place] disintegrat 00 every 8 Medic al ing tablet (eight) Branch hours as needed for Nausea and Vomiting (N/V). meclizine 2020-04 Yes [id number] 25mg Take 1 [facility] 25 mg 1-08 tablet by [facility] of tablet 00:00: mouth [place] 00 every 6 Medical (six) Branch hours. naproxen 2020-04 Yes [id number] 500mg Take 1 [facility] (NAPROSYN) 1-08 tablet by [facility] 500 mg 00:00: mouth 2 [place] tablet 00 (two) Medical times Branch daily with meals. methocarbam 2020-04 Yes [id number] 500mg Take 1 [facility] o[facility] 500 mg 1-08 tablet by [facility] o f tablet 00:00: mouth 4 [place] 00 (four) Medical times Branch daily as needed for Pain (scale 4-6). ondansetron 2020-04 Yes [id number] 4mg Take 1 [facility] (ZOFRAN 1-08 tablet by [facility] of ODT) 4 mg 00:00: mouth [place] disintegrat 00 every 8 Medic al ing tablet (eight) Branch hours as needed for Nausea and Vomiting (N/V). meclizine 2020-04 Yes [id number] 25mg Take 1 [facility] 25 mg 1-08 tablet by [facility] tablet 00:00: mouth [place] 00 every 6 Medical (six) Branch hours. naproxen 2020-04 Yes [id number] 500mg Take 1 [facility] (NAPROSYN) 1-08 tablet by [facility] of 500 mg 00:00: mouth 2 [place] tablet 00 (two) Medical times Branch daily with meals. methocarbam 2020-04 Yes [id number] 500mg Take 1 [facility] o[facility] 500 mg 1-08 tablet by [facility] o f tablet 00:00: mouth 4 [place] 00 (four) Medical times Branch daily as needed for Pain (scale 4-6). ondansetron 2020-04 Yes [id number] 4mg Take 1 [facility] (ZOFRAN 1-08 tablet by [facility] of ODT) 4 mg 00:00: mouth [place] disintegrat 00 every 8 Medic al ing tablet (eight) Branch hours as needed for Nausea and Vomiting (N/V). meclizine 2020-04 Yes [id number] 25mg Take 1 [facility] 25 mg 1-08 tablet by [facility] of tablet 00:00: mouth [place] 00 every 6 Medical (six) Branch hours. naproxen 2020-04 Yes [id number] 500mg Take 1 [facility] (NAPROSYN) 1-08 tablet by [facility] 500 mg 00:00: mouth 2 [place] tablet 00 (two) Medical times Branch daily with meals. methocarbam 2020-04 Yes [id number] 500mg Take 1 [facility] o[facility] 500 mg 1-08 tablet by [facility] o f tablet 00:00: mouth 4 [place] 00 (four) Medical times Branch daily as needed for Pain (scale 4-6). ondansetron 2020-04 Yes [id number] 4mg Take 1 [facility] (ZOFRAN 1-08 tablet by [facility] of ODT) 4 mg 00:00: mouth [place] disintegrat 00 every 8 Medic al ing tablet (eight) Branch hours as needed for Nausea and Vomiting (N/V). meclizine 2020-04 Yes [id number] 25mg Take 1 [facility] 25 mg 1-08 tablet by [facility] of tablet 00:00: mouth [place] 00 every 6 Medical (six) Branch hours. naproxen 2020-04 Yes [id number] 500mg Take 1 [facility] (NAPROSYN) 1-08 tablet by [facility] of 500 mg 00:00: mouth 2 [place] tablet 00 (two) Medical times Branch daily with meals. methocarbam 2020-04 Yes [id number] 500mg Take 1 [facility] o[facility] 500 mg 1-08 tablet by [facility] o f tablet 00:00: mouth 4 [place] 00 (four) Medical times Branch daily as needed for Pain (scale 4-6). ondansetron 2020-04 Yes [id number] 4mg Take 1 [facility] (ZOFRAN 1-08 tablet by [facility] of ODT) 4 mg 00:00: mouth [place] disintegrat 00 every 8 Medic al ing tablet (eight) Branch hours as needed for Nausea and Vomiting (N/V). meclizine 2020-04 Yes [id number] 25mg Take 1 [facility] 25 mg 1-08 tablet by [facility] of tablet 00:00: mouth [place] 00 every 6 Medical (six) Branch hours. naproxen 2020-04 Yes [id number] 500mg Take 1 [facility] (NAPROSYN) 1-08 tablet by [facility] of 500 mg 00:00: mouth 2 [place] tablet 00 (two) Medical times Branch daily with meals. methocarbam 2020-04 Yes [id number] 500mg Take 1 [facility] o[facility] 500 mg 1-08 tablet by [facility] o f tablet 00:00: mouth 4 [place] 00 (four) Medical times Branch daily as needed for Pain (scale 4-6). ondansetron 2020-04 Yes [id number] 4mg Take 1 [facility] (ZOFRAN 1-08 tablet by [facility] of ODT) 4 mg 00:00: mouth [place] disintegrat 00 every 8 Medic al ing tablet (eight) Branch hours as needed for Nausea and Vomiting (N/V). meclizine 2020-04 Yes [id number] 25mg Take 1 [facility] 25 mg 1-08 tablet by [facility] of tablet 00:00: mouth [place] 00 every 6 Medical (six) Branch hours. naproxen 2020-04 Yes [id number] 500mg Take 1 [facility] (NAPROSYN) 1-08 tablet by [facility] of 500 mg 00:00: mouth 2 [place] tablet 00 (two) Medical times Branch daily with meals. methocarbam 2020-04 Yes [id number] 500mg Take 1 [facility] o[facility] 500 mg 1-08 tablet by [facility] o f tablet 00:00: mouth 4 [place] 00 (four) Medical times Branch daily as needed for Pain (scale 4-6). ondansetron 2020-04 Yes [id number] 4mg Take 1 [facility] (ZOFRAN 1-08 tablet by [facility] of ODT) 4 mg 00:00: mouth [place] disintegrat 00 every 8 Medic al ing tablet (eight) Branch hours as needed for Nausea and Vomiting (N/V). meclizine 2020-04 Yes [id number] 25mg Take 1 [facility] 25 mg 1-08 tablet by [facility] of tablet 00:00: mouth [place] 00 every 6 Medical (six) Branch hours. naproxen 2020-04 Yes [id number] 500mg Take 1 [facility] (NAPROSYN) 1-08 tablet by [facility] of 500 mg 00:00: mouth 2 [place] tablet 00 (two) Medical times Branch daily with meals. methocarbam 2020-04 Yes [id number] 500mg Take 1 [facility] o[facility] 500 mg 1-08 tablet by [facility] o f tablet 00:00: mouth 4 [place] 00 (four) Medical times Branch daily as needed for Pain (scale 4-6). ondansetron 2020-04 Yes [id number] 4mg Take 1 [facility] (ZOFRAN 1-08 tablet by [facility] of ODT) 4 mg 00:00: mouth [place] disintegrat 00 every 8 Medic al ing tablet (eight) Branch hours as needed for Nausea and Vomiting (N/V). meclizine 2020-04 Yes [id number] 25mg Take 1 [facility] 25 mg 1-08 tablet by [facility] of tablet 00:00: mouth [place] 00 every 6 Medical (six) Branch hours. naproxen 2020-04 Yes [id number] 500mg Take 1 [facility] (NAPROSYN) 1-08 tablet by [facility] of 500 mg 00:00: mouth 2 [place] tablet 00 (two) Medical times Branch daily with meals. methocarbam 2020-04 Yes [id number] 500mg Take 1 [facility] o[facility] 500 mg 1-08 tablet by [facility] o f tablet 00:00: mouth 4 [place] 00 (four) Medical times Branch daily as needed for Pain (scale 4-6). ondansetron 2020-04 Yes [id number] 4mg Take 1 [facility] (ZOFRAN 1-08 tablet by [facility] of ODT) 4 mg 00:00: mouth [place] disintegrat 00 every 8 Medic al ing tablet (eight) Branch hours as needed for Nausea and Vomiting (N/V). meclizine 2020-04 Yes [id number] 25mg Take 1 [facility] 25 mg 1-08 tablet by [facility] of tablet 00:00: mouth [place] 00 every 6 Medical (six) Branch hours. naproxen 2020-04 Yes [id number] 500mg Take 1 [facility] (NAPROSYN) 1-08 tablet by [facility] of 500 mg 00:00: mouth 2 [place] tablet 00 (two) Medical times Branch daily with meals. methocarbam 2020-04 Yes [id number] 500mg Take 1 [facility] o[facility] 500 mg 1-08 tablet by [facility] o f tablet 00:00: mouth 4 [place] 00 (four) Medical times Branch daily as needed for Pain (scale 4-6). ondansetron 2020-04 Yes [id number] 4mg Take 1 [facility] (ZOFRAN 1-08 tablet by [facility] of ODT) 4 mg 00:00: mouth [place] disintegrat 00 every 8 Medic al ing tablet (eight) Branch hours as needed for Nausea and Vomiting (N/V). meclizine 2020-04 Yes [id number] 25mg Take 1 [facility] 25 mg 1-08 tablet by [facility] of tablet 00:00: mouth [place] 00 every 6 Medical (six) Branch hours. naproxen 2020-04 Yes [id number] 500mg Take 1 [facility] (NAPROSYN) 1-08 tablet by [facility] of 500 mg 00:00: mouth 2 [place] tablet 00 (two) Medical times Branch daily with meals. methocarbam 2020-04 Yes [id number] 500mg Take 1 [facility] o[facility] 500 mg 1-08 tablet by [facility] o f tablet 00:00: mouth 4 [place] 00 (four) Medical times Branch daily as needed for Pain (scale 4-6). ondansetron 2020-04 Yes [id number] 4mg Take 1 [facility] (ZOFRAN 1-08 tablet by [facility] of ODT) 4 mg 00:00: mouth [place] disintegrat 00 every 8 Medic al ing tablet (eight) Branch hours as needed for Nausea and Vomiting (N/V). meclizine 2020-04 Yes [id number] 25mg Take 1 [facility] 25 mg 1-08 tablet by [facility] of tablet 00:00: mouth [place] 00 every 6 Medical (six) Branch hours. naproxen 2020-04 Yes [id number] 500mg Take 1 [facility] (NAPROSYN) 1-08 tablet by [facility] of 500 mg 00:00: mouth 2 [place] tablet 00 (two) Medical times Branch daily with meals. methocarbam 2020-04 Yes [id number] 500mg Take 1 [facility] o[facility] 500 mg 1-08 tablet by [facility] o f tablet 00:00: mouth 4 [place] 00 (four) Medical times Branch daily as needed for Pain (scale 4-6). ondansetron 2020-04 Yes [id number] 4mg Take 1 [facility] (ZOFRAN 1-08 tablet by [facility] of ODT) 4 mg 00:00: mouth [place] disintegrat 00 every 8 Medic al ing tablet (eight) Branch hours as needed for Nausea and Vomiting (N/V). meclizine 2020-04 Yes [id number] 25mg Take 1 [facility] 25 mg 1-08 tablet by [facility] of tablet 00:00: mouth [place] 00 every 6 Medical (six) Branch hours. naproxen 2020-04 Yes [id number] 500mg Take 1 [facility] (NAPROSYN) 1-08 tablet by [facility] of 500 mg 00:00: mouth 2 [place] tablet 00 (two) Medical times Branch daily with meals. methocarbam 2020-04 Yes [id number] 500mg Take 1 [facility] o[facility] 500 mg 1-08 tablet by [facility] o f tablet 00:00: mouth 4 [place] 00 (four) Medical times Branch daily as needed for Pain (scale 4-6). ondansetron 2020-04 Yes [id number] 4mg Take 1 [facility] (ZOFRAN 1-08 tablet by [facility] of ODT) 4 mg 00:00: mouth [place] disintegrat 00 every 8 Medic al ing tablet (eight) Branch hours as needed for Nausea and Vomiting (N/V). meclizine 2020-04 Yes [id number] 25mg Take 1 [facility] 25 mg 1-08 tablet by [facility] of tablet 00:00: mouth [place] 00 every 6 Medical (six) Branch hours. naproxen 2020-04 Yes [id number] 500mg Take 1 [facility] (NAPROSYN) 1-08 tablet by [facility] of 500 mg 00:00: mouth 2 [place] tablet 00 (two) Medical times Branch daily with meals. methocarbam 2020-04 Yes [id number] 500mg Take 1 [facility] o[facility] 500 mg 1-08 tablet by [facility] o f tablet 00:00: mouth 4 [place] 00 (four) Medical times Branch daily as needed for Pain (scale 4-6). ondansetron 2020-04 Yes [id number] 4mg Take 1 [facility] (ZOFRAN 1-08 tablet by [facility] of ODT) 4 mg 00:00: mouth [place] disintegrat 00 every 8 Medic al ing tablet (eight) Branch hours as needed for Nausea and Vomiting (N/V). meclizine 2020-04 Yes [id number] 25mg Take 1 [facility] 25 mg 1-08 tablet by [facility] of tablet 00:00: mouth [place] 00 every 6 Medical (six) Branch hours. naproxen 2020-04 Yes [id number] 500mg Take 1 [facility] (NAPROSYN) 1-08 tablet by [facility] of 500 mg 00:00: mouth 2 [place] tablet 00 (two) Medical times Branch daily with meals. methocarbam 2020-04 Yes [id number] 500mg Take 1 [facility] o[facility] 500 mg 1-08 tablet by [facility] o f tablet 00:00: mouth 4 [place] 00 (four) Medical times Branch daily as needed for Pain (scale 4-6). ondansetron 2020-04 Yes [id number] 4mg Take 1 [facility] (ZOFRAN 1-08 tablet by [facility] of ODT) 4 mg 00:00: mouth [place] disintegrat 00 every 8 Medic al ing tablet (eight) Branch hours as needed for Nausea and Vomiting (N/V). meclizine 2020-04 Yes [id number] 25mg Take 1 [facility] 25 mg 1-08 tablet by [facility] of tablet 00:00: mouth [place] 00 every 6 Medical (six) Branch hours. naproxen 2020-04 Yes [id number] 500mg Take 1 [facility] (NAPROSYN) 1-08 tablet by [facility] of 500 mg 00:00: mouth 2 [place] tablet 00 (two) Medical times Branch daily with meals. methocarbam 2020-04 Yes [id number] 500mg Take 1 [facility] o[facility] 500 mg 1-08 tablet by [facility] o f tablet 00:00: mouth 4 [place] 00 (four) Medical times Branch daily as needed for Pain (scale 4-6). ondansetron 2020-04 Yes [id number] 4mg Take 1 [facility] (ZOFRAN 1-08 tablet by [facility] of ODT) 4 mg 00:00: mouth [place] disintegrat 00 every 8 Medic al ing tablet (eight) Branch hours as needed for Nausea and Vomiting (N/V). meclizine 2020-04 Yes [id number] 25mg Take 1 [facility] 25 mg 1-08 tablet by [facility] tablet 00:00: mouth [place] 00 every 6 Medical (six) Branch hours. naproxen 2020-04 Yes [id number] 500mg Take 1 [facility] (NAPROSYN) 1-08 tablet by [facility] of 500 mg 00:00: mouth 2 [place] tablet 00 (two) Medical times Branch daily with meals. methocarbam 2020-04 Yes [id number] 500mg Take 1 [facility] o[facility] 500 mg 1-08 tablet by [facility] o f tablet 00:00: mouth 4 [place] 00 (four) Medical times Branch daily as needed for Pain (scale 4-6). ondansetron 2020-04 Yes [id number] 4mg Take 1 [facility] (ZOFRAN 1-08 tablet by ity of ODT) 4 mg 00:00: mouth [place] disintegrat 00 every 8 Medic al ing tablet (eight) Branch hours as needed for Nausea and Vomiting (N/V). meclizine 2020-04 Yes [id number] 25mg Take 1 [facility] 25 mg 1-08 tablet by [facility] tablet 00:00: mouth [place] 00 every 6 Medical (six) Branch hours. naproxen 2020-04 Yes [id number] 500mg Take 1 [facility] (NAPROSYN) 1-08 tablet by [facility] of 500 mg 00:00: mouth 2 [place] tablet 00 (two) Medical times Branch daily with meals. methocarbam 2020-04 Yes [id number] 500mg Take 1 [facility] o[facility] 500 mg 1-08 tablet by [facility] o f tablet 00:00: mouth 4 [place] 00 (four) Medical times Branch daily as needed for Pain (scale 4-6). ondansetron 2020-04 Yes [id number] 4mg Take 1 [facility] (ZOFRAN 1-08 tablet by [facility]y of ODT) 4 mg 00:00: mouth [place] disintegrat 00 every 8 Medic al ing tablet (eight) Branch hours as needed for Nausea and Vomiting (N/V). meclizine 2020-04 Yes [id number] 25mg Take 1 [facility] 25 mg 1-08 tablet by [facility] of tablet 00:00: mouth [place] 00 every 6 Medical (six) Branch hours. naproxen 2020-04 Yes [id number] 500mg Take 1 [facility] (NAPROSYN) 1-08 tablet by [facility] of 500 mg 00:00: mouth 2 [place] tablet 00 (two) Medical times Branch daily with meals. methocarbam 2020-04 Yes [id number] 500mg Take 1 [facility] oL 500 mg 1-08 tablet by [facility] o f tablet 00:00: mouth 4 [place] 00 (four) Medical times Branch daily as needed for Pain (scale 4-6). ondansetron 2020-04 Yes [id number] 4mg Take 1 [facility] (ZOFRAN 1-08 tablet by ity of ODT) 4 mg 00:00: mouth [place] disintegrat 00 every 8 Medic al ing tablet (eight) Branch hours as needed for Nausea and Vomiting (N/V). meclizine 2020-04 Yes [id number] 25mg Take 1 [facility] 25 mg 1-08 tablet by [facility] of tablet 00:00: mouth [place] 00 every 6 Medical (six) Branch hours. naproxen 2020-04 Yes [id number] 500mg Take 1 [facility] (NAPROSYN) 1-08 tablet by [facility] of 500 mg 00:00: mouth 2 [place] tablet 00 (two) Medical times Branch daily with meals. methocarbam 2020-04 Yes [id number] 500mg Take 1 [facility] oL 500 mg 1-08 tablet by [facility] o f tablet 00:00: mouth 4 [place] 00 (four) Medical times Branch daily as needed for Pain (scale 4-6). HYDROCHLORO 2020-04 Yes 10mg Take 10 mg [facility] THIAZIDE 0-26 by mouth ity of ORAL 08:48: daily. [address] pregabalin 2020-04 Yes Take by [facility] (LYRICA 0-26 mouth ity of ORAL) 08:48: daily. [address] montelukast 2020-04 Yes 10mg Take 10 mg [facility] 10 mg 0-26 by mouth ity of tablet 08:48: daily. [address] HYDROCHLORO 2020-04 Yes 10mg Take 10 mg [facility] THIAZIDE 0-26 by mouth ity of ORAL 08:48: daily. [address] pregabalin 2020-04 Yes Take by [facility] (LYRICA 0-26 mouth ity of ORAL) 08:48: daily. [address] montelukast 2020-04 Yes 10mg Take 10 mg [facility] 10 mg 0-26 by mouth [facility]y of tablet 08:48: daily. [address] HYDROCHLORO 2020-04 Yes 10mg Take 10 mg [facility] THIAZIDE 0-26 by mouth ity of ORAL 08:48: daily. [address] pregabalin 2020-04 Yes Take by [facility] (LYRICA 0-26 mouth ity of ORAL) 08:48: daily. [address] montelukast 2020-04 Yes 10mg Take 10 mg [facility] 10 mg 0-26 by mouth [facility]y of tablet 08:48: daily. [address] HYDROCHLORO 2020-04 Yes 10mg Take 10 mg [facility] THIAZIDE 0-26 by mouth ity of ORAL 08:48: daily. [address] pregabalin 2020-04 Yes Take by [facility] (LYRICA 0-26 mouth ity of ORAL) 08:48: daily. [address] montelukast 2020-04 Yes 10mg Take 10 mg [facility] 10 mg 0-26 by mouth [facility]y of tablet 08:48: daily. [address] HYDROCHLORO 2020-04 Yes 10mg Take 10 mg [facility] THIAZIDE 0-26 by mouth ity of ORAL 08:48: daily. [address] pregabalin 2020-04 Yes Take by [facility] (LYRICA 0-26 mouth ity of ORAL) 08:48: daily. [address] montelukast 2020-04 Yes 10mg Take 10 mg [facility] 10 mg 0-26 by mouth [facility]y of tablet 08:48: daily. [address] HYDROCHLORO 2020-04 Yes 10mg Take 10 mg [facility] THIAZIDE 0-26 by mouth ity of ORAL 08:48: daily. [address] pregabalin 2020-04 Yes Take by [facility] (LYRICA 0-26 mouth ity of ORAL) 08:48: daily. [address] montelukast 2020-04 Yes 10mg Take 10 mg [facility] 10 mg 0-26 by mouth [facility]y of tablet 08:48: daily. [address] HYDROCHLORO 2020-04 Yes 10mg Take 10 mg [facility] THIAZIDE 0-26 by mouth ity of ORAL 08:48: daily. [address] pregabalin 2020-04 Yes Take by [facility] (LYRICA 0-26 mouth ity of ORAL) 08:48: daily. [address] montelukast 2020-04 Yes 10mg Take 10 mg [facility] 10 mg 0-26 by mouth [facility]y of tablet 08:48: daily. [address] HYDROCHLORO 2020-04 Yes 10mg Take 10 mg Univers THIAZIDE 0-26 by mouth ity of ORAL 08:48: daily. [address] pregabalin 2020-04 Yes Take by Univ ers (LYRICA 0-26 mouth ity of ORAL) 08:48: daily. [address] montelukast 2020-04 Yes 10mg Take 10 mg Univers 10 mg 0-26 by mouth ity of tablet 08:48: daily. [address] HYDROCHLORO 2020-04 Yes 10mg Take 10 mg Univers THIAZIDE 0-26 by mouth ity of ORAL 08:48: daily. [address] pregabalin 2020-04 Yes Take by Univ ers (LYRICA 0-26 mouth ity of ORAL) 08:48: daily. [address] montelukast 2020-04 Yes 10mg Take 10 mg Univers 10 mg 0-26 by mouth ity of tablet 08:48: daily. [address] HYDROCHLORO 2020-04 Yes 10mg Take 10 mg Univers THIAZIDE 0-26 by mouth ity of ORAL 08:48: daily. [address] pregabalin 2020-04 Yes Take by Univ ers (LYRICA 0-26 mouth ity of ORAL) 08:48: daily. [address] montelukast 2020-04 Yes 10mg Take 10 mg Univers 10 mg 0-26 by mouth ity of tablet 08:48: daily. [address] HYDROCHLORO 2020-04 Yes 10mg Take 10 mg Univers THIAZIDE 0-26 by mouth ity of ORAL 08:48: daily. [address] pregabalin 2020-04 Yes Take by Univ ers (LYRICA 0-26 mouth ity of ORAL) 08:48: daily. [address] montelukast 2020-04 Yes 10mg Take 10 mg Univers 10 mg 0-26 by mouth ity of tablet 08:48: daily. [address] HYDROCHLORO 2020-04 Yes 10mg Take 10 mg Univers THIAZIDE 0-26 by mouth ity of ORAL 08:48: daily. [address] pregabalin 2020-04 Yes Take by Univ ers (LYRICA 0-26 mouth ity of ORAL) 08:48: daily. [address] montelukast 2020-04 Yes 10mg Take 10 mg Univers 10 mg 0-26 by mouth ity of tablet 08:48: daily. [address] HYDROCHLORO 2020-04 Yes 10mg Take 10 mg Univers THIAZIDE 0-26 by mouth ity of ORAL 08:48: daily. [address] pregabalin 2020-04 Yes Take by Univ ers (LYRICA 0-26 mouth ity of ORAL) 08:48: daily. [address] montelukast 2020-04 Yes 10mg Take 10 mg Univers 10 mg 0-26 by mouth ity of tablet 08:48: daily. [address] HYDROCHLORO 2020-04 Yes 10mg Take 10 mg Univers THIAZIDE 0-26 by mouth ity of ORAL 08:48: daily. [address] pregabalin 2020-04 Yes Take by Univ ers (LYRICA 0-26 mouth ity of ORAL) 08:48: daily. [address] montelukast 2020-04 Yes 10mg Take 10 mg Univers 10 mg 0-26 by mouth ity of tablet 08:48: daily. [address] HYDROCHLORO 2020-04 Yes 10mg Take 10 mg Univers THIAZIDE 0-26 by mouth ity of ORAL 08:48: daily. [address] pregabalin 2020-04 Yes Take by Univ ers (LYRICA 0-26 mouth ity of ORAL) 08:48: daily. [address] montelukast 2020-04 Yes 10mg Take 10 mg Univers 10 mg 0-26 by mouth ity of tablet 08:48: daily. [address] HYDROCHLORO 2020-04 Yes 10mg Take 10 mg Univers THIAZIDE 0-26 by mouth ity of ORAL 08:48: daily. [address] pregabalin 2020-04 Yes Take by Univ ers (LYRICA 0-26 mouth ity of ORAL) 08:48: daily. [address] montelukast 2020-04 Yes 10mg Take 10 mg Univers 10 mg 0-26 by mouth ity of tablet 08:48: daily. [address] HYDROCHLORO 2020-04 Yes 10mg Take 10 mg Univers THIAZIDE 0-26 by mouth ity of ORAL 08:48: daily. [address] pregabalin 2020-04 Yes Take by Univ ers (LYRICA 0-26 mouth ity of ORAL) 08:48: daily. [address] montelukast 2020-04 Yes 10mg Take 10 mg Univers 10 mg 0-26 by mouth ity of tablet 08:48: daily. [address] Lyrica 75 Lyrica 75 2020-0 No 1{capsu QD Lyrica 75 MG MG 08 le} MG 00:00: 00 Lyrica 75 Lyrica 75 2020-0 No 1{capsu QD Lyrica 75 MG MG 12-10 le} MG 00:00: 00 Lyrica 75 Lyrica 75 2020-0 No 1{capsu QD Lyrica 75 MG MG 08 le} MG 00:00: 00 Lyrica 75 Lyrica 75 2020-0 No 1{capsu QD Lyrica 75 MG MG 12-10 le} MG 00:00: 00 Lyrica 75 Lyrica [...] tablet by ity of tablet 00:00: mouth. [address] methIMAzole 2019-04 Yes 10mg Take 1 Univ ers 10 mg 2-29 tablet by ity of tablet 00:00: mouth. [address] methIMAzole 2019-04 Yes 10mg Take 1 Univ ers 10 mg 2-29 tablet by ity of tablet 00:00: mouth. [address] methIMAzole 2019-04 Yes 10mg Take 1 Univ ers 10 mg 2-29 tablet by ity of tablet 00:00: mouth. [address] methIMAzole 2019-04- No 10mg Take 1 Uni vers 10 mg 2-29 12-14 tablet by ity of tablet 00:00: 00:00 mouth. [place] 00 [facility] methIMAzole 2019-04- No 10mg Take 1 Uni vers 10 mg 2-29 12-14 tablet by ity of tablet 00:00: 00:00 mouth. [place] 00 :00 [facility] Propranolol Propranolol 2020-0 Yes Manjinder 1 tablet Common HCl HCl 9-10 [place] [facility] 00:00: - [facility] 00 [facility] Ondansetron Ondansetron 2020-0 Yes Manjinder 1 tablet Common 8-18 [place] on the [facility] 00:00: tongue and - [facility] 00 allow to [facility] 30 minutes Medical prior to Center meals [...] 30) pregabalin 2020-0 Yes 75mg QD Take 1 Metho di (LYRICA) 75 6-[address] MG capsule 00:00: (75 mg Hospi ta 00 total) by l mouth daily. (per Prescripti on Drug Monitoring Program, last filled 07/12/2022 , quantity: 30, day supply: 30) pregabalin 2020-0 Yes 75mg QD Take 1 Metho di (LYRICA) 75 6- capsule st MG capsule 00:00: (75 mg [...] daily. montelukast 2020-0 Yes 10mg QD Take 1 Meth shay (SINGULAIR) 4-01 tablet (10 st 10 mg 00:00: mg total) Hospita tablet 00 by mouth l daily. montelukast 2020-0 Yes 10mg QD Take 1 [...] not exceed 200 mg in 24 hours. Lyrica 75 Lyrica 75 No 1{capsu QD [...] n [place] at bedtime Spirit as needed [facility] Sumatriptan Sumatriptan Yes Manjinder 1 tablet Common Succinate Succinate [place] as needed [facility] Methimazole Methimazole Yes Manjinder 3 tablet Common [place] [facility] Montelukast Montelukast Yes Manjinder 1 tablet Common Sodium Sodium [place] [facility] Lyrica Lyrica Yes Manjinder 1 capsule Comm on [place] [facility] Hydrochloro Hydrochloro Yes Manjinder 1 tablet Common thiazide thiazide [place] in the Spir it morning [facility] SUMAtriptan SUMAtriptan No SUMAtripta Succinate Succinate [...] 100 Zoloft 100 No QD MG MG Immunizations Ordered Filled Immunization Date Status Comments [facility] e Immunization Name Name Influenza Virus [...] y of Vaccine Quad .5 mL 00:00:00 [place] [facility] IM 6+ MO Branch TDAP (ADACEL) 2019-10-03 Completed University of VACCINE 00:00:00 [place] [facility] TDAP (ADACEL) 2019-10-03 Completed University of VACCINE 00:00:00 [place] [facility] TDAP (ADACEL) 2019-10-03 Completed University of VACCINE 00:00:00 [facility] TDAP (ADACEL) 2019-10-03 Completed University of VACCINE 00:00:00 [facility] TDAP (ADACEL) 2019-10-03 Completed University of VACCINE 00:00:00 [place] [facility] TDAP (ADACEL) 2019-10-03 Completed University of VACCINE 00:00:00 [place] [facility] TDAP (ADACEL) 2019-10-03 Completed University of VACCINE 00:00:00 [place] [facility] TDAP (ADACEL) 2019-10-03 Completed University of VACCINE 00:00:00 [place] [facility] TDAP (ADACEL) 2019-10-03 Completed University of VACCINE 00:00:00 [facility] TDAP (ADACEL) 2019-10-03 Completed University of VACCINE 00:00:00 [place] [facility] TDAP (ADACEL) 2019-10-03 Completed University of VACCINE 00:00:00 [place] [facility] TDAP (ADACEL) 2019-10-03 Completed University of VACCINE 00:00:00 [place] [facility] TDAP (ADACEL) 2019-10-03 Completed University of VACCINE 00:00:00 [place] [facility] TDAP (ADACEL) 2019-10-03 Completed University of VACCINE 00:00:00 [place] [facility] TDAP (ADACEL) 2019-10-03 Completed University of VACCINE 00:00:00 [place] [facility] TDAP (ADACEL) 2019-10-03 Completed University of VACCINE 00:00:00 [place] [facility] TDAP (ADACEL) 2019-10-03 Completed University of VACCINE 00:00:00 [facility] TDAP (ADACEL) 2019-10-03 Completed University of VACCINE 00:00:00 [facility] TDAP (ADACEL) 2019-10-03 Completed University of VACCINE 00:00:00 [facility] TDAP (ADACEL) 2019-10-03 Completed University of VACCINE 00:00:00 [facility] TDAP (ADACEL) 2019-10-03 Completed University of VACCINE 00:00:00 [facility] TDAP (ADACEL) 2019-10-03 Completed University of VACCINE 00:00:00 [facility] TDAP (ADACEL) 2019-10-03 Completed University of VACCINE 00:00:00 [facility] TDAP (ADACEL) 2019-10-03 Completed University of VACCINE 00:00:00 [facility] TDAP (ADACEL) 2019-10-03 Completed University of VACCINE 00:00:00 [facility] TDAP (ADACEL) 2019-10-03 Completed University of VACCINE 00:00:00 [facility] TDAP (ADACEL) 2019-10-03 Completed University of VACCINE 00:00:00 [facility] TDAP (ADACEL) 2019-10-03 Completed University of VACCINE 00:00:00 [facility] TDAP (ADACEL) 2019-10-03 Completed University of VACCINE 00:00:00 [facility] TDAP (ADACEL) 2019-10-03 Completed University of VACCINE 00:00:00 [place] [facility] TDAP (ADACEL) 2019-10-03 Completed University of VACCINE 00:00:00 [facility] TDAP (ADACEL) 2019-10-03 Completed University of VACCINE 00:00:00 [facility] TDAP (ADACEL) 2019-10-03 Completed University of VACCINE 00:00:[address] [facility] TDAP (ADACEL) 2019-10-03 Completed University of VACCINE 00:00:[address] [facility] TDAP (ADACEL) 2019-10-03 Completed University of VACCINE 00:00:[address] [facility] TDAP (ADACEL) 2019-10-03 Completed University of VACCINE 00:00:[address] [facility] TDAP (ADACEL) 2019-10-03 Completed University of VACCINE 00:00:[address] [facility] TDAP (ADACEL) 2019-10-03 Completed University of VACCINE 00:00:[address] [facility] TDAP (ADACEL) 2019-10-03 Completed University of VACCINE 00:00:[address] [facility] TDAP (ADACEL) 2019-10-03 Completed University of VACCINE 00:00:[address] [facility] TDAP (ADACEL) 2019-10-03 Completed University of VACCINE 00:00:[address] [facility] TDAP (ADACEL) 2019-10-03 Completed University of VACCINE 00:00:[address] [facility] Vital Signs Vital Name Observation Time Observation Value Comments Source Systolic blood 2022-07-22 13:31:00 130 mm[Hg] Univer sity of pressure [facility] Diastolic blood 2022-07-22 13:31:00 84 mm[Hg] Unive rsity of pressure [facility] Heart rate 2022-07-22 13:31:00 104 /min [facility] Body temperature 2022-07-22 13:31:00 36.11 Tegan [facility] 2022-07-22 13:31:00 18 /min [facility] Body height 2022-07-22 13:31:00 162.6 cm [facility] Body weight 2022-07-22 13:31:00 132.904 kg [facility] BMI 2022-07-22 13:31:00 50.29 kg/m2 [facility] Oxygen saturation in 2022-07-22 13:31:00 96 /min [facility] Arterial blood by [facility] Pulse oximetry Branch Systolic blood 2022-07-02 22:30:00 153 mm[Hg] Univer sity of pressure [facility] Diastolic blood 2022-07-02 22:30:00 86 mm[Hg] Unive rsity of pressure [place] [facility] Respiratory rate 2022-07-02 22:30:00 22 /min Univ ersity of [place] [facility] Oxygen saturation in 2022-07-02 22:30:00 96 /min University of Arterial blood by [place] [facility] Pulse oximetry Branch Body height 2022-07-02 16:34:00 162.6 cm [facility] [place] [facility] Body weight 2022-07-02 16:34:00 133.811 kg [facility] [place] [facility] BMI 2022-07-02 16:34:00 50.64 kg/m2 [facility] [place] [facility] Systolic blood 2022-07-02 19:43:00 134 mm[Hg] Univer sity of pressure [place] [facility] Diastolic blood 2022-07-02 19:43:00 74 mm[Hg] Unive rsity of pressure [place] [facility] Respiratory rate 2022-07-02 19:43:00 25 /min Univ ersity of [place] [facility] Oxygen saturation in 2022-07-02 19:43:00 95 /min University of Arterial blood by [place] [facility] Pulse oximetry Branch Body height 2022-07-02 16:34:00 162.6 cm [facility] [place] [facility] Body weight 2022-07-02 16:34:00 133.811 kg [facility] [place] [facility] BMI 2022-07-02 16:34:00 50.64 kg/m2 [facility] [place] [facility] Systolic blood 2022-06-09 14:41:00 129 mm[Hg] Univer sity of pressure [place] [facility] Diastolic blood 2022-06-09 14:41:00 74 mm[Hg] Unive rsity of pressure [place] [facility] Heart rate 2022-06-09 14:41:00 82 /min [facility] [place] [facility] Body temperature 2022-06-09 14:41:00 36.61 Tegan Univ ers[facility] [place] [facility] Body weight 2022-06-09 14:41:00 133.811 kg [facility] [place] [facility] BMI 2022-06-09 14:41:00 50.64 kg/m2 [facility] [place] [facility] Oxygen saturation in 2022-06-09 14:41:00 94 /min University of Arterial blood by [place] [facility] Pulse oximetry Branch Systolic blood 2022-05-24 23:45:00 119 mm[Hg] Univer sity of pressure [place] [facility] Diastolic blood 2022-05-24 23:45:00 53 mm[Hg] Unive rsity of pressure [place] [facility] Heart rate 2022-05-24 23:45:00 79 /min [facility] [place] [facility] Body temperature 2022-05-24 23:45:00 36.61 Tegan Univ ersity of [place] [facility] Respiratory rate 2022-05-24 23:45:00 20 /min Univ ersity of [place] [facility] Oxygen saturation in 2022-05-24 23:45:00 90 /min University of Arterial blood by [place] [facility] Pulse oximetry Branch Body height 2022-05-24 10:06:00 162.6 cm Universi ty [facility] [place] [facility] Body weight 2022-05-24 10:06:00 129.5 kg bed scale [facility] [place] [facility] BMI 2022-05-24 10:06:00 49.01 kg/m2 [facility] [place] [facility] Systolic blood 2022-05-20 14:07:00 140 mm[Hg] Univer sity of pressure [place] [facility] Diastolic blood 2022-05-20 14:07:00 85 mm[Hg] Unive rsity of pressure [place] [facility] Heart rate 2022-05-20 14:07:00 78 /min Universi ty [facility] [place] [facility] Respiratory rate 2022-05-20 14:07:00 19 /min Univ ersity of [place] [facility] Body weight 2022-05-20 14:07:00 139.254 kg [facility]i [facility] [place] [facility] BMI 2022-05-20 14:07:00 52.70 kg/m2 [facility] [place] [facility] Oxygen saturation in 2022-05-20 14:07:00 93 /min University of Arterial blood by [place] [facility] Pulse oximetry Branch Systolic blood 2022-05-18 14:46:00 113 mm[Hg] Univer sity of pressure [place] [facility] Diastolic blood 2022-05-18 14:46:00 76 mm[Hg] Unive rsity of pressure [place] [facility] Heart rate 2022-05-18 14:46:00 77 /min [facility]i ty [facility] [place] [facility] Respiratory rate 2022-05-18 14:46:00 14 /min Univ ersity of [place] [facility] Body weight 2022-05-18 14:46:00 138.801 kg Universi ty [facility] BMI 2022-05-18 14:46:00 52.52 kg/m2 Universi ty [facility] Oxygen saturation in 2022-05-18 14:46:00 92 /min room air University of Arterial blood by [facility] Pulse oximetry Branch Systolic blood 2022-03-17 21:36:00 115 mm[Hg] Univer sity of pressure [facility] Diastolic blood 2022-03-17 21:36:00 69 mm[Hg] Unive rsity of pressure [facility] Heart rate 2022-03-17 21:36:00 76 /min Universi ty [facility] Body height 2022-03-17 21:36:00 162.6 cm Universi ty [facility] Body weight 2022-03-17 21:36:00 133.176 kg Universi ty [facility] BMI 2022-03-17 21:36:00 50.40 kg/m2 Universi ty [facility] Oxygen saturation in 2022-03-17 21:36:00 95 /min University of Arterial blood by [facility] Pulse oximetry Branch height 2021-11-13 16:20:00 64 [in_i] [facility] weight 2021-11-13 16:20:00 305.3 [lb_av] [facility] temperature 2021-11-13 16:20:00 97.3 [degF] [facility] bmi 2021-11-13 16:20:00 52.4 kg/m2 [facility] oximetry 2021-11-13 16:20:00 95 % [facility] respiratory rate 2021-11-13 16:20:00 18 /min Comm on [facility] blood pressure 2021-11-13 16:20:00 129 mm[Hg] Common [facility] - systolic [facility] blood pressure 2021-11-13 16:20:00 67 mm[Hg] Common [facility] - diastolic [facility] height 2021-09-30 09:20:00 64 [in_i] [facility] 2021-09-30 09:20:00 314.3 [lb_av] Common [facility] temperature 2021-09-30 09:20:00 97.2 [degF] Common [facility] bmi 2021-09-30 09:20:00 53.94 kg/m2 Common S [facility] oximetry 2021-09-30 09:20:00 93 % Common S [facility] respiratory rate 2021-09-30 09:20:00 16 /min Comm on [facility] blood pressure 2021-09-30 09:20:00 132 mm[Hg] Common [facility] - systolic [facility] blood pressure 2021-09-30 09:20:00 67 mm[Hg] Common [facility] - diastolic [facility] height 2021-05-07 13:50:00 64 [in_i] Common [facility] weight 2021-05-07 13:50:00 287.7 [lb_av] [facility] temperature 2021-05-07 13:50:00 97.2 [degF] Common [facility] bmi 2021-05-07 13:50:00 49.38 kg/m2 Common [facility] oximetry 2021-05-07 13:50:00 94 % Common [facility] respiratory rate 2021-05-07 13:50:00 16 /min Comm on [facility] blood pressure 2021-05-07 13:50:00 136 mm[Hg] [facility] - [facility] blood pressure 2021-05-07 13:50:00 76 mm[Hg] [facility] - diastolic [facility] height 2021-04-06 16:00:00 64 [in_i] Common [facility] weight 2021-04-06 16:00:00 286.0 [lb_av] Common [facility] temperature 2021-04-06 16:00:00 97.6 [degF] [facility] bmi 2021-04-06 16:00:00 49.09 kg/m2 [facility] oximetry 2021-04-06 16:00:00 97 % [facility] respiratory rate 2021-04-06 16:00:00 17 /min Comm on [facility] blood pressure 2021-04-06 16:00:00 127 mm[Hg] [facility] systolic [facility] blood pressure 2021-04-06 16:00:00 62 mm[Hg] [facility] diastolic [facility] height 2020-12-10 10:20:00 64 [in_i] [facility] weight 2020-12-10 10:20:00 288.7 [lb_av] [facility] temperature 2020-12-10 10:20:00 97.5 [degF] [facility] bmi 2020-12-10 10:20:00 49.55 kg/m2 [facility] oximetry 2020-12-10 10:20:00 93 % [facility] respiratory rate 2020-12-10 10:20:00 17 /min Comm on [facility] blood pressure 2020-12-10 10:20:00 124 mm[Hg] [facility] systolic [facility] blood pressure 2020-12-10 10:20:00 68 mm[Hg] [facility] diastolic [facility] Systolic blood 2022-08-05 20:45:09 107 mm[Hg] Method ist [facility] pressure Diastolic blood 2022-08-05 20:45:09 54 mm[Hg] [facility] pressure Heart rate 2022-08-05 20:45:09 63 /[facility] in 2022-08-05 20:45:09 93 /min [facility] Arterial blood by Pulse oximetry Body temperature 2022-08-05 20:44:27 35.56 Tegan [facility] Respiratory rate 2022-08-05 20:44:27 16 /min [facility] Body weight 2022-08-05 04:15:00 129.956 kg [facility] BMI 2022-08-05 04:15:00 49.18 kg/m2 [facility] Body height 2022-08-04 17:14:00 162.6 cm [facility] Systolic blood 2021-09-09 22:24:07 133 mm[Hg] [facility] [place] pressure Diastolic blood 2021-09-09 22:24:07 65 mm[Hg] [facility] pressure Heart rate 2021-09-09 22:24:07 62 /min [facility] Body temperature 2021-09-09 22:24:07 36.28 Tegan [facility] Respiratory rate 2021-09-09 22:24:07 18 /min [facility] Oxygen saturation in 2021-09-09 22:24:07 96 /min [facility] Arterial blood by Pulse oximetry Body weight 2021-09-02 08:51:24 136.896 kg [facility] BMI 2021-09-02 08:51:24 51.80 kg/m2 [facility] Body height 2021-08-27 02:47:26 162.6 cm [facility] Procedures Procedure Date / Time Performing Clinician Source Performed XR SKULL < 4 VW 2022-10-22 19:33:00 [facility] MRI HEAD EXTERNAL STUDY 2022-10-22 15:09:[address] [facility] ECG 12-LEAD 2022-08-05 18:37:07 Lilian Saeed TROPONIN T 2022-08-05 15:12:00 Lilian Saeed EEG AWAKE/DROWSY LESS THAN 2022-08-05 10:40:00 [facility] 41 MIN [place] CBC WITH PLATELET AND 2022-08-05 09:06:00 Lilian Saeed [facility] [place] DIFFERENTIAL [place] BASIC METABOLIC PANEL 2022-08-05 09:06:00 Lilian Saeed [facility] [place] Kathleen MAGNESIUM LEVEL 2022-08-05 09:06:00 Lilian Saeed PHOSPHORUS LEVEL 2022-08-05 09:06:00 Lilian Saeed H ospimarcia Kathleen ESTIMATED GFR 2022-08-05 09:06:00 Lilian Saeed XR ABDOMEN 1 VW PORTABLE 2022-08-05 03:52:27 Lilian Saeed [facility] Hever ECG 12-LEAD 2022-08-04 21:36:[address] HEAD WO CONTRAST 2022-08-04 20:49:[facility] SEPSIS - 2022-08-04 20:10:00 [facility] NOW AND REPEAT 2X EVERY 3 HOURS XR SHUNT SERIES CHEST ABD 2 2022-08-04 18:15:32 [facility] VIEW XR SHUNT SERIES HEAD NECK 2 2022-08-04 18:15:06 [facility] VIEW CBC WITH PLATELET AND 2022-08-04 17:25:00 [facility] DIFFERENTIAL COMPREHENSIVE METABOLIC 2022-08-04 17:25:00 [facility] PANEL LACTIC ACID LEVEL, SEPSIS - 2022-08-04 17:25:00 [facility] NOW AND REPEAT 2X EVERY 3 HOURS ESTIMATED GFR 2022-08-04 17:25:00 [facility] ECG ED PRELIMINARY 2022-08-04 17:07:38 [facility] INTERPRETATION ELECTROPHYSIOLOGY PROCEDURE 2022-07-02 19:12:46 [facility] HB ECG ROUTINE & RHYTHM 2022-07-02 16:28:34 Gulshan [facility] BASIC METABOLIC PANEL (NA, 2022-07-02 16:23:00 Gulshan [facility] K, CL, CO2, GLUCOSE, BUN, Medica l Branch CREATININE, CA) CBC WITH DIFF 2022-07-02 16:23:00 [facility]R 2022-07-02 16:23:00 Brooke [facility] BASIC METABOLIC PANEL (NA, 2022-07-02 16:23:00 Gulshan [facility] K, CL, CO2, GLUCOSE, BUN, Medica l Branch CREATININE, CA) CBC WITH DIFF 2022-07-02 16:23:00 Gulshan [facility] PROTHROMBIN TIME / INR 2022-07-02 16:23:00 Brooke Gulshan [facility] EP PROCEDURE 2022-07-02 05:01:00 Doctor Margarito, [facility] Name Medical [facility] PATIENT FINANCIAL 2022-06-09 14:27:57 Doctor Margarito, [facility] POLICY [facility] TROPONIN I 2022-05-24 22:10:[address] [facility] TRANSTHORACIC ECHO (TTE) 2022-05-24 17:43:19 Ju Frey [facility] COMPLETE W/ CONTRAST [facility] TROPONIN I 2022-05-24 13:58:[address] [facility] XR CHEST 1 VW 2022-05-24 06:01:00 Nahun Ortez [facility] NOTICE OF PRIVACY PRACTICES 2022-05-24 05:47:06 Doctor Bassam bacon [facility] CONSENT/REFUSAL FOR 2022-05-24 05:46:30 Doctor Pimentel [facility] DIAGNOSIS AND TREATMENT [facility] LIPASE 2022-05-24 05:42:00 Nahun Ortez [facility] TROPONIN I 2022-05-24 05:42:00 Nahun Ortez [facility] COMP. METABOLIC PANEL 2022-05-24 05:42:00 Nahun Ortez [facility] ([id number]) Medical [place] LIPID PANEL ([id number])(TOTAL 2022-05-24 05:42:00 Ju Frey [facility] CHOLESTEROL, TRIGLYCERIDES, [facility] HDL) CBC WITH DIFF 2022-05-24 05:42:[address]z o [address] [facility] PROTHROMBIN TIME / INR 2022-05-24 05:42:00 Nahun Ortez [facility] ACTIVATED PARTIAL THRMPLAS 2022-05-24 05:42:00 Nahun Ortez [facility] N-TERMINAL PRO-BNP 2022-05-24 05:42:00 Nahun Ortez [facility] HB ECG ROUTINE & RHYTHM 2022-05-24 05:38:29 Nahun Ortez [facility] ASSIGNMENT OF BENEFITS 2022-05-20 15:01:15 Doctor Unassigned, [facility] HB ECG ROUTINE & RHYTHM 2022-03-17 21:43:[address] [facility] CONSENT/REFUSAL FOR 2022-03-17 21:23:03 Doctor Unassigned, [facility] DIAGNOSIS AND TREATMENT [facility] MRI HEAD EXTERNAL STUDY 2021-10-19 15:25:[address] [facility] POC GLUCOSE 2021-09-09 22:23:00 Acacia [facility] POC GLUCOSE 2021-09-09 17:43:00 Acacia [facility] POC GLUCOSE 2021-09-09 12:46:00 [facility] POC GLUCOSE 2021-09-09 02:10:00 Acacia [facility] POC GLUCOSE 2021-09-08 22:50:00 Acacia [facility] POC GLUCOSE 2021-09-08 18:35:00 JoAcacia rivera [facility] POC GLUCOSE 2021-09-08 13:10:00 JoAcacia rivera [facility] POC GLUCOSE 2021-09-08 02:28:00 JoAcacia rivera [facility] POC GLUCOSE 2021-09-07 23:10:00 JoglAcacia carrasco [facility] POC GLUCOSE 2021-09-07 17:46:00 JoAcacia rivera [facility]ital POC GLUCOSE 2021-09-07 13:20:00 Joglekar, Acacia [facility] POC GLUCOSE 2021-09-07 02:07:00 Joglekar, Acacia [facility] POC GLUCOSE 2021-09-06 23:51:00 Joglekar, Acacia [facility] POC GLUCOSE 2021-09-06 17:26:00 Joglekar, Acacia [facility] POC GLUCOSE 2021-09-06 13:13:00 Joglekar, Acacia [facility] POC GLUCOSE 2021-09-06 02:43:00 Joglekar, Acacia [facility] POC GLUCOSE 2021-09-05 23:55:00 Joglekar, Acacia [facility] POC GLUCOSE 2021-09-05 17:41:00 Joglekar, Acacia [facility] POC GLUCOSE 2021-09-05 13:45:00 Joglekar, Acacia [facility] ECG 12-LEAD 2021-09-05 05:50:02 Joglekar, Acacia [facility] POC GLUCOSE 2021-09-05 03:25:00 Joglekar, Acacia [facility] POC GLUCOSE 2021-09-05 01:53:00 Joglekar, Acacia [facility] POC GLUCOSE 2021-09-04 23:28:00 Joglekar, Acacia [facility] POC GLUCOSE 2021-09-04 17:44:00 JoglekarAcacia spital SIX MINUTE WALK W/ PULSE 2021-09-04 16:54:41 JoglAcacia carrasco [facility] OXIMETRY POC GLUCOSE 2021-09-04 13:27:00 Joglekar, Acacia [facility] POC GLUCOSE 2021-09-04 02:14:00 Joglekar, Acacia [facility] POC GLUCOSE 2021-09-03 23:15:00 Joglekar, Acacia [facility] POC GLUCOSE 2021-09-03 17:35:00 Joglekar, Acacia [facility] POC GLUCOSE 2021-09-03 13:29:00 Joglekar, Acacia [facility] POC GLUCOSE 2021-09-03 03:43:00 Joglekar, Acacia [facility] POC GLUCOSE 2021-09-02 22:37:00 Joglekar, Acacia [facility] POC GLUCOSE 2021-09-02 17:32:00 Joglekar, Acacia [facility] POC GLUCOSE 2021-09-02 13:55:00 Joglekar, Acacia [facility] POC GLUCOSE 2021-09-02 02:06:00 Joglekar, Acacia [facility] POC GLUCOSE 2021-09-01 22:59:00 Joglekar, Acacia [facility] XR ABDOMEN 1 VW PORTABLE 2021-09-01 21:44:00 [facility] CBC WITH PLATELET AND 2021-09-01 17:49:00 [facility] DIFFERENTIAL COMPREHENSIVE METABOLIC 2021-09-01 17:49:00 [facility] PANEL ESTIMATED GFR 2021-09-01 17:49:00 [facility] POC GLUCOSE 2021-09-01 17:31:00 Joglekar, Acacia [facility] POC GLUCOSE 2021-09-01 13:36:00 JoglekarShaneAaccia [facility] POC GLUCOSE 2021-09-01 01:58:00 JoglekarShaneAcacia [facility] POC GLUCOSE 2021-08-31 23:12:00 JoglekarShaneAcacia [facility] POC GLUCOSE 2021-08-31 17:21:00 JoglekarShaneAcacia [facility] POC GLUCOSE 2021-08-31 13:08:00 Joglekar, Acacia [facility] POC GLUCOSE 2021-08-31 01:41:00 Joglekar, Acacia [facility] POC GLUCOSE 2021-08-30 23:36:00 Joglekar, Acacia [facility] POC GLUCOSE 2021-08-30 17:36:00 JoglekarShaneAcacia [facility] POC GLUCOSE 2021-08-30 13:15:00 Joglekar, Acacia [facility] POC GLUCOSE 2021-08-30 02:00:00 Joglekar, Acacia [facility] POC GLUCOSE 2021-08-29 23:05:00 Joglekar, Acacia [facility] POC GLUCOSE 2021-08-29 17:57:00 Joglekar, Acacia [facility] POC GLUCOSE 2021-08-29 13:41:00 Joglekar, Acacia [facility] POC GLUCOSE 2021-08-29 01:29:00 Joglekar, Acacia [facility] POC GLUCOSE 2021-08-28 22:55:00 Joglekar, Acacia [facility] POC GLUCOSE 2021-08-28 17:23:00 Joglekar, Acacia [facility] POC GLUCOSE 2021-08-28 13:45:00 Joglekar, Acacia [facility] POC GLUCOSE 2021-08-28 01:28:00 Joglekar, Acacia [facility] COVID-19 QUALITATIVE RT-PCR 2021-08-27 22:41:00 Joglekbenji, [facility] POC GLUCOSE 2021-08-27 22:33:00 Joglekar, Acacia [facility] POC GLUCOSE 2021-08-27 17:33:00 Joglekar, Acacia [facility] POC GLUCOSE 2021-08-27 12:35:00 Joglekar, Acacia [facility] POC GLUCOSE 2021-08-27 02:48:00 Joglekar, Acacia [facility] POC GLUCOSE 2021-08-26 22:44:00 Joglekar, Acacia [facility] POC GLUCOSE 2021-08-26 16:43:00 Joglekar, Acacia [facility] POC GLUCOSE 2021-08-26 13:42:00 Joglekar, Acacia [facility] POC GLUCOSE 2021-08-26 01:50:00 Joglekar, Acacia [facility] POC GLUCOSE 2021-08-25 23:14:00 Joglekar, Acacia [facility] COVID-19 QUALITATIVE RT-PCR 2021-08-25 21:42:[address] [facility] POC GLUCOSE 2021-08-25 17:35:00 JoAcacia rivera [facility] POC GLUCOSE 2021-08-25 12:51:00 JoAcacia rivera [facility] POC GLUCOSE 2021-08-24 21:45:00 JoAcacia rivera [facility] POC GLUCOSE 2021-08-24 16:30:00 Acacia Lewis [facility] POC GLUCOSE 2021-08-24 13:01:00 JoAcacia rivera Ho spital XR CHEST 1 VW PORTABLE 2021-08-24 06:11:[address] [facility] ECG 12-LEAD 2021-08-24 05:35:00 [facility] TROPONIN T 2021-08-24 05:14:00 [facility] B NATRIURETIC PEPTIDE 2021-08-24 05:14:00 [facility] D-DIMER 2021-08-24 05:14:00 [facility] POC GLUCOSE 2021-08-24 01:34:00 JoAcacia rivera Ho spital POC GLUCOSE 2021-08-23 22:13:00 JoglekAcacia leblanc [facility] POC GLUCOSE 2021-08-23 16:50:00 JoglAcacia carrasco [facility] POC GLUCOSE 2021-08-23 12:50:00 JoglekAcacia leblanc [facility] POC GLUCOSE 2021-08-23 02:07:00 PosaniRichelle [facility] POC GLUCOSE 2021-08-22 22:43:00 PosaniBillyRichelle [facility] POC GLUCOSE 2021-08-22 16:45:00 PosaniRichelle [facility] POC GLUCOSE 2021-08-22 12:29:00 PosaniRichelle Ho [facility]ital XR SKULL < 4 VW 2021-08-22 04:41:17 Mary Jane Rico [facility] POC GLUCOSE 2021-08-22 00:46:00 PosRichelle james Ho spital POC GLUCOSE 2021-08-21 22:41:00 PosRichelle james Ho spital POC GLUCOSE 2021-08-21 16:36:00 PosRichelle james Ho spital POC GLUCOSE 2021-08-21 13:46:00 PosRichelle james Ho spital BASIC METABOLIC PANEL 2021-08-21 09:48:00 [facility] CBC WITH PLATELET AND 2021-08-21 09:48:00 [facility] DIFFERENTIAL PHOSPHORUS LEVEL 2021-08-21 09:48:00 [facility] MAGNESIUM LEVEL 2021-08-21 09:48:00 [facility] IONIZED CALCIUM 2021-08-21 09:48:00 Norma [facility] ESTIMATED GFR 2021-08-21 09:48:00 Norma [facility] MRI BRAIN W WO CONTRAST 2021-08-21 04:00:00 [facility] POC GLUCOSE 2021-08-21 01:14:00 PosRichelle james Ho spital POC GLUCOSE 2021-08-20 20:59:00 PosRichelle james Ho spital IR EPIDURAL BLOOD PATCH 2021-08-20 19:49:[address] [facility] [place] POC GLUCOSE 2021-08-20 16:26:00 PosRichelle james Ho spital POC GLUCOSE 2021-08-20 12:21:00 PosRichelle james Ho spital POC GLUCOSE 2021-08-20 09:12:00 PosRichelle james Ho spital POC GLUCOSE 2021-08-20 05:11:00 PosRichelle james Ho spital BASIC METABOLIC PANEL 2021-08-20 04:57:00 Desiree Baez [facility] CBC WITH PLATELET AND 2021-08-20 04:57:00 Richelle Lowry [facility] DIFFERENTIAL THYROID STIMULATING HORMONE 2021-08-20 04:57:00 Alvares, [facility]elle [facility] T[facility], FREE 2021-08-20 04:57:[address] [facility] ESTIMATED GFR 2021-08-20 04:57:00 Poserika [facility] spital MAGNESIUM LEVEL 2021-08-20 04:57:00 Poserika [facility] spital PHOSPHORUS LEVEL 2021-08-20 04:57:00 Poserika [facility] IONIZED CALCIUM 2021-08-20 04:57:00 Poserika, [facility] spital POC GLUCOSE 2021-08-20 01:05:00 Essence [facility] spital CT HEAD WO CONTRAST 2021-08-19 22:19:25 [facility] ARTERIAL LINE 2021-08-19 20:28:13 [facility] MISCELLANEOUS REFERRAL TEST 2021-08-19 19:31:00 Essence [facility] SURGICAL PATHOLOGY REQUEST 2021-08-19 19:31:00 Essence [facility] URINE CULTURE 2021-08-19 17:20:00 Essence [facility] spital [place] AN ELECTIVE ENDOTRACHEAL 2021-08-19 17:02:[facility] CRANIOTOMY 2021-08-19 16:44:[address] [facility] XR SKULL < 4 VW 2021-08-19 15:03:00 [facility] [place] POC GLUCOSE 2021-08-19 12:52:00 Essence [facility] spital POC GLUCOSE 2021-08-19 00:22:00 [facility] QUALITATIVE RT-PCR 2021-08-18 21:40:00 [facility] [place] ABO AND RH CONFIRMATION BY 2021-08-18 20:31:00 [facility] PROTOCOL [place] PARTIAL THROMBOPLASTIN TIME 2021-08-18 16:57:00 [facility] (PTT[facility] [place] PROTHROMBIN TIME WITH INR 2021-08-18 16:57:00 [facility] [place] TYPE AND SCREEN 2021-08-18 16:57:00 [facility] [place] MRI BRAIN W WO CONTRAST 2021-08-18 15:18:00 [facility] [place] POC GLUCOSE 2021-08-18 13:28:00 Posani, Richelle Daigle Ho spital CBC WITH PLATELET AND 2021-08-18 10:06:00 [facility] DIFFERENTIAL [place] POC GLUCOSE 2021-08-17 22:14:00 Posani, Richelle Daigle [facility] spital POC GLUCOSE 2021-08-17 18:05:00 Posani, Richelle Daigle spital POC GLUCOSE 2021-08-17 14:36:00 Posani, Richelle Daigle spital TTE COMPLETE, W CONTRAST, W 2021-08-17 13:00:00 Poserika [facility] DOPPLER ([id number]) CBC WITH PLATELET AND 2021-08-17 10:27:00 [facility] DIFFERENTIAL [place] TROPONIN T 2021-08-17 10:27:00 Posani, Richelle Daigle [facility]ital BASIC METABOLIC PANEL 2021-08-17 10:27:00 Posani, [facility] ESTIMATED GFR 2021-08-17 10:27:00 PosRichelle james spital ECG 12-LEAD 2021-08-17 05:20:42 PosRichelle james spital POC GLUCOSE 2021-08-17 03:20:00 Posani, Richelle Daigle [facility] spital POC GLUCOSE 2021-08-16 22:56:00 Posani, Richelle Daigle [facility] spital POC GLUCOSE 2021-08-16 17:38:00 Posani, Richelle Daigle spital POC GLUCOSE 2021-08-16 13:51:00 Posani, Richelle Daigle spital CBC WITH PLATELET AND 2021-08-16 10:14:00 [facility] DIFFERENTIAL [place] BASIC METABOLIC PANEL 2021-08-16 10:14:00 Posani [facility] ESTIMATED GFR 2021-08-16 10:14:00 Posani, Richelle Daigle spital B NATRIURETIC PEPTIDE 2021-08-16 04:37:00 JusticeZoie cortes [facility] TROPONIN T 2021-08-16 04:37:00 JusticeZoiecarlmilagros [facility] D-DIMER 2021-08-16 04:37:00 [facility] ECG 12-LEAD 2021-08-16 04:34:46 [facility] POC GLUCOSE 2021-08-16 02:27:00 Posani, Richelle Daigle Ho spital POC GLUCOSE 2021-08-15 23:05:00 Posani, Richelle Daigle Ho spital BASIC METABOLIC PANEL 2021-08-15 21:03:00 Posani, [facility] ESTIMATED GFR 2021-08-15 21:03:00 Posani, Richelle [facility] POC GLUCOSE 2021-08-15 18:03:00 Posani, Richelle [facility] POC GLUCOSE 2021-08-15 13:24:00 Posani, Richelle [facility] POC GLUCOSE 2021-08-15 02:11:00 Posani, Richelle [facility] POC GLUCOSE 2021-08-14 22:57:00 Posani, Richelle [facility] POC GLUCOSE 2021-08-14 17:36:00 Posani, Richelle [facility] POC GLUCOSE 2021-08-14 13:23:00 Posani, Richelle [facility] POC GLUCOSE 2021-08-14 01:21:00 Posani, Richelle [facility] POC GLUCOSE 2021-08-13 22:46:00 Posani, Richlele [facility] POC GLUCOSE 2021-08-13 17:17:00 Posani, Richelle [facility] POC GLUCOSE 2021-08-13 13:06:00 Posani, Richelle Daigle [facility]ital URINE CULTURE 2021-08-13 13:02:00 Charli Wang Ho spital URINE DRUGS OF ABUSE SCREEN 2021-08-13 10:52:00 [facility] URINALYSIS SCREEN AND 2021-08-13 10:52:00 [facility] MICROSCOPY, WITH REFLEX TO CULTURE HEMOGLOBIN A1C 2021-08-13 09:13:00 [facility] spital LIPID PANEL 2021-08-13 09:13:00 [facility] HOMOCYSTINE, PLASMA 2021-08-13 09:13:00 [facility] FOLATE LEVEL 2021-08-13 09:13:00 [facility] VITAMIN B12 LEVEL 2021-08-13 09:13:00 [facility] THYROID STIMULATING HORMONE 2021-08-13 09:13:00 [facility] T4, FREE 2021-08-13 09:13:00 [facility] SEDIMENTATION RATE 2021-08-13 09:13:00 [facility] C-REACTIVE PROTEIN 2021-08-13 09:13:00 [facility] PROTHROMBIN TIME WITH INR 2021-08-13 09:13:00 [facility] PARTIAL THROMBOPLASTIN TIME 2021-08-13 09:13:00 [facility] (PTT) HIV 1/2 ANTIGEN/ANTIBODY, 2021-08-13 09:13:00 [facility] FOURTH GENERATION, WITH REFLEXES SYPHILIS TREPONEMA SCREEN 2021-08-13 09:13:00 [facility] WITH RPR CONFIRMATION (REVERSE ALGORITHM) POC GLUCOSE 2021-08-13 03:11:00 Lauren Francois spital POC GLUCOSE 2021-08-12 23:38:00 Lauren Francois spital TROPONIN T 2021-08-11 18:20:00 [facility] THYROID STIMULATING HORMONE 2021-08-11 18:20:00 [facility] T4, FREE 2021-08-11 18:20:00 Lauren Francois spital ECG 12-LEAD 2021-08-11 17:05:13 Lauren Francois spital MRI THORACIC SPINE W WO 2021-08-10 14:20:00 ElenaIrene [facility] CONTRAST MRI LUMBAR SPINE W WO 2021-08-10 13:30:[address] [facility] CONTRAST MRI CERVICAL SPINE W WO 2021-08-10 12:45:00 [facility] CONTRAST ZZCOVID-19 ANTI-SPIKE IGG 2021-08-10 08:20:00 [facility] TITER Terry CBC WITH PLATELET AND 2021-08-10 08:20:00 [facility] DIFFERENTIAL COMPREHENSIVE METABOLIC 2021-08-10 08:20:00 [facility] PANEL ZZCOVID-19 SEROLOGY PATIENT 2021-08-10 08:20:00 [facility] SURVEILLANCE Terry ESTIMATED GFR 2021-08-10 08:20:00 [facility] spital TROPONIN T 2021-08-09 09:19:00 [facility] spital MRI BRAIN W WO CONTRAST 2021-08-09 06:35:00 Asim Almanza [facility] ECG ED PRELIMINARY 2021-08-09 03:18:13 [facility] INTER[facility]TATION CT HEAD WO CONTRAST 2021-08-09 03:04:32 [facility] POC , URINE 2021-08-09 02:52:00 WarrenJoel [facility] Andrea COVID-19 QUALITATIVE RT-PCR 2021-08-09 02:37:00 [facility] CBC WITH PLATELET AND 2021-08-09 02:37:00 [facility] DIFFERENTIAL PROTHROMBIN TIME WITH INR 2021-08-09 02:37:00 [facility] PARTIAL THROMBOPLASTIN TIME 2021-08-09 02:37:00 [facility] (PTT) COMPREHENSIVE METABOLIC 2021-08-09 02:37:00 [facility] PANEL ESTIMATED GFR 2021-08-09 02:37:00 [facility] spital TROPONIN T 2021-08-09 02:37:00 [facility] spital B NATRIURETIC PEPTIDE 2021-08-09 02:37:00 [facility] XR SKULL < 4 VW 2021-08-09 02:09:31 [facility] 12-LEAD 2021-08-09 01:42:14 Manas Mcghee spital XR ABDOMEN AP AND LATERAL 2021-08-09 01:40:26 [facility] CERVICAL SPINE 2 OR 3 VW 2021-08-09 01:40:[address] [facility] XR CHEST 2 VW 2021-08-09 01:39:53 Manas Mcghee spital Plan of Care Planned Activity Planned Date Details Comments Source Future Scheduled 2022-12-06 Screening for malignant [facility] 06:32:01 [facility]oplasm [facility] colon Hospital (procedure) [code = 661595031] Future Scheduled 2022-12-06 Screening for malignant [facility] 06:32:01 neoplasm of colon Hospital (procedure) [code = 540148638] Future Scheduled 2022-12-06 Screening for malignant [facility] 06:32:01 neoplasm of colon Hospital (procedure) [code = 658357486] Future Scheduled 2022-12-06 COVID-19 VACCINE (#1) [facility] 06:32[facility]01 [code = COVID-19 VACCINE Hos pital (#1)] Future Scheduled 2022-12-06 Hepatitis C screening [facility] 06:32:01 (procedure) [code = Hospital 993334145] Future Scheduled 2022-12-06 Screening for malignant [facility] 06:32:01 neoplasm of cervix Hospital (procedure) [code = 766538345] Future Scheduled 2022-12-06 BREAST CANCER SCREENING [facility] 06:32:01 [code = BREAST CANCER Hospit al SCREENING] Future Scheduled 2022-12-06 Screening for malignant [facility] 06:32:01 neoplasm of colon Hospital (procedure) [code = 577669050] Future Scheduled 2022-12-06 Screening for malignant [facility] 06:32:01 neoplasm of colon Hospital (procedure) [code = 330161055] Future Scheduled 2022-12-06 INFLUENZA VACCINE (#1) [facility] Test 06:32:01 [code = INFLUENZA VACCINE Ho spital (#1)] Future Scheduled 2022-12-03 Influenza Vaccine (#1[facility] [code = Influenza Vaccine [facility] (#1)] Future Scheduled 2022-12-03 Influenza Vaccine (Season [facility] Test 00:00:00 Ended) [code = Influenza [facility] Vaccine (Season Ended)] Future Scheduled 2022-11-01 Screening for malignant [facility] 22:18:26 neoplasm of colon Hospital (procedure) [code = 177319505] Future Scheduled 2022-11-01 Screening for malignant [facility] 22:18:26 neoplasm of colon Hospital (procedure) [code = 419631710] Future Scheduled 2022-11-01 Screening for malignant [facility] 22:18:26 neoplasm of colon Hospital (procedure) [code = 212541017] Future Scheduled 2022-11-01 COVID-19 VACCINE (#1) [facility] 22:18:26 [code = COVID-19 VACCINE Hos pital (#1)] Future Scheduled 2022-11-01 Hepatitis C screening [facility] 22:18:26 (procedure) [code = Hospital 133416654] Future Scheduled 2022-11-01 Screening for malignant [facility] 22:18:26 neoplasm of cervix Hospital (procedure) [code = 242831203] Future Scheduled 2022-11-01 BREAST CANCER SCREENING [facility] 22:18:26 [code = BREAST CANCER Hospit al SCREENING] Future Scheduled 2022-11-01 Screening for malignant [facility] 22:18:26 neoplasm of colon Hospital (procedure) [code = 734347329] Future Scheduled 2022-11-01 Screening for malignant [facility] 22:18:26 neoplasm of colon Hospital (procedure) [code = 484541033] Future Scheduled 2022-11-01 INFLUENZA VACCINE [code = [facility] 22:18:26 INFLUENZA VACCINE] Hospital Future Scheduled 2022-09-16 Screening for malignant [facility] 16:43:42 neoplasm of colon Hospital (procedure) [code = 235812253] Future Scheduled 2022-09-16 Screening for malignant [facility] 16:43:42 neoplasm of colon Hospital (procedure) [code = 089933722] Future Scheduled 2022-09-16 Screening for malignant [facility] 16:43:42 neoplasm of colon Hospital (procedure) [code = 936743698] Future Scheduled 2022-09-16 COVID-19 VACCINE (#1) [facility] 16:43:42 [code = COVID-19 VACCINE Hos pital (#1)] Future Scheduled 2022-09-16 Hepatitis C screening [facility] 16:43:42 (procedure) [code = Hospital 947385745] Future Scheduled 2022-09-16 Screening for malignant [facility] 16:43:42 neoplasm of cervix Hospital (procedure) [code = 375892319] Future Scheduled 2022-09-16 BREAST CANCER SCREENING [facility] 16:43:42 [code = BREAST CANCER Hospit al SCREENING] Future Scheduled 2022-09-16 Screening for malignant [facility] 16:43:42 neoplasm of colon Hospital (procedure) [code = 782883600] Future Scheduled 2022-09-16 Screening for malignant [facility] 16:43:42 neoplasm of colon Hospital (procedure) [code = 911671771] Future Scheduled 2022-09-16 INFLUENZA VACCINE [code = [facility] 16:43:42 INFLUENZA VACCINE] Hospital Future Scheduled 2022-07-02 COVID-19 VACCINE (#1) [facility] 10:16:08 [code = COVID-19 VACCINE Hos pital (#1)] Future Scheduled 2022-07-02 Hepatitis C screening [facility] 10:16:08 (procedure) [code = Hospital 417370265] Future Scheduled 2022-07-02 Screening for malignant [facility] 10:16:08 neoplasm of cervix Hospital (procedure) [code = 618383728] Future Scheduled 2022-07-02 BREAST CANCER SCREENING [facility] 10:16:08 [code = BREAST CANCER Hospit al SCREENING] Future Scheduled 2022-07-02 COLONOSCOPY SCREENING [facility] 10:16:08 [code = COLONOSCOPY Hospital SCREENING] Future Scheduled 2022-07-02 INFLUENZA VACCINE [code = [facility] 10:16:08 INFLUENZA VACCINE] Hospital Future Scheduled [facility] (12+) [code = DEPRESSION [facility] SCREENING (12+)] Future Scheduled 2022-03-26 COVID-19 VACCINE (#1) [facility] 11:14:58 [code = COVID-19 VACCINE Hos pital (#1)] Future Scheduled 2022-03-26 Hepatitis C screening [facility] 11:14:58 (procedure) [code = Hospital 599744314] Future Scheduled 2022-03-26 Screening for malignant [facility] Test 11:14:58 neoplasm of cervix [facility] (procedure) [code = 573441679] Future Scheduled 2022-03-26 BREAST CANCER SCREENING [facility] 11:14:58 [code = BREAST CANCER Hospit al SCREENING] Future Scheduled 2022-03-26 COLONOSCOPY SCREENING [facility] 11:14:58 [code = COLONOSCOPY Hospital SCREENING] Future Scheduled 2022-03-26 INFLUENZA VACCINE [code = [facility] 11:14:58 INFLUENZA VACCINE] Hospital Future Scheduled 2022-03-19 COVID-19 VACCINE (#1) [facility] 04:23:42 [code = COVID-19 VACCINE Hos pital (#1)] Future Scheduled 2022-03-19 Hepatitis C screening [facility] 04:23:42 (procedure) [code = Hospital [id number]] Future Scheduled 2022-03-19 BREAST CANCER SCREENING [facility] 04:23:42 [code = BREAST CANCER Hospit al SCREENING] Future Scheduled 2022-03-19 COLONOSCOPY SCREENING [facility] 04:23:42 [code = COLONOSCOPY Hospital SCREENING] Future Scheduled 2022-03-19 INFLUENZA VACCINE [code = [facility] 04:23:42 INFLUENZA VACCINE] Hospital Future Scheduled 2021-12-26 HEPATITIS B VACCINES (1 [facility] 19:34:27 of 3 - 3-dose series) Hospit al [code = HEPATITIS B VACCINES (1 of 3 - 3-dose series)] Future Scheduled 2021-12-26 COVID-19 VACCINE (#1) [facility] 19:34:27 [code = COVID-19 VACCINE Hos pital (#1)] Future Scheduled 2021-12-26 Hepatitis C screening [facility] 19:34:27 (procedure) [code = Hospital 184373200] Future Scheduled 2021-12-26 Screening for malignant [facility] 19:34:27 neoplasm of cervix Hospital (procedure) [code = 516713399] Future Scheduled 2021-12-26 BREAST CANCER SCREENING [facility] 19:34:27 [code = BREAST CANCER Hospit al SCREENING] Future Scheduled 2021-12-26 COLONOSCOPY SCREENING [facility] 19:34:27 [code = COLONOSCOPY Hospital SCREENING] Future Scheduled 2021-12-26 INFLUENZA VACCINE [code = [facility] 19:34:27 INFLUENZA VACCINE] Hospital Future Scheduled [...] VACCINE Me dical Center (#1)] Future Scheduled 2021-04-[address] [facility] 00:00:00 (12+) [code = DEPRESSION Med ical Center SCREENING (12+)] Future Scheduled 2020-01-05 Lipid panel (procedure) [facility] Test 00:00:00 [code = 28676978] Medical Ce nter Future Scheduled 2020-01-05 Lipid panel (procedure) [facility] Test 00:00:00 [code = 36275043] Medical Ce nter Future Scheduled 2020-01-05 Lipid panel (procedure) [facility] Test 00:00:00 [code = 67424519] Medical Ce nter Future Scheduled 2020-01-05 Lipid panel (procedure) [facility] Test 00:00:00 [code = 32206577] Medical Ce nter Future Scheduled 2020-01-05 Lipid panel (procedure) [facility] Test 00:00:00 [code = 75142908] Medical Ce nter Future Scheduled 1996-01-05 Screening for malignant [facility] Test 00:00:00 neoplasm of cervix Medical C enter (procedure) [code = 727565717] Future Scheduled 1996-01-05 Screening for malignant [facility] Test 00:00:00 neoplasm of cervix Medical C enter (procedure) [code = 712028837] Future Scheduled 1996-01-05 Screening for malignant [facility] Test 00:00:00 neoplasm of cervix Medical C enter (procedure) [code = 555352904] Future Scheduled 1996-01-05 Screening for malignant [facility] Test 00:00:00 neoplasm of cervix Medical C enter (procedure) [code = 770267545] Future Scheduled 1996-01-05 Screening for malignant [facility] Test 00:00:00 neoplasm of cervix Medical C enter (procedure) [code = 447534318] Future Scheduled 1994 DTAP/TDAP/TD VACCINES (1 [facility] [...] screening Medical Cent er (procedure) [code = 057441288] Future Scheduled [address] [...] colon Medical Ce nter (procedure) [code = 547121375] Future Scheduled 1975 Screening for malignant [facility] Test 00:00:00 neoplasm of colon Medical Ce nter (procedure) [code = 547681361] Future Scheduled 1975 Screening for malignant [facility] Test 00:00:00 neoplasm of colon Medical Ce nter (procedure) [code = 583834248] Future Scheduled 1975 CT Colonography (combo) [facility] Test 00:00:00 [code = CT Colonography [facility] (combo)] Future Scheduled 1975 Screening for malignant [facility] Test 00:00:00 neoplasm of colon Medical Ce nter (procedure) [code = 975514310] Future Scheduled 1975 Sigmoidoscopy [facility]code [facility] S[facility]oscopy] Medical Cente r Future Scheduled 1975 Screening for malignant [facility] Test 00:00:00 neoplasm of colon Medical Ce nter (procedure) [code = 236666808] Future Scheduled 1975 CT Colonography (combo) [facility] Test 00:00:00 [code = CT Colonography [facility] (combo)] Future Scheduled 1975 Screening for malignant [facility] Test 00:00:00 neoplasm of colon Medical Ce nter (procedure) [code = 291831883] Future Scheduled 1975 Screening for malignant [facility] Test 00:00:00 neoplasm of colon Medical Ce nter (procedure) [code = 724610034] Future Scheduled 1975 Screening for malignant [facility] Test 00:00:00 neoplasm of colon Medical Ce nter (procedure) [code = 371452510] Future Scheduled 1975 Screening for malignant [facility] Test 00:00:00 neoplasm of colon Medical Ce nter (procedure) [code = 348887709] Future Scheduled 1975 Sigmoidoscopy [facility]code [facility]oscopy] Medical Cente r Future Scheduled 1975 Screening for malignant [facility] Test 00:00:00 neoplasm of colon Medical Ce nter (procedure) [code = 710902527] Future Scheduled 1975 CT Colonography (combo) [facility] Test 00:00:00 [code = CT Colonography [facility] (combo)] Future Scheduled 1975 Screening for malignant [facility] Test 00:00:00 neoplasm of colon Medical Ce nter (procedure) [code = 410051389] Future Scheduled 1975 Screening for malignant [facility] Test 00:00:00 neoplasm of colon Medical Ce nter (procedure) [code = 569305879] Future Scheduled 1975 Screening for malignant [facility] Test 00:00:00 neoplasm of colon Medical Ce nter (procedure) [code = 075228851] Future Scheduled 1975 Screening for malignant [facility] Test 00:00:00 neoplasm of colon Medical Ce nter (procedure) [code = 768756398] Future Scheduled 1975 S[facility]oidoscopy [facility]code [facility] S[facility]oscopy] Medical Cente r Future Scheduled 1975 Screening for malignant [facility] Test 00:00:00 neoplasm of colon Medical Ce nter (procedure) [code = 158264744] Future Scheduled 1975 CT Colonography (combo) [facility] Test 00:00:00 [code = CT Colonography [facility] (combo)] Future Scheduled 1975 Screening for malignant [facility] Test 00:00:00 neoplasm of colon Medical Ce nter (procedure) [code = 073265236] Future Scheduled 1975 Screening for malignant [facility] Test 00:00:00 neoplasm of colon Medical Ce nter (procedure) [code = 229398609] Future Scheduled 1975 Screening for malignant [facility] Test 00:00:00 neoplasm of colon Medical Ce nter (procedure) [code = 860590467] Future Scheduled 1975 Screening for malignant [facility] Test 00:00:00 neoplasm of colon Medical Ce nter (procedure) [code = 024984286] Future Scheduled 1975 Screening for malignant [facility] Test 00:00:00 neoplasm of colon Medical Ce nter (procedure) [code = 874001383] Future Scheduled 1975 S[facility]oidoscopy [facility]code [facility] S[facility]oidoscopy] Medical Yue r Future Scheduled 1975 Sigmoidoscopy [facility]code [facility] 00:[facility] Sigmoidoscopy] Medical Yue r Encounters Start End Encounter Admission Attending Care Care Encounter Source Date/Time Date/Time Type Type Clinicians Facility Department ID 2022-03-10 Outpatient Chacon, STLMLC STLC [id number] Common 09:34:02 Manjinder [facility] 2022-02-03 Outpatient Chacon, STLMLC STLC [id number] Common 14:59:00 Manjinder [facility] 2022-02-01 Outpatient Chacon, STLMLC STLC [id number] Common 11:11:01 Manjinder [facility] 2021-08-03 Outpatient Chacon, STLC STLC [id number] Common 16:18:01 Manjinder [facility] 2021-05-07 Outpatient Chacon, STLMLC STLC [id number] Common 13:30:02 Manjinder [facility] 2021-05-01 Outpatient Chacon, STLMLC STLC [id number] Common 08:23:02 Manjinder [facility] 2021-04-29 Outpatient Chacon, STLMLC STLC [id number] Common 14:31:29 Manjinder [facility] 2021-04-29 Outpatient Chacon, STLMLC STLC [id number] Common 14:12:21 Manjinder [facility] 2021-04-29 Outpatient Chacon, STLC STLC [id number] Common 12:44:58 Manjinder [facility] 2021-04-29 Outpatient Chacon, STLC STLC [id number] Common 12:34:29 Manjinder [facility] 2021-04-29 Outpatient Chacno, STLMLC STLC [id number] Common 12:27:16 Manjinder [id number] [facility] 2021-04-29 Outpatient Chacon, STLMLC STLC [id number] Common 12:20:23 Manjinder [id number] [facility] 2021-04-29 Outpatient Chacon, STLMLC STLC [id number] Common 11:59:35 Manjinder 01184 [facility] 2021-04-29 Outpatient Chacon, STLMLC [employer] [id number] Common 11:46:14 Manjinder 08844 [facility] 2021-04-29 Outpatient Chacon, STLC [employer] [id number] Common 11:27:12 Manjinder [id number] [facility] 2022-12-10 2022-12-10 Outpatient Tayler [facility]Z [facility] [id number] [facility] 15:00:00 15:00:00 MAGUI howard [facility] 2022-10-22 2022-10-22 [facility], 1.2.840.1 [id number] 03401 Methodi 14:00:00 23:59:00 Encounter Alonso Dudley 25575.1.[address] 3.430.2.7 Hospit a .3.705603 l .8 2022-10-22 2022-10-22 [facility], 1.2.840.1 [id number] Methodi 14:00:00 23:59:00 Encounter Alonso Buckner 35355.1.[address] 3.430.2.7 Hospit a .3.290564 l .8 2022-10-22 2022-10-22 Office Chayo Lai 1.2.840.1 [id number] Methodi 13:00:00 17:31:[address] 3.430.2.7 Hospit a .3.269183 l .8 2022-10-22 2022-10-22 Office Chayo Lai 1.2.840.1 [id number] 21 [id number] Methodi 13:00:00 17:31:[address] 3.430.2.7 Hospit a .3.975948 l .8 2022-10-22 2022-10-22 [facility], 1.2.840.1 [id number] Methodi 12:52:03 13:59:00 Encounter Alonso Buckner 40981.1.[address] 3.430.2.7 Hospit a .3.142173 l .8 2022-10-22 2022-10-22 [facility], 1.2.840.1 [id number] Methodi 12:52:03 13:59:00 Encounter Alonso Buckner 04921.1.[address] 3.430.2.7 Hospit a .3.028488 l .8 2022-10-14 2022-10-14 Outpatient R EDUARDO ESCALANTE [facility] [id number] [facility] 08:40:00 08:40:00 EDUARDO ESCALANTE [facility] 2022-09-16 2022-09-16 Orders Chayo Lai 1.2.840.1 [id number] Methodi 00:00:00 00:00:[address] 3.430.2.7 Hospit a .3.460939 l .8 2022-09-16 2022-09-16 Orders Chayo Lai 1.2.840.1 [id number] Methodi 00:00:00 00:00:[address] 3.430.2.7 Hospit a .3.998827 l .8 2022-09-15 2022-09-15 Orders Chayo Lai 1.2.840.1 [id number] Methodi 00:00:00 00:00:[address] 3.430.2.7 Hospit a .3.129727 l .8 2022-09-15 2022-09-15 Orders Medina, 1.2.840.1 [id number] 1123 Methodi 00:00:00 00:00:00 Only Shila 81657.1.[address] 3.430.2.7 Hospit a .3.760530 l .8 2022-09-15 2022-09-15 Orders Chayo Lai 1.2.840.1 [id number] 21 [id number] Methodi 00:00:00 00:00:[address] 3.430.2.7 Hospit a .3.808559 l .8 2022-09-15 2022-09-15 Orders Medina, 1.2.840.1 [id number] 0389 Methodi 00:00:00 00:00:00 Only Shila 61833.1.[address] 3.430.2.7 Hospit a .3.089892 l .8 2022-09-06 2022-09-06 Outpatient R NICOLAS AGUAYO [facility] [id number] Univers 10:00:00 10:00:00 NICOLAS AGUAYO kirill [facility] 2022-08-04 2022-08-05 [facility].2.840[facility]1 [id number] [id number] [id number] Methodi 12:20:00 18:30:00 Encounter Lilian Saeed 84411.1.[address] 3.430.2.7 Hospit a .3.825858 l .8 2022-08-04 2022-08-05 [facility] Yogesh Lan 1.2.840.1 1040 83723 [id number] Methodi 12:20:00 18:30:00 Encounter Lilian Saeed 53236.1.[address] 3.430.2.7 Hospit a .3.578755 l .8 2022-08-04 2022-08-04 Travel 1.2.840.1 1.2.500.722 4369 [id number] Methodi 00:00:00 00:00:[address] 3.430.2.7 0.2.7.3.698 Ho spita .3.988030 084.8 l .8 2022-08-04 2022-08-04 Travel 1.2.840.1 1.2.221.303 4316 164167 Methodi 00:00:00 00:00:[address] 3.430.2.7 0.2.7.3.698 Ho spita .3.129791 084.8 l .8 2022-07-22 2022-07-22 Outpatient R [facility] [id number] Univers 08:40:00 09:00:[address] [facility] 2022-07-22 2022-07-22 Office [facility] 1.2.840.114 [id number] Univers 08:40:00 09:00:00 Visit Gulshan [place] 350.1.13.10 i ty of [place] [id number] [address] 2022-07-22 2022-07-22 Letter [facility] 1.2.840.114 [id number] Univers 00:00:00 00:00:00 (Out) Gulshan [place] 350.1.13.10 i ty of [place] [phone] Va dicwi NAL [address] [place] [address] 2022-07-22 2022-07-22 Refill [facility] 1.2.840.114 [id number] Univers 00:00:00 00:00:00 Gulshan [place] 350.1.13.10 i ty of [place] [phone] Va dicwi NAL [address] [place] [address] 2022-07-05 2022-07-05 Telephone [facility] 1.2.277.977 [id number] [id number] Univers 00:00:00 00:00:00 Gulshan [place] 350.1.13.10 i ty [place] [id number] [facility] 9 [facility] 2022-07-03 2022-07-03 Telephone Brooke [facility] 1.2.639.961 2737 13076 Univers 00:00:00 00:00:00 Gulshan [place] 350.1.13.10 i ty of [place] 4.[place].7.2.[place] [phone] [address] 2022-07-02 2022-07-02 Outpatient R BROOKE [facility] EPL [id number] Univers 10:16:00 18:00:[address] of [facility] 2022-07-02 2022-07-02 Hospital Brooke ASH 1.2.840.114 [id number] Univers 10:16:00 18:00:00 Encounter Gulshan NICHOLAS 350.1.13.10 ity of [facility] 4.2.7.2.686 Ronnie as [id number] [facility] [address] 2022-07-02 2022-07-02 Surgery Brooke ASH 1.2.840.114 [id number] Univers 12:45:00 14:45:00 Gulshan NICHOLAS 350.1.13.10 it y of [facility] 4.2.7.2.686 Ronnie as [phone] [facility] [address] 2022-07-02 2022-07-02 Orders Doctor LAUREN 1.2.840.114 [id number] Univers 00:00:00 00:00:00 Only Unassigned, NICHOLAS 350.1.13.10 ity of [place] [facility] 4.2.7.2.686 Ronnie as [phone] [facility] [address] 2022-07-01 2022-07-01 [facility] 1.2.564.997 3411 88475 Univers 00:00:00 00:00:00 Gulshan [place] 350.1.13.10 i ty of [place] 4[place] [phone] Va dicwi NAL 059 [facility] 2022-06-29 2022-06-29 [facility]phone [facility] 1.2.455.292 7561 05635 Univers 00:00:00 00:00:00 Gulshan [place] 350.1.13.10 i ty of [place] 4[place] [phone] Va dical NAL 059 [facility] 2022-06-11 2022-06-11 Telephone ASH Cox 1.2.179.268 4442 35754 Univers 00:00:00 00:00:00 Gulshan NICHOLAS 350.1.13.10 it y of HOSPITAL 4.2.7.2.686 Ronnie as [id number] [facility] [address] 2022-06-09 2022-06-09 Outpatient R [facility] [id number] Univers 08:40:00 09:05:[address] of [facility] 2022-06-09 2022-06-09 Office [facility] 1.2.840.114 [id number] 834 Univers 08:40:00 09:05:19 Visit Angela Huston [place] 350.1.13.10 i ty of [place] 4[place]2.7.[place] [id number] [place] 722949 [facility] 2022-06-09 2022-06-09 Orders Doctor LAUREN 1.2.840.114 [id number] Univers 00:00:00 00:00:00 Only Unassigned, NICHOLAS 350.1.13.10 it[place] [facility] 4.2.7.2.686 Ronnie as [phone] [facility] [address] 2022-06-09 2022-06-09 Letter [facility] 1.2.840.114 [id number] 398 Univers 00:00:00 00:00:00 (Out) Angela L [place] 350.1.13.10 i ty of [place] 4[place] [phone] Va dical NAL 059 [facility] 2022-06-09 2022-06-09 Telephone [facility] 1.2.888.202 [id number] 11875 Univers 00:00:00 00:00:00 Angela L [place] 350.1.13.10 i ty of [place] 4[place].7.[place] [phone] Va pamella TOLBERT 059 [facility] 2022-06-08 2022-06-08 Telephone [facility] 1.2.954.733 0327 80209 Univers 00:00:00 00:00:00 Gulshan [place] 350.1.13.10 i ty of [place] 4.[place].2.[place] [phone] [address] 2022-06-02 2022-06-02 Outpatient R NICOLAS AGUAYO [facility] [id number] Univers 13:30:00 13:30:00 NICOLAS AGUAYO [facility] 2022-05-27 2022-05-27 Telephone [facility] 1.2.056.796 4759 99804 Univers 00:00:00 00:00:00 [facility] 350.1.13.10 it y of [place] 4.2.7.2.686 Ronnie as MITUL?BLEA [id number] [address] 2022-05-27 2022-05-27 Telephone [facility] 1.2.863.794 6941 33098 Univers 00:00:00 00:00:00 Gulshan [place] 350.1.13.10 i ty of [place] 4[place] [id number] [address] 2022-05-25 2022-05-25 Outpatient R AVERY [facility] [id number] [id number] Univers 10:30:00 10:30:00 DINO howard [facility] 2022-05-23 2022-05-24 Outpatient U DAYSI [facility] [id number] Univers 23:33:00 20:15:00 YUMIKO [facility]ard [facility] 2022-05-23 2022-05-24 Emergency Nahun Ortez [facility] 1.2.840. 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 Services Technician Romulo, [facility] 1.2.8 40.114 [id number] Univers 09:30:00 09:45:00 Visit Gulshan Cox 350.1.13.10 ity of [place] 4[place]2.7.2.[place] [id number] [facility] 353 [facility] 2022-05-20 2022-05-20 Office Brooke [facility] 1.2.840.114 [id number] Univers 08:00:00 08:27:27 Visit Gulshan [place] 350.1.13.10 i ty of [place] 4.2.7.2.[place] [id number] [address] 2022-05-20 2022-05-20 Outpatient R BROOKE [facility] [id number] Univers 08:00:00 08:27:[address] of [facility] 2022-05-20 2022-05-20 Orders Doctor AGUILAR 1.2.840.114 [id number] Univers 00:00:00 00:00:00 Only Unassigned, NICHOLAS 350.1.13.10 ity of [place] [facility] 4.2.7.2.686 Ronnie as [phone] [address] 2022-05-18 2022-05-18 Office Nadia [facility] 1.2.840.114 [id number] Univers 08:40:00 09:26:57 Visit Angela [place] 350.1.13.10 i ty of [place] 4[place] [phone] [facility] 059 [facility] 2022-05-18 2022-05-18 Outpatient R NADIA [facility] [id number] Univers 08:40:00 09:26:57 ANGELA [facility] 2022-05-11 2022-05-11 Telephone [facility] 1.2.111.534 [id number] [id number] Univers 00:00:00 00:00:00 Sendil Sheyla [place] 350.1.13.10 [facility] 4[place] [phone] [address] 2022-05-10 2022-05-10 Outpatient [facility] [id number] Univers 09:00:00 09:00:00 SENDIL [facility] 2022-04-30 2022-04-30 (TEL) STLMLC STLMLC [id number] Co mmon 00:00:00 00:00:00 [facility] 2022-04-22 2022-04-22 (TEL) STLMLC STLMLC [id number] Co mmon 00:00:00 00:00:00 [facility] 2022-04-22 2022-04-22 Telephone [facility] 1.2.769.275 [id number] Univers 00:00:00 00:00:00 Sendil Sheyla [place] 350.1.13.10 [facility] [place] [phone] Va dicwi NAL [address] [place] [address] 2022-04-20 2022-04-20 (TEL) STLC STLMLC [id number] Co mmon 00:00:00 00:00:00 [facility] 2022-04-13 2022-04-13 Telephone [facility] 1.2.223.562 [id number] Univers 00:00:00 00:00:00 Sendil Sheyla [place] 350.1.13.10 [facility] 4[place] [phone] Va dicwi NAL [address] [place] [address] 2022-04-12 2022-04-12 Outpatient [facility] [id number] Univers 07:44:55 23:59:00 SENDIL ity [facility] 2022-03-24 2022-03-24 (TEL) STLC STLC [id number] Co mmon 00:00:00 00:00:00 [facility] 2022-03-23 2022-03-23 Out[facility] [id number] Univers 16:00:00 16:00:00 SENDIL ity [facility] 2022-03-17 2022-03-17 Outpatient R [facility] [id number] Univers 15:30:00 16:18:08 SENDIL ity [facility] 2022-03-17 2022-03-17 Office [facility] 1.2.840.114 [id number] Univers 15:30:00 16:18:08 Visit Sendil Sheyla [place] 350.1.13.10 ity of [place] 4[place] [phone] [place] 397269 [facility] 2022-03-17 2022-03-17 Orders Doctor LAUREN 1.2.840.114 [id number] Univers 00:00:00 00:00:00 Only Unassigned, NICHOLAS 350.1.13.10 ity of [place] [facility] 4.2.7.2.686 Ronnie as [phone] [address] 2022-03-12 2022-03-12 (TEL) STLC STLC [id number] Co mmon 00:00:00 00:00:00 [facility] 2022-02-18 2022-02-18 Documentat Katherine, 1.2.840.1 [id number] 21 [id number] Methodi 00:00:00 00:00:00 ion Kathryn 82803.1.[address] [place] 3.430.2.7 Hospit a .3.199263 l .8 2022-02-18 2022-02-18 Documentat Katherine, 1.2.840.1 [id number] 21 [id number] Methodi 00:00:00 00:00:00 ion Kathryn 44113.1.[address] [place] 3.430.2.7 Hospit a .3.729123 l .8 2021-10-19 2021-12-27 Office Sharon, 1.2.840.1 [id number] 7573 Methodi 13:30:00 00:12:59 Visit Alonso Buckner 93468.1.[address] 3.430.2.7 Hospit a .3.833395 l .8 2021-11-13 2021-11-13 OFFICE STLMLC STLMLC [id number] Co mmon 00:00:00 00:00:00 VISIT EST Spir it PT LEVEL 3 - [facility] 2021-10-26 2021-10-26 (TEL) STLMLC STLMLC [id number] Co mmon 00:00:00 00:00:00 [facility] 2021-10-19 2021-10-19 [facility] Sharon, 1.2.840.1 [id number] 88558 Methodi 13:21:54 23:59:00 Encounter Alonso Buckner 19357.1.[address] 3.430.2.7 Hospit a .3.382274 l .8 2021-10-19 2021-10-19 Travel 1.2.840.1 1.2.340.188 [id number] Methodi 00:00:00 00:00:[address] 3.430.2.7 0.2.7.3.698 Ho spita .3.965940 084.8 l .8 2021-10-14 2021-10-14 Outpatient Tay[facility] [id number] [facility] 09:30[facility]00 [facility] 2021-10-14 Out[facility] Tay[facility] [id number] [facility] 09:30[facility]00 [facility]10[facility] 2021-10-13 (TEL) STLMLC STLMLC [id number] Co mmon 00:00:00 00:00:00 [facility] 2021-09-30 2021-09-30 OFFICE STLMLC STLMLC [id number] Co mmon 00:00:00 00:00:00 VISIT [facility] PT - [facility] LEVEL 5 [facility] 2021-09-29 2021-09-29 Travel 1.2.840.1 1.2.227.536 [id number] Methodi 00:00:00 00:00:[address] 3.430.2.7 0.2.7.3.698 Ho spita .3.904573 084.8 l .8 2021-09-29 2021-09-29 Orders Katherine, 1.2.840.1 [id number] 71276 Methodi 00:00:00 00:00:00 Only Kathryn 97491.1.[address] [place] 3.430.2.7 Hospit a .3.714623 l .8 2021-09-19 2021-09-19 Nurse LAUREN Nguyễn 1.2.840.114 [id number] 00 Univers 00:00:00 00:00:00 [facility] Ronnie as [id number] [address] 2021-09-15 2021-09-15 Orders Katherine, 1.2.840.1 [id number] Methodi 00:00:00 00:00:00 Only Kathryn 69058.1.[address] [place] 3.430.2.7 Hospit a .3.940359 l .8 2021-09-15 2021-09-15 Orders Carol, 1.2.840.1 [id number] 3417 Methodi 00:00:00 00:00:00 Only Shila 07967.1.[address] 3.430.2.7 Hospit a .3.881883 l .8 2021-09-14 2021-09-14 (TEL) STLMLC STLMLC [id number] Co mmon 00:00:00 00:00:00 [facility] [facility] 2021-09-14 2021-09-14 Telephone Salena [facility] 1.2.895.697 [id number] Univers 00:00:00 00:00:00 [facility]ly [facility] 350.1.13.10 ity of [place] 4.2.7.2.686 Airam ESC[place]O [phone] [place] [address] Branch OFFICE BUILDING 2021-09-14 2021-09-14 Orders Katherine, 1.2.840.1 [id number] Methodi 00:00:00 00:00:00 Only Kathryn 86818.1.[address] [place] 3.430.2.7 Hospit a .3.526341 l .8 2021-09-14 2021-09-14 Documentat Medina, 1.2.840.1 [id number] Methodi 00:00:00 00:00:00 ion Shila 84525.1.[address] 3.430.2.7 Hospit a .3.733281 l .8 2021-08-26 2021-09-09 [facility] 1.2.840.1 [id number] 731 0000395 Methodi 21:45:00 20:00:00 Encounter Acacia 10712.1.[address] 3.430.2.7 Hospit a .3.287787 l .8 2021-09-09 2021-09-09 (TEL) STLMLC STLMLC [id number] Co mmon 00:00:00 00:00:00 [facility] 2021-08-08 2021-08-26 [facility] 1.2.840.1 [id number] Methodi 18:19:00 21:44:00 Encounter Fredi Schmid 71926.1.[address] [facility] 3.430.2.7 Hospita Lauren Francois .3.315166 l Richelle Lowry .8 2021-08-19 2021-08-19 Anesthesia [facility], 1.2.840.1 [id number] 721 [id number] Methodi 11:42:00 16:30:00 Event Alex 24451.1.[address] Art 3.430.2.7 Hospit a .3.265352 l .8 2021-08-19 2021-08-19 Surgery Sharon, 1.2.840.1 [id number] 0274 Methodi 10:55:00 15:10:00 Alonso Buckner 33067.1.[address] 3.430.2.7 Hospit a .3.851047 l .8 2021-08-13 2021-08-13 (TEL) STLMLC STLMLC [id number] Co mmon 00:00:00 00:00:00 [facility] 2021-08-12 2021-08-12 (TEL) STLMLC STLMLC [id number] Co mmon 00:00:00 00:00:00 [facility] 2021-08-11 2021-08-11 (TEL) STLC STLMLC [id number] Co mmon 00:00:00 00:00:00 [facility] 2021-08-08 2021-08-08 Travel 1.2.840.1 1.2.342.944 [id number] Methodi 00:00:00 00:00:[address] 3.430.2.7 0.2.7.3.698 spita .3.235328 084.8 l .8 2021-08-07 2021-08-07 (TEL) STLC STLMLC [id number] Co mmon 00:00:00 00:00:00 [facility] 2021-08-04 2021-08-04 (TEL) STLC STLMLC [id number] Co mmon 00:00:00 00:00:00 [facility] 2021-08-03 2021-08-03 Telephone LAUREN Martino 1.2.113.658 [id number] [facility] 00:00:00 00:00:00 [facility]mani [facility] 4.2.7.2.686 Ronnie as [phone] [facility] 008 Branch 2021-07-23 2021-07-23 Outpatient R [facility] [id number] Univers 13:00:00 14:06:54 SENDIL ity [facility] 2021-07-23 2021-07-23 Office Martino [facility] 1.2.840.114 [id number] Univers 13:00:00 14:06:54 Visit Imani [place] 350.1.13.10 [facility] [place] [phone] [place] dical [facility] 2021-06-23 2021-06-23 (TEL) STLMLC STLMLC [id number] Co mmon 00:00:00 00:00:00 [facility] 2021-05-24 2021-05-24 Nurse LAUREN Simms 1.2.840.114 [id number] Univers 00:00:00 00:00:00 Triage Rupinder PETERSON 350.1.13.[address] [facility] 4.2.7.2.686 Ronnie as [phone] [facility] 019 Branch 2021-05-23 2021-05-23 (TEL) STLMLC STLMLC [id number] Co mmon 00:00:00 00:00:00 [facility] 2021-05-14 2021-05-14 (TEL) STLMLC STLMLC [id number] Co mmon 00:00:00 00:00:00 [facility] 2021-05-07 2021-05-07 OFFICE STLMLC STLMLC [id number] Co mmon 00:00:00 00:00:00 VISIT [facility] LEVEL 4 [facility] 2021-05-05 2021-05-05 (TEL) STLMLC STLMLC [id number] Co mmon 00:00:00 00:00:00 [facility] 2021-05-01 2021-05-01 (TEL) STLMLC STLMLC [id number] Co mmon 00:00:00 00:00:00 [facility] 2021-04-10 2021-04-10 (TEL) STLMLC STLMLC [id number] Co mmon 00:00:00 00:00:00 [facility] 2021-04-06 2021-04-06 (TEL) STLMLC STLMLC [id number] Co mmon 00:00:00 00:00:00 [facility] 2021-04-06 2021-04-06 OFFICE STLC STLC [id number] Co mmon 00:00:00 00:00:00 VISIT [facility] LEVEL 4 [facility] 2021-02-12 2021-02-12 (TEL) STLMLC STLMLC [id number] Co mmon 00:00:00 00:00:00 [facility] 2021-02-09 2021-02-09 Emergency [facility] [id number] Univers 21:28:00 23:35:[address] [facility] 2021-02-09 2021-02-09 Emergency [facility] 1.2.469.800 [id number] Univers 21:28:00 23:35:00 Fannie [place] 350.1.13.10 i ty [facility] 4.2.7.2.686 [facility] [phone] [facility] 084 Branch 2021-02-09 2021-02-09 Orders Doctor LAUREN 1.2.840.114 [id number] Univers 00:00:00 00:00:00 Only Unassigned, NICHOLAS 350.1.13.10 ity [facility] 4.2.7.2.686 Ronnie [phone] [facility] 009 Branch 2021-01-29 2021-01-29 (TEL) STLC STLC [id number] Co mmon 00:00:00 00:00:00 [facility] 2021-01-27 2021-01-27 Office Salena [facility] 1.2.840.114 [id number] Univers 08:24:21 09:10:00 Visit Imani Cunningham 350.1.13.10 ity [facility] 4.2.7.2.[place] [phone] Va dical nal 059 [facility] 2021-01-27 2021-01-27 Outpatient R [facility] [id number] Univers 08:30:00 08:30:[address] of [facility] 2021-01-27 2021-01-27 Orders Doctor AGUILAR 1.2.840.114 [id number] Univers 00:00:00 00:00:00 Only Unassigned, NICHOLAS 350.1.13.10 ity of [facility] 4.2.7.2.686 Ronnie as [phone] [address] 2021-01-27 2021-01-27 Letter Salena [facility] 1.2.840.114 [id number] 00:00:00 00:00:00 (Out) Sendil Sheyla Cunningham 350.1.13.10 it[place] of [place] [phone] Va dical nal 9 [facility] 2021-01-25 2021-01-25 (TEL) STLMLC STLMLC [id number] Co mmon 00:00:00 00:00:00 [facility] 2021-01-22 2021-01-22 (TEL) STLMLC STLMLC [id number] Co mmon 00:00:00 00:00:00 [facility] 2021-01-19 2021-01-19 (TEL) STLMLC STLMLC [id number] Co mmon 00:00:00 00:00:00 [facility] 2020-12-10 2020-12-10 OFFICE STLMLC STLMLC [id number] Co mmon 00:00:00 00:00:00 VISIT [facility] LEVEL 4 [facility] 2020-11-21 2020-11-21 (TEL) STLMLC STLMLC [id number] Co mmon 00:00:00 00:00:00 [facility] 2020-11-18 2020-11-18 (TEL) STLMLC STLMLC [id number] Co mmon 00:00:00 00:00:00 [facility] 2020-11-05 2020-11-05 Outpatient STLMLC STLMLC [id number] Common 00:00:00 00:00:00 [facility] 2020-10-30 2020-10-30 Outpatient Tayler [facility] [id number] Univers 11:30:00 11:30:[facility] 2020-09-15 2020-09-15 Outpatient STLMLC STLMLC [id number] Common 00:00:00 00:00:00 [facility] 2020-09-04 2020-09-04 Outpatient Tayler MARTINO [facility] [id number] Univers 11:00:00 11:00:00 [facility] 2020-08-20 2020-08-20 Outpatient STLMLC STLMLC [id number] Common 00:00:00 00:00:00 [facility] 2020-08-19 2020-08-19 Outpatient STLMLC STLMLC [id number] Common 00:00:00 00:00:00 [facility] 2020-07-15 2020-07-15 Outpatient Tayler MARTINO [facility] [id number] Univers 10:00:00 10:00:00 [facility] 2020-07-11 2020-07-11 Outpatient STLMLC STLMLC [id number] Common 00:00:00 00:00:00 [facility] 2020-07-10 2020-07-10 Outpatient STLMLC STLMLC [id number] Common 00:00:00 00:00:00 [facility] 2020-07-02 2020-07-02 Outpatient STLMLC STLMLC [id number] Common 00:00:00 00:00:00 [facility] 2020-06-29 2020-06-29 Outpatient STLMLC STLMLC [id number] Common 00:00:00 00:00:00 [facility] 2020-06-10 2020-06-10 Outpatient STLMLC STLMLC [id number] Common 00:00:00 00:00:00 [facility] 2020-06-03 2020-06-03 Outpatient STLMLC STLMLC [id number] Common 00:00:00 00:00:00 [facility] 2020-06-02 2020-06-02 Telephone [facility] 1.2.923.725 [id number] [facility] 00:00:00 00:00:00 Imani Cunningham 350.1.13.10 it[place] of [place] [phone] Va dical [place] [address] [place] [address] 2020-06-02 2020-06-02 [facility] 1.2.316.748 [id number] 00:00:00 00:00:00 Imani Cunningham 350.1.13.10 [place] 4.2.7.2.686 Professio [phone] [address] 2020-05-31 2020-05-31 Outpatient STLMLC STLMLC [id number] Common 00:00:00 00:00:00 [facility] 2020-05-07 2020-05-07 Outpatient STLMLC STLMLC [id number] Common 00:00:00 00:00:00 [facility] 2020-05-05 2020-05-05 [facility] 1.2.215.452 [id number] [facility] 00:00:00 00:00:00 Imani Cunningham 350.1.13.10 it[place].2.[place] [phone] Me dical nal [address] [place] [address] 2020-05-05 2020-05-05 [facility] 1.2.189.729 [id number] 00:00:00 00:00:00 Imani Cunningham 350.1.13.10 [place] 4.2.7.2.686 Professio [phone] [address] 2020-05-02 2020-05-02 [facility] 1.2.840.114 [id number] Univers 08:58:15 23:59:00 Encounter [facility] 350.1.13.10 it[place] [phone] [place] dicterry SANTOS [address] [place] [address] 2020-05-02 2020-05-02 [facility] 1.2.840.114 [id number] 08:58:15 23:59:00 Encounter Sendil [facility] 350.1.13.10 CARE 4.2.7.2.686 CENTER AT [phone] [address] 2020-05-02 2020-05-02 Outpatient R [facility] [id number] Univers 09:00:00 09:00:00 SENDIL ity [facility] 2020-05-02 2020-05-02 [facility] 1.2.840.114 [id number] Univers 08:32:07 08:57:00 Encounter Sendil [facility] 350.1.13.10 it[place] [phone] Va pamella [address] 2020-05-02 2020-05-02 [facility] 1.2.840.114 [id number] [facility] 08:32:07 08:57:00 Encounter Sendil [facility] 350.1.13.10 CARE 4.2.7.2.686 CENTER AT [phone] [address] 2020-05-02 2020-05-02 [facility] 1.2.840.114 [id number] Univers 08:31:50 08:31:50 Encounter Sendil [facility] 350.1.13.10 ity [place]2.[place] [phone] Va pamella [address] 2020-05-02 2020-05-02 [facility] 1.2.840.114 [id number] 08:31:50 08:31:50 Encounter Sendil [facility] 350.1.13.10 CARE 4.2.7.2.686 CENTER AT [phone] [address] 2020-05-02 2020-05-02 [facility] 1.2.840.114 [id number] Univers 08:31:12 08:31:12 Encounter Sendil K.HDonya SPECIALTY 350.1.13.10 ity [place]2.[place] [phone] Va dical [address] 2020-05-02 2020-05-02 [facility] 1.2.840.114 [id number] 08:31:12 08:31:12 Encounter Sendil K.HDonya SPECIALTY 350.1.13.10 CARE 4.2.7.2.686 CENTER AT [phone] [address] 2020-04-24 2020-04-24 Outpatient [facility] [id number] Univers 10:30:00 10:30:[address] [facility] 2020-04-16 2020-04-16 Outpatient STLMLC STLMLC [id number] Common 00:00:00 00:00:00 [facility] 2020-04-11 2020-04-11 Orders Doctor LAUREN 1.2.840.114 [id number] Univers 00:00:00 00:00:00 Only Unassigned, NICHOLAS 350.1.13.10 ity of [facility] 4.2.7.2.686 Ronnie as [phone] [address] 2020-04-11 2020-04-11 Orders Doctor LAUREN 1.2.840.114 [id number] 00:00:00 00:00:00 Only Unassigned, NICHOLAS 350.1.13.10 [facility] 4.2.7.2.686 [phone] [id number] 2020-04-10 2020-04-10 [facility] 1.2.301.355 [id number] Univers 00:00:00 00:00:00 Sendil K.HDonya Cunningham 350.1.13.10 it[place] of [place].2.[place] [phone] Va dic[address] 2020-04-09 2020-04-09 [facility] 1.2.694.682 [id number] Univers 00:00:00 00:00:00 Imani Cunningham 350.1.13.10 it[place] of [place].7.2.[place] [phone] [address] 2020-04-08 2020-04-08 [facility] 1.2.896.372 [id number] Univers 00:00:00 00:00:00 Imani Cunningham 350.1.13.10 [place] of [place].7.2.[place] [phone] [address] 2020-04-08 2020-04-08 [facility] 1.2.615.781 [id number] 00:00:00 00:00:00 Imani Cunningham 350.1.13.10 [place] 4.2.7.2.686 Professio [phone] [address] 2020-04-01 2020-04-01 [facility] 1.2.840.114 [id number] Univers 10:44:06 12:00:21 Visit Imani Cunningham 350.1.13.10 it[place] of [place] 4[place]2.7.2.[place] [phone] [address] 2020-04-01 2020-04-01 Outpatient R [facility] [id number] Univers 11:00:00 11:00:[address] of [facility] 2020-04-01 2020-04-01 Outpatient [facility] [id number] Common 00:00:00 00:00:00 [facility] 2020-04-01 2020-04-01 [facility]phone [facility] 1.2.105.059 [id number] Univers 00:00:00 00:00:00 Imani Cunningham 350.1.13.10 it[place] of [place] 4[place].2.[place] [phone] Va dical nal 059 [facility] 2020-03-31 2020-03-31 Outpatient STLMLC STLMLC [id number] Common 00:00:00 00:00:00 [facility] 2020-03-24 2020-03-24 Outpatient STLMLC STLMLC [id number] Common 00:00:00 00:00:00 [facility] 2020-03-17 2020-03-17 Outpatient STLMLC STLMLC [id number] Common 00:00:00 00:00:00 [facility] 2020-03-17 2020-03-17 Telephone Salena [facility] 1.2.528.872 [id number] Univers 00:00:00 00:00:00 Imani Cunningham 350.1.13.10 [facility] 4.2.7.2.[place] [phone] Va dical [place]al [address] [place] [address] 2020-03-12 2020-03-12 Outpatient STLMLC STLMLC [id number] Common 00:00:00 00:00:00 [facility] 2020-03-11 2020-03-11 Outpatient STLMLC STLMLC [id number] Common 00:00:00 00:00:00 [facility] 2020-03-03 2020-03-03 Outpatient STLMLC STLMLC [id number] Common 00:00:00 00:00:00 [facility] 2020-02-14 2020-02-14 Outpatient STLMLC STLMLC [id number] Common 00:00:00 00:00:00 [facility] 2020-02-11 2020-02-11 Outpatient STLMLC STLMLC [id number] Common 00:00:00 00:00:00 [facility] 2020-02-08 2020-02-08 Outpatient STLMLC STLMLC [id number] Common 00:00:00 00:00:00 [facility] 2020-02-01 2020-02-01 Outpatient R [facility] [id number] Univers 16:00:00 16:00:[address] [facility] 2020-02-01 2020-02-01 Nurse Visit, Adc Nurse [facility] 1.2.840.1 14 [id number] Univers 07:53:14 08:46:38 Visit Imani Martino 350.1.13. 10 it[place] of [place] 4[place].7.2.[place] [phone] Va dical nal 9 [facility] 2020-01-30 2020-01-30 Outpatient STLMLC STLMLC [id number] Common 00:00:00 00:00:00 [facility] 2020-01-29 2020-01-29 Office [facility] 1.2.840.114 [id number] Univers 11:10:54 12:45:41 Visit Imani Cunningham 350.1.13.10 ity [facility] 4.2.7.2.686 [place] Professdavonet [phone] [address] 2020-01-29 2020-01-29 Outpatient R SALENA SDYAAKOV [facility] [id number] Univers 11:30:00 11:30:00 SENDIL ity [facility] 2020-01-29 2020-01-29 Orders Doctor LAUREN 1.2.840.114 [id number] Univers 00:00:00 00:00:00 Only Unassigned, NICHOLAS 350.1.13.10 ity of [place] [facility] 4.2.7.2.686 Ronnie as [phone] [address] 2020-01-23 2020-01-23 Outpatient STLMLC STLMLC [id number] Common 00:00:00 00:00:00 [facility] 2020-01-22 2020-01-22 Outpatient STLMLC STLMLC [id number] Common 00:00:00 00:00:00 [facility] 2020-01-16 2020-01-16 Orders Doctor LAUREN 1.2.840.114 [id number] Univers 00:00:00 00:00:00 Only Unassigned, NICHOLAS 350.1.13.10 [place] [facility] 4.2.7.2.686 Ronnie as [phone] [address] 2020-01-15 2020-01-15 Outpatient STLMLC STLMLC [id number] Common 00:00:00 00:00:00 [facility] 2020-01-10 2020-01-10 Telephone Salena [facility] 1.2.942.616 [id number] Univers 00:00:00 00:00:00 Imani Cunningham 350.1.13.10 ity [facility] 4.2.7.2.[place] [phone] Va dical nal 059 [facility] 2020-01-09 2020-01-09 Outpatient STLMLC STLMLC [id number] Common 00:00:00 00:00:00 [facility] 2020-01-07 2020-01-07 Orders Doctor AGUILAR 1.2.840.114 [id number] [facility] 00:00:00 00:00:00 Only Unassigned, NICHOLAS 350.1.13.10 ity of [facility] 4.2.7.2.686 Ronnie as [phone] [address] 2020-01-07 2020-01-07 Outpatient STLMLC STLMLC [id number] Common 00:00:00 00:00:00 [facility] 2020-01-03 2020-01-03 Office [facility] 1.2.562.298 [id number] Univers 11:07:14 12:05:52 Visit Angelinamacario Cunningham 350.1.13.10 i ty [facility] 4.2.7.2.[place] [phone] Va dical nal 188 [facility] 2020-01-03 2020-01-03 Outpatient R JONI [facility] [id number] Univers 11:15:00 11:15:00 ANGELINA howard [facility] 2020-01-01 2020-01-01 Outpatient R JONI [facility] [id number] Univers 15:30:00 15:30:00 ANGELINA howard [facility] 2019-12-19 2019-12-19 Outpatient [facility] [id number] Common 16:30:00 16:30:00 t [employer] Spir it Drive [facility] 2019-12-18 2019-12-18 Outpatient [facility] [id number] Common 13:33:00 13:33:00 t [employer] Food [facility] it Drive [facility] 2019-12-18 2019-12-18 Laboratory Pc, Adc Echo Room 1 - [facility] 1 .2.840.114 [id number] Univers 09:52:20 11:27:29 Only Imnai Martino 350.1.13. 10 [place] of [place]2.7.2.[place] [phone] Va dical nal 9 [facility] 2019-12-18 2019-12-18 Outpatient R [facility] [id number] Univers 10:00:00 10:00:[address] [facility] 2019-12-13 2019-12-13 Office Salena [facility] 1.2.840.114 [id number] Univers 10:43:37 11:48:34 Visit Imani Cunningham 350.1.13.10 it[place] of [place] 4[place].2.[place] [phone] [place] dical [place]al [address] [place] [address] 2019-12-13 2019-12-13 Outpatient R SALENA [facility] [id number] Univers 11:00:00 11:00:00 SENDIL ity [facility] 2019-12-13 2019-12-13 Orders Doctor LAUREN 1.2.840.114 [id number] Univers 00:00:00 00:00:00 Only Unassigned, NICHOLAS 350.1.13.10 [place] [facility] 4.2.7.2.686 Ronnie as [phone] [address] 2019-12-13 2019-12-13 Refill [facility] 1.2.840.114 [id number] Univers 00:00:00 00:00:00 Imani Cunningham 350.1.13.10 [place] of [place] 4[place].2.[place] [phone] Va dical nal 059 [facility] 2019-12-09 2019-12-09 Outpatient [facility] [id number] Common 17:43:00 17:43:[address] [facility] 2019-12-04 2019-12-04 Outpatient Tayler QUINONES [facility] [id number] Univers 13:30:00 13:30:00 ANGELINA howard [facility] 2019-11-26 2019-11-26 Outpatient [facility] [id number] Common 15:17:00 15:17:[address] [facility] 2019-11-24 2019-11-24 Outpatient [facility] [id number] Common 15:24:00 15:24:[address] [facility] 2019-11-22 2019-11-22 Outpatient [facility] [id number] Common 16:03:00 16:03:[address] [facility] 2019-11-19 2019-11-19 Outpatient [facility] [id number] Common 14:35:00 14:35:[address] [facility] 2019-11-16 2019-11-16 Outpatient [facility] [id number] Common 09:15:00 09:15:[address] [facility] 2019-11-09 2019-11-09 Outpatient SLSL SL[facility] [id number] [facility] 00:00:00 00:00:00 2019-11-08 2019-11-08 Outpatient [facility] [id number] Common 09:12:00 09:12:[address] [facility] 2019-11-08 2019-11-08 Outpatient SLSL SL[facility] [id number] [facility]SL 00:00:00 00:00:00 2019-11-08 2019-11-08 Outpatient EL [facility]SL [facility] [id number] [facility] 00:00:00 00:00:00 2019-11-02 2019-11-02 Outpatient SLSL [facility] [id number] [facility]SL 00:00:00 00:00:00 2019-11-01 2019-11-01 Outpatient SLSL [facility] [id number] [facility]SL 00:00:00 00:00:00 2019-11-01 2019-11-01 Outpatient EL SLSL SLSL [id number] [facility]SL 00:00:00 00:00:00 2019-10-30 2019-10-30 Outpatient [facility] [id number] Common 17:05:00 17:05:[address] [facility] 2019-10-29 2019-10-29 Outpatient [facility] [id number] Common 15:04:00 15:04:[address] [facility] 2019-10-29 2019-10-29 Outpatient [facility] [id number] Common 08:06:00 08:06:[address] [facility] 2019-10-23 2019-10-23 [facility] [id number] Univers 15:00:23 15:30:23 Visit Angelina Cunningham [id number] i po [facility] [id number] [phone] [place] [address] 2019-10-23 2019-10-23 [facility] [id number] Univers 15:00:00 15:00:00 ANGELINA howard [facility] 2019-10-23 2019-10-23 Orders Doctor AGUILAR [id number] Univers 00:00:00 00:00:00 Only Unassigned, NICHOLAS [id number] ity of [facility] [id number] Ronnie as [phone] [address] 2019-10-22 2019-10-22 [facility] [id number] Common 12:23:00 12:23:[address] [facility] 2019-10-18 2019-10-18 [facility] [id number] Common 14:30:00 14:30:[address] [facility] 2019-09-20 2019-09-20 Outpatient Asher Sterlingt [id number] Common 09:00:00 09:00:00 t [employer] Spir it Drive [facility] 2019-09-20 2019-09-20 Orders Doctor LAUREN [id number] Univers 00:00:00 00:00:00 Only Unassigned, NICHOLAS [id number] ity of [facility] [id number] Ronnie as [phone] [facility] [address] 2018-11-28 2018-11-28 Telephone Leeann [facility] [id number] Univers 00:00:00 00:00:00 Ismael Tagasauris [id number] it y of Surgical [id number] Ronnie as Specialti [phone] [place] dical es [address] [facility] 2018-11-27 2018-11-27 Telephone Gurpreet [facility] [id number] Univers 00:00:00 00:00:00 [employer] [id number] it y of Surgical [id number] Ronnie as Specialti [phone] [place]ical es 198 [facility] Results Test Description Test Time Test Comments Results Result Comments Source ECG 12 lead 2022-08-05 22:59:20 Test Item Value Reference Range Interpretation Comme nts Ventricular rate (test code = 253) 62 Atrial rate (test code = 255) 62 [place] interval (test code = 266) 196 QRSD [...] of 04-AUG-2022 16:36,-No significant change was found- [facility] [id number] 22:59:20 Test Item Value Reference Range Interpretation Comments Ventricular rate (test 62 code = 253) Atrial rate (test code 62 = 255) [place] interval (test code 196 = 266) QRSD [...] of 04-AUG-2022 16:36,-No significant change was found- [facility] 12 [id number] 22:59:20 Test Item Value Reference Range Interpretation Comments Ventricular rate (test 62 code = 253) Atrial rate (test code 62 = 255) [place] interval (test code 196 = 266) QRSD [...] significant change was found- [facility] METABOLIC PANEL (NA, K, CL, CO2, GLUCOSE, BUN, CREATININE, CA)2022-07-02 17:07:27 Test Item Value Reference Range Interpretation Comments NA (test code = 137 mmol/L 135-145 7707791497) K (test code = 3.2 mmol/L 3.5-5.0 L 0816727845) CL (test code = 100 mmol/L 98-108 2520765971) CO2 TOTAL (test code = 30 mmol/L 23-31 6984613692) AGAP (test code = 7 2-16 1938534551) BUN (test code = 16 mg/dL 7-23 0770723863) GLUCOSE (test code = 104 mg/dL 70-110 5199383048) CREATININE (test code = 0.77 mg/dL 0.50-1.04 9412984471) CALCIUM (test code = 8.8 mg/dL 8.6-10.6 8267997100) eGFR (test code = 80.4 mL/min/1.73m2 9688274384) BEHZAD (test code = BEHZAD) Association of [...] tests). Lab Interpretation Abnormal (test code = 72060-3) [facility] (NA, K, CL, CO2, GLUCOSE, BUN, CREATININE, CA)2022-07-02 17:07:27 Test Item Value Reference Range Interpretation Comments NA (test code = 137 mmol/L 135-145 9336037873) K (test code = 3.2 mmol/L 3.5-5.0 L 9501377677) CL (test code = 100 mmol/L 98-108 7599033688) CO2 TOTAL (test code = 30 mmol/L 23-31 8186992300) AGAP (test code = 7 2-16 0520400715) BUN (test code = 16 mg/dL - 9545383143) GLUCOSE (test code = 104 mg/dL 70-110 5205435858) CREATININE (test code = 0.77 mg/dL 0.50-1.04 8476118304) CALCIUM (test code = 8.8 mg/dL 8.6-10.6 1018945353) eGFR (test code = 80.4 mL/min/1.73m2 6751308389) BEHZAD (test code = BEHZAD) Association of [...] tests). Lab Interpretation Abnormal (test code = 93536-7) [facility] METABOLIC PANEL (NA, K, CL, CO2, GLUCOSE, BUN, CREATININE, CA)2022-07-02 17:07:27 Test Item Value Reference Range Interpretation Comments NA (test code = 137 mmol/L 135-145 3932976493) K (test code = 3.2 mmol/L 3.5-5.0 L 7733379901) CL (test code = 100 mmol/L 98-108 4598616970) CO2 TOTAL (test code = 30 mmol/L 23-31 3287116802) AGAP (test code = 7 2-16 7598126706) BUN (test code = 16 mg/dL 7-23 6527820591) GLUCOSE (test code = 104 mg/dL 70-110 1591638373) CREATININE (test code = 0.77 mg/dL 0.50-1.04 7358191162) CALCIUM (test code = 8.8 mg/dL 8.6-10.6 5544358660) eGFR (test code = 80.4 mL/min/1.73m2 5059902150) BEHZAD (test code = BEHZAD) Association of [...] tests). Lab Interpretation Abnormal (test code = 46880-3) [facility] / [id number] 16:54:42 Test Item Value Reference Range Interpretation Comments PROTIME PATIENT (test 12.8 See_Comment H [Auto mated message] code = 5964-2) The system Keenko generated this result transmitted ref erence range: 10.1 - 1 2.6 Seconds. The reference range was not used to int erpret this result as normal/abnormal . INR (test code = 6301-6) 1.2 Nor mal INR <1.1; Warfarin Therap eutic range 2.0 to 3. 0 or 2.5 to 3.5, dep ending upon the indica tions. Lab Interpretation (test Abnormal code = 05972-6) [facility] / [id number] 16:54:42 Test Item Value Reference Range Interpretation Comments PROTIME PATIENT (test 12.8 See_Comment H [Auto mated message] code = 5964-2) The system Keenko generated this result transmitted ref erence range: 10.1 - 1 2.6 Seconds. The reference range was not used to int erpret this result as normal/abnormal . INR (test code = 6301-6) 1.2 Nor mal INR <1.1; Warfarin Therap eutic range 2.0 to 3. 0 or 2.5 to 3.5, dep ending upon the indica tions. Lab Interpretation (test Abnormal code = 80042-5) [facility] / [id number] 16:54:42 Test Item Value Reference Range Interpretation Comments PROTIME PATIENT (test 12.8 See_Comment H [Auto mated message] code = 5964-2) The system Keenko generated this result transmitted ref erence range: 10.1 - 1 2.6 Seconds. The reference range was not used to int erpret this result as normal/abnormal . INR (test code = 6301-6) 1.2 Nor mal INR <1.1; Warfarin Therap eutic range 2.0 to 3. 0 or 2.5 to 3.5, dep ending upon the indica tions. Lab Interpretation (test Abnormal code = 97868-8) [facility] WITH [id number] 16:53:20 Test Item Value Reference Range Interpretation [...] RDW-SD (test code = 40.9 fL 39.0-49.9 23998-1) RDW-CV (test code = 13.3 % 12.0-15.5 788-0) PLT (test code = 363 See_Comment H [Automated 777-3) message] The sy stem which generated this result transmitted reference range : 166 - 358 10*3/ ?L. The reference r benito was not used to interpret this result as normal/abnormal . MPV (test code = 8.9 fL 9.5-12.9 L 81227-6) NRBC/100 WBC (test 0.0 See_Comment [Automat ed code = 2050340135) message] The system which generated this result transmitted reference range : 0.0 - 10.0 /100 WBCs. The refer ence range was not u sed to interpret th is result as normal/abnormal . NRBC x10^3 (test code See_Comment [Auto mated = 4356802032) message] The s ystem which generated this result transmitted reference range : 10*3/?L. The reference range was not used to interpret this result as normal/abnormal . GRAN MAT (NEUT) % 65.9 % (test code = 770-8) IMM GRAN % (test code 0.20 % = 3508792084) LYMPH % (test code = 22.7 % 736-9) MONO % (test code = 8.0 % 5905-5) EOS % (test code = 2.5 % 713-8) BASO % (test code = 0.7 % 706-2) GRAN MAT x10^3(ANC) 5.33 10*3/uL 1.88-7.09 (test code = 5770970357) IMM GRAN x10^3 (test 0.00-0.06 code = 2540000074) LYMPH x10^3 (test code 1.84 10*3/uL 1.32-3.29 = 731-0) MONO x10^3 (test code 0.65 10*3/uL 0.33-0.92 = 742-7) EOS x10^3 (test code = 0.20 10*3/uL 0.03-0.39 711-2) BASO x10^3 (test code 0.06 10*3/uL 0.01-0.07 = 704-7) Lab Interpretation Abnormal (test code = 97812-6) [facility] WITH [id number] 16:53:20 Test Item Value Reference Range Interpretation Comments WBC (test code = 8.10 See_Comment [Automated 4490-2) message] The sy stem which generated this result transmitted reference range : 4.30 - 11.10 10*3/?L. The reference range was not used to interpret this result as normal/abnormal . RBC (test code = 5.22 See_Comment [Automated 155-8) message] The sy stem which generated this [...] RDW-SD (test code = 40.9 fL 39.0-49.9 68402-6) RDW-CV (test code = 13.3 % 12.0-15.5 788-0) PLT (test code = 363 See_Comment H [Automated 777-3) message] The sy stem which generated this result transmitted reference range : 166 - 358 10*3/ ?L. The reference r benito was not used to interpret this result as normal/abnormal . MPV (test code = 8.9 fL 9.5-12.9 L 63447-1) NRBC/100 WBC (test 0.0 See_Comment [Automat ed code = 4252063978) message] The system which generated this result transmitted reference range : 0.0 - 10.0 /100 WBCs. The refer ence range was not u sed to interpret th is result as normal/abnormal . NRBC x10^3 (test code See_Comment [Auto mated = 7255620259) message] The s ystem which generated this result transmitted reference range : 10*3/?L. The reference range was not used to interpret this result as normal/abnormal . GRAN MAT (NEUT) % 65.9 % (test code = 770-8) IMM GRAN % (test code 0.20 % = 4929997775) LYMPH % (test code = 22.7 % 736-9) MONO % (test code = 8.0 % 5905-5) EOS % (test code = 2.5 % 713-8) BASO % (test code = 0.7 % 706-2) GRAN MAT x10^3(ANC) 5.33 10*3/uL 1.88-7.09 (test code = 5886623578) IMM GRAN x10^3 (test 0.00-0.06 code = 6875143900) LYMPH x10^3 (test code 1.84 10*3/uL 1.32-3.29 = 731-0) MONO x10^3 (test code 0.65 10*3/uL 0.33-0.92 = 742-7) EOS x10^3 (test code = 0.20 10*3/uL 0.03-0.39 711-2) BASO x10^3 (test code 0.06 10*3/uL 0.01-0.07 = 704-7) Lab Interpretation Abnormal (test code = 85689-8) [facility] WITH [id number] 16:53:20 Test Item Value Reference Range Interpretation [...] RDW-SD (test code = 40.9 fL 39.0-49.9 70806-8) RDW-CV (test code = 13.3 % 12.0-15.5 788-0) PLT (test code = 363 See_Comment H [Automated 777-3) message] The sy stem which generated this result transmitted reference range : 166 - 358 10*3/ ?L. The reference r benito was not used to interpret this result as normal/abnormal . MPV (test code = 8.9 fL 9.5-12.9 L 66135-8) NRBC/100 WBC (test 0.0 See_Comment [Automat ed code = 9386801451) message] The system which generated this result transmitted reference range : 0.0 - 10.0 /100 WBCs. The refer ence range was not u sed to interpret th is result as normal/abnormal . NRBC x10^3 (test code See_Comment [Auto mated = 1893401737) message] The s ystem which generated this result transmitted reference range : 10*3/?L. The reference range was not used to interpret this result as normal/abnormal . GRAN MAT (NEUT) % 65.9 % (test code = 770-8) IMM GRAN % (test code 0.20 % = 4735549066) LYMPH % (test code = 22.7 % 736-9) MONO % (test code = 8.0 % 5905-5) EOS % (test code = 2.5 % 713-8) BASO % (test code = 0.7 % 706-2) GRAN MAT x10^3(ANC) 5.33 10*3/uL 1.88-7.09 (test code = 5562090032) IMM GRAN x10^3 (test 0.00-0.06 code = 9951342825) LYMPH x10^3 (test code 1.84 10*3/uL 1.32-3.29 = 731-0) MONO x10^3 (test code 0.65 10*3/uL 0.33-0.92 = 742-7) EOS x10^3 (test code = 0.20 10*3/uL 0.03-0.39 711-2) BASO x10^3 (test code 0.06 10*3/uL 0.01-0.07 = 704-7) Lab Interpretation Abnormal (test code = 24532-8) [facility] (Total Cholesterol, Triglycerides, HDL)2022-05-24 11:25:37 Test Item Value Reference Range Interpretation Comments CHOL (test code = 1315740982) 222 mg/dL 120-200 H HDL (test code = 1812515259) 31 mg/dL >=50 L HDLC RATIO (test code = 1113254650) 7.2 <=4.5 H TRIG (test code = 1218511695) 214 mg/dL 30-170 H LDL CHOL (test code = 58556-4) 148 mg/dL <=160 VLDL (test code = 8545291717) 43 mg/dL 5-60 Lab Interpretation (test code = Abnormal 80524-9) [facility] [id number] 06:16:00 Test Item Value Reference Range Interpretation Comments TROPONIN I (test code = 0.003 ng/mL <=0.034 2929672982) BEHZAD (test code = BEHZAD) Reference (Normal) [...] biotin. Lab Interpretation Normal (test code = 10254-2) [facility]MINAL [id number] 06:13:00 Test Item Value Reference Range Interpretation Comments NT-proBNP (test code = 28 pg/mL <=125 4104881390) BEHZAD (test code = BEHZAD) Biotin has been reported to cause a negative bias, interpret results relative to patient's use of biotin. Lab Interpretation (test Normal code = 69810-4) [facility] METABOLIC PANEL (04145)2022-05-24 06:04:03 Test Item Value Reference Range Interpretation Comments NA (test code = 134 mmol/L 135-145 L 5225354841) K (test code = 3.8 mmol/L 3.5-5.0 5682095153) CL (test code = 101 mmol/L 98-108 9856884415) CO2 TOTAL (test code = 23 mmol/L 23-31 6182334173) AGAP (test code = 10 2-16 0196982114) BUN (test code = 15 mg/dL 7-23 4576102606) GLUCOSE (test code = 173 mg/dL 70-110 H 0287868886) CREATININE (test code = 0.85 mg/dL 0.50-1.04 7477601255) TOTAL BILI (test code = 0.7 mg/dL 0.1-1.0 3368182451) CALCIUM (test code = 8.8 mg/dL 8.6-10.6 4285524098) T PROTEIN (test code = 7.1 g/dL 6.3-8.2 2218867968) ALBUMIN (test code = 4.0 g/dL 3.5-5.0 0845960169) ALK PHOS (test code = 132 U/L 34-122 H 0558807468) ALTv (test code = 65 U/L 5-35 H 2-6) AST(SGOT) (test code = 57 U/L 13-40 H 9896767789) eGFR (test code = 71.7 mL/min/1.73m2 3265419951) BEHZAD (test code = BEHZAD) Association of [...] tests). Lab Interpretation Abnormal (test code = 76266-7) [facility]2023-[facility] 06:03:58 Test Item Value Reference Range Interpretation Comments LIPASE (test code = 0375465270) 59 U/L 0-220 Lab Interpretation (test code = Normal 29833-1) [facility]enACTIVATED PARTIAL THRMPLAS [id number] 05:59:40 Test Item Value Reference Range Interpretation Comments APTT Patient (test 26 See_Comment [Automat ed code = 3173-2) message] The system which generated this result transmitted reference range : 23 - 38 Seconds . The reference range was not used to interpr et this result as normal/abnormal . BEHZAD (test code = BEHZAD) The [facility] patient population mean normal value for aPTT is 30 seconds. Lab Interpretation Normal (test code = 64327-5) [facility]enPROTHROMBIN [facility] / [id number] 05:57:19 Test Item Value Reference Range Interpretation [...] tions. Lab Interpretation (test Normal code = 93466-9) [facility] WITH [id number] 05:48:58 Test Item Value Reference Range Interpretation Comments WBC (test code = 9.02 See_Comment [Automated 4490-2) message] The sy stem which generated this result transmitted reference range : 4.30 - 11.10 10*3/?L. The reference range was not used to interpret this result as normal/abnormal . RBC (test code = 5.23 See_Comment [Automated 338-8) message] The sy stem which generated this [...] RDW-SD (test code = 43.1 fL 39.0-49.9 56828-2) RDW-CV (test code = 13.8 % 12.0-15.5 788-0) PLT (test code = 405 See_Comment H [Automated 777-3) message] The sy stem which generated this result transmitted reference range : 166 - 358 10*3/ ?L. The reference r benito was not used to interpret this result as normal/abnormal . MPV (test code = 8.7 fL 9.5-12.9 L 89182-2) NRBC/100 WBC (test 0.0 See_Comment [Automat ed code = 9824289010) message] The system which generated this result transmitted reference range : 0.0 - 10.0 /100 WBCs. The refer ence range was not u sed to interpret th is result as normal/abnormal . NRBC x10^3 (test code See_Comment [Auto mated = 7410763171) message] The s ystem which generated this result transmitted reference range : 10*3/?L. The reference range was not used to interpret this result as normal/abnormal . GRAN MAT (NEUT) % 71.9 % (test code = 770-8) IMM GRAN % (test code 0.30 % = 0414944932) LYMPH % (test code = 20.4 % 736-9) MONO % (test code = 4.0 % 5905-5) EOS % (test code = 2.8 % 713-8) BASO % (test code = 0.6 % 706-2) GRAN MAT x10^3(ANC) 6.49 10*3/uL 1.88-7.09 (test code = 5461970521) IMM GRAN x10^3 (test 0.03 10*3/uL 0.00-0.06 code = 4781441237) LYMPH x10^3 (test code 1.84 10*3/uL 1.32-3.29 = 731-0) MONO x10^3 (test code 0.36 10*3/uL 0.33-0.92 = 742-7) EOS x10^3 (test code = 0.25 10*3/uL 0.03-0.39 711-2) BASO x10^3 (test code 0.05 10*3/uL 0.01-0.07 = 704-7) Lab Interpretation Abnormal (test code = 43210-7) [facility]en[facility]isc[facility] referral [id number] 15:05:00 Test Item Value Reference Interpretation Comments [...] implicated inmeningioma tu morigenesis. Germline (i.e. inherited) FL2gcjtlvoeb ar e associated with neurofibromatos is type [...] uish between germline and so matic alterations.Con devops developer follow-up germline testin g on a blood specimen inconj unction with genetic senior genetic counselor ing if there is clinical eviden ceand/or family history suggest ing an underlying hereditary cancersyndrome. Currently, there are no known cl inically approved therapies thats pecifically target NF2 muta tions. REFERENCES1. cancer-beta.[facility].ac.uk/cosmic; Nucleic Acids R es. 2017 ;45(D1):D77 7-D783 (PMID 28308080)2. cbi oportal.org (Version 1.5.1) ; Cancer discov. 2012;2(5):401?4 ([id number]); Sci Signal. 201 3;6(269):pl1 (PMID 67588373) 3. Mayank BERRIOS, Abdoulaye Gaitan ,Paulie goddard O.D., Rachelle, WDonyaK. ( Eds). WHOClassificati on of Tumours of the Central Ner vous System (Revised 4thedi tion). IARC: Moody 2016.4. Brain T umor Pathol. Jan 2016;33(4):237? 47 (PMID 93142001)5. [email or web address]. Nature communications. May 18 2017;8:10142 (P MID 60737548)7. NPJ Genom Med. 2017;2 (PMID 04678338)8. Int J Cancer. Jan 16 2001;94(2):218? 21 (PMID 56836155)9. Act a Neuropathol. Oct 2016;134(1) :155?8 (PMID 12720413)10. Na senthile communications. Nov 05 2017;8(1):186 ( PMID 37168123)ADDITI ONAL INFORMATIONMicr oscopic examination was performed by [...] GLI2, GLI3, GNA11, GN AQ, GNAS, GPS2, H3F3A,FYEO7B5T, HBXY8V2M, IDH1, IDH2, JAK2, KDM 5A, KDM5C,KDM6A, KLF4, KMT2B (ML L4), KMT2C (MLL3), KMT2D ( MLL2),KRAS, LDB1, LRP1B, LZTR1, M AP2K1, MDM2, MLH1, MSH2,MSH3 , MSH6, MYB, MYBL1, MYC, MYC N, NF1, NF2,NOTCH1, NOT CH2, NRAS, PARP1, PDGFRA, LBM4Z1A ,PIK3CA, PIK3R1, PIK3R2, POLE, P OLR2A, POT1, PPM1D,JHMNA1C, PTCH1, PTCH2, PTEN, PTPN11, P TPRD, QKI,RAF1, [...] AGBL4, ATG7, BCAN, BEND2,BIR C5, BRAF, BTBD1, C51lfv64, C8orf 34, CLCN6, CLIP2,CXXC5, DD X31, DIP2C, EGFR, ELAVL3, ESR1, E TV6, EWSR1,KVA902O, SPU691P, FGFR1, FGFR3, FLI1, FO XR2, FXR1,FYCO1, GFI1, GFI1B, GL I1, GNAI1, JPX, KZPF9147,OEZ195 643, MACF1, MAMLD1, MET, MK RN1, MMP16, MN1,MST1R, MYB, MYBL1, MYC, NAB2, NACC2, NA V1, NDRG1,NELFE, NFASC, NRF1, NT RK1, NTRK2, NTRK3, PCDHGA1, PCSK5, PDGFRA, PKD1, PRKCA, PT PRZ1, PVT1, QKI, RAF1,SUNI, RELA , OWA375, SEPT14, ZWR34A5, SLIT1, SRGAP3,OD4QWY7, STAT6, TACC1, T ACC3, TFG, TPM3, UBE2J2, VCL,WHS C1, and YAP1.Mutation n omenclature is based on build GRCh37 (hg19). Fordetails abou t gene reference transcripts (Re fSeq accessionnumber s), specific targeted region s of each gene, andadditional i nformation about this test, [email or web address](Test ID NONCP). CLIN ICAL CORRELATIONSTes t results [...] based o n updated clinicalrelevan ce. See [email or web address].YOYO [email or web address] [email or web address](Test ID NONCP) for the most up to date list of genes i ncluded inthis test. Additiona l Information CLINICAL TRIALS Possible clinical trials of benef it for this patient can bef ound at the following sites :1) ClinicalTrials. gov:www.clinicalt rials.gov/ct2/s earch/advanced2) [facility]: www.crane.[facility]/re search/clinical-t rials/3) [facility] [place]: <www.cancer.gov /clinicaltrials/s earch> REFERENCETRANSC RIPTSequence variant nomencl ature is based on the following R efSeqaccession number (build G RCh37 (hg19)):NF2 [id number]. Spec imen Tissue, Tumor Tissue ID [id number] Released By Katie Yu M.D. Laboratory NotesThis test was developed and its performance characteristics determined by doyle Polk in a manner consiste nt with CLIA requirements. T his test has not been cleared or approved by the U.S. Food and D rug Administration. Performing SiteMaHCA Florida [facility] [place] [address] [facility], [place] [address] BEHZAD (test [place] TEST ID: code = BEHZAD) NONCP - 79 GENE MUTATION ANALYSIS- RIGHT BRAIN [id number] (B9)DOS 08/19/2021 [facility] [id number] 15:05:00 Test Item Value Reference Interpretation Comments Range Misc test [place] 79 GMT name (test code = 2566) [...] implicated inmeningioma tu morigenesis. Germline (i.e. inherited) YO3dsbzpospz ar e associated with neurofibromatos is type [...] uish between germline and so matic alterations.Con devops developer follow-up germline testin g on a blood specimen inconj unction with genetic senior genetic counselor ing if there is clinical eviden ceand/or family history suggest ing an underlying hereditary cancersyndrome. Currently, there are no known cl inically approved therapies thats pecifically target NF2 muta tions. REFERENCES1. cancer-beta.[facility].ac.uk/cosmic; Nucleic Acids R es. 2017 ;45(D1):D77 7-D783 (PMID 66112878)2. cbi oportal.org (Version 1.5.1) ; Cancer discov. 2012;2(5):401?4 ([id number]); Sci Signal. 201 3;6(269):pl1 (PMID 37229821) 3. Mayank BERRIOS, Abdoulaye Gaitan ,Paulie goddard O.D., Rachelle, WDonyaK. ( Eds). WHOClassificati on of Tumours of the Central Ner vous System (Revised 4thedi tion). IARC: Moody 2016.4. Brain T umor Pathol. Jan 2016;33(4):237? 47 (PMID 06563764)5. [email or web address]. Nature communications. May 18 2017;8:94720 (P MID 43964257)7. NPJ Genom Med. 2017;2 (PMID 73242894)8. Int J Cancer. Jan 16 2001;94(2):218? 21 (PMID 77351440)9. Act a Neuropathol. Oct 2016;134(1) :155?8 (PMID 37905971)10. Na senthile communications. Nov 05 2017;8(1):186 ( PMID 59400706)ADDITI ONAL INFORMATIONMicr oscopic examination was performed by [...] GLI2, GLI3, GNA11, GN AQ, GNAS, GPS2, H3F3A,KLJW8U2X, GLXR0R6J, IDH1, IDH2, JAK2, KDM 5A, KDM5C,KDM6A, KLF4, KMT2B (ML L4), KMT2C (MLL3), KMT2D ( MLL2),KRAS, LDB1, LRP1B, LZTR1, M AP2K1, MDM2, MLH1, MSH2,MSH3 , MSH6, MYB, MYBL1, MYC, MYC N, NF1, NF2,NOTCH1, NOT CH2, NRAS, PARP1, PDGFRA, WZO6S0G ,PIK3CA, PIK3R1, PIK3R2, POLE, P OLR2A, POT1, PPM1D,RMCXW7J, PTCH1, PTCH2, PTEN, PTPN11, P TPRD, QKI,RAF1, [...] AGBL4, ATG7, BCAN, BEND2,BIR C5, BRAF, BTBD1, C07jlr05, C8orf 34, CLCN6, CLIP2,CXXC5, DD X31, DIP2C, EGFR, ELAVL3, ESR1, E TV6, EWSR1,TNR907F, FEO453X, FGFR1, FGFR3, FLI1, FO XR2, FXR1,FYCO1, GFI1, GFI1B, GL I1, GNAI1, JPX, BQUO9631,DJY576 643, MACF1, MAMLD1, MET, MK RN1, MMP16, MN1,MST1R, MYB, MYBL1, MYC, NAB2, NACC2, NA V1, NDRG1,NELFE, NFASC, NRF1, NT RK1, NTRK2, NTRK3, PCDHGA1, PCSK5, PDGFRA, PKD1, PRKCA, PT PRZ1, PVT1, QKI, RAF1,SUNI, RELA , FWV305, SEPT14, BVE78R5, SLIT1, SRGAP3,BL4PCN8, STAT6, TACC1, T ACC3, TFG, TPM3, UBE2J2, VCL,WHS C1, and YAP1.Mutation n omenclature is based on build GRCh37 (hg19). Fordetails abou t gene reference transcripts (Re fSeq accessionnumber s), specific targeted region s of each gene, andadditional i nformation about this test, [email or web address](Test ID NONCP). CLIN ICAL CORRELATIONSTes t results [...] based o n updated clinicalrelevan ce. See www.[email or web address].com(Test ID NONCP) for the most up to date list of genes i ncluded inthis test. Additiona l Information CLINICAL TRIALS Possible clinical trials of benef it for this patient can bef ound at the following sites :1) ClinicalTrials. gov:www.clinicalt rials.gov/ct2/s earch/advanced2) [facility]: www.crane.[facility] [place]/re search/clinical-t rials/3) [facility] [place]: <www.cancer.gov /clinicaltrials/s earch> REFERENCETRANSC RIPTSequence variant nomencl ature is based on the following R efSeqaccession number (build G RCh37 (hg19)):[id number]. Spec imen Tissue, Tumor Tissue ID [id number] Released By Katie Yu M.D. Laboratory NotesThis test was developed and its performance characteristics determined by Jed Polk in a manner consiste nt with CLIA requirements. T his test has not been cleared or approved by the U.S. Food and D rug Administration. Performing SiteMaH[facility] [place] [address] [facility], [place] [address] BEHZAD (test [place] TEST ID: code = BEHZAD) NONCP - 79 GENE MUTATION ANALYSIS- RIGHT BRAIN [id number] (B9)DOS 08/19/2021 [facility] [id number] 15:05:00 Test Item Value Reference Interpretation Comments Range Misc test [place] 79 GMT name (test code = 2566) [...] implicated inmeningioma tu morigenesis. Germline (i.e. inherited) [id number] ar e associated with neurofibromatos is type [...] uish between germline and so matic alterations.Con devops developer follow-up germline testin g on a blood specimen inconj unction with genetic senior genetic counselor ing if there is clinical eviden ceand/or family history suggest ing an underlying hereditary cancersyndrome. Currently, there are no known cl inically approved therapies thats pecifically target NF2 muta tions. REFERENCES1. cancer-beta.[facility].ac.uk/cosmic; Nucleic Acids R es. 2017 ;45(D1):D77 7-D783 (PMID [id number])2. cbi oportal.org (Version 1.5.1) ; Cancer discov. 2012;2(5):401?4 ([id number]); Sci Signal. 201 3;6(269):pl1 (PMID 28274869) 3. Mayank BERRIOS, Abdoulaye Gaitan ,Paulie goddard O.D., Rachelle, WDonyaK. ( Eds). WHOClassificati on of Tumours of the Central Ner vous System (Revised 4thedi tion). IARC: Moody 2016.4. Brain T umor Pathol. Jan 2016;33(4):237? 47 (PMID 81343424)5. [email or web address]. Nature communications. May 18 2017;8:42010 (P MID [id number])7. NPJ Genom Med. 2017;2 (PMID 59069001)8. Int J Cancer. Jan 16 2001;94(2):218? 21 (PMID 22462560)9. Act a Neuropathol. Oct 2016;134(1) :155?8 (PMID 05022506)10. Na allan communications. Nov 05 2017;8(1):186 ( PMID [id number])ADDITI ONAL INFORMATIONMicr oscopic examination was performed by [...] GLI2, GLI3, GNA11, GN AQ, GNAS, GPS2, H3F3A,QFIU1Y1Y, CVRS2G6G, IDH1, IDH2, JAK2, KDM 5A, KDM5C,KDM6A, KLF4, KMT2B (ML L4), KMT2C (MLL3), KMT2D ( MLL2),KRAS, LDB1, LRP1B, LZTR1, M AP2K1, MDM2, MLH1, MSH2,MSH3 , MSH6, MYB, MYBL1, MYC, MYC N, NF1, NF2,NOTCH1, NOT CH2, NRAS, PARP1, PDGFRA, KVY4E9L ,PIK3CA, PIK3R1, PIK3R2, POLE, P OLR2A, POT1, PPM1D,EKIVO8H, PTCH1, PTCH2, PTEN, PTPN11, P TPRD, QKI,RAF1, [...] AGBL4, ATG7, BCAN, BEND2,BIR C5, BRAF, BTBD1, N48aju20, C8orf 34, CLCN6, CLIP2,CXXC5, DD X31, DIP2C, EGFR, ELAVL3, ESR1, E TV6, EWSR1,BBN990G, EWZ483N, FGFR1, FGFR3, FLI1, FO XR2, FXR1,FYCO1, GFI1, GFI1B, GL I1, GNAI1, JPX, DWFN3868,SKS925 643, MACF1, MAMLD1, MET, MK RN1, MMP16, MN1,MST1R, MYB, MYBL1, MYC, NAB2, NACC2, NA V1, NDRG1,NELFE, NFASC, NRF1, NT RK1, NTRK2, NTRK3, PCDHGA1, PCSK5, PDGFRA, PKD1, PRKCA, PT PRZ1, PVT1, QKI, RAF1,SUNI, RELA , WLZ128, SEPT14, VHX03G3, SLIT1, SRGAP3,IE0NYV9, STAT6, TACC1, T ACC3, TFG, TPM3, UBE2J2, VCL,WHS C1, and YAP1.Mutation n omenclature is based on build GRCh37 (hg19). Fordetails abou t gene reference transcripts (Re fSeq accessionnumber s), specific targeted region s of each gene, andadditional i nformation about this test, seewww.AnyLeaf(Test ID NONCP). CLIN ICAL CORRELATIONSTes t results [...] based o n updated clinicalrelevan ce. See www.[employer].com(Test ID NONCP) for the most up to date list of genes i ncluded inthis test. Additiona l Information CLINICAL TRIALS Possible clinical trials of benef it for this patient can bef ound at the following sites :1) ClinicalTrials. gov:www.clinicalt rials.gov/ct2/s earch/advanced2) [facility]: www.[facility]ane.[facility] [place]/re search/clinical-t rials/3) [facility] [place]: <www.cancer.gov /clinicaltrials/s earch> REFERENCETRANSC RIPTSequence variant nomencl ature is based on the following R efSeqaccession number (build G RCh37 (hg19)):NF2 [id number]. Spec imen Tissue, Tumor Tissue ID [id number] Released By Katie Yu M.D. Laboratory NotesThis test was developed and its performance characteristics determined by [facility] in a manner consiste nt with CLIA requirements. T his test has not been cleared or approved by the U.S. Food and D rug Administration. Performing [facility] [address] [facility], [place] [address] BEHZAD (test [place] TEST ID: code = BEHZAD) NONCP - 79 GENE MUTATION ANALYSIS- RIGHT BRAIN [id number] (B9)DOS [facility]2021 [facility] [id number] 15:05:00 Test Item Value Reference Interpretation Comments [...] implicated inmeningioma tu morigenesis. Germline (i.e. inherited) OK7tgewpozvl ar e associated with neurofibromatos is type [...] uish between germline and so matic alterations.Con devops developer follow-up germline testin g on a blood specimen inconj unction with genetic senior genetic counselor ing if there is clinical eviden ceand/or family history suggest ing an underlying hereditary cancersyndrome. Currently, there are no known cl inically approved therapies thats pecifically target NF2 muta tions. REFERENCES1. cancer-beta.[facility].ac.uk/cosmic; Nucleic Acids R es. 2017 ;45(D1):D77 7-D783 (PMID 03702199)2. cbi oportal.org (Version 1.5.1) ; Cancer discov. 2012;2(5):401?4 ([id number]); Sci Signal. 201 3;6(269):pl1 (PMID 00303760) 3. Mayank BERRIOS, Abdoulaye Gaitan ,Paulie goddard O.D., Rachelle, WDonyaK. ( Eds). WHOClassificati on of Tumours of the Central Ner vous System (Revised 4thedi tion). IARC: Moody 2016.4. Brain T umor Pathol. Jan 2016;33(4):237? 47 (PMID 82932098)5. [email or web address]. Nature communications. May 18 2017;8:21982 (P MID [id number])7. NPJ Genom Med. 2017;2 (PMID 66603786)8. Int J Cancer. Jan 16 2001;94(2):218? 21 (PMID 06218819)9. Act a Neuropathol. Oct 2016;134(1) :155?8 (PMID 65990342)10. Na allan communications. Nov 05 2017;8(1):186 ( PMID 83060843)ADDITI ONAL INFORMATIONMicr oscopic examination was performed by [...] GLI2, GLI3, GNA11, GN AQ, GNAS, GPS2, H3F3A,FVZX8V7I, NPIV0R7M, IDH1, IDH2, JAK2, KDM 5A, KDM5C,KDM6A, KLF4, KMT2B (ML L4), KMT2C (MLL3), KMT2D ( MLL2),KRAS, LDB1, LRP1B, LZTR1, M AP2K1, MDM2, MLH1, MSH2,MSH3 , MSH6, MYB, MYBL1, MYC, MYC N, NF1, NF2,NOTCH1, NOT CH2, NRAS, PARP1, PDGFRA, QEH0Z3D ,PIK3CA, PIK3R1, PIK3R2, POLE, P OLR2A, POT1, PPM1D,CYRCW2U, PTCH1, PTCH2, PTEN, PTPN11, P TPRD, QKI,RAF1, [...] AGBL4, ATG7, BCAN, BEND2,BIR C5, BRAF, BTBD1, E49bbz09, C8orf 34, CLCN6, CLIP2,CXXC5, DD X31, DIP2C, EGFR, ELAVL3, ESR1, E TV6, EWSR1,IOY387K, ZTJ777O, FGFR1, FGFR3, FLI1, FO XR2, FXR1,FYCO1, GFI1, GFI1B, GL I1, GNAI1, JPX, DJQZ6397,PKE857 643, MACF1, MAMLD1, MET, MK RN1, MMP16, MN1,MST1R, MYB, MYBL1, MYC, NAB2, NACC2, NA V1, NDRG1,NELFE, NFASC, NRF1, NT RK1, NTRK2, NTRK3, PCDHGA1, PCSK5, PDGFRA, PKD1, PRKCA, PT PRZ1, PVT1, QKI, RAF1,SUNI, RELA , UXP581, SEPT14, BHH65C3, SLIT1, SRGAP3,AX4VTH3, STAT6, TACC1, T ACC3, TFG, TPM3, UBE2J2, VCL,WHS C1, and YAP1.Mutation n omenclature is based on build GRCh37 (hg19). Fordetails abou t gene reference transcripts (Re fSeq accessionnumber s), specific targeted region s of each gene, andadditional i nformation about this test, seewww.AnyLeaf(Test ID NONCP). CLIN ICAL CORRELATIONSTes t results [...] based o n updated clinicalrelevan ce. See www.[employer].com(Test ID NONCP) for the most up to date list of genes i ncluded inthis test. Additiona l Information CLINICAL TRIALS Possible clinical trials of benef it for this patient can bef ound at the following sites :1) ClinicalTrials. gov:www.clinicalt rials.gov/ct2/s earch/advanced2) [facility]: www.[facility]ane.[facility] [place]/re search/clinical-t rials/3) [facility] [place]: <www.cancer.gov /clinicaltrials/s earch> REFERENCETRANSC RIPTSequence variant nomencl ature is based on the following R efSeqaccession number (build G RCh37 (hg19)):NF2 [id number]. Spec imen Tissue, Tumor Tissue ID [id number] Released By Katie Yu M.D. Laboratory NotesThis test was developed and its performance characteristics determined by [facility] in a manner consiste nt with CLIA requirements. T his test has not been cleared or approved by the U.S. Food and D rug Administration. Performing [facility] - [address], [place] [address] BEHZAD (test [place] TEST ID: code = BEHZAD) NONCP - 79 GENE MUTATION ANALYSIS- RIGHT BRAIN [id number] (B9)DOS 08/19/2021 [facility] [id number] 22:24:00 Test Item Value Reference Range Interpretation Comments POC glucose (test code 125 mg/dL 65-99 H Opera tor Name: = 45746-1) John Phan ID : [id number] able: TM Notified rn patient care Interpretation Abnormal (test code = 67278-7) [facility]2022-06-08 22:24:00 Test Item Value Reference Range Interpretation Comments POC glucose (test code 125 mg/dL 65-99 H Opera tor Name: = 19029-2) John Phan ID : [id number] able: TM Notified rn patient care Interpretation Abnormal (test code = 77399-6) [facility]2022-06-08 22:24:00 Test Item Value Reference Range Interpretation Comments POC glucose (test code 125 mg/dL 65-99 H Opera tor Name: = 53301-0) John Ibarrae ID : [id number] able: TM Notified rn patient care Interpretation Abnormal (test code = 35225-2) [facility]2022-06-08 22:24:00 Test Item Value Reference Range Interpretation Comments POC glucose (test code 125 mg/dL 65-99 H Opera tor Name: = 20257-2) John Phan ID : [id number] able: TM Notified rn patient care Interpretation Abnormal (test code = 90015-9) [facility] 12 [id number] 14:47:26 Test Item Value Reference Range Interpretation Comments Ventricular rate (test code = 253) Atrial rate (test code = 255) [place] interval (test code = 266) QRSD interval [...] of 24-AUG-2021 00:35,-No significant change was found- [address]2022-06-05 14:47:26 Test Item Value Reference Range Interpretation Comments Ventricular rate (test code = 253) Atrial rate (test code = 255) [place] interval (test code = 266) QRSD interval [...] of 24-AUG-2021 00:35,-No significant change was found- [address]2022-06-05 14:47:26 Test Item Value Reference Range Interpretation Comments Ventricular rate (test code = 253) Atrial rate (test code = 255) [place] interval (test code = 266) QRSD interval [...] of 24-AUG-2021 00:35,-No significant change was found- [address]2022-06-05 14:47:26 Test Item Value Reference Range Interpretation Comments Ventricular rate (test 63 code = 253) Atrial rate (test code 63 = 255) [place] interval (test code 172 = 266) QRSD [...] of 24-AUG-2021 00:35,-No significant change was found- [facility]/ pulse obrckzif0076-74-44 16:54:41 Test Item Value Reference Range Interpretation [...] meters (test code = 40 m 7620) [facility]/ pulse qqrfexse7918-05-95 16:54:41 Test Item Value Reference Range Interpretation [...] meters (test code = 40 m 7620) [facility]/ pulse izytvmxv9746-25-70 16:54:41 Test Item Value Reference Range Interpretation [...] meters (test code = 40 m 7620) [facility] blbivniw1099-39-37 16:54:41 Test Item Value Reference Range Interpretation [...] meters (test code = 40 m 7620) [facility] BfircklbSDLS-IkH-0 (COVID-19) RNA [Presence] in Respiratory specimen by FELIPA with probe pkiyaeiax6926-51-60 23:48:49 Test Item Value Reference Range Interpretation Comments SARS-CoV-2 (COVID-19) RNA Not detected [Presence] in Respiratory specimen by FELIPA with probe detection (test code = 53196-0) Whether patient is employed in a Unknown healthcare setting (test code = 38903-9) Whether the patient has symptoms Unknown related to condition of interest (test code = 96027-5) Whether the patient was Unknown hospitalized for condition of interest (test code = 97230-6) Whether the patient was admitted Unknown to intensive care unit (ICU) for condition of interest (test code = 02660-2) Whether patient resides in a Unknown congregate care setting (test code = 37856-2) status (test code = Unknown 89689-2) Date and time of symptom onset Unknown (test code = 97902-3) [facility] jtbiaes2789-70-36 20:53:10 Test Item Value Reference Range Interpretation Comments Case number (test code = [id number]) Surgical pathology See link below for report (test code = PDF Lab Report 2255) Result status (test code This is Final Report = [id number]) for [id number] pathology hmramta1878-90-08 20:53:10 Test Item Value Reference Range Interpretation Comments Case number (test code = [id number]) Surgical pathology See link below for report (test code = PDF Lab Report 2255) Result status (test code This is Final Report = [id number]) for [id number] [place], [place] [address]urgical pathology zeameqi4711-04-33 20:53:10 Test Item Value Reference Range Interpretation Comments Case number (test code = [id number]) Surgical pathology See link below for report (test code = PDF Lab Report 2255) Result status (test code This is Final Report = [id number]) for [id number] [place] [address] pathology xztfxja5136-05-88 20:53:10 Test Item Value Reference Range Interpretation Comments Case number (test code = [id number]) Surgical pathology See link below for report (test code = PDF Lab Report 2255) Result status (test code This is Final Report = [id number]) [address] (COVID-19) RNA [Presence] in Respiratory specimen by FELIPA with probe yiytyyulf2423-25-97 20:28:44 Test Item Value Reference Range Interpretation Comments SARS-CoV-2 (COVID-19) RNA Not detected [Presence] in Respiratory specimen by FELIPA with probe detection (test code = 65537-2) Whether patient is employed in a Unknown healthcare setting (test code = 43858-2) Whether the patient has symptoms Unknown related to condition of interest (test code = 80307-2) Whether the patient was Unknown hospitalized for condition of interest (test code = 28185-4) Whether the patient was admitted Unknown to intensive care unit (ICU) for condition of interest (test code = 30901-2) Whether patient resides in a Unknown congregate care setting (test code = 23818-1) status (test code = Unknown 75532-9) Date and time of symptom onset Unknown (test code = 88978-8) [facility] gugtuox9579-57-15 07:40:00 Test Item Value Reference Range Interpretation Comments Urine culture No growth Specimen isolate (test after [facility] code = 68840-2) [facility] woqewzw5547-44-23 07:40:00 Test Item Value Reference Range Interpretation Comments Urine culture No growth Specimen isolate (test after 24 [facility] code = 03735-7) hours Source: [facility] Site: [facility] [id number] 07:40:00 Test Item Value Reference Range Interpretation Comments Urine culture No growth Specimen isolate (test after 24 [facility]Spe [facility] code = 96906-0) hours Source: [facility] Site: [facility] gbubxpm9419-65-86 07:40:00 Test Item Value Reference Range Interpretation Comments Urine culture No growth Specimen isolate (test after 24 [facility] code = 67801-6) hours Source: [facility] RNA [Presence] in Respiratory specimen by FELIPA with probe vwtfchpdw1145-80-05 20:09:14 Test Item Value Reference Range Interpretation Comments SARS-CoV-2 (COVID-19) RNA Not detected [Presence] in Respiratory specimen by FELIPA with probe detection (test code = 67496-1) Whether patient is employed in a Unknown healthcare setting (test code = 05183-4) Whether the patient has symptoms Unknown related to condition of interest (test code = 07007-2) Whether the patient was Unknown hospitalized for condition of interest (test code = 22378-1) Whether the patient was admitted Unknown to intensive care unit (ICU) for condition of interest (test code = 36454-5) Whether patient resides in a Unknown congregate care setting (test code = 30625-4) status (test code = Unknown 48631-8) Date and time of symptom onset Unknown (test code = 98504-9) [facility] , fqxlc4513-67-17 02:52:00 Test Item Value Reference Range Interpretation Comments test urine, POC (test Negative code = 5842314) Internal QC (test code = 257) QC acceptable [facility] , tbejx5881-94-42 02:52:00 Test Item Value Reference Range Interpretation Comments test urine, POC (test Negative code = 3060991) Internal QC (test code = 257) QC acceptable [facility] , uxzqr7481-58-52 02:52:00 Test Item Value Reference Range Interpretation Comments test urine, POC (test Negative code = 7382676) Internal QC (test code = 257) QC acceptable [facility] , sqhwv6084-23-52 02:52:00 Test Item Value Reference Range Interpretation Comments test urine, POC (test Negative code = 2780351) Internal QC (test code = 257) QC [facility] RNA [Presence] in Respiratory specimen by FELIPA with probe apfeykpjy3849-56-23 00:32:04 Test Item Value Reference Range Interpretation Comments SARS-CoV-2 (COVID-19) RNA Not detected [Presence] in Respiratory specimen by FELIPA with probe detection (test code = 97966-6) Whether patient is employed in a Unknown healthcare setting (test code = 89179-5) Whether the patient has symptoms Unknown related to condition of interest (test code = 69455-3) Whether the patient was Unknown hospitalized for condition of interest (test code = 53032-4) Whether the patient was admitted Unknown to intensive care unit (ICU) for condition of interest (test code = 68430-8) Whether patient resides in a Unknown congregate care setting (test code = 50652-6) status (test code = Unknown 56101-0) Date and time of symptom onset Unknown (test code = 36069-4) [facility]/ [facility]PTAKE, [id number] 09:03:00 FINAL REPORT PROCEDURE: THYROID SCAN AND UPTAKES CPT CODE: 11802 INDICATION: Hyperthyroidism PROTOCOL: 0.238 mCi of I-123 [...] Borderline elevated overall iodide uptakes. Signed: [facility] MDR[facility] Verified Date/Time: 11/09/2019 09:03:02 Reading Location: [address] Reading Room "
[2022-12-20] MEDS ORDERED: METOCLOPRAMIDE 10 MG/2mL INJ ONE (11:32)
[2022-12-20] MEDS ORDERED: FENTANYL CITR 100 MCG/2 ML ONE (11:33)
[2022-12-20] MEDS ORDERED: NA CHLORIDE 0.9% 1,000 ML ONE (11:33)
--- NOTE | 2022-12-20 11:50 | RAD REPORT ---
EXAM DESCRIPTION: CT - Head Brain Wo Cont - 12/20/2022 11:31 am CLINICAL HISTORY: Alteration of awareness/confusion COMPARISON: None TECHNIQUE: Computed axial tomography of the head was obtained. IV contrast was not requested. All CT scans are performed using dose optimization technique as appropriate and may include automated exposure control or mA/KV adjustment according to patient size. FINDINGS: An intracranial bleed is not seen Right sided chest enters the right lateral ventricle. Stable dilatation of fourth ventricle. Third an d lateral ventricles normal caliber Left suboccipital craniotomy with gliosis 8 millimeter calcification along the left cerebral convexity without change. No surrounding edema. Th is probably is a meningioma No extra-axial fluid collection is noted. Fluid within the sinuses/ mastoids is not seen. IMPRESSION: Stable dilatation of the fourth ventricle. Right ventricular shunt in place. Third and lateral ventricles normal caliber.
--- NOTE | 2022-12-20 12:16 | RAD REPORT ---
EXAM DESCRIPTION: RAD - Shuntogram - 12/20/2022 11:58 am CLINICAL HISTORY: Headache, brain mass FINDINGS: A right ventricular shunt. The shunt courses inferiorly into the right neck and right ches t. This shunt enters the right abdomen. It extends into the left lower abdomen/pelvis. The tip of the shunt lies within the right pelvis. No break or kink of the shunt noted
--- NOTE | 2022-12-20 12:49 | ER ---
Nurse's Notes [facility] Name: Skye Song Age: 47 yrs Sex: Female : 1975 Arrival Date: 12/20/2022 Time: 10:43 Bed 8 Private MD: Diagnosis: Migraine without aura, not intractable;Headache Presentation: 12/20 10:45 Chief complaint: EMS states: patient called for a migraine, states she has a history of ko1 a brain tumor and it is growing. States she has not seen her neurologist since September. Coronavirus screen: At this time, the client does not indicate any symptoms associated with coronavirus-19. Ebola Screen: No symptoms or risks identified at this time. Initial Sepsis Screen: Does the patient meet any 2 criteria? No. Patient's initial sepsis screen is negative. Does the patient have a suspected source of infection? No. Patient's initial sepsis screen is negative. Risk Assessment: Do you want to hurt yourself or someone else? Patient reports no desire to harm self or others. Onset of symptoms was December 20, 2022. 10:45 Method Of Arrival: EMS: [facility] ko1 10:45 Acuity: NIDA 3 ko1 Triage Assessment: 10:57 General: Appears in no apparent distress. comfortable, Behavior is cooperative, ko1 appropriate for age. Pain: Complains of pain in top of head and forehead. 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 - Social history:: Smoking status: Patient denies any tobacco usage or history of. - Family history:: not pertinent. - Hospitalizations: : No recent hospitalization is reported. - History obtained from: EMS notes patient complained of headache neuro intact. Screenin:20 [facility] ED Fall Risk Assessment (Adult) History of falling in the last 3 months, ko1 including since admission No falls in past 3 months (0 pts) Confusion or Disorientation No (0 pts) Intoxicated or Sedated No (0 pts) Impaired Gait No (0 pts) Mobility Assist Device Used No (0 pt) Altered Elimination No (0 pt) Score/Fall Risk Level 0 - 2 = Low Risk Oriented to surroundings, Maintained a safe environment, Educated pt \T\ family on fall prevention, incl call for assistance when getting out of bed, Assessed \T\ reinforced patient's understanding of fall precautions, Provided non-skid footwear, Hourly rounding (assess needs \T\ fall precautionary measures) done, Used ambulatory aids as needed (educated on \T\ assisted with), Used gait belt as appropriate. Abuse screen: Denies threats or abuse. Denies injuries from another. Nutritional screening: No deficits noted. Tuberculosis screening: No symptoms or risk factors identified. Assessment: 11:05 Neuro: Reports headache. Cardiovascular: No deficits noted. Respiratory: No deficits ko1 noted. GI: No deficits noted. : No deficits noted. EENT: No deficits noted. Derm: No deficits noted. Musculoskeletal: No deficits noted. 13:05 Reassessment: Patient appears in no apparent distress at this time. No changes from ld1 previously documented assessment. Patient and/or family updated on plan of care and expected duration. Pain level reassessed. Patient is alert, oriented x 3, equal unlabored respirations, skin warm/dry/pink. Vital Signs: 10:45 BP 123 / 70; Pulse 78; Resp 18; Temp 98.8(O); Pulse Ox 95% on R/A; ko1 11:35 BP 127 / 51; Pulse 71; Resp 18; Pulse Ox 95% ; ko1 12:18 BP 108 / 45; Pulse 74; Resp 16; Pulse Ox 95% ; ko1 13:05 BP 111 / 59; Pulse 72; Resp 18; Pulse Ox 100% on R/A; ld1 [place] Coma Score: 11:44 Eye Response: spontaneous(4). Motor Response: obeys commands(6). Verbal Response: cp3 oriented(5). Total: 15. ED Course: 10:50 Patient arrived in ED. ko1 10:51 Alal Ruvalcaba, CALEB is Primary Nurse. ko1 10:51 Alhaji Jorge DO is Attending Physician. ms3 10:52 Erin Kessler MD is Attending Physician. ms3 10:57 Triage completed. ko1 10:57 Arm band placed on right wrist. 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 11:20 Inserted saline lock: 20 gauge in right antecubital area, using aseptic technique. ko1 Blood collected. 11:32 CT Head Brain wo Cont In Process Unspecified. EDMS 11:35 Patient has correct armband on for positive identification. Bed in low position. Call ko1 light in reach. Side rails up X2. Client placed on continuous cardiac and pulse oximetry monitoring. NIBP monitoring applied. 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 Door closed. Noise minimized. Lights dimmed. Warm blanket given. Pillow given. 12:00 Shuntogram XRAY In Process Unspecified. EDMS 12:48 Hema Kaur MD is Referral Physician. cp3 13:05 No provider procedures requiring assistance completed. IV discontinued, intact, ld1 bleeding controlled, No redness/swelling at site. Administered Medications: 11:26 Drug: fentaNYL (PF) IVP 25 mcg IVP once Route: IVP; Site: right antecubital; ko1 11:26 Drug: NS 0.9% IV 1000 ml IV at 1 bolus Per protocol; 1000 mL bolus Route: IV; Rate: 1 ko1 bolus; Site: right antecubital; 11:27 Drug: metoCLOPramide IVP 10 mg IVP once; over 1 to 2 minutes Route: IVP; Site: right ko1 antecubital; Medication: 11:20 VIS not applicable for this client. ko1 Outcome: 12:49 Discharge ordered by MD. cp3 13:05 Discharged to home ambulatory, ld1 13:05 Condition: stable 13:05 Discharge instructions given to patient, Instructed on discharge instructions, follow up and referral plans. Demonstrated understanding of instructions, follow-up care, 13:05 Patient left the ED. ld1 Signatures: Dispatcher [employer] EDMS Erin Kessler MD MD cp3 Alhaji Jorge DO DO ms3 Samantha Jorge RN RN ld1 Alla Ruvalcaba RN RN ko1
--- NOTE | 2022-12-20 12:49 | EDPHYS ---
Physician Documentation [facility] Name: Skye Song Age: 47 yrs Sex: Female : 1975 Arrival Date: 12/20/2022 Time: 10:43 Bed 8 Private MD: ED Physician Erin Kessler HPI: 12/20 12:58 This 47 yrs old Female presents to ER via EMS with complaints of headache. cp3 11:37 Patient is a 47-year-old female with a history of anxiety, migraine headaches, cp3 hydrocephalus status post DEMAND INSPECTOR shunt, Graves' disease, brain tumors status post resection on the right with chronic tumor on the left per history. The patient endorses 4 days of frontal headache described as aching and throbbing not relieved with sumatriptan. Patient denies fever, chills, nausea, vomiting, mental status change. Patient endorses her previous care has been provided by a neurosurgeon in [place] as related to the shunt and mass. The patient endorses her last visit to neurosurgery was in September.. Historical: - Allergies: 10:57 Iodine; ko1 10:57 Naproxen; ko1 10:57 tramadol; ko1 - PMHx: 10:57 Anxiety; BRAIN TUMOR; graves disease; Hydrocephalus; Migraines; Seizures; ko1 - PSHx: 10:57 Appendectomy; Brain sx; Cholecystectomy; eye sx; DEMAND INSPECTOR shunt; ko1 - Immunization history:: Adult Immunizations unknown. - Social history:: Smoking status: Patient denies any tobacco usage or history of. - Family history:: not pertinent. - Hospitalizations: : No recent hospitalization is reported. - History obtained from: EMS notes patient complained of headache neuro intact. ROS: 11:37 Constitutional: Negative for fever, chills, and weight loss, Eyes: Negative for injury, cp3 pain, redness, and discharge, ENT: Negative for injury, pain, and discharge, Neck: Negative for injury, pain, and swelling, Cardiovascular: Negative for chest pain, palpitations, and edema, Respiratory: Negative for shortness of breath, cough, wheezing, and pleuritic chest pain, Abdomen/GI: Negative for abdominal pain, nausea, vomiting, diarrhea, and constipation, Back: Negative for injury and pain, : Negative for injury, bleeding, discharge, and swelling, MS/Extremity: Negative for injury and deformity, Skin: Negative for injury, rash, and discoloration, Psych: Negative for depression, anxiety, suicide ideation, homicidal ideation, and hallucinations, Allergy/Immunology: Negative for hives, rash, and allergies, Endocrine: Negative for neck swelling, polydipsia, polyuria, polyphagia, and marked weight changes, Hematologic/Lymphatic: Negative for swollen nodes, abnormal bleeding, and unusual bruising, 11:37 Neuro: Positive for headache, Exam: 11:37 Head/Face: Normocephalic, atraumatic. cp3 11:37 Head/face: Plans for patient with a shunt to the right scalp that is soft no surrounding erythema . 11:37 Eyes: Pupils equal round and reactive to light, extra-ocular motions intact. Lids and cp3 lashes normal. Conjunctiva and sclera are non-icteric and not injected. Cornea within normal limits. Periorbital areas with no swelling, redness, or edema. Neck: Trachea midline, no thyromegaly or masses palpated, and no cervical lymphadenopathy. Supple, full range of motion without nuchal rigidity, or vertebral point tenderness. No Meningismus. Chest/axilla: Normal chest wall appearance and motion. Nontender with no deformity. No lesions are appreciated. Cardiovascular: Regular rate and rhythm with a normal S1 and S2. No gallops, murmurs, or rubs. Normal PMI, no JVD. No pulse deficits. Respiratory: Lungs have equal breath sounds bilaterally, clear to auscultation and percussion. No rales, rhonchi or wheezes noted. No increased work of breathing, no retractions or nasal flaring. Abdomen/GI: Soft, non-tender, with normal bowel sounds. No distension or tympany. No guarding or rebound. No evidence of tenderness throughout. Skin: Warm, dry with normal turgor. Normal color with no rashes, no lesions, and no evidence of cellulitis. MS/ Extremity: Pulses equal, no cyanosis. Neurovascular intact. Full, normal range of motion. Neuro: Awake and alert, GCS 15, oriented to person, place, time, and situation. Cranial nerves II-XII grossly intact. Motor strength 5/5 in all extremities. Sensory grossly intact. Cerebellar exam normal. Normal gait. Psych: Awake, alert, with orientation to person, place and time. Behavior, mood, and affect are within normal limits. 11:37 Constitutional: The patient appears in no acute distress, alert, awake, Vital Signs: 10:45 BP 123 / 70; Pulse 78; Resp 18; Temp 98.8(O); Pulse Ox 95% on R/A; ko1 11:35 BP 127 / 51; Pulse 71; Resp 18; Pulse Ox 95% ; ko1 12:18 BP 108 / 45; Pulse 74; Resp 16; Pulse Ox 95% ; ko1 13:05 BP 111 / 59; Pulse 72; Resp 18; Pulse Ox 100% on R/A; ld1 [place] Coma Score: 11:44 Eye Response: spontaneous(4). Motor Response: obeys commands(6). Verbal Response: cp3 oriented(5). Total: 15. Procedures: 11:44 Cardiac monitoring interpreted by me: Normal sinus rhythm rate of 71. cp3 MDM: 10:55 Patient medically screened. cp3 11:44 Differential diagnosis: intracerebral hemorrhage, migraine, neoplasm, subarachnoid cp3 bleed, subdural hematoma. Data reviewed: vital signs, nurses notes, EMS record. Consideration of Admission/Observation Escalation of care including admission/observation considered. ED course: Patient with multiple drug allergies. Reglan, fentanyl, normal saline provided. 12:58 Response to treatment: the patient's symptoms have markedly improved after treatment. 3 12/20 11:12 Order name: CT Head Brain wo Cont; Complete Time: 12:26 3 12/20 11:12 Order name: Shuntogram XRAY; Complete Time: 12:26 3 12/20 11:12 Order name: Saline Lock; Complete Time: 11:20 3 12/20 11:12 Order name: Cardiac monitoring; Complete Time: 11:20 cp3 Administered Medications: 11:26 Drug: fentaNYL (PF) IVP 25 mcg IVP once Route: IVP; Site: right antecubital; ko1 11:26 Drug: NS 0.9% IV 1000 ml IV at 1 bolus Per protocol; 1000 mL bolus Route: IV; Rate: 1 ko1 bolus; Site: right antecubital; 11:27 Drug: metoCLOPramide IVP 10 mg IVP once; over 1 to 2 minutes Route: IVP; Site: right ko1 antecubital; Disposition Summary: 12/20/22 12:49 Discharge Ordered Notes: Location: Home cp3 Problem: new cp3 Symptoms: have improved cp3 Condition: Stable cp3 Diagnosis - Migraine without aura, not intractable cp3 - Headache cp3 Followup: cp3 - With: Hema Kaur MD - When: - Reason: Recheck today's complaints Discharge Instructions: - Discharge Summary Sheet cp3 - Migraine Headache, Nars-ue-Aafn cp3 Forms: - Medication Reconciliation Form cp3 - Thank You Letter cp3 - Antibiotic Education cp3 - Prescription Opioid Use cp3 - Patient Portal Instructions cp3 - Leadership Thank You Letter cp3 Prescriptions: - acetaminophen-codeine 300-30 mg Oral tablet - take 2 tablet by ORAL route 3 times per day as needed for pain; 12 tablet; cp3 Refills: 0, Product Selection Permitted - promethazine 25 mg Oral Tablet - take 1 tablet by ORAL route every 6 hours As needed; 20 tablet; Refills: 0, cp3 Product Selection Permitted Signatures: Dispatcher [employer] Erin Powell MD MD cp3 Alla Ruvalcaba RN RN ko1
[2022-12-20 13:20] VITALS: TEMP 98.8
[2022-12-20 13:23] VITALS: BP 111/59; O2SAT 100
== END 2022-12-20 13:05 | disposition home or self-care (01) ==
LOC: ER 10:43
DX: G43.009 Migraine without aura, not intractable, without status migrainosus (principal); Z98.2 Presence of cerebrospinal fluid drainage device; Z88.5 Allergy status to narcotic agent; Z91.048 Other nonmedicinal substance allergy status
CPT/HCPCS: 70450; 75809; 49427; 96375; 96374; 99285; J2765; J3010; J7030

== ENCOUNTER 2023-02-28 08:35 | Emergency (ER) | payer OTHER ==
--- OUTSIDE RECORDS SUMMARY | 2023-02-28 08:51 | XMS REPORT | Continuity of Care Document ---
:1975 Author Organization [facility] t Address [address] [place] [address] [address] [place] [address] Care Team Providers Name Role Phone MARILU BROWNE Primary Care Physician Unavailable Sunil Chacon Attending Clinician Unavailable IMANI MARTINOHDonya Attending Clinician Unavailable MAGUI RAMIREZ Attending Clinician Unavailable Sharon HAHN, Alonso Buckner Attending Clinician Joelle BROOKS-CChayo Attending Clinician DINO ROSARIO Attending Clinician Unavailable NICOLAS AGUAYO Attending Clinician Unavailable NICOLAS AGUAYO Attending Clinician Unavailable EDUARDO ESCALANTE Attending Clinician Unavailable EDUARDO ESCALANTE Attending Clinician Unavailable Shila Medina RN Attending Clinician Unavailable Yogesh Lan MD Attending Clinician Khadra HAHN, Lilian Kathleen Attending Clinician GULSHAN COX Attending Clinician Unavailable Gulshan Cox MD Attending Clinician Doctor Unassigned, Jobos Attending Clinician Unavailable NADIAANGELA L Attending Clinician Unavailable Nadia BRUMFIELD, Angela L Attending Clinician Avery HAHN, Dino Attending Clinician YUMIKO MARRERO Attending Clinician Unavailable Nahun Ortez MD Attending Clinician Ju Frey MD, Kathy Attending Clinician Yumiko Marrero MD Attending Clinician Salena HAHN, Imani Carrion Attending Clinician Po, [facility] Lab Main Attending Clinician Unavailable Katherine BROOKS, Kathryn Velasquez Attending Clinician [phone] Gopi ELLIS, Norman Mcaky Attending Clinician Unavailable Debbie HAHN, Acacia Attending Clinician Kelvin HAHN, Joel Mendez Attending Clinician [phone] Binu HAHN, Fredi Attending Clinician Lauren Francois MD Attending Clinician Richelle Lowry MD Attending Clinician Alex Dillon MD Attending Clinician Mendez ELLIS, Rupinder Attending Clinician Unavailable FANNIE CADE S Attending Clinician Unavailable Rayo NAVARRETE, Fannie S Attending Clinician [facility], [facility] Nurse Attending Clinician Unavailable Angelina Quinones MD Attending Clinician ANGELINA QUINONES Attending Clinician Unavailable , Adc Echo Room 1 - Attending Clinician Unavailable Radha Meyerstt S Attending Clinician Denys Vázquez MD Attending Clinician [...] Number Effective Date Expiration Date S elsa [facility] [place] STAR [id number] 2019 PLUS 00:00:00 [place] [id number] 2019 Common [facility] 00:00:00 [facility][note 3] STAR [id number] 2019 PLAN 00:00:00 Problems Condition Condition Condition [...] Added automatic ally from request for surgery [id number] Chest Chest Disease Active Univers pain, pain, [...] vers varicella varicella 6-29 ity of 00:00: [place] [address] Medical Branch BMI BMI Disease Active Univers 45.0-49.9, 45.0-49.9, 6-28 it y of adult adult 00:00: [place] [address] Medical Branch Excessive Excessive Disease Active Uni vers or or 6-21 ity of frequent frequent 00:00: [place] menstruati menstruati 00 Me dical on on Branch Knee pain, Knee pain, Disease Active U nivers left left 4-05 ity of 00:00: [place] [address] Medical Branch Knee pain, Knee pain, Disease Active U nivers left left 4-05 ity of 00:00: Medical Branch Subclinica Subclinica Problem C ommon l l Spirit hyperthyro hyperthyro - [facility] idism 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 - [facility] placement [facility] [id number] Mixed Problem Common hyperlipid Spirit emia [facility] 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 [facility] [id number] Migraine Problem Comm on without [facility] aura and - [facility]I without [facility] migrainosu Medica l s, not Center intractabl e [id number] Abnormal Problem Comm on mammogram Spirit of left - [facility] breast [facility] [id number] Essential Problem Comm on hypertensi Spirit on - [facility] [id number] MARYBETH Problem Common (generaliz Spirit ed anxiety - CHI disorder) [facility] [id number] Insomnia, Problem Com mon unspecifie Spirit d type - [facility] Allergies, Adverse Reactions, Alerts Allergy Allergy Status Severity Reaction(s) Onset Inactive Treating Comm ents Source Name Type Date Date Clinician James Propensi Active Anaphylaxis Met hodi Nut ty to 09-09 st adverse 00:00: Hospita reaction 00 l s to drug PECAN DRUG Active High Anaphylaxis Unive rs NUT INGREDI - ity of 00:: 00 Medical Branch Pecan Propensi Active Anaphylaxis Uni vers Nut ty to 08 ity of adverse 00:00: [place] reaction 00 Medical s Branch Iodine Propensi Active Rash Methodi ty [...] 00:00: [place] reaction 00 Medical s Branch Tramadol Propensi Active Hallucinatio 2014- Univers ty to ns 8-14 ity of adverse 00:00: [place] reaction 00 Medical s Branch TRAMADOL DRUG Active Hallucinates 2014-0 Un vale INGREDI 8-14 ity of 00:00: [place] 00 Medical Branch Social History Social Habit Start Date Stop Date Quantity Comments Source History of Tobacco Common [facility] - Use [facility] Gender identity [facility] Sexual orientation [facility] History of Social 2022-08-04 2022-08-[address] function 00:00:00 00:00:00 Hospital Exposure to 2022-06-22 2022-07-02 Not sure University SARS-CoV-2 (event) 00:00:00 10:15:00 [facility] Education 2022-05-24 2022-05-24 21 University of 00:00:00 00:00:00 [facility] Alcohol intake 2021-08-26 2021-08-26 Ex-drinker Religious 00:00:00 00:00:00 (finding) Hospital Tobacco use and 2021-08-08 2021-08-08 Smokeless Religious exposure 00:00:00 00:00:00 tobacco non-user Hospital Sex Assigned At [birth year] [facility] 00:00:00 00:00:00 Hospital Smoking Status Start Date Stop Date Source Never smoked tobacco [facility] Medications Ordered Filled Start Stop [...] (two) times a day. famotidine 2023-0 2024- No 20mg Q.5D Take 1 Meth shay (Pepcid) 20 6-14 06-14 tablet (20 s t MG tablet 00:00: 04:59 mg total) Ho spita 00 :00 by mouth 2 l (two) times a day. famotidine 2023-0 2024- No 20mg Q.5D Take 1 Meth shay (Pepcid) 20 6-14 06-14 tablet (20 s t MG tablet 00:00: 04:59 mg total) Ho spita 00 :00 by mouth 2 l (two) times a day. famotidine 2023-0 2024- No 20mg Q.5D Take 1 Meth shay (Pepcid) 20 6-14 06-14 tablet (20 s t MG tablet 00:00: 04:59 mg total) Ho spita 00 :00 by mouth 2 l (two) times a day. famotidine 2023-0 2024- No 20mg Q.5D Take 1 Meth shay [...] 39 by mouth l tablet daily. levETIRAcet 2022-2022- No 500mg [id number] Take 1 Methodi am (KEPPRA) 08-[id number] 500 MG 00:00: 04:59 3D (500 mg Hospita tablet 00 :00 total) by l mouth 3 (three) times a day for 30 days. sertraline 2022-2022- No 100mg QD Take 2 Met hodi (ZOLOFT) 50 08-[address] MG tablet 00:00: 04:59 (100 mg Hosp isael 00 :00 total) by l mouth daily for 30 days. levETIRAcet 2022-2022- No 500mg Q.[id number] Take 1 [facility]i [facility] (KEPPRA) 08-[id number] 500 MG 00:00: 04:59 3D (500 mg Hospita tablet 00 :00 total) by l mouth 3 (three) times a day for 30 days. sertraline 2022-0 3- No 100mg QD Take 2 Met hodi (ZOLOFT) 50 08-05- tablets st MG tablet 00:00: 04:59 (100 mg Hosp isael 00 :00 total) by l mouth daily for 30 days. levETIRAcet 2022-2022- No 500mg Q.[id number] Take 1 Methodi [facility] (KEPPRA) 08-[id number] 500 MG 00:00: 04:59 3D (500 mg Hospita tablet 00 :00 total) by l mouth 3 (three) times a day for 30 days. sertraline 2022-0 2022- No 100mg QD Take 2 Met hodi (ZOLOFT) 50 08-05- tablets st MG tablet 00:00: 04:59 (100 mg Hosp isael 00 :00 total) by l mouth daily for 30 days. levETIRAcet 2022- No 500mg Q.[id number] Take 1 Methodi am (KEPPRA) 08-05- [id number] tablet st 500 MG 00:00: 04:59 3D (500 mg Hospita tablet 00 :00 total) by l mouth 3 (three) times a day for 30 days. sertraline 2022- No 100mg QD Take 2 Met hodi (ZOLOFT) 50 08-[address] MG tablet 00:00: 04:59 (100 mg Hosp isael 00 :00 total) by l mouth daily for 30 days. sumatriptan 0 Yes Take by Uni vers succ/naprox 4-20 mouth as ity of en sod 08:29: needed. [place] (SUMATRIPTA 03 Medical N-NAPROXEN Branch ORAL) sertraline 2022-0 Yes Take by Univ ers HCl (ZOLOFT 4-20 mouth. ity of ORAL) 08:29: [place] [facility] Branch sumatriptan 2022-0 Yes Take by Uni vers succ/naprox 4-20 mouth as ity of en sod 08:29: needed. [place] (SUMATRIPTA 03 Medical N-NAPROXEN Branch ORAL) sertraline 2022-0 Yes Take by Univ ers HCl (ZOLOFT 4-20 mouth. ity of ORAL) 08:29: [place] [facility] Branch sumatriptan 2022-0 Yes Take by Uni vers succ/naprox 4-20 mouth as ity of en sod 08:29: needed. [place] (SUMATRIPTA 03 Medical N-NAPROXEN Branch ORAL) sertraline 2022-0 Yes Take by Univ ers HCl (ZOLOFT 4-20 mouth. ity of ORAL) 08:29: [address] Branch sumatriptan 2023-0 Yes Take by Uni vers succ/naprox 4-20 mouth as ity of en sod 08:29: needed. [place] (SUMATRIPTA 03 Medical N-NAPROXEN Branch ORAL) sertraline 3-0 Yes Take by Uni vers HCl (ZOLOFT 4-20 mouth. ity of ORAL) 08:29: [place] [address] Medical Branch sumatriptan 2023-0 Yes Take by Uni vers succ/naprox 4-20 mouth as ity of en sod 08:29: needed. [place] (SUMATRIPTA 03 Medical N-NAPROXEN Branch ORAL) sertraline 3-0 Yes Take by Univ ers HCl (ZOLOFT 4-20 mouth. ity of ORAL) 08:29: [place] Medical Branch diltiazem 2023-0 Yes [id number] 30mg Take 1 Un vale 30 mg 4-20 tablet by ity of tablet 00:00: mouth [place] 00 every 8 Medical (eight) Branch hours. diltiazem 2023-0 Yes [id number] 30mg Take 1 Un vale 30 mg 4-20 tablet by ity of tablet 00:00: mouth [place] 00 every 8 Medical (eight) Branch hours. diltiazem 2023-0 Yes [id number] 30mg Take 1 Un vale 30 mg 4-20 tablet by ity of tablet 00:00: mouth [place] 00 every 8 Medical (eight) Branch hours. diltiazem 2023-0 Yes [id number] 30mg Take 1 Un vale 30 mg [...] 2 l (two) times a day. diltiazem Yes 30mg Q.5D Take 1 Method i (CardIZEM) 4-20 tablet (30 st 30 MG 00:00: mg total) Hospita tablet 00 by mouth 2 l (two) times a day. Lyrica 75 Lyrica 75 0 No 1{capsu QD Lyrica 75 MG MG 4-06 le} MG 00:00: 00 FENTanyl PF Yes 25ug 25 mcg, Uni vers (SUBLIMAZE 07-02 Slow IV ity of (PF)) 19:50: Push, [...] by mouth ity of ORAL 18:24: daily. [address] pregabalin 0 Yes Take by [facility] ers (LYRICA 07-02 mouth ity of ORAL) 18:24: daily. [address] montelukast 2022-0 Yes 10mg Take 10 mg Univers 10 mg - by mouth ity of tablet 18:24: daily. [address] sumatriptan 0 Yes Take by Uni vers succ/naprox 07-02 mouth as ity of en sod 18:24: needed. [place] (SUMATRIPTA [address] [place] [address] N-NAPROXEN Branch ORAL) SERTraline 0 Yes 100mg Take 100 Un vale 100 mg 3-31 mg by ity of tablet 18:24: mouth daily. Medical Branch sertraline 2022-0 Yes Take by Univ ers HCl (ZOLOFT 3-31 mouth. ity of ORAL) 18:24: [place] Medical Branch HYDROCHLORO 3-0 Yes 10mg Take [...] of ORAL) 18:24: [place] Medical Branch HYDROCHLORO 2023-0 Yes 10mg Take [...] (ZOLOFT 3-31 mouth. ity of ORAL) 18:24: [place] [address] Medical Branch HYDROCHLORO 2022-0 Yes 10mg Take 10 mg Univers THIAZIDE 3-31 by mouth ity of ORAL 18:24: daily. [place] Medical Branch pregabalin 2022-0 Yes Take by Uni vers (LYRICA 3-31 mouth ity of ORAL) 18:24: [...] (ZOLOFT 3-31 mouth. ity of ORAL) 18:24: [place] [address] Medical Branch HYDROCHLORO 2022-0 Yes 10mg Take [...] Medical Branch pregabalin 3-0 Yes Take by [facility] ers (LYRICA 3-31 mouth ity of ORAL) [...] mg by ity of tablet 18:24: mouth [place] daily. Medical Branch HYDROCHLORO 0 Yes 10mg Take 10 mg Univers THIAZIDE 3-31 by mouth ity of ORAL 18:24: daily. [place] Medical Branch pregabalin 0 Yes Take by Univ ers (LYRICA 3-31 mouth ity of ORAL) 18:24: daily. [place] Medical Branch montelukast Yes 10mg Take 10 mg Univers 10 mg 3-31 by mouth ity of tablet 18:24: daily. [place] Medical Branch SERTraline Yes 100mg Take 100 Un vale 100 mg 3-31 mg by ity of tablet 18:24: mouth [place] daily. Medical Branch atorvastati Yes 40mg 40 mg, Univ ers n (LIPITOR) 2-20 Oral, QPM, it y of tablet 40 23:00: [place] dose [place] 00 on [facility] 05/24/22 at Branch 1700, Until Discontinu ed, Routine HYDROCHLORO Yes 10mg Take 10 mg Univers THIAZIDE 2-20 by mouth ity of ORAL 20:15: daily. [address] Branch pregabalin Yes Take by [facility] ers (LYRICA 2-20 mouth ity of ORAL) 20:15: daily. [address] Branch montelukast Yes 10mg Take 10 mg Univers 10 mg 2-20 by mouth ity of tablet 20:15: daily. [address] Branch sumatriptan Yes Take by Uni vers succ/naprox 2-20 mouth as ity of en sod 20:15: needed. [place] (SUMATRIPTA 52 Medical N-NAPROXEN Branch ORAL) SERTraline 0 Yes 100mg Take 100 Un vale 100 mg 2-20 mg by ity of tablet 20:15: mouth [place] [address] daily. Medical Branch sertraline 0 Yes Take by [facility] ers HCl (ZOLOFT 2-20 mouth. ity of ORAL) 20:15: [address] Branch HYDROCHLORO 2022-0 Yes 10mg Take 10 mg Univers THIAZIDE 2-20 by mouth ity of ORAL 20:15: daily. [address] Branch pregabalin 0 Yes Take by Univ ers (LYRICA 2-20 mouth ity of ORAL) 20:15: daily. [place] [address] Medical Branch montelukast 2022-0 Yes 10mg Take 10 mg Univers 10 mg 2-20 by mouth ity of tablet 20:15: daily. [place] [address] Medical Branch sumatriptan 2022-0 Yes Take by Uni vers succ/naprox 2-20 mouth as ity of en sod 20:15: needed. [place] (SUMATRIPTA 52 Medical N-NAPROXEN Branch ORAL) SERTraline 2022-0 Yes 100mg Take 100 Un vale 100 mg 2-20 mg by ity of tablet 20:15: mouth [place] [address] daily. Medical Branch sertraline 2022-0 Yes Take by Univ ers HCl (ZOLOFT 2-20 mouth. ity of ORAL) 20:15: [place] [address] Medical Branch HYDROCHLORO 3-0 Yes 10mg Take 10 mg Univers THIAZIDE 2-20 by mouth ity of ORAL 20:15: daily. [place] [address] Medical Branch pregabalin 2022-0 Yes Take by [facility] ers (LYRICA 2-20 mouth ity of ORAL) 20:15: daily. [place] [address] Medical Branch montelukast 2022-0 Yes 10mg Take 10 mg Univers 10 mg 2-20 by mouth ity of tablet 20:15: daily. [place] [address] Medical Branch sumatriptan 2022-0 Yes Take by Uni vers succ/naprox 2-20 mouth as ity of en sod 20:15: needed. [place] (SUMATRIPTA 52 Medical N-NAPROXEN Branch ORAL) SERTraline 3-0 Yes 100mg Take 100 Un vale 100 mg 2-20 mg by ity of tablet 20:15: mouth [place] [address] daily. Medical Branch sertraline 2022-0 Yes Take by [facility] ers HCl (ZOLOFT 2-20 mouth. ity of ORAL) 20:15: [place] [address] Medical Branch HYDROCHLORO 3-0 Yes 10mg Take 10 mg Univers THIAZIDE 2-20 by mouth ity of ORAL 20:15: daily. [place] [address] Medical Branch pregabalin 3-0 Yes Take by Univ ers (LYRICA 2-20 mouth ity of ORAL) 20:15: daily. [place] [address] Medical Branch montelukast 3-0 Yes 10mg Take 10 mg Univers 10 mg 2-20 by mouth ity of tablet 20:15: daily. [place] [address] Medical Branch sumatriptan 2022-0 Yes Take by Uni vers succ/naprox 2-20 mouth as ity of en sod 20:15: needed. [place] (SUMATRIPTA 52 Medical N-NAPROXEN Branch ORAL) SERTraline 2022-0 Yes 100mg Take 100 Un vale 100 mg 2-20 mg by ity of tablet 20:15: mouth [place] [address] daily. Medical Branch sertraline 2022-0 Yes Take by Univ ers HCl (ZOLOFT 2-20 mouth. ity of ORAL) 20:15: [place] [address] Medical Branch HYDROCHLORO 2022-0 Yes 10mg Take 10 mg Univers THIAZIDE 2-20 by mouth ity of ORAL 20:15: daily. [place] [address] Medical Branch pregabalin 2022-0 Yes Take by Univ ers (LYRICA 2-20 mouth ity of ORAL) 20:15: daily. [place] [address] Medical Branch montelukast 2022-0 Yes 10mg Take 10 mg Univers 10 mg 2-20 by mouth ity of tablet 20:15: daily. [place] [address] Medical Branch sumatriptan 2022-0 Yes Take by Uni vers succ/naprox 2-20 mouth as ity of en sod 20:15: needed. [place] (SUMATRIPTA 52 Medical N-NAPROXEN Branch ORAL) SERTraline 2022-0 Yes 100mg Take 100 Un vale 100 mg 2-20 mg by ity of tablet 20:15: mouth [place] [address] daily. Medical Branch sertraline 2022-0 Yes Take by Univ ers HCl (ZOLOFT 2-20 mouth. ity of ORAL) 20:15: [place] [address] Medical Branch HYDROCHLORO 3-0 Yes 10mg Take 10 mg Univers THIAZIDE 2-20 by mouth ity of ORAL 20:15: daily. [place] [address] Medical Branch pregabalin 2022-0 Yes Take by Univ ers (LYRICA 2-20 mouth ity of ORAL) 20:15: daily. [place] [address] Medical Branch montelukast 3-0 Yes 10mg Take 10 mg Univers 10 mg 2-20 by mouth ity of tablet 20:15: daily. [place] [address] Medical Branch sumatriptan 2022-0 Yes Take by Uni vers succ/naprox 2-20 mouth as ity of en sod 20:15: needed. [place] (SUMATRIPTA 52 Medical N-NAPROXEN Branch ORAL) SERTraline 2022-0 Yes 100mg Take 100 Un vale 100 mg 2-20 mg by ity of tablet 20:15: mouth [place] [address] daily. Medical Branch sertraline 2022-0 Yes Take by [facility] ers HCl (ZOLOFT 2-20 mouth. ity of ORAL) 20:15: [place] [address] Medical Branch HYDROCHLORO 2022-0 Yes 10mg Take 10 mg Univers THIAZIDE 2-20 by mouth ity of ORAL 20:15: daily. [place] [address] Medical Branch pregabalin 2022-0 Yes Take by [facility] ers (LYRICA 2-20 mouth ity of ORAL) 20:15: daily. [place] [address] Medical Branch montelukast 2022-0 Yes 10mg Take 10 mg Univers 10 mg 2-20 by mouth ity of tablet 20:15: daily. [place] [address] Medical Branch sumatriptan 2022-0 Yes Take by Uni vers succ/naprox 2-20 mouth as ity of en sod 20:15: needed. [place] (SUMATRIPTA Medical N-NAPROXEN Branch ORAL) SERTraline 2022-0 Yes 100mg Take 100 Un vale 100 mg 2-20 mg by ity of tablet 20:15: mouth [place] [address] daily. Medical Branch sertraline 2022-0 Yes Take by [facility] ers HCl (ZOLOFT 2-20 mouth. ity of ORAL) 20:15: [place] [address] Medical Branch HYDROCHLORO 2022-0 Yes 10mg Take 10 mg Univers THIAZIDE 2-20 by mouth ity of ORAL 20:15: daily. [place] [address] Medical Branch pregabalin 2022-0 Yes Take by [facility] ers (LYRICA 2-20 mouth ity of ORAL) 20:15: daily. [place] [address] Medical Branch montelukast 2022-0 Yes 10mg Take 10 mg Univers 10 mg 2-20 by mouth ity of tablet 20:15: daily. [place] [address] Medical Branch sumatriptan 2022-0 Yes Take by Uni vers succ/naprox 2-20 mouth as ity of en sod 20:15: needed. [place] (SUMATRIPTA 52 Medical N-NAPROXEN Branch ORAL) SERTraline 3-0 Yes 100mg Take 100 Un vale 100 mg 2-20 mg by ity of tablet 20:15: mouth [place] [address] daily. Medical Branch sertraline 2022-0 Yes Take by Univ ers HCl (ZOLOFT 2-20 mouth. ity of ORAL) 20:15: [place] [address] Medical Branch HYDROCHLORO 2022-0 Yes 10mg Take 10 mg Univers THIAZIDE 2-20 by mouth ity of ORAL 20:15: daily. [place] [address] Medical Branch pregabalin 2022-0 Yes Take by Univ ers (LYRICA 2-20 mouth ity of ORAL) 20:15: daily. [place] [address] Medical Branch montelukast 2022-0 Yes 10mg Take 10 mg Univers 10 mg 2-20 by mouth ity of tablet 20:15: daily. [place] [address] Medical Branch sumatriptan 2022-0 Yes Take by Uni vers succ/naprox 2-20 mouth as ity of en sod 20:15: needed. [place] (SUMATRIPTA Medical N-NAPROXEN Branch ORAL) SERTraline 2022-0 Yes 100mg Take 100 Un vale 100 mg 2-20 mg by ity of tablet 20:15: mouth [place] [address] daily. Medical Branch sertraline 2022-0 Yes Take by Univ ers HCl (ZOLOFT 2-20 mouth. ity of ORAL) 20:15: [place] [address] Medical Branch HYDROCHLORO 2022-0 Yes 10mg Take 10 mg Univers THIAZIDE 2-20 by mouth ity of ORAL 20:15: daily. [place] [address] Medical Branch pregabalin 2022-0 Yes Take by Univ ers (LYRICA 2-20 mouth ity of ORAL) 20:15: daily. [place] [address] Medical Branch montelukast 2022-0 Yes 10mg Take 10 mg Univers 10 mg 2-20 by mouth ity of tablet 20:15: daily. [place] [address] Medical Branch sumatriptan 2022-0 Yes Take by Uni vers succ/naprox 2-20 mouth as ity of en sod 20:15: needed. [place] (SUMATRIPTA 52 Medical N-NAPROXEN Branch ORAL) SERTraline 2022-0 Yes 100mg Take 100 Un vale 100 mg 2-20 mg by ity of tablet 20:15: mouth [place] [address] daily. Medical Branch sertraline 2022-0 Yes Take by Univ ers HCl (ZOLOFT 2-20 mouth. ity of ORAL) 20:15: [place] [address] Medical Branch HYDROCHLORO 2022-0 Yes 10mg Take 10 mg Univers THIAZIDE 2-20 by mouth ity of ORAL 20:15: daily. [place] [address] Medical Branch pregabalin 2022-0 Yes Take by Univ ers (LYRICA 2-20 mouth ity of ORAL) 20:15: daily. [address] Branch montelukast 2022-0 Yes 10mg Take 10 mg Univers 10 mg 2-20 by mouth ity of tablet 20:15: daily. [address] Branch sumatriptan 2022-0 Yes Take by Uni vers succ/naprox 2-20 mouth as ity of en sod 20:15: needed. [place] (SUMATRIPTA 52 Medical N-NAPROXEN Branch ORAL) SERTraline 2022-0 Yes 100mg Take 100 Un vale 100 mg 2-20 mg by ity of tablet 20:15: mouth [place] [address] daily. Medical Branch sertraline 2022-0 Yes Take by Univ ers HCl (ZOLOFT 2-20 mouth. ity of ORAL) 20:15: [address] Branch HYDROCHLORO 3-0 Yes 10mg Take 10 mg Univers THIAZIDE 2-20 by mouth ity of ORAL 20:15: daily. [place] [address] Medical Branch pregabalin 2022-0 Yes Take by Univ ers (LYRICA 2-20 mouth ity of ORAL) 20:15: daily. [address] Branch montelukast 2022-0 Yes 10mg Take 10 mg Univers 10 mg 2-20 by mouth ity of tablet 20:15: daily. [address] Branch sumatriptan 2022-0 Yes Take by Uni vers succ/naprox 2-20 mouth as ity of en sod 20:15: needed. [place] (SUMATRIPTA 52 Medical N-NAPROXEN Branch ORAL) SERTraline 3-0 Yes 100mg Take 100 Un vale 100 mg 2-20 mg by ity of tablet 20:15: mouth [place] [address] daily. Medical Branch sertraline 3-0 Yes Take by Univ ers HCl (ZOLOFT 2-20 mouth. ity of ORAL) 20:15: [address] Branch HYDROCHLORO 3-0 Yes 10mg Take 10 mg Univers THIAZIDE 2-20 by mouth ity of ORAL 20:15: daily. [address] Branch pregabalin 3-0 Yes Take by Univ ers (LYRICA 2-20 mouth ity of ORAL) 20:15: daily. [address] montelukast 2022-0 Yes 10mg Take 10 mg Univers 10 mg 2-20 by mouth ity of tablet 20:15: daily. [place] [address] Medical Branch sumatriptan 2022-0 Yes Take by Uni vers succ/naprox 2-20 mouth as ity of en sod 20:15: needed. [place] (SUMATRIPTA 52 Medical N-NAPROXEN Branch ORAL) SERTraline 2022-0 Yes 100mg Take 100 Un vale 100 mg 2-20 mg by ity of tablet 20:15: mouth [place] [address] daily. Medical Branch sertraline 2022-0 Yes Take by Univ ers HCl (ZOLOFT 2-20 mouth. ity of ORAL) 20:15: [address] Branch HYDROCHLORO 2022-0 Yes 10mg Take 10 mg Univers THIAZIDE 2-20 by mouth ity of ORAL 20:15: daily. [address] Branch pregabalin 0 Yes Take by Univ ers (LYRICA 2-20 mouth ity of ORAL) 20:15: daily. [address] Branch montelukast 2022-0 Yes 10mg Take 10 mg Univers 10 mg 2-20 by mouth ity of tablet 20:15: daily. [address] Branch sumatriptan 0 Yes Take by Uni vers succ/naprox 2-20 mouth as ity of en sod 20:15: needed. [place] (SUMATRIPTA 52 Medical N-NAPROXEN Branch ORAL) SERTraline 2022-0 Yes 100mg Take 100 Un vale 100 mg 2-20 mg by ity of tablet 20:15: mouth [place] [address] daily. Medical Branch sertraline 2022-0 Yes Take by Univ ers HCl (ZOLOFT 2-20 mouth. ity of ORAL) 20:15: [address] sulfur 2022-0 2023- No [id number] 5mL 5 mL, Unive rs hexafluorid 2-20 -20 Intravenou i ty of e microsphr 17:45: 17:45 s, ONCE, 1 [place] (LUMASON) 00 :00 dose, On Medica l injection 5 Mon Branch mL 05/24/22 at 1145, Routine
count team member approving Restricted medication : FARSHAD CHACON pantoprazol 2022-0 Yes 40mg 40 mg, [facility] ers e 2-20 Oral, ity of (PROTONIX) 15:00: DAILY, [place] EC tablet 00 First dose Medi orin 40 mg on Tue05/24/22 at 0900, Until Discontinu ed, Routine aspirin 2022-0 2022- No 81mg 81 mg, [facility] chewable 05-24-20 Oral, ity of tablet 81 15:00: 19:14 DAILY, [place] mg 00 :40 First dose Medical on Tue05/24/22 at 0900, Until Discontinu ed, Routine heparin 0 Yes 5000U 5,000 [facility] (porcine) 2-20 Units, ity of injection 14:00: [place] 5,000 Units 00 us, Q12H, Med ical First dose Branch on Tue05/24/22 at 0800, Until Discontinu ed, Routine ondansetron Yes 4mg 4 mg, Slow Univers (ZOFRAN 2-20 IV Push, ity of (PF)) 11:05: Q6HPRN, [place] injection 4 33 Starting Medi orin mg on Tue05/24/22 at 0505, Until Discontinu ed, Routine, Nausea and Vomiting (N/V) morpHINE (4 0 2022- No 4mg 4 mg, Slow [facility] mg/mL) 05-24 IV Push, ity of injection 4 11:05: 11:04 Q4HPRN, [place] mg 16 :16 Starting Medical on Tue05/24/22 at 0505, Until Tu05/25/22 at 0504, Routine, Pain (scale 7-10) acetaminoph 0 Yes 650mg 650 mg, Un vale en -20 Oral, ity of (TYLENOL) 11:04: Q6HPRN, [place] tablet 650 52 Starting Medic al mg on Tue Branch 05/24/22 at 0504, Until Discontinu ed, Routine, Pain (scale 1-3) ondansetron 2022-0 2022- No 4mg 4 mg, Slow [facility] (ZOFRAN 2-20 -20 IV Push, ity of (PF)) 07:15: 06:38 ONCE, 1 [place] injection 4 00 :00 dose, On Medi orin mg Tue [place] 05/24/22 at 0115, JOSE LUIS HYDROCHLORO 2023-0 Yes 10mg Take 10 mg Univers THIAZIDE 2-20 by mouth ity of ORAL 05:03: daily. [place] [address] Medical Branch pregabalin 2022-0 Yes Take by [facility] ers (LYRICA 2-20 mouth ity of ORAL) 05:03: daily. [place] [address] Medical Branch montelukast 2022-0 Yes 10mg Take 10 mg Univers 10 mg 2-20 by mouth ity of tablet 05:03: daily. [place] [address] Medical Branch sumatriptan 2022-0 Yes Take by Uni vers succ/naprox 2-20 mouth as ity of en sod 05:03: needed. [place] (SUMATRIPTA 28 Medical N-NAPROXEN Branch ORAL) SERTraline 2022-0 Yes 100mg Take 100 Un vale 100 mg 2-20 mg by ity of tablet 05:03: mouth [place] 28 daily. Medical Branch sertraline 2022-0 Yes Take by [facility] ers HCl (ZOLOFT 2-20 mouth. ity of ORAL) 05:03: [place] [address] Medical Branch sumatriptan 2022-0 Yes Take by [...] 2 ity of tablet 15:56: 00:00 (two) [place] 39 :00 times Medical daily. Branch propranoloL 2021-04- No 10mg Take 10 mg [facility] 10 mg 2-14 12-14 by mouth 2 ity of tablet 15:56: 00:00 (two) [place] 39 :00 times Medical daily. Branch Macrobid [...] 6-22 75 MG 00:00: 00 Pregabalin Pregabalin 0 No Pregabalin 75 MG 75 MG 6-22 75 MG 00:00: 00 Pregabalin Pregabalin 2021-0 No Pregabalin 75 MG 75 MG 6-22 75 MG 00:00: 00 Pregabalin Pregabalin 2021-0 No Pregabalin 75 MG 75 MG 6-22 75 MG 00:00: 00 acetaminoph 2021- No [id number] 1{tbl} Q6H Take 1 [facility] en-codeine 6-13 -[address] (TYLENOL 00:00: 04:59 [facility] WITH 00 :00 every 6 l CODEINE #3) (six) 300-30 mg hours as per tablet needed for moderate pain for up to 10 [place] [id number] 1{tbl} Q6H Take 1 Methodi en-codeine 6-13 -[address] (TYLENOL 00:00: 04:59 [facility] WITH 00 :00 every 6 l CODEINE #3) (six) 300-30 mg hours as per tablet needed for moderate pain for up to 10 [place] [id number] 1{tbl} Q6H Take 1 Methodi en-codeine 6-13 -[address] (TYLENOL 00:00: 04:59 [facility] WITH 00 :00 every 6 l CODEINE #3) (six) 300-30 mg hours as per tablet needed for moderate pain for up to 10 [place] [id number] 1{tbl} Q6H Take 1 Methodi en-codeine 6-13 -[address] (TYLENOL 00:00: 04:59 [facility] WITH 00 :00 every 6 l CODEINE #3) (six) 300-30 mg hours as per tablet needed for moderate pain for up to 10 [place]. [place] [id number] 1{tbl} Q6H Take 1 Methodi en-codeine 6-13 [...] 00 :00 by mouth l daily. sertraline No 50mg QD Take 1 Meth shay (ZOLOFT) 50 09-1010 tablet (50 s t MG tablet 00:00: [...] (four) hours as needed (headaches ). levETIRAcet 2021-0 2022- No 500mg Q.5D Take [...] 2 (two) times a day. levETIRAcet 2021-0 3- No 500mg Q.5D Take 1 [facility] am (KEPPRA) 09-09-[address] 500 MG 00:00: 04:59 (500 mg Hospita tablet 00 :00 total) by l mouth 2 (two) times a day. levETIRAcet 2021-0 2022- No 500mg Q.5D Take 1 [facility] (KEPPRA) 6-[address] 500 MG 00:00: 00:00 (500 mg Hospita tablet 00 :00 total) by l mouth 2 (two) times a day. butalbitaL- 2021-2022- No 1{tbl} Q4H Take 1 M ethodi acetaminoph -11 06-[address] en (BUPAP) 00:00: 00:00 mouth Hospi ta 50-325 mg 00 :00 every 4 l tablet (four) hours as needed (headaches ). levETIRAcet 2021-0 2022- No 500mg Q.5D Take 1 [facility] (KEPPRA) 09-09-[address] 500 MG 00:00: 00:00 (500 mg Hospita tablet 00 :00 total) by l mouth 2 (two) times a day. butalbitaL- 2021-3- No 1{tbl} Q4H Take 1 M ethodi acetaminoph - 05-[address] en (BUPAP) 00:00: 00:00 mouth Hospi ta 50-325 mg 00 :00 every 4 l tablet (four) hours as needed (headaches ). levETIRAcet 2021-0 3- No 500mg Q.5D Take 1 [facility] (KEPPRA) 6- 05-[address] 500 MG 00:00: 00:00 (500 mg Hospita tablet 00 :00 total) by l mouth 2 (two) times a day. butalbitaL- 2021-0 2023- No 1{tbl} Q4H Take 1 M ethodi acetaminoph 6-08 05-[address] en (BUPAP) 00:00: 00:00 mouth Hospi ta 50-325 mg 00 :00 every 4 l tablet (four) hours as needed (headaches ). levETIRAcet 2021-0 2022- No 500mg Q.5D Take [...] (twelve) hours for 7 days. dexamethaso 2021-0 2- No 2mg Q.5D Take 1 Met hodi [...] 7 days. sertraline 2021-0 Yes Take by [facility] ers HCl (ZOLOFT 4-21 mouth. ity of ORAL) 13:25: [address] sertraline 2021-0 Yes Take by [facility] ers HCl (ZOLOFT 4-21 mouth. ity of ORAL) 13:25: [place] [facility] sertraline 0 Yes Take by Univ ers HCl (ZOLOFT 4-21 mouth. ity of ORAL) 13:25: [place] [facility] sertraline 0 Yes Take by Univ ers HCl (ZOLOFT 4-21 mouth. ity of ORAL) 13:25: [place] [address] Medical Branch sertraline 0 Yes Take by Univ ers HCl (ZOLOFT 4-21 mouth. ity of ORAL) 13:25: [place] [facility] sertraline 0 Yes Take by Univ ers HCl (ZOLOFT 4-21 mouth. ity of ORAL) 13:25: [place] [address] Medical Branch SERTraline 0 Yes 100mg Take 100 Un vale 100 mg 4-21 mg by ity of tablet 13:25: mouth [place] 20 daily. Medical Branch sertraline Yes Take by Univ ers HCl (ZOLOFT 4-21 mouth. ity of ORAL) 13:25: [place] [address] Medical Branch SERTraline 2021-0 Yes 100mg Take 100 Un vale 100 mg 4-21 mg by ity of tablet 13:25: mouth [place] 20 daily. Medical Branch sertraline Yes Take by Univ ers HCl (ZOLOFT 4-21 mouth. ity of ORAL) 13:25: [place] [facility] SERTraline 0 Yes 100mg Take 100 Un vale 100 mg 4-21 mg by ity of tablet 13:25: mouth [place] 20 daily. Medical Branch sertraline Yes Take by Univ ers HCl (ZOLOFT 4-21 mouth. ity of ORAL) 13:25: [place] [facility] SERTraline 2021-0 Yes 100mg Take 100 Un vale 100 mg 4-21 mg by ity of tablet 13:25: mouth [place] 20 daily. Medical Branch sertraline 0 Yes Take by Univ ers HCl (ZOLOFT 4-21 mouth. ity of ORAL) 13:25: [place] [address] Medical Branch SERTraline 2021-0 Yes 100mg Take [...] SERTraline 2021-0 Yes 100mg Take 100 Un avle 100 mg 4-21 mg by ity of tablet 13:25: mouth [place] 20 daily. Medical Branch sertraline Yes Take by Uni vers HCl (ZOLOFT 4-21 mouth. ity of ORAL) 13:25: [place] [facility] SERTraline 2021- Yes 100mg Take 100 Un vale 100 mg 4-21 mg by ity of tablet 13:25: mouth [place] 20 daily. Medical Branch sertraline Yes Take by Univ ers HCl (ZOLOFT 4-21 mouth. ity of ORAL) 13:25: [place] [address] Medical Branch SERTraline 2021- Yes 100mg Take 100 Un vale 100 mg 4-21 mg by ity of tablet 13:25: mouth [place] 20 daily. Medical Branch sertraline Yes Take by Univ ers HCl (ZOLOFT 4-21 mouth. ity of ORAL) 13:25: [place] [facility] SERTraline 2021- Yes 100mg Take 100 Un vale 100 mg 4-21 mg by ity of tablet 13:25: mouth [place] 20 daily. Medical Branch sertraline Yes Take by Univ ers HCl (ZOLOFT 4-21 mouth. ity of ORAL) 13:25: [place] [facility] SERTraline Yes 100mg Take 100 Un vale 100 mg 4-21 mg by ity of tablet 13:25: mouth [place] 20 daily. Medical Branch sertraline Yes Take by Univ ers HCl (ZOLOFT 4-21 mouth. ity of ORAL) 13:25: [place] [facility] sumatriptan Yes Take by Uni vers [...] No 1{capsu QD Lyrica 75 MG MG 05-07 le} MG 00:00: 00 Amoxicillin Amoxicillin 2022-0 2- No 1{table BID Amoxicilli -Pot -Pot 2-05-14 [...] 2022-0 No 1g Commo n (Ceftriaxon (Ceftriaxon 04-06 S pirit e) e) 00:00: - [facility] 00 [facility] Rocephin Rocephin 2021-0 No 1g Commo n (Ceftriaxon (Ceftriaxon 1-03 S pirit e) e) 00:00: - [facility] 00 [facility] Rocephin Rocephin 2021-0 No 1g Commo n (Ceftriaxon (Ceftriaxon 1-03 S pirit e) e) 00:00: - [facility] 00 [facility] Rocephin Rocephin 2021-0 No 1g Commo n (Ceftriaxon (Ceftriaxon 1-03 S pirit e) e) 00:00: - [facility] 00 [facility] Rocephin Rocephin 2021-0 No 1g Commo n (Ceftriaxon (Ceftriaxon 1-03 S pirit e) e) 00:00: - [facility] 00 [facility] Rocephin Rocephin 2021-0 No 1g Commo n (Ceftriaxon (Ceftriaxon 1-03 S pirit e) e) 00:00: - [facility] 00 [facility] Rocephin Rocephin 2021-0 No 1g Commo n (Ceftriaxon (Ceftriaxon 1-03 S pirit e) e) 00:00: - [facility] 00 [facility] Rocephin Rocephin 2021-0 No 1g Commo n (Ceftriaxon (Ceftriaxon 1-03 S pirit e) e) 00:00: - [facility] 00 [facility] Rocephin Rocephin 2021-0 No 1g Commo n (Ceftriaxon (Ceftriaxon 1-03 S pirit e) e) 00:00: - [facility] 00 [facility] Rocephin Rocephin 2021-0 No 1g Commo n (Ceftriaxon (Ceftriaxon 1-03 S pirit e) e) 00:00: - [facility] 00 [facility] Rocephin Rocephin 2021-0 No 1g Commo n (Ceftriaxon (Ceftriaxon 1-03 S pirit e) e) 00:00: - [facility] 00 [facility] Rocephin Rocephin 2021-0 No 1g Commo n (Ceftriaxon (Ceftriaxon 1-03 S pirit e) e) 00:00: - [facility] 00 [facility] Rocephin Rocephin 2021-0 No 1g Commo n (Ceftriaxon (Ceftriaxon 1-03 S pirit e) e) 00:00: - [facility] 00 [facility] Marjhin Rocephin 2021-0 No 1g Commo n (Ceftriaxon (Ceftriaxon 1-03 S pirit e) e) 00:00: - [facility] 00 [facility] Rockortneywvn Rocephin 2021-0 No 1g Commo n (Ceftriaxon (Ceftriaxon 1-03 S pirit e) e) 00:00: - [facility] 00 [facility] Marjwvn Rocephin 2021-0 No 1g Commo n (Ceftriaxon (Ceftriaxon 1-03 S pirit e) e) 00:00: - [facility] 00 [facility] Marjwvn Rocephin 2021-0 No 1g Commo n (Ceftriaxon (Ceftriaxon 1-03 S pirit e) e) 00:00: - [facility] 00 [facility] Marjwvn Marjhin 2021-0 No 1g Commo n (Ceftriaxon (Ceftriaxon 1-03 S pirit e) e) 00:00: - [facility] 00 [facility] Sulfamethox Sulfamethox 2021-0 2- No 1{table BID azole-Trime azole-Trime 04-06 t} [...] ta 00 :00 l ondansetron 2020-04 Yes [id number] 4mg Take 1 [facility] (ZOFRAN 1-08 tablet by ity of ODT) 4 mg 00:00: mouth [place] disintegrat 00 every 8 Medic al ing tablet (eight) Branch hours as needed for Nausea and Vomiting (N/V). meclizine 2020-04 Yes [id number] 25mg Take 1 Un vale 25 mg 1-08 tablet by ity of tablet 00:00: mouth [place] 00 every 6 Medical (six) Branch hours. naproxen 2020-04 Yes [id number] 500mg Take 1 Un vale (NAPROSYN) 1-08 tablet by ity of 500 mg 00:00: mouth 2 [place] tablet 00 (two) Medical times Branch daily with meals. methocarbam 2020-04 Yes [id number] 500mg Take 1 Univers oL 500 mg 1-08 tablet by ity o f tablet 00:00: mouth 4 [place] 00 (four) Medical times Branch daily as needed for Pain (scale 4-6). ondansetron 2020-04 Yes [id number] 4mg Take 1 [facility] (ZOFRAN 1-08 tablet by ity of ODT) 4 mg 00:00: mouth [place] disintegrat 00 every 8 Medic al ing tablet (eight) Branch hours as needed for Nausea and Vomiting (N/V). meclizine 2020-04 Yes [id number] 25mg Take 1 Un vale 25 mg 1-08 tablet by ity of tablet 00:00: mouth [place] 00 every 6 Medical (six) Branch hours. naproxen 2020-04 Yes [id number] 500mg Take 1 Un vale (NAPROSYN) 1-08 tablet by ity of 500 mg 00:00: mouth 2 [place] tablet 00 (two) Medical times Branch daily with meals. methocarbam 2020-04 Yes [id number] 500mg Take 1 Univers oL 500 mg 1-08 tablet by ity o f tablet 00:00: mouth 4 [place] 00 (four) Medical times Branch daily as needed for Pain (scale 4-6). ondansetron 2020-04 Yes [id number] 4mg Take 1 [facility] (ZOFRAN 1-08 tablet by ity of ODT) 4 mg 00:00: mouth [place] disintegrat 00 every 8 Medic al ing tablet (eight) Branch hours as needed for Nausea and Vomiting (N/V). meclizine 2020-04 Yes [id number] 25mg Take 1 Un vale 25 mg 1-08 tablet by ity of tablet 00:00: mouth [place] 00 every 6 Medical (six) Branch hours. naproxen 2020-04 Yes [id number] 500mg Take 1 Un vale (NAPROSYN) 1-08 tablet by ity of 500 mg 00:00: mouth 2 [place] tablet 00 (two) Medical times Branch daily with meals. methocarbam 2020-04 Yes [id number] 500mg Take 1 Univers oL 500 mg 1-08 tablet by ity o f tablet 00:00: mouth 4 [place] 00 (four) Medical times Branch daily as needed for Pain (scale 4-6). ondansetron 2020-04 Yes [id number] 4mg Take 1 [facility] (ZOFRAN 1-08 tablet by ity of ODT) 4 mg 00:00: mouth [place] disintegrat 00 every 8 Medic al ing tablet (eight) Branch hours as needed for Nausea and Vomiting (N/V). meclizine 2020-04 Yes [id number] 25mg Take 1 Un vale 25 mg 1-08 tablet by ity of tablet 00:00: mouth [place] 00 every 6 Medical (six) Branch hours. naproxen 2020-04 Yes [id number] 500mg Take 1 Un vale (NAPROSYN) 1-08 tablet by ity of 500 mg 00:00: mouth 2 [place] tablet 00 (two) Medical times Branch daily with meals. methocarbam 2020-04 Yes [id number] 500mg Take 1 Univers oL 500 mg 1-08 tablet by ity o f tablet 00:00: mouth 4 [place] 00 (four) Medical times Branch daily as needed for Pain (scale 4-6). ondansetron 2020-04 Yes [id number] 4mg Take 1 [facility] (ZOFRAN 1-08 tablet by ity of ODT) 4 mg 00:00: mouth [place] disintegrat 00 every 8 Medic al ing tablet (eight) Branch hours as needed for Nausea and Vomiting (N/V). meclizine 2020-04 Yes [id number] 25mg Take 1 Un vale 25 mg 1-08 tablet by ity of tablet 00:00: mouth [place] 00 every 6 Medical (six) Branch hours. naproxen 2020-04 Yes [id number] 500mg Take 1 Un vale (NAPROSYN) 1-08 tablet by ity of 500 mg 00:00: mouth 2 [place] tablet 00 (two) Medical times Branch daily with meals. methocarbam 2020-04 Yes [id number] 500mg Take 1 Univers oL 500 mg 1-08 tablet by ity o f tablet 00:00: mouth 4 [place] 00 (four) Medical times Branch daily as needed for Pain (scale 4-6). ondansetron 2020-04 Yes [id number] 4mg Take 1 [facility] (ZOFRAN 1-08 tablet by ity of ODT) 4 mg 00:00: mouth [place] disintegrat 00 every 8 Medic al ing tablet (eight) Branch hours as needed for Nausea and Vomiting (N/V). meclizine 2020-04 Yes [id number] 25mg Take 1 Un vale 25 mg 1-08 tablet by ity of tablet 00:00: mouth [place] 00 every 6 Medical (six) Branch hours. naproxen 2020-04 Yes [id number] 500mg Take 1 Un vale (NAPROSYN) 1-08 tablet by ity of 500 mg 00:00: mouth 2 [place] tablet 00 (two) Medical times Branch daily with meals. methocarbam 2020-04 Yes [id number] 500mg Take 1 Univers oL 500 mg 1-08 tablet by ity o f tablet 00:00: mouth 4 [place] 00 (four) Medical times Branch daily as needed for Pain (scale 4-6). ondansetron 2020-04 Yes [id number] 4mg Take 1 [facility] (ZOFRAN 1-08 tablet by ity of ODT) 4 mg 00:00: mouth [place] disintegrat 00 every 8 Medic al ing tablet (eight) Branch hours as needed for Nausea and Vomiting (N/V). meclizine 2020-04 Yes [id number] 25mg Take 1 Un vale 25 mg 1-08 tablet by ity of tablet 00:00: mouth [place] 00 every 6 Medical (six) Branch hours. naproxen 2020-04 Yes [id number] 500mg Take 1 Un vale (NAPROSYN) 1-08 tablet by ity of 500 mg 00:00: mouth 2 [place] tablet 00 (two) Medical times Branch daily with meals. methocarbam 2020-04 Yes [id number] 500mg Take 1 Univers oL 500 mg 1-08 tablet by ity o f tablet 00:00: mouth 4 [place] 00 (four) Medical times Branch daily as needed for Pain (scale 4-6). ondansetron 2020-04 Yes [id number] 4mg Take 1 Univers (ZOFRAN 1-08 tablet by ity of ODT) 4 mg 00:00: mouth [place] disintegrat 00 every 8 Medic al ing tablet (eight) Branch hours as needed for Nausea and Vomiting (N/V). meclizine 2020-04 Yes [id number] 25mg Take 1 Un vale 25 mg 1-08 tablet by ity of tablet 00:00: mouth [place] 00 every 6 Medical (six) Branch hours. naproxen 2020-04 Yes [id number] 500mg Take 1 Un vale (NAPROSYN) 1-08 tablet by ity of 500 mg 00:00: mouth 2 [place] tablet 00 (two) Medical times Branch daily with meals. methocarbam 2020-04 Yes [id number] 500mg Take 1 Univers oL 500 mg 1-08 tablet by ity o f tablet 00:00: mouth 4 [place] 00 (four) Medical times Branch daily as needed for Pain (scale 4-6). ondansetron 2020-04 Yes [id number] 4mg Take 1 [facility] (ZOFRAN 1-08 tablet by ity of ODT) 4 mg 00:00: mouth [place] disintegrat 00 every 8 Medic al ing tablet (eight) Branch hours as needed for Nausea and Vomiting (N/V). meclizine 2020-04 Yes [id number] 25mg Take 1 Un vale 25 mg 1-08 tablet by ity of tablet 00:00: mouth [place] 00 every 6 Medical (six) Branch hours. naproxen 2020-04 Yes [id number] 500mg Take 1 Un vale (NAPROSYN) 1-08 tablet by ity of 500 mg 00:00: mouth 2 [place] tablet 00 (two) Medical times Branch daily with meals. methocarbam 2020-04 Yes [id number] 500mg Take 1 Univers oL 500 mg 1-08 tablet by ity o f tablet 00:00: mouth 4 [place] 00 (four) Medical times Branch daily as needed for Pain (scale 4-6). ondansetron 2020-04 Yes [id number] 4mg Take 1 [facility] (ZOFRAN 1-08 tablet by ity of ODT) 4 mg 00:00: mouth [place] disintegrat 00 every 8 Medic al ing tablet (eight) Branch hours as needed for Nausea and Vomiting (N/V). meclizine 2020-04 Yes [id number] 25mg Take 1 Un vale 25 mg 1-08 tablet by ity of tablet 00:00: mouth [place] 00 every 6 Medical (six) Branch hours. naproxen 2020-04 Yes [id number] 500mg Take 1 Un vale (NAPROSYN) 1-08 tablet by ity of 500 mg 00:00: mouth 2 [place] tablet 00 (two) Medical times Branch daily with meals. methocarbam 2020-04 Yes [id number] 500mg Take 1 [facility] oL 500 mg 1-08 tablet by ity o f tablet 00:00: mouth 4 [place] 00 (four) Medical times Branch daily as needed for Pain (scale 4-6). ondansetron 2020-04 Yes [id number] 4mg Take 1 [facility] (ZOFRAN 1-08 tablet by ity of ODT) 4 mg 00:00: mouth [place] disintegrat 00 every 8 Medic al ing tablet (eight) Branch hours as needed for Nausea and Vomiting (N/V). meclizine 2020-04 Yes [id number] 25mg Take 1 Un vale 25 mg 1-08 tablet by ity of tablet 00:00: mouth [place] 00 every 6 Medical (six) Branch hours. naproxen 2020-04 Yes [id number] 500mg Take 1 Un vale (NAPROSYN) 1-08 tablet by ity of 500 mg 00:00: mouth 2 [place] tablet 00 (two) Medical times Branch daily with meals. methocarbam 2020-04 Yes [id number] 500mg Take 1 [facility] oL 500 mg 1-08 tablet by ity o f tablet 00:00: mouth 4 [place] 00 (four) Medical times Branch daily as needed for Pain (scale 4-6). ondansetron 2020-04 Yes [id number] 4mg Take 1 [facility] (ZOFRAN 1-08 tablet by ity of ODT) 4 mg 00:00: mouth [place] disintegrat 00 every 8 Medic al ing tablet (eight) Branch hours as needed for Nausea and Vomiting (N/V). meclizine 2020-04 Yes [id number] 25mg Take 1 Un vale 25 mg 1-08 tablet by ity of tablet 00:00: mouth [place] 00 every 6 Medical (six) Branch hours. naproxen 2020-04 Yes [id number] 500mg Take 1 Un vale (NAPROSYN) 1-08 tablet by ity of 500 mg 00:00: mouth 2 [place] tablet 00 (two) Medical times Branch daily with meals. methocarbam 2020-04 Yes [id number] 500mg Take 1 [facility] oL 500 mg 1-08 tablet by ity o f tablet 00:00: mouth 4 [place] 00 (four) Medical times Branch daily as needed for Pain (scale 4-6). ondansetron 2020-04 Yes [id number] 4mg Take 1 [facility] (ZOFRAN 1-08 tablet by ity of ODT) 4 mg 00:00: mouth [place] disintegrat 00 every 8 Medic al ing tablet (eight) Branch hours as needed for Nausea and Vomiting (N/V). meclizine 2020-04 Yes [id number] 25mg Take 1 Un vale 25 mg 1-08 tablet by ity of tablet 00:00: mouth [place] 00 every 6 Medical (six) Branch hours. naproxen 2020-04 Yes [id number] 500mg Take 1 Un avle (NAPROSYN) 1-08 tablet by ity of 500 mg 00:00: mouth 2 [place] tablet 00 (two) Medical times Branch daily with meals. methocarbam 2020-04 Yes [id number] 500mg Take 1 [facility] oL 500 mg 1-08 tablet by ity o f tablet 00:00: mouth 4 [place] 00 (four) Medical times Branch daily as needed for Pain (scale 4-6). ondansetron 2020-04 Yes [id number] 4mg Take 1 [facility] (ZOFRAN 1-08 tablet by ity of ODT) 4 mg 00:00: mouth [place] disintegrat 00 every 8 Medic al ing tablet (eight) Branch hours as needed for Nausea and Vomiting (N/V). meclizine 2020-04 Yes [id number] 25mg Take 1 Un vale 25 mg 1-08 tablet by ity of tablet 00:00: mouth [place] 00 every 6 Medical (six) Branch hours. naproxen 2020-04 Yes [id number] 500mg Take 1 Un vale (NAPROSYN) 1-08 tablet by ity of 500 mg 00:00: mouth 2 [place] tablet 00 (two) Medical times Branch daily with meals. methocarbam 2020-04 Yes [id number] 500mg Take 1 [facility] oL 500 mg 1-08 tablet by ity o f tablet 00:00: mouth 4 [place] 00 (four) Medical times Branch daily as needed for Pain (scale 4-6). ondansetron 2020-04 Yes [id number] 4mg Take 1 [facility] (ZOFRAN 1-08 tablet by ity of ODT) 4 mg 00:00: mouth [place] disintegrat 00 every 8 Medic al ing tablet (eight) Branch hours as needed for Nausea and Vomiting (N/V). meclizine 2020-04 Yes [id number] 25mg Take 1 Un vale 25 mg 1-08 tablet by ity of tablet 00:00: mouth [place] 00 every 6 Medical (six) Branch hours. naproxen 2020-04 Yes [id number] 500mg Take 1 Un vale (NAPROSYN) 1-08 tablet by ity of 500 mg 00:00: mouth 2 [place] tablet 00 (two) Medical times Branch daily with meals. methocarbam 2020-04 Yes [id number] 500mg Take 1 [facility] oL 500 mg 1-08 tablet by ity o f tablet 00:00: mouth 4 [place] 00 (four) Medical times Branch daily as needed for Pain (scale 4-6). ondansetron 2020-04 Yes [id number] 4mg Take 1 [facility] (ZOFRAN 1-08 tablet by ity of ODT) 4 mg 00:00: mouth [place] disintegrat 00 every 8 Medic al ing tablet (eight) Branch hours as needed for Nausea and Vomiting (N/V). meclizine 2020-04 Yes [id number] 25mg Take 1 Un vale 25 mg 1-08 tablet by ity of tablet 00:00: mouth [place] 00 every 6 Medical (six) Branch hours. naproxen 2020-04 Yes [id number] 500mg Take 1 Un vale (NAPROSYN) 1-08 tablet by ity of 500 mg 00:00: mouth 2 [place] tablet 00 (two) Medical times Branch daily with meals. methocarbam 2020-04 Yes [id number] 500mg Take 1 [facility] oL 500 mg 1-08 tablet by ity o f tablet 00:00: mouth 4 [place] 00 (four) Medical times Branch daily as needed for Pain (scale 4-6). ondansetron 2020-04 Yes [id number] 4mg Take 1 [facility] (ZOFRAN 1-08 tablet by ity of ODT) 4 mg 00:00: mouth [place] disintegrat 00 every 8 Medic al ing tablet (eight) Branch hours as needed for Nausea and Vomiting (N/V). meclizine 2020-04 Yes [id number] 25mg Take 1 Un vale 25 mg 1-08 tablet by ity of tablet 00:00: mouth [place] 00 every 6 Medical (six) Branch hours. naproxen 2020-04 Yes [id number] 500mg Take 1 Un vale (NAPROSYN) 1-08 tablet by ity of 500 mg 00:00: mouth 2 [place] tablet 00 (two) Medical times Branch daily with meals. methocarbam 2020-04 Yes [id number] 500mg Take 1 [facility] oL 500 mg 1-08 tablet by ity o f tablet 00:00: mouth 4 [place] 00 (four) Medical times Branch daily as needed for Pain (scale 4-6). ondansetron 2020-04 Yes [id number] 4mg Take 1 [facility] (ZOFRAN 1-08 tablet by ity of ODT) 4 mg 00:00: mouth [place] disintegrat 00 every 8 Medic al ing tablet (eight) Branch hours as needed for Nausea and Vomiting (N/V). meclizine 2020-04 Yes [id number] 25mg Take 1 Un vale 25 mg 1-08 tablet by ity of tablet 00:00: mouth [place] 00 every 6 Medical (six) Branch hours. naproxen 2020-04 Yes [id number] 500mg Take 1 Un vale (NAPROSYN) 1-08 tablet by ity of 500 mg 00:00: mouth 2 [place] tablet 00 (two) Medical times Branch daily with meals. methocarbam 2020-04 Yes [id number] 500mg Take 1 [facility] o[facility] 500 mg 1-08 tablet by [facility] o f tablet 00:00: mouth 4 [place] 00 (four) Medical times Branch daily as needed for Pain (scale 4-6). ondansetron 2020-04 Yes [id number] 4mg Take 1 [facility] (ZOFRAN 1-08 tablet by ity of ODT) 4 mg 00:00: mouth [place] disintegrat 00 every 8 Medic al ing tablet (eight) Branch hours as needed for Nausea and Vomiting (N/V). meclizine 2020-04 Yes [id number] 25mg Take 1 [facility] vale 25 mg 1-08 tablet by [facility] of tablet 00:00: mouth [place] 00 every 6 Medical (six) Branch hours. naproxen 2020-04 Yes [id number] 500mg Take 1 [facility] vale (NAPROSYN) 1-08 tablet by [facility] of 500 mg 00:00: mouth 2 [place] tablet 00 (two) Medical times Branch daily with meals. methocarbam 2020-04 Yes [id number] 500mg Take 1 [facility] oL 500 mg 1-08 tablet by [facility] o f tablet 00:00: mouth 4 [place] 00 (four) Medical times Branch daily as needed for Pain (scale 4-6). ondansetron 2020-04 Yes [id number] 4mg Take 1 [facility] (ZOFRAN 1-08 tablet by ity of ODT) 4 mg 00:00: mouth [place] disintegrat 00 every 8 Medic al ing tablet (eight) Branch hours as needed for Nausea and Vomiting (N/V). meclizine 2020-04 Yes [id number] 25mg Take 1 [facility] vale 25 mg 1-08 tablet by [facility] of tablet 00:00: mouth [place] 00 every 6 Medical (six) Branch hours. naproxen 2020-04 Yes [id number] 500mg Take 1 [facility] vale (NAPROSYN) 1-08 tablet by [facility] of 500 mg 00:00: mouth 2 [place] tablet 00 (two) Medical times Branch daily with meals. methocarbam 2020-04 Yes [id number] 500mg Take 1 [facility] oL 500 mg 1-08 tablet by it[facility] o f tablet 00:00: mouth 4 [place] 00 (four) Medical times Branch daily as needed for Pain (scale 4-6). ondansetron 2020-04 Yes [id number] 4mg Take 1 [facility] (ZOFRAN 1-08 tablet by ity of ODT) 4 mg 00:00: mouth [place] disintegrat 00 every 8 Medic al ing tablet (eight) Branch hours as needed for Nausea and Vomiting (N/V). meclizine 2020-04 Yes [id number] 25mg Take 1 [facility] vale 25 mg 1-08 tablet by [facility] of tablet 00:00: mouth [place] 00 every 6 Medical (six) Branch hours. naproxen 2020-04 Yes [id number] 500mg Take 1 [facility] (NAPROSYN) 1-08 tablet by [facility] of 500 mg 00:00: mouth 2 [place] tablet 00 (two) Medical times Branch daily with meals. methocarbam 2020-04 Yes [id number] 500mg Take 1 [facility] oL 500 mg 1-08 tablet by [facility] o f tablet 00:00: mouth 4 [place] 00 (four) Medical times Branch daily as needed for Pain (scale 4-6). ondansetron 2020-04 Yes [id number] 4mg Take 1 [facility] (ZOFRAN 1-08 tablet by ity of ODT) 4 mg 00:00: mouth [place] disintegrat 00 every 8 Medic al ing tablet (eight) Branch hours as needed for Nausea and Vomiting (N/V). meclizine 2020-04 Yes [id number] 25mg Take 1 [facility] 25 mg 1-08 tablet by [facility] of tablet 00:00: mouth [place] 00 every 6 Medical (six) Branch hours. naproxen 2020-04 Yes [id number] 500mg Take 1 [facility] (NAPROSYN) 1-08 tablet by [facility] of 500 mg 00:00: mouth 2 [place] tablet 00 (two) Medical times Branch daily with meals. methocarbam 2020-04 Yes [id number] 500mg Take 1 [facility] oL 500 mg 1-08 tablet by [facility] o f tablet 00:00: mouth 4 [place] 00 (four) Medical times Branch daily as needed for Pain (scale 4-6). ondansetron 2020-04 Yes [id number] 4mg Take 1 [facility] (ZOFRAN 1-08 tablet by ity of ODT) 4 mg 00:00: mouth [place] disintegrat 00 every 8 Medic al ing tablet (eight) Branch hours as needed for Nausea and Vomiting (N/V). meclizine 2020-04 Yes [id number] 25mg Take 1 [facility] 25 mg 1-08 tablet by [facility] of tablet 00:00: mouth [place] 00 every 6 Medical (six) Branch hours. naproxen 2020-04 Yes [id number] 500mg Take 1 [facility] (NAPROSYN) 1-08 tablet by [facility] of 500 mg 00:00: mouth 2 [place] tablet 00 (two) Medical times Branch daily with meals. methocarbam 2020-04 Yes [id number] 500mg Take 1 [facility] oL 500 mg 1-08 tablet by [facility] o f tablet 00:00: mouth 4 [place] 00 (four) Medical times Branch daily as needed for Pain (scale 4-6). ondansetron 2020-04 Yes [id number] 4mg Take 1 [facility] (ZOFRAN 1-08 tablet by ity of ODT) 4 mg 00:00: mouth [place] disintegrat 00 every 8 Medic al ing tablet (eight) Branch hours as needed for Nausea and Vomiting (N/V). meclizine 2020-04 Yes [id number] 25mg Take 1 [facility] 25 mg 1-08 tablet by [facility] of tablet 00:00: mouth [place] 00 every 6 Medical (six) Branch hours. naproxen 2020-04 Yes [id number] 500mg Take 1 [facility] (NAPROSYN) 1-08 tablet by [facility] of 500 mg 00:00: mouth 2 [place] tablet 00 (two) Medical times Branch daily with meals. methocarbam 2020-04 Yes [id number] 500mg Take 1 [facility] oL 500 mg 1-08 tablet by [facility] o f tablet 00:00: mouth 4 [place] 00 (four) Medical times Branch daily as needed for Pain (scale 4-6). ondansetron 2020-04 Yes [id number] 4mg Take 1 [facility] (ZOFRAN 1-08 tablet by ity of ODT) 4 mg 00:00: mouth [place] disintegrat 00 every 8 Medic al ing tablet (eight) Branch hours as needed for Nausea and Vomiting (N/V). meclizine 2020-04 Yes [id number] 25mg Take 1 [facility]e 25 mg 1-08 tablet by [facility] of tablet 00:00: mouth [place] 00 every 6 Medical (six) Branch hours. naproxen 2020-04 Yes [id number] 500mg Take 1 [facility] (NAPROSYN) 1-08 tablet by [facility] of 500 mg 00:00: mouth 2 [place] tablet 00 (two) Medical times Branch daily with meals. methocarbam 2020-04 Yes [id number] 500mg Take 1 [facility] oL 500 mg 1-08 tablet by [facility] o f tablet 00:00: mouth 4 [place] 00 (four) Medical times Branch daily as needed for Pain (scale 4-6). ondansetron 2020-04 Yes [id number] 4mg Take 1 [facility] (ZOFRAN 1-08 tablet by ity of ODT) 4 mg 00:00: mouth [place] disintegrat 00 every 8 Medic al ing tablet (eight) Branch hours as needed for Nausea and Vomiting (N/V). meclizine 2020-04 Yes [id number] 25mg Take 1 [facility] 25 mg 1-08 tablet by [facility] of tablet 00:00: mouth [place] 00 every 6 Medical (six) Branch hours. naproxen 2020-04 Yes [id number] 500mg Take 1 [facility] (NAPROSYN) 1-08 tablet by [facility]y of 500 mg 00:00: mouth 2 [place] tablet 00 (two) Medical times Branch daily with meals. methocarbam 2020-04 Yes [id number] 500mg Take 1 [facility] oL 500 mg 1-08 tablet by [facility]y o f tablet 00:00: mouth 4 [place] 00 (four) Medical times Branch daily as needed for Pain (scale 4-6). ondansetron 2020-04 Yes [id number] 4mg Take 1 [facility] (ZOFRAN 1-08 tablet by ity of ODT) 4 mg 00:00: mouth [place] disintegrat 00 every 8 Medic al ing tablet (eight) Branch hours as needed for Nausea and Vomiting (N/V). meclizine 2020-04 Yes [id number] 25mg Take 1 [facility] 25 mg 1-08 tablet by [facility] of tablet 00:00: mouth [place] 00 every 6 Medical (six) Branch hours. naproxen 2020-04 Yes [id number] 500mg Take 1 [facility] (NAPROSYN) 1-08 tablet by ity of 500 mg 00:00: mouth 2 [place] tablet 00 (two) Medical times Branch daily with meals. methocarbam 2020-04 Yes [id number] 500mg Take 1 [facility] oL 500 mg 1-08 tablet by ity o f tablet 00:00: mouth 4 [place] 00 (four) Medical times Branch daily as needed for Pain (scale 4-6). ondansetron 2020-04 Yes [id number] 4mg Take 1 [facility] (ZOFRAN 1-08 tablet by ity of ODT) 4 mg 00:00: mouth [place] disintegrat 00 every 8 Medic al ing tablet (eight) Branch hours as needed for Nausea and Vomiting (N/V). meclizine 2020-04 Yes [id number] 25mg Take 1 [facility] 25 mg 1-08 tablet by [facility] of tablet 00:00: mouth [place] 00 every 6 Medical (six) Branch hours. naproxen 2020-04 Yes [id number] 500mg Take 1 [facility] (NAPROSYN) 1-08 tablet by ity of 500 mg 00:00: mouth 2 [place] tablet 00 (two) Medical times Branch daily with meals. methocarbam 2020-04 Yes [id number] 500mg Take 1 [facility] oL 500 mg 1-08 tablet by ity o f tablet 00:00: mouth 4 [place] 00 (four) Medical times Branch daily as needed for Pain (scale 4-6). ondansetron 2020-04 Yes [id number] 4mg Take 1 [facility] (ZOFRAN 1-08 tablet by ity of ODT) 4 mg 00:00: mouth [place] disintegrat 00 every 8 Medic al ing tablet (eight) Branch hours as needed for Nausea and Vomiting (N/V). meclizine 2020-04 Yes [id number] 25mg Take 1 [facility] 25 mg 1-08 tablet by [facility] of tablet 00:00: mouth [place] 00 every 6 Medical (six) Branch hours. naproxen 2020-04 Yes [id number] 500mg Take 1 [facility] (NAPROSYN) 1-08 tablet by [facility] of 500 mg 00:00: mouth 2 [place] tablet 00 (two) Medical times Branch daily with meals. methocarbam 2020-04 Yes [id number] 500mg Take 1 [facility] oL 500 mg 1-08 tablet by [facility]y o f tablet 00:00: mouth 4 [place] 00 (four) Medical times Branch daily as needed for Pain (scale 4-6). ondansetron 2020-04 Yes [id number] 4mg Take 1 [facility] (ZOFRAN 1-08 tablet by ity of ODT) 4 mg 00:00: mouth [place] disintegrat 00 every 8 Medic al ing tablet (eight) Branch hours as needed for Nausea and Vomiting (N/V). meclizine 2020-04 Yes [id number] 25mg Take 1 [facility] avle 25 mg 1-08 tablet by [facility] of tablet 00:00: mouth [place] 00 every 6 Medical (six) Branch hours. naproxen 2020-04 Yes [id number] 500mg Take 1 [facility] (NAPROSYN) 1-08 tablet by [facility]y of 500 mg 00:00: mouth 2 [place] tablet 00 (two) Medical times Branch daily with meals. methocarbam 2020-04 Yes [id number] 500mg Take 1 [facility] oL 500 mg 1-08 tablet by [facility]y o f tablet 00:00: mouth 4 [place] 00 (four) Medical times Branch daily as needed for Pain (scale 4-6). ondansetron 2020-04 Yes [id number] 4mg Take 1 [facility] (ZOFRAN 1-08 tablet by ity of ODT) 4 mg 00:00: mouth [place] disintegrat 00 every 8 Medic al ing tablet (eight) Branch hours as needed for Nausea and Vomiting (N/V). meclizine 2020-04 Yes [id number] 25mg Take 1 [facility] 25 mg 1-08 tablet by [facility] of tablet 00:00: mouth [place] 00 every 6 Medical (six) Branch hours. naproxen 2020-04 Yes [id number] 500mg Take 1 [facility] (NAPROSYN) 1-08 tablet by ity of 500 mg 00:00: mouth 2 [place] tablet 00 (two) Medical times Branch daily with meals. methocarbam 2020-04 Yes [id number] 500mg Take 1 [facility] oL 500 mg 1-08 tablet by [facility] o f tablet 00:00: mouth 4 [place] 00 (four) Medical times Branch daily as needed for Pain (scale 4-6). ondansetron 2020-04 Yes [id number] 4mg Take 1 [facility] (ZOFRAN 1-08 tablet by ity of ODT) 4 mg 00:00: mouth [place] disintegrat 00 every 8 Medic al ing tablet (eight) Branch hours as needed for Nausea and Vomiting (N/V). meclizine 2020-04 Yes [id number] 25mg Take 1 [facility] 25 mg 1-08 tablet by [facility] of tablet 00:00: mouth [place] 00 every 6 Medical (six) Branch hours. naproxen 2020-04 Yes [id number] 500mg Take 1 [facility] (NAPROSYN) 1-08 tablet by [facility]y of 500 mg 00:00: mouth 2 [place] tablet 00 (two) Medical times Branch daily with meals. methocarbam 2020-04 Yes [id number] 500mg Take 1 [facility] oL 500 mg 1-08 tablet by ity o f tablet 00:00: mouth 4 [place] 00 (four) Medical times Branch daily as needed for Pain (scale 4-6). ondansetron 2020-04 Yes [id number] 4mg Take 1 [facility] (ZOFRAN 1-08 tablet by ity of ODT) 4 mg 00:00: mouth [place] disintegrat 00 every 8 Medic al ing tablet (eight) Branch hours as needed for Nausea and Vomiting (N/V). meclizine 2020-04 Yes [id number] 25mg Take 1 [facility] 25 mg 1-08 tablet by [facility]y of tablet 00:00: mouth [place] 00 every 6 Medical (six) Branch hours. naproxen 2020-04 Yes [id number] 500mg Take 1 [facility] (NAPROSYN) 1-08 tablet by ity of 500 mg 00:00: mouth 2 [place] tablet 00 (two) Medical times Branch daily with meals. methocarbam 2020-04 Yes [id number] 500mg Take 1 [facility] oL 500 mg 1-08 tablet by ity o f tablet 00:00: mouth 4 [place] 00 (four) Medical times Branch daily as needed for Pain (scale 4-6). ondansetron 2020-04 Yes [id number] 4mg Take 1 [facility] (ZOFRAN 1-08 tablet by ity of ODT) 4 mg 00:00: mouth [place] disintegrat 00 every 8 Medic al ing tablet (eight) Branch hours as needed for Nausea and Vomiting (N/V). meclizine 2020-04 Yes [id number] 25mg Take 1 [facility] 25 mg 1-08 tablet by [facility]y of tablet 00:00: mouth [place] 00 every 6 Medical (six) Branch hours. naproxen 2020-04 Yes [id number] 500mg Take 1 [facility] (NAPROSYN) 1-08 tablet by ity of 500 mg 00:00: mouth 2 [place] tablet 00 (two) Medical times Branch daily with meals. methocarbam 2020-04 Yes [id number] 500mg Take 1 [facility] oL 500 mg 1-08 tablet by ity o f tablet 00:00: mouth 4 [place] 00 (four) Medical times Branch daily as needed for Pain (scale 4-6). ondansetron 2020-04 Yes [id number] 4mg Take 1 [facility] (ZOFRAN 1-08 tablet by ity of ODT) 4 mg 00:00: mouth [place] disintegrat 00 every 8 Medic al ing tablet (eight) Branch hours as needed for Nausea and Vomiting (N/V). meclizine 2020-04 Yes [id number] 25mg Take 1 [facility] vale 25 mg 1-08 tablet by ity of tablet 00:00: mouth [place] 00 every 6 Medical (six) Branch hours. naproxen 2020-04 Yes [id number] 500mg Take 1 [facility] vale (NAPROSYN) 1-08 tablet by ity of 500 mg 00:00: mouth 2 [place] tablet 00 (two) Medical times Branch daily with meals. methocarbam 2020-04 Yes [id number] 500mg Take 1 [facility] oL 500 mg 1-08 tablet by ity o f tablet 00:00: mouth 4 [place] 00 (four) Medical times Branch daily as needed for Pain (scale 4-6). ondansetron 2020-04 Yes [id number] 4mg Take 1 [facility] (ZOFRAN 1-08 tablet by ity of ODT) 4 mg 00:00: mouth [place] disintegrat 00 every 8 Medic al ing tablet (eight) Branch hours as needed for Nausea and Vomiting (N/V). meclizine 2020-04 Yes [id number] 25mg Take 1 [facility] vale 25 mg 1-08 tablet by [facility]y of tablet 00:00: mouth [place] 00 every 6 Medical (six) Branch hours. naproxen 2020-04 Yes [id number] 500mg Take 1 [facility] (NAPROSYN) 1-08 tablet by ity of 500 mg 00:00: mouth 2 [place] tablet 00 (two) Medical times Branch daily with meals. methocarbam 2020-04 Yes [id number] 500mg Take 1 [facility] oL 500 mg 1-08 tablet by ity o f tablet 00:00: mouth 4 [place] 00 (four) Medical times Branch daily as needed for Pain (scale 4-6). ondansetron 2020-04 Yes [id number] 4mg Take 1 [facility] (ZOFRAN 1-08 tablet by ity of ODT) 4 mg 00:00: mouth [place] disintegrat 00 every 8 Medic al ing tablet (eight) Branch hours as needed for Nausea and Vomiting (N/V). meclizine 2020-04 Yes [id number] 25mg Take 1 [facility] vale 25 mg 1-08 tablet by [facility] of tablet 00:00: mouth [place] 00 every 6 Medical (six) Branch hours. naproxen 2020-04 Yes [id number] 500mg Take 1 [facility] (NAPROSYN) 1-08 tablet by ity of 500 mg 00:00: mouth 2 [place] tablet 00 (two) Medical times Branch daily with meals. methocarbam 2020-04 Yes [id number] 500mg Take 1 [facility] oL 500 mg 1-08 tablet by ity o f tablet 00:00: mouth 4 [place] 00 (four) Medical times Branch daily as needed for Pain (scale 4-6). ondansetron 2020-04 Yes [id number] 4mg Take 1 [facility] (ZOFRAN 1-08 tablet by ity of ODT) 4 mg 00:00: mouth [place] disintegrat 00 every 8 Medic al ing tablet (eight) Branch hours as needed for Nausea and Vomiting (N/V). meclizine 2020-04 Yes [id number] 25mg Take 1 [facility] vale 25 mg 1-08 tablet by ity of tablet 00:00: mouth [place] 00 every 6 Medical (six) Branch hours. naproxen 2020-04 Yes [id number] 500mg Take 1 [facility]e (NAPROSYN) 1-08 tablet by ity of 500 mg 00:00: mouth 2 [place] tablet 00 (two) Medical times Branch daily with meals. methocarbam 2020-04 Yes [id number] 500mg Take 1 [facility] oL 500 mg 1-08 tablet by ity o f tablet 00:00: mouth 4 [place] 00 (four) Medical times Branch daily as needed for Pain (scale 4-6). ondansetron 2020-04 Yes [id number] 4mg Take 1 [facility] (ZOFRAN 1-08 tablet by ity of ODT) 4 mg 00:00: mouth [place] disintegrat 00 every 8 Medic al ing tablet (eight) Branch hours as needed for Nausea and Vomiting (N/V). meclizine 2020-04 Yes [id number] 25mg Take 1 [facility]e 25 mg 1-08 tablet by ity of tablet 00:00: mouth [place] 00 every 6 Medical (six) Branch hours. naproxen 2020-04 Yes [id number] 500mg Take 1 [facility] (NAPROSYN) 1-08 tablet by ity of 500 mg 00:00: mouth 2 [place] tablet 00 (two) Medical times Branch daily with meals. methocarbam 2020-04 Yes [id number] 500mg Take 1 [facility] oL 500 mg 1-08 tablet by ity o f tablet 00:00: mouth 4 [place] 00 (four) Medical times Branch daily as needed for Pain (scale 4-6). ondansetron 2020-04 Yes [id number] 4mg Take 1 [facility] (ZOFRAN 1-08 tablet by ity of ODT) 4 mg 00:00: mouth [place] disintegrat 00 every 8 Medic al ing tablet (eight) Branch hours as needed for Nausea and Vomiting (N/V). meclizine 2020-04 Yes [id number] 25mg Take 1 [facility] 25 mg 1-08 tablet by ity of tablet 00:00: mouth [place] 00 every 6 Medical (six) Branch hours. naproxen 2020-04 Yes [id number] 500mg Take 1 [facility] (NAPROSYN) 1-08 tablet by ity of 500 mg 00:00: mouth 2 [place] tablet 00 (two) Medical times Branch daily with meals. methocarbam 2020-04 Yes [id number] 500mg Take 1 [facility] oL 500 mg 1-08 tablet by ity o f tablet 00:00: mouth 4 [place] 00 (four) Medical times Branch daily as needed for Pain (scale 4-6). ondansetron 2020-04 Yes [id number] 4mg Take 1 [facility] (ZOFRAN 1-08 tablet by ity of ODT) 4 mg 00:00: mouth [place] disintegrat 00 every 8 Medic al ing tablet (eight) Branch hours as needed for Nausea and Vomiting (N/V). meclizine 2020-04 Yes [id number] 25mg Take 1 [facility] 25 mg 1-08 tablet by ity of tablet 00:00: mouth [place] 00 every 6 Medical (six) Branch hours. naproxen 2020-04 Yes [id number] 500mg Take 1 [facility] (NAPROSYN) 1-08 tablet by ity of 500 mg 00:00: mouth 2 [place] tablet 00 (two) Medical times Branch daily with meals. methocarbam 2020-04 Yes [id number] 500mg Take 1 [facility] oL 500 mg 1-08 tablet by ity o f tablet 00:00: mouth 4 [place] 00 (four) Medical times Branch daily as needed for Pain (scale 4-6). ondansetron 2020-04 Yes [id number] 4mg Take 1 [facility] (ZOFRAN 1-08 tablet by ity of ODT) 4 mg 00:00: mouth [place] disintegrat 00 every 8 Medic al ing tablet (eight) Branch hours as needed for Nausea and Vomiting (N/V). meclizine 2020-04 Yes [id number] 25mg Take 1 [facility] 25 mg 1-08 tablet by [facility]y of tablet 00:00: mouth [place] 00 every 6 Medical (six) Branch hours. naproxen 2020-04 Yes [id number] 500mg Take 1 [facility] (NAPROSYN) 1-08 tablet by ity of 500 mg 00:00: mouth 2 [place] tablet 00 (two) Medical times Branch daily with meals. methocarbam 2020-04 Yes [id number] 500mg Take 1 [facility] oL 500 mg 1-08 tablet by ity o f tablet 00:00: mouth 4 [place] 00 (four) Medical times Branch daily as needed for Pain (scale 4-6). HYDROCHLORO 2020-04 Yes 10mg Take 10 mg [facility] THIAZIDE 0-26 by mouth ity of ORAL 08:48: daily. [address] pregabalin 2020-04 Yes Take by [facility] ers (LYRICA 0-26 mouth ity of ORAL) 08:48: daily. [address] montelukast 2020-04 Yes 10mg Take 10 mg [facility] 10 mg 0-26 by mouth ity of tablet 08:48: daily. [address] HYDROCHLORO 2020-04 Yes 10mg Take 10 mg [facility] THIAZIDE 0-26 by mouth ity of ORAL 08:48: daily. [address] pregabalin 2020-04 Yes Take by [facility] ers (LYRICA 0-26 mouth ity of ORAL) 08:48: daily. [address] montelukast 2020-04 Yes 10mg Take 10 mg [facility] 10 mg 0-26 by mouth ity of tablet 08:48: daily. [address] HYDROCHLORO 2020-04 Yes 10mg Take 10 mg [facility] THIAZIDE 0-26 by mouth ity of ORAL 08:48: daily. [address] pregabalin 2020-04 Yes Take by [facility] ers (LYRICA 0-26 mouth ity of ORAL) 08:48: daily. [address] montelukast 2020-04 Yes 10mg Take 10 mg [facility] 10 mg 0-26 by mouth ity of tablet 08:48: daily. [address] HYDROCHLORO 2020-04 Yes 10mg Take 10 mg [facility] THIAZIDE 0-26 by mouth ity of ORAL 08:48: daily. [address] pregabalin 2020-04 Yes Take by [facility] ers (LYRICA 0-26 mouth ity of ORAL) 08:48: daily. [address] montelukast 2020-04 Yes 10mg Take 10 mg [facility] 10 mg 0-26 by mouth ity of tablet 08:48: daily. [address] HYDROCHLORO 2020-04 Yes 10mg Take 10 mg [facility] THIAZIDE 0-26 by mouth ity of ORAL 08:48: daily. [address] pregabalin 2020-04 Yes Take by [facility] ers (LYRICA 0-26 mouth ity of ORAL) 08:48: daily. [address] montelukast 2020-04 Yes 10mg Take 10 mg [facility] 10 mg 0-26 by mouth ity of tablet 08:48: daily. [address] HYDROCHLORO 2020-04 Yes 10mg Take 10 mg [facility] THIAZIDE 0-26 by mouth ity of ORAL 08:48: daily. [address] pregabalin 2020-04 Yes Take by [facility] ers (LYRICA 0-26 mouth ity of ORAL) 08:48: daily. [address] montelukast 2020-04 Yes 10mg Take 10 mg [facility] 10 mg 0-26 by mouth ity of tablet 08:48: daily. [address] HYDROCHLORO 2020-04 Yes 10mg Take 10 mg [facility] THIAZIDE 0-26 by mouth ity of ORAL 08:48: daily. [address] pregabalin 2020-04 Yes Take by [facility] ers (LYRICA 0-26 mouth ity of ORAL) 08:48: daily. [address] montelukast 2020-04 Yes 10mg Take 10 mg [facility] 10 mg 0-26 by mouth ity of tablet 08:48: daily. [address] HYDROCHLORO 2020-04 Yes 10mg Take 10 mg [facility] THIAZIDE 0-26 by mouth ity of ORAL 08:48: daily. [address] pregabalin 2020-04 Yes Take by [facility] ers (LYRICA 0-26 mouth ity of ORAL) 08:48: daily. [address] montelukast 2020-04 Yes 10mg Take 10 mg [facility] 10 mg 0-26 by mouth ity of tablet 08:48: daily. [address] HYDROCHLORO 2020-04 Yes 10mg Take 10 mg [facility] THIAZIDE 0-26 by mouth ity of ORAL 08:48: daily. [address] pregabalin 2020-04 Yes Take by [facility] ers (LYRICA 0-26 mouth ity of ORAL) 08:48: daily. [address] montelukast 2020-04 Yes 10mg Take 10 mg [facility] 10 mg 0-26 by mouth ity of tablet 08:48: daily. [address] HYDROCHLORO 2020-04 Yes 10mg Take 10 mg [facility] THIAZIDE 0-26 by mouth ity of ORAL 08:48: daily. [address] pregabalin 2020-04 Yes Take by [facility] ers (LYRICA 0-26 mouth ity of ORAL) 08:48: daily. [address] montelukast 2020-04 Yes 10mg Take 10 mg [facility] 10 mg 0-26 by mouth ity of tablet 08:48: daily. [address] HYDROCHLORO 2020-04 Yes 10mg Take 10 mg [facility] THIAZIDE 0-26 by mouth ity of ORAL 08:48: daily. [address] pregabalin 2020-04 Yes Take by [facility] ers (LYRICA 0-26 mouth ity of ORAL) 08:48: daily. [address] montelukast 2020-04 Yes 10mg Take 10 mg [facility] 10 mg 0-26 by mouth ity of tablet 08:48: daily. [address] HYDROCHLORO 2020-04 Yes 10mg Take 10 mg [facility] THIAZIDE 0-26 by mouth ity of ORAL 08:48: daily. [address] pregabalin 2020-04 Yes Take by [facility] ers (LYRICA 0-26 mouth ity of ORAL) 08:48: daily. [address] montelukast 2020-04 Yes 10mg Take 10 mg [facility] 10 mg 0-26 by mouth ity of tablet 08:48: daily. [address] HYDROCHLORO 2020-04 Yes 10mg Take 10 mg [facility] THIAZIDE 0-26 by mouth ity of ORAL 08:48: daily. [address] pregabalin 2020-04 Yes Take by [facility] ers (LYRICA 0-26 mouth ity of ORAL) 08:48: daily. [address] montelukast 2020-04 Yes 10mg Take 10 mg [facility] 10 mg 0-26 by mouth ity of tablet 08:48: daily. [address] HYDROCHLORO 2020-04 Yes 10mg Take 10 mg [facility] THIAZIDE 0-26 by mouth ity of ORAL 08:48: daily. [address] pregabalin 2020-04 Yes Take by [facility] ers (LYRICA 0-26 mouth ity of ORAL) 08:48: daily. [address] montelukast 2020-04 Yes 10mg Take 10 mg [facility] 10 mg 0-26 by mouth ity of tablet 08:48: daily. [address] HYDROCHLORO 2020-04 Yes 10mg Take 10 mg [facility] THIAZIDE 0-26 by mouth ity of ORAL 08:48: daily. [address] pregabalin 2020-04 Yes Take by [facility] ers (LYRICA 0-26 mouth ity of ORAL) 08:48: daily. [address] montelukast 2020-04 Yes 10mg Take 10 mg [facility] 10 mg 0-26 by mouth ity of tablet 08:48: daily. [address] HYDROCHLORO 2020-04 Yes 10mg Take 10 mg [facility] THIAZIDE 0-26 by mouth ity of ORAL 08:48: daily. [address] pregabalin 2020-04 Yes Take by [facility] ers (LYRICA 0-26 mouth ity of ORAL) 08:48: daily. [address] montelukast 2020-04 Yes 10mg Take 10 mg [facility] 10 mg 0-26 by mouth ity of tablet 08:48: daily. [address] HYDROCHLORO 2020-04 Yes 10mg Take 10 mg [facility] THIAZIDE 0-26 by mouth ity of ORAL 08:48: daily. [address] pregabalin 2020-04 Yes Take by [facility] ers (LYRICA 0-26 mouth ity of ORAL) 08:48: daily. [address] montelukast 2020-04 Yes 10mg Take 10 mg [facility] 10 mg 0-26 by mouth ity of tablet 08:48: daily. [address] Lyrica 75 Lyrica 75 0 No [...] 10mg Q.5D Take 10 mg [facility] (INDERAL) 08-09 06-[address] 10 MG 00:00: [facility] :[facility] a [facility] day. propranoloL 2021- No 10mg Q.5D Take 10 mg [facility] (INDERAL) 08-09-[address] 10 MG 00:00: 00:00 (two) [facility] tablet 00 :00 times a l day. propranoloL 2021- No 10mg Q.5D Take 10 mg [facility] (INDERAL) 08-09 06-[address] 10 MG 00:00: 00:00 (two) [facility] tablet 00 :00 times a l day. methIMAzole 2019-04 Yes 10mg Take 1 [facility] ers 10 mg 2-29 tablet by ity of tablet 00:00: mouth. [place] [facility] methIMAzole 2019-04 Yes 10mg Take 1 [facility] ers 10 mg 2-29 tablet by ity of tablet 00:00: mouth. [place] 00 [facility] methIMAzole 2019-04 Yes 10mg Take 1 [facility] ers 10 mg 2-29 tablet by ity of tablet 00:00: mouth. [place] 00 [facility] methIMAzole 2019-04 Yes 10mg Take 1 [facility] ers 10 mg 2-29 tablet by ity of tablet 00:00: mouth. [place] 00 [facility] methIMAzole 2019-04- No 10mg Take 1 [facility] vers 10 mg 2-29 12-14 tablet by ity of tablet 00:00: 00:00 mouth. [place] 00 :00 Medical Branch methIMAzole 2019-04- No 10mg Take 1 Uni vers 10 mg 2-29 12-14 tablet by ity of tablet 00:00: 00:00 mouth. [place] 00 :00 [facility] Propranolol Propranolol 2019-0 Yes Sunil 1 tablet Common HCl HCl 9-10 [place] [facility] 00:00: - [facility] 00 [facility] Ondansetron Ondansetron 2019-0 Yes Sunil 1 tablet Common 8-18 [place] on the Spirit 00:00: tongue and - CHI 00 allow to [facility] 30 minutes Medical prior to Center meals [...] not exceed 200 mg in 24 hours. Zoloft 50 Zoloft 50 No 1{table QD [...] am 500 MG t} howe 500 MG methIMAzole methIMAzole No methIMAzol 10 MG 10 MG e 10 MG Zoloft 100 Zoloft 100 No 1{table QD Zoloft 100 MG MG t} MG Montelukast Montelukast No 1{table QD Montelukas Sodium 10 Sodium 10 t} t Sodium MG MG 10 MG Phentermine Phentermine No 1{capsu QD Phentermin HCl 30 MG HCl 30 MG le} e HCl 30 MG SUMAtriptan SUMAtriptan No QD SUMAtripta Succinate Succinate n 50 MG 50 MG Succinate 50 MG Sertraline Sertraline No Sertraline HCl 100 MG HCl 100 MG HCl 100 MG Propranolol Propranolol No Propranolo HCl 10 MG HCl 10 MG l HCl 10 MG Montelukast Montelukast No QD Montelukas Sodium 10 Sodium 10 t Sodium MG MG 10 MG hydroCHLORO hydroCHLORO No QD hydroCHLOR thiazide 25 thiazide 25 Othiazide MG MG 25 MG levETIRAcet levETIRAcet No 1{table BID levETIRAce am 500 MG am 500 MG t} howe 500 MG Ambien Ambien Yes Sunil 1 tablet Commo n [place] at bedtime Spirit as needed - [facility] Sumatriptan Sumatriptan Yes Sunil 1 tablet Common Succinate Succinate [place] as needed Spirit [facility] Methimazole Methimazole Yes Sunil 3 tablet Common [place] [facility] Montelukast Montelukast Yes Sunil 1 tablet Common Sodium Sodium [place] [facility] Lyrica Lyrica Yes Sunil 1 capsule Comm on [place] Hydrochloro Hydrochloro Yes Sunil 1 tablet Common thiazide thiazide [place] in the Spir it morning [facility] SUMAtriptan SUMAtriptan No SUMAtripta Succinate Succinate n [...] HCl 10 MG l HCl 10 MG Vital Signs Vital Name Observation Time Observation Value Comments Source Systolic blood 2022-07-22 13:31:00 130 mm[facility]Hg[facility] 2022-07-22 13:31:00 84 mm[Hg] Unive [facility] Heart rate 2022-07-22 13:31:00 104 /min [facility] Body temperature 2022-07-22 13:31:00 36.11 Tegan [facility] Respiratory rate 2022-07-22 13:31:00 18 /min [facility] Body height 2022-07-22 13:31:00 162.6 cm [facility] Body weight 2022-07-22 13:31:00 132.904 kg [facility] BMI 2022-07-22 13:31:00 50.29 kg/m2 [facility] Oxygen saturation in 2022-07-22 13:31:00 96 /min [facility] blood by [facility] Pulse oximetry Branch Systolic blood 2022-07-02 22:30:00 153 mm[Hg] Univer sity of pressure [place] [facility] Diastolic blood 2022-07-02 22:30:00 86 mm[Hg] Unive rsity of pressure [place] [facility] Respiratory rate 2022-07-02 22:30:00 22 /min Univ ersity of [place] [facility] Oxygen saturation in 2022-07-02 22:30:00 96 /min University of Arterial blood by [facility] Pulse oximetry Branch Body height 2022-07-02 16:34:00 [...] 95 /min University of Arterial blood by [facility] Pulse oximetry Branch Body height 2022-07-02 16:34:00 [...] 94 /min University of Arterial blood by [facility] Pulse oximetry Branch Systolic blood 2022-05-24 23:45:00 [...] 90 /min University of Arterial blood by [facility] Pulse oximetry Branch Body height 2022-05-24 10:06:00 162.6 cm [facility] [place] [facility] Body weight 2022-05-24 10:06:00 129.5 kg bed scale [facility] [place] [facility] BMI 2022-05-24 10:06:00 49.01 kg/m2 [facility] [place] [facility] Systolic blood 2022-05-20 14:07:00 140 mm[Hg] Univer sity of pressure [place] [facility] Diastolic blood 2022-05-20 14:07:00 85 mm[Hg] Unive rsity of pressure [place] [facility] Heart rate 2022-05-20 14:07:00 78 /min [facility] [place] [facility] Respiratory rate 2022-05-20 14:07:00 19 /min [facility] [place] [facility] Body weight 2022-05-20 14:07:00 139.254 kg [facility] [place] [facility] BMI 2022-05-20 14:07:00 52.70 kg/m2 [facility] [place] [facility] Oxygen saturation in 2022-05-20 14:07:00 93 /min University of Arterial blood by [facility] Pulse oximetry Branch Systolic blood 2022-05-18 14:46:00 113 mm[Hg] Univer sity of pressure [place] [facility] Diastolic blood 2022-05-18 14:46:00 76 mm[Hg] Unive rsity of pressure [facility] Heart rate 2022-05-18 14:46:00 77 /min [facility] [place] [facility] Respiratory rate 2022-05-18 14:46:00 14 /min Univ ersity of [facility] Body weight 2022-05-18 14:46:00 138.801 kg [facility] [place] [facility] BMI 2022-05-18 14:46:00 52.52 kg/m2 Universi ty of [facility] Oxygen saturation in 2022-05-18 14:46:00 92 /min room air University of Arterial blood by [facility] Pulse oximetry Branch Systolic blood 2022-03-17 21:36:00 115 mm[Hg] Univer sity of pressure [facility] Diastolic blood 2022-03-17 21:36:00 69 mm[Hg] Unive rsity of pressure [facility] Heart rate 2022-03-17 21:36:00 76 /min Universi ty of [facility] Body height 2022-03-17 21:36:00 162.6 cm [facility] [place] [facility] Body weight 2022-03-17 21:36:00 133.176 kg [facility] [place] [facility] BMI 2022-03-17 21:36:00 50.40 kg/m2 Universi ty of [facility] Oxygen saturation in 2022-03-17 21:36:00 95 /min University of Arterial blood by [facility] Pulse oximetry Branch height 2021-11-13 16:20:00 64 [in_i] [facility] weight 2021-11-13 16:20:00 305.3 [lb_av] Common [place] temperature 2021-11-13 16:20:00 97.3 [degF] Common [facility] bmi 2021-11-13 16:20:00 52.4 kg/m2 [facility] oximetry 2021-11-13 16:20:00 95 % [facility] respiratory rate 2021-11-13 16:20:00 18 /min Comm on [place] blood pressure 2021-11-13 16:20:00 129 mm[Hg] Common [facility] blood pressure 2021-11-13 16:20:00 67 mm[Hg] Common [facility] - diastolic [facility] height 2021-09-30 09:20:00 64 [in_i] Common [facility] weight 2021-09-30 09:20:00 314.3 [lb_av] Common [place] temperature 2021-09-30 09:20:00 97.2 [degF] Common S pirit [facility] bmi 2021-09-30 09:20:00 53.94 kg/m2 Common [facility] oximetry 2021-09-30 09:20:00 93 % Common [facility] respiratory rate 2021-09-30 09:20:00 16 /min Comm on [place] blood pressure 2021-09-30 09:20:00 132 mm[Hg] Common [facility] - systolic [facility] blood pressure 2021-09-30 09:20:00 67 mm[Hg] Common [facility] - diastolic [facility] height 2021-05-07 13:50:00 64 [in_i] Common [facility] weight 2021-05-07 13:50:00 287.7 [lb_av] [facility] temperature 2021-05-07 13:50:00 97.2 [degF] Common S pirit [facility] bmi 2021-05-07 13:50:00 49.38 kg/m2 Common S pirit [facility] oximetry 2021-05-07 13:50:00 94 % Common [facility] respiratory rate 2021-05-07 13:50:00 16 /min Comm on [place] blood pressure 2021-05-07 13:50:00 136 mm[Hg] Common [facility] - systolic [facility] blood pressure 2021-05-07 13:50:00 76 mm[Hg] Common [facility] - diastolic [facility] height 2021-04-06 16:00:00 64 [in_i] Common [facility] weight 2021-04-06 16:00:00 286.0 [lb_av] [facility] temperature 2021-04-06 16:00:00 97.6 [degF] Common [facility] bmi 2021-04-06 16:00:00 49.09 kg/m2 Common [facility] oximetry 2021-04-06 16:00:00 97 % Common [facility] respiratory rate 2021-04-06 16:00:00 17 /min Comm on [place] blood pressure 2021-04-06 16:00:00 127 mm[Hg] Common [facility] - systolic [facility] blood pressure 2021-04-06 16:00:00 62 mm[Hg] Common [facility] diastolic [facility] height 2020-12-10 10:20:00 64 [in_i] Common [facility] weight 2020-12-10 10:20:00 288.7 [lb_av] [facility] temperature 2020-12-10 10:20:00 97.5 [degF] Common [facility] bmi 2020-12-10 10:20:00 49.55 kg/m2 [facility] oximetry 2020-12-10 10:20:00 93 % [facility] respiratory rate 2020-12-10 10:20:00 17 /min Comm on [place] blood pressure 2020-12-10 10:20:00 124 mm[Hg] Common [facility] - systolic [facility] blood pressure 2020-12-10 10:20:00 68 mm[Hg] [facility] diastolic [facility] Systolic blood 2022-08-05 20:45:09 107 mm[Hg] [facility] Diastolic blood 2022-08-05 20:45:09 54 mm[Hg] [facility] pressure Heart rate 2022-08-05 20:45:09 63 /min [facility] Oxygen saturation in 2022-08-05 20:45:09 93 /min [facility] Arterial blood by Pulse oximetry Body temperature 2022-08-05 20:44:27 35.56 Tegan [facility] Respiratory rate 2022-08-05 20:44:27 16 /min [facility] Body weight 2022-08-05 04:15:00 129.956 kg [facility] BMI 2022-08-05 04:15:00 49.18 kg/m2 [facility] Body height 2022-08-04 17:14:00 162.6 cm [facility] Systolic blood 2021-09-09 22:24:07 133 mm[Hg] [facility] pressure Diastolic blood 2021-09-09 22:24:07 65 mm[Hg] [facility] pressure Heart rate 2021-09-09 22:24:07 62 /min [facility] Body temperature 2021-09-09 22:24:07 36.28 Tegan [facility] Respiratory rate 2021-09-09 22:24:07 18 /min [facility] Oxygen saturation in 2021-09-09 22:24:07 96 /min [facility] Arterial blood by Pulse oximetry Body weight 2021-09-02 08:51:24 136.896 kg [facility] BMI 2021-09-02 08:51:24 51.80 kg/m2 [facility] Body height 2021-08-27 02:47:26 162.6 cm [facility] Procedures Procedure Date / Time Performing Clinician Source Performed XR SKULL < 4 VW 2022-10-22 19:33:[address] [facility] MRI HEAD EXTERNAL STUDY 2022-10-22 15:09:00 [facility] ECG 12-LEAD 2022-08-05 18:37:07 Lilian Saeed TROPONIN T 2022-08-05 15:12:00 Lilian Saeed EEG AWAKE/DROWSY LESS THAN 2022-08-05 10:40:00 [facility] [place] CBC WITH PLATELET AND 2022-08-05 09:06:00 [facility] [place] BASIC METABOLIC PANEL 2022-08-05 09:06:00 [facility] [place] MAGNESIUM LEVEL 2022-08-05 09:06:00 Lilian Saeed coty [place] PHOSPHORUS LEVEL 2022-08-05 09:06:00 Lilian Saeed H ospital [place] ESTIMATED GFR 2022-08-05 09:06:00 Lilian Saeed XR ABDOMEN 1 VW PORTABLE 2022-08-05 03:52:27 Lilian Saeed [facility] [place] ECG 12-LEAD 2022-08-04 21:36:50 Lilian Saeed coty [address] CT HEAD WO CONTRAST 2022-08-04 20:49:53 Edyta [facility] LACTIC ACID LEVEL, SEPSIS - 2022-08-04 20:10:00 Edyta [facility] NOW AND REPEAT 2X EVERY 3 HOURS XR SHUNT SERIES CHEST ABD 2 2022-08-04 18:15:[facility] SERIES HEAD NECK 2 2022-08-04 18:15:06 [facility] VIEW CBC WITH PLATELET AND 2022-08-04 17:25:00 Edyta [facility] DIFFERENTIAL COMPREHENSIVE METABOLIC 2022-08-04 17:25:00 Edyta Yogesh [facility] PANEL LACTIC ACID LEVEL, SEPSIS - 2022-08-04 17:25:00 [facility] NOW AND REPEAT 2X EVERY 3 HOURS ESTIMATED GFR 2022-08-04 17:25:00 [facility] ECG ED PRELIMINARY 2022-08-04 17:07:38 [facility] INTERPRETATION ELECTROPHYSIOLOGY PROCEDURE 2022-07-02 19:12:46 Gulshan Cox [facility] HB ECG ROUTINE & RHYTHM 2022-07-02 16:28:34 Gulshan Cox [facility] BASIC METABOLIC PANEL (NA, 2022-07-02 16:23:00 Gulshan Cox [facility] K, CL, CO2, GLUCOSE, BUN, Medica l Branch CREATININE, CA) CBC WITH DIFF 2022-07-02 16:23:00 Bro[facility] PROTHROMBIN TIME / INR 2022-07-02 16:23:00 Hildaerika [facility] BASIC METABOLIC PANEL (NA, 2022-07-02 16:23:00 Brooke, Gulshan U [facility] K, CL, CO2, GLUCOSE, BUN, Medica l Branch CREATININE, CA) CBC WITH DIFF 2022-07-02 16:23:00 Hildaerika [facility] PROTHROMBIN TIME / INR 2022-07-02 16:23:00 Hildaerika [facility] EP PROCEDURE 2022-07-02 05:01:00 Doctor Margarito, [facility] Name Medical [facility] PATIENT FINANCIAL 2022-06-09 14:27:57 Doctor Margarito, [facility] POLICY [facility] TROPONIN I 2022-05-24 22:10:[address] [facility] TRANSTHORACIC ECHO (TTE) 2022-05-24 17:43:19 Ju Frey [facility] COMPLETE W/ CONTRAST [facility] TROPONIN I 2022-05-24 13:58:[address] [facility] XR CHEST 1 VW 2022-05-24 06:01:00 Nahun Ortez [facility] NOTICE OF PRIVACY PRACTICES 2022-05-24 05:47:06 Doctor Bassam bacon [facility] Name [facility] CONSENT/REFUSAL FOR 2022-05-24 05:46:30 Doctor Pimentel [facility] DIAGNOSIS AND TREATMENT [facility] LIPASE 2022-05-24 05:42:00 Nahun Ortez [facility] TROPONIN I 2022-05-24 05:42:00 Nahun Ortez [facility] COMP. METABOLIC PANEL 2022-05-24 05:42:00 Nahun Ortez [facility] ([id number]) [facility] LIPID PANEL ([id number])(TOTAL 2022-05-24 05:42:00 Beverlyo Angelesghazala, Un [facility] CHOLESTEROL, TRIGLYCERIDES, Mahmoud [facility] Branch HDL) CBC WITH DIFF 2022-05-24 05:42:00 Nahun Ortez Herron o f [facility] PROTHROMBIN TIME / INR 2022-05-24 05:42:00 Nahun Ortez [facility] ACTIVATED PARTIAL THRMPLAS 2022-05-24 05:42:00 Nahun Oretz [facility] N-TERMINAL PRO-BNP 2022-05-24 05:42:00 Nahun Ortez [facility] HB ECG ROUTINE & RHYTHM 2022-05-24 05:38:29 Nahun Ortez [facility] ASSIGNMENT OF BENEFITS 2022-05-20 15:01:15 Doctor Unassigned, [facility]os [facility] HB ECG ROUTINE & RHYTHM 2022-03-17 21:43:30 Imani Martino [facility] CONSENT/REFUSAL FOR 2022-03-17 21:23:03 Doctor Unassigned, [facility] DIAGNOSIS AND TREATMENT [facility] MRI HEAD EXTERNAL STUDY 2021-10-19 15:25:00 Alonso Herrera [facility] POC GLUCOSE 2021-09-09 22:23:00 Acacia Lewis Ho spital POC GLUCOSE 2021-09-09 17:43:00 Acacia Lewis Ho spital POC GLUCOSE 2021-09-09 12:46:00 Acacia Lewis Ho spital POC GLUCOSE 2021-09-09 02:10:00 Acacia Lewis Ho spital POC GLUCOSE 2021-09-08 22:50:00 Acacia Lewis Ho spital POC GLUCOSE 2021-09-08 18:35:00 Acacia Lewis Ho spital POC GLUCOSE 2021-09-08 13:10:00 Acacia Lewis Ho spital POC GLUCOSE 2021-09-08 02:28:00 Joglekar, Acacia [facility]ital POC GLUCOSE 2021-09-07 23:10:00 Joglekar, [facility] POC GLUCOSE 2021-09-07 17:46:00 Joglekar, [facility] POC GLUCOSE 2021-09-07 13:20:00 Joglekar, Acacia [facility] POC GLUCOSE 2021-09-07 02:07:00 Joglekar, Acacia [facility] POC GLUCOSE 2021-09-06 23:51:00 Joglekar, Acacia [facility]ital POC GLUCOSE 2021-09-06 17:26:00 Joglekar, Acacia [facility] POC GLUCOSE 2021-09-06 13:13:00 Joglekar, Acacia [facility]ital POC GLUCOSE 2021-09-06 02:43:00 Joglekar, Ac[facility] POC GLUCOSE 2021-09-05 23:55:00 Joglekar, [facility] POC GLUCOSE 2021-09-05 17:41:00 Joglekar, Acacia [facility]ital POC GLUCOSE 2021-09-05 13:45:00 Joglekar, Acacia [facility]ital ECG 12-LEAD 2021-09-05 05:50:02 Joglekar, Acacia [facility] POC GLUCOSE 2021-09-05 03:25:00 Joglekar, Ac[facility] POC GLUCOSE 2021-09-05 01:53:00 Joglekar, [facility] POC GLUCOSE 2021-09-04 23:28:00 Joglekar, [facility] POC GLUCOSE 2021-09-04 17:44:00 Joglekar, Acacia Daigle spital SIX MINUTE WALK W/ PULSE 2021-09-04 16:54:41 JoglAcacia carrasco [facility] OXIMETRY POC GLUCOSE 2021-09-04 13:27:00 JoglekAcacia leblanc Ho spital POC GLUCOSE 2021-09-04 02:14:00 JoglekAcacia leblanc spital POC GLUCOSE 2021-09-03 23:15:00 Joglekar, Acacia [facility] spital POC GLUCOSE 2021-09-03 17:35:00 Joglekar, Acacia [facility] spital POC GLUCOSE 2021-09-03 13:29:00 Joglekar, Acacia [facility] spital POC GLUCOSE 2021-09-03 03:43:00 Joglekar, Acacia [facility] spital POC GLUCOSE 2021-09-02 22:37:00 Joglekar, Acacia [facility] spital POC GLUCOSE 2021-09-02 17:32:00 Joglekar, Acacia [facility] spital POC GLUCOSE 2021-09-02 13:55:00 Joglekar, Acacia [facility] POC GLUCOSE 2021-09-02 02:06:00 Joglekar, Acacia [facility] POC GLUCOSE 2021-09-01 22:59:00 Joglekar, Acacia [facility] spital XR ABDOMEN 1 VW PORTABLE 2021-09-01 21:44:00 [facility] CBC WITH PLATELET AND 2021-09-01 17:49:00 [facility] DIFFERENTIAL COMPREHENSIVE METABOLIC 2021-09-01 17:49:00 [facility] PANEL ESTIMATED GFR 2021-09-01 17:49:00 [facility] spital POC GLUCOSE 2021-09-01 17:31:00 JoglekarShaneAcacia Religious Ho spital POC GLUCOSE 2021-09-01 13:36:00 JoglekShane leblancati Religious Ho spital POC GLUCOSE 2021-09-01 01:58:00 Joglekar, Acacia [facility] spital POC GLUCOSE 2021-08-31 23:12:00 Joglekar, Acacia [facility] POC GLUCOSE 2021-08-31 17:21:00 Joglekar, Acacia [facility] spital POC GLUCOSE 2021-08-31 13:08:00 Joglekar, Acacia [facility] spital POC GLUCOSE 2021-08-31 01:41:00 Joglekar, Acacia [facility] spital POC GLUCOSE 2021-08-30 23:36:00 Joglekar, Acaica [facility] Ho spital POC GLUCOSE 2021-08-30 17:36:00 Joglekar, Acacia [facility] spital POC GLUCOSE 2021-08-30 13:15:00 Joglekar, Acacia [facility] POC GLUCOSE 2021-08-30 02:00:00 Joglekar, Acacia [facility] spital POC GLUCOSE 2021-08-29 23:05:00 Joglekbenji, Acacia [facility]ital POC GLUCOSE 2021-08-29 17:57:00 Joglekar, Acacia [facility] POC GLUCOSE 2021-08-29 13:41:00 Joglekar, Acacia [facility]ital POC GLUCOSE 2021-08-29 01:29:00 Joglekar, Acacia [facility]ital POC GLUCOSE 2021-08-28 22:55:00 Joglekar, Acacia [facility]ital POC GLUCOSE 2021-08-28 17:23:00 Joglekbenji, Acacia [facility] POC GLUCOSE 2021-08-28 13:45:00 Joglekar, Acacia [facility] POC GLUCOSE 2021-08-28 01:28:00 Joglekbenji, Acacia Daigle Ho spital COVID-19 QUALITATIVE RT-PCR 2021-08-27 22:41:00 [facility] POC GLUCOSE 2021-08-27 22:33:00 JoglekarAcacia Religious Ho spital POC GLUCOSE 2021-08-27 17:33:00 JoglekarAcacia [facility] spital POC GLUCOSE 2021-08-27 12:35:00 Joglekar, Acacia [facility] POC GLUCOSE 2021-08-27 02:48:00 Joglekar, Acacia [facility] POC GLUCOSE 2021-08-26 22:44:00 Joglekar, Acacia [facility] POC GLUCOSE 2021-08-26 16:43:00 Joglekar, Acacia [facility] POC GLUCOSE 2021-08-26 13:42:00 Joglekar, Acacia [facility] POC GLUCOSE 2021-08-26 01:50:00 Acacia Lewis Ho spital POC GLUCOSE 2021-08-25 23:14:00 Acacia Lewis spital COVID-19 QUALITATIVE RT-PCR 2021-08-25 21:42:00 Lorenzo Andrews [facility] POC GLUCOSE 2021-08-25 17:35:00 Acacia Lewis [facility] spital POC GLUCOSE 2021-08-25 12:51:00 Acacia Lewis [facility] POC GLUCOSE 2021-08-24 21:45:00 Acacia Lewis [facility]ital POC GLUCOSE 2021-08-24 16:30:00 Acacia Lewis Ho spital POC GLUCOSE 2021-08-24 13:01:00 Acacia Lewis spital XR CHEST 1 VW PORTABLE 2021-08-24 06:11:07 [facility] ECG 12-LEAD 2021-08-24 05:35:00 Justice [facility] TROPONIN T 2021-08-24 05:14:00 [facility] B NATRIURETIC PEPTIDE 2021-08-24 05:14:00 [facility] D-DIMER 2021-08-24 05:14:00 [facility] POC GLUCOSE 2021-08-24 01:34:00 Acacia Lewis Ho spital POC GLUCOSE 2021-08-23 22:13:00 JoAcacia rivera Ho spital POC GLUCOSE 2021-08-23 16:50:00 Acacia Lewis [facility] spital POC GLUCOSE 2021-08-23 12:50:00 Acacia [facility] POC GLUCOSE 2021-08-23 02:07:00 PosRichelle james Ho spital POC GLUCOSE 2021-08-22 22:43:00 PosRichelle james Ho spital POC GLUCOSE 2021-08-22 16:45:00 PosaniRichelle Ho spital POC GLUCOSE 2021-08-22 12:29:00 Posani, Richelle Daigle Ho spital XR SKULL < 4 VW 2021-08-22 04:41:17 [facility] 2021-08-22 00:46:00 PosaniRichelle Ho spital POC GLUCOSE 2021-08-21 22:41:00 PosRichelle james Ho spital POC GLUCOSE 2021-08-21 16:36:00 PosaniRichelle Ho spital POC GLUCOSE 2021-08-21 13:46:00 PosRichelle james Ho spital BASIC METABOLIC PANEL 2021-08-21 09:48:00 [facility] CBC WITH PLATELET AND 2021-08-21 09:48:00 [facility] DIFFERENTIAL PHOSPHORUS LEVEL 2021-08-21 09:48:00 [facility] MAGNESIUM LEVEL 2021-08-21 09:48:00 [facility] IONIZED CALCIUM 2021-08-21 09:48:00 [facility] ESTIMATED GFR 2021-08-21 09:48:00 [facility] MRI BRAIN W WO CONTRAST 2021-08-21 04:00:00 [facility] POC GLUCOSE 2021-08-21 01:14:00 PosRichelle james spital POC GLUCOSE 2021-08-20 20:59:00 PosRichelle james spital IR EPIDURAL BLOOD PATCH 2021-08-20 19:49:[address] [facility] [place] POC GLUCOSE 2021-08-20 16:26:00 PosRichelle james Ho spital POC GLUCOSE 2021-08-20 12:21:00 PosRichelle james Ho spital POC GLUCOSE 2021-08-20 09:12:00 PosRichelle james Ho spital POC GLUCOSE 2021-08-20 05:11:00 PosaniRichelle Ho spital BASIC METABOLIC PANEL 2021-08-20 04:57:00 [facility] WITH PLATELET AND 2021-08-20 04:57:00 Poserika [facility] DIFFERENTIAL THYROID STIMULATING HORMONE 2021-08-20 04:57:00 Joelle Alvares [facility] T4, FREE 2021-08-20 04:57:00 Joelle Alvares Geri [facility] Liong ESTIMATED GFR 2021-08-20 04:57:00 Poserika [facility] spital MAGNESIUM LEVEL 2021-08-20 04:57:00 Poserika, [facility] spital PHOSPHORUS LEVEL 2021-08-20 04:57:00 Poserika, [facility] ospital IONIZED CALCIUM 2021-08-20 04:57:00 Poserika [facility] spital POC GLUCOSE 2021-08-20 01:05:00 Essence [facility] spital CT HEAD WO CONTRAST 2021-08-19 22:19:25 [facility] 2021-08-19 20:28:13 Wilma [facility] Art MISCELLANEOUS REFERRAL TEST 2021-08-19 19:31:00 Essence [facility] SURGICAL PATHOLOGY REQUEST 2021-08-19 19:31:00 Essence [facility] URINE CULTURE 2021-08-19 17:20:00 [facility] [place] [facility] ELECTIVE ENDOTRACHEAL 2021-08-19 17:02:00 [facility] AIRWAY Art CRANIOTOMY 2021-08-19 16:44:00 Alonso Herrera Dudley [facility] XR SKULL < 4 VW 2021-08-19 15:03:00 [facility] [place] POC GLUCOSE 2021-08-19 12:52:00 [facility] POC GLUCOSE 2021-08-19 00:22:00 [facility] COVID-19 QUALITATIVE RT-PCR 2021-08-18 21:40:00 [facility] [place] ABO AND RH CONFIRMATION BY 2021-08-18 20:31:00 [facility] PROTOCOL [place] PARTIAL THROMBOPLASTIN TIME 2021-08-18 16:57:00 [facility] (PTT) [place] PROTHROMBIN TIME WITH INR 2021-08-18 16:57:00 [facility] [place] TYPE AND SCREEN 2021-08-18 16:57:00 [facility] [place] MRI BRAIN W WO CONTRAST 2021-08-18 15:18:00 [facility] [place] POC GLUCOSE 2021-08-18 13:28:00 Posani, Richelle [facility] CBC WITH PLATELET AND 2021-08-18 10:06:00 [facility] DIFFERENTIAL [place] POC GLUCOSE 2021-08-17 22:14:00 Posani, Richelle [facility] POC GLUCOSE 2021-08-17 18:05:00 Posani, Richelle [facility] spital POC GLUCOSE 2021-08-17 14:36:00 Posani, Richelleelbert Daigle spital TTE COMPLETE, W CONTRAST, W 2021-08-17 13:00:00 [facility] DOPPLER ([id number]) CBC WITH PLATELET AND 2021-08-17 10:27:00 [facility] DIFFERENTIAL [place] TROPONIN T 2021-08-17 10:27:00 Posani, Richelle [facility] spital BASIC METABOLIC PANEL 2021-08-17 10:27:00 Poserika [facility] ESTIMATED GFR 2021-08-17 10:27:00 Posani, Richelle Daigle spital ECG 12-LEAD 2021-08-17 05:20:42 Posani, Richelle [facility] POC GLUCOSE 2021-08-17 03:20:00 Posani, Richelle [facility] POC GLUCOSE 2021-08-16 22:56:00 Posani, Richelle [facility] POC GLUCOSE 2021-08-16 17:38:00 Posani, Richelle [facility] POC GLUCOSE 2021-08-16 13:51:00 Posani, [facility] Religious Ho spital CBC WITH PLATELET AND 2021-08-16 10:14:00 [facility] [place] BASIC METABOLIC PANEL 2021-08-16 10:14:00 PosRichelle james [facility] ESTIMATED GFR 2021-08-16 10:14:00 Richelle Lowry spital B NATRIURETIC PEPTIDE 2021-08-16 04:37:00 JusticeZoie [facility] TROPONIN T 2021-08-16 04:37:00 [facility] D-DIMER 2021-08-16 04:37:00 [facility] ECG 12-LEAD 2021-08-16 04:34:46 [facility] POC GLUCOSE 2021-08-16 02:27:00 PosRichelle james Ho spital POC GLUCOSE 2021-08-15 23:05:00 PosRichelle james spital BASIC METABOLIC PANEL 2021-08-15 21:03:00 Richelle Lowry [facility] ESTIMATED GFR 2021-08-15 21:03:00 PosaniRichelle Ho spital POC GLUCOSE 2021-08-15 18:03:00 PosaniRichelle Ho spital POC GLUCOSE 2021-08-15 13:24:00 PosRichelle james Ho spital POC GLUCOSE 2021-08-15 02:11:00 PosaniRichelle Ho spital POC GLUCOSE 2021-08-14 22:57:00 PosRichelle james Ho spital POC GLUCOSE 2021-08-14 17:36:00 PosaniRichelle Ho spital POC GLUCOSE 2021-08-14 13:23:00 PosaniRichelle Ho spital POC GLUCOSE 2021-08-14 01:21:00 Posani, Richelle Daigle Ho spital POC GLUCOSE 2021-08-13 22:46:00 PosaniRichelle Ho spital POC GLUCOSE 2021-08-13 17:17:00 PosRichelle james Ho spital POC GLUCOSE 2021-08-13 13:06:00 PosRichelle james Ho spital URINE CULTURE 2021-08-13 13:02:00 Charli Wang Ho spital URINE DRUGS OF ABUSE SCREEN 2021-08-13 10:52:00 [facility] URINALYSIS SCREEN AND 2021-08-13 10:52:00 [facility] MICROSCOPY, WITH REFLEX TO CULTURE HEMOGLOBIN A1C 2021-08-13 09:13:00 [facility] Religious Ho spital LIPID PANEL 2021-08-13 09:13:00 [facility] Religious Ho spital HOMOCYSTINE, PLASMA 2021-08-13 09:13:00 [facility] FOLATE LEVEL 2021-08-13 09:13:00 [facility] spital VITAMIN B12 LEVEL 2021-08-13 09:13:00 [facility] THYROID STIMULATING HORMONE 2021-08-13 09:13:00 [facility] T4, FREE 2021-08-13 09:13:00 [facility] spital SEDIMENTATION RATE 2021-08-13 09:13:00 [facility] C-REACTIVE PROTEIN 2021-08-13 09:13:00 [facility] PROTHROMBIN TIME WITH INR 2021-08-13 09:13:00 [facility] PARTIAL THROMBOPLASTIN TIME 2021-08-13 09:13:00 [facility] (PTT) HIV 1/2 ANTIGEN/ANTIBODY, 2021-08-13 09:13:00 [facility] FOURTH GENERATION, WITH REFLEXES SYPHILIS TREPONEMA SCREEN 2021-08-13 09:13:00 [facility] WITH RPR CONFIRMATION (REVERSE ALGORITHM) POC GLUCOSE 2021-08-13 03:11:00 Lauren Francois spital POC GLUCOSE 2021-08-12 23:38:00 Lauren Francois spital TROPONIN T 2021-08-11 18:20:00 Lauren Francois spital THYROID STIMULATING HORMONE 2021-08-11 18:20:00 Priscila [facility] T4, FREE 2021-08-11 18:20:00 Lauren Francois spital ECG 12-LEAD 2021-08-11 17:05:13 Lauren Francois Ho spital MRI THORACIC SPINE W WO 2021-08-10 14:20:00 [facility] CONTRAST MRI LUMBAR SPINE W WO 2021-08-10 13:30:00 [facility] CONTRAST MRI CERVICAL SPINE W WO 2021-08-10 12:45:00 [facility] CONTRAST ZZCOVID-19 ANTI-SPIKE IGG 2021-08-10 08:20:00 [facility] ANTIBODY TITER Terry CBC WITH PLATELET AND 2021-08-10 08:20:00 [facility] DIFFERENTIAL COMPREHENSIVE METABOLIC 2021-08-10 08:20:00 [facility] PANEL ZZCOVID-19 SEROLOGY PATIENT 2021-08-10 08:20:00 [facility] [place] ESTIMATED GFR 2021-08-10 08:20:00 [facility] spital TROPONIN T 2021-08-09 09:19:00 [facility]RAIN W WO CONTRAST 2021-08-09 06:35:00 Asim Almanza [facility] ECG ED PRELIMINARY 2021-08-09 03:18:13 [facility] INTERPRETATION CT HEAD WO CONTRAST 2021-08-09 03:04:32 [facility] POC , URINE 2021-08-09 02:52:00 WarrenJoel [facility] Andrea COVID-19 QUALITATIVE RT-PCR 2021-08-09 02:37:00 [facility] CBC WITH PLATELET AND 2021-08-09 02:37:00 [facility] DIFFERENTIAL PROTHROMBIN TIME WITH INR 2021-08-09 02:37:00 [facility] PARTIAL THROMBOPLASTIN TIME 2021-08-09 02:37:00 [facility] (PTT) COMPREHENSIVE METABOLIC 2021-08-09 02:37:00 [facility] PANEL ESTIMATED GFR 2021-08-09 02:37:00 [facility] spital TROPONIN T 2021-08-09 02:37:00 Taz, Manas [facility] B NATRIURETIC PEPTIDE 2021-08-09 02:37:00 Manas Mcghee [facility] XR SKULL < 4 VW 2021-08-09 02:09:31 Manas Mcghee spital ECG 12-LEAD 2021-08-09 01:42:14 Manas Mcghee spital XR ABDOMEN AP AND LATERAL 2021-08-09 01:40:26 [facility] C[facility] 2 OR 3 VW 2021-08-09 01:40:07 Manas Mcghee [facility] XR CHEST 2 VW 2021-08-09 01:39:53 Manas Mcghee spital Plan of Care Planned Activity Planned Date Details Comments Source Future Scheduled 2023-01-27 Screening for malignant Religious Test 16:53:10 neoplasm of colon Hospital (procedure) [code = 101926655] Future Scheduled 2023-01-27 Screening for malignant [facility] Test 16:53:10 neoplasm of colon Hospital (procedure) [code = 686368046] Future Scheduled 2023-01-27 Screening for malignant Religious Test 16:53:10 neoplasm of colon Hospital (procedure) [code = 907508537] Future Scheduled 2023-01-27 COVID-19 VACCINE (#1) [facility] 16:53:10 [code = COVID-19 VACCINE Hos pital (#1)] Future Scheduled 2023-01-27 Hepatitis C screening [facility] Test 16:53:10 (procedure) [code = Hospital 521809524] Future Scheduled 2023-01-27 Screening for malignant [facility] Test 16:53:10 neoplasm of cervix Hospital (procedure) [code = 754519563] Future Scheduled 2023-01-27 BREAST CANCER SCREENING Religious Test 16:53:10 [code = BREAST CANCER Hospit al SCREENING] Future Scheduled 2023-01-27 Screening for malignant Religious Test 16:53:10 neoplasm of colon Hospital (procedure) [code = 046681543] Future Scheduled 2023-01-27 Screening for malignant [facility] Test 16:53:10 neoplasm of colon Hospital (procedure) [code = 891835319] Future Scheduled 2023-01-27 INFLUENZA VACCINE (#1) M ethodist Test 16:53:10 [code = INFLUENZA VACCINE Ho spital (#1)] Future Scheduled 2022-12-06 Screening for malignant [facility] Test 06:32:01 neoplasm of colon Hospital (procedure) [code = 249390457] Future Scheduled 2022-12-06 Screening for malignant [facility] Test 06:32:01 neoplasm of colon Hospital (procedure) [code = 345914789] Future Scheduled 2022-12-06 Screening for malignant Religious Test 06:32:01 neoplasm of colon Hospital (procedure) [code = 493802544] Future Scheduled 2022-12-06 COVID-19 VACCINE (#1) [facility] 06:32:01 [code = COVID-19 VACCINE Hos pital (#1)] Future Scheduled 2022-12-06 Hepatitis C screening [facility] Test 06:32:01 (procedure) [code = Hospital 040796732] Future Scheduled 2022-12-06 Screening for malignant [facility] Test 06:32:01 neoplasm of cervix Hospital (procedure) [code = 879214414] Future Scheduled 2022-12-06 BREAST CANCER SCREENING Religious Test 06:32:01 [code = BREAST CANCER Hospit al SCREENING] Future Scheduled 2022-12-06 Screening for malignant [facility] Test 06:32:01 neoplasm of colon Hospital (procedure) [code = 957736217] Future Scheduled 2022-12-06 Screening for malignant Religious Test 06:32:01 neoplasm of colon Hospital (procedure) [code = 880125858] Future Scheduled 2022-12-06 INFLUENZA VACCINE (#1) M ethodist Test 06:32:01 [code = INFLUENZA VACCINE Ho spital (#1)] Future Scheduled 2022-12-03 Influenza Vaccine (Season [facility] Test 00:00:00 Ended) [code = Influenza Med ical Center Vaccine (Season Ended)] Future Scheduled 2022-12-03 Influenza Vaccine (#1[facility] [code = Influenza Vaccine Me dical Center (#1)] Future Scheduled 2022-11-01 Screening for malignant Religious Test 22:18:26 neoplasm of colon Hospital (procedure) [code = 660324878] Future Scheduled 2022-11-01 Screening for malignant [facility] Test 22:18:26 neoplasm of colon Hospital (procedure) [code = 216409937] Future Scheduled 2022-11-01 Screening for malignant [facility] Test 22:18:26 neoplasm of colon Hospital (procedure) [code = 977837787] Future Scheduled 2022-11-01 COVID-19 VACCINE (#1) [facility] 22:18:26 [code = COVID-19 VACCINE Hos pital (#1)] Future Scheduled 2022-11-01 Hepatitis C screening [facility] 22:18:26 (procedure) [code = Hospital 798683752] Future Scheduled 2022-11-01 Screening for malignant [facility] Test 22:18:26 neoplasm of cervix Hospital (procedure) [code = 163022702] Future Scheduled 2022-11-01 BREAST CANCER SCREENING Religious Test 22:18:26 [code = BREAST CANCER Hospit al SCREENING] Future Scheduled 2022-11-01 Screening for malignant [facility] Test 22:18:26 neoplasm of colon Hospital (procedure) [code = 955614622] Future Scheduled 2022-11-01 Screening for malignant [facility] Test 22:18:26 neoplasm of colon Hospital (procedure) [code = 219054750] Future Scheduled 2022-11-01 INFLUENZA VACCINE [code = Religious Test 22:18:26 INFLUENZA VACCINE] Hospital Future Scheduled 2022-09-16 Screening for malignant [facility] Test 16:43:42 neoplasm of colon Hospital (procedure) [code = 160480157] Future Scheduled 2022-09-16 Screening for malignant [facility] Test 16:43:42 neoplasm of colon Hospital (procedure) [code = 877177960] Future Scheduled 2022-09-16 Screening for malignant [facility] Test 16:43:42 neoplasm of colon Hospital (procedure) [code = 333158217] Future Scheduled 2022-09-16 COVID-19 VACCINE (#1) [facility] 16:43:42 [code = COVID-19 VACCINE Hos pital (#1)] Future Scheduled 2022-09-16 Hepatitis C screening [facility] 16:43:42 (procedure) [code = Hospital 633024712] Future Scheduled 2022-09-16 Screening for malignant [facility] Test 16:43:42 neoplasm of cervix Hospital (procedure) [code = 406120405] Future Scheduled 2022-09-16 BREAST CANCER SCREENING Religious Test 16:43:42 [code = BREAST CANCER Hospit al SCREENING] Future Scheduled 2022-09-16 Screening for malignant [facility] Test 16:43:42 neoplasm of colon Hospital (procedure) [code = 737845848] Future Scheduled 2022-09-16 Screening for malignant [facility] Test 16:43:42 neoplasm of colon Hospital (procedure) [code = 283779285] Future Scheduled 2022-09-16 INFLUENZA VACCINE [code = Religious Test 16:43:42 INFLUENZA VACCINE] Hospital Future Scheduled 2022-07-02 COVID-19 VACCINE (#1) [facility] 10:16:08 [code = COVID-19 VACCINE Hos pital (#1)] Future Scheduled 2022-07-02 Hepatitis C screening [facility] 10:16:08 (procedure) [code = Hospital 587921896] Future Scheduled 2022-07-02 Screening for malignant [facility] Test 10:16:08 neoplasm of cervix Hospital (procedure) [code = 392182204] Future Scheduled 2022-07-02 BREAST CANCER SCREENING Religious Test 10:16:08 [code = BREAST CANCER Hospit al SCREENING] Future Scheduled 2022-07-02 COLONOSCOPY SCREENING [facility] 10:16:08 [code = COLONOSCOPY Hospital SCREENING] Future Scheduled 2022-07-02 INFLUENZA VACCINE [code = Religious Test 10:16:08 INFLUENZA VACCINE] Hospital Future Scheduled [...] thodist Test 11:14:58 (procedure) [code = Hospital 611035281] Future Scheduled 2022-03-26 Screening for malignant Religious Test 11:14:58 neoplasm of cervix Hospital (procedure) [code = 036068991] Future Scheduled 2022-03-26 BREAST CANCER SCREENING Religious Test 11:14:58 [code = BREAST CANCER Hospit al SCREENING] Future Scheduled 2022-03-26 COLONOSCOPY SCREENING [facility] 11:14:58 [code = COLONOSCOPY Hospital SCREENING] Future Scheduled 2022-03-26 INFLUENZA VACCINE [code = Religious Test 11:14:58 INFLUENZA VACCINE] Hospital Future Scheduled 2022-03-19 COVID-19 VACCINE (#1) [facility] 04:23:42 [code = COVID-19 VACCINE Hos pital (#1)] Future Scheduled 2022-03-19 Hepatitis C screening [facility] 04:23:42 (procedure) [code = Hospital 956253421] Future Scheduled 2022-03-19 BREAST CANCER SCREENING Religious Test 04:23:42 [code = BREAST CANCER Hospit al SCREENING] Future Scheduled 2022-03-19 COLONOSCOPY SCREENING [facility] 04:23:42 [code = COLONOSCOPY Hospital SCREENING] Future Scheduled 2022-03-19 INFLUENZA VACCINE [code = Religious Test 04:23:42 INFLUENZA VACCINE] Hospital Future Scheduled 2021-12-26 HEPATITIS B VACCINES (1 Religious Test 19:34:27 of 3 - 3-dose series) Hospit al [code = HEPATITIS B VACCINES (1 of 3 - 3-dose series)] Future Scheduled 2021-12-26 COVID-19 VACCINE (#1) [facility] 19:34:27 [code = COVID-19 VACCINE Hos pital (#1)] Future Scheduled 2021-12-26 Hepatitis C screening [facility] 19:34:27 (procedure) [code = Hospital 143154151] Future Scheduled 2021-12-26 Screening for malignant [facility] Test 19:34:27 neoplasm of cervix Hospital (procedure) [code = 216690833] Future Scheduled 2021-12-26 BREAST CANCER SCREENING Religious Test 19:34:27 [code = BREAST CANCER Hospit al SCREENING] Future Scheduled 2021-12-26 COLONOSCOPY SCREENING [facility] Test 19:34:27 [code = COLONOSCOPY Hospital SCREENING] Future Scheduled 2021-12-26 INFLUENZA VACCINE [code = Religious Test 19:34:27 INFLUENZA VACCINE] Hospital Future Scheduled [...] [facility] 00:[facility] [code = 79236595] Medical Ce nter Future Scheduled 2020-01-05 Lipid panel (procedure) [facility] Test 00:00:00 [code = 23946805] Medical Ce nter Future Scheduled 2020-01-05 Lipid panel (procedure) [facility] Test 00:00:00 [code = 18212829] Medical Ce nter Future Scheduled 2020-01-05 Lipid panel (procedure) [facility] Test 00:00:00 [code = 86378754] Medical Ce nter Future Scheduled 2020-01-05 Lipid panel (procedure) [facility] Test 00:00:00 [code = 38820226] Medical Ce nter Future Scheduled 1996-01-05 Screening for malignant [facility] Test 00:00:00 neoplasm of cervix Medical C enter (procedure) [code = 542975353] Future Scheduled 1996-01-05 Screening for malignant [facility] Test 00:00:00 neoplasm of cervix Medical C enter (procedure) [code = 562472339] Future Scheduled 1996-01-05 Screening for malignant [facility] Test 00:00:00 neoplasm of cervix Medical C enter (procedure) [code = 799599720] Future Scheduled 1996-01-05 Screening for malignant [facility] Test 00:00:00 neoplasm of cervix Medical C enter (procedure) [code = 704900708] Future Scheduled 1996-01-05 Screening for malignant [facility] Test 00:00:00 neoplasm of cervix Medical C enter (procedure) [code = 982812407] Future Scheduled 1994 DTAP/TDAP/TD VACCINES (1 [facility] [...] screening Medical Cent er (procedure) [code = 587285691] Future Scheduled [address] [facility] Test 00:00:00 Counseling and Screening [facility] (12+) [code = Tobacco Cessation Counseling [...] Test 00:00:00 [code = CT [facility] Future Scheduled 1975 Screening for malignant [facility] Test 00:00:00 neoplasm of colon Medical Ce nter (procedure) [code = 811942842] Future Scheduled [address] Screening for malignant [facility] Test 00:00:00 neoplasm of colon Medical Ce nter (procedure) [code = 003584382] Future Scheduled [address] Screening for malignant [facility] Test 00:00:00 neoplasm of colon Medical Ce nter (procedure) [code = 658004705] Future Scheduled 1975 CT Colonography (combo) [facility] Test 00:00:00 [code = CT Colonography [facility] ([facility])] Future Scheduled 1975 Screening for malignant [facility] Test 00:00:00 neoplasm of colon Medical Ce nter (procedure) [code = 756507911] Future Scheduled 1975 Sigmoidoscopy [facility]] Medical Cente r Future Scheduled 1975 Screening for malignant [facility] Test 00:00:00 neoplasm of colon Medical Ce nter (procedure) [code = 496367415] Future Scheduled 1975 CT Colonography (combo) [facility] Test 00:00:00 [code = CT Colonography [facility] (combo)] Future Scheduled 1975 Screening for malignant [facility] Test 00:00:00 neoplasm of colon Medical Ce nter (procedure) [code = 707824643] Future Scheduled [address] Screening for malignant [facility] Test 00:00:00 neoplasm of colon Medical Ce nter (procedure) [code = 871636494] Future Scheduled [address] Screening for malignant [facility] Test 00:00:00 neoplasm of colon Medical Ce nter (procedure) [code = 262188954] Future Scheduled [address] Screening for malignant [facility] Test 00:00:00 neoplasm of colon Medical Ce nter (procedure) [code = 236575033] Future Scheduled 1975 Sigmoidoscopy [facility]] Medical Cente r Future Scheduled 1975 Screening for malignant [facility] Test 00:00:00 neoplasm of colon Medical Ce nter (procedure) [code = 445875288] Future Scheduled 1975 CT Colonography (combo) [facility] Test 00:00:00 [code = CT Colonography [facility] (combo)] Future Scheduled 1975 Screening for malignant [facility] Test 00:00:00 neoplasm of colon Medical Ce nter (procedure) [code = 542929799] Future Scheduled [address] Screening for malignant [facility] Test 00:00:00 neoplasm of colon Medical Ce nter (procedure) [code = 507233756] Future Scheduled [address] Screening for malignant [facility] Test 00:00:00 neoplasm of colon Medical Ce nter (procedure) [code = 021529856] Future Scheduled [address] Screening for malignant [facility] Test 00:00:00 neoplasm of colon Medical Ce nter (procedure) [code = 820543963] Future Scheduled 1975 Sigmoidoscopy [facility]oscopy] Medical Wille r Future Scheduled 1975 Screening for malignant [facility] Test 00:00:00 neoplasm of colon Medical Ce nter (procedure) [code = 826924565] Future Scheduled 1975 CT Colonography (combo) [facility] Test 00:00:00 [code = CT Colonography [facility] (combo)] Future Scheduled 1975 Screening for malignant [facility] Test 00:00:00 neoplasm of colon Medical Ce nter (procedure) [code = 790967631] Future Scheduled [address] Screening for malignant [facility] Test 00:00:00 neoplasm of colon Medical Ce nter (procedure) [code = 414641770] Future Scheduled [address] Screening for malignant [facility] Test 00:00:00 neoplasm of colon Medical Ce nter (procedure) [code = 887067627] Future Scheduled [address] Screening for malignant [facility] Test 00:00:00 neoplasm of colon Medical Ce nter (procedure) [code = 867211582] Future Scheduled 1975 Screening for malignant [facility] Test 00:00:00 neoplasm of colon Medical Ce nter (procedure) [code = 888718059] Future Scheduled 1975 Sigmoidoscopy [facility]] Medical Wille r Future Scheduled 1975 Sigmoidoscopy [facility] S[facility]oscopy] Medical Cente r Encounters Start End Encounter Admission Attending Care Care Encounter Source Date/Time Date/Time Type Type Clinicians Facility Department ID 2022-03-10 Outpatient Chacon, STLMLC STLMLC [id number] Common 09:34:02 [place]il [place] 2022-02-03 Outpatient Chacon, STLMLC STLMLC [id number] Common 14:59:00 Sunil [place] 2022-02-01 Outpatient Chacon, STLMLC STLMLC [id number] Common 11:11:01 Sunil [place] 2021-08-03 Outpatient Chacon, STLMLC STLMLC [id number] Common 16:18:01 Sunil [place] 2021-05-07 Outpatient Chacon, STLMLC STLMLC [id number] Common 13:30:02 Sunil [place] 2021-05-01 Outpatient Chacon, STLMLC STLMLC [id number] Common 08:23:02 Sunil [place] 2021-04-29 Outpatient Chacon, STLMLC STLMLC [id number] Common 14:31:29 Sunil [place] 2021-04-29 Outpatient Chacon, STLMLC STLMLC [id number] Common 14:12:21 Sunil [place] 2021-04-29 Outpatient Chacon, STLMLC STLMLC [id number] Common 12:44:58 Sunil [place] 2021-04-29 Outpatient Chacon, STLMLC STLMLC [id number] Common 12:34:29 Sunil [place] 2021-04-29 Outpatient Chacon, STLMLC STLMLC [id number] Common 12:27:16 Sunil [place] 2021-04-29 Outpatient Chacon, STLMLC STLMLC [id number] Common 12:20:23 Sunil [address] [place] 2021-04-29 Outpatient Chacon, STLMLC STLMLC [id number] Common 11:59:35 Sunil [address] [place] 2021-04-29 Outpatient Chacon, [facility] [id number] Common 11:46:14 Sunil [address] [place] 2021-04-29 Outpatient Chacon, [facility] [id number] Common 11:27:12 [facility] [address] [place] 2022-12-10 2022-12-10 Outpatient Tayler RAMIREZ, [facility] [id number] Univers 15:00:00 15:00:00 MAGUI howard [facility] 2022-10-22 2022-10-22 [facility], 1.2.840.1 [id number] Methodi 14:00:00 23:59:00 Encounter Alonso Buckner [id number] 3.430.2.7 Hospit a .3.242871 l .8 2022-10-22 2022-10-22 [facility] 1.2.840.1 [id number] Methodi 14:00:00 23:59:00 Encounter Alonso Buckner [id number] 3.430.2.7 Hospit a .3.870411 l .8 2022-10-22 2022-10-22 Office Chayo Lai 1.2.840.1 [id number] Methodi 13:00:00 17:31:[id number] 3.430.2.7 Hospit a .3.960317 l .8 2022-10-22 2022-10-22 Office Chayo Lai 1.2.840.1 [id number] Methodi 13:00:00 17:31:[id number] 3.430.2.7 Hospit a .3.667417 l .8 2022-10-22 2022-10-22 [place] [id number] Methodi 12:52:03 13:59:00 Encounter Alonso Dudley [id number] 3.430.2.7 Hospit a .3.234622 l .8 2022-10-22 2022-10-22 [facility], 1.2.840.1 [id number] Methodi 12:52:03 13:59:00 Encounter Alonso Buckner [id number] 3.430.2.7 Hospit a .3.374232 l .8 2022-10-14 2022-10-14 Outpatient R EDUARDO ESCALANTE [facility] [id number] Univers 08:40:00 08:40:00 EDUARDO ESCALANTE [facility] 2022-09-16 2022-09-16 Orders Chayo Lai 1.2.840.1 [id number] Methodi 00:00:00 00:00:[address] 3.430.2.7 Hospit a .3.724279 l .8 2022-09-16 2022-09-16 Orders Chayo Lai 1.2.840.1 [id number] Methodi 00:00:00 00:00:[address] 3.430.2.7 Hospit a .3.819176 l .8 2022-09-15 2022-09-15 Orders Chayo Lai 1.2.840.1 [id number] 21 [id number] Methodi 00:00:00 00:00:[address] 3.430.2.7 Hospit a .3.302755 l .8 2022-09-15 2022-09-15 Orders Medina, 1.2.840.1 [id number] 763519 9187 Methodi 00:00:00 00:00:00 Only Shila 10249.1.[address] 3.430.2.7 Hospit a .3.593904 l .8 2022-09-15 2022-09-15 Orders Chayo Lai 1.2.840.1 [id number] 21 [id number] Methodi 00:00:00 00:00:[address] 3.430.2.7 Hospit a .3.000279 l .8 2022-09-15 2022-09-15 Orders Medina, 1.2.840.1 [id number] [id number] 8747 Methodi 00:00:00 00:00:00 Only Shila 26737.1.[address] 3.430.2.7 Hospit a .3.271980 l .8 2022-09-06 2022-09-06 Outpatient R NICOLAS AGUAYO [facility] [id number] 471 Univers 10:00:00 10:00:00 NICOLAS AGUAYO [facility] 2022-08-04 2022-08-05 [facility] LanYogesh vivar 1.2.840.1 1040 83899 [id number] Methodi 12:20:00 18:30:00 Encounter Lilian Saeed 28995.1.[address] 3.430.2.7 Hospit a .3.919106 l .8 2022-08-04 2022-08-05 [facility] Yogesh Lan 1.2.840.1 1040 58069 [id number] Methodi 12:20:00 18:30:00 Encounter Lilian Saeed 29867.1.[address] 3.430.2.7 Hospit a .3.879925 l .8 2022-08-04 2022-08-04 Travel 1.2.840.1 1.2.304.692 0461 004294 Methodi 00:00:00 00:00:[address] 3.430.2.7 0.2.7.3.698 Ho spita .3.690379 084.8 l .8 2022-08-04 2022-08-04 Travel 1.2.840.1 1.2.639.463 2554 228884 Methodi 00:00:00 00:00:[address] 3.430.2.7 0.2.7.3.698 Ho spita .3.534895 084.8 l .8 2022-07-22 2022-07-22 [facility] [id number] Univers 08:40:00 09:00:26 GULSHAN ity of [facility] 2022-07-22 2022-07-22 Office [facility] 1.2.840.114 [id number] Univers 08:40:00 09:00:00 Visit Gulshan [place] 350.1.13.10 i ty of [place] [phone] Mo dicri NAL [address] [place] [address] 2022-07-22 2022-07-22 Letter [facility] 1.2.840.114 [id number] Univers 00:00:00 00:00:00 (Out) Gulshan [place] 350.1.13.10 i ty of [place] [phone] Mo dical NAL [address] [place] [address] 2022-07-22 2022-07-22 Refill [facility] 1.2.840.114 [id number] 745 Univers 00:00:00 00:00:00 Gulshan [place] 350.1.13.10 i ty of [place] [phone] Mo dicri NAL [address] [place] [address] 2022-07-05 2022-07-05 Telephone [facility] 1.2.243.401 8208 12706 Univers 00:00:00 00:00:00 Gulshan [place] 350.1.13.10 i ty of [place] [phone] Mo dical NAL [address] [place] [address] 2022-07-03 2022-07-03 Telephone [facility] 1.2.070.104 1872 09186 Univers 00:00:00 00:00:00 Gulshan [place] 350.1.13.10 i ty of [place] 4[place].7.2.[place] [phone] Mo dical NAL [address] [place] [address] 2022-07-02 2022-07-02 Outpatient R BROOKE [facility] EPL [id number] 062 Univers 10:16:00 18:00:00 GULSHAN ity of [facility] 2022-07-02 2022-07-02 Hospital ASH Cox 1.2.840.114 [id number] Univers 10:16:00 18:00:00 Encounter Gulshan NICHOLAS 350.1.13.10 ity of [facility] 4.2.7.2.686 Ronnie as [phone] [facility] [address] 2022-07-02 2022-07-02 Surgery ASH Cox 1.2.840.114 [id number] 794 Univers 12:45:00 14:45:00 Gulshan NICHOLAS 350.1.13.10 it y of [facility] 4.2.7.2.686 Ronnie as [phone] [facility] [address] 2022-07-02 2022-07-02 Orders Doctor LAUREN 1.2.840.114 [id number] 668 Univers 00:00:00 00:00:00 Only Unassigned, NICHOLAS 350.1.13.10 ity of [place] [facility] 4.2.7.2.686 Ronnie as [phone] [place] [address] [place] 2022-07-01 2022-07-01 Telephone [facility] 1.2.842.989 7713 95664 Univers 00:00:00 00:00:00 Gulshan [place] 350.1.13.10 i ty of [place] [phone] Mo dical NAL 059 [facility] 2022-06-29 2022-06-29 (TEL) [facility] [id number] Co mmon 00:00:00 00:00:00 [place] 2022-06-29 2022-06-29 Telephone [facility] 1.2.749.162 5789 17644 Univers 00:00:00 00:00:00 Gulsahn [place] 350.1.13.10 i ty of [place] 4.2.7.2.[place] [phone] Mo dical NAL 059 [facility] 2022-06-11 2022-06-11 Telephone BrookeEMILIAASH 1.2.928.978 7822 82481 Univers 00:00:00 00:00:00 Gulshan NICHOLAS 350.1.13.10 it y of [facility] 4.2.7.2.686 Ronnie as [phone] [place] [address] 2022-06-09 2022-06-09 Outpatient [facility] [id number] 196 Univers 08:40:00 09:05:19 ANGELA ity of [facility] 2022-06-09 2022-06-09 Office [facility] 1.2.840.114 [id number] 834 Univers 08:40:00 09:05:19 Visit Angela [place] 350.1.13.10 i ty of [place] 4[place] [phone] [address] 2022-06-09 2022-06-09 Orders Doctor LAUREN 1.2.840.114 [id number] 772 Univers 00:00:00 00:00:00 Only Unassigned, NICHOLAS 350.1.13.10 ity of [place] [facility] 4.2.7.2.686 Ronnie as [phone] [facility] [address] 2022-06-09 2022-06-09 Letter [facility] 1.2.840.114 [id number] 398 Univers 00:00:00 00:00:00 (Out) Angela [place] 350.1.13.10 i ty of [place] [phone] [address] 2022-06-09 2022-06-09 Telephone [facility] 1.2.864.458 2845 42217 Univers 00:00:00 00:00:00 Angela [place] 350.1.13.10 i ty of [place] 4.2.[place].2.[place] [phone] [address] 2022-06-08 2022-06-08 Telephone [facility] 1.2.241.645 8583 56854 Univers 00:00:00 00:00:00 Gulshan IVANHOE 350.1.13.10 i ty of [facility] 4.2.7.2.[place] [phone] Mo dical NAL 059 [facility] 2022-06-02 2022-06-02 Outpatient R DEDE VALENZUELA [facility] [id number] Univers 13:30:00 13:30:00 NICOLAS AGUAYO ity [facility] 2022-05-27 2022-05-27 Telephone Avery [facility] 1.2.770.669 9284 [id number] Univers 00:00:00 00:00:00 [facility] 350.1.13.10 it y of [place] 4.2.7.2.686 Ronnie as MITUL?BLEA [phone] [address] 2022-05-27 2022-05-27 Telephone Brooke [facility] 1.2.406.694 5791 [id number] Univers 00:00:00 00:00:00 Gulshan ZEYADSAN [facility] 350.1.13.10 i ty of [place] 4[place]2.[place] [phone] Mo alizari NAL [address] [place] [address] 2022-05-25 2022-05-25 Outpatient R AVERY [facility] [id number] Univers 10:30:00 10:30:00 DINO [facility] 2022-05-23 2022-05-24 Outpatient U DAYSI [facility] MARINO 1044 [id number] Univers 23:33:00 20:15:00 YUMIKO [facility]ly [facility] 2022-05-23 2022-05-24 Emergency Nahun Ortez [facility] 1.2.840. 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[employer] [facility] 1.2.8 40.114 [id number] Univers 09:30:00 09:45:00 Visit Gulshan Cox 350.1.13.10 ity of [place] 4.[place].2.[place] [phone] [facility] 353 [facility] 2022-05-20 2022-05-20 Office Brooke [facility] 1.2.840.114 [id number] Univers 08:00:00 08:27:27 Visit Gulshan OCTAV[place] 350.1.13.10 i ty of [facility] 4.2.7.2.[place] [phone] [address] 2022-05-20 2022-05-20 Outpatient R BROOKE [facility] [id number] Univers 08:00:00 08:27:27 GULSHAN ity [facility] 2022-05-20 2022-05-20 Orders Doctor LAUREN 1.2.840.114 [id number] Univers 00:00:00 00:00:00 Only Unassigned, NICHOLAS 350.1.13.10 ity of [place] [facility] 4.2.7.2.686 Ronnie as [phone] [address] 2022-05-18 2022-05-18 Office [facility] 1.2.840.114 [id number] Univers 08:40:00 09:26:57 Visit Angela Betzaida [place] 350.1.13.10 i ty of [place] 4.2.7.2.[place] [phone] [place] [address] [facility] 2022-05-18 2022-05-18 Outpatient R NADIA [facility] [id number] Univers 08:40:00 09:26:57 ANGELA ity [facility] 2022-05-11 2022-05-11 Telephone Salena [facility] 1.2.222.039 [id number] Univers 00:00:00 00:00:00 Sendil Sheyla [place] 350.1.13.10 ity of [facility] 4.2.7.[place] [phone] [address] 2022-05-10 2022-05-10 Outpatient R SALENA [facility] [id number] Univers 09:00:00 09:00:00 SENDIL ity [facility] 2022-04-30 2022-04-30 (TEL) STLMLC STLMLC [id number] Co mmon 00:00:00 00:00:00 [place] 2022-04-22 2022-04-22 Telephone [place] 16695.357.774 [id number] [id number] Univers 00:00:00 00:00:00 Sendil Sheyla [place] 350.1.13.10 ity of [facility] 4.2.7.2.[place] [phone] [address] 2022-04-22 2022-04-22 (TEL) STLMLC STLMLC [id number] Co mmon 00:00:00 00:00:00 [place] 2022-04-20 2022-04-20 (TEL) STLMLC STLMLC [id number] Co mmon 00:00:00 00:00:00 [place] 2022-04-13 2022-04-13 Telephone [facility] 1.2.340.589 [id number] [id number] Univers 00:00:00 00:00:00 Sendil Sheyla [place] 350.1.13.10 ity of [facility] 4.2.7.2.[place] [phone] [address] 2022-04-12 2022-04-12 Outpatient [facility] [id number] Univers 07:44:55 23:59:00 SENDIL ity [facility] 2022-03-24 2022-03-24 (TEL) STLMLC STLMLC [id number] Co mmon 00:00:00 00:00:00 [place] 2022-03-23 2022-03-23 Outpatient R SALENA [facility] [id number] Univers 16:00:00 16:00:00 SENDIL ity [facility] 2022-03-17 2022-03-17 Outpatient R SALENA [facility] [id number] Univers 15:30:00 16:18:08 SENDIL ity [facility] 2022-03-17 2022-03-17 Office [facility] 1.2.840.114 [id number] Univers 15:30:00 16:18:08 Visit Imani [place] 350.1.13.10 ity [facility] 4[place]2.7.2.[place] [phone] [place] dic[place] [address] [facility] 2022-03-17 2022-03-17 Orders Doctor LAUREN 1.2.840.114 [id number] Univers 00:00:00 00:00:00 Only Unassigned, NICHOLAS 350.1.13.10 ity of [facility] 4.2.7.2.686 Ronnie as [phone] [address] 2022-03-12 2022-03-12 (TEL) STLMLC STLMLC [id number] Co mmon 00:00:00 00:00:00 [place] 2022-02-18 2022-02-18 Documentat Katherine, 1.2.840.1 [id number] 21 [id number] Methodi 00:00:00 00:00:00 ion Kathryn 06987.1.[address] [place] 3.430.2.7 Hospit a .3.062570 l .8 2021-10-19 2021-12-27 Office Sharon, 1.2.840.1 [id number] 6136 Methodi 13:30:00 00:12:59 Visit Alonso Buckner 08330.1.[address] 3.430.2.7 Hospit a .3.516224 l .8 2021-11-13 2021-11-13 OFFICE STLMLC STLMLC [id number] Co mmon 00:00:00 00:00:00 VISIT EST Spir it PT LEVEL 3 - [facility] 2021-10-26 2021-10-26 (TEL) STLMLC STLMLC [id number] Co mmon 00:00:00 00:00:00 [facility] 2021-10-19 2021-10-19 [facility], 1.2.840.1 [id number] [id number] Methodi 13:21:54 23:59:00 Encounter Alonso Buckner 94956.1.[address] 3.430.2.7 Hospit a .3.758923 l .8 2021-10-19 2021-10-19 Travel 1.2.840.1 1.2.657.231 7335 657275 Methodi 00:00:00 00:00:[address] 3.430.2.7 0.2.7.3.698 Ho spita .3.828278 084.8 l .8 2021-10-14 2021-10-14 Outpatient Tayler MARTINO [facility] [id number] Univers 09:30:00 [facility] 2021-10-14 [facility] [id number] Univers 09:30:00 09:30:00 [facility] 2021-10-13 2021-10-13 (TEL) STLMLC STLMLC [id number] Co mmon 00:00:00 00:00:00 [facility] 2021-09-30 2021-09-30 OFFICE STLMLC STLMLC [id number] Co mmon 00:00:00 00:00:00 VISIT Spirit ESTAB PT - CHI LEVEL 5 [facility] 2021-09-29 2021-09-29 Travel 1.2.840.1 1.2.898.110 4597 [id number] Methodi 00:00:00 00:00:[address] 3.430.2.7 0.2.7.3.698 Ho spita .3.730757 084.8 l .8 2021-09-29 2021-09-29 Orders Katherine, 1.2.840.1 [id number] 05575 30005 Methodi 00:00:00 00:00:00 Only Kathryn 27401.1.[address] [place] 3.430.2.7 Hospit a .3.883775 l .8 2021-09-19 2021-09-19 Nurse LAUREN Nguyễn 1.2.840.114 [id number] 00 Univers 00:00:00 00:00:00 Triage Cheyoni Mckay [place] 350.1.13.10 ity of HOSPITAL 4.2.7.2.686 Ronnie [place] [phone] [place] [address] [address] 2021-09-15 2021-09-15 Orders Katherine, 1.2.840.1 [id number] 67626 90822 Methodi 00:00:00 00:00:00 Only Kathryn 34338.1.[address] [place] 3.430.2.7 Hospit a .3.716804 l .8 2021-09-15 2021-09-15 Orders Medina, 1.2.840.1 [id number] 6525 Methodi 00:00:00 00:00:00 Only Shila 15902.1.[address] 3.430.2.7 Hospit a .3.488801 l .8 2021-09-14 2021-09-14 Telephone JACKIE Martino 1.2.648.329 6042 8979 [facility] 00:00:00 00:00:00 [facility] 350.1.13.10 ity of [place]2.7.2.[place] [phone] [facility] [address] OFFICE BUILDING 2021-09-14 2021-09-14 Orders Katherine, 1.2.840.1 [id number] [id number] Methodi 00:00:00 00:00:00 Only Kathryn 18862.1.[address] [place] 3.430.2.7 Hospit a .3.708242 l .8 2021-09-142021-09-14 Documentat [place], 1.2.840.1 [id number] 520 [id number] Methodi 00:00:00 00:00:00 ion Shila 45774.1.[address] 3.430.2.7 Hospit a .3.908828 l .8 2021-09-14 2021-09-14 (TEL) STLMLC STLMLC [id number] Co mmon 00:00:00 00:00:00 [place] 2021-08-26 2021-09-09 [facility] 1.2.840.1 [id number] 001 [id number] Methodi 21:45:00 20:00:00 Encounter Acacia 21071.1.[address] 3.430.2.7 Hospit a .3.231511 l .8 2021-09-09 2021-09-09 (TEL) STLMLC STLMLC [id number] Co mmon 00:00:00 00:00:00 [place] 2021-08-08 2021-08-26 [facility] 1.2.840.1 [id number] Methodi 18:19:00 21:44:00 Encounter Fredi Schmid 91112.1.1 [facility] Lauren Francois .3.970045 l Richelle Lowry .8 2021-08-19 2021-08-19 Anesthesia Wilma, 1.2.840.1 [id number] 162 [id number] Methodi 11:42:00 16:30:00 Event Alex 13268.1.[address] [facility] 3.430.2.7 Hospit a .3.318020 l .8 2021-08-19 2021-08-19 Surgery Sharon, 1.2.840.1 [id number] 6820 Methodi 10:55:00 15:10:00 Alonso Dudley 62830.1.[address] 3.430.2.7 Hospit a .3.828768 l .8 2021-08-13 2021-08-13 (TEL) STLMLC STLMLC [id number] Co mmon 00:00:00 00:00:00 [place] 2021-08-12 2021-08-12 (TEL) STLMLC STLMLC [id number] Co mmon 00:00:00 00:00:00 [place] 2021-08-11 2021-08-11 (TEL) STLMLC STLMLC [id number] Co mmon 00:00:00 00:00:00 [place] 2021-08-08 2021-08-08 Travel 1.2.840.1 1.2.622.253 7912 673664 Methodi 00:00:00 00:00:[address] 3.430.2.7 0.2.7.3.698 Ho spita .3.883469 084.8 l .8 2021-08-07 2021-08-07 (TEL) STLMLC STLMLC [id number] Co mmon 00:00:00 00:00:00 [place] 2021-08-04 2021-08-04 (TEL) STLMLC STLMLC [id number] Co mmon 00:00:00 00:00:00 [place] 2021-08-03 2021-08-03 Telephone LAUREN Martino 1.2.638.444 7205 4753 Univers 00:00:00 00:00:00 Imani PETERSON 350.1.13.10 ity [facility] 4.2.7.2.686 Ronnie as [phone] [address] 2021-07-23 2021-07-23 Outpatient R SALENA [facility] [id number] Univers 13:00:00 14:06:54 IMANI howard [facility] 2021-07-23 2021-07-23 Office Salena [facility] 1.2.840.114 [id number] Univers 13:00:00 14:06:54 Visit Imani [place] [facility]13.[facility] 4[place].2.[place] [phone] Mo dical NAL [address] BUILDING 2021-06-23 2021-06-23 (TEL) STLMLC STLMLC [id number] Co mmon 00:00:00 00:00:00 [place] 2021-05-24 2021-05-24 Nurse LAUREN Simms 1.2.840.114 [id number] 11 Univers 00:00:00 00:00:00 Triage Rupinder PETERSON 350.1.13.10 [facility] 4.2.7.2.686 Ronnie kolton [phone] [place] [address] [address] 2021-05-23 2021-05-23 (TEL) STLMLC STLMLC [id number] Co mmon 00:00:00 00:00:00 [place] 2021-05-14 2021-05-14 (TEL) STLMLC STLMLC [id number] Co mmon 00:00:00 00:00:00 [place] 2021-05-07 2021-05-07 OFFICE STLMLC STLMLC [id number] Co mmon 00:00:00 00:00:00 VISIT [facility] PT - CHI LEVEL 4 [facility] 2021-05-05 2021-05-05 (TEL) STLMLC STLMLC [id number] Co mmon 00:00:00 00:00:00 [place] 2021-05-01 2021-05-01 (TEL) STLMLC STLMLC [id number] Co mmon 00:00:00 00:00:00 [place] 2021-04-10 2021-04-10 (TEL) STLMLC STLMLC [id number] Co mmon 00:00:00 00:00:00 [place] 2021-04-06 2021-04-06 (TEL) STLMLC STLMLC [id number] Co mmon 00:00:00 00:00:00 [place] 2021-04-06 2021-04-06 OFFICE STLMLC STLMLC [id number] Co mmon 00:00:00 00:00:00 VISIT [facility] PT - CHI LEVEL 4 [facility] 2021-02-12 2021-02-12 (TEL) STLC STLC [id number] Co mmon 00:00:00 00:00:00 [place] 2021-02-09 2021-02-09 Emergency X RAYO [facility] ERT [id number] Univers 21:28:00 23:35:00 FANNIE ity [facility] 2021-02-09 2021-02-09 Emergency [facility] 1.2.771.638 [id number] 1598 Univers 21:28:00 23:35:00 Fannie S OCTAV[place] 350.1.13.10 i ty [facility] [place]7.2.[place] [phone] [facility] [address] 2021-02-09 2021-02-09 Orders Doctor LAUREN 1.2.840.114 [id number] Univers 00:00:00 00:00:00 Only Unassigned, NICHOLAS 350.1.13.10 ity of [place] [facility] 4.2.7.2.686 Ronnie as [phone] [facility] [address] 2021-01-29 2021-01-29 (TEL) STLC STLC [id number] Co mmon 00:00:00 00:00:00 [place] 2021-01-27 2021-01-27 Office Salena [facility] 1.2.840.114 [id number] 32 Univers 08:24:21 09:10:00 Visit Imani Cunningham 350.1.13.10 ity [facility] 4.2.7.2.[place] [facility] [phone] Mo dical nal [address] [facility] 2021-01-27 2021-01-27 Outpatient R SALENA [facility] [id number] 108 Univers 08:30:00 08:30:00 SENDIL lee [facility] 2021-01-27 2021-01-27 Orders Doctor AGUILAR 1.2.840.114 [id number] Univers 00:00:00 00:00:00 Only Unassigned, NICHOLAS 350.1.13.10 ity of [place] [facility] 4.2.7.2.686 Ronnie as [phone] [place] [address] [place] 2021-01-27 2021-01-27 Mika Martino CAYAAKOV 1.2.840.114 [id number] 24 Univers 00:00:00 00:00:00 (Out) Imani Cunningham 350.1.13.10 itkirill [facility] 4.2.7.2.686 [place] Professio [phone] Mo dical [facility] [address] [facility] 2021-01-25 2021-01-25 (TEL) STLMLC STLMLC [id number] Co mmon 00:00:00 00:00:00 [place] 2021-01-22 2021-01-22 (TEL) STLMLC STLMLC [id number] Co mmon 00:00:00 00:00:00 [place] 2021-01-19 2021-01-19 (TEL) STLMLC STLMLC [id number] Co mmon 00:00:00 00:00:00 [place] 2020-12-10 2020-12-10 OFFICE STLMLC STLMLC [id number] Co mmon 00:00:00 00:00:00 VISIT [facility] LEVEL 4 [facility] 2020-11-21 2020-11-21 (TEL) STLMLC STLMLC [id number] Co mmon 00:00:00 00:00:00 [place] 2020-11-18 2020-11-18 (TEL) STLMLC STLMLC [id number] Co mmon 00:00:00 00:00:00 [facility] [facility] 2020-11-05 2020-11-05 Outpatient STLMLC STLMLC [id number] Common 00:00:00 00:00:00 [place] [facility] 2020-10-30 2020-10-30 Outpatient Tayler MARTINO CAYAAKOV [facility] [id number] Univers 11:30:00 11:30:00 IMANI howard [facility] 2020-09-15 2020-09-15 Outpatient STLMLC STLMLC [id number] Common 00:00:00 00:00:00 [place] 2020-09-04 2020-09-04 Outpatient Tayler MARTINO [facility] [id number] Univers [facility] 2020[facility] STLMLC STLMLC [id number] Common 00:00:00 00:00:00 [place] 2020-08-19 2020-08-19 Outpatient STLMLC STLMLC [id number] Common 00:00:00 00:00:00 [place] 2020-07-15 2020-07-15 Outpatient Tayler MARTINO [facility] [id number] Univers [facility]:00[facility]00 [facility] 2020-07-11 Outpatient STLMLC STLMLC [id number] Common 00:00:00 00:00:00 [place] 2020-07-10 2020-07-10 Outpatient STLMLC STLMLC [id number] Common 00:00:00 00:00:00 [place] 2020-07-02 2020-07-02 Outpatient STLMLC STLMLC [id number] Common 00:00:00 00:00:00 [place] 2020-06-29 2020-06-29 Outpatient STLMLC STLMLC [id number] Common 00:00:00 00:00:00 [place] 2020-06-10 2020-06-10 Outpatient STLMLC STLMLC [id number] Common 00:00:00 00:00:00 [place] 2020-06-03 2020-06-03 Outpatient STLMLC STLMLC [id number] Common 00:00:00 00:00:00 [place] 2020-06-02 2020-06-02 Roshni Martino [facility] [id number] 00:00:00 00:00:00 Imani Cunningham [id number] [place] [id number] [place] [phone] [address] 2020-06-02 2020-06-02 Telephone [facility] [id number] Univers 00:00:00 00:00:00 Imani Cunningham [id number] [id number] [phone] [address] 2020-05-31 2020-05-31 Outpatient STLMLC STLMLC [id number] Common 00:00:00 00:00:00 [place] 2020-05-07 2020-05-07 Outpatient STLMLC STLMLC [id number] Common 00:00:00 00:00:00 [place] 2020-05-05 2020-05-05 [facility] [id number] 00:00:00 00:00:00 Imani Cunningham [id number] [place] [id number] Professio [id number] [address] 2020-05-05 2020-05-05 [facility] [id number] Univers 00:00:00 00:00:00 Imani Cunningham [id number] [id number] [phone] [address] 2020-05-02 2020-05-02 [facility] [id number] [facility] 08:58:15 23:59:00 Encounter [facility] [id number] [id number] [id number] Mo pamella SANTOS [address] [place] [address] 2020-05-02 2020-05-02 [facility] [id number] [facility] 08:58:15 23:59:00 Encounter [facility] [id number] CARE [id number] CENTER AT [phone] [address] 2020-05-02 2020-05-02 [facility] [id number] Univers 09:00:00 09:00:00 SENDIL ity of [facility] 2020-05-02 2020-05-02 [facility] [id number] Univers 08:32:07 08:57:00 Encounter [facility] [id number] [id number] [phone] Mo dic[address] 2020-05-02 2020-05-02 [facility] [id number] [facility] 08:32:07 08:57:00 Encounter [facility] [id number] CARE [id number] CENTER AT [id number] [address] 2020-05-02 2020-05-02 [facility] [id number] Univers 08:31:50 08:31:50 Encounter [facility] [id number] [id number] [phone] [address] 2020-05-02 2020-05-02 [facility] [facility] 1.2.840.114 [id number] [facility] 08:31:50 08:31:50 Encounter Sendil K.H. SPECIALTY 350.1.13.10 CARE 4.2.7.2.686 CENTER AT [phone] [address] 2020-05-02 2020-05-02 [facility] 1.2.840.114 [id number] Univers 08:31:12 08:31:12 Encounter Sendil K.H. SPECIALTY 350.1.13.10 it[place] AT [phone] Mo dic[address] 2020-05-02 2020-05-02 [facility] 1.2.840.114 [id number] 08:31:12 08:31:12 Encounter Imani Carrion SPECIALTY 350.1.13.10 CARE 4.2.7.2.686 CENTER AT [phone] DANIELLE 805 [facility] 2020-04-24 2020-04-24 Outpatient SAL[facility] [id number] Univers 10:30:00 10:30:00 SENDIL ity of [facility] 2020-04-16 2020-04-16 Outpatient STLMLC STLMLC [id number] Common 00:00:00 00:00:00 [facility] 2020-04-11 2020-04-11 Orders Doctor LAUREN 1.2.840.114 [id number] Univers 00:00:00 00:00:00 Only Unassigned, NICHOLAS 350.1.13.10 ity of [place] [facility] 4.2.7.2.686 Ronnie as [phone] [address] 2020-04-11 2020-04-11 Orders Doctor LAUREN 1.2.840.114 [id number] 00:00:00 00:00:00 Only Unassigned, NICHOLAS 350.1.13.10 [place] [facility] 4.2.7.2.686 [phone] 009 2020-04-10 2020-04-10 [facility] [id number] Univers 00:00:00 00:00:00 Imani Cunningham 350.1.13.10 [place] [phone] [address] 2020-04-09 2020-04-09 [facility] 1.2.398.249 [id number] Univers 00:00:00 00:00:00 Imani Cunningham 350.1.13.10 [place] [phone] Mo dic[address] 2020-04-08 2020-04-08 [facility] 1.2.395.316 [id number] Univers 00:00:00 00:00:00 Sendil Sheyla Cunninhgam 350.1.13.10 [place] [phone] Mo dicri nal [address] [place] [address] 2020-04-08 2020-04-08 Telephone [facility] [id number] 00:00:00 00:00:00 Sendil AngeloRohanDonya Cunningham 350.1.13.10 [place] 4.2.7.2.686 Professio [phone] [address] 2020-04-01 2020-04-01 Office [facility] 12.840.114 [id number] Univers 10:44:06 12:00:21 Visit Imani Cunningham 350.1.13.10 [place] [phone] Mo dic[address] 2020-04-01 2020-04-01 Outpatient R [facility] [id number] Univers 11:00:00 11:00:00 SENDIL ity of [facility] 2020-04-01 2020-04-01 Outpatient STLMLC STLMLC [id number] Common 00:00:00 00:00:00 [facility] 2020-04-01 2020-04-01 [address]077[address]398 [id number] Univers 00:00:00 00:00:00 Imani Cunningham 350.1.13.10 [place] [phone] Mo dicri nal [address] [place] [address] 2020-03-31 2020-03-31 Outpatient STLMLC STLMLC [id number] Common 00:00:00 00:00:00 [facility] 2020-03-24 2020-03-24 Outpatient STLMLC STLMLC [id number] Common 00:00:00 00:00:00 [facility] 2020-03-17 2020-03-17 Outpatient STLMLC STLMLC [id number] Common 00:00:00 00:00:00 [facility] 2020-03-17 2020-03-17 Telephone Salena [facility] 1.2.344.464 [id number] Univers 00:00:00 00:00:00 Imani Cunningham 350.1.13.10 [place] [phone] Mo dical nal [address] [place] [address] 2020-03-12 2020-03-12 Outpatient STLMLC STLMLC [id number] Common 00:00:00 00:00:00 [facility] 2020-03-11 2020-03-11 Outpatient STLMLC STLMLC [id number] Common 00:00:00 00:00:00 [facility] 2020-03-03 2020-03-03 Outpatient STLMLC STLMLC [id number] Common 00:00:00 00:00:00 [facility] 2020-02-14 2020-02-14 Outpatient STLMLC STLMLC [id number] Common 00:00:00 00:00:00 [facility] 2020-02-11 2020-02-11 Outpatient STLMLC STLMLC [id number] Common 00:00:00 00:00:00 [facility] 2020-02-08 2020-02-08 Outpatient STLMLC STLMLC [id number] Common 00:00:00 00:00:00 [facility] 2020-02-01 2020-02-01 Outpatient R [facility] [id number] Univers 16:00:00 16:00:00 ity [facility] 2020-02-01 2020-02-01 Nurse Visit, Adc Nurse [facility] 1.2.840.1 14 [id number] Univers 07:53:14 08:46:38 Visit Imani Martino 350.1.13. 10 ity [facility] [place] [phone] Mo dical nal [address] [place] [address] 2020-01-30 2020-01-30 Outpatient STLMLC STLMLC [id number] Common 00:00:00 00:00:00 [facility] 2020-01-29 2020-01-29 [facility] 1.2.840.114 [id number] Univers 11:10:54 12:45:41 Visit Sendil Sheyla Cunningham 350.1.13.10 [place] [phone] Mo dical nal 9 [facility] 2020-01-29 2020-01-29 [facility] [id number] Univers 11:30:00 11:30:00 SENDIL ity [facility] 2020-01-29 2020-01-29 Orders Doctor LAUREN 1.2.840.114 [id number] Univers 00:00:00 00:00:00 Only Unassigned, NICHOLAS 350.1.13.10 ity of [place] [facility] 4.2.7.2.686 Ronnie as [phone] [address] 2020-01-23 2020-01-23 Outpatient STLMLC STLMLC [id number] Common 00:00:00 00:00:00 [facility] 2020-01-22 2020-01-22 Outpatient STLMLC STLMLC [id number] Common 00:00:00 00:00:00 [facility] 2020-01-16 2020-01-16 Orders Doctor LAUREN 1.2.840.114 [id number] Univers 00:00:00 00:00:00 Only Unassigned, NICHOLAS 350.1.13.10 ity of [place] [facility] 4.2.7.2.686 Ronnie as [phone] [address] 2020-01-15 2020-01-15 Outpatient STLMLC STLMLC [id number] Common 00:00:00 00:00:00 [facility] 2020-01-10 2020-01-10 Telephone [facility] [id number] [id number] Univers 00:00:00 00:00:00 Sendil Sheyla Cunningham 350.1.13.10 [place] [phone] [facility] nal 9 [facility] 2020-01-09 2020-01-09 Outpatient STLMLC STLMLC [id number] Common 00:00:00 00:00:00 [facility] 2020-01-07 2020-01-07 Outpatient STLMLC STLMLC [id number] Common 00:00:00 00:00:00 [facility] 2020-01-07 2020-01-07 Orders Doctor LAUREN 1..840.114 [id number] Univers 00:00:00 00:00:00 Only Unassigned, NICHOLAS 350.1.13.10 [facility] 4.2.7.2.686 Ronnie as [phone] [address] 2020-01-03 2020-01-03 Office [facility] 1.2.361.377 [id number] Univers 11:07:14 12:05:52 Visit Angelina Cunningham 350.1.13.10 i ty [facility] [place].2.[place] [phone] Mo dical [address] 2020-01-03 2020-01-03 Outpatient [facility] [id number] Univers 11:15:00 11:15:00 ANGELINA [facility] 2020-01-01 2020-01-01 Outpatient [facility] [id number] Univers 15:30:00 15:30:00 ANGELINA kirill [facility] 2019-12-19 2019-12-19 Out[facility] [id number] Common 16:30:00 16:30:00 t [facility] [address] [facility] 2019-12-18 2019-12-18 Outpatient [facility] [id number] Common 13:33:00 13:33:00 t [facility] [address] [facility] 2019-12-18 2019-12-18 Laboratory Pc, Adc Echo Room 1 [facility] 1 .2.840.114 [id number] Univers 09:52:20 11:27:29 Only Imani Martino 350.1.13. 10 [place] [phone] Mo dical nal 059 [facility] 2019-12-18 2019-12-18 Outpatient R [facility] [id number] Univers 10:00:00 10:00:00 ity [facility] 2019-12-13 2019-12-13 Office [facility] 1.2.840.114 [id number] Univers 10:43:37 11:48:34 Visit Imani Cunningham 350.1.13.10 [place] [phone] Mo dical nal [address] [place] [address] 2019-12-13 2019-12-13 [facility] [id number] Univers 11:00:00 11:00:00 [facility]IL [facility] 2019-12-13 2019-12-13 Orders Doctor LAUREN 1.2.840.114 [id number] Univers 00:00:00 00:00:00 Only Unassigned, NICHOLAS 350.1.13.10 ity of [facility] 4.2.7.2.686 Ronnie as [phone] [address] 2019-12-13 2019-12-13 [facility] 1.2.840.114 [id number] Univers 00:00:00 00:00:00 Imani Cunningham 350.1.13.10 [place] [phone] Mo dical nal 9 [facility] 2019-12-09 2019-12-09 Outpatient [facility] [id number] Common 17:43:00 17:43:00 t [facility] it Drive [facility] 2019-12-04 2019-12-04 Outpatient R JONI [facility] [id number] Univers 13:30:00 13:30:00 ANGELINA ity [facility] 2019-11-26 2019-11-26 Outpatient [facility] [id number] Common 15:17:00 15:17:00 Nualight [facility] it Drive [facility] 2019-11-24 2019-11-24 Outpatient [facility] [id number] Common 15:24:00 15:24:[address] [facility] 2019-11-22 2019-11-22 Outpatient [facility] [id number] Common 16:03:00 16:03:[address] [facility] 2019-11-19 2019-11-19 Outpatient [facility] [id number] Common 14:35:00 14:35:[address] [facility] 2019-11-16 2019-11-16 Outpatient [facility] [id number] Common 09:15:00 09:15:[address] [facility] 2019-11-09 2019-11-09 Outpatient SLSL [facility] [id number] SLSL 00:00:00 00:00:00 2019-11-08 2019-11-08 Out[facility] [id number] Common 09:12:00 09:12:[address] [facility] 2019-11-08 2019-11-08 Outpatient SLSL [facility] [id number] SLSL 00:00:00 00:00:00 2019-11-08 2019-11-08 Outpatient EL [facility]SL [facility] [id number] [facility]SL 00:00:00 00:00:00 2019-11-02 2019-11-02 Outpatient SLSL [facility] [id number] SLSL 00:00:00 00:00:00 2019-11-01 2019-11-01 Outpatient SLSL [facility] [id number] SLSL 00:00:00 00:00:00 2019-11-01 2019-11-01 Outpatient EL SLSL [facility] [id number] SLSL 00:00:00 00:00:00 2019-10-30 2019-10-30 Out[facility] [id number] Common 17:05:00 17:05:[address] [facility] 2019-10-29 2019-10-29 Outpatient [facility] [id number] Common 15:04:00 15:04:[address] [facility] 2019-10-29 2019-10-29 Outpatient [facility] [id number] Common 08:06:00 08:06:[address] [facility] 2019-10-23 2019-10-23 Office Joni [facility] [id number] Univers 15:00:23 15:30:23 Visit Angelina Octavio 350.1.13.10 i ty [facility] [place]2.[place] [phone] Mo dical [address] 2019-10-23 2019-10-23 [facility] [id number] Univers 15:00:00 15:00:00 ANGELINA howard [facility] 2019-10-23 2019-10-23 Orders Doctor LAUREN 1.2.840.114 [id number] Univers 00:00:00 00:00:00 Only Unassigned, NICHOLAS 350.1.13.10 it[place] of [place] [facility] 4.2.7.2.686 Ronnie as [phone] [place] [address] [address] 2019-10-22 2019-10-22 Out[facility] [id number] Common 12:23:00 12:23:[address] [facility] 2019-10-18 2019-10-18 Outpatient [facility] [id number] Common 14:30:00 14:30:[address] [facility] 2019-09-20 2019-09-20 Outpatient [facility] [id number] Common 09:00:00 09:00:[address] [facility] 2019-09-20 2019-09-20 Orders Doctor LAUREN 1.2.840.114 [id number] Univers 00:00:00 00:00:00 Only Unassigned, NICHOLAS 350.1.13.10 it[place] of [place] [facility] 4.2.7.2.686 Ronnie as [phone] [place] [address] [place] 2018-11-28 2018-11-28 Telephone Leeann [facility] [id number] [id number] Univers 00:00:00 00:00:00 Ismael Cooper [facility] 350.1.13.10 it y of Surgical 4.2.7.2.686 [place] as Specialti [phone] Mo dical es [address] [place] 2018-11-27 2018-11-27 Telephone Gurpreet [facility] 1.2.840.114 [id number] Univers 00:00:00 00:00:00 Denys L Aspen Evian 350.1.13.10 it y of Surgical 4.2.7.2.686 [place] as Specialti [phone] Mo dical es [address] [place] Results Test Description Test Time Test Comments Results Result [facility] e Comments XR Skull < 4 Vw 2022-10-03 EXAMINATION: XR Meth odist 1 SKULL < 4 VW [facility] 19:51:49 CLINICAL HISTORY: 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 Left temporoparietal ventriculostomy is present. Catheter appears intact without evidence of kinking. Shunt dial position is unchanged. Status post left temporal parietal occipital craniotomy. No displaced fracture. No suspicious osseous abnormality. [id number] MRI Head 2022-10-03 This exam was not Methodi st External Study 1 acquired at a [facility] 17:57:18 Religious facility and has not been interpreted by a Religious Provider. The exam was imported into our imaging system. ECG 12 lead 2022-08-05 22:59:20 Test Item [...] of 04-AUG-2022 16:36,-No significant change was found- [address]2023-05-04 22:59:20 Test Item Value Reference Range Interpretation [...] of 04-AUG-2022 16:36,-No significant change was found- [address]23-05-04 22:59:20 Test Item Value Reference Range Interpretation [...] of 04-AUG-2022 16:36,-No significant change was found- [address]23-05-04 22:59:20 Test Item Value Reference Range Interpretation [...] 16:36,-No significant change was found- [facility] (routine)2022-08-05 18:36:01VIDEO-EEG RECORDING AWAKE & DROWSY. Date of Service:08/05/22 Patient Name: Miky Godwin [facility]#: [id number] of : 1975 Attending MD: Sanjuanita Rhoades MD Technique: Recordings were obtained using a standard international 10-20 electrode placement supplemented with a single electrocardiogram chest electrode. The recordings were obtained using a reference electrode and reformatted digitally into sequential bipolar and referential montages for review. Indication: 47 y.o. year old female referred for video-EEG to evaluate for seizures. Findings: Background: The waking background at rest is continuous, composed of an admixture of largely alpha and beta frequencies, with the expected anterior to posterior voltage and frequency gradient with intermixed faster frequencies anteriorly and a symmetric and well-formed posterior dominant alpha rhythm of 10 hertz, that is reactive to eye opening. There is intermittent excess delta activity recorded in the right parietal occipital region. With drowsiness, there is the expected attenuation of the posterior dominant rhythm. Hyperventilation: wasnot performed.Photic stimulation: was not performed. Interictal: There are no epileptiform discharges captured Impression:This is an abnormal video-EEG characterized by focal slowing over the right parietal occipital region, indicative of an area of focal cerebral dysfunction. There are no epileptiform discharges or seizures captured. ICD-10 Code: R569XR Abdomen 1 Portable 2022-08-05 04:21:09XR ABDOMEN 1 PORTABLECLINICAL INDICATION: abdo pain COMPARISON: 08/04/2022. IMPRESSION: Views of the abdomen demonstrate unremarkable bowel gas pattern. Visceral contours appear within normal limits. There are no radiopaque calculi. Bones are intact. [employer] shunt catheters project over the right abdomen.*[id number] [id number] 20:55:26 EXAMINATION: CT HEAD WO CONTRAST CLINICAL HISTORY: dizzy mendez vp information technology shunt COMPARISON: CT of the head dated August 19, 2021 and MRI of the brain dated October 19, [address] images were acquired using low-dose technique with automated exposure control. IMPRESSION: Stable right frontoparietal approach [employer] shunt terminating in the right lateral ventricle with no hydrocephalus. No acute intracranial hemorrhage, mass or mass effect. Right parieto-occipital craniotomy with postsurgical changes in the right temporal occipital parenchyma. Suboccipital craniotomy with stable chronic changes in the cerebellum. Small stable calcified meningioma in the posterior left frontal opercular region measuring 8 mm with no regional mass effect. [id number] [facility] CampusXR Shunt Series Chest and Abdomen 2 [id number] 18:35:38EXAMINATION: XR SHUNT SERIES CHEST ABD 2 VIEW CLINICAL HISTORY: shunt mendez COMPARISON: 07/02/2021.. IMPRESSION: Ventriculoperitoneal shunt catheter is seen extending along the right chest wall and abdominal wall, entering the right upper quadrant, coiling in the upper abdomen terminating within the pelvis, in the left lower quadrant. No evidence of significant kinking or discontinuity along the course of the catheter tubing. There is a calcified tract of a prior ventriculoperitoneal shunt in the right c hest wall. Moderate cardiomegaly. No focal consolidation in the lungs. Small left pleural effusion with left basilar atelectasis. No pneumothorax. Nonobstructive bowel gas pattern. Moderate stool burden in the colon. No acute osseous abnormality. [id number] Shunt Series Head and Neck 2 [id number] 18:25:32EXAMINATION: XR SHUNT SERIES HEAD NECK 2 VIEW CLINICAL HISTORY: shunt mendez COMPARISON: Skull radiographs August 21, 2021. IMPRESSION: 4 images including AP and lateral views of the skull and neck obtained. There are 2 right-sided ventriculoperitoneal shunt catheters in unchanged position subjacent to craniotomy changes. The more lateral likely orphaned catheter demonstrating encrustation/calcifications. No definite discontinuity or kinking along the course of the likely intact nonorphaned more medial catheter. [id number] ED Preliminary Interpretation - Not an Order 2022-08-04 17:07:38Yogesh Lan MD 08/04/2022 6:50 PME ED Preliminary Interpretation - Not an Order Performed by: Yogesh Lan MDAuthorized by: Yogesh Lan MD ECG reviewed by ED Physician in the absence of a event planner: yes Interpretation: Interpretation: normal Rate: ECG rate: 69 ECG rate assessment: normal Rhythm: Rhythm: sinus rhythm Ectopy: Ectopy: none QRS: QRS axis: NormalConduction: Conduction: normal ST segments: ST segments: NormalT waves: T waves: normalBASIC METABOLIC PANEL (NA, K, CL, CO2, GLUCOSE, BUN, CREATININE, CA)2022-07-02 17:07:27 Test Item Value Reference Range Interpretation Comments NA (test code = 137 mmol/L 135-145 4748605127) K (test code = 3.2 mmol/L 3.5-5.0 L 4257964391) CL (test code = 100 mmol/L 98-108 3331810837) CO2 TOTAL (test code = 30 mmol/L 23-31 0753566321) AGAP (test code = 7 2-16 7750624258) BUN (test code = 16 mg/dL 7-23 0359963735) GLUCOSE (test code = 104 mg/dL 70-110 3686804975) CREATININE (test code = 0.77 mg/dL 0.50-1.04 0206355332) CALCIUM (test code = 8.8 mg/dL 8.6-10.6 9430000899) eGFR (test code = 80.4 mL/min/1.73m2 4492648164) BEHZAD (test code = BEHZAD) Association of [...] tests). Lab Interpretation Abnormal (test code = 55258-8) [facility] METABOLIC PANEL (NA, K, CL, CO2, GLUCOSE, BUN, CREATININE, CA)2022-07-02 17:07:27 Test Item Value Reference Range Interpretation Comments NA (test code = 137 mmol/L 135-145 3970305106) K (test code = 3.2 mmol/L 3.5-5.0 L 6518195299) CL (test code = 100 mmol/L 98-108 9674847220) CO2 TOTAL (test code = 30 mmol/L 23-31 8134747963) AGAP (test code = 7 2-16 6902930273) BUN (test code = 16 mg/dL 7-23 0806129295) GLUCOSE (test code = 104 mg/dL 70-110 2852087200) CREATININE (test code = 0.77 mg/dL 0.50-1.04 4427458341) CALCIUM (test code = 8.8 mg/dL 8.6-10.6 2426095474) eGFR (test code = 80.4 mL/min/1.73m2 5370349321) BEHZAD (test code = BEHZAD) Association of [...] tests). Lab Interpretation Abnormal (test code = 35129-6) [facility] METABOLIC PANEL (NA, K, CL, CO2, GLUCOSE, BUN, CREATININE, CA)2022-07-02 17:07:27 Test Item Value Reference Range Interpretation Comments NA (test code = 137 mmol/L 135-145 8350200012) K (test code = 3.2 mmol/L 3.5-5.0 L 5603874210) CL (test code = 100 mmol/L 98-108 7853612700) CO2 TOTAL (test code = 30 mmol/L 23-31 6978850359) AGAP (test code = 7 2-16 3267456513) BUN (test code = 16 mg/dL 7-23 1146512047) GLUCOSE (test code = 104 mg/dL 70-110 2775893655) CREATININE (test code = 0.77 mg/dL 0.50-1.04 1616648375) CALCIUM (test code = 8.8 mg/dL 8.6-10.6 0508819468) eGFR (test code = 80.4 mL/min/1.73m2 5839670704) BEHZAD (test code = BEHZAD) Association of [...] tests). Lab Interpretation Abnormal (test code = 77194-9) [facility] / [id number] 16:54:42 Test Item Value Reference Range Interpretation Comments PROTIME PATIENT (test 12.8 See_Comment H [Auto mated message] code = 5964-2) The system [employer] generated this result transmitted ref erence range: 10.1 - 1 2.6 Seconds. The reference range was not used to int erpret this result as normal/abnormal . INR (test code = 6301-6) 1.2 Nor mal INR <1.1; Warfarin Therap eutic range 2.0 to 3. 0 or 2.5 to 3.5, dep ending upon the indica tions. Lab Interpretation (test Abnormal code = 86259-6) [facility] Center[facility] / [id number] 16:54:42 Test Item Value Reference Range Interpretation Comments PROTIME PATIENT (test 12.8 See_Comment H [Auto mated message] code = 5964-2) The system [employer] generated this result transmitted ref erence range: 10.1 - 1 2.6 Seconds. The reference range was not used to int erpret this result as normal/abnormal . INR (test code = 6301-6) 1.2 Nor mal INR <1.1; Warfarin Therap eutic range 2.0 to 3. 0 or 2.5 to 3.5, dep ending upon the indica tions. Lab Interpretation (test Abnormal code = 80899-5) [facility] / [id number] 16:54:42 Test Item Value Reference Range Interpretation [...] tions. Lab Interpretation (test Abnormal code = 09018-2) [facility] CenterCBC WITH [id number] 16:53:20 Test Item Value Reference Range Interpretation Comments WBC (test code = 8.10 See_Comment [Automated 1990-2) message] The sy stem which generated this result transmitted reference range : 4.30 - 11.10 10*3/?L. The reference range was not used to interpret this result as normal/abnormal . RBC (test code = 5.22 See_Comment [Automated 279-8) message] The sy stem which generated this [...] RDW-SD (test code = 40.9 fL 39.0-49.9 58641-6) RDW-CV (test code = 13.3 % 12.0-15.5 788-0) PLT (test code = 363 See_Comment H [Automated 777-3) message] The sy stem which generated this result transmitted reference range : 166 - 358 10*3/ ?L. The reference r benito was not used to interpret this result as normal/abnormal . MPV (test code = 8.9 fL 9.5-12.9 L 78055-4) NRBC/100 WBC (test 0.0 See_Comment [Automat ed code = 3494313562) message] The system which generated this result transmitted reference range : 0.0 - 10.0 /100 WBCs. The refer ence range was not u sed to interpret th is result as normal/abnormal . NRBC x10^3 (test code See_Comment [Auto mated = 7099722539) message] The s ystem which generated this result transmitted reference range : 10*3/?L. The reference range was not used to interpret this result as normal/abnormal . GRAN MAT (NEUT) % 65.9 % (test code = 770-8) IMM GRAN % (test code 0.20 % = 3727871035) LYMPH % (test code = 22.7 % 736-9) MONO % (test code = 8.0 % 5905-5) EOS % (test code = 2.5 % 713-8) BASO % (test code = 0.7 % 706-2) GRAN MAT x10^3(ANC) 5.33 10*3/uL 1.88-7.09 (test code = 1307288148) IMM GRAN x10^3 (test 0.00-0.06 code = 9679496647) LYMPH x10^3 (test code 1.84 10*3/uL 1.32-3.29 = 731-0) MONO x10^3 (test code 0.65 10*3/uL 0.33-0.92 = 742-7) EOS x10^3 (test code = 0.20 10*3/uL 0.03-0.39 711-2) BASO x10^3 (test code 0.06 10*3/uL 0.01-0.07 = 704-7) Lab Interpretation Abnormal (test code = 45010-1) [facility] WITH [id number] 16:53:20 Test Item Value Reference Range Interpretation [...] RDW-SD (test code = 40.9 fL 39.0-49.9 24078-6) RDW-CV (test code = 13.3 % 12.0-15.5 788-0) PLT (test code = 363 See_Comment H [Automated 777-3) message] The sy stem which generated this result transmitted reference range : 166 - 358 10*3/ ?L. The reference r benito was not used to interpret this result as normal/abnormal . MPV (test code = 8.9 fL 9.5-12.9 L 97521-8) NRBC/100 WBC (test 0.0 See_Comment [Automat ed code = 5742287678) message] The system which generated this result transmitted reference range : 0.0 - 10.0 /100 WBCs. The refer ence range was not u sed to interpret th is result as normal/abnormal . NRBC x10^3 (test code See_Comment [Auto mated = 4902058344) message] The s ystem which generated this result transmitted reference range : 10*3/?L. The reference range was not used to interpret this result as normal/abnormal . GRAN MAT (NEUT) % 65.9 % (test code = 770-8) IMM GRAN % (test code 0.20 % = 5221924917) LYMPH % (test code = 22.7 % 736-9) MONO % (test code = 8.0 % 5905-5) EOS % (test code = 2.5 % 713-8) BASO % (test code = 0.7 % 706-2) GRAN MAT x10^3(ANC) 5.33 10*3/uL 1.88-7.09 (test code = 3856030326) IMM GRAN x10^3 (test 0.00-0.06 code = 3475604329) LYMPH x10^3 (test code 1.84 10*3/uL 1.32-3.29 = 731-0) MONO x10^3 (test code 0.65 10*3/uL 0.33-0.92 = 742-7) EOS x10^3 (test code = 0.20 10*3/uL 0.03-0.39 711-2) BASO x10^3 (test code 0.06 10*3/uL 0.01-0.07 = 704-7) Lab Interpretation Abnormal (test code = 94205-2) [facility] WITH [id number] 16:53:20 Test Item Value Reference Range Interpretation Comments WBC (test code = 8.10 See_Comment [Automated 4290-2) message] The sy stem which generated this result transmitted reference range : 4.30 - 11.10 10*3/?L. The reference range was not used to interpret this result as normal/abnormal . RBC (test code = 5.22 See_Comment [Automated 883-8) message] The sy stem which generated this [...] RDW-SD (test code = 40.9 fL 39.0-49.9 58024-6) RDW-CV (test code = 13.3 % 12.0-15.5 788-0) PLT (test code = 363 See_Comment H [Automated 777-3) message] The sy stem which generated this result transmitted reference range : 166 - 358 10*3/ ?L. The reference r benito was not used to interpret this result as normal/abnormal . MPV (test code = 8.9 fL 9.5-12.9 L 92811-2) NRBC/100 WBC (test 0.0 See_Comment [Automat ed code = 7357409262) message] The system which generated this result transmitted reference range : 0.0 - 10.0 /100 WBCs. The refer ence range was not u sed to interpret th is result as normal/abnormal . NRBC x10^3 (test code See_Comment [Auto mated = 4520269474) message] The s ystem which generated this result transmitted reference range : 10*3/?L. The reference range was not used to interpret this result as normal/abnormal . GRAN MAT (NEUT) % 65.9 % (test code = 770-8) IMM GRAN % (test code 0.20 % = 9459093691) LYMPH % (test code = 22.7 % 736-9) MONO % (test code = 8.0 % 5905-5) EOS % (test code = 2.5 % 713-8) BASO % (test code = 0.7 % 706-2) GRAN MAT x10^3(ANC) 5.33 10*3/uL 1.88-7.09 (test code = 8634932432) IMM GRAN x10^3 (test 0.00-0.06 code = 3453678248) LYMPH x10^3 (test code 1.84 10*3/uL 1.32-3.29 = 731-0) MONO x10^3 (test code 0.65 10*3/uL 0.33-0.92 = 742-7) EOS x10^3 (test code = 0.20 10*3/uL 0.03-0.39 711-2) BASO x10^3 (test code 0.06 10*3/uL 0.01-0.07 = 704-7) Lab Interpretation Abnormal (test code = 44090-9) [facility], Tr[facility]lycerides, HDL[facility]2022-05-24 11:25:37 Test Item Value Reference Range Interpretation Comments CHOL (test code = 7268105234) 222 mg/dL 120-200 H HDL (test code = 2834058181) 31 mg/dL >=50 L HDLC RATIO (test code = 6102324555) 7.2 <=4.5 H TRIG (test code = 8986018054) 214 mg/dL 30-170 H LDL CHOL (test code = 40621-7) 148 mg/dL <=160 VLDL (test code = 5735616547) 43 mg/dL 5-60 Lab Interpretation (test code = Abnormal 34288-0) [facility] [id number] 06:16:00 Test Item Value Reference Range Interpretation Comments TROPONIN I (test code = 0.003 ng/mL <=0.034 5433381315) BEHZAD (test code = BEHZAD) Reference (Normal) [...] biotin. Lab Interpretation Normal (test code = 27135-5) [facility] [id number] 06:13:00 Test Item Value Reference Range Interpretation Comments NT-proBNP (test code = 28 pg/mL <=125 4133042121) BEHZAD (test code = BEHZAD) Biotin has been reported to cause a negative bias, interpret results relative to patient's use of biotin. Lab Interpretation (test Normal code = 28526-3) [facility]OL[facility] (09532)2022-05-24 06:04:03 Test Item Value Reference Range Interpretation Comments NA (test code = 134 mmol/L 135-145 L 0257432444) K (test code = 3.8 mmol/L 3.5-5.0 1362834434) CL (test code = 101 mmol/L 98-108 6434384675) CO2 TOTAL (test code = 23 mmol/L 23-31 0813220422) AGAP (test code = 10 2-16 9828662758) BUN (test code = 15 mg/dL 7-23 1212974072) GLUCOSE (test code = 173 mg/dL 70-110 H 0847341829) CREATININE (test code = 0.85 mg/dL 0.50-1.04 8782524852) TOTAL BILI (test code = 0.7 mg/dL 0.1-1.9 8613752177) CALCIUM (test code = 8.8 mg/dL 8.6-10.6 8762296435) T PROTEIN (test code = 7.1 g/dL 6.3-8.2 6326592611) ALBUMIN (test code = 4.0 g/dL 3.5-5.0 3631753667) ALK PHOS (test code = 132 U/L 34-122 H 7935943792) ALTv (test code = 65 U/L 5-35 H 1742-6) AST(SGOT) (test code = 57 U/L 13-40 H 7095587633) eGFR (test code = 71.7 mL/min/1.73m2 3777984280) BEHZAD (test code = BEHZAD) Association of [...] tests). Lab Interpretation Abnormal (test code = 99115-6) [facility] 06:03:58 Test Item Value Reference Range Interpretation Comments LIPASE (test code = 6459983507) 59 U/L 0-220 Lab Interpretation (test code = Normal 74050-2) [facility] CenterACTIVATED PARTIAL THRMPLAS [id number] 05:59:40 Test Item Value Reference Range Interpretation Comments APTT Patient (test 26 See_Comment [Automat ed code = 3173-2) message] The system which generated this result transmitted reference range : 23 - 38 Seconds . The reference range was not used to interpr et this result as normal/abnormal . BEHZAD (test code = BEHZAD) The [facility] patient population mean normal value for aPTT is 30 seconds. Lab Interpretation Normal (test code = 78850-0) [facility] CenterPROTHROMBIN TIME / [id number] 05:57:19 Test Item Value Reference Range Interpretation [...] tions. Lab Interpretation (test Normal code = 16325-1) [facility] WITH [id number] 05:48:58 Test Item Value Reference Range Interpretation Comments WBC (test code = 9.02 See_Comment [Automated 6690-2) message] The sy stem which generated this result transmitted reference range : 4.30 - 11.10 10*3/?L. The reference range was not used to interpret this result as normal/abnormal . RBC (test code = 5.23 See_Comment [Automated 789-8) message] The sy stem [...] RDW-SD (test code = 43.1 fL 39.0-49.9 20261-6) RDW-CV (test code = 13.8 % 12.0-15.5 788-0) PLT (test code = 405 See_Comment H [Automated 777-3) message] The sy stem which generated this result transmitted reference range : 166 - 358 10*3/ ?L. The reference r benito was not used to interpret this result as normal/abnormal . MPV (test code = 8.7 fL 9.5-12.9 L 43118-2) NRBC/100 WBC (test 0.0 See_Comment [Automat ed code = 8085879525) message] The system which generated this result transmitted reference range : 0.0 - 10.0 /100 WBCs. The refer ence range was not u sed to interpret th is result as normal/abnormal . NRBC x10^3 (test code See_Comment [Auto mated = 9765408332) message] The s ystem which generated this result transmitted reference range : 10*3/?L. The reference range was not used to interpret this result as normal/abnormal . GRAN MAT (NEUT) % 71.9 % (test code = 770-8) IMM GRAN % (test code 0.30 % = 9822415419) LYMPH % (test code = 20.4 % 736-9) MONO % (test code = 4.0 % 5905-5) EOS % (test code = 2.8 % 713-8) BASO % (test code = 0.6 % 706-2) GRAN MAT x10^3(ANC) 6.49 10*3/uL 1.88-7.09 (test code = 7734072639) IMM GRAN x10^3 (test 0.03 10*3/uL 0.00-0.06 code = 0101030921) LYMPH x10^3 (test code 1.84 10*3/uL 1.32-3.29 = 731-0) MONO x10^3 (test code 0.36 10*3/uL 0.33-0.92 = 742-7) EOS x10^3 (test code = 0.25 10*3/uL 0.03-0.39 711-2) BASO x10^3 (test code 0.05 10*3/uL 0.01-0.07 = 704-7) Lab Interpretation Abnormal (test code = 40380-4) [facility] CenterMiscellaneous referral [id number] 15:05:00 Test Item Value Reference Interpretation Comments Range [facility] test CUEVAS 79 GMT name (test code = 2566) [facility] test see comment Neuro-Onc Expan ded Panel [...] implicated inmeningioma tu morigenesis. Germline (i.e. inherited) IS4rlwjqbmgv ar e associated with neurofibromatos is type [...] uish between germline and so matic alterations.Con pan operator follow-up germline testin g on a blood specimen inconj unction with genetic enrollment counselor ing if there is clinical eviden ceand/or family history suggest ing an underlying hereditary cancersyndrome. Currently, there are no known cl inically approved therapies thats pecifically target NF2 muta tions. REFERENCES1. cancer-beta.olson jonas.ac.uk/cosmic; Nucleic Acids R es. 2017 ;45(D1):D77 7-D783 (PMID 41066972)2. cbi [email or web address].org (Version 1.5.1) ; Cancer discov. 2012;2(5):401?4 ([id number]); Sci Signal. 201 3;6(269):pl1 (PMID 13050571) 3. Mayank BERRIOS, Abdoulaye Gaitan ,Paulie goddard O.D., Karyn Bush. ( Eds). WHOClassificati on of Tumours of the Central Ner vous System (Revised 4thedi tion). IARC: [place] 2016.4. Brain T umor Pathol. Jan 2016;33(4):237? 47 (PMID 37366969)5. [email or web address]. Nature communications. May 18 2017;8:39166 (P MID 22291559)7. NPJ Genom Med. 2017;2 (PMID 93779694)8. Int J Cancer. Jan 16 2001;94(2):218? 21 (PMID 16592369)9. Act a Neuropathol. Oct 2016;134(1) :155?8 (PMID 10320565)10. Na ture communications. Nov 05 2017;8(1):186 ( PMID 84150092)ADDITI ONAL INFORMATIONMicr oscopic examination was performed by [...] GLI2, GLI3, GNA11, GN AQ, GNAS, GPS2, H3F3A,XMES7W4W, UAEL9S4O, IDH1, IDH2, JAK2, KDM 5A, KDM5C,KDM6A, KLF4, KMT2B (ML L4), KMT2C (MLL3), KMT2D ( MLL2),KRAS, LDB1, LRP1B, LZTR1, M AP2K1, MDM2, MLH1, MSH2,MSH3 , MSH6, MYB, MYBL1, MYC, MYC N, NF1, NF2,NOTCH1, NOT CH2, NRAS, PARP1, PDGFRA, MSA2V0X ,PIK3CA, PIK3R1, PIK3R2, POLE, P OLR2A, POT1, PPM1D,VKBOM0R, PTCH1, PTCH2, PTEN, PTPN11, P TPRD, QKI,RAF1, [...] AGBL4, ATG7, BCAN, BEND2,BIR C5, BRAF, BTBD1, E71rwg64, C8orf 34, CLCN6, CLIP2,CXXC5, DD X31, DIP2C, EGFR, ELAVL3, ESR1, E TV6, EWSR1,FZB560G, RGP819D, FGFR1, FGFR3, FLI1, FO XR2, FXR1,FYCO1, GFI1, GFI1B, GL I1, GNAI1, JPX, DKJI3415,VRI070 643, MACF1, MAMLD1, MET, MK RN1, MMP16, MN1,MST1R, MYB, MYBL1, MYC, NAB2, NACC2, NA V1, NDRG1,NELFE, NFASC, NRF1, NT RK1, NTRK2, NTRK3, PCDHGA1, PCSK5, PDGFRA, PKD1, PRKCA, PT PRZ1, PVT1, QKI, RAF1,SUNI, RELA , XUT053, SEPT14, RSJ38P6, SLIT1, SRGAP3,HJ9OBG0, STAT6, TACC1, T ACC3, TFG, TPM3, UBE2J2, VCL,WHS C1, and YAP1.Mutation n omenclature is based on build GRCh37 (hg19). Fordetails abou t gene reference transcripts (Re fSeq accessionnumber s), specific targeted region s of each gene, andadditional i nformation about this test, seewww.[email or web address](Test ID NONCP). CLIN ICAL CORRELATIONSTes t results [...] based o n updated clinicalrelevan ce. See [email or web address](Test ID NONCP) for the most up to date list of genes i ncluded inthis test. Additiona l Information CLINICAL TRIALS Possible clinical trials of benef it for this patient can bef ound at the following sites :1) ClinicalTrials. gov:www.clinicalt rials.gov/ct2/s earch/advanced2) [facility]: [email or web address]/re search/clinical-t rials/3) [facility] [place]: <www.cancer.gov /clinicaltrials/s earch> REFERENCETRANSC RIPTSequence variant nomencl ature is based on the following R efSeqaccession number (build G RCh37 (hg19)):NF2 [id number]. Spec imen Tissue, Tumor Tissue ID [id number] Released By Katie Yu M.D. Laboratory NotesThis test was developed and its performance characteristics determined by [facility] in a manner consiste nt with CLIA requirements. T his test has not been cleared or approved by the U.S. Food and D rug Administration. Per[facility] [place] [address] BEHZAD (test SUMMIT STATION TEST ID: code = BEHZAD) NONCP - 79 GENE MUTATION ANALYSIS- RIGHT BRAIN [id number] (B9)DOS 08/19/2021 [facility] [id number] 15:05:00 Test Item Value Reference Interpretation Comments Range [facility] test SUMMIT STATION 79 GMT name (test code = 2566) [facility] test see comment Neuro-Onc Expan ded Panel [...] implicated inmeningioma tu morigenesis. Germline (i.e. inherited) MH2uigstlmet ar e associated with neurofibromatos is type [...] uish between germline and so matic alterations.Con pan operator follow-up germline testin g on a blood specimen inconj unction with genetic enrollment counselor ing if there is clinical eviden ceand/or family history suggest ing an underlying hereditary cancersyndrome. Currently, there are no known cl inically approved therapies thats pecifically target NF2 muta tions. REFERENCES1. cancer-beta.olson jonas.ac.uk/cosmic; Nucleic Acids R es. 2016;45(D1):D77 7-D783 (PMID 21895923)2. cbi oportal.org (Version 1.5.1) ; Cancer discov. 2012;2(5):401?4 ([id number]); Sci Signal. 201 3;6(269):pl1 (PMID 52565415) 3. Mayank BERRIOS, Abdoulaye Gaitan ,Paulie goddard O.D., Karyn Bush. ( Eds). WHOClassificati on of Tumours of the Central Ner vous System (Revised 4thedi tion). IARC: [place] 2016.4. Brain T umor Pathol. Jan 2016;33(4):237? 47 (PMID 29271008)5. [email or web address]. Nature communications. May 18 2017;8:94184 (P MID 69914441)7. NPJ Genom Med. 2017;2 (PMID 42537662)8. Int J Cancer. Jan 16 2001;94(2):218? 21 (PMID 07978427)9. Act a Neuropathol. Oct 2016;134(1) :155?8 (PMID 95391319)10. Na ture communications. Nov 05 2016;8(1):186 ( PMID 78494997)ADDITI ONAL INFORMATIONMicr oscopic examination was performed by [...] GLI2, GLI3, GNA11, GN AQ, GNAS, GPS2, H3F3A,TPBK7H2I, EVDE4X4S, IDH1, IDH2, JAK2, KDM 5A, KDM5C,KDM6A, KLF4, KMT2B (ML L4), KMT2C (MLL3), KMT2D ( MLL2),KRAS, LDB1, LRP1B, LZTR1, M AP2K1, MDM2, MLH1, MSH2,MSH3 , MSH6, MYB, MYBL1, MYC, MYC N, NF1, NF2,NOTCH1, NOT CH2, NRAS, PARP1, PDGFRA, JKQ0C9R ,PIK3CA, PIK3R1, PIK3R2, POLE, P OLR2A, POT1, PPM1D,DZPNF0Z, PTCH1, PTCH2, PTEN, PTPN11, P TPRD, QKI,RAF1, [...] AGBL4, ATG7, BCAN, BEND2,BIR C5, BRAF, BTBD1, O09oyw27, C8orf 34, CLCN6, CLIP2,CXXC5, DD X31, DIP2C, EGFR, ELAVL3, ESR1, E TV6, EWSR1,NKH174Y, ABX404H, FGFR1, FGFR3, FLI1, FO XR2, FXR1,FYCO1, GFI1, GFI1B, GL I1, GNAI1, JPX, OFXO7057,GAQ706 643, MACF1, MAMLD1, MET, MK RN1, MMP16, MN1,MST1R, MYB, MYBL1, MYC, NAB2, NACC2, NA V1, NDRG1,NELFE, NFASC, NRF1, NT RK1, NTRK2, NTRK3, PCDHGA1, PCSK5, PDGFRA, PKD1, PRKCA, PT PRZ1, PVT1, QKI, RAF1,SUNI, RELA , GWT955, SEPT14, ZNR68G7, SLIT1, SRGAP3,LG6OIC3, STAT6, TACC1, T ACC3, TFG, TPM3, UBE2J2, VCL,WHS C1, and YAP1.Mutation n omenclature is based on build GRCh37 (hg19). Fordetails abou t gene reference transcripts (Re fSeq accessionnumber s), specific targeted region s of each gene, andadditional i nformation about this test, seewww.[email or web address](Test ID NONCP). CLIN ICAL CORRELATIONSTes t results [...] based o n updated clinicalrelevan ce. See www.The Author [email or web address](Test ID NONCP) for the most up to date list of genes i ncluded inthis test. Additiona l Information CLINICAL TRIALS Possible clinical trials of benef it for this patient can bef ound at the following sites :1) ClinicalTrials. gov:www.clinicalt rials.gov/ct2/s earch/advanced2) [facility]: www.[email or web address]/re search/clinical-t rials/3) [facility] [place]: <www.cancer.gov /clinicaltrials/s earch> REFERENCETRANSC RIPTSequence variant nomencl ature is based on the following R efSeqaccession number (build G RCh37 (hg19)):NF2 [id number]. Spec imen Tissue, Tumor Tissue ID [id number] Released By Katie Yu M.D. Laboratory NotesThis test was developed and its performance characteristics determined by [facility] in a manner consiste nt with CLIA requirements. T his test has not been cleared or approved by the U.S. Food and D rug Administration. Per[facility] [place] [address] BEHZAD (test SUMMIT STATION TEST ID: code = BEHZAD) NONCP - 79 GENE MUTATION ANALYSIS- RIGHT BRAIN [id number] (B9)DOS 08/19/2021 [facility] [id number] 15:05:00 Test Item Value Reference Interpretation Comments Range [facility] test SUMMIT STATION 79 GMT name (test code = 2566) [facility] test see comment Neuro-Onc Expan ded Panel [...] implicated inmeningioma tu morigenesis. Germline (i.e. inherited) PJ6gelxnkmja ar e associated with neurofibromatos is type [...] uish between germline and so matic alterations.Con pan operator follow-up germline testin g on a blood specimen inconj unction with genetic enrollment counselor ing if there is clinical eviden ceand/or family history suggest ing an underlying hereditary cancersyndrome. Currently, there are no known cl inically approved therapies thats pecifically target NF2 muta tions. REFERENCES1. cancer-beta.olson jonas.ac.uk/cosmic; Nucleic Acids R es. 2017 ;45(D1):D77 7-D783 (PMID 70832427)2. cbi oportal.org (Version 1.5.1) ; Cancer discov. 2012;2(5):401?4 ([id number]); Sci Signal. 201 3;6(269):pl1 (PMID 95856888) 3. Mayank BERRIOS, Abdoulaye Gaitan ,Paulie goddard O.D., Karyn Bush. ( Eds). WHOClassificati on of Tumours of the Central Ner vous System (Revised 4thedi tion). IARC: [place] 2016.4. Brain T umor Pathol. Jan 2016;33(4):237? 47 (PMID 57195237)5. [email or web address] [email or web address]/6. Nature communications. May 18 2017;8:55556 (P MID 83003711)7. NPJ Genom Med. 2017;2 (PMID 83175467)8. Int J Cancer. Jan 16 2001;94(2):218? 21 (PMID 08204485)9. Act a Neuropathol. Oct 2016;134(1) :155?8 (PMID 07436114)10. Na ture communications. Nov 05 2016;8(1):186 ( PMID 13686882)ADDITI ONAL INFORMATIONMicr oscopic examination was performed by [...] GLI2, GLI3, GNA11, GN AQ, GNAS, GPS2, H3F3A,VTZR9U9Q, VICG9J5C, IDH1, IDH2, JAK2, KDM 5A, KDM5C,KDM6A, KLF4, KMT2B (ML L4), KMT2C (MLL3), KMT2D ( MLL2),KRAS, LDB1, LRP1B, LZTR1, M AP2K1, MDM2, MLH1, MSH2,MSH3 , MSH6, MYB, MYBL1, MYC, MYC N, NF1, NF2,NOTCH1, NOT CH2, NRAS, PARP1, PDGFRA, KAO6R7W ,PIK3CA, PIK3R1, PIK3R2, POLE, P OLR2A, POT1, PPM1D,MIGUG7F, PTCH1, PTCH2, PTEN, PTPN11, P TPRD, QKI,RAF1, [...] AGBL4, ATG7, BCAN, BEND2,BIR C5, BRAF, BTBD1, Y38yfl90, C8orf 34, CLCN6, CLIP2,CXXC5, DD X31, DIP2C, EGFR, ELAVL3, ESR1, E TV6, EWSR1,IZS800P, TQT108F, FGFR1, FGFR3, FLI1, FO XR2, FXR1,FYCO1, GFI1, GFI1B, GL I1, GNAI1, JPX, QPYV7599,HRL136 643, MACF1, MAMLD1, MET, MK RN1, MMP16, MN1,MST1R, MYB, MYBL1, MYC, NAB2, NACC2, NA V1, NDRG1,NELFE, NFASC, NRF1, NT RK1, NTRK2, NTRK3, PCDHGA1, PCSK5, PDGFRA, PKD1, PRKCA, PT PRZ1, PVT1, QKI, RAF1,SUNI, RELA , EZM549, SEPT14, CTO08S6, SLIT1, SRGAP3,IY4ZZN1, STAT6, TACC1, T ACC3, TFG, TPM3, UBE2J2, VCL,WHS C1, and YAP1.Mutation n omenclature is based on build GRCh37 (hg19). Fordetails abou t gene reference transcripts (Re fSeq accessionnumber s), specific targeted region s of each gene, andadditional i nformation about this test, seewww.[email or web address](Test ID NONCP). CLIN ICAL CORRELATIONSTes t results [...] based o n updated clinicalrelevan ce. See www.The Author [email or web address] [email or web address](Test ID NONCP) for the most up to date list of genes i ncluded inthis test. Additiona l Information CLINICAL TRIALS Possible clinical trials of benef it for this patient can bef ound at the following sites :1) ClinicalTrials. gov:www.clinicalt rials.gov/ct2/s earch/advanced2) [facility]: www.[email or web address]/re search/clinical-t rials/3) [facility] [place]: <www.cancer.gov /clinicaltrials/s earch> REFERENCETRANSC RIPTSequence variant nomencl ature is based on the following R efSeqaccession number (build G RCh37 (hg19)):NF2 [id number]. Spec imen Tissue, Tumor Tissue ID [id number] Released By Katie Yu M.D. Laboratory NotesThis test was developed and its performance characteristics [facility] in a manner consiste nt with CLIA requirements. T his test has not been cleared or approved by the U.S. Food and D rug Administration. [facility] [place] [address] BEHZAD (test SUMMIT STATION TEST ID: code = BEHZAD) NONCP - 79 GENE MUTATION ANALYSIS- RIGHT BRAIN [id number] (B9)DOS 08/19/2021 [facility] [id number] 15:05:00 Test Item Value Reference Interpretation Comments Range [facility] test SUMMIT STATION 79 GMT name (test code = 2566) [facility] test see comment Neuro-Onc Expan ded Panel [...] implicated inmeningioma tu morigenesis. Germline (i.e. inherited) SU0rxvrfbffi ar e associated with neurofibromatos is type [...] uish between germline and so matic alterations.Con pan operator follow-up germline testin g on a blood specimen inconj unction with genetic enrollment counselor ing if there is clinical eviden ceand/or family history suggest ing an underlying hereditary cancersyndrome. Currently, there are no known cl inically approved therapies thats pecifically target NF2 muta tions. REFERENCES1. cancer-beta.olson jonas.ac.uk/cosmic; Nucleic Acids R es. 2017 ;45(D1):D77 7-D783 (PMID 45168843)2. [email or web address] [email or web address] (Version 1.5.1) ; Cancer discov. 2012;2(5):401?4 ([id number]); Sci Signal. 201 3;6(269):pl1 (PMID [id number]) 3. Mayank BERRIOS, Abdoulaye Gaitan ,Paulie goddard O.D., Karyn Bush. ( Eds). WHOClassificati on of Tumours of the Central Ner vous System (Revised 4thedi tion). IARC: Moody 2016.4. Brain T umor Pathol. Jan 2016;33(4):237? 47 (PMID [id number])5. [email or web address]. Nature communications. May 18 2017;8:32742 (P MID [id number])7. NPJ Genom Med. 2017;2 (PMID 74709650)8. Int J Cancer. Jan 16 2001;94(2):218? 21 (PMID [id number])9. Act a Neuropathol. Oct 2016;134(1) :155?8 (PMID [id number])10. Na ture communications. Nov 05 2016;8(1):186 ( PMID [id number])ADDITI ONAL INFORMATIONMicr oscopic examination was performed by [...] GLI2, GLI3, GNA11, GN AQ, GNAS, GPS2, H3F3A,HWWF4G4I, NDAQ0H8E, IDH1, IDH2, JAK2, KDM 5A, KDM5C,KDM6A, KLF4, KMT2B (ML L4), KMT2C (MLL3), KMT2D ( MLL2),KRAS, LDB1, LRP1B, LZTR1, M AP2K1, MDM2, MLH1, MSH2,MSH3 , MSH6, MYB, MYBL1, MYC, MYC N, NF1, NF2,NOTCH1, NOT CH2, NRAS, PARP1, PDGFRA, CBV9I2N ,PIK3CA, PIK3R1, PIK3R2, POLE, P OLR2A, POT1, PPM1D,ZEBIQ8G, PTCH1, PTCH2, PTEN, PTPN11, P TPRD, QKI,RAF1, [...] AGBL4, ATG7, BCAN, BEND2,BIR C5, BRAF, BTBD1, K68wyo45, C8orf 34, CLCN6, CLIP2,CXXC5, DD X31, DIP2C, EGFR, ELAVL3, ESR1, E TV6, EWSR1,LPT991Y, CJD837E, FGFR1, FGFR3, FLI1, FO XR2, FXR1,FYCO1, GFI1, GFI1B, GL I1, GNAI1, JPX, FIBN4370,WAV141 643, MACF1, MAMLD1, MET, MK RN1, MMP16, MN1,MST1R, MYB, MYBL1, MYC, NAB2, NACC2, NA V1, NDRG1,NELFE, NFASC, NRF1, NT RK1, NTRK2, NTRK3, PCDHGA1, PCSK5, PDGFRA, PKD1, PRKCA, PT PRZ1, PVT1, QKI, RAF1,SUNI, RELA , NCV198, SEPT14, JUM48Q7, SLIT1, SRGAP3,GK2MBY3, STAT6, TACC1, T ACC3, TFG, TPM3, UBE2J2, VCL,WHS C1, and YAP1.Mutation n omenclature is based on build GRCh37 (hg19). Fordetails abou t gene reference transcripts (Re fSeq accessionnumber s), specific targeted region s of each gene, andadditional i nformation about this test, [email or web address](Test ID NONCP). CLIN ICAL CORRELATIONSTes t results [...] based o n updated clinicalrelevan ce. See [email or web address] [email or web address](Test ID NONCP) for the most up to date list of genes i ncluded inthis test. Additiona l Information CLINICAL TRIALS Possible clinical trials of benef it for this patient can bef ound at the following sites :1) ClinicalTrials. gov:www.clinicalt rials.gov/ct2/s earch/advanced2) [facility]: www.breckenridge.[facility]/re search/clinical-t rials/3) [facility]: <www.cancer.gov /clinicaltrials/s earch> REFERENCETRANSC RIPTSequence variant nomencl ature is based on the following R efSeqaccession number (build G RCh37 (hg19)):[id number]. Spec imen Tissue, Tumor Tissue ID [id number] Released By Katie Yu M.D. Laboratory NotesThis test was developed and its performance characteristics determined by Jed Polk in a manner consiste nt with CLIA requirements. T his test has not been cleared or approved by the U.S. Food and D rug Administration. Performing [facility] [place] [place] [address] BEHZAD (test [place] TEST ID: code = BEHZAD) NONCP - 79 GENE MUTATION ANALYSIS- RIGHT BRAIN [id number] (B9)DOS 08/19/2021 [facility] [id number] 22:24:00 Test Item Value Reference Range Interpretation Comments POC glucose (test code 125 mg/dL 65-99 H Opera tor Name: = 76940-8) John Phan ID : [id number] able: [facility] Notified associate juvenile court judge Interpretation Abnormal (test code = 69194-0) [facility] [id number] 22:24:00 Test Item Value Reference Range Interpretation Comments POC glucose (test code 125 mg/dL 65-99 H Opera tor Name: = 32586-5) John Phan ID : [id number] able: TM Notified associate juvenile court judge Interpretation Abnormal (test code = 59783-9) [facility] [id number] 22:24:00 Test Item Value Reference Range Interpretation Comments POC glucose (test code 125 mg/dL 65-99 H Opera tor Name: = 33205-7) John CervantesClydee ID : [id number] able: [facility] Notified associate juvenile court judge Interpretation Abnormal (test code = 92044-3) [facility] [id number] 22:24:00 Test Item Value Reference Range Interpretation Comments POC glucose (test code 125 mg/dL 65-99 H Opera tor Name: = 74244-4) John Holloway Frede ID : [id number] able: [facility] Notified associate juvenile court judge Interpretation Abnormal (test code = 49558-3) [place] [address] [id number] 14:47:26 Test Item Value Reference Range Interpretation [...] of 24-AUG-2021 00:35,-No significant change was found- [place] [address] [id number] 14:47:26 Test Item Value Reference Range Interpretation [...] of 24-AUG-2021 00:35,-No significant change was found- [address]2022-06-05 14:47:26 Test Item Value Reference Range [...] of 24-AUG-2021 00:35,-No significant change was found- [address]2022-06-05 14:47:26 Test Item Value Reference Range [...] of 24-AUG-2021 00:35,-No significant change was found- [facility] minute walk w/ pulse [id number] 16:54:41 Test Item Value Reference Range Interpretation [...] meters (test code = 40 m 7620) [facility]/ pulse [id number] 16:54:41 Test Item Value Reference Range Interpretation [...] meters (test code = 40 m 7620) [facility] [id number] 16:54:41 Test Item Value Reference Range Interpretation [...] meters (test code = 40 m 7620) [facility] w/ pulse [id number] 16:54:41 Test Item Value Reference Range Interpretation [...] meters (test code = 40 m 7620) [facility] RNA [Presence] in Respiratory specimen by FELIPA with probe [id number] 23:48:49 Test Item Value Reference Range Interpretation Comments SARS-CoV-2 (COVID-19) RNA Not detected [Presence] in Respiratory specimen by FELIPA with probe detection (test code = 18392-0) Whether patient is employed in a Unknown healthcare setting (test code = 85029-5) Whether the patient has symptoms Unknown related to condition of interest (test code = 11320-6) Whether the patient was Unknown hospitalized for condition of interest (test code = 67871-4) Whether the patient was admitted Unknown to intensive care unit (ICU) for condition of interest (test code = 14605-5) Whether patient resides in a Unknown congregate care setting (test code = 45767-5) status (test code = Unknown 81870-6) Date and time of symptom onset Unknown (test code = 54328-8) [facility] [id number] 20:53:10 Test Item Value Reference Range Interpretation Comments Case number (test code = [id number]) Surgical pathology See link below for report (test code = PDF Lab Report 2256) Result status (test code This is Final Report = [id number]) for [id number] [facility] [id number] 20:53:10 Test Item Value Reference Range Interpretation Comments Case number (test code = [id number]) Surgical pathology See link below for report (test code = PDF Lab Report 2255) Result status (test code This is Final Report = [id number]) for [id number] [facility] [id number] 20:53:10 Test Item Value Reference Range Interpretation Comments Case number (test code = [id number]) Surgical pathology See link below for report (test code = PDF Lab Report 2255) Result status (test code This is Final Report = [id number]) for [id number] [facility] [id number] 20:53:10 Test Item Value Reference Range Interpretation Comments Case number (test code = [id number]) Surgical pathology See link below for report (test code = PDF Lab Report 2255) Result status (test code This is Final Report = [id number]) for [id number] [address]-2 (COVID-19) RNA [Presence] in Respiratory specimen by FELIPA with probe [id number] 20:28:44 Test Item Value Reference Range Interpretation Comments SARS-CoV-2 (COVID-19) RNA Not detected [Presence] in Respiratory specimen by FELIPA with probe detection (test code = 87994-8) Whether patient is employed in a Unknown healthcare setting (test code = 62064-6) Whether the patient has symptoms Unknown related to condition of interest (test code = 28129-7) Whether the patient was Unknown hospitalized for condition of interest (test code = 12915-7) Whether the patient was admitted Unknown to intensive care unit (ICU) for condition of interest (test code = 33344-5) Whether patient resides in a Unknown congregate care setting (test code = 60057-5) status (test code = Unknown 26242-3) Date and time of symptom onset Unknown (test code = 26750-0) [facility] [id number] 07:40:00 Test Item Value Reference Range Interpretation Comments Urine culture No growth Specimen isolate (test after 24 InformationSpe cimen code = 18667-5) hours Source: Urin eSpecimen Site: [facility] [id number] 07:40:00 Test Item Value Reference Range Interpretation Comments Urine culture No growth Specimen isolate (test after 24 InformationSpe cimen code = 23469-6) hours Source: Urin eSpecimen Site: [facility] [id number] 07:40:00 Test Item Value Reference Range Interpretation Comments Urine culture No growth Specimen isolate (test after 24 InformationSpe cimen code = 29658-6) hours Source: Urin eSpecimen Site: [facility] [id number] 07:40:00 Test Item Value Reference Range Interpretation Comments Urine culture No growth Specimen isolate (test after 24 InformationSpe cimen code = 11400-4) hours Source: [facility]Specimen [facility] [Presence] in Respiratory specimen by FELIPA with probe [id number] 20:09:14 Test Item Value Reference Range Interpretation Comments SARS-CoV-2 (COVID-19) RNA Not detected [Presence] in Respiratory specimen by FELIPA with probe detection (test code = 86279-1) Whether patient is employed in a Unknown healthcare setting (test code = 95986-0) Whether the patient has symptoms Unknown related to condition of interest (test code = 08994-2) Whether the patient was Unknown hospitalized for condition of interest (test code = 09821-3) Whether the patient was admitted Unknown to intensive care unit (ICU) for condition of interest (test code = 25311-4) Whether patient resides in a Unknown congregate care setting (test code = 79731-2) status (test code = Unknown 81867-0) Date and time of symptom onset Unknown (test code = 70916-4) [facility] , [id number] 02:52:00 Test Item Value Reference Range Interpretation Comments test urine, POC (test Negative code = 6841086) Internal QC (test code = 257) QC acceptable [facility] , [id number] 02:52:00 Test Item Value Reference Range Interpretation Comments test urine, POC (test Negative code = 8388195) Internal QC (test code = 257) QC acceptable [facility] , [id number] 02:52:00 Test Item Value Reference Range Interpretation Comments test urine, POC (test Negative code = 4325560) Internal QC (test code = 257) QC acceptable [facility] , [id number] 02:52:00 Test Item Value Reference Range Interpretation Comments test urine, POC (test Negative code = 8259102) Internal QC (test code = 257) QC acceptable Religious MjiizflfJESV-EbG-3 (COVID-19) RNA [Presence] in Respiratory specimen by FELIPA with probe [id number] 00:32:04 Test Item Value Reference Range Interpretation Comments SARS-CoV-2 (COVID-19) RNA Not detected [Presence] in Respiratory specimen by FELIPA with probe detection (test code = 83969-1) Whether patient is employed in a Unknown healthcare setting (test code = 82726-6) Whether the patient has symptoms Unknown related to condition of interest (test code = 34684-9) Whether the patient was Unknown hospitalized for condition of interest (test code = 53965-1) Whether the patient was admitted Unknown to intensive care unit (ICU) for condition of interest (test code = 04528-7) Whether patient resides in a Unknown congregate care setting (test code = 86177-8) status (test code = Unknown 77027-5) Date and time of symptom onset Unknown (test code = 81686-8) [facility], [id number] 09:03:00 FINAL REPORT PROCEDURE: THYROID SCAN AND UPTAKES CPT CODE: 78688 INDICATION: Hyperthyroidism PROTOCOL: 0.238 mCi of I-123 [...] MDReport Verified Date/Time: 11/09/2019 09:03:02 Reading Location: [address] Reading Room "
[2023-02-28 09:17] LABS: Absolute Lymphocytes (CBC) 2.5 K/uL (0.7-4.9); Hematocrit 44.1 % (36.0-45.0); Lymphocytes % 24.3 % (15.3-44.8); MCV 82.2 fL (80-100); Platelets 436 thou/uL (152-406); RBC Red Blood Cell Count 5.36 M/uL (3.86-4.86)
[2023-02-28 09:19] LABS: Protime INR 1.08
[2023-02-28] MEDS ORDERED: ASPIRIN 81 MG CHEWABLE TABLET ONE (09:29)
[2023-02-28 09:50] LABS: ALT/SGPT 44 U/L (13-56); AST/SGOT 19 U/L (15-37); Albumin 3.2 g/dL (3.4-5.0); Alkaline Phosphatase 144 U/L (45-117); BUN Blood Urea Nitrogen 11 mg/dL (7-18); Bicarbonate 27 mEq/L (21-32); Bilirubin Direct 0.1 mg/dL (0-0.2); Bilirubin Indirect, Calculated 0.2 mg/dL (0.2-0.8); Bilirubin Total 0.3 mg/dL (0.2-1.0); Glomerular Filtration Rate 94 ml/min (=/>90); Glucose Level 158 mg/dL (74-106); Magnesium 1.8 mg/dL (1.6-2.4); NT PRO-BNP 51 pg/mL (<125); Protein, Total 7.3 g/dL (6.4-8.2); Sodium Level 137 mEq/L (136-145); Troponin High Sensitivity 34.3 pg/mL (<58.9)
[2023-02-28 09:53] LABS: Thyroid Stimulating Hormone < 0.005 uIU/mL (0.358-3.740)
--- NOTE | 2023-02-28 10:03 | RAD REPORT ---
EXAM DESCRIPTION: RAD - Chest Single View - 02/28/2023 9:12 am CLINICAL HISTORY: CHEST PAIN Chest pain. COMPARISON: Chest Single View dated 04/21/2022; Chest Single View dated 08/03/2021; Chest Single View d ated 06/20/2021; Chest Single View dated 05/14/2021 FINDINGS: Portable technique limits examination quality. The lungs are grossly clear. The heart is normal in size. No displaced fractures.Right-sided shunt tu kristin is noted. IMPRESSION: No acute intrathoracic process suspected.
[2023-02-28] MEDS ORDERED: METOPROLOL TAR 50 MG TAB ONE (10:12)
[2023-02-28 10:43] LABS: SARS-COV-2 RT PCR NEGATIVE (NEGATIVE)
--- NOTE | 2023-02-28 10:57 | EDPHYS ---
Physician Documentation [facility] Name: Skye Song Age: 48 yrs Sex: Female : 1975 Arrival Date: 02/28/2023 Time: 08:35 Bed 8 Private MD: ED Physician Alhaji Jorge HPI: 02/28 09:05 This 48 yrs old Female presents to ER via Ambulatory with complaints of Chest Pain, snw Palpitations, Low BP. 09:05 The patient presents with a history of irregular heart beat. Context: The symptoms snw occur at rest. Onset: The symptoms/episode began/occurred last night. Duration: The patient or guardian reports multiple episodes. Modifying factors: The symptoms are aggravated by nothing. The symptoms are alleviated by nothing. Severity of symptoms: At their worst the symptoms were moderate. The patient has experienced similar episodes in the past, multiple times. It is unknown whether or not the patient has recently seen a physician. pt states she cannot get her heart rate down or her blood pressure up. 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 - Social history:: Smoking status: Patient denies any tobacco usage or history of. ROS: 09:05 Eyes: Negative for injury, pain, redness, and discharge, ENT: Negative for injury, snw pain, and discharge, Neck: Negative for injury, pain, and swelling, 09:05 Respiratory: Negative for shortness of breath, cough, wheezing, and pleuritic chest pain, 09:05 Back: Negative for injury and pain, : Negative for injury, bleeding, discharge, and swelling, MS/Extremity: Negative for injury and deformity, Skin: Negative for injury, rash, and discoloration, Neuro: Negative for headache, weakness, numbness, tingling, and seizure, Psych: Negative for depression, anxiety, suicide ideation, homicidal ideation, and hallucinations, 09:05 Constitutional: Positive for body aches, malaise, 09:05 Cardiovascular: Positive for chest pain, palpitations, 09:05 Abdomen/GI: Positive for nausea, Exam: 11:00 Head/Face: Normocephalic, atraumatic. Eyes: Pupils equal round and reactive to light, snw extra-ocular motions intact. Lids and lashes normal. Conjunctiva and sclera are non-icteric and not injected. Cornea within normal limits. Periorbital areas with no swelling, redness, or edema. ENT: Nares patent. No nasal discharge, no septal abnormalities noted. Tympanic membranes are normal and external auditory canals are clear. Oropharynx with no redness, swelling, or masses, exudates, or evidence of obstruction, uvula midline. Mucous membranes moist. Neck: Trachea midline, no thyromegaly or masses palpated, and no cervical lymphadenopathy. Supple, full range of motion without nuchal rigidity, or vertebral point tenderness. No Meningismus. Chest/axilla: Normal chest wall appearance and motion. Nontender with no deformity. No lesions are appreciated. 11:00 Abdomen/GI: Soft, non-tender, with normal bowel sounds. No distension or tympany. No guarding or rebound. No evidence of tenderness throughout. 11:00 Back: No spinal tenderness. No costovertebral tenderness. Full range of motion. Skin: Warm, dry with normal turgor. Normal color with no rashes, no lesions, and no evidence of cellulitis. MS/ Extremity: Pulses equal, no cyanosis. Neurovascular intact. Full, normal range of motion. Neuro: Awake and alert, GCS 15, oriented to person, place, time, and situation. Cranial nerves II-XII grossly intact. Motor strength 5/5 in all extremities. Sensory grossly intact. Cerebellar exam normal. Normal gait. 11:00 Constitutional: The patient appears alert, awake, frail, obese, 11:00 Cardiovascular: Rate: tachycardic, Rhythm: regular, Pulses: no pulse deficits are appreciated, Heart sounds: normal, 11:00 Respiratory: the patient does not display signs of respiratory distress, Respirations: shallow respirations, tachypnea, that is moderate, Breath sounds: are clear throughout, 11:00 Psych: Behavior/mood is pleasant, cooperative, anxious, Affect is animated, Vital Signs: 08:56 BP 102 / 65; Pulse 110; Resp 19; Temp 98.2(O); Pulse Ox 98% on R/A; Weight 104.33 kg; hb Height 5 ft. 4 in. ; Pain 8/10; 09:36 BP 102 / 58; Pulse 90; Resp 18; Pulse Ox 97% on R/A; iw 09:50 BP 118 / 65; Pulse 83; Resp 15; Pulse Ox 93% ; jl7 08:56 Body Mass Index 39.48 (104.33 kg, 162.56 cm) hb 08:56 Pain Scale: Adult hb MDM: 08:57 Patient medically screened. snw 09:07 AMANDA Risk Score: 1 - ASA use in past 7 days, 1 - Recent [<24 hrs] Severe Angina, Total snw Score = 2. Differential diagnosis: arrythmia, stress disorder. Data reviewed: vital signs, nurses notes. 02/28 08:54 Order name: Basic Metabolic Panel; Complete Time: 09:54 snw 02/28 08:54 Order name: CBC with Diff; Complete Time: 09:23 snw 02/28 08:54 Order name: LFT's; Complete Time: 09:54 snw 02/28 08:54 Order name: Magnesium; Complete Time: 09:54 snw 02/28 08:54 Order name: NT PRO-BNP; Complete Time: 09:54 snw 02/28 08:54 Order name: PT-INR; Complete Time: 09:23 snw 02/28 08:54 Order name: Troponin HS; Complete Time: 09:54 snw 02/28 08:54 Order name: TSH; Complete Time: 09:54 snw 02/28 08:55 Order name: COVID-19/FLU A+B; Complete Time: 10:44 snw 02/28 08:54 Order name: XRAY Chest (1 view); Complete Time: 10:04 snw 02/28 08:54 Order name: EKG; Complete Time: 08:55 snw 02/28 08:54 Order name: Cardiac monitoring; Complete Time: 08:55 snw 02/28 08:54 Order name: EKG - Nurse/Tech; Complete Time: 08:55 snw 02/28 08:54 Order name: IV Saline Lock; Complete Time: 09:14 snw 02/28 08:54 Order name: Labs collected and sent; Complete Time: 09:14 snw 02/28 08:54 Order name: O2 Per Protocol; Complete Time: 08:55 snw 02/28 08:54 Order name: O2 Sat Monitoring; Complete Time: 08:55 snw EC:07 Rate is 96 beats/min. Rhythm is regular. QRS [place] is Normal. [place] interval is normal. QRS snw interval is normal. QT interval is normal. No Q waves. Clinical impression: Normal ECG. Administered Medications: 09:36 Drug: Aspirin PO Chewable Tablet 324 mg PO once; 81 mg tablets x 4 Route: PO; iw 10:00 Follow up: Response: No adverse reaction iw 10:09 Drug: Metoprolol PO 50 mg PO once Route: PO; iw 12:00 Follow up: Response: No adverse reaction iw 11:59 Drug: Potassium PO Effervescent Tablet 50 mEq PO once; dissolve in 4 ounces of water or iw juice Route: PO; 12:03 Follow up: Response: No adverse reaction iw Disposition: 12:12 I was immediately available on-site in the Emergency Department for consultation in the ms3 care of the patient. Disposition Summary: 02/28/23 10:56 Discharge Ordered Notes: Location: Home snw Condition: Stable snw Diagnosis - hyperthyroid state snw - Hypokalemia snw Followup: snw - With: Emergency Department - When: As needed - Reason: Worsening of condition Followup: snw - With: Private Physician - When: Tomorrow - Reason: Recheck today's complaints, Continuance of care, Re-evaluation by your physician Discharge Instructions: - Discharge Summary Sheet snw - Potassium Content of Foods snw - Hyperthyroidism snw - Palpitations snw - Hypokalemia snw Forms: - Work release form snw - Medication Reconciliation Form snw - Thank You Letter snw - Antibiotic Education snw - Prescription Opioid Use snw - Patient Portal Instructions snw - Leadership Thank You Letter snw - Family Work Release Signatures: Dispatcher [employer] Susan York FNP-Xuan SECURITY DOOR INSTALLER-Csnw Hollie Marks RN RN iw Pat Landon RN RN Alhaji Jorge, DO ms3
--- NOTE | 2023-02-28 10:57 | ER ---
Nurse's Notes [facility] Name: Skye Song Age: 48 yrs Sex: Female : 1975 Arrival Date: 02/28/2023 Time: 08:35 Bed 8 Private MD: Diagnosis: hyperthyroid state;Hypokalemia Presentation: 02/28 08:56 Chief complaint: Chest pain, palpitations, malaise, headache, and body aches x 2 days. hb Coronavirus screen: Client presents with at least one sign or symptom that may indicate coronavirus-19. Provider contacted for isolation considerations. Ebola Screen: No symptoms or risks identified at this time. Initial Sepsis Screen: Does the patient meet any 2 criteria? No. Patient's initial sepsis screen is negative. Does the patient have a suspected source of infection? No. Patient's initial sepsis screen is negative. Risk Assessment: Do you want to hurt yourself or someone else? Patient reports no desire to harm self or others. Onset of symptoms was February 27, 2023. 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 - Social history:: Smoking status: Patient denies any tobacco usage or history of. Screenin:10 [facility] ED Fall Risk Assessment (Adult) Score/Fall Risk Level 0 - 2 = Low Risk. Abuse iw screen: Denies threats or abuse. Denies injuries from another. Nutritional screening: No deficits noted. Tuberculosis screening: No symptoms or risk factors identified. Assessment: 09:09 General: Appears in no apparent distress. Behavior is calm, cooperative. Pain: iw Complains of pain in head and chest Pain does not radiate. Pain began Is continuous. Neuro: Level of Consciousness is awake, alert, obeys commands, Oriented to person, place, time, situation, Moves all extremities. Full function. Cardiovascular: Reports chest pain, Patient's skin is warm and dry. Pulses are all present. Respiratory: Airway is patent Respiratory effort is even, unlabored, Respiratory pattern is regular, symmetrical. 09:37 Reassessment: Patient appears in no apparent distress at this time. Patient and/or iw family updated on plan of care and expected duration. Pain level reassessed. Patient is alert, oriented x 3, equal unlabored respirations, skin warm/dry/pink. Vital Signs: 08:56 BP 102 / 65; Pulse 110; Resp 19; Temp 98.2(O); Pulse Ox 98% on R/A; Weight 104.33 kg; hb Height 5 ft. 4 in. ; Pain 8/10; 09:36 BP 102 / 58; Pulse 90; Resp 18; Pulse Ox 97% on R/A; iw 09:50 BP 118 / 65; Pulse 83; Resp 15; Pulse Ox 93% ; jl7 08:56 Body Mass Index 39.48 (104.33 kg, 162.56 cm) hb 08:56 Pain Scale: Adult hb ED Course: 08:37 Patient arrived in ED. rg4 08:40 Alhaji Jorge DO is Attending Physician. ms3 08:54 Susan Araiza FNP-C is PHCP. snw 08:54 Susan Araiza FNP-C is PHCP. snw 08:56 Hollie Marks, RN is Primary Nurse. iw 08:57 Triage completed. hb 08:58 Arm band placed on. hb 09:06 Initial lab(s) drawn, by me, sent to lab. Inserted saline lock: 22 gauge in right iw antecubital area, using aseptic technique. Blood collected. 09:10 Patient has correct armband on for positive identification. Client placed on continuous iw cardiac and pulse oximetry monitoring. NIBP monitoring applied. 09:13 XRAY Chest (1 view) In Process Unspecified. EDMS Administered Medications: 09:36 Drug: Aspirin PO Chewable Tablet 324 mg PO once; 81 mg tablets x 4 Route: PO; iw 10:00 Follow up: Response: No adverse reaction iw 10:09 Drug: Metoprolol PO 50 mg PO once Route: PO; iw 12:00 Follow up: Response: No adverse reaction iw 11:59 Drug: Potassium PO Effervescent Tablet 50 mEq PO once; dissolve in 4 ounces of water or iw juice Route: PO; 12:03 Follow up: Response: No adverse reaction iw Medication: 09:10 VIS not applicable for this client. iw Outcome: 10:56 Discharge ordered by MD. contreras 12:23 Patient left the ED. iw Signatures: Dispatcher [employer] EDMS Susan Araiza FNP-C STRIP CATCHER-Csnw Hollie Marks, RN RN iw Pat Landon RN RN Isaura Zurita rg4 Andre Bailon RN RN jl7 Alhaji Jorge, DO ms3
[2023-02-28] MEDS ORDERED: POTASSIUM 25 MEQ EFFERV TAB ONE (12:05)
[2023-02-28 12:41] VITALS: TEMP 98.2
[2023-02-28 12:45] VITALS: BP 118/65; O2SAT 93
--- NOTE | 2023-03-03 15:29 | EKG ---
Test Date: 2023-02-28 Test Time: 08:52:40 Barrel Rifler Button: HB MEASUREMENT RESULTS: Intervals: Rate: 96 WA: 164 QRSD: 84 QT: 340 QTc: 429 [place]: P: 34 WA: 164 QRS: 15 T: 50 INTERPRETIVE STATEMENTS: Normal sinus rhythm Normal ECG Compared to ECG 12/13/2012 09:15:45 Myocardial infarct finding no longer present Electronically Signed On 03-03-23 15:16:14 ANIMAL TECH by Emmanuel Durant
== END 2023-02-28 12:23 | disposition home or self-care (01) ==
LOC: ER 08:35
DX: E87.6 Hypokalemia (principal); E05.90 Thyrotoxicosis, unspecified without thyrotoxic crisis or storm; Z11.52 Encounter for screening for COVID-19
CPT/HCPCS: 93005; 85025; 80048; 36415; 83735; 85610; 80076; 84443; 84484; 83880; 0240U; 71045; 99284

== ENCOUNTER → 2023-05-05 | Emergency (ER) | payer OTHER ==
[~2023-05-05] MED LIST: DIPHENHYDRAMINE 50 MG/ML VIAL ONE; KETOROLAC 30 MG/ML INJ ONE; METOCLOPRAMIDE 10 MG/2mL INJ ONE
--- NOTE | 2023-05-06 00:07 | EDPHYS ---
Physician Documentation [facility] Name: Skye Song Age: 48 yrs Sex: Female : 1975 Arrival Date: 05/05/2023 Time: 22:31 Bed 5 Private MD: ED Physician Matt Persaud HPI: 05/06 00:29 This 48 yrs old Female presents to ER via Ambulatory with complaints of KNOT ON EAR rt NEAR SHUNT. 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 The patient reports of burning sensation in her body. Denies other acute complaints at this time, symptoms are moderate severity, no other aggravating or elevating factors.. 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: 05/05 22:42 LMP 04/28/2023, unknown lg3 Historical: - Allergies: 22:42 Iodine; lg3 22:42 Naproxen; lg3 22:42 tramadol; lg3 - Home Meds: 22:42 levetiracetam 500 mg oral tablet three times a day [Active]; pregabalin 75 mg Oral lg3 capsule daily [Active]; promethazine 25 mg Oral tablet [Active]; ondansetron HCl 4 mg Oral tablet [Active]; benzonatate 100 mg oral capsule [Active]; diltiazem HCl 30 mg Oral tablet 3 times per day [Active]; fenofibrate 54 mg oral tablet daily [Active]; meclizine 25 mg Oral tablet [Active]; Imitrex 50 mg Oral tablet [Active]; sertraline 100 mg oral tablet daily [Active]; hydrochlorothiazide 25 mg Oral tablet daily [Active]; methocarbamol 500 mg Oral tablet [Active]; - PMHx: 22:42 Anxiety; BRAIN TUMOR; graves disease; Hydrocephalus; Migraines; Seizures; lg3 - PSHx: 22:42 Appendectomy; Brain sx; Cholecystectomy; eye sx; 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 Flu vaccine is not up to date. - Social history:: Smoking status: Patient denies any tobacco usage or history of. Patient/guardian denies using alcohol, street drugs. - Family history:: not pertinent. ROS: 05/06 00:27 Constitutional: Negative for fever, chills, and weight loss, Eyes: Negative for injury, rt pain, redness, and discharge, Cardiovascular: Negative for chest pain, palpitations, and edema, Respiratory: Negative for shortness of breath, cough, wheezing, and pleuritic chest pain, Abdomen/GI: Negative for abdominal pain, nausea, vomiting, diarrhea, and constipation, Neuro: Positive for headache, Negative for altered mental status, Exam: 00:27 Constitutional: This is a well developed, well nourished patient who is awake, alert, rt and in no acute distress. Chest/axilla: Normal chest wall appearance and motion. Nontender with no deformity. No lesions are appreciated. Cardiovascular: Regular rate and rhythm with a normal S1 and S2. No gallops, murmurs, or rubs. Normal PMI, no JVD. No pulse deficits. Respiratory: Lungs have equal breath sounds bilaterally, clear to auscultation and percussion. No rales, rhonchi or wheezes noted. No increased work of breathing, no retractions or nasal flaring. Abdomen/GI: Soft, non-tender, with normal bowel sounds. No distension or tympany. No guarding or rebound. No evidence of tenderness throughout. Skin: Warm, dry with normal turgor. Normal color with no rashes, no lesions, and no evidence of cellulitis. MS/ Extremity: Pulses equal, no cyanosis. Neurovascular intact. Full, normal range of motion. Neuro: Awake and alert, GCS 15, oriented to person, place, time, and situation. Cranial nerves II-XII grossly intact. Motor strength 5/5 in all extremities. Sensory grossly intact. Cerebellar exam normal. Normal gait. 00:27 Head/face: Palpable CRUSHER AND BINDER OPERATOR shunt tubing behind the right ear, no overlying skin changes. Vital Signs: 05/05 22:37 BP 131 / 70; Pulse 112; Resp 18 S; Temp 98.4(O); Pulse Ox 97% on R/A; Weight 108.41 kg lg3 (R); Height 5 ft. 4 in. (R); Pain 10/10; 23:30 BP 115 / 60; Pulse 87; Resp 17 S; Pulse Ox 98% on R/A; ha1 22:37 Body Mass Index 41.02 (108.41 kg, 162.56 cm) lg3 22:37 Pain Scale: Adult lg3 MDM: 22:49 Patient medically screened. rt 05/06 00:27 Differential Diagnosis Shunt malfunction, pain to CRUSHER AND BINDER OPERATOR shunt tubing. Data reviewed: vital rt signs, nurses notes. I considered the following discharge prescriptions or medication management in the emergency department Medications were administered in the Emergency Department. See MAR. Independent interpretation of the following test(s) in the Emergency Department X-Ray: My interpretation is The previously malfunctioning CRUSHER AND BINDER OPERATOR shunt is noted, is in discontinuity, the apparently functional shunt appears to be in continuity.. Test considered but Not performed: CT: Patient with innumerable CT scans, no focal neurodeficits at this time, pain is clearly due to CRUSHER AND BINDER OPERATOR shunt tubing, do not believe that CT scan is indicated at this time.. Care significantly affected by the following chronic conditions: Hydrocephalus. Counseling: I had a detailed discussion with the patient and/or guardian regarding the historical points, exam findings, and any diagnostic results supporting the discharge/admit diagnosis, radiology results, the need for outpatient follow up. 05/05 22:54 Order name: Shuntogram XRAY rt Administered Medications: 05/05 23:40 Drug: Ketorolac IVP 15 mg IVP once Route: IVP; Site: right antecubital; as9 05/06 00:21 Follow up: Response: No adverse reaction; Marked relief of symptoms; Pain is decreased ha05/05 23:42 Drug: metoCLOPramide IVP 10 mg IVP once; over 1 to 2 minutes Route: IVP; Site: right as9 antecubital; 05/06 00:20 Follow up: Response: No adverse reaction; Marked relief of symptoms ha1 05/05 23:44 Drug: diphenhydrAMINE IVP 25 mg IVP once Route: IVP; Site: right antecubital; as9 05/06 00:20 Follow up: Response: No adverse reaction ha1 Disposition Summary: 05/06/23 00:07 Discharge Ordered Notes: Location: Home rt Problem: new rt Symptoms: have improved rt Condition: Stable rt Diagnosis - Headache rt Followup: rt - With: Private Physician - When: 2 - 3 days - Reason: Discharge Instructions: - Discharge Summary Sheet rt - Brain Shunt Home Guide rt Forms: - Medication Reconciliation Form rt - Thank You Letter rt - Antibiotic Education rt - Prescription Opioid Use rt - Patient Portal Instructions rt - Leadership Thank You Letter rt Signatures: Dispatcher [employer] Robina Rachel, RN RN lg3 Matt Persaud MD MD rt Kurt Salazar RN RN as9 Narcisa Veloz RN ha1
--- NOTE | 2023-05-06 00:07 | ER ---
Nurse's Notes [facility] Name: Skye Song Age: 48 yrs Sex: Female : 1975 Arrival Date: 05/05/2023 Time: 22:31 Bed 5 Private MD: Diagnosis: Headache Presentation: 05/05 22:37 Chief complaint: Patient states: i have a lump behind my right ear and i have a PRESIDENT PRACTICING UROLOGIST lg3 shunt. i don't know if its old tubing or something else but it hurts. Coronavirus screen: Client denies travel out of the [place] in the last 14 days. At this time, the client does not indicate any symptoms associated with coronavirus-19. Ebola Screen: No symptoms or risks identified at this time. Initial Sepsis Screen: Does the patient meet any 2 criteria? No. Patient's initial sepsis screen is negative. Does the patient have a suspected source of infection? No. Patient's initial sepsis screen is negative. Risk Assessment: Do you want to hurt yourself or someone else? Patient reports no desire to harm self or others. Onset of symptoms is unknown. 22:37 Method Of Arrival: Ambulatory lg3 22:37 Acuity: NIDA 4 lg3 Triage Assessment: 22:42 General: Appears in no apparent distress. comfortable, Behavior is calm, cooperative. lg3 Pain: Complains of pain in right occipital area, right ear and right base of the skull. EENT: Reports pain in right ear. Neuro: No deficits noted. Squires Agitation-Sedation Scale (RASS): 0 - Alert and Calm Level of Consciousness is awake, alert, obeys commands, Oriented to person, place, time, situation. Cardiovascular: No deficits noted. Denies chest pain, shortness of breath, Capillary refill < 3 seconds Clubbing of nail beds is absent JVD is absent Patient's skin is warm and dry. Respiratory: No deficits noted. Airway is patent Respiratory effort is even, unlabored, Respiratory pattern is regular, symmetrical. GI: No deficits noted. No signs and/or symptoms were reported involving the gastrointestinal system. Abdomen is round non-distended, obese. : No deficits noted. No signs and/or symptoms were reported regarding the genitourinary system. Derm: Skin is intact, is healthy with good turgor, Skin is dry, Skin is normal, Skin temperature is warm Reports lump behind ear. Musculoskeletal: No deficits noted. No signs and/or symptoms reported regarding the musculoskeletal system. Circulation, motion, and sensation intact. Range of motion: intact in all extremities. 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 lg3 Historical: - Allergies: 22:42 Iodine; lg3 22:42 Naproxen; lg3 22:42 tramadol; lg3 - Home Meds: 22:42 levetiracetam 500 mg oral tablet three times a day [Active]; pregabalin 75 mg Oral lg3 capsule daily [Active]; promethazine 25 mg Oral tablet [Active]; ondansetron HCl 4 mg Oral tablet [Active]; benzonatate 100 mg oral capsule [Active]; diltiazem HCl 30 mg Oral tablet 3 times per day [Active]; fenofibrate 54 mg oral tablet daily [Active]; meclizine 25 mg Oral tablet [Active]; Imitrex 50 mg Oral tablet [Active]; sertraline 100 mg oral tablet daily [Active]; hydrochlorothiazide 25 mg Oral tablet daily [Active]; methocarbamol 500 mg Oral tablet [Active]; - PMHx: 22:42 Anxiety; BRAIN TUMOR; graves disease; Hydrocephalus; Migraines; Seizures; lg3 - PSHx: 22:42 Appendectomy; Brain sx; Cholecystectomy; eye sx; PRESIDENT PRACTICING UROLOGIST shunt; lg3 - Immunization history:: Adult Immunizations up to date, Client reports having NOT received the Covid vaccine. Flu vaccine is not up to date. - Social history:: Smoking status: Patient denies any tobacco usage or history of. Patient/guardian denies using alcohol, street drugs. - Family history:: not pertinent. Screenin:50 [facility] ED Fall Risk Assessment (Adult) History of falling in the last 3 months, ha1 including since admission No falls in past 3 months (0 pts) Confusion or Disorientation No (0 pts) Intoxicated or Sedated No (0 pts) Impaired Gait No (0 pts) Mobility Assist Device Used No (0 pt) Altered Elimination No (0 pt) Score/Fall Risk Level 0 - 2 = Low Risk Oriented to surroundings, Maintained a safe environment, Hourly rounding (assess needs \T\ fall precautionary measures) done. Abuse screen: Denies threats or abuse. Denies injuries from another. Nutritional screening: No deficits noted. Tuberculosis screening: No symptoms or risk factors identified. Assessment: 22:49 General: Appears uncomfortable, Behavior is cooperative. Pain: Complains of pain in ha1 right ear and right occipital area Pain does not radiate. Pain currently is 9 out of 10 on a pain scale. Quality of pain is described as pressure, throbbing, Pain began gradually. Neuro: Level of Consciousness is awake, alert, obeys commands, Oriented to person, place, time, situation. Cardiovascular: Capillary refill < 3 seconds Patient's skin is warm and dry. Respiratory: Airway is patent Respiratory effort is even, unlabored, Respiratory pattern is regular, symmetrical. GI: No signs and/or symptoms were reported involving the gastrointestinal system. Derm: Skin is pink, warm \T\ dry. 23:55 Reassessment: Patient and/or family updated on plan of care and expected duration. Pain ha1 level reassessed. Patient is alert, oriented x 3, equal unlabored respirations, skin warm/dry/pink. Patient states feeling better. Patient states symptoms have improved. Vital Signs: 22:37 BP 131 / 70; Pulse 112; Resp 18 S; Temp 98.4(O); Pulse Ox 97% on R/A; Weight 108.41 kg lg3 (R); Height 5 ft. 4 in. (R); Pain 10/10; 23:30 BP 115 / 60; Pulse 87; Resp 17 S; Pulse Ox 98% on R/A; ha1 22:37 Body Mass Index 41.02 (108.41 kg, 162.56 cm) lg3 22:37 Pain Scale: Adult lg3 ED Course: 22:34 Patient arrived in ED. kj1 22:34 Matt Persaud MD is Attending Physician. rt 22:42 Triage completed. lg3 22:42 Arm band placed on right wrist. lg3 22:50 Patient has correct armband on for positive identification. Placed in gown. Bed in low ha1 position. Call light in reach. Side rails up X 1. 23:15 Inserted saline lock: 20 gauge in right antecubital area, using aseptic technique. ha1 23:26 Shuntogram XRAY In Process Unspecified. EDMS 05/06 00:03 Provided Education on: medication administration. ha1 00:19 No provider procedures requiring assistance completed. Patient did not have IV access ha1 during this emergency room visit. Administered Medications: 05/05 23:40 Drug: Ketorolac IVP 15 mg IVP once Route: IVP; Site: right antecubital; as9 05/06 00:21 Follow up: Response: No adverse reaction; Marked relief of symptoms; Pain is decreased ha1 05/05 23:42 Drug: metoCLOPramide IVP 10 mg IVP once; over 1 to 2 minutes Route: IVP; Site: right as9 antecubital; 05/06 00:20 Follow up: Response: No adverse reaction; Marked relief of symptoms ha1 05/05 23:44 Drug: diphenhydrAMINE IVP 25 mg IVP once Route: IVP; Site: right antecubital; 9 05/06 00:20 Follow up: Response: No adverse reaction ha1 Medication: 00:03 VIS not applicable for this client. ha1 Outcome: 00:07 Discharge ordered by . rt 00:20 Discharged to home ambulatory, ha1 00:20 Condition: stable 00:20 Discharge instructions given to patient, Instructed on discharge instructions, follow up and referral plans. Demonstrated understanding of instructions, follow-up care, 00:21 Patient left the ED. ha1 Signatures: Dispatcher [employer] EDMS Akanksha Mi kj1 Robina Jimenez RN RN lg3 Narcisa Veloz RN RN ha1 Matt Persaud MD MD rt Kurt Salazar RN RN as9 Corrections: (The following items were deleted from the chart) 00:02 05/05 23:30 BP 115 / 60; Pulse 74bpm; Resp 17bpm; Spontaneous; Pulse Ox 98% RA; ha1 ha1
[2023-05-06 01:42] VITALS: TEMP 98.4
[2023-05-06 01:56] VITALS: BP 115/60; O2SAT 98
--- NOTE | 2023-05-06 16:29 | RAD REPORT ---
EXAM DESCRIPTION: Shuntogram CLINICAL HISTORY Pain at vp product tubing TECHNIQUE: Frontal views obtained of the head and neck, chest, abdomen and pelvis. COMPARISON: None available for comparison FINDINGS: The visualized cervical portion of the shunt tube appears intact. There is apparent calcified old shunt tube more laterally. Thoracic, and abdominal portions of the shunt catheter appear intact. There is a partially visualized sharp angulation of the tube in the right lower quadrant where the tu be may be kinked. This is not clearly identified on the images obtained. IMPRESSION: 1. Thoracic, and abdominal portions of the shunt catheter appear intact. 2. There is a partially visualized sharp angulation of the tube in the right lower quadrant where t he tube may be kinked. This is not clearly identified on the images obtained. Electronically signed by: Mick Garsia MD 05/06/2023 01:38 AM ASSOCIATE WEB DEVELOPER Due to temporary technical issues with the PACS/Fluency reporting system, reports are being signed by the in house radiologists without review as a courtesy to insure prompt reporting. The interpreting radiologist is fully responsible for the content of the report.
== END ==
LOC: ER 22:31
DX: R51.9 Headache, unspecified (principal); Z98.2 Presence of cerebrospinal fluid drainage device; Z28.310 Unvaccinated for COVID-19; Z88.5 Allergy status to narcotic agent; Z91.048 Other nonmedicinal substance allergy status
CPT/HCPCS: 75809; 49427; J2765; J1200

== ENCOUNTER → 2023-06-15 | Emergency (ER) | payer OTHER ==
[~2023-06-15] MED LIST changes: -KETOROLAC 30 MG/ML INJ ONE; -METOCLOPRAMIDE 10 MG/2mL INJ ONE; +dexAMETHasone 10 MG/ML VIAL ONE
[2023-06-15 11:52] LABS: Absolute Basophils 0.1 K/uL (0-0.5); Absolute Eosinophils 0.2 K/uL (0-0.5); Absolute Lymphocytes (CBC) 1.8 K/uL (0.7-4.9); Absolute Monocytes 0.4 K/uL (0.1-1.3); Absolute Neutrophil 8.2 K/uL (1.8-8.0); Basophils % 0.6 % (0-1.3); Eosinophils % 2.3 % (0-4.4); Hematocrit 45.9 % (36.0-45.0); Hemoglobin 15.8 g/dL (12.0-15.0); MCHC 34.4 g/dL (32.0-36.0); MCV 81.3 fL (80-100); Neutrophils % 76.1 % (41.7-73.7); Nucleated Red Blood Cells % 0.1 % (0-0); Platelets 466 thou/uL (152-406); RBC Red Blood Cell Count 5.64 M/uL (3.86-4.86); Red Cell Distribution Width 14.7 % (12.1-15.2)
[2023-06-15 12:10] LABS: Albumin 3.5 g/dL (3.4-5.0); Albumin/Globulin Ratio 0.9 (1.1-1.8); Anion Gap 8.4 mEq/L (5.0-15.0); Bilirubin Total 0.7 mg/dL (0.2-1.0); Potassium 3.4 mEq/L (3.5-5.1); Protein, Total 7.5 g/dL (6.4-8.2)
[2023-06-15 12:28] LABS: Thyroid Stimulating Hormone < 0.005 uIU/mL (0.358-3.740)
[2023-06-15 13:04] LABS: Specific Gravity 1.022 (1.005-1.030); Transitional Epithelial <5 /HPF (None Seen); Urine Bacteria <20 /HPF (<20); Urine Bilirubin NEGATIVE (Negative); Urine Blood 3+ (OVER) (Negative); Urine Clarity Extremely Turbid (Clear); Urine Color Yellow (Yellow); Urine Glucose NEGATIVE (Negative); Urine Mucus Slight /HPF (None Seen); Urine Protein TRACE (Negative); Urine Urobilinogen Normal (Normal)
--- NOTE | 2023-06-15 13:08 | EDPHYS ---
[facility] Name: Skye Song Age: 48 yrs Sex: Female : 1975 Arrival Date: 06/15/2023 Time: 11:03 Bed 11 Private MD: Christopher Wharton ED Physician Austin Holman HPI: 06/14 11:22 This 48 yrs old Female presents to ER via Ambulatory with complaints of Rash. ec2 11:22 Patient arrives today for several days of rash. Patient reports that she has been ec2 experiencing a rash to the bilateral lower extremities. Patient reports that it is pruritic, reports no fevers or chills, no nausea or vomiting, denies any cough and cold symptoms. Patient reports history of Graves' disease, other chronic medical problems as well. Patient reports no new medications, no new food intake, no known new exposures.. 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 - Social history:: Smoking status: Patient denies any tobacco usage or history of. ROS: 11:22 Constitutional: as per hpi ec2 Exam: 11:22 Constitutional: GEN: NAD Head: atraumatic Eyes: EOMI Ears: External ears are ec2 normal. CV: regular rate LUNGS: no respiratory distress ABD: non-distended SKIN: Small macular rashes noted to the bilateral upper extremities with excoriations noted, no fluctuance appreciated, no warmth appreciated, no discharge noted. MSK: no evidence of trauma NEURO: moves all extremities equally Vital Signs: 11:18 BP 121 / 99; Pulse 102; Resp 17; Temp 97; Pulse Ox 98% ; Pain 10/10; ll1 12:45 BP 124 / 92; Pulse 98; Resp 15; Pulse Ox 99% ; ko1 11:18 Pain Scale: Adult ll1 MDM: 11:17 Patient medically screened. ec2 11:22 Data reviewed: vital signs. ED course: Patient arrives today for evaluation of a rash. ec2 Examination remarkable for rash findings as noted above. Will obtain lab work, EKG. Currently evaluating for organ dysfunction, electrolyte disturbances, thyroid pathology.. 13:08 ED course: CBC is reassuring, urine is infectious appearing will start on antibiotics. ec2 Metabolic profile unremarkable, slight hypokalemia noted. Free T4 within appropriate ranges. TSH expectedly low. Will start the patient on steroids for her rash and antibiotics for UTI. Will discharge home. Return precautions given. . 06/14 11:22 Order name: CBC with Diff; Complete Time: 13:07 ec2 06/14 11:22 Order name: CMP; Complete Time: 13:07 ec2 06/14 11:22 Order name: UAM; Complete Time: 13:07 ec2 06/14 11:24 Order name: TSH; Complete Time: 13:07 ec2 06/14 11:24 Order name: T4 Free; Complete Time: 13:07 ec2 06/14 13:07 Order name: Urine Culture EDPA 06/14 11:22 Order name: EKG - Nurse/Tech; Complete Time: 11:45 ec2 Administered Medications: 12:46 Drug: Decadron - Dexamethasone IVP 10 mg IVP once Route: IVP; Site: right antecubital; ko1 13:28 Follow up: Response: No adverse reaction ko1 12:46 Drug: diphenhydrAMINE IVP 12.5 mg IVP once Route: IVP; Site: right antecubital; ko1 13:28 Follow up: Response: No adverse reaction ko1 Disposition Summary: 06/15/23 13:08 Discharge Ordered Notes: Location: Home ec2 Condition: Stable ec2 Diagnosis - UTI/ Urinary tract infection, site not specified ec2 - Rash and other nonspecific skin eruption ec2 Followup: ec2 - With: Private Physician - When: - Reason: Re-evaluation by your physician Discharge Instructions: - Discharge Summary Sheet ec2 - Urinary Tract Infection, Adult, [id number] ec2 - Rash, Adult, [id number] ec2 Forms: - Medication Reconciliation Form ec2 - Thank You Letter ec2 - Antibiotic Education ec2 - Prescription Opioid Use ec2 - Patient Portal Instructions ec2 - Leadership Thank You Letter ec2 Prescriptions: - Cephalexin 500 mg Oral capsule - take 1 capsule ORAL route every 12 hours for 5 days; 10 capsule; Refills: 0, ec2 Product Selection Permitted - Prednisone 20 mg Oral Tablet - take 1 tablet ORAL route once daily for 5 days; 5 tablet; Refills: 0, Product ec2 Selection Permitted Signatures: Dispatcher [employer] Yamil To RN RN ll1 Alla Ruvalcaba RN RN ko1 Austin Holman MD MD ec2
--- NOTE | 2023-06-15 13:08 | ER ---
Nurse's Notes [facility] Name: Skye Song Age: 48 yrs Sex: Female : 1975 Arrival Date: 06/15/2023 Time: 11:03 Bed 11 Private MD: Christopher Wharton Diagnosis: UTI/ Urinary tract infection, site not specified;Rash and other nonspecific skin eruption Presentation: 06/14 11:18 Chief complaint: Patient states: Rash with itching to arms for 2 days. Starting to ll1 spread to legs now. No new medications or foods. Coronavirus screen: Client denies travel out of the [place] in the last 14 days. At this time, the client does not indicate any symptoms associated with coronavirus-19. Ebola Screen: Patient denies travel to an Ebola-affected area in the 21 days before illness onset. Initial Sepsis Screen: Does the patient meet any 2 criteria? No. Patient's initial sepsis screen is negative. Does the patient have a suspected source of infection? No. Patient's initial sepsis screen is negative. Risk Assessment: Do you want to hurt yourself or someone else? Patient reports no desire to harm self or others. Onset of symptoms was June 14, 2023. 11:18 Method Of Arrival: Ambulatory ll1 11:18 Acuity: NIDA 3 ll1 Triage Assessment: 11:19 General: Appears uncomfortable, Behavior is calm, cooperative, appropriate for age. ll1 Pain: Complains of pain in arms (rash) Pain currently is 10 out of 10 on a pain scale. Quality of pain is described as burning, aching. Derm: Rash noted that is itchy, red, on right arm and left arm Reports itching. 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 - Social history:: Smoking status: Patient denies any tobacco usage or history of. Screenin:[address] [facility] ED Fall Risk Assessment (Adult) History of falling in the last 3 months, ko1 including since admission No falls in past 3 months (0 pts) Confusion or Disorientation No (0 pts) Intoxicated or Sedated No (0 pts) Impaired Gait No (0 pts) Mobility Assist Device Used No (0 pt) Altered Elimination No (0 pt) Score/Fall Risk Level 0 - 2 = Low Risk Oriented to surroundings, Maintained a safe environment, Educated pt \T\ family on fall prevention, incl call for assistance when getting out of bed, Assessed \T\ reinforced patient's understanding of fall precautions, Provided non-skid footwear, Hourly rounding (assess needs \T\ fall precautionary measures) done, Used ambulatory aids as needed (educated on \T\ assisted with), Used gait belt as appropriate. Abuse screen: Denies threats or abuse. Denies injuries from another. Nutritional screening: No deficits noted. Tuberculosis screening: No symptoms or risk factors identified. Assessment: 12:45 General: Appears in no apparent distress. Behavior is appropriate for age, anxious. ko1 Pain: Complains of pain in left arm and right arm. Neuro: No deficits noted. Cardiovascular: No deficits noted. Respiratory: No deficits noted. GI: No deficits noted. : No deficits noted. EENT: No deficits noted. Derm: Skin rash Rash noted that is itchy, red, raised, on left arm and right arm. Musculoskeletal: No deficits noted. Vital Signs: 11:18 BP 121 / 99; Pulse 102; Resp 17; Temp 97; Pulse Ox 98% ; Pain 10/10; ll1 12:45 BP 124 / 92; Pulse 98; Resp 15; Pulse Ox 99% ; ko1 11:18 Pain Scale: Adult ll1 ED Course: 11:04 Patient arrived in ED. rg4 11:05 Christopher Wharton DO is Private Physician. rg4 11:06 Austin Holman MD is Attending Physician. ec2 11:19 Triage completed. ll1 11:20 Arm band placed on. ll1 11:44 Initial lab(s) drawn, by me, sent to lab. EKG done. Inserted saline lock: 22 gauge in jg11 right antecubital area, using aseptic technique. Blood collected. 11:45 T4 Free Sent. jg11 11:45 TSH Sent. jg11 11:45 CMP Sent. jg11 11:45 CBC with Diff Sent. jg11 12:36 Alla Ruvalcaba, RN is Primary Nurse. ko1 12:45 Patient has correct armband on for positive identification. Allergy band placed. Bed in ko1 low position. Call light in reach. Side rails up X 1. Provided Education on: na. Pulse ox on. NIBP on. Door closed. Noise minimized. Lights dimmed. Warm blanket given. Assisted to bathroom. 12:45 No provider procedures requiring assistance completed. ko1 12:50 UAM Sent. ko1 13:25 IV discontinued, intact, bleeding controlled, No redness/swelling at site. Pressure ko1 dressing applied. Administered Medications: 12:46 Drug: Decadron - Dexamethasone IVP 10 mg IVP once Route: IVP; Site: right antecubital; ko1 13:28 Follow up: Response: No adverse reaction ko1 12:46 Drug: diphenhydrAMINE IVP 12.5 mg IVP once Route: IVP; Site: right antecubital; ko1 13:28 Follow up: Response: No adverse reaction ko1 Medication: 12:45 VIS not applicable for this client. ko1 Outcome: 13:08 Discharge ordered by . ec2 13:25 Discharged to home ambulatory, ko1 13:25 Condition: stable 13:25 Discharge instructions given to patient, Instructed on discharge instructions, follow up and referral plans. medication usage, Demonstrated understanding of instructions, follow-up care, medications, Prescriptions given X 2, 13:28 Patient left the ED. ko1 Signatures: Isaura Carmona rg4 Yamil Ledezma RN RN ll1 Alla Ruvalcaba, RN RN ko1 Austin Holman MD MD ec2 Jose Alfredo Jacob jg11 Corrections: (The following items were deleted from the chart) 11:20 11:18 Pulse 102bpm; Resp 17bpm; Pulse Ox 98%; Temp 97F; Pain 10/10, Adult; ll1 ll1 11:21 11:18 Acuity: NIDA 4 ll1 ll1
[2023-06-15 14:16] VITALS: BP 124/92; TEMP 97; O2SAT 99
== END ==
LOC: ER 11:03
DX: N39.0 Urinary tract infection, site not specified (principal); R21 Rash and other nonspecific skin eruption; E05.00 Thyrotoxicosis with diffuse goiter without thyrotoxic crisis or storm; Z88.5 Allergy status to narcotic agent; Z91.018 Allergy to other foods; Z91.048 Other nonmedicinal substance allergy status
CPT/HCPCS: 87088; 85025; 81001; 87086; 36415; 84443; 84439; 80053; J1200; J1100

== ENCOUNTER 2023-09-21 17:19 | Emergency (ER) | payer OTHER ==
[2023-09-21 18:25] LABS: Absolute Basophils 0.1 K/uL (0-0.5); Absolute Eosinophils 0.2 K/uL (0-0.5); Absolute Lymphocytes (CBC) 1.3 K/uL (0.7-4.9); Absolute Monocytes 0.5 K/uL (0.1-1.3); Absolute Neutrophil 9.3 K/uL (1.8-8.0); Basophils % 0.5 % (0-1.3); Eosinophils % 1.6 % (0-4.4); Hematocrit 44.2 % (36.0-45.0); Hemoglobin 14.9 g/dL (12.0-15.0); Lymphocytes % 11.5 % (15.3-44.8); MCH 27.4 pg (27.0-35.0); MCHC 33.7 g/dL (32.0-36.0); MCV 81.5 fL (80-100); MPV 7.2 fL (7.6-11.3); Monocytes % 4.1 % (3.3-12.3); Neutrophils % 82.3 % (41.7-73.7); Nucleated Red Blood Cells % 0.1 % (0-0); Platelets 389 thou/uL (152-406); RBC Red Blood Cell Count 5.42 M/uL (3.86-4.86); Red Cell Distribution Width 13.7 % (12.1-15.2)
[2023-09-21 18:41] LABS: Albumin 3.2 g/dL (3.4-5.0); Albumin/Globulin Ratio 0.9 (1.1-1.8); Anion Gap 5.9 mEq/L (5.0-15.0); Bilirubin Direct 0.2 mg/dL (0-0.2); Bilirubin Indirect, Calculated 0.5 mg/dL (0.2-0.8); Bilirubin Total 0.7 mg/dL (0.2-1.0); Globulin 3.7 g/dL (2.3-3.5); Potassium 2.9 mEq/L (3.5-5.1); Protein, Total 6.9 g/dL (6.4-8.2); Troponin High Sensitivity 28.8 pg/mL (<58.9)
[2023-09-21] MEDS ORDERED: ONDANSETRON 4 MG/2 ML VIAL ONE (19:37)
[2023-09-21] MEDS ORDERED: HYDROMORPHONE HCL 1 MG/ML INJ ONE (19:37)
--- NOTE | 2023-09-21 20:07 | RAD REPORT ---
EXAM DESCRIPTION: CT - Abdomen Pelvis W Contrast - 09/21/2023 6:31 pm CLINICAL HISTORY: ABD PAIN COMPARISON: Chest Single View dated 09/21/2023 TECHNIQUE: Thin cut axial CT imaging of the abdomen and pelvis was performed following intravenous a dministration of iodinated contrast. Multiplanar reformats were generated and reviewed. All CT scans are performed using dose optimization technique as appropriate and may include automated exposure control or mA/KV adjustment according to patient size. FINDINGS: No suspicious findings in the lung bases. The liver, spleen, adrenal glands, and pancreas show no suspicious findings. Gallbladder was surgical ly removed Symmetric renal function is seen with no hydronephrosis or suspicious renal mass. No dilated bowel loops or bowel wall thickening. Ventriculoperitoneal shunt catheter in place. Domina nt her ovarian cyst or follicle measuring 4.8 cm. No free air, free fluid or inflammatory stranding. No hernia, mass or bulky lymphadenopathy. The urinary bladder is without significant finding. No suspicious bony findings. IMPRESSION: No acute intra-abdominal process. Incidental findings as above.
--- NOTE | 2023-09-21 20:31 | RAD REPORT ---
EXAM DESCRIPTION: [facility] Single View09/21/2023 6:58 pm CLINICAL HISTORY: CHEST PAIN COMPARISON: Chest Single View dated 02/28/2023; Chest Single View dated 04/21/2022; Chest Single View dated 08/03/2021; Chest Single View dated 06/20/2021 TECHNIQUE: Portable AP view of the chest. FINDINGS: The lungs are clear. Ventricular shunt catheters along the right chest wall. No pneumotho rax or effusion. The cardiomediastinal contours are unremarkable. IMPRESSION: No acute cardiopulmonary process.
--- NOTE | 2023-09-21 21:13 | ER ---
Nurse's Notes [facility] Name: Skye Song Age: 48 yrs Sex: Female : 1975 Arrival Date: 09/21/2023 Time: 17:19 Bed 16 Private MD: Diagnosis: Acute noncardiac chest pain, spasmodic epigastric pain Presentation: 09/20 17:25 Chief complaint: EMS states: toned out for CP, midsternal/epigastric that radiates down me1 bilateral arms with sudden onset at rest. Started vomiting right when pain started. Given 324mg ASA by EMS. Coronavirus screen: Vaccine status: Patient reports being unvaccinated. Ebola Screen: No symptoms or risks identified at this time. Initial Sepsis Screen: Does the patient meet any 2 criteria? No. Patient's initial sepsis screen is negative. Does the patient have a suspected source of infection? No. Patient's initial sepsis screen is negative. Risk Assessment: Do you want to hurt yourself or someone else? Patient reports no desire to harm self or others. Onset of symptoms was September 21, 2023. 17:25 Method Of Arrival: EMS: [facility] mi1 17:25 Acuity: NIDA 3 me1 Triage Assessment: 17:37 General: Appears uncomfortable, obese, well developed, well nourished, Behavior is me1 calm, cooperative, appropriate for age, Reports toned out for CP, midsternal/epigastric that radiates down bilateral arms with sudden onset at rest. Started vomiting right when pain started. Pain: Complains of pain in chest Pain radiates to right arm and left arm Pain currently is 10 out of 10 on a pain scale. Quality of pain is described as heavy, Pain began suddenly, Is continuous. EENT: No signs and/or symptoms were reported regarding the EENT system. Neuro: Level of Consciousness is awake, alert, obeys commands, Oriented to person, place, time, situation, Appropriate for age. Cardiovascular: Patient's skin is warm and dry. Respiratory: Airway is patent Respiratory effort is even, unlabored, Respiratory pattern is regular, symmetrical. GI: Reports nausea, vomiting, since today, when cp started. : No signs and/or symptoms were reported regarding the genitourinary system. Derm: Skin is intact, is healthy with good turgor, Skin is pink, warm \T\ dry. Musculoskeletal: No signs and/or symptoms reported regarding the musculoskeletal system. 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 - Infectious Disease History:: Denies. - Social history:: Smoking status: Patient denies any tobacco usage or history of. - Family history:: not pertinent. Screenin:56 [facility] ED Fall Risk Assessment (Adult) History of falling in the last 3 months, mi1 including since admission No falls in past 3 months (0 pts) Confusion or Disorientation No (0 pts) Intoxicated or Sedated No (0 pts) Impaired Gait Yes (1 pt) Mobility Assist Device Used No (0 pt) Altered Elimination No (0 pt) Score/Fall Risk Level 0 - 2 = Low Risk Maintained a safe environment, Provided non-skid footwear, Hourly rounding (assess needs \T\ fall precautionary measures) done. Abuse screen: Denies threats or abuse. Nutritional screening: No deficits noted. Tuberculosis screening: No symptoms or risk factors identified. Assessment: 17:30 General: See triage assessment.. Pain: Complains of pain in chest Pain radiates to mi1 right arm and left arm. Vital Signs: 17:25 BP 138 / 70; Pulse 74; Resp 18; Temp 98.3; Pulse Ox 94% on R/A; Weight 104.33 kg; me1 Height 5 ft. 4 in. ; Pain 10/10; 19:00 BP 129 / 84; Pulse 81; Resp 15; Pulse Ox 98% on R/A; me1 20:00 BP 143 / 77; Pulse 70; Resp 18; Pulse Ox 96% on R/A; me1 21:00 BP 132 / 75; Pulse 66; Resp 21; Pulse Ox 97% on R/A; me1 17:25 Body Mass Index 39.48 (104.33 kg, 162.56 cm) me1 17:25 Pain Scale: Adult me1 ED Course: 17:24 Patient arrived in ED. me1 17:25 Mya Murrell, RN is Primary Nurse. me1 17:25 Radha Mccall MD is Attending Physician. sp3 17:37 Triage completed. me1 17:37 Arm band placed on Patient placed in an exam room. me1 17:37 Client placed on continuous cardiac and pulse oximetry monitoring. NIBP monitoring me1 applied. monitor technician on. Pulse ox on. NIBP on. Warm blanket given. 17:37 No provider procedures requiring assistance completed. O2 via room air. me1 17:40 EKG done, by ED staff, reviewed by Radha Mccall MD. me1 17:56 Patient has correct armband on for positive identification. Bed in low position. Call mi1 light in reach. Side rails up X2. Provided Education on: POC. Verbalized understanding. . 18:08 Basic Metabolic Panel Sent. me1 18:08 CBC with Diff Sent. me1 18:08 LFT's Sent. me1 18:08 Magnesium Sent. me1 18:08 Troponin HS Sent. me1 18:08 Lipase Sent. me1 18:08 Initial lab(s) drawn, by mi, sent to lab. Inserted saline lock: 20 gauge in right mi1 antecubital area, using aseptic technique. 18:33 CT Abd/Pelvis - IV Contrast Only In Process Unspecified. EDMS 19:00 XRAY Chest (1 view) In Process Unspecified. EDMS 19:48 Troponin High Sensitivity: Draw 1 hour after first Sent. me1 20:03 Attending Physician role handed off by Radha Mccall MD sp4 20:03 Aniket Mcleod MD is Attending Physician. sp4 21:11 Emmanuel Durant MD is Referral Physician. sp4 21:28 IV discontinued, intact, bleeding controlled, No redness/swelling at site. Pressure me1 dressing applied. Administered Medications: 19:42 Drug: HYDROmorphone IVP 1 mg IVP once Route: IVP; Site: right antecubital; me1 20:31 Follow up: Response: No adverse reaction; Pain is decreased me1 19:42 Drug: Ondansetron IVP 4 mg IVP once; over 2 minutes Route: IVP; Site: right antecubital;me1 20:31 Follow up: Response: No adverse reaction; Nausea is decreased me1 Medication: 17:30 VIS not applicable for this client. me1 Outcome: 21:12 Discharge ordered by . sp4 21:28 Discharged to home via wheelchair, with family, me1 21:28 Condition: stable 21:28 Discharge instructions given to patient, Instructed on discharge instructions, follow up and referral plans. medication usage, Demonstrated understanding of instructions, follow-up care, medications, Prescriptions given X 1, 21:52 Patient left the ED. me1 Signatures: Dispatcher [employer] EDRadha Maguire MD MD sp3 Aniket Mcleod MD MD sp4 Mya Murrell, RN RN me1
--- NOTE | 2023-09-21 21:13 | EDPHYS ---
Physician Documentation [facility] Name: Skye Song Age: 48 yrs Sex: Female : 1975 Arrival Date: 09/21/2023 Time: 17:19 Bed 16 Private MD: ED Physician Aniket Mcleod HPI: 09/20 17:42 This 48 yrs old Female presents to ER via EMS with complaints of Chest Pain > 30 y/o. sp3 17:42 48-year-old female with a history of anxiety, brain tumor status postsurgery with POLITICAL WORKER sp3 shunt, prior atrial flutter, seizures now presents to the ED with chief complaint anxiety and substernal chest pain that started several hours ago. Patient denies any shortness of breath, back pain, neck pain, left jaw pain, syncope, near syncope, abdominal pain, vomiting, diarrhea, rash, trauma, or any other signs or symptoms on ROS at this time.. 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 - Infectious Disease History:: Denies. - Social history:: Smoking status: Patient denies any tobacco usage or history of. - Family history:: not pertinent. ROS: 17:46 Constitutional: Negative for fever, chills, and weight loss, Eyes: Negative for injury, sp3 pain, redness, and discharge, ENT: Negative for injury, pain, and discharge, Neck: Negative for injury, pain, and swelling, Respiratory: Negative for shortness of breath, cough, wheezing, and pleuritic chest pain, Abdomen/GI: Negative for abdominal pain, nausea, vomiting, diarrhea, and constipation, Back: Negative for injury and pain, MS/Extremity: Negative for injury and deformity, Skin: Negative for injury, rash, and discoloration, Neuro: Negative for headache, weakness, numbness, tingling, and seizure, Psych: Negative for depression, anxiety, suicide ideation, homicidal ideation, and hallucinations, Allergy/Immunology: Negative for hives, rash, and allergies, Endocrine: Negative for neck swelling, polydipsia, polyuria, polyphagia, and marked weight changes, Hematologic/Lymphatic: Negative for swollen nodes, abnormal bleeding, and unusual bruising, 17:46 All other systems are negative, Exam: 17:46 Constitutional: This is a well developed, well nourished patient who is awake, alert, sp3 and in no acute distress. Head/Face: Normocephalic, atraumatic. Eyes: Pupils equal round and reactive to light, extra-ocular motions intact. Lids and lashes normal. Conjunctiva and sclera are non-icteric and not injected. Cornea within normal limits. Periorbital areas with no swelling, redness, or edema. Neck: Trachea midline, no thyromegaly or masses palpated, and no cervical lymphadenopathy. Supple, full range of motion without nuchal rigidity, or vertebral point tenderness. No Meningismus. Chest/axilla: Normal chest wall appearance and motion. Nontender with no deformity. No lesions are appreciated. Cardiovascular: Regular rate and rhythm with a normal S1 and S2. No gallops, murmurs, or rubs. Normal PMI, no JVD. No pulse deficits. Respiratory: Lungs have equal breath sounds bilaterally, clear to auscultation and percussion. No rales, rhonchi or wheezes noted. No increased work of breathing, no retractions or nasal flaring. Abdomen/GI: Soft, non-tender, with normal bowel sounds. No distension or tympany. No guarding or rebound. No evidence of tenderness throughout. Back: No spinal tenderness. No costovertebral tenderness. Full range of motion. Skin: Warm, dry with normal turgor. Normal color with no rashes, no lesions, and no evidence of cellulitis. MS/ Extremity: Pulses equal, no cyanosis. Neurovascular intact. Full, normal range of motion. Neuro: Awake and alert, GCS 15, oriented to person, place, time, and situation. Cranial nerves II-XII grossly intact. Motor strength 5/5 in all extremities. Sensory grossly intact. Cerebellar exam normal. Normal gait. Psych: Awake, alert, with orientation to person, place and time. Behavior, mood, and affect are within normal limits. 17:46 ECG was reviewed by the Attending Physician. EKG demonstrates normal sinus rhythm at 75 bpm with normal intervals, normal QRS, normal axis, normal ST/T-segment's without any evidence of acute ischemia. Vital Signs: 17:25 BP 138 / 70; Pulse 74; Resp 18; Temp 98.3; Pulse Ox 94% on R/A; Weight 104.33 kg; me1 Height 5 ft. 4 in. ; Pain 10/10; 19:00 BP 129 / 84; Pulse 81; Resp 15; Pulse Ox 98% on R/A; me1 20:00 BP 143 / 77; Pulse 70; Resp 18; Pulse Ox 96% on R/A; me1 21:00 BP 132 / 75; Pulse 66; Resp 21; Pulse Ox 97% on R/A; me1 17:25 Body Mass Index 39.48 (104.33 kg, 162.56 cm) me1 17:25 Pain Scale: Adult me1 MDM: 17:27 Patient medically screened. sp3 17:47 Data reviewed: vital signs, nurses notes, EMS record, old medical records, lab test sp3 result(s), EKG, radiologic studies. ED course: 48-year-old female with anxiety and mild chest pain. PMH above reviewed. EKG is normal. I am highly suspicious that this is mainly due to anxiety however we will obtain workup including chest x-ray and laboratory values. Patient is calm down since being here and feels better. Disposition pending workup and patient course with probable discharge home with 2 negative troponins and negative CT scan of the abdomen pelvis due to her vomiting and pain radiating inferiorly from her chest. Clinically I am not highly suspicious for sepsis, shock, ACS, aortic pathology, peptic ulcer, pancreatitis or any other related pathology or any other critical process at this time.. 21:10 ED course: EXAM DESCRIPTION: Tana Single View09/21/2023 6:58 pm CLINICAL HISTORY: sp4 CHEST PAIN COMPARISON: Chest Single View dated 02/28/2023; Chest Single View dated 04/21/2022; Chest Single View dated 08/03/2021; Chest Single View dated 06/20/2021 TECHNIQUE: Portable AP view of the chest. FINDINGS: The lungs are clear. Ventricular shunt catheters along the right chest wall. No pneumothorax or effusion. The cardiomediastinal contours are unremarkable. IMPRESSION: No acute cardiopulmonary process. . ED course: EXAM DESCRIPTION: CT - Abdomen Pelvis W Contrast - 09/21/2023 6:31 pm CLINICAL HISTORY: ABD PAIN COMPARISON: Chest Single View dated 09/21/2023 TECHNIQUE: Thin cut axial CT imaging of the abdomen and pelvis was performed following intravenous administration of iodinated contrast. Multiplanar reformats were generated and reviewed. All CT scans are performed using dose optimization technique as appropriate and may include automated exposure control or mA/KV adjustment according to patient size. FINDINGS: No suspicious findings in the lung bases. The liver, spleen, adrenal glands, and pancreas show no suspicious findings. Gallbladder was surgically removed Symmetric renal function is seen with no hydronephrosis or suspicious renal mass. No dilated bowel loops or bowel wall thickening. Ventriculoperitoneal shunt catheter in place. Dominant her ovarian cyst or follicle measuring 4.8 cm. No free air, free fluid or inflammatory stranding. No hernia, mass or bulky lymphadenopathy. The urinary bladder is without significant finding. No suspicious bony findings. IMPRESSION: No acute intra-abdominal process. Incidental findings as above. . 09/20 17:38 Order name: Basic Metabolic Panel; Complete Time: 18:43 3 09/20 17:38 Order name: CBC with Diff; Complete Time: 18:43 3 09/20 17:38 Order name: LFT's; Complete Time: 18:43 3 09/20 17:38 Order name: Magnesium; Complete Time: 18:43 3 09/20 17:38 Order name: Troponin HS; Complete Time: 18:43 3 09/20 17:48 Order name: Troponin High Sensitivity: Draw 1 hour after first; Complete Time: 20:31 3 09/20 17:50 Order name: Lipase; Complete Time: 19:09 3 09/20 17:38 Order name: XRAY Chest (1 view) [facility] 09/20 17:50 Order name: CT Abd/Pelvis - IV Contrast Only; Complete Time: 20:31 sp3 09/20 17:38 Order name: EKG; Complete Time: 17:38 sp3 09/20 17:38 Order name: Cardiac monitoring; Complete Time: 17:40 sp3 09/20 17:38 Order name: EKG - Nurse/Tech; Complete Time: 17:40 sp3 09/20 17:38 Order name: IV Saline Lock; Complete Time: 18:08 sp3 09/20 17:38 Order name: Labs collected and sent; Complete Time: 18:08 sp3 09/20 17:38 Order name: O2 Sat Monitoring; Complete Time: 17:40 sp3 EC:14 Rate is 60 beats/min. Rhythm is regular, Normal Sinus Rhythm. QRS [place] is Normal. PA sp4 interval is normal. QRS interval is normal. QT interval is normal. No Q waves. T waves are Normal. No ST changes noted. Clinical impression: Normal ECG. Interpreted by me. Reviewed by me. Administered Medications: 19:42 Drug: HYDROmorphone IVP 1 mg IVP once Route: IVP; Site: right antecubital; me1 20:31 Follow up: Response: No adverse reaction; Pain is decreased me1 19:42 Drug: Ondansetron IVP 4 mg IVP once; over 2 minutes Route: IVP; Site: right antecubital;me1 20:31 Follow up: Response: No adverse reaction; Nausea is decreased me1 Disposition Summary: 09/21/23 21:12 Discharge Ordered Problem: new sp4 Symptoms: have improved sp4 Condition: Stable sp4 Diagnosis - Acute noncardiac chest pain, spasmodic epigastric pain sp4 Followup: sp4 - With: Emmanuel Durant MD - When: 7 - 10 days - Reason: Recheck today's complaints Discharge Instructions: - Discharge Summary Sheet sp4 - Nonspecific Chest Pain, Adult, [id number] sp4 Forms: - Patient Portal Instructions sp4 Prescriptions: - dicyclomine 20 mg Oral tablet - take 1 tablet ORAL route every 6 hours; 30 tablet; Refills: 0, Product sp4 Selection Permitted Signatures: Dispatcher [employer] Radha Mahan MD MD sp3 Aniket Mcleod MD MD sp4 Mya Murrell, RN RN me1 Corrections: (The following items were deleted from the chart) 17:39 17:38 BASIC METABOLIC PANEL+C.LAB.BRZ ordered. EDMS EDMS 17:39 17:38 CBC+H.LAB.BRZ ordered. EDMS EDMS 17:39 17:38 HEPATIC FUNCTION+C.LAB.BRZ ordered. EDMS EDMS 17:39 17:38 MAGNESIUM+C.LAB.BRZ ordered. EDMS EDMS 17:39 17:38 Troponin High Sensitivity+C.LAB.BRZ ordered. EDMS EDMS 17:49 17:49 Troponin High Sensitivity+C.LAB.BRZ ordered. EDMS EDMS 17:51 17:47 ED course: 48-year-old female with anxiety and mild chest pain. PMH above sp3 reviewed. EKG is normal. I am highly suspicious that this is mainly due to anxiety however we will obtain workup including chest x-ray and laboratory values. Patient is calm down since being here and feels better. Disposition pending workup and patient course with probable discharge home with 2 negative troponins.. sp3
[2023-09-21 21:57] VITALS: TEMP 98.3
[2023-09-21 22:25] VITALS: BP 132/75; O2SAT 97
--- NOTE | 2023-09-22 16:17 | EKG ---
Test Date: 2023-09-21 Test Time: 17:29:13 A P Manager: MEASUREMENT RESULTS: Intervals: Rate: 75 NC: 154 QRSD: 84 QT: 390 QTc: 435 [place]: P: 24 NC: 154 QRS: 38 T: 28 INTERPRETIVE STATEMENTS: Normal sinus rhythm Normal ECG Compared to ECG 06/15/2023 11:22:54 Myocardial infarct finding no longer present Electronically Signed On 09-22-23 16:16:18 CDT by Emmanuel Durant
== END 2023-09-21 21:52 | disposition home or self-care (01) ==
LOC: ER 17:19
DX: R07.89 Other chest pain (principal); R10.13 Epigastric pain; Z98.2 Presence of cerebrospinal fluid drainage device; F41.9 Anxiety disorder, unspecified
CPT/HCPCS: 85025; 80048; 36415; 83735; 80076; 84484 ×2; 83690; 74177; 71045; Q9967; J1170; J2405; 93005

== ENCOUNTER 2023-10-23 14:37 | Emergency (ER) | payer OTHER ==
[2023-10-23] MEDS ORDERED: FENTANYL CITR 100 MCG/2 ML ONE (15:01)
[2023-10-23] MEDS ORDERED: NA CHLORIDE 0.9% 1,000 ML ONE (15:01)
[2023-10-23 15:07] LABS: Absolute Basophils 0.1 K/uL (0-0.5); Absolute Eosinophils 0.2 K/uL (0-0.5); Absolute Lymphocytes (CBC) 1.9 K/uL (0.7-4.9); Absolute Monocytes 0.7 K/uL (0.1-1.3); Absolute Neutrophil 4.7 K/uL (1.8-8.0); Eosinophils % 3.1 % (0-4.4); Hematocrit 46.7 % (36.0-45.0); Hemoglobin 15.8 g/dL (12.0-15.0); Lymphocytes % 24.4 % (15.3-44.8); MCH 27.8 pg (27.0-35.0); MCHC 33.9 g/dL (32.0-36.0); MCV 81.8 fL (80-100); MPV 7.1 fL (7.6-11.3); Monocytes % 9.3 % (3.3-12.3); Neutrophils % 62.2 % (41.7-73.7); Nucleated Red Blood Cells % 0.2 % (0-0); Platelets 340 thou/uL (152-406); RBC Red Blood Cell Count 5.71 M/uL (3.86-4.86); Red Cell Distribution Width 14.3 % (12.1-15.2)
[2023-10-23 15:30] LABS: Albumin 3.4 g/dL (3.4-5.0); Albumin/Globulin Ratio 0.8 (1.1-1.8); Anion Gap 11.2 mEq/L (5.0-15.0); Bilirubin Total 0.5 mg/dL (0.2-1.0); Globulin 4.3 g/dL (2.3-3.5); Magnesium 2.1 mg/dL (1.6-2.4); Potassium 3.2 mEq/L (3.5-5.1); Protein, Total 7.7 g/dL (6.4-8.2); Troponin High Sensitivity 17.2 pg/mL (<58.9)
--- NOTE | 2023-10-23 15:51 | RAD REPORT ---
EXAM DESCRIPTION: RAD - Chest Single View - 10/23/2023 3:31 pm CLINICAL HISTORY: CHEST PAIN COMPARISON: Chest Single View dated 09/21/2023; Chest Single View dated 02/28/2023; Chest Single View dated 04/21/2022; Chest Single View dated 08/03/2021 FINDINGS: Lines: None. Lungs: No evidence of edema or pneumonia. Pleural: No significant pleural effusions or pneumothorax. Cardiac: The heart size is within normal limits. Mediastinum: Within normal limits. Bones: No acute fractures. Other: Ventriculostomy catheter overlies the right hemithorax. IMPRESSION: No acute cardiopulmonary disease.
--- NOTE | 2023-10-23 18:44 | EDPHYS ---
Physician Documentation [facility] Name: Skye Song Age: 48 yrs Sex: Female : 1975 Arrival Date: 10/23/2023 Time: 14:37 Bed 2 Private MD: ED Physician Antonieta Ramires HPI: 10/22 14:54 This 48 yrs old Female presents to ER via Unassigned with complaints of Chest Pain. sd2 14:54 48 yo F presents via EMS with CC of L sided chest pain that started approximately 1 sd2 hour ago. Reports associated SOB, nausea and diaphoresis. Reports has happened previously but not this severe. Sees Cardiology and EP due to the symptoms and has a hx of atrial flutter and a loop recorder. Took 3 baby ASA prior to arrival. Denies fever or other symptoms at this time. Reports compliance with home medications.. 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 LMP N/A - , Not mb9 Historical: - Allergies: 14:57 Iodine; tl4 14:57 Naproxen; tl4 14:57 pecan; tl4 14:57 tramadol; tl4 - Home Meds: 15:12 levetiracetam 500 mg Oral tablet three times a day [Active]; benzonatate 100 mg Oral mb9 capsule [Active]; diltiazem HCl 30 mg Oral tablet 3 times per day [Active]; fenofibrate 54 mg Oral tablet daily [Active]; hydrochlorothiazide 25 mg Oral tablet daily [Active]; sertraline 100 mg Oral tablet daily [Active]; pregabalin 75 mg Oral capsule daily [Active]; meclizine 25 mg Oral tablet [Active]; methocarbamol 500 mg Oral tablet [Active]; promethazine 25 mg Oral tablet [Active]; ondansetron HCl 4 mg Oral tablet [Active]; Imitrex 50 mg Oral tablet [Active]; - PMHx: 14:57 a flutter; Anxiety; Hydrocephalus; BRAIN TUMOR; graves disease; Migraines; Seizures; tl4 - PSHx: 14:57 Appendectomy; Brain sx; Cholecystectomy; eye sx; 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 - Infectious Disease History:: Denies. - Social history:: Smoking status: Patient denies any tobacco usage or history of. ROS: 14:54 Constitutional: Negative for fever, chills, and weight loss, Eyes: Negative for injury, sd2 pain, redness, and discharge, 14:54 MS/Extremity: Negative for injury and deformity, Skin: Negative for injury, rash, and discoloration, Neuro: Negative for headache, numbness and tingling. 14:54 Cardiovascular: Positive for chest pain, Negative for edema, palpitations, 14:54 Respiratory: Positive for shortness of breath, Negative for cough, wheezing, 14:54 Abdomen/GI: Positive for nausea, Negative for abdominal pain, vomiting, diarrhea, Exam: 14:54 Constitutional: This is a well developed, well nourished patient who is awake, alert, sd2 and in no acute distress. Head/Face: Normocephalic, atraumatic. Eyes: EOMI, normal conjunctiva bilaterally Chest/axilla: Normal chest wall appearance and motion. Nontender with no deformity. Cardiovascular: Tachycardic rate and regular rhythm with a normal S1 and S2. No gallops, murmurs, or rubs. 2+ distal pulses. Reproducible left mid anterior chest wall tenderness just lateral to the sternum with no associated crepitus Respiratory: Lungs have equal breath sounds bilaterally, clear to auscultation and percussion. No rales, rhonchi or wheezes noted. No increased work of breathing, no retractions or nasal flaring. Abdomen/GI: Soft, non-tender, with normal bowel sounds. No guarding or rebound. No evidence of tenderness throughout. Skin: Warm, dry with normal turgor. Normal color with no rashes, no lesions, and no evidence of cellulitis. MS/ Extremity: Pulses equal, no cyanosis. Neurovascular intact. Full, normal range of motion. Psych: Awake, alert, with orientation to person, place and time. Behavior, mood, and affect are within normal limits. 14:54 ECG was reviewed by the Attending Physician. Sinus tachycardia, rate 101, no STEMI criteria or significant ST-T wave changes Vital Signs: 14:53 BP 108 / 83 RA; Pulse 104; Resp 20; Temp 99.1(O); Pulse Ox 97% on R/A; Weight 116.57 tl4 kg; Height 5 ft. 4 in. ; Pain 10/10; 16:29 BP 119 / 65; Pulse 76; Resp 18; Pulse Ox 100% on R/A; mb9 18:00 BP 109 / 55; Pulse 78; Resp 18; Pulse Ox 98% on R/A; mb9 14:53 Body Mass Index 44.11 (116.57 kg, 162.56 cm) tl4 14:53 Pain Scale: Adult tl4 MDM: 14:42 Patient medically screened. sd2 14:54 Differential diagnosis: acute myocardial infarction, anxiety, chest wall pain, sd2 costochondritis, gastritis, myocarditis, pancreatitis, pneumonia, pneumothorax, pulmonary embolus, stable angina, thoracic aortic disection, unstable angina, among others. The patient was not given aspirin in the Emergency Department. Patient reports taking aspirin within the past 24 hours. Data reviewed: vital signs, nurses notes, EMS record. I considered the following discharge prescriptions or medication management in the emergency department Medications were administered in the Emergency Department. See JUN. 18:43 Care significantly affected by the following chronic conditions: Atrial flutter. sd2 Counseling: I had a detailed discussion with the patient and/or guardian regarding the historical points, exam findings, and any diagnostic results supporting the discharge/admit diagnosis, lab results, radiology results, the need for outpatient follow up, to return to the emergency department if symptoms worsen or persist or if there are any questions or concerns that arise at home. ED course: Patient advised of results and need for outpatient follow-up. She is resting comfortably on my repeat exam with significant improvement in her pain. She will follow-up outpatient with her catering convention services manager and verbalizes understanding of discharge plan and strict return precautions.. 10/22 14:54 Order name: CBC with Diff; Complete Time: 15:33 sd2 10/22 14:54 Order name: CMP; Complete Time: 15:33 10/22 14:54 Order name: Magnesium; Complete Time: 15:33 sd2 10/22 14:54 Order name: Troponin High Sensitivity; Complete Time: 15:33 sd2 10/22 14:54 Order name: BNP; Complete Time: 15:33 10/22 16:40 Order name: Troponin High Sensitivity: repeat at 1700; Complete Time: 17:26 sd2 10/22 14:54 Order name: XRAY Chest (1 view); Complete Time: 15:53 sd2 10/22 14:54 Order name: EKG - Nurse/Tech; Complete Time: 14:58 sd2 Administered Medications: 15:06 Drug: NS 0.9% IV 500 ml IV at bolus once Route: IV; Rate: bolus; Site: right mb9 antecubital; 15:48 Follow up: IV Status: Completed infusion mb9 15:07 Drug: fentaNYL (PF) IVP 75 mcg IVP once Route: IVP; Site: right antecubital; mb9 15:48 Follow up: Response: No adverse reaction mb9 Disposition Summary: 10/23/23 18:44 Discharge Ordered Problem: new sd2 Symptoms: have improved sd2 Condition: Stable sd2 Diagnosis - Chest pain, unspecified sd2 Followup: sd2 - With: Private Physician - When: 2 - 3 days - Reason: Recheck today's complaints, Continuance of care, Re-evaluation by your physician Discharge Instructions: - Discharge Summary Sheet sd2 - Nonspecific Chest Pain, Adult sd2 Forms: - Medication Reconciliation Form sd2 - Antibiotic Education sd2 - Prescription Opioid Use sd2 - Patient Portal Instructions sd2 - Leadership Thank You Letter sd2 Signatures: Dispatcher [employer] Antonieta Fenton MD MD sd2 Talita Holder RN RN mb9 Luke Momin RN RN tl4
--- NOTE | 2023-10-23 18:44 | ER ---
Nurse's Notes [facility] Name: Skye Song Age: 48 yrs Sex: Female : 1975 Arrival Date: 10/23/2023 Time: 14:37 Bed 2 Private MD: Diagnosis: Chest pain, unspecified Presentation: 10/22 14:53 Ebola Screen: No symptoms or risks identified at this time. Initial Sepsis Screen: Does mb9 the patient meet any 2 criteria? No. Patient's initial sepsis screen is negative. Does the patient have a suspected source of infection? No. Patient's initial sepsis screen is negative. Risk Assessment: Do you want to hurt yourself or someone else? Patient reports no desire to harm self or others. Onset of symptoms was October 23, 2023. 14:53 Chief complaint: Patient states: Pt c/o sudden onset reproducible chest pain that tl4 radiates into both arms while sitting in a chair approx 1 hour ago, but got worse over past 20 minutes. Pt states pain feels like previous heart problems. Pt states she has been in atrial flutter. Coronavirus screen: At this time, the client does not indicate any symptoms associated with coronavirus-19. Ebola Screen: No symptoms or risks identified at this time. Initial Sepsis Screen: Does the patient meet any 2 criteria? No. Patient's initial sepsis screen is negative. Does the patient have a suspected source of infection? No. Patient's initial sepsis screen is negative. Risk Assessment: Do you want to hurt yourself or someone else? Patient reports no desire to harm self or others. Onset of symptoms was October 23, 2023 at 14:00. 14:53 Method Of Arrival: Wheelchair tl4 14:53 Acuity: NIDA 2 tl4 Triage Assessment: 14:58 General: Appears distressed, uncomfortable, Behavior is cooperative. Pain: Complains of tl4 pain in chest, right arm and left arm. EENT: No signs and/or symptoms were reported regarding the EENT system. Neuro: Level of Consciousness is awake, alert, obeys commands, Oriented to person, place, time, situation, Moves all extremities. Speech is normal. Cardiovascular: Reports chest pain, nausea, palpitations, shortness of breath, Capillary refill < 3 seconds Patient's skin is warm and dry. Respiratory: Reports shortness of breath at rest on exertion Airway is patent Respiratory effort is even, unlabored, Respiratory pattern is regular, symmetrical. GI: Reports nausea. : No signs and/or symptoms were reported regarding the genitourinary system. Derm: No signs and/or symptoms reported regarding the dermatologic system. Musculoskeletal: No signs and/or symptoms reported regarding the musculoskeletal system. 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 LMP N/A - , Not mb9 Historical: - Allergies: 14:57 Iodine; tl4 14:57 Naproxen; tl4 14:57 pecan; tl4 14:57 tramadol; tl4 - Home Meds: 15:12 levetiracetam 500 mg Oral tablet three times a day [Active]; benzonatate 100 mg Oral mb9 capsule [Active]; diltiazem HCl 30 mg Oral tablet 3 times per day [Active]; fenofibrate 54 mg Oral tablet daily [Active]; hydrochlorothiazide 25 mg Oral tablet daily [Active]; sertraline 100 mg Oral tablet daily [Active]; pregabalin 75 mg Oral capsule daily [Active]; meclizine 25 mg Oral tablet [Active]; methocarbamol 500 mg Oral tablet [Active]; promethazine 25 mg Oral tablet [Active]; ondansetron HCl 4 mg Oral tablet [Active]; Imitrex 50 mg Oral tablet [Active]; - PMHx: 14:57 a flutter; Anxiety; Hydrocephalus; BRAIN TUMOR; graves disease; Migraines; Seizures; tl4 - PSHx: 14:57 Appendectomy; Brain sx; Cholecystectomy; eye sx; 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 - Infectious Disease History:: Denies. - Social history:: Smoking status: Patient denies any tobacco usage or history of. Screenin:54 [facility] ED Fall Risk Assessment (Adult) History of falling in the last 3 months, mb9 including since admission No falls in past 3 months (0 pts) Confusion or Disorientation No (0 pts) Intoxicated or Sedated No (0 pts) Impaired Gait No (0 pts) Mobility Assist Device Used No (0 pt) Altered Elimination No (0 pt) Score/Fall Risk Level 0 - 2 = Low Risk Oriented to surroundings, Maintained a safe environment, Educated pt \T\ family on fall prevention, incl call for assistance when getting out of bed. Abuse screen: Denies threats or abuse. Nutritional screening: No deficits noted. Tuberculosis screening: No symptoms or risk factors identified. Assessment: 14:52 General: Appears uncomfortable, Behavior is cooperative, anxious. Pain: Complains of mb9 pain in chest Pain does not radiate. Pain currently is 10 out of 10 on a pain scale. Quality of pain is described as aching, dull, Pain began suddenly, Is continuous. Neuro: Squires Agitation-Sedation Scale (RASS): 0 - Alert and Calm Level of Consciousness is awake, alert, obeys commands, Oriented to person, place, time, situation, Appropriate for age. Cardiovascular: Reports chest pain, diaphoresis, lightheadedness, palpitations, Heart tones S1 S2 present Patient's skin is warm and dry. Rhythm is regular. Respiratory: Reports shortness of breath Airway is patent Respiratory effort is even, unlabored, Respiratory pattern is regular, symmetrical, Breath sounds are clear bilaterally. GI: Abdomen is round non-distended, Bowel sounds present X 4 quads. Abd is soft and non tender X 4 quads. Reports nausea. : No signs and/or symptoms were reported regarding the genitourinary system. EENT: No signs and/or symptoms were reported regarding the EENT system. Derm: Skin is pink, warm \T\ dry. Musculoskeletal: Range of motion: intact in all extremities. 16:29 Reassessment: No changes from previously documented assessment. Patient and/or family mb9 updated on plan of care and expected duration. Pain level reassessed. Patient is alert, oriented x 3, equal unlabored respirations, skin warm/dry/pink. 18:00 Reassessment: Patient and/or family updated on plan of care and expected duration. Pain mb9 level reassessed. Patient is alert, oriented x 3, equal unlabored respirations, skin warm/dry/pink. Patient states feeling better. Patient states symptoms have improved. Vital Signs: 14:53 BP 108 / 83 RA; Pulse 104; Resp 20; Temp 99.1(O); Pulse Ox 97% on R/A; Weight 116.57 tl4 kg; Height 5 ft. 4 in. ; Pain 10/10; 16:29 BP 119 / 65; Pulse 76; Resp 18; Pulse Ox 100% on R/A; mb9 18:00 BP 109 / 55; Pulse 78; Resp 18; Pulse Ox 98% on R/A; mb9 14:53 Body Mass Index 44.11 (116.57 kg, 162.56 cm) tl4 14:53 Pain Scale: Adult tl4 ED Course: 14:42 Patient arrived in ED. mb9 14:42 Talita Holder, RN is Primary Nurse. 9 14:42 Antonieta Ramires MD is Attending Physician. sd2 14:52 Arm band placed on. mb9 14:52 Initial lab(s) drawn, by me, sent to lab. EKG done, by ED staff, reviewed by Antonieta Ramires MD. Inserted saline lock: 20 gauge in right antecubital area, using aseptic technique. Blood collected. Flushed with 10 mL NS. 14:53 Placed in gown. Bed in low position. Call light in reach. Side rails up X 1. Provided mb9 Education on: press call light if needing anything. Client placed on continuous cardiac and pulse oximetry monitoring. NIBP monitoring applied. monitor car operator on. Door closed. Noise minimized. Warm blanket given. Pillow given. 14:56 Triage completed. tl4 14:58 BNP Sent. mb9 14:58 Troponin High Sensitivity Sent. mb9 14:58 Magnesium Sent. mb9 14:58 CMP Sent. mb9 14:59 CBC with Diff Sent. mb9 15:33 XRAY Chest (1 view) In Process Unspecified. EDMS 16:30 No provider procedures requiring assistance completed. mb9 18:50 IV discontinued, intact, bleeding controlled, No redness/swelling at site. Pressure kc6 dressing applied. Administered Medications: 15:06 Drug: NS 0.9% IV 500 ml IV at bolus once Route: IV; Rate: bolus; Site: right mb9 antecubital; 15:48 Follow up: IV Status: Completed infusion mb9 15:07 Drug: fentaNYL (PF) IVP 75 mcg IVP once Route: IVP; Site: right antecubital; mb9 15:48 Follow up: Response: No adverse reaction mb9 Medication: 14:53 VIS not applicable for this client. mb9 Outcome: 18:44 Discharge ordered by . sd2 18:52 Discharged to home ambulatory, mb9 18:52 Condition: stable 18:52 Discharge instructions given to patient, Instructed on discharge instructions, follow up and referral plans. Demonstrated understanding of instructions, follow-up care, 18:52 Patient left the ED. mb9 Signatures: Dispatcher [employer] Antonieta Fenton MD MD sd2 Belen Geronimo RN RN kc6 Talita Holder RN RN mb9 Luke Momin RN RN tl4
--- NOTE | 2023-10-24 16:32 | EKG ---
Test Date: 2023-10-23 Test Time: 14:47:11 Brokerage Clerk: MB MEASUREMENT RESULTS: Intervals: Rate: 101 MO: 158 QRSD: 78 QT: 330 QTc: 427 [place]: P: 52 MO: 158 QRS: 64 T: 55 INTERPRETIVE STATEMENTS: Sinus tachycardia Cannot rule out Anterior infarct, age undetermined Abnormal ECG Compared to ECG 09/21/2023 20:32:36 Myocardial infarct finding now present Sinus rhythm no longer present Electronically Signed On 10-24-23 16:28:50 CDT by Emmanuel Durant
[2023-10-27 14:47] VITALS: BP 109/55; TEMP 99.1; O2SAT 98
== END 2023-10-23 18:52 | disposition home or self-care (01) ==
LOC: ER 14:37
DX: R07.9 Chest pain, unspecified (principal); Z88.5 Allergy status to narcotic agent; Z88.8 Allergy status to other drugs, medicaments and biological substances; Z91.018 Allergy to other foods
CPT/HCPCS: 96361; 93005; 85025; 36415; 83735; 84484 ×2; 80053; 83880; 71045; 96374; 99285; J3010; J7030

== ENCOUNTER 2024-02-05 07:38 | Inpatient (IN) | payer OTHER ==
[2024-02-05] MEDS ORDERED: NITROGLYCERIN 0.4 MG/TAB SL ONE (07:59)
[2024-02-05 08:03] LABS: Absolute Basophils 0.1 K/uL (0-0.5); Absolute Eosinophils 0.3 K/uL (0-0.5); Absolute Lymphocytes (CBC) 3.8 K/uL (0.7-4.9); Absolute Monocytes 0.5 K/uL (0.1-1.3); Absolute Neutrophil 4.4 K/uL (1.8-8.0); Basophils % 0.7 % (0-1.3); Eosinophils % 2.8 % (0-4.4); Hematocrit 44.5 % (36.0-45.0); Lymphocytes % 42.3 % (15.3-44.8); MCH 27.8 pg (27.0-35.0); MCHC 33.7 g/dL (32.0-36.0); MCV 82.7 fL (80-100); Monocytes % 5.6 % (3.3-12.3); Neutrophils % 48.6 % (41.7-73.7); Nucleated Red Blood Cells % 0.2 % (0-0); Platelets 402 thou/uL (152-406); RBC Red Blood Cell Count 5.38 M/uL (3.86-4.86); Red Cell Distribution Width 15.5 % (12.1-15.2)
[2024-02-05 08:10] LABS: PT Prothrombin Time 11.4 SECONDS (9.4-12.5); Protime INR 1.02
[2024-02-05 08:22] LABS: ALT/SGPT 27 U/L (13-56); AST/SGOT 15 U/L (15-37); Albumin 3.3 g/dL (3.4-5.0); Albumin/Globulin Ratio 0.8 (1.1-1.8); Alkaline Phosphatase 148 U/L (45-117); Anion Gap 9.4 mEq/L (5.0-15.0); BUN Blood Urea Nitrogen 13 mg/dL (7-18); Bicarbonate 26 mEq/L (21-32); Bilirubin Total 0.4 mg/dL (0.2-1.0); Globulin 3.9 g/dL (2.3-3.5); Glomerular Filtration Rate 88 ml/min (=/>90); Glucose Level 141 mg/dL (74-106); Magnesium 2.1 mg/dL (1.6-2.4); NT PRO-BNP 34 pg/mL (<125); Potassium 3.4 mEq/L (3.5-5.1); Protein, Total 7.2 g/dL (6.4-8.2); Sodium Level 137 mEq/L (136-145); Troponin High Sensitivity 24.2 pg/mL (<58.9)
[2024-02-05 08:23] LABS: Bilirubin Direct < 0.2 mg/dL (0-0.2); Bilirubin Indirect, Calculated 0.2 mg/dL (0.2-0.8)
--- NOTE | 2024-02-05 08:29 | EDPHYS ---
Physician Documentation [facility] Name: Skye Song Age: 49 yrs Sex: Female : 1975 Arrival Date: 02/05/2024 Time: 07:38 Bed 6 Private MD: ED Physician Radha Mccall HPI: 02/04 07:55 This 49 yrs old Female presents to ER via Ambulatory with complaints of Chest Pain. sp3 07:55 49-year-old female with history of atrial flutter, anxiety, Graves' disease, seizures, sp3 hydrocephalus, among others now presents to the ED with chief complaint chest pain. Patient has a loop recorder in place and sees cardiology at [facility]. Patient states that pain started this morning after waking up and is described as a crushing pain substernal radiating leftward. She denies any associated symptoms including current headache, URI symptoms, cough, nausea, back pain, abdominal pain, vomiting, diarrhea, syncope, near syncope, rash, prolonged immobilization, travel history, known sick contacts, or any other signs or symptoms on ROS at this time.. SAS ARCHITECT: 08:47 LMP N/A - control method, Not ll1 Historical: - Allergies: 07:45 Iodine; ll1 07:45 Naproxen; ll1 07:45 pecan; ll1 07:45 tramadol; ll1 - PMHx: 07:45 a flutter; Anxiety; BRAIN TUMOR; graves disease; Hydrocephalus; Migraines; Seizures; ll1 - PSHx: 07:45 Appendectomy; Brain sx; Cholecystectomy; eye sx; RADIO TIME BUYER shunt; ll1 - Immunization history:: Adult Immunizations up to date. - Infectious Disease History:: Denies. - Social history:: Smoking status: Patient denies any tobacco usage or history of. ROS: 07:56 Constitutional: Negative for fever, chills, and weight loss, Eyes: Negative for injury, sp3 pain, redness, and discharge, ENT: Negative for injury, pain, and discharge, Neck: Negative for injury, pain, and swelling, Respiratory: Negative for shortness of breath, cough, wheezing, and pleuritic chest pain, Abdomen/GI: Negative for abdominal pain, nausea, vomiting, diarrhea, and constipation, Back: Negative for injury and pain, MS/Extremity: Negative for injury and deformity, Skin: Negative for injury, rash, and discoloration, Neuro: Negative for headache, weakness, numbness, tingling, and seizure, Psych: Negative for depression, anxiety, suicide ideation, homicidal ideation, and hallucinations, Allergy/Immunology: Negative for hives, rash, and allergies, Endocrine: Negative for neck swelling, polydipsia, polyuria, polyphagia, and marked weight changes, Hematologic/Lymphatic: Negative for swollen nodes, abnormal bleeding, and unusual bruising, 07:56 All other systems are negative, Exam: 07:56 Constitutional: This is a well developed, well nourished patient who is awake, alert, sp3 and in no acute distress. Head/Face: Normocephalic, atraumatic. Eyes: Pupils equal round and reactive to light, extra-ocular motions intact. Lids and lashes normal. Conjunctiva and sclera are non-icteric and not injected. Cornea within normal limits. Periorbital areas with no swelling, redness, or edema. Neck: Trachea midline, no thyromegaly or masses palpated, and no cervical lymphadenopathy. Supple, full range of motion without nuchal rigidity, or vertebral point tenderness. No Meningismus. Chest/axilla: Normal chest wall appearance and motion. Nontender with no deformity. No lesions are appreciated. Cardiovascular: Regular rate and rhythm with a normal S1 and S2. No gallops, murmurs, or rubs. Normal PMI, no JVD. No pulse deficits. Respiratory: Lungs have equal breath sounds bilaterally, clear to auscultation and percussion. No rales, rhonchi or wheezes noted. No increased work of breathing, no retractions or nasal flaring. Abdomen/GI: Soft, non-tender, with normal bowel sounds. No distension or tympany. No guarding or rebound. No evidence of tenderness throughout. Back: No spinal tenderness. No costovertebral tenderness. Full range of motion. Skin: Warm, dry with normal turgor. Normal color with no rashes, no lesions, and no evidence of cellulitis. MS/ Extremity: Pulses equal, no cyanosis. Neurovascular intact. Full, normal range of motion. Neuro: Awake and alert, GCS 15, oriented to person, place, time, and situation. Cranial nerves II-XII grossly intact. Motor strength 5/5 in all extremities. Sensory grossly intact. Cerebellar exam normal. Normal gait. Psych: Awake, alert, with orientation to person, place and time. Behavior, mood, and affect are within normal limits. 07:56 ECG was reviewed by the Attending Physician. EKG demonstrates normal sinus rhythm at 81 bpm with normal intervals, normal QRS, normal axis, nonspecific diffuse ST's ST changes without evidence of acute ischemia. Vital Signs: 07:46 BP 110 / 50; Pulse 77; Resp 18; Temp 97.2; Pulse Ox 94% ; Weight 113.85 kg; Height 5 ll1 ft. 4 in. ; Pain 9/10; 08:03 BP 112 / 53; Pulse 74; Resp 18; Pulse Ox 94% on R/A; Pain 9/10; ll1 08:45 BP 123 / 60; Pulse 76; Resp 16; Pulse Ox 94% on 2 lpm NC; ll1 07:46 Body Mass Index 43.08 (113.85 kg, 162.56 cm) ll1 07:46 Pain Scale: Adult ll1 08:03 Pain Scale: Adult ll1 MDM: 07:45 Medical Screening Exam initiated sp3 07:57 Data reviewed: vital signs, nurses notes, old medical records, lab test result(s), EKG, sp3 radiologic studies. ED course: 49-year-old female with PMH above including cardiac history now presents with recurrent chest pain. Patient states at her last appointment her hotel sales manager wanted her to "go see another hotel sales manager specialist for further testing". She is unable to explain further. I am thinking that it was either an EP hotel sales manager or an cast shell grinder if her primary hotel sales manager does not do catheterization. Regardless we do not have access to those records. Currently today she is having chest pain though is not in any acute distress. We will administer nitroglycerin and work patient up with diagnostic labs, chest x-ray and repeat EKGs as needed. Given her cardiac history, patient will likely need a 23-hour observation and cardiology consultation here at our facility for further evaluation.. 02/04 07:46 Order name: Basic Metabolic Panel; Complete Time: 08:25 sp3 02/04 07:46 Order name: CBC with Diff; Complete Time: 08:25 sp3 02/04 07:46 Order name: LFT's; Complete Time: 08:25 sp3 02/04 07:46 Order name: Magnesium; Complete Time: 08:25 sp3 02/04 07:46 Order name: NT PRO-BNP; Complete Time: 08:25 sp3 02/04 07:46 Order name: PT-INR; Complete Time: 08:25 sp3 02/04 07:46 Order name: Troponin HS; Complete Time: 08:25 sp3 02/04 09:08 Order name: D-Dimer EDMS 02/04 09:08 Order name: Urinalysis w/ reflexes EDMS 02/04 09:08 Order name: Basic Metabolic Panel EDMS 02/04 09:08 Order name: Basic Metabolic Panel EDMS 02/04 09:08 Order name: Basic Metabolic Panel EDMS 02/04 09:08 Order name: CBC with Automated Diff EDMS 02/04 09:08 Order name: CBC with Automated Diff EDMS 02/04 09:08 Order name: CBC with Automated Diff EDMS 02/04 09:08 Order name: Magnesium EDMS 02/04 09:08 Order name: Magnesium EDMS 02/04 09:08 Order name: Magnesium EDMS 02/04 09:08 Order name: NT PRO-BNP EDMS 02/04 09:08 Order name: NT PRO-BNP EDMS 02/04 09:08 Order name: Troponin High Sensitivity EDMS 02/04 09:08 Order name: Troponin High Sensitivity EDMS 02/04 09:08 Order name: Troponin High Sensitivity EDMS 02/04 09:08 Order name: Troponin High Sensitivity EDMS 02/04 09:09 Order name: Urinalysis w/ reflexes EDMS 02/04 07:46 Order name: XRAY Chest (1 view); Complete Time: 08:46 sp3 02/04 09:09 Order name: Echo with Doppler EDMS 02/04 09:09 Order name: Echo with Doppler EDMS 02/04 09:08 Order name: CONS Physician Consult EDMS 02/04 07:46 Order name: Cardiac monitoring; Complete Time: 07:48 sp3 02/04 07:46 Order name: EKG - Nurse/Tech; Complete Time: 07:48 sp3 02/04 07:46 Order name: IV Saline Lock; Complete Time: 07:48 sp3 02/04 07:46 Order name: Labs collected and sent; Complete Time: 07:48 sp3 02/04 07:46 Order name: O2 Per Protocol; Complete Time: 07:48 sp3 02/04 07:46 Order name: O2 Sat Monitoring; Complete Time: 07:48 sp3 Administered Medications: 08:04 Drug: Nitroglycerin Sublingual 0.4 mg Sublingual once Route: Sublingual; ll1 08:47 Follow up: Response: No adverse reaction ll1 Disposition Summary: 02/05/24 08:29 Hospitalization Ordered Notes: Hospitalization Status: Observation sp3 Location: Telemetry/MedSurg (observation) sp3 Condition: Stable sp3 Problem: an acute exacerbation sp3 Symptoms: have worsened sp3 Bed/Room Type: Standard sp3 Provider: Sami Dixon(02/05/24 08:43) sp3 Room Assignment: [facility](02/05/24 09:16) eb Diagnosis - Chest pain, unspecified sp3 Forms: - Medication Reconciliation Form sp3 - SBAR form sp3 - Leadership Thank You Letter sp3 Signatures: Dispatcher [employer] EDChrissie Roman Lynsay, RN RN ll1 Radha Mccall MD MD sp3 Corrections: (The following items were deleted from the chart) 08:43 08:29 Gómez Low sp3 sp3 09:16 08:29 sp3 eb
--- NOTE | 2024-02-05 08:29 | ER ---
Nurse's Notes [facility] Name: Skye Song Age: 49 yrs Sex: Female : 1975 Arrival Date: 02/05/2024 Time: 07:38 Bed 6 Private MD: Diagnosis: Chest pain, unspecified Presentation: 02/04 07:46 Chief complaint: Patient states: CP and SOB off/on for 2 days. Dry cough started 1 hour ll1 HARD CANDY SPINNER. N0 fever. N/V x 2 this morning. Coronavirus screen: Client denies travel out of the [place] in the last 14 days. cough unrelated to allergies, difficulty breathing, muscle pain, nausea, vomiting. Client presents with at least one sign or symptom that may indicate coronavirus-19. Standard/surgical mask placed on the client. Ebola Screen: Patient denies travel to an Ebola-affected area in the 21 days before illness onset. Initial Sepsis Screen: Does the patient meet any 2 criteria? No. Patient's initial sepsis screen is negative. Does the patient have a suspected source of infection? No. Patient's initial sepsis screen is negative. Risk Assessment: Do you want to hurt yourself or someone else? Patient reports no desire to harm self or others. Onset of symptoms was February 04, 2024. 07:46 Method Of Arrival: Ambulatory ll1 07:46 Acuity: NIDA 3 ll1 CONSUMER EDUCATOR: 08:47 LMP N/A - control method, Not ll1 Historical: - Allergies: 07:45 Iodine; ll1 07:45 Naproxen; ll1 07:45 pecan; ll1 07:45 tramadol; ll1 - PMHx: 07:45 a flutter; Anxiety; BRAIN TUMOR; graves disease; Hydrocephalus; Migraines; Seizures; ll1 - PSHx: 07:45 Appendectomy; Brain sx; Cholecystectomy; eye sx; CASH POSTING CLERK shunt; ll1 - Immunization history:: Adult Immunizations up to date. - Infectious Disease History:: Denies. - Social history:: Smoking status: Patient denies any tobacco usage or history of. Screenin:06 [facility] ED Fall Risk Assessment (Adult) History of falling in the last 3 months, ll1 including since admission No falls in past 3 months (0 pts) Confusion or Disorientation No (0 pts) Intoxicated or Sedated No (0 pts) Impaired Gait Yes (1 pt) Mobility Assist Device Used Yes (1 pt) Altered Elimination No (0 pt) Score/Fall Risk Level 0 - 2 = Low Risk Maintained a safe environment, Hourly rounding (assess needs \T\ fall precautionary measures) done. Abuse screen: Denies threats or abuse. Nutritional screening: No deficits noted. Tuberculosis screening: No symptoms or risk factors identified. Assessment: 07:50 General: Appears distressed, uncomfortable, Behavior is cooperative, appropriate for ll1 age, anxious. Pain: Complains of pain in chest Pain does not radiate. Quality of pain is described as crampy, squeezing, Pain began 1 day ago. Cardiovascular: Reports chest pain, shortness of breath. GI: Reports nausea, vomiting. 08:46 Reassessment: Admission doctor at . ll1 Vital Signs: 07:46 BP 110 / 50; Pulse 77; Resp 18; Temp 97.2; Pulse Ox 94% ; Weight 113.85 kg; Height 5 ll1 ft. 4 in. ; Pain 9/10; 08:03 BP 112 / 53; Pulse 74; Resp 18; Pulse Ox 94% on R/A; Pain 9/10; ll1 08:45 BP 123 / 60; Pulse 76; Resp 16; Pulse Ox 94% on 2 lpm NC; ll1 07:46 Body Mass Index 43.08 (113.85 kg, 162.56 cm) ll1 07:46 Pain Scale: Adult ll1 08:03 Pain Scale: Adult ll1 ED Course: 07:39 Patient arrived in ED. ra3 07:43 Radha Mccall MD is Attending Physician. sp3 07:45 Arm band placed on Patient placed in an exam room, on a stretcher. ll1 07:48 Triage completed. ll1 07:48 Yamil Ledezma, CALEB is Primary Nurse. ll1 07:53 Initial lab(s) drawn, by me, sent to lab. Missed attempt(s): 22 gauge in right iw antecubital area. Bleeding controlled, band aid applied, catheter tip intact. 08:06 Patient has correct armband on for positive identification. Bed in low position. 1 Provided Education on: ER procedures and process. Client placed on continuous cardiac and pulse oximetry monitoring. NIBP monitoring applied. child monitor on. 08:28 Gómez Low is Hospitalizing Provider. sp3 08:32 XRAY Chest (1 view) In Process Unspecified. EDMS 08:43 Sami Dixon MD is Hospitalizing Provider. sp3 08:46 No provider procedures requiring assistance completed. Patient admitted, IV remains in ll1 place. Oxygen administration via nasal cannula \T\ 2L/min. 09:02 Inserted saline lock: 22 gauge in left forearm, using aseptic technique. Flushed with em1 10 mL NS. Administered Medications: 08:04 Drug: Nitroglycerin Sublingual 0.4 mg Sublingual once Route: Sublingual; ll1 08:47 Follow up: Response: No adverse reaction ll1 Medication: 08:06 VIS not applicable for this client. 1 Outcome: 08:29 Decision to Hospitalize by Provider. sp3 08:46 Admitted to Med/surg ll1 08:46 Condition: stable 08:46 Instructed on the need for admit, 09:48 Patient left the ED. 1 Signatures: Dispatcher [employer] EDMS Hollie Marks, RN Ino Hua em1 Yamil Ledezma RN RN 1 Radha Mccall MD MD sp3 Kylah Coleman ra3
--- NOTE | 2024-02-05 08:44 | RAD REPORT ---
EXAMINATION: ONE VIEW CHEST XR CLINICAL INDICATION: Female, 49 years old.CHEST PAIN TECHNIQUE: 1 View, AP supine, X-ray of the chest was performed. [id number]. COMPARISON: No prior exam. FINDINGS: Lungs and pleura: Clear lungs. No effusion. Heart and mediastinum: Normal heart size. Unremarkable mediastinal contours. Osseous structures: No acute abnormality. Tubes/lines: RISK MANAGEMENT MANAGER shunt catheter tubing overlying the right hemithorax. Other: None. IMPRESSION: No acute intrathoracic abnormality.
--- NOTE | 2024-02-05 09:00 | P.HP ---
Certification for Inpatient Patient admitted to: Observation With expected LOS: <2 Midnights Practitioner: I am a practitioner with admitting privileges, knowledge of patient current condition, hospital course, and medical plan of care. Services: Services provided to patient in accordance with Admission requirements found in Title 42 Section 412.3 of the Code of Federal Regulations Patient History Date of Service: 02/05/24 Reason for admission: Chest pain History of Present Illness: 49-year-old female with a past medical history of atrial flutter;loop recorder, Anxiety; BRAIN TUMOR; TRIMMING DEPARTMENT BLOCKER shunt, graves disease; Hydrocephalus; Migraines; Seizures presents to the emergency room for chest pain. She reports chest pain started prior to arrival. She reports chest pain radiates to her left arm rated 5/10. Relieved with morphine in the emergency room. She reports having a loop recorder, she reports sees cardiology at [facility]. She denied shortness of breath, cough, congestion, fever. Syncope. Plan to admit for chest pain rule out PR with cardiology to consult ER evaluation, EKG, normal sinus rhythm at 81 bpm with normal intervals, normal QRS, normal axis, nonspecific diffuse ST changes . BP 110 / 50; Pulse 77; Resp 18; Temp 97.2; Pulse Ox 94% ; Weight 113.85 kg; Height 5 ll1 ft. 4 in. ; Pain 9/10; 6 Body Mass Index 43.08 (113.85 kg, 162.56 cm), serial troponins are negative, mild hypokalemia 3.4, CBC unremarkable Tubes/lines: TRIMMING DEPARTMENT BLOCKER shunt catheter tubing overlying the right hemithorax. Other: None. IMPRESSION: No acute intrathoracic abnormality. Allergies naproxen Allergy (Intermediate, Verified 08/04/21 14:56) Unknown tramadol Allergy (Intermediate, Verified 08/04/21 14:55) Hives Home Medications: Montelukast Sodium [Singulair] 10 mg PO DAILY 08/04/21 Pregabalin [Lyrica] 25 mg PO DAILY 08/04/21 Propranolol [Inderal*] 10 mg PO BID 08/04/21 SUMAtriptan succinate [Sumatriptan Succinate] 1 tab PO DAILY PRN 08/04/21 Sertraline [Zoloft] 50 mg PO DAILY 08/04/21 hydroCHLOROthiazide [Hydrochlorothiazide] 25 mg PO DAILY 08/04/21 - Past Medical/Surgical History Diabetic: No -: Graves' disease -: Brain tumor -: Anxiety -: Migraine -: Seizures -: TRIMMING DEPARTMENT BLOCKER shunt -: TRIMMING DEPARTMENT BLOCKER shunt -: Brain surgery -: Appendectomy -: Cholecystectomy Psychosocial/ Personal History: Patient lives at home with her daughter. - Family History Mother -: Cancer Father -: Blood disorders - Social History Alcohol use: No CD- Drugs: No Caffeine use: No Review of Systems 10-point ROS is otherwise unremarkable General: As per HPI Physical Examination - Physical Exam General: Alert, Oriented x3, Mild distress HEENT: Atraumatic, Normocephalic Neck: Supple, 2+ carotid pulse no bruit Respiratory: Clear to auscultation bilaterally, Normal air movement Cardiovascular: Normal pulses, Regular rate/rhythm Capillary refill: <2 Seconds Gastrointestinal: Normal bowel sounds, Soft and benign Musculoskeletal: No clubbing, No swelling Integumentary: No breakdown, No significant lesion Neurological: Normal speech, Normal strength at 5/5 x4 extr, Cranial nerves 3-12 intact - Studies Laboratory Data (last 24 hrs) 02/05/24 02/05/24 02/05/24 07:53 07:53 07:53 WBC 9.10 RBC 5.38 H Hgb 15.0 Hct 44.5 MCV 82.7 MCH 27.8 MCHC 33.7 RDW 15.5 H Plt Count 402 MPV 7.0 L Neutrophils % 48.6 Lymphocytes % 42.3 Monocytes % 5.6 Eosinophils % 2.8 Basophils % 0.7 Absolute Neutrophils 4.4 Absolute Lymphocytes 3.8 Absolute Monocytes 0.5 Absolute Eosinophils 0.3 Absolute Basophils 0.1 PT 11.4 INR 1.02 Sodium 137 Potassium 3.4 L Chloride 105 Carbon Dioxide 26 Anion Gap 9.4 BUN 13 Creatinine 0.82 Est GFR (CKD-EPI) 88 L Glucose 141 H Calcium 8.9 Magnesium 2.1 Total Bilirubin 0.4 Direct Bilirubin < 0.2 Indirect Bilirubin 0.2 AST 15 ALT 27 Alkaline Phosphatase 148 H Troponin I High Sens 24.2 NT-Pro-B Natriuret Pep 34 Serum Total Protein 7.2 Albumin 3.3 L Globulin 3.9 H Albumin/Globulin Ratio 0.8 L Assessment and Plan - Problems (Diagnosis) (1) Chest pain Current Visit: Yes Status: Acute (2) Morbid obesity Current Visit: Yes Status: Acute (3) Hypokalemia Current Visit: No Status: Acute (4) Brain tumor Current Visit: No Status: Chronic (5) S/P TRIMMING DEPARTMENT BLOCKER shunt Current Visit: No Status: Chronic - Plan Admit to [facility] Cardiology consult, trend telemetry Trend troponin, BNP, D-dimer Hypokalemia trend electrolytes replace as needed Resume p.o. antihypertensives, antilipid, aspirin, As needed analgesia, antiemetics, 40 Lovenox Cardiac diet, N.p.o. after mid night Full code Discharge Plan: Home - Advance Directives Does patient have a Living Will: No Does patient have a Durable POA for Healthcare: No - Code Status/Comfort Care Code Status: Full Code Critical Care: No Time Spent Managing Pts Care (In Minutes): 55
[2024-02-05] MEDS ORDERED: ALPRAZOLAM 0.25 MG TABLET PO PRN (09:01)
[2024-02-05] MEDS: FUROSEMIDE 40 MG/4 ML VIAL IV SCH (10:29)
[2024-02-05] MEDS: ONDANSETRON 4 MG/2 ML VIAL IV PRN (10:30)
[2024-02-05] MEDS: MORPHINE 4 MG/ML SYR IV PRN (10:30)
[2024-02-05 10:53] VITALS: BMI 43.0
[2024-02-05] MEDS: NITROGLYCERIN 0.4 MG/TAB SL PRN (11:16)
[2024-02-05 12:14] LABS: Specific Gravity 1.006 (1.005-1.030); Sqamous Epithelial <5 /HPF (None Seen); Urine Bacteria <20 /HPF (<20); Urine Bilirubin NEGATIVE (Negative); Urine Blood 1+ (Negative); Urine Clarity Turbid (Clear); Urine Color Colorless (Yellow); Urine Culture Reflex Order NOT NEEDED; Urine Glucose NEGATIVE (Negative); Urine Ketones NEGATIVE (Negative); Urine Microscopic Reflex YN ORDER UMIC; Urine Mucus Slight /HPF (None Seen); Urine Nitrite NEGATIVE (Negative); Urine Protein NEGATIVE (Negative); Urine RBC <5 /HPF (None Seen); Urine Urobilinogen Normal (Normal); Urine pH 6.5 (5.0-7.0)
[2024-02-05] MEDS: PREGABALIN 75 MG CAP PO SCH (12:52)
[2024-02-05] MEDS: FENOFIBRATE 48 MG TAB PO SCH (12:53)
[2024-02-05] MEDS: FENTANYL CITR 100 MCG/2 ML IV ONE ×2 (13:00→19:32)
[2024-02-05] MEDS: hydroCHLOROthiazide 25 MG TAB PO SCH (13:11)
[2024-02-05] MEDS: levETIRAcetam 500 MG TAB PO SCH (13:11)
[2024-02-05] MEDS: DILTIAZEM HCL 60 MG TAB PO SCH (16:08)
[2024-02-05] MEDS: MONTELUKAST 10 MG TAB PO SCH (21:22)
[2024-02-06 05:44] LABS: Absolute Eosinophils 0.2 K/uL (0-0.5); Absolute Lymphocytes (CBC) 2.8 K/uL (0.7-4.9); Absolute Monocytes 0.5 K/uL (0.1-1.3); Absolute Neutrophil 3.4 K/uL (1.8-8.0); Basophils % 0.6 % (0-1.3); Eosinophils % 3.4 % (0-4.4); Hematocrit 40.8 % (36.0-45.0); Hemoglobin 14.1 g/dL (12.0-15.0); Lymphocytes % 40.4 % (15.3-44.8); MCH 28.6 pg (27.0-35.0); MCHC 34.6 g/dL (32.0-36.0); MCV 82.7 fL (80-100); MPV 6.8 fL (7.6-11.3); Monocytes % 7.2 % (3.3-12.3); Neutrophils % 48.4 % (41.7-73.7); Nucleated Red Blood Cells % 0.2 % (0-0); Platelets 364 thou/uL (152-406); RBC Red Blood Cell Count 4.93 M/uL (3.86-4.86); Red Cell Distribution Width 15.1 % (12.1-15.2)
[2024-02-06 06:06] LABS: Magnesium 2.2 mg/dL (1.6-2.4)
[2024-02-06] MEDS: POTASSIUM 25 MEQ EFFERV TAB PO ONE ×2 (06:58→16:00)
[2024-02-06] MEDS: ENOXAPARIN 40 MG/0.4 ML SQ SCH (08:58)
[2024-02-06] MEDS: FENOFIBRATE 48 MG TAB PO SCH (08:59)
--- NOTE | 2024-02-06 11:26 | P.CNS ---
Date of Consult: 02/06/24 Chief Complaint: Chest pain History of Present Illness: Patient with PMH of questionable flutter, presented with cehst pain, mid chest, spastic in nature, has been going on for two days, denies any other cardiac symptoms. Allergies naproxen Allergy (Intermediate, Verified 02/05/24 15:43) Unknown tramadol Allergy (Intermediate, Verified 02/05/24 15:43) Hives Home medications list reviewed: Yes Home Medications: Pregabalin [Lyrica] 75 mg PO DAILY 08/04/21 SUMAtriptan succinate [Sumatriptan Succinate] 50 mg PO DAILY PRN 08/04/21 Sertraline [Zoloft] 100 mg PO DAILY 08/04/21 hydroCHLOROthiazide [Hydrochlorothiazide] 25 mg PO DAILY 08/04/21 Benzonatate [Tessalon Perle*] 1 tab PO DAILY PRN 02/05/24 Diltiazem Tab [Cardizem Tab*] 30 mg PO TID 02/05/24 Fenofibrate [Tricor] 54 mg PO DAILY 02/05/24 Meclizine HCl 1 tab PO DAILY PRN 02/05/24 Ondansetron [Ondansetron Odt] 1 tab PO DAILY PRN 02/05/24 Promethazine Tab [Phenergan*] 1 tab PO DAILY PRN 02/05/24 levETIRAcetam [Keppra*] 1 tab PO TID 02/05/24 methocarbamoL [Methocarbamol] 1 tab PO DAILY PRN 02/05/24 - Past Medical/Surgical History Diabetic: No -: Graves' disease -: Brain tumor -: Anxiety -: Migraine -: Seizures -: SEISMIC PROSPECTING SUPERVISOR shunt -: SEISMIC PROSPECTING SUPERVISOR shunt -: Brain surgery -: Appendectomy -: Cholecystectomy Psychosocial/ Personal History: Patient lives at home with her daughter. - Family History Mother Medical History: Cancer Notes: Breast CA Father Medical History: Blood disorders Notes: Blood clots - Social History Smoking Status: Unknown if ever smoked Alcohol use: No CD- Drugs: No Caffeine use: No Place of Residence: Home Review of Systems 10-point ROS is otherwise unremarkable Physical Examination Temp Pulse Resp BP Pulse Ox 97.8 F 61 14 104/50 L 97 02/06/24 08:00 02/06/24 08:00 02/06/24 08:00 02/06/24 08:00 02/06/24 08:00 General: Alert, In no apparent distress HEENT: Atraumatic, PERRLA, Mucous membr. moist/pink, EOMI, Sclerae nonicteric Neck: Supple, 2+ carotid pulse no bruit, No LAD, Without JVD or thyroid abnormality Respiratory: Clear to auscultation bilaterally, Normal air movement Cardiovascular: Regular rate/rhythm, Normal S1 S2 Gastrointestinal: Normal bowel sounds, No tenderness Musculoskeletal: No tenderness Integumentary: No rashes Neurological: Normal gait, Normal speech, Normal tone, Normal affect Lymphatics: No axilla or inguinal lymphadenopathy - Problems (1) Atrial flutter Current Visit: Yes Status: Acute Plan: questionable, patient is wearing a loop recorder, continue to follow up with EP cardiology (2) HTN (hypertension) Current Visit: Yes Status: Acute Plan: continue current medications (3) Chest pain Current Visit: Yes Status: Acute Plan: EKG is normal troponin negative x 3 Echo outpatient stress test
--- NOTE | 2024-02-06 12:15 | EKG ---
Test Date: 2024-02-05 Test Time: 07:46:55 Special Needs Librarian: HILARY MEASUREMENT RESULTS: Intervals: Rate: 81 NE: 166 QRSD: 74 QT: 404 QTc: 469 [place]: P: 36 NE: 166 QRS: 17 T: 38 INTERPRETIVE STATEMENTS: Normal sinus rhythm Cannot rule out Anterior infarct, age undetermined Abnormal ECG Compared to ECG 11/03/2023 18:12:30 Myocardial infarct finding now present Electronically Signed On 02-06-24 12:13:16 WATER USE INSPECTOR by Mehdi Kelley
[2024-02-06] MEDS: METHYLPREDNISOLONE 125 MG INJ IV ONE (12:48)
[2024-02-06] MEDS: DIPHENHYDRAMINE 50 MG/ML VIAL IV ONE (12:48)
--- NOTE | 2024-02-06 13:16 | RAD REPORT ---
EXAMINATION: CT CHEST WITHOUT CONTRAST CLINICAL INDICATION: chest pain; loop recorder TECHNIQUE: Routine CT scan of the chest without intravenous contrast. One or more of the following do se reduction techniques were used: Automated exposure control, adjustment of the mA and/or kV according to patient size, and/or iterative reconstruction. Unless otherwise specified, incidental fi ndings do not require dedicated imaging follow-up. COMPARISON: No prior exam. FINDINGS: LOWER NECK: Visualized thyroid gland and soft tissues are normal. LUNGS: The lungs are clear. No evidence of airspace or interstitial process. No worrisome nodules. PLEURA: No pleural effusion. No pneumothorax. . MEDIASTINUM AND LYMPH NODES: No mediastinal mass or fluid collection. Normal size mediastinal, hilar, and axillary lymph nodes. OSSEOUS STRUCTURES AND CHEST WALL: Intact. No unusual or unexpected finding at the site of anterior m idline chest loop recorder implant. UPPER ABDOMEN: No significant abnormalities. Cholecystectomy clips. IMPRESSION: No acute or concerning intrathoracic findings. Examination limited by lack of IV contrast.
[2024-02-06] MEDS: SERTRALINE HCL 100 MG TAB PO SCH (13:20)
[2024-02-06] MEDS: ALPRAZOLAM 0.25 MG TABLET PO PRN (13:20)
[2024-02-06 14:14] LABS: Potassium 3.2 mEq/L (3.5-5.1); Troponin High Sensitivity 21.5 pg/mL (<58.9)
[2024-02-06] MEDS: dexAMETHasone 4 MG/ML VIAL IV ONE (16:00)
[2024-02-06] MEDS: ACETAMINOPHEN 500 MG TAB PO ONE (16:01)
[2024-02-06] MEDS ORDERED: ALPRAZOLAM 0.25 MG TABLET PO SCH (21:00)
[2024-02-07 00:09] VITALS: O2SAT 96
[2024-02-07] MEDS: ACETAMINOPHEN 500 MG TAB PO PRN (05:20)
[2024-02-07 05:56] LABS: Absolute Basophils 0.1 K/uL (0-0.5); Absolute Lymphocytes (CBC) 2.2 K/uL (0.7-4.9); Absolute Monocytes 0.4 K/uL (0.1-1.3); Absolute Neutrophil 7.2 K/uL (1.8-8.0); Basophils % 0.6 % (0-1.3); Eosinophils % 0.1 % (0-4.4); Hematocrit 41.5 % (36.0-45.0); Hemoglobin 14.3 g/dL (12.0-15.0); Lymphocytes % 22.1 % (15.3-44.8); MCH 28.1 pg (27.0-35.0); MCHC 34.4 g/dL (32.0-36.0); MCV 81.9 fL (80-100); Monocytes % 4.1 % (3.3-12.3); Neutrophils % 73.1 % (41.7-73.7); Nucleated Red Blood Cells % 0.1 % (0-0); Platelets 393 thou/uL (152-406); RBC Red Blood Cell Count 5.07 M/uL (3.86-4.86); Red Cell Distribution Width 14.8 % (12.1-15.2)
[2024-02-07 06:15] LABS: Anion Gap 6.7 mEq/L (5.0-15.0); Magnesium 2.4 mg/dL (1.6-2.4); Phosphorus 3.1 mg/dL (2.5-4.9); Potassium 3.7 mEq/L (3.5-5.1)
--- NOTE | 2024-02-07 12:21 | EKG ---
Test Date: 2024-02-06 Test Time: 12:54:14 Mortgage Loan Assistant: GOGO MEASUREMENT RESULTS: Intervals: Rate: 65 MS: 182 QRSD: 80 QT: 412 QTc: 428 [place]: P: 29 MS: 182 QRS: 21 T: 32 INTERPRETIVE STATEMENTS: Normal sinus rhythm Normal ECG Compared to ECG 02/05/2024 20:24:50 No significant changes Electronically Signed On 02-07-24 12:17:14 DIRECTOR OF ENVIRONMENTAL SERVICES by Mehdi Kelley
--- NOTE | 2024-02-07 12:23 | EKG ---
Test Date: 2024-02-05 Test Time: 20:24:50 Chinese Instructor: DOMONIQUE MEASUREMENT RESULTS: Intervals: Rate: 67 [place]: 190 QRSD: 80 QT: 434 QTc: 458 [place]: P: 43 [place]: 190 QRS: 24 T: 31 INTERPRETIVE STATEMENTS: Normal sinus rhythm Normal ECG Compared to ECG 02/05/2024 20:22:13 No significant changes Electronically Signed On 02-07-24 12:17:56 COMPANION CAREGIVER by Mehdi Kelley
--- NOTE | 2024-02-07 12:23 | EKG ---
Test Date: 2024-02-05 Test Time: 20:22:13 Metal Riveter: DOMONIQUE MEASUREMENT RESULTS: Intervals: Rate: 65 [place]: 194 QRSD: 82 QT: 436 QTc: 453 [place]: P: 34 TN: 194 QRS: 22 T: 23 INTERPRETIVE STATEMENTS: Normal sinus rhythm Normal ECG Compared to ECG 02/05/2024 07:46:55 Myocardial infarct finding no longer present Electronically Signed On 02-07-24 12:17:58 WALKING DRAGLINE OILER by Mehdi Kelley
[2024-02-07 12:42] VITALS: BP 108/60; TEMP 98.3
--- NOTE | 2024-02-07 12:42 | RAD REPORT ---
EXAM: CT brain without contrast HISTORY: Headache COMPARISON: 2022 TECHNIQUE: Multiple contiguous axial images were obtained and a CT of the brain without contrast.. Sagittal and coronal reconstruction performed. Automated exposure control, adjustment of the mA and/or kV according to patient size, and/or iterative reconstruction. Unless otherwise specified, incidental f indings do not require dedicated imaging follow-up FINDINGS: An intracranial bleed is not seen Stable calcification along the posterior left frontal convexity presumably a meningioma. No surroundi ng edema Right CHORE TENDER shunt enters the right lateral ventricle. It is unchanged in position. Stable dilatation fou rth ventricle. Third and lateral ventricles are normal caliber. No extra-axial fluid collection. Gliosis within the cerebellum unchanged.. Suboccipital craniotomy Small amount of fluid within the sinuses could indicate acute sinusitis. IMPRESSION: Stable dilatation of the fourth ventricle with CHORE TENDER shunt in place. Acute sinusitis suspected If the patient's symptoms persist MRI of the brain would be recommended.
[2024-02-07] MEDS: HYDROCODONE/APAP 10/325 TAB PO PRN (13:01)
--- NOTE | 2024-02-08 09:14 | ECHO ---
HEIGHT: 5 ft 4 in WEIGHT: 251 lb 0 oz DATE OF STUDY: 02/06/[address]: Bettina Grace 2-DIMENSIONAL: YES M.MODE: YES DOPPLER: YES COLOR FLOW: YES TDS: NO PORTABLE: YES DEFINITY: NO BUBBLE STUDY: NO DIAGNOSIS: CHEST PAIN CARDIAC HISTORY: CATHERIZATION: SURGERY: PROSTHETIC VALVE: PACEMAKER: MEASUREMENTS (cm) DIASTOLIC (NORMALS) SYSTOLIC (NORMALS) IVSd 0.9 (0.6-1.2) LA Diam 3.9 (1.9-4.0) LVEF 60-65% LVIDd 4.0 (3.5-5.7) LVIDs 2.7 (2.0-3.5) %FS 32% LVPWd 0.9 (0.6-1.2) Ao Diam 3.1 (2.0-3.7) 2 DIMENSIONAL ASSESSMENT: RIGHT ATRIUM: NORMAL LEFT ATRIUM: NORMAL RIGHT VENTRICLE: NORMAL LEFT VENTRICLE: NORMAL TRICUSPID VALVE: TRACE TRICUSPID REGURGITATION MITRAL VALVE: TRACE MITRAL REGURGITATION PULMONIC VALVE: NORMAL AORTIC VALVE: NORMAL PERICARDIAL EFFUSION: NONE AORTIC ROOT: NORMAL LEFT VENTRICULAR WALL MOTION: NORMAL. DOPPLER/COLOR FLOW: NORMAL. COMMENTS: 1. NORMAL LEFT VENTRICULAR SYSTOLIC FUNCTION. LEFT VENTRICULAR EJECTION FRACTION 60-65%. NORMAL WALL MOTION. 1. NORMAL DIASTOLIC FUNCTION. TECHNOLOGIST: GREY ARMIJO
== END 2024-02-07 16:26 | disposition home or self-care (01) | DRG 309 ==
LOC: ER 07:38 → ERHOLD 09:00 → 2ND 09:26 → OBSVTOIN 02-07 11:49
PROVIDERS: ADMIT Internal Medicine Sleep Medicine; ATTEND Hospitalist
DX: I48.92 Unspecified atrial flutter (principal); Z68.41 Body mass index [BMI] 40.0-44.9, adult; E66.01 Morbid (severe) obesity due to excess calories; E87.6 Hypokalemia; Z88.5 Allergy status to narcotic agent; Z98.2 Presence of cerebrospinal fluid drainage device; Z88.8 Allergy status to other drugs, medicaments and biological substances; Z90.49 Acquired absence of other specified parts of digestive tract; Z79.899 Other long term (current) drug therapy
CPT/HCPCS: 36415; 70450; 71045; 71250; 80048; 80076; 81001; 83735; 83880; 84100; 84132; 84484; 85025; 85379; 85610; 93005; 93306; 99285; G0378; J1100; J1650; J1940; J2405; J3010

== ENCOUNTER 2024-07-22 23:23 | Emergency (ER) | payer MEDICAID ==
[2024-07-23 00:29] LABS: Absolute Basophils 0.1 K/uL (0-0.5); Absolute Eosinophils 0.4 K/uL (0-0.5); Absolute Lymphocytes (CBC) 4.4 K/uL (0.7-4.9); Absolute Monocytes 0.9 K/uL (0.1-1.3); Absolute Neutrophil 6.3 K/uL (1.8-8.0); Basophils % 0.9 % (0-1.3); Hematocrit 44.9 % (36.0-45.0); Hemoglobin 15.3 g/dL (12.0-15.0); Lymphocytes % 36.4 % (15.3-44.8); MCH 26.8 pg (27.0-35.0); MCV 78.8 fL (80-100); MPV 7.2 fL (7.6-11.3); Monocytes % 7.5 % (3.3-12.3); Neutrophils % 52.2 % (41.7-73.7); Nucleated Red Blood Cells % 0.3 % (0-0); Platelets 432 thou/uL (152-406); RBC Red Blood Cell Count 5.69 M/uL (3.86-4.86); Red Cell Distribution Width 13.7 % (12.1-15.2)
[2024-07-23 00:39] LABS: PT Prothrombin Time 11.9 SECONDS (10-13.0); Protime INR 1.05
[2024-07-23 00:41] LABS: Specific Gravity 1.011 (1.005-1.030)
[2024-07-23 00:47] LABS: Specific Gravity 1.011 (1.005-1.030); Sqamous Epithelial 20-50 /HPF (None Seen); Urine Bacteria <20 /HPF (<20); Urine Bilirubin NEGATIVE (Negative); Urine Blood Negative (Negative); Urine Clarity Extremely Turbid (Clear); Urine Color Light-Yellow (Yellow); Urine Crystals Unidentified Few /HPF (None Seen); Urine Glucose NEGATIVE (Negative); Urine Ketones NEGATIVE (Negative); Urine Micro Reflex YN NO BILL MICROSCOPIC; Urine Mucus Slight /HPF (None Seen); Urine Nitrite NEGATIVE (Negative); Urine Protein NEGATIVE (Negative); Urine RBC <5 /HPF (None Seen); Urine Urobilinogen Normal (Normal); Urine pH 5.5 (5.0-7.0)
[2024-07-23 00:51] LABS: ALT/SGPT 28 U/L (13-56); Albumin 3.6 g/dL (3.4-5.0); Albumin/Globulin Ratio 0.9 (1.1-1.8); Alkaline Phosphatase 123 U/L (45-117); Anion Gap 8.1 mEq/L (5.0-15.0); BUN Blood Urea Nitrogen 15 mg/dL (7-18); Bicarbonate 29 mEq/L (21-32); Bilirubin Total 0.4 mg/dL (0.2-1.0); Glomerular Filtration Rate 75 ml/min (=/>90); Glucose Level 112 mg/dL (74-106); Magnesium 2.2 mg/dL (1.6-2.4); Potassium 3.1 mEq/L (3.5-5.1); Protein, Total 7.6 g/dL (6.4-8.2); Sodium Level 134 mEq/L (136-145); Troponin High Sensitivity 27.5 pg/mL (<58.9)
[2024-07-23 00:54] LABS: AST/SGOT < 10 U/L (15-37); Bilirubin Direct < 0.2 mg/dL (0-0.2); Bilirubin Indirect, Calculated 0.2 mg/dL (0.2-0.8)
[2024-07-23] MEDS ORDERED: METOCLOPRAMIDE 10 MG/2mL INJ ONE (00:57)
[2024-07-23] MEDS ORDERED: DIPHENHYDRAMINE 50 MG/ML VIAL ONE (00:57)
[2024-07-23] MEDS ORDERED: droPERidol 5 MG/2 ML VIAL ONE (00:57)
[2024-07-23] MEDS ORDERED: POTASSIUM 25 MEQ EFFERV TAB ONE (01:51)
--- NOTE | 2024-07-23 05:09 | ER ---
Nurse's Notes [facility] Name: Skye Song Age: 49 yrs Sex: Female : 1975 Arrival Date: 07/22/2024 Time: 23:23 Bed 17 Private MD: Diagnosis: Acute right lateral headache,, chronic C3 compression fracture;UTI/ Urinary tract infection, site not specified Presentation: 07/22 23:38 Chief complaint: Patient states: headache to right side of head that radiates to right br2 shoulder (burning). that began 1 hr ago, intermittent blurry vision , dizziness . s/p brain tumor 3years ago due to a tumor, and was told she has a small tumor that is just being watched. Coronavirus screen: Client denies travel out of the [place] in the last 14 days. Ebola Screen: Patient denies exposure to infectious person. Initial Sepsis Screen: Does the patient meet any 2 criteria? No. Patient's initial sepsis screen is negative. Does the patient have a suspected source of infection? No. Patient's initial sepsis screen is negative. Risk Assessment: Do you want to hurt yourself or someone else? Patient reports no desire to harm self or others. Onset of symptoms was July 22, 2024 at 22:45. 23:38 Method Of Arrival: Ambulatory br2 23:38 Acuity: NIDA 3 br2 Triage Assessment: 23:42 General: Behavior is calm, cooperative. br2 07/23 01:11 General: Appears. br2 Historical: - Allergies: 07/22 23:42 tramadol; br2 23:42 pecan; br2 23:42 Naproxen; br2 23:42 Iodine; br2 - PMHx: 23:42 a flutter; Anxiety; BRAIN TUMOR; graves disease; Hydrocephalus; Migraines; Seizures; br2 - PSHx: 23:42 Appendectomy; Brain sx; Cholecystectomy; MEN'S CUSTOM HAIR PIECE CONSULTANT shunt; eye sx; br2 - Immunization history:: Adult Immunizations up to date. - Infectious Disease History:: Denies. - Social history:: Smoking status: Patient denies any tobacco usage or history of. Patient uses alcohol, Patient/guardian denies using street drugs. Screenin:42 [facility] ED Fall Risk Assessment (Adult) History of falling in the last 3 months, br2 including since admission No falls in past 3 months (0 pts) Confusion or Disorientation No (0 pts) Intoxicated or Sedated No (0 pts) Impaired Gait No (0 pts) Mobility Assist Device Used No (0 pt) Altered Elimination No (0 pt) Score/Fall Risk Level 0 - 2 = Low Risk Oriented to surroundings. Abuse screen: Denies threats or abuse. Denies injuries from another. Nutritional screening: No deficits noted. Tuberculosis screening: No symptoms or risk factors identified. Assessment: 07/23 01:57 Reassessment: Patient and/or family updated on plan of care and expected duration. Pain br2 level reassessed. Patient is alert, oriented x 3, equal unlabored respirations, skin warm/dry/pink. Patient states feeling better. Patient states symptoms have improved. 03:11 Reassessment: Patient and/or family updated on plan of care and expected duration. Pain br2 level reassessed. Patient is alert, oriented x 3, equal unlabored respirations, skin warm/dry/pink. Patient states feeling better. Patient states symptoms have improved. Vital Signs: 07/22 23:42 BP 152 / 78; Pulse 101; Resp 18; Temp 97.2; Pulse Ox 96% on R/A; Weight 113.4 kg; br2 Height 5 ft. 4 in. ; Pain 9/10; 07/23 01:10 BP 108 / 66; Pulse 77; Resp 18 S; Pulse Ox 99% on R/A; br2 03:12 Pulse 64; Resp 18 S; Pulse Ox 92% on R/A; br2 04:27 Pulse 69; br2 05:17 BP 100 / 56; Pulse 61; Resp 18 S; Pulse Ox 95% on R/A; Pain 1/10; br2 07/22 23:42 Body Mass Index 42.91 (113.40 kg, 162.56 cm) br2 07/22 23:42 Pain Scale: Adult br2 05:17 Pain Scale: Adult br2 Prudence Coma Score: 05:06 Eye Response: spontaneous(4). Motor Response: obeys commands(6). Verbal Response: sp4 oriented(5). Total: 15. ED Course: 07/22 23:27 Patient arrived in ED. [id number] 23:33 Gallito Kincaid PA is PHCP. cp 23:33 Aniket Mcleod MD is Attending Physician. cp 23:42 Triage completed. br2 23:42 Bed in low position. Call light in reach. Side rails up X 1. Provided Education on: br2 plan of care. 23:42 Arm band placed on right wrist. br2 04 00:30 Inserted saline lock: 20 gauge in right antecubital area, using aseptic technique. br2 Blood collected. Flushed with 10 mL NS. 00:43 Shuntogram XRAY In Process Unspecified. EDMS 00:55 Juany Giles, CALEB is Primary Nurse. br2 01:17 CT Head C Spine In Process Unspecified. EDMS 05:17 No provider procedures requiring assistance completed. IV discontinued, intact, br2 bleeding controlled, No redness/swelling at site. Pressure dressing applied. Administered Medications: 01:05 Drug: Droperidol IVP 1.25 mg IVP once Route: IVP; Site: right antecubital; br2 02:55 Follow up: Response: No adverse reaction br2 01:06 Drug: metoCLOPramide IVP 10 mg IVP once; over 1 to 2 minutes Route: IVP; Site: right br2 antecubital; 02:00 Follow up: Response: No adverse reaction br2 01:06 Drug: diphenhydrAMINE IVP 25 mg IVP once Route: IVP; Site: right antecubital; br2 02:55 Follow up: Response: No adverse reaction br2 01:57 Drug: Potassium PO Effervescent Tablet 50 mEq PO once; dissolve in 4 ounces of water or br2 juice Route: PO; 02:55 Follow up: Response: No adverse reaction br2 Outcome: 05:08 Discharge ordered by . sp4 05:17 Discharged to home ambulatory, br2 05:17 Condition: improved 05:17 Discharge instructions given to patient, Instructed on discharge instructions, Demonstrated understanding of instructions, follow-up care, medications, Prescriptions given X 2, 05:18 Patient left the ED. br2 Signatures: Dispatcher [employer] EDMS Gallito Kincaid PA PA cp Jeffries, Jennifer [id number] Aniket Mcleod MD MD sp4 Riddle, Belinda, RN RN br2 Corrections: (The following items were deleted from the chart) 07/22 23:45 23:38 Chief complaint: Patient states: headache to right side of head that began 1 hr br2 ago, intermittent blurry vision , dizziness . s/p brain tumor 3years ago due to a tumor br2
--- NOTE | 2024-07-23 05:09 | EDPHYS ---
Physician Documentation [facility] Name: Skye Song Age: 49 yrs Sex: Female : 1975 Arrival Date: 07/22/2024 Time: 23:23 Bed 17 Private MD: ED Physician Aniket Mcleod HPI: 07/22 23:50 This 49 yrs old Female presents to ER via Ambulatory with complaints of Headache, PT cp STATES HER HEAD IS SWELLING, Blurred Vision, Dizziness. 23:50 The patient complains of pain to the right side of head. cp 23:50 The patient describes the headache as constant, burning. cp 23:50 Onset: The symptoms/episode began/occurred 1 hour(s) ago. Associated signs and cp symptoms: Pertinent positives: nausea, neck pain and bilateral shoulder pain. patient reports blurry vision for months that is worse with headache. 23:50 Severity of symptoms: in the emergency department the pain is unchanged, despite home cp interventions. Headache History: Other hx of migraines, hx of SAWMILL TALLY CLERK shunt placed as child with revision, hx of brain tumor with removal 3 years ago and hx of brain tumor that was not removed. Historical: - Allergies: 23:42 tramadol; br2 23:42 pecan; br2 23:42 Naproxen; br2 23:42 Iodine; br2 - PMHx: 23:42 a flutter; Anxiety; BRAIN TUMOR; graves disease; Hydrocephalus; Migraines; Seizures; br2 - PSHx: 23:42 Appendectomy; Brain sx; Cholecystectomy; SAWMILL TALLY CLERK shunt; eye sx; br2 - Immunization history:: Adult Immunizations up to date. - Infectious Disease History:: Denies. - Social history:: Smoking status: Patient denies any tobacco usage or history of. Patient uses alcohol, Patient/guardian denies using street drugs. ROS: 23:55 Constitutional: Negative for body aches, chills, fever, poor PO intake, cp 23:55 ENT: Negative for injury, pain, and discharge, cp 23:55 Eyes: Positive for blurry vision, 23:55 Neck: Positive for pain at rest, tenderness, 23:55 Cardiovascular: Negative for chest pain, edema, palpitations, 23:55 Respiratory: Negative for cough, shortness of breath, wheezing, 23:55 Abdomen/GI: Positive for nausea, Negative for abdominal pain, vomiting, diarrhea, constipation, 23:55 Neuro: Positive for headache, Negative for altered mental status, numbness, syncope, near syncope, weakness, 23:55 All other systems are negative, Exam: 07/23 00:00 Constitutional: The patient appears in no acute distress, alert, awake, cp non-diaphoretic, non-toxic, well developed, well nourished, uncomfortable, 00:00 Head/Face: Normocephalic, atraumatic. cp 00:00 Eyes: Periorbital structures: appear normal, Pupils: equal, round, and reactive to light and accomodation, Extraocular movements: intact throughout, Conjunctiva: normal, no exudate, no injection, Sclera: no appreciated abnormality, Lids and lashes: appear normal, bilaterally, 00:00 ENT: External ear(s): are unremarkable, Nose: is normal, Mouth: Lips: moist, Oral mucosa: moist, Posterior pharynx: Airway: no evidence of obstruction, patent, 00:00 Neck: ROM/movement: limited range of motion, is not appreciated, Meningeal signs: are not present, nuchal rigidity, is not appreciated, 00:00 Chest/axilla: Inspection: normal, 00:00 Cardiovascular: Rate: normal, Rhythm: regular, 00:00 Respiratory: the patient does not display signs of respiratory distress, Respirations: normal, no use of accessory muscles, no retractions, labored breathing, is not present, Breath sounds: are clear throughout, no decreased breath sounds, no stridor, no wheezing, 00:00 Abdomen/GI: Exam negative for discomfort, distension, guarding, Inspection: abdomen appears normal, 00:00 Neuro: Orientation: to person, place \T\ time. Mentation: is normal, Cerebellar function: Romberg testing is negative, Motor: moves all fours, strength is normal, Sensation: no obvious gross deficits, Gait: is steady, 00:53 ECG was reviewed by the Attending Physician. cp Vital Signs: 07/22 23:42 BP 152 / 78; Pulse 101; Resp 18; Temp 97.2; Pulse Ox 96% on R/A; Weight 113.4 kg; br2 Height 5 ft. 4 in. ; Pain 9/10; 07/23 01:10 BP 108 / 66; Pulse 77; Resp 18 S; Pulse Ox 99% on R/A; br2 03:12 Pulse 64; Resp 18 S; Pulse Ox 92% on R/A; br2 04:27 Pulse 69; br2 05:17 BP 100 / 56; Pulse 61; Resp 18 S; Pulse Ox 95% on R/A; Pain 1/10; br2 07/22 23:42 Body Mass Index 42.91 (113.40 kg, 162.56 cm) br2 07/22 23:42 Pain Scale: Adult br2 05:17 Pain Scale: Adult br2 Prudence Coma Score: 05:06 Eye Response: spontaneous(4). Motor Response: obeys commands(6). Verbal Response: sp4 oriented(5). Total: 15. MDM: 07/22 23:38 Medical Screening Exam initiated cp 07/23 04:57 ED course: EXAM: CT Head and Cervical Spine Without Intravenous Contrast CLINICAL sp4 HISTORY: The patient is 49 years old and is Female; headache,neck pain TECHNIQUE: Axial computed tomography images of the head/brain and cervical spine without intravenous contrast. Sagittal and coronal reformatted images were created and reviewed. This CT exam was performed using one or more of the following dose reduction techniques: automated exposure control, adjustment of the mA and/or kV according to patient size, and/or use of iterative reconstruction technique. COMPARISON: No relevant prior studies available. FINDINGS: Brain: Unremarkable. No hemorrhage. No significant white matter disease. No edema. Ventricles: Dilated fourth ventricle, similar to prior. Skull: Air-fluid level in the right maxillary sinus. Prior right parietal craniotomy. No acute fracture. Sinuses: See above. Mastoid air cells: Unremarkable as visualized. No mastoid effusion. Vertebrae: Indeterminate age compression deformity at C3 with 50% vertebral body height loss. Discs/spinal canal/neural foramina: Severe left neural foraminal narrowing at C3-4. Soft tissues: Unremarkable. Tubes, lines and devices: Right posterior SAWMILL TALLY CLERK shunt with tip in the posterior right lateral ventricle. IMPRESSION: 1. No acute intracranial abnormality. 2. Indeterminate age compression deformity at C3 with 50% vertebral body height loss.. 05:06 Differential diagnosis: cluster headache, hypoglycemia, migraine, sinusitis, tension sp4 headache. Data reviewed: vital signs, nurses notes, old medical records, lab test result(s), radiologic studies, CT scan, plain films. Consideration of Admission/Observation Escalation of care including admission/observation considered. ED course: CT has no acute findings. Patient stable for discharge home.. 07/22 23:46 Order name: Basic Metabolic Panel; Complete Time: 00:55 cp 07/23 00:55 Interpretation: Normal except: NA 134; K 3.1; GLUC 112; GFR 75. cp 07/22 23:46 Order name: CBC with Diff; Complete Time: 00:36 cp 07/23 00:37 Interpretation: Normal except: WBC 12.00; RBC 5.69; HGB 15.3; MCV 78.8; MCH 26.8; PLT cp 432; MPV 7.2. 07/22 23:46 Order name: LFT's; Complete Time: 00:55 cp 07/22 23:46 Order name: Magnesium; Complete Time: 00:55 cp 07/22 23:46 Order name: PT-INR; Complete Time: 00:53 cp 07/22 23:46 Order name: Troponin HS; Complete Time: 00:55 cp 07/22 23:46 Order name: Urinalysis W/Microscopic; Complete Time: 00:53 cp 07/23 00:53 Interpretation: Normal except: [facility] Extremely Turbid; UESTR 75; UWBC 10-20; SQEPI 20-50.cp 07/22 23:46 Order name: Test, Urine; Complete Time: 03:07 cp 07/23 03:07 Interpretation: Reviewed. cp 07/22 23:46 Order name: Shuntogram XRAY cp 07/23 00:38 Order name: CT Head C Spine cp 07/22 23:46 Order name: Cardiac monitoring; Complete Time: 00:49 cp 07/22 23:46 Order name: EKG - Nurse/Tech; Complete Time: 00:50 cp 07/22 23:46 Order name: IV Saline Lock; Complete Time: 01:44 cp 07/22 23:46 Order name: Labs collected and sent; Complete Time: 01:44 cp 07/22 23:46 Order name: O2 Per Protocol; Complete Time: 00:50 cp 07/22 23:46 Order name: O2 Sat Monitoring; Complete Time: 00:50 cp EC:53 Rate is 68 beats/min. Rhythm is regular. IN interval is normal. QRS interval is normal. cp QT interval is normal. T waves are Inverted in lead aVR. Interpreted by me. Reviewed by me. Administered Medications: 01:05 Drug: Droperidol IVP 1.25 mg IVP once Route: IVP; Site: right antecubital; br2 02:55 Follow up: Response: No adverse reaction br2 01:06 Drug: metoCLOPramide IVP 10 mg IVP once; over 1 to 2 minutes Route: IVP; Site: right br2 antecubital; 02:00 Follow up: Response: No adverse reaction br2 01:06 Drug: diphenhydrAMINE IVP 25 mg IVP once Route: IVP; Site: right antecubital; br2 02:55 Follow up: Response: No adverse reaction br2 01:57 Drug: Potassium PO Effervescent Tablet 50 mEq PO once; dissolve in 4 ounces of water or br2 juice Route: PO; 02:55 Follow up: Response: No adverse reaction br2 Disposition: 05:05 Co-signature as Attending Physician, Aniket Mcleod MD I agree with the assessment sp4 and plan of care. I reviewed the patient's care provided by Advanced Practice Provider \T\ agree w/ the diagnosis \T\ care plan. I personally saw the pt \T\ performed a substantive portion of the visit, incldng all aspects of the (History/Exam/Medical Decision Making). Disposition Summary: 07/23/24 05:08 Discharge Ordered Notes: Location: Home sp4 Problem: new sp4 Symptoms: have improved sp4 Condition: Stable sp4 Diagnosis - Acute right lateral headache,, chronic C3 compression fracture sp4 - UTI/ Urinary tract infection, site not specified sp4 Followup: sp4 - With: Private Physician - When: 7 - 10 days - Reason: Recheck today's complaints Discharge Instructions: - Discharge Summary Sheet sp4 - General Headache Without Cause, Upcd-vy-Pllm sp4 Forms: - Patient Portal Instructions sp4 Prescriptions: - Fioricet 50-300-40 mg Oral capsule - take 1 capsule ORAL route every 8 hours PRN headache; 30 capsule; Refills: 0, sp4 Product Selection Permitted - Cephalexin 500 mg Oral Capsule - take 1 capsule ORAL route every 12 hours for 10 days; 20 capsule; Refills: 0, sp4 Product Selection Permitted Signatures: Dispatcher [employer] EDWI Galliot Kincaid PA PA cp Potepalov, Sergey, MD MD sp4 Juany Giles, RN RN br2 Corrections: (The following items were deleted from the chart) 07/22 23:46 23:46 Shuntogram+RAD.RAD.BRZ ordered. EDMS EDMS 23:47 23:47 BASIC METABOLIC PANEL+C.LAB.BRZ ordered. EDMS EDMS 23:47 23:47 CBC+H.LAB.BRZ ordered. EDMS EDMS 23:47 23:47 HEPATIC FUNCTION+C.LAB.BRZ ordered. EDMS EDMS 23:47 23:47 MAGNESIUM+C.LAB.BRZ ordered. EDMS EDMS 23:47 23:47 PROTIME (+INR)+COAG.LAB.BRZ ordered. EDMS EDMS 23:47 23:47 Troponin High Sensitivity+C.LAB.BRZ ordered. EDMS EDMS 23:47 23:47 Urinalysis W/Microscopic+U.LAB.BRZ ordered. EDMS EDMS 23:47 23:47 Test, Urine+UC.LAB.BRZ ordered. EDMS EDMS 07/23 00:39 00:39 Head C Spine MPR Wo Con+CT.RAD.BRZ ordered. EDMS EDMS 19:27 07/22 23:50 The patient describes the headache as aching, cp cp
--- NOTE | 2024-07-23 05:39 | RAD REPORT ---
EXAM: CT Head and Cervical Spine Without Intravenous Contrast CLINICAL HISTORY: The patient is 49 years old and is Female; headache,neck pain TECHNIQUE: Axial computed tomography images of the head/brain and cervical spine without intravenou s contrast. Sagittal and coronal reformatted images were created and reviewed. This CT exam was performed using one or more of the following dose reduction techniques: automated exposure control, adjustment of the mA and/or kV according to patient size, and/or use of iterative reconstruction technique. COMPARISON: No relevant prior studies available. FINDINGS: Brain: Unremarkable. No hemorrhage. No significant white matter disease. No edema. Ventricles: Dilated fourth ventricle, similar to prior. Skull: Air-fluid level in the right maxillary sinus. Prior right parietal craniotomy. No acute fracture. Sinuses: See above. Mastoid air cells: Unremarkable as visualized. No mastoid effusion. Vertebrae: Indeterminate age compression deformity at C3 with 50% vertebral body height loss. Discs/spinal canal/neural foramina: Severe left neural foraminal narrowing at C3-4. Soft tissues: Unremarkable. Tubes, lines and devices: Right posterior DECKER OPERATOR shunt with tip in the posterior right lateral ventri britt. IMPRESSION: 1. No acute intracranial abnormality. 2. Indeterminate age compression deformity at C3 with 50% vertebral body height loss. Electronically signed by: Jose Luis Valdes MD 07/23/2024 04:39 AM CDT 8 Due to temporary technical issues with the PACS/[employer] reporting system, reports are being nghia d by the in-house radiologist without review as a courtesy to ensure prompt reporting the interpreting radiologist is fully responsible for the content of the report. Transcribed Date/Time: 07/23/2024 5:38 AM
[2024-07-23 05:46] VITALS: TEMP 97.2
[2024-07-23 06:05] VITALS: BP 100/56; O2SAT 95
--- NOTE | 2024-07-23 06:37 | RAD REPORT ---
EXAM: XR Fl Guided Injection Non-Vascular Shunt CLINICAL HISTORY: The patient is 49 years old and is Female; headache TECHNIQUE: X-ray fl guided injection non-vascular shunt. COMPARISON: No relevant prior studies available. FINDINGS: Right parietal PRODUCT DIRECTOR shunt catheter with tip overlying the pelvis. No discontinuity identified. IMPRESSION: No acute finding. Electronically signed by: Jose Luis Valdes MD 07/23/2024 06:33 AM CDT RP 8 Due to temporary technical issues with the PACS/[employer] reporting system, reports are being nghia d by the in-house radiologist without review as a courtesy to ensure prompt reporting the interpreting radiologist is fully responsible for the content of the report. Transcribed Date/Time: 07/23/2024 6:36 AM
--- NOTE | 2024-07-25 12:45 | EKG ---
Test Date: 2024-07-23 Test Time: 00:46:24 Tractor Operator Laser Leveling: NINFA MEASUREMENT RESULTS: Intervals: Rate: 68 HI: 178 QRSD: 84 QT: 410 QTc: 435 [place]: P: 37 HI: 178 QRS: 51 T: 32 INTERPRETIVE STATEMENTS: Normal sinus rhythm Normal ECG Compared to ECG 02/06/2024 12:54:14 No significant changes Electronically Signed On 07-25-24 12:39:58 CDT by Medhi Kelley
== END 2024-07-23 05:18 | disposition home or self-care (01) ==
LOC: ER 23:23
DX: R51.9 Headache, unspecified (principal); N39.0 Urinary tract infection, site not specified; S32.030A Wedge compression fracture of third lumbar vertebra, initial encounter for closed fracture; Z98.2 Presence of cerebrospinal fluid drainage device
CPT/HCPCS: 93005; 85025; 81001; 80048; 36415; 83735; 81025; 85610; 80076; 84484; 70450; 72125; 75809; 49427; 96375; 96374; 99284; J2765; J1200; J1790